=== PATIENT | male | born 1945 | race Caucasian/White ===

== ENCOUNTER 2023-05-19 08:14 | Outpatient (OUT) | payer MEDICARE, SELFPAY ==
[2023-05-19 10:02] LABS: Alanine Aminotransferase 73 U/L (16-63); Albumin Level 3.7 g/dL (3.4-5.0); Alkaline Phosphatase 58 U/L (46-116); Anion Gap 12.4; Aspartate Amino Transferase 28 U/L (15-37); BUN Creatinine Ratio 13.7; Bilirubin Total 0.7 mg/dL (0.2-1.0); Calcium 8.9 mg/dL (8.5-10.1); Carbon Dioxide 27.9 mmol/L (21.0-32.0); Chloride 98 mmol/L (98-107); Chol HDL Ratio 2.6; Cholesterol 135 mg/dL (<=200); Estimated GFR (African America 39 (>=60); Estimated GFR (Non-African Ame 32 (>=60); Globulin 3.8 g/dL; Glucose 109 mg/dL (74-106); HDL Cholesterol 51 mg/dL (40-60); LDL Cholesterol Calculated 61.2 mg/dL; Potassium 4.3 mmol/L (3.5-5.1); Sodium 134 mmol/L (136-145); Thyroid Stimulating Hormone 1.732 uIU/mL (0.358-3.740); Total Protein 7.5 g/dL (6.4-8.2); Triglycerides 114 mg/dL (<=150); VLDL CHOLESTEROL 22.8 mg/dL
== END 2023-05-19 08:15 | disposition home or self-care (01) ==
LOC: LAB 08:18
PROVIDERS: PCP Family Medicine; Visit Provider Family Medicine
DX: R25.1 Tremor, unspecified (principal); I10 Essential (primary) hypertension; E78.5 Hyperlipidemia, unspecified
CPT/HCPCS: 36415; 80053; 80061; 84443

== ENCOUNTER 2024-03-04 07:08 | Outpatient (RCR) | payer MEDICARE, SELFPAY ==
--- NOTE | 2024-01-07 09:39 | CR1_ITS ---
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
--- NOTE | 2024-01-11 13:30 | CR1_ITS ---
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
--- NOTE | 2024-02-09 08:46 | CR1_ITS ---
The 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
--- NOTE | 2024-02-09 13:26 | PC.NURSE ---
called and spoke with patient. stated he was seen in the er for dehydration and abnormal electrolytes after I fell down again. patient states he is using a walker but is feeling better and plans to be here tomorrow. will follow up again if patient does not attend.
--- NOTE | 2024-02-17 14:33 | PC.NURSE ---
Patient reported feeling light headed and dizzy this morning. Per his and his wifes report his blood pressure was 76/38 and he took his blood pressure medication following this result. Patient states he has not been feeling well and has had multiple falls lately. His states his systolic number is always less than 100. Patient's states she does not know which medications were for what, and so she was provided with a list of his medications per their last report, the dosage they provided and the purpose of the medication prior to them leaving today. I also called [facility] and left a voicemail with their staff for the doctor regarding his blood pressure, the medications and the patients request for parameters on when to hold the medication. Patient and will continue to monitor his blood pressures at home and keep a record.
--- NOTE | 2024-04-08 07:21 | CR1_ITS ---
The 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
--- NOTE | 2024-05-09 07:41 | CR1_ITS ---
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
--- NOTE | 2024-06-06 14:37 | PC.NURSE ---
called patients to follow up. She states he remains in [facility] at this [facility]. at this point we will discharge the patient and informed the patients spouse he is welcome to return if he gets discharged from the residential facility he just needs to call and schedule an orientation appointment
--- NOTE | 2024-06-06 14:51 | CR1_ITS ---
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
== END 2024-06-06 14:50 | disposition home or self-care (01) ==
LOC: CR 07:08
PROVIDERS: PCP Family Medicine; Visit Provider Internal Medicine Cardiovascular Disease
DX: I50.22 Chronic systolic (congestive) heart failure (principal); I25.2 Old myocardial infarction; I50.30 Unspecified diastolic (congestive) heart failure
CPT/HCPCS: 93798

== ENCOUNTER 2024-04-30 20:33 | Emergency (ER) | payer MEDICARE, SELFPAY ==
[2024-04-30] VITALS (26 sets, daily range): BP systolic 71–96; BP diastolic 38–50; PULSE 60–66; TEMP 39.2; O2SAT 85–99; BMI 31.6
--- NOTE | 2024-04-30 20:39 | CT_ITS ---
The [address] [address] Patient Name: SHAWNA GALVEZ MRN: [id number] date: 1945 Sex: M Assigned Patient Location: ER Current Patient Location: ER Accession/Order Number: [id number] Exam Date: 04/30/2024 21:35 Report Date: 04/30/2024 22:21 At the request of: ERIK JOHNS Procedure: CT abdomen pelvis w con EXAM: CT abdomen pelvis w con HISTORY: hypotension, perc-choley tube with blood COMPARISON: None. TECHNIQUE: Multiple axial images of the abdomen and pelvis are obtained following the administration of contrast material. Coronal and sagittal reformatted sequences are submitted FINDINGS: Tiny right pleural effusion is seen with bibasilar atelectasis. Mild cardiomegaly is seen. Percutaneous nephrostomy tube is seen in place. Mild gallbladder wall thickening/pericholecystic fluid is seen, suggestive of infectious/inflammatory process and cystitis. Mild high density is seen within the gallbladder which may represent sludge versus hemorrhagic products. Images through the abdomen are limited due to streak artifact liver, spleen, pancreas and bilateral adrenal glands appear grossly unremarkable. Low densities are seen in the right kidney, which can be better characterized with ultrasound, but which CT appearance can be seen with cystic structures. Bilateral kidneys demonstrate normal size, morphology and contrast enhancement. There is no evidence for hydronephrosis bilaterally. Bejarano catheter is seen within the nondistended urinary bladder. Mild wall thickening of the urinary bladder is suspected, which may represent mild inflammatory process. Please correlate clinically. Nonobstructive bowel pattern is seen. Normal-appearing appendix is visualized. Mild wall thickening of the ascending colon is seen, suspicious for mild colitis. Sigmoid diverticula are seen without significant associated inflammatory changes. No significant free fluid or abnormal fluid collection is seen in the abdomen and pelvis mild aortic and iliac arterial calcifications. Aneurysmal dilatation. Abdominal wall and visualized soft tissues appear unremarkable. No destructive osseous lesion is seen. Mild multilevel degenerative changes of the visualized thoracolumbar spine is seen. CT/CT abdomen pelvis w con IMPRESSION: Percutaneous nephrostomy tube is seen in place. Mild gallbladder wall thickening/pericholecystic fluid is seen, suggestive of infectious/inflammatory process and cystitis. Mild high density is seen within the gallbladder which may represent sludge versus hemorrhagic products. Bejarano catheter is seen within the nondistended urinary bladder. Mild wall thickening of the urinary bladder is suspected, which may represent mild inflammatory process. Please correlate clinically. Mild wall thickening of the ascending colon, suggestive of mild colitis. Sigmoid diverticulosis without CT evidence for diverticulitis. Tiny right pleural effusion with mild bibasilar atelectasis. Electronically authenticated by: CARINA NUR Date: 04/30/2024 22:21
--- NOTE | 2024-04-30 20:42 | ECG_ITS ---
The [facility] Test Date: 2024-04-30 Pat Name: SHAWNA GALVEZ Department: Room: - Gender: Male Circulation Manager: : 1945 Requested By: [id number] Order Number: [id number] Reading MD: MAX ANG Measurements Intervals E[place] Rate: 60 P: -60 NC: 196 QRS: 21 QRSD: 128 T: 150 QT: 374 QTc: 374 Interpretive Statements [id number] Electronic atrial pacemaker 57329 Electronic ventricular pacemaker 9120 atypical ECG Electronically Signed On 05-01-2024 7:54:53 EDT by MAX ANG
--- NOTE | 2024-04-30 20:51 | CT_ITS ---
The [address] [address] Patient Name: SHAWNA GALVEZ MRN: [id number] date: 1945 Sex: M Assigned Patient Location: ER Current Patient Location: ER Accession/Order Number: [id number] Exam Date: 04/30/2024 21:35 Report Date: 04/30/2024 22:15 At the request of: ERIK JOHNS Procedure: CT chest w con EXAM: CT chest w con HISTORY: hypotension COMPARISON: None. TECHNIQUE: Multiple axial images of the chest are obtained following the administration of IV contrast. Coronal and sagittal reformatted sequences are submitted FINDINGS: Mild cardiomegaly is seen. There is no evidence for pericardial effusion. Coronary arterial calcification is seen. Tiny right pleural effusion is seen. There is no evidence for pneumothorax. Atelectasis is seen no significant enlarged hilar, mediastinal or axillary adenopathy is The thoracic aorta is normal in course and caliber. Visualized. The visualized chest wall appears unremarkable. Mild multilevel degenerative changes of the thoracic spine is seen. CT/CT chest w con IMPRESSION: Tiny right pleural effusion is seen with bibasilar atelectasis. Electronically authenticated by: CARINA NUR Date: 04/30/2024 22:15
[2024-04-30] MEDS: ACETAMINOPHEN 650 MG RECTAL SUPPOSITORY PR (21:00)
[2024-04-30 21:14] LABS: Hemoglobin 11.6 g/dL (14.0-18.0); Mean Corpuscular HGB Conc 32.2 g/dL (29.9-35.2); Mean Corpuscular Hemoglobin 32.9 pg (25.9-34.0); Mean Platelet Volume 11.2 fL (9.5-13.5); Platelet Count 205 10^3/uL (150-450); Red Blood Count 3.53 10^6/uL (4.70-6.10); Red Cell Distribution Width 14.2 % (11.0-15.0); White Blood Count 17.2 10^3/uL (4.0-11.0)
[2024-04-30 21:31] LABS: ABG PCO2 34.5 mmHg (35.0-45.0); pH ABG 7.421 (7.350-7.450)
[2024-04-30 21:32] LABS: Allen Test POSITIVE (POSITIVE); HCO3 ABG 22.4 mmol/L (22.0-26.0); Liters per Minute 3L; O2 Mode Nasal cannula; Oxygen Saturation ABG 98.4 %; Puncture Site LR
[2024-04-30 21:32] LABS: INR 1.19; Partial Thromboplastin Time 27.1 sec (22.3-36.2); Prothrombin Time 12.4 sec (9.0-11.6)
--- NOTE | 2024-04-30 21:32 | ED.GENADUL1 ---
HPI HPI - General Adult General Chief complaint: GI Bleed Stated complaint: LOW BLOOD PRESSURE Time Seen by Provider: 04/30/24 20:37 Source information: EMS and report from nurse at the [facility] Mode of arrival: ambulance Limitations: other Limitations comment: Pt speaking very softly unable to hear History of Present Illness HPI narrative: 79-year-old male to the emergency department with chief complaint of hypotension, bleeding into his percutaneous cholecystostomy tube, fever. Patient has never been to this facility before. group home reported that he came from [facility] approximately 1 month ago. Patient cannot provide any history. Discharge summary from [facility] was obtained via [employer]. It paints the picture of a very sickly elderly male who was unable to undergo cholecystectomy due to his multiple medical comorbidities. He had a PCT placement on 03/22 with interventional radiology. His course was complicated by his severe heart failure and hypotension. He was placed SNF on a course of Augmentin for E. coli in the PCT bag. Past medical history: CKD stage IIIb. Hypertension, atrial fibrillation, CHF with ejection fraction 15 to 20%, CAD status post PCI, ischemic cardiomyopathy, COPD Related Data Home Medications ?Medication ?Instructions ?Recorded ?Confirmed amiodarone 200 mg tablet 200 mg PO ONCE 04/30/24 05/01/24 atorvastatin 80 mg tablet 80 mg PO BEDTIME 04/30/24 05/01/24 bumetanide 1 mg tablet 0.5 mg PO ONCE 04/30/24 05/01/24 carvedilol 25 mg tablet 12.5 mg PO .TWICE 04/30/24 05/01/24 clopidogrel 75 mg tablet 75 mg PO ONCE 04/30/24 05/01/24 empagliflozin 10 mg tablet 10 mg PO ONCE 04/30/24 05/01/24 (Jardiance) levothyroxine 50 mcg tablet 50 mcg PO ONCE 04/30/24 05/01/24 magnesium oxide 400 mg (241.3 mg 400 mg PO ONCE 04/30/24 05/01/24 magnesium) tablet mexiletine 150 mg capsule 150 mg PO TID 04/30/24 05/01/24 pantoprazole 40 mg tablet,delayed 40 mg PO TID 04/30/24 05/01/24 release sacubitril 97 mg-valsartan 103 mg 1 tab PO TID 04/30/24 05/01/24 tablet (Entresto) spironolactone 25 mg tablet 25 mg PO ONCE 04/30/24 05/01/24 acetaminophen 500 mg capsule 500 mg PO Q8H PRN prn 05/01/24 05/01/24 calcium carbonate (Tums) 200 mg PO TID PRN PRN 05/01/24 05/01/24 ipratropium 0.5 mg-albuterol 3 mg 0.5 - 3 ml inhalation Q4H PRN prn 05/01/24 05/01/24 (2.5 mg base)/3 mL nebulization soln melatonin 3 mg capsule 1 mg PO BEDTIME 05/01/24 05/01/24 mupirocin 2 % topical ointment 1 applic topical TID 05/01/24 05/01/24 ondansetron 4 mg disintegrating 4 mg PO Q8H PRN PRN 05/01/24 05/01/24 tablet tramadol 50 mg tablet 50 mg PO BID PRN PRN 05/01/24 05/01/24 Allergies Allergy/AdvReac Type Severity Reaction Status Date / Time No Known Drug Allergies Allergy Verified 04/30/24 21:25 Opioid HPI Opioid Management Most Recent Opioid Data: No Data to Display Review of Systems ROS Status of ROS unobtainable due to medical condition Exam Narrative Exam Narrative: VITALS: I have reviewed the triage vital signs. GENERAL: Chronically ill-appearing elderly male in no distress NEURO: Alert and oriented x1. Moves all extremities. Face is symmetric and expressive. EYES: PERRL. No scleral icterus or conjunctival injection. No discharge. HENT: Normocephalic, atraumatic. Hearing is grossly intact. Nares grossly patent and without discharge. Mucous membranes dry. NECK: No JVD. Patient moves neck without restriction. CARDIO: Rhythm regular. Normal rate. No murmur, rub, or gallop. Pulses equal bilaterally in the upper and lower extremity. No lower extremity edema. PULM: Lungs clear to auscultation in all gleason. No wheezes, rales, or rhonchi. No conversational dyspnea. No splinting, stridor, or accessory muscle use. GI/: Abdomen is soft and non-tender. Normoactive bowel sounds. PCT in RUQ, luna blood in the bag. EXTREMITIES: Symmetric muscle bulk. No joint swelling. No clubbing, cyanosis, or deformity. SKIN: Warm and dry. Normal turgor. No rash or lesions appreciated. PSYCH: Mood, affect, and interaction is appropriate to the setting. Constitutional Vital Signs, click to edit/add: Last Vital Signs Temp 102.5 F H 04/30/24 21:00 Pulse 60 05/01/24 05:00 Resp 19 05/01/24 05:00 BP 91/53 05/01/24 05:00 Pulse Ox 98 05/01/24 05:00 O2 Del Method Nasal Cannula 04/30/24 20:36 O2 Flow Rate 3 04/30/24 20:36 Course Vital Signs Vital signs: Vital Signs Temperature 102.6 F H 04/30/24 20:36 Pulse Rate 60 04/30/24 20:36 Respiratory Rate 14 04/30/24 20:36 Blood Pressure 71/39 L 04/30/24 20:36 Pulse Oximetry 96 04/30/24 20:36 Oxygen Delivery Method Nasal Cannula 04/30/24 20:36 Oxygen Delivery Flow Rate 3 04/30/24 20:36 Temperature 102.5 F H 04/30/24 21:00 Pulse Rate 60 05/01/24 05:00 Respiratory Rate 19 05/01/24 05:00 Blood Pressure 91/53 05/01/24 05:00 Pulse Oximetry 98 05/01/24 05:00 Oxygen Delivery Method Nasal Cannula 04/30/24 20:36 Oxygen Delivery Flow Rate 3 04/30/24 20:36 Medical Decision Making [facility] Narrative Medical decision making narrative: 79-year-old [facility] with fever, hypotension, altered mental status, blood in PCT. Hypotensive, febrile, otherwise stable vitals. EKG shows a paced rhythm, no evidence of ischemia. He is pale and diaphoretic. He does appear to be perfusing poorly. He is full code. Patient critically ill, concern for surgical abdomen. I know that the patient has CKD however the risks outweigh the benefits for IV contrast administration in the setting. He is full code. EMS had initiated a 1 L normal saline bolus on the patient. He was about fci through this liter upon arrival. Will continue with this 1 L bolus. He does have a significant leukocytosis at 17.2. His hemoglobin is at his baseline at 11.6. He has a mild lactic acidosis at 2.4. He has an elevated ALT AST alk phos and bilirubin. Troponin is normal. He is BNP is significantly elevated. Lipase is within normal limits. CT scan shows in place PCT. There is gallbladder wall thickening, pericholecystic fluid, amatory stranding. Hemorrhagic products in the gallbladder. Given his fever, altered mental status, septic shock I have concern for ascending cholangitis. Rocephin, Flagyl, vancomycin are ordered. Patient meets SIRS criteria. He had initial hypotension. Source is a ascending cholangitis. Sepsis fluid bolus was not given to this patient as he has a history of congestive heart failure and euvolemia is his goal which I believe he is at after 1L NS bolus. Early vasopressors were initiated with Levophed. Goal MAP 65. Sepsis tissue perfusion exam was performed at 2239. Levophed was titrated. Able to obtain MAP goals. Case was discussed via telephone with the braid pattern setter Dr. Georges at [facility] ICU. Patient was assigned bed however there is no critical care or ALS transport available in the region by flight or ground. Care was signed out to Dr. Naranjo while awaiting transport. Medical Records Medical records reviewed: Yes I reviewed the patient's medical records Lab Data Lab results reviewed: Yes I reviewed the patient's lab results Labs: Lab Results 04/30/24 04/30/24 05/01/24 Range/Units 20:38 21:00 00:05 WBC 17.2 H (4.0-11.0) 10^3/uL RBC 3.53 L (4.70-6.10) 10^6/uL Hgb 11.6 L (14.0-18.0) g/dL Hct 36.0 L (42.0-54.0) % MCV 102.0 H (80.0-94.0) fL MCH 32.9 (25.9-34.0) pg MCHC 32.2 (29.9-35.2) g/dL RDW 14.2 (11.0-15.0) % Plt Count 205 (150-450) 10^3/uL MPV 11.2 (9.5-13.5) fL Seg Neuts % (Manual) 95.0 H (43.0-75.0) Lymphocytes % (Manual) 1.0 L (20.5-60.0) % Monocytes % (Manual) 4.0 (1.7-12.0) % Eosinophils % (Manual) 0.0 L (0.9-7.0) % Basophils % (Manual) 0.0 L (0.2-2.0) % Neutrophils # (Manual) 16.34 H (1.4-6.5) 10^3/uL Lymphocytes # (Manual) 0.17 L (1.20-3.80) 10^3/uL Monocytes # (Manual) 0.68 (0.30-0.80) 10^3/uL Eosinophils # (Manual) 0.00 (0.00-0.70) 10^3/uL Basophils # (Manual) 0.00 (0.00-0.10) 10^3/uL PT 12.4 H (9.0-11.6) sec INR 1.19 APTT 27.1 (22.3-36.2) sec Puncture Site Lr ABG pH 7.421 (7.350-7.450) ABG pCO2 34.5 L (35.0-45.0) mmHg ABG pO2 101.0 H (80.0-100.0) mmHg ABG HCO3 22.4 (22.0-26.0) mmol/L ABG O2 Saturation 98.4 % ABG Base Excess -2.0 (-2.0-2.0) mmol/L Felipe Test Positive (POSITIVE) O2 Liters/Min 3l Sodium 135 L (136-145) mmol/L Potassium 3.6 (3.5-5.1) mmol/L Chloride 101 (98-107) mmol/L Carbon Dioxide 23.0 (21.0-32.0) mmol/L Anion Gap 14.6 BUN 24.0 H (7.0-18.0) mg/dL Creatinine 2.05 H (0.70-1.30) mg/dL Est GFR ( Amer) 38 L (>=60) Est GFR (Non-Af Amer) 32 L (>=60) BUN/Creatinine Ratio 11.7 Glucose 113 H (74-106) mg/dL Lactate 2.4 H* 2.2 H* (0.4-2.0) mmol/L Calcium 8.6 (8.5-10.1) mg/dL Total Bilirubin 2.0 H (0.2-1.0) mg/dL AST 218 H (15-37) U/L ALT 151 H (16-63) U/L Alkaline Phosphatase 174 H (46-116) U/L Troponin I High Sens 10.0 (4.0-76.1) pg/mL NT-Pro-B Natriuret Pep 2109.0 H* (<=1800.0) pg/mL Total Protein 5.8 L (6.4-8.2) g/dL Albumin 2.7 L (3.4-5.0) g/dL Globulin 3.1 g/dL Albumin/Globulin Ratio 0.9 Lipase 16.0 (16.0-77.0) U/L Urine Color (YELLOW) Urine Clarity (CLEAR) Urine pH (5.0-9.0) Ur Specific [place] (1.005-1.025) Urine Protein (NEG/TRACE) mg/dL Urine Glucose (UA) (NEGATIVE) mg/dL Urine Ketones (NEGATIVE) mg/dL Urine Occult Blood (NEGATIVE) Urine Nitrite (NEGATIVE) Urine Bilirubin (NEGATIVE) Urine Urobilinogen (0.2-1.0) EU/dL Ur Leukocyte Esterase (NEGATIVE) Urine RBC (0-2) #/HPF Urine WBC (NONE SEEN) #/HPF Ur Squamous Epith Cells (NONE/RARE) #/LPF Urine Crystals (None Seen) #/HPF Urine Bacteria (NONE SEEN) #/HPF Urine Casts (NONE SEEN) #/LPF Urine Mucus (NONE SEEN) Ur Culture Indicated? Blood Type A Positive Antibody Screen Negative 05/01/24 Range/Units 04:15 WBC (4.0-11.0) 10^3/uL RBC (4.70-6.10) 10^6/uL Hgb (14.0-18.0) g/dL Hct (42.0-54.0) % MCV (80.0-94.0) fL MCH (25.9-34.0) pg MCHC (29.9-35.2) g/dL RDW (11.0-15.0) % Plt Count (150-450) 10^3/uL MPV (9.5-13.5) fL Seg Neuts % (Manual) (43.0-75.0) Lymphocytes % (Manual) (20.5-60.0) % Monocytes % (Manual) (1.7-12.0) % Eosinophils % (Manual) (0.9-7.0) % Basophils % (Manual) (0.2-2.0) % Neutrophils # (Manual) (1.4-6.5) 10^3/uL Lymphocytes # (Manual) (1.20-3.80) 10^3/uL Monocytes # (Manual) (0.30-0.80) 10^3/uL Eosinophils # (Manual) (0.00-0.70) 10^3/uL Basophils # (Manual) (0.00-0.10) 10^3/uL PT (9.0-11.6) sec INR APTT (22.3-36.2) sec Puncture Site ABG pH (7.350-7.450) ABG pCO2 (35.0-45.0) mmHg ABG pO2 (80.0-100.0) mmHg ABG HCO3 (22.0-26.0) mmol/L ABG O2 Saturation % ABG Base Excess (-2.0-2.0) mmol/L Felipe Test (POSITIVE) O2 Liters/Min Sodium (136-145) mmol/L Potassium (3.5-5.1) mmol/L Chloride (98-107) mmol/L Carbon Dioxide (21.0-32.0) mmol/L Anion Gap BUN (7.0-18.0) mg/dL Creatinine (0.70-1.30) mg/dL Est GFR ( Amer) (>=60) Est GFR (Non-Af Amer) (>=60) BUN/Creatinine Ratio Glucose (74-106) mg/dL Lactate (0.4-2.0) mmol/L Calcium (8.5-10.1) mg/dL Total Bilirubin (0.2-1.0) mg/dL AST (15-37) U/L ALT (16-63) U/L Alkaline Phosphatase (46-116) U/L Troponin I High Sens (4.0-76.1) pg/mL NT-Pro-B Natriuret Pep (<=1800.0) pg/mL Total Protein (6.4-8.2) g/dL Albumin (3.4-5.0) g/dL Globulin g/dL Albumin/Globulin Ratio Lipase (16.0-77.0) U/L Urine Color Dk red A (YELLOW) Urine Clarity Cloudy A (CLEAR) Urine pH 5.0 (5.0-9.0) Ur Specific [place] 1.010 (1.005-1.025) Urine Protein Color interference A (NEG/TRACE) mg/dL Urine Glucose (UA) Color interference A (NEGATIVE) mg/dL Urine Ketones Color interference A (NEGATIVE) mg/dL Urine Occult Blood Color interference A (NEGATIVE) Urine Nitrite Color interference A (NEGATIVE) Urine Bilirubin Color interference A (NEGATIVE) Urine Urobilinogen Color interference A (0.2-1.0) EU/dL Ur Leukocyte Esterase Color interference A (NEGATIVE) Urine RBC >100 A (0-2) #/HPF Urine WBC 5-10 A (NONE SEEN) #/HPF Ur Squamous Epith Cells Rare (NONE/RARE) #/LPF Urine Crystals None seen (None Seen) #/HPF Urine Bacteria Trace A (NONE SEEN) #/HPF Urine Casts None seen (NONE SEEN) #/LPF Urine Mucus Trace A (NONE SEEN) Ur Culture Indicated? Yes Blood Type Antibody Screen Imaging Data CT scan - abdomen: Attestation: I have reviewed the pertinent imaging results. Radiologist's impression: ITS Impressions Abdomen/Pelvis CT 04/30/24 20:39 IMPRESSION: Percutaneous nephrostomy tube is seen in place. Mild gallbladder wall thickening/pericholecystic fluid is seen, suggestive of infectious/inflammatory process and cystitis. Mild high density is seen within the gallbladder which may represent sludge versus hemorrhagic products. Bejarano catheter is seen within the nondistended urinary bladder. Mild wall thickening of the urinary bladder is suspected, which may represent mild inflammatory process. Please correlate clinically. Mild wall thickening of the ascending colon, suggestive of mild colitis. Sigmoid diverticulosis without CT evidence for diverticulitis. Tiny right pleural effusion with mild bibasilar atelectasis. Electronically authenticated by: CARINA NUR Date: 04/30/2024 22:[address] 04/30/24 20:51 IMPRESSION: Tiny right pleural effusion is seen with bibasilar atelectasis. Electronically authenticated by: CARINA NUR Date: 04/30/2024 22:15 ECG Data Attestation: I personally reviewed and interpreted this ECG as follows: (Atrial paced. Rate of 60. Normal QTc. No STEMI. ) Critical Care Time Critical Care Time Critical Care Time: Yes Total Critical Care Time: 75 Attestation: Critical Care Procedure Note Authorized and Performed by: Eloy Gupta DO Total critical care time: 75 min Due to a high probability of clinically significant, life threatening deterioration, the patient required my highest level of preparedness to intervene emergently and I personally spent this critical care time directly and personally managing the patient. This critical care time included obtaining a history; examining the patient; pulse oximetry; ordering and review of studies; arranging urgent treatment with development of a management plan; evaluation of patient's response to treatment; frequent reassessment; and, discussions with other providers. This critical care time was performed to assess and manage the high probability of imminent, life-threatening deterioration that could result in multi-organ failure. It was exclusive of separately billable procedures and treating other patients and teaching time. Please see MDM section and the rest of the note for further information on patient assessment and treatment. Discharge Plan Discharge Chief Complaint: GI Bleed Clinical Impression: Ascending cholangitis, Septic shock, Chronic kidney disease, Congestive heart failure (CHF) Patient Disposition: [facility] Time of Disposition Decision: 22:34 Discharge Location: [facility] Discharge location: ICU Condition: Critical Mode of Transportation: Life Flight
[2024-04-30 21:39] LABS: Lymphocytes Absolute Manual 0.17 10^3/uL (1.20-3.80); Segmented Neut Absolute Manual 16.34 10^3/uL (1.4-6.5)
[2024-04-30 21:40] LABS: Monocytes Absolute Manual 0.68 10^3/uL (0.30-0.80)
[2024-04-30 21:42] LABS: Lactate/Lactic Acid 2.4 mmol/L (0.4-2.0)
[2024-04-30 21:44] LABS: Alanine Aminotransferase 151 U/L (16-63); Albumin Globulin Ratio 0.9; Albumin Level 2.7 g/dL (3.4-5.0); Alkaline Phosphatase 174 U/L (46-116); Anion Gap 14.6; Aspartate Amino Transferase 218 U/L (15-37); BUN Creatinine Ratio 11.7; Calcium 8.6 mg/dL (8.5-10.1); Chloride 101 mmol/L (98-107); Estimated GFR (African America 38 (>=60); Estimated GFR (Non-African Ame 32 (>=60); Globulin 3.1 g/dL; Glucose 113 mg/dL (74-106); Potassium 3.6 mmol/L (3.5-5.1); Sodium 135 mmol/L (136-145); Total Protein 5.8 g/dL (6.4-8.2)
[2024-04-30] MEDS: NOREPINEPHRINE BITARTRATE 4 MG in DEXTROSE 5 % IN WATER 250 ML 30.48 MG IV (22:13)
[2024-04-30] MEDS: CEFTRIAXONE 2,000 MG in 0.9 % SODIUM CHLORIDE 100 ML 200 MG IV (22:20)
[2024-04-30] MEDS: METRONIDAZOLE/SODIUM CHLORIDE 500 MG/100 ML PREMIX 100 MG IV (23:12)
[2024-05-01] VITALS (67 sets, daily range): BP systolic 73–115; BP diastolic 32–63; PULSE 60–67; TEMP 37.3; O2SAT 95–99
[2024-05-01 00:54] LABS: Lactate/Lactic Acid 2.2 mmol/L (0.4-2.0)
--- NOTE | 2024-05-01 01:17 | PC.NURSE ---
Bili bag dark red blood.
[2024-05-01] MEDS: VANCOMYCIN HCL 2,000 MG in 0.9 % SODIUM CHLORIDE 500 ML 250 MG IV (01:32)
[2024-05-01 04:34] LABS: Bilirubin Urine COLOR INTERFERENCE (NEGATIVE); Blood Urine COLOR INTERFERENCE (NEGATIVE); Clarity Urine CLOUDY (CLEAR); Color Urine DK RED (YELLOW); Glucose Urine UA COLOR INTERFERENCE mg/dL (NEGATIVE); Ketones Urine COLOR INTERFERENCE mg/dL (NEGATIVE); Leukocyte Esterase Urine COLOR INTERFERENCE (NEGATIVE); Nitrite Urine COLOR INTERFERENCE (NEGATIVE); Protein Urine COLOR INTERFERENCE mg/dL (NEG/TRACE); Urine Microscopic Indicated YES; Urobilinogen Urine COLOR INTERFERENCE EU/dL (0.2-1.0)
[2024-05-01 04:35] LABS: Bacteria Urine TRACE #/HPF (NONE SEEN); Cast Seen? NONE SEEN #/LPF (NONE SEEN); Crystals Seen? None Seen #/HPF (None Seen); Mucus Urine TRACE (NONE SEEN); RBC Urine >100 #/HPF (0-2); Squamous Epithelial Cell Urine RARE #/LPF (NONE/RARE); Urine Culture Indicated YES
[2024-05-01] MEDS: NOREPINEPHRINE BITARTRATE 4 MG in DEXTROSE 5 % IN WATER 250 ML 30.48 MG IV (05:33)
[2024-05-01] MEDS: MORPHINE SULFATE 2 MG/ML SYRINGE 1 MG IV (07:33)
[2024-05-01] MEDS: METRONIDAZOLE/SODIUM CHLORIDE 500 MG/100 ML PREMIX 100 MG IV (09:26)
[2024-05-01] MEDS: NOREPINEPHRINE BITARTRATE/D5W 4 MG/250 ML PREMIX 30 MG IV (10:31)
== END 2024-05-01 10:23 | disposition short-term general hospital (02) ==
PROVIDERS: Emergency Provider Student in an Organized Health Care Education/Training Program; PCP Family Medicine
DX: A41.9 Sepsis, unspecified organism (principal); R65.21 Severe sepsis with septic shock; K83.09 Other cholangitis; I13.0 Hypertensive heart and chronic kidney disease with heart failure and stage 1 through stage 4 chronic kidney disease, or unspecified chronic kidney disease; I50.9 Heart failure, unspecified; N18.32 Chronic kidney disease, stage 3b; I48.91 Unspecified atrial fibrillation; I25.10 Atherosclerotic heart disease of native coronary artery without angina pectoris; I25.5 Ischemic cardiomyopathy; I13.10 Hypertensive heart and chronic kidney disease without heart failure, with stage 1 through stage 4 chronic kidney disease, or unspecified chronic kidney disease; J44.9 Chronic obstructive pulmonary disease, unspecified
CPT/HCPCS: 36415; 36600; 71260; 74177; 80053; 81001; 82805; 83605; 83690; 83880; 84484; 85007; 85027; 85610; 85730; 86850; 86900; 86901; 87040; 87086; 93005; 96365; 96366; 96368; 96375; 99285; J0696; J1836; J2270; J3370; Q9967

== ENCOUNTER 2024-09-17 02:26 | Emergency (ER) | payer MEDICARE, SELFPAY ==
[2024-09-17 02:28] VITALS: BP 138/75; PULSE 69; TEMP 36.4; O2SAT 100; BMI 32.8
--- NOTE | 2024-09-17 02:34 | CT_ITS ---
The [address] [address] Patient Name: SHAWNA GALVEZ MRN: [id number] date: 1945 Sex: M Assigned Patient Location: ED.MAIN Current Patient Location: ED.MAIN Accession/Order Number: [id number] Exam Date: 09/17/2024 02:45 Report Date: 09/17/2024 04:54 At the request of: KARI WHITE Procedure: CT abdomen pelvis wo con EXAM: CT abdomen pelvis wo con HISTORY: upper abd pain COMPARISON: CT abdomen/pelvis dated 04/30/2024. TECHNIQUE: Routine CT abdomen/pelvis without intravenous contrast. FINDINGS: Minimal dependent atelectasis of both lung bases. Small calcified right middle lobe granuloma. Mild bilateral gynecomastia. The liver is unremarkable. Previous cholecystectomy. The common duct is normal size measuring 5.3 mm. There is a focus of gas within the common duct. There appears to be mild thickening of the wall of the common duct. Correlate with any clinical symptoms of a cholangitis. The pancreatic head and neck are mildly fatty infiltrated. The spleen and bilateral adrenal glands are unremarkable. There is mild cortical scarring along the contour of both kidneys. There are right renal cysts measuring 0.8 cm (20 Hounsfield units), 0.7 cm (16 Hounsfield units) and 1.1 cm (10 Hounsfield units). Nonobstructive bowel gas pattern with a large amount of stool within the colon. There are colonic diverticula, most numerous along the descending and sigmoid colon without diverticulitis. The appendix is unremarkable. The distal esophagus is unremarkable. There is gastric wall thickening. Correlate with clinical symptoms of a gastritis. The small bowel is normal caliber. Vasculature: Leads extending into the right atrium, right ventricle and coronary sinus. There are atheromatous calcifications. There is moderate atheromatous calcification along the abdominal aorta. The IVC is unremarkable. There is no free air, free fluid or abscess. There are no pathologically enlarged lymph nodes. The unopacified urinary bladder is unremarkable. The prostate gland is moderately enlarged. The bony structures are osteopenic. There is slight scoliosis. Stable compression fracture of the L1 vertebral body. Discogenic degenerative changes and paravertebral ossifications throughout the thoracolumbar spine. Facet arthritis along the lumbar spine. Degenerative changes at both hip joints. Scar within the subcutaneous tissues right anterior abdominal wall. Small focus of density containing a couple punctate calcifications within the subcutaneous tissues of the left anterior abdominal wall which most likely is related to previous subcutaneous injection. CT/CT abdomen pelvis wo con IMPRESSION: Nonobstructive bowel gas pattern with a large amount of stool within the colon. There are colonic diverticula, most numerous along the descending and sigmoid colon without diverticulitis. There is gastric wall thickening. Correlate with clinical symptoms of a gastritis. Previous cholecystectomy. The common duct is normal size measuring 5.3 mm however there appears to be mild thickening of the wall of the common duct and there is a punctate gas shadow within the common duct. Correlate with any clinical symptoms of a cholangitis. There is no free air, free fluid or abscess. There are right renal cysts measuring 0.8 cm, 0.7 cm and 1.1 cm. Leads extending into the right atrium, right ventricle and coronary sinus. Moderate atheromatous calcification along the abdominal aorta. The prostate gland is moderately enlarged. Correlate with clinical symptoms and PSA level. Stable compression fracture of the L1 vertebral body. Chronic osseous findings as otherwise described. Electronically authenticated by: JENNIFER MURILLO Date: 09/17/2024 04:54
--- NOTE | 2024-09-17 02:34 | ED.GENADUL1 ---
HPI HPI - General Adult General Chief complaint: Abdominal Pain Stated complaint: Abdominal Pain Time Seen by Provider: 09/17/24 02:31 Source: patient Mode of arrival: ambulance Limitations: no limitations History of Present Illness HPI narrative: Patient presents with chief complaint of dry heaves for several months and upper abdominal pain. He denies vomiting or diarrhea. He has a history of cholelithiasis and he underwent cholecystectomy for ascending cholangitis in April 2024. For about 6 months prior to that he had had a biliary stent according to his . Patient also has a history of chronic systolic heart failure he has an implanted cardiac defibrillator. He has a history of paroxysmal atrial fibrillation and hypothyroidism. He has been in a long term for about a year for generalized weakness and states that he is unable to ambulate. Related Data Home Medications ?Medication ?Instructions ?Recorded ?Confirmed pantoprazole 40 mg tablet,delayed 40 mg PO .QD 04/30/24 09/17/24 release sacubitril 97 mg-valsartan 103 mg 1 tab PO TID 04/30/24 09/17/24 tablet (Entresto) spironolactone 25 mg tablet 25 mg PO ONCE 04/30/24 09/17/24 acetaminophen 500 mg capsule 500 mg PO Q8H PRN prn 05/01/24 09/17/24 calcium carbonate (Tums) 200 mg PO TID PRN PRN 05/01/24 05/01/24 ondansetron 4 mg disintegrating 4 mg PO Q8H PRN PRN 05/01/24 09/17/24 tablet amiodarone 200 mg tablet mg 09/17/24 atorvastatin 80 mg tablet mg 09/17/24 bumetanide 1 mg tablet mg 09/17/24 clopidogrel 75 mg tablet mg 09/17/24 levothyroxine 50 mcg tablet mcg 09/17/24 loperamide 2 mg capsule mg 09/17/24 Allergies Allergy/AdvReac Type Severity Reaction Status Date / Time No Known Drug Allergies Allergy Verified 09/17/24 02:35 Opioid HPI Opioid Management Most Recent Opioid Data: Last Pain Scale 6 09/17/24 03:21 09/17/24 Review of Systems ROS Status of ROS 10 or more systems reviewed and unremarkable except as noted in history and below [facility] PFS Medical History GERD (gastroesophageal reflux disease) ?K21.9 - Gastro-esophageal reflux disease without esophagitis (ICD-10) Social History Little interest or pleasure in doing things: not at all Feeling down, depressed, or hopeless: not at all Exam Narrative Exam Narrative: Patient's vitals are reviewed and are stable. He does not appear acutely distressed. HEENT exam is normal to inspection. Neck is supple. Lung sounds are clear to auscultation bilaterally with good air entry. Heart has regular rate and rhythm. Abdomen soft with minimal epigastric tenderness. No abdominal masses are felt and there is no guarding or fluid wave. He does not have hepatosplenomegaly. There is no facial asymmetry and he moves all extremities actively. Skin is warm and dry and without pallor or icterus. Constitutional Vital Signs, click to edit/add: Last Vital Signs Temp 97.6 F 09/17/24 02:28 Pulse 69 09/17/24 02:28 Resp 14 09/17/24 02:28 BP 138/75 09/17/24 02:28 Pulse Ox 100 09/17/24 02:28 O2 Del Method Room Air 09/17/24 02:28 Course Vital Signs Vital signs: Vital Signs Temperature 97.6 F 09/17/24 02:28 Pulse Rate 69 09/17/24 02:28 Respiratory Rate 14 09/17/24 02:28 Blood Pressure 138/75 09/17/24 02:28 Pulse Oximetry 100 09/17/24 02:28 Oxygen Delivery Method Room Air 09/17/24 02:28 Temperature 97.6 F 09/17/24 02:28 Pulse Rate 69 09/17/24 02:28 Respiratory Rate 14 09/17/24 02:28 Blood Pressure 138/75 09/17/24 02:28 Pulse Oximetry 100 09/17/24 02:28 Oxygen Delivery Method Room Air 09/17/24 02:28 Medical Decision Making MDM Narrative Medical decision making narrative: CT scan of the abdomen pelvis was obtained without contrast and reports some mild thickening of the bile duct along with some air in the bile duct. This raises the possibility of cholangitis. Patient does not have fever or leukocytosis and his liver enzymes have pretty much normalized except for slight elevation in the AST. Bilirubin is also normal. I suspect this is a remnant from his cholecystectomy and not evidence of acute inflammation. There is also evidence of gastritis which seems more likely. He is already on Protonix 40 mg daily and my plan is to add Carafate 1 g 3 times daily dispense 30. Handwritten prescription provided. I recommend early follow-up after the weekend by his PCP and then GI workup. Patient is to return anytime for worsening symptoms. Lab Data Labs: Lab Results 09/17/24 09/17/24 Range/Units 03:00 04:46 WBC 7.8 (4.0-11.0) 10^3/uL RBC 3.44 L (4.70-6.10) 10^6/uL Hgb 11.7 L (14.0-18.0) g/dL Hct 35.3 L (42.0-54.0) % MCV 102.6 H (80.0-94.0) fL MCH 34.0 (25.9-34.0) pg MCHC 33.1 (29.9-35.2) g/dL RDW 14.9 (11.0-15.0) % Plt Count 236 (150-450) 10^3/uL MPV 11.7 (9.5-13.5) fL Neut % (Auto) 68.9 (43.0-75.0) % Lymph % (Auto) 16.0 L (20.5-60.0) % [place] % (Auto) 11.7 (1.7-12.0) % Eos % (Auto) 2.6 (0.9-7.0) % Baso % (Auto) 0.5 (0.2-2.0) % Neut # (Auto) 5.4 (1.4-6.5) 10^3/uL Lymph # (Auto) 1.2 (1.2-3.8) 10^3/uL [place] # (Auto) 0.9 H (0.3-0.8) 10^3/uL Eos # (Auto) 0.2 (0.0-0.7) 10^3/uL Baso # (Auto) 0.0 (0.0-0.1) 10^3/uL Abs Immat Gran (auto) 0.02 (0.00-0.03) 10^3/uL Imm/Tot Granulo (auto) 0.3 (0.0-0.5) % Sodium 139 (136-145) mmol/L Potassium 3.8 (3.5-5.1) mmol/L Chloride 102 (98-107) mmol/L Carbon Dioxide 29.1 (21.0-32.0) mmol/L Anion Gap 11.7 BUN 19.0 H (7.0-18.0) mg/dL Creatinine 1.38 H (0.70-1.30) mg/dL Est GFR ( Amer) >60 (>=60 mL/min/1.73m^2) Est GFR (Non-Af Amer) 50 L (>=60 mL/min/1.73m^2) BUN/Creatinine Ratio 13.8 Glucose 105 (74-106) mg/dL Lactate 2.0 (0.4-2.0) mmol/L Calcium 8.4 L (8.5-10.1) mg/dL Total Bilirubin 0.6 (0.2-1.0) mg/dL Direct Bilirubin 0.2 (0.0-0.2) mg/dL AST 40 H (15-37) U/L ALT 48 (16-63) U/L Alkaline Phosphatase 83 (46-116) U/L Total Protein 6.1 L (6.4-8.2) g/dL Albumin 3.0 L (3.4-5.0) g/dL Globulin 3.1 g/dL Albumin/Globulin Ratio 1.0 Lipase 43.0 (16.0-77.0) U/L Urine Color Yellow (YELLOW) Urine Clarity Clear (CLEAR) Urine pH 6.5 (5.0-9.0) Ur Specific [place] 1.010 (1.005-1.025) Urine Protein Negative (NEG/TRACE) mg/dL Urine Glucose (UA) >=1000 A (NEGATIVE) mg/dL Urine Ketones Negative (NEGATIVE) mg/dL Urine Occult Blood Negative (NEGATIVE) Urine Nitrite Negative (NEGATIVE) Urine Bilirubin Negative (NEGATIVE) Urine Urobilinogen 1.0 (0.2-1.0) EU/dL Ur Leukocyte Esterase Negative (NEGATIVE) Discharge Plan Discharge Chief Complaint: Abdominal Pain Clinical Impression: Gastritis Qualifiers: Gastritis type: unspecified gastritis Chronicity: unspecified Gastritis bleeding: without bleeding Qualified Code(s): K29.70 - Gastritis, unspecified, without bleeding Patient Disposition: Home, Self-Care Time of Disposition Decision: 05:32 Condition: Fair Mode of Transportation: EMS Prescriptions / Home Meds: No Action atorvastatin 80 mg tablet amiodarone 200 mg tablet bumetanide 1 mg tablet loperamide 2 mg capsule clopidogrel 75 mg tablet levothyroxine 50 mcg tablet spironolactone 25 mg tablet 25 mg PO ONCE pantoprazole 40 mg tablet,delayed release (DR/EC) 40 mg PO .QD Rx Instructions: [id number] & [id number] sacubitril-valsartan [Entresto] 97-103 mg tablet 1 tab PO TID acetaminophen 500 mg capsule 500 mg PO Q8H PRN (Reason: prn) ondansetron 4 mg tablet,disintegrating 4 mg PO Q8H PRN (Reason: PRN) calcium carbonate [Tums] 200 mg calcium (500 mg) tablet,chewable 200 mg PO TID PRN (Reason: PRN) Print Language: [place] Instructions: Gastritis (ED) Additional Instructions: Follow-up with PCP 2 days for reevaluation and further management as needed. Return for worsening symptoms. Watch for fever and worsening pain. Referrals: STEPHANIE NATION [Primary Care Provider] - 1 week Discharge Date/Time: 09/17/24 06:42
--- OUTSIDE RECORDS SUMMARY | 2024-09-17 02:36 | XMS_ITS | CCD ---
Author Organization [facility] Inform ion Partnership [facility] Care Team Providers Care Tone Cabinet Assembler Name Role Phone RANJAN QUILES Unavailable Unavailable FURHALEY, AGUS Unavailable Unavailable RANJAN QUILES Unavailable Unavailable FURLOSAUMYA, AGUS Unavailable Unavailable RANJAN QUILES Unavailable Unavailable RIOS, AGUS Unavailable Unavailable Agus Nation Unavailable Unavailable Unavailable DO Agus Nation Primary Care Provider MD Ranjan Quiles Attending Provider [phone] Unavailable Unavailable BELLA AVITIA Attending Unavailable HOLGER CARLOS Consulting Unavailable RIOS, DR AGUS Huang Primary Care Unavailable BELLA AVITIA Admitting Unavailable PASCALE, DR MATOS Attending Unavailable RIOS, DR AGUS Huang Primary Care Unavailable Jeff, DR Montejo Consulting Unavailable PASCALE, DR MATOS Admitting Unavailable HOLGER CARLOS Consulting Unavailable MD Kar Blanchard Other Provider AGUS NATION Primary Care Physician DO Agus Nation Primary Care Provider MD Kar Blanchard Attending Provider [phone] MD Ranjan Quiles Attending Provider [phone] MD Marli Fermin Other Provider Unavailable Unavailable DO Agus Nation Primary Care Provider MD Kar Blanchard Attending Provider MD Marli Fermin Other Provider [phone] MD Ranjan Quiles Attending Provider MD Rojelio Max Attending Provider MD Laureano Taylor Jr Emergency Provider MD Jennifer Mena Admit Provider MD Jennifer Mena Attending Provider DO Shakir Tsai Attending Provider Furlong, DO Agus Primary Care Provider [phone] MD Rose Ding Attending Provider Furlong, DO Agus Primary Care Provider DO Pino Rand Emergency Provider MD Hawa Sharma Admit Provider MD Luis Alfredo [facility] Other Provider MD Bro Henry Attending Provider DO Praful Yi Emergency Provider [phone] Rios, Dr. Agus Blevins Primary Care Unava ilable Rose Ding Attending Unavailable Rose Ding Referring Unavailable Rios, Dr. Agus Blevins Primary Care Unava ilable Quiles, Dr. Ranjan Euceda Attending Laura vailable Quiles, Dr. Ranjan Euceda Referring Laura vailable Quiles, Dr. Ranjan Euceda Attending Laura vailable Furhaley, Dr. Agus Blevins Primary Care Unava ilable Furranjitng, Dr. Agus Blevins Primary Care Unava ilable Furranjitng, Dr. Agus Blevins Primary Care Unava ilable Furhaley, Dr. Agus Blevins Primary Care Unava ilable Rios, Dr. Agus Blevins Primary Care Unava ilable Rios, Dr. Agus Blevins Primary Care Unava ilable Gianni, Dr. Rojelio New Attending Unava ilable Rios, Dr. Agus Blevins Primary Care Unava ilable Quiles, Dr. Ranjan Euceda Referring Laura vailable Quiles, Dr. Ranjan Euceda Attending Laura vailable Furlong, Dr. Agus Blevins Primary Care Unava ilable Furlong, Dr. Agus Blevins Primary Care Unava ilable Quiles, Dr. Ranjan Euceda Attending Laura vailable Quiles, Dr. Ranjan Euceda Referring Laura vailable Toña, Rose Attending Unavailable Toña, Rose Referring Unavailable Furlong, Dr. Agus Blevins Primary Care Unava ilable Furlong, Dr. Agus Blevins Primary Care Unava ilable Toña, Rose Attending Unavailable Quiles, Dr. Ranjan Euceda Referring Laura vailable Furlong, Dr. Agus Blevins Primary Care Unava ilable Furlong, Dr. Agus Blevins Primary Care Unava ilable Furlong, Dr. Agus Blevins Primary Care Unava ilable Furlong, Dr. Agus Blevins Primary Toy Unava ilable Furlong, Dr. Agus Blevins Primary Care Unava ilable Furlong, Dr. Agus Blevins Primary Care Unava ilable Kirk, Dr. Kohli Attending Unavaila ble Furlong, Dr. Agus Blevins Primary Care Unava ilable Gianni, Dr. Rojelio New Attending Unava ilable Furlong, Dr. Agus Blevins Primary Care Unava ilable Furlong, Dr. Agus Blevins Primary Toy Unava ilable Furlong, Dr. Agus Blevins Primary Care Unava ilable ARTEM Daley Emergency Provider MD Ranjan Quiles Attending Provider [place] , Agus Blevins [facility] Agus Blevins Primary Care Unava ilable Hdz, Dr. Cm Banegas Attending Unavailab le Toña, Dr. Rose Hendrix Attending Unavailab le Furlong, Dr. Agus Blevins Primary Care Unava ilable Toña, Dr. Rose Hendrix Admitting Unavailab le Furlong, Dr. Agus Blevins Primary Care Unava ilable Toña, Dr. Rose Hendrix Referring Unavailab le Toña, Dr. Rose Hendrix Attending Unavailab le Furlong, Dr. Agus Blevins Primary Care Unava ilable Toña, Dr. Rose Hendrix Attending Unavailab le Furlong, Dr. Agus Blevins Primary Care Albert Hdz, Dr. Cm Banegas Attending Unavailab le Furlong, Dr. Agus Blevins Primary Care Albert Hdz, Dr. Cm Banegas Attending Unavailab le Furlong, Dr. Agus Blevins Primary Care Albert Hdz, Dr. Cm Banegas Attending Unavailab le Furlong, DO Agus Primary Care Provider MD Ranjan Quiles Attending Provider [phone] MD Jyoti Chu Attending Provider LILLIAM Powers Emergency Provider Furlong DO, Agus G Primary Care Provider Furlong, DO Agus Primary Care Provider MD Kalie Sweet Attending Provider LARRY Nguyễn Attending Provider Furlong, DO Agus Primary Care Provider MD Kalie Sweet Attending Provider LARRY Nguyễn Attending Provider [facility] Attending Provider [phone] MD Darek Kelley Attending Provider Furlong, DO Agus Primary Care Provider DO Praful Yi Emergency Provider Furlong, DO Agus Primary Care Provider [phone] FURLONG, AGUS G Referring Unavailable FURLONG, AGUS G Primary Care Unavailable Furlong, DO Agus Primary Care Provider [phone] [facility] Zaina Attending Provider [phone] ARTEM Daley Emergency Provider ZAINA ELLINGTON Attending Unavailable ZAINA ELLINGTON Attending Unavailable FURLONG, AGUS G Referring Unavailable FURLONG, AGUS G Primary Care Unavailable FURLONG, AGUS G Attending Unavailable FURLONG, AGUS G Referring Unavailable FURLONG, AGUS G Primary Care Unavailable FURLONG, AGUS G Attending Unavailable FURLONG, AGUS G Referring Unavailable FURLONG, AGUS G Primary Care Unavailable LOIS NGUYỄN Attending Unavailable FURLONG, AGUS G Referring Unavailable FURLONG, AGUS G Primary Care Unavailable FURLONG, AGUS G Attending Unavailable FURLONG, AGUS G Referring Unavailable FURLONG, AGUS G Primary Care Unavailable FURLONG, AGUS G Attending Unavailable FURLONG, AGUS G Referring Unavailable FURLONG, AGUS G Primary Care Unavailable FURLONG, AGUS G Attending Unavailable FURLONG, AGUS G Referring Unavailable FURLONG, AGUS G Primary Care Unavailable LILLIAM Oneill Attending Provider Furlong, DO Agus Primary Care Provider [phone] DO Osvaldo Vizcarra Emergency Provider Inga Tsai, DO Ferreira Admit Provider Frings, DO Shakir Attending Provider [phone] Furlong, DO Agus Primary Care Provider [phone] DO Osvaldo Vizcarra Emergency Provider Inga Tsai, DO Shakir Admit Provider [phone] Frings, DO Shakir Attending Provider MD Darek Kelley Other Provider MD Perry Nails Other Provider Unavailable Primary Care Provider Unavailabl e LILLIAM Oneill Attending Provider Furlong Agus CASTANEDA Primary Care Provider Jyoti Chu Attending Unavailable Furlong Agus CASTANEDA Gen Primary Care Provider Rose Ding MD Unavailable Edgar MINER, Jacobo Unavailable [phone] FURLONG, AGUS BLEVINS Primary Care Unavailab ESCOBAR Moody Referring Unavailable ESCOBAR GIVENS Attending Unavailable VERNON, AGUS GEN Primary Care Unavailab PEPPER Armenta Referring Unavailable ANNA JAQUES HOSPITALLO, AGUS GEN Primary Care Unavailab le CHAUDHURY, JACOBO Referring Unavailable CHAUDHURY JACOBO Attending Unavailable VERNON, AGUS GEN Primary Care Unavailab le EDGAR, JACOBO Referring Unavailable ESCOBAR GIVENS Attending Unavailable SHAKIR TSAI R Referring Unavailable ANNA JAQUES HOSPITALLO, AGUS GEN Primary Care Unavailab le FURLONG, AGUS GEN Primary Care Unavailab le ESCOBAR GIVENS Referring Unavailable JUAN PABLO, HAMMAD Z Referring Unavailable ANNA JAQUES HOSPITALLO, AGUS GEN Primary Care Unavailab le JUAN PABLO HAMMAD Z Referring Unavailable [facility] Primary [facility] Unavailab BRAD Lawrence Attending Unavailable BRAD ZAYAS Admitting Unavailable [facility] Primary Care Unavailab ESCOBAR Moody Attending Unavailable ESCOBAR GIVENS Admitting Unavailable ESCOBAR GIVENS Referring Unavailable VERNON, AGUS GEN Primary Care Unavailab le JUAN PABLO, HAMMAD Z Referring Unavailable [facility] Primary Care Unavailab le JUAN PABLO, HAMMAD Z Referring Unavailable VERNON, AGUS GEN Primary Care Unavailab le JUAN PABLO, HAMMAD Z Referring Unavailable ESCOBAR GIVENS Attending Unavailable VERNON, AGUS GEN Primary Care Unavailab le ESCOBAR GIVENS Admitting Unavailable HENRY SOUTH Referring Unavailable SHAKIR TSAI Referring Unavailable SALO LARIOS Attending Unavailable SALO LARIOS Admitting Unavailable VERNON, AGUS GEN Primary Care Unavailab ASHLEY Shah Attending Unavailable ZA SU Admitting Unavailable ERIK JOHNS Referring Unavailable ESCOBAR GIVENS Attending Unavailable VERNON, AGUS GEN Primary Care Unavailab ESCOBAR Moody Admitting Unavailable RANJAN BRYANT Referring Unavailable [facility] Primary Care Unavailab le KISHA MAHONEY Referring Unavailable RANJAN QUILES Attending Unavailable ANNA JAQUES [facility] Primary Care Unavailab le RANJAN QUILES Attending Unavailable ANNA JAQUES [facility] Primary Care Unavailab le RANJAN QUILES Attending Unavailable RANJAN QUILES Referring Unavailable FURLONG, AGUS GEN Primary Care Unavailab le RANJAN QUILES Attending Unavailable RANJAN QUILES Referring Unavailable FURLONG, AGUS GEN Primary Care Unavailab le Furlong DO, Agus Primary Care Provider [phone] Rand DO, Pino Emergency Provider Tani Solano DO Admit Provider Tani Solano DO Attending Provider Furlong DO, Agus Primary Care Provider [phone] Rand DO, Pino Emergency Provider Tani Solano DO Admit Provider [phone] Kalie Sweet MD Other Provider [phone] Trina SNELL, Taty Other Provider Unavailable Naga Archer DO Other Provider Ranjan Quiles MD Other Provider [phone] Rojelio Max MD Other Provider Kirk MINER, Kamilla Other Provider [phone] Dewayne Perez MD Other Provider Lucille Lopez APRN Other Provider Ora Orellana MD Other Provider Christoph MINER, Michael Viera Other Provider Melissa Yeboah MD Other Provider Hanna [facility], Kecia Marte Other Provider Marli Fermin MD Attending Provider [phone] Lois Nguyễn Attending Unavailable Furlong, Agus Primary Care Unavailable Juan Pablo, Lois Admitting Unavailable Windnagel, Zaina Admitting Unavailable Windnagel, Zaina Attending Unavailable Furlong, Agus Primary Care Unavailable Windnagel, Zaina Attending Unavailable Furlong, Agus Primary Care Unavailable Windnagel, Zaina Admitting Unavailable Furlong, Agus Primary Care Unavailable Darek Kelley Attending Unavailable Darek Kelley Admitting Unavailable Furlong, Agus Primary Care Unavailable Praful Yi Attending Unavailable Praful Yi Admitting Unavailable Furlong, Agus Primary Care Unavailable Preston Daley Attending Unavailable Preston Daley Admitting Unavailable Furlong, Agus Primary Care Unavailable Darek Kelley Admitting Unavailable Darek Kelley Attending Unavailable Furlong, Agus Primary Care Unavailable Turovskaya, Barbara Admitting Unavailable Turovskaya, Barbara Attending Unavailable Furlong, Agus Primary Care Unavailable Turovskaya, Barbara Attending Unavailable Turovskaya, Barbara Admitting Unavailable Furlong, Agus Primary Care Unavailable Kalie Sweet Consulting Unavailable Marli Fermin Attending Unavailable Tani Solano Admitting Unavailable Taty Mena Consulting Unavailable Naga Archer Consulting Unavailable QuilesRanjan lacey Consulting Unavailable Rojelio Max Consulting Unavail able Kamilla Bradley Consulting Unavailable Dewayne Perez Consulting Unavailab Lucille Baer Consulting Unavailable Ora Orellana Consulting Unavailable Michael Hawthorne Consulting Unavailab Melissa Gipson Consulting Unavailable Kecia Cary Consulting Unavailable Shakir Tsai Attending Unavailable Furlong, Agus Primary Care Unavailable Darek Kelley Consulting Unavailable Shakir Tsai Admitting Unavailable Perry Nails Consulting Unavailable Allergies Allergy Classification Reported Allergen(s) Allergy Type Date of Onset Reaction(s) Facility (9 sources) Hmg-Coa Reductase Inhibitors (Statins); Translations: [Statins] Allergy to drug (finding) [facility] 250 DO Work Phone: (20 sources) Simvastatin; Translations: [Zocor] Drug Allergy Diarrhea [facility] 250 DO Work Phone: (20 sources) Adhesive agent; Translations: [ADHESIVE] Propensity to adverse reactions to drug (disorder) 8 [facility] (1 source) No Known Medication Allergies; Translations: [No Known Medication Allergies] Propensity to adverse reactions (disorder) [facility] Repository Medications Current Medications Medication Drug Class(es) Dates Sig (Normalized) Sig (Original) acetaminophen 325 mg oral capsule (18 sources) Start: 09-01-2024 take 2 capsules by mouth every four to six hours as needed for pain Acetaminophen 325 mg capsule Active 650 MG PO EVERY 4-6 HOURS as needed for fever or pain September 01, 2024 12:00am Start: 05-10-2024 End: 07-08-2024 take 2 tablets by mouth every eight hours as needed acetaminophen (TYLENOL) 500 mg tablet Take 2 tablets by mouth every 8 hours as needed for pain. 05/10/2024 07/08/2024 Discontinued Start: 03-31-2024 take 2 tablets by mo [facility] every eight hours as needed acetaminophen (TYLENOL) 500 mg tablet Take 2 tablets by mouth every 8 hours as needed for pain. 03/31/2024 Suspended acetaminophen (T ylenol) 500 mg tablet Take by mouth every 6 hours if needed for mild pain (1 - 3). Active ascorbic acid 200 mg / beta carotene 1000 unt / cuprous oxide 2 mg / dl-alpha tocopheryl acetate 60 unt / lutein 2 mg / sodium selenate 0.055 mg / zinc oxide 40 mg oral tablet (20 sources) Vitamin C Start: 03-20-2023 End: 09-12-2024 take 1 tablet by mouth in the morning vit A,C and E-mlcrxr-rowhflym (EYE HEALTH PLUS LUTEIN) 300 mcg-200 mg-27 mg-2 mg tablet Take 1 tablet by mouth in the morning. 30 tablet 2 09/12/2024 Active Aspir 81 (5 sources) Start: 05-02-2019 take 1 mg by mouth once daily Aspir 81 mg, Oral, Daily, Refills(s) 0 Start Date: 05/02/19 Status: Ordered aspirin 81 mg delayed release oral tablet (20 sources) Platelet Aggregation Inhibitor, Nonsteroidal Anti-inflammatory Drug Start: 05-10-2024 take 1 tablet by mouth once daily aspirin 81 mg chewable tablet Take 1 tablet by mouth once daily. 05/10/2024 Suspended Start: 11-15-2017 End: 09-12-2024 take 1 tablet by mouth in the morning aspirin 81 mg Take 1 tablet (81 mg total) by mouth in the morning. 150 tablet 2 03/20/2023 09/12/2024 Discontinued (Reorder) take 1 tablet by alysia once daily aspirin 81 mg chewable tablet Take 81 mg by mouth once daily. Suspended biotin 5 mg oral capsule (20 sources) Start: 09-02-2019 take 1 capsule by mouth in the morning biotin (BIOTIN) 5 mg capsule Take 1 capsule (5 mg total) by mouth in the morning. 30 capsule 03/20/2023 Active Start: 05-02-2019 take 1 tablet by alysia th once daily biotin 5000 mcg oral tablet, disintegrating microgram tab(s), Oral, Daily, Refills(s) 0 Start Date: 05/02/19 Status: Ordered End: 05-27-2024 take 1 tablet by mouth once daily biotin 5 mg tablet Take 1 tablet (5 mg) by mouth once daily. 05/27/2024 Discontinued (Discontinued by another clinician) take 1 tablet by alysia th once daily Biotin 5000 MCG Oral Tablet Take 1 tablet daily Quantity: 0 Refills: 0 Ordered: 19-Jun-2022 DO Active Biotin 5000 MCG Oral Tablet TAKE DIRECTED. Quantity: 0 Refills: 0 Ordered: 13-Jun-2021 DO Active calcium ascorbate 500 mg oral tablet (8 sources) Start: 02-19-2024 take 1 tablet by mouth once daily Ascorbate Calcium (Vitamin C) 500 mg tablet Active 500 MG PO Daily February 18, 2024 11:00pm carvedilol 3.125 mg oral tablet (20 sources) alpha-Adrenergi c Toi, beta-Adrenergic Toi Start: 09-12-2024 take 1 tablet by mouth in the morning, then take 1 tablet by mouth at bedtime carvediloL (COREG) 3.125 mg tablet Take 1 tablet (3.125 mg total) by mouth in the morning and 1 tablet (3.125 mg total) before bedtime. 60 tablet 2 09/12/2024 Active Start: 09-05-2024 take 1 tablet by alysia th twice daily at mealtime Carvedilol 3.125 mg Tablet Active 3.125 MG PO Twice daily with meals 60 September 05, 2024 12:00am Start: 05-27-2024 End: 09-12-2024 take 1.5 tablets by mouth in the morning, then take 1.5 tablets by mouth at bedtime carvediloL (COREG) 12.5 mg tablet Take 1.5 tablets (18.75 mg total) by mouth in the morning and 1.5 tablets (18.75 mg total) before bedtime. 06/02/2024 09/12/2024 Discontinued (Dose adjustment) Start: 02-19-2024 End: 09-05-2024 take 6.25 mg by mouth twice daily Carvedilol 12.5 mg tablet Discontinued 6.25 MG PO Twice daily February 18, 2024 11:00pm September 05, 2024 2:51pm FreeTextSig: Orally; Note: Source Status: Taking; Provider: Agata Pringle ( ) Start: 02-18-2024 End: 02-17-2025 take 0.5 tablet by mouth twice daily carvedilol (Coreg) 25 mg tablet Indications: Essential hypertension, benign Take 0.5 tablets (12.5 mg) by mouth 2 times a day. 02/18/2024 08/15/2024 Discontinued (Duplicate order) Start: 09-06-2023 take 1 tablet by alysia th twice daily carvediloL (COREG) 6.25 mg tablet take 1 tablet orally twice a day 09/06/2023 Active Start: 04-17-2023 End: 02-19-2024 take 4 tablets by mouth twice daily Carvedilol 6.25 mg tablet Discontinued 25 MG PO Twice daily April 17, 2023 11:23am February 19, 2024 10:06am Start: 04-17-2023 End: 02-19-2024 take 25 mg by mouth twice daily Carvedilol Discontinue d 25 MG PO Twice daily April 17, 2023 12:23pm February 19, 2024 11:06am Start: 03-13-2023 End: 04-17-2023 take 1 tablet by mouth twice daily Carvedilol 6.25 mg Tablet Discontinued 6.25 MG PO Twice daily 60 March 12, 2023 11:00pm April 17, 2023 11:23am Start: 06-13-2021 End: 06-02-2024 take 1 tablet by mouth twice daily at mealtime Carvedilol 25 mg tablet Discontinued 25 MG PO Twice daily December 10, 2023 11:00pm February 19, 2024 10:06am must administer with a meal/food Start: 11-15-2017 End: 08-13-2022 take 1 tablet by mouth twice daily at mealtime Carvedilol 12.5 mg tablet Discontinued 12.5 MG PO Twice daily with meals November 14, 2017 11:00pm August 13, 2022 11:32am famotidine 20 mg oral tablet (20 sources) Histamine-2 Receptor Antagonist Start: 08-27-2023 End: 09-12-2024 take 1 tablet by mouth in the morning, then take 1 tablet by mouth at bedtime famotidine (PEPCID) 20 mg tablet Take 1 tablet (20 mg total) by mouth in the morning and 1 tablet (20 mg total) before bedtime. 60 tablet 2 09/12/2024 Active Fish Oils (5 sources) Start: 05-02-2019 Fish Oil Oral, Refill(s) 0 Start Date: 05/02/19 Status: Ordered loperamide hydrochloride 2 mg oral capsule (3 sources) Opioid Agonist Start: 09-01-2024 take 1 capsule by mouth every four to six hours as needed Loperamide 2 mg capsule Active 2 MG PO EVERY 4-6 HOURS as needed for loose stool September 01, 2024 12:00am take 1 capsule by mo [facility] four times daily as needed for diarrhea loperamide (Imodium) 2 mg capsule Take 1 capsule (2 mg) by mouth 4 times a day as needed for diarrhea. Active Magnesium Hydroxide (2 sources) Start: 09-01-2024 take 1 mL by mouth o nce daily as needed for constipation Magnesium Hydroxide (Dulcolax (Magnesium Hydroxide)) 400 mg/5 mL suspension Active 30 ML PO Daily as needed for constipation September 01, 2024 12:00am magnesium oxide 400 mg oral tablet (20 sources) Start: 04-01-2023 End: 07-22-2025 take 1 tablet by mouth in the morning magnesium oxide (MAGOX) 400 mg tablet Take 1 tablet (400 mg total) by mouth in the morning. 30 tablet 2 09/12/2024 Active melatonin 3 mg oral tablet (20 sources) Start: 09-01-2024 take 1 mg by mouth o nce daily at bedtime Melatonin 3 mg capsule Active 1 MG PO Daily at bedtime September 01, 2024 12:00am Start: 05-10-2024 [facility] at [facility] melatonin 1 mg tablet Take 1 tablet by mouth daily at bedtime. 05/10/2024 Suspended Start: 03-31-2024 take 1 tablet by alysia th once daily at bedtime melatonin 1 mg tablet Take 1 tablet by mouth daily at bedtime. 03/31/2024 Suspended melatonin 1 mg t ablet,chewable Chew. Active methIMAzole 10 mg oral tablet (14 sources) Thyroid Hormone Synthesis Inhibitor Start: 05-02-2021 take 1 mg by mouth every eight hours methimazole 10 mg Tab mg tab(s), Oral, q8hr, Refills(s) 0 Start Date: 05/02/21 Status: Ordered take 1 tablet by alysia th three times daily methIMAzole 10 MG Oral Tablet TAKE 1 TAB LET 3 TIMES DAILY. Quantity: 0 Refills: 0 Ordered: 13-Jun-2021 DO Active mexiletine hydrochloride 150 mg oral capsule (20 sources) Antiarrhythmic Start: 04-01-2023 End: 01-27-2025 take 1 capsule by mouth three times daily mexiletine (MEXITIL) 150 mg capsule Take 1 capsule (150 mg total) by mouth 3 (three) times a day. 90 capsule 2 09/12/2024 Active Nitro 0.4 mg Tab (4 sources) Start: 04-30-2020 Nitro 0.4 mg T ab = 1 tab(s), SubLingual, PRN Chest pain Start Date: 04/30/20 Status: Ordered [place] 5-Mvf-Nnw-Fish Oil (Fish Oil) 1,000 mg (120 mg-180 mg) Capsule (20 sources) Start: 09-02-2019 take 1 capsule by mouth once daily [place] 4-Bwh-Fro-Fish Oil (Fish Oil) 1,000 mg (120 mg-180 mg) Capsule Active 1 CAP PO Daily September 02, 2019 5:43pm Start: 09-02-2019 End: 02-19-2024 take 1 capsule by mouth twice daily [place] 0-Soc-Flb-Fish Oil (Fish Oil) 1,000 mg (120 mg-180 mg) Capsule Discontinued 1 CAP PO Twice daily September 02, 2019 12:00am February 19, 2024 10:10am Start: 09-02-2019 End: 02-19-2024 take 1 capsule by mouth twice daily [place] 9-Oyq-Anu-Fish Oil (Fish Oil) 1,000 mg (120 mg-180 mg) Capsule Discontinued 1 CAP PO Twice daily September 02, 2019 1:00am February 19, 2024 11:10am Start: 09-02-2019 take 1 capsule by mo uth twice daily [place] 8-Etf-Mhi-Fish Oil (Fish Oil) 1,000 mg (120 mg-180 mg) Capsule Active 1 CAP PO Twice daily September 02, 2019 1:00am Start: 09-02-2019 take 1 capsule by mo uth twice daily [place] 2-Lar-Vhj-Fish Oil (Fish Oil) 1,000 mg (120 mg-180 mg) Capsule Active 1 CAP PO Twice daily September 02, 2019 12:00am Start: 09-02-2019 take 1 capsule by mo uth once daily [place] 8-Fwq-Zts-Fish Oil (Fish Oil) 1,000 mg (120 mg-180 mg) Capsule Active 1 CAP PO Daily September 02, 2019 1:00am omega 3-lez-sag-fish oil 60-90-500 mg capsule,delayed release(DR/EC) (20 sources) Start: 09-12-2024 take 1 capsule by mouth in the morning omega 5-qgt-dhy-fish oil 60-90-500 mg capsule,delayed release(DR/EC) Take 1 capsule by mouth in the morning and 1 capsule before bedtime. 09/12/2024 Active Start: 03-20-2023 End: 09-12-2024 take 1 capsule by mouth in the morning omega 7-nsm-tbj-fish oil 60-90-500 mg capsule,delayed release(DR/EC) Take 1 capsule by mouth in the morning and 1 capsule before bedtime. 100 capsule 03/20/2023 09/12/2024 Discontinued (Reorder) Start: 03-20-2023 take 1 capsule by mo uth in the morning omega 2-pck-pcl-fish oil 60-90-500 mg capsule,delayed release(DR/EC) Take 1 capsule by mouth in the morning and 1 capsule before bedtime. 100 capsule 03/20/2023 Active Start: 03-20-2023 take 1 capsule by mo uth in the morning omega 4-rog-rid-fish oil 60-90-500 mg capsule,delayed release(DR/EC) Take 1 capsule by mouth in the morning and 1 capsule before bedtime. 100 capsule 0 03/20/2023 Active ondansetron 4 mg disintegrating oral tablet (18 sources) Serotonin-3 Receptor Antagonist Start: 09-01-2024 Ondansetron 4 mg tablet,disintegrating Active 4 MG TRANSLINGU Every 4 hours as needed for nausea and vomiting September 01, 2024 12:00am Start: 05-10-2024 End: 07-08-2024 take 4-8 mg by mouth every eight hours as needed ondansetron orally disintegrating (ZOFRAN ODT) 4 mg disintegrating tablet Take 1-2 tablets by mouth every 8 hours as needed for nausea/vomiting. 05/10/2024 07/08/2024 Discontinued Start: 03-31-2024 take 4-8 mg by mouth every eight hours as needed ondansetron orally disintegrating (ZOFRAN ODT) 4 mg disintegrating tablet Take 1-2 tablets by mouth every 8 hours as needed for nausea/vomiting. 03/31/2024 Suspended take 1 tablet by alysia th every eight hours as needed ondansetron (Zofran) 4 mg tablet Take 1 tablet (4 mg) by mouth every 8 hours if needed for nausea or vomiting. Active oxyCODONE hydrochloride 5 mg oral tablet (2 sources) Opioid Agonist Start: 07-28-2024 End: 08-02-2024 take 1 tablet by mouth every six hours as needed for pain oxyCODONE (ROXICODONE) 5 mg immediate release tablet Indications: S/P cholecystectomy , Choledocholithiasis Take 1 tablet (5 mg total) by mouth every 6 (six) hours as needed for pain for up to 5 days. Max Daily Amount: 20 mg 20 tablet 07/28/2024 08/02/2024 Active take 1 capsule by mo [facility] every four hours as needed oxyCODONE (Oxy-IR) 5 mg immediate releas e capsule Take 1 capsule (5 mg) by mouth every 4 hours if needed for severe pain (7 - 10). Active pantoprazole 40 mg delayed release oral tablet (20 sources) Proton Pump Inhibitor Start: 09-12-2024 take 1 tablet by mouth in the morning pantoprazole (PROTONIX) 40 mg EC tablet Take 1 tablet (40 mg total) by mouth in the morning. 30 tablet 2 09/12/2024 Active Start: 05-10-2024 take 1 tablet by alysia th twice daily pantoprazole DR (PROTONIX) 40 mg tablet Take 1 tablet by mouth two times a day. 05/10/2024 Suspended Start: 02-19-2024 take 1 tablet by alysia th once daily Pantoprazole 40 mg tablet,delayed release (DR/EC) Active 40 MG PO Daily February 19, 2024 10:14am Start: 10-20-2023 End: 02-19-2024 take 1 tablet by mouth twice daily Pantoprazole 40 mg tablet,delayed release (DR/EC) Discontinued 40 MG PO Twice daily 60 November 20, 2023 1:46pm February 19, 2024 10:15am Start: 09-18-2023 End: 09-12-2024 take 1 tablet by mouth once daily in the morning pantoprazole (PROTONIX) 20 mg EC tablet take 1 tablet by mouth every morning 30 tablet 1 11/09/2023 09/12/2024 Discontinued (Dose adjustment) Start: 09-18-2023 End: 08-15-2024 take 2 tablets by mouth twice daily pantoprazole (ProtoNix) 20 mg EC tablet Take 2 tablets (40 mg) by mouth 2 times a day. 09/18/2023 08/15/2024 Discontinued (Therapy completed) Start: 09-18-2023 take 1 tablet by alysia th twice daily pantoprazole (ProtoNix) 20 mg EC tablet Take 1 tablet (20 mg) by mouth 2 times a day. 09/18/2023 Active sacubitril 24 mg / valsartan 26 mg oral tablet (20 sources) Angiotensin 2 Receptor Toi Start: 09-12-2024 take 1 tablet by mouth in the morning sacubitriL-valsartan (ENTRESTO) 24-26 mg tablet Take 1 tablet by mouth in the morning and 1 tablet before bedtime. 60 tablet 2 09/12/2024 Active Start: 09-05-2024 take 1 tablet by alysia th twice daily Sacubitril-Valsartan (Entresto) 24-26 mg Tablet Active 1 TAB PO Twice daily 60 September 05, 2024 12:00am Start: 02-15-2024 End: 09-12-2024 take 1 tablet by mouth in the morning sacubitriL-valsartan (ENTRESTO) 49-51 mg tablet Take 1 tablet by mouth in the morning and 1 tablet before bedtime. 02/15/2024 09/12/2024 Discontinued (Dose adjustment) Start: 10-01-2023 End: 09-30-2024 take 1 tablet by mouth twice daily Sacubitril-Valsartan (Entresto) 49-51 mg tablet Discontinued 1 TAB PO Twice daily February 18, 2024 11:00pm September 05, 2024 2:53pm FreeTextSig: Orally; Note: Source Status: Taking; Provider: Agata Pringle ( ) Start: 05-26-2023 End: 05-25-2024 take 1 tablet by mouth in the morning, then take 1 tablet by mouth at bedtime, then take 1 tablet by mouth in the morning, then take 2 tablets by mouth in the evening sacubitriL-valsartan (ENTRESTO) 24-26 mg tablet Take 1 tablet by mouth in the morning and 1 tablet before bedtime. 1 in AM and 2 in PM. 05/26/2023 05/25/2024 Active Start: 11-25-2022 End: 05-25-2024 take 1 tablet by mouth twice daily Sacubitril-Valsartan (Entresto) 24-26 mg Tablet Discontinued 1 TAB PO Twice daily 60 November 24, 2022 11:00pm February 19, 2024 10:09am Start: 11-15-2017 End: 11-25-2022 take 1 tablet by mouth twice daily Sacubitril-Valsartan (Entresto) 97-103 mg Tablet Discontinued 1 TAB PO Twice daily September 02, 2019 12:00am November 25, 2022 2:38pm saliva substitute combo no.9 (BIOTENE DRY MOUTH ORAL RINSE) mouthwash (11 sources) Start: 09-12-2024 saliva substit barrow combo no.9 (BIOTENE DRY MOUTH ORAL RINSE) mouthwash Swish and spit 15 mL as needed (dry mouth). 473 mL 1 09/12/2024 Active Start: 06-22-2024 End: 09-12-2024 saliva substitute combo no.9 (BIOTENE DRY MOUTH ORAL RINSE) mouthwash Swish and spit 15 mL as needed (dry mouth). 473 mL 1 06/22/2024 09/12/2024 Discontinued (Reorder) Start: 06-22-2024 saliva substit barrow combo no.9 (BIOTENE DRY MOUTH ORAL RINSE) mouthwash Swish and spit 15 mL as needed (dry mouth). 473 mL 1 06/22/2024 Active Sennosides (Senna) 8.6 mg capsule (2 sources) Start: 09-01-2024 take 1 capsule by mouth twice daily Sennosides (Senna) 8.6 mg capsule Active 8.6 MG PO Twice daily September 01, 2024 12:00am 125 ml sodium chloride 9 mg/ml prefilled syringe (20 sources) Start: 05-03-2024 sodium chloride (NORMAL SALINE FLUSH) injection Infuse 10 mL into a venous catheter in the morning and 10 mL before bedtime. 1000 mL 1 05/03/2024 Active sodium fluoride 0.011 mg/mg toothpaste (9 sources) Start: 08-14-2022 SF 5000 PLUS 1.1 % cream apply A THIN RUBBON and BRUSH ONCE at bedtime DO NOT EAT, DRINK, ... (REFER TO PRESCRIPTION NOTES). 08/14/2022 Active spironolactone 25 mg oral tablet (20 sources) Aldosterone Antagonist Start: 09-06-2024 Spironolactone 25 mg Tablet Active 12.5 MG PO Daily September 06, 2024 12:00am Start: 07-24-2022 End: 08-15-2025 take 0.5 tablet by mouth in the morning spironolactone (ALDACTONE) 25 mg tablet Take 0.5 tablets (12.5 mg total) by mouth in the morning. 15 tablet 1 09/12/2024 Active Start: 07-24-2022 End: 05-27-2024 take 1 tablet by mouth once daily spironolactone (Aldactone) 25 mg tablet Take 1 tablet (25 mg) by mouth once daily. 07/24/2022 05/27/2024 Discontinued (Discontinued by another clinician) Start: 05-02-2019 take 1 mg by mouth twice daily spironolactone 25 mg Tab mg tab(s), Oral, BID, Refills(s) 0 Start Date: 05/02/19 Status: Ordered Start: 11-15-2017 End: 11-25-2022 Spironolactone 25 mg tablet Discontinued 12.5 MG PO Every morning November 14, 2017 11:00pm November 25, 2022 2:38pm Start: 11-15-2017 End: 11-25-2022 take 12.5 mg by mouth once daily in the morning Spironolactone Discontinued 12.5 MG PO Every morning November 15, 2017 12:00am November 25, 2022 3:38pm take 0.5 tablet by m out once daily Spironolactone 25 MG Oral Tablet 1/2 tab daily Quantity: 45 Refills: 3 Ordered: 28-Aug-2021 Ranjan Quiles MD Active Vit A,C And B-Xmneqc-Dnebbcul ([facility] Plus Lutein) 1,000 unit-200 mg-60 unit-2 mg Tablet (20 sources) Start: 09-02-2019 take 1 tablet by mouth once daily Vit A,C And G-Taojkl-Tjipmxea ([facility] Plus Lutein) 1,000 unit-200 mg-60 unit-2 mg Tablet Active 1 TAB PO Daily September 02, 2019 5:43pm Start: 09-02-2019 take 1 tablet by alysia th once daily in the morning Vit A,C And R-Mzqeot-Vafyowkf ([facility] Plus Lutein) 1,000 unit-200 mg-60 unit-2 mg Tablet Active 1 TAB PO Every morning September 02, 2019 1:00am Start: 09-02-2019 take 1 tablet by alysia th once daily in the morning Vit A,C And E-Jczdec-Ynfpxamy ([facility] Plus Lutein) 1,000 unit-200 mg-60 unit-2 mg Tablet Active 1 TAB PO Every morning September 02, 2019 12:00am Start: 09-02-2019 take 1 tablet by alysia th once daily Vit A,C And Q-Mmqrke-Vgwursov ([facility] Plus Lutein) 1,000 unit-200 mg-60 unit-2 mg Tablet Active 1 TAB PO Daily September 02, 2019 1:00am Vitamin B Complex (20 sources) Start: 09-12-2024 take 1 tablet by alysia th in the morning b complex vitamins tablet Take 1 tablet by mouth in the morning. 09/12/2024 Active Start: 03-20-2023 End: 09-12-2024 take 1 tablet by mouth in the morning b complex vitamins tablet Take 1 tablet by mouth in the morning. 03/20/2023 09/12/2024 Discontinued (Reorder) Start: 03-20-2023 take 1 tablet by alysia th in the morning b complex vitamins tablet Take 1 tablet by mouth in the morning. 03/20/2023 Active Start: 03-20-2023 take 1 tablet by alysia th in the morning b complex vitamins tablet Take 1 tablet by mouth in the morning. 0 03/20/2023 Active Start: 09-02-2019 take 1 capsule by mo uth once daily Vitamin B Complex Active 1 CAP PO Daily September 02, 2019 5:43pm Start: 09-02-2019 take 1 capsule by mo uth once daily in the morning Vitamin B Complex Active 1 CAP PO Every morning September 02, 2019 1:00am Start: 09-02-2019 take 1 capsule by mo uth once daily in the morning Vitamin B Complex Active 1 CAP PO Every morning September 02, 2019 12:00am Start: 09-02-2019 take 1 capsule by mo uth once daily Vitamin B Complex Active 1 CAP PO Daily September 02, 2019 1:00am End: 05-27-2024 take 1 tablet by mouth once daily vitamin B complex (SUPER B-50 COMPLEX ORAL) Take 1 tablet by mouth once daily. 05/27/2024 Discontinued (Discontinued by another clinician) take 1 tablet by alysia th once daily vitamin B complex (SUPER B-50 COMPLEX ORAL) Take 1 tablet by mouth once daily. Active take 1 tablet by alysia th once daily vitamin B complex (SUPER B-50 COMPLEX ORAL) Take 1 tablet by mouth once daily. 0 Active Vitamin B Complex Capsule (2 sources) Start: 09-02-2019 take 1 capsule by mouth once daily in the morning Vitamin B Complex Capsule Active 1 CAP PO Every morning September 02, 2019 12:00am Vitamin B Complex oral capsule (5 sources) Start: 05-02-2019 take 1 capsule by mouth once daily Vitamin B Complex oral capsule cap(s), Oral, Daily, Refill(s) 0 Start Date: 05/02/19 Status: Ordered Vitamin D3 (5 sources) Start: 05-02-2019 Vitamin D3 Ref ills(s) 0 Start Date: 05/02/19 Status: Ordered Completed/Discontinued Medications Medication Drug Class(es) Dates Sig (Normalized) Sig (Original) acetaminophen 325 mg / HYDROcodone bitartrate 5 mg oral tablet (20 sources) Opioid Agonist Start: 09-02-2019 End: 08-13-2022 take 1 tablet by mouth every six hours as needed for pain Hydrocodone-Acetami nophen ([place]) 5-325 mg tablet Discontinued 1 - 2 TAB PO Q6H as needed for pain 20 September 02, 2019 August 13, 2022 11:37am Acetaminophen / oxyCODONE (2 sources) Opioid Agonist Start: 09-01-2024 End: 09-05-2024 take 1 tablet by mouth every four to six hours as needed for pain Oxycodone-Acetamino phen 5-300 mg tablet Discontinued 1 TAB PO EVERY 4-6 HOURS as needed for pain September 01, 2024 12:00am September 05, 2024 2:57pm Start: 09-01-2024 take 1 tablet by alysia th every four to six hours as needed for pain Oxycodone-Acetaminophen 5-300 mg tablet Active 1 TAB PO EVERY 4-6 HOURS as needed for pain September 01, 2024 12:00am albuterol 5 mg/ml inhalation solution (2 sources) beta2-Adrenergic Agonist End: 08-15-2024 take 2.5 mg by inhalation every six hours as needed albuterol 5 mg/mL nebulizer solution Take 0.5 mL (2.5 mg) by nebulization every 6 hours if needed for wheezing. 08/15/2024 Discontinued (Therapy completed) albuterol 0.833 mg/ml / ipratropium bromide 0.167 mg/ml inhalation solution (14 sources) Anticholinergic, beta2-Adrenergic Agonist Start: 05-10-2024 End: 07-08-2024 take 3 mL by inhalation every four hours as needed ipratropium-albut srinivas (DUONEB) 0.5 mg-3 mg(2.5 mg base)/3 mL nebu Inhale 3 mL as instructed every 4 hours as needed for wheezing/shortnes s of breath. 05/10/2024 07/08/2024 Discontinued Start: 03-31-2024 take 3 mL by inhalat ion every four hours as needed ipratropium-albuterol (DUONEB) 0.5 mg-3 mg(2.5 mg base)/3 mL nebu Inhale 3 mL as instructed every 4 hours as needed for wheezing/shortness of breath. 03/31/2024 Suspended amiodarone hydrochloride 400 mg oral tablet (20 sources) Antiarrhythmic Start: 12-11-2023 End: 02-19-2024 take 1 tablet by mouth twice daily Amiodarone 400 mg tablet Discontinued 400 MG PO Twice daily 13 02December 10, 2023 11:00pm February 19, 2024 10:05am Start: 10-16-2023 take 1 tablet by alysia once daily amiodarone (P[place]one) 200 mg tablet Indications: Atrial fibrillation, unspecified type (Multi) take 1 tablet by mouth daily 90 tablet 1 10/16/2023 Active Start: 04-17-2023 take 2 tablets by mo ut once daily in the morning Amiodarone 100 mg tablet Active 200 MG PO Every morning April 17, 2023 11:23am Start: 04-17-2023 take 200 mg by mouth once daily in the morning Amiodarone Active 200 MG PO Every morning April 17, 2023 12:23pm Start: 11-25-2022 End: 04-17-2023 take 1 tablet by mouth once daily in the morning Amiodarone 100 mg Tablet Discontinued 100 MG PO Every morning November 24, 2022 11:00pm April 17, 2023 11:23am Start: 05-02-2019 End: 11-25-2022 take 1 tablet by mouth once daily in the morning Amiodarone 200 mg Tablet Discontinued 200 MG PO Every morning September 02, 2019 12:00am November 25, 2022 2:38pm take 0.5 tablet by m out once daily Amiodarone HCl - 200 MG Oral Tablet TAKE 0.5 TABLET Daily Quantity: 45 Refills: 1 Ordered: 09-Dec-2022 DO Active ascorbic acid 1000 mg oral tablet (3 sources) Vitamin C End: 05-27-2024 take 1 tablet by mouth once daily ascorbic acid (Vitamin C) 1,000 mg tablet Take 1 tablet (1,000 mg) by mouth once daily. 05/27/2024 Discontinued (Discontinued by another clinician) atorvastatin 80 mg oral tablet (20 sources) HMG-CoA Reductase Inhibitor Start: 05-02-2019 End: 09-12-2024 atorvastatin (LIPITOR) 80 mg tablet 07/05/2022 09/12/2024 Discontinued (Reorder) Start: 11-15-2017 End: 08-13-2022 take 2 tablets by mouth once daily Atorvastatin 20 mg tablet Discontinued 40 MG PO Daily November 14, 2017 11:00pm August 13, 2022 11:33am Start: 11-15-2017 End: 08-13-2022 take 40 mg by mouth once daily Atorvastatin Discontinu ed 40 MG PO Daily November 15, 2017 12:00am August 13, 2022 12:33pm benzonatate 100 mg oral capsule (20 sources) Non-narcotic Antitussive Start: 10-31-2022 End: 03-09-2023 take 1 capsule by mouth three times daily Benzonatate 100 mg capsule Discontinued 100 MG PO Three times daily November 20, 2022 11:00pm March 09, 2023 11:33am bumetanide 1 mg oral tablet (20 sources) Loop Diuretic Start: 06-02-2024 End: 08-17-2024 take 1 tablet by mouth once daily bumetanide (BUMEX) 2 mg tablet Take 1 tablet (2 mg total) by mouth daily. 06/02/2024 08/17/2024 Discontinued (Dose adjustment) Start: 05-27-2024 End: 05-27-2025 take 2 tablets by mouth once daily bumetanide (Bumex) 1 mg tablet Indications: Cardiomyopathy, ischemic , Essential hypertension, benign Take 2 tablets (2 mg) by mouth once daily. 180 tablet 3 05/27/2024 08/15/2024 Discontinued (Dose adjustment) Start: 04-01-2024 End: 08-15-2024 take 1 tablet by mouth once daily bumetanide (BUMEX) 0.5 mg tablet Take 1 tablet by mouth once daily. 05/10/2024 Suspended Start: 11-15-2017 End: 08-15-2025 take 1 tablet by mouth once daily bumetanide (BUMEX) 1 mg tablet Take 1 tablet (1 mg total) by mouth daily. 08/17/2024 09/12/2024 Discontinued (Reorder) calcium carbonate 500 mg chewable tablet (14 sources) Start: 05-10-2024 End: 07-08-2024 take 1000 mg by mouth every twelve hours as needed calcium carbonate (TUMS) 500 mg chew Take 2 tablets by mouth two times a day as needed. 05/10/2024 07/08/2024 Discontinued Start: 03-31-2024 take 1000 mg by mout h every twelve hours as needed calcium carbonate (TUMS) 500 mg chew Take 2 tablets by mouth two times a day as needed. 03/31/2024 Suspended cephalexin 500 mg oral capsule (1 source) Cephalosporin Antibacterial Start: 05-05-2022 Keflex 500 mg Cap 500 mg = 1 cap(s), Oral, As Directed, Pt to take 1 tab the day before procedure and the 2nd tab the day of procedure once completed., # 2 cap(s), Refills(s) 0, Pharmacy: [facility] [id number], 170, cm, 05/05/22 11:48:00 EDT, Height/Length Dosing, 1... Start Date: 05/05/22 Status: Ordered cholecalciferol 0.05 mg oral tablet (20 sources) Vitamin D Start: 09-02-2019 End: 02-19-2024 Cholecalciferol (Vitamin D3) (Vitamin D3) 2,000 unit Tablet Discontinued 1000 UNIT PO Every morning September 02, 2019 12:00am February 19, 2024 10:06am clopidogrel 75 mg oral tablet (20 sources) [id number] Platelet Inhibitor Start: 11-17-2017 End: 03-09-2025 take 1 tablet by mouth in the morning clopidogreL (PLAVIX) 75 mg tablet Take 1 tablet (75 mg total) by mouth in the morning. 90 tablet 3 12/08/2023 09/12/2024 Discontinued (Reorder) docosahexaenoic acid 120 mg / eicosapentaenoic acid 180 mg oral capsule (20 sources) End: 05-27-2024 take 1 capsule by mouth twice daily fish oil concentrate ([place]-3) 120-180 mg capsule Take 1 capsule (1 g) by mouth 2 times a day. 05/27/2024 Discontinued (Discontinued by another clinician) take 1 capsule by mouth twice da mary Fish Oil 1000 MG Oral Capsule Take 1 capsule twice daily Quantity: 180 Refills: 3 Ordered: 19-Jun-2022 DO Active empagliflozin 10 mg oral tablet (20 sources) Sodium-Glucose Cotransporter 2 Inhibitor Start: 11-21-2022 End: 09-12-2024 empagliflozin (JARDIANCE) 10 mg tablet tablet Indications: Chronic congestive heart failure, unspecified heart failure type (CMS-HCC) take 1 tablet every morning 30 tablet 2 06/13/2024 09/12/2024 Discontinued (Reorder) ergocalciferol, vitamin D2, (VITAMIN D2 ORAL) (3 sources) End: 05-27-2024 take 1 capsule by mouth once daily ergocalciferol, vitamin D2, (VITAMIN D2 ORAL) Take 1 capsule by mouth once daily. 05/27/2024 Discontinued (Discontinued by another clinician) take 1 capsule by mouth once shilpa ly ergocalciferol, vitamin D2, (VITAMIN D2 ORAL) Take 1 capsule by mouth once daily. Active take 1 capsule by mouth once shilpa ly ergocalciferol, vitamin D2, (VITAMIN D2 ORAL) Take 1 capsule by mouth once daily. 0 Active Fish Oil Ultra 1400 MG Oral Capsule (20 sources) take 1 tablet by mouth once daily Fish Oil Ultra 1400 MG Oral Capsule 1 TAB DAILY Quantity: 0 Refills: 0 Ordered: 13-Jun-2021 DO Active folic acid 0.4 mg oral tablet (20 sources) Start: 05-02-2019 folic acid folic acid Start Date: 05/02/19 Status: Ordered Start: 11-15-2017 End: 09-12-2024 take 1 tablet by mouth in the morning folic acid (FOLVITE) 400 MCG tablet Take 1 tablet (400 mcg total) by mouth in the morning. 100 tablet 3 03/20/2023 09/12/2024 Discontinued (Reorder) once-daily gabapentin 300 mg oral tablet (20 sources) Anti-epileptic Agent Start: 11-15-2017 End: 11-15-2017 take 1 tablet by mouth once daily Gabapentin 300 mg Tablet Extended Release 24 Hr Discontinued 300 MG PO Daily November 14, 2017 11:00pm November 15, 2017 10:55am 12 hr guaiFENesin 600 mg extended release oral tablet (20 sources) Start: 11-17-2017 End: 09-02-2019 take 1 tablet by mouth twice daily, then take 1 tablet by mouth every twelve hours Guaifenesin (Mucinex) 600 mg Tablet Extended Release 12hr Discontinued 600 MG PO Twice daily 14 7 November 16, 2017 11:00pm September 02, 2019 4:48pm insulin lispro 100 unt/ml injectable solution (14 sources) Insulin Analog Start: 05-10-2024 End: 07-08-2024 insulin lispro 100 unit/mL injection Inject 0-5 Units subcutaneously with meals and at bedtime. 05/10/2024 07/08/2024 Discontinued Start: 03-31-2024 insulin lispro 100 unit/mL injection Inject 0-5 Units subcutaneously with meals and at bedtime. 03/31/2024 Suspended levoFLOXacin 500 mg oral tablet (20 sources) Quinolone Antimicrobial Start: 09-11-2022 End: 11-21-2022 take 1 tablet by mouth once daily Levofloxacin 500 mg Tablet Discontinued 500 MG PO Daily 02 06September 11, 2022 12:00am November 21, 2022 4:48am levothyroxine sodium 0.05 mg oral tablet (20 sources) l-Thyroxine Start: 03-07-2022 End: 09-12-2024 levothyroxine (SYNTHROID, LEVOTHROID) 50 MCG tablet 06/04/2022 09/12/2024 Discontinued (Reorder) take 0.5 tablet by mouth once da mary Levothyroxine Sodium 25 MCG Oral Tablet TAKE 1/2 TABLET DAILY. Quantity: 0 Refills: 0 Ordered: 12-Dec-2021 DO Active lutein 6 mg oral capsule (20 sources) Start: 02-19-2024 End: 05-27-2024 take 1 capsule by mouth once daily Lutein 6 mg capsule Discontinued 6 MG PO Daily February 18, 2024 11:00pm March 14, 2024 10:47am give with meal/snack Lutein TABS Take 1 tablet daily Quantity: 0 Refills: 0 Ordered: 19-Jun-2022 DO Active meclizine hydrochloride 25 mg oral tablet (16 sources) Antiemetic Start: 04-17-2023 End: 10-19-2023 Meclizine 25 mg tablet Discontinued 25 MG PO 2-4 TIMES PER DAY as needed for dizziness April 16, 2023 11:00pm October 19, 2023 1:20pm nitroglycerin 0.4 mg sublingual tablet (20 sources) Nitrate Vasodilator Start: 04-30-2020 Nitro 0.4 mg Tab = 1 tab(s), SubLingual, PRN Chest pain Start Date: 04/30/20 Status: Ordered Start: 11-15-2017 End: 09-12-2024 nitroglycerin (NITROSTAT) 0. [address] 1 tablet (0.4 mg total) under the tongue every 5 (five) minutes as needed for chest pain. 25 tablet 3 03/20/2023 09/12/2024 Discontinued (Reorder) primidone 50 mg oral tablet (3 sources) Anti-epileptic Agent Start: 07-23-2023 End: 08-18-2023 take 1 tablet by mouth three times daily primidone (MYSOLINE) 50 mg tablet Take 1 tablet (50 mg total) by mouth 3 (three) times a day. 90 tablet 1 07/29/2023 08/18/2023 Discontinued (Side effects) promethazine hydrochloride 25 mg oral tablet (20 sources) Phenothiazine Start: 07-23-2023 End: 09-12-2024 take 1 tablet by mouth every six hours as needed for nausea and vomiting promethazine (PHENERGAN) 25 mg tablet Take 1 tablet (25 mg total) by mouth every 6 (six) hours as needed for nausea or vomiting. 30 tablet 1 07/29/2023 09/12/2024 Discontinued (Reorder) Start: 04-17-2023 End: 10-19-2023 take 1 tablet by mouth four times daily as needed for nausea and vomiting Promethazine 25 mg tablet Discontinued 25 MG PO Four times daily as needed for nausea and vomiting April 16, 2023 11:00pm October 19, 2023 1:20pm sennosides, mcfp 8.6 mg oral tablet (13 sources) Start: 05-10-2024 take 1 tablet by mouth twice daily senna (SENOKOT) 8.6 mg tab 1 tablet by ORAL/FEEDING TUBE route two times a day. 05/10/2024 Suspended Super B Complex TABS (16 sources) Super B Complex TABS Take 1 tablet daily Quantity: 0 Refills: 0 Ordered: 19-Jun-2022 DO Active vitamin a 15743 unt oral capsule (3 sources) Vitamin A End: 05-27-2024 take 1 capsule by mouth once daily beta carotene (vitamin A) 3,000 mcg (10,000 unit) capsule Take 1 capsule (10,000 Units) by mouth once daily. 05/27/2024 Discontinued (Discontinued by another clinician) Vitamin A TABS (16 sources) Vitamin A TABS T RANDELL 1 TABLET DAILY. Quantity: 0 Refills: 0 Ordered: 19-Jun-2022 DO Active Vitamin C TABS (16 sources) Vitamin C TABS T RANDELL 1 TABLET DAILY. Quantity: 0 Refills: 0 Ordered: 19-Jun-2022 DO Active Vitamin D3 CAPS (9 sources) Vitamin D3 CAPS 1 daily Quantity: 0 Refills: 0 Ordered: 13-Jun-2021 DO Active vitamin e 180 mg oral capsule (3 sources) End: 05-27-2024 take 1 capsule by mouth once daily vitamin E 180 mg (400 unit) capsule Take 1 capsule (400 Units) by mouth once daily. 05/27/2024 Discontinued (Discontinued by another clinician) Vitamin E TABS (16 sources) Vitamin E TABS T randell 1 tablet daily Quantity: 0 Refills: 0 Ordered: 19-Jun-2022 DO Active Problems Active Problems Problem Classification Problem Date Documented Da te Episodic/Chronic Acute and unspecified renal failure (20 sources) Injury of kidney; Translations: [Acute kidney failure, unspecified] 11-21-2022 Episodic Acute myocardial infarction (20 sources) Myocardial infarction; Translations: [Acute myocardial infarction, unspecified] Onset: 3 02-09-2019 Chronic Biliary tract disease (20 sources) Cholecystitis; Translations: [Cholecystitis, unspecified] Onset: 4 03-17-2024 Episodic Cardiac dysrhythmias (20 sources) Atrial fibrillation; Translations: [Atrial fibrillation] Onset: 4 11-24-2022 Chronic Chronic kidney disease (20 sources) Chronic kidney disease stage 3; Translations: [Chronic kidney disease, Stage III (moderate)] Onset: 4 03-09-2023 Chronic Chronic obstructive pulmonary disease and bronchiectasis (20 sources) Chronic obstructive lung disease; Translations: [Chronic obstructive pulmonary disease, unspecified] Onset: 3 02-09-2019 Chronic Conduction disorders (20 sources) Automatic implantable cardiac defibrillator in situ; Translations: [Automatic implantable cardiac defibrillator in situ] Onset: 3 11-15-2017 Chronic Congestive heart failure; nonhypertensive (20 sources) Chronic systolic heart failure; Translations: [Chronic systolic heart failure] Onset: 3 02-09-2019 Chronic Congestive heart failure; nonhypertensive (1 source) Congestive heart failure; nonhypertensive Onset: Coronary atherosclerosis and other heart disease (20 sources) Atherosclerotic heart disease of [place] coronary artery without angina pectoris; Translations: [Coronary atherosclerosis] Onset: 8 11-17-2017 Chronic Comment on above: LAD 1995; Coronary atherosclerosis and other heart disease (1 source) Coronary atherosclerosis and other heart disease Onset: 8 Deficiency and other anemia (19 sources) Anemia of chronic disease; Translations: [Anemia in chronic kidney disease] Onset: 4 05-30-2024 Chronic Delirium, dementia, and amnestic and other cognitive disorders (16 sources) Postconcussion syndrome; Translations: [Postconcussional syndrome] 04-25-2023 Chronic Diabetes mellitus without complication (1 source) Metabolic stress hyperglycemia; Translations: [Hyperglycemia, unspecified] Onset: 4 07-13-2024 Episodic Disorders of lipid metabolism (20 sources) Hyperlipidemia; Translations: [Other and unspecified hyperlipidemia] Onset: 3 11-15-2017 Chronic Esophageal disorders (20 sources) Gastroesophageal reflux disease; Translations: [Gastro-esophageal reflux disease without esophagitis] Onset: 4 08-27-2023 Chronic Essential hypertension (20 sources) Essential hypertension; Translations: [Unspecified essential hypertension] Onset: 3 11-17-2017 Chronic Fluid and electrolyte disorders (2 sources) Hypokalemia; Translations: [Hypokalemia] Onset: 4 07-13-2024 Episodic Genitourinary symptoms and ill-defined conditions (20 sources) Post-micturition incontinence ; Translations: [Post-void dribbling] Onset: 3 05-02-2019 Chronic Headache; including migraine (1 source) Headache; including migraine; Translations: [HEADACHE UNSPECIFIED] Onset: 2 Hyperplasia of prostate (20 sources) Benign prostatic hypertrophy with outflow obstruction; Translations: [Benign prostatic hyperplasia with lower urinary tract symptoms] Onset: 2 Chronic Hypertension with complications and secondary hypertension (20 sources) Hypertensive heart disease with heart failure; Translations: [Hypertensive heart failure] Onset: 3 12-24-2022 Chronic Malaise and fatigue (5 sources) Asthenia; Translations: [Weakness] Onset: 5 09-01-2024 Episodic Nausea and vomiting (19 sources) Bilious vomiting; Translations: [Bilious vomiting] Onset: 4 08-27-2023 Episodic Open wounds of head; neck; and trunk (20 sources) Scalp laceration; Translations: [Laceration without foreign body of scalp, initial encounter] 09-02-2019 Episodic Other aftercare (20 sources) Drug therapy finding; Translations: [Long-term (current) use of other medications] Episodic Other aftercare (1 source) Long-term current use of aspirin; Translations: [assisted (current) use of aspirin] 12-24-2022 Episodic Other aftercare (7 sources) Taking high risk medication; Translations: [Other longterm (current) drug therapy] Onset: 4 10-01-2023 Episodic Other circulatory disease (20 sources) History of cardiomyopathy; Translations: [Personal history of other diseases of the circulatory system] 11-15-2017 Episodic Other circulatory disease (20 sources) Low blood pressure; Translations: [Hypotension, unspecified] 11-21-2022 Episodic Other circulatory disease (11 sources) Hypotension, unspecified; Translations: [Hypotension, unspecified] Onset: 5 11-21-2022 Episodic Other circulatory disease (6 sources) History of transient ischemic attack; Translations: [Personal history of transient ischemic attack (TIA), and cerebral infarction without residual deficits] Onset: 4 07-08-2024 Episodic Other circulatory disease (1 source) Personal history of transient ischemic attack (TIA), and cerebral infarction without residual deficits; Translations: [History of TIA (transient ischemic attack)] Onset: 4 Episodic Other diseases of kidney and ureters (1 source) Urinary tract obstruction; Translations: [Other obstructive and reflux uropathy] Onset: 3 Episodic Other fractures (20 sources) Compression fracture of lumbar spine; Translations: [Wedge compression fracture of unspecified lumbar vertebra, initial encounter for closed fracture] 09-02-2019 Episodic Other fractures (7 sources) Compression fracture of thoracic spine; Translations: [Wedge compression fracture of unspecified thoracic vertebra, initial encounter for closed fracture] 03-03-2024 Episodic Other fractures (5 sources) Wedge compression fracture of unspecified lumbar vertebra, initial encounter for closed fracture; Translations: [Closed fracture of lumbar vertebra without mention of spinal cord injury] 03-03-2024 Episodic Other fractures (5 sources) Wedge compression fracture of unspecified thoracic vertebra, initial encounter for closed fracture; Translations: [Closed fracture of dorsal [thoracic] vertebra without mention of spinal cord injury] 03-03-2024 Episodic Other gastrointestinal disorders (2 sources) Esophageal dysphagia; Translations: [Other dysphagia] 08-27-2023 Episodic Other gastrointestinal disorders (12 sources) Dysphagia; Translations: [Dysphagia, unspecified] 10-13-2023 Episodic Other gastrointestinal disorders (12 sources) Burping; Translations: [Eructation] 10-13-2023 Episodic Other gastrointestinal disorders (9 sources) Eructation; Translations: [Flatulence, eructation, and gas pain] 10-13-2023 Episodic Other gastrointestinal disorders (1 source) Diarrhea; Translations: [Diarrhea, unspecified] 08-04-2024 Episodic Other hematologic conditions (5 sources) Raised cardiac enzyme or marker; Translations: [Other specified abnormalities of plasma proteins] 11-21-2022 Episodic Other hematologic conditions (5 sources) Other specified abnormalities of plasma proteins; Translations: [Other abnormal blood chemistry] 11-21-2022 Episodic Other injuries and conditions due to external causes (20 sources) Contusion; Translations: [Unspecified multiple injuries, initial encounter] 09-02-2019 Episodic Other lower respiratory disease (20 sources) Dyspnea on exertion; Translations: [Other respiratory abnormalities] Episodic Other lower respiratory disease (20 sources) Cough; Translations: [Cough] 11-15-2017 Episodic Other lower respiratory disease (3 sources) Shortness of breath; Translations: [SHORTNESS OF BREATH] Onset: 2 Episodic Other lower respiratory disease (1 source) Respiratory insufficiency; Translations: [Other abnormalities of breathing] Onset: 4 07-13-2024 Episodic Other nervous system disorders (20 sources) Cervical myelopathy; Translations: [Disease of spinal cord, unspecified] Onset: 4 12-23-2023 Chronic Other nervous system disorders (20 sources) Neuropathy; Translations: [Polyneuropathy, unspecified] Onset: 4 12-23-2023 Chronic Other nervous system disorders (2 sources) Unable to walk; Translations: [Difficulty in walking, not elsewhere classified] 09-01-2024 Chronic Other nervous system disorders (3 sources) Difficulty in walking, not elsewhere classified; Translations: [Difficulty in walking] Onset: 5 09-01-2024 Chronic Other nervous system disorders (1 source) Acute postoperative pain; Translations: [Other acute postprocedural pain] Onset: 4 07-13-2024 Episodic Other nervous system disorders (1 source) Other acute postprocedural pain; Translations: [Post-op pain] Onset: 4 Episodic Other nutritional; endocrine; and metabolic disorders (20 sources) Obesity; Translations: [Obesity, unspecified] Onset: 4 12-24-2022 Chronic Other nutritional; endocrine; and metabolic disorders (3 sources) Obesity, unspecified; Translations: [Obesity, unspecified] Onset: 3 Chronic Other nutritional; endocrine; and metabolic disorders (1 source) Body mass index (BMI) 33.0-33.9, adult; Translations: [Body mass index [BMI] 33.0-33.9, adult] Onset: 3 Chronic Other nutritional; endocrine; and metabolic disorders (20 sources) Obesity caused by energy imbalance; Translations: [Other obesity due to excess calories] Onset: 3 12-05-2022 Chronic Other nutritional; endocrine; and metabolic disorders (2 sources) Hypomagnesemia; Translations: [Hypomagnesemia] Onset: 4 Chronic Other nutritional; endocrine; and metabolic disorders (20 sources) Obese class I; Translations: [Obesity, unspecified] Onset: 4 Resolved: 4 03-21-2024 Chronic Other nutritional; endocrine; and metabolic disorders (20 sources) Obese class II; Translations: [Obesity, unspecified] Onset: 4 03-22-2024 Chronic Other nutritional; endocrine; and metabolic disorders (20 sources) Hypomagnesemia; Translations: [Hypomagnesemia] Onset: 4 01-18-2024 Chronic Other nutritional; endocrine; and metabolic disorders (2 sources) Body mass index (BMI) 30.0-30.9, adult; Translations: [Body mass index (BMI) 30.0-30.9, adult] Onset: 4 Chronic Other nutritional; endocrine; and metabolic disorders (2 sources) Body mass index (BMI) 31.0-31.9, adult; Translations: [Body mass index (BMI) 31.0-31.9, adult] Onset: 4 Chronic Other nutritional; endocrine; and metabolic disorders (2 sources) Body mass index (BMI) 32.0-32.9, adult; Translations: [Body mass index (BMI) 32.0-32.9, adult] Onset: 4 Chronic Other nutritional; endocrine; and metabolic disorders (2 sources) Overweight in adulthood with body mass index of 25 or more but less than 30; Translations: [Body mass index (BMI) 29.0-29.9, adult] Onset: 5 08-15-2024 Episodic Other nutritional; endocrine; and metabolic disorders (2 sources) Body mass index (BMI) 29.0-29.9, adult; Translations: [Body mass index (BMI) 29.0-29.9, adult] Onset: 5 Episodic Other upper respiratory infections (1 source) Acute pharyngitis, unspecified; Translations: [ACUTE PHARYNGITIS UNSPECIFIED] Onset: 2 Episodic Pulmonary heart disease (9 sources) Pulmonary hypertension, unspecified; Translations: [Pulmonary hypertension] Onset: 3 12-24-2022 Chronic Residual codes; unclassified (1 source) Bilateral lower limb edema; Translations: [Localized edema] 05-27-2024 Episodic Spondylosis; intervertebral disc disorders; other back problems (20 sources) Pain in cervical spine; Translations: [Cervical disc disorder, unspecified, unspecified cervical region] Onset: 4 03-03-2024 Chronic Thyroid disorders (20 sources) Hypothyroidism; Translations: [Unspecified acquired hypothyroidism] Onset: 4 01-18-2024 Chronic Transient cerebral ischemia (20 sources) Cerebral ischemia; Translations: [Transient cerebral ischemic attack, unspecified] Onset: 4 11-15-2017 Chronic Unclassified (2 sources) Athscl heart disease of [place] coronary artery w/o ang pctrs / I25.10(ICD-9) Onset: 8 Unclassified (1 source) Encounter for screening for malignant neoplasm of prostate / Z12.5(ICD-9) Onset: 8 Unclassified (1 source) COUGH, UNSPECIFIED; Translations: [COUGH, UNSPECIFIED] Onset: 2 Unclassified (5 sources) Finding of sensation of bladder 01-15-2019 Unclassified (2 sources) Other ventricular tachycardia; Translations: [Other ventricular tachycardia] Onset: 3 Unclassified (1 source) Medicare annual wellness Onset: 4 Unclassified (1 source) V-tach (HCC); Translations: [V-tach (HCC)] Onset: 4 Unclassified (1 source) VT (ventricular tachycardia) (HCC); Translations: [VT (ventricular tachycardia) ([facility])] Onset: 4 Unclassified (1 source) Ventricular tachycardia, unspecified; Translations: [Ventricular tachycardia, unspecified] Onset: 5 Unclassified (1 source) Low back pain, unspecified; Translations: [Low back pain, unspecified] Onset: 4 Viral infection (4 sources) COVID-19; Translations: [COVID-19] Onset: 2 Past or Other Problems Problem Classification Problem Date Documented Da te Episodic/Chronic Abdominal pain (20 sources) Indigestion; Translations: [Epigastric pain] Onset: 03-15-2024 10-13-2023 Episodic Administrative/social admission (20 sources) Patient encounter status; Translations: [Other reasons for seeking consultation] Onset: 03-23-2024 03-23-2024 Episodic Biliary tract disease (15 sources) Ascending cholangitis; Translations: [Other cholangitis] Onset: 05-01-2024 Resolved: 05-10-2024 05-01-2024 Chronic Cardiac dysrhythmias (20 sources) Tachycardia; Translations: [Tachycardia, unspecified] Onset: 12-11-2023 03-09-2023 Episodic Conditions associated with dizziness or vertigo (20 sources) Dizziness; Translations: [Dizziness and giddiness] Onset: 02-08-2024 11-21-2022 Episodic Genitourinary symptoms and ill-defined conditions (20 sources) Increased frequency of urination; Translations: [Nocturia] Onset: 09-10-2022 01-15-2019 Episodic Mood disorders (20 sources) Mood disorders Onset: 08-27-2023 Resolved: 02-15-2024 08-27-2023 Neoplasms of unspecified nature or uncertain behavior (20 sources) Neoplasm of uncertain behavior of skin of ear; Translations: [Neoplasm of uncertain behavior of skin] Onset: 08-21-2022 08-21-2022 Episodic Other aftercare (3 sources) Other longterm (current) drug therapy; Translations: [OTH BOILING OFF WINDER CURRENT DRUG THERAPY] Onset: 03-06-2022 Episodic Other aftercare (2 sources) technician terminal and repeater (current) use of aspirin; Translations: [ASSISTED CURRENT USE OF ASPIRIN] Onset: 03-06-2022 Episodic Other circulatory disease (18 sources) History of cerebrovascular disease; Translations: [Personal history of transient ischemic attack (TIA), and cerebral infarction without residual deficits] Onset: 05-30-2024 05-30-2024 Episodic Other connective tissue disease (20 sources) Recurrent falls ; Translations: [Repeated falls] Onset: 11-24-2023 12-23-2023 Episodic Other gastrointestinal disorders (4 sources) Dysphagia, unspecified; Translations: [Dysphagia, unspecified] Onset: 10-20-2023 10-13-2023 Episodic Other gastrointestinal disorders (1 source) Other dysphagia; Translations: [Other dysphagia] Onset: 08-27-2023 Episodic Other gastrointestinal disorders (1 source) Other dysphagia; Translations: [Other dysphagia] Onset: 09-16-2023 Episodic Other injuries and conditions due to external causes (20 sources) At risk for falls ; Translations: [History of falling] Onset: 03-23-2024 03-23-2024 Episodic Other nervous system disorders (20 sources) Tremor; Translations: [Tremor, unspecified] Onset: 05-18-2023 07-21-2023 Episodic Other nervous system disorders (20 sources) Abnormal gait; Translations: [Unspecified abnormalities of gait and mobility] Onset: 05-18-2023 05-18-2023 Episodic Other nervous system disorders (2 sources) Tremor, unspecified; Translations: [Tremor, unspecified] Onset: 05-18-2023 Episodic Other nervous system disorders (20 sources) Numbness; Translations: [Anesthesia of skin] Onset: 11-24-2023 12-23-2023 Episodic Other nervous system disorders (20 sources) Paresthesia of foot ; Translations: [Anesthesia of skin] Onset: 11-24-2023 12-23-2023 Episodic Other nutritional; endocrine; and metabolic disorders (15 sources) Body mass index 30+ - obesity; Translations: [Body Mass Index 35.0-35.9, adult] Onset: 12-25-2023 Resolved: 08-15-2024 12-24-2022 Chronic Other screening for suspected conditions (not mental disorders or infectious disease) (20 sources) Raised prostate specific antigen; Translations: [Elevated prostate specific antigen [PSA]] Onset: 05-05-2022 Episodic Other upper respiratory disease (1 source) Pain in throat Onset: 08-27-2023 Episodic Ivelisse-; endo-; and myocarditis; cardiomyopathy (except that caused by tuberculosis or sexually transmitted disease) (20 sources) Cardiomyopathy; Translations: [Other cardiomyopathies] Onset: 12-05-2022 Resolved: 07-23-2023 07-23-2023 Chronic Residual codes; unclassified (7 sources) Never smoked tobacco; Translations: [Other specified health status] Onset: 10-01-2023 10-01-2023 Episodic Residual codes; unclassified (20 sources) Finding of activity of daily living; Translations: [Other general symptoms and signs] Onset: 03-23-2024 03-23-2024 Episodic Residual codes; unclassified (2 sources) Other specified health status; Translations: [Other specified health status] Onset: 10-01-2023 Episodic Screening and history of mental health and substance abuse codes (20 sources) Ex-smoker; Translations: [Personal history of tobacco use] Onset: 12-17-2022 12-24-2022 Episodic Comment on above: quit 1975; Septicemia (except in labor) (20 sources) Sepsis; Translations: [Sepsis, unspecified organism] Onset: 03-15-2024 Resolved: 05-10-2024 03-17-2024 Episodic Spondylosis; intervertebral disc disorders; other back problems (20 sources) Spinal stenosis, lumbar region without neurogenic claudication; Translations: [Low back pain] Onset: 11-24-2023 03-03-2024 Episodic Unclassified (1 source) Other ventricular tachycardia; Translations: [Other ventricular tachycardia] Onset: 04-01-2023 Unclassified (4 sources) Onset: 10-01-2023 Resolved: 08-15-2024 10-01-2023 Results Test Name Value Interpretation Reference Range Facility Basic Metabolic Panelon Anion gap [Moles/Vol] 8.2 mmol/L Normal 6.0-15.0 [facility] Comment on above: Performed By: #### P T, CBC, HS TROP, PTT, CK, BNP, BMP, HEPATIC #### [address] Calcium [Mass/Vol] 8.0 mg/dL Low 8.6-10.3 [facility] Comment on above: Performed By: #### P T, CBC, HS TROP, PTT, CK, BNP, BMP, HEPATIC #### [address] Chloride [Moles/Vol] 105 mmol/L Normal 98-107 [facility] Comment on above: Performed By: #### P T, CBC, HS TROP, PTT, CK, BNP, BMP, HEPATIC #### [address] CO2 [Moles/Vol] 28.2 mmol/L Normal 21.0-31.0 [facility] Comment on above: Performed By: #### P T, CBC, HS TROP, PTT, CK, BNP, BMP, HEPATIC #### [address] Creatinine [Mass/Vol] 1.26 mg/dL Normal 0.70-1.30 [facility] Comment on above: Performed By: #### P T, CBC, HS TROP, PTT, CK, BNP, BMP, HEPATIC #### [place] [address] [place] Creatinine Clr Calc Pharmacy 46.75 Normal [facility] Comment on above: Performed By: #### P T, CBC, HS TROP, PTT, CK, BNP, BMP, HEPATIC #### [address] Estimated GFR 58.379 mL/Min Normal [facility] Comment on above: Performed By: #### P T, CBC, HS TROP, PTT, CK, BNP, BMP, HEPATIC #### [facility] [address] Glucose [Mass/Vol] 87 mg/dL Normal 70-100 [facility] Comment on above: Result Comment: [place] Glucose Reference Range is dependent on time and content of last meal. Glucose of more than 200 mg/dL in a nonstressed, ambulatory subject supports the diagnosis of Diabetes Mellitus. ADA recommended reference range Performed By: #### P T, CBC, HS TROP, PTT, CK, BNP, BMP, HEPATIC #### [facility] [address] Potassium [Moles/Vol] 3.4 mmol/L Low 3.5-5.1 [facility] Comment on above: Performed By: #### P T, CBC, HS TROP, PTT, CK, BNP, BMP, HEPATIC #### [address] Sodium [Moles/Vol] 138 mmol/L Normal 136-145 [facility] Comment on above: Performed By: #### P T, CBC, HS TROP, PTT, CK, BNP, BMP, HEPATIC #### [address] Urea nitrogen [Mass/Vol] 16 mg/dL Normal 7-25 [facility] Comment on above: Performed By: #### P T, CBC, HS TROP, PTT, CK, BNP, BMP, HEPATIC #### [address] Calcium [Mass/volume] in Ser um or PlasmaOrdered By: Tani Solano on 09-04-2024 Calcium [Mass/Vol] Calcium [Mass/volume ] in Serum or Plasma Low 8.6-10.3 [facility] Carbon dioxide, total [Moles /volume] in Serum or PlasmaOrdered By: Tani Solano on 09-04-2024 CO2 [Moles/Vol] Carbon dioxide, tota l [Moles/volume] in Serum or Plasma 21.0-31.0 [facility] Chloride [Moles/volume] in S raiza or PlasmaOrdered By: Tani Solano on 09-04-2024 Chloride [Moles/Vol] Chloride [Moles/vol ume] in Serum or Plasma 98-107 [facility] Creatinine [Mass/volume] in Serum or PlasmaOrdered By: Tani Solano on 09-04-2024 Creatinine [Mass/Vol] Creatinine [Mass/v olume] in Serum or Plasma 0.70-1.30 [facility] Glucose [Mass/volume] in Ser um or PlasmaOrdered By: Tani Solano on 09-04-2024 Glucose [Mass/Vol] Glucose [Mass/volume ] in Serum or Plasma 70-100 [facility] Comment on above: ADA recommended refe rence rangeRandom Glucose Reference Range is dependent on time and content of last meal. Glucose of more than 200 mg/dL in a nonstressed, ambulatory subject supports the diagnosis of Diabetes Mellitus. Magnesiumon 09-04-2024 Magnesium [Mass/Vol] 2.0 mg/dL Normal 1.9-2.7 [facility] Comment on above: Result Comment: PERF ORMED BY: [place] [address] PATHOLOGIST [employer]LLIGENCE OFFICER ARIN PITTMAN M.D. Performed By: #### P T, CBC, HS TROP, PTT, CK, BNP, BMP, HEPATIC #### [address] Magnesium [Mass/volume] in S raiza or PlasmaOrdered By: Tani Solano on 09-04-2024 Magnesium [Mass/Vol] Magnesium [Mass/vol ume] in Serum or Plasma 1.9-2.7 [facility] No Panel InformationOrdered By: Tani Solano on 09-04-2024 Estimated GFR (CKD-EPI) 58.379 mL/Min [facility] Creatinine Clearance (Chem 46.75 [facility] Potassium [Moles/volume] in Serum or PlasmaOrdered By: Tani Solano on 09-04-2024 Potassium [Moles/Vol] Potassium [Moles/v olume] in Serum or Plasma Low 3.5-5.1 [facility] Serum or plasma anion gap de terminationOrdered By: Tani Solano on 09-04-2024 Anion gap [Moles/Vol] Serum or plasma an ion gap determination 6.0-15.0 [facility] Sodium [Moles/volume] in Ser um or PlasmaOrdered By: Tani Solano on 09-04-2024 Sodium [Moles/Vol] Sodium [Moles/volume ] in Serum or Plasma 136-145 [facility] Urea nitrogen [Mass/volume] in Serum or PlasmaOrdered By: Tani Solano on 09-04-2024 Urea nitrogen [Mass/Vol] Urea nitrogen [Mass/volume] in Serum or Plasma 7-25 [facility] Folate [Mass/volume] in Seru m or PlasmaOrdered By: Tani Solano on 09-02-2024 Folate [Mass/Vol] Folate [Mass/volume] in Serum or Plasma >5.9 [facility] Comment on above: Folate reference ran ge: >5.9 ng/mlThe [facility] technical consultation on folate and vitamin [id number] has determined that folate concentrations lessthan 4 ng/ml are considered deficient. Vit. B12/Folate Profileon Cobalamin (Vitamin B12) [Mass/Vol] 242 pg/mL Normal 180-914 [facility] Comment on above: Performed By: #### P T, CBC, HS TROP, PTT, CK, BNP, BMP, HEPATIC #### [address] Folate 8.0 ng/mL Normal >5.9 [facility] Comment on above: Result Comment: [place] te reference range: >5.9 ng/ml The WHO technical consultation on folate and vitamin b12 deficiencies has determined that folate concentrations less than 4 ng/ml are considered deficient. PERFORMED BY: [place] [address] PATHOLOGIST GR[employer] INTELLIGENCE OFFICER ARIN PITTMAN M.D. Performed By: #### P T, CBC, HS TROP, PTT, CK, BNP, BMP, HEPATIC #### [address] Vitamin B12 ser/plasOrdered By: Tani Solano on 09-02-2024 Cobalamin (Vitamin B12) [Mass/Vol] Vitamin B12 ser/plas 180-914 [facility] Alanine aminotransferase [En zymatic activity/volume] in Serum or PlasmaOrdered By: Pino Rand on 09-01-2024 ALT [Catalytic activity/Vol] Alanine aminotransferase [Enzymatic activity/volume] in Serum or Plasma 7-52 [facility] Albumin [Mass/volume] in Ser um or Plasma by Bromocresol green (BCG) dye binding methoOrdered By: Pino Rand on 09-01-2024 Albumin BCG dye [Mass/Vol] Albumin [Mass/volume] in Serum or Plasma by Bromocresol green (BCG) dye binding metho 3.5-5.7 [facility] Alkaline phosphatase [Enzyma tic activity/volume] in Serum or PlasmaOrdered By: Pino Rand on 09-01-2024 ALP [Catalytic activity/Vol] Alkaline phosphatase [Enzymatic activity/volume] in Serum or Plasma 34-104 [facility] Appearance of UrineOrdered B y: Pino Rand on 09-01-2024 Appearance (U) Urine appearance Clear [facility] Aspartate aminotransferase [ Enzymatic activity/volume] in Serum or PlasmaOrdered By: Pino Rand on 09-01-2024 AST [Catalytic activity/Vol] Aspartate aminotransferase [Enzymatic activity/volume] in Serum or Plasma 13-39 [facility] Basophils Auto (Bld) [#/Vol] Ordered By: Pino Rand on 09-01-2024 Basophils (Bld) [#/Vol] Automated basophil count 0.0-0.2 [facility] [facility] Basophils/100 WBC Auto (Bld) Ordered By: Pino Rand on 09-01-2024 Basophils/100 WBC (Bld) Automated basophil % . [facility] Bilirubin Test strip Ql (U)O rdered By: Pino Rand on 09-01-2024 Bilirubin Ql (U) Bilirubin.total [Pre sence] in Urine by Test strip Negative [facility] Bilirubin.total [Mass/volume ] in Serum or PlasmaOrdered By: Pino Rand on 09-01-2024 Bilirubin [Mass/Vol] Bilirubin.total [Mass/volume] in Serum or Plasma 0.3-1.0 [facility] BioFire Not Detectedon 09-01 BioFire Not Detected Not detected Normal Not Detecte [facility] Comment on above: Result Comment: This is a duplicate RP2.1 COVID (PCR) result to be used for statistical tracking purpose only. PERFORMED BY: [place] [address] PATHOLOGIST GROUND INTELLIGENCE OFFICER ARIN PITTMAN M.D. Performed By: #### P T, CBC, HS TROP, PTT, CK, BNP, BMP, HEPATIC #### [address] COVID-19 Detected/Not Detect edOrdered By: Pino Rand on 09-01-2024 SARS-CoV-2 (COVID-19) RNA SHERRY+non-probe Ql (Nph) Not detected Not Detecte [facility] Comment on above: This is a duplicate RP2.1 COVID (PCR) result to be used for statistical tracking purpose only. CT abdomen pelvis w conon CT abdomen pelvis w con [facility] [place] [address] [place] [address] CT Scan Report Signed Patient: Shawna Hernandes MR#: [id number] : 1945 Acct:[id number] Age/Sex: 79 / M ADM Date: 09/01/24 Loc: ER Room: Type: [facility] ER Attending Dr: Copies to: Pino Rand DO Ordering Provider: Pino Rand DO Date of Service: 09/01/24 CT/CT abdomen pelvis w con: pain CT Abdomen and Pelvis withcontrast TECHNIQUE: Axial imaging with 2-D reconstruction.90 cc of Isovue-300. The CT exam was performed using one or more the following dose reduction techniques: Automated exposure control, adjustment of the MA and/or Kv according to patient size, or use of the iterative reconstruction technique. COMPARISON: 03/16/2024 History: Increased weakness. Recent gallbladder removal LIMITATIONS: None LOWER THORAX Unremarkable LIVER: Unremarkable GALLBLADDER: Cholecystectomy clips identified. Fatty stranding in the gallbladder fossa consistent with recent surgery. No fluid collections or free air. BILE DUCTS: No dilatation SPLEEN: Unremarkable PANCREAS: Unremarkable ADRENAL GLANDS: Unremarkable KIDNEYS:Unremarkable AORTA: No abdominal aortic aneurysm identified. RETROPERITONEUM: No significant retroperitoneal abnormalities identified. MESENTERY:Unremarkable SMALL BOWEL: The small bowel loops are nondistended. APPENDIX: The appendix is normal. COLON: Colonic diverticulosis. URINARY BLADDER: Urinary bladder is unremarkable. REPRODUCTIVE SYSTEM: Reproductive structures are unremarkable. PNEUMOPERITONEUM: None PERITONEAL FLUID:None BONY STRUCTURES: Lumbar degeneration ABDOMINAL WALL: Focal fatty stranding in the right gluteal region. Consider contusion. CT/CT abdomen pelvis w con IMPRESSION: Recent cholecystectomy changes. No developing fluid collection. No pneumoperitoneum. No acute abdominal or pelvic findings. Right gluteal subcutaneous stranding. Consider contusion. No hematoma. Impression dictated by: Rashaun Shin M.D.09/01/2024 6:50 PM Dictation Location: [place] [address] Transcribed By: [facility] 09/01/241849 Dictated By: Rashaun Shin DO 09/01/241840 Signed By: 09/01/241849 Normal [facility] CT head/brain wo conon 09-01 CT head/brain wo con [facility] [place] [address] [place] [address] CT Scan Report Signed Patient: Shawna Hernandes MR#: [id number] : 1945 Acct:[id number] Age/Sex: 79 / M ADM Date: 09/01/24 Loc: ER Room: Type: [facility] ER Attending Dr: Copies to: Pino Rand DO Ordering Provider: Pino Rand DO Date of Service: 09/01/24 CT/CT head/brain wo con: weakness Unenhanced head CT TECHNIQUE: Contiguous axial imaging of the head. The CT exam was performed using one or more the following dose reduction techniques: Automated exposure control, adjustment of the MA and/or Kv according to patient size, or use of the iterative reconstruction technique. COMPARISON: 02/08/2024 HISTORY: Increased weakness. VENTRICLES: Within normal limits ATROPHY: Similar mild diffuse atrophy BRAIN PARENCHYMA: Decreased density of the white matter is most consistent with chronic small vessel disease. HEMORRHAGE: None HERNIATION: No mass effect or herniation INFARCTION: No recent vascular distribution infarction is seen. EXTRA-AXIAL FLUID COLLECTIONS None MIDBRAIN: Unremarkable DEVIKA: Unremarkable MEDULLA: Unremarkable SINUSES: Unremarkable ORBITS: Grossly unremarkable MASTOIDS: Unremarkable BONY STRUCTURES Intact ADDITIONAL FINDINGS: CT/CT head/brain wo con IMPRESSION: No acute findings. Impression dictated by: Rashaun Shin M.D.09/01/2024 6:41 PM Dictation Location: [facility] Transcribed By: [facility] 09/01/241840 Dictated By: Rashaun Shin DO 09/01/241838 Signed By: 09/01/241840 Normal [facility] Calcium [Mass/volume] in Ser um or PlasmaOrdered By: Pino Rand on 09-01-2024 Calcium [Mass/Vol] Calcium [Mass/volume ] in Serum or Plasma Low 8.6-10.3 [facility] Carbon dioxide, total [Moles /volume] in Serum or PlasmaOrdered By: Pino Rand on 09-01-2024 CO2 [Moles/Vol] Carbon dioxide, tota l [Moles/volume] in Serum or Plasma 21.0-31.0 [facility] Chloride [Moles/volume] in S raiza or PlasmaOrdered By: Pino Rand on 09-01-2024 Chloride [Moles/Vol] Chloride [Moles/vol ume] in Serum or Plasma 98-107 [facility] Color Auto (U)Ordered By: Mo Rand on 09-01-2024 Color (U) Color of Urine by [facility] Blood Count Auto Di ffon 09-01-2024 Basophils (Bld) [#/Vol] 0.0 10*3/uL Normal 0.0-0.2 [facility] Comment on above: Result Comment: PERF ORMED BY: [facility] [address] [place] [address] PATHOLOGIST GROUND INTELLIGENCE OFFICER ARIN PITTMAN M.D. Performed By: #### C MP, TSH3, [id number], MG, CBC ####[facility] [id number] [place] [address] [facility] Basophils/100 WBC (Bld) 0.6 % Normal . [facility] Comment on above: Performed By: #### C MP, TSH3, [id number], MG, CBC ####[address] Eosinophils (Bld) [#/Vol] 0.1 10*3/uL Normal 0.0-0.45 [facility] Comment on above: Performed By: #### C MP, TSH3, [id number], MG, CBC ####[address] Eosinophils/100 WBC (Bld) 1.9 % Normal . [facility] Comment on above: Performed By: #### C MP, TSH3, [id number], MG, CBC ####[address] Erythrocyte distribution width (RBC) [Ratio] 16.5 % High 12.0-14.8 [facility] Comment on above: Performed By: #### C MP, TSH3, [id number], MG, CBC ####[address] Hematocrit (Bld) [Volume fraction] 36.6 % Low 38.8-50.0 [facility] Comment on above: Performed By: #### C MP, TSH3, [id number], MG, CBC ####[address] Hemoglobin (Bld) [Mass/Vol] 12.4 g/dL Low 13.0-17.0 [facility] Comment on above: Performed By: #### C MP, TSH3, [id number], MG, CBC ####[address] Lymphocytes (Bld) [#/Vol] 0.8 10*3/uL Low 1.00-4.8 [facility] Comment on above: Performed By: #### C MP, TSH3, [id number], MG, CBC ####[address] Lymphocytes/100 WBC (Bld) 10.3 % Normal . [facility] Comment on above: Performed By: #### C MP, TSH3, [id number], MG, CBC ####[address] MCH (RBC) [Entitic mass] 34.2 pg Normal 27.5-35.2 [facility] Comment on above: Performed By: #### C MP, TSH3, [id number], MG, CBC ####[address] MCV (RBC) [Entitic vol] 100.9 fL Normal 83.5-101 [facility] Comment on above: Performed By: #### C MP, TSH3, [id number], MG, CBC ####[address] Mean Corpuscular HGB Conc 33.9 g/dL Normal 32.5-35.6 [facility] Comment on above: Performed By: #### C MP, TSH3, [id number], MG, CBC ####[address] Monocytes (Bld) [#/Vol] 1.0 10*3/uL High 0.0-0.8 [facility] Comment on above: Performed By: #### C MP, TSH3, [id number], MG, CBC ####[address] Monocytes/100 WBC (Bld) 18.73 % Normal 0.00-20.00 [facility] Comment on above: Performed By: #### C MP, TSH3, [id number], MG, CBC ####[address] Monocytes/100 WBC (Bld) 13.0 % Normal . [facility] Comment on above: Performed By: #### C MP, TSH3, [id number], MG, CBC ####[address] Neutrophils (Bld) [#/Vol] 5.6 10*3/uL Normal 1.8-7.7 [facility] Comment on above: Performed By: #### C MP, TSH3, [id number], MG, CBC ####[address] Neutrophils/100 WBC (Bld) 74.2 % Normal . [facility] Comment on above: Performed By: #### C MP, TSH3, [id number], MG, CBC ####[address] NRBC% 0.0 /100{WBC} Normal 0-0.5 [facility] Comment on above: Performed By: #### C MP, TSH3, [id number], MG, CBC ####[address] Platelet mean volume (Bld) [Entitic vol] 10.3 fL High 6.6-10.1 [facility] Comment on above: Performed By: #### C MP, TSH3, [id number], MG, CBC ####[address] Platelets (Bld) [#/Vol] 208 10*3/uL Normal 150-450 [facility] Comment on above: Performed By: #### C MP, TSH3, [id number], MG, CBC ####[address] RBC (Bld) [#/Vol] 3.63 10*6/uL Low 3.90-5.60 [facility] Comment on above: Performed By: #### C MP, TSH3, [id number], MG, CBC ####[address] WBC (Bld) [#/Vol] 7.5 10*3/uL Normal 4.1-10.5 [facility] Comment on above: Performed By: #### C MP, TSH3, [id number], MG, CBC ####[place] [address] [facility] Comprehensive Metabolic Pane evert 09-01-2024 Albumin [Mass/Vol] 3.6 g/dL Normal 3.5-5.7 [facility] Comment on above: Performed By: #### C MP, TSH3, [id number], MG, CBC ####[place] [address] [facility] Albumin/Globulin [Mass ratio] 1.4 {ratio} Normal [facility] Comment on above: Performed By: #### C MP, TSH3, [id number], MG, CBC ####[place] [address] [facility] ALP [Catalytic activity/Vol] 70 U/L Normal 34-104 [facility] Comment on above: Performed By: #### C MP, TSH3, [id number], MG, CBC ####[place] [address] [facility] ALT [Catalytic activity/Vol] 34 U/L Normal 7-52 [facility] Comment on above: Performed By: #### C MP, TSH3, [id number], MG, CBC ####[place] [address] [facility] Anion gap [Moles/Vol] 13.2 mmol/L Normal 6.0-15.0 [facility] Comment on above: Performed By: #### C MP, TSH3, [id number], MG, CBC ####[place] [address] [facility] AST [Catalytic activity/Vol] 33 U/L Normal 13-39 [facility] Comment on above: Performed By: #### C MP, TSH3, [id number], MG, CBC ####[place] [address] [facility] Bilirubin [Mass/Vol] 0.8 mg/dL Normal 0.3-1.0 [facility] Comment on above: Performed By: #### C MP, TSH3, [id number], MG, CBC ####[place] [address] Calcium [Mass/Vol] 8.3 mg/dL Low 8.6-10.3 [facility] Comment on above: Performed By: #### C MP, TSH3, [id number], MG, CBC ####[address] Chloride [Moles/Vol] 105 mmol/L Normal 98-107 [facility] Comment on above: Performed By: #### C MP, TSH3, [id number], MG, CBC ####[address] CO2 [Moles/Vol] 24.3 mmol/L Normal 21.0-31.0 [facility] Comment on above: Performed By: #### C MP, TSH3, [id number], MG, CBC ####[address] Creatinine [Mass/Vol] 1.25 mg/dL Normal 0.70-1.30 [facility] Comment on above: Performed By: #### C MP, TSH3, [id number], MG, CBC ####[address] Creatinine Clr Calc Pharmacy 50.29 Normal [facility] Comment on above: Result Comment: PERF ORMED BY: [place] [address] PATHOLOGIST GROUND INTELLIGENCE OFFICER ARIN PITTMAN M.D. Performed By: #### C MP, TSH3, [id number], MG, CBC ####[address] Estimated GFR 58.940 mL/Min Normal [facility] Comment on above: Performed By: #### C MP, TSH3, [id number], MG, CBC ####[place] [id number] [facility] Globulin (S) [Mass/Vol] 2.6 g/dL Normal [facility] Comment on above: Performed By: #### C MP, TSH3, [id number], MG, CBC ####[address] [address] [facility] Glucose [Mass/Vol] 101 mg/dL High 70-100 [facility] Comment on above: Result Comment: [place] Glucose Reference Range is dependent on time and content of last meal. Glucose of more than 200 mg/dL in a nonstressed, ambulatory subject supports the diagnosis of Diabetes Mellitus. ADA recommended reference range Performed By: #### C MP, TSH3, [id number], MG, CBC ####[place] [address] [place] [address] [facility] Potassium [Moles/Vol] 3.5 mmol/L Normal 3.5-5.1 [facility] Comment on above: Performed By: #### C MP, TSH3, [id number], MG, CBC ####[place] [address] [place] [address] [facility] Protein [Mass/Vol] 6.2 g/dL Low 6.4-8.9 [facility] Comment on above: Performed By: #### C MP, TSH3, [id number], MG, CBC ####[address] [address] [facility] Sodium [Moles/Vol] 139 mmol/L Normal 136-145 [facility] Comment on above: Performed By: #### C MP, TSH3, [id number], MG, CBC ####[address] [address] [facility] Urea nitrogen [Mass/Vol] 16 mg/dL Normal 7-25 [facility] Comment on above: Performed By: #### C MP, TSH3, [id number], MG, CBC ####[address] [address] [facility] Creatinine [Mass/volume] in Serum or PlasmaOrdered By: Pino Rand on 09-01-2024 Creatinine [Mass/Vol] Creatinine [Mass/v olume] in Serum or Plasma 0.70-1.30 [facility] ECG 12 lead ECGon 09-01-2024 ECG 12 lead ECG [facility] Main [place] [id number] Electrocardiograph Report Signed Patient: Shawna Hernandes MR#: [id number] : 1945 Acct:[id number] Age/Sex: 79 / M ADM Date: 09/01/24 Loc: Room: [address] [place] [address] Type: ADM INOo Attending Dr: Tani Solano DO Ordering Provider: Pino Rand DO Date of Service: 09/01/24 ECG/ECG 12 lead ECG: Weakness Copies to: Test Reason : Blood Pressure : 115/57 mmHG Vent. Rate : 60 BPM Atrial Rate : 60 BPM P-R Int : * ms QRS Dur : 134 ms QT Int : 454 ms P-R-T Axes : * -34 69 degrees QTcB Int : 454 ms Undetermined rhythm Left axis deviation Nonspecific intraventricular block T wave abnormality, consider lateral ischemia Abnormal ECG When compared with ECG of 14-Mar-2024 11:46, Current undetermined rhythm precludes rhythm comparison, needs review Confirmed by PINO RAND DO ([id number]) on 09/01/2024 7:59:21 PM Referred By: Electronically Signed By: PINO RAND DO Transcribed By: MUS Signed By Pino Rand DO 09/01 Normal [facility] Eosinophils Auto (Bld) [#/Vo l]Ordered By: Pino Rand on 09-01-2024 Eosinophils (Bld) [#/Vol] Automated eosinophil count 0.0-0.45 [facility] Eosinophils/100 WBC Auto (Bl d)Ordered By: Pino Rand on 09-01-2024 Eosinophils/100 WBC (Bld) Automated eosinophil % . [facility] Erythrocyte distribution wid th Auto (RBC) [Ratio]Ordered By: Pino Rand on 09-01-2024 Erythrocyte distribution width (RBC) [Ratio] Erythrocyte distribution width [Ratio] by Automated count High 12.0-14.8 [facility] Globulin Calc (S) [Mass/Vol] Ordered By: Pino Rand on 09-01-2024 Globulin (S) [Mass/Vol] Serum globulin measurement by calculation (mass/volume) [facility] Glucose [Mass/volume] in Ser um or PlasmaOrdered By: Pino Rand on 09-01-2024 Glucose [Mass/Vol] Glucose [Mass/volume ] in Serum or Plasma High 70-100 [facility] Comment on above: ADA recommended refe rence rangeRandom Glucose Reference Range is dependent on time and content of last meal. Glucose of more than 200 mg/dL in a nonstressed, ambulatory subject supports the diagnosis of Diabetes Mellitus. Glucose [Mass/volume] in Uri ne by Test stripOrdered By: Pino Rand on 09-01-2024 Glucose Test strip (U) [Mass/Vol] Glucose [Mass/volume] in Urine by Test strip High Normal [facility] Hematocrit Auto (Bld) [Volum e fraction]Ordered By: Pino Rand on 09-01-2024 Hematocrit (Bld) [Volume fraction] Hematocrit [Volume Fraction] of Blood by Automated count Low 38.8-50.0 [facility] Hemoglobin Test strip Ql (U) Ordered By: Pino Rand on 09-01-2024 Hemoglobin Ql (U) Hemoglobin [Presence ] in Urine by Test strip Negative [facility] Hemoglobin [Mass/volume] in BloodOrdered By: Pino Rand on 09-01-2024 Hemoglobin (Bld) [Mass/Vol] Hemoglobin [Mass/volume] in Blood Low 13.0-17.0 [facility] INR in Platelet poor plasma by Coagulation assayOrdered By: Pino Rand on 09-01-2024 INR Coag (PPP) [Relative time] INR in Platelet poor plasma by Coagulation assay [facility] Comment on above: INR Therapeutic Rang e A) Pre- and Peroperative OAT started two weeks before surgery. NOT HIP SURGERY: 1.5 - 2.5 HIP SURGERY: 2 - 3B) Primary and secondary prevention of venous THROMBOSIS: 2 - 3C) Active venous thrombosis, pulmonary embolismand prevention of recurrent venous thrombosis: 2 - 3D) Prevention of arterial thromboembolismincluding patients with mechanical heart valves: 3 - 4.5 Ketones Test strip Ql (U)Ord ered By: Pino Rand on 09-01-2024 Ketones Ql (U) Ketones [Presence] i n Urine by Test strip Negative [facility] Leukocyte esterase [Presence ] in Urine by Test stripOrdered By: Pino Rand on 09-01-2024 Leukocyte esterase Test strip Ql (U) Leukocyte esterase [Presence] in Urine by Test strip Negative [facility] Leukocytes [#/volume] correc drake for nucleated erythrocytes in Blood by Automated counOrdered By: Pino Rand on 09-01-2024 WBC corrected for nucl RBC Auto (Bld) [#/Vol] Leukocytes [#/volume] corrected for nucleated erythrocytes in Blood by Automated coun 4.1-10.5 [facility] Lymphocytes Auto (Bld) [#/Vo l]Ordered By: Pino Rand on 09-01-2024 Lymphocytes (Bld) [#/Vol] Lymphocytes [#/volume] in Blood by Automated count Low 1.00-4.8 [facility] Lymphocytes/100 WBC Auto (Bl d)Ordered By: Pino Rand on 09-01-2024 Lymphocytes/100 WBC (Bld) Lymphocytes/100 leukocytes in Blood by Automated count . [facility] MCH Auto (RBC) [Entitic mass ]Ordered By: Pino Rand on 09-01-2024 MCH (RBC) [Entitic mass] MCH [Entitic mass] by Automated count 27.5-35.2 [facility] MCHC Auto (RBC) [Mass/Vol]Or dered By: Pino Rand on 09-01-2024 MCHC (RBC) [Mass/Vol] MCHC [Mass/volume] by Automated count 32.5-35.6 [facility] MCV Auto (RBC) [Entitic vol] Ordered By: Pino Rand on 09-01-2024 MCV (RBC) [Entitic vol] MCV [Entitic volume] by Automated count 83.5-101 [facility] Magnesiumon 09-01-2024 Magnesium [Mass/Vol] 1.8 mg/dL Low 1.9-2.7 [facility] Comment on above: Result Comment: PERF ORMED BY: [facility] [address] [place] [address] PATHOLOGIST GROUND INTELLIGENCE OFFICER ARIN PITTMAN M.D. Performed By: #### C MP, TSH3, [id number], MG, CBC ####[facility] [id number] [place] [address] [facility] Magnesium [Mass/volume] in S raiza or PlasmaOrdered By: Pino Rand on 09-01-2024 Magnesium [Mass/Vol] Magnesium [Mass/vol ume] in Serum or Plasma Low 1.9-2.7 [facility] Monocyte distribution width [Entitic volume] in Blood by AutomatedOrdered By: Pino Rand on 09-01-2024 Monocyte distribution width Auto (Bld) [Entitic vol] Monocyte distribution width [Entitic volume] in Blood by Automated 0.00-20.00 [facility] Monocytes Auto (Bld) [#/Vol] Ordered By: Pino Rand on 09-01-2024 Monocytes (Bld) [#/Vol] Automated blood monocyte count High 0.0-0.8 [facility] Monocytes/100 WBC Auto (Bld) Ordered By: Pino Rand on 09-01-2024 Monocytes/100 WBC (Bld) Automated monocyte % . [facility] Neutrophils Auto (Bld) [#/Vo l]Ordered By: Pino Rand on 09-01-2024 Neutrophils (Bld) [#/Vol] Neutrophils [#/volume] in Blood by Automated count 1.8-7.7 [facility] Neutrophils/100 WBC Auto (Bl d)Ordered By: Pino Rand on 09-01-2024 Neutrophils/100 WBC (Bld) Automated neutrophil % . [facility] Nitrite Test strip Ql (U)Ord ered By: Pino Rand on 09-01-2024 Nitrite Ql (U) Nitrite [Presence] i n Urine by Test strip Negative [facility] No Panel InformationOrdered By: Pino Rand on 09-01-2024 Estimated GFR (CKD-EPI) 58.940 mL/Min [facility] Pharmacy Creatinine Clearance (Chem 50.29 [facility] Nucleated erythrocytes [Pres ence] in Blood by Automated countOrdered By: Pino Rand on 09-01-2024 Nucleated RBC Auto Ql (Bld) Nucleated erythrocytes [Presence] in Blood by Automated count 0-0.5 [facility] Platelet mean volume Auto (B ld) [Entitic vol]Ordered By: Pino Rand on 09-01-2024 Platelet mean volume (Bld) [Entitic vol] Platelet mean volume [Entitic volume] in Blood by Automated count High 6.6-10.1 [facility] Platelets Auto (Bld) [#/Vol] Ordered By: Pino Rand on 09-01-2024 Platelets (Bld) [#/Vol] Platelets [#/volume] in Blood by Automated count 150-450 [facility] Potassium [Moles/volume] in Serum or PlasmaOrdered By: Pino Rand on 09-01-2024 Potassium [Moles/Vol] Potassium [Moles/v olume] in Serum or Plasma 3.5-5.1 [facility] Protein Test strip (U) [Mass /Vol]Ordered By: Pino Rand on 09-01-2024 Protein (U) [Mass/Vol] Protein [Mass/vol ume] in Urine by Test strip Negative [facility] Protein [Mass/volume] in Ser um or PlasmaOrdered By: Pino Rand on 09-01-2024 Protein [Mass/Vol] Protein [Mass/volume ] in Serum or Plasma Low 6.4-8.9 [facility] Prothrombin Time INRon 09-01 INR Coag (PPP) [Relative time] 1.1 {INR} Normal [facility] Comment on above: Result Comment: INR Therapeutic Range A) Pre- and Peroperative OAT started two weeks before surgery. NOT HIP SURGERY: 1.5 - 2.5 HIP SURGERY: 2 - 3 B) Primary and secondary prevention of venous THROMBOSIS: 2 - 3 C) Active venous thrombosis, pulmonary embolism and prevention of recurrent venous thrombosis: 2 - 3 D) Prevention of arterial thromboembolism including patients with mechanical heart valves: 3 - 4.5 PERFORMED BY: [facility] [address] [place] [address] PATHOLOGIST GROUND INTELLIGENCE OFFICER ARIN PITTMAN M.D. Performed By: #### P T, HS TROP ####[facility] [id number] [place] [address] [facility] PT Coag (PPP) [Time] 12.6 s Normal 9.0-12.9 [facility] Comment on above: Result Comment: A he matocrit value greater than 55% may lead to inaccurate results in coagulation testing. Patients having hematocrit values >55% require a special collection tube for coagulation studies. Please contact the laboratory at [phone] for redraw instructions. Performed By: #### P T, HS TROP ####[facility] [id number] [place] [id number] [facility] Prothrombin time (PT)Ordered By: Pino Rand on 09-01-2024 PT Coag (PPP) [Time] Prothrombin time (PT) 9.0- 12.9 [facility] Comment on above: A hematocrit value g reater than 55% may lead to inaccurate results in coagulation testing. Patients having hematocrit values >55% require a special collection tube for coagulation studies. Please contact the laboratory at [phone] for redraw instructions. RBC Auto (Bld) [#/Vol]Ordere d By: Pino Rand on 09-01-2024 RBC (Bld) [#/Vol] Erythrocytes [#/volu me] in Blood by Automated count Low 3.90-5.60 [facility] Respiratory (Upper) Panel, P CRon 09-01-2024 Respiratory (Upper) Panel, PCR Adenovirus Not detected Bordetella parapertussis Not detected Chlamydia pneumoniae Not detected Coronavirus 229E Not detected Coronavirus HKU1 Not detected Coronavirus NL63 Not detected Coronavirus OC43 Not detected Influenza A Not detected Influenza B Not detected Human Metapneumovirus Not detected Mycoplasma pneumoniae Not detected Parainfluenza Virus 1 Not detected Parainfluenza Virus 2 Not detected Parainfluenza Virus 3 Not detected Parainfluenza Virus 4 Not detected Bordetella pertussis-ptxP Not detected Human Rhino/Enterovirus Not detected Resp. Syncytial Virus Not detected COVID-19 Detected/Not Detected Not detected Blank Space -- FLUA TEST INCLUDES Influenza A tests for the following clinically FLUA TEST INCLUDES significant subtypes: FLUA TEST INCLUDES - Influenza A FLUA TEST INCLUDES - Influenza A H1 FLUA TEST INCLUDES - Influenza A H1 2009 FLUA TEST INCLUDES - Influenza A H3 Blank Space -- PERFORMED BY: [facility] [address] [place] [address] PATHOLOGIST GROUND INTELLIGENCE OFFICER ARIN PITTMAN M.D. Normal [facility] Comment on above: Performed By: #### P T, CBC, HS TROP, PTT, CK, BNP, BMP, HEPATIC #### [facility] [address] Respiratory pathogens DNA an d RNA panel - Nasopharynx by SHERRY with non-probe detectionOrdered By: Pino Rand on 09-01-2024 Respiratory pathogens DNA and RNA panel SHERRY+non-probe (Nph) Respiratory pathogens DNA and RNA panel - Nasopharynx by SHERRY with non-probe detection [facility] Serum or plasma albumin/glob ulin mass ratioOrdered By: Pino Rand on 09-01-2024 Albumin/Globulin [Mass ratio] Serum or plasma albumin/globulin mass ratio [facility] Serum or plasma anion gap de terminationOrdered By: Pino Rand on 09-01-2024 Anion gap [Moles/Vol] Serum or plasma an ion gap determination 6.0-15.0 [facility] Sodium [Moles/volume] in Ser um or PlasmaOrdered By: Pino Rand on 09-01-2024 Sodium [Moles/Vol] Sodium [Moles/volume ] in Serum or Plasma 136-145 [facility] Specific gravity Test strip (U) [Rel density]Ordered By: Pino Rand on 09-01-2024 Specific gravity (U) [Rel density] Specific gravity of Urine by Test strip 1.001-1.03 0 [facility] Thyroid Stimulating Hormoneo n 09-01-2024 TSH Qn 1.63 m[IU]/L Normal 0.45-5.33 [facility] Comment on above: Performed By: #### C MP, TSH3, [id number], MG, CBC ####[facility] [id number] Thyrotropin [Units/volume] i n Serum or PlasmaOrdered By: Pino Rand on 09-01-2024 TSH Qn Thyrotropin [Units/v olume] in Serum or Plasma 0.45-5.33 [facility] Troponin I High Sensitivityo n 09-01-2024 Troponin I High Sensitivity 11 Normal 0-20 [facility] Comment on above: Result Comment: The Troponin units of report have been changed to meet the Chest Pain Accreditation requirement, element EC5.M1l2. Troponin units are changed from pg/ml to ng/L. Also, the decimal is removed and results are in whole numbers. PERFORMED BY: [facility] [address] [place] [address] PATHOLOGIST GROUND INTELLIGENCE OFFICER ARIN PITTMAN M.D. Performed By: #### P T, HS TROP ####[facility] [id number] Troponin I.cardiac [Mass/vol ume] in Serum or Plasma by Detection limit <= 0.01 ng/Ordered By: Pino Rand on 09-01-2024 Troponin I.cardiac DL <= 0.01 ng/mL [Mass/Vol] Troponin I.cardiac [Mass/volume] in Serum or Plasma by Detection limit <= 0.01 ng/ 0-20 [facility] Comment on above: The Troponin units o f report have been changed to meet the Chest Pain Accreditation requirement, element EC5.M1l2. Troponin units are changed from pg/ml to ng/L. Also, the decimal is removed and results are in whole numbers. Urea nitrogen [Mass/volume] in Serum or PlasmaOrdered By: Pino Rand on 09-01-2024 Urea nitrogen [Mass/Vol] Urea nitrogen [Mass/volume] in Serum or Plasma 7-25 [facility] Urinalysison 09-01-2024 Appearance (U) Clear Normal Clear [facility] Comment on above: Order Comment: Name Collection Type:: Clean-Voided Midstream Performed By: #### P T, CBC, HS TROP, PTT, CK, BNP, BMP, HEPATIC #### [facility] [address] Bilirubin,Urine Negative Normal Negative [facility] Comment on above: Order Comment: Name Collection Type:: Clean-Voided Midstream Performed By: #### P T, CBC, HS TROP, PTT, CK, BNP, BMP, HEPATIC #### [facility] [address] Color (U) Light-Yellow Normal Yellow [facility] Comment on above: Order Comment: Name Collection Type:: Clean-Voided Midstream Performed By: #### P T, CBC, HS TROP, PTT, CK, BNP, BMP, HEPATIC #### [facility] [address] Glucose Ql (U) >= High Normal [facility] Comment on above: Order Comment: Name Collection Type:: Clean-Voided Midstream Performed By: #### P T, CBC, HS TROP, PTT, CK, BNP, BMP, HEPATIC #### [address] Ketones Ql (U) Negative Normal Negative [facility] Comment on above: Order Comment: Name Collection Type:: Clean-Voided Midstream Performed By: #### P T, CBC, HS TROP, PTT, CK, BNP, BMP, HEPATIC #### [address] Leukocyte esterase Test strip Ql (U) Negative Normal Negative [facility] Comment on above: Order Comment: Name Collection Type:: Clean-Voided Midstream Performed By: #### P T, CBC, HS TROP, PTT, CK, BNP, BMP, HEPATIC #### [place] [address] [place] Nitrite,Urine Negative Normal Negative [facility] Comment on above: Order Comment: Name Collection Type:: Clean-Voided Midstream Performed By: #### P T, CBC, HS TROP, PTT, CK, BNP, BMP, HEPATIC #### [address] Occult Blood,Urine Negative Normal Negative [facility] Comment on above: Order Comment: Name Collection Type:: Clean-Voided Midstream Result Comment: PERF ORMED BY: [place] [address] PATHOLOGIST GROUND INTELLIGENCE OFFICER ARIN PITTMAN M.D. Performed By: #### P T, CBC, HS TROP, PTT, CK, BNP, BMP, HEPATIC #### [facility] [address] pH (U) 6.0 [pH] Normal 5.0-9.0 [facility] Comment on above: Order Comment: Name Collection Type:: Clean-Voided Midstream Performed By: #### P T, CBC, HS TROP, PTT, CK, BNP, BMP, HEPATIC #### [facility] [address] Protein,Urine Negative Normal Negative [facility] Comment on above: Order Comment: Name Collection Type:: Clean-Voided Midstream Performed By: #### P T, CBC, HS TROP, PTT, CK, BNP, BMP, HEPATIC #### [address] Specificy [place],Urine 1.011 Normal 1.001-1.03 0 [facility] Comment on above: Order Comment: Name Collection Type:: Clean-Voided Midstream Performed By: #### P T, CBC, HS TROP, PTT, CK, BNP, BMP, HEPATIC #### [facility] [address] Urobilinogen,Urine Normal Normal Normal [facility] Comment on above: Order Comment: Name Collection Type:: Clean-Voided Midstream Performed By: #### P T, CBC, HS TROP, PTT, CK, BNP, BMP, HEPATIC #### [address] Urobilinogen Test strip (U) [Mass/Vol]Ordered By: Pino Rand on 09-01-2024 Urobilinogen (U) [Mass/Vol] Urobilinogen [Mass/volume] in Urine by Test strip Normal [facility] Vitamin D 25 Hydroxy Totalon 09-01-2024 Vitamin D 25 Hydroxy Total 33.9 ng/mL Normal 30-100 [facility] Comment on above: Result Comment: ALEXA MIN D STATUS 25(OH)VITAMIN D RANGE (ng/mL) Deficient <20 Insufficient 20 to <30 Sufficient 30 to 100 Reference: Kayla BARRON,Adriane PEREIRA, Jus REYES, et al. Evaluation,treatment, and prevention of vitamin D deficiency; an Endocrine Society clinical practice guideline. JCEM. 2010; 96(7):1911-. PERFORMED BY: [facility] [address] [place] [address] PATHOLOGIST GROUND INTELLIGENCE OFFICER ARIN PITTMAN M.D. Performed By: #### C MP, TSH3, [id number], MG, CBC ####[facility] [id number] [place] [address] [facility] Vitamin D+Metabolites [Mass/ volume] in Serum or PlasmaOrdered By: Pino Rand on 09-01-2024 Vitamin D+Metabolites [Mass/Vol] Vitamin D+Metabolites [Mass/volume] in Serum or Plasma 30-100 [facility] Comment on above: VITAMIN D STATUS 25( [place])VITAMIN D RANGE (ng/mL) Deficient <20 Insufficient 20 to <30Sufficient 30 to 100Reference: Kayla MF,Adriane PEREIRA, Jus REYES et al. Evaluation,treatment, and prevention of vitamin D deficiency; an Endocrine Society clinical practice guideline. JCEM. 2010; 96(7):1911-30. WBC Auto (Bld) [#/Vol]Ordere d By: Pino Rand on 09-01-2024 WBC (Bld) [#/Vol] Leukocytes [#/volume ] in Blood by Automated count 4.1-10.5 [facility] pH Test strip (U)Ordered By: Pino Rand on 09-01-2024 pH (U) pH of Urine by Test strip 5.0-9.0 [facility] ECG 12 Leadon 08-15-2024 ECG revealed sinus r hythm with ventricular pacing, abnormal ECG [facility] Work Phone: CASE MANAGEMon 07-19-2024 CASE MANAGEM Normal [facility] CNDSon 07-19-2024 CNDS Normal [facility] CASE MANAGEMon 07-18-2024 CASE MANAGEM Normal [facility] CASE MANAGEM Normal [facility] CBC panel Auto (Bld)on 07-18 Erythrocyte distribution width (RBC) [Ratio] 14.0 % Normal 11.5-15.0 [facility] Comment on above: Order Comment: Speci men Type: BLOOD SPECIMENOrdering Facility: [facility] Address: [address] [place] [address] Performed By: #### 5 8410-2 ####[facility] LABIA [id number] [place] [address] [place] Hematocrit (Bld) [Volume fraction] 31.0 % Low 39.0-51.0 [facility] Comment on above: Order Comment: Speci men Type: BLOOD SPECIMENOrdering Facility: [facility] Address: [address] [place] [address] Performed By: #### 5 8410-2 ####[facility] LABIA [id number] [place] [address] [place] Hemoglobin (Bld) [Mass/Vol] 10.2 g/dL Low 13.0-17.0 [facility] Comment on above: Order Comment: Speci men Type: BLOOD SPECIMENOrdering Facility: [facility] Address: [address] [place] [address] Performed By: #### 5 8410-2 ####[facility] LABIA [id number] [place] [address] [place] MCH (RBC) [Entitic mass] 32.8 pg Normal 26.0-34.0 [facility] Comment on above: Order Comment: Speci men Type: BLOOD SPECIMENOrdering Facility: [facility] Address: [address] [place] [address] Performed By: #### 5 8410-2 ####[facility] LABIA [id number] [place] [address] [place] MCHC (RBC) [Mass/Vol] 32.9 g/dL Normal 30.5-36.[address] [facility] Comment on above: Order Comment: Speci men Type: BLOOD SPECIMENOrdering Facility: [facility] Address: [address] [place] [address] Performed By: #### 5 8410-2 ####[facility] LABIA [id number] [place] [address] [place] MCV (RBC) [Entitic vol] 99.7 fL Normal 80.0-100.0 [facility] Comment on above: Order Comment: Speci men Type: BLOOD SPECIMENOrdering Facility: [facility] Address: [address] [place] [address] Performed By: #### 5 8410-2 ####[facility] LABIA [id number] [place] [address] [place] Nucleated RBC (Bld) [#/Vol] 10*3/uL Normal <0.01 [facility] Comment on above: Order Comment: Speci men Type: BLOOD SPECIMENOrdering Facility: [facility] Address: [address] [place] [address] Performed By: #### 5 8410-2 ####[facility] LABIA [id number] [place] [address] [place] Platelet mean volume (Bld) [Entitic vol] 11.2 fL Normal 9.0-12.7 [facility] Comment on above: Order Comment: Speci men Type: BLOOD SPECIMENOrdering Facility: [facility] Address: [address] [place] [address] Performed By: #### 5 8410-2 ####[facility] LABIA [id number] [place] [address] [place] Platelets (Bld) [#/Vol] 189 10*3/uL Normal 150-400 [facility] Comment on above: Order Comment: Speci men Type: BLOOD SPECIMENOrdering Facility: [facility] Address: [address] [place] [address] Performed By: #### 5 8410-2 ####[facility] LABCLIA [id number] [place] [address] [place] RBC (Bld) [#/Vol] 3.11 10*6/uL Low 4.20-6.00 [facility] Comment on above: Order Comment: Speci men Type: BLOOD SPECIMENOrdering Facility: [facility] Address: [address] [place] [address] Performed By: #### 5 8410-2 ####[facility] LABCLIA [id number] [place] [address] [place] WBC (Bld) [#/Vol] 10.03 10*3/uL Normal 3.70-11.00 [facility] Comment on above: Order Comment: Speci men Type: BLOOD SPECIMENOrdering Facility: [facility] Address: [address] [place] [address] Performed By: #### 5 8410-2 ####[facility] LABIA [id number] [place] [address] [place] Comprehensive metabolic 2000 panelon 07-18-2024 Albumin [Mass/Vol] 2.8 g/dL Low 3.9-4.9 [facility] Comment on above: Order Comment: Speci men Type: BLOOD SPECIMENOrdering Facility: [facility] Address: [address] [place] [address] Performed By: #### 1 9123-9, 24041-0, 2777-1 ####[facility] LABCLIA [id number] [place] [address] [place] ALP [Catalytic activity/Vol] 181 U/L High 38-113 [facility] Comment on above: Order Comment: Speci men Type: BLOOD SPECIMENOrdering Facility: [facility] Address: [address] [place] [address] Performed By: #### 1 9123-9, 28310-9, 2777-1 ####[facility] LABCLIA [id number] [address] [place] [address] [place] ALT [Catalytic activity/Vol] 155 U/L High 10-54 [facility] Comment on above: Order Comment: Speci men Type: BLOOD SPECIMENOrdering Facility: [facility] Address: [address] [place] [address] Performed By: #### 1 9123-9, 35196-9, 2777-1 ####[facility] LABCLIA [id number] [place] [address] [place] Anion gap [Moles/Vol] 12 mmol/L Normal 8-[address] [facility] Comment on above: Order Comment: Speci men Type: BLOOD SPECIMENOrdering Facility: [facility] Address: [address] [place] [address] Performed By: #### 1 9123-9, 62790-5, 2777- ####[facility] LABCLIA [id number] [place] [address] [place] AST [Catalytic activity/Vol] 127 U/L High 14-40 [facility] Comment on above: Order Comment: Speci men Type: BLOOD SPECIMENOrdering Facility: [facility] Address: [address] [place] [address] Performed By: #### 1 9123-9, 49668-0, 277- ####[facility] LABCLIA [id number] [place] [address] [place] Bilirubin [Mass/Vol] 0.6 mg/dL Normal 0.2-1.3 [facility] Comment on above: Order Comment: Speci men Type: BLOOD SPECIMENOrdering Facility: [facility] Address: [address] [place] [address] Performed By: #### 1 9123-9, 14732-3, 2777-1 ####[facility] LABCLIA [id number] [place] [address] [place] Calcium [Mass/Vol] 8.2 mg/dL Low 8.5-10.2 [facility] Comment on above: Order Comment: Speci men Type: BLOOD SPECIMENOrdering Facility: [facility] Address: [address] [place] [address] Performed By: #### 1 9123-9, 76768-1, 2777- ####[facility] LABCLIA [id number] [address] [address] [place] Chloride [Moles/Vol] 99 mmol/L Normal 98-107 [facility] Comment on above: Order Comment: Speci men Type: BLOOD SPECIMENOrdering Facility: [facility] Address: [address] [place] [address] Performed By: #### 1 9123-9, 65776-9, 2777- ####[facility] LABCLIA [id number] [place] [address] [place] CO2 [Moles/Vol] 23 mmol/L Normal 22-30 [facility] Comment on above: Order Comment: Speci men Type: BLOOD SPECIMENOrdering Facility: [facility] Address: [address] [place] [address] Performed By: #### 1 9123-9, 28492-9, 27701-31 ####[facility] LABCLIA [id number] [place] [address] [place] Creatinine [Mass/Vol] 1.20 mg/dL Normal 0.73-1.[address] [facility] Comment on above: Order Comment: Speci men Type: BLOOD SPECIMENOrdering Facility: [facility] Address: [address] [place] [address] Performed By: #### 1 9123-9, 35195-1, 2777- ####[facility] LABCLIA [id number] [address] [address] [place] Creatinine and Glomerular filtration rate.predicted panel (S/P/Bld) 62 mL/min/1.73m??? Normal >=60 [facility] Comment on above: Order Comment: Elmo patterson Type: BLOOD SPECIMENOrdering Facility: [facility] Address: [address] [place] [address] Result Comment: Ruby mated Glomerular Filtration Rate (eGFR) is calculated using the 2020 CKD-EPI creatinine equation. This equation utilizes serum creatinine, sex, and age as parameters. The creatinine assay has traceable calibration to isotope dilution-mass spectrometry. Refer to KDIGO guidelines for clinical interpretation. In patients with unstable renal function, e.g. those with acute kidney injury, the eGFR may not accurately reflect actual GFR. Performed By: #### 1 9123-9, 95288-1, 2776- ####[facility] LABCLIA [id number] [place] [address] [place] Glucose [Mass/Vol] 119 mg/dL High 74-99 [facility] Comment on above: Order Comment: Elmo patterson Type: BLOOD SPECIMENOrdering Facility: [facility] Address: [address] [place] [address] Result Comment: The [place] [employer] (ADA) provides guidance for cutoff values for fasting glucose and random glucose. The ADA defines fasting as no caloric intake for at least 8 hours. Fasting plasma glucose results between 100 to 125 mg/dL indicate increased risk for diabetes (prediabetes).Fasting plasma glucose results greater than or equal to 126 mg/dL meet the criteria for diagnosis of diabetes. In the absence of unequivocal hyperglycemia, results should be confirmed by repeat testing. In a patient with classic symptoms of hyperglycemia or hyperglycemic crisis, random plasma glucose results greater than or equal to 200 mg/dL meet the criteria for diagnosis of diabetes.Reference: Standards of Medical Care in Diabetes 2016, [place] [employer]. Diabetes Care. 2016.39(Suppl 1). Performed By: #### 1 9123-9, 64323-9, 2776-08 ####[facility] LABCLIA [id number] [place] [id number] [place] Potassium [Moles/Vol] 4.3 mmol/L Normal 3.7-5.[address] [facility] Comment on above: Order Comment: Elmo patterson Type: BLOOD SPECIMENOrdering Facility: [facility] Address: [address] [place] [address] Performed By: #### 1 9123-9, 98338-2, 2777-1 ####[facility] LABCLIA [id number] [place] [address] [place] Protein [Mass/Vol] 5.2 g/dL Low 6.3-8.0 [facility] Comment on above: Order Comment: Speci men Type: BLOOD SPECIMENOrdering Facility: [facility] Address: [address] [place] [address] Performed By: #### 1 9123-9, 84743-0, 2777-1 ####[facility] LABIA [id number] [place] [address] [place] Sodium [Moles/Vol] 134 mmol/L Low 136-144 [facility] Comment on above: Order Comment: Speci men Type: BLOOD SPECIMENOrdering Facility: [facility] Address: [address] [place] [address] Performed By: #### 1 9123-9, 28302-3, 2777-1 ####[facility] LABIA [id number] [place] [address] [place] Urea nitrogen [Mass/Vol] 19 mg/dL Normal 9-24 [facility] Comment on above: Order Comment: Speci men Type: BLOOD SPECIMENOrdering Facility: [facility] Address: [address] [place] [address] Performed By: #### 1 9123-9, 35930-3, 2777-1 ####[facility] LABIA [id number] [place] [id number] [place] Magnesium SerPl-mCncon 07-18 Magnesium [Mass/Vol] 2.1 mg/dL Normal 1.7-2.3 [facility] Comment on above: Order Comment: Speci men Type: BLOOD SPECIMENOrdering Facility: [facility] Address: [address] [place], [place] [address] [id number] Performed By: #### 1 9123-9, 38636-1, 2777-1 ####[facility] LABCLIA [id number] [address] [place] NURSING PROGon 07-18-2024 NURSING PROG Normal [facility] NUTRITIONon 07-18-2024 NUTRITION Normal [facility] Phosphate SerPl-mCncon 07-18 Phosphate [Mass/Vol] 2.3 mg/dL Low 2.7-4.8 [facility] Comment on above: Order Comment: Speci men Type: BLOOD SPECIMENOrdering Facility: [facility] Address: [address] [place] [address] Performed By: #### 1 9123-9, 08582-4, 2777-1 ####[facility] LABCLIA [id number] [place] [address] [place] THERAPY NTon 07-18-2024 THERAPY NT Normal [facility] US ARM VEIN DVT RONY VAS LABo n 07-18-2024 US ARM VEIN DVT RONY VAS LAB Normal [facility] CBC panel Auto (Bld)on 07-17 Erythrocyte distribution width (RBC) [Ratio] 13.9 % Normal 11.5-15.0 [facility] Comment on above: Order Comment: Speci men Type: BLOOD SPECIMENOrdering Facility: [facility] Address: [address] [place] [address] Performed By: #### 5 8410-2 ####[facility] LABCLIA [id number] [address] [place] Hematocrit (Bld) [Volume fraction] 31.1 % Low 39.0-51.0 [facility] Comment on above: Order Comment: Speci men Type: BLOOD SPECIMENOrdering Facility: [facility] Address: [facility] [place] [address] Performed By: #### 5 8410-2 ####[facility] LABCLIA [id number] [place] [address] [place] Hemoglobin (Bld) [Mass/Vol] 9.8 g/dL Low 13.0-17.0 [facility] Comment on above: Order Comment: Speci men Type: BLOOD SPECIMENOrdering Facility: [facility] Address: [address] [place] [address] Performed By: #### 5 8410-2 ####[facility] LABIA [id number] [place] [address] [place] MCH (RBC) [Entitic mass] 31.1 pg Normal 26.0-34.0 [facility] Comment on above: Order Comment: Speci men Type: BLOOD SPECIMENOrdering Facility: [facility] Address: [address] [place] [address] Performed By: #### 5 8410-2 ####[facility] [id number] [place] [address] [place] MCHC (RBC) [Mass/Vol] 31.5 g/dL Normal 30.5-36.[address] [facility] Comment on above: Order Comment: Speci men Type: BLOOD SPECIMENOrdering Facility: [facility] Address: [address] [place] [address] Performed By: #### 5 8410-2 ####[facility] [id number] [place] [address] [place] MCV (RBC) [Entitic vol] 98.7 fL Normal 80.0-100.0 [facility] Comment on above: Order Comment: Speci men Type: BLOOD SPECIMENOrdering Facility: [facility] Address: [address] [place] [address] Performed By: #### 5 8410-2 ####[facility] [id number] [place] [address] [place] Nucleated RBC (Bld) [#/Vol] 10*3/uL Normal <0.01 [facility] Comment on above: Order Comment: Speci men Type: BLOOD SPECIMENOrdering Facility: [facility] Address: [address] [place] [address] Performed By: #### 5 8410-2 ####[facility] [id number] [place] [address] [place] Platelet mean volume (Bld) [Entitic vol] 11.2 fL Normal 9.0-12.7 [facility] Comment on above: Order Comment: Speci men Type: BLOOD SPECIMENOrdering Facility: [facility] Address: [address] [place] [address] Performed By: #### 5 8410-2 ####[facility] [id number] [place] [address] [place] Platelets (Bld) [#/Vol] 169 10*3/uL Normal 150-400 [facility] Comment on above: Order Comment: Speci men Type: BLOOD SPECIMENOrdering Facility: [facility] Address: [address] [place] [address] Performed By: #### 5 8410-2 ####[facility] [id number] [place] [address] [place] RBC (Bld) [#/Vol] 3.15 10*6/uL Low 4.20-6.00 [facility] Comment on above: Order Comment: Speci men Type: BLOOD SPECIMENOrdering Facility: [facility] Address: [address] [place] [address] Performed By: #### 5 8410-2 ####[facility] [id number] [place] [address] [place] WBC (Bld) [#/Vol] 8.21 10*3/uL Normal 3.70-11.00 [facility] Comment on above: Order Comment: Speci men Type: BLOOD SPECIMENOrdering Facility: [facility] Address: [address] [place] [address] Performed By: #### 5 8410-2 ####[facility] [id number] [place] [address] [place] Comprehensive metabolic 2000 panelon 07-17-2024 Albumin [Mass/Vol] 3.0 g/dL Low 3.9-4.9 [facility] Comment on above: Order Comment: Speci men Type: BLOOD SPECIMENOrdering Facility: [facility] Address: [address] [place] [address] Performed By: #### 2 4323-8, 51303-6, 2776- ####[facility] [id number] [place] [address] [place] ALP [Catalytic activity/Vol] 165 U/L High 38-113 [facility] Comment on above: Order Comment: Speci men Type: BLOOD SPECIMENOrdering Facility: [facility] Address: [address] [place] [address] Performed By: #### 2 4323-8, 12859-8, 2776-08 ####[facility] [id number] [place] [address] [place] ALT [Catalytic activity/Vol] 162 U/L High 10-54 [facility] Comment on above: Order Comment: Speci men Type: BLOOD SPECIMENOrdering Facility: [facility] Address: [address] [place] [address] Performed By: #### 2 4323-8, 32362-9, 2776- ####[facility] [id number] [place] [address] [place] Anion gap [Moles/Vol] 10 mmol/L Normal 8-[address] [facility] Comment on above: Order Comment: Speci men Type: BLOOD SPECIMENOrdering Facility: [facility] Address: [address] [place] [address] Performed By: #### 2 4323-8, , 2776-08 ####[facility] LABCL[facility] [id number] [place] [address] [place] AST [Catalytic activity/Vol] 105 U/L High 14-40 [facility] Comment on above: Order Comment: Speci men Type: BLOOD SPECIMENOrdering Facility: [facility] Address: [address] [place] [address] Performed By: #### 2 4323-8, , 2776-08 ####[facility] [id number] [place] [address] [place] Bilirubin [Mass/Vol] 0.7 mg/dL Normal 0.2-1.3 [facility] Comment on above: Order Comment: Speci men Type: BLOOD SPECIMENOrdering Facility: [facility] Address: [address] [place] [address] Performed By: #### 2 4323-8, , 2776-08 ####[facility] [id number] [place] [address] [place] Calcium [Mass/Vol] 8.1 mg/dL Low 8.5-10.2 [facility] Comment on above: Order Comment: Speci men Type: BLOOD SPECIMENOrdering Facility: [facility] Address: [address] [place] [address] Performed By: #### 2 4323-8, , 2776-08 ####[facility] [id number] [place] [id number] [place] Chloride [Moles/Vol] 101 mmol/L Normal 98-107 [facility] Comment on above: Order Comment: Speci men Type: BLOOD SPECIMENOrdering Facility: [facility] Address: [address] [place] [address] Performed By: #### 2 4323-8, , 2776-08 ####[facility] [id number] [address] [address] [place] CO2 [Moles/Vol] 23 mmol/L Normal 22-30 [facility] Comment on above: Order Comment: Speci men Type: BLOOD SPECIMENOrdering Facility: [facility] Address: [address] [place] [address] Performed By: #### 2 4323-8, , 2776-08 ####[facility] [id number] [address] [address] [place] Creatinine [Mass/Vol] 1.17 mg/dL Normal 0.73-1.[address] [facility] Comment on above: Order Comment: Speci men Type: BLOOD SPECIMENOrdering Facility: [facility] Address: [address] [place] [address] Performed By: #### 2 4323-8, , 2776-08 ####[facility] [id number] [place] [address] [place] Creatinine and Glomerular filtration rate.predicted panel (S/P/Bld) 64 mL/min/1.73m??? Normal >=60 [facility] Comment on above: Order Comment: Speci men Type: BLOOD SPECIMENOrdering Facility: [facility] Address: [address] [place] [address] Result Comment: Ruby mated Glomerular Filtration Rate (eGFR) is calculated using the 2020 CKD-EPI creatinine equation. This equation utilizes serum creatinine, sex, and age as parameters. The creatinine assay has traceable calibration to isotope dilution-mass spectrometry. Refer to KDIGO guidelines for clinical interpretation. In patients with unstable renal function, e.g. those with acute kidney injury, the eGFR may not accurately reflect actual GFR. Performed By: #### 2 4323-8, , 2776-08 ####[facility] [id number] [address] [address] [place] Glucose [Mass/Vol] 111 mg/dL High 74-99 [facility] Comment on above: Order Comment: Speci men Type: BLOOD SPECIMENOrdering Facility: [facility] Address: [address] [place] [address] Result Comment: The [place] [employer] (ADA) provides guidance for cutoff values for fasting glucose and random glucose. The ADA defines fasting as no caloric intake for at least 8 hours. Fasting plasma glucose results between 100 to 125 mg/dL indicate increased risk for diabetes (prediabetes).Fasting plasma glucose results greater than or equal to 126 mg/dL meet the criteria for diagnosis of diabetes. In the absence of unequivocal hyperglycemia, results should be confirmed by repeat testing. In a patient with classic symptoms of hyperglycemia or hyperglycemic crisis, random plasma glucose results greater than or equal to 200 mg/dL meet the criteria for diagnosis of diabetes.Reference: Standards of Medical Care in Diabetes 2016, [place] [employer]. Diabetes Care. 2016.39(Suppl 1). Performed By: #### 2 4323-8, 25833-1, 2776- ####[facility] LABCLIA [id number] [place] [address] [place] Potassium [Moles/Vol] 4.1 mmol/L Normal 3.7-5.[address] [facility] Comment on above: Order Comment: Speci men Type: BLOOD SPECIMENOrdering Facility: [facility] Address: [address] [place] [address] Performed By: #### 2 4323-8, 57173-5, 7- ####[facility] LABCLIA [id number] [place] [id number] [place] Protein [Mass/Vol] 5.2 g/dL Low 6.3-8.0 [facility] Comment on above: Order Comment: Speci men Type: BLOOD SPECIMENOrdering Facility: [facility] Address: [address] [place] [address] Performed By: #### 2 4323-8, 50679-9, 7- ####[facility] LABCLIA [id number] [place] [id number] [place] Sodium [Moles/Vol] 134 mmol/L Low 136-144 [facility] Comment on above: Order Comment: Speci men Type: BLOOD SPECIMENOrdering Facility: [facility] Address: [address] [place], [place] [address] Performed By: #### 2 4323-8, 95390-3, 2776- ####[facility] LABCL[facility] [id number] [place] [address] [place] Urea nitrogen [Mass/Vol] 18 mg/dL Normal 9-24 [facility] Comment on above: Order Comment: Speci men Type: BLOOD SPECIMENOrdering Facility: [facility] Address: [address] [place] [address] Performed By: #### 2 4323-8, , 2776-08 ####[facility]CL[facility] [id number] [place] [address] [place] Magnesium SerPl-mCncon 07-17 Magnesium [Mass/Vol] 2.1 mg/dL Normal 1.7-2.3 [facility] Comment on above: Order Comment: Speci men Type: BLOOD SPECIMENOrdering Facility: [facility] Address: [address] [place] [address] Performed By: #### 2 4323-8, 89561-1, 2776-08 ####[facility] LABCLIA [id number] [place] [id number] [place] Phosphate SerPl-mCncon 07-17 Phosphate [Mass/Vol] 2.4 mg/dL Low 2.7-4.8 [facility] Comment on above: Order Comment: Speci men Type: BLOOD SPECIMENOrdering Facility: [facility] Address: [address] [place] [address] Performed By: #### 2 4323-8, 46747-4, 7- ####[facility]CL[facility] [id number] [place] [address] [place] CBC panel Auto (Bld)on 07-16 Erythrocyte distribution width (RBC) [Ratio] 13.9 % Normal 11.5-15.0 [facility] Comment on above: Order Comment: Speci men Type: BLOOD SPECIMENOrdering Facility: [facility] Address: [address] [place] [address] Performed By: #### 5 8410-2 ####[facility] [id number] [place] [address] [place] Hematocrit (Bld) [Volume fraction] 33.9 % Low 39.0-51.0 [facility] Comment on above: Order Comment: Speci men Type: BLOOD SPECIMENOrdering Facility: [facility] Address: [address] [place] [address] Performed By: #### 5 8410-2 ####[facility] [id number] [place] [address] [place] Hemoglobin (Bld) [Mass/Vol] 10.9 g/dL Low 13.0-17.0 [facility] Comment on above: Order Comment: Speci men Type: BLOOD SPECIMENOrdering Facility: [facility] Address: [address] [place] [address] Performed By: #### 5 8410-2 ####[facility] [id number] [place] [address] [place] MCH (RBC) [Entitic mass] 32.1 pg Normal 26.0-34.0 [facility] Comment on above: Order Comment: Speci men Type: BLOOD SPECIMENOrdering Facility: [facility] Address: [address] [place] [address] Performed By: #### 5 8410-2 ####[facility] [id number] [place] [address] [place] MCHC (RBC) [Mass/Vol] 32.2 g/dL Normal 30.5-36.[address] [facility] Comment on above: Order Comment: Speci men Type: BLOOD SPECIMENOrdering Facility: [facility] Address: [address] [place] [address] Performed By: #### 5 8410-2 ####[facility]CLIA [id number] [place] [address] [place] MCV (RBC) [Entitic vol] 99.7 fL Normal 80.0-100.0 [facility] Comment on above: Order Comment: Speci men Type: BLOOD SPECIMENOrdering Facility: [facility] Address: [address] [place] [address] Performed By: #### 5 8410-2 ####[facility] [id number] [place] [address] [place] Nucleated RBC (Bld) [#/Vol] 10*3/uL Normal <0.01 [facility] Comment on above: Order Comment: Speci men Type: BLOOD SPECIMENOrdering Facility: [facility] Address: [address] [place] [address] Performed By: #### 5 8410-2 ####[facility] [id number] [place] [address] [place] Platelet mean volume (Bld) [Entitic vol] 11.7 fL Normal 9.0-12.7 [facility] Comment on above: Order Comment: Speci men Type: BLOOD SPECIMENOrdering Facility: [facility] Address: [address] [place] [address] Performed By: #### 5 8410-2 ####[facility] [id number] [place] [address] [place] Platelets (Bld) [#/Vol] 184 10*3/uL Normal 150-400 [facility] Comment on above: Order Comment: Speci men Type: BLOOD SPECIMENOrdering Facility: [facility] Address: [address] [place] [address] Performed By: #### 5 8410-2 ####[facility]CL[facility] [id number] [place] [id number] [place] RBC (Bld) [#/Vol] 3.40 10*6/uL Low 4.20-6.00 [facility] Comment on above: Order Comment: Speci men Type: BLOOD SPECIMENOrdering Facility: [facility] Address: [address] [place] [address] Performed By: #### 5 8410-2 ####[facility]CL[facility] [id number] [place] [address] [place] WBC (Bld) [#/Vol] 8.65 10*3/uL Normal 3.70-11.00 [facility] Comment on above: Order Comment: Speci men Type: BLOOD SPECIMENOrdering Facility: [facility] Address: [address] [place] [address] Performed By: #### 5 8410-2 ####[facility] [id number] [place] [address] [place] Comprehensive metabolic 2000 panelon 07-16-2024 Albumin [Mass/Vol] 3.4 g/dL Low 3.9-4.9 [facility] Comment on above: Order Comment: Speci men Type: BLOOD SPECIMENOrdering Facility: [facility] Address: [address] [place] [address] Performed By: #### 2 4323-8, 45930-1, 2777-1 ####[facility] [id number] [place] [address] [place] ALP [Catalytic activity/Vol] 171 U/L High 38-113 [facility] Comment on above: Order Comment: Speci men Type: BLOOD SPECIMENOrdering Facility: [facility] Address: [address] [place] [address] Performed By: #### 2 4323-8, 64343-6, 2776-08 ####[facility]CL[facility] [id number] [address] [address] [place] ALT [Catalytic activity/Vol] 232 U/L High 10-54 [facility] Comment on above: Order Comment: Speci men Type: BLOOD SPECIMENOrdering Facility: [facility] Address: [address] [place] [address] Performed By: #### 2 4323-8, , 2776-08 ####[facility] [id number] [place] [address] [place] Anion gap [Moles/Vol] 10 mmol/L Normal 8-[address] [facility] Comment on above: Order Comment: Speci men Type: BLOOD SPECIMENOrdering Facility: [facility] Address: [address] [place] [address] Performed By: #### 2 4323-8, , 2776-08 ####[facility]CL[facility] [id number] [place] [address] [place] AST [Catalytic activity/Vol] 139 U/L High 14-40 [facility] Comment on above: Order Comment: Speci men Type: BLOOD SPECIMENOrdering Facility: [facility] Address: [address] [place] [address] Performed By: #### 2 4323-8, , 2776-08 ####[facility]CL[facility] [id number] [place] [id number] [place] Bilirubin [Mass/Vol] 0.8 mg/dL Normal 0.2-1.3 [facility] Comment on above: Order Comment: Speci men Type: BLOOD SPECIMENOrdering Facility: [facility] Address: [address] [place] [address] Performed By: #### 2 4323-8, , 2776-08 ####[facility]CL[facility] [id number] [address] [address] [place] Calcium [Mass/Vol] 8.8 mg/dL Normal 8.5-10.2 [facility] Comment on above: Order Comment: Speci men Type: BLOOD SPECIMENOrdering Facility: [facility] Address: [address] [place], [place] [address] Performed By: #### 2 4323-8, , 2776-08 ####[facility]CL[facility] [id number] [place] [id number] [place] Chloride [Moles/Vol] 102 mmol/L Normal 98-107 [facility] Comment on above: Order Comment: Speci men Type: BLOOD SPECIMENOrdering Facility: [facility] Address: [address] [place] [address] Performed By: #### 2 4323-8, , 2776-08 ####[facility]CL[facility] [id number] [place] [id number] [place] CO2 [Moles/Vol] 23 mmol/L Normal 22-30 [facility] Comment on above: Order Comment: Speci men Type: BLOOD SPECIMENOrdering Facility: [facility] Address: [address] [place] [address] Performed By: #### 2 4323-8, , 2776-08 ####[facility]CL[facility] [id number] [place] [id number] [place] Creatinine [Mass/Vol] 1.12 mg/dL Normal 0.73-1.[address] [facility] Comment on above: Order Comment: Speci men Type: BLOOD SPECIMENOrdering Facility: [facility] Address: [address] [place], [place] [address] Performed By: #### 2 4323-8, 40546-2, 2776- ####[facility] [id number] [place] [id number] [place] Creatinine and Glomerular filtration rate.predicted panel (S/P/Bld) 67 mL/min/1.73m??? Normal >=60 [facility] Comment on above: Order Comment: Elmo patterson Type: BLOOD SPECIMENOrdering Facility: [facility] Address: [address] [place] [address] Result Comment: Ruby mated Glomerular Filtration Rate (eGFR) is calculated using the 2020 CKD-EPI creatinine equation. This equation utilizes serum creatinine, sex, and age as parameters. The creatinine assay has traceable calibration to isotope dilution-mass spectrometry. Refer to KDIGO guidelines for clinical interpretation. In patients with unstable renal function, e.g. those with acute kidney injury, the eGFR may not accurately reflect actual GFR. Performed By: #### 2 4323-8, , 2776-08 ####[facility] [id number] [place] [address] [place] Glucose [Mass/Vol] 126 mg/dL High 74-99 [facility] Comment on above: Order Comment: Elmo patterson Type: BLOOD SPECIMENOrdering Facility: [facility] Address: [address] [place] [address] Result Comment: The [place] [employer] (ADA) provides guidance for cutoff values for fasting glucose and random glucose. The ADA defines fasting as no caloric intake for at least 8 hours. Fasting plasma glucose results between 100 to 125 mg/dL indicate increased risk for diabetes (prediabetes).Fasting plasma glucose results greater than or equal to 126 mg/dL meet the criteria for diagnosis of diabetes. In the absence of unequivocal hyperglycemia, results should be confirmed by repeat testing. In a patient with classic symptoms of hyperglycemia or hyperglycemic crisis, random plasma glucose results greater than or equal to 200 mg/dL meet the criteria for diagnosis of diabetes.Reference: Standards of Medical Care in Diabetes 2016, [place] [employer]. Diabetes Care. 2016.39(Suppl 1). Performed By: #### 2 4323-8, 99162-9, 2776- ####[facility] [id number] [place] [id number] [place] Potassium [Moles/Vol] 4.5 mmol/L Normal 3.7-5.[address] [facility] Comment on above: Order Comment: Speci men Type: BLOOD SPECIMENOrdering Facility: [facility] Address: [address] [place] [address] Performed By: #### 2 4323-8, , 2776-08 ####[facility]CL[facility] [id number] [place] [address] [place] Protein [Mass/Vol] 6.0 g/dL Low 6.3-8.0 [facility] Comment on above: Order Comment: Speci men Type: BLOOD SPECIMENOrdering Facility: [facility] Address: [address] [place] [address] Performed By: #### 2 4323-8, , 2776-08 ####[facility] [id number] [place] [address] [place] Sodium [Moles/Vol] 135 mmol/L Low 136-144 [facility] Comment on above: Order Comment: Speci men Type: BLOOD SPECIMENOrdering Facility: [facility] Address: [address] [place] [address] Performed By: #### 2 4323-8, , 2776-08 ####[facility]CL[facility] [id number] [place] [address] [place] Urea nitrogen [Mass/Vol] 16 mg/dL Normal 9-24 [facility] Comment on above: Order Comment: Speci men Type: BLOOD SPECIMENOrdering Facility: [facility] Address: [address] [place] [address] Performed By: #### 2 4323-8, , 2776-08 ####[facility] [id number] [place] [id number] [place] Magnesium [facility] Magnesium [Mass/Vol] 2.5 mg/dL High 1.7-2.3 [facility] Comment on above: Order Comment: Speci men Type: BLOOD SPECIMENOrdering Facility: [facility] Address: [address] [place] [address] Performed By: #### 2 4323-8, 82054-8, 2777-1 ####[facility]CL[facility] [id number] [place] [address] [place] Phosphate SerPl-mCncon 07-16 Phosphate [Mass/Vol] 2.7 mg/dL Normal 2.7-4.8 [facility] Comment on above: Order Comment: Speci men Type: BLOOD SPECIMENOrdering Facility: [facility] Address: [address] [place] [address] Performed By: #### 2 4323-8, 87063-7, 2777-1 ####[facility] [id number] [place] [address] [place] CASE MANAGEMon 07-15-2024 CASE MANAGEM Normal [facility] CBC panel Auto (Bld)on 07-15 Erythrocyte distribution width (RBC) [Ratio] 13.8 % Normal 11.5-15.0 [facility] Comment on above: Order Comment: Speci men Type: BLOOD SPECIMENOrdering Facility: [facility] Address: [address] [place] [address] Performed By: #### 5 8410-2 ####[facility] [id number] [address] [place] Hematocrit (Bld) [Volume fraction] 31.9 % Low 39.0-51.0 [facility] Comment on above: Order Comment: Speci men Type: BLOOD SPECIMENOrdering Facility: [facility] Address: [address] [place] [address] Performed By: #### 5 8410-2 ####[facility] [id number] [place] [address] [place] Hemoglobin (Bld) [Mass/Vol] 10.2 g/dL Low 13.0-17.0 [facility] Comment on above: Order Comment: Speci men Type: BLOOD SPECIMENOrdering Facility: [facility] Address: [address] [place] [address] Performed By: #### 5 8410-2 ####[facility] [id number] [place] [address] [place] MCH (RBC) [Entitic mass] 31.7 pg Normal 26.0-34.0 [facility] Comment on above: Order Comment: Speci men Type: BLOOD SPECIMENOrdering Facility: [facility] Address: [address] [place] [address] Performed By: #### 5 8410-2 ####[facility] [id number] [place] [address] [place] MCHC (RBC) [Mass/Vol] 32.0 g/dL Normal 30.5-36.[address] [facility] Comment on above: Order Comment: Speci men Type: BLOOD SPECIMENOrdering Facility: [facility] Address: [address] [place] [address] Performed By: #### 5 8410-2 ####[facility] [id number] [place] [address] [place] MCV (RBC) [Entitic vol] 99.1 fL Normal 80.0-100.0 [facility] Comment on above: Order Comment: Speci men Type: BLOOD SPECIMENOrdering Facility: [facility] Address: [address] [place] [address] Performed By: #### 5 8410-2 ####[facility] [id number] [place] [address] [place] Nucleated RBC (Bld) [#/Vol] 10*3/uL Normal <0.01 [facility] Comment on above: Order Comment: Speci men Type: BLOOD SPECIMENOrdering Facility: [facility] Address: [address] [place] [address] Performed By: #### 5 8410-2 ####[facility] [id number] [place] [address] [place] Platelet mean volume (Bld) [Entitic vol] 11.7 fL Normal 9.0-12.7 [facility] Comment on above: Order Comment: Speci men Type: BLOOD SPECIMENOrdering Facility: [facility] Address: [address] [place] [address] Performed By: #### 5 8410-2 ####[facility] LABIA [id number] [place] [address] [place] Platelets (Bld) [#/Vol] 144 10*3/uL Low 150-400 [facility] Comment on above: Order Comment: Speci men Type: BLOOD SPECIMENOrdering Facility: [facility] Address: [address] [place] [address] Performed By: #### 5 8410-2 ####[facility] [id number] [place] [address] [place] RBC (Bld) [#/Vol] 3.22 10*6/uL Low 4.20-6.00 [facility] Comment on above: Order Comment: Speci men Type: BLOOD SPECIMENOrdering Facility: [facility] Address: [address] [place] [address] Performed By: #### 5 8410-2 ####[facility] LABCLIA [id number] [place] [address] [place] WBC (Bld) [#/Vol] 8.11 10*3/uL Normal 3.70-11.00 [facility] Comment on above: Order Comment: Speci men Type: BLOOD SPECIMENOrdering Facility: [facility] Address: [address] [place] [address] Performed By: #### 5 8410-2 ####[facility] [id number] [place] [address] [place] Erythrocyte distribution width (RBC) [Ratio] 14.0 % Normal 11.5-15.0 [facility] Comment on above: Order Comment: Speci men Type: BLOOD SPECIMENOrdering Facility: [facility] Address: [address] [place] [address] Performed By: #### 5 8410-2 ####[facility] [id number] [place] [address] [place] Hematocrit (Bld) [Volume fraction] 31.0 % Low 39.0-51.0 [facility] Comment on above: Order Comment: Speci men Type: BLOOD SPECIMENOrdering Facility: [facility] Address: [address] [place] [address] Performed By: #### 5 8410-2 ####[facility] [id number] [place] [address] [place] Hemoglobin (Bld) [Mass/Vol] 9.7 g/dL Low 13.0-17.0 [facility] Comment on above: Order Comment: Speci men Type: BLOOD SPECIMENOrdering Facility: [facility] Address: [address] [place] [address] Performed By: #### 5 8410-2 ####[facility] [id number] [place] [address] [place] MCH (RBC) [Entitic mass] 31.6 pg Normal 26.0-34.0 [facility] Comment on above: Order Comment: Speci men Type: BLOOD SPECIMENOrdering Facility: [facility] Address: [address] [place] [address] Performed By: #### 5 8410-2 ####[facility] [id number] [id number] [address] [place] MCHC (RBC) [Mass/Vol] 31.3 g/dL Normal 30.5-36.[address] [facility] Comment on above: Order Comment: Speci men Type: BLOOD SPECIMENOrdering Facility: [facility] Address: [address] [place] [address] Performed By: #### 5 8410-2 ####[facility] LABCLIA [id number] [place] [address] [place] MCV (RBC) [Entitic vol] 101.0 fL High 80.0-100.0 [facility] Comment on above: Order Comment: Speci men Type: BLOOD SPECIMENOrdering Facility: [facility] Address: [address] [place] [address] Performed By: #### 5 8410-2 ####[facility] LABCLIA [id number] [place] [address] [place] Nucleated RBC (Bld) [#/Vol] 10*3/uL Normal <0.01 [facility] Comment on above: Order Comment: Speci men Type: BLOOD SPECIMENOrdering Facility: [facility] Address: [address] [place] [address] Performed By: #### 5 8410-2 ####[facility] LABCLIA [id number] [place] [address] [place] Platelet mean volume (Bld) [Entitic vol] 11.7 fL Normal 9.0-12.7 [facility] Comment on above: Order Comment: Speci men Type: BLOOD SPECIMENOrdering Facility: [facility] Address: [address] [place] [address] Performed By: #### 5 8410-2 ####[facility] LABCLIA [id number] [place] [address] [place] Platelets (Bld) [#/Vol] 137 10*3/uL Low 150-400 [facility] Comment on above: Order Comment: Speci men Type: BLOOD SPECIMENOrdering Facility: [facility] Address: [address] [place] [address] Result Comment: Resu lts checked and verified.No clot detected. Performed By: #### 5 8410-2 ####[facility] LABCLIA [id number] [place] [address] [place] RBC (Bld) [#/Vol] 3.07 10*6/uL Low 4.20-6.00 [facility] Comment on above: Order Comment: Speci men Type: BLOOD SPECIMENOrdering Facility: [facility] Address: [address] [place] [address] Performed By: #### 5 8410-2 ####[facility] LABCLIA [id number] [place] [address] [place] WBC (Bld) [#/Vol] 8.74 10*3/uL Normal 3.70-11.00 [facility] Comment on above: Order Comment: Speci men Type: BLOOD SPECIMENOrdering Facility: [facility] Address: [address] [place] [address] Performed By: #### 5 8410-2 ####[facility] LABCLIA [id number] [place] [address] [place] Comprehensive metabolic 2000 panelon 07-15-2024 Albumin [Mass/Vol] 3.1 g/dL Low 3.9-4.9 [facility] Comment on above: Order Comment: Speci men Type: BLOOD SPECIMENOrdering Facility: [facility] Address: [address] [place] [address] Performed By: #### 2 4323-8, 03525-7, 2777-1 ####[facility] LABCLIA [id number] [place] [address] [place] ALP [Catalytic activity/Vol] 135 U/L High 38-113 [facility] Comment on above: Order Comment: Speci men Type: BLOOD SPECIMENOrdering Facility: [facility] Address: [address] [place], [place] [address] Performed By: #### 2 4323-8, 72152-8, 2776-08 ####[facility] LABCLIA [id number] [place] [id number] [place] ALT [Catalytic activity/Vol] 267 U/L High 10-54 [facility] Comment on above: Order Comment: Speci men Type: BLOOD SPECIMENOrdering Facility: [facility] Address: [address] [place] [address] Performed By: #### 2 4323-8, 82756-2, 2776-08 ####[facility] [id number] [place] [address] [place] Anion gap [Moles/Vol] 10 mmol/L Normal 8-[address] [facility] Comment on above: Order Comment: Speci men Type: BLOOD SPECIMENOrdering Facility: [facility] Address: [address] [place] [address] Performed By: #### 2 4323-8, , 2776-08 ####[facility]IA [id number] [place] [address] [place] AST [Catalytic activity/Vol] 189 U/L High 14-40 [facility] Comment on above: Order Comment: Speci men Type: BLOOD SPECIMENOrdering Facility: [facility] Address: [address] [place], [place] [address] Performed By: #### 2 4323-8, 73109-0, 2776-08 ####[facility]IA [id number] [place] [id number] [place] Bilirubin [Mass/Vol] 0.9 mg/dL Normal 0.2-1.3 [facility] Comment on above: Order Comment: Speci men Type: BLOOD SPECIMENOrdering Facility: [facility] Address: [address] [place], [place] [address] Performed By: #### 2 4323-8, , 2776-08 ####[facility] LABCLIA [id number] [address] [address] [place] Calcium [Mass/Vol] 8.3 mg/dL Low 8.5-10.2 [facility] Comment on above: Order Comment: Speci men Type: BLOOD SPECIMENOrdering Facility: [facility] Address: [address] [place] [address] Performed By: #### 2 4323-8, , 2776-08 ####[facility] LABCLIA [id number] [place] [id number] [place] Chloride [Moles/Vol] 103 mmol/L Normal 98-107 [facility] Comment on above: Order Comment: Speci men Type: BLOOD SPECIMENOrdering Facility: [facility] Address: [address] [place] [address] Performed By: #### 2 432-8, , 2776-08 ####[facility] LABCLIA [id number] [place] [id number] [place] CO2 [Moles/Vol] 24 mmol/L Normal 22-30 [facility] Comment on above: Order Comment: Speci men Type: BLOOD SPECIMENOrdering Facility: [facility] Address: [address] [place] [address] Performed By: #### 2 4323-8, , 2776-08 ####[facility] LABCLIA [id number] [address] [address] [place] Creatinine [Mass/Vol] 1.20 mg/dL Normal 0.73-1.[address] [facility] Comment on above: Order Comment: Speci men Type: BLOOD SPECIMENOrdering Facility: [facility] Address: [address] [place] [address] Performed By: #### 2 4323-8, 28914-32776-08 ####[facility] LABCLIA [id number] [place] [address] [place] Creatinine and Glomerular filtration rate.predicted panel (S/P/Bld) 62 mL/min/1.73m??? Normal >=60 [facility] Comment on above: Order Comment: Elmo patterson Type: BLOOD SPECIMENOrdering Facility: [facility] Address: [address] [place] [address] Result Comment: Ruby mated Glomerular Filtration Rate (eGFR) is calculated using the 2020 CKD-EPI creatinine equation. This equation utilizes serum creatinine, sex, and age as parameters. The creatinine assay has traceable calibration to isotope dilution-mass spectrometry. Refer to KDIGO guidelines for clinical interpretation. In patients with unstable renal function, e.g. those with acute kidney injury, the eGFR may not accurately reflect actual GFR. Performed By: #### 2 4323-8, , 2776-08 ####[facility]IA [id number] [place] [address] [place] Glucose [Mass/Vol] 93 mg/dL Normal 74-99 [facility] Comment on above: Order Comment: Elmo patterson Type: BLOOD SPECIMENOrdering Facility: [facility] Address: [address] [place] [address] Result Comment: The [place] [employer] (ADA) provides guidance for cutoff values for fasting glucose and random glucose. The ADA defines fasting as no caloric intake for at least 8 hours. Fasting plasma glucose results between 100 to 125 mg/dL indicate increased risk for diabetes (prediabetes).Fasting plasma glucose results greater than or equal to 126 mg/dL meet the criteria for diagnosis of diabetes. In the absence of unequivocal hyperglycemia, results should be confirmed by repeat testing. In a patient with classic symptoms of hyperglycemia or hyperglycemic crisis, random plasma glucose results greater than or equal to 200 mg/dL meet the criteria for diagnosis of diabetes.Reference: Standards of Medical Care in Diabetes 2016, [place] [employer]. Diabetes Care. 2016.39(Suppl 1). Performed By: #### 2 4323-8, , 2776-08 ####[facility] LABCLIA [id number] [address] [address] [place] Potassium [Moles/Vol] 4.2 mmol/L Normal 3.7-5.[address] [facility] Comment on above: Order Comment: Speci men Type: BLOOD SPECIMENOrdering Facility: [facility] Address: [address] [place], [place] [address] Performed By: #### 2 4323-8, , 2776-08 ####[facility] LABCLIA [id number] [address] [address] [place] Protein [Mass/Vol] 5.4 g/dL Low 6.3-8.0 [facility] Comment on above: Order Comment: Speci men Type: BLOOD SPECIMENOrdering Facility: [facility] Address: [address] [place] [address] Performed By: #### 2 432-8, , 2776-08 ####[facility]IA [id number] [place] [id number] [place] Sodium [Moles/Vol] 137 mmol/L Normal 136-144 [facility] Comment on above: Order Comment: Speci men Type: BLOOD SPECIMENOrdering Facility: [facility] Address: [address] [place] [address] Performed By: #### 2 4323-8, , 2776-08 ####[facility] LABCLIA [id number] [address] [address] [place] Urea nitrogen [Mass/Vol] 17 mg/dL Normal 9-24 [facility] Comment on above: Order Comment: Speci men Type: BLOOD SPECIMENOrdering Facility: [facility] Address: [address] [place] [address] Performed By: #### 2 4323-8, , 2776-08 ####[facility] LABCLIA [id number] [place] [id number] [place] Magnesium SerPl-ncon 07-15 Magnesium [Mass/Vol] 2.1 mg/dL Normal 1.7-2.3 [facility] Comment on above: Order Comment: Speci men Type: BLOOD SPECIMENOrdering Facility: [facility] Address: [address] [place] [address] Performed By: #### 2 4323-8, 04527-4, 2777-1 ####[facility] LABCLIA [id number] [place] [address] [place] NURSING PROGon 07-15-2024 NURSING PROG Normal [facility] Phosphate SerPl-ncon 07-15 Phosphate [Mass/Vol] 3.1 mg/dL Normal 2.7-4.8 [facility] Comment on above: Order Comment: Speci men Type: BLOOD SPECIMENOrdering Facility: [facility] Address: [address] [place] [address] Performed By: #### 2 4323-8, 49431-4, 2777-1 ####[facility] LABCLIA [id number] [place] [id number] [place] THERAPY NTon 07-15-2024 THERAPY NT Normal [facility] THERAPY NT Normal [facility] ALLIED HEALTHon 07-14-2024 ALLIED HEALTH Normal [facility] ARTERIAL BLOOD GASESon 07-14 Base excess Calc (Bld) [Moles/Vol] 0 mmol/L Normal 0-2 [facility] Comment on above: Order Comment: Speci men Type: ARTERIAL BLOOD SPECIMENOrdering Facility: [facility] Address: [address] [place] [address] Performed By: #### A LLBG ####[facility] LABCLIA [id number] [place] [id number] [place] Body temperature 97.88 [degF] Normal [facility] Comment on above: Order Comment: Speci men Type: ARTERIAL BLOOD SPECIMENOrdering Facility: [facility] Address: [address] [place] [address] Performed By: #### A LLBG ####[facility] [id number] [place] [address] [place] Calcium.ionized (Bld) [Mass/Vol] 1.19 mmol/L Normal 1.08-1.30 [facility] Comment on above: Order Comment: Speci men Type: ARTERIAL BLOOD SPECIMENOrdering Facility: [facility] Address: [address] [place] [address] Performed By: #### A LLBG ####[facility] [id number] [place] [address] [place] Calcium.ionized adjusted to pH 7.4 (BldA) [Moles/Vol] 1.23 mmol/L Normal 1.08-1.30 [facility] Comment on above: Order Comment: Speci men Type: ARTERIAL BLOOD SPECIMENOrdering Facility: [facility] Address: [address] [place] [address] Performed By: #### A LLBG ####[facility] [id number] [place] [address] [place] Carboxyhemoglobin (BldA) [Mass fraction] 1.1 % Normal 0.0-2.0 [facility] Comment on above: Order Comment: Speci men Type: ARTERIAL BLOOD SPECIMENOrdering Facility: [facility] Address: [address] [place] [address] Result Comment: Carb oxyhemoglobin Reference Range for Smokers: 2.0-8.0% Performed By: #### A LLBG ####[facility] [id number] [place] [address] [place] CO2 (Bld) [Partial pressure] 33 mm Hg Low 36-46 [facility] Comment on above: Order Comment: Speci men Type: ARTERIAL BLOOD SPECIMENOrdering Facility: [facility] Address: [address] [place], [place] [address] Performed By: #### A LLBG ####[facility] LABCLIA [id number] [place] [address] [place] CO2 adjusted to patient's actual temperature (Bld) [Partial pressure] 33 mmHg Low 36-46 [facility] Comment on above: Order Comment: Speci men Type: ARTERIAL BLOOD SPECIMENOrdering Facility: [facility] Address: [address] [place] [address] Performed By: #### A LLBG ####[facility] LABCLIA [id number] [place] [address] [place] Glucose [Mass/Vol] 116 mg/dL High 60-105 [facility] Comment on above: Order Comment: Speci men Type: ARTERIAL BLOOD SPECIMENOrdering Facility: [facility] Address: [address] [place] [address] Performed By: #### A LLBG ####[facility] LABCLIA [id number] [place] [address] [place] HCO3 (Bld) [Moles/Vol] 23 mmol/L Normal 22-26 [facility] Comment on above: Order Comment: Speci men Type: ARTERIAL BLOOD SPECIMENOrdering Facility: [facility] Address: [address] [place] [address] Performed By: #### A LLBG ####[facility]CLIA [id number] [place] [address] [place] Hematocrit (Bld) [Volume fraction] 33.3 % Low 39.0-51.0 [facility] Comment on above: Order Comment: Speci men Type: ARTERIAL BLOOD SPECIMENOrdering Facility: [facility] Address: [address] [place] [address] Performed By: #### A LLBG ####[facility] LABCLIA [id number] [place] [address] [place] Hemoglobin (Bld) [Mass/Vol] 10.8 g/dL Low 13.0-17.0 [facility] Comment on above: Order Comment: Speci men Type: ARTERIAL BLOOD SPECIMENOrdering Facility: [facility] Address: [address] [place] [address] Performed By: #### A LLBG ####[facility] [id number] [place] [address] [place] Lactate [Moles/Vol] 1.1 mmol/L Normal 0.5-2.2 [facility] Comment on above: Order Comment: Speci men Type: ARTERIAL BLOOD SPECIMENOrdering Facility: [facility] Address: [address] [place] [address] Performed By: #### A LLBG ####[facility] [id number] [place] [address] [place] Methemoglobin (Bld) [Mass fraction] 0.6 % Normal 0.0-1.5 [facility] Comment on above: Order Comment: Speci men Type: ARTERIAL BLOOD SPECIMENOrdering Facility: [facility] Address: [address] [place] [address] Performed By: #### A LLBG ####[facility] [id number] [place] [address] [place] O2 THERAPY NC = Nasal Cannula Normal [facility] Comment on above: Order Comment: Speci men Type: ARTERIAL BLOOD SPECIMENOrdering Facility: [facility] Address: [address] [place] [address] Performed By: #### A LLBG ####[facility] [id number] [place] [address] [place] Oxygen (Bld) [Partial pressure] 83 mm Hg Low 85-95 [facility] Comment on above: Order Comment: Speci men Type: ARTERIAL BLOOD SPECIMENOrdering Facility: [facility] Address: [address] [place] [address] Performed By: #### A LLBG ####[facility]CLIA [id number] [place] [address] [place] Oxygen adjusted to patient's actual temperature (Bld) [Partial pressure] 81 mmHg Low 85-95 [facility] Comment on above: Order Comment: Speci men Type: ARTERIAL BLOOD SPECIMENOrdering Facility: [facility] Address: [address] [place] [address] Performed By: #### A LLBG ####[facility] [id number] [place] [address] [place] Oxyhemoglobin (BldA) [Mass fraction] 95 % Normal 95-98 [facility] Comment on above: Order Comment: Speci men Type: ARTERIAL BLOOD SPECIMENOrdering Facility: [facility] Address: [address] [place] [address] Performed By: #### A LLBG ####[facility] [id number] [place] [address] [place] pH (Bld) 7.46 [pH] High 7.35-7.45 [facility] Comment on above: Order Comment: Speci men Type: ARTERIAL BLOOD SPECIMENOrdering Facility: [facility] Address: [address] [place] [address] Performed By: #### A LLBG ####[facility] [id number] [place] [address] [place] pH adjusted to patient's actual temperature (Bld) 7.46 High 7.35-7.45 [facility] Comment on above: Order Comment: Speci men Type: ARTERIAL BLOOD SPECIMENOrdering Facility: [facility] Address: [address] [place] [address] Performed By: #### A LLBG ####[facility] [id number] [place] [address] [place] Potassium [Moles/Vol] 4.5 mmol/L Normal 3.5-5.[address] [facility] Comment on above: Order Comment: Speci men Type: ARTERIAL BLOOD SPECIMENOrdering Facility: [facility] Address: [address] [place] [address] Performed By: #### A LLBG ####[facility]CL[facility] [id number] [place] [address] [place] Sodium [Moles/Vol] 135 mmol/L Low 136-144 [facility] Comment on above: Order Comment: Speci men Type: ARTERIAL BLOOD SPECIMENOrdering Facility: [facility] Address: [address] [place] [address] Performed By: #### A LLBG ####[facility] [id number] [place] [address] [place] CBC panel Auto (Bld)on 07-14 Erythrocyte distribution width (RBC) [Ratio] 13.8 % Normal 11.5-15.0 [facility] Comment on above: Order Comment: Speci men Type: BLOOD SPECIMENOrdering Facility: [facility] Address: [address] [place] [address] Performed By: #### 5 8410-2 ####[facility] [id number] [place] [address] [place] Hematocrit (Bld) [Volume fraction] 29.9 % Low 39.0-51.0 [facility] Comment on above: Order Comment: Speci men Type: BLOOD SPECIMENOrdering Facility: [facility] Address: [address] [place] [address] Performed By: #### 5 8410-2 ####[facility] [id number] [place] [address] [place] Hemoglobin (Bld) [Mass/Vol] 9.6 g/dL Low 13.0-17.0 [facility] Comment on above: Order Comment: Speci men Type: BLOOD SPECIMENOrdering Facility: [facility] Address: [address] [place] [address] Performed By: #### 5 8410-2 ####[facility] [id number] [place] [address] [place] MCH (RBC) [Entitic mass] 32.7 pg Normal 26.0-34.0 [facility] Comment on above: Order Comment: Speci men Type: BLOOD SPECIMENOrdering Facility: [facility] Address: [address] [place] [address] Performed By: #### 5 8410-2 ####[facility] [id number] [place] [address] [place] MCHC (RBC) [Mass/Vol] 32.1 g/dL Normal 30.5-36.[address] [facility] Comment on above: Order Comment: Speci men Type: BLOOD SPECIMENOrdering Facility: [facility] Address: [address] [place] [address] Performed By: #### 5 8410-2 ####[facility] [id number] [place] [address] [place] MCV (RBC) [Entitic vol] 101.7 fL High 80.0-100.0 [facility] Comment on above: Order Comment: Speci men Type: BLOOD SPECIMENOrdering Facility: [facility] Address: [address] [place] [address] Performed By: #### 5 8410-2 ####[facility] [id number] [place] [address] [place] Nucleated RBC (Bld) [#/Vol] 10*3/uL Normal <0.01 [facility] Comment on above: Order Comment: Speci men Type: BLOOD SPECIMENOrdering Facility: [facility] Address: [address] [place] [address] Performed By: #### 5 8410-2 ####[facility] [id number] [place] [address] [place] Platelet mean volume (Bld) [Entitic vol] 12.4 fL Normal 9.0-12.7 [facility] Comment on above: Order Comment: Speci men Type: BLOOD SPECIMENOrdering Facility: [facility] Address: [address] [place] [address] Performed By: #### 5 8410-2 ####[facility] [id number] [place] [address] [place] Platelets (Bld) [#/Vol] 139 10*3/uL Low 150-400 [facility] Comment on above: Order Comment: Speci men Type: BLOOD SPECIMENOrdering Facility: [facility] Address: [address] [place] [address] Performed By: #### 5 8410-2 ####[facility]IA [id number] [place] [address] [place] RBC (Bld) [#/Vol] 2.94 10*6/uL Low 4.20-6.00 [facility] Comment on above: Order Comment: Speci men Type: BLOOD SPECIMENOrdering Facility: [facility] Address: [address] [place] [address] Performed By: #### 5 8410-2 ####[facility] LABIA [id number] [place] [address] [place] WBC (Bld) [#/Vol] 10.26 10*3/uL Normal 3.70-11.00 [facility] Comment on above: Order Comment: Speci men Type: BLOOD SPECIMENOrdering Facility: [facility] Address: [address] [place] [address] Performed By: #### 5 8410-2 ####[facility] LABIA [id number] [place] [address] [place] Erythrocyte distribution width (RBC) [Ratio] 13.2 % Normal 11.5-15.0 [facility] Comment on above: Order Comment: Speci men Type: BLOOD SPECIMENOrdering Facility: [facility] Address: [address] [place] [address] Performed By: #### 5 8410-2 ####[facility] LABIA [id number] [place] [address] [place] Hematocrit (Bld) [Volume fraction] 31.9 % Low 39.0-51.0 [facility] Comment on above: Order Comment: Speci men Type: BLOOD SPECIMENOrdering Facility: [facility] Address: [address] [place] [address] Performed By: #### 5 8410-2 ####[facility] LABIA [id number] [place] [address] [place] Hemoglobin (Bld) [Mass/Vol] 10.8 g/dL Low 13.0-17.0 [facility] Comment on above: Order Comment: Speci men Type: BLOOD SPECIMENOrdering Facility: [facility] Address: [address] [place] [address] Performed By: #### 5 8410-2 ####[facility]IA [id number] [place] [address] [place] MCH (RBC) [Entitic mass] 33.0 pg Normal 26.0-34.0 [facility] Comment on above: Order Comment: Speci men Type: BLOOD SPECIMENOrdering Facility: [facility] Address: [address] [place] [address] Performed By: #### 5 8410-2 ####[facility] LABIA [id number] [place] [address] [place] MCHC (RBC) [Mass/Vol] 33.9 g/dL Normal 30.5-36.[address] [facility] Comment on above: Order Comment: Speci men Type: BLOOD SPECIMENOrdering Facility: [facility] Address: [address] [place] [address] Performed By: #### 5 8410-2 ####[facility] LABCLIA [id number] [place] [address] [place] MCV (RBC) [Entitic vol] 97.6 fL Normal 80.0-100.0 [facility] Comment on above: Order Comment: Speci men Type: BLOOD SPECIMENOrdering Facility: [facility] Address: [address] [place] [address] Performed By: #### 5 8410-2 ####[facility] LABIA [id number] [place] [address] [place] Nucleated RBC (Bld) [#/Vol] 10*3/uL Normal <0.01 [facility] Comment on above: Order Comment: Speci men Type: BLOOD SPECIMENOrdering Facility: [facility] Address: [address] [place] [address] Performed By: #### 5 8410-2 ####[facility] LABIA [id number] [place] [address] [place] Platelet mean volume (Bld) [Entitic vol] 11.6 fL Normal 9.0-12.7 [facility] Comment on above: Order Comment: Speci men Type: BLOOD SPECIMENOrdering Facility: [facility] Address: [address] [place] [address] Performed By: #### 5 8410-2 ####[facility] LABIA [id number] [place] [address] [place] Platelets (Bld) [#/Vol] 132 10*3/uL Low 150-400 [facility] Comment on above: Order Comment: Speci men Type: BLOOD SPECIMENOrdering Facility: [facility] Address: [address] [place] [address] Result Comment: No c lot detected.Results checked and verified. Performed By: #### 5 8410-2 ####[facility] LABCLIA [id number] [address] [address] [place] RBC (Bld) [#/Vol] 3.27 10*6/uL Low 4.20-6.00 [facility] Comment on above: Order Comment: Speci men Type: BLOOD SPECIMENOrdering Facility: [facility] Address: [address] [place] [address] Performed By: #### 5 8410-2 ####[facility] LABCLIA [id number] [address] [address] [place] WBC (Bld) [#/Vol] 13.24 10*3/uL High 3.70-11.00 [facility] Comment on above: Order Comment: Speci men Type: BLOOD SPECIMENOrdering Facility: [facility] Address: [address] [place] [address] Performed By: #### 5 8410-2 ####[facility] LABCLIA [id number] [place] [id number] [place] CONSULTon 07-14-2024 CONSULT Normal [facility] Comprehensive metabolic 2000 panelon 07-14-2024 Albumin [Mass/Vol] 3.3 g/dL Low 3.9-4.9 [facility] Comment on above: Order Comment: Speci men Type: BLOOD SPECIMENOrdering Facility: [facility] Address: [address] [place] [address] Performed By: #### 1 9123-9, 22755-5, 2777-1 ####[facility] LABCLIA [id number] [address] [address] [place] ALP [Catalytic activity/Vol] 99 U/L Normal 38-113 [facility] Comment on above: Order Comment: Speci men Type: BLOOD SPECIMENOrdering Facility: [facility] Address: [address] [place] [address] Performed By: #### 1 9123-9, 95735-7, 2777-1 ####[facility] LABCLIA [id number] [address] [address] [place] ALT [Catalytic activity/Vol] 311 U/L High 10-54 [facility] Comment on above: Order Comment: Speci men Type: BLOOD SPECIMENOrdering Facility: [facility] Address: [address] [place] [address] Performed By: #### 1 9123-9, 50252-7, 2777-1 ####[facility] LABCLIA [id number] [place] [address] [place] Anion gap [Moles/Vol] 11 mmol/L Normal 8-[address] [facility] Comment on above: Order Comment: Speci men Type: BLOOD SPECIMENOrdering Facility: [facility] Address: [address] [place] [address] Performed By: #### 1 9123-9, 57485-5, 2777- ####[facility] LABCLIA [id number] [place] [address] [place] AST [Catalytic activity/Vol] 236 U/L High 14-40 [facility] Comment on above: Order Comment: Speci men Type: BLOOD SPECIMENOrdering Facility: [facility] Address: [address] [place] [address] Performed By: #### 1 9123-9, 53959-1, 2777- ####[facility] LABCLIA [id number] [place] [address] [place] Bilirubin [Mass/Vol] 0.8 mg/dL Normal 0.2-1.3 [facility] Comment on above: Order Comment: Speci men Type: BLOOD SPECIMENOrdering Facility: [facility] Address: [address] [place] [address] Performed By: #### 1 9123-9, 17147-1, 2777-1 ####[facility] LABCLIA [id number] [place] [address] [place] Calcium [Mass/Vol] 8.3 mg/dL Low 8.5-10.2 [facility] Comment on above: Order Comment: Speci men Type: BLOOD SPECIMENOrdering Facility: [facility] Address: [address] [place] [address] Performed By: #### 1 9123-9, 54686-6, 2777-1 ####[facility] LABCLIA [id number] [place] [address] [place] Chloride [Moles/Vol] 103 mmol/L Normal 98-107 [facility] Comment on above: Order Comment: Speci men Type: BLOOD SPECIMENOrdering Facility: [facility] Address: [address] [place] [address] Performed By: #### 1 9123-9, 11954-8, 277-1 ####[facility] LABCLIA [id number] [place] [address] [place] CO2 [Moles/Vol] 22 mmol/L Normal 22-30 [facility] Comment on above: Order Comment: Speci men Type: BLOOD SPECIMENOrdering Facility: [facility] Address: [address] [place] [address] Performed By: #### 1 9123-9, 31049-2, 277-1 ####[facility] LABCLIA [id number] [place] [address] [place] Creatinine [Mass/Vol] 1.23 mg/dL High 0.73-1.[address] [facility] Comment on above: Order Comment: Speci men Type: BLOOD SPECIMENOrdering Facility: [facility] Address: [address] [place] [address] Performed By: #### 1 9123-9, 02639-6, 2777-1 ####[facility] LABCLIA [id number] [place] [address] [place] Creatinine and Glomerular filtration rate.predicted panel (S/P/Bld) 60 mL/min/1.73m??? Normal >=60 [facility] Comment on above: Order Comment: Elmo patterson Type: BLOOD SPECIMENOrdering Facility: [facility] Address: [address] [place] [address] Result Comment: Ruby mated Glomerular Filtration Rate (eGFR) is calculated using the 2020 CKD-EPI creatinine equation. This equation utilizes serum creatinine, sex, and age as parameters. The creatinine assay has traceable calibration to isotope dilution-mass spectrometry. Refer to KDIGO guidelines for clinical interpretation. In patients with unstable renal function, e.g. those with acute kidney injury, the eGFR may not accurately reflect actual GFR. Performed By: #### 1 9123-9, 77167-6, 2777- ####[facility] LABIA [id number] [place] [address] [place] Glucose [Mass/Vol] 96 mg/dL Normal 74-99 [facility] Comment on above: Order Comment: Elmo patterson Type: BLOOD SPECIMENOrdering Facility: [facility] Address: [address] [place] [address] Result Comment: The [place] [employer] (ADA) provides guidance for cutoff values for fasting glucose and random glucose. The ADA defines fasting as no caloric intake for at least 8 hours. Fasting plasma glucose results between 100 to 125 mg/dL indicate increased risk for diabetes (prediabetes).Fasting plasma glucose results greater than or equal to 126 mg/dL meet the criteria for diagnosis of diabetes. In the absence of unequivocal hyperglycemia, results should be confirmed by repeat testing. In a patient with classic symptoms of hyperglycemia or hyperglycemic crisis, random plasma glucose results greater than or equal to 200 mg/dL meet the criteria for diagnosis of diabetes.Reference: Standards of Medical Care in Diabetes 2016, [place] [employer]. Diabetes Care. 2016.39(Suppl 1). Performed By: #### 1 9123-9, 65300-0, 2777- ####[facility] LABIA [id number] [place] [id number] [place] Potassium [Moles/Vol] 4.1 mmol/L Normal 3.7-5.[address] [facility] Comment on above: Order Comment: Speci men Type: BLOOD SPECIMENOrdering Facility: [facility] Address: [address] [place] [address] Performed By: #### 1 9123-9, 09760-1, 2776-08 ####[facility] LABCLIA [id number] [place] [address] [place] Protein [Mass/Vol] 5.2 g/dL Low 6.3-8.0 [facility] Comment on above: Order Comment: Speci men Type: BLOOD SPECIMENOrdering Facility: [facility] Address: [address] [place] [address] Performed By: #### 1 9123-9, , 2776-08 ####[facility] LABCLIA [id number] [place] [address] [place] Sodium [Moles/Vol] 136 mmol/L Normal 136-144 [facility] Comment on above: Order Comment: Speci men Type: BLOOD SPECIMENOrdering Facility: [facility] Address: [address] [place] [address] Performed By: #### 1 9123-9, , 2776-08 ####[facility] LABCLIA [id number] [place] [address] [place] Urea nitrogen [Mass/Vol] 18 mg/dL Normal 9-24 [facility] Comment on above: Order Comment: Speci men Type: BLOOD SPECIMENOrdering Facility: [facility] Address: [address] [place] [address] Performed By: #### 1 9123-9, , 2776-08 ####[facility] LABCLIA [id number] [address] [address] [place] Albumin [Mass/Vol] 3.5 g/dL Low 3.9-4.9 [facility] Comment on above: Order Comment: Speci men Type: BLOOD SPECIMENOrdering Facility: [facility] Address: [address] [place] [address] Performed By: #### 1 9123-9, 35946-9, 2777- ####[facility] LABCLIA [id number] [place] [address] [place] ALP [Catalytic activity/Vol] 105 U/L Normal 38-113 [facility] Comment on above: Order Comment: Speci men Type: BLOOD SPECIMENOrdering Facility: [facility] Address: [address] [place] [address] Performed By: #### 1 9123-9, 05967-7, 2777- ####[facility] LABCLIA [id number] [place] [address] [place] ALT [Catalytic activity/Vol] 330 U/L High 10-54 [facility] Comment on above: Order Comment: Speci men Type: BLOOD SPECIMENOrdering Facility: [facility] Address: [address] [place] [address] Performed By: #### 1 9123-9, 98588-1, 2777- ####[facility]IA [id number] [place] [address] [place] Anion gap [Moles/Vol] 14 mmol/L Normal 8-[address] [facility] Comment on above: Order Comment: Speci men Type: BLOOD SPECIMENOrdering Facility: [facility] Address: [address] [place] [address] Performed By: #### 1 9123-9, 44331-3, 2777- ####[facility] LABIA [id number] [place] [address] [place] AST [Catalytic activity/Vol] 278 U/L High 14-40 [facility] Comment on above: Order Comment: Speci men Type: BLOOD SPECIMENOrdering Facility: [facility] Address: [address] [place] [address] Performed By: #### 1 9123-9, 48419-1, 2776-08 ####[facility] LABCLIA [id number] [place] [address] [place] Bilirubin [Mass/Vol] 0.7 mg/dL Normal 0.2-1.3 [facility] Comment on above: Order Comment: Speci men Type: BLOOD SPECIMENOrdering Facility: [facility] Address: [address] [place] [address] Performed By: #### 1 9123-9, 81917-9, 2776-08 ####[facility] LABCLIA [id number] [place] [address] [place] Calcium [Mass/Vol] 8.5 mg/dL Normal 8.5-10.2 [facility] Comment on above: Order Comment: Speci men Type: BLOOD SPECIMENOrdering Facility: [facility] Address: [address] [place] [address] Performed By: #### 1 9123-9, 47897-7, 2776-08 ####[facility] LABIA [id number] [place] [address] [place] Chloride [Moles/Vol] 101 mmol/L Normal 98-107 [facility] Comment on above: Order Comment: Speci men Type: BLOOD SPECIMENOrdering Facility: [facility] Address: [address] [place] [address] Performed By: #### 1 9123-9, 68103-2, 2776-08 ####[facility] LABIA [id number] [place] [address] [place] CO2 [Moles/Vol] 21 mmol/L Low 22-30 [facility] Comment on above: Order Comment: Speci men Type: BLOOD SPECIMENOrdering Facility: [facility] Address: [address] [place] [address] Performed By: #### 1 9123-9, 54486-8, 2776-08 ####[facility] LABCLIA [id number] [address] [address] [place] Creatinine [Mass/Vol] 1.18 mg/dL Normal 0.73-1.[address] [facility] Comment on above: Order Comment: Elmo patterson Type: BLOOD SPECIMENOrdering Facility: [facility] Address: [address] [place] [address] Performed By: #### 1 9123-9, 71399-0, 2776-08 ####[facility] LABIA [id number] [place] [address] [place] Creatinine and Glomerular filtration rate.predicted panel (S/P/Bld) 63 mL/min/1.73m??? Normal >=60 [facility] Comment on above: Order Comment: Elmo patterson Type: BLOOD SPECIMENOrdering Facility: [facility] Address: [address] [place] [address] Result Comment: Ruby mated Glomerular Filtration Rate (eGFR) is calculated using the 2020 CKD-EPI creatinine equation. This equation utilizes serum creatinine, sex, and age as parameters. The creatinine assay has traceable calibration to isotope dilution-mass spectrometry. Refer to KDIGO guidelines for clinical interpretation. In patients with unstable renal function, e.g. those with acute kidney injury, the eGFR may not accurately reflect actual GFR. Performed By: #### 1 9123-9, 37047-2, 2776-08 ####[facility] LABIA [id number] [place] [id number] [place] Glucose [Mass/Vol] 142 mg/dL High 74-99 [facility] Comment on above: Order Comment: Elmo patterson Type: BLOOD SPECIMENOrdering Facility: [facility] Address: [address] [place] [address] Result Comment: The [place] [employer] (ADA) provides guidance for cutoff values for fasting glucose and random glucose. The ADA defines fasting as no caloric intake for at least 8 hours. Fasting plasma glucose results between 100 to 125 mg/dL indicate increased risk for diabetes (prediabetes).Fasting plasma glucose results greater than or equal to 126 mg/dL meet the criteria for diagnosis of diabetes. In the absence of unequivocal hyperglycemia, results should be confirmed by repeat testing. In a patient with classic symptoms of hyperglycemia or hyperglycemic crisis, random plasma glucose results greater than or equal to 200 mg/dL meet the criteria for diagnosis of diabetes.Reference: Standards of Medical Care in Diabetes 2016, [place] [employer]. Diabetes Care. 2016.39(Suppl 1). Performed By: #### 1 9123-9, , 2776-08 ####[facility] LABCLIA [id number] [place] [address] [place] Potassium [Moles/Vol] 3.4 mmol/L Low 3.7-5.[address] [facility] Comment on above: Order Comment: Speci men Type: BLOOD SPECIMENOrdering Facility: [facility] Address: [address] [place] [address] Performed By: #### 1 9123-9, , 2776-08 ####[facility] LABCLIA [id number] [place] [address] [place] Protein [Mass/Vol] 5.7 g/dL Low 6.3-8.0 [facility] Comment on above: Order Comment: Cresencioi men Type: BLOOD SPECIMENOrdering Facility: [facility] Address: [address] [place] [address] Performed By: #### 1 9123-9, , 2776-08 ####[facility] LABCLIA [id number] [place] [address] [place] Sodium [Moles/Vol] 136 mmol/L Normal 136-144 [facility] Comment on above: Order Comment: Speci men Type: BLOOD SPECIMENOrdering Facility: [facility] Address: [address] [place] [address] Performed By: #### 1 9123-9, , 2776-08 ####[facility] LABCLIA [id number] [place] [id number] [place] Urea nitrogen [Mass/Vol] 17 mg/dL Normal 9-24 [facility] Comment on above: Order Comment: Speci men Type: BLOOD SPECIMENOrdering Facility: [facility] Address: [address] [place] [address] Performed By: #### 1 9123-9, 93042-3, 2777-1 ####[facility] [id number] [place] [address] [place] Magnesium SerPl-mCncon 07-14 Magnesium [Mass/Vol] 2.1 mg/dL Normal 1.7-2.3 [facility] Comment on above: Order Comment: Speci men Type: BLOOD SPECIMENOrdering Facility: [facility] Address: [address] [place] [address] Performed By: #### 1 9123-9, 50166-0, 2777-1 ####[facility] [id number] [place] [address] [place] Magnesium [Mass/Vol] 2.1 mg/dL Normal 1.7-2.3 [facility] Comment on above: Order Comment: Speci men Type: BLOOD SPECIMENOrdering Facility: [facility] Address: [address] [place] [address] Performed By: #### 1 9123-9, 08554-2, 2777-1 ####[facility] [id number] [place] [address] [place] PT panel Coag (PPP)on 2023 INR Coag (PPP) [Relative time] 1.2 {INR} Normal 0.9-1.3 [facility] Comment on above: Order Comment: Speci men Type: BLOOD SPECIMENOrdering Facility: [facility] Address: [address] [place] [address] Result Comment: Alexa min K Antagonist (VKA) Therapeutic Range: INR 2 to 3 (Target INR of 2.5)Note: For patients treated with VKA drugs, such as warfarin, the [place] [employer] 2012 Guideline recommends a therapeutic INR range of 2 to 3 (target INR of 2.5). This recommendation includes high-risk patients with antiphospholipid syndrome with previous arterial or venous thromboembolism, current-generation mechanical or bioprosthetic aortic heart valve replacement.Note: Patients with mechanical aortic valve replacement and additional risk factors for thromboembolic events (atrial fibrillation, previous thromboembolism, LV dysfunction, hypercoagulable conditions) or an older generation mechanical AVR (i.e., ball in-Cage) or any mechanical MVR should have a INR therapeutic range of 2.5 to 3.5 (target INR of 3).Nancy GH, et al. Chest 2012, 141:7S-47SNishimura RA, et al. [facility] 2017, 70: 252-289 Performed By: #### 3 4528-0, 10412-0 ####[facility] LABCLIA [id number] [place] [address] [place] PT Coag (PPP) [Time] 12.8 s Normal 9.7-13.0 [facility] Comment on above: Order Comment: Speci men Type: BLOOD SPECIMENOrdering Facility: [facility] Address: [address] [place] [address] Performed By: #### 3 4528-0, 07364-3 ####[facility] LABCLIA [id number] [place] [address] [place] Phosphate SerPl-mCncon 07-14 Phosphate [Mass/Vol] 3.6 mg/dL Normal 2.7-4.8 [facility] Comment on above: Order Comment: Speci men Type: BLOOD SPECIMENOrdering Facility: [facility] Address: [address] [place] [address] Performed By: #### 1 9123-9, 75180-3, 2777-1 ####[facility] LABCLIA [id number] [place] [address] [place] Phosphate [Mass/Vol] 2.4 mg/dL Low 2.7-4.8 [facility] Comment on above: Order Comment: Speci men Type: BLOOD SPECIMENOrdering Facility: [facility] Address: [address] [place] [address] Performed By: #### 1 9123-9, 85867-7, 2777-1 ####[facility] LABCLIA [id number] [place] [address] [place] THERAPY NTon 07-14-2024 THERAPY NT Normal [facility] THERAPY NT Normal [facility] aPTT PPPon 07-14-2024 aPTT Coag (PPP) [Time] 27.3 s Normal 23.0-32.4 [facility] Comment on above: Order Comment: Speci men Type: BLOOD SPECIMENOrdering Facility: [facility] Address: [address] [place] [address] Performed By: #### 3 4528-0, 43503-1 ####[facility] [id number] [place] [address] [place] ANES POSTPROC EVALon 024 ANES POSTPROC EVAL Normal [facility] ANES PRE-OPon 07-13-2024 ANES PRE-OP Normal [facility] ARTERIAL BLOOD GASES WITH IO NIZED MAGNESIUMon 07-13-2024 Base deficit (BldA) [Moles/Vol] -1 mmol/L Normal -2-0 [facility] Comment on above: Order Comment: Speci men Type: ARTERIAL BLOOD SPECIMENOrdering Facility: [facility] Address: [address] [place] [address] Performed By: #### A LLMG ####[facility] [id number] [place] [address] [place] Calcium.ionized (Bld) [Mass/Vol] 1.19 mmol/L Normal 1.08-1.30 [facility] Comment on above: Order Comment: Speci men Type: ARTERIAL BLOOD SPECIMENOrdering Facility: [facility] Address: [address] [place] [address] Performed By: #### A LLMG ####[facility] [id number] [place] [address] [place] Calcium.ionized adjusted to pH 7.4 (BldA) [Moles/Vol] 1.21 mmol/L Normal 1.08-1.30 [facility] Comment on above: Order Comment: Speci men Type: ARTERIAL BLOOD SPECIMENOrdering Facility: [facility] Address: [address] [place] [address] Performed By: #### A LLMG ####[facility] [id number] [place] [address] [place] Carboxyhemoglobin (BldA) [Mass fraction] 1.0 % Normal 0.0-2.0 [facility] Comment on above: Order Comment: Speci men Type: ARTERIAL BLOOD SPECIMENOrdering Facility: [facility] Address: [address] [place] [address] Result Comment: Carb oxyhemoglobin Reference Range for Smokers: 2.0-8.0% Performed By: #### A LLMG ####[facility] [id number] [place] [address] [place] CO2 (Bld) [Partial pressure] 34 mm Hg Low 36-46 [facility] Comment on above: Order Comment: Speci men Type: ARTERIAL BLOOD SPECIMENOrdering Facility: [facility] Address: [address] [place] [address] Performed By: #### A LLMG ####[facility] [facility] [id number] [place] [address] [place] CO2 adjusted to patient's actual temperature (Bld) [Partial pressure] 34 mmHg Low 36-46 [facility] Comment on above: Order Comment: Speci men Type: ARTERIAL BLOOD SPECIMENOrdering Facility: [facility] Address: [address] [place] [address] Performed By: #### A LLMG ####[facility] LABCLIA [id number] [place] [address] [place] Glucose [Mass/Vol] 186 mg/dL High 60-105 [facility] Comment on above: Order Comment: Speci men Type: ARTERIAL BLOOD SPECIMENOrdering Facility: [facility] Address: [address] [place] [address] Performed By: #### A LLMG ####[facility] LABCLIA [id number] [place] [address] [place] HCO3 (Bld) [Moles/Vol] 22 mmol/L Normal 22-26 [facility] Comment on above: Order Comment: Speci men Type: ARTERIAL BLOOD SPECIMENOrdering Facility: [facility] Address: [address] [place] [address] Performed By: #### A LLMG ####[facility] LABCLIA [id number] [place] [address] [place] Hematocrit (Bld) [Volume fraction] 38.2 % Low 39.0-51.0 [facility] Comment on above: Order Comment: Speci men Type: ARTERIAL BLOOD SPECIMENOrdering Facility: [facility] Address: [address] [place] [address] Performed By: #### A LLMG ####[facility] LABIA [id number] [place] [address] [place] Hemoglobin (Bld) [Mass/Vol] 12.4 g/dL Low 13.0-17.0 [facility] Comment on above: Order Comment: Speci men Type: ARTERIAL BLOOD SPECIMENOrdering Facility: [facility] Address: [address] [place] [address] Performed By: #### A LLMG ####[facility] LABCLIA [id number] [place] [address] [place] Lactate [Moles/Vol] 1.6 mmol/L Normal 0.5-2.2 [facility] Comment on above: Order Comment: Speci men Type: ARTERIAL BLOOD SPECIMENOrdering Facility: [facility] Address: [address] [place] [id number] Performed By: #### A LLMG ####[facility] LABIA [id number] [address] [address] [place] Magnesium [Moles/Vol] 0.64 mmol/L High 0.45-0.60 [facility] Comment on above: Order Comment: Speci men Type: ARTERIAL BLOOD SPECIMENOrdering Facility: [facility] Address: [address] [place] [address] Performed By: #### A LLMG ####[facility] LABIA [id number] [place] [address] [place] Methemoglobin (Bld) [Mass fraction] 0.8 % Normal 0.0-1.5 [facility] Comment on above: Order Comment: Speci men Type: ARTERIAL BLOOD SPECIMENOrdering Facility: [facility] Address: [address] [place], [place] [address] Performed By: #### A LLMG ####[facility] LABIA [id number] [place] [id number] [place] Oxygen (Bld) [Partial pressure] 222 mm Hg High 85-95 [facility] Comment on above: Order Comment: Speci men Type: ARTERIAL BLOOD SPECIMENOrdering Facility: [facility] Address: [address] [id number] Performed By: #### A LLMG ####[facility] LABIA [id number] [place] [address] [place] Oxygen adjusted to patient's actual temperature (Bld) [Partial pressure] 222 mmHg High 85-95 [facility] Comment on above: Order Comment: Speci men Type: ARTERIAL BLOOD SPECIMENOrdering Facility: [facility] Address: [address] [place], [place] [address] Performed By: #### A LLMG ####[facility] LABCLIA [id number] [place] [address] [place] Oxyhemoglobin (BldA) [Mass fraction] 98 % Normal 95-98 [facility] Comment on above: Order Comment: Speci men Type: ARTERIAL BLOOD SPECIMENOrdering Facility: [facility] Address: [address] [place] [address] Performed By: #### A LLMG ####[facility] LABCLIA [id number] [place] [address] [place] pH (Bld) 7.42 [pH] Normal 7.35-7.45 [facility] Comment on above: Order Comment: Speci men Type: ARTERIAL BLOOD SPECIMENOrdering Facility: [facility] Address: [address] [place] [address] Performed By: #### A LLMG ####[facility] LABIA [id number] [place] [address] [place] pH adjusted to patient's actual temperature (Bld) 7.42 Normal 7.35-7.45 [facility] Comment on above: Order Comment: Speci men Type: ARTERIAL BLOOD SPECIMENOrdering Facility: [facility] Address: [address] [place] [address] Performed By: #### A LLMG ####[facility] LABCLIA [id number] [place] [address] [place] Potassium [Moles/Vol] 3.5 mmol/L Normal 3.5-5.[address] [facility] Comment on above: Order Comment: Speci men Type: ARTERIAL BLOOD SPECIMENOrdering Facility: [facility] Address: [address] [place] [address] Performed By: #### A LLMG ####[facility] LABIA [id number] [place] [address] [place] Sodium [Moles/Vol] 135 mmol/L Low 136-144 [facility] Comment on above: Order Comment: Speci men Type: ARTERIAL BLOOD SPECIMENOrdering Facility: [facility] Address: [address] [place] [address] Performed By: #### A LLMG ####[facility] LABCLIA [id number] [place] [address] [place] BRIEF OP NOTon 07-13-2024 BRIEF OP NOT Normal [facility] CBC W Auto Differential pane l (Bld)on 07-13-2024 Basophils (Bld) [#/Vol] 0.03 10*3/uL Normal <0.11 [facility] Comment on above: Order Comment: Speci men Type: BLOOD SPECIMENOrdering Facility: [facility] Address: [address] [place] [address] Performed By: #### 5 7021-8 ####[facility] LABCLIA [id number] [place] [address] [place] Basophils/100 WBC (Bld) 0.3 % Normal [facility] Comment on above: Order Comment: Speci men Type: BLOOD SPECIMENOrdering Facility: [facility] Address: [address] [place] [address] Performed By: #### 5 7021-8 ####[facility] LABCLIA [id number] [place] [address] [place] Differential cell count method Nom (Bld) Auto Normal [facility] Comment on above: Order Comment: Speci men Type: BLOOD SPECIMENOrdering Facility: [facility] Address: [address] [place] [address] Performed By: #### 5 7021-8 ####[facility] LABCLIA [id number] [place] [address] [place] Eosinophils (Bld) [#/Vol] 0.14 10*3/uL Normal <0.46 [facility] Comment on above: Order Comment: Speci men Type: BLOOD SPECIMENOrdering Facility: [facility] Address: [address] [place] [address] Performed By: #### 5 7021-8 ####[facility] LABCLIA [id number] [place] [address] [place] Eosinophils/100 WBC (Bld) 1.4 % Normal [facility] Comment on above: Order Comment: Speci men Type: BLOOD SPECIMENOrdering Facility: [facility] Address: [address] [place] [address] Performed By: #### 5 7021-8 ####[facility] LABCLIA [id number] [place] [address] [place] Erythrocyte distribution width (RBC) [Ratio] 13.2 % Normal 11.5-15.0 [facility] Comment on above: Order Comment: Speci men Type: BLOOD SPECIMENOrdering Facility: [facility] Address: [address] [place] [address] Performed By: #### 5 7021-8 ####[facility] LABCLIA [id number] [place] [address] [place] Hematocrit (Bld) [Volume fraction] 36.6 % Low 39.0-51.0 [facility] Comment on above: Order Comment: Speci men Type: BLOOD SPECIMENOrdering Facility: [facility] Address: [address] [place] [address] Performed By: #### 5 7021-8 ####[facility] LABCLIA [id number] [place] [address] [place] Hemoglobin (Bld) [Mass/Vol] 11.6 g/dL Low 13.0-17.0 [facility] Comment on above: Order Comment: Speci men Type: BLOOD SPECIMENOrdering Facility: [facility] Address: [address] [place] [address] Performed By: #### 5 7021-8 ####[facility] LABCLIA [id number] [place] [address] [place] Immature granulocytes (Bld) [#/Vol] 0.03 10*3/uL Normal <0.10 [facility] Comment on above: Order Comment: Speci men Type: BLOOD SPECIMENOrdering Facility: [facility] Address: [address] [place] [address] Performed By: #### 5 7021-8 ####[facility] LABCLIA [id number] [place] [address] [place] Immature granulocytes/100 WBC (Bld) 0.3 % Normal [facility] Comment on above: Order Comment: Speci men Type: BLOOD SPECIMENOrdering Facility: [facility] Address: [address] [place] [address] Performed By: #### 5 7021-8 ####[facility] LABIA [id number] [place] [address] [place] Lymphocytes (Bld) [#/Vol] 0.89 10*3/uL Low 1.00-4.00 [facility] Comment on above: Order Comment: Speci men Type: BLOOD SPECIMENOrdering Facility: [facility] Address: [address] [place] [address] Performed By: #### 5 7021-8 ####[facility] LABCLIA [id number] [place] [address] [place] Lymphocytes/100 WBC (Bld) 9.0 % Normal [facility] Comment on above: Order Comment: Speci men Type: BLOOD SPECIMENOrdering Facility: [facility] Address: [address] [place] [address] Performed By: #### 5 7021-8 ####[facility] LABCLIA [id number] [place] [address] [place] MCH (RBC) [Entitic mass] 31.6 pg Normal 26.0-34.0 [facility] Comment on above: Order Comment: Speci men Type: BLOOD SPECIMENOrdering Facility: [facility] Address: [address] [place] [address] Performed By: #### 5 7021-8 ####[facility] LABCLIA [id number] [place] [address] [place] MCHC (RBC) [Mass/Vol] 31.7 g/dL Normal 30.5-36.[address] [facility] Comment on above: Order Comment: Speci men Type: BLOOD SPECIMENOrdering Facility: [facility] Address: [address] [place] [address] Performed By: #### 5 7021-8 ####[facility] LABCLIA [id number] [place] [address] [place] MCV (RBC) [Entitic vol] 99.7 fL Normal 80.0-100.0 [facility] Comment on above: Order Comment: Speci men Type: BLOOD SPECIMENOrdering Facility: [facility] Address: [address] [place] [address] Performed By: #### 5 7021-8 ####[facility] LABCLIA [id number] [place] [address] [place] Monocytes (Bld) [#/Vol] 1.01 10*3/uL High <0.87 [facility] Comment on above: Order Comment: Speci men Type: BLOOD SPECIMENOrdering Facility: [facility] Address: [address] [place] [address] Performed By: #### 5 7021-8 ####[facility] LABCLIA [id number] [place] [address] [place] Monocytes/100 WBC (Bld) 10.2 % Normal [facility] Comment on above: Order Comment: Speci men Type: BLOOD SPECIMENOrdering Facility: [facility] Address: [address] [place] [address] Performed By: #### 5 7021-8 ####[facility] LABCLIA [id number] [place] [address] [place] Neutrophils (Bld) [#/Vol] 7.77 10*3/uL High 1.45-7.50 [facility] Comment on above: Order Comment: Speci men Type: BLOOD SPECIMENOrdering Facility: [facility] Address: [address] [place] [address] Performed By: #### 5 7021-8 ####[facility] LABCLIA [id number] [place] [address] [place] Neutrophils/100 WBC (Bld) 78.8 % Normal [facility] Comment on above: Order Comment: Speci men Type: BLOOD SPECIMENOrdering Facility: [facility] Address: [address] [place] [address] Performed By: #### 5 7021-8 ####[facility] LABCLIA [id number] [place] [address] [place] Nucleated RBC (Bld) [#/Vol] 10*3/uL Normal <0.01 [facility] Comment on above: Order Comment: Speci men Type: BLOOD SPECIMENOrdering Facility: [facility] Address: [address] [place] [address] Performed By: #### 5 7021-8 ####[facility] LABCLIA [id number] [place] [address] [place] Nucleated RBC/100 WBC (Bld) [Ratio] 0.0 /100 WBC Normal [facility] Comment on above: Order Comment: Speci men Type: BLOOD SPECIMENOrdering Facility: [facility] Address: [address] [place] [address] Performed By: #### 5 7021-8 ####[facility] LABCLIA [id number] [place] [address] [place] Platelet mean volume (Bld) [Entitic vol] 11.3 fL Normal 9.0-12.7 [facility] Comment on above: Order Comment: Speci men Type: BLOOD SPECIMENOrdering Facility: [facility] Address: [address] [place] [address] Performed By: #### 5 7021-8 ####[facility] LABCLIA [id number] [place] [address] [place] Platelets (Bld) [#/Vol] 155 10*3/uL Normal 150-400 [facility] Comment on above: Order Comment: Speci men Type: BLOOD SPECIMENOrdering Facility: [facility] Address: [address] [place] [address] Performed By: #### 5 7021-8 ####[facility] LABIA [id number] [place] [address] [place] RBC (Bld) [#/Vol] 3.67 10*6/uL Low 4.20-6.00 [facility] Comment on above: Order Comment: Speci men Type: BLOOD SPECIMENOrdering Facility: [facility] Address: [address] [place] [address] Performed By: #### 5 7021-8 ####[facility] LABIA [id number] [place] [address] [place] WBC (Bld) [#/Vol] 9.87 10*3/uL Normal 3.70-11.00 [facility] Comment on above: Order Comment: Speci men Type: BLOOD SPECIMENOrdering Facility: [facility] Address: [address] [place] [address] Performed By: #### 5 7021-8 ####[facility] LABIA [id number] [place] [address] [place] CBC panel Auto (Bld)on 07-13 Erythrocyte distribution width (RBC) [Ratio] 13.2 % Normal 11.5-15.0 [facility] Comment on above: Order Comment: Speci men Type: BLOOD SPECIMENOrdering Facility: [facility] Address: [address] [place] [address] Performed By: #### 5 8410-2 ####[facility] LABCLIA [id number] [place] [address] [place] Hematocrit (Bld) [Volume fraction] 38.3 % Low 39.0-51.0 [facility] Comment on above: Order Comment: Speci men Type: BLOOD SPECIMENOrdering Facility: [facility] Address: [address] [place] [address] Performed By: #### 5 8410-2 ####[facility] LABCLIA [id number] [place] [address] [place] Hemoglobin (Bld) [Mass/Vol] 12.6 g/dL Low 13.0-17.0 [facility] Comment on above: Order Comment: Speci men Type: BLOOD SPECIMENOrdering Facility: [facility] Address: [address] [place] [address] Performed By: #### 5 8410-2 ####[facility] LABCLIA [id number] [place] [address] [place] MCH (RBC) [Entitic mass] 32.4 pg Normal 26.0-34.0 [facility] Comment on above: Order Comment: Speci men Type: BLOOD SPECIMENOrdering Facility: [facility] Address: [address] [place] [address] Performed By: #### 5 8410-2 ####[facility] LABCLIA [id number] [place] [address] [place] MCHC (RBC) [Mass/Vol] 32.9 g/dL Normal 30.5-36.[address] [facility] Comment on above: Order Comment: Speci men Type: BLOOD SPECIMENOrdering Facility: [facility] Address: [address] [place] [address] Performed By: #### 5 8410-2 ####[facility] LABCLIA [id number] [place] [address] [place] MCV (RBC) [Entitic vol] 98.5 fL Normal 80.0-100.0 [facility] Comment on above: Order Comment: Speci men Type: BLOOD SPECIMENOrdering Facility: [facility] Address: [address] [place] [address] Performed By: #### 5 8410-2 ####[facility] LABIA [id number] [place] [address] [place] Nucleated RBC (Bld) [#/Vol] 10*3/uL Normal <0.01 [facility] Comment on above: Order Comment: Speci men Type: BLOOD SPECIMENOrdering Facility: [facility] Address: [address] [place] [address] Performed By: #### 5 8410-2 ####[facility] LABIA [id number] [place] [address] [place] Platelet mean volume (Bld) [Entitic vol] 11.8 fL Normal 9.0-12.7 [facility] Comment on above: Order Comment: Speci men Type: BLOOD SPECIMENOrdering Facility: [facility] Address: [address] [place] [address] Performed By: #### 5 8410-2 ####[facility] LABIA [id number] [place] [address] [place] Platelets (Bld) [#/Vol] 186 10*3/uL Normal 150-400 [facility] Comment on above: Order Comment: Speci men Type: BLOOD SPECIMENOrdering Facility: [facility] Address: [address] [place] [address] Performed By: #### 5 8410-2 ####[facility] LABCLIA [id number] [place] [address] [place] RBC (Bld) [#/Vol] 3.89 10*6/uL Low 4.20-6.00 [facility] Comment on above: Order Comment: Speci men Type: BLOOD SPECIMENOrdering Facility: [facility] Address: [address] [place] [address] Performed By: #### 5 8410-2 ####[facility] LABCLIA [id number] [address] [address] [place] WBC (Bld) [#/Vol] 17.54 10*3/uL High 3.70-11.00 [facility] Comment on above: Order Comment: Speci men Type: BLOOD SPECIMENOrdering Facility: [facility] Address: [address] [place] [address] Performed By: #### 5 8410-2 ####[facility] LABCLIA [id number] [place] [address] [place] Comprehensive metabolic 2000 panelon 07-13-2024 Albumin [Mass/Vol] 3.4 g/dL Low 3.9-4.9 [facility] Comment on above: Order Comment: Speci men Type: BLOOD SPECIMENOrdering Facility: [facility] Address: [address] [place] [address] Performed By: #### 1 9123-9, 89088-8, 2777-1 ####[facility] LABCLIA [id number] [place] [address] [place] ALP [Catalytic activity/Vol] 141 U/L High 38-113 [facility] Comment on above: Order Comment: Speci men Type: BLOOD SPECIMENOrdering Facility: [facility] Address: [address] [place] [address] Performed By: #### 1 9123-9, 76402-2, 2777-1 ####[facility] LABCLIA [id number] [address] [address] [place] ALT [Catalytic activity/Vol] 349 U/L High 10-54 [facility] Comment on above: Order Comment: Speci men Type: BLOOD SPECIMENOrdering Facility: [facility] Address: [address] [place] [address] Performed By: #### 1 9123-9, 57494-9, 2777- ####[facility] LABCLIA [id number] [place] [address] [place] Anion gap [Moles/Vol] 13 mmol/L Normal 8-[address] [facility] Comment on above: Order Comment: Speci men Type: BLOOD SPECIMENOrdering Facility: [facility] Address: [address] [place] [address] Performed By: #### 1 9123-9, 65875-7, 27701-31 ####[facility] LABCLIA [id number] [place] [address] [place] AST [Catalytic activity/Vol] 316 U/L High 14-40 [facility] Comment on above: Order Comment: Speci men Type: BLOOD SPECIMENOrdering Facility: [facility] Address: [address] [place] [address] Performed By: #### 1 9123-9, 63866-8, 27701-31 ####[facility] LABCLIA [id number] [place] [address] [place] Bilirubin [Mass/Vol] 1.1 mg/dL Normal 0.2-1.3 [facility] Comment on above: Order Comment: Speci men Type: BLOOD SPECIMENOrdering Facility: [facility] Address: [address] [place] [address] Performed By: #### 1 9123-9, 74123-3, 277- ####[facility] LABCLIA [id number] [place] [address] [place] Calcium [Mass/Vol] 8.4 mg/dL Low 8.5-10.2 [facility] Comment on above: Order Comment: Speci men Type: BLOOD SPECIMENOrdering Facility: [facility] Address: [address] [place] [address] Performed By: #### 1 9123-9, 41312-3, 2777-1 ####[facility] LABCLIA [id number] [place] [address] [place] Chloride [Moles/Vol] 103 mmol/L Normal 98-107 [facility] Comment on above: Order Comment: Speci men Type: BLOOD SPECIMENOrdering Facility: [facility] Address: [address] [place] [address] Performed By: #### 1 9123-9, 70535-0, 2777-1 ####[facility] LABCLIA [id number] [place] [address] [place] CO2 [Moles/Vol] 21 mmol/L Low 22-30 [facility] Comment on above: Order Comment: Speci men Type: BLOOD SPECIMENOrdering Facility: [facility] Address: [address] [place] [address] Performed By: #### 1 9123-9, 55608-4, 2777-1 ####[facility] LABIA [id number] [place] [address] [place] Creatinine [Mass/Vol] 1.28 mg/dL High 0.73-1.[address] [facility] Comment on above: Order Comment: Speci men Type: BLOOD SPECIMENOrdering Facility: [facility] Address: [address] [place] [address] Performed By: #### 1 9123-9, 54491-2, 2777-1 ####[facility] LABIA [id number] [place] [address] [place] Creatinine and Glomerular filtration rate.predicted panel (S/P/Bld) 57 mL/min/1.73m??? Low >=60 [facility] Comment on above: Order Comment: Speci men Type: BLOOD SPECIMENOrdering Facility: [facility] Address: [address] [place] [address] Result Comment: Ruby mated Glomerular Filtration Rate (eGFR) is calculated using the 2020 CKD-EPI creatinine equation. This equation utilizes serum creatinine, sex, and age as parameters. The creatinine assay has traceable calibration to isotope dilution-mass spectrometry. Refer to KDIGO guidelines for clinical interpretation. In patients with unstable renal function, e.g. those with acute kidney injury, the eGFR may not accurately reflect actual GFR. Performed By: #### 1 9123-9, 65881-8, 2776-08 ####[facility] LABCLIA [id number] [place] [address] [place] Glucose [Mass/Vol] 185 mg/dL High 74-99 [facility] Comment on above: Order Comment: Specjames patterson Type: BLOOD SPECIMENOrdering Facility: [facility] Address: [address] [place] [address] Result Comment: The [place] [employer] (ADA) provides guidance for cutoff values for fasting glucose and random glucose. The ADA defines fasting as no caloric intake for at least 8 hours. Fasting plasma glucose results between 100 to 125 mg/dL indicate increased risk for diabetes (prediabetes).Fasting plasma glucose results greater than or equal to 126 mg/dL meet the criteria for diagnosis of diabetes. In the absence of unequivocal hyperglycemia, results should be confirmed by repeat testing. In a patient with classic symptoms of hyperglycemia or hyperglycemic crisis, random plasma glucose results greater than or equal to 200 mg/dL meet the criteria for diagnosis of diabetes.Reference: Standards of Medical Care in Diabetes 2016, [place] [employer]. Diabetes Care. 2016.39(Suppl 1). Performed By: #### 1 9123-9, 84766-7, 2776-08 ####[facility] LABIA [id number] [place] [id number] [place] Potassium [Moles/Vol] 3.5 mmol/L Low 3.7-5.[address] [facility] Comment on above: Order Comment: Speci men Type: BLOOD SPECIMENOrdering Facility: [facility] Address: [address] [place] [address] Performed By: #### 1 9123-9, 27620-4, 2776-08 ####[facility] LABCLIA [id number] [address] [address] [place] Protein [Mass/Vol] 6.1 g/dL Low 6.3-8.0 [facility] Comment on above: Order Comment: Speci men Type: BLOOD SPECIMENOrdering Facility: [facility] Address: [address] [place] [address] Performed By: #### 1 9123-9, 99541-6, 2776-08 ####[facility] LABCLIA [id number] [place] [address] [place] Sodium [Moles/Vol] 137 mmol/L Normal 136-144 [facility] Comment on above: Order Comment: Speci men Type: BLOOD SPECIMENOrdering Facility: [facility] Address: [address] [place] [address] Performed By: #### 1 9123-9, 94125-1, 2776-08 ####[facility] LABCLIA [id number] [place] [address] [place] Urea nitrogen [Mass/Vol] 19 mg/dL Normal 9-24 [facility] Comment on above: Order Comment: Speci men Type: BLOOD SPECIMENOrdering Facility: [facility] Address: [address] [place] [address] Performed By: #### 1 9123-9, 53240-3, 2776-08 ####[facility] LABCLIA [id number] [address] [address] [place] Albumin [Mass/Vol] 3.2 g/dL Low 3.9-4.9 [facility] Comment on above: Order Comment: Speci men Type: BLOOD SPECIMENOrdering Facility: [facility] Address: [address] [place] [address] Performed By: #### 2 4323-8, 2777-1, 62056-6 ####[facility] LABCLIA [id number] [address] [address] [place] ALP [Catalytic activity/Vol] 118 U/L High 38-113 [facility] Comment on above: Order Comment: Speci men Type: BLOOD SPECIMENOrdering Facility: [facility] Address: [address] [place] [address] Performed By: #### 2 4323-8, 277-1, ####[facility] LABCLIA [id number] [place] [id number] [place] ALT [Catalytic activity/Vol] 201 U/L High 10-54 [facility] Comment on above: Order Comment: Speci men Type: BLOOD SPECIMENOrdering Facility: [facility] Address: [address] [place] [address] Performed By: #### 2 4323-8, 27701-31, ####[facility] LABCLIA [id number] [place] [address] [place] Anion gap [Moles/Vol] 11 mmol/L Normal 8-[address] [facility] Comment on above: Order Comment: Speci men Type: BLOOD SPECIMENOrdering Facility: [facility] Address: [address] [place] [address] Performed By: #### 2 4323-8, 27701-31, ####[facility] LABCLIA [id number] [place] [address] [place] AST [Catalytic activity/Vol] 142 U/L High 14-40 [facility] Comment on above: Order Comment: Speci men Type: BLOOD SPECIMENOrdering Facility: [facility] Address: [address] [place] [address] Performed By: #### 2 4323-8, 277-1, ####[facility] LABCLIA [id number] [place] [id number] [place] Bilirubin [Mass/Vol] 0.7 mg/dL Normal 0.2-1.3 [facility] Comment on above: Order Comment: Speci men Type: BLOOD SPECIMENOrdering Facility: [facility] Address: [address] [place] [address] Performed By: #### 2 4323-8, 2776-08, ####[facility] LABCLIA [id number] [place] [address] [place] Calcium [Mass/Vol] 8.5 mg/dL Normal 8.5-10.2 [facility] Comment on above: Order Comment: Speci men Type: BLOOD SPECIMENOrdering Facility: [facility] Address: [address] [place] [address] Performed By: #### 2 4323-8, 2776-08, ####[facility] LABCLIA [id number] [place] [address] [place] Chloride [Moles/Vol] 103 mmol/L Normal 98-107 [facility] Comment on above: Order Comment: Speci men Type: BLOOD SPECIMENOrdering Facility: [facility] Address: [address] [place] [address] Performed By: #### 2 4323-8, 2776-08, ####[facility] LABCLIA [id number] [place] [address] [place] CO2 [Moles/Vol] 24 mmol/L Normal 22-30 [facility] Comment on above: Order Comment: Speci men Type: BLOOD SPECIMENOrdering Facility: [facility] Address: [address] [place] [address] Performed By: #### 2 4323-8, 2776-08, ####[facility] LABCLIA [id number] [address] [address] [place] Creatinine [Mass/Vol] 1.30 mg/dL High 0.73-1.[address] [facility] Comment on above: Order Comment: Elmo patterson Type: BLOOD SPECIMENOrdering Facility: [facility] Address: [address] [place] [address] Performed By: #### 2 4323-8, 2776-08, ####[facility] LABCLIA [id number] [place] [address] [place] Creatinine and Glomerular filtration rate.predicted panel (S/P/Bld) 56 mL/min/1.73m??? Low >=60 [facility] Comment on above: Order Comment: Elmo patterson Type: BLOOD SPECIMENOrdering Facility: [facility] Address: [address] [place] [address] Result Comment: Ruby mated Glomerular Filtration Rate (eGFR) is calculated using the 2020 CKD-EPI creatinine equation. This equation utilizes serum creatinine, sex, and age as parameters. The creatinine assay has traceable calibration to isotope dilution-mass spectrometry. Refer to KDIGO guidelines for clinical interpretation. In patients with unstable renal function, e.g. those with acute kidney injury, the eGFR may not accurately reflect actual GFR. Performed By: #### 2 4323-8, 2776-08, ####[facility] LABCLIA [id number] [place] [address] [place] Glucose [Mass/Vol] 90 mg/dL Normal 74-99 [facility] Comment on above: Order Comment: Elmo patterson Type: BLOOD SPECIMENOrdering Facility: [facility] Address: [address] [place] [address] Result Comment: The [place] [employer] (ADA) provides guidance for cutoff values for fasting glucose and random glucose. The ADA defines fasting as no caloric intake for at least 8 hours. Fasting plasma glucose results between 100 to 125 mg/dL indicate increased risk for diabetes (prediabetes).Fasting plasma glucose results greater than or equal to 126 mg/dL meet the criteria for diagnosis of diabetes. In the absence of unequivocal hyperglycemia, results should be confirmed by repeat testing. In a patient with classic symptoms of hyperglycemia or hyperglycemic crisis, random plasma glucose results greater than or equal to 200 mg/dL meet the criteria for diagnosis of diabetes.Reference: Standards of Medical Care in Diabetes 2016, [place] [employer]. Diabetes Care. 2016.39(Suppl 1). Performed By: #### 2 4323-8, 2776-08, ####[facility] LABCLIA [id number] [address] [address] [place] Potassium [Moles/Vol] 3.3 mmol/L Low 3.7-5.[address] [facility] Comment on above: Order Comment: Speci men Type: BLOOD SPECIMENOrdering Facility: [facility] Address: [address] [place] [address] Performed By: #### 2 4323-8, 27701-31, ####[facility] LABCLIA [id number] [address] [address] [place] Protein [Mass/Vol] 5.7 g/dL Low 6.3-8.0 [facility] Comment on above: Order Comment: Speci men Type: BLOOD SPECIMENOrdering Facility: [facility] Address: [address] [place] [address] Performed By: #### 2 4323-8, 2776-08, ####[facility] LABCLIA [id number] [address] [address] [place] Sodium [Moles/Vol] 138 mmol/L Normal 136-144 [facility] Comment on above: Order Comment: Speci men Type: BLOOD SPECIMENOrdering Facility: [facility] Address: [address] [place] [address] Performed By: #### 2 4323-8, 2776-08, ####[facility] LABCLIA [id number] [address] [address] [place] Urea nitrogen [Mass/Vol] 18 mg/dL Normal 9-24 [facility] Comment on above: Order Comment: Speci men Type: BLOOD SPECIMENOrdering Facility: [facility] Address: [address] [place], [place] [address] Performed By: #### 2 4323-8, 2777-1, ####[facility] LABCLIA [id number] [place] [id number] [place] ECG COMPLETEon 07-13-2024 ECG COMPLETE Normal [facility] Magnesium SerPl-mCncon 07-13 Magnesium [Mass/Vol] 2.1 mg/dL Normal 1.7-2.3 [facility] Comment on above: Order Comment: Speci men Type: BLOOD SPECIMENOrdering Facility: [facility] Address: [address] [place] [address] Performed By: #### 1 9123-9, 89305-6, 2776-08 ####[facility] LABCLIA [id number] [place] [address] [place] Magnesium [Mass/Vol] 2.2 mg/dL Normal 1.7-2.3 [facility] Comment on above: Order Comment: Speci men Type: BLOOD SPECIMENOrdering Facility: [facility] Address: [address] [place] [address] Performed By: #### 2 4323-8, 2777-1, ####[facility] LABCLIA [id number] [place] [address] [place] OPERATIVE NOon 07-13-2024 OPERATIVE NO Normal [facility] PT panel Coag (PPP)on 2023 INR Coag (PPP) [Relative time] 1.1 {INR} Normal 0.9-1.3 [facility] Comment on above: Order Comment: Speci men Type: BLOOD SPECIMENOrdering Facility: [facility] Address: [address] [place] [address] Result Comment: Alexa min K Antagonist (VKA) Therapeutic Range: INR 2 to 3 (Target INR of 2.5)Note: For patients treated with VKA drugs, such as warfarin, the [place] [employer] 2012 Guideline recommends a therapeutic INR range of 2 to 3 (target INR of 2.5). This recommendation includes high-risk patients with antiphospholipid syndrome with previous arterial or venous thromboembolism, current-generation mechanical or bioprosthetic aortic heart valve replacement.Note: Patients with mechanical aortic valve replacement and additional risk factors for thromboembolic events (atrial fibrillation, previous thromboembolism, LV dysfunction, hypercoagulable conditions) or an older generation mechanical AVR (i.e., ball in-Cage) or any mechanical MVR should have a INR therapeutic range of 2.5 to 3.5 (target INR of 3).Nancy PATIÑO, et al. Chest 2012, 141:7S-47SNishroman RA, et al. [facility] 2017, 70: 252-289 Performed By: #### 3 4528-0 ####[facility] LABIA [id number] [place] [address] [place] PT Coag (PPP) [Time] 12.1 s Normal 9.7-13.0 [facility] Comment on above: Order Comment: Speci men Type: BLOOD SPECIMENOrdering Facility: [facility] Address: [address] [place] [address] Performed By: #### 3 4528-0 ####[facility] [id number] [place] [address] [place] Phosphate SerPl-mCncon 07-13 Phosphate [Mass/Vol] 3.1 mg/dL Normal 2.7-4.8 [facility] Comment on above: Order Comment: Speci men Type: BLOOD SPECIMENOrdering Facility: [facility] Address: [address] [place] [address] Performed By: #### 1 9123-9, 54066-5, 2777-1 ####[facility] LABIA [id number] [place] [address] [place] Phosphate [Mass/Vol] 3.3 mg/dL Normal 2.7-4.8 [facility] Comment on above: Order Comment: Speci men Type: BLOOD SPECIMENOrdering Facility: [facility] Address: [address] [place] [address] Performed By: #### 2 4323-8, 2777-1, 56826-2 ####[facility] LABCLIA [id number] [place] [address] [place] STAPHYLOCOCCUS AUREUS AND MR SA SCREEN, PCR, NASALon 07-13-2024 S. aureus and MRSA panel SHERRY+probe (Nose) Methicillin-RESISTANT Staphylococcus aureus (MRSA) Detected Abnormal Not Detected [facility] Comment on above: Order Comment: Speci men Type: SWABOrdering Facility: [facility] Address: [address] [place] [address] Performed By: #### S APCR ####[facility] LABCLIA [id number] [address] [place] SURGICAL PATHOLOGYon 024 CASE REPORT Normal [facility] Comment on above: Order Comment: Speci men Type: TISSUE SPECIMENOrdering Facility: [facility] Address: [address] [place] [address] Result Comment: Surg ical Pathology Report Case: [id number] Provider: Escobar Givens MD Collected: 07/13/2024 11:18 AMOrdering Location: Admitting Received: 07/13/2024 02:40 PMPathologist: Gurdeep Mendoza MDSpecimen: Gallbladder Performed By: #### S ####[facility] LABCLIA [id number] [address] [place] CLINICAL HISTORY Normal [facility] Comment on above: Order Comment: Speci men Type: TISSUE SPECIMENOrdering Facility: [facility] Address: [address] [place] [address] Result Comment: Pre- op diagnosis:Preoperative examination [Z01.818]Acute cholecystitis [K81.0] Performed By: #### S ####[facility] LABCLIA [id number] [place] FINAL DIAGNOSIS Normal [facility] Comment on above: Order Comment: Speci leonardo Type: TISSUE SPECIMENOrdering Facility: [facility] Address: [address] [place] [address] Result Comment: A. G allbladder, cholecystectomy:- Acute and chronic cholecystitis.- Benign reactive lymph node. Performed By: #### S ####[facility] LABCLIA [id number] [address] OF [facility] FINAL PERFORMING LAB Normal [facility] Comment on above: Order Comment: Speci leonardo Type: TISSUE SPECIMENOrdering Facility: [facility] Address: [address] [place] [address] Result Comment: Diag nostic interpretation performed at [place] [address] CLIA# [id number] Director: Tom Danielle M.D. Performed By: #### S ####[facility] LABCLIA [id number] [address] [place] GROSS DESCRIPTION A. Gallbladder Normal [facility] Comment on above: Order Comment: Elmo patterson Type: TISSUE SPECIMENOrdering Facility: [facility] Address: [address] [place] [address] Result Comment: Rece ived fresh labeled gallbladder is a disrupted 5.7 x 2.5 x 1.4 cm gallbladder with attached 0.2 cm in length by 0.1 cm in diameter proximally stapled cystic duct. The serosal surface is pink-purple and moderately dusky. The hepatic bed is rough, irregular and disrupted. Opening reveals a scant amount of brown viscous bile. No calculi are present within the specimen or specimen container. The mucosal surface is pink-purple and moderately dusky with a wall thickness of up to 4 mm. No polyps or discrete lesions are identified. Pipe Changer sections to include cystic duct margin are submitted in one cassette.Gross examination performed at [facility], [address] [place], [place] [address]NEH 07/13/24 Performed By: #### S ####[facility] LABCLIA [id number] [place] [address] [place] ANES POSTPROC EVALon 024 ANES POSTPROC EVAL Normal [facility] ANES PRE-OPon 07-12-2024 ANES PRE-OP Normal [facility] CASE MGT INIT ASSESon 2023 CASE MGT INIT ASSES Normal [facility] CBC panel Auto (Bld)on 07-12 Erythrocyte distribution width (RBC) [Ratio] 13.2 % Normal 11.5-15.0 [facility] Comment on above: Order Comment: Speci men Type: BLOOD SPECIMENOrdering Facility: [facility] Address: [address] [place] [address] Performed By: #### 5 8410-2 ####[facility] LABCLIA [id number] [place] [address] [place] Hematocrit (Bld) [Volume fraction] 38.3 % Low 39.0-51.0 [facility] Comment on above: Order Comment: Speci men Type: BLOOD SPECIMENOrdering Facility: [facility] Address: [address] [place] [address] Performed By: #### 5 8410-2 ####[facility] LABCLIA [id number] [place] [address] [place] Hemoglobin (Bld) [Mass/Vol] 12.5 g/dL Low 13.0-17.0 [facility] Comment on above: Order Comment: Speci men Type: BLOOD SPECIMENOrdering Facility: [facility] Address: [address] [place] [address] Performed By: #### 5 8410-2 ####[facility] LABCLIA [id number] [place] [address] [place] MCH (RBC) [Entitic mass] 31.8 pg Normal 26.0-34.0 [facility] Comment on above: Order Comment: Speci men Type: BLOOD SPECIMENOrdering Facility: [facility] Address: [address] [place] [address] Performed By: #### 5 8410-2 ####[facility] LABCLIA [id number] [place] [address] [place] MCHC (RBC) [Mass/Vol] 32.6 g/dL Normal 30.5-36.[address] [facility] Comment on above: Order Comment: Speci men Type: BLOOD SPECIMENOrdering Facility: [facility] Address: [address] [place] [address] Performed By: #### 5 8410-2 ####[facility] LABIA [id number] [place] [address] [place] MCV (RBC) [Entitic vol] 97.5 fL Normal 80.0-100.0 [facility] Comment on above: Order Comment: Speci men Type: BLOOD SPECIMENOrdering Facility: [facility] Address: [address] [place] [address] Performed By: #### 5 8410-2 ####[facility] LABIA [id number] [place] [address] [place] Nucleated RBC (Bld) [#/Vol] 10*3/uL Normal <0.01 [facility] Comment on above: Order Comment: Speci men Type: BLOOD SPECIMENOrdering Facility: [facility] Address: [address] [place] [address] Performed By: #### 5 8410-2 ####[facility] LABIA [id number] [place] [address] [place] Platelet mean volume (Bld) [Entitic vol] 11.8 fL Normal 9.0-12.7 [facility] Comment on above: Order Comment: Speci men Type: BLOOD SPECIMENOrdering Facility: [facility] Address: [address] [place] [address] Performed By: #### 5 8410-2 ####[facility] LABCLIA [id number] [place] [id number] [place] Platelets (Bld) [#/Vol] 163 10*3/uL Normal 150-400 [facility] Comment on above: Order Comment: Speci men Type: BLOOD SPECIMENOrdering Facility: [facility] Address: [address] [place] [address] Performed By: #### 5 8410-2 ####[facility] LABIA [id number] [place] [address] [place] RBC (Bld) [#/Vol] 3.93 10*6/uL Low 4.20-6.00 [facility] Comment on above: Order Comment: Speci men Type: BLOOD SPECIMENOrdering Facility: [facility] Address: [address] [place] [address] Performed By: #### 5 8410-2 ####[facility] LABIA [id number] [place] [address] [place] WBC (Bld) [#/Vol] 9.00 10*3/uL Normal 3.70-11.00 [facility] Comment on above: Order Comment: Speci men Type: BLOOD SPECIMENOrdering Facility: [facility] Address: [address] [place] [address] Performed By: #### 5 8410-2 ####[facility] LABIA [id number] [place] [id number] [place] Comprehensive metabolic 2000 panelon 07-12-2024 Albumin [Mass/Vol] 3.7 g/dL Low 3.9-4.9 [facility] Comment on above: Order Comment: Speci men Type: BLOOD SPECIMENOrdering Facility: [facility] Address: [address] [place] [address] Performed By: #### 2 4323-8, , 2776-08 ####[facility] LABCLIA [id number] [address] [address] [place] ALP [Catalytic activity/Vol] 140 U/L High 38-113 [facility] Comment on above: Order Comment: Speci men Type: BLOOD SPECIMENOrdering Facility: [facility] Address: [address] [place] [address] Performed By: #### 2 4323-8, , 2776-08 ####[facility] LABCLIA [id number] [place] [address] [place] ALT [Catalytic activity/Vol] 211 U/L High 10-54 [facility] Comment on above: Order Comment: Speci men Type: BLOOD SPECIMENOrdering Facility: [facility] Address: [address] [place] [address] Performed By: #### 2 4323-8, , 2776-08 ####[facility] LABIA [id number] [place] [address] [place] Anion gap [Moles/Vol] 14 mmol/L Normal 8-[address] [facility] Comment on above: Order Comment: Speci men Type: BLOOD SPECIMENOrdering Facility: [facility] Address: [address] [place] [address] Performed By: #### 2 4323-8, , 2776-08 ####[facility] LABCLIA [id number] [place] [id number] [place] AST [Catalytic activity/Vol] 154 U/L High 14-40 [facility] Comment on above: Order Comment: Speci men Type: BLOOD SPECIMENOrdering Facility: [facility] Address: [address] [place] [address] Performed By: #### 2 4323-8, , 2776-08 ####[facility] LABCLIA [id number] [place] [address] [place] Bilirubin [Mass/Vol] 0.8 mg/dL Normal 0.2-1.3 [facility] Comment on above: Order Comment: Speci men Type: BLOOD SPECIMENOrdering Facility: [facility] Address: [address] [place] [address] Performed By: #### 2 4323-8, , 2776-08 ####[facility] LABCLIA [id number] [place] [address] [place] Calcium [Mass/Vol] 8.9 mg/dL Normal 8.5-10.2 [facility] Comment on above: Order Comment: Speci men Type: BLOOD SPECIMENOrdering Facility: [facility] Address: [address] [place] [address] Performed By: #### 2 432-8, , 2776-08 ####[facility] LABCLIA [id number] [place] [address] [place] Chloride [Moles/Vol] 101 mmol/L Normal 98-107 [facility] Comment on above: Order Comment: Speci men Type: BLOOD SPECIMENOrdering Facility: [facility] Address: [address] [place] [address] Performed By: #### 2 4323-8, , 2776-08 ####[facility] LABCLIA [id number] [place] [address] [place] CO2 [Moles/Vol] 25 mmol/L Normal 22-30 [facility] Comment on above: Order Comment: Speci men Type: BLOOD SPECIMENOrdering Facility: [facility] Address: [address] [place] [address] Performed By: #### 2 4323-8, , 2776-08 ####[facility] LABCLIA [id number] [place] [id number] [place] Creatinine [Mass/Vol] 1.41 mg/dL High 0.73-1.[address] [facility] Comment on above: Order Comment: Elmo patterson Type: BLOOD SPECIMENOrdering Facility: [facility] Address: [address] [place] [address] Performed By: #### 2 4323-8, 58070-6, 2776-08 ####[facility] LABCLIA [id number] [place] [address] [place] Creatinine and Glomerular filtration rate.predicted panel (S/P/Bld) 51 mL/min/1.73m??? Low >=60 [facility] Comment on above: Order Comment: Elmo patterson Type: BLOOD SPECIMENOrdering Facility: [facility] Address: [address] [place] [address] Result Comment: Ruby mated Glomerular Filtration Rate (eGFR) is calculated using the 2020 CKD-EPI creatinine equation. This equation utilizes serum creatinine, sex, and age as parameters. The creatinine assay has traceable calibration to isotope dilution-mass spectrometry. Refer to KDIGO guidelines for clinical interpretation. In patients with unstable renal function, e.g. those with acute kidney injury, the eGFR may not accurately reflect actual GFR. Performed By: #### 2 4323-8, , 2776-08 ####[facility] LABCLIA [id number] [place] [id number] [place] Glucose [Mass/Vol] 102 mg/dL High 74-99 [facility] Comment on above: Order Comment: Elmo patterson Type: BLOOD SPECIMENOrdering Facility: [facility] Address: [address] [place] [address] Result Comment: The [place] [employer] (ADA) provides guidance for cutoff values for fasting glucose and random glucose. The ADA defines fasting as no caloric intake for at least 8 hours. Fasting plasma glucose results between 100 to 125 mg/dL indicate increased risk for diabetes (prediabetes).Fasting plasma glucose results greater than or equal to 126 mg/dL meet the criteria for diagnosis of diabetes. In the absence of unequivocal hyperglycemia, results should be confirmed by repeat testing. In a patient with classic symptoms of hyperglycemia or hyperglycemic crisis, random plasma glucose results greater than or equal to 200 mg/dL meet the criteria for diagnosis of diabetes.Reference: Standards of Medical Care in Diabetes 2016, [place] [employer]. Diabetes Care. 2016.39(Suppl 1). Performed By: #### 2 4323-8, , 2776-08 ####[facility] LABCLIA [id number] [place] [address] [place] Potassium [Moles/Vol] 3.2 mmol/L Low 3.7-5.[address] [facility] Comment on above: Order Comment: Speci men Type: BLOOD SPECIMENOrdering Facility: [facility] Address: [address] [place] [address] Performed By: #### 2 432-8, , 2776-08 ####[facility] LABCLIA [id number] [place] [address] [place] Protein [Mass/Vol] 6.3 g/dL Normal 6.3-8.0 [facility] Comment on above: Order Comment: Speci men Type: BLOOD SPECIMENOrdering Facility: [facility] Address: [address] [place] [address] Performed By: #### 2 4322-8, , 2776-08 ####[facility] LABCLIA [id number] [place] [address] [place] Sodium [Moles/Vol] 140 mmol/L Normal 136-144 [facility] Comment on above: Order Comment: Speci men Type: BLOOD SPECIMENOrdering Facility: [facility] Address: [address] [place] [address] Performed By: #### 2 4323-8, , 2776-08 ####[facility] LABCLIA [id number] [facility] [address] [address] [place] Urea nitrogen [Mass/Vol] 19 mg/dL Normal 9-24 [facility] Comment on above: Order Comment: Speci men Type: BLOOD SPECIMENOrdering Facility: [facility] Address: [address] [place], [place] [address] Performed By: #### 2 4323-8, 18028-2, 2777-1 ####[facility] LABCLIA [id number] [place] [id number] [place] ERCPon 07-12-2024 ERCP Normal [facility] HISTORY PHYSICALon HISTORY PHYSICAL Normal [facility] Magnesium SerPl-mCncon 07-12 Magnesium [Mass/Vol] 2.4 mg/dL High 1.7-2.3 [facility] Comment on above: Order Comment: Elmo patterson Type: BLOOD SPECIMENOrdering Facility: [facility] Address: [address] [place] [address] Performed By: #### 2 4323-8, 21237-4, 2777-1 ####[facility] LABCLIA [id number] [place] [id number] [place] NURSING PROGon 07-12-2024 NURSING PROG Normal [facility] NURSING PROG Normal [facility] NURSING PROG Normal [facility] PT panel Coag (PPP)on 2023 INR Coag (PPP) [Relative time] 1.1 {INR} Normal 0.9-1.3 [facility] Comment on above: Order Comment: Elmo patterson Type: BLOOD SPECIMENOrdering Facility: [facility] Address: [address] [place] [address] Result Comment: Alexa min K Antagonist (VKA) Therapeutic Range: INR 2 to 3 (Target INR of 2.5)Note: For patients treated with VKA drugs, such as warfarin, the [place] [employer] 2012 Guideline recommends a therapeutic INR range of 2 to 3 (target INR of 2.5). This recommendation includes high-risk patients with antiphospholipid syndrome with previous arterial or venous thromboembolism, current-generation mechanical or bioprosthetic aortic heart valve replacement.Note: Patients with mechanical aortic valve replacement and additional risk factors for thromboembolic events (atrial fibrillation, previous thromboembolism, LV dysfunction, hypercoagulable conditions) or an older generation mechanical AVR (i.e., ball in-Cage) or any mechanical MVR should have a INR therapeutic range of 2.5 to 3.5 (target INR of 3).Nancy PATIÑO, et al. Chest 2012, 141:7S-47STreva RA, et al. [facility] 2017, 70: 252-289 Performed By: #### 1 4979-9, 81177-9 ####[facility] LABCLIA [id number] [place] [address] [place] PT Coag (PPP) [Time] 11.7 s Normal 9.7-13.0 [facility] Comment on above: Order Comment: Speci men Type: BLOOD SPECIMENOrdering Facility: [facility] Address: [address] [place] [address] Performed By: #### 1 4979-9, 60914-9 ####[facility] LABIA [id number] [place] [address] [place] Phosphate SerPl-mCncon 07-12 Phosphate [Mass/Vol] 3.5 mg/dL Normal 2.7-4.8 [facility] Comment on above: Order Comment: Speci men Type: BLOOD SPECIMENOrdering Facility: [facility] Address: [address] [place] [address] Performed By: #### 2 4323-8, 11060-1, 2777-1 ####[facility] LABIA [id number] [place] [address] [place] aPTT PPPon 07-12-2024 aPTT Coag (PPP) [Time] 20.8 s Low 23.0-32.4 [facility] Comment on above: Order Comment: Speci men Type: BLOOD SPECIMENOrdering Facility: [facility] Address: [address] [place] [address] Performed By: #### 1 4979-9, 01739-1 ####[facility] LABCLIA [id number] [place] [address] [place] CBC W Auto Differential pane l (Bld)on 07-08-2024 Basophils (Bld) [#/Vol] 0.04 10*3/uL Normal <0.11 [facility] Comment on above: Order Comment: Speci men Type: BLOOD SPECIMENOrdering Facility: [facility] Address: [address] [place] [address] Performed By: #### 5 7021-8 ####[facility] LABCLIA [id number] [place] [address] [place] Basophils/100 WBC (Bld) 0.5 % Normal [facility] Comment on above: Order Comment: Speci men Type: BLOOD SPECIMENOrdering Facility: [facility] Address: [address] [place] [address] Performed By: #### 5 7021-8 ####[facility] LABCLIA [id number] [place] [address] [place] Differential cell count method Nom (Bld) Auto Normal [facility] Comment on above: Order Comment: Speci men Type: BLOOD SPECIMENOrdering Facility: [facility] Address: [address] [place] [address] Performed By: #### 5 7021-8 ####[facility] LABCLIA [id number] [place] [address] [place] Eosinophils (Bld) [#/Vol] 0.08 10*3/uL Normal <0.46 [facility] Comment on above: Order Comment: Speci men Type: BLOOD SPECIMENOrdering Facility: [facility] Address: [address] [place] [address] Performed By: #### 5 7021-8 ####[facility] LABCLIA [id number] [place] [address] [place] Eosinophils/100 WBC (Bld) 1.1 % Normal [facility] Comment on above: Order Comment: Speci men Type: BLOOD SPECIMENOrdering Facility: [facility] Address: [address] [place] [address] Performed By: #### 5 7021-8 ####[facility] LABIA [id number] [place] [address] [place] Erythrocyte distribution width (RBC) [Ratio] 13.2 % Normal 11.5-15.0 [facility] Comment on above: Order Comment: Speci men Type: BLOOD SPECIMENOrdering Facility: [facility] Address: [address] [place] [address] Performed By: #### 5 7021-8 ####[facility] LABIA [id number] [place] [address] [place] Hematocrit (Bld) [Volume fraction] 39.9 % Normal 39.0-51.0 [facility] Comment on above: Order Comment: Speci men Type: BLOOD SPECIMENOrdering Facility: [facility] Address: [address] [place] [address] Performed By: #### 5 7021-8 ####[facility] LABIA [id number] [place] [address] [place] Hemoglobin (Bld) [Mass/Vol] 12.8 g/dL Low 13.0-17.0 [facility] Comment on above: Order Comment: Speci men Type: BLOOD SPECIMENOrdering Facility: [facility] Address: [address] [place] [address] Performed By: #### 5 7021-8 ####[facility] LABIA [id number] [place] [address] [place] Immature granulocytes (Bld) [#/Vol] 0.03 10*3/uL Normal <0.10 [facility] Comment on above: Order Comment: Speci men Type: BLOOD SPECIMENOrdering Facility: [facility] Address: [address] [place] [address] Performed By: #### 5 7021-8 ####[facility] LABCLIA [id number] [place] [address] [place] Immature granulocytes/100 WBC (Bld) 0.4 % Normal [facility] Comment on above: Order Comment: Speci men Type: BLOOD SPECIMENOrdering Facility: [facility] Address: [address] [place] [address] Performed By: #### 5 7021-8 ####[facility] LABCLIA [id number] [place] [address] [place] Lymphocytes (Bld) [#/Vol] 1.00 10*3/uL Normal 1.00-4.00 [facility] Comment on above: Order Comment: Speci men Type: BLOOD SPECIMENOrdering Facility: [facility] Address: [address] [place] [address] Performed By: #### 5 7021-8 ####[facility] LABIA [id number] [place] [address] [place] Lymphocytes/100 WBC (Bld) 13.7 % Normal [facility] Comment on above: Order Comment: Speci men Type: BLOOD SPECIMENOrdering Facility: [facility] Address: [address] [place] [address] Performed By: #### 5 7021-8 ####[facility] LABIA [id number] [place] [address] [place] MCH (RBC) [Entitic mass] 31.6 pg Normal 26.0-34.0 [facility] Comment on above: Order Comment: Speci men Type: BLOOD SPECIMENOrdering Facility: [facility] Address: [address] [place] [address] Performed By: #### 5 7021-8 ####[facility] LABIA [id number] [place] [address] [place] MCHC (RBC) [Mass/Vol] 32.1 g/dL Normal 30.5-36.[address] [facility] Comment on above: Order Comment: Speci men Type: BLOOD SPECIMENOrdering Facility: [facility] Address: [address] [place] [address] Performed By: #### 5 7021-8 ####[facility] LABIA [id number] [place] [address] [place] MCV (RBC) [Entitic vol] 98.5 fL Normal 80.0-100.0 [facility] Comment on above: Order Comment: Speci men Type: BLOOD SPECIMENOrdering Facility: [facility] Address: [address] [place] [address] Performed By: #### 5 7021-8 ####[facility] LABIA [id number] [place] [address] [place] Monocytes (Bld) [#/Vol] 0.96 10*3/uL High <0.87 [facility] Comment on above: Order Comment: Speci men Type: BLOOD SPECIMENOrdering Facility: [facility] Address: [address] [place] [address] Performed By: #### 5 7021-8 ####[facility] LABIA [id number] [place] [address] [place] Monocytes/100 WBC (Bld) 13.2 % Normal [facility] Comment on above: Order Comment: Speci men Type: BLOOD SPECIMENOrdering Facility: [facility] Address: [address] [place] [address] Performed By: #### 5 7021-8 ####[facility] LABIA [id number] [place] [address] [place] Neutrophils (Bld) [#/Vol] 5.17 10*3/uL Normal 1.45-7.50 [facility] Comment on above: Order Comment: Speci men Type: BLOOD SPECIMENOrdering Facility: [facility] Address: [address] [place] [address] Performed By: #### 5 7021-8 ####[facility] LABCLIA [id number] [place] [address] [place] Neutrophils/100 WBC (Bld) 71.1 % Normal [facility] Comment on above: Order Comment: Speci men Type: BLOOD SPECIMENOrdering Facility: [facility] Address: [address] [place] [address] Performed By: #### 5 7021-8 ####[facility] LABCLIA [id number] [place] [address] [place] Nucleated RBC (Bld) [#/Vol] 10*3/uL Normal <0.01 [facility] Comment on above: Order Comment: Speci men Type: BLOOD SPECIMENOrdering Facility: [facility] Address: [address] [place] [address] Performed By: #### 5 7021-8 ####[facility] LABIA [id number] [place] [address] [place] Nucleated RBC/100 WBC (Bld) [Ratio] 0.0 /100 WBC Normal [facility] Comment on above: Order Comment: Speci men Type: BLOOD SPECIMENOrdering Facility: [facility] Address: [address] [place] [address] Performed By: #### 5 7021-8 ####[facility] LABIA [id number] [place] [address] [place] Platelet mean volume (Bld) [Entitic vol] 11.8 fL Normal 9.0-12.7 [facility] Comment on above: Order Comment: Speci men Type: BLOOD SPECIMENOrdering Facility: [facility] Address: [address] [place] [address] Performed By: #### 5 7021-8 ####[facility] LABIA [id number] [place] [address] [place] Platelets (Bld) [#/Vol] 211 10*3/uL Normal 150-400 [facility] Comment on above: Order Comment: Speci men Type: BLOOD SPECIMENOrdering Facility: [facility] Address: [address] [place] [address] Performed By: #### 5 7021-8 ####[facility] LABCLIA [id number] [place] [address] [place] RBC (Bld) [#/Vol] 4.05 10*6/uL Low 4.20-6.00 [facility] Comment on above: Order Comment: Speci men Type: BLOOD SPECIMENOrdering Facility: [facility] Address: [address] [place] [address] Performed By: #### 5 7021-8 ####[facility] LABCLIA [id number] [place] [address] [place] WBC (Bld) [#/Vol] 7.28 10*3/uL Normal 3.70-11.00 [facility] Comment on above: Order Comment: Speci men Type: BLOOD SPECIMENOrdering Facility: [facility] Address: [address] [place] [address] Performed By: #### 5 7021-8 ####[facility] LABIA [id number] [place] [address] [place] CNOVon 07-08-2024 CNOV Normal [facility] CNOV Normal [facility] Comprehensive metabolic 2000 panelon 07-08-2024 Albumin [Mass/Vol] 3.9 g/dL Normal 3.9-4.9 [facility] Comment on above: Order Comment: Speci men Type: BLOOD SPECIMENOrdering Facility: [facility] Address: [address] [place] [address] Performed By: #### 2 4323-8 ####[facility] LABCLIA [id number] [address] [id number] [address] [place] ALP [Catalytic activity/Vol] 121 U/L High 38-113 [facility] Comment on above: Order Comment: Speci men Type: BLOOD SPECIMENOrdering Facility: [facility] Address: [address] [place] [address] Performed By: #### 2 4323-8 ####[facility] LABCLIA [id number] [place] [address] [place] ALT [Catalytic activity/Vol] 129 U/L High 10-54 [facility] Comment on above: Order Comment: Speci men Type: BLOOD SPECIMENOrdering Facility: [facility] Address: [address] [place] [address] Performed By: #### 2 4323-8 ####[facility] LABCLIA [id number] [place] [address] [place] Anion gap [Moles/Vol] 14 mmol/L Normal 8-[address] [facility] Comment on above: Order Comment: Speci men Type: BLOOD SPECIMENOrdering Facility: [facility] Address: [address] [place] [address] Performed By: #### 2 4323-8 ####[facility] LABCLIA [id number] [place] [address] [place] AST [Catalytic activity/Vol] 79 U/L High 14-40 [facility] Comment on above: Order Comment: Speci men Type: BLOOD SPECIMENOrdering Facility: [facility] Address: [address] [place] [address] Performed By: #### 2 4323-8 ####[facility] LABCLIA [id number] [place] [address] [place] Bilirubin [Mass/Vol] 0.8 mg/dL Normal 0.2-1.3 [facility] Comment on above: Order Comment: Speci men Type: BLOOD SPECIMENOrdering Facility: [facility] Address: [address] [place] [address] Performed By: #### 2 4323-8 ####[facility] LABCLIA [id number] [place] [address] [place] Calcium [Mass/Vol] 9.1 mg/dL Normal 8.5-10.2 [facility] Comment on above: Order Comment: Speci men Type: BLOOD SPECIMENOrdering Facility: [facility] Address: [address] [place] [address] Performed By: #### 2 4323-8 ####[facility] LABCLIA [id number] [place] [address] [place] Chloride [Moles/Vol] 97 mmol/L Low 98-107 [facility] Comment on above: Order Comment: Speci men Type: BLOOD SPECIMENOrdering Facility: [facility] Address: [address] [place] [address] Performed By: #### 2 4323-8 ####[facility] LABCLIA [id number] [place] [address] [place] CO2 [Moles/Vol] 26 mmol/L Normal 22-30 [facility] Comment on above: Order Comment: Speci men Type: BLOOD SPECIMENOrdering Facility: [facility] Address: [address] [place] [address] Performed By: #### 2 4323-8 ####[facility] LABCLIA [id number] [place] [address] [place] Creatinine [Mass/Vol] 1.53 mg/dL High 0.73-1.[address] [facility] Comment on above: Order Comment: Speci men Type: BLOOD SPECIMENOrdering Facility: [facility] Address: [address] [place] [address] Performed By: #### 2 4323-8 ####[facility] LABCLIA [id number] [place] [address] [place] Creatinine and Glomerular filtration rate.predicted panel (S/P/Bld) 46 mL/min/1.73m??? Low >=60 [facility] Comment on above: Order Comment: Elmo patterson Type: BLOOD SPECIMENOrdering Facility: [facility] Address: [address] [place] [address] Result Comment: Ruby mated Glomerular Filtration Rate (eGFR) is calculated using the 2020 CKD-EPI creatinine equation. This equation utilizes serum creatinine, sex, and age as parameters. The creatinine assay has traceable calibration to isotope dilution-mass spectrometry. Refer to KDIGO guidelines for clinical interpretation. In patients with unstable renal function, e.g. those with acute kidney injury, the eGFR may not accurately reflect actual GFR. Performed By: #### 2 4323-8 ####[facility] [id number] [place] [address] [place] Glucose [Mass/Vol] 119 mg/dL High 74-99 [facility] Comment on above: Order Comment: Elmo patterson Type: BLOOD SPECIMENOrdering Facility: [facility] Address: [address] [place] [address] Result Comment: The [place] [employer] (ADA) provides guidance for cutoff values for fasting glucose and random glucose. The ADA defines fasting as no caloric intake for at least 8 hours. Fasting plasma glucose results between 100 to 125 mg/dL indicate increased risk for diabetes (prediabetes).Fasting plasma glucose results greater than or equal to 126 mg/dL meet the criteria for diagnosis of diabetes. In the absence of unequivocal hyperglycemia, results should be confirmed by repeat testing. In a patient with classic symptoms of hyperglycemia or hyperglycemic crisis, random plasma glucose results greater than or equal to 200 mg/dL meet the criteria for diagnosis of diabetes.Reference: Standards of Medical Care in Diabetes 2016, [place] [employer]. Diabetes Care. 2016.39(Suppl 1). Performed By: #### 2 4323-8 ####[facility] [id number] [place] [address] [place] Potassium [Moles/Vol] 3.4 mmol/L Low 3.7-5.[address] [facility] Comment on above: Order Comment: Speci men Type: BLOOD SPECIMENOrdering Facility: [facility] Address: [address] [place] [address] Performed By: #### 2 4323-8 ####[facility] LABCLIA [id number] [address] [address] [place] Protein [Mass/Vol] 6.7 g/dL Normal 6.3-8.0 [facility] Comment on above: Order Comment: Speci men Type: BLOOD SPECIMENOrdering Facility: [facility] Address: [address] [place] [address] Performed By: #### 2 4323-8 ####[facility] LABCLIA [id number] [place] [address] [place] Sodium [Moles/Vol] 137 mmol/L Normal 136-144 [facility] Comment on above: Order Comment: Speci men Type: BLOOD SPECIMENOrdering Facility: [facility] Address: [address] [place] [address] Performed By: #### 2 4323-8 ####[facility] LABCLIA [id number] [place] [address] [place] Urea nitrogen [Mass/Vol] 21 mg/dL Normal 9-24 [facility] Comment on above: Order Comment: Speci men Type: BLOOD SPECIMENOrdering Facility: [facility] Address: [address] [place] [address] Performed By: #### 2 4323-8 ####[facility] LABCLIA [id number] [place] [id number] [place] ECG COMPLETEon 07-08-2024 ECG COMPLETE Normal [facility] HISTORY PHYSICALon HISTORY PHYSICAL Normal [facility] TYPE AND SCREEN,30 DAYon ABO A Normal [facility] Comment on above: Order Comment: Speci men Type: BLOOD SPECIMENOrdering Facility: [facility] Address: [address] [place] [address] Performed By: #### T SCR30 ####[facility] BANKCLIA [id number] [place] [address] [place] Rh Nom (Bld) Positive Normal [facility] Comment on above: Order Comment: Speci men Type: BLOOD SPECIMENOrdering Facility: [facility] Address: [address] [place] [address] Performed By: #### T SCR30 ####[facility]LO[facility] BANKCLIA [id number] [place] [address] [place] CNPNon 07-01-2024 CNPN Normal [facility] CNPNon 06-14-2024 CNPN Normal [facility] HISTORY PHYSICALon HISTORY PHYSICAL Normal [facility] IR EXCHANGE CATH BILI DRAINo n 06-14-2024 IR EXCHANGE CATH BILI DRAIN Normal [facility] PT EDon 06-14-2024 PT ED Normal [facility] NURSING PROGon 06-08-2024 NURSING PROG Normal [facility] CNOVon 06-07-2024 CNOV Normal [facility] CNPNon 06-07-2024 CNPN Normal [facility] ECG 12 Leadon 05-27-2024 ECG revealed ventric ular pacemaker rhythm, abnormal ECG [facility] Work Phone: Ambulatory Visit Summaryon 1 Ambulatory Visit Summary Ambulatory Visit Summary SHAWNA HERNANDES :1945 Visit Date:05/25/2024 Ambulatory Visit Instructions Your Diagnosis Elevated PSA BPH with urinary obstruction Your Care Team Attending Physician - Jyoti Chu MD Primary Care Physician - AGUS NATION DO This Is Your Medications List Contact prescribing physician if questions or concerns Non-Formulary Medication (folic acid) amiodarone (amiodarone 200 mg Tab) aspirin (Aspir 81) atorvastatin biotin (biotin 5000 mcg oral tablet, disintegrating) bumetanide (bumetanide 1 mg Tab) carvedilol (carvedilol 12.5 mg Tab) cholecalciferol (Vitamin D3) clopidogrel (clopidogrel 75 mg Tab) methimazole (methimazole 10 mg Tab) multivitamin (Vitamin B Complex oral capsule) nitroglycerin (Nitro 0.4 mg Tab) omega-3 polyunsaturated fatty acids (Fish Oil) sacubitril-valsartan (Entresto 97 mg-103 mg oral tablet) spironolactone (spironolactone 25 mg Tab) Procedures Performed TURP - Transurethral resection of prostate (09/10/2022), Cystoscopy (07/09/2022), Pulmonary function test (04/29/2018), ICD - Internal cardiac defibrillator procedure (02/05/2018), Transrectal biopsy of prostate using ultrasound (US) guidance (03/11/2011). Discharge Vitals Heart Rate (Peripheral) 72 Blood Pressure 120/66 Height 170 cm Height 67 in Weight 80 kg Weight 176 lb BMI 27.68 What to do next You Need to Schedule the Following Appointments Follow Up with Vlad MINER, IRINA Batista, URO When: Only if needed Where: [address] [place] [phone] Medications What How Much When Instructions Unchanged amiodarone (amiodarone 200 mg Tab) By Mouth Every day Contact prescribing physician if questions or concerns Unchanged aspirin (Aspir 81) By Mouth Every day Contact prescribing physician if questions or concerns Unchanged atorvastatin 80 Milligram By Mouth Every day Contact prescribing physician if questions or concerns Unchanged biotin (biotin 5000 mcg oral tablet, disintegrating) By Mouth Every day Contact prescribing physician if questions or concerns Unchanged bumetanide (bumetanide 1 mg Tab) By Mouth Every day Contact prescribing physician if questions or concerns Unchanged carvedilol (carvedilol 12.5 mg Tab) By Mouth 2 times a day Contact prescribing physician if questions or concerns Unchanged cholecalciferol (Vitamin D3) Contact prescribing physician if questions or concerns Unchanged clopidogrel (clopidogrel 75 mg Tab) By Mouth Every day Contact prescribing physician if questions or concerns Unchanged methimazole (methimazole 10 mg Tab) By Mouth Every 8 hours Contact prescribing physician if questions or concerns Unchanged multivitamin (Vitamin B Complex oral capsule) By Mouth Every day Contact prescribing physician if questions or concerns Unchanged nitroglycerin (Nitro 0.4 mg Tab) 1 Tablets Sublingual As needed for Chest pain Contact prescribing physician if questions or concerns Unchanged Non-Formulary Medication (folic acid) Contact prescribing physician if questions or concerns Unchanged omega-3 polyunsaturated fatty acids (Fish Oil) By Mouth Contact prescribing physician if questions or concerns Unchanged sacubitril-valsartan (Entresto 97 mg-103 mg oral tablet) 1 Tablets By Mouth 2 times a day Contact prescribing physician if questions or concerns Unchanged spironolactone (spironolactone 25 mg Tab) By Mouth 2 times a day Contact prescribing physician if questions or concerns Allergies No Known Medication Allergies Problems Ongoing - Any problem that you are currently receiving treatment for. BPH with urinary obstruction Congestive heart failure COPD - Chronic obstructive pulmonary disease Elevated PSA Feeling of incomplete bladder emptying Frequency of urination Hyperlipemia Hypertension Myocardial infarction Nocturia Post-void dribbling Urgency of urination Weak urine stream Patient Survey You may receive a survey via text or e-mail asking about your office visit. Please share your experience with us by completing your survey. We appreciate your feedback and thank you for choosing us for your care. Education Materials Benign Prostatic Hyperplasia Benign prostatic hyperplasia (BPH) is an enlarged prostate gland that is caused by the normal aging process. The prostate may get bigger as a man gets older. The condition is not caused by cancer. The prostate is a walnut-sized gland that is involved in the production of semen. It is located in front of the rectum and below the bladder. The bladder stores urine. The urethra carries stored urine out of the body. An enlarged prostate can press on the urethra. This can make it harder to pass urine. The buildup of urine in the bladder can cause infection. Back pressure and infection may progress to bladder damage and kidney (renal) failure. What are the causes? This condition is part of the no (more content not included)... Normal [facility] Urology Office/Clinic Noteon 05-25-2024 Urology Office/Clinic Note Urology Office/Clinic Note Chief Complaint 1 yr f/u w/ PSA HPI Staff 1 yr w/ PSA. Previous dx: BPH with obstruction, elevated PSA. Last PSA 05/21/23 - 1.29 & 24.8% states pt did get PSA drawn, but no results yet. pt is a resident at [facility] and they said they will fax the results as soon as they get them. pt also has a bag for gallbladder, he had an infection in gallbladder but due to his heart condition they did not want to do surgery and gave drainage bag Dysuria: _no Incomplete bladder emptying: _no Hematuria: _no Frequency: _q1-2 hrs Urgency: _yes Nocturia: _1x Stream: _weak Leaking: _yes Post void dripping: _no Wearing pads/ Depends: yes Urge incontinence: _yes Stress incontinence: _no Incontinence without Sensory Awareness: _no Abdominal pain: _no Flank pain: _no Sexual complaints: _ History of Present Illness Tests reviewed: reviewed UA I have reviewed the previous health record information and history for this patient from Dr. Chu. I have reviewed and verified the staff HPI to be accurate for this encounter. Review of Systems PHQ Score Initial Depression Screen Score: 0 SCORE ROS - Provider Constitutional: denies weight loss, denies hot flashes. Eyes: denies eye problems. Gastrointestinal: denies nausea, denies vomiting. Cardiovascular: denies chest pain or angina. Integumentary: no dryness Musculoskeletal: denies musculoskeletal symptoms. ENMT: denies otolaryngeal symptoms. Respiratory: no shortness of breath. Heme/Lymph: denies easy bleeding tendency, denies easy bruising tendency. Psychiatric: no confusion, no anxiety. Genitourinary: See HPI. Physical Exam Vitals & Measurements HR: 72(Peripheral) BP: 120/66 HT: 67 in HT: 170 cm WT: 80 kg WT: 176 lb BMI: 27.68 General Appearance: alert, no distress, well nourished, well developed male. Wheelchair. Abd drainage bag with bile Assessment/Plan 79 yo M with hx of BPH/LUTS and elevated PSA here for follow up. Pt resides at [facility]. Prior Dr. Blanchard pt Pt here with his today. 1. Elevated PSA (R97.20: Elevated prostate specific antigen [PSA]) S/P TRUS/bx 03/11/11 - benign PSA 12/2010 - 6.08, 15% free 09/2011 - 7.6, 21% free 04/11/21 - 2.86 03/25/22 - 3.09 05/21/23 - 1.29 & 24.8% Pt had PSA level drawn however results are still pending. Again discussion with the patient regarding the implications of his PSA level. I explained the merits and limitations of PSA screening including the very high prevalence of prostate cancer, significant variability in regards to aggressiveness, lack of initial symptoms when the disease is curable as well as PSA's lack of specificity for prostate cancer with the potential for harm, including over-diagnosis and over-treatment. I explained that the guidelines recommend no further prostate cancer testing be performed when life expectancy is less than 10 years. Given his age and co-morbidities, it appears that he is unlikely to benefit from PSA screening. He understands that many men with prostate cancer that is untreated of other causes ( with prostate cancer, rather than from prostate cancer). I gave the patient management options moving forward and explained the risks/benefits of each one. 1) Never check PSA again. No further workup unless the patient becomes symptomatic 2) Monitor PSA and only act if it rises significantly 3) Additional further tests now including prostate MRI and additional biomarkers 4) Perform a prostate biopsy I reiterated that given his age, it is generally recommended to forgo further testing, as the risks of intervention outweigh the potential benefits of survival/oncologic outcomes. Pt elected to never check PSA again. -D/c PSA monitoring 2. BPH with urinary obstruction (N40.1: Benign prostatic hyperplasia with lower urinary tract symptoms) S/p cysto 07/09/22 S/P TURP 09/10/[address] Blanchard- path neg PVR 10/13/22 - 45 mL. IPSS 15 (9). Not taking any BPH meds. No bother with urination. Denies UTIs. UA today negative for blood and infection. -Call our office if he were to develop any urinary sxs in the future -Cont timed voiding Follow-up With When Contact Information Vlad MINER, Jyoti Jaramillo, URL, URO Only if needed [address] [place] [address]- [phone] Additional Instructions: Patient Education Benign Prostatic Hyperplasia I, Amy Rico, personally scribed for Dr. Chu on 05/25/2024 11:57:27. . Documentation recorded by the scribe, Amy Rico, accurately reflects the services(s) I performed and decisions made by me. Authenticated by Dr. Chu on 05/25/2024 12:32:55. Problem List/Past Medical History Ongoing BPH with urinary obstruction Congestive heart failure COPD - Chronic obstructive pulmonary disease Elevated PSA Feeling of incomplete bladder emptying Frequency of urination Hyperlipemia Hypertension Myocardial in (more content not included)... Normal [facility] Comment on above: Result Comment: Elec tronically Signed By: Jyoti Chu MD\.br\Date and Time Signed: 05/25/24 12:33 EDT\.br\Electronically Co-Signed By: Amy Rico\.br\Date and Time Co-Signed: 05/25/24 11:58 EDT CNCOon 05-11-2024 CNCO Letter Text Normal [facility] CASE MANAGEMon 05-10-2024 CASE MANAGEM Normal [facility] CASE MANAGEM Normal [facility] CBC panel Auto (Bld)on 05-10 Erythrocyte distribution width (RBC) [Ratio] 14.3 % Normal 11.5-15.0 [facility] Comment on above: Order Comment: Speci men Type: BLOOD SPECIMENOrdering Facility: [facility] Address: [address] [place] [address] Performed By: #### 5 8410-2 ####[facility] LABCLIA [id number] [place] [address] [place] Hematocrit (Bld) [Volume fraction] 34.7 % Low 39.0-51.0 [facility] Comment on above: Order Comment: Speci men Type: BLOOD SPECIMENOrdering Facility: [facility] Address: [address] [place] [address] Performed By: #### 5 8410-2 ####[facility]CL[facility] [id number] [place] [address] [place] Hemoglobin (Bld) [Mass/Vol] 11.0 g/dL Low 13.0-17.0 [facility] Comment on above: Order Comment: Speci men Type: BLOOD SPECIMENOrdering Facility: [facility] Address: [address] [place] [address] Performed By: #### 5 8410-2 ####[facility] LABCLIA [id number] [place] [address] [place] MCH (RBC) [Entitic mass] 32.9 pg Normal 26.0-34.0 [facility] Comment on above: Order Comment: Speci men Type: BLOOD SPECIMENOrdering Facility: [facility] Address: [address] [place] [address] Performed By: #### 5 8410-2 ####[facility] [id number] [place] [address] [place] MCHC (RBC) [Mass/Vol] 31.7 g/dL Normal 30.5-36.[address] [facility] Comment on above: Order Comment: Speci men Type: BLOOD SPECIMENOrdering Facility: [facility] Address: [address] [place] [address] Performed By: #### 5 8410-2 ####[facility] [id number] [place] [address] [place] MCV (RBC) [Entitic vol] 103.9 fL High 80.0-100.0 [facility] Comment on above: Order Comment: Speci men Type: BLOOD SPECIMENOrdering Facility: [facility] Address: [address] [place] [address] Performed By: #### 5 8410-2 ####[facility] [id number] [place] [address] [place] Nucleated RBC (Bld) [#/Vol] 10*3/uL Normal <0.01 [facility] Comment on above: Order Comment: Speci men Type: BLOOD SPECIMENOrdering Facility: [facility] Address: [address] [place] [address] Performed By: #### 5 8410-2 ####[facility] [id number] [place] [address] [place] Platelet mean volume (Bld) [Entitic vol] 11.3 fL Normal 9.0-12.7 [facility] Comment on above: Order Comment: Speci men Type: BLOOD SPECIMENOrdering Facility: [facility] Address: [address] [place] [address] Performed By: #### 5 8410-2 ####[facility]CLIA [id number] [place] [address] [place] Platelets (Bld) [#/Vol] 227 10*3/uL Normal 150-400 [facility] Comment on above: Order Comment: Speci men Type: BLOOD SPECIMENOrdering Facility: [facility] Address: [address] [place] [address] Performed By: #### 5 8410-2 ####[facility]CL[facility] [id number] [place] [address] [place] RBC (Bld) [#/Vol] 3.34 10*6/uL Low 4.20-6.00 [facility] Comment on above: Order Comment: Speci men Type: BLOOD SPECIMENOrdering Facility: [facility] Address: [address] [place] [address] Performed By: #### 5 8410-2 ####[facility]CLIA [id number] [place] [address] [place] WBC (Bld) [#/Vol] 9.32 10*3/uL Normal 3.70-11.00 [facility] Comment on above: Order Comment: Speci men Type: BLOOD SPECIMENOrdering Facility: [facility] Address: [address] [place] [address] Performed By: #### 5 8410-2 ####[facility]CLIA [id number] [place] [address] [place] CNDSon 05-10-2024 CNDS Normal [facility] Comprehensive metabolic 2000 panelon 05-10-2024 Albumin [Mass/Vol] 3.1 g/dL Low 3.9-4.9 [facility] Comment on above: Order Comment: Speci men Type: BLOOD SPECIMENOrdering Facility: [facility] Address: [address] [place] [address] Performed By: #### 2 777-1, , ####[facility] LABCLIA [id number] [place] [address] [place] ALP [Catalytic activity/Vol] 161 U/L High 38-113 [facility] Comment on above: Order Comment: Speci men Type: BLOOD SPECIMENOrdering Facility: [facility] Address: [address] [place] [address] Performed By: #### 2 777-1, , ####[facility]CLIA [id number] [place] [address] [place] ALT [Catalytic activity/Vol] 73 U/L High 10-54 [facility] Comment on above: Order Comment: Speci men Type: BLOOD SPECIMENOrdering Facility: [facility] Address: [address] [place] [address] Performed By: #### 2 777-1, , ####[facility] LABIA [id number] [place] [address] [place] Anion gap [Moles/Vol] 10 mmol/L Normal 8-[address] [facility] Comment on above: Order Comment: Speci men Type: BLOOD SPECIMENOrdering Facility: [facility] Address: [address] [place] [address] Performed By: #### 2 777-1, , ####[facility] LABIA [id number] [place] [address] [place] AST [Catalytic activity/Vol] 47 U/L High 14-40 [facility] Comment on above: Order Comment: Speci men Type: BLOOD SPECIMENOrdering Facility: [facility] Address: [address] [place] [address] Performed By: #### 2 777-1, 51171-9, ####[facility] LABCLIA [id number] [address] [address] [place] Bilirubin [Mass/Vol] 0.6 mg/dL Normal 0.2-1.3 [facility] Comment on above: Order Comment: Speci men Type: BLOOD SPECIMENOrdering Facility: [facility] Address: [address] [place] [address] Performed By: #### 2 777-1, 43408-1, ####[facility]CLIA [id number] [place] [address] [place] Calcium [Mass/Vol] 8.4 mg/dL Low 8.5-10.2 [facility] Comment on above: Order Comment: Speci men Type: BLOOD SPECIMENOrdering Facility: [facility] Address: [address] [place], [place] [address] Performed By: #### 2 777-1, 45897-9, ####[facility] LABCLIA [id number] [place] [address] [place] Chloride [Moles/Vol] 102 mmol/L Normal 98-107 [facility] Comment on above: Order Comment: Speci men Type: BLOOD SPECIMENOrdering Facility: [facility] Address: [address] [place] [address] Performed By: #### 2 777-1, 43119-1, ####[facility] LABCLIA [id number] [place] [id number] [place] CO2 [Moles/Vol] 23 mmol/L Normal 22-30 [facility] Comment on above: Order Comment: Speci men Type: BLOOD SPECIMENOrdering Facility: [facility] Address: [address] [place] [address] Performed By: #### 2 777-1, 03863-9, ####[facility] LABCLIA [id number] [address] [address] [place] Creatinine [Mass/Vol] 1.20 mg/dL Normal 0.73-1.[address] [facility] Comment on above: Order Comment: Speci men Type: BLOOD SPECIMENOrdering Facility: [facility] Address: [address] [place] [address] Performed By: #### 2 777-1, 41762-7, ####[facility] LABIA [id number] [place] [address] [place] Creatinine and Glomerular filtration rate.predicted panel (S/P/Bld) 62 mL/min/1.73m??? Normal >=60 [facility] Comment on above: Order Comment: Elmo men Type: BLOOD SPECIMENOrdering Facility: [facility] Address: [address] [place] [address] Result Comment: Ruby mated Glomerular Filtration Rate (eGFR) is calculated using the 2020 CKD-EPI creatinine equation. This equation utilizes serum creatinine, sex, and age as parameters. The creatinine assay has traceable calibration to isotope dilution-mass spectrometry. Refer to KDIGO guidelines for clinical interpretation. In patients with unstable renal function, e.g. those with acute kidney injury, the eGFR may not accurately reflect actual GFR. Performed By: #### 2 777-1, , ####[facility] LABIA [id number] [address] [address] [place] Glucose [Mass/Vol] 99 mg/dL Normal 74-99 [facility] Comment on above: Order Comment: Speci men Type: BLOOD SPECIMENOrdering Facility: [facility] Address: [address] [place] [address] Result Comment: The [place] [employer] (ADA) provides guidance for cutoff values for fasting glucose and random glucose. The ADA defines fasting as no caloric intake for at least 8 hours. Fasting plasma glucose results between 100 to 125 mg/dL indicate increased risk for diabetes (prediabetes).Fasting plasma glucose results greater than or equal to 126 mg/dL meet the criteria for diagnosis of diabetes. In the absence of unequivocal hyperglycemia, results should be confirmed by repeat testing. In a patient with classic symptoms of hyperglycemia or hyperglycemic crisis, random plasma glucose results greater than or equal to 200 mg/dL meet the criteria for diagnosis of diabetes.Reference: Standards of Medical Care in Diabetes 2016, [place] [employer]. Diabetes Care. 2016.39(Suppl 1). Performed By: #### 2 777-1, , ####[facility] LABCLIA [id number] [address] [address] [place] Potassium [Moles/Vol] 4.0 mmol/L Normal 3.7-5.[address] [facility] Comment on above: Order Comment: Speci men Type: BLOOD SPECIMENOrdering Facility: [facility] Address: [address] [place] [address] Performed By: #### 2 777-1, , ####[facility]CLIA [id number] [place] [address] [place] Protein [Mass/Vol] 5.8 g/dL Low 6.3-8.0 [facility] Comment on above: Order Comment: Speci men Type: BLOOD SPECIMENOrdering Facility: [facility] Address: [address] [place] [address] Performed By: #### 2 777-1, , ####[facility]CL[facility] [id number] [address] [address] [place] Sodium [Moles/Vol] 135 mmol/L Low 136-144 [facility] Comment on above: Order Comment: Speci men Type: BLOOD SPECIMENOrdering Facility: [facility] Address: [address] [place] [address] Performed By: #### 2 777-1, , ####[facility]CLIA [id number] [address] [address] [place] Urea nitrogen [Mass/Vol] 16 mg/dL Normal 9-24 [facility] Comment on above: Order Comment: Speci men Type: BLOOD SPECIMENOrdering Facility: [facility] Address: [address] [place] [address] Performed By: #### 2 777-1, 97344-4, 93032-1 ####[facility]CLIA [id number] [address] [address] [place] Magnesium SerPl-ncon 05-10 Magnesium [Mass/Vol] 2.4 mg/dL High 1.7-2.3 [facility] Comment on above: Order Comment: Speci men Type: BLOOD SPECIMENOrdering Facility: [facility] Address: [address] [place] [address] Performed By: #### 2 777-1, 35427-5, ####[facility] LABIA [id number] [place] [address] [place] Phosphate SerPl-mCncon 05-10 Phosphate [Mass/Vol] 3.0 mg/dL Normal 2.7-4.8 [facility] Comment on above: Order Comment: Speci men Type: BLOOD SPECIMENOrdering Facility: [facility] Address: [address] [place] [address] Performed By: #### 2 777-1, 38878-9, ####[facility] LABIA [id number] [place] [id number] [place] THERAPY NTon 05-10-2024 THERAPY NT Normal [facility] CASE MANAGEMon 05-09-2024 CASE MANAGEM Normal [facility] CBC panel Auto (Bld)on 05-09 Erythrocyte distribution width (RBC) [Ratio] 14.2 % Normal 11.5-15.0 [facility] Comment on above: Order Comment: Speci men Type: BLOOD SPECIMENOrdering Facility: [facility] Address: [address] [place] [address] Performed By: #### 5 8410-2, 36044-8 ####[facility] LABCLIA [id number] [place] [address] [place] Hematocrit (Bld) [Volume fraction] 32.9 % Low 39.0-51.0 [facility] Comment on above: Order Comment: Speci men Type: BLOOD SPECIMENOrdering Facility: [facility] Address: [address] [place] [address] Performed By: #### 5 8410-2, 49557-4 ####[facility]CLIA [id number] [place] [address] [place] Hemoglobin (Bld) [Mass/Vol] 10.6 g/dL Low 13.0-17.0 [facility] Comment on above: Order Comment: Speci men Type: BLOOD SPECIMENOrdering Facility: [facility] Address: [address] [place] [address] Performed By: #### 5 8410-2, 48165-0 ####[facility]CLIA [id number] [place] [address] [place] MCH (RBC) [Entitic mass] 32.4 pg Normal 26.0-34.0 [facility] Comment on above: Order Comment: Speci men Type: BLOOD SPECIMENOrdering Facility: [facility] Address: [address] [place] [address] Performed By: #### 5 8410-2, 57156-0 ####[facility]CLIA [id number] [place] [address] [place] MCHC (RBC) [Mass/Vol] 32.2 g/dL Normal 30.5-36.[address] [facility] Comment on above: Order Comment: Speci men Type: BLOOD SPECIMENOrdering Facility: [facility] Address: [address] [place] [address] Performed By: #### 5 8410-2, 33577-9 ####[facility] LABIA [id number] [place] [address] [place] MCV (RBC) [Entitic vol] 100.6 fL High 80.0-100.0 [facility] Comment on above: Order Comment: Speci men Type: BLOOD SPECIMENOrdering Facility: [facility] Address: [address] [place] [address] Performed By: #### 5 8410-2, 89857-6 ####[facility] [id number] [place] [address] [place] Nucleated RBC (Bld) [#/Vol] 10*3/uL Normal <0.01 [facility] Comment on above: Order Comment: Speci men Type: BLOOD SPECIMENOrdering Facility: [facility] Address: [address] [place] [address] Performed By: #### 5 8410-2, 89066-1 ####[facility] [id number] [place] [address] [place] Platelet mean volume (Bld) [Entitic vol] 11.2 fL Normal 9.0-12.7 [facility] Comment on above: Order Comment: Speci men Type: BLOOD SPECIMENOrdering Facility: [facility] Address: [address] [place] [address] Performed By: #### 5 8410-2, 66805-5 ####[facility] [id number] [place] [address] [place] Platelets (Bld) [#/Vol] 225 10*3/uL Normal 150-400 [facility] Comment on above: Order Comment: Speci men Type: BLOOD SPECIMENOrdering Facility: [facility] Address: [address] [place] [address] Performed By: #### 5 8410-2, 60510-2 ####[facility] LABCLIA [id number] [address] [address] [place] RBC (Bld) [#/Vol] 3.27 10*6/uL Low 4.20-6.00 [facility] Comment on above: Order Comment: Speci men Type: BLOOD SPECIMENOrdering Facility: [facility] Address: [address] [place] [address] Performed By: #### 5 8410-2, 22841-8 ####[facility]CLIA [id number] [place] [address] [place] WBC (Bld) [#/Vol] 7.22 10*3/uL Normal 3.70-11.00 [facility] Comment on above: Order Comment: Speci men Type: BLOOD SPECIMENOrdering Facility: [facility] Address: [address] [place] [address] Performed By: #### 5 8410-2, 16979-9 ####[facility]CL[facility] [id number] [place] [address] [place] CONSULT PROGon 05-09-2024 CONSULT PROG Normal [facility] Comprehensive metabolic 2000 panelon 05-09-2024 Albumin [Mass/Vol] 3.1 g/dL Low 3.9-4.9 [facility] Comment on above: Order Comment: Speci men Type: BLOOD SPECIMENOrdering Facility: [facility] Address: [address] [place] [address] Performed By: #### 1 9123-9, 2777-1, 58303-0 ####[facility] LABIA [id number] [place] [address] [place] ALP [Catalytic activity/Vol] 175 U/L High 38-113 [facility] Comment on above: Order Comment: Speci men Type: BLOOD SPECIMENOrdering Facility: [facility] Address: [address] [place] [address] Performed By: #### 1 9123-9, 27701-31, 18473-0 ####[facility]CLIA [id number] [place] [address] [place] ALT [Catalytic activity/Vol] 75 U/L High 10-54 [facility] Comment on above: Order Comment: Speci men Type: BLOOD SPECIMENOrdering Facility: [facility] Address: [address] [place] [address] Performed By: #### 1 9123-9, 27701-31, 66947-6 ####[facility] LABCLIA [id number] [place] [address] [place] Anion gap [Moles/Vol] 11 mmol/L Normal 8-[address] [facility] Comment on above: Order Comment: Speci men Type: BLOOD SPECIMENOrdering Facility: [facility] Address: [address] [place] [address] Performed By: #### 1 9123-9, 2776-08, 57659-3 ####[facility] LABIA [id number] [place] [address] [place] AST [Catalytic activity/Vol] 49 U/L High 14-40 [facility] Comment on above: Order Comment: Speci men Type: BLOOD SPECIMENOrdering Facility: [facility] Address: [address] [place] [address] Performed By: #### 1 9123-9, 27701-31, 58077-5 ####[facility] LABCLIA [id number] [place] [id number] [place] Bilirubin [Mass/Vol] 0.6 mg/dL Normal 0.2-1.3 [facility] Comment on above: Order Comment: Speci men Type: BLOOD SPECIMENOrdering Facility: [facility] Address: [address] [place] [address] Performed By: #### 1 9123-9, 27701-31, 13756-4 ####[facility] LABCLIA [id number] [address] [address] [place] Calcium [Mass/Vol] 8.5 mg/dL Normal 8.5-10.2 [facility] Comment on above: Order Comment: Speci men Type: BLOOD SPECIMENOrdering Facility: [facility] Address: [address] [place] [address] Performed By: #### 1 9123-9, 27701-31, ####[facility] LABCLIA [id number] [address] [address] [place] Chloride [Moles/Vol] 104 mmol/L Normal 98-107 [facility] Comment on above: Order Comment: Speci men Type: BLOOD SPECIMENOrdering Facility: [facility] Address: [address] [place] [address] Performed By: #### 1 9123-9, 27701-31, ####[facility] LABCLIA [id number] [place] [id number] [place] CO2 [Moles/Vol] 23 mmol/L Normal 22-30 [facility] Comment on above: Order Comment: Speci men Type: BLOOD SPECIMENOrdering Facility: [facility] Address: [address] [place], [place] [address] Performed By: #### 1 9123-9, 2776-08, ####[facility] LABCLIA [id number] [address] [address] [place] Creatinine [Mass/Vol] 1.27 mg/dL High 0.73-1.[address] [facility] Comment on above: Order Comment: Speci men Type: BLOOD SPECIMENOrdering Facility: [facility] Address: [address] [place], [place] [address] Performed By: #### 1 9123-9, 27701-31, 41616-1 ####[facility] LABCLIA [id number] [place] [address] [place] Creatinine and Glomerular filtration rate.predicted panel (S/P/Bld) 58 mL/min/1.73m??? Low >=60 [facility] Comment on above: Order Comment: Elmo patterson Type: BLOOD SPECIMENOrdering Facility: [facility] Address: [address] [place] [address] Result Comment: Ruby mated Glomerular Filtration Rate (eGFR) is calculated using the 2020 CKD-EPI creatinine equation. This equation utilizes serum creatinine, sex, and age as parameters. The creatinine assay has traceable calibration to isotope dilution-mass spectrometry. Refer to KDIGO guidelines for clinical interpretation. In patients with unstable renal function, e.g. those with acute kidney injury, the eGFR may not accurately reflect actual GFR. Performed By: #### 1 9123-9, 2777-1, 89187-7 ####[facility] LABCLIA [id number] [place] [address] [place] Glucose [Mass/Vol] 98 mg/dL Normal 74-99 [facility] Comment on above: Order Comment: Elmo patterson Type: BLOOD SPECIMENOrdering Facility: [facility] Address: [address] [place] [address] Result Comment: The [place] [employer] (ADA) provides guidance for cutoff values for fasting glucose and random glucose. The ADA defines fasting as no caloric intake for at least 8 hours. Fasting plasma glucose results between 100 to 125 mg/dL indicate increased risk for diabetes (prediabetes).Fasting plasma glucose results greater than or equal to 126 mg/dL meet the criteria for diagnosis of diabetes. In the absence of unequivocal hyperglycemia, results should be confirmed by repeat testing. In a patient with classic symptoms of hyperglycemia or hyperglycemic crisis, random plasma glucose results greater than or equal to 200 mg/dL meet the criteria for diagnosis of diabetes.Reference: Standards of Medical Care in Diabetes 2016, [place] [employer]. Diabetes Care. 2016.39(Suppl 1). Performed By: #### 1 9123-9, 2777-1, 32799-3 ####[facility] LABCLIA [id number] [id number] [address] [place] Potassium [Moles/Vol] 4.0 mmol/L Normal 3.7-5.[address] [facility] Comment on above: Order Comment: Speci men Type: BLOOD SPECIMENOrdering Facility: [facility] Address: [address] [place] [address] Performed By: #### 1 9123-9, 277-1, 22546-5 ####[facility] LABCLIA [id number] [place] [address] [place] Protein [Mass/Vol] 5.8 g/dL Low 6.3-8.0 [facility] Comment on above: Order Comment: Speci men Type: BLOOD SPECIMENOrdering Facility: [facility] Address: [address] [place] [address] Performed By: #### 1 9123-9, 27701-31, 37012-6 ####[facility] LABCLIA [id number] [place] [address] [place] Sodium [Moles/Vol] 138 mmol/L Normal 136-144 [facility] Comment on above: Order Comment: Speci men Type: BLOOD SPECIMENOrdering Facility: [facility] Address: [address] [place] [address] Performed By: #### 1 9123-9, 27701-31, 88618-9 ####[facility] LABCLIA [id number] [place] [address] [place] Urea nitrogen [Mass/Vol] 17 mg/dL Normal 9-24 [facility] Comment on above: Order Comment: Speci men Type: BLOOD SPECIMENOrdering Facility: [facility] Address: [address] [place] [address] Performed By: #### 1 9123-9, 277-, 19975-2 ####[facility] LABCLIA [id number] [place] [id number] [place] Magnesium SerPl-mCncon 05-09 Magnesium [Mass/Vol] 2.4 mg/dL High 1.7-2.3 [facility] Comment on above: Order Comment: Speci men Type: BLOOD SPECIMENOrdering Facility: [facility] Address: [address] [place] [address] Performed By: #### 1 9123-9, 2777-1, 65272-5 ####[facility] LABCLIA [id number] [place] [address] [place] NUTRITIONon 05-09-2024 NUTRITION Normal [facility] Phosphate SerPl-mCncon 05-09 Phosphate [Mass/Vol] 3.1 mg/dL Normal 2.7-4.8 [facility] Comment on above: Order Comment: Speci men Type: BLOOD SPECIMENOrdering Facility: [facility] Address: [address] [place] [address] Performed By: #### 1 9123-9, 2777-1, 44765-2 ####[facility] LABCLIA [id number] [place] [address] [place] Retics #on 05-09-2024 Reticulocytes (Bld) [#/Vol] 0.72750 10*3/uL Normal 0.018-0.10 0 [facility] Comment on above: Order Comment: Speci men Type: BLOOD SPECIMENOrdering Facility: [facility] Address: [address] [place] [address] Performed By: #### 5 8410-2, 27750-6 ####[facility] LABIA [id number] [place] [address] [place] Reticulocytes (Bld) [#/Vol]o n 05-09-2024 Reticulocytes/100 RBC (Bld) 2.4 % High 0.4-2.0 [facility] Comment on above: Order Comment: Speci men Type: BLOOD SPECIMENOrdering Facility: [facility] Address: [address] [place] [address] Performed By: #### 5 8410-2, 33310-1 ####[facility] LABCLIA [id number] [place] [address] [place] THERAPY NTon 05-09-2024 THERAPY NT Normal [facility] THERAPY NT Normal [facility] CBC panel Auto (Bld)on 05-08 Erythrocyte distribution width (RBC) [Ratio] 14.3 % Normal 11.5-15.0 [facility] Comment on above: Order Comment: Speci men Type: BLOOD SPECIMENOrdering Facility: [facility] Address: [address] [place] [address] Performed By: #### 5 8410-2 ####[facility] LABIA [id number] [address] [place] Hematocrit (Bld) [Volume fraction] 32.7 % Low 39.0-51.0 [facility] Comment on above: Order Comment: Speci men Type: BLOOD SPECIMENOrdering Facility: [facility] Address: [address] [place] [address] Performed By: #### 5 8410-2 ####[facility] LABIA [id number] [address] [place] Hemoglobin (Bld) [Mass/Vol] 10.5 g/dL Low 13.0-17.0 [facility] Comment on above: Order Comment: Speci men Type: BLOOD SPECIMENOrdering Facility: [facility] Address: [address] [place] [address] Performed By: #### 5 8410-2 ####[facility] LABIA [id number] [place] [address] [place] MCH (RBC) [Entitic mass] 32.6 pg Normal 26.0-34.0 [facility] Comment on above: Order Comment: Speci men Type: BLOOD SPECIMENOrdering Facility: [facility] Address: [address] [place] [address] Performed By: #### 5 8410-2 ####[facility] LABCLIA [id number] [place] [address] [place] MCHC (RBC) [Mass/Vol] 32.1 g/dL Normal 30.5-36.[address] [facility] Comment on above: Order Comment: Speci men Type: BLOOD SPECIMENOrdering Facility: [facility] Address: [address] [place] [address] Performed By: #### 5 8410-2 ####[facility] LABCLIA [id number] [place] [address] [place] MCV (RBC) [Entitic vol] 101.6 fL High 80.0-100.0 [facility] Comment on above: Order Comment: Speci men Type: BLOOD SPECIMENOrdering Facility: [facility] Address: [address] [place] [address] Performed By: #### 5 8410-2 ####[facility] LABIA [id number] [place] [address] [place] Nucleated RBC (Bld) [#/Vol] 10*3/uL Normal <0.01 [facility] Comment on above: Order Comment: Speci men Type: BLOOD SPECIMENOrdering Facility: [facility] Address: [address] [place] [address] Performed By: #### 5 8410-2 ####[facility] LABIA [id number] [place] [address] [place] Platelet mean volume (Bld) [Entitic vol] 11.0 fL Normal 9.0-12.7 [facility] Comment on above: Order Comment: Speci men Type: BLOOD SPECIMENOrdering Facility: [facility] Address: [address] [place] [address] Performed By: #### 5 8410-2 ####[facility] LABIA [id number] [place] [address] [place] Platelets (Bld) [#/Vol] 213 10*3/uL Normal 150-400 [facility] Comment on above: Order Comment: Speci men Type: BLOOD SPECIMENOrdering Facility: [facility] Address: [address] [place] [address] Performed By: #### 5 8410-2 ####[facility] LABCLIA [id number] [place] [address] [place] RBC (Bld) [#/Vol] 3.22 10*6/uL Low 4.20-6.00 [facility] Comment on above: Order Comment: Speci men Type: BLOOD SPECIMENOrdering Facility: [facility] Address: [address] [place] [address] Performed By: #### 5 8410-2 ####[facility] LABCLIA [id number] [place] [address] [place] WBC (Bld) [#/Vol] 6.24 10*3/uL Normal 3.70-11.00 [facility] Comment on above: Order Comment: Speci men Type: BLOOD SPECIMENOrdering Facility: [facility] Address: [address] [place] [address] Performed By: #### 5 8410-2 ####[facility] LABCLIA [id number] [place] [address] [place] Comprehensive metabolic 2000 panelon 05-08-2024 Albumin [Mass/Vol] 3.2 g/dL Low 3.9-4.9 [facility] Comment on above: Order Comment: Speci men Type: BLOOD SPECIMENOrdering Facility: [facility] Address: [address] [place] [address] Performed By: #### 2 4323-8, 2777-1, 11114-0 ####[facility] LABCLIA [id number] [place] [address] [place] ALP [Catalytic activity/Vol] 190 U/L High 38-113 [facility] Comment on above: Order Comment: Speci men Type: BLOOD SPECIMENOrdering Facility: [facility] Address: [address] [place] [address] Performed By: #### 2 4323-8, 2776-08, ####[facility] LABCLIA [id number] [place] [address] [place] ALT [Catalytic activity/Vol] 75 U/L High 10-54 [facility] Comment on above: Order Comment: Speci men Type: BLOOD SPECIMENOrdering Facility: [facility] Address: [address] [place] [address] Performed By: #### 2 4323-8, 2776-08, ####[facility] LABCLIA [id number] [place] [address] [place] Anion gap [Moles/Vol] 10 mmol/L Normal 8-[address] [facility] Comment on above: Order Comment: Speci men Type: BLOOD SPECIMENOrdering Facility: [facility] Address: [address] [place] [address] Performed By: #### 2 4323-8, 2776-08, ####[facility] LABCLIA [id number] [place] [address] [place] AST [Catalytic activity/Vol] 52 U/L High 14-40 [facility] Comment on above: Order Comment: Speci men Type: BLOOD SPECIMENOrdering Facility: [facility] Address: [address] [place] [address] Performed By: #### 2 4323-8, 2776-08, ####[facility] LABCLIA [id number] [place] [id number] [place] Bilirubin [Mass/Vol] 0.6 mg/dL Normal 0.2-1.3 [facility] Comment on above: Order Comment: Speci men Type: BLOOD SPECIMENOrdering Facility: [facility] Address: [address] [place] [address] Performed By: #### 2 4323-8, 2776-08, ####[facility] LABCLIA [id number] [address] [address] [place] Calcium [Mass/Vol] 8.5 mg/dL Normal 8.5-10.2 [facility] Comment on above: Order Comment: Speci men Type: BLOOD SPECIMENOrdering Facility: [facility] Address: [address] [place] [address] Performed By: #### 2 4323-8, 2776-08, ####[facility] LABCLIA [id number] [address] [address] [place] Chloride [Moles/Vol] 103 mmol/L Normal 98-107 [facility] Comment on above: Order Comment: Speci men Type: BLOOD SPECIMENOrdering Facility: [facility] Address: [address] [place] [address] Performed By: #### 2 4323-8, 2776-08, ####[facility] LABCLIA [id number] [address] [address] [place] CO2 [Moles/Vol] 23 mmol/L Normal 22-30 [facility] Comment on above: Order Comment: Speci men Type: BLOOD SPECIMENOrdering Facility: [facility] Address: [address] [place] [address] Performed By: #### 2 4323-8, 2776-08, ####[facility] LABCLIA [id number] [address] [address] [place] Creatinine [Mass/Vol] 1.27 mg/dL High 0.73-1.[address] [facility] Comment on above: Order Comment: Speci men Type: BLOOD SPECIMENOrdering Facility: [facility] Address: [address] [place], [place] [address] Performed By: #### 2 4323-8, 2777-1, ####[facility] LABIA [id number] [place] [id number] [place] Creatinine and Glomerular filtration rate.predicted panel (S/P/Bld) 58 mL/min/1.73m??? Low >=60 [facility] Comment on above: Order Comment: Elmo patterson Type: BLOOD SPECIMENOrdering Facility: [facility] Address: [address] [place] [address] Result Comment: Ruby mated Glomerular Filtration Rate (eGFR) is calculated using the 2020 CKD-EPI creatinine equation. This equation utilizes serum creatinine, sex, and age as parameters. The creatinine assay has traceable calibration to isotope dilution-mass spectrometry. Refer to KDIGO guidelines for clinical interpretation. In patients with unstable renal function, e.g. those with acute kidney injury, the eGFR may not accurately reflect actual GFR. Performed By: #### 2 4323-8, 2777-, ####[facility] LABIA [id number] [place] [id number] [place] Glucose [Mass/Vol] 103 mg/dL High 74-99 [facility] Comment on above: Order Comment: Elmo patterson Type: BLOOD SPECIMENOrdering Facility: [facility] Address: [address] [place] [address] Result Comment: The [place] [employer] (ADA) provides guidance for cutoff values for fasting glucose and random glucose. The ADA defines fasting as no caloric intake for at least 8 hours. Fasting plasma glucose results between 100 to 125 mg/dL indicate increased risk for diabetes (prediabetes).Fasting plasma glucose results greater than or equal to 126 mg/dL meet the criteria for diagnosis of diabetes. In the absence of unequivocal hyperglycemia, results should be confirmed by repeat testing. In a patient with classic symptoms of hyperglycemia or hyperglycemic crisis, random plasma glucose results greater than or equal to 200 mg/dL meet the criteria for diagnosis of diabetes.Reference: Standards of Medical Care in Diabetes 2016, [place] [employer]. Diabetes Care. 2016.39(Suppl 1). Performed By: #### 2 4323-8, 2776-08, ####[facility] LABCLIA [id number] [address] [address] [place] Potassium [Moles/Vol] 4.0 mmol/L Normal 3.7-5.[address] [facility] Comment on above: Order Comment: Speci men Type: BLOOD SPECIMENOrdering Facility: [facility] Address: [address] [place] [address] Performed By: #### 2 4323-8, 2776-08, ####[facility] LABCLIA [id number] [place] [address] [place] Protein [Mass/Vol] 5.7 g/dL Low 6.3-8.0 [facility] Comment on above: Order Comment: Speci men Type: BLOOD SPECIMENOrdering Facility: [facility] Address: [address] [place] [address] Performed By: #### 2 4323-8, 2776-08, ####[facility] LABIA [id number] [place] [id number] [place] Sodium [Moles/Vol] 136 mmol/L Normal 136-144 [facility] Comment on above: Order Comment: Speci men Type: BLOOD SPECIMENOrdering Facility: [facility] Address: [address] [place] [address] Performed By: #### 2 4323-8, 2776-08, ####[facility] LABIA [id number] [address] [address] [place] Urea nitrogen [Mass/Vol] 16 mg/dL Normal 9-24 [facility] Comment on above: Order Comment: Speci men Type: BLOOD SPECIMENOrdering Facility: [facility] Address: [address] [place], [place] [address] Performed By: #### 2 4323-8, 2776-08, ####[facility] LABCLIA [id number] [place] [address] [place] Magnesium SerPl-ncon 05-08 Magnesium [Mass/Vol] 2.4 mg/dL High 1.7-2.3 [facility] Comment on above: Order Comment: Speci men Type: BLOOD SPECIMENOrdering Facility: [facility] Address: [address] [place] [address] Performed By: #### 2 4323-8, 2777-1, ####[facility] LABCLIA [id number] [place] [address] [place] Phosphate SerPl-ncon 05-08 Phosphate [Mass/Vol] 3.1 mg/dL Normal 2.7-4.8 [facility] Comment on above: Order Comment: Speci men Type: BLOOD SPECIMENOrdering Facility: [facility] Address: [address] [place] [address] Performed By: #### 2 4323-8, 2777-1, ####[facility] LABIA [id number] [place] [address] [place] Bacteria Ur Culton Bacteria identified Cx Nom (U) ORGANISM ID: 1 >=100,000 CFU/ml Celine albicans No susceptibility testing done. Normal [facility] Comment on above: Performed By: #### 6 30-4 ####[facility] LABCLIA [id number] [place] [address] [place] CBC panel Auto (Bld)on 05-07 Erythrocyte distribution width (RBC) [Ratio] 14.2 % Normal 11.5-15.0 [facility] Comment on above: Order Comment: Speci men Type: BLOOD SPECIMENOrdering Facility: [facility] Address: [address] [place] [address] Performed By: #### 5 8410-2 ####[facility] LABIA [id number] [place] [address] [place] Hematocrit (Bld) [Volume fraction] 30.7 % Low 39.0-51.0 [facility] Comment on above: Order Comment: Speci men Type: BLOOD SPECIMENOrdering Facility: [facility] Address: [address] [place] [address] Performed By: #### 5 8410-2 ####[facility] LABIA [id number] [place] [address] [place] Hemoglobin (Bld) [Mass/Vol] 10.0 g/dL Low 13.0-17.0 [facility] Comment on above: Order Comment: Speci men Type: BLOOD SPECIMENOrdering Facility: [facility] Address: [address] [place] [address] Performed By: #### 5 8410-2 ####[facility] [id number] [place] [address] [place] MCH (RBC) [Entitic mass] 32.6 pg Normal 26.0-34.0 [facility] Comment on above: Order Comment: Speci men Type: BLOOD SPECIMENOrdering Facility: [facility] Address: [address] [place] [address] Performed By: #### 5 8410-2 ####[facility] [id number] [place] [address] [place] MCHC (RBC) [Mass/Vol] 32.6 g/dL Normal 30.5-36.[address] [facility] Comment on above: Order Comment: Speci men Type: BLOOD SPECIMENOrdering Facility: [facility] Address: [address] [place] [address] Performed By: #### 5 8410-2 ####[facility] [id number] [place] [address] [place] MCV (RBC) [Entitic vol] 100.0 fL Normal 80.0-100.0 [facility] Comment on above: Order Comment: Speci men Type: BLOOD SPECIMENOrdering Facility: [facility] Address: [address] [place] [address] Performed By: #### 5 8410-2 ####[facility] LABIA [id number] [place] [address] [place] Nucleated RBC (Bld) [#/Vol] 10*3/uL Normal <0.01 [facility] Comment on above: Order Comment: Speci men Type: BLOOD SPECIMENOrdering Facility: [facility] Address: [address] [place] [address] Performed By: #### 5 8410-2 ####[facility] LABIA [id number] [place] [address] [place] Platelet mean volume (Bld) [Entitic vol] 10.9 fL Normal 9.0-12.7 [facility] Comment on above: Order Comment: Speci men Type: BLOOD SPECIMENOrdering Facility: [facility] Address: [address] [place] [address] Performed By: #### 5 8410-2 ####[facility] LABIA [id number] [place] [address] [place] Platelets (Bld) [#/Vol] 202 10*3/uL Normal 150-400 [facility] Comment on above: Order Comment: Speci men Type: BLOOD SPECIMENOrdering Facility: [facility] Address: [address] [place] [address] Performed By: #### 5 8410-2 ####[facility] LABIA [id number] [place] [address] [place] RBC (Bld) [#/Vol] 3.07 10*6/uL Low 4.20-6.00 [facility] Comment on above: Order Comment: Speci men Type: BLOOD SPECIMENOrdering Facility: [facility] Address: [address] [place] [address] Performed By: #### 5 8410-2 ####[facility] LABCLIA [id number] [place] [address] [place] WBC (Bld) [#/Vol] 6.55 10*3/uL Normal 3.70-11.00 [facility] Comment on above: Order Comment: Speci men Type: BLOOD SPECIMENOrdering Facility: [facility] Address: [address] [place] [address] Performed By: #### 5 8410-2 ####[facility] LABIA [id number] [place] [address] [place] Comprehensive metabolic 2000 panelon 05-07-2024 Albumin [Mass/Vol] 3.2 g/dL Low 3.9-4.9 [facility] Comment on above: Order Comment: Speci men Type: BLOOD SPECIMENOrdering Facility: [facility] Address: [address] [place] [address] Performed By: #### 2 4323-8, 13826-2, 2777-1 ####[facility] LABIA [id number] [place] [address] [place] ALP [Catalytic activity/Vol] 206 U/L High 38-113 [facility] System Comment on above: Order Comment: Speci men Type: BLOOD SPECIMENOrdering Facility: [facility] Address: [address] [place] [address] Performed By: #### 2 4323-8, 02472-5, 2776-1 ####[facility] LABIA [id number] [place] [address] [place] ALT [Catalytic activity/Vol] 88 U/L High 10-54 [facility] Comment on above: Order Comment: Speci men Type: BLOOD SPECIMENOrdering Facility: [facility] Address: [address] [place] [address] Performed By: #### 2 4323-8, 08549-5, 2776-08 ####[facility] LABCLIA [id number] [place] [address] [place] Anion gap [Moles/Vol] 13 mmol/L Normal 8-[address] [facility] Comment on above: Order Comment: Speci men Type: BLOOD SPECIMENOrdering Facility: [facility] Address: [address] [place] [address] Performed By: #### 2 4323-8, , 2776-08 ####[facility] LABIA [id number] [place] [address] [place] AST [Catalytic activity/Vol] 59 U/L High 14-40 [facility] Comment on above: Order Comment: Speci men Type: BLOOD SPECIMENOrdering Facility: [facility] Address: [address] [place] [address] Performed By: #### 2 4323-8, , 2776-08 ####[facility] LABIA [id number] [place] [address] [place] Bilirubin [Mass/Vol] 0.6 mg/dL Normal 0.2-1.3 [facility] Comment on above: Order Comment: Speci men Type: BLOOD SPECIMENOrdering Facility: [facility] Address: [address] [place] [address] Performed By: #### 2 4323-8, , 2776-08 ####[facility] LABIA [id number] [place] [id number] [place] Calcium [Mass/Vol] 8.3 mg/dL Low 8.5-10.2 [facility] Comment on above: Order Comment: Speci men Type: BLOOD SPECIMENOrdering Facility: [facility] Address: [address] [place] [address] Performed By: #### 2 4323-8, , 2777-1 ####[facility] LABIA [id number] [address] [address] [place] Chloride [Moles/Vol] 101 mmol/L Normal 98-107 [facility] Comment on above: Order Comment: Speci men Type: BLOOD SPECIMENOrdering Facility: [facility] Address: [address] [place] [address] Performed By: #### 2 4323-8, 09119-8, 2777-1 ####[facility] [id number] [place] [address] [place] CO2 [Moles/Vol] 23 mmol/L Normal 22-30 [facility] Comment on above: Order Comment: Speci men Type: BLOOD SPECIMENOrdering Facility: [facility] Address: [address] [place] [address] Performed By: #### 2 4323-8, , 2776-1 ####[facility] [id number] [place] [address] [place] Creatinine [Mass/Vol] 1.23 mg/dL High 0.73-1.[address] [facility] Comment on above: Order Comment: Speci men Type: BLOOD SPECIMENOrdering Facility: [facility] Address: [address] [place] [address] Performed By: #### 2 4323-8, , 2771 ####[facility] [id number] [place] [id number] [place] Creatinine and Glomerular filtration rate.predicted panel (S/P/Bld) 60 mL/min/1.73m??? Normal >=60 [facility] Comment on above: Order Comment: Speci men Type: BLOOD SPECIMENOrdering Facility: [facility] Address: [address] [place] [address] Result Comment: Ruby mated Glomerular Filtration Rate (eGFR) is calculated using the 2020 CKD-EPI creatinine equation. This equation utilizes serum creatinine, sex, and age as parameters. The creatinine assay has traceable calibration to isotope dilution-mass spectrometry. Refer to KDIGO guidelines for clinical interpretation. In patients with unstable renal function, e.g. those with acute kidney injury, the eGFR may not accurately reflect actual GFR. Performed By: #### 2 4323-8, , 2776-08 ####[facility] LABCLIA [id number] [place] [address] [place] Glucose [Mass/Vol] 99 mg/dL Normal 74-99 [facility] Comment on above: Order Comment: Elmo patterson Type: BLOOD SPECIMENOrdering Facility: [facility] Address: [address] [place] [address] Result Comment: The [place] Diabetes [employer] (ADA) provides guidance for cutoff values for fasting glucose and random glucose. The ADA defines fasting as no caloric intake for at least 8 hours. Fasting plasma glucose results between 100 to 125 mg/dL indicate increased risk for diabetes (prediabetes).Fasting plasma glucose results greater than or equal to 126 mg/dL meet the criteria for diagnosis of diabetes. In the absence of unequivocal hyperglycemia, results should be confirmed by repeat testing. In a patient with classic symptoms of hyperglycemia or hyperglycemic crisis, random plasma glucose results greater than or equal to 200 mg/dL meet the criteria for diagnosis of diabetes.Reference: Standards of Medical Care in Diabetes 2016, [place] [employer]. Diabetes Care. 2016.39(Suppl 1). Performed By: #### 2 4323-8, , 2776-08 ####[facility] LABCLIA [id number] [place] [id number] [place] Potassium [Moles/Vol] 3.5 mmol/L Low 3.7-5.[address] [facility] Comment on above: Order Comment: Elmo patterson Type: BLOOD SPECIMENOrdering Facility: [facility] Address: [address] [place] [id number] Performed By: #### 2 4323-8, , 2776-08 ####[facility] LABCLIA [id number] [address] [id number] [address] [place] Protein [Mass/Vol] 5.5 g/dL Low 6.3-8.0 [facility] Comment on above: Order Comment: Speci men Type: BLOOD SPECIMENOrdering Facility: [facility] Address: [address] [place] [address] Performed By: #### 2 4323-8, 01154-7, 2776- ####[facility] LABCLIA [id number] [place] [address] [place] Sodium [Moles/Vol] 137 mmol/L Normal 136-144 [facility] Comment on above: Order Comment: Speci men Type: BLOOD SPECIMENOrdering Facility: [facility] Address: [address] [place] [address] Performed By: #### 2 4323-8, , 2776-08 ####[facility] LABCLIA [id number] [place] [address] [place] Urea nitrogen [Mass/Vol] 17 mg/dL Normal 9-24 [facility] Comment on above: Order Comment: Speci men Type: BLOOD SPECIMENOrdering Facility: [facility] Address: [address] [place] [address] Performed By: #### 2 4323-8, , 2776-08 ####[facility] LABCLIA [id number] [place] [address] [place] HISTORY PHYSICALon HISTORY PHYSICAL Normal [facility] Magnesium SerPl-mCncon 05-07 Magnesium [Mass/Vol] 2.3 mg/dL Normal 1.7-2.3 [facility] Comment on above: Order Comment: Speci men Type: BLOOD SPECIMENOrdering Facility: [facility] Address: [address] [place] [address] Performed By: #### 2 4323-8, 65542-3, 2776- ####[facility] LABCLIA [id number] [place] [address] [place] Phosphate SerPl-mCncon 05-07 Phosphate [Mass/Vol] 3.5 mg/dL Normal 2.7-4.8 [facility] Comment on above: Order Comment: Speci men Type: BLOOD SPECIMENOrdering Facility: [facility] Address: [address] [place] [address] Performed By: #### 2 4323-8, 54812-4, 2777-1 ####[facility] LABCLIA [id number] [place] [address] [place] THERAPY NTon 05-07-2024 THERAPY NT Normal [facility] CASE MANAGEMon 05-06-2024 CASE MANAGEM Normal [facility] CONSULT PROGon 05-06-2024 CONSULT PROG Normal [facility] NM PET/CT CARD PERF REST/STR ESSon 05-06-2024 NM PET/CT CARD PERF REST/STRESS Normal [facility] NM PET/CT CARDIAC VIABILITYo n 05-06-2024 NM PET/CT CARDIAC VIABILITY Normal [facility] NURSING PROGon 05-06-2024 NURSING PROG Normal [facility] THERAPY NTon 05-06-2024 THERAPY NT Normal [facility] US ABD RIGHT UPPER QUADRANTo n 05-06-2024 US ABD RIGHT UPPER QUADRANT Normal [facility] BRIEF OP NOTon 05-05-2024 BRIEF OP NOT Normal [facility] CASE MANAGEMon 05-05-2024 CASE MANAGEM Normal [facility] CBC panel Auto (Bld)on 05-05 Erythrocyte distribution width (RBC) [Ratio] 14.1 % Normal 11.5-15.0 [facility] Comment on above: Order Comment: Speci men Type: BLOOD SPECIMENOrdering Facility: [facility] Address: [address] [place] [address] Performed By: #### 5 8410-2 ####[facility] LABIA [id number] [address] [place] Hematocrit (Bld) [Volume fraction] 31.0 % Low 39.0-51.0 [facility] Comment on above: Order Comment: Speci men Type: BLOOD SPECIMENOrdering Facility: [facility] Address: [address] [place] [address] Performed By: #### 5 8410-2 ####[facility] LABIA [id number] [place] [address] [place] Hemoglobin (Bld) [Mass/Vol] 10.0 g/dL Low 13.0-17.0 [facility] Comment on above: Order Comment: Speci men Type: BLOOD SPECIMENOrdering Facility: [facility] Address: [address] [place] [address] Performed By: #### 5 8410-2 ####[facility] LABIA [id number] [place] [address] [place] MCH (RBC) [Entitic mass] 32.3 pg Normal 26.0-34.0 [facility] Comment on above: Order Comment: Speci men Type: BLOOD SPECIMENOrdering Facility: [facility] Address: [address] [place] [address] Performed By: #### 5 8410-2 ####[facility] LABIA [id number] [place] [address] [place] MCHC (RBC) [Mass/Vol] 32.3 g/dL Normal 30.5-36.[address] [facility] Comment on above: Order Comment: Speci men Type: BLOOD SPECIMENOrdering Facility: [facility] Address: [address] [place] [address] Performed By: #### 5 8410-2 ####[facility] LABIA [id number] [place] [address] [place] MCV (RBC) [Entitic vol] 100.0 fL Normal 80.0-100.0 [facility] Comment on above: Order Comment: Speci men Type: BLOOD SPECIMENOrdering Facility: [facility] Address: [address] [place] [address] Performed By: #### 5 8410-2 ####[facility] LABCLIA [id number] [place] [address] [place] Nucleated RBC (Bld) [#/Vol] 10*3/uL Normal <0.01 [facility] Comment on above: Order Comment: Speci men Type: BLOOD SPECIMENOrdering Facility: [facility] Address: [address] [place] [address] Performed By: #### 5 8410-2 ####[facility] LABCLIA [id number] [place] [address] [place] Platelet mean volume (Bld) [Entitic vol] 11.3 fL Normal 9.0-12.7 [facility] Comment on above: Order Comment: Speci men Type: BLOOD SPECIMENOrdering Facility: [facility] Address: [address] [place] [address] Performed By: #### 5 8410-2 ####[facility] LABCLIA [id number] [place] [address] [place] Platelets (Bld) [#/Vol] 208 10*3/uL Normal 150-400 [facility] Comment on above: Order Comment: Speci men Type: BLOOD SPECIMENOrdering Facility: [facility] Address: [address] [place] [address] Performed By: #### 5 8410-2 ####[facility] LABCLIA [id number] [place] [address] [place] RBC (Bld) [#/Vol] 3.10 10*6/uL Low 4.20-6.00 [facility] Comment on above: Order Comment: Speci men Type: BLOOD SPECIMENOrdering Facility: [facility] Address: [address] [place] [address] Performed By: #### 5 8410-2 ####[facility] LABCLIA [id number] [place] [address] [place] WBC (Bld) [#/Vol] 7.71 10*3/uL Normal 3.70-11.00 [facility] Comment on above: Order Comment: Speci men Type: BLOOD SPECIMENOrdering Facility: [facility] Address: [address] [place] [address] Performed By: #### 5 8410-2 ####[facility] LABIA [id number] [place] [address] [place] Erythrocyte distribution width (RBC) [Ratio] 14.2 % Normal 11.5-15.0 [facility] Comment on above: Order Comment: Speci men Type: BLOOD SPECIMENOrdering Facility: [facility] Address: [address] [place] [address] Performed By: #### 5 8410-2 ####[facility] [id number] [place] [address] [place] Hematocrit (Bld) [Volume fraction] 31.4 % Low 39.0-51.0 [facility] Comment on above: Order Comment: Speci men Type: BLOOD SPECIMENOrdering Facility: [facility] Address: [address] [place] [address] Performed By: #### 5 8410-2 ####[facility] LABIA [id number] [place] [address] [place] Hemoglobin (Bld) [Mass/Vol] 10.2 g/dL Low 13.0-17.0 [facility] Comment on above: Order Comment: Speci men Type: BLOOD SPECIMENOrdering Facility: [facility] Address: [address] [place] [address] Performed By: #### 5 8410-2 ####[facility] LABIA [id number] [place] [address] [place] MCH (RBC) [Entitic mass] 32.8 pg Normal 26.0-34.0 [facility] Comment on above: Order Comment: Speci men Type: BLOOD SPECIMENOrdering Facility: [facility] Address: [address] [place] [address] Performed By: #### 5 8410-2 ####[facility] LABCLIA [id number] [place] [address] [place] MCHC (RBC) [Mass/Vol] 32.5 g/dL Normal 30.5-36.[address] [facility] Comment on above: Order Comment: Speci men Type: BLOOD SPECIMENOrdering Facility: [facility] Address: [address] [place] [address] Performed By: #### 5 8410-2 ####[facility] LABIA [id number] [place] [address] [place] MCV (RBC) [Entitic vol] 101.0 fL High 80.0-100.0 [facility] Comment on above: Order Comment: Speci men Type: BLOOD SPECIMENOrdering Facility: [facility] Address: [address] [place] [address] Performed By: #### 5 8410-2 ####[facility] LABIA [id number] [place] [address] [place] Nucleated RBC (Bld) [#/Vol] 10*3/uL Normal <0.01 [facility] Comment on above: Order Comment: Speci men Type: BLOOD SPECIMENOrdering Facility: [facility] Address: [address] [place] [address] Performed By: #### 5 8410-2 ####[facility] LABIA [id number] [place] [address] [place] Platelet mean volume (Bld) [Entitic vol] 11.4 fL Normal 9.0-12.7 [facility] Comment on above: Order Comment: Speci men Type: BLOOD SPECIMENOrdering Facility: [facility] Address: [address] [place] [address] Performed By: #### 5 8410-2 ####[facility] LABCLIA [id number] [place] [address] [place] Platelets (Bld) [#/Vol] 208 10*3/uL Normal 150-400 [facility] Comment on above: Order Comment: Speci men Type: BLOOD SPECIMENOrdering Facility: [facility] Address: [address] [place] [address] Performed By: #### 5 8410-2 ####[facility] LABIA [id number] [place] [address] [place] RBC (Bld) [#/Vol] 3.11 10*6/uL Low 4.20-6.00 [facility] Comment on above: Order Comment: Speci men Type: BLOOD SPECIMENOrdering Facility: [facility] Address: [address] [place] [address] Performed By: #### 5 8410-2 ####[facility] LABIA [id number] [place] [address] [place] WBC (Bld) [#/Vol] 6.74 10*3/uL Normal 3.70-11.00 [facility] Comment on above: Order Comment: Speci men Type: BLOOD SPECIMENOrdering Facility: [facility] Address: [address] [place] [address] Performed By: #### 5 8410-2 ####[facility] LABIA [id number] [place] [id number] [place] CNPNon 05-05-2024 CNPN Normal [facility] CONSULT PROGon 05-05-2024 CONSULT PROG Normal [facility] CONSULT PROG Normal [facility] Comprehensive metabolic 2000 panelon 05-05-2024 Albumin [Mass/Vol] 3.0 g/dL Low 3.9-4.9 [facility] Comment on above: Order Comment: Speci men Type: BLOOD SPECIMENOrdering Facility: [facility] Address: [address] [place] [address] Performed By: #### 1 9123-9, 2777-1, 47191-4, 60582-7, 6-4 ####[facility] LABCLIA [id number] [place] [address] [place] ALP [Catalytic activity/Vol] 244 U/L High 38-113 [facility] Comment on above: Order Comment: Speci men Type: BLOOD SPECIMENOrdering Facility: [facility] Address: [address] [place] [address] Performed By: #### 1 9123-9, 2777-1, 50410-1, 08436-3, 6-4 ####[facility] LABIA [id number] [place] [address] [place] ALT [Catalytic activity/Vol] 124 U/L High 10-54 [facility] Comment on above: Order Comment: Speci men Type: BLOOD SPECIMENOrdering Facility: [facility] Address: [address] [place] [address] Performed By: #### 1 9123-9, 2777-1, 53474-8, 36091-2, 6-4 ####[facility] LABIA [id number] [place] [address] [place] Anion gap [Moles/Vol] 11 mmol/L Normal 8-[address] [facility] Comment on above: Order Comment: Speci men Type: BLOOD SPECIMENOrdering Facility: [facility] Address: [address] [place] [address] Performed By: #### 1 9123-9, 2777-1, 14100-4, 65461-0, 6-4 ####[facility] LABCLIA [id number] [place] [id number] [place] AST [Catalytic activity/Vol] 106 U/L High 14-40 [facility] Comment on above: Order Comment: Speci men Type: BLOOD SPECIMENOrdering Facility: [facility] Address: [address] [place] [address] Performed By: #### 1 9123-9, 2777-1, 57743-3, 97599-0, 2276-4 ####[facility] LABCLIA [id number] [place] [address] [place] Bilirubin [Mass/Vol] 0.6 mg/dL Normal 0.2-1.3 [facility] Comment on above: Order Comment: Speci men Type: BLOOD SPECIMENOrdering Facility: [facility] Address: [address] [place] [address] Performed By: #### 1 9123-9, 2777-1, 30621-1, 17234-2, 2276-4 ####[facility] LABCLIA [id number] [place] [address] [place] Calcium [Mass/Vol] 8.5 mg/dL Normal 8.5-10.2 [facility] Comment on above: Order Comment: Speci men Type: BLOOD SPECIMENOrdering Facility: [facility] Address: [address] [place] [address] Performed By: #### 1 9123-9, 2777-1, 39012-4, 83156-4, 2276-4 ####[facility] LABCLIA [id number] [place] [address] [place] Chloride [Moles/Vol] 103 mmol/L Normal 98-107 [facility] Comment on above: Order Comment: Speci men Type: BLOOD SPECIMENOrdering Facility: [facility] Address: [address] [place] [address] Performed By: #### 1 9123-9, 2777-1, 16106-5, 22414-5, 2276-4 ####[facility] LABCLIA [id number] [place] [address] [place] CO2 [Moles/Vol] 23 mmol/L Normal 22-30 [facility] Comment on above: Order Comment: Specjames patterson Type: BLOOD SPECIMENOrdering Facility: [facility] Address: [address] [place] [address] Performed By: #### 1 9123-9, 2777-1, 29431-8, 90555-4, 2276-4 ####[facility] LABCLIA [id number] [place] [address] [place] Creatinine [Mass/Vol] 1.42 mg/dL High 0.73-1.[address] [facility] Comment on above: Order Comment: Elmo patterson Type: BLOOD SPECIMENOrdering Facility: [facility] Address: [address] [place] [address] Performed By: #### 1 9123-9, 2777-1, 43473-1, 40412-1, 6-4 ####[facility] LABIA [id number] [place] [address] [place] Creatinine and Glomerular filtration rate.predicted panel (S/P/Bld) 51 mL/min/1.73m??? Low >=60 [facility] Comment on above: Order Comment: Elmo patterson Type: BLOOD SPECIMENOrdering Facility: [facility] Address: [address] [place] [address] Result Comment: Ruby mated Glomerular Filtration Rate (eGFR) is calculated using the 2020 CKD-EPI creatinine equation. This equation utilizes serum creatinine, sex, and age as parameters. The creatinine assay has traceable calibration to isotope dilution-mass spectrometry. Refer to KDIGO guidelines for clinical interpretation. In patients with unstable renal function, e.g. those with acute kidney injury, the eGFR may not accurately reflect actual GFR. Performed By: #### 1 9123-9, 2777-1, 17203-8, 48826-3, 2276-4 ####[facility] LABCLIA [id number] [place] [address] [place] Glucose [Mass/Vol] 119 mg/dL High 74-99 [facility] Comment on above: Order Comment: Speci men Type: BLOOD SPECIMENOrdering Facility: [facility] Address: [address] [place], [place] [address] Result Comment: The [place] [employer] (ADA) provides guidance for cutoff values for fasting glucose and random glucose. The ADA defines fasting as no caloric intake for at least 8 hours. Fasting plasma glucose results between 100 to 125 mg/dL indicate increased risk for diabetes (prediabetes).Fasting plasma glucose results greater than or equal to 126 mg/dL meet the criteria for diagnosis of diabetes. In the absence of unequivocal hyperglycemia, results should be confirmed by repeat testing. In a patient with classic symptoms of hyperglycemia or hyperglycemic crisis, random plasma glucose results greater than or equal to 200 mg/dL meet the criteria for diagnosis of diabetes.Reference: Standards of Medical Care in Diabetes 2016, [place] [employer]. Diabetes Care. 2016.39(Suppl 1). Performed By: #### 1 9123-9, 2777-1, 92500-6, 84841-0, 6-4 ####[facility] LABIA [id number] [place] [id number] [place] Potassium [Moles/Vol] 3.9 mmol/L Normal 3.7-5.[address] [facility] Comment on above: Order Comment: Speci men Type: BLOOD SPECIMENOrdering Facility: [facility] Address: [address] [place] [address] Performed By: #### 1 9123-9, 2777-1, 11200-9, 19599-6, 6-4 ####[facility] LABIA [id number] [address] [address] [place] Protein [Mass/Vol] 5.7 g/dL Low 6.3-8.0 [facility] Comment on above: Order Comment: Speci men Type: BLOOD SPECIMENOrdering Facility: [facility] Address: [address] [place], [place] [address] Performed By: #### 1 9123-9, 2777-1, 05276-7, 16775-4, 2276-4 ####[facility] LABCLIA [id number] [address] [address] [place] Sodium [Moles/Vol] 137 mmol/L Normal 136-144 [facility] Comment on above: Order Comment: Speci men Type: BLOOD SPECIMENOrdering Facility: [facility] Address: [address] [place] [address] Performed By: #### 1 9123-9, 2777-1, 55902-6, 89383-5, 2275-11 ####[facility] LABCLIA [id number] [address] [address] [place] Urea nitrogen [Mass/Vol] 22 mg/dL Normal 9-24 [facility] Comment on above: Order Comment: Speci men Type: BLOOD SPECIMENOrdering Facility: [facility] Address: [address] [place] [address] Performed By: #### 1 9123-9, 2777-1, 38564-6, 98059-2, 2275-11 ####[facility] LABIA [id number] [address] [address] [place] Albumin [Mass/Vol] 3.0 g/dL Low 3.9-4.9 [facility] Comment on above: Order Comment: Speci men Type: BLOOD SPECIMENOrdering Facility: [facility] Address: [address] [place] [address] Performed By: #### 2 777-1, 40624-1, ####[facility] LABIA [id number] [address] [address] [place] ALP [Catalytic activity/Vol] 243 U/L High 38-113 [facility] Comment on above: Order Comment: Speci men Type: BLOOD SPECIMENOrdering Facility: [facility] Address: [address] [place] [address] Performed By: #### 2 777-1, 07525-2, 73528-1 ####[facility] LABCLIA [id number] [address] [address] [place] ALT [Catalytic activity/Vol] 108 U/L High 10-54 [facility] Comment on above: Order Comment: Speci men Type: BLOOD SPECIMENOrdering Facility: [facility] Address: [address] [place] [address] Performed By: #### 2 777-1, 41030-7, ####[facility] LABCLIA [id number] [place] [address] [place] Anion gap [Moles/Vol] 10 mmol/L Normal 8-[address] [facility] Comment on above: Order Comment: Speci men Type: BLOOD SPECIMENOrdering Facility: [facility] Address: [address] [place] [address] Performed By: #### 2 777-1, , ####[facility] LABIA [id number] [place] [address] [place] AST [Catalytic activity/Vol] 71 U/L High 14-40 [facility] Comment on above: Order Comment: Speci men Type: BLOOD SPECIMENOrdering Facility: [facility] Address: [address] [place] [address] Performed By: #### 2 777-1, 53513-1, ####[facility] LABCLIA [id number] [place] [address] [place] Bilirubin [Mass/Vol] 0.6 mg/dL Normal 0.2-1.3 [facility] Comment on above: Order Comment: Speci men Type: BLOOD SPECIMENOrdering Facility: [facility] Address: [address] [place] [address] Performed By: #### 2 777-1, 84898-5, ####[facility] LABCLIA [id number] [place] [address] [place] Calcium [Mass/Vol] 8.1 mg/dL Low 8.5-10.2 [facility] Comment on above: Order Comment: Speci men Type: BLOOD SPECIMENOrdering Facility: [facility] Address: [address] [place] [address] Performed By: #### 2 777-1, 30520-4, ####[facility] LABCLIA [id number] [place] [address] [place] Chloride [Moles/Vol] 105 mmol/L Normal 98-107 [facility] Comment on above: Order Comment: Speci men Type: BLOOD SPECIMENOrdering Facility: [facility] Address: [address] [place] [address] Performed By: #### 2 777-1, , ####[facility] LABCLIA [id number] [place] [address] [place] CO2 [Moles/Vol] 23 mmol/L Normal 22-30 [facility] Comment on above: Order Comment: Speci men Type: BLOOD SPECIMENOrdering Facility: [facility] Address: [address] [place] [address] Performed By: #### 2 777-1, 61395-2, ####[facility] LABCLIA [id number] [place] [address] [place] Creatinine [Mass/Vol] 1.26 mg/dL High 0.73-1.[address] [facility] Comment on above: Order Comment: Speci men Type: BLOOD SPECIMENOrdering Facility: [facility] Address: [address] [place] [address] Performed By: #### 2 777-1, 31581-7, ####[facility] LABCLIA [id number] [place] [address] [place] Creatinine and Glomerular filtration rate.predicted panel (S/P/Bld) 58 mL/min/1.73m??? Low >=60 [facility] Comment on above: Order Comment: Elmo patterson Type: BLOOD SPECIMENOrdering Facility: [facility] Address: [address] [place] [address] Result Comment: Ruby mated Glomerular Filtration Rate (eGFR) is calculated using the 2020 CKD-EPI creatinine equation. This equation utilizes serum creatinine, sex, and age as parameters. The creatinine assay has traceable calibration to isotope dilution-mass spectrometry. Refer to KDIGO guidelines for clinical interpretation. In patients with unstable renal function, e.g. those with acute kidney injury, the eGFR may not accurately reflect actual GFR. Performed By: #### 2 777-1, , ####[facility] LABIA [id number] [place] [address] [place] Glucose [Mass/Vol] 92 mg/dL Normal 74-99 [facility] Comment on above: Order Comment: Elmo pattersno Type: BLOOD SPECIMENOrdering Facility: [facility] Address: [address] [place] [address] Result Comment: The [place] Diabetes [employer] (ADA) provides guidance for cutoff values for fasting glucose and random glucose. The ADA defines fasting as no caloric intake for at least 8 hours. Fasting plasma glucose results between 100 to 125 mg/dL indicate increased risk for diabetes (prediabetes).Fasting plasma glucose results greater than or equal to 126 mg/dL meet the criteria for diagnosis of diabetes. In the absence of unequivocal hyperglycemia, results should be confirmed by repeat testing. In a patient with classic symptoms of hyperglycemia or hyperglycemic crisis, random plasma glucose results greater than or equal to 200 mg/dL meet the criteria for diagnosis of diabetes.Reference: Standards of Medical Care in Diabetes 2016, [place] [employer]. Diabetes Care. 2016.39(Suppl 1). Performed By: #### 2 777-1, 62086-3, ####[facility] LABIA [id number] [place] [id number] [place] Potassium [Moles/Vol] 4.1 mmol/L Normal 3.7-5.[address] [facility] Comment on above: Order Comment: Speci men Type: BLOOD SPECIMENOrdering Facility: [facility] Address: [address] [place] [address] Performed By: #### 2 777-1, , ####[facility] LABCLIA [id number] [facility] [address] [address] [place] Protein [Mass/Vol] 5.5 g/dL Low 6.3-8.0 [facility] Comment on above: Order Comment: Speci men Type: BLOOD SPECIMENOrdering Facility: [facility] Address: [address] [place] [address] Performed By: #### 2 777-1, , ####[facility] LABCLIA [id number] [place] [address] [place] Sodium [Moles/Vol] 138 mmol/L Normal 136-144 [facility] Comment on above: Order Comment: Speci men Type: BLOOD SPECIMENOrdering Facility: [facility] Address: [address] [place] [address] Performed By: #### 2 777-1, , ####[facility] LABCLIA [id number] [place] [address] [place] Urea nitrogen [Mass/Vol] 21 mg/dL Normal 9-24 [facility] Comment on above: Order Comment: Speci men Type: BLOOD SPECIMENOrdering Facility: [facility] Address: [address] [place] [address] Performed By: #### 2 777-1, , ####[facility] LABCLIA [id number] [facility] [address] [address] [place] Ferritin SerPl-mCncon 2023 Ferritin [Mass/Vol] 505.0 ng/mL Normal 30.3-565.7 [facility] Comment on above: Order Comment: Speci men Type: BLOOD SPECIMENOrdering Facility: [facility] Address: [address] [place] [address] Performed By: #### 1 9123-9, 2777-1, 62692-1, 93020-4, 6-4 ####[facility] LABCLIA [id number] [address] [address] [place] IR EXCHANGE CATH BILI DRAINo n 05-05-2024 IR EXCHANGE CATH BILI DRAIN Normal [facility] Iron and Iron binding capaci ty panelon 05-05-2024 Iron [Mass/Vol] 69 ug/dL Normal 41-186 [facility] Comment on above: Order Comment: Speci men Type: BLOOD SPECIMENOrdering Facility: [facility] Address: [address] [place] [address] Performed By: #### 1 9123-9, 2777-1, 94793-5, 12953-3, 2275-4 ####[facility] LABCLIA [id number] [address] [address] [place] Iron binding capacity [Mass/Vol] 268 ug/dL Normal 232-386 [facility] Comment on above: Order Comment: Speci men Type: BLOOD SPECIMENOrdering Facility: [facility] Address: [address] [place] [address] Performed By: #### 1 9123-9, 2777-1, 60416-7, 63159-7, 6-4 ####[facility] LABCLIA [id number] [address] [address] [place] Iron/TIBC [Molar ratio] 25.7 % Normal 15.0-57.0 [facility] Comment on above: Order Comment: Speci men Type: BLOOD SPECIMENOrdering Facility: [facility] Address: [address] [place] [address] Performed By: #### 1 9123-9, 2777-1, 20561-9, 51169-0, 2276-4 ####[facility] LABCLIA [id number] [address] [address] [place] Magnesium SerPl-mCncon 05-05 Magnesium [Mass/Vol] 2.2 mg/dL Normal 1.7-2.3 [facility] Comment on above: Order Comment: Speci men Type: BLOOD SPECIMENOrdering Facility: [facility] Address: [address] [place] [address] Performed By: #### 1 9123-9, 2777-1, 26200-0, 67990-2, 2275-4 ####[facility] LABCLIA [id number] [place] [address] [place] Magnesium [Mass/Vol] 2.3 mg/dL Normal 1.7-2.3 [facility] Comment on above: Order Comment: Speci men Type: BLOOD SPECIMENOrdering Facility: [facility] Address: [address] [place] [address] Performed By: #### 2 777-1, 91398-4, 59024-9 ####[facility] LABCLIA [id number] [place] [address] [place] PT EDon 05-05-2024 PT ED Normal [facility] Phosphate SerPl-mCncon 05-05 Phosphate [Mass/Vol] 2.3 mg/dL Low 2.7-4.8 [facility] Comment on above: Order Comment: Speci men Type: BLOOD SPECIMENOrdering Facility: [facility] Address: [address] [place], [place] [address] Performed By: #### 1 9123-9, 2777-1, 29037-6, 15699-8, 2275-4 ####[facility] LABCLIA [id number] [place] [address] [place] Phosphate [Mass/Vol] 2.9 mg/dL Normal 2.7-4.8 [facility] Comment on above: Order Comment: Speci men Type: BLOOD SPECIMENOrdering Facility: [facility] Address: [address] [place] [address] Performed By: #### 2 777-1, 59267-0, 51545-4 ####[facility] LABCLIA [id number] [facility] [address] [address] [place] [facility] THERAPY NTon 05-05-2024 THERAPY NT Normal [facility] THERAPY NT Normal [facility] CARDIAC IMPLANTABLE DEVICE C HECKOrdered By: Kisha Mahoney on 05-04-2024 Battery Status OK [facility] Work Phone: [phone] Antoine Setting AT Mode Switch Rate 170 [facility] Work Phone: [phone] Antoine Setting Lower Rate Limit 60 [facility] Work Phone: [phone] Antoine Setting Maximum Sensor Rate 100 [facility] Work Phone: [phone] Antoine Setting Maximum Tracking Rate 100 [facility] Work Phone: [phone] Antoine Setting Mode (NBG Code) DDDR [facility] Work Phone: [phone] Antoine Setting PAV Delay 210 [facility] Work Phone: [phone] Antoine Setting YAO Delay 110 [facility] Work Phone: [phone] Date Time Interrogation Session [facility] Work Phone: [phone] Implantable Lead Connection Status Abandoned [facility] Work Phone: [phone] Implantable Lead Implant Date 20000303 [facility] Work Phone: [phone] Implantable Lead Location Right Atrium [facility] Work Phone: [phone] Implantable Lead Location Unknown [facility] Work Phone: [phone] Implantable Lead Flower Arranger Other [facility] Work Phone: [phone] Implantable Lead Model 7841 [facility] Work Phone: [phone] Implantable Lead Model 672 [facility] Work Phone: [phone] Implantable Lead Model 155 [facility] Work Phone: [phone] Implantable Lead Model 4674 [facility] Work Phone: [phone] Implantable Lead Serial Number [id number] [facility] Work Phone: [phone] Implantable Lead Serial Number [id number] [facility] Work Phone: [phone] Implantable Lead Serial Number [id number] [facility] Work Phone: [phone] Implantable Lead Serial Number [id number] [facility] Work Phone: [phone] Implantable Pulse Generator Implant Date 20221217 [facility] Work Phone: [phone] Implantable Pulse Generator Flower Arranger Unbounce [facility] Work Phone: [phone] Implantable Pulse Generator Model G247 [facility] Work Phone: [phone] Implantable Pulse Generator Serial Number [id number] [facility] Work Phone: [phone] Implantable Pulse Generator Type Cardiac Resynchronization Therapy - Defibrillator [facility] Work Phone: [phone] Lead Channel Impedance Value 490 [facility] Work Phone: [phone] Lead Channel Impedance Value 860 [facility] Work Phone: [phone] Lead Channel Impedance Value 403 [facility] Work Phone: [phone] Lead Channel Measurements Date and Time 2024-03-16 [facility] Work Phone: [phone] Lead Channel Pacing Threshold Amplitude 0.500 [facility] Work Phone: [phone] Lead Channel Sensing Intrinsic Amplitude 4.500 [facility] Work Phone: [phone] Lead Channel Sensing Intrinsic Amplitude 5.600 [facility] Work Phone: [phone] Lead Channel Sensing Intrinsic Amplitude 19.300 [facility] Work Phone: [phone] Lead Channel Setting Pacing Amplitude 1.600 [facility] Work Phone: [phone] Lead Channel Setting Sensing Sensitivity 0.25 [facility] Work Phone: [phone] Lead Channel Setting Sensing Sensitivity 0.60 [facility] Work Phone: [phone] Lead Channel Setting Sensing Sensitivity 1.00 [facility] Work Phone: [phone] Rate 1 190 [facility] Work Phone: [phone] Rate 1 120 [facility] Work Phone: [phone] Shock Measured Impedance 68 [facility] Work Phone: [phone] Therapies 41J, 41J [facility] Work Phone: [phone] Therapies 31J, 41J [facility] Work Phone: [phone] Therapies 0J, 0J [facility] Work Phone: [phone] Therapy Statistic Recent ATP Delivered 12 [facility] Work Phone: [phone] Therapy Statistic Recent Shocks Aborted 1 [facility] Work Phone: [phone] Therapy Statistic Recent Shocks Delivered 6 [facility] Work Phone: [phone] Ventricular chambers paced during TUBE LASER OPERATOR pacing. LV Only [facility] Work Phone: [phone] Zone ID 1 [facility] Work Phone: [phone] Zone ID 2 [facility] Work Phone: [phone] Zone ID 3 [facility] Work [phone] Zone Setting Type Category VF [facility] Work Phone: [phone] Zone Setting Type Category VT [facility] Work Phone: [phone] Zone Setting Type Category VT1 [facility] Work Phone: [phone] [facility] Work Phone: [phone] CARDIAC IMPLANTABLE DEVICE Jeffery Nguyen 05-04-2024 Title: [facility] k * Patient was seen in hospital [facility] * Reason: Routine order. * Presenting rhythm: AP/LVP * Underlying: SB * Heart Rate Histograms reviewed * Device Function and programmed parameters reviewed * No events since last clinic check. * Remains LV only pacing as noted in prior check. NOTE TO PROVIDERS: Cardiac Implanted Devices Flowsheets contain detailed Programming and Evaluation data. Full Docket/PDF found below under Scanned Documents . MAINOR CARDIAC Kisha Mahoney MD - 05/04/2024 Title: Hospital Check * Patient was seen in hospital [facility] * Reason: Routine order. * Presenting rhythm: AP/LVP * Underlying: SB * Heart Rate Histograms reviewed * Device Function and programmed parameters reviewed * No events since last clinic check. * Remains LV only pacing as noted in prior check. NOTE TO PROVIDERS: Cardiac Implanted Devices Flowsheets contain detailed Programming and Evaluation data. Full Docket/PDF found below under Scanned Documents . [facility] CONSULTon 05-04-2024 CONSULT Normal [facility] CONSULT Normal [facility] No Panel InformationOrdered By: Kisha Mahoney on 05-04-2024 Implantable Lead Connection Status Connected [facility] Work Phone: Implantable Lead Implant Date 20221201 [facility] Work Phone: Implantable Lead Location Right Ventricle [facility] Work Phone: Implantable Lead Flower Arranger Unbounce [facility] Work Phone: Lead Channel Measurements Date and Time 2024-05-04 [facility] Work Phone: Lead Channel Pacing Threshold Amplitude 0.800 [facility] Work Phone: Lead Channel Pacing Threshold Pulse Width 0.4 [facility] Work Phone: Lead Channel Setting Pacing Amplitude 2.000 [facility] Work Phone: Lead Channel Setting Pacing Pulse Width 0.4 [facility] Work Phone: Zone Setting Status On [facility] Work Phone: CASE MANAGEMon 05-03-2024 CASE MANAGEM Normal [facility] CBC panel Auto (Bld)on 05-03 Erythrocyte distribution width (RBC) [Ratio] 14.2 % Normal 11.5-15.0 [facility] Comment on above: Order Comment: Speci men Type: BLOOD SPECIMENOrdering Facility: [facility] Address: [address] [place] [address] Performed By: #### 5 8410-2 ####[facility] LABCLIA [id number] [place] [address] [place] Hematocrit (Bld) [Volume fraction] 29.4 % Low 39.0-51.0 [facility] Comment on above: Order Comment: Speci men Type: BLOOD SPECIMENOrdering Facility: [facility] Address: [address] [place] [address] Performed By: #### 5 8410-2 ####[facility] LABIA [id number] [place] [address] [place] Hemoglobin (Bld) [Mass/Vol] 9.6 g/dL Low 13.0-17.0 [facility] Comment on above: Order Comment: Speci men Type: BLOOD SPECIMENOrdering Facility: [facility] Address: [address] [place] [address] Performed By: #### 5 8410-2 ####[facility] LABIA [id number] [place] [address] [place] MCH (RBC) [Entitic mass] 32.9 pg Normal 26.0-34.0 [facility] Comment on above: Order Comment: Speci men Type: BLOOD SPECIMENOrdering Facility: [facility] Address: [address] [place] [address] Performed By: #### 5 8410-2 ####[facility] LABIA [id number] [place] [address] [place] MCHC (RBC) [Mass/Vol] 32.7 g/dL Normal 30.5-36.[address] [facility] Comment on above: Order Comment: Speci men Type: BLOOD SPECIMENOrdering Facility: [facility] Address: [address] [place] [address] Performed By: #### 5 8410-2 ####[facility] LABIA [id number] [place] [address] [place] MCV (RBC) [Entitic vol] 100.7 fL High 80.0-100.0 [facility] Comment on above: Order Comment: Speci men Type: BLOOD SPECIMENOrdering Facility: [facility] Address: [address] [place] [address] Performed By: #### 5 8410-2 ####[facility] LABCLIA [id number] [place] [address] [place] Nucleated RBC (Bld) [#/Vol] 10*3/uL Normal <0.01 [facility] Comment on above: Order Comment: Speci men Type: BLOOD SPECIMENOrdering Facility: [facility] Address: [address] [place] [address] Performed By: #### 5 8410-2 ####[facility] LABIA [id number] [place] [address] [place] Platelet mean volume (Bld) [Entitic vol] 12.0 fL Normal 9.0-12.7 [facility] Comment on above: Order Comment: Speci men Type: BLOOD SPECIMENOrdering Facility: [facility] Address: [address] [place] [address] Performed By: #### 5 8410-2 ####[facility] LABIA [id number] [place] [address] [place] Platelets (Bld) [#/Vol] 166 10*3/uL Normal 150-400 [facility] Comment on above: Order Comment: Speci men Type: BLOOD SPECIMENOrdering Facility: [facility] Address: [address] [place] [address] Performed By: #### 5 8410-2 ####[facility] LABIA [id number] [place] [address] [place] RBC (Bld) [#/Vol] 2.92 10*6/uL Low 4.20-6.00 [facility] Comment on above: Order Comment: Speci men Type: BLOOD SPECIMENOrdering Facility: [facility] Address: [address] [place] [address] Performed By: #### 5 8410-2 ####[facility] LABIA [id number] [address] [address] [address] [place] WBC (Bld) [#/Vol] 6.56 10*3/uL Normal 3.70-11.00 [facility] Comment on above: Order Comment: Speci men Type: BLOOD SPECIMENOrdering Facility: [facility] Address: [address] [place] [address] Performed By: #### 5 8410-2 ####[facility] LABCLIA [id number] [place] [address] [place] Comprehensive metabolic 2000 panelon 05-03-2024 Albumin [Mass/Vol] 2.8 g/dL Low 3.9-4.9 [facility] Comment on above: Order Comment: Speci men Type: BLOOD SPECIMENOrdering Facility: [facility] Address: [address] [place] [address] Performed By: #### 2 4323-8, 94426-6, 2777-1 ####[facility] LABCLIA [id number] [place] [address] [place] ALP [Catalytic activity/Vol] 249 U/L High 38-113 [facility] Comment on above: Order Comment: Speci men Type: BLOOD SPECIMENOrdering Facility: [facility] Address: [address] [place] [address] Performed By: #### 2 4323-8, 53227-3, 2777-1 ####[facility] LABCLIA [id number] [place] [address] [place] ALT [Catalytic activity/Vol] 135 U/L High 10-54 [facility] Comment on above: Order Comment: Speci men Type: BLOOD SPECIMENOrdering Facility: [facility] Address: [address] [place] [address] Performed By: #### 2 4323-8, 81010-8, 2777-1 ####[facility] LABCLIA [id number] [place] [id number] [place] Anion gap [Moles/Vol] 9 mmol/L Normal 8-[address] [facility] Comment on above: Order Comment: Speci men Type: BLOOD SPECIMENOrdering Facility: [facility] Address: [address] [place] [address] Performed By: #### 2 4323-8, , 2776-08 ####[facility] LABCLIA [id number] [place] [address] [place] AST [Catalytic activity/Vol] 82 U/L High 14-40 [facility] Comment on above: Order Comment: Speci men Type: BLOOD SPECIMENOrdering Facility: [facility] Address: [address] [place] [address] Performed By: #### 2 4323-8, , 2776-08 ####[facility] LABCLIA [id number] [place] [address] [place] Bilirubin [Mass/Vol] 0.5 mg/dL Normal 0.2-1.3 [facility] Comment on above: Order Comment: Speci men Type: BLOOD SPECIMENOrdering Facility: [facility] Address: [address] [place] [address] Performed By: #### 2 4323-8, , 2776-08 ####[facility] LABCLIA [id number] [place] [address] [place] Calcium [Mass/Vol] 7.9 mg/dL Low 8.5-10.2 [facility] Comment on above: Order Comment: Speci men Type: BLOOD SPECIMENOrdering Facility: [facility] Address: [address] [place], [place] [address] Performed By: #### 2 4323-8, , 2776-08 ####[facility] LABCLIA [id number] [facility] [place] [id number] [place] Chloride [Moles/Vol] 104 mmol/L Normal 98-107 [facility] Comment on above: Order Comment: Speci men Type: BLOOD SPECIMENOrdering Facility: [facility] Address: [address] [place], [place] [address] Performed By: #### 2 4323-8, , 2776-08 ####[facility] LABCLIA [id number] [address] [address] [place] CO2 [Moles/Vol] 23 mmol/L Normal 22-30 [facility] Comment on above: Order Comment: Speci men Type: BLOOD SPECIMENOrdering Facility: [facility] Address: [address] [place] [address] Performed By: #### 2 4323-8, , 2776-08 ####[facility] LABIA [id number] [address] [address] [place] Creatinine [Mass/Vol] 1.47 mg/dL High 0.73-1.[address] [facility] Comment on above: Order Comment: Speci men Type: BLOOD SPECIMENOrdering Facility: [facility] Address: [address] [place] [address] Performed By: #### 2 4323-8, , 2776-08 ####[facility] LABIA [id number] [place] [address] [place] Creatinine and Glomerular filtration rate.predicted panel (S/P/Bld) 49 mL/min/1.73m??? Low >=60 [facility] Comment on above: Order Comment: Speci men Type: BLOOD SPECIMENOrdering Facility: [facility] Address: [address] [place] [address] Result Comment: Ruby mated Glomerular Filtration Rate (eGFR) is calculated using the 2020 CKD-EPI creatinine equation. This equation utilizes serum creatinine, sex, and age as parameters. The creatinine assay has traceable calibration to isotope dilution-mass spectrometry. Refer to KDIGO guidelines for clinical interpretation. In patients with unstable renal function, e.g. those with acute kidney injury, the eGFR may not accurately reflect actual GFR. Performed By: #### 2 4323-8, , 2776-08 ####[facility] LABCLIA [id number] [place] [address] [place] Glucose [Mass/Vol] 117 mg/dL High 74-99 [facility] Comment on above: Order Comment: Speci men Type: BLOOD SPECIMENOrdering Facility: [facility] Address: [address] [place] [address] Result Comment: The [place] [employer] (ADA) provides guidance for cutoff values for fasting glucose and random glucose. The ADA defines fasting as no caloric intake for at least 8 hours. Fasting plasma glucose results between 100 to 125 mg/dL indicate increased risk for diabetes (prediabetes).Fasting plasma glucose results greater than or equal to 126 mg/dL meet the criteria for diagnosis of diabetes. In the absence of unequivocal hyperglycemia, results should be confirmed by repeat testing. In a patient with classic symptoms of hyperglycemia or hyperglycemic crisis, random plasma glucose results greater than or equal to 200 mg/dL meet the criteria for diagnosis of diabetes.Reference: Standards of Medical Care in Diabetes 2016, [place] [employer]. Diabetes Care. 2016.39(Suppl 1). Performed By: #### 2 4323-8, , 2776-08 ####[facility] LABIA [id number] [place] [address] [place] Potassium [Moles/Vol] 3.9 mmol/L Normal 3.7-5.[address] [facility] Comment on above: Order Comment: Speci men Type: BLOOD SPECIMENOrdering Facility: [facility] Address: [address] [place] [address] Performed By: #### 2 4323-8, , 2776-08 ####[facility] LABIA [id number] [place] [address] [place] Protein [Mass/Vol] 5.2 g/dL Low 6.3-8.0 [facility] Comment on above: Order Comment: Speci men Type: BLOOD SPECIMENOrdering Facility: [facility] Address: [address] [id number] Performed By: #### 2 4323-8, 88672-7, 2777-1 ####[facility] LABCLIA [id number] [place] [id number] [place] Sodium [Moles/Vol] 136 mmol/L Normal 136-144 [facility] Comment on above: Order Comment: Speci men Type: BLOOD SPECIMENOrdering Facility: [facility] Address: [address] [place] [address] Performed By: #### 2 4323-8, 65137-2, 2777-1 ####[facility] LABIA [id number] [place] [address] [place] Urea nitrogen [Mass/Vol] 26 mg/dL High 9-24 [facility] Comment on above: Order Comment: Speci men Type: BLOOD SPECIMENOrdering Facility: [facility] Address: [address] [place] [address] Performed By: #### 2 4323-8, 73191-0, 2777- ####[facility] LABIA [id number] [place] [id number] [place] Magnesium SerPl-ncon 05-03 Magnesium [Mass/Vol] 2.2 mg/dL Normal 1.7-2.3 [facility] Comment on above: Order Comment: Speci men Type: BLOOD SPECIMENOrdering Facility: [facility] Address: [address] [place] [address] Performed By: #### 2 4323-8, 44302-1, 2777-1 ####[facility] LABIA [id number] [place] [id number] [place] NUTRITIONon 05-03-2024 NUTRITION Normal [facility] Phosphate SerPl-mCncon 05-03 Phosphate [Mass/Vol] 2.7 mg/dL Normal 2.7-4.8 [facility] Comment on above: Order Comment: Speci men Type: BLOOD SPECIMENOrdering Facility: [facility] Address: [address] [place] [address] Performed By: #### 2 4323-8, 13919-9, 2777-1 ####[facility] LABCLIA [id number] [place] [address] [place] THERAPY NTon 05-03-2024 THERAPY NT Normal [facility] THERAPY NT Normal [facility] XR CHEST 1V FRONTAL PORTon 1 XR CHEST 1V FRONTAL PORT Normal [facility] CASE MGT INIT ASSESon 2023 CASE MGT INIT ASSES Normal [facility] CBC panel Auto (Bld)on 05-02 Erythrocyte distribution width (RBC) [Ratio] 14.4 % Normal 11.5-15.0 [facility] Comment on above: Order Comment: Speci men Type: BLOOD SPECIMENOrdering Facility: [facility] Address: [address] [place] [address] Performed By: #### 5 8410-2 ####[facility] LABCLIA [id number] [place] [address] [place] Hematocrit (Bld) [Volume fraction] 28.8 % Low 39.0-51.0 [facility] Comment on above: Order Comment: Speci men Type: BLOOD SPECIMENOrdering Facility: [facility] Address: [address] [place] [address] Performed By: #### 5 8410-2 ####[facility] LABCLIA [id number] [place] [id number] [place] Hemoglobin (Bld) [Mass/Vol] 9.4 g/dL Low 13.0-17.0 [facility] Comment on above: Order Comment: Speci men Type: BLOOD SPECIMENOrdering Facility: [facility] Address: [address] [place] [address] Performed By: #### 5 8410-2 ####[facility] LABCLIA [id number] [place] [address] [place] MCH (RBC) [Entitic mass] 33.0 pg Normal 26.0-34.0 [facility] Comment on above: Order Comment: Speci men Type: BLOOD SPECIMENOrdering Facility: [facility] Address: [address] [place] [address] Performed By: #### 5 8410-2 ####[facility] [id number] [place] [address] [place] MCHC (RBC) [Mass/Vol] 32.6 g/dL Normal 30.5-36.[address] [facility] Comment on above: Order Comment: Speci men Type: BLOOD SPECIMENOrdering Facility: [facility] Address: [address] [place] [address] Performed By: #### 5 8410-2 ####[facility] [id number] [place] [address] [place] MCV (RBC) [Entitic vol] 101.1 fL High 80.0-100.0 [facility] Comment on above: Order Comment: Speci men Type: BLOOD SPECIMENOrdering Facility: [facility] Address: [address] [place] [address] Performed By: #### 5 8410-2 ####[facility] [id number] [place] [address] [place] Nucleated RBC (Bld) [#/Vol] 10*3/uL Normal <0.01 [facility] Comment on above: Order Comment: Speci men Type: BLOOD SPECIMENOrdering Facility: [facility] Address: [address] [place] [address] Performed By: #### 5 8410-2 ####[facility] [id number] [place] [address] [place] Platelet mean volume (Bld) [Entitic vol] 11.9 fL Normal 9.0-12.7 [facility] Comment on above: Order Comment: Speci men Type: BLOOD SPECIMENOrdering Facility: [facility] Address: [address] [place] [address] Performed By: #### 5 8410-2 ####[facility] LABCLIA [id number] [place] [address] [place] Platelets (Bld) [#/Vol] 155 10*3/uL Normal 150-400 [facility] Comment on above: Order Comment: Speci men Type: BLOOD SPECIMENOrdering Facility: [facility] Address: [address] [place] [address] Performed By: #### 5 8410-2 ####[facility] LABCLIA [id number] [place] [address] [place] RBC (Bld) [#/Vol] 2.85 10*6/uL Low 4.20-6.00 [facility] Comment on above: Order Comment: Speci men Type: BLOOD SPECIMENOrdering Facility: [facility] Address: [address] [place] [address] Performed By: #### 5 8410-2 ####[facility] LABCLIA [id number] [place] [address] [place] WBC (Bld) [#/Vol] 9.26 10*3/uL Normal 3.70-11.00 [facility] Comment on above: Order Comment: Speci men Type: BLOOD SPECIMENOrdering Facility: [facility] Address: [address] [place] [address] Performed By: #### 5 8410-2 ####[facility] LABIA [id number] [place] [address] [place] CONSULTon 05-02-2024 CONSULT Normal [facility] CONSULT PROGon 05-02-2024 CONSULT PROG Normal [facility] Comprehensive metabolic 2000 panelon 05-02-2024 Albumin [Mass/Vol] 2.7 g/dL Low 3.9-4.9 [facility] Comment on above: Order Comment: Speci men Type: BLOOD SPECIMENOrdering Facility: [facility] Address: [address] [id number] Performed By: #### 2 4323-8, 277- ####[facility] LABCLIA [id number] [facility] [address] [place] ALP [Catalytic activity/Vol] 243 U/L High 38-113 [facility] Comment on above: Order Comment: Speci men Type: BLOOD SPECIMENOrdering Facility: [facility] Address: [address] [place] [address] Performed By: #### 2 4323-8, 2776- ####[facility] LABCLIA [id number] [place] [address] [place] ALT [Catalytic activity/Vol] 189 U/L High 10-54 [facility] Comment on above: Order Comment: Speci men Type: BLOOD SPECIMENOrdering Facility: [facility] Address: [address] [place] [address] Performed By: #### 2 4323-8, 27701-31 ####[facility] LABCLIA [id number] [place] [address] [place] Anion gap [Moles/Vol] 12 mmol/L Normal 8-[address] [facility] Comment on above: Order Comment: Speci men Type: BLOOD SPECIMENOrdering Facility: [facility] Address: [address] [place] [address] Performed By: #### 2 4323-8, 277- ####[facility] LABCLIA [id number] [place] [address] [place] AST [Catalytic activity/Vol] 155 U/L High 14-40 [facility] Comment on above: Order Comment: Speci men Type: BLOOD SPECIMENOrdering Facility: [facility] Address: [address] [place], [place] [address] Performed By: #### 2 4323-8, 2776-08 ####[facility] LABCLIA [id number] [place] [address] [place] Bilirubin [Mass/Vol] 0.7 mg/dL Normal 0.2-1.3 [facility] Comment on above: Order Comment: Speci men Type: BLOOD SPECIMENOrdering Facility: [facility] Address: [address] [place] [address] Performed By: #### 2 4323-8, 2776-08 ####[facility] LABCLIA [id number] [place] [address] [place] Calcium [Mass/Vol] 7.9 mg/dL Low 8.5-10.2 [facility] Comment on above: Order Comment: Speci men Type: BLOOD SPECIMENOrdering Facility: [facility] Address: [address] [place] [address] Performed By: #### 2 4323-8, 2776-08 ####[facility] LABCLIA [id number] [place] [address] [place] Chloride [Moles/Vol] 103 mmol/L Normal 98-107 [facility] Comment on above: Order Comment: Speci men Type: BLOOD SPECIMENOrdering Facility: [facility] Address: [address] [place] [address] Performed By: #### 2 4323-8, 2776-08 ####[facility] LABCLIA [id number] [place] [address] [place] CO2 [Moles/Vol] 21 mmol/L Low 22-30 [facility] Comment on above: Order Comment: Speci men Type: BLOOD SPECIMENOrdering Facility: [facility] Address: [address] [place] [address] Performed By: #### 2 4323-8, 27701-31 ####[facility] LABCLIA [id number] [place] [address] [place] Creatinine [Mass/Vol] 1.77 mg/dL High 0.73-1.[address] [facility] Comment on above: Order Comment: Elmo patterson Type: BLOOD SPECIMENOrdering Facility: [facility] Address: [address] [place] [address] Performed By: #### 2 4323-8, 277- ####[facility] LABIA [id number] [place] [address] [place] Creatinine and Glomerular filtration rate.predicted panel (S/P/Bld) 39 mL/min/1.73m??? Low >=60 [facility] Comment on above: Order Comment: Elmo patterson Type: BLOOD SPECIMENOrdering Facility: [facility] Address: [address] [place] [address] Result Comment: Ruby mated Glomerular Filtration Rate (eGFR) is calculated using the 2020 CKD-EPI creatinine equation. This equation utilizes serum creatinine, sex, and age as parameters. The creatinine assay has traceable calibration to isotope dilution-mass spectrometry. Refer to KDIGO guidelines for clinical interpretation. In patients with unstable renal function, e.g. those with acute kidney injury, the eGFR may not accurately reflect actual GFR. Performed By: #### 2 4323-8, 27701-31 ####[facility] LABIA [id number] [place] [address] [place] Glucose [Mass/Vol] 112 mg/dL High 74-99 [facility] Comment on above: Order Comment: Elmo patterson Type: BLOOD SPECIMENOrdering Facility: [facility] Address: [address] [place] [address] Result Comment: The [place] [employer] (ADA) provides guidance for cutoff values for fasting glucose and random glucose. The ADA defines fasting as no caloric intake for at least 8 hours. Fasting plasma glucose results between 100 to 125 mg/dL indicate increased risk for diabetes (prediabetes).Fasting plasma glucose results greater than or equal to 126 mg/dL meet the criteria for diagnosis of diabetes. In the absence of unequivocal hyperglycemia, results should be confirmed by repeat testing. In a patient with classic symptoms of hyperglycemia or hyperglycemic crisis, random plasma glucose results greater than or equal to 200 mg/dL meet the criteria for diagnosis of diabetes.Reference: Standards of Medical Care in Diabetes 2016, [place] [employer]. Diabetes Care. 2016.39(Suppl 1). Performed By: #### 2 4323-8, 2776-08 ####[facility] LABCLIA [id number] [place] [address] [place] Potassium [Moles/Vol] 3.7 mmol/L Normal 3.7-5.[address] [facility] Comment on above: Order Comment: Speci men Type: BLOOD SPECIMENOrdering Facility: [facility] Address: [address] [place] [address] Performed By: #### 2 4323-8, 2776-08 ####[facility] LABCLIA [id number] [place] [address] [place] Protein [Mass/Vol] 5.1 g/dL Low 6.3-8.0 [facility] Comment on above: Order Comment: Speci men Type: BLOOD SPECIMENOrdering Facility: [facility] Address: [address] [place] [address] Performed By: #### 2 4323-8, 2776-08 ####[facility] LABCLIA [id number] [place] [address] [place] Sodium [Moles/Vol] 136 mmol/L Normal 136-144 [facility] Comment on above: Order Comment: Speci men Type: BLOOD SPECIMENOrdering Facility: [facility] Address: [address] [place] [address] Performed By: #### 2 4323-8, 2776-08 ####[facility] LABCLIA [id number] [address] [address] [place] Urea nitrogen [Mass/Vol] 27 mg/dL High 9-24 [facility] Comment on above: Order Comment: Speci men Type: BLOOD SPECIMENOrdering Facility: [facility] Address: [address] [place] [address] Performed By: #### 2 4323-8, 2777-1 ####[facility] LABCLIA [id number] [place] [address] [place] Phosphate SerPl-mCncon 05-02 Phosphate [Mass/Vol] 3.1 mg/dL Normal 2.7-4.8 [facility] Comment on above: Order Comment: Speci men Type: BLOOD SPECIMENOrdering Facility: [facility] Address: [address] [place] [address] Performed By: #### 2 4323-8, 2777-1 ####[facility] LABCLIA [id number] [place] [address] [place] THERAPY NTon 05-02-2024 THERAPY NT Normal [facility] THERAPY NT Normal [facility] Urinalysis complete panel (U )on 05-02-2024 Bacteria LM.HPF (Urine sed) [#/Area] Negative Normal Negative [facility] Comment on above: Order Comment: Speci men Type: URINE SPECIMENOrdering Facility: [facility] Address: [address] [place] [address] Performed By: #### 2 4356-8 ####[facility] LABCLIA [id number] [place] [address] [place] Bilirubin Ql (U) Negative Normal Negative [facility] Comment on above: Order Comment: Speci men Type: URINE SPECIMENOrdering Facility: [facility] Address: [address] [place] [address] Performed By: #### 2 4356-8 ####[facility] LABCLIA [id number] [place] [address] [place] Clarity (Unsp spec) Clear Normal Clear [facility] Comment on above: Order Comment: Speci men Type: URINE SPECIMENOrdering Facility: [facility] Address: [address] [place] [address] Performed By: #### 2 4356-8 ####[facility] LABCLIA [id number] [place] [address] [place] Color (U) Yellow Normal Yellow [facility] Comment on above: Order Comment: Speci men Type: URINE SPECIMENOrdering Facility: [facility] Address: [address] [place] [address] Performed By: #### 2 4356-8 ####[facility] LABCLIA [id number] [place] [address] [place] Epithelial cells LM.HPF (Urine sed) [#/Area] None Seen Normal [facility] Comment on above: Order Comment: Speci men Type: URINE SPECIMENOrdering Facility: [facility] Address: [address] [place] [address] Performed By: #### 2 4356-8 ####[facility] LABCLIA [id number] [place] [address] [place] Glucose Test strip (U) [Mass/Vol] 2+ Abnormal Negative [facility] Comment on above: Order Comment: Speci men Type: URINE SPECIMENOrdering Facility: [facility] Address: [address] [place] [address] Performed By: #### 2 4356-8 ####[facility] LABCLIA [id number] [place] [address] [place] Hemoglobin Ql (U) 3+ Abnormal Negative [facility] Comment on above: Order Comment: Speci men Type: URINE SPECIMENOrdering Facility: [facility] Address: [address] [place] [address] Performed By: #### 2 4356-8 ####[facility] LABCLIA [id number] [place] [address] [place] Hyaline casts (Urine sed) [#/Area] 4-10 /LPF Abnormal 0 /LPF [facility] Comment on above: Order Comment: Speci men Type: URINE SPECIMENOrdering Facility: [facility] Address: [address] [place] [address] Performed By: #### 2 4356-8 ####[facility] LABCLIA [id number] [place] [address] [place] Ketones Ql (U) Negative Normal Negative [facility] Comment on above: Order Comment: Speci men Type: URINE SPECIMENOrdering Facility: [facility] Address: [address] [place] [address] Performed By: #### 2 4356-8 ####[facility] LABCLIA [id number] [place] [address] [place] Leukocyte esterase Test strip Ql (U) 2+ Abnormal Negative [facility] Comment on above: Order Comment: Speci men Type: URINE SPECIMENOrdering Facility: [facility] Address: [address] [place] [address] Performed By: #### 2 4356-8 ####[facility] LABCLIA [id number] [place] [address] [place] Nitrite Ql (U) Negative Normal Negative [facility] Comment on above: Order Comment: Speci men Type: URINE SPECIMENOrdering Facility: [facility] Address: [address] [place] [address] Performed By: #### 2 4356-8 ####[facility] LABCLIA [id number] [place] [address] [place] pH (U) 5.5 [pH] Normal <8.5 [facility] Comment on above: Order Comment: Speci men Type: URINE SPECIMENOrdering Facility: [facility] Address: [address] [place] [address] Performed By: #### 2 4356-8 ####[facility] LABCLIA [id number] [place] [address] [place] Protein (U) [Mass/Vol] Trace Abnormal Negative Cl [facility] Comment on above: Order Comment: Speci men Type: URINE SPECIMENOrdering Facility: [facility] Address: [address] [place] [address] Performed By: #### 2 4356-8 ####[facility] LABIA [id number] [place] [address] [place] RBC LM.HPF (Urine sed) [#/Area] /[HPF] Abnormal 0-2 /HPF [facility] Comment on above: Order Comment: Speci men Type: URINE SPECIMENOrdering Facility: [facility] Address: [address] [place] [address] Performed By: #### 2 4356-8 ####[facility] LABIA [id number] [place] [address] [place] Specific gravity (U) [Rel density] 1.024 Normal 1.005-1.03 0 [facility] Comment on above: Order Comment: Speci men Type: URINE SPECIMENOrdering Facility: [facility] Address: [address] [place] [address] Performed By: #### 2 4356-8 ####[facility] LABIA [id number] [place] [address] [place] Urobilinogen Ql (U) 0.2 EU/dL Normal 0.2-1.0 EU/dL [facility] Comment on above: Order Comment: Speci men Type: URINE SPECIMENOrdering Facility: [facility] Address: [address] [place] [address] Performed By: #### 2 4356-8 ####[facility] LABIA [id number] [place] [address] [place] WBC LM.HPF (Urine sed) [#/Area] 11-20 /HPF Abnormal 0-5 /HPF [facility] Comment on above: Order Comment: Speci men Type: URINE SPECIMENOrdering Facility: [facility] Address: [address] [place] [address] Performed By: #### 2 4356-8 ####[facility] LABCLIA [id number] [place] [address] [place] Yeast.budding LM.HPF (Urine sed) [#/Area] Present Abnormal None Seen [facility] Comment on above: Order Comment: Speci men Type: URINE SPECIMENOrdering Facility: [facility] Address: [address] [place] [address] Performed By: #### 2 4356-8 ####[facility] LABCLIA [id number] [place] [address] [place] Urinalysis complete pnl Uron 05-02-2024 Urinalysis complete panel (U) Normal [facility] Comment on above: Order Comment: Speci men Type: URINE SPECIMENOrdering Facility: [facility] Address: [address] [place] [address] Performed By: #### 2 4356-8 ####[facility] LABCLIA [id number] [place] [address] [place] Bacteria Bld Culton 05-01-20 24 Bacteria identified Cx Nom (Bld) CULTURE, BLOOD: No growth 5 days Normal [facility] Comment on above: Performed By: #### 6 00-7 ####[facility] LABCLIA [id number] [place] [address] [place] Bacteria identified Cx Nom (Bld) CULTURE, BLOOD: No growth 5 days Normal [facility] Comment on above: Performed By: #### 6 00-7 ####[facility] LABCLIA [id number] [place] [address] [place] Bacteria Wnd Culton 05-01-20 24 Bacteria identified Cx Nom (Wound) Abnormal [facility] Comment on above: Performed By: #### 6 462-6 ####[facility] LABIA [id number] [place] [address] [place] CBC panel Auto (Bld)on 05-01 Erythrocyte distribution width (RBC) [Ratio] 14.6 % Normal 11.5-15.0 [facility] Comment on above: Order Comment: Speci men Type: BLOOD SPECIMENOrdering Facility: [facility] Address: [address] [place] [address] Performed By: #### 5 8410-2 ####[facility] LABIA [id number] [place] [address] [place] Hematocrit (Bld) [Volume fraction] 30.1 % Low 39.0-51.0 [facility] Comment on above: Order Comment: Speci men Type: BLOOD SPECIMENOrdering Facility: [facility] Address: [address] [place] [address] Performed By: #### 5 8410-2 ####[facility] [id number] [place] [address] [place] Hemoglobin (Bld) [Mass/Vol] 9.9 g/dL Low 13.0-17.0 [facility] Comment on above: Order Comment: Speci men Type: BLOOD SPECIMENOrdering Facility: [facility] Address: [address] [place] [place] [address] Performed By: #### 5 8410-2 ####[facility] [id number] [place] [id number] [place] MCH (RBC) [Entitic mass] 32.9 pg Normal 26.0-34.0 [facility] Comment on above: Order Comment: Speci men Type: BLOOD SPECIMENOrdering Facility: [facility] Address: [address] [place] [address] Performed By: #### 5 8410-2 ####[facility] [id number] [place] [address] [place] MCHC (RBC) [Mass/Vol] 32.9 g/dL Normal 30.5-36.[address] [facility] Comment on above: Order Comment: Speci men Type: BLOOD SPECIMENOrdering Facility: [facility] Address: [address] [place] [address] Performed By: #### 5 8410-2 ####[facility] LABCLIA [id number] [place] [address] [place] MCV (RBC) [Entitic vol] 100.0 fL Normal 80.0-100.0 [facility] Comment on above: Order Comment: Speci men Type: BLOOD SPECIMENOrdering Facility: [facility] Address: [address] [place] [address] Performed By: #### 5 8410-2 ####[facility] LABCLIA [id number] [place] [address] [place] Nucleated RBC (Bld) [#/Vol] 10*3/uL Normal <0.01 [facility] Comment on above: Order Comment: Speci men Type: BLOOD SPECIMENOrdering Facility: [facility] Address: [address] [place] [address] Performed By: #### 5 8410-2 ####[facility] [id number] [place] [address] [place] Platelet mean volume (Bld) [Entitic vol] 11.2 fL Normal 9.0-12.7 [facility] Comment on above: Order Comment: Speci men Type: BLOOD SPECIMENOrdering Facility: [facility] Address: [address] [place] [address] Performed By: #### 5 8410-2 ####[facility]CL[facility] [id number] [place] [address] [place] Platelets (Bld) [#/Vol] 176 10*3/uL Normal 150-400 [facility] Comment on above: Order Comment: Speci men Type: BLOOD SPECIMENOrdering Facility: [facility] Address: [address] [place] [address] Performed By: #### 5 8410-2 ####[facility] [id number] [place] [address] [place] RBC (Bld) [#/Vol] 3.01 10*6/uL Low 4.20-6.00 [facility] Comment on above: Order Comment: Speci men Type: BLOOD SPECIMENOrdering Facility: [facility] Address: [address] [place] [address] Performed By: #### 5 8410-2 ####[facility] [id number] [place] [address] [place] WBC (Bld) [#/Vol] 19.89 10*3/uL High 3.70-11.00 [facility] Comment on above: Order Comment: Speci men Type: BLOOD SPECIMENOrdering Facility: [facility] Address: [address] [place] [address] Performed By: #### 5 8410-2 ####[facility] [id number] [place] [address] [place] Erythrocyte distribution width (RBC) [Ratio] 14.3 % Normal 11.5-15.0 [facility] Comment on above: Order Comment: Speci men Type: BLOOD SPECIMENOrdering Facility: [facility] Address: [address] [place] [address] Performed By: #### 5 8410-2 ####[facility] [id number] [place] [address] [place] Hematocrit (Bld) [Volume fraction] 32.4 % Low 39.0-51.0 [facility] Comment on above: Order Comment: Speci men Type: BLOOD SPECIMENOrdering Facility: [facility] Address: [address] [place] [address] Performed By: #### 5 8410-2 ####[facility] [id number] [place] [address] [place] Hemoglobin (Bld) [Mass/Vol] 10.5 g/dL Low 13.0-17.0 [facility] Comment on above: Order Comment: Speci men Type: BLOOD SPECIMENOrdering Facility: [facility] Address: [address] [place] [address] Performed By: #### 5 8410-2 ####[facility] [id number] [place] [address] [place] MCH (RBC) [Entitic mass] 32.9 pg Normal 26.0-34.0 [facility] Comment on above: Order Comment: Speci men Type: BLOOD SPECIMENOrdering Facility: [facility] Address: [address] [place] [address] Performed By: #### 5 8410-2 ####[facility] [id number] [place] [address] [place] MCHC (RBC) [Mass/Vol] 32.4 g/dL Normal 30.5-36.[address] [facility] Comment on above: Order Comment: Speci men Type: BLOOD SPECIMENOrdering Facility: [facility] Address: [address] [place] [address] Performed By: #### 5 8410-2 ####[facility] [id number] [place] [address] [place] MCV (RBC) [Entitic vol] 101.6 fL High 80.0-100.0 [facility] Comment on above: Order Comment: Speci men Type: BLOOD SPECIMENOrdering Facility: [facility] Address: [address] [place] [address] Performed By: #### 5 8410-2 ####[facility] [id number] [place] [address] [place] Nucleated RBC (Bld) [#/Vol] 10*3/uL Normal <0.01 [facility] Comment on above: Order Comment: Speci men Type: BLOOD SPECIMENOrdering Facility: [facility] Address: [address] [place] [address] Performed By: #### 5 8410-2 ####[facility]CL[facility] [id number] [place] [address] [place] Platelet mean volume (Bld) [Entitic vol] 11.6 fL Normal 9.0-12.7 [facility] Comment on above: Order Comment: Speci men Type: BLOOD SPECIMENOrdering Facility: [facility] Address: [address] [place] [address] Performed By: #### 5 8410-2 ####[facility]CLIA [id number] [place] [address] [place] Platelets (Bld) [#/Vol] 205 10*3/uL Normal 150-400 [facility] Comment on above: Order Comment: Speci men Type: BLOOD SPECIMENOrdering Facility: [facility] Address: [address] [place] [address] Performed By: #### 5 8410-2 ####[facility]CL[facility] [id number] [place] [address] [place] RBC (Bld) [#/Vol] 3.19 10*6/uL Low 4.20-6.00 [facility] Comment on above: Order Comment: Speci men Type: BLOOD SPECIMENOrdering Facility: [facility] Address: [address] [place] [address] Performed By: #### 5 8410-2 ####[facility]CLIA [id number] [place] [address] [place] WBC (Bld) [#/Vol] 23.14 10*3/uL High 3.70-11.00 [facility] Comment on above: Order Comment: Speci men Type: BLOOD SPECIMENOrdering Facility: [facility] Address: [address] [place] [address] Performed By: #### 5 8410-2 ####[facility]CLIA [id number] [address] [address] [place] CONSULTon 05-01-2024 CONSULT Normal [facility] CT ABD/PEL W IVCONon 024 CT ABD/PEL W IVCON Normal [facility] Comprehensive metabolic 2000 panelon 05-01-2024 Albumin [Mass/Vol] 2.8 g/dL Low 3.9-4.9 [facility] Comment on above: Order Comment: Speci men Type: BLOOD SPECIMENOrdering Facility: [facility] Address: [address] [place] [address] Performed By: #### 1 9123-9, 32570-8, 2777-1 ####[facility]CLIA [id number] [place] [address] [place] ALP [Catalytic activity/Vol] 177 U/L High 38-113 [facility] Comment on above: Order Comment: Speci men Type: BLOOD SPECIMENOrdering Facility: [facility] Address: [address] [place] [address] Performed By: #### 1 9123-9, 33441-4, 2777-1 ####[facility]CLIA [id number] [place] [address] [place] ALT [Catalytic activity/Vol] 249 U/L High 10-54 [facility] Comment on above: Order Comment: Speci men Type: BLOOD SPECIMENOrdering Facility: [facility] Address: [address] [place] [address] Performed By: #### 1 9123-9, 07064-5, 2777-1 ####[facility]CLIA [id number] [place] [address] [place] Anion gap [Moles/Vol] 14 mmol/L Normal 8-[address] [facility] Comment on above: Order Comment: Speci men Type: BLOOD SPECIMENOrdering Facility: [facility] Address: [address] [place] [address] Performed By: #### 1 9123-9, 03457-8, 2776- ####[facility] LABCLIA [id number] [place] [address] [place] AST [Catalytic activity/Vol] 233 U/L High 14-40 [facility] Comment on above: Order Comment: Speci men Type: BLOOD SPECIMENOrdering Facility: [facility] Address: [address] [place] [address] Performed By: #### 1 9123-9, 09786-9, 2776-08 ####[facility]CLIA [id number] [place] [address] [place] Bilirubin [Mass/Vol] 1.5 mg/dL High 0.2-1.3 [facility] Comment on above: Order Comment: Speci men Type: BLOOD SPECIMENOrdering Facility: [facility] Address: [address] [place] [address] Performed By: #### 1 9123-9, 75781-2, 2776-08 ####[facility]CLIA [id number] [place] [address] [place] Calcium [Mass/Vol] 8.1 mg/dL Low 8.5-10.2 [facility] Comment on above: Order Comment: Speci men Type: BLOOD SPECIMENOrdering Facility: [facility] Address: [address] [place] [address] Performed By: #### 1 9123-9, 69323-5, 2776- ####[facility] LABCLIA [id number] [place] [id number] [place] Chloride [Moles/Vol] 102 mmol/L Normal 98-107 [facility] Comment on above: Order Comment: Speci men Type: BLOOD SPECIMENOrdering Facility: [facility] Address: [address] [place] [address] Performed By: #### 1 9123-9, 46568-0, 2777-1 ####[facility]CLIA [id number] [address] [address] [place] CO2 [Moles/Vol] 20 mmol/L Low 22-30 [facility] Comment on above: Order Comment: Speci men Type: BLOOD SPECIMENOrdering Facility: [facility] Address: [address] [place] [address] Performed By: #### 1 9123-9, 44400-9, 27701-31 ####[facility]CLIA [id number] [place] [address] [place] Creatinine [Mass/Vol] 1.68 mg/dL High 0.73-1.[address] [facility] Comment on above: Order Comment: Speci men Type: BLOOD SPECIMENOrdering Facility: [facility] Address: [address] [place] [address] Performed By: #### 1 9123-9, 17708-5, 27701-31 ####[facility]CLIA [id number] [place] [address] [place] Creatinine and Glomerular filtration rate.predicted panel (S/P/Bld) 41 mL/min/1.73m??? Low >=60 [facility] Comment on above: Order Comment: Speci men Type: BLOOD SPECIMENOrdering Facility: [facility] Address: [address] [place] [address] Result Comment: Ruby mated Glomerular Filtration Rate (eGFR) is calculated using the 2020 CKD-EPI creatinine equation. This equation utilizes serum creatinine, sex, and age as parameters. The creatinine assay has traceable calibration to isotope dilution-mass spectrometry. Refer to KDIGO guidelines for clinical interpretation. In patients with unstable renal function, e.g. those with acute kidney injury, the eGFR may not accurately reflect actual GFR. Performed By: #### 1 9123-9, 68526-0, 2776-08 ####[facility]CLIA [id number] [address] [address] [place] Glucose [Mass/Vol] 102 mg/dL High 74-99 [facility] Comment on above: Order Comment: Speci men Type: BLOOD SPECIMENOrdering Facility: [facility] Address: [address] [place] [address] Result Comment: The [place] [employer] (ADA) provides guidance for cutoff values for fasting glucose and random glucose. The ADA defines fasting as no caloric intake for at least 8 hours. Fasting plasma glucose results between 100 to 125 mg/dL indicate increased risk for diabetes (prediabetes).Fasting plasma glucose results greater than or equal to 126 mg/dL meet the criteria for diagnosis of diabetes. In the absence of unequivocal hyperglycemia, results should be confirmed by repeat testing. In a patient with classic symptoms of hyperglycemia or hyperglycemic crisis, random plasma glucose results greater than or equal to 200 mg/dL meet the criteria for diagnosis of diabetes.Reference: Standards of Medical Care in Diabetes 2016, [place] [employer]. Diabetes Care. 2016.39(Suppl 1). Performed By: #### 1 9123-9, 20424-6, 2776-08 ####[facility]CLIA [id number] [place] [address] [place] Potassium [Moles/Vol] 4.2 mmol/L Normal 3.7-5.[address] [facility] Comment on above: Order Comment: Speci men Type: BLOOD SPECIMENOrdering Facility: [facility] Address: [address] [place] [address] Performed By: #### 1 9123-9, 70112-7, 2776-08 ####[facility]CLIA [id number] [place] [address] [place] Protein [Mass/Vol] 5.2 g/dL Low 6.3-8.0 [facility] Comment on above: Order Comment: Speci men Type: BLOOD SPECIMENOrdering Facility: [facility] Address: [address] [place] [address] Performed By: #### 1 9123-9, 44899-4, 2777-1 ####[facility] [id number] [place] [address] [place] Sodium [Moles/Vol] 136 mmol/L Normal 136-144 [facility] Comment on above: Order Comment: Speci men Type: BLOOD SPECIMENOrdering Facility: [facility] Address: [address] [place] [address] Performed By: #### 1 9123-9, 98030-0, 2777-1 ####[facility] [id number] [place] [address] [place] Urea nitrogen [Mass/Vol] 23 mg/dL Normal 9-24 [facility] Comment on above: Order Comment: Speci men Type: BLOOD SPECIMENOrdering Facility: [facility] Address: [address] [place] [address] Performed By: #### 1 9123-9, 49683-8, 2777-1 ####[facility] [id number] [place] [address] [place] Albumin [Mass/Vol] 3.1 g/dL Low 3.9-4.9 [facility] Comment on above: Order Comment: Speci men Type: BLOOD SPECIMENOrdering Facility: [facility] Address: [address] [place] [address] Performed By: #### 2 4323-8, 30670-6, 2777-1, 85161-6 ####[facility] [id number] [place] [address] [place] ALP [Catalytic activity/Vol] 197 U/L High 38-113 [facility] Comment on above: Order Comment: Speci men Type: BLOOD SPECIMENOrdering Facility: [facility] Address: [address] [place] [address] Performed By: #### 2 4323-8, 79214-8, 2777-1, 55387-0 ####[facility]CLIA [id number] [place] [address] [place] ALT [Catalytic activity/Vol] 265 U/L High 10-54 [facility] Comment on above: Order Comment: Speci men Type: BLOOD SPECIMENOrdering Facility: [facility] Address: [address] [place] [address] Performed By: #### 2 4323-8, 34469-4, 2777-1, 32532-4 ####[facility]CLIA [id number] [place] [address] [place] Anion gap [Moles/Vol] 13 mmol/L Normal 8-[address] [facility] Comment on above: Order Comment: Speci men Type: BLOOD SPECIMENOrdering Facility: [facility] Address: [address] [place] [address] Performed By: #### 2 4323-8, 79017-9, 2777-1, 36286-8 ####[facility] [id number] [place] [address] [place] AST [Catalytic activity/Vol] 287 U/L High 14-40 [facility] Comment on above: Order Comment: Speci men Type: BLOOD SPECIMENOrdering Facility: [facility] Address: [address] [place] [address] Performed By: #### 2 4323-8, 92542-7, 2777-1, 84548-6 ####[facility]CLIA [id number] [place] [id number] [place] Bilirubin [Mass/Vol] 2.2 mg/dL High 0.2-1.3 [facility] Comment on above: Order Comment: Speci men Type: BLOOD SPECIMENOrdering Facility: [facility] Address: [address] [place] [address] Performed By: #### 2 4323-8, 12572-4, 2777-1, 92352-4 ####[facility]CL[facility] [id number] [address] [address] [place] Calcium [Mass/Vol] 7.9 mg/dL Low 8.5-10.2 [facility] Comment on above: Order Comment: Speci men Type: BLOOD SPECIMENOrdering Facility: [facility] Address: [address] [place] [address] Performed By: #### 2 4323-8, 84888-7, 2777-1, 07911-7 ####[facility] [id number] [place] [id number] [place] Chloride [Moles/Vol] 98 mmol/L Normal 98-107 [facility] Comment on above: Order Comment: Speci men Type: BLOOD SPECIMENOrdering Facility: [facility] Address: [address] [place] [address] Performed By: #### 2 4323-8, 82345-5, 2777-1, 23067-0 ####[facility] [id number] [place] [id number] [place] CO2 [Moles/Vol] 20 mmol/L Low 22-30 [facility] Comment on above: Order Comment: Speci men Type: BLOOD SPECIMENOrdering Facility: [facility] Address: [address] [place], [place] [address] Performed By: #### 2 4323-8, 27304-2, 2777-1, 74674-0 ####[facility] [id number] [place] [id number] [place] Creatinine [Mass/Vol] 1.53 mg/dL High 0.73-1.[address] [facility] Comment on above: Order Comment: Speci men Type: BLOOD SPECIMENOrdering Facility: [facility] Address: [address] [place] [address] Performed By: #### 2 4323-8, 74107-1, 2777-1, 59181-6 ####[facility] [id number] [place] [address] [place] Creatinine and Glomerular filtration rate.predicted panel (S/P/Bld) 46 mL/min/1.73m??? Low >=60 [facility] Comment on above: Order Comment: Elmo patterson Type: BLOOD SPECIMENOrdering Facility: [facility] Address: [address] [place] [address] Result Comment: Ruby mated Glomerular Filtration Rate (eGFR) is calculated using the 2020 CKD-EPI creatinine equation. This equation utilizes serum creatinine, sex, and age as parameters. The creatinine assay has traceable calibration to isotope dilution-mass spectrometry. Refer to KDIGO guidelines for clinical interpretation. In patients with unstable renal function, e.g. those with acute kidney injury, the eGFR may not accurately reflect actual GFR. Performed By: #### 2 4323-8, 03828-5, 2777-1, 08629-0 ####[facility] [id number] [place] [id number] [place] Glucose [Mass/Vol] 304 mg/dL High 74-99 [facility] Comment on above: Order Comment: Elmo patterson Type: BLOOD SPECIMENOrdering Facility: [facility] Address: [address] [place] [address] Result Comment: The [place] [employer] (ADA) provides guidance for cutoff values for fasting glucose and random glucose. The ADA defines fasting as no caloric intake for at least 8 hours. Fasting plasma glucose results between 100 to 125 mg/dL indicate increased risk for diabetes (prediabetes).Fasting plasma glucose results greater than or equal to 126 mg/dL meet the criteria for diagnosis of diabetes. In the absence of unequivocal hyperglycemia, results should be confirmed by repeat testing. In a patient with classic symptoms of hyperglycemia or hyperglycemic crisis, random plasma glucose results greater than or equal to 200 mg/dL meet the criteria for diagnosis of diabetes.Reference: Standards of Medical Care in Diabetes 2016, [place] [employer]. Diabetes Care. 2016.39(Suppl 1). Performed By: #### 2 4323-8, 60984-1, 2777-1, 26815-2 ####[facility]CL[facility] [id number] [address] [address] [place] Potassium [Moles/Vol] 4.4 mmol/L Normal 3.7-5.[address] [facility] Comment on above: Order Comment: Speci men Type: BLOOD SPECIMENOrdering Facility: [facility] Address: [address] [place] [address] Performed By: #### 2 4323-8, 43252-0, 2777-1, 42465-4 ####[facility] [id number] [place] [address] [place] Protein [Mass/Vol] 5.3 g/dL Low 6.3-8.0 [facility] Comment on above: Order Comment: Speci men Type: BLOOD SPECIMENOrdering Facility: [facility] Address: [address] [place] [address] Performed By: #### 2 4323-8, 71984-1, 2777-1, 19804-3 ####[facility] [id number] [place] [id number] [place] Sodium [Moles/Vol] 131 mmol/L Low 136-144 [facility] Comment on above: Order Comment: Speci men Type: BLOOD SPECIMENOrdering Facility: [facility] Address: [address] [place], [place] [address] Performed By: #### 2 4323-8, 64418-2, 2777-1, 45380-8 ####[facility] [id number] [place] [id number] [place] Urea nitrogen [Mass/Vol] 21 mg/dL Normal 9-24 [facility] Comment on above: Order Comment: Speci men Type: BLOOD SPECIMENOrdering Facility: [facility] Address: [address] [place] [address] Performed By: #### 2 4323-8, 26613-2, 2777-1, 37803-9 ####[facility]CL[facility] [id number] [place] [address] [place] ECG COMPLETEon 05-01-2024 ECG COMPLETE Normal [facility] Gas and Carbon monoxide pane l (BldV)on 05-01-2024 BASE DEFICIT, VENOUS -1 mmol/L Normal -2-0 [facility] Comment on above: Order Comment: Speci men Type: VENOUS BLOOD SPECIMENOrdering Facility: [facility] Address: [address] [place] [address] Performed By: #### 2 4344-4 ####[facility] [id number] [place] [address] [place] Body temperature 98.6 [degF] Normal [facility] Comment on above: Order Comment: Speci men Type: VENOUS BLOOD SPECIMENOrdering Facility: [facility] Address: [address] [place] [address] Performed By: #### 2 4344-4 ####[facility] [id number] [place] [address] [place] Calcium.ionized (Bld) [Mass/Vol] 1.13 mmol/L Normal 1.08-1.30 [facility] Comment on above: Order Comment: Speci men Type: VENOUS BLOOD SPECIMENOrdering Facility: [facility] Address: [address] [place] [address] Performed By: #### 2 4344-4 ####[facility] [id number] [place] [address] [place] Calcium.ionized adjusted to pH 7.4 (BldA) [Moles/Vol] 1.12 mmol/L Normal 1.08-1.30 [facility] Comment on above: Order Comment: Speci men Type: VENOUS BLOOD SPECIMENOrdering Facility: [facility] Address: [address] [place] [address] Performed By: #### 2 4344-4 ####[facility] [id number] [place] [address] [place] Carboxyhemoglobin (BldV) [Mass fraction] 1.1 % Normal 0.0-2.0 [facility] Comment on above: Order Comment: Speci men Type: VENOUS BLOOD SPECIMENOrdering Facility: [facility] Address: [address] [place] [address] Result Comment: Carb oxyhemoglobin Reference Range for Smokers: 2.0-8.0% Performed By: #### 2 4344-4 ####[facility] [id number] [place] [address] [place] CO2 (BldV) [Partial pressure] 41 mm[Hg] Low 42-55 [facility] Comment on above: Order Comment: Speci men Type: VENOUS BLOOD SPECIMENOrdering Facility: [facility] Address: [address] [place] [address] Performed By: #### 2 4344-4 ####[facility]CL[facility] [id number] [place] [address] [place] Glucose [Mass/Vol] 120 mg/dL High 60-105 [facility] Comment on above: Order Comment: Speci men Type: VENOUS BLOOD SPECIMENOrdering Facility: [facility] Address: [address] [place] [address] Performed By: #### 2 4344-4 ####[facility] LABCLIA [id number] [place] [address] [place] HCO3 (Bld) [Moles/Vol] 24 mmol/L Normal 24-28 [facility] Comment on above: Order Comment: Speci men Type: VENOUS BLOOD SPECIMENOrdering Facility: [facility] Address: [address] [place] [address] Performed By: #### 2 4344-4 ####[facility] LABCLIA [id number] [place] [address] [place] Hematocrit (Bld) [Volume fraction] 34.0 % Low 39.0-51.0 [facility] Comment on above: Order Comment: Speci men Type: VENOUS BLOOD SPECIMENOrdering Facility: [facility] Address: [address] [place] [address] Performed By: #### 2 4344-4 ####[facility] LABCLIA [id number] [place] [address] [place] Hemoglobin (Bld) [Mass/Vol] 11.0 g/dL Low 13.0-17.0 [facility] Comment on above: Order Comment: Speci men Type: VENOUS BLOOD SPECIMENOrdering Facility: [facility] Address: [address] [place] [address] Performed By: #### 2 4344-4 ####[facility] LABCLIA [id number] [place] [address] [place] Lactate [Moles/Vol] 1.6 mmol/L Normal 0.5-2.2 [facility] Comment on above: Order Comment: Speci men Type: VENOUS BLOOD SPECIMENOrdering Facility: [facility] Address: [address] [place] [address] Performed By: #### 2 4344-4 ####[facility] LABIA [id number] [place] [address] [place] LITERS 3 Liters/min Normal [facility] Comment on above: Order Comment: Speci men Type: VENOUS BLOOD SPECIMENOrdering Facility: [facility] Address: [address] [place] [address] Performed By: #### 2 4344-4 ####[facility] LABCLIA [id number] [place] [address] [place] Methemoglobin (Bld) [Mass fraction] 0.7 % Normal 0.0-1.5 [facility] Comment on above: Order Comment: Speci men Type: VENOUS BLOOD SPECIMENOrdering Facility: [facility] Address: [address] [id number] Performed By: #### 2 4344-4 ####[facility] LABCLIA [id number] [address] [address] [place] O2 THERAPY NC = Nasal Cannula Normal [facility] Comment on above: Order Comment: Speci men Type: VENOUS BLOOD SPECIMENOrdering Facility: [facility] Address: [address] [id number] Performed By: #### 2 4344-4 ####[facility] LABCLIA [id number] [place] [address] [place] Oxygen (BldV) [Partial pressure] 57 mm[Hg] High 35-45 [facility] Comment on above: Order Comment: Speci men Type: VENOUS BLOOD SPECIMENOrdering Facility: [facility] Address: [address] [place], [place] [address] Performed By: #### 2 4344-4 ####[facility] LABCLIA [id number] [place] [address] [place] Oxygen saturation in Venous blood 87 % High 60-85 [facility] Comment on above: Order Comment: Speci men Type: VENOUS BLOOD SPECIMENOrdering Facility: [facility] Address: [address] [id number] Performed By: #### 2 4344-4 ####[facility] LABCLIA [id number] [address] [address] [place] Oxyhemoglobin (BldV) [Mass fraction] 85 % Normal 60-85 [facility] Comment on above: Order Comment: Speci men Type: VENOUS BLOOD SPECIMENOrdering Facility: [facility] Address: [address] [id number] Performed By: #### 2 4344-4 ####[facility] LABCLIA [id number] [place] [address] [place] pH (BldV) 7.38 [pH] Normal 7.32-7.42 [facility] Comment on above: Order Comment: Speci men Type: VENOUS BLOOD SPECIMENOrdering Facility: [facility] Address: [address] [place] [address] Performed By: #### 2 4344-4 ####[facility] LABCLIA [id number] [place] [address] [place] Potassium [Moles/Vol] 4.1 mmol/L Normal 3.5-5.[address] [facility] Comment on above: Order Comment: Speci men Type: VENOUS BLOOD SPECIMENOrdering Facility: [facility] Address: [address] [place] [address] Performed By: #### 2 4344-4 ####[facility] LABCLIA [id number] [place] [address] [place] Sodium [Moles/Vol] 134 mmol/L Low 136-144 [facility] Comment on above: Order Comment: Speci men Type: VENOUS BLOOD SPECIMENOrdering Facility: [facility] Address: [address] [place] [address] Performed By: #### 2 4344-4 ####[facility] LABCLIA [id number] [place] [address] [place] BASE DEFICIT, VENOUS -3 mmol/L Low -2-0 [facility] Comment on above: Order Comment: Speci men Type: VENOUS BLOOD SPECIMENOrdering Facility: [facility] Address: [address] [place] [address] Performed By: #### 2 4344-4 ####[facility] LABCLIA [id number] [place] [address] [place] Body temperature 98.6 [degF] Normal [facility] Comment on above: Order Comment: Speci men Type: VENOUS BLOOD SPECIMENOrdering Facility: [facility] Address: [address] [place] [address] Performed By: #### 2 4344-4 ####[facility] LABIA [id number] [place] [address] [place] Calcium.ionized (Bld) [Mass/Vol] 1.10 mmol/L Normal 1.08-1.30 [facility] Comment on above: Order Comment: Speci men Type: VENOUS BLOOD SPECIMENOrdering Facility: [facility] Address: [address] [place] [address] Performed By: #### 2 4344-4 ####[facility] LABIA [id number] [place] [address] [place] Calcium.ionized adjusted to pH 7.4 (BldA) [Moles/Vol] 1.07 mmol/L Low 1.08-1.30 [facility] Comment on above: Order Comment: Speci men Type: VENOUS BLOOD SPECIMENOrdering Facility: [facility] Address: [address] [place] [address] Performed By: #### 2 4344-4 ####[facility] LABIA [id number] [place] [address] [place] Carboxyhemoglobin (BldV) [Mass fraction] 1.4 % Normal 0.0-2.0 [facility] Comment on above: Order Comment: Speci men Type: VENOUS BLOOD SPECIMENOrdering Facility: [facility] Address: [address] [place] [address] Result Comment: Carb oxyhemoglobin Reference Range for Smokers: 2.0-8.0% Performed By: #### 2 4344-4 ####[facility] [id number] [place] [address] [place] CO2 (BldV) [Partial pressure] 40 mm[Hg] Low 42-55 [facility] Comment on above: Order Comment: Speci men Type: VENOUS BLOOD SPECIMENOrdering Facility: [facility] Address: [address] [place] [address] Performed By: #### 2 4344-4 ####[facility] LABCLIA [id number] [place] [address] [place] COMMENTS Urgent Value: glu Normal [facility] Comment on above: Order Comment: Speci men Type: VENOUS BLOOD SPECIMENOrdering Facility: [facility] Address: [address] [id number] Performed By: #### 2 4344-4 ####[facility] LABCLIA [id number] [place] [address] [place] DATE/TIME NOTIFIED 1209984 73056 PM Normal [facility] Comment on above: Order Comment: Speci men Type: VENOUS BLOOD SPECIMENOrdering Facility: [facility] Address: [address] [phone] Performed By: #### 2 4344-4 ####[facility] LABCLIA [id number] [place] [address] [place] Glucose [Mass/Vol] 528 mg/dL High 60-105 [facility] Comment on above: Order Comment: Speci men Type: VENOUS BLOOD SPECIMENOrdering Facility: [facility] Address: [address] [id number] Performed By: #### 2 4344-4 ####[facility] LABCLIA [id number] [place] [address] [place] HCO3 (Bld) [Moles/Vol] 22 mmol/L Low 24-28 Cl [facility] Comment on above: Order Comment: Speci men Type: VENOUS BLOOD SPECIMENOrdering Facility: [facility] Address: [address] [phone] Performed By: #### 2 4344-4 ####[facility] LABCLIA [id number] [place] [id number] [place] Hematocrit (Bld) [Volume fraction] 32.0 % Low 39.0-51.0 [facility] Comment on above: Order Comment: Speci men Type: VENOUS BLOOD SPECIMENOrdering Facility: [facility] Address: [address] [place] [address] Performed By: #### 2 4344-4 ####[facility] LABCLIA [id number] [address] [address] [place] Hemoglobin (Bld) [Mass/Vol] 10.4 g/dL Low 13.0-17.0 [facility] Comment on above: Order Comment: Speci men Type: VENOUS BLOOD SPECIMENOrdering Facility: [facility] Address: [address] [place] [address] Performed By: #### 2 4344-4 ####[facility] LABCLIA [id number] [place] [address] [place] Lactate [Moles/Vol] 1.9 mmol/L Normal 0.5-2.2 [facility] Comment on above: Order Comment: Speci men Type: VENOUS BLOOD SPECIMENOrdering Facility: [facility] Address: [address] [place] [address] Performed By: #### 2 4344-4 ####[facility] LABCLIA [id number] [place] [address] [place] LITERS 3 Liters/min Normal [facility] Comment on above: Order Comment: Speci men Type: VENOUS BLOOD SPECIMENOrdering Facility: [facility] Address: [address] [place] [address] Performed By: #### 2 4344-4 ####[facility] LABCLIA [id number] [place] [address] [place] Methemoglobin (Bld) [Mass fraction] 0.7 % Normal 0.0-1.5 [facility] Comment on above: Order Comment: Speci men Type: VENOUS BLOOD SPECIMENOrdering Facility: [facility] Address: [address] [place] [address] Performed By: #### 2 4344-4 ####[facility] LABCLIA [id number] [address] [address] [place] NOTIFIED WHOM jeffery aguilar rn g6Jocelyn miller Normal [facility] Comment on above: Order Comment: Speci men Type: VENOUS BLOOD SPECIMENOrdering Facility: [facility] Address: [address] [place] [address] Performed By: #### 2 4344-4 ####[facility] LABCLIA [id number] [address] [address] [place] O2 THERAPY NC = Nasal Cannula Normal [facility] Comment on above: Order Comment: Speci men Type: VENOUS BLOOD SPECIMENOrdering Facility: [facility] Address: [address] [place], [place] [address] Performed By: #### 2 4344-4 ####[facility] LABCLIA [id number] [address] [address] [place] Oxygen (BldV) [Partial pressure] 51 mm[Hg] High 35-45 [facility] Comment on above: Order Comment: Speci men Type: VENOUS BLOOD SPECIMENOrdering Facility: [facility] Address: [address] [place], [place] [address] Performed By: #### 2 4344-4 ####[facility] LABCLIA [id number] [address] [address] [place] Oxygen saturation in Venous blood 82 % Normal 60-85 [facility] Comment on above: Order Comment: Speci men Type: VENOUS BLOOD SPECIMENOrdering Facility: [facility] Address: [address] [place] [address] Performed By: #### 2 4344-4 ####[facility] LABCLIA [id number] [address] [address] [place] Oxyhemoglobin (BldV) [Mass fraction] 80 % Normal 60-85 [facility] Comment on above: Order Comment: Speci men Type: VENOUS BLOOD SPECIMENOrdering Facility: [facility] Address: [address] [place] [address] Performed By: #### 2 4344-4 ####[facility] LABIA [id number] [address] [address] [place] pH (BldV) 7.36 [pH] Normal 7.32-7.42 [facility] Comment on above: Order Comment: Speci men Type: VENOUS BLOOD SPECIMENOrdering Facility: [facility] Address: [address] [place] [address] Performed By: #### 2 4344-4 ####[facility] LABIA [id number] [place] [address] [place] Potassium [Moles/Vol] 3.9 mmol/L Normal 3.5-5.[address] [facility] Comment on above: Order Comment: Speci men Type: VENOUS BLOOD SPECIMENOrdering Facility: [facility] Address: [address] [place] [address] Performed By: #### 2 4344-4 ####[facility]ITAL[facility] [id number] [place] [address] [place] Sodium [Moles/Vol] 124 mmol/L Low 136-144 [facility] Comment on above: Order Comment: Speci men Type: VENOUS BLOOD SPECIMENOrdering Facility: [facility] Address: [address] [place] [address] Performed By: #### 2 4344-4 ####[facility] LABIA [id number] [address] [id number] [place] HISTORY PHYSICALon HISTORY PHYSICAL Normal [facility] Magnesium SerPl-mCncon 05-01 Magnesium [Mass/Vol] 2.2 mg/dL Normal 1.7-2.3 [facility] Comment on above: Order Comment: Speci men Type: BLOOD SPECIMENOrdering Facility: [facility] Address: [address] [place] [address] Performed By: #### 1 9123-9, 37223-8, 2777-1 ####[facility] LABCLIA [id number] [place] [address] [place] Magnesium [Mass/Vol] 2.2 mg/dL Normal 1.7-2.3 [facility] Comment on above: Order Comment: Speci men Type: BLOOD SPECIMENOrdering Facility: [facility] Address: [address] [place] [address] Performed By: #### 2 4323-8, 61835-9, 2777-1, 16024-5 ####[facility] LABCLIA [id number] [place] [address] [place] NT-proBNP [facility] 05-01 Natriuretic peptide.B prohormone N-Terminal [Mass/Vol] 2535 pg/mL High <450 [facility] Comment on above: Order Comment: Speci men Type: BLOOD SPECIMENOrdering Facility: [facility] Address: [address] [place] [address] Performed By: #### 2 4323-8, 99622-0, 2777-1, 12158-3 ####[facility] LABCLIA [id number] [place] [address] [place] bilirubin panel [Ma ss/Vol]on 05-01-2024 Bilirubin [Mass/Vol] 1.8 mg/dL High 0.2-1.3 [facility] Comment on above: Order Comment: Speci men Type: BLOOD SPECIMENOrdering Facility: [facility] Address: [address] [place] [address] Performed By: #### 5 0189-0 ####[facility] LABCLIA [id number] [place] [address] [place] Bilirubin.conjugated [Mass/Vol] 1.5 mg/dL High <0.2 [facility] Comment on above: Order Comment: Speci men Type: BLOOD SPECIMENOrdering Facility: [facility] Address: [address] [place] [address] Performed By: #### 5 0189-0 ####[facility] LABCLIA [id number] [place] [address] [place] Bilirubin.indirect [Mass/Vol] 0.3 mg/dL Normal <1.4 [facility] Comment on above: Order Comment: Speci men Type: BLOOD SPECIMENOrdering Facility: [facility] Address: [address] [place] [address] Performed By: #### 5 0189-0 ####[facility] LABIA [id number] [place] [address] [place] Phosphate SerPl-mCncon 05-01 Phosphate [Mass/Vol] 3.9 mg/dL Normal 2.7-4.8 [facility] Comment on above: Order Comment: Speci men Type: BLOOD SPECIMENOrdering Facility: [facility] Address: [address] [place] [address] Performed By: #### 1 9123-9, 80997-9, 2777-1 ####[facility] LABIA [id number] [place] [address] [place] Phosphate [Mass/Vol] 3.8 mg/dL Normal 2.7-4.8 [facility] Comment on above: Order Comment: Speci men Type: BLOOD SPECIMENOrdering Facility: [facility] Address: [address] [place] [address] Performed By: #### 2 4323-8, 18712-2, 2777-1, 44205-1 ####[facility] LABCLIA [id number] [place] [address] [place] STAPHYLOCOCCUS AUREUS AND MR SA SCREEN, PCR, NASALon 05-01-2024 S. aureus and MRSA panel SHERRY+probe (Nose) Not detected Normal Not Detected [facility] Comment on above: Order Comment: Speci men Type: SWABOrdering Facility: [facility] Address: [address] [place] [address] Performed By: #### S APCR ####[facility] LABCLIA [id number] [address] STATES OF [facility] TYPE + SCREENon 05-01-2024 ABO A Normal [facility] Comment on above: Order Comment: Speci men Type: BLOOD SPECIMENOrdering Facility: [facility] Address: [address] [place] [address] Performed By: #### T SCR ####[facility] BLOOD BANKIA [id number] [place] [address] [place] Rh Nom (Bld) Positive Normal [facility] Comment on above: Order Comment: Speci men Type: BLOOD SPECIMENOrdering Facility: [facility] Address: [address] [place] [address] Performed By: #### T SCR ####[facility] BLOOD BANKCLIA [id number] [place] [address] [place] TYPE AND SCREEN EXPIRATION 05/04/2024 23:59 Normal [facility] Comment on above: Order Comment: Speci men Type: BLOOD SPECIMENOrdering Facility: [facility] Address: [address] [place] [address] Performed By: #### T SCR ####[facility] BLOOD BANKCLIA [id number] [place] [address] [place] URINALYSIS, REFLEX MICROSCOP ICon 05-01-2024 Bacteria LM.HPF (Urine sed) [#/Area] Negative Normal Negative [facility] Comment on above: Order Comment: Speci men Type: URINE SPECIMENOrdering Facility: [facility] Address: [address] [place] [address] Performed By: #### L [id number] ####[facility] LABCLIA [id number] [address] [place] Bilirubin Ql (U) 1+ Abnormal Negative [facility] Comment on above: Order Comment: Speci men Type: URINE SPECIMENOrdering Facility: [facility] Address: [address] [place] [address] Result Comment: Sugg est correlation with clinical findings and serum bilirubin if clinically indicated. Performed By: #### L [id number] ####[facility] LABCLIA [id number] [place] [address] [place] Clarity (Unsp spec) Turbid Abnormal Clear [facility] Comment on above: Order Comment: Speci men Type: URINE SPECIMENOrdering Facility: [facility] Address: [address] [place] [address] Performed By: #### L [id number] ####[facility] LABCLIA [id number] [address] [place] Color (U) [place] Abnormal Yellow [facility] Comment on above: Order Comment: Speci men Type: URINE SPECIMENOrdering Facility: [facility] Address: [address] [place] [address] Performed By: #### L [id number] ####[facility] LABCLIA [id number] [place] [address] [place] Epithelial cells LM.HPF (Urine sed) [#/Area] Few Normal [facility] Comment on above: Order Comment: Speci men Type: URINE SPECIMENOrdering Facility: [facility] Address: [address] [place] [address] Performed By: #### L [id number] ####[facility] LABCLIA [id number] [place] [address] [place] Glucose Test strip (U) [Mass/Vol] 3+ Abnormal Negative [facility] Comment on above: Order Comment: Speci men Type: URINE SPECIMENOrdering Facility: [facility] Address: [address] [place] [address] Performed By: #### L [id number] ####[facility] LABCLIA [id number] [place] [address] [place] Hemoglobin Ql (U) 3+ Abnormal Negative [facility] Comment on above: Order Comment: Speci men Type: URINE SPECIMENOrdering Facility: [facility] Address: [address] [place] [address] Performed By: #### L [id number] ####[facility] LABCLIA [id number] [place] [address] [place] Hyaline casts (Urine sed) [#/Area] 1-3 /LPF Abnormal 0 /LPF [facility] Comment on above: Order Comment: Speci men Type: URINE SPECIMENOrdering Facility: [facility] Address: [address] [place] [address] Performed By: #### L [id number] ####[facility] LABCLIA [id number] [place] [address] [place] Ketones Ql (U) Negative Normal Negative [facility] Comment on above: Order Comment: Speci men Type: URINE SPECIMENOrdering Facility: [facility] Address: [address] [place] [address] Performed By: #### L [id number] ####[facility] LABCLIA [id number] [place] [address] [place] Leukocyte esterase Test strip Ql (U) 1+ Abnormal Negative [facility] Comment on above: Order Comment: Speci men Type: URINE SPECIMENOrdering Facility: [facility] Address: [address] [place] [address] Performed By: #### L [id number] ####[facility] LABCLIA [id number] [place] [address] [place] Nitrite Ql (U) Negative Normal Negative [facility] Comment on above: Order Comment: Speci men Type: URINE SPECIMENOrdering Facility: [facility] Address: [address] [place] [address] Performed By: #### L [id number] ####[facility] LABIA [id number] [place] [address] [place] pH (U) 5.0 [pH] Normal <8.5 [facility] Comment on above: Order Comment: Speci men Type: URINE SPECIMENOrdering Facility: [facility] Address: [address] [place] [address] Performed By: #### L [id number] ####[facility] LABIA [id number] [place] [address] [place] Protein (U) [Mass/Vol] 2+ Abnormal Negative Cl [facility] Comment on above: Order Comment: Speci men Type: URINE SPECIMENOrdering Facility: [facility] Address: [address] [place] [address] Performed By: #### L [id number] ####[facility] LABIA [id number] [place] [address] [place] RBC LM.HPF (Urine sed) [#/Area] /[HPF] Abnormal 0-2 /HPF [facility] Comment on above: Order Comment: Speci men Type: URINE SPECIMENOrdering Facility: [facility] Address: [address] [place] [address] Performed By: #### L [id number] ####[facility] LABIA [id number] [place] [address] [place] Specific gravity (U) [Rel density] >1.045 High 1.005-1.03 0 [facility] Comment on above: Order Comment: Speci men Type: URINE SPECIMENOrdering Facility: [facility] Address: [address] [place] [address] Performed By: #### L [id number] ####[facility] LABIA [id number] [place] [address] [place] Urobilinogen Ql (U) 1.0 EU/dL Normal 0.2-1.0 EU/dL [facility] Comment on above: Order Comment: Speci men Type: URINE SPECIMENOrdering Facility: [facility] Address: [address] [place] [address] Performed By: #### L [id number] ####[facility] LABCLIA [id number] [place] [address] [place] WBC LM.HPF (Urine sed) [#/Area] /[HPF] Abnormal 0-5 /HPF [facility] Comment on above: Order Comment: Speci men Type: URINE SPECIMENOrdering Facility: [facility] Address: [address] [place] [address] Performed By: #### L [id number] ####[facility] LABCLIA [id number] [place] [address] [place] XR ABDOMEN 1V SUPINEon 05-01 XR ABDOMEN 1V SUPINE Normal [facility] XR CHEST 1V FRONTAL PORTon 0 05-01-2024 XR CHEST 1V FRONTAL PORT Normal [facility] CNPNon 04-26-2024 CNPN Telephone (AVXRPR) -- SHAWNA HERNANDES ([id number]) 1945 M Date Time Provider Department 04/26/24 MICHAEL DEL TORO AVXRPR During your visit today, we recorded the following information about you: Michael Del Toro, ALIS 04/26/2024 11:17 AM Signed You are scheduled for a Biliary Tube Change, On 05/02/2024. You are to arrive at 10:30 am and Report to [facility] Radiology Outpatient Desk [id number]: You can expect to be here for 2-4 hours. Diet: Do not eat any solid food after MIDNIGHT the day of/night before your procedure. You may drink clear liquids until 9:30 a.m., which means black coffee, apple juice, black tea, or water only. Medications: Ok to take your cardiac, blood pressure, anti-seizure, and chronic pain medications with a sip of water, please take prior to arrival. Bring your current medication list. RADIOLOGY RECOMMENDS THESE MEDICATION RESTRICTIONS: Are you taking any of following medications? Plavix and Jardiance. IF ok with your Prescribing Provider: You do not need to stop Plavix prior to this procedure. Stop Jardiance, oral hypoglycemic, the day of this procedure Labs: Lab-work needs to be drawn? No. Family Resource Coordinator/Transportation: How will you be arriving for your procedure? Private car. You will need a responsible adult to accompany you to and from the procedure. Your hazmat tanker driver is required to stay with you until you are taken into the procedure room. If you have any further questions, please call [phone]. Allergies As of Date: 04/26/2024 (No Known Allergies) Date Reviewed: 03/30/2024 Reviewed by: Kierra Dow, RN - Fully Assessed Prescriptions as of 04/26/2024 - acetaminophen (TYLENOL) 500 mg tablet Take 2 tablets by mouth every 8 hours as needed for pain. - calcium carbonate (TUMS) 500 mg chew Take 2 tablets by mouth two times a day as needed. - insulin lispro 100 unit/mL injection Inject 0-5 Units subcutaneously with meals and at bedtime. - ipratropium-albuterol (DUONEB) 0.5 mg-3 mg(2.5 mg base)/3 mL nebu Inhale 3 mL as instructed every 4 hours as needed for wheezing/shortness of breath. - melatonin 1 mg tablet Take 1 tablet by mouth daily at bedtime. - ondansetron orally disintegrating (ZOFRAN ODT) 4 mg disintegrating tablet Take 1-2 tablets by mouth every 8 hours as needed for nausea/vomiting. - bumetanide (BUMEX) 0.5 mg tablet Take 1 tablet by mouth once daily. - sacubitril-valsartan (ENTRESTO) 49-51 mg tablet Take 0.5 tablets by mouth two times a day. - spironolactone (ALDACTONE) 25 mg tablet Take 0.5 tablets by mouth once daily. - amiodarone (PACERONE) 200 mg tablet Take 200 mg by mouth once daily. - aspirin 81 mg chewable tablet Take 81 mg by mouth once daily. - atorvastatin (LIPITOR) 80 mg tablet Take 80 mg by mouth once daily. - carvedilol (COREG) 12.5 mg tablet Take 12.5 mg by mouth two times a day with meals. - clopidogrel (PLAVIX) 75 mg tablet Take 75 mg by mouth once daily. - empagliflozin (JARDIANCE) 10 mg tablet Take 10 mg by mouth daily with breakfast. - levothyroxine (SYNTHROID) 50 mcg tablet Take 50 mcg by mouth daily before breakfast. - mexiletine (MEXITIL) 150 mg capsule Take 150 mg by mouth three times a day. - pantoprazole DR (PROTONIX) 40 mg tablet Take 40 mg by mouth two times a day. Problem List As Of Date 04/26/2024 Noted Resolved Cholecystitis [K81.9] 03/20/2024 HTN (hypertension) [I10] 03/20/2024 BPH (benign prostatic hyperplasia) [N40.0] 03/20/2024 A-fib (HCC) [I48.91] 03/20/2024 CHF (congestive heart failure) (HCC) [I50.9] 03/20/2024 ICD (implantable cardioverter-defibrillator ) in*03/20/2024 COPD (chronic obstructive pulmonary disease) (H*03/20/2024 Stage 3b chronic kidney disease (CKD) (HCC) [N1*03/20/2024 HLD (hyperlipidemia) [E78.5] 03/20/2024 Obesity, Class I, BMI 30-34.9 [E66.9] 03/21/2024 03/31/2024 Obesity, Class II, BMI 35-39.9 [E66.9] 03/22/2024 Chronic systolic heart failure (HCC) [I50.22] 03/22/2024 Alteration in self-care ability [R68.89] 03/23/2024 Impaired mobility [Z74.09] 03/23/2024 At risk for falls [Z91.81] 03/23/2024 Encounter Status:Closed by MICHAEL DEL [facility]OR[facility] CNPNon 04-08-2024 CNPN Normal [facility] CASE MANAGEMon 03-31-2024 CASE MANAGEM Normal [facility] CBC W Auto Differential pane l (Bld)on 03-31-2024 Basophils (Bld) [#/Vol] 0.05 10*3/uL Normal <0.11 [facility] Comment on above: Order Comment: Speci men Type: BLOOD SPECIMENOrdering Facility: [facility] Address: [address] [place] [address] Performed By: #### 5 7021-8 ####[facility] LABCLIA [id number] [place] [address] [place] Basophils/100 WBC (Bld) 0.7 % Normal [facility] Comment on above: Order Comment: Speci men Type: BLOOD SPECIMENOrdering Facility: [facility] Address: [address] [place] [address] Performed By: #### 5 7021-8 ####[facility] LABCLIA [id number] [place] [address] [place] Differential cell count method Nom (Bld) Auto Normal [facility] Comment on above: Order Comment: Speci men Type: BLOOD SPECIMENOrdering Facility: [facility] Address: [address] [place] [address] Performed By: #### 5 7021-8 ####[facility] LABCLIA [id number] [place] [address] [place] Eosinophils (Bld) [#/Vol] 0.21 10*3/uL Normal <0.46 [facility] Comment on above: Order Comment: Speci men Type: BLOOD SPECIMENOrdering Facility: [facility] Address: [address] [place] [address] Performed By: #### 5 7021-8 ####[facility] LABCLIA [id number] [place] [address] [place] Eosinophils/100 WBC (Bld) 3.0 % Normal [facility] Comment on above: Order Comment: Speci men Type: BLOOD SPECIMENOrdering Facility: [facility] Address: [address] [place] [address] Performed By: #### 5 7021-8 ####[facility] LABCLIA [id number] [place] [address] [place] Erythrocyte distribution width (RBC) [Ratio] 14.1 % Normal 11.5-15.0 [facility] Comment on above: Order Comment: Speci men Type: BLOOD SPECIMENOrdering Facility: [facility] Address: [address] [place] [address] Performed By: #### 5 7021-8 ####[facility] LABCLIA [id number] [place] [address] [place] Hematocrit (Bld) [Volume fraction] 31.9 % Low 39.0-51.0 [facility] Comment on above: Order Comment: Speci men Type: BLOOD SPECIMENOrdering Facility: [facility] Address: [address] [place] [address] Performed By: #### 5 7021-8 ####[facility] LABCLIA [id number] [place] [address] [place] Hemoglobin (Bld) [Mass/Vol] 10.4 g/dL Low 13.0-17.0 [facility] Comment on above: Order Comment: Speci men Type: BLOOD SPECIMENOrdering Facility: [facility] Address: [address] [place] [address] Performed By: #### 5 7021-8 ####[facility] LABCLIA [id number] [place] [address] [place] Immature granulocytes (Bld) [#/Vol] 0.08 10*3/uL Normal <0.10 [facility] Comment on above: Order Comment: Speci men Type: BLOOD SPECIMENOrdering Facility: [facility] Address: [address] [place] [address] Performed By: #### 5 7021-8 ####[facility] LABCLIA [id number] [place] [address] [place] Immature granulocytes/100 WBC (Bld) 1.2 % Normal [facility] Comment on above: Order Comment: Speci men Type: BLOOD SPECIMENOrdering Facility: [facility] Address: [address] [place] [address] Performed By: #### 5 7021-8 ####[facility] LABCLIA [id number] [place] [address] [place] Lymphocytes (Bld) [#/Vol] 0.99 10*3/uL Low 1.00-4.00 [facility] Comment on above: Order Comment: Speci men Type: BLOOD SPECIMENOrdering Facility: [facility] Address: [address] [place] [address] Performed By: #### 5 7021-8 ####[facility] LABCLIA [id number] [place] [address] [place] Lymphocytes/100 WBC (Bld) 14.3 % Normal [facility] Comment on above: Order Comment: Speci men Type: BLOOD SPECIMENOrdering Facility: [facility] Address: [address] [place] [address] Performed By: #### 5 7021-8 ####[facility] LABCLIA [id number] [place] [address] [place] MCH (RBC) [Entitic mass] 33.5 pg Normal 26.0-34.0 [facility] Comment on above: Order Comment: Speci men Type: BLOOD SPECIMENOrdering Facility: [facility] Address: [address] [place] [address] Performed By: #### 5 7021-8 ####[facility] LABCLIA [id number] [place] [address] [place] MCHC (RBC) [Mass/Vol] 32.6 g/dL Normal 30.5-36.[address] [facility] Comment on above: Order Comment: Speci men Type: BLOOD SPECIMENOrdering Facility: [facility] Address: [address] [place] [address] Performed By: #### 5 7021-8 ####[facility] LABIA [id number] [place] [address] [place] MCV (RBC) [Entitic vol] 102.9 fL High 80.0-100.0 [facility] Comment on above: Order Comment: Speci men Type: BLOOD SPECIMENOrdering Facility: [facility] Address: [address] [place] [address] Performed By: #### 5 7021-8 ####[facility] LABIA [id number] [place] [address] [place] Monocytes (Bld) [#/Vol] 0.79 10*3/uL Normal <0.87 [facility] Comment on above: Order Comment: Speci men Type: BLOOD SPECIMENOrdering Facility: [facility] Address: [address] [place] [address] Performed By: #### 5 7021-8 ####[facility] LABCLIA [id number] [place] [address] [place] Monocytes/100 WBC (Bld) 11.4 % Normal [facility] Comment on above: Order Comment: Speci men Type: BLOOD SPECIMENOrdering Facility: [facility] Address: [address] [place] [address] Performed By: #### 5 7021-8 ####[facility] LABCLIA [id number] [place] [address] [place] Neutrophils (Bld) [#/Vol] 4.78 10*3/uL Normal 1.45-7.50 [facility] Comment on above: Order Comment: Speci men Type: BLOOD SPECIMENOrdering Facility: [facility] Address: [address] [place] [address] Performed By: #### 5 7021-8 ####[facility] LABCLIA [id number] [place] [address] [place] Neutrophils/100 WBC (Bld) 69.4 % Normal [facility] Comment on above: Order Comment: Speci men Type: BLOOD SPECIMENOrdering Facility: [facility] Address: [address] [place] [address] Performed By: #### 5 7021-8 ####[facility] LABCLIA [id number] [place] [address] [place] Nucleated RBC (Bld) [#/Vol] 10*3/uL Normal <0.01 [facility] Comment on above: Order Comment: Speci men Type: BLOOD SPECIMENOrdering Facility: [facility] Address: [address] [place] [address] Performed By: #### 5 7021-8 ####[facility] LABCLIA [id number] [place] [address] [place] Nucleated RBC/100 WBC (Bld) [Ratio] 0.0 /100 WBC Normal [facility] Comment on above: Order Comment: Speci men Type: BLOOD SPECIMENOrdering Facility: [facility] Address: [address] [place] [address] Performed By: #### 5 7021-8 ####[facility] LABCLIA [id number] [place] [address] [place] Platelet mean volume (Bld) [Entitic vol] 10.3 fL Normal 9.0-12.7 [facility] Comment on above: Order Comment: Speci men Type: BLOOD SPECIMENOrdering Facility: [facility] Address: [address] [place] [address] Performed By: #### 5 7021-8 ####[facility] LABCLIA [id number] [place] [address] [place] Platelets (Bld) [#/Vol] 399 10*3/uL Normal 150-400 [facility] Comment on above: Order Comment: Speci men Type: BLOOD SPECIMENOrdering Facility: [facility] Address: [address] [place] [address] Performed By: #### 5 7021-8 ####[facility] LABCLIA [id number] [place] [address] [place] RBC (Bld) [#/Vol] 3.10 10*6/uL Low 4.20-6.00 [facility] Comment on above: Order Comment: Speci men Type: BLOOD SPECIMENOrdering Facility: [facility] Address: [address] [place] [address] Performed By: #### 5 7021-8 ####[facility] LABCLIA [id number] [place] [address] [place] WBC (Bld) [#/Vol] 6.90 10*3/uL Normal 3.70-11.00 [facility] Comment on above: Order Comment: Speci men Type: BLOOD SPECIMENOrdering Facility: [facility] Address: [address] [place] [address] Performed By: #### 5 7021-8 ####[facility] LABCLIA [id number] [place] [address] [place] CNDSon 03-31-2024 CNDS Normal [facility] Comprehensive metabolic 2000 panelon 03-31-2024 Albumin [Mass/Vol] 2.9 g/dL Low 3.9-4.9 [facility] Comment on above: Order Comment: Speci men Type: BLOOD SPECIMENOrdering Facility: [facility] Address: [address] [id number] Performed By: #### 2 4323-8 ####[facility] LABCLIA [id number] [place] [address] [place] ALP [Catalytic activity/Vol] 64 U/L Normal 38-113 [facility] Comment on above: Order Comment: Speci men Type: BLOOD SPECIMENOrdering Facility: [facility] Address: [address] [place] [address] Performed By: #### 2 4323-8 ####[facility] LABCLIA [id number] [place] [address] [place] ALT [Catalytic activity/Vol] 52 U/L Normal 10-54 [facility] Comment on above: Order Comment: Speci men Type: BLOOD SPECIMENOrdering Facility: [facility] Address: [address] [place] [address] Performed By: #### 2 4323-8 ####[facility] LABCLIA [id number] [place] [address] [place] Anion gap [Moles/Vol] 8 mmol/L Normal 8-[address] [facility] Comment on above: Order Comment: Speci men Type: BLOOD SPECIMENOrdering Facility: [facility] Address: [address] [place] [address] Performed By: #### 2 4323-8 ####[facility] LABCLIA [id number] [facility] [place] [id number] [place] AST [Catalytic activity/Vol] 40 U/L Normal 14-40 [facility] Comment on above: Order Comment: Speci men Type: BLOOD SPECIMENOrdering Facility: [facility] Address: [address] [place] [address] Performed By: #### 2 4323-8 ####[facility] LABCLIA [id number] [place] [address] [place] Bilirubin [Mass/Vol] 0.2 mg/dL Normal 0.2-1.3 [facility] Comment on above: Order Comment: Speci men Type: BLOOD SPECIMENOrdering Facility: [facility] Address: [address] [place] [address] Performed By: #### 2 4323-8 ####[facility] LABCLIA [id number] [place] [address] [place] Calcium [Mass/Vol] 8.4 mg/dL Low 8.5-10.2 [facility] Comment on above: Order Comment: Speci men Type: BLOOD SPECIMENOrdering Facility: [facility] Address: [address] [place] [address] Performed By: #### 2 4323-8 ####[facility] LABCLIA [id number] [place] [address] [place] Chloride [Moles/Vol] 107 mmol/L Normal 98-107 [facility] Comment on above: Order Comment: Speci men Type: BLOOD SPECIMENOrdering Facility: [facility] Address: [address] [place] [address] Performed By: #### 2 4323-8 ####[facility] LABCLIA [id number] [place] [address] [place] CO2 [Moles/Vol] 25 mmol/L Normal 22-30 [facility] Comment on above: Order Comment: Speci men Type: BLOOD SPECIMENOrdering Facility: [facility] Address: [address] [place] [address] Performed By: #### 2 4323-8 ####[facility] LABCLIA [id number] [place] [address] [place] Creatinine [Mass/Vol] 1.26 mg/dL High 0.73-1.[address] [facility] Comment on above: Order Comment: Speci men Type: BLOOD SPECIMENOrdering Facility: [facility] Address: [address] [place] [address] Performed By: #### 2 4323-8 ####[facility] LABIA [id number] [place] [address] [place] Creatinine and Glomerular filtration rate.predicted panel (S/P/Bld) 58 mL/min/1.73m??? Low >=60 [facility] Comment on above: Order Comment: Elmo patterson Type: BLOOD SPECIMENOrdering Facility: [facility] Address: [address] [place] [address] Result Comment: Ruby mated Glomerular Filtration Rate (eGFR) is calculated using the 2020 CKD-EPI creatinine equation. This equation utilizes serum creatinine, sex, and age as parameters. The creatinine assay has traceable calibration to isotope dilution-mass spectrometry. Refer to KDIGO guidelines for clinical interpretation. In patients with unstable renal function, e.g. those with acute kidney injury, the eGFR may not accurately reflect actual GFR. Performed By: #### 2 4323-8 ####[facility] LABIA [id number] [place] [address] [place] Glucose [Mass/Vol] 98 mg/dL Normal 74-99 [facility] Comment on above: Order Comment: Elmo patterson Type: BLOOD SPECIMENOrdering Facility: [facility] Address: [address] [place] [address] Result Comment: The [place] [employer] (ADA) provides guidance for cutoff values for fasting glucose and random glucose. The ADA defines fasting as no caloric intake for at least 8 hours. Fasting plasma glucose results between 100 to 125 mg/dL indicate increased risk for diabetes (prediabetes).Fasting plasma glucose results greater than or equal to 126 mg/dL meet the criteria for diagnosis of diabetes. In the absence of unequivocal hyperglycemia, results should be confirmed by repeat testing. In a patient with classic symptoms of hyperglycemia or hyperglycemic crisis, random plasma glucose results greater than or equal to 200 mg/dL meet the criteria for diagnosis of diabetes.Reference: Standards of Medical Care in Diabetes 2016, [place] [employer]. Diabetes Care. 2016.39(Suppl 1). Performed By: #### 2 4323-8 ####[facility] LABCLIA [id number] [place] [address] [place] Potassium [Moles/Vol] 4.0 mmol/L Normal 3.7-5.[address] [facility] Comment on above: Order Comment: Speci men Type: BLOOD SPECIMENOrdering Facility: [facility] Address: [address] [place] [address] Performed By: #### 2 4323-8 ####[facility] LABCLIA [id number] [place] [address] [place] Protein [Mass/Vol] 5.4 g/dL Low 6.3-8.0 [facility] Comment on above: Order Comment: Speci men Type: BLOOD SPECIMENOrdering Facility: [facility] Address: [address] [place] [address] Performed By: #### 2 4323-8 ####[facility] LABIA [id number] [place] [address] [place] Sodium [Moles/Vol] 140 mmol/L Normal 136-144 [facility] Comment on above: Order Comment: Speci men Type: BLOOD SPECIMENOrdering Facility: [facility] Address: [address] [place] [address] Performed By: #### 2 4323-8 ####[facility] LABCLIA [id number] [place] [address] [place] Urea nitrogen [Mass/Vol] 14 mg/dL Normal 9-24 [facility] Comment on above: Order Comment: Speci men Type: BLOOD SPECIMENOrdering Facility: [facility] Address: [address] [place] [address] Performed By: #### 2 4323-8 ####[facility] LABIA [id number] [place] [address] [place] Magnesium SerPl-mCncon 03-31 Magnesium [Mass/Vol] 2.2 mg/dL Normal 1.7-2.3 [facility] Comment on above: Order Comment: Speci men Type: BLOOD SPECIMENOrdering Facility: [facility] Address: [address] [place] [address] Performed By: #### 1 9123-9, 2777-1 ####[facility] LABCLIA [id number] [place] [address] [place] Phosphate SerPl-mCncon 03-31 Phosphate [Mass/Vol] 3.5 mg/dL Normal 2.7-4.8 [facility] Comment on above: Order Comment: Speci men Type: BLOOD SPECIMENOrdering Facility: [facility] Address: [address] [place] [address] Performed By: #### 1 9123-9, 2777-1 ####[facility] LABIA [id number] [place] [address] [place] THERAPY NTon 03-31-2024 THERAPY NT Normal [facility] CASE MANAGEMon 03-30-2024 CASE MANAGEM Normal [facility] CASE MANAGEM Normal [facility] CBC W Auto Differential pane l (Bld)on 03-30-2024 Basophils (Bld) [#/Vol] 0.04 10*3/uL Normal <0.11 [facility] Comment on above: Order Comment: Speci men Type: BLOOD SPECIMENOrdering Facility: [facility] Address: [address] [place] [address] Performed By: #### 5 7021-8 ####[facility] LABCLIA [id number] [place] [address] [place] Basophils/100 WBC (Bld) 0.6 % Normal [facility] Comment on above: Order Comment: Speci men Type: BLOOD SPECIMENOrdering Facility: [facility] Address: [address] [place] [address] Performed By: #### 5 7021-8 ####[facility] LABCLIA [id number] [place] [address] [place] Differential cell count method Nom (Bld) Auto Normal [facility] Comment on above: Order Comment: Speci men Type: BLOOD SPECIMENOrdering Facility: [facility] Address: [address] [place] [address] Performed By: #### 5 7021-8 ####[facility] LABCLIA [id number] [place] [address] [place] Eosinophils (Bld) [#/Vol] 0.18 10*3/uL Normal <0.46 [facility] Comment on above: Order Comment: Speci men Type: BLOOD SPECIMENOrdering Facility: [facility] Address: [address] [place] [address] Performed By: #### 5 7021-8 ####[facility] LABCLIA [id number] [place] [address] [place] Eosinophils/100 WBC (Bld) 2.8 % Normal [facility] Comment on above: Order Comment: Speci men Type: BLOOD SPECIMENOrdering Facility: [facility] Address: [address] [place] [address] Performed By: #### 5 7021-8 ####[facility] LABIA [id number] [place] [address] [place] Erythrocyte distribution width (RBC) [Ratio] 13.9 % Normal 11.5-15.0 [facility] Comment on above: Order Comment: Speci men Type: BLOOD SPECIMENOrdering Facility: [facility] Address: [address] [place] [address] Performed By: #### 5 7021-8 ####[facility] LABCLIA [id number] [place] [address] [place] Hematocrit (Bld) [Volume fraction] 31.8 % Low 39.0-51.0 [facility] Comment on above: Order Comment: Speci men Type: BLOOD SPECIMENOrdering Facility: [facility] Address: [address] [place] [address] Performed By: #### 5 7021-8 ####[facility] LABCLIA [id number] [place] [address] [place] Hemoglobin (Bld) [Mass/Vol] 10.5 g/dL Low 13.0-17.0 [facility] Comment on above: Order Comment: Speci men Type: BLOOD SPECIMENOrdering Facility: [facility] Address: [address] [place] [address] Performed By: #### 5 7021-8 ####[facility] LABIA [id number] [place] [address] [place] Immature granulocytes (Bld) [#/Vol] 0.08 10*3/uL Normal <0.10 [facility] Comment on above: Order Comment: Speci men Type: BLOOD SPECIMENOrdering Facility: [facility] Address: [address] [place] [address] Performed By: #### 5 7021-8 ####[facility] LABIA [id number] [place] [address] [place] Immature granulocytes/100 WBC (Bld) 1.2 % Normal [facility] Comment on above: Order Comment: Speci men Type: BLOOD SPECIMENOrdering Facility: [facility] Address: [address] [place] [address] Performed By: #### 5 7021-8 ####[facility] LABIA [id number] [place] [address] [place] Lymphocytes (Bld) [#/Vol] 0.87 10*3/uL Low 1.00-4.00 [facility] Comment on above: Order Comment: Speci men Type: BLOOD SPECIMENOrdering Facility: [facility] Address: [address] [place] [address] Performed By: #### 5 7021-8 ####[facility] LABCLIA [id number] [place] [address] [place] Lymphocytes/100 WBC (Bld) 13.6 % Normal [facility] Comment on above: Order Comment: Speci men Type: BLOOD SPECIMENOrdering Facility: [facility] Address: [address] [place] [address] Performed By: #### 5 7021-8 ####[facility] LABIA [id number] [place] [address] [place] MCH (RBC) [Entitic mass] 33.1 pg Normal 26.0-34.0 [facility] Comment on above: Order Comment: Speci men Type: BLOOD SPECIMENOrdering Facility: [facility] Address: [address] [place] [address] Performed By: #### 5 7021-8 ####[facility] [id number] [place] [address] [place] MCHC (RBC) [Mass/Vol] 33.0 g/dL Normal 30.5-36.[address] [facility] Comment on above: Order Comment: Speci men Type: BLOOD SPECIMENOrdering Facility: [facility] Address: [address] [place] [address] Performed By: #### 5 7021-8 ####[facility] LABIA [id number] [place] [address] [place] MCV (RBC) [Entitic vol] 100.3 fL High 80.0-100.0 [facility] Comment on above: Order Comment: Speci men Type: BLOOD SPECIMENOrdering Facility: [facility] Address: [address] [place] [address] Performed By: #### 5 7021-8 ####[facility] [id number] [place] [address] [place] Monocytes (Bld) [#/Vol] 0.64 10*3/uL Normal <0.87 [facility] Comment on above: Order Comment: Speci men Type: BLOOD SPECIMENOrdering Facility: [facility] Address: [address] [place] [address] Performed By: #### 5 7021-8 ####[facility] LABCLIA [id number] [place] [address] [place] Monocytes/100 WBC (Bld) 10.0 % Normal [facility] Comment on above: Order Comment: Speci men Type: BLOOD SPECIMENOrdering Facility: [facility] Address: [address] [place] [address] Performed By: #### 5 7021-8 ####[facility] LABCLIA [id number] [place] [address] [place] Neutrophils (Bld) [#/Vol] 4.60 10*3/uL Normal 1.45-7.50 [facility] Comment on above: Order Comment: Speci men Type: BLOOD SPECIMENOrdering Facility: [facility] Address: [address] [place] [address] Performed By: #### 5 7021-8 ####[facility] LABCLIA [id number] [place] [address] [place] Neutrophils/100 WBC (Bld) 71.8 % Normal [facility] Comment on above: Order Comment: Speci men Type: BLOOD SPECIMENOrdering Facility: [facility] Address: [address] [place] [address] Performed By: #### 5 7021-8 ####[facility] LABCLIA [id number] [place] [address] [place] Nucleated RBC (Bld) [#/Vol] 10*3/uL Normal <0.01 [facility] Comment on above: Order Comment: Speci men Type: BLOOD SPECIMENOrdering Facility: [facility] Address: [address] [place] [address] Performed By: #### 5 7021-8 ####[facility] LABCLIA [id number] [place] [address] [place] Nucleated RBC/100 WBC (Bld) [Ratio] 0.0 /100 WBC Normal [facility] Comment on above: Order Comment: Speci men Type: BLOOD SPECIMENOrdering Facility: [facility] Address: [address] [place] [address] Performed By: #### 5 7021-8 ####[facility] [id number] [place] [address] [place] Platelet mean volume (Bld) [Entitic vol] 10.1 fL Normal 9.0-12.7 [facility] Comment on above: Order Comment: Speci men Type: BLOOD SPECIMENOrdering Facility: [facility] Address: [address] [place] [address] Performed By: #### 5 7021-8 ####[facility] [id number] [place] [address] [place] Platelets (Bld) [#/Vol] 383 10*3/uL Normal 150-400 [facility] Comment on above: Order Comment: Speci men Type: BLOOD SPECIMENOrdering Facility: [facility] Address: [address] [place] [address] Performed By: #### 5 7021-8 ####[facility] [id number] [place] [address] [place] RBC (Bld) [#/Vol] 3.17 10*6/uL Low 4.20-6.00 [facility] Comment on above: Order Comment: Speci men Type: BLOOD SPECIMENOrdering Facility: [facility] Address: [address] [place] [address] Performed By: #### 5 7021-8 ####[facility] [id number] [place] [address] [place] WBC (Bld) [#/Vol] 6.41 10*3/uL Normal 3.70-11.00 [facility] Comment on above: Order Comment: Speci men Type: BLOOD SPECIMENOrdering Facility: [facility] Address: [address] [place] [address] Performed By: #### 5 7021-8 ####[facility] LABCLIA [id number] [place] [address] [place] Comprehensive metabolic 2000 panelon 03-30-2024 Albumin [Mass/Vol] 2.8 g/dL Low 3.9-4.9 [facility] Comment on above: Order Comment: Speci men Type: BLOOD SPECIMENOrdering Facility: [facility] Address: [address] [place] [address] Performed By: #### 2 777-1, 46993-6, 69551-3 ####[facility] LABCLIA [id number] [place] [address] [place] ALP [Catalytic activity/Vol] 64 U/L Normal 38-113 [facility] Comment on above: Order Comment: Speci men Type: BLOOD SPECIMENOrdering Facility: [facility] Address: [address] [place] [address] Performed By: #### 2 777-1, 27155-0, 11950-9 ####[facility] LABCLIA [id number] [place] [address] [place] ALT [Catalytic activity/Vol] 59 U/L High 10-54 [facility] Comment on above: Order Comment: Speci men Type: BLOOD SPECIMENOrdering Facility: [facility] Address: [address] [place] [address] Performed By: #### 2 777-1, 49674-3, 98468-1 ####[facility] LABCLIA [id number] [place] [id number] [place] Anion gap [Moles/Vol] 10 mmol/L Normal 8-[address] [facility] Comment on above: Order Comment: Speci men Type: BLOOD SPECIMENOrdering Facility: [facility] Address: [address] [place] [address] Performed By: #### 2 777-1, , ####[facility] LABCLIA [id number] [place] [address] [place] AST [Catalytic activity/Vol] 50 U/L High 14-40 [facility] Comment on above: Order Comment: Speci men Type: BLOOD SPECIMENOrdering Facility: [facility] Address: [address] [place] [address] Performed By: #### 2 777-1, , ####[facility] LABCLIA [id number] [place] [address] [place] Bilirubin [Mass/Vol] 0.3 mg/dL Normal 0.2-1.3 [facility] Comment on above: Order Comment: Speci men Type: BLOOD SPECIMENOrdering Facility: [facility] Address: [address] [place] [address] Performed By: #### 2 777-1, , ####[facility] LABCLIA [id number] [place] [address] [place] Calcium [Mass/Vol] 8.0 mg/dL Low 8.5-10.2 [facility] Comment on above: Order Comment: Speci men Type: BLOOD SPECIMENOrdering Facility: [facility] Address: [address] [place] [address] Performed By: #### 2 777-1, , ####[facility] LABCLIA [id number] [facility] [address] [address] [place] Chloride [Moles/Vol] 107 mmol/L Normal 98-107 [facility] Comment on above: Order Comment: Speci men Type: BLOOD SPECIMENOrdering Facility: [facility] Address: [address] [place], [place] [address] Performed By: #### 2 777-1, , ####[facility] LABCLIA [id number] [address] [address] [place] CO2 [Moles/Vol] 24 mmol/L Normal 22-30 [facility] Comment on above: Order Comment: Speci men Type: BLOOD SPECIMENOrdering Facility: [facility] Address: [address] [place] [address] Performed By: #### 2 777-1, , ####[facility] [id number] [address] [address] [place] Creatinine [Mass/Vol] 1.22 mg/dL Normal 0.73-1.[address] [facility] Comment on above: Order Comment: Speci men Type: BLOOD SPECIMENOrdering Facility: [facility] Address: [address] [place] [address] Performed By: #### 2 777-1, , ####[facility] [id number] [address] [address] [place] Creatinine and Glomerular filtration rate.predicted panel (S/P/Bld) 61 mL/min/1.73m??? Normal >=60 [facility] Comment on above: Order Comment: Speci men Type: BLOOD SPECIMENOrdering Facility: [facility] Address: [address] [place] [address] Result Comment: Ruby mated Glomerular Filtration Rate (eGFR) is calculated using the 2020 CKD-EPI creatinine equation. This equation utilizes serum creatinine, sex, and age as parameters. The creatinine assay has traceable calibration to isotope dilution-mass spectrometry. Refer to KDIGO guidelines for clinical interpretation. In patients with unstable renal function, e.g. those with acute kidney injury, the eGFR may not accurately reflect actual GFR. Performed By: #### 2 777-1, 34593-5, ####[facility] LABCLIA [id number] [place] [id number] [place] Glucose [Mass/Vol] 82 mg/dL Normal 74-99 [facility] Comment on above: Order Comment: Speci men Type: BLOOD SPECIMENOrdering Facility: [facility] Address: [address] [place] [address] Result Comment: The [place] [employer] (ADA) provides guidance for cutoff values for fasting glucose and random glucose. The ADA defines fasting as no caloric intake for at least 8 hours. Fasting plasma glucose results between 100 to 125 mg/dL indicate increased risk for diabetes (prediabetes).Fasting plasma glucose results greater than or equal to 126 mg/dL meet the criteria for diagnosis of diabetes. In the absence of unequivocal hyperglycemia, results should be confirmed by repeat testing. In a patient with classic symptoms of hyperglycemia or hyperglycemic crisis, random plasma glucose results greater than or equal to 200 mg/dL meet the criteria for diagnosis of diabetes.Reference: Standards of Medical Care in Diabetes 2016, [place] [employer]. Diabetes Care. 2016.39(Suppl 1). Performed By: #### 2 777-1, , ####[facility] [id number] [address] [address] [place] Potassium [Moles/Vol] 3.9 mmol/L Normal 3.7-5.[address] [facility] Comment on above: Order Comment: Speci men Type: BLOOD SPECIMENOrdering Facility: [facility] Address: [address] [place] [address] Performed By: #### 2 777-1, 88980-6, ####[facility] [id number] [place] [id number] [place] Protein [Mass/Vol] 5.3 g/dL Low 6.3-8.0 [facility] Comment on above: Order Comment: Speci men Type: BLOOD SPECIMENOrdering Facility: [facility] Address: [address] [place] [address] Performed By: #### 2 777-1, 20164-0, 57096-9 ####[facility] LABCLIA [id number] [address] [address] [place] Sodium [Moles/Vol] 141 mmol/L Normal 136-144 [facility] Comment on above: Order Comment: Speci men Type: BLOOD SPECIMENOrdering Facility: [facility] Address: [address] [place], [place] [address] Performed By: #### 2 777-1, 95175-3, 75085-5 ####[facility] LABCLIA [id number] [place] [id number] [place] Urea nitrogen [Mass/Vol] 12 mg/dL Normal 9-24 [facility] Comment on above: Order Comment: Speci men Type: BLOOD SPECIMENOrdering Facility: [facility] Address: [address] [place] [address] Performed By: #### 2 777-1, 80505-7, 43185-3 ####[facility]IA [id number] [place] [id number] [place] Magnesium SerPl-mCncon 03-30 Magnesium [Mass/Vol] 2.2 mg/dL Normal 1.7-2.3 [facility] Comment on above: Order Comment: Speci men Type: BLOOD SPECIMENOrdering Facility: [facility] Address: [address] [place], [place] [address] Performed By: #### 2 777-1, 19650-4, ####[facility]IA [id number] [place] [id number] [place] Phosphate SerPl-mCncon 03-30 Phosphate [Mass/Vol] 3.2 mg/dL Normal 2.7-4.8 [facility] Comment on above: Order Comment: Speci men Type: BLOOD SPECIMENOrdering Facility: [facility] Address: [address] [place] [address] Performed By: #### 2 777-1, 58035-0, 92718-2 ####[facility] LABCLIA [id number] [place] [address] [place] THERAPY NTon 03-30-2024 THERAPY NT Normal [facility] CASE MANAGEMon 03-29-2024 CASE MANAGEM Normal [facility] CASE MANAGEM Normal [facility] CBC W Auto Differential pane l (Bld)on 03-29-2024 Basophils (Bld) [#/Vol] 0.05 10*3/uL Normal <0.11 [facility] Comment on above: Order Comment: Speci men Type: BLOOD SPECIMENOrdering Facility: [facility] Address: [address] [place] [address] Performed By: #### 5 7021-8 ####[facility] LABCLIA [id number] [place] [address] [place] Basophils/100 WBC (Bld) 0.7 % Normal [facility] Comment on above: Order Comment: Speci men Type: BLOOD SPECIMENOrdering Facility: [facility] Address: [address] [place] [address] Performed By: #### 5 7021-8 ####[facility] LABCLIA [id number] [place] [address] [place] Differential cell count method Nom (Bld) Auto Normal [facility] Comment on above: Order Comment: Speci men Type: BLOOD SPECIMENOrdering Facility: [facility] Address: [address] [place] [address] Performed By: #### 5 7021-8 ####[facility]CLIA [id number] [place] [address] [place] Eosinophils (Bld) [#/Vol] 0.17 10*3/uL Normal <0.46 [facility] Comment on above: Order Comment: Speci men Type: BLOOD SPECIMENOrdering Facility: [facility] Address: [address] [place] [address] Performed By: #### 5 7021-8 ####[facility]CLIA [id number] [place] [address] [place] Eosinophils/100 WBC (Bld) 2.3 % Normal [facility] Comment on above: Order Comment: Speci men Type: BLOOD SPECIMENOrdering Facility: [facility] Address: [address] [place] [address] Performed By: #### 5 7021-8 ####[facility] LABCLIA [id number] [place] [address] [place] Erythrocyte distribution width (RBC) [Ratio] 13.6 % Normal 11.5-15.0 [facility] Comment on above: Order Comment: Speci men Type: BLOOD SPECIMENOrdering Facility: [facility] Address: [address] [place] [address] Performed By: #### 5 7021-8 ####[facility] [id number] [place] [address] [place] Hematocrit (Bld) [Volume fraction] 30.9 % Low 39.0-51.0 [facility] Comment on above: Order Comment: Speci men Type: BLOOD SPECIMENOrdering Facility: [facility] Address: [address] [place] [address] Performed By: #### 5 7021-8 ####[facility]CLIA [id number] [place] [address] [place] Hemoglobin (Bld) [Mass/Vol] 10.4 g/dL Low 13.0-17.0 [facility] Comment on above: Order Comment: Speci men Type: BLOOD SPECIMENOrdering Facility: [facility] Address: [address] [place] [address] Performed By: #### 5 7021-8 ####[facility] LABCLIA [id number] [place] [address] [place] Immature granulocytes (Bld) [#/Vol] 0.10 10*3/uL High <0.10 [facility] Comment on above: Order Comment: Speci men Type: BLOOD SPECIMENOrdering Facility: [facility] Address: [address] [place] [address] Performed By: #### 5 7021-8 ####[facility]CLIA [id number] [place] [address] [place] Immature granulocytes/100 WBC (Bld) 1.3 % Normal [facility] Comment on above: Order Comment: Speci men Type: BLOOD SPECIMENOrdering Facility: [facility] Address: [address] [place] [address] Performed By: #### 5 7021-8 ####[facility] LABCLIA [id number] [place] [address] [place] Lymphocytes (Bld) [#/Vol] 0.90 10*3/uL Low 1.00-4.00 [facility] Comment on above: Order Comment: Speci men Type: BLOOD SPECIMENOrdering Facility: [facility] Address: [address] [place] [address] Performed By: #### 5 7021-8 ####[facility] LABCLIA [id number] [place] [address] [place] Lymphocytes/100 WBC (Bld) 12.0 % Normal [facility] Comment on above: Order Comment: Speci men Type: BLOOD SPECIMENOrdering Facility: [facility] Address: [address] [place] [address] Performed By: #### 5 7021-8 ####[facility] LABCLIA [id number] [place] [address] [place] MCH (RBC) [Entitic mass] 33.7 pg Normal 26.0-34.0 [facility] Comment on above: Order Comment: Speci men Type: BLOOD SPECIMENOrdering Facility: [facility] Address: [address] [place] [address] Performed By: #### 5 7021-8 ####[facility]CLIA [id number] [place] [address] [place] MCHC (RBC) [Mass/Vol] 33.7 g/dL Normal 30.5-36.[address] [facility] Comment on above: Order Comment: Speci men Type: BLOOD SPECIMENOrdering Facility: [facility] Address: [address] [place] [address] Performed By: #### 5 7021-8 ####[facility]CLIA [id number] [place] [address] [place] MCV (RBC) [Entitic vol] 100.0 fL Normal 80.0-100.0 [facility] Comment on above: Order Comment: Speci men Type: BLOOD SPECIMENOrdering Facility: [facility] Address: [address] [place] [address] Performed By: #### 5 7021-8 ####[facility]CLIA [id number] [place] [address] [place] Monocytes (Bld) [#/Vol] 0.70 10*3/uL Normal <0.87 [facility] Comment on above: Order Comment: Speci men Type: BLOOD SPECIMENOrdering Facility: [facility] Address: [address] [place] [address] Performed By: #### 5 7021-8 ####[facility]CLIA [id number] [place] [address] [place] Monocytes/100 WBC (Bld) 9.3 % Normal [facility] Comment on above: Order Comment: Speci men Type: BLOOD SPECIMENOrdering Facility: [facility] Address: [address] [place] [address] Performed By: #### 5 7021-8 ####[facility]CLIA [id number] [place] [address] [place] Neutrophils (Bld) [#/Vol] 5.59 10*3/uL Normal 1.45-7.50 [facility] Comment on above: Order Comment: Speci men Type: BLOOD SPECIMENOrdering Facility: [facility] Address: [address] [place] [address] Performed By: #### 5 7021-8 ####[facility]CLIA [id number] [place] [address] [place] Neutrophils/100 WBC (Bld) 74.4 % Normal [facility] Comment on above: Order Comment: Speci men Type: BLOOD SPECIMENOrdering Facility: [facility] Address: [address] [place] [address] Performed By: #### 5 7021-8 ####[facility]CLIA [id number] [place] [address] [place] Nucleated RBC (Bld) [#/Vol] 10*3/uL Normal <0.01 [facility] Comment on above: Order Comment: Speci men Type: BLOOD SPECIMENOrdering Facility: [facility] Address: [address] [place] [address] Performed By: #### 5 7021-8 ####[facility]CLIA [id number] [place] [address] [place] Nucleated RBC/100 WBC (Bld) [Ratio] 0.0 /100 WBC Normal [facility] Comment on above: Order Comment: Speci men Type: BLOOD SPECIMENOrdering Facility: [facility] Address: [address] [place] [address] Performed By: #### 5 7021-8 ####[facility]CLIA [id number] [place] [address] [place] Platelet mean volume (Bld) [Entitic vol] 10.3 fL Normal 9.0-12.7 [facility] Comment on above: Order Comment: Speci men Type: BLOOD SPECIMENOrdering Facility: [facility] Address: [address] [place] [address] Performed By: #### 5 7021-8 ####[facility]CLIA [id number] [address] [address] [place] Platelets (Bld) [#/Vol] 363 10*3/uL Normal 150-400 [facility] Comment on above: Order Comment: Speci men Type: BLOOD SPECIMENOrdering Facility: [facility] Address: [address] [place] [address] Performed By: #### 5 7021-8 ####[facility]CLIA [id number] [place] [address] [place] RBC (Bld) [#/Vol] 3.09 10*6/uL Low 4.20-6.00 [facility] Comment on above: Order Comment: Speci men Type: BLOOD SPECIMENOrdering Facility: [facility] Address: [address] [place] [address] Performed By: #### 5 7021-8 ####[facility]CLIA [id number] [place] [address] [place] WBC (Bld) [#/Vol] 7.51 10*3/uL Normal 3.70-11.00 [facility] Comment on above: Order Comment: Speci men Type: BLOOD SPECIMENOrdering Facility: [facility] Address: [address] [place] [address] Performed By: #### 5 7021-8 ####[facility]CLIA [id number] [place] [id number] [place] CNPNon 03-29-2024 CNPN Normal [facility] Comprehensive metabolic 2000 panelon 03-29-2024 Albumin [Mass/Vol] 2.6 g/dL Low 3.9-4.9 [facility] Comment on above: Order Comment: Speci men Type: BLOOD SPECIMENOrdering Facility: [facility] Address: [address] [place] [address] Performed By: #### 2 4323-8, , 2776-08 ####[facility]CLIA [id number] [place] [id number] [place] ALP [Catalytic activity/Vol] 61 U/L Normal 38-113 [facility] Comment on above: Order Comment: Speci men Type: BLOOD SPECIMENOrdering Facility: [facility] Address: [address] [place] [address] Performed By: #### 2 4323-8, , 2776-08 ####[facility]CL[facility] [id number] [place] [address] [place] ALT [Catalytic activity/Vol] 59 U/L High 10-54 [facility] Comment on above: Order Comment: Speci men Type: BLOOD SPECIMENOrdering Facility: [facility] Address: [address] [place] [address] Performed By: #### 2 4323-8, , 2776-08 ####[facility] [id number] [place] [address] [place] Anion gap [Moles/Vol] 8 mmol/L Normal 8-[address] [facility] Comment on above: Order Comment: Speci men Type: BLOOD SPECIMENOrdering Facility: [facility] Address: [address] [place], [place] [address] Performed By: #### 2 4323-8, 21842-3, 2776-08 ####[facility] [id number] [place] [id number] [place] AST [Catalytic activity/Vol] 53 U/L High 14-40 [facility] Comment on above: Order Comment: Speci men Type: BLOOD SPECIMENOrdering Facility: [facility] Address: [address] [place], [place] [address] Performed By: #### 2 4323-8, , 2776-08 ####[facility]CLIA [id number] [address] [address] [place] Bilirubin [Mass/Vol] 0.3 mg/dL Normal 0.2-1.3 [facility] Comment on above: Order Comment: Speci men Type: BLOOD SPECIMENOrdering Facility: [facility] Address: [address] [place] [address] Performed By: #### 2 4323-8, , 2776-08 ####[facility]CL[facility] [id number] [place] [address] [place] Calcium [Mass/Vol] 8.0 mg/dL Low 8.5-10.2 [facility] Comment on above: Order Comment: Speci men Type: BLOOD SPECIMENOrdering Facility: [facility] Address: [address] [place] [address] Performed By: #### 2 4323-8, , 2776-08 ####[facility] [id number] [place] [address] [place] Chloride [Moles/Vol] 107 mmol/L Normal 98-107 [facility] Comment on above: Order Comment: Speci men Type: BLOOD SPECIMENOrdering Facility: [facility] Address: [address] [place] [address] Performed By: #### 2 4323-8, , 2776-08 ####[facility] [id number] [address] [address] [place] CO2 [Moles/Vol] 24 mmol/L Normal 22-30 [facility] Comment on above: Order Comment: Speci men Type: BLOOD SPECIMENOrdering Facility: [facility] Address: [address] [place], [place] [id number] Performed By: #### 2 4323-8, , 2776-08 ####[facility]IA [id number] [place] [id number] [place] Creatinine [Mass/Vol] 1.17 mg/dL Normal 0.73-1.[address] [facility] Comment on above: Order Comment: Speci men Type: BLOOD SPECIMENOrdering Facility: [facility] Address: [address] [place] [address] Performed By: #### 2 4323-8, , 2776-08 ####[facility]IA [id number] [place] [address] [place] Creatinine and Glomerular filtration rate.predicted panel (S/P/Bld) 64 mL/min/1.73m??? Normal >=60 [facility] Comment on above: Order Comment: Elmo patterson Type: BLOOD SPECIMENOrdering Facility: [facility] Address: [address] [place] [address] Result Comment: Ruby mated Glomerular Filtration Rate (eGFR) is calculated using the 2020 CKD-EPI creatinine equation. This equation utilizes serum creatinine, sex, and age as parameters. The creatinine assay has traceable calibration to isotope dilution-mass spectrometry. Refer to KDIGO guidelines for clinical interpretation. In patients with unstable renal function, e.g. those with acute kidney injury, the eGFR may not accurately reflect actual GFR. Performed By: #### 2 4323-8, , 2776-08 ####[facility] LABIA [id number] [place] [id number] [place] Glucose [Mass/Vol] 87 mg/dL Normal 74-99 [facility] Comment on above: Order Comment: Cresencioi leonardo Type: BLOOD SPECIMENOrdering Facility: [facility] Address: [address] [place] [address] Result Comment: The [place] Diabetes [employer] (ADA) provides guidance for cutoff values for fasting glucose and random glucose. The ADA defines fasting as no caloric intake for at least 8 hours. Fasting plasma glucose results between 100 to 125 mg/dL indicate increased risk for diabetes (prediabetes).Fasting plasma glucose results greater than or equal to 126 mg/dL meet the criteria for diagnosis of diabetes. In the absence of unequivocal hyperglycemia, results should be confirmed by repeat testing. In a patient with classic symptoms of hyperglycemia or hyperglycemic crisis, random plasma glucose results greater than or equal to 200 mg/dL meet the criteria for diagnosis of diabetes.Reference: Standards of Medical Care in Diabetes 2016, [place] [employer]. Diabetes Care. 2016.39(Suppl 1). Performed By: #### 2 4323-8, , 2776-08 ####[facility] LABCLIA [id number] [address] [address] [place] Potassium [Moles/Vol] 3.9 mmol/L Normal 3.7-5.[address] [facility] Comment on above: Order Comment: Speci men Type: BLOOD SPECIMENOrdering Facility: [facility] Address: [address] [place] [address] Performed By: #### 2 4323-8, , 2776-08 ####[facility] LABCLIA [id number] [place] [address] [place] Protein [Mass/Vol] 5.2 g/dL Low 6.3-8.0 [facility] Comment on above: Order Comment: Speci men Type: BLOOD SPECIMENOrdering Facility: [facility] Address: [address] [place] [address] Performed By: #### 2 4323-8, , 2776-08 ####[facility] LABCLIA [id number] [address] [address] [place] Sodium [Moles/Vol] 139 mmol/L Normal 136-144 [facility] Comment on above: Order Comment: Speci men Type: BLOOD SPECIMENOrdering Facility: [facility] Address: [address] [place] [address] Performed By: #### 2 4323-8, , 2776-08 ####[facility] LABCLIA [id number] [place] [id number] [place] Urea nitrogen [Mass/Vol] 12 mg/dL Normal 9-24 [facility] Comment on above: Order Comment: Speci men Type: BLOOD SPECIMENOrdering Facility: [facility] Address: [address] [place], [place] [address] Performed By: #### 2 4323-8, 61400-4, 2776-08 ####[facility] LABIA [id number] [place] [id number] [place] Magnesium SerPl-mCncon 03-29 Magnesium [Mass/Vol] 2.2 mg/dL Normal 1.7-2.3 [facility] Comment on above: Order Comment: Speci men Type: BLOOD SPECIMENOrdering Facility: [facility] Address: [address] [place] [address] Performed By: #### 2 4323-8, , 2776-08 ####[facility] LABIA [id number] [place] [id number] [place] NURSING PROGon 03-29-2024 NURSING PROG Normal [facility] Phosphate SerPl-mCncon 03-29 Phosphate [Mass/Vol] 2.7 mg/dL Normal 2.7-4.8 [facility] Comment on above: Order Comment: Speci men Type: BLOOD SPECIMENOrdering Facility: [facility] Address: [address] [place] [address] Performed By: #### 2 4323-8, , 2776-08 ####[facility] LABIA [id number] [place] [id number] [place] THERAPY NTon 03-29-2024 THERAPY NT Normal [facility] CASE MANAGEMon 03-28-2024 CASE MANAGEM Normal [facility] CBC W Auto Differential pane l (Bld)on 03-28-2024 Basophils (Bld) [#/Vol] 0.03 10*3/uL Normal <0.11 [facility] Comment on above: Order Comment: Speci men Type: BLOOD SPECIMENOrdering Facility: [facility] Address: [address] [place] [address] Performed By: #### 5 7021-8 ####[facility] LABCLIA [id number] [place] [address] [place] Basophils/100 WBC (Bld) 0.4 % Normal [facility] Comment on above: Order Comment: Speci men Type: BLOOD SPECIMENOrdering Facility: [facility] Address: [address] [place] [address] Performed By: #### 5 7021-8 ####[facility] LABCLIA [id number] [place] [address] [place] Differential cell count method Nom (Bld) Auto Normal [facility] Comment on above: Order Comment: Speci men Type: BLOOD SPECIMENOrdering Facility: [facility] Address: [address] [place] [address] Performed By: #### 5 7021-8 ####[facility] LABCLIA [id number] [place] [address] [place] Eosinophils (Bld) [#/Vol] 0.19 10*3/uL Normal <0.46 [facility] Comment on above: Order Comment: Speci men Type: BLOOD SPECIMENOrdering Facility: [facility] Address: [address] [place] [address] Performed By: #### 5 7021-8 ####[facility] LABCLIA [id number] [place] [address] [place] Eosinophils/100 WBC (Bld) 2.5 % Normal [facility] Comment on above: Order Comment: Speci men Type: BLOOD SPECIMENOrdering Facility: [facility] Address: [address] [place] [address] Performed By: #### 5 7021-8 ####[facility] LABCLIA [id number] [place] [address] [place] Erythrocyte distribution width (RBC) [Ratio] 13.9 % Normal 11.5-15.0 [facility] Comment on above: Order Comment: Speci men Type: BLOOD SPECIMENOrdering Facility: [facility] Address: [address] [place] [address] Performed By: #### 5 7021-8 ####[facility] LABIA [id number] [place] [address] [place] Hematocrit (Bld) [Volume fraction] 32.5 % Low 39.0-51.0 [facility] Comment on above: Order Comment: Speci men Type: BLOOD SPECIMENOrdering Facility: [facility] Address: [address] [place] [address] Performed By: #### 5 7021-8 ####[facility] LABIA [id number] [place] [address] [place] Hemoglobin (Bld) [Mass/Vol] 10.4 g/dL Low 13.0-17.0 [facility] Comment on above: Order Comment: Speci men Type: BLOOD SPECIMENOrdering Facility: [facility] Address: [address] [place] [address] Performed By: #### 5 7021-8 ####[facility] LABIA [id number] [place] [address] [place] Immature granulocytes (Bld) [#/Vol] 0.12 10*3/uL High <0.10 [facility] Comment on above: Order Comment: Speci men Type: BLOOD SPECIMENOrdering Facility: [facility] Address: [address] [place] [address] Performed By: #### 5 7021-8 ####[facility] LABIA [id number] [place] [address] [place] Immature granulocytes/100 WBC (Bld) 1.6 % Normal [facility] Comment on above: Order Comment: Speci men Type: BLOOD SPECIMENOrdering Facility: [facility] Address: [address] [place] [address] Performed By: #### 5 7021-8 ####[facility] LABCLIA [id number] [place] [address] [place] Lymphocytes (Bld) [#/Vol] 0.83 10*3/uL Low 1.00-4.00 [facility] Comment on above: Order Comment: Speci men Type: BLOOD SPECIMENOrdering Facility: [facility] Address: [address] [place] [address] Performed By: #### 5 7021-8 ####[facility] LABIA [id number] [place] [address] [place] Lymphocytes/100 WBC (Bld) 10.9 % Normal [facility] Comment on above: Order Comment: Speci men Type: BLOOD SPECIMENOrdering Facility: [facility] Address: [address] [place] [address] Performed By: #### 5 7021-8 ####[facility] LABCLIA [id number] [place] [address] [place] MCH (RBC) [Entitic mass] 32.9 pg Normal 26.0-34.0 [facility] Comment on above: Order Comment: Speci men Type: BLOOD SPECIMENOrdering Facility: [facility] Address: [address] [place] [address] Performed By: #### 5 7021-8 ####[facility] LABCLIA [id number] [place] [address] [place] MCHC (RBC) [Mass/Vol] 32.0 g/dL Normal 30.5-36.[address] [facility] Comment on above: Order Comment: Speci men Type: BLOOD SPECIMENOrdering Facility: [facility] Address: [address] [place] [address] Performed By: #### 5 7021-8 ####[facility] LABCLIA [id number] [place] [address] [place] MCV (RBC) [Entitic vol] 102.8 fL High 80.0-100.0 [facility] Comment on above: Order Comment: Speci men Type: BLOOD SPECIMENOrdering Facility: [facility] Address: [address] [place] [address] Performed By: #### 5 7021-8 ####[facility] LABCLIA [id number] [place] [address] [place] Monocytes (Bld) [#/Vol] 0.71 10*3/uL Normal <0.87 [facility] Comment on above: Order Comment: Speci men Type: BLOOD SPECIMENOrdering Facility: [facility] Address: [address] [place] [address] Performed By: #### 5 7021-8 ####[facility] LABIA [id number] [place] [address] [place] Monocytes/100 WBC (Bld) 9.3 % Normal [facility] Comment on above: Order Comment: Speci men Type: BLOOD SPECIMENOrdering Facility: [facility] Address: [address] [place] [address] Performed By: #### 5 7021-8 ####[facility] LABCLIA [id number] [place] [address] [place] Neutrophils (Bld) [#/Vol] 5.73 10*3/uL Normal 1.45-7.50 [facility] Comment on above: Order Comment: Speci men Type: BLOOD SPECIMENOrdering Facility: [facility] Address: [address] [place] [address] Performed By: #### 5 7021-8 ####[facility] LABCLIA [id number] [place] [address] [place] Neutrophils/100 WBC (Bld) 75.3 % Normal [facility] Comment on above: Order Comment: Speci men Type: BLOOD SPECIMENOrdering Facility: [facility] Address: [address] [place] [address] Performed By: #### 5 7021-8 ####[facility] LABCLIA [id number] [place] [address] [place] Nucleated RBC (Bld) [#/Vol] 10*3/uL Normal <0.01 [facility] Comment on above: Order Comment: Speci men Type: BLOOD SPECIMENOrdering Facility: [facility] Address: [address] [place] [address] Performed By: #### 5 7021-8 ####[facility] LABCLIA [id number] [place] [address] [place] Nucleated RBC/100 WBC (Bld) [Ratio] 0.0 /100 WBC Normal [facility] Comment on above: Order Comment: Speci men Type: BLOOD SPECIMENOrdering Facility: [facility] Address: [address] [place] [address] Performed By: #### 5 7021-8 ####[facility] LABCLIA [id number] [place] [address] [place] Platelet mean volume (Bld) [Entitic vol] 10.5 fL Normal 9.0-12.7 [facility] Comment on above: Order Comment: Speci men Type: BLOOD SPECIMENOrdering Facility: [facility] Address: [address] [place] [address] Performed By: #### 5 7021-8 ####[facility] LABCLIA [id number] [place] [address] [place] Platelets (Bld) [#/Vol] 335 10*3/uL Normal 150-400 [facility] Comment on above: Order Comment: Speci men Type: BLOOD SPECIMENOrdering Facility: [facility] Address: [address] [place] [address] Performed By: #### 5 7021-8 ####[facility] LABCLIA [id number] [place] [id number] [place] RBC (Bld) [#/Vol] 3.16 10*6/uL Low 4.20-6.00 [facility] Comment on above: Order Comment: Speci men Type: BLOOD SPECIMENOrdering Facility: [facility] Address: [address] [place] [address] Performed By: #### 5 7021-8 ####[facility] LABIA [id number] [place] [id number] [place] WBC (Bld) [#/Vol] 7.61 10*3/uL Normal 3.70-11.00 [facility] Comment on above: Order Comment: Speci men Type: BLOOD SPECIMENOrdering Facility: [facility] Address: [address] [place] [address] Performed By: #### 5 7021-8 ####[facility] LABIA [id number] [place] [id number] [place] Comprehensive metabolic 2000 panelon 03-28-2024 Albumin [Mass/Vol] 2.7 g/dL Low 3.9-4.9 [facility] Comment on above: Order Comment: Speci men Type: BLOOD SPECIMENOrdering Facility: [facility] Address: [address] [place] [address] Performed By: #### 2 4323-8, , 277- ####[facility] LABIA [id number] [place] [address] [place] ALP [Catalytic activity/Vol] 59 U/L Normal 38-113 [facility] Comment on above: Order Comment: Speci men Type: BLOOD SPECIMENOrdering Facility: [facility] Address: [address] [place] [address] Performed By: #### 2 4323-8, , 2776-08 ####[facility] LABCLIA [id number] [address] [address] [place] ALT [Catalytic activity/Vol] 57 U/L High 10-54 [facility] Comment on above: Order Comment: Speci men Type: BLOOD SPECIMENOrdering Facility: [facility] Address: [address] [place] [address] Performed By: #### 2 4323-8, , 2776-08 ####[facility] LABCLIA [id number] [address] [address] [place] Anion gap [Moles/Vol] 8 mmol/L Normal 8-[address] [facility] Comment on above: Order Comment: Speci men Type: BLOOD SPECIMENOrdering Facility: [facility] Address: [address] [place] [address] Performed By: #### 2 4323-8, , 2776-08 ####[facility] LABCLIA [id number] [place] [address] [place] AST [Catalytic activity/Vol] 53 U/L High 14-40 [facility] Comment on above: Order Comment: Speci men Type: BLOOD SPECIMENOrdering Facility: [facility] Address: [address] [place] [address] Performed By: #### 2 4323-8, , 2776-08 ####[facility] LABCLIA [id number] [place] [id number] [place] Bilirubin [Mass/Vol] 0.2 mg/dL Normal 0.2-1.3 [facility] Comment on above: Order Comment: Speci men Type: BLOOD SPECIMENOrdering Facility: [facility] Address: [address] [place] [address] Performed By: #### 2 4323-8, , 2776-08 ####[facility] LABCLIA [id number] [place] [address] [place] Calcium [Mass/Vol] 7.8 mg/dL Low 8.5-10.2 [facility] Comment on above: Order Comment: Speci men Type: BLOOD SPECIMENOrdering Facility: [facility] Address: [address] [place] [address] Performed By: #### 2 4323-8, 57202-8, 2776-08 ####[facility] LABCLIA [id number] [place] [address] [place] Chloride [Moles/Vol] 106 mmol/L Normal 98-107 [facility] Comment on above: Order Comment: Speci men Type: BLOOD SPECIMENOrdering Facility: [facility] Address: [address] [place] [address] Performed By: #### 2 4323-8, , 2776-08 ####[facility] LABCLIA [id number] [place] [address] [place] CO2 [Moles/Vol] 24 mmol/L Normal 22-30 [facility] Comment on above: Order Comment: Speci men Type: BLOOD SPECIMENOrdering Facility: [facility] Address: [address] [place] [address] Performed By: #### 2 4323-8, , 2776-08 ####[facility] LABCLIA [id number] [place] [address] [place] Creatinine [Mass/Vol] 1.30 mg/dL High 0.73-1.[address] [facility] Comment on above: Order Comment: Speci men Type: BLOOD SPECIMENOrdering Facility: [facility] Address: [address] [place] [address] Performed By: #### 2 4323-8, , 2776-08 ####[facility] LABCLIA [id number] [place] [id number] [place] Creatinine and Glomerular filtration rate.predicted panel (S/P/Bld) 56 mL/min/1.73m??? Low >=60 [facility] Comment on above: Order Comment: Elmo patterson Type: BLOOD SPECIMENOrdering Facility: [facility] Address: [address] [place] [address] Result Comment: Ruby mated Glomerular Filtration Rate (eGFR) is calculated using the 2020 CKD-EPI creatinine equation. This equation utilizes serum creatinine, sex, and age as parameters. The creatinine assay has traceable calibration to isotope dilution-mass spectrometry. Refer to KDIGO guidelines for clinical interpretation. In patients with unstable renal function, e.g. those with acute kidney injury, the eGFR may not accurately reflect actual GFR. Performed By: #### 2 4323-8, , 2776-08 ####[facility] LABCLIA [id number] [place] [address] [place] Glucose [Mass/Vol] 96 mg/dL Normal 74-99 [facility] Comment on above: Order Comment: Elmo patterson Type: BLOOD SPECIMENOrdering Facility: [facility] Address: [address] [place] [address] Result Comment: The [place] [employer] (ADA) provides guidance for cutoff values for fasting glucose and random glucose. The ADA defines fasting as no caloric intake for at least 8 hours. Fasting plasma glucose results between 100 to 125 mg/dL indicate increased risk for diabetes (prediabetes).Fasting plasma glucose results greater than or equal to 126 mg/dL meet the criteria for diagnosis of diabetes. In the absence of unequivocal hyperglycemia, results should be confirmed by repeat testing. In a patient with classic symptoms of hyperglycemia or hyperglycemic crisis, random plasma glucose results greater than or equal to 200 mg/dL meet the criteria for diagnosis of diabetes.Reference: Standards of Medical Care in Diabetes 2016, [place] [employer]. Diabetes Care. 2016.39(Suppl 1). Performed By: #### 2 4323-8, 27639-7, 2776-08 ####[facility] LABCLIA [id number] [place] [id number] [place] Potassium [Moles/Vol] 3.8 mmol/L Normal 3.7-5.[address] [facility] Comment on above: Order Comment: Speci men Type: BLOOD SPECIMENOrdering Facility: [facility] Address: [address] [place], [place] [address] Performed By: #### 2 4323-8, , 2776-08 ####[facility] LABCLIA [id number] [place] [id number] [place] Protein [Mass/Vol] 5.2 g/dL Low 6.3-8.0 [facility] Comment on above: Order Comment: Speci men Type: BLOOD SPECIMENOrdering Facility: [facility] Address: [address] [place] [address] Performed By: #### 2 4323-8, , 2776-08 ####[facility] LABCLIA [id number] [place] [address] [place] Sodium [Moles/Vol] 138 mmol/L Normal 136-144 [facility] Comment on above: Order Comment: Speci men Type: BLOOD SPECIMENOrdering Facility: [facility] Address: [address] [place] [address] Performed By: #### 2 4323-8, , 2776-08 ####[facility] LABCLIA [id number] [place] [address] [place] Urea nitrogen [Mass/Vol] 15 mg/dL Normal 9-24 [facility] Comment on above: Order Comment: Speci men Type: BLOOD SPECIMENOrdering Facility: [facility] Address: [address] [place] [address] Performed By: #### 2 4323-8, , 2776-08 ####[facility] LABCLIA [id number] [address] [address] [place] Magnesium SerPl-mCncon 03-28 Magnesium [Mass/Vol] 2.3 mg/dL Normal 1.7-2.3 [facility] Comment on above: Order Comment: Speci men Type: BLOOD SPECIMENOrdering Facility: [facility] Address: [address] [place] [address] Performed By: #### 2 4323-8, 98663-7, 2776-1 ####[facility] LABCLIA [id number] [place] [address] [place] NUTRITIONon 03-28-2024 NUTRITION Normal [facility] Phosphate SerPl-mCncon 03-28 Phosphate [Mass/Vol] 3.0 mg/dL Normal 2.7-4.8 [facility] Comment on above: Order Comment: Speci men Type: BLOOD SPECIMENOrdering Facility: [facility] Address: [address] [place] [address] Performed By: #### 2 4323-8, , 2776-08 ####[facility] LABCLIA [id number] [place] [address] [place] THERAPY NTon 03-28-2024 THERAPY NT Normal [facility] THERAPY NT Normal [facility] CBC W Auto Differential pane l (Bld)on 03-27-2024 Basophils (Bld) [#/Vol] 0.03 10*3/uL Normal <0.11 [facility] Comment on above: Order Comment: Speci men Type: BLOOD SPECIMENOrdering Facility: [facility] Address: [address] [place] [address] Performed By: #### 5 7021-8 ####[facility] LABCLIA [id number] [place] [address] [place] Basophils/100 WBC (Bld) 0.3 % Normal [facility] Comment on above: Order Comment: Speci men Type: BLOOD SPECIMENOrdering Facility: [facility] Address: [address] [place] [address] Performed By: #### 5 7021-8 ####[facility] LABCLIA [id number] [place] [address] [place] Differential cell count method Nom (Bld) Auto Normal [facility] Comment on above: Order Comment: Speci men Type: BLOOD SPECIMENOrdering Facility: [facility] Address: [address] [place] [address] Performed By: #### 5 7021-8 ####[facility] LABCLIA [id number] [place] [address] [place] Eosinophils (Bld) [#/Vol] 0.14 10*3/uL Normal <0.46 [facility] Comment on above: Order Comment: Speci men Type: BLOOD SPECIMENOrdering Facility: [facility] Address: [address] [place] [address] Performed By: #### 5 7021-8 ####[facility] LABCLIA [id number] [place] [address] [place] Eosinophils/100 WBC (Bld) 1.2 % Normal [facility] Comment on above: Order Comment: Speci men Type: BLOOD SPECIMENOrdering Facility: [facility] Address: [address] [place] [address] Performed By: #### 5 7021-8 ####[facility] LABCLIA [id number] [place] [address] [place] Erythrocyte distribution width (RBC) [Ratio] 13.9 % Normal 11.5-15.0 [facility] Comment on above: Order Comment: Speci men Type: BLOOD SPECIMENOrdering Facility: [facility] Address: [address] [place] [address] Performed By: #### 5 7021-8 ####[facility] LABCLIA [id number] [place] [address] [place] Hematocrit (Bld) [Volume fraction] 31.9 % Low 39.0-51.0 [facility] Comment on above: Order Comment: Speci men Type: BLOOD SPECIMENOrdering Facility: [facility] Address: [address] [place] [address] Performed By: #### 5 7021-8 ####[facility] LABCLIA [id number] [place] [address] [place] Hemoglobin (Bld) [Mass/Vol] 10.5 g/dL Low 13.0-17.0 [facility] Comment on above: Order Comment: Speci men Type: BLOOD SPECIMENOrdering Facility: [facility] Address: [address] [place] [address] Performed By: #### 5 7021-8 ####[facility] LABCLIA [id number] [place] [address] [place] Immature granulocytes (Bld) [#/Vol] 0.16 10*3/uL High <0.10 [facility] Comment on above: Order Comment: Speci men Type: BLOOD SPECIMENOrdering Facility: [facility] Address: [address] [place] [address] Performed By: #### 5 7021-8 ####[facility] LABIA [id number] [place] [address] [place] Immature granulocytes/100 WBC (Bld) 1.4 % Normal [facility] Comment on above: Order Comment: Speci men Type: BLOOD SPECIMENOrdering Facility: [facility] Address: [address] [place] [address] Performed By: #### 5 7021-8 ####[facility] LABCLIA [id number] [place] [address] [place] Lymphocytes (Bld) [#/Vol] 0.70 10*3/uL Low 1.00-4.00 [facility] Comment on above: Order Comment: Speci men Type: BLOOD SPECIMENOrdering Facility: [facility] Address: [address] [place] [address] Performed By: #### 5 7021-8 ####[facility] LABCLIA [id number] [place] [address] [place] Lymphocytes/100 WBC (Bld) 6.2 % Normal [facility] Comment on above: Order Comment: Speci men Type: BLOOD SPECIMENOrdering Facility: [facility] Address: [address] [place] [address] Performed By: #### 5 7021-8 ####[facility] LABIA [id number] [place] [address] [place] MCH (RBC) [Entitic mass] 33.1 pg Normal 26.0-34.0 [facility] Comment on above: Order Comment: Speci men Type: BLOOD SPECIMENOrdering Facility: [facility] Address: [address] [place] [address] Performed By: #### 5 7021-8 ####[facility] LABIA [id number] [place] [address] [place] MCHC (RBC) [Mass/Vol] 32.9 g/dL Normal 30.5-36.[address] [facility] Comment on above: Order Comment: Speci men Type: BLOOD SPECIMENOrdering Facility: [facility] Address: [address] [place] [address] Performed By: #### 5 7021-8 ####[facility] LABIA [id number] [place] [address] [place] MCV (RBC) [Entitic vol] 100.6 fL High 80.0-100.0 [facility] Comment on above: Order Comment: Speci men Type: BLOOD SPECIMENOrdering Facility: [facility] Address: [address] [place] [address] Performed By: #### 5 7021-8 ####[facility] LABIA [id number] [place] [address] [place] Monocytes (Bld) [#/Vol] 0.81 10*3/uL Normal <0.87 [facility] Comment on above: Order Comment: Speci men Type: BLOOD SPECIMENOrdering Facility: [facility] Address: [facility] [place] [address] Performed By: #### 5 7021-8 ####[facility] LABCLIA [id number] [place] [address] [place] Monocytes/100 WBC (Bld) 7.1 % Normal [facility] Comment on above: Order Comment: Speci men Type: BLOOD SPECIMENOrdering Facility: [facility] Address: [address] [place] [address] Performed By: #### 5 7021-8 ####[facility] LABCLIA [id number] [place] [address] [place] Neutrophils (Bld) [#/Vol] 9.53 10*3/uL High 1.45-7.50 [facility] Comment on above: Order Comment: Speci men Type: BLOOD SPECIMENOrdering Facility: [facility] Address: [address] [place] [address] Performed By: #### 5 7021-8 ####[facility] LABCLIA [id number] [place] [address] [place] Neutrophils/100 WBC (Bld) 83.8 % Normal [facility] Comment on above: Order Comment: Speci men Type: BLOOD SPECIMENOrdering Facility: [facility] Address: [address] [place] [address] Performed By: #### 5 7021-8 ####[facility] LABCLIA [id number] [place] [address] [place] Nucleated RBC (Bld) [#/Vol] 10*3/uL Normal <0.01 [facility] Comment on above: Order Comment: Speci men Type: BLOOD SPECIMENOrdering Facility: [facility] Address: [address] [place] [address] Performed By: #### 5 7021-8 ####[facility] LABCLIA [id number] [place] [address] [place] Nucleated RBC/100 WBC (Bld) [Ratio] 0.0 /100 WBC Normal [facility] Comment on above: Order Comment: Speci men Type: BLOOD SPECIMENOrdering Facility: [facility] Address: [address] [place] [address] Performed By: #### 5 7021-8 ####[facility] LABIA [id number] [place] [address] [place] Platelet mean volume (Bld) [Entitic vol] 10.1 fL Normal 9.0-12.7 [facility] Comment on above: Order Comment: Speci men Type: BLOOD SPECIMENOrdering Facility: [facility] Address: [address] [place] [address] Performed By: #### 5 7021-8 ####[facility] LABIA [id number] [place] [address] [place] Platelets (Bld) [#/Vol] 336 10*3/uL Normal 150-400 [facility] Comment on above: Order Comment: Speci men Type: BLOOD SPECIMENOrdering Facility: [facility] Address: [address] [place] [address] Performed By: #### 5 7021-8 ####[facility] LABIA [id number] [place] [address] [place] RBC (Bld) [#/Vol] 3.17 10*6/uL Low 4.20-6.00 [facility] Comment on above: Order Comment: Speci men Type: BLOOD SPECIMENOrdering Facility: [facility] Address: [address] [place] [address] Performed By: #### 5 7021-8 ####[facility] LABIA [id number] [place] [address] [place] WBC (Bld) [#/Vol] 11.37 10*3/uL High 3.70-11.00 [facility] Comment on above: Order Comment: Speci men Type: BLOOD SPECIMENOrdering Facility: [facility] Address: [address] [place] [address] Performed By: #### 5 7021-8 ####[facility] LABCLIA [id number] [place] [address] [place] Comprehensive metabolic 2000 panelon 03-27-2024 Albumin [Mass/Vol] 2.4 g/dL Low 3.9-4.9 [facility] Comment on above: Order Comment: Speci men Type: BLOOD SPECIMENOrdering Facility: [facility] Address: [address] [place] [address] Performed By: #### 2 4323-8, 2777-1, ####[facility] LABCLIA [id number] [place] [address] [place] ALP [Catalytic activity/Vol] 60 U/L Normal 38-113 [facility] Comment on above: Order Comment: Speci men Type: BLOOD SPECIMENOrdering Facility: [facility] Address: [address] [place] [address] Performed By: #### 2 4323-8, 27771, ####[facility] LABCLIA [id number] [place] [address] [place] ALT [Catalytic activity/Vol] 55 U/L High 10-54 [facility] Comment on above: Order Comment: Speci men Type: BLOOD SPECIMENOrdering Facility: [facility] Address: [address] [place] [address] Performed By: #### 2 4323-8, 2771, ####[facility] LABCLIA [id number] [place] [id number] [place] Anion gap [Moles/Vol] 9 mmol/L Normal 8-[address] [facility] Comment on above: Order Comment: Speci men Type: BLOOD SPECIMENOrdering Facility: [facility] Address: [address] [place] [address] Performed By: #### 2 4323-8, 2776-08, ####[facility] LABCLIA [id number] [address] [address] [place] AST [Catalytic activity/Vol] 59 U/L High 14-40 [facility] Comment on above: Order Comment: Speci men Type: BLOOD SPECIMENOrdering Facility: [facility] Address: [address] [place] [address] Performed By: #### 2 4323-8, 2776-08, ####[facility] LABCLIA [id number] [address] [address] [place] Bilirubin [Mass/Vol] 0.2 mg/dL Normal 0.2-1.3 [facility] Comment on above: Order Comment: Speci men Type: BLOOD SPECIMENOrdering Facility: [facility] Address: [address] [place] [address] Performed By: #### 2 4323-8, 2776-08, ####[facility] LABCLIA [id number] [address] [address] [place] Calcium [Mass/Vol] 7.8 mg/dL Low 8.5-10.2 [facility] Comment on above: Order Comment: Speci men Type: BLOOD SPECIMENOrdering Facility: [facility] Address: [address] [place] [address] Performed By: #### 2 4323-8, 2776-08, ####[facility] LABCLIA [id number] [address] [address] [place] Chloride [Moles/Vol] 108 mmol/L High 98-107 [facility] Comment on above: Order Comment: Speci men Type: BLOOD SPECIMENOrdering Facility: [facility] Address: [address] [place], [place] [address] Performed By: #### 2 4323-8, 2776-08, ####[facility] LABCLIA [id number] [address] [address] [place] CO2 [Moles/Vol] 21 mmol/L Low 22-30 [facility] Comment on above: Order Comment: Speci men Type: BLOOD SPECIMENOrdering Facility: [facility] Address: [address] [place], [place] [address] Performed By: #### 2 4323-8, 27701-31, ####[facility] LABIA [id number] [place] [id number] [place] Creatinine [Mass/Vol] 1.17 mg/dL Normal 0.73-1.[address] [facility] Comment on above: Order Comment: Speci men Type: BLOOD SPECIMENOrdering Facility: [facility] Address: [address] [place] [address] Performed By: #### 2 4323-8, 2776-08, ####[facility] LABIA [id number] [place] [id number] [place] Creatinine and Glomerular filtration rate.predicted panel (S/P/Bld) 64 mL/min/1.73m??? Normal >=60 [facility] Comment on above: Order Comment: Speci men Type: BLOOD SPECIMENOrdering Facility: [facility] Address: [address] [place] [address] Result Comment: Ruby mated Glomerular Filtration Rate (eGFR) is calculated using the 2020 CKD-EPI creatinine equation. This equation utilizes serum creatinine, sex, and age as parameters. The creatinine assay has traceable calibration to isotope dilution-mass spectrometry. Refer to KDIGO guidelines for clinical interpretation. In patients with unstable renal function, e.g. those with acute kidney injury, the eGFR may not accurately reflect actual GFR. Performed By: #### 2 4323-8, 2776-08, ####[facility] LABCLIA [id number] [address] [address] [place] Glucose [Mass/Vol] 117 mg/dL High 74-99 [facility] Comment on above: Order Comment: Cresencioi men Type: BLOOD SPECIMENOrdering Facility: [facility] Address: [address] [place] [address] Result Comment: The [place] [employer] (ADA) provides guidance for cutoff values for fasting glucose and random glucose. The ADA defines fasting as no caloric intake for at least 8 hours. Fasting plasma glucose results between 100 to 125 mg/dL indicate increased risk for diabetes (prediabetes).Fasting plasma glucose results greater than or equal to 126 mg/dL meet the criteria for diagnosis of diabetes. In the absence of unequivocal hyperglycemia, results should be confirmed by repeat testing. In a patient with classic symptoms of hyperglycemia or hyperglycemic crisis, random plasma glucose results greater than or equal to 200 mg/dL meet the criteria for diagnosis of diabetes.Reference: Standards of Medical Care in Diabetes 2016, [place] [employer]. Diabetes Care. 2016.39(Suppl 1). Performed By: #### 2 4323-8, 2776-08, ####[facility] LABIA [id number] [place] [id number] [place] Potassium [Moles/Vol] 4.3 mmol/L Normal 3.7-5.[address] [facility] Comment on above: Order Comment: Cresencioi men Type: BLOOD SPECIMENOrdering Facility: [facility] Address: [address] [place] [address] Performed By: #### 2 4323-8, 27701-31, ####[facility] LABIA [id number] [place] [id number] [place] Protein [Mass/Vol] 5.2 g/dL Low 6.3-8.0 [facility] Comment on above: Order Comment: Speci men Type: BLOOD SPECIMENOrdering Facility: [facility] Address: [address] [place] [address] Performed By: #### 2 4323-8, 2777-1, 78813-8 ####[facility] LABCLIA [id number] [address] [address] [place] Sodium [Moles/Vol] 138 mmol/L Normal 136-144 [facility] Comment on above: Order Comment: Speci men Type: BLOOD SPECIMENOrdering Facility: [facility] Address: [address] [place], [place] [address] Performed By: #### 2 4323-8, 2777-1, ####[facility] LABCLIA [id number] [place] [id number] [place] Urea nitrogen [Mass/Vol] 14 mg/dL Normal 9-24 [facility] Comment on above: Order Comment: Speci men Type: BLOOD SPECIMENOrdering Facility: [facility] Address: [address] [place], [place] [address] Performed By: #### 2 4323-8, 2777-1, ####[facility] LABIA [id number] [place] [id number] [place] Magnesium SerPl-mCncon 03-27 Magnesium [Mass/Vol] 2.3 mg/dL Normal 1.7-2.3 [facility] Comment on above: Order Comment: Speci men Type: BLOOD SPECIMENOrdering Facility: [facility] Address: [address] [place], [place] [address] Performed By: #### 2 4323-8, 2777-, ####[facility] LABCLIA [id number] [place] [id number] [place] Phosphate SerPl-mCncon 03-27 Phosphate [Mass/Vol] 2.9 mg/dL Normal 2.7-4.8 [facility] Comment on above: Order Comment: Speci men Type: BLOOD SPECIMENOrdering Facility: [facility] Address: [address] [place] [address] Performed By: #### 2 4323-8, 2777-1, 04393-6 ####[facility] LABCLIA [id number] [place] [address] [place] CBC W Auto Differential pane l (Bld)on 03-26-2024 Basophils (Bld) [#/Vol] 0.04 10*3/uL Normal <0.11 [facility] Comment on above: Order Comment: Speci men Type: BLOOD SPECIMENOrdering Facility: [facility] Address: [address] [place] [address] Performed By: #### 5 7021-8 ####[facility] LABCLIA [id number] [place] [address] [place] Basophils/100 WBC (Bld) 0.4 % Normal [facility] Comment on above: Order Comment: Speci men Type: BLOOD SPECIMENOrdering Facility: [facility] Address: [address] [place] [address] Performed By: #### 5 7021-8 ####[facility] LABCLIA [id number] [place] [address] [place] Differential cell count method Nom (Bld) Auto Normal [facility] Comment on above: Order Comment: Speci men Type: BLOOD SPECIMENOrdering Facility: [facility] Address: [address] [place] [address] Performed By: #### 5 7021-8 ####[facility] LABCLIA [id number] [place] [address] [place] Eosinophils (Bld) [#/Vol] 0.22 10*3/uL Normal <0.46 [facility] Comment on above: Order Comment: Speci men Type: BLOOD SPECIMENOrdering Facility: [facility] Address: [address] [place] [address] Performed By: #### 5 7021-8 ####[facility] LABCLIA [id number] [place] [address] [place] Eosinophils/100 WBC (Bld) 2.1 % Normal [facility] Comment on above: Order Comment: Speci men Type: BLOOD SPECIMENOrdering Facility: [facility] Address: [address] [place] [address] Performed By: #### 5 7021-8 ####[facility] LABCLIA [id number] [place] [address] [place] Erythrocyte distribution width (RBC) [Ratio] 14.0 % Normal 11.5-15.0 [facility] Comment on above: Order Comment: Speci men Type: BLOOD SPECIMENOrdering Facility: [facility] Address: [address] [place] [address] Performed By: #### 5 7021-8 ####[facility] LABCLIA [id number] [place] [address] [place] Hematocrit (Bld) [Volume fraction] 32.5 % Low 39.0-51.0 [facility] Comment on above: Order Comment: Speci men Type: BLOOD SPECIMENOrdering Facility: [facility] Address: [address] [place] [address] Performed By: #### 5 7021-8 ####[facility] LABCLIA [id number] [place] [address] [place] Hemoglobin (Bld) [Mass/Vol] 10.5 g/dL Low 13.0-17.0 [facility] Comment on above: Order Comment: Speci men Type: BLOOD SPECIMENOrdering Facility: [facility] Address: [address] [place] [address] Performed By: #### 5 7021-8 ####[facility] LABCLIA [id number] [place] [address] [place] Immature granulocytes (Bld) [#/Vol] 0.24 10*3/uL High <0.10 [facility] Comment on above: Order Comment: Speci men Type: BLOOD SPECIMENOrdering Facility: [facility] Address: [address] [place] [address] Performed By: #### 5 7021-8 ####[facility] LABCLIA [id number] [place] [address] [place] Immature granulocytes/100 WBC (Bld) 2.3 % Normal [facility] Comment on above: Order Comment: Speci men Type: BLOOD SPECIMENOrdering Facility: [facility] Address: [address] [place] [address] Performed By: #### 5 7021-8 ####[facility] LABCLIA [id number] [place] [address] [place] Lymphocytes (Bld) [#/Vol] 0.83 10*3/uL Low 1.00-4.00 [facility] Comment on above: Order Comment: Speci men Type: BLOOD SPECIMENOrdering Facility: [facility] Address: [address] [place] [address] Performed By: #### 5 7021-8 ####[facility] LABCLIA [id number] [place] [address] [place] Lymphocytes/100 WBC (Bld) 7.8 % Normal [facility] Comment on above: Order Comment: Speci men Type: BLOOD SPECIMENOrdering Facility: [facility] Address: [address] [place] [address] Performed By: #### 5 7021-8 ####[facility] LABCLIA [id number] [place] [address] [place] MCH (RBC) [Entitic mass] 33.3 pg Normal 26.0-34.0 [facility] Comment on above: Order Comment: Speci men Type: BLOOD SPECIMENOrdering Facility: [facility] Address: [address] [place] [address] Performed By: #### 5 7021-8 ####[facility] LABCLIA [id number] [place] [address] [place] MCHC (RBC) [Mass/Vol] 32.3 g/dL Normal 30.5-36.[address] [facility] Comment on above: Order Comment: Speci men Type: BLOOD SPECIMENOrdering Facility: [facility] Address: [address] [place] [address] Performed By: #### 5 7021-8 ####[facility] LABIA [id number] [place] [address] [place] MCV (RBC) [Entitic vol] 103.2 fL High 80.0-100.0 [facility] Comment on above: Order Comment: Speci men Type: BLOOD SPECIMENOrdering Facility: [facility] Address: [address] [place] [address] Performed By: #### 5 7021-8 ####[facility] LABIA [id number] [place] [address] [place] Monocytes (Bld) [#/Vol] 0.88 10*3/uL High <0.87 [facility] Comment on above: Order Comment: Speci men Type: BLOOD SPECIMENOrdering Facility: [facility] Address: [address] [place] [address] Performed By: #### 5 7021-8 ####[facility] LABIA [id number] [place] [address] [place] Monocytes/100 WBC (Bld) 8.3 % Normal [facility] Comment on above: Order Comment: Speci men Type: BLOOD SPECIMENOrdering Facility: [facility] Address: [address] [place] [address] Performed By: #### 5 7021-8 ####[facility] LABIA [id number] [place] [address] [place] Neutrophils (Bld) [#/Vol] 8.44 10*3/uL High 1.45-7.50 [facility] Comment on above: Order Comment: Speci men Type: BLOOD SPECIMENOrdering Facility: [facility] Address: [address] [place] [address] Performed By: #### 5 7021-8 ####[facility] LABCLIA [id number] [place] [address] [place] Neutrophils/100 WBC (Bld) 79.1 % Normal [facility] Comment on above: Order Comment: Speci men Type: BLOOD SPECIMENOrdering Facility: [facility] Address: [address] [place] [address] Performed By: #### 5 7021-8 ####[facility] LABIA [id number] [place] [address] [place] Nucleated RBC (Bld) [#/Vol] 10*3/uL Normal <0.01 [facility] Comment on above: Order Comment: Speci men Type: BLOOD SPECIMENOrdering Facility: [facility] Address: [address] [place] [address] Performed By: #### 5 7021-8 ####[facility] LABIA [id number] [place] [address] [place] Nucleated RBC/100 WBC (Bld) [Ratio] 0.0 /100 WBC Normal [facility] Comment on above: Order Comment: Speci men Type: BLOOD SPECIMENOrdering Facility: [facility] Address: [address] [place] [address] Performed By: #### 5 7021-8 ####[facility] LABIA [id number] [place] [address] [place] Platelet mean volume (Bld) [Entitic vol] 10.5 fL Normal 9.0-12.7 [facility] Comment on above: Order Comment: Speci men Type: BLOOD SPECIMENOrdering Facility: [facility] Address: [address] [place] [address] Performed By: #### 5 7021-8 ####[facility] LABCLIA [id number] [place] [address] [place] Platelets (Bld) [#/Vol] 298 10*3/uL Normal 150-400 [facility] Comment on above: Order Comment: Speci men Type: BLOOD SPECIMENOrdering Facility: [facility] Address: [address] [place] [address] Performed By: #### 5 7021-8 ####[facility] LABIA [id number] [place] [address] [place] RBC (Bld) [#/Vol] 3.15 10*6/uL Low 4.20-6.00 [facility] Comment on above: Order Comment: Speci men Type: BLOOD SPECIMENOrdering Facility: [facility] Address: [address] [place] [address] Performed By: #### 5 7021-8 ####[facility] [id number] [place] [address] [place] WBC (Bld) [#/Vol] 10.65 10*3/uL Normal 3.70-11.00 [facility] Comment on above: Order Comment: Speci men Type: BLOOD SPECIMENOrdering Facility: [facility] Address: [address] [place] [address] Performed By: #### 5 7021-8 ####[facility] LABIA [id number] [place] [id number] [place] Comprehensive metabolic 2000 panelon 03-26-2024 Albumin [Mass/Vol] 2.4 g/dL Low 3.9-4.9 [facility] Comment on above: Order Comment: Speci men Type: BLOOD SPECIMENOrdering Facility: [facility] Address: [address] [place] [address] Performed By: #### 2 4323-8, 32498-5, 2777-1 ####[facility] LABCLIA [id number] [address] [address] [place] ALP [Catalytic activity/Vol] 54 U/L Normal 38-113 [facility] Comment on above: Order Comment: Speci men Type: BLOOD SPECIMENOrdering Facility: [facility] Address: [address] [place] [address] Performed By: #### 2 4323-8, 15326-3, 2776-08 ####[facility] LABCLIA [id number] [place] [address] [place] ALT [Catalytic activity/Vol] 51 U/L Normal 10-54 [facility] Comment on above: Order Comment: Speci men Type: BLOOD SPECIMENOrdering Facility: [facility] Address: [address] [place] [address] Performed By: #### 2 4323-8, , 2776-08 ####[facility] LABCLIA [id number] [place] [address] [place] Anion gap [Moles/Vol] 10 mmol/L Normal 8-[address] [facility] Comment on above: Order Comment: Speci men Type: BLOOD SPECIMENOrdering Facility: [facility] Address: [address] [place] [address] Performed By: #### 2 4323-8, , 2776-08 ####[facility] LABCLIA [id number] [place] [address] [place] AST [Catalytic activity/Vol] 53 U/L High 14-40 [facility] Comment on above: Order Comment: Speci men Type: BLOOD SPECIMENOrdering Facility: [facility] Address: [address] [place] [address] Performed By: #### 2 4323-8, 60735-2, 2776- ####[facility] LABCLIA [id number] [place] [id number] [place] Bilirubin [Mass/Vol] 0.3 mg/dL Normal 0.2-1.3 [facility] Comment on above: Order Comment: Speci men Type: BLOOD SPECIMENOrdering Facility: [facility] Address: [address] [place] [address] Performed By: #### 2 4323-8, 19150-0, 2776-08 ####[facility] LABCLIA [id number] [place] [address] [place] Calcium [Mass/Vol] 8.1 mg/dL Low 8.5-10.2 [facility] Comment on above: Order Comment: Speci men Type: BLOOD SPECIMENOrdering Facility: [facility] Address: [address] [place] [address] Performed By: #### 2 4323-8, , 2776-08 ####[facility] LABCLIA [id number] [place] [address] [place] Chloride [Moles/Vol] 107 mmol/L Normal 98-107 [facility] Comment on above: Order Comment: Speci men Type: BLOOD SPECIMENOrdering Facility: [facility] Address: [address] [place] [address] Performed By: #### 2 4323-8, , 2776-08 ####[facility] LABCLIA [id number] [place] [address] [place] CO2 [Moles/Vol] 22 mmol/L Normal 22-30 [facility] Comment on above: Order Comment: Speci men Type: BLOOD SPECIMENOrdering Facility: [facility] Address: [address] [place] [address] Performed By: #### 2 4323-8, , 2776-08 ####[facility] LABCLIA [id number] [place] [id number] [place] Creatinine [Mass/Vol] 1.11 mg/dL Normal 0.73-1.[address] [facility] Comment on above: Order Comment: Elmo patterson Type: BLOOD SPECIMENOrdering Facility: [facility] Address: [address] [place] [address] Performed By: #### 2 4323-8, 70448-2, 2776-08 ####[facility] LABCLIA [id number] [place] [address] [place] Creatinine and Glomerular filtration rate.predicted panel (S/P/Bld) 68 mL/min/1.73m??? Normal >=60 [facility] Comment on above: Order Comment: Elmo patterson Type: BLOOD SPECIMENOrdering Facility: [facility] Address: [address] [place] [address] Result Comment: Ruby mated Glomerular Filtration Rate (eGFR) is calculated using the 2020 CKD-EPI creatinine equation. This equation utilizes serum creatinine, sex, and age as parameters. The creatinine assay has traceable calibration to isotope dilution-mass spectrometry. Refer to KDIGO guidelines for clinical interpretation. In patients with unstable renal function, e.g. those with acute kidney injury, the eGFR may not accurately reflect actual GFR. Performed By: #### 2 4323-8, , 2776-08 ####[facility] LABCLIA [id number] [place] [id number] [place] Glucose [Mass/Vol] 72 mg/dL Low 74-99 [facility] Comment on above: Order Comment: Elmo patterson Type: BLOOD SPECIMENOrdering Facility: [facility] Address: [address] [place] [address] Result Comment: The [place] Diabetes [employer] (ADA) provides guidance for cutoff values for fasting glucose and random glucose. The ADA defines fasting as no caloric intake for at least 8 hours. Fasting plasma glucose results between 100 to 125 mg/dL indicate increased risk for diabetes (prediabetes).Fasting plasma glucose results greater than or equal to 126 mg/dL meet the criteria for diagnosis of diabetes. In the absence of unequivocal hyperglycemia, results should be confirmed by repeat testing. In a patient with classic symptoms of hyperglycemia or hyperglycemic crisis, random plasma glucose results greater than or equal to 200 mg/dL meet the criteria for diagnosis of diabetes.Reference: Standards of Medical Care in Diabetes 2016, [place] [employer]. Diabetes Care. 2016.39(Suppl 1). Performed By: #### 2 4323-8, , 2776-08 ####[facility] LABCLIA [id number] [address] [address] [place] Potassium [Moles/Vol] 4.0 mmol/L Normal 3.7-5.[address] [facility] Comment on above: Order Comment: Speci men Type: BLOOD SPECIMENOrdering Facility: [facility] Address: [address] [place] [address] Performed By: #### 2 4323-8, , 2776-08 ####[facility] LABCLIA [id number] [address] [address] [place] Protein [Mass/Vol] 5.2 g/dL Low 6.3-8.0 [facility] Comment on above: Order Comment: Speci men Type: BLOOD SPECIMENOrdering Facility: [facility] Address: [address] [place] [address] Performed By: #### 2 4323-8, , 2776-08 ####[facility] LABCLIA [id number] [address] [address] [place] Sodium [Moles/Vol] 139 mmol/L Normal 136-144 [facility] Comment on above: Order Comment: Speci men Type: BLOOD SPECIMENOrdering Facility: [facility] Address: [address] [place] [address] Performed By: #### 2 4323-8, , 2776-08 ####[facility] LABCLIA [id number] [address] [address] [place] Urea nitrogen [Mass/Vol] 15 mg/dL Normal 9-24 [facility] Comment on above: Order Comment: Speci men Type: BLOOD SPECIMENOrdering Facility: [facility] Address: [address] [place] [address] Performed By: #### 2 4323-8, 76722-5, 2776-08 ####[facility] LABCLIA [id number] [place] [address] [place] Magnesium SerPl-mCncon 03-26 Magnesium [Mass/Vol] 2.2 mg/dL Normal 1.7-2.3 [facility] Comment on above: Order Comment: Speci men Type: BLOOD SPECIMENOrdering Facility: [facility] Address: [address] [place] [address] Performed By: #### 2 4323-8, , 2776-08 ####[facility] LABIA [id number] [place] [address] [place] Phosphate SerPl-mCncon 03-26 Phosphate [Mass/Vol] 2.9 mg/dL Normal 2.7-4.8 [facility] Comment on above: Order Comment: Speci men Type: BLOOD SPECIMENOrdering Facility: [facility] Address: [address] [place] [address] Performed By: #### 2 4323-8, , 2776-08 ####[facility] LABIA [id number] [place] [address] [place] THERAPY NTon 03-26-2024 THERAPY NT Normal [facility] CBC W Auto Differential pane l (Bld)on 03-25-2024 Basophils (Bld) [#/Vol] 0.07 10*3/uL Normal <0.11 [facility] Comment on above: Order Comment: Speci men Type: BLOOD SPECIMENOrdering Facility: [facility] Address: [address] [place] [address] Performed By: #### 5 7021-8 ####[facility] LABCLIA [id number] [place] [address] [place] Basophils/100 WBC (Bld) 0.5 % Normal [facility] Comment on above: Order Comment: Speci men Type: BLOOD SPECIMENOrdering Facility: [facility] Address: [address] [place] [address] Performed By: #### 5 7021-8 ####[facility] LABCLIA [id number] [place] [address] [place] Differential cell count method Nom (Bld) Auto Normal [facility] Comment on above: Order Comment: Speci men Type: BLOOD SPECIMENOrdering Facility: [facility] Address: [address] [place] [address] Performed By: #### 5 7021-8 ####[facility] LABCLIA [id number] [place] [address] [place] Eosinophils (Bld) [#/Vol] 0.18 10*3/uL Normal <0.46 [facility] Comment on above: Order Comment: Speci men Type: BLOOD SPECIMENOrdering Facility: [facility] Address: [address] [place] [address] Performed By: #### 5 7021-8 ####[facility] LABCLIA [id number] [place] [address] [place] Eosinophils/100 WBC (Bld) 1.4 % Normal [facility] Comment on above: Order Comment: Speci men Type: BLOOD SPECIMENOrdering Facility: [facility] Address: [address] [place] [address] Performed By: #### 5 7021-8 ####[facility] LABCLIA [id number] [place] [address] [place] Erythrocyte distribution width (RBC) [Ratio] 14.1 % Normal 11.5-15.0 [facility] Comment on above: Order Comment: Speci men Type: BLOOD SPECIMENOrdering Facility: [facility] Address: [address] [place] [address] Performed By: #### 5 7021-8 ####[facility] LABCLIA [id number] [place] [address] [place] Hematocrit (Bld) [Volume fraction] 34.3 % Low 39.0-51.0 [facility] Comment on above: Order Comment: Speci men Type: BLOOD SPECIMENOrdering Facility: [facility] Address: [address] [place] [address] Performed By: #### 5 7021-8 ####[facility] LABIA [id number] [place] [address] [place] Hemoglobin (Bld) [Mass/Vol] 11.1 g/dL Low 13.0-17.0 [facility] Comment on above: Order Comment: Speci men Type: BLOOD SPECIMENOrdering Facility: [facility] Address: [address] [place] [address] Performed By: #### 5 7021-8 ####[facility] LABIA [id number] [place] [address] [place] Immature granulocytes (Bld) [#/Vol] 0.48 10*3/uL High <0.10 [facility] Comment on above: Order Comment: Speci men Type: BLOOD SPECIMENOrdering Facility: [facility] Address: [address] [place] [address] Performed By: #### 5 7021-8 ####[facility] LABIA [id number] [place] [address] [place] Immature granulocytes/100 WBC (Bld) 3.7 % Normal [facility] Comment on above: Order Comment: Speci men Type: BLOOD SPECIMENOrdering Facility: [facility] Address: [address] [place] [address] Performed By: #### 5 7021-8 ####[facility] LABIA [id number] [place] [address] [place] Lymphocytes (Bld) [#/Vol] 0.93 10*3/uL Low 1.00-4.00 [facility] Comment on above: Order Comment: Speci men Type: BLOOD SPECIMENOrdering Facility: [facility] Address: [address] [place] [address] Performed By: #### 5 7021-8 ####[facility] LABIA [id number] [place] [address] [place] Lymphocytes/100 WBC (Bld) 7.2 % Normal [facility] Comment on above: Order Comment: Speci men Type: BLOOD SPECIMENOrdering Facility: [facility] Address: [address] [place] [address] Performed By: #### 5 7021-8 ####[facility] LABIA [id number] [place] [address] [place] MCH (RBC) [Entitic mass] 33.1 pg Normal 26.0-34.0 [facility] Comment on above: Order Comment: Speci men Type: BLOOD SPECIMENOrdering Facility: [facility] Address: [address] [place] [address] Performed By: #### 5 7021-8 ####[facility] LABIA [id number] [place] [address] [place] MCHC (RBC) [Mass/Vol] 32.4 g/dL Normal 30.5-36.[address] [facility] Comment on above: Order Comment: Speci men Type: BLOOD SPECIMENOrdering Facility: [facility] Address: [address] [place] [address] Performed By: #### 5 7021-8 ####[facility] LABIA [id number] [place] [address] [place] MCV (RBC) [Entitic vol] 102.4 fL High 80.0-100.0 [facility] Comment on above: Order Comment: Speci men Type: BLOOD SPECIMENOrdering Facility: [facility] Address: [address] [place] [address] Performed By: #### 5 7021-8 ####[facility] LABCLIA [id number] [place] [address] [place] Monocytes (Bld) [#/Vol] 1.23 10*3/uL High <0.87 [facility] Comment on above: Order Comment: Speci men Type: BLOOD SPECIMENOrdering Facility: [facility] Address: [address] [place] [address] Performed By: #### 5 7021-8 ####[facility] LABCLIA [id number] [place] [address] [place] Monocytes/100 WBC (Bld) 9.5 % Normal [facility] Comment on above: Order Comment: Speci men Type: BLOOD SPECIMENOrdering Facility: [facility] Address: [address] [place] [address] Performed By: #### 5 7021-8 ####[facility] LABCLIA [id number] [place] [address] [place] Neutrophils (Bld) [#/Vol] 10.04 10*3/uL High 1.45-7.50 [facility] Comment on above: Order Comment: Speci men Type: BLOOD SPECIMENOrdering Facility: [facility] Address: [address] [place] [address] Performed By: #### 5 7021-8 ####[facility] LABCLIA [id number] [place] [address] [place] Neutrophils/100 WBC (Bld) 77.7 % Normal [facility] Comment on above: Order Comment: Speci men Type: BLOOD SPECIMENOrdering Facility: [facility] Address: [address] [place] [address] Performed By: #### 5 7021-8 ####[facility] LABCLIA [id number] [place] [address] [place] Nucleated RBC (Bld) [#/Vol] 10*3/uL Normal <0.01 [facility] Comment on above: Order Comment: Speci men Type: BLOOD SPECIMENOrdering Facility: [facility] Address: [address] [place] [address] Performed By: #### 5 7021-8 ####[facility] LABCLIA [id number] [place] [address] [place] Nucleated RBC/100 WBC (Bld) [Ratio] 0.0 /100 WBC Normal [facility] Comment on above: Order Comment: Speci men Type: BLOOD SPECIMENOrdering Facility: [facility] Address: [address] [place] [address] Performed By: #### 5 7021-8 ####[facility] LABCLIA [id number] [place] [address] [place] Platelet mean volume (Bld) [Entitic vol] 10.3 fL Normal 9.0-12.7 [facility] Comment on above: Order Comment: Speci men Type: BLOOD SPECIMENOrdering Facility: [facility] Address: [address] [place] [address] Performed By: #### 5 7021-8 ####[facility] LABCLIA [id number] [place] [address] [place] Platelets (Bld) [#/Vol] 292 10*3/uL Normal 150-400 [facility] Comment on above: Order Comment: Speci men Type: BLOOD SPECIMENOrdering Facility: [facility] Address: [address] [place] [address] Performed By: #### 5 7021-8 ####[facility] LABCLIA [id number] [place] [address] [place] RBC (Bld) [#/Vol] 3.35 10*6/uL Low 4.20-6.00 [facility] Comment on above: Order Comment: Speci men Type: BLOOD SPECIMENOrdering Facility: [facility] Address: [address] [place] [address] Performed By: #### 5 7021-8 ####[facility] LABCLIA [id number] [address] [address] [place] WBC (Bld) [#/Vol] 12.93 10*3/uL High 3.70-11.00 [facility] Comment on above: Order Comment: Speci men Type: BLOOD SPECIMENOrdering Facility: [facility] Address: [address] [place] [address] Performed By: #### 5 7021-8 ####[facility] LABCLIA [id number] [place] [address] [place] CONSULT PROGon 03-25-2024 CONSULT PROG Normal [facility] Comprehensive metabolic 2000 panelon 03-25-2024 Albumin [Mass/Vol] 2.7 g/dL Low 3.9-4.9 [facility] Comment on above: Order Comment: Speci men Type: BLOOD SPECIMENOrdering Facility: [facility] Address: [address] [place] [address] Performed By: #### 2 777-1, 91357-3, ####[facility] LABCLIA [id number] [place] [address] [place] ALP [Catalytic activity/Vol] 57 U/L Normal 38-113 [facility] Comment on above: Order Comment: Speci men Type: BLOOD SPECIMENOrdering Facility: [facility] Address: [address] [place], [place] [address] Performed By: #### 2 777-1, 80225-3, ####[facility] LABCLIA [id number] [address] [address] [place] ALT [Catalytic activity/Vol] 52 U/L Normal 10-54 [facility] Comment on above: Order Comment: Speci men Type: BLOOD SPECIMENOrdering Facility: [facility] Address: [address] [place] [address] Performed By: #### 2 777-1, , ####[facility] LABCLIA [id number] [place] [address] [place] Anion gap [Moles/Vol] 9 mmol/L Normal 8-[address] [facility] Comment on above: Order Comment: Speci men Type: BLOOD SPECIMENOrdering Facility: [facility] Address: [address] [place] [address] Performed By: #### 2 777-1, , ####[facility] LABCLIA [id number] [place] [address] [place] AST [Catalytic activity/Vol] 51 U/L High 14-40 [facility] Comment on above: Order Comment: Speci men Type: BLOOD SPECIMENOrdering Facility: [facility] Address: [address] [place] [address] Performed By: #### 2 777-1, , ####[facility] LABIA [id number] [place] [address] [place] Bilirubin [Mass/Vol] 0.4 mg/dL Normal 0.2-1.3 [facility] Comment on above: Order Comment: Speci men Type: BLOOD SPECIMENOrdering Facility: [facility] Address: [address] [place], [place] [address] Performed By: #### 2 777-1, , ####[facility] LABIA [id number] [place] [address] [place] Calcium [Mass/Vol] 8.0 mg/dL Low 8.5-10.2 [facility] Comment on above: Order Comment: Speci men Type: BLOOD SPECIMENOrdering Facility: [facility] Address: [address] [place], [place] [address] Performed By: #### 2 777-1, 72274-9, ####[facility] LABCLIA [id number] [address] [address] [place] Chloride [Moles/Vol] 106 mmol/L Normal 98-107 [facility] Comment on above: Order Comment: Speci men Type: BLOOD SPECIMENOrdering Facility: [facility] Address: [address] [place] [address] Performed By: #### 2 777-1, 90049-0, ####[facility] LABIA [id number] [place] [address] [place] CO2 [Moles/Vol] 23 mmol/L Normal 22-30 [facility] Comment on above: Order Comment: Speci men Type: BLOOD SPECIMENOrdering Facility: [facility] Address: [address] [place] [address] Performed By: #### 2 777-1, 72170-6, ####[facility] LABIA [id number] [place] [address] [place] Creatinine [Mass/Vol] 1.21 mg/dL Normal 0.73-1.[address] [facility] Comment on above: Order Comment: Speci men Type: BLOOD SPECIMENOrdering Facility: [facility] Address: [address] [place] [address] Performed By: #### 2 777-1, 80868-9, ####[facility] LABIA [id number] [place] [id number] [place] Creatinine and Glomerular filtration rate.predicted panel (S/P/Bld) 61 mL/min/1.73m??? Normal >=60 [facility] Comment on above: Order Comment: Speci men Type: BLOOD SPECIMENOrdering Facility: [facility] Address: [address] [place] [address] Result Comment: Ruby mated Glomerular Filtration Rate (eGFR) is calculated using the 2020 CKD-EPI creatinine equation. This equation utilizes serum creatinine, sex, and age as parameters. The creatinine assay has traceable calibration to isotope dilution-mass spectrometry. Refer to KDIGO guidelines for clinical interpretation. In patients with unstable renal function, e.g. those with acute kidney injury, the eGFR may not accurately reflect actual GFR. Performed By: #### 2 777-1, 51691-1, ####[facility] LABCLIA [id number] [address] [address] [place] Glucose [Mass/Vol] 102 mg/dL High 74-99 [facility] Comment on above: Order Comment: Speci men Type: BLOOD SPECIMENOrdering Facility: [facility] Address: [address] [place], [place] [address] Result Comment: The [place] [employer] (ADA) provides guidance for cutoff values for fasting glucose and random glucose. The ADA defines fasting as no caloric intake for at least 8 hours. Fasting plasma glucose results between 100 to 125 mg/dL indicate increased risk for diabetes (prediabetes).Fasting plasma glucose results greater than or equal to 126 mg/dL meet the criteria for diagnosis of diabetes. In the absence of unequivocal hyperglycemia, results should be confirmed by repeat testing. In a patient with classic symptoms of hyperglycemia or hyperglycemic crisis, random plasma glucose results greater than or equal to 200 mg/dL meet the criteria for diagnosis of diabetes.Reference: Standards of Medical Care in Diabetes 2016, [place] [employer]. Diabetes Care. 2016.39(Suppl 1). Performed By: #### 2 777-1, 31418-5, ####[facility] LABCLIA [id number] [address] [address] [place] Potassium [Moles/Vol] 4.1 mmol/L Normal 3.7-5.[address] [facility] Comment on above: Order Comment: Cresencioi men Type: BLOOD SPECIMENOrdering Facility: [facility] Address: [address] [place] [address] Performed By: #### 2 777-1, , ####[facility] LABCLIA [id number] [address] [address] [place] Protein [Mass/Vol] 5.4 g/dL Low 6.3-8.0 [facility] Comment on above: Order Comment: Speci men Type: BLOOD SPECIMENOrdering Facility: [facility] Address: [address] [place] [address] Performed By: #### 2 777-1, , ####[facility] LABCLIA [id number] [address] [address] [place] Sodium [Moles/Vol] 138 mmol/L Normal 136-144 [facility] Comment on above: Order Comment: Speci men Type: BLOOD SPECIMENOrdering Facility: [facility] Address: [address] [place] [address] Performed By: #### 2 777-1, , ####[facility] LABCLIA [id number] [address] [address] [place] Urea nitrogen [Mass/Vol] 14 mg/dL Normal 9-24 [facility] Comment on above: Order Comment: Speci men Type: BLOOD SPECIMENOrdering Facility: [facility] Address: [address] [place] [address] Performed By: #### 2 777-1, 76047-7, ####[facility] LABCLIA [id number] [address] [address] [place] Magnesium SerPl-mCncon 03-25 Magnesium [Mass/Vol] 2.2 mg/dL Normal 1.7-2.3 [facility] Comment on above: Order Comment: Speci men Type: BLOOD SPECIMENOrdering Facility: [facility] Address: [address] [place] [address] Performed By: #### 2 777-1, 69278-2, ####[facility] LABIA [id number] [place] [address] [place] Phosphate SerPl-mCncon 03-25 Phosphate [Mass/Vol] 3.1 mg/dL Normal 2.7-4.8 [facility] Comment on above: Order Comment: Speci men Type: BLOOD SPECIMENOrdering Facility: [facility] Address: [address] [place] [address] Performed By: #### 2 777-1, 07399-2, 50589-3 ####[facility] LABIA [id number] [place] [address] [place] SARS-CoV-2 RNA Resp Ql SHERRY+p robeon 03-25-2024 SARS-CoV-2 (COVID-19) RNA SHERRY+probe Ql (Resp) COVID 19 RESULT: Not detected The method used is RT-PCR or an equivalent NAAT method. Reference Range(the expected result in uninfected individuals): Not detected Normal [facility] Comment on above: Performed By: #### 9 4500-6 ####[facility] [id number] [place] [address] [place] THERAPY NTon 03-25-2024 THERAPY NT Normal [facility] CASE MANAGEMon 03-24-2024 CASE MANAGEM Normal [facility] CBC W Auto Differential pane l (Bld)on 03-24-2024 Basophils (Bld) [#/Vol] 0.00 10*3/uL Normal <0.11 [facility] Comment on above: Order Comment: Speci men Type: BLOOD SPECIMENOrdering Facility: [facility] Address: [address] [place] [address] Performed By: #### 5 7021-8 ####[facility] LABIA [id number] [place] [address] [place] Basophils/100 WBC (Bld) 0.0 % Normal [facility] Comment on above: Order Comment: Speci men Type: BLOOD SPECIMENOrdering Facility: [facility] Address: [address] [place] [address] Performed By: #### 5 7021-8 ####[facility] LABCLIA [id number] [place] [address] [place] Differential cell count method Nom (Bld) Manual Normal [facility] Comment on above: Order Comment: Speci men Type: BLOOD SPECIMENOrdering Facility: [facility] Address: [address] [place] [address] Performed By: #### 5 7021-8 ####[facility] LABCLIA [id number] [place] [address] [place] Eosinophils (Bld) [#/Vol] 0.21 10*3/uL Normal <0.46 [facility] Comment on above: Order Comment: Speci men Type: BLOOD SPECIMENOrdering Facility: [facility] Address: [address] [place] [address] Performed By: #### 5 7021-8 ####[facility] LABIA [id number] [place] [address] [place] Eosinophils/100 WBC (Bld) 1.7 % Normal [facility] Comment on above: Order Comment: Speci men Type: BLOOD SPECIMENOrdering Facility: [facility] Address: [address] [place] [address] Performed By: #### 5 7021-8 ####[facility] LABCLIA [id number] [place] [address] [place] Erythrocyte distribution width (RBC) [Ratio] 14.2 % Normal 11.5-15.0 [facility] Comment on above: Order Comment: Speci men Type: BLOOD SPECIMENOrdering Facility: [facility] Address: [address] [place] [address] Performed By: #### 5 7021-8 ####[facility] LABCLIA [id number] [place] [id number] [place] Hematocrit (Bld) [Volume fraction] 34.7 % Low 39.0-51.0 [facility] Comment on above: Order Comment: Speci men Type: BLOOD SPECIMENOrdering Facility: [facility] Address: [address] [place] [address] Performed By: #### 5 7021-8 ####[facility] LABCLIA [id number] [place] [address] [place] Hemoglobin (Bld) [Mass/Vol] 11.6 g/dL Low 13.0-17.0 [facility] Comment on above: Order Comment: Speci men Type: BLOOD SPECIMENOrdering Facility: [facility] Address: [address] [place] [address] Performed By: #### 5 7021-8 ####[facility] LABCLIA [id number] [place] [address] [place] Lymphocytes (Bld) [#/Vol] 0.44 10*3/uL Low 1.00-4.00 [facility] Comment on above: Order Comment: Speci men Type: BLOOD SPECIMENOrdering Facility: [facility] Address: [address] [place] [address] Performed By: #### 5 7021-8 ####[facility] LABCLIA [id number] [place] [address] [place] Lymphocytes/100 WBC (Bld) 3.5 % Normal [facility] Comment on above: Order Comment: Speci men Type: BLOOD SPECIMENOrdering Facility: [facility] Address: [address] [place] [address] Performed By: #### 5 7021-8 ####[facility] LABCLIA [id number] [place] [address] [place] MCH (RBC) [Entitic mass] 33.7 pg Normal 26.0-34.0 [facility] Comment on above: Order Comment: Speci men Type: BLOOD SPECIMENOrdering Facility: [facility] Address: [address] [place] [address] Performed By: #### 5 7021-8 ####[facility] LABCLIA [id number] [place] [address] [place] MCHC (RBC) [Mass/Vol] 33.4 g/dL Normal 30.5-36.[address] [facility] Comment on above: Order Comment: Speci men Type: BLOOD SPECIMENOrdering Facility: [facility] Address: [address] [place] [address] Performed By: #### 5 7021-8 ####[facility] LABCLIA [id number] [place] [address] [place] MCV (RBC) [Entitic vol] 100.9 fL High 80.0-100.0 [facility] Comment on above: Order Comment: Speci men Type: BLOOD SPECIMENOrdering Facility: [facility] Address: [address] [place] [address] Performed By: #### 5 7021-8 ####[facility] LABCLIA [id number] [place] [address] [place] Metamyelocytes/100 WBC (Bld) 0.9 % Normal [facility] Comment on above: Order Comment: Speci men Type: BLOOD SPECIMENOrdering Facility: [facility] Address: [address] [place] [address] Performed By: #### 5 7021-8 ####[facility] LABCLIA [id number] [place] [address] [place] Monocytes (Bld) [#/Vol] 0.88 10*3/uL High <0.87 [facility] Comment on above: Order Comment: Speci men Type: BLOOD SPECIMENOrdering Facility: [facility] Address: [address] [place] [address] Performed By: #### 5 7021-8 ####[facility] LABCLIA [id number] [place] [address] [place] Monocytes/100 WBC (Bld) 7.0 % Normal [facility] Comment on above: Order Comment: Speci men Type: BLOOD SPECIMENOrdering Facility: [facility] Address: [address] [place] [address] Performed By: #### 5 7021-8 ####[facility] LABCLIA [id number] [place] [address] [place] MYELO% 1.7 % Normal [facility] Comment on above: Order Comment: Speci men Type: BLOOD SPECIMENOrdering Facility: [facility] Address: [address] [place] [address] Performed By: #### 5 7021-8 ####[facility] LABCLIA [id number] [place] [address] [place] Neutrophils (Bld) [#/Vol] 10.73 10*3/uL High 1.45-7.50 [facility] Comment on above: Order Comment: Speci men Type: BLOOD SPECIMENOrdering Facility: [facility] Address: [address] [place] [address] Performed By: #### 5 7021-8 ####[facility] LABCLIA [id number] [place] [address] [place] Neutrophils/100 WBC (Bld) 85.2 % Normal [facility] Comment on above: Order Comment: Speci men Type: BLOOD SPECIMENOrdering Facility: [facility] Address: [address] [place] [address] Performed By: #### 5 7021-8 ####[facility] LABCLIA [id number] [place] [address] [place] Nucleated RBC (Bld) [#/Vol] 10*3/uL Normal <0.01 [facility] Comment on above: Order Comment: Speci men Type: BLOOD SPECIMENOrdering Facility: [facility] Address: [address] [place] [address] Performed By: #### 5 7021-8 ####[facility] LABCLIA [id number] [place] [address] [place] Nucleated RBC/100 WBC (Bld) [Ratio] 0.0 /100 WBC Normal [facility] Comment on above: Order Comment: Speci men Type: BLOOD SPECIMENOrdering Facility: [facility] Address: [address] [place] [address] Performed By: #### 5 7021-8 ####[facility] LABIA [id number] [place] [address] [place] Ovalocytes LM Ql (Bld) Few Normal Cl [facility] Comment on above: Order Comment: Speci men Type: BLOOD SPECIMENOrdering Facility: [facility] Address: [address] [place] [address] Performed By: #### 5 7021-8 ####[facility] LABIA [id number] [place] [address] [place] Platelet mean volume (Bld) [Entitic vol] 10.6 fL Normal 9.0-12.7 [facility] Comment on above: Order Comment: Speci men Type: BLOOD SPECIMENOrdering Facility: [facility] Address: [address] [place] [address] Performed By: #### 5 7021-8 ####[facility] LABIA [id number] [place] [address] [place] Platelets (Bld) [#/Vol] 280 10*3/uL Normal 150-400 [facility] Comment on above: Order Comment: Speci men Type: BLOOD SPECIMENOrdering Facility: [facility] Address: [address] [place] [address] Performed By: #### 5 7021-8 ####[facility] LABCLIA [id number] [place] [id number] [place] Platelets Estimate (Bld) [#/Vol] Adequate Normal [facility] Comment on above: Order Comment: Speci men Type: BLOOD SPECIMENOrdering Facility: [facility] Address: [address] [place] [address] Performed By: #### 5 7021-8 ####[facility] LABCLIA [id number] [place] [address] [place] Polychromasia LM Ql (Bld) Slight Normal [facility] Comment on above: Order Comment: Speci men Type: BLOOD SPECIMENOrdering Facility: [facility] Address: [address] [place] [address] Performed By: #### 5 7021-8 ####[facility] LABCLIA [id number] [place] [address] [place] RBC (Bld) [#/Vol] 3.44 10*6/uL Low 4.20-6.00 [facility] Comment on above: Order Comment: Speci men Type: BLOOD SPECIMENOrdering Facility: [facility] Address: [address] [place] [address] Performed By: #### 5 7021-8 ####[facility] LABCLIA [id number] [place] [address] [place] RBC FRAGMENTS Few Abnormal None Seen [facility] Comment on above: Order Comment: Speci men Type: BLOOD SPECIMENOrdering Facility: [facility] Address: [address] [place] [address] Performed By: #### 5 7021-8 ####[facility] LABCLIA [id number] [place] [address] [place] RED CELL MORPH Reviewed: see result s of individual morphologies Normal [facility] Comment on above: Order Comment: Speci men Type: BLOOD SPECIMENOrdering Facility: [facility] Address: [address] [place] [address] Performed By: #### 5 7021-8 ####[facility] LABCLIA [id number] [address] [address] [place] WBC (Bld) [#/Vol] 12.59 10*3/uL High 3.70-11.00 [facility] Comment on above: Order Comment: Speci men Type: BLOOD SPECIMENOrdering Facility: [facility] Address: [address] [place] [address] Performed By: #### 5 7021-8 ####[facility] LABCLIA [id number] [address] [address] [place] WBC Left Shift Ql (Bld) Present Normal [facility] Comment on above: Order Comment: Speci men Type: BLOOD SPECIMENOrdering Facility: [facility] Address: [address] [place] [address] Performed By: #### 5 7021-8 ####[facility] LABCLIA [id number] [address] [address] [place] CONSULT PROGon 03-24-2024 CONSULT PROG Normal [facility] Comprehensive metabolic 2000 panelon 03-24-2024 Albumin [Mass/Vol] 2.8 g/dL Low 3.9-4.9 [facility] Comment on above: Order Comment: Speci men Type: BLOOD SPECIMENOrdering Facility: [facility] Address: [address] [place] [address] Performed By: #### 2 4323-8, 2776-08, ####[facility] LABCLIA [id number] [address] [address] [place] ALP [Catalytic activity/Vol] 60 U/L Normal 38-113 [facility] Comment on above: Order Comment: Speci men Type: BLOOD SPECIMENOrdering Facility: [facility] Address: [address] [place] [address] Performed By: #### 2 4323-8, 277-, ####[facility] LABCLIA [id number] [address] [address] [place] ALT [Catalytic activity/Vol] 52 U/L Normal 10-54 [facility] Comment on above: Order Comment: Speci men Type: BLOOD SPECIMENOrdering Facility: [facility] Address: [address] [place] [address] Performed By: #### 2 4323-8, 2777-1, ####[facility] LABCLIA [id number] [place] [id number] [place] Anion gap [Moles/Vol] 9 mmol/L Normal 8-[address] [facility] Comment on above: Order Comment: Speci men Type: BLOOD SPECIMENOrdering Facility: [facility] Address: [address] [place] [address] Performed By: #### 2 4323-8, 27701-31, ####[facility] LABCLIA [id number] [place] [address] [place] AST [Catalytic activity/Vol] 53 U/L High 14-40 [facility] Comment on above: Order Comment: Speci men Type: BLOOD SPECIMENOrdering Facility: [facility] Address: [address] [place] [address] Performed By: #### 2 4323-8, 2777, ####[facility] LABCLIA [id number] [place] [id number] [place] Bilirubin [Mass/Vol] 0.4 mg/dL Normal 0.2-1.3 [facility] Comment on above: Order Comment: Speci men Type: BLOOD SPECIMENOrdering Facility: [facility] Address: [address] [place] [address] Performed By: #### 2 4323-8, 2777-1, ####[facility] LABCLIA [id number] [place] [id number] [place] Calcium [Mass/Vol] 8.1 mg/dL Low 8.5-10.2 [facility] Comment on above: Order Comment: Speci men Type: BLOOD SPECIMENOrdering Facility: [facility] Address: [address] [place] [address] Performed By: #### 2 4323-8, 2771, ####[facility] LABCLIA [id number] [place] [address] [place] Chloride [Moles/Vol] 105 mmol/L Normal 98-107 [facility] Comment on above: Order Comment: Speci men Type: BLOOD SPECIMENOrdering Facility: [facility] Address: [address] [place] [address] Performed By: #### 2 4323-8, 27701-31, ####[facility] LABCLIA [id number] [place] [address] [place] CO2 [Moles/Vol] 24 mmol/L Normal 22-30 [facility] Comment on above: Order Comment: Speci men Type: BLOOD SPECIMENOrdering Facility: [facility] Address: [address] [place] [address] Performed By: #### 2 4323-8, 27701-31, ####[facility] LABCLIA [id number] [place] [address] [place] Creatinine [Mass/Vol] 1.15 mg/dL Normal 0.73-1.[address] [facility] Comment on above: Order Comment: Speci men Type: BLOOD SPECIMENOrdering Facility: [facility] Address: [address] [place] [address] Performed By: #### 2 4323-8, 277-1, ####[facility] LABCLIA [id number] [place] [id number] [place] Creatinine and Glomerular filtration rate.predicted panel (S/P/Bld) 65 mL/min/1.73m??? Normal >=60 [facility] Comment on above: Order Comment: Elmo patterson Type: BLOOD SPECIMENOrdering Facility: [facility] Address: [address] [place] [address] Result Comment: Ruby mated Glomerular Filtration Rate (eGFR) is calculated using the 2020 CKD-EPI creatinine equation. This equation utilizes serum creatinine, sex, and age as parameters. The creatinine assay has traceable calibration to isotope dilution-mass spectrometry. Refer to KDIGO guidelines for clinical interpretation. In patients with unstable renal function, e.g. those with acute kidney injury, the eGFR may not accurately reflect actual GFR. Performed By: #### 2 4323-8, 2777-, ####[facility] LABIA [id number] [place] [address] [place] Glucose [Mass/Vol] 84 mg/dL Normal 74-99 [facility] Comment on above: Order Comment: Elmo patterson Type: BLOOD SPECIMENOrdering Facility: [facility] Address: [address] [place] [address] Result Comment: The [place] [employer] (ADA) provides guidance for cutoff values for fasting glucose and random glucose. The ADA defines fasting as no caloric intake for at least 8 hours. Fasting plasma glucose results between 100 to 125 mg/dL indicate increased risk for diabetes (prediabetes).Fasting plasma glucose results greater than or equal to 126 mg/dL meet the criteria for diagnosis of diabetes. In the absence of unequivocal hyperglycemia, results should be confirmed by repeat testing. In a patient with classic symptoms of hyperglycemia or hyperglycemic crisis, random plasma glucose results greater than or equal to 200 mg/dL meet the criteria for diagnosis of diabetes.Reference: Standards of Medical Care in Diabetes 2016, [place] [employer]. Diabetes Care. 2016.39(Suppl 1). Performed By: #### 2 4323-8, 2777-, ####[facility] LABIA [id number] [address] [address] [place] Potassium [Moles/Vol] 4.1 mmol/L Normal 3.7-5.[address] [facility] Comment on above: Order Comment: Speci men Type: BLOOD SPECIMENOrdering Facility: [facility] Address: [address] [place] [address] Performed By: #### 2 4323-8, 2776-08, ####[facility] LABCLIA [id number] [address] [address] [place] Protein [Mass/Vol] 5.5 g/dL Low 6.3-8.0 [facility] Comment on above: Order Comment: Speci men Type: BLOOD SPECIMENOrdering Facility: [facility] Address: [address] [place] [address] Performed By: #### 2 4323-8, 2776-08, ####[facility] LABCLIA [id number] [place] [id number] [place] Sodium [Moles/Vol] 138 mmol/L Normal 136-144 [facility] Comment on above: Order Comment: Speci men Type: BLOOD SPECIMENOrdering Facility: [facility] Address: [address] [place] [address] Performed By: #### 2 4323-8, 2776-08, ####[facility] LABCLIA [id number] [place] [id number] [place] Urea nitrogen [Mass/Vol] 12 mg/dL Normal 9-24 [facility] Comment on above: Order Comment: Speci men Type: BLOOD SPECIMENOrdering Facility: [facility] Address: [address] [place], [place] [address] Performed By: #### 2 4323-8, 2776-08, ####[facility] LABCLIA [id number] [address] [address] [place] Magnesium SerPl-mCncon 03-24 Magnesium [Mass/Vol] 2.1 mg/dL Normal 1.7-2.3 [facility] Comment on above: Order Comment: Speci men Type: BLOOD SPECIMENOrdering Facility: [facility] Address: [address] [place] [address] Performed By: #### 2 4323-8, 27701-31, ####[facility] LABCLIA [id number] [place] [id number] [place] Phosphate SerPl-mCncon 03-24 Phosphate [Mass/Vol] 2.8 mg/dL Normal 2.7-4.8 [facility] Comment on above: Order Comment: Speci men Type: BLOOD SPECIMENOrdering Facility: [facility] Address: [address] [place] [address] Performed By: #### 2 4323-8, 2776-08, ####[facility] LABCLIA [id number] [place] [id number] [place] THERAPY NTon 03-24-2024 THERAPY NT Normal [facility] XR CHEST 1V FRONTAL PORTon 0 03-24-2024 XR CHEST 1V FRONTAL PORT Normal [facility] CASE MANAGEMon 03-23-2024 CASE MANAGEM Normal [facility] CBC W Auto Differential pane l (Bld)on 03-23-2024 Basophils (Bld) [#/Vol] 0.04 10*3/uL Normal <0.11 [facility] Comment on above: Order Comment: Speci men Type: BLOOD SPECIMENOrdering Facility: [facility] Address: [address] [place] [address] Performed By: #### 5 7021-8 ####[facility] LABCLIA [id number] [place] [address] [place] Basophils/100 WBC (Bld) 0.3 % Normal [facility] Comment on above: Order Comment: Speci men Type: BLOOD SPECIMENOrdering Facility: [facility] Address: [address] [place] [address] Performed By: #### 5 7021-8 ####[facility] LABCLIA [id number] [place] [address] [place] Differential cell count method Nom (Bld) Auto Normal [facility] Comment on above: Order Comment: Speci men Type: BLOOD SPECIMENOrdering Facility: [facility] Address: [address] [place] [address] Performed By: #### 5 7021-8 ####[facility] LABCLIA [id number] [place] [address] [place] Eosinophils (Bld) [#/Vol] 0.16 10*3/uL Normal <0.46 [facility] Comment on above: Order Comment: Speci men Type: BLOOD SPECIMENOrdering Facility: [facility] Address: [address] [place] [address] Performed By: #### 5 7021-8 ####[facility] LABCLIA [id number] [place] [address] [place] Eosinophils/100 WBC (Bld) 1.3 % Normal [facility] Comment on above: Order Comment: Speci men Type: BLOOD SPECIMENOrdering Facility: [facility] Address: [address] [place] [address] Performed By: #### 5 7021-8 ####[facility] LABCLIA [id number] [place] [address] [place] Erythrocyte distribution width (RBC) [Ratio] 13.9 % Normal 11.5-15.0 [facility] Comment on above: Order Comment: Speci men Type: BLOOD SPECIMENOrdering Facility: [facility] Address: [address] [place] [address] Performed By: #### 5 7021-8 ####[facility] LABCLIA [id number] [place] [address] [place] Hematocrit (Bld) [Volume fraction] 36.6 % Low 39.0-51.0 [facility] Comment on above: Order Comment: Speci men Type: BLOOD SPECIMENOrdering Facility: [facility] Address: [address] [place] [address] Performed By: #### 5 7021-8 ####[facility] LABCLIA [id number] [place] [address] [place] Hemoglobin (Bld) [Mass/Vol] 12.0 g/dL Low 13.0-17.0 [facility] Comment on above: Order Comment: Speci men Type: BLOOD SPECIMENOrdering Facility: [facility] Address: [address] [place] [address] Performed By: #### 5 7021-8 ####[facility] LABCLIA [id number] [place] [address] [place] Immature granulocytes (Bld) [#/Vol] 0.54 10*3/uL High <0.10 [facility] Comment on above: Order Comment: Speci men Type: BLOOD SPECIMENOrdering Facility: [facility] Address: [address] [place] [address] Performed By: #### 5 7021-8 ####[facility] LABCLIA [id number] [place] [address] [place] Immature granulocytes/100 WBC (Bld) 4.4 % Normal [facility] Comment on above: Order Comment: Speci men Type: BLOOD SPECIMENOrdering Facility: [facility] Address: [address] [place] [address] Performed By: #### 5 7021-8 ####[facility] LABIA [id number] [place] [address] [place] Lymphocytes (Bld) [#/Vol] 0.61 10*3/uL Low 1.00-4.00 [facility] Comment on above: Order Comment: Speci men Type: BLOOD SPECIMENOrdering Facility: [facility] Address: [address] [place] [address] Performed By: #### 5 7021-8 ####[facility] LABCLIA [id number] [place] [address] [place] Lymphocytes/100 WBC (Bld) 5.0 % Normal [facility] Comment on above: Order Comment: Speci men Type: BLOOD SPECIMENOrdering Facility: [facility] Address: [address] [place] [address] Performed By: #### 5 7021-8 ####[facility] LABIA [id number] [place] [address] [place] MCH (RBC) [Entitic mass] 32.9 pg Normal 26.0-34.0 [facility] Comment on above: Order Comment: Speci men Type: BLOOD SPECIMENOrdering Facility: [facility] Address: [address] [place] [address] Performed By: #### 5 7021-8 ####[facility] LABIA [id number] [place] [address] [place] MCHC (RBC) [Mass/Vol] 32.8 g/dL Normal 30.5-36.[address] [facility] Comment on above: Order Comment: Speci men Type: BLOOD SPECIMENOrdering Facility: [facility] Address: [address] [place] [address] Performed By: #### 5 7021-8 ####[facility] LABIA [id number] [place] [address] [place] MCV (RBC) [Entitic vol] 100.3 fL High 80.0-100.0 [facility] Comment on above: Order Comment: Speci men Type: BLOOD SPECIMENOrdering Facility: [facility] Address: [address] [place] [address] Performed By: #### 5 7021-8 ####[facility] LABIA [id number] [place] [address] [place] Monocytes (Bld) [#/Vol] 0.90 10*3/uL High <0.87 [facility] Comment on above: Order Comment: Speci men Type: BLOOD SPECIMENOrdering Facility: [facility] Address: [facility] [place] [address] Performed By: #### 5 7021-8 ####[facility] LABCLIA [id number] [place] [address] [place] Monocytes/100 WBC (Bld) 7.3 % Normal [facility] Comment on above: Order Comment: Speci men Type: BLOOD SPECIMENOrdering Facility: [facility] Address: [address] [place] [address] Performed By: #### 5 7021-8 ####[facility] LABCLIA [id number] [place] [address] [place] Neutrophils (Bld) [#/Vol] 10.03 10*3/uL High 1.45-7.50 [facility] Comment on above: Order Comment: Speci men Type: BLOOD SPECIMENOrdering Facility: [facility] Address: [address] [place] [address] Performed By: #### 5 7021-8 ####[facility] LABCLIA [id number] [place] [address] [place] Neutrophils/100 WBC (Bld) 81.7 % Normal [facility] Comment on above: Order Comment: Speci men Type: BLOOD SPECIMENOrdering Facility: [facility] Address: [address] [place] [address] Performed By: #### 5 7021-8 ####[facility] LABCLIA [id number] [place] [address] [place] Nucleated RBC (Bld) [#/Vol] 10*3/uL Normal <0.01 [facility] Comment on above: Order Comment: Speci men Type: BLOOD SPECIMENOrdering Facility: [facility] Address: [address] [place] [address] Performed By: #### 5 7021-8 ####[facility] LABCLIA [id number] [place] [address] [place] Nucleated RBC/100 WBC (Bld) [Ratio] 0.0 /100 WBC Normal [facility] Comment on above: Order Comment: Speci men Type: BLOOD SPECIMENOrdering Facility: [facility] Address: [address] [place] [address] Performed By: #### 5 7021-8 ####[facility] LABIA [id number] [place] [address] [place] Platelet mean volume (Bld) [Entitic vol] 10.5 fL Normal 9.0-12.7 [facility] Comment on above: Order Comment: Speci men Type: BLOOD SPECIMENOrdering Facility: [facility] Address: [address] [place] [address] Performed By: #### 5 7021-8 ####[facility] LABIA [id number] [place] [address] [place] Platelets (Bld) [#/Vol] 260 10*3/uL Normal 150-400 [facility] Comment on above: Order Comment: Speci men Type: BLOOD SPECIMENOrdering Facility: [facility] Address: [address] [place] [address] Performed By: #### 5 7021-8 ####[facility] LABIA [id number] [place] [address] [place] RBC (Bld) [#/Vol] 3.65 10*6/uL Low 4.20-6.00 [facility] Comment on above: Order Comment: Speci men Type: BLOOD SPECIMENOrdering Facility: [facility] Address: [address] [place] [address] Performed By: #### 5 7021-8 ####[facility] LABIA [id number] [address] [address] [place] WBC (Bld) [#/Vol] 12.28 10*3/uL High 3.70-11.00 [facility] Comment on above: Order Comment: Speci men Type: BLOOD SPECIMENOrdering Facility: [facility] Address: [address] [place] [address] Performed By: #### 5 7021-8 ####[facility] LABCLIA [id number] [place] [address] [place] CONSULTon 03-23-2024 CONSULT Normal [facility] CONSULT Normal [facility] CONSULT PROGon 03-23-2024 CONSULT PROG Normal [facility] CONSULT PROG Normal [facility] Comprehensive metabolic 2000 panelon 03-23-2024 Albumin [Mass/Vol] 2.7 g/dL Low 3.9-4.9 [facility] Comment on above: Order Comment: Speci men Type: BLOOD SPECIMENOrdering Facility: [facility] Address: [address] [place] [address] Performed By: #### 2 777-1, 67619-9, ####[facility] LABCLIA [id number] [place] [address] [place] ALP [Catalytic activity/Vol] 60 U/L Normal 38-113 [facility] Comment on above: Order Comment: Speci men Type: BLOOD SPECIMENOrdering Facility: [facility] Address: [address] [place] [address] Performed By: #### 2 777-1, 42391-5, ####[facility] LABCLIA [id number] [place] [id number] [place] ALT [Catalytic activity/Vol] 45 U/L Normal 10-54 [facility] Comment on above: Order Comment: Speci men Type: BLOOD SPECIMENOrdering Facility: [facility] Address: [address] [place] [address] Performed By: #### 2 777-1, 40311-4, ####[facility] LABCLIA [id number] [address] [address] [place] Anion gap [Moles/Vol] 10 mmol/L Normal 8-[address] [facility] Comment on above: Order Comment: Speci men Type: BLOOD SPECIMENOrdering Facility: [facility] Address: [address] [place] [address] Performed By: #### 2 777-1, , ####[facility] LABCLIA [id number] [address] [address] [place] AST [Catalytic activity/Vol] 42 U/L High 14-40 [facility] Comment on above: Order Comment: Speci men Type: BLOOD SPECIMENOrdering Facility: [facility] Address: [address] [place] [address] Performed By: #### 2 777-1, , ####[facility] LABCLIA [id number] [place] [id number] [place] Bilirubin [Mass/Vol] 0.4 mg/dL Normal 0.2-1.3 [facility] Comment on above: Order Comment: Speci men Type: BLOOD SPECIMENOrdering Facility: [facility] Address: [address] [place] [address] Performed By: #### 2 777-1, , ####[facility] LABCLIA [id number] [address] [address] [place] Calcium [Mass/Vol] 8.0 mg/dL Low 8.5-10.2 [facility] Comment on above: Order Comment: Speci men Type: BLOOD SPECIMENOrdering Facility: [facility] Address: [address] [place], [place] [address] Performed By: #### 2 777-1, , ####[facility] LABCLIA [id number] [place] [address] [place] Chloride [Moles/Vol] 103 mmol/L Normal 98-107 [facility] Comment on above: Order Comment: Speci men Type: BLOOD SPECIMENOrdering Facility: [facility] Address: [address] [place] [address] Performed By: #### 2 777-1, 22768-7, ####[facility] LABIA [id number] [place] [address] [place] CO2 [Moles/Vol] 24 mmol/L Normal 22-30 [facility] Comment on above: Order Comment: Speci men Type: BLOOD SPECIMENOrdering Facility: [facility] Address: [address] [place] [address] Performed By: #### 2 777-1, 06457-6, ####[facility] LABIA [id number] [place] [address] [place] Creatinine [Mass/Vol] 1.26 mg/dL High 0.73-1.[address] [facility] Comment on above: Order Comment: Speci men Type: BLOOD SPECIMENOrdering Facility: [facility] Address: [address] [place] [address] Performed By: #### 2 777-1, 15163-5, ####[facility] LABIA [id number] [place] [address] [place] Creatinine and Glomerular filtration rate.predicted panel (S/P/Bld) 58 mL/min/1.73m??? Low >=60 [facility] Comment on above: Order Comment: Speci men Type: BLOOD SPECIMENOrdering Facility: [facility] Address: [address] [place] [address] Result Comment: Ruby mated Glomerular Filtration Rate (eGFR) is calculated using the 2020 CKD-EPI creatinine equation. This equation utilizes serum creatinine, sex, and age as parameters. The creatinine assay has traceable calibration to isotope dilution-mass spectrometry. Refer to KDIGO guidelines for clinical interpretation. In patients with unstable renal function, e.g. those with acute kidney injury, the eGFR may not accurately reflect actual GFR. Performed By: #### 2 777-1, , ####[facility] LABCLIA [id number] [address] [address] [place] Glucose [Mass/Vol] 112 mg/dL High 74-99 [facility] Comment on above: Order Comment: Specjames patterson Type: BLOOD SPECIMENOrdering Facility: [facility] Address: [address] [place] [address] Result Comment: The [place] [employer] (ADA) provides guidance for cutoff values for fasting glucose and random glucose. The ADA defines fasting as no caloric intake for at least 8 hours. Fasting plasma glucose results between 100 to 125 mg/dL indicate increased risk for diabetes (prediabetes).Fasting plasma glucose results greater than or equal to 126 mg/dL meet the criteria for diagnosis of diabetes. In the absence of unequivocal hyperglycemia, results should be confirmed by repeat testing. In a patient with classic symptoms of hyperglycemia or hyperglycemic crisis, random plasma glucose results greater than or equal to 200 mg/dL meet the criteria for diagnosis of diabetes.Reference: Standards of Medical Care in Diabetes 2016, [place] [employer]. Diabetes Care. 2016.39(Suppl 1). Performed By: #### 2 777-1, , ####[facility] LABCLIA [id number] [address] [address] [place] Potassium [Moles/Vol] 3.6 mmol/L Low 3.7-5.[address] [facility] Comment on above: Order Comment: Elmo patterson Type: BLOOD SPECIMENOrdering Facility: [facility] Address: [address] [place] [address] Performed By: #### 2 777-1, , ####[facility] LABCLIA [id number] [address] [address] [place] Protein [Mass/Vol] 5.4 g/dL Low 6.3-8.0 [facility] Comment on above: Order Comment: Speci men Type: BLOOD SPECIMENOrdering Facility: [facility] Address: [address] [place] [address] Performed By: #### 2 777-1, 06144-3, ####[facility] LABCLIA [id number] [place] [address] [place] Sodium [Moles/Vol] 137 mmol/L Normal 136-144 [facility] Comment on above: Order Comment: Speci men Type: BLOOD SPECIMENOrdering Facility: [facility] Address: [address] [place] [address] Performed By: #### 2 777-1, , ####[facility] LABCLIA [id number] [place] [address] [place] Urea nitrogen [Mass/Vol] 14 mg/dL Normal 9-24 [facility] Comment on above: Order Comment: Speci men Type: BLOOD SPECIMENOrdering Facility: [facility] Address: [address] [place] [address] Performed By: #### 2 777-1, , ####[facility] LABIA [id number] [place] [address] [place] Magnesium SerPl-mCncon 03-23 Magnesium [Mass/Vol] 2.0 mg/dL Normal 1.7-2.3 [facility] Comment on above: Order Comment: Speci men Type: BLOOD SPECIMENOrdering Facility: [facility] Address: [address] [place] [address] Performed By: #### 2 777-1, 55627-6, ####[facility] LABCLIA [id number] [place] [address] [place] Phosphate SerPl-mCncon 03-23 Phosphate [Mass/Vol] 2.7 mg/dL Normal 2.7-4.8 [facility] Comment on above: Order Comment: Speci men Type: BLOOD SPECIMENOrdering Facility: [facility] Address: [address] [place] [address] Performed By: #### 2 777-1, 42789-9, 25522-7 ####[facility] LABCLIA [id number] [address] [place] THERAPY NTon 03-23-2024 THERAPY NT Normal [facility] THERAPY NT Normal [facility] Bacteria Wnd Culton 03-22-20 24 Bacteria identified Cx Nom (Wound) Abnormal [facility] Comment on above: Performed By: #### 6 462-6 ####[facility] LABCLIA [id number] [address] [place] CASE MANAGEMon 03-22-2024 CASE MANAGEM Normal [facility] CBC W Auto Differential pane l (Bld)on 03-22-2024 Acanthocytes LM Ql (Bld) Few Normal [facility] Comment on above: Order Comment: Speci men Type: BLOOD SPECIMENOrdering Facility: [facility] Address: [address] [place] [address] Performed By: #### 5 7021-8 ####[facility] LABCLIA [id number] [place] [address] [place] Basophils (Bld) [#/Vol] 0.00 10*3/uL Normal <0.11 [facility] Comment on above: Order Comment: Speci men Type: BLOOD SPECIMENOrdering Facility: [facility] Address: [address] [place] [address] Performed By: #### 5 7021-8 ####[facility] LABCLIA [id number] [place] [address] [place] Basophils/100 WBC (Bld) 0.0 % Normal [facility] Comment on above: Order Comment: Speci men Type: BLOOD SPECIMENOrdering Facility: [facility] Address: [address] [place] [address] Performed By: #### 5 7021-8 ####[facility] LABCLIA [id number] [place] [address] [place] Differential cell count method Nom (Bld) Manual Normal [facility] Comment on above: Order Comment: Speci men Type: BLOOD SPECIMENOrdering Facility: [facility] Address: [address] [place] [address] Performed By: #### 5 7021-8 ####[facility] LABCLIA [id number] [place] [address] [place] Eosinophils (Bld) [#/Vol] 0.11 10*3/uL Normal <0.46 [facility] Comment on above: Order Comment: Speci men Type: BLOOD SPECIMENOrdering Facility: [facility] Address: [address] [place] [address] Performed By: #### 5 7021-8 ####[facility] LABCLIA [id number] [place] [address] [place] Eosinophils/100 WBC (Bld) 0.9 % Normal [facility] Comment on above: Order Comment: Speci men Type: BLOOD SPECIMENOrdering Facility: [facility] Address: [address] [place] [address] Performed By: #### 5 7021-8 ####[facility] LABCLIA [id number] [place] [address] [place] Erythrocyte distribution width (RBC) [Ratio] 14.3 % Normal 11.5-15.0 [facility] Comment on above: Order Comment: Speci men Type: BLOOD SPECIMENOrdering Facility: [facility] Address: [address] [place] [address] Performed By: #### 5 7021-8 ####[facility] LABCLIA [id number] [place] [address] [place] Hematocrit (Bld) [Volume fraction] 36.6 % Low 39.0-51.0 [facility] Comment on above: Order Comment: Speci men Type: BLOOD SPECIMENOrdering Facility: [facility] Address: [address] [place] [address] Performed By: #### 5 7021-8 ####[facility] LABIA [id number] [place] [address] [place] Hemoglobin (Bld) [Mass/Vol] 12.3 g/dL Low 13.0-17.0 [facility] Comment on above: Order Comment: Speci men Type: BLOOD SPECIMENOrdering Facility: [facility] Address: [address] [place] [address] Performed By: #### 5 7021-8 ####[facility] [id number] [place] [address] [place] Lymphocytes (Bld) [#/Vol] 0.54 10*3/uL Low 1.00-4.00 [facility] Comment on above: Order Comment: Speci men Type: BLOOD SPECIMENOrdering Facility: [facility] Address: [address] [place] [address] Performed By: #### 5 7021-8 ####[facility] [id number] [place] [address] [place] Lymphocytes/100 WBC (Bld) 4.3 % Normal [facility] Comment on above: Order Comment: Speci men Type: BLOOD SPECIMENOrdering Facility: [facility] Address: [address] [place] [address] Performed By: #### 5 7021-8 ####[facility] LABIA [id number] [place] [address] [place] MCH (RBC) [Entitic mass] 33.4 pg Normal 26.0-34.0 [facility] Comment on above: Order Comment: Speci men Type: BLOOD SPECIMENOrdering Facility: [facility] Address: [address] [place] [address] Performed By: #### 5 7021-8 ####[facility] LABCLIA [id number] [place] [address] [place] MCHC (RBC) [Mass/Vol] 33.6 g/dL Normal 30.5-36.[address] [facility] Comment on above: Order Comment: Speci men Type: BLOOD SPECIMENOrdering Facility: [facility] Address: [address] [place] [address] Performed By: #### 5 7021-8 ####[facility] LABIA [id number] [place] [address] [place] MCV (RBC) [Entitic vol] 99.5 fL Normal 80.0-100.0 [facility] Comment on above: Order Comment: Speci men Type: BLOOD SPECIMENOrdering Facility: [facility] Address: [address] [place] [address] Performed By: #### 5 7021-8 ####[facility] LABIA [id number] [place] [address] [place] Metamyelocytes/100 WBC (Bld) 0.9 % Normal [facility] Comment on above: Order Comment: Speci men Type: BLOOD SPECIMENOrdering Facility: [facility] Address: [address] [place] [address] Performed By: #### 5 7021-8 ####[facility] LABCLIA [id number] [place] [address] [place] Monocytes (Bld) [#/Vol] 0.65 10*3/uL Normal <0.87 [facility] Comment on above: Order Comment: Speci men Type: BLOOD SPECIMENOrdering Facility: [facility] Address: [address] [place] [address] Performed By: #### 5 7021-8 ####[facility] LABCLIA [id number] [place] [address] [place] Monocytes/100 WBC (Bld) 5.2 % Normal [facility] Comment on above: Order Comment: Speci men Type: BLOOD SPECIMENOrdering Facility: [facility] Address: [address] [place] [address] Performed By: #### 5 7021-8 ####[facility] LABCLIA [id number] [place] [address] [place] MYELO% 0.9 % Normal [facility] Comment on above: Order Comment: Speci men Type: BLOOD SPECIMENOrdering Facility: [facility] Address: [address] [place] [address] Performed By: #### 5 7021-8 ####[facility] LABCLIA [id number] [place] [address] [place] Neutrophils (Bld) [#/Vol] 11.01 10*3/uL High 1.45-7.50 [facility] Comment on above: Order Comment: Speci men Type: BLOOD SPECIMENOrdering Facility: [facility] Address: [address] [place] [address] Performed By: #### 5 7021-8 ####[facility] LABCLIA [id number] [place] [address] [place] Neutrophils/100 WBC (Bld) 87.8 % Normal [facility] Comment on above: Order Comment: Speci men Type: BLOOD SPECIMENOrdering Facility: [facility] Address: [address] [place] [address] Performed By: #### 5 7021-8 ####[facility] LABCLIA [id number] [place] [address] [place] Nucleated RBC (Bld) [#/Vol] 10*3/uL Normal <0.01 [facility] Comment on above: Order Comment: Speci men Type: BLOOD SPECIMENOrdering Facility: [facility] Address: [address] [place] [address] Performed By: #### 5 7021-8 ####[facility] LABCLIA [id number] [place] [address] [place] Nucleated RBC/100 WBC (Bld) [Ratio] 0.0 /100 WBC Normal [facility] Comment on above: Order Comment: Speci men Type: BLOOD SPECIMENOrdering Facility: [facility] Address: [address] [place] [address] Performed By: #### 5 7021-8 ####[facility] LABCLIA [id number] [place] [address] [place] Ovalocytes LM Ql (Bld) Few Normal Cl [facility] Comment on above: Order Comment: Speci men Type: BLOOD SPECIMENOrdering Facility: [facility] Address: [address] [place] [address] Performed By: #### 5 7021-8 ####[facility] LABCLIA [id number] [place] [address] [place] Platelet mean volume (Bld) [Entitic vol] 10.5 fL Normal 9.0-12.7 [facility] Comment on above: Order Comment: Speci men Type: BLOOD SPECIMENOrdering Facility: [facility] Address: [address] [place] [address] Performed By: #### 5 7021-8 ####[facility] LABCLIA [id number] [place] [address] [place] Platelets (Bld) [#/Vol] 256 10*3/uL Normal 150-400 [facility] Comment on above: Order Comment: Speci men Type: BLOOD SPECIMENOrdering Facility: [facility] Address: [address] [place] [address] Performed By: #### 5 7021-8 ####[facility] LABCLIA [id number] [place] [address] [place] Platelets Estimate (Bld) [#/Vol] Adequate Normal [facility] Comment on above: Order Comment: Speci men Type: BLOOD SPECIMENOrdering Facility: [facility] Address: [address] [place] [address] Performed By: #### 5 7021-8 ####[facility]IA [id number] [place] [address] [place] Polychromasia LM Ql (Bld) Slight Normal [facility] Comment on above: Order Comment: Speci men Type: BLOOD SPECIMENOrdering Facility: [facility] Address: [address] [place] [address] Performed By: #### 5 7021-8 ####[facility] LABIA [id number] [place] [address] [place] RBC (Bld) [#/Vol] 3.68 10*6/uL Low 4.20-6.00 [facility] Comment on above: Order Comment: Speci men Type: BLOOD SPECIMENOrdering Facility: [facility] Address: [address] [place] [address] Performed By: #### 5 7021-8 ####[facility] LABIA [id number] [place] [address] [place] RED CELL MORPH Reviewed: see result s of individual morphologies Normal [facility] Comment on above: Order Comment: Speci men Type: BLOOD SPECIMENOrdering Facility: [facility] Address: [address] [place] [address] Performed By: #### 5 7021-8 ####[facility] LABIA [id number] [place] [address] [place] WBC (Bld) [#/Vol] 12.54 10*3/uL High 3.70-11.00 [facility] Comment on above: Order Comment: Speci men Type: BLOOD SPECIMENOrdering Facility: [facility] Address: [address] [place] [id number] Performed By: #### 5 7021-8 ####[facility] LABCLIA [id number] [place] [id number] [place] WBC Left Shift Ql (Bld) Present Normal [facility] Comment on above: Order Comment: Speci men Type: BLOOD SPECIMENOrdering Facility: [facility] Address: [address] [place] [address] Performed By: #### 5 7021-8 ####[facility] LABCLIA [id number] [place] [address] [place] CONSULT PROGon 03-22-2024 CONSULT PROG Normal [facility] Comprehensive metabolic 2000 panelon 03-22-2024 Albumin [Mass/Vol] 2.6 g/dL Low 3.9-4.9 [facility] Comment on above: Order Comment: Speci men Type: BLOOD SPECIMENOrdering Facility: [facility] Address: [address] [place] [address] Performed By: #### 2 4323-8, 2777-1, 28263-9 ####[facility] LABCLIA [id number] [place] [address] [place] ALP [Catalytic activity/Vol] 58 U/L Normal 38-113 [facility] Comment on above: Order Comment: Speci men Type: BLOOD SPECIMENOrdering Facility: [facility] Address: [address] [place], [place] [address] Performed By: #### 2 4323-8, 2777-1, 02556-0 ####[facility] LABIA [id number] [place] [id number] [place] ALT [Catalytic activity/Vol] 44 U/L Normal 10-54 [facility] Comment on above: Order Comment: Speci men Type: BLOOD SPECIMENOrdering Facility: [facility] Address: [address] [place], [place] [address] Performed By: #### 2 4323-8, 2777, ####[facility] LABCLIA [id number] [address] [address] [place] Anion gap [Moles/Vol] 12 mmol/L Normal 8-[address] [facility] Comment on above: Order Comment: Speci men Type: BLOOD SPECIMENOrdering Facility: [facility] Address: [address] [place] [address] Performed By: #### 2 4323-8, 27701-31, ####[facility] LABCLIA [id number] [place] [id number] [place] AST [Catalytic activity/Vol] 34 U/L Normal 14-40 [facility] Comment on above: Order Comment: Speci men Type: BLOOD SPECIMENOrdering Facility: [facility] Address: [address] [place], [place] [address] Performed By: #### 2 4323-8, 27701-31, ####[facility] LABCLIA [id number] [place] [id number] [place] Bilirubin [Mass/Vol] 0.5 mg/dL Normal 0.2-1.3 [facility] Comment on above: Order Comment: Speci men Type: BLOOD SPECIMENOrdering Facility: [facility] Address: [address] [place] [address] Performed By: #### 2 4323-8, 27701-31, ####[facility] LABIA [id number] [place] [id number] [place] Calcium [Mass/Vol] 8.0 mg/dL Low 8.5-10.2 [facility] Comment on above: Order Comment: Speci men Type: BLOOD SPECIMENOrdering Facility: [facility] Address: [address] [place] [address] Performed By: #### 2 4323-8, 27701-31, ####[facility] LABCLIA [id number] [address] [address] [place] Chloride [Moles/Vol] 104 mmol/L Normal 98-107 [facility] Comment on above: Order Comment: Speci men Type: BLOOD SPECIMENOrdering Facility: [facility] Address: [address] [place] [address] Performed By: #### 2 4323-8, 27701-31, ####[facility]IA [id number] [place] [id number] [place] CO2 [Moles/Vol] 24 mmol/L Normal 22-30 [facility] Comment on above: Order Comment: Speci men Type: BLOOD SPECIMENOrdering Facility: [facility] Address: [address] [place] [address] Performed By: #### 2 4323-8, 27701-31, ####[facility]IA [id number] [place] [id number] [place] Creatinine [Mass/Vol] 1.22 mg/dL Normal 0.73-1.[address] [facility] Comment on above: Order Comment: Speci men Type: BLOOD SPECIMENOrdering Facility: [facility] Address: [address] [place] [address] Performed By: #### 2 4323-8, 27701-31, ####[facility]IA [id number] [address] [address] [place] Creatinine and Glomerular filtration rate.predicted panel (S/P/Bld) 61 mL/min/1.73m??? Normal >=60 [facility] Comment on above: Order Comment: Speci men Type: BLOOD SPECIMENOrdering Facility: [facility] [facility] Address: [address] [place] [address] Result Comment: Ruby mated Glomerular Filtration Rate (eGFR) is calculated using the 2020 CKD-EPI creatinine equation. This equation utilizes serum creatinine, sex, and age as parameters. The creatinine assay has traceable calibration to isotope dilution-mass spectrometry. Refer to KDIGO guidelines for clinical interpretation. In patients with unstable renal function, e.g. those with acute kidney injury, the eGFR may not accurately reflect actual GFR. Performed By: #### 2 4323-8, 27701-31, ####[facility] LABCLIA [id number] [address] [address] [place] Glucose [Mass/Vol] 89 mg/dL Normal 74-99 [facility] Comment on above: Order Comment: Speci men Type: BLOOD SPECIMENOrdering Facility: [facility] Address: [address] [place] [address] Result Comment: The [place] Diabetes Association (ADA) provides guidance for cutoff values for fasting glucose and random glucose. The ADA defines fasting as no caloric intake for at least 8 hours. Fasting plasma glucose results between 100 to 125 mg/dL indicate increased risk for diabetes (prediabetes).Fasting plasma glucose results greater than or equal to 126 mg/dL meet the criteria for diagnosis of diabetes. In the absence of unequivocal hyperglycemia, results should be confirmed by repeat testing. In a patient with classic symptoms of hyperglycemia or hyperglycemic crisis, random plasma glucose results greater than or equal to 200 mg/dL meet the criteria for diagnosis of diabetes.Reference: Standards of Medical Care in Diabetes 2016, [place] [employer]. Diabetes Care. 2016.39(Suppl 1). Performed By: #### 2 4323-8, 2776-08, ####[facility] LABIA [id number] [address] [address] [place] Potassium [Moles/Vol] 4.0 mmol/L Normal 3.7-5.[address] [facility] Comment on above: Order Comment: Elmo patterson Type: BLOOD SPECIMENOrdering Facility: [facility] Address: [address] [place] [address] Performed By: #### 2 4323-8, 2777, ####[facility] LABCLIA [id number] [place] [id number] [place] Protein [Mass/Vol] 5.3 g/dL Low 6.3-8.0 [facility] Comment on above: Order Comment: Speci men Type: BLOOD SPECIMENOrdering Facility: [facility] Address: [address] [place], [place] [address] Performed By: #### 2 4323-8, 2777-1, ####[facility] LABCLIA [id number] [place] [id number] [place] Sodium [Moles/Vol] 140 mmol/L Normal 136-144 [facility] Comment on above: Order Comment: Speci men Type: BLOOD SPECIMENOrdering Facility: [facility] Address: [address] [place] [address] Performed By: #### 2 4323-8, 2777, ####[facility] LABCLIA [id number] [place] [id number] [place] Urea nitrogen [Mass/Vol] 15 mg/dL Normal 9-24 [facility] Comment on above: Order Comment: Speci men Type: BLOOD SPECIMENOrdering Facility: [facility] Address: [address] [place] [address] Performed By: #### 2 4323-8, 2777, ####[facility] LABCLIA [id number] [place] [id number] [place] ECG COMPLETEon 03-22-2024 ECG COMPLETE Normal [facility] Magnesium SerPl-mCncon 03-22 Magnesium [Mass/Vol] 2.1 mg/dL Normal 1.7-2.3 [facility] Comment on above: Order Comment: Speci men Type: BLOOD SPECIMENOrdering Facility: [facility] Address: [address] [place] [address] Performed By: #### 2 4323-8, 2777-, ####[facility] LABCLIA [id number] [place] [address] [place] NURSING PROGon 03-22-2024 NURSING PROG Normal [facility] Phosphate SerPl-mCncon 03-22 Phosphate [Mass/Vol] 3.0 mg/dL Normal 2.7-4.8 [facility] Comment on above: Order Comment: Speci men Type: BLOOD SPECIMENOrdering Facility: [facility] Address: [address] [place] [address] Performed By: #### 2 4323-8, 2777-1, 93777-8 ####[facility] LABCLIA [id number] [address] [place] THERAPY NTon 03-22-2024 THERAPY NT Normal [facility] THERAPY NT Normal [facility] BRIEF OP NOTon 03-21-2024 BRIEF OP NOT Normal [facility] CASE MGT INIT ASSESon 2023 CASE MGT INIT ASSES Normal [facility] CBC W Auto Differential pane l (Bld)on 03-21-2024 Acanthocytes LM Ql (Bld) Few Normal [facility] Comment on above: Order Comment: Speci men Type: BLOOD SPECIMENOrdering Facility: [facility] Address: [address] [place] [address] Performed By: #### 5 7021-8 ####[facility] LABCLIA [id number] [place] [address] [place] Basophils (Bld) [#/Vol] 0.09 10*3/uL Normal <0.11 [facility] Comment on above: Order Comment: Speci men Type: BLOOD SPECIMENOrdering Facility: [facility] Address: [address] [place] [address] Performed By: #### 5 7021-8 ####[facility] LABCLIA [id number] [place] [address] [place] Basophils/100 WBC (Bld) 0.9 % Normal [facility] Comment on above: Order Comment: Speci men Type: BLOOD SPECIMENOrdering Facility: [facility] Address: [address] [place] [address] Performed By: #### 5 7021-8 ####[facility] LABCLIA [id number] [place] [address] [place] Differential cell count method Nom (Bld) Manual Normal [facility] Comment on above: Order Comment: Speci men Type: BLOOD SPECIMENOrdering Facility: [facility] Address: [address] [place] [address] Performed By: #### 5 7021-8 ####[facility] LABCLIA [id number] [place] [address] [place] Eosinophils (Bld) [#/Vol] 0.19 10*3/uL Normal <0.46 [facility] Comment on above: Order Comment: Speci men Type: BLOOD SPECIMENOrdering Facility: [facility] Address: [address] [place] [address] Performed By: #### 5 7021-8 ####[facility] LABCLIA [id number] [place] [address] [place] Eosinophils/100 WBC (Bld) 1.8 % Normal [facility] Comment on above: Order Comment: Speci men Type: BLOOD SPECIMENOrdering Facility: [facility] Address: [address] [place] [address] Performed By: #### 5 7021-8 ####[facility] LABCLIA [id number] [place] [address] [place] Erythrocyte distribution width (RBC) [Ratio] 14.4 % Normal 11.5-15.0 [facility] Comment on above: Order Comment: Speci men Type: BLOOD SPECIMENOrdering Facility: [facility] Address: [address] [place] [address] Performed By: #### 5 7021-8 ####[facility] LABCLIA [id number] [place] [address] [place] Hematocrit (Bld) [Volume fraction] 32.7 % Low 39.0-51.0 [facility] Comment on above: Order Comment: Speci men Type: BLOOD SPECIMENOrdering Facility: [facility] Address: [address] [place] [address] Performed By: #### 5 7021-8 ####[facility] LABIA [id number] [place] [address] [place] Hemoglobin (Bld) [Mass/Vol] 10.9 g/dL Low 13.0-17.0 [facility] Comment on above: Order Comment: Speci men Type: BLOOD SPECIMENOrdering Facility: [facility] Address: [address] [place] [address] Performed By: #### 5 7021-8 ####[facility] LABIA [id number] [place] [address] [place] Lymphocytes (Bld) [#/Vol] 0.36 10*3/uL Low 1.00-4.00 [facility] Comment on above: Order Comment: Speci men Type: BLOOD SPECIMENOrdering Facility: [facility] Address: [address] [place] [address] Performed By: #### 5 7021-8 ####[facility] LABIA [id number] [place] [address] [place] Lymphocytes/100 WBC (Bld) 3.5 % Normal [facility] Comment on above: Order Comment: Speci men Type: BLOOD SPECIMENOrdering Facility: [facility] Address: [address] [place] [address] Performed By: #### 5 7021-8 ####[facility] LABIA [id number] [place] [address] [place] MCH (RBC) [Entitic mass] 34.0 pg Normal 26.0-34.0 [facility] Comment on above: Order Comment: Speci men Type: BLOOD SPECIMENOrdering Facility: [facility] Address: [address] [place] [address] Performed By: #### 5 7021-8 ####[facility] LABCLIA [id number] [place] [address] [place] MCHC (RBC) [Mass/Vol] 33.3 g/dL Normal 30.5-36.[address] [facility] Comment on above: Order Comment: Speci men Type: BLOOD SPECIMENOrdering Facility: [facility] Address: [address] [place] [address] Performed By: #### 5 7021-8 ####[facility] LABIA [id number] [place] [address] [place] MCV (RBC) [Entitic vol] 101.9 fL High 80.0-100.0 [facility] Comment on above: Order Comment: Speci men Type: BLOOD SPECIMENOrdering Facility: [facility] Address: [address] [place] [address] Performed By: #### 5 7021-8 ####[facility] LABIA [id number] [place] [address] [place] Metamyelocytes/100 WBC (Bld) 4.4 % Normal [facility] Comment on above: Order Comment: Speci men Type: BLOOD SPECIMENOrdering Facility: [facility] Address: [address] [place] [address] Performed By: #### 5 7021-8 ####[facility] LABIA [id number] [place] [address] [place] Monocytes (Bld) [#/Vol] 0.82 10*3/uL Normal <0.87 [facility] Comment on above: Order Comment: Speci men Type: BLOOD SPECIMENOrdering Facility: [facility] Address: [address] [place] [address] Performed By: #### 5 7021-8 ####[facility] LABCLIA [id number] [place] [address] [place] Monocytes/100 WBC (Bld) 7.9 % Normal [facility] Comment on above: Order Comment: Speci men Type: BLOOD SPECIMENOrdering Facility: [facility] Address: [address] [place] [address] Performed By: #### 5 7021-8 ####[facility] LABCLIA [id number] [place] [address] [place] MYELO% 2.6 % Normal [facility] Comment on above: Order Comment: Speci men Type: BLOOD SPECIMENOrdering Facility: [facility] Address: [address] [place] [address] Performed By: #### 5 7021-8 ####[facility] LABCLIA [id number] [place] [address] [place] Neutrophils (Bld) [#/Vol] 8.22 10*3/uL High 1.45-7.50 [facility] Comment on above: Order Comment: Speci men Type: BLOOD SPECIMENOrdering Facility: [facility] Address: [address] [place] [address] Performed By: #### 5 7021-8 ####[facility] LABCLIA [id number] [place] [address] [place] Neutrophils/100 WBC (Bld) 78.9 % Normal [facility] Comment on above: Order Comment: Speci men Type: BLOOD SPECIMENOrdering Facility: [facility] Address: [address] [place] [address] Performed By: #### 5 7021-8 ####[facility] LABCLIA [id number] [place] [address] [place] Nucleated RBC (Bld) [#/Vol] 10*3/uL Normal <0.01 [facility] Comment on above: Order Comment: Speci men Type: BLOOD SPECIMENOrdering Facility: [facility] Address: [address] [place] [address] Performed By: #### 5 7021-8 ####[facility] LABCLIA [id number] [place] [address] [place] Nucleated RBC/100 WBC (Bld) [Ratio] 0.0 /100 WBC Normal [facility] Comment on above: Order Comment: Speci men Type: BLOOD SPECIMENOrdering Facility: [facility] Address: [address] [place] [address] Performed By: #### 5 7021-8 ####[facility] LABCLIA [id number] [place] [address] [place] Ovalocytes LM Ql (Bld) Few Normal Cl [facility] Comment on above: Order Comment: Speci men Type: BLOOD SPECIMENOrdering Facility: [facility] Address: [address] [place] [address] Performed By: #### 5 7021-8 ####[facility] LABIA [id number] [place] [address] [place] Platelet mean volume (Bld) [Entitic vol] 11.2 fL Normal 9.0-12.7 [facility] Comment on above: Order Comment: Speci men Type: BLOOD SPECIMENOrdering Facility: [facility] Address: [address] [place] [address] Performed By: #### 5 7021-8 ####[facility] LABCLIA [id number] [place] [address] [place] Platelets (Bld) [#/Vol] 187 10*3/uL Normal 150-400 [facility] Comment on above: Order Comment: Speci men Type: BLOOD SPECIMENOrdering Facility: [facility] Address: [address] [place] [address] Performed By: #### 5 7021-8 ####[facility] LABCLIA [id number] [place] [address] [place] Platelets Estimate (Bld) [#/Vol] Adequate Normal [facility] Comment on above: Order Comment: Speci men Type: BLOOD SPECIMENOrdering Facility: [facility] Address: [address] [place] [address] Performed By: #### 5 7021-8 ####[facility] LABCLIA [id number] [place] [address] [place] Polychromasia LM Ql (Bld) Slight Normal [facility] Comment on above: Order Comment: Speci men Type: BLOOD SPECIMENOrdering Facility: [facility] Address: [address] [place] [address] Performed By: #### 5 7021-8 ####[facility] LABCLIA [id number] [place] [address] [place] RBC (Bld) [#/Vol] 3.21 10*6/uL Low 4.20-6.00 [facility] Comment on above: Order Comment: Speci men Type: BLOOD SPECIMENOrdering Facility: [facility] Address: [address] [place] [address] Performed By: #### 5 7021-8 ####[facility] LABCLIA [id number] [place] [address] [place] RED CELL MORPH Reviewed: see result s of individual morphologies Normal [facility] Comment on above: Order Comment: Speci men Type: BLOOD SPECIMENOrdering Facility: [facility] Address: [address] [place] [address] Performed By: #### 5 7021-8 ####[facility] LABCLIA [id number] [place] [address] [place] WBC (Bld) [#/Vol] 10.42 10*3/uL Normal 3.70-11.00 [facility] Comment on above: Order Comment: Speci men Type: BLOOD SPECIMENOrdering Facility: [facility] Address: [address] [place], [place] [address] Performed By: #### 5 7021-8 ####[facility] LABCLIA [id number] [address] [address] [place] WBC Left Shift Ql (Bld) Present Normal [facility] Comment on above: Order Comment: Speci men Type: BLOOD SPECIMENOrdering Facility: [facility] Address: [address] [place], [place] [address] Performed By: #### 5 7021-8 ####[facility] LABCLIA [id number] [place] [address] [place] CNPNon 03-21-2024 CNPN Normal [facility] CONSULTon 03-21-2024 CONSULT Normal [facility] Comprehensive metabolic 2000 panelon 03-21-2024 Albumin [Mass/Vol] 2.3 g/dL Low 3.9-4.9 [facility] Comment on above: Order Comment: Speci men Type: BLOOD SPECIMENOrdering Facility: [facility] Address: [address] [place] [address] Performed By: #### 1 9123-9, 2777-1, 33429-3, 43179-9 ####[facility] LABCLIA [id number] [place] [address] [place] ALP [Catalytic activity/Vol] 52 U/L Normal 38-113 [facility] Comment on above: Order Comment: Speci men Type: BLOOD SPECIMENOrdering Facility: [facility] Address: [address] [place], [place] [address] Performed By: #### 1 9123-9, 2777-1, 32548-7, 77986-7 ####[facility] LABCLIA [id number] [place] [id number] [place] ALT [Catalytic activity/Vol] 51 U/L Normal 10-54 [facility] Comment on above: Order Comment: Speci men Type: BLOOD SPECIMENOrdering Facility: [facility] Address: [address] [place] [address] Performed By: #### 1 9123-9, 2777-1, 90540-3, 46461-0 ####[facility] LABCLIA [id number] [place] [id number] [place] Anion gap [Moles/Vol] 11 mmol/L Normal 8-[address] [facility] Comment on above: Order Comment: Speci men Type: BLOOD SPECIMENOrdering Facility: [facility] Address: [address] [place] [address] Performed By: #### 1 9123-9, 2777-1, 62163-3, 34433-5 ####[facility] LABCLIA [id number] [place] [address] [place] AST [Catalytic activity/Vol] 33 U/L Normal 14-40 [facility] Comment on above: Order Comment: Speci men Type: BLOOD SPECIMENOrdering Facility: [facility] Address: [address] [place] [address] Performed By: #### 1 9123-9, 2777-1, 80154-5, 74066-1 ####[facility] LABCLIA [id number] [place] [address] [place] Bilirubin [Mass/Vol] 0.4 mg/dL Normal 0.2-1.3 [facility] Comment on above: Order Comment: Speci men Type: BLOOD SPECIMENOrdering Facility: [facility] Address: [address] [place], [place] [address] Performed By: #### 1 9123-9, 2777-1, 65752-1, 98819-9 ####[facility] LABCLIA [id number] [place] [id number] [place] Calcium [Mass/Vol] 7.7 mg/dL Low 8.5-10.2 [facility] Comment on above: Order Comment: Speci men Type: BLOOD SPECIMENOrdering Facility: [facility] Address: [facility] [place] [address] Performed By: #### 1 9123-9, 2777-1, 01965-8, 44097-5 ####[facility] LABCLIA [id number] [place] [address] [place] Chloride [Moles/Vol] 106 mmol/L Normal 98-107 [facility] Comment on above: Order Comment: Speci men Type: BLOOD SPECIMENOrdering Facility: [facility] Address: [address] [place] [address] Performed By: #### 1 9123-9, 2777-1, 35391-5, 00041-4 ####[facility] LABIA [id number] [place] [address] [place] CO2 [Moles/Vol] 22 mmol/L Normal 22-30 [facility] Comment on above: Order Comment: Speci men Type: BLOOD SPECIMENOrdering Facility: [facility] Address: [address] [place] [address] [place] [address] Performed By: #### 1 9123-9, 2777-1, 20839-5, 82261-9 ####[facility] LABIA [id number] [place] [address] [place] Creatinine [Mass/Vol] 1.15 mg/dL Normal 0.73-1.[address] [facility] Comment on above: Order Comment: Speci men Type: BLOOD SPECIMENOrdering Facility: [facility] Address: [address] [place] [address] Performed By: #### 1 9123-9, 2777-1, 43802-5, 75028-7 ####[facility] LABCLIA [id number] [place] [address] [place] Creatinine and Glomerular filtration rate.predicted panel (S/P/Bld) 65 mL/min/1.73m??? Normal >=60 [facility] Comment on above: Order Comment: Elmo patterson Type: BLOOD SPECIMENOrdering Facility: [facility] Address: [address] [place] [address] Result Comment: Ruby mated Glomerular Filtration Rate (eGFR) is calculated using the 2020 CKD-EPI creatinine equation. This equation utilizes serum creatinine, sex, and age as parameters. The creatinine assay has traceable calibration to isotope dilution-mass spectrometry. Refer to KDIGO guidelines for clinical interpretation. In patients with unstable renal function, e.g. those with acute kidney injury, the eGFR may not accurately reflect actual GFR. Performed By: #### 1 9123-9, 2777-1, 70633-6, 36520-4 ####[facility] LABIA [id number] [place] [address] [place] Glucose [Mass/Vol] 106 mg/dL High 74-99 [facility] Comment on above: Order Comment: Elmo patterson Type: BLOOD SPECIMENOrdering Facility: [facility] Address: [address] [place] [address] Result Comment: The [place] [employer] (ADA) provides guidance for cutoff values for fasting glucose and random glucose. The ADA defines fasting as no caloric intake for at least 8 hours. Fasting plasma glucose results between 100 to 125 mg/dL indicate increased risk for diabetes (prediabetes).Fasting plasma glucose results greater than or equal to 126 mg/dL meet the criteria for diagnosis of diabetes. In the absence of unequivocal hyperglycemia, results should be confirmed by repeat testing. In a patient with classic symptoms of hyperglycemia or hyperglycemic crisis, random plasma glucose results greater than or equal to 200 mg/dL meet the criteria for diagnosis of diabetes.Reference: Standards of Medical Care in Diabetes 2016, [place] [employer]. Diabetes Care. 2016.39(Suppl 1). Performed By: #### 1 9123-9, 2777-1, 03183-4, 35160-2 ####[facility] LABCLIA [id number] [address] [address] [place] Potassium [Moles/Vol] 3.6 mmol/L Low 3.7-5.[address] [facility] Comment on above: Order Comment: Speci men Type: BLOOD SPECIMENOrdering Facility: [facility] Address: [address] [place] [address] Performed By: #### 1 9123-9, 2777-1, 00057-8, 32362-0 ####[facility] LABCLIA [id number] [facility] [place] [id number] [place] Protein [Mass/Vol] 4.9 g/dL Low 6.3-8.0 [facility] Comment on above: Order Comment: Speci men Type: BLOOD SPECIMENOrdering Facility: [facility] Address: [address] [place] [address] Performed By: #### 1 9123-9, 2777-1, 83437-2, 11968-3 ####[facility] LABIA [id number] [place] [address] [place] Sodium [Moles/Vol] 139 mmol/L Normal 136-144 [facility] Comment on above: Order Comment: Speci men Type: BLOOD SPECIMENOrdering Facility: [facility] Address: [address] [place] [address] Performed By: #### 1 9123-9, 2777-1, 86686-3, 80617-1 ####[facility] LABIA [id number] [place] [id number] [place] Urea nitrogen [Mass/Vol] 15 mg/dL Normal 9-24 [facility] Comment on above: Order Comment: Speci men Type: BLOOD SPECIMENOrdering Facility: [facility] Address: [address] [place] [address] Performed By: #### 1 9123-9, 2777-1, 75438-6, 11706-2 ####[facility] LABCLIA [id number] [address] [address] [place] ECG COMPLETEon 03-21-2024 ECG COMPLETE Normal [facility] IR CHOLECYSTOSTOMY PERCon IR CHOLECYSTOSTOMY PERC Normal [facility] Magnesium SerPl-mCncon 03-21 Magnesium [Mass/Vol] 2.1 mg/dL Normal 1.7-2.3 [facility] Comment on above: Order Comment: Speci men Type: BLOOD SPECIMENOrdering Facility: [facility] Address: [address] [place] [address] Performed By: #### 1 9123-9, 2777-1, 37061-8, 45830-4 ####[facility] LABCLIA [id number] [place] [id number] [place] NT-proBNP SerPl-ncon 03-21 Natriuretic peptide.B prohormone N-Terminal [Mass/Vol] 4092 pg/mL High <450 [facility] Comment on above: Order Comment: Speci men Type: BLOOD SPECIMENOrdering Facility: [facility] Address: [address] [place] [address] Performed By: #### 1 9123-9, 2777-1, 59964-5, 81386-4 ####[facility] LABCLIA [id number] [place] [id number] [place] NURSING PROGon 03-21-2024 NURSING PROG Normal [facility] PT EDon 03-21-2024 PT ED Normal [facility] Phosphate SerPl-mCncon 03-21 Phosphate [Mass/Vol] 2.9 mg/dL Normal 2.7-4.8 [facility] Comment on above: Order Comment: Speci men Type: BLOOD SPECIMENOrdering Facility: [facility] Address: [address] [place] [address] Performed By: #### 1 9123-9, 2777-1, 99720-8, 31397-3 ####[facility] LABCLIA [id number] [address] [address] [place] CBC W Auto Differential pane l (Bld)on 03-20-2024 Acanthocytes LM Ql (Bld) Few Normal [facility] Comment on above: Order Comment: Speci men Type: BLOOD SPECIMENOrdering Facility: [facility] Address: [address] [place] [address] Performed By: #### 5 7021-8 ####[facility] LABCLIA [id number] [place] [address] [place] Basophils (Bld) [#/Vol] 0.00 10*3/uL Normal <0.11 [facility] Comment on above: Order Comment: Speci men Type: BLOOD SPECIMENOrdering Facility: [facility] Address: [address] [place] [address] Performed By: #### 5 7021-8 ####[facility] LABCLIA [id number] [place] [address] [place] Basophils/100 WBC (Bld) 0.0 % Normal [facility] Comment on above: Order Comment: Speci men Type: BLOOD SPECIMENOrdering Facility: [facility] Address: [address] [place] [address] Performed By: #### 5 7021-8 ####[facility] LABCLIA [id number] [place] [address] [place] Differential cell count method Nom (Bld) Manual Normal [facility] Comment on above: Order Comment: Speci men Type: BLOOD SPECIMENOrdering Facility: [facility] Address: [address] [place] [address] Performed By: #### 5 7021-8 ####[facility] LABCLIA [id number] [place] [address] [place] Eosinophils (Bld) [#/Vol] 0.69 10*3/uL High <0.46 [facility] Comment on above: Order Comment: Speci men Type: BLOOD SPECIMENOrdering Facility: [facility] Address: [address] [place] [address] Performed By: #### 5 7021-8 ####[facility] LABCLIA [id number] [place] [address] [place] Eosinophils/100 WBC (Bld) 5.3 % Normal [facility] Comment on above: Order Comment: Speci men Type: BLOOD SPECIMENOrdering Facility: [facility] Address: [address] [place] [address] Performed By: #### 5 7021-8 ####[facility] LABCLIA [id number] [place] [address] [place] Erythrocyte distribution width (RBC) [Ratio] 14.4 % Normal 11.5-15.0 [facility] Comment on above: Order Comment: Speci men Type: BLOOD SPECIMENOrdering Facility: [facility] Address: [address] [place] [address] Performed By: #### 5 7021-8 ####[facility] LABIA [id number] [place] [address] [place] Hematocrit (Bld) [Volume fraction] 32.5 % Low 39.0-51.0 [facility] Comment on above: Order Comment: Speci men Type: BLOOD SPECIMENOrdering Facility: [facility] Address: [address] [place] [address] Performed By: #### 5 7021-8 ####[facility] LABIA [id number] [place] [address] [place] Hemoglobin (Bld) [Mass/Vol] 10.9 g/dL Low 13.0-17.0 [facility] Comment on above: Order Comment: Speci men Type: BLOOD SPECIMENOrdering Facility: [facility] Address: [address] [place] [address] Performed By: #### 5 7021-8 ####[facility] LABCLIA [id number] [place] [address] [place] Lymphocytes (Bld) [#/Vol] 0.69 10*3/uL Low 1.00-4.00 [facility] Comment on above: Order Comment: Speci men Type: BLOOD SPECIMENOrdering Facility: [facility] Address: [address] [place] [address] Performed By: #### 5 7021-8 ####[facility] LABIA [id number] [place] [address] [place] Lymphocytes/100 WBC (Bld) 5.3 % Normal [facility] Comment on above: Order Comment: Speci men Type: BLOOD SPECIMENOrdering Facility: [facility] Address: [address] [place] [address] Performed By: #### 5 7021-8 ####[facility] [id number] [place] [address] [place] MCH (RBC) [Entitic mass] 33.5 pg Normal 26.0-34.0 [facility] Comment on above: Order Comment: Speci men Type: BLOOD SPECIMENOrdering Facility: [facility] Address: [address] [place] [address] Performed By: #### 5 7021-8 ####[facility] LABIA [id number] [place] [address] [place] MCHC (RBC) [Mass/Vol] 33.5 g/dL Normal 30.5-36.[address] [facility] Comment on above: Order Comment: Speci men Type: BLOOD SPECIMENOrdering Facility: [facility] Address: [address] [place] [address] Performed By: #### 5 7021-8 ####[facility] LABIA [id number] [place] [address] [place] MCV (RBC) [Entitic vol] 100.0 fL Normal 80.0-100.0 [facility] Comment on above: Order Comment: Speci men Type: BLOOD SPECIMENOrdering Facility: [facility] Address: [address] [place] [address] Performed By: #### 5 7021-8 ####[facility] LABCLIA [id number] [place] [address] [place] Monocytes (Bld) [#/Vol] 1.38 10*3/uL High <0.87 [facility] Comment on above: Order Comment: Speci men Type: BLOOD SPECIMENOrdering Facility: [facility] Address: [address] [place] [address] Performed By: #### 5 7021-8 ####[facility] LABCLIA [id number] [place] [address] [place] Monocytes/100 WBC (Bld) 10.5 % Normal [facility] Comment on above: Order Comment: Speci men Type: BLOOD SPECIMENOrdering Facility: [facility] Address: [address] [place] [address] Performed By: #### 5 7021-8 ####[facility] LABCLIA [id number] [place] [address] [place] Neutrophils (Bld) [#/Vol] 10.34 10*3/uL High 1.45-7.50 [facility] Comment on above: Order Comment: Speci men Type: BLOOD SPECIMENOrdering Facility: [facility] Address: [address] [place] [address] Performed By: #### 5 7021-8 ####[facility] LABCLIA [id number] [place] [address] [place] Neutrophils/100 WBC (Bld) 78.9 % Normal [facility] Comment on above: Order Comment: Speci men Type: BLOOD SPECIMENOrdering Facility: [facility] Address: [address] [place] [address] Performed By: #### 5 7021-8 ####[facility] LABCLIA [id number] [address] [address] [place] Nucleated RBC (Bld) [#/Vol] 10*3/uL Normal <0.01 [facility] Comment on above: Order Comment: Speci men Type: BLOOD SPECIMENOrdering Facility: [facility] Address: [address] [place] [address] Performed By: #### 5 7021-8 ####[facility] LABCLIA [id number] [place] [address] [place] Nucleated RBC/100 WBC (Bld) [Ratio] 0.0 /100 WBC Normal [facility] Comment on above: Order Comment: Speci men Type: BLOOD SPECIMENOrdering Facility: [facility] Address: [address] [place] [address] Performed By: #### 5 7021-8 ####[facility] LABCLIA [id number] [place] [address] [place] Ovalocytes LM Ql (Bld) Few Normal Cl [facility] Comment on above: Order Comment: Speci men Type: BLOOD SPECIMENOrdering Facility: [facility] Address: [address] [place] [address] Performed By: #### 5 7021-8 ####[facility] LABCLIA [id number] [place] [address] [place] Platelet mean volume (Bld) [Entitic vol] 10.8 fL Normal 9.0-12.7 [facility] Comment on above: Order Comment: Speci men Type: BLOOD SPECIMENOrdering Facility: [facility] Address: [address] [place] [address] Performed By: #### 5 7021-8 ####[facility] LABCLIA [id number] [place] [address] [place] Platelets (Bld) [#/Vol] 183 10*3/uL Normal 150-400 [facility] Comment on above: Order Comment: Speci men Type: BLOOD SPECIMENOrdering Facility: [facility] Address: [address] [place], [place] [address] Performed By: #### 5 7021-8 ####[facility] LABCLIA [id number] [place] [address] [place] Platelets Estimate (Bld) [#/Vol] Adequate Normal [facility] Comment on above: Order Comment: Speci men Type: BLOOD SPECIMENOrdering Facility: [facility] Address: [address] [place] [address] Performed By: #### 5 7021-8 ####[facility] LABCLIA [id number] [place] [address] [place] Polychromasia LM Ql (Bld) Slight Normal [facility] Comment on above: Order Comment: Speci men Type: BLOOD SPECIMENOrdering Facility: [facility] Address: [address] [place] [address] Performed By: #### 5 7021-8 ####[facility] LABCLIA [id number] [place] [address] [place] RBC (Bld) [#/Vol] 3.25 10*6/uL Low 4.20-6.00 [facility] Comment on above: Order Comment: Speci men Type: BLOOD SPECIMENOrdering Facility: [facility] Address: [address] [place] [address] Performed By: #### 5 7021-8 ####[facility] LABCLIA [id number] [place] [address] [place] RED CELL MORPH Reviewed: see result s of individual morphologies Normal [facility] Comment on above: Order Comment: Speci men Type: BLOOD SPECIMENOrdering Facility: [facility] Address: [address] [place] [address] Performed By: #### 5 7021-8 ####[facility] LABCLIA [id number] [place] [address] [place] WBC (Bld) [#/Vol] 13.10 10*3/uL High 3.70-11.00 [facility] Comment on above: Order Comment: Speci men Type: BLOOD SPECIMENOrdering Facility: [facility] Address: [address] [place] [address] Performed By: #### 5 7021-8 ####[facility] LABCLIA [id number] [place] [address] [place] CT ABD/PEL WO IVCONon 2023 CT ABD/PEL WO IVCON Normal [facility] CT CHEST WO IVCONon 03-20-20 CT CHEST WO IVCON Normal [facility] Comprehensive metabolic 2000 panelon 03-20-2024 Albumin [Mass/Vol] 2.5 g/dL Low 3.9-4.9 [facility] Comment on above: Order Comment: Speci men Type: BLOOD SPECIMENOrdering Facility: [facility] Address: [address] [place] [address] Performed By: #### 2 4323-8 ####[facility] LABCLIA [id number] [place] [address] [place] ALP [Catalytic activity/Vol] 58 U/L Normal 38-113 [facility] Comment on above: Order Comment: Speci men Type: BLOOD SPECIMENOrdering Facility: [facility] Address: [address] [place] [address] Performed By: #### 2 4323-8 ####[facility] LABCLIA [id number] [place] [address] [place] ALT [Catalytic activity/Vol] 59 U/L High 10-54 [facility] Comment on above: Order Comment: Speci men Type: BLOOD SPECIMENOrdering Facility: [facility] Address: [address] [place] [address] Performed By: #### 2 4323-8 ####[facility] LABCLIA [id number] [place] [address] [place] Anion gap [Moles/Vol] 8 mmol/L Normal 8-[address] [facility] Comment on above: Order Comment: Speci men Type: BLOOD SPECIMENOrdering Facility: [facility] Address: [address] [place] [id number] Performed By: #### 2 4323-8 ####[facility] LABCLIA [id number] [place] [address] [place] AST [Catalytic activity/Vol] 33 U/L Normal 14-40 [facility] Comment on above: Order Comment: Speci men Type: BLOOD SPECIMENOrdering Facility: [facility] Address: [address] [place] [address] Performed By: #### 2 4323-8 ####[facility] LABCLIA [id number] [place] [address] [place] Bilirubin [Mass/Vol] 0.2 mg/dL Normal 0.2-1.3 [facility] Comment on above: Order Comment: Speci men Type: BLOOD SPECIMENOrdering Facility: [facility] Address: [address] [place], [place] [address] Performed By: #### 2 4323-8 ####[facility] LABCLIA [id number] [place] [address] [place] Calcium [Mass/Vol] 8.0 mg/dL Low 8.5-10.2 [facility] Comment on above: Order Comment: Speci men Type: BLOOD SPECIMENOrdering Facility: [facility] Address: [address] [id number] Performed By: #### 2 4323-8 ####[facility] LABCLIA [id number] [place] [address] [place] Chloride [Moles/Vol] 108 mmol/L High 98-107 [facility] Comment on above: Order Comment: Speci men Type: BLOOD SPECIMENOrdering Facility: [facility] Address: [address] [place] [address] Performed By: #### 2 4323-8 ####[facility] LABCLIA [id number] [place] [address] [place] CO2 [Moles/Vol] 21 mmol/L Low 22-30 [facility] Comment on above: Order Comment: Speci men Type: BLOOD SPECIMENOrdering Facility: [facility] Address: [address] [place] [address] Performed By: #### 2 4323-8 ####[facility] LABCLIA [id number] [place] [address] [place] Creatinine [Mass/Vol] 1.12 mg/dL Normal 0.73-1.[address] [facility] Comment on above: Order Comment: Speci men Type: BLOOD SPECIMENOrdering Facility: [facility] Address: [address] [place] [address] Performed By: #### 2 4323-8 ####[facility] LABIA [id number] [place] [address] [place] Creatinine and Glomerular filtration rate.predicted panel (S/P/Bld) 67 mL/min/1.73m??? Normal >=60 [facility] Comment on above: Order Comment: Speci men Type: BLOOD SPECIMENOrdering Facility: [facility] Address: [address] [place] [address] Result Comment: Ruby mated Glomerular Filtration Rate (eGFR) is calculated using the 2020 CKD-EPI creatinine equation. This equation utilizes serum creatinine, sex, and age as parameters. The creatinine assay has traceable calibration to isotope dilution-mass spectrometry. Refer to KDIGO guidelines for clinical interpretation. In patients with unstable renal function, e.g. those with acute kidney injury, the eGFR may not accurately reflect actual GFR. Performed By: #### 2 4323-8 ####[facility] LABCLIA [id number] [place] [id number] [place] Glucose [Mass/Vol] 104 mg/dL High 74-99 [facility] Comment on above: Order Comment: Speci men Type: BLOOD SPECIMENOrdering Facility: [facility] Address: [address] [place] [address] Result Comment: The [place] [employer] (ADA) provides guidance for cutoff values for fasting glucose and random glucose. The ADA defines fasting as no caloric intake for at least 8 hours. Fasting plasma glucose results between 100 to 125 mg/dL indicate increased risk for diabetes (prediabetes).Fasting plasma glucose results greater than or equal to 126 mg/dL meet the criteria for diagnosis of diabetes. In the absence of unequivocal hyperglycemia, results should be confirmed by repeat testing. In a patient with classic symptoms of hyperglycemia or hyperglycemic crisis, random plasma glucose results greater than or equal to 200 mg/dL meet the criteria for diagnosis of diabetes.Reference: Standards of Medical Care in Diabetes 2016, [place] [employer]. Diabetes Care. 2016.39(Suppl 1). Performed By: #### 2 4323-8 ####[facility] LABCLIA [id number] [place] [address] [place] Potassium [Moles/Vol] 3.9 mmol/L Normal 3.7-5.[address] [facility] Comment on above: Order Comment: Speci men Type: BLOOD SPECIMENOrdering Facility: [facility] Address: [address] [place] [address] Performed By: #### 2 4323-8 ####[facility] LABCLIA [id number] [place] [address] [place] Protein [Mass/Vol] 5.1 g/dL Low 6.3-8.0 [facility] Comment on above: Order Comment: Speci men Type: BLOOD SPECIMENOrdering Facility: [facility] Address: [address] [place], [place] [address] Performed By: #### 2 4323-8 ####[facility] LABCLIA [id number] [place] [address] [place] Sodium [Moles/Vol] 137 mmol/L Normal 136-144 [facility] Comment on above: Order Comment: Speci men Type: BLOOD SPECIMENOrdering Facility: [facility] Address: [address] [place] [address] Performed By: #### 2 4323-8 ####[facility] LABCLIA [id number] [place] [address] [place] Urea nitrogen [Mass/Vol] 19 mg/dL Normal 9-24 [facility] Comment on above: Order Comment: Speci men Type: BLOOD SPECIMENOrdering Facility: [facility] Address: [address] [place] [address] Performed By: #### 2 4323-8 ####[facility] LABCLIA [id number] [place] [address] [place] HISTORY PHYSICALon HISTORY PHYSICAL Normal [facility] NURSING PROGon 03-20-2024 NURSING PROG Normal [facility] PT panel Coag (PPP)on 2023 INR Coag (PPP) [Relative time] 1.2 {INR} Normal 0.9-1.3 [facility] Comment on above: Order Comment: Speci leonardo Type: BLOOD SPECIMENOrdering Facility: [facility] Address: [address] [place] [address] Result Comment: Alexa min K Antagonist (VKA) Therapeutic Range: INR 2 to 3 (Target INR of 2.5)Note: For patients treated with VKA drugs, such as warfarin, the [place] [employer] 2012 Guideline recommends a therapeutic INR range of 2 to 3 (target INR of 2.5). This recommendation includes high-risk patients with antiphospholipid syndrome with previous arterial or venous thromboembolism, current-generation mechanical or bioprosthetic aortic heart valve replacement.Note: Patients with mechanical aortic valve replacement and additional risk factors for thromboembolic events (atrial fibrillation, previous thromboembolism, LV dysfunction, hypercoagulable conditions) or an older generation mechanical AVR (i.e., ball in-Cage) or any mechanical MVR should have a INR therapeutic range of 2.5 to 3.5 (target INR of 3).Nancy GH, et al. Chest 2012, 141:7S-47SNishroman RA, et al. JACC 2017, 70: 252-289 Performed By: #### 3 4528-0 ####[facility] LABCLIA [id number] [place] [address] [place] PT Coag (PPP) [Time] 12.4 s Normal 9.7-13.0 [facility] Comment on above: Order Comment: Speci men Type: BLOOD SPECIMENOrdering Facility: [facility] Address: [address] [place] [address] Performed By: #### 3 4528-0 ####[facility] LABCLIA [id number] [place] [address] [place] TYPE + SCREENon 03-20-2024 ABO A Normal [facility] Comment on above: Order Comment: Speci men Type: BLOOD SPECIMENOrdering Facility: [facility] Address: [address] [place] [address] Performed By: #### T SCR ####[facility] BLO[facility] BANKCLIA [id number] [place] [address] [place] HISTORICAL AB SCR STATUS Negative Normal [facility] Comment on above: Order Comment: Speci men Type: BLOOD SPECIMENOrdering Facility: [facility] Address: [address] [place] [address] Performed By: #### T SCR ####[facility] BLOOD BANKCLIA [id number] [place] [address] [place] Rh Nom (Bld) Positive Normal [facility] Comment on above: Order Comment: Speci men Type: BLOOD SPECIMENOrdering Facility: [facility] Address: [address] [place] [address] Performed By: #### T SCR ####[facility] BLOOD BANKCLIA [id number] [place] [address] [place] TYPE AND SCREEN EXPIRATION 03/23/2024 23:59 Normal [facility] Comment on above: Order Comment: Speci men Type: BLOOD SPECIMENOrdering Facility: [facility] Address: [address] [place] [address] Performed By: #### T SCR ####[facility] BLOOD BANKCLIA [id number] [place] [address] [place] XR ABDOMEN 1V SUPINEon 03-20 XR ABDOMEN 1V SUPINE Normal [facility] XR CHEST 1V FRONTAL PORTon 0 03-20-2024 XR CHEST 1V FRONTAL PORT Normal [facility] Alanine aminotransferase [En zymatic activity/volume] in Serum or PlasmaOrdered By: Shakir Tsai on 03-19-2024 ALT [Catalytic activity/Vol] 72 U/L High 7-52 [facility] Comment on above: Performed By: #### P T, CBC, HS TROP, PTT, CK, BNP, BMP, HEPATIC #### [facility] [address] [id number] [place] Albumin [Mass/volume] in Ser um or Plasma by Bromocresol green (BCG) dye binding methoOrdered By: Shakir Tsai on 03-19-2024 Albumin BCG dye [Mass/Vol] 2.6 g/dL Low 3.5-5.7 [facility] Alkaline phosphatase [Enzyma tic activity/volume] in Serum or PlasmaOrdered By: Shakir Tsai on 03-19-2024 ALP [Catalytic activity/Vol] 52 U/L Normal 34-104 [facility] Comment on above: Performed By: #### P T, CBC, HS TROP, PTT, CK, BNP, BMP, HEPATIC #### [facility] [address] [place] [address] [place] Aspartate aminotransferase [ Enzymatic activity/volume] in Serum or PlasmaOrdered By: Shakir Tsai on 03-19-2024 AST [Catalytic activity/Vol] 44 U/L High 13-39 [facility] Comment on above: Performed By: #### P T, CBC, HS TROP, PTT, CK, BNP, BMP, HEPATIC #### [facility] [address] [id number] [place] Automated basophil %Ordered By: Shakir Tsai on 03-19-2024 Basophils/100 WBC (Bld) 0.3 % Normal . [facility] Comment on above: Performed By: #### P T, CBC, HS TROP, PTT, CK, BNP, BMP, HEPATIC #### [address] Automated basophil countOrde red By: Shakir Tsai on 03-19-2024 Basophils (Bld) [#/Vol] 0.0 10*3/uL Normal 0.0-0.2 [facility] Comment on above: Performed By: #### P T, CBC, HS TROP, PTT, CK, BNP, BMP, HEPATIC #### [address] Automated blood monocyte cou ntOrdered By: Shakir Tsai on 03-19-2024 Monocytes (Bld) [#/Vol] 1.8 10*3/uL High 0.0-0.8 [facility] Comment on above: Performed By: #### P T, CBC, HS TROP, PTT, CK, BNP, BMP, HEPATIC #### [address] Automated eosinophil %Ordere d By: Shakir Tsai on 03-19-2024 Eosinophils/100 WBC (Bld) 2.1 % Normal . [facility] Comment on above: Performed By: #### P T, CBC, HS TROP, PTT, CK, BNP, BMP, HEPATIC #### [address] Automated eosinophil countOr dered By: Shakir Tsai on 03-19-2024 Eosinophils (Bld) [#/Vol] 0.3 10*3/uL Normal 0.0-0.45 [facility] Comment on above: Performed By: #### P T, CBC, HS TROP, PTT, CK, BNP, BMP, HEPATIC #### [address] Automated monocyte %Ordered By: Shakir Tsai on 03-19-2024 Monocytes/100 WBC (Bld) 12.4 % Normal . [facility] Comment on above: Performed By: #### P T, CBC, HS TROP, PTT, CK, BNP, BMP, HEPATIC #### [address] Automated neutrophil %Ordere d By: Shakir Tsai on 03-19-2024 Neutrophils/100 WBC (Bld) 81.9 % Normal . [facility] Comment on above: Performed By: #### P T, CBC, HS TROP, PTT, CK, BNP, BMP, HEPATIC #### [address] Basic Metabolic Panelon 03-03 Creatinine Clr Calc Pharmacy 54.76 Normal [facility] Comment on above: Result Comment: PERF ORMED BY: [place] [address] PATHOLOGIST [employer] OFFICER PAM BISHOP M.D. Performed By: #### P T, CBC, HS TROP, PTT, CK, BNP, BMP, HEPATIC #### [address] GFR/1.73 sq M.predicted MDRD (S/P/Bld) [Vol rate/Area] 56.754 mL/min/{1.73_m2} Normal [facility] Comment on above: Performed By: #### P T, CBC, HS TROP, PTT, CK, BNP, BMP, HEPATIC #### [address] Bilirubin.direct [Mass/volum e] in Serum or PlasmaOrdered By: Shakir Tsai on 03-19-2024 Bilirubin.direct [Mass/Vol] 0.10 mg/dL 0.03-0.18 [facility] Bilirubin.total [Mass/volume ] in Serum or PlasmaOrdered By: Shakir Tsai on 03-19-2024 Bilirubin [Mass/Vol] 0.5 mg/dL Normal 0.3-1.0 [facility] Comment on above: Performed By: #### P T, CBC, HS TROP, PTT, CK, BNP, BMP, HEPATIC #### [address] Jayashree cells [Presence] in Blo od by Light microscopyOrdered By: Shakir Tsai on 03-19-2024 Jayashree cells LM Ql (Bld) Moderate [facility] Calcium [Mass/volume] in Ser um or PlasmaOrdered By: Shakir Tsai on 03-19-2024 Calcium [Mass/Vol] 7.6 mg/dL Low 8.6-10.3 [facility] Comment on above: Performed By: #### P T, CBC, HS TROP, PTT, CK, BNP, BMP, HEPATIC #### [address] Carbon dioxide, total [Moles /volume] in Serum or PlasmaOrdered By: Shakir Tsai on 03-19-2024 CO2 [Moles/Vol] 23.1 mmol/L Normal 21.0-31.0 [facility] Comment on above: Performed By: #### P T, CBC, HS TROP, PTT, CK, BNP, BMP, HEPATIC #### [facility] [address] Chloride [Moles/volume] in S raiza or PlasmaOrdered By: Shakir Tsai on 03-19-2024 Chloride [Moles/Vol] 105 mmol/L Normal 98-107 [facility] Comment on above: Performed By: #### P T, CBC, HS TROP, PTT, CK, BNP, BMP, HEPATIC #### [facility] [address] [place] [address] Creatinine [Mass/volume] in Serum or PlasmaOrdered By: Shakir Tsai on 03-19-2024 Creatinine [Mass/Vol] 1.29 mg/dL Normal 0.70-1.30 [facility] Comment on above: Performed By: #### P T, CBC, HS TROP, PTT, CK, BNP, BMP, HEPATIC #### [facility] [address] [place] [address] [place] Erythrocyte distribution wid th [Ratio] by Automated countOrdered By: Shakir Tsai on 03-19-2024 Erythrocyte distribution width (RBC) [Ratio] 14.6 % Normal 12.0-14.8 [facility] Comment on above: Performed By: #### P T, CBC, HS TROP, PTT, CK, BNP, BMP, HEPATIC #### [facility] [address] Erythrocytes [#/volume] in B lood by Automated countOrdered By: Shakir Tsai on 03-19-2024 RBC (Bld) [#/Vol] 3.09 10*6/uL Low 3.90-5.60 [facility] Comment on above: Performed By: #### P T, CBC, HS TROP, PTT, CK, BNP, BMP, HEPATIC #### [facility] [address] Glucose [Mass/volume] in Ser um or PlasmaOrdered By: Shakir Tsai on 03-19-2024 Glucose [Mass/Vol] 104 mg/dL High 70-100 [facility] Comment on above: ADA recommended refe rence rangeRandom Glucose Reference Range is dependent on time and content of last meal. Glucose of more than 200 mg/dL in a nonstressed, ambulatory subject supports the diagnosis of Diabetes Mellitus. Result Comment: [place] om Glucose Reference Range is dependent on time and content of last meal. Glucose of more than 200 mg/dL in a nonstressed, ambulatory subject supports the diagnosis of Diabetes Mellitus. ADA recommended reference range Performed By: #### P T, CBC, HS TROP, PTT, CK, BNP, BMP, HEPATIC #### [facility] [address] Hematocrit [Volume Fraction] of Blood by Automated countOrdered By: Shakir Tsai on 03-19-2024 Hematocrit (Bld) [Volume fraction] 31.2 % Low 38.8-50.0 [facility] Comment on above: Performed By: #### P T, CBC, HS TROP, PTT, CK, BNP, BMP, HEPATIC #### [facility] [address] Hemoglobin [Mass/volume] in BloodOrdered By: Shakir Tsai on 03-19-2024 Hemoglobin (Bld) [Mass/Vol] 10.5 g/dL Low 13.0-17.0 [facility] Comment on above: Performed By: #### P T, CBC, HS TROP, PTT, CK, BNP, BMP, HEPATIC #### [facility] [address] Hepatic Panelon 03-19-2024 Albumin [Mass/Vol] 2.6 g/dL Low 3.5-5.7 [facility] Comment on above: Performed By: #### P T, CBC, HS TROP, PTT, CK, BNP, BMP, HEPATIC #### [facility] [address] Bilirubin,Indirect 0.4 mg/dL Normal [facility] Comment on above: Performed By: #### P T, CBC, HS TROP, PTT, CK, BNP, BMP, HEPATIC #### [facility] [address] [place] [address] Bilirubin.indirect [Mass/Vol] 0.10 mg/dL Normal 0.03-0.18 [facility] Comment on above: Performed By: #### P T, CBC, HS TROP, PTT, CK, BNP, BMP, HEPATIC #### [facility] [address] [place] [address] Leukocytes [#/volume] correc drake for nucleated erythrocytes in Blood by Automated counOrdered By: Shakir Tsai on 03-19-2024 WBC corrected for nucl RBC Auto (Bld) [#/Vol] 14.3 10*3/uL High 4.1-10.5 [facility] Leukocytes [#/volume] in Blo od by Automated countOrdered By: Shakir Tsai on 03-19-2024 WBC (Bld) [#/Vol] 14.3 10*3/uL High 4.1-10.5 [facility] Comment on above: Performed By: #### P T, CBC, HS TROP, PTT, CK, BNP, BMP, HEPATIC #### [facility] [address] [place] [address] Lymphocytes [#/volume] in Bl ood by Automated countOrdered By: Shakir Tsai on 03-19-2024 Lymphocytes (Bld) [#/Vol] 0.5 10*3/uL Low 1.00-4.8 [facility] Comment on above: Performed By: #### P T, CBC, HS TROP, PTT, CK, BNP, BMP, HEPATIC #### [address] Lymphocytes/100 leukocytes i n Blood by Automated countOrdered By: Shakir Tsai on 03-19-2024 Lymphocytes/100 WBC (Bld) 3.3 % Normal . [facility] Comment on above: Performed By: #### P T, CBC, HS TROP, PTT, CK, BNP, BMP, HEPATIC #### [address] MCH [Entitic mass] by Automa drake countOrdered By: Shakir Tsai on 03-19-2024 MCH (RBC) [Entitic mass] 34.0 pg Normal 27.5-35.2 [facility] Comment on above: Performed By: #### P T, CBC, HS TROP, PTT, CK, BNP, BMP, HEPATIC #### [address] MCHC Auto (RBC) [Mass/Vol]Or dered By: Shakir Tsai on 03-19-2024 MCHC (RBC) [Mass/Vol] 33.7 g/dL 32.5-35.6 [facility] MCV [Entitic volume] by Auto mated countOrdered By: Shakir Tsai on 03-19-2024 MCV (RBC) [Entitic vol] 100.9 fL Normal 83.5-101 [facility] Comment on above: Performed By: #### P T, CBC, HS TROP, PTT, CK, BNP, BMP, HEPATIC #### [address] Neutrophils [#/volume] in Bl ood by Automated countOrdered By: Shakir Tsia on 03-19-2024 Neutrophils (Bld) [#/Vol] 11.7 10*3/uL High 1.8-7.7 [facility] Comment on above: Performed By: #### P T, CBC, HS TROP, PTT, CK, BNP, BMP, HEPATIC #### [address] No Panel InformationOrdered By: Shakir Tsai on 03-19-2024 Estimated GFR (CKD-EPI) 56.754 mL/Min [facility] Creatinine Clearance (Chem 54.76 [facility] Nucleated erythrocytes [Pres ence] in Blood by Automated countOrdered By: Shakir Tsai on 03-19-2024 Nucleated RBC Auto Ql (Bld) 0.0 /100{WBC} 0-0.5 [facility] Platelet adequacy [Presence] in Blood by Light microscopyOrdered By: Shakir Tsai on 03-19-2024 Platelets LM Ql (Bld) Normal Normal [facility] Platelet mean volume [Entiti c volume] in Blood by Automated countOrdered By: Shakir Tsai on 03-19-2024 Platelet mean volume (Bld) [Entitic vol] 9.3 fL Normal 6.6-10.1 [facility] Comment on above: Performed By: #### P T, CBC, HS TROP, PTT, CK, BNP, BMP, HEPATIC #### [facility] [address] Platelet morphology finding [Identifier] in BloodOrdered By: Shakir Tsai on 03-19-2024 Platelet morphology finding Nom (Bld) Normal Normal [facility] Platelets [#/volume] in Bloo d by Automated countOrdered By: Shakir Tsai on 03-19-2024 Platelets (Bld) [#/Vol] 164 10*3/uL Normal 150-450 [facility] Comment on above: Performed By: #### P T, CBC, HS TROP, PTT, CK, BNP, BMP, HEPATIC #### [facility] [address] [place] [address] [place] Potassium [Moles/volume] in Serum or PlasmaOrdered By: Shakir Tsai on 03-19-2024 Potassium [Moles/Vol] 3.6 mmol/L Normal 3.5-5.1 [facility] Comment on above: Performed By: #### P T, CBC, HS TROP, PTT, CK, BNP, BMP, HEPATIC #### [facility] [address] [place] [address] [place] Protein [Mass/volume] in Ser um or PlasmaOrdered By: Shakir Tsai on 03-19-2024 Protein [Mass/Vol] 5.1 g/dL Low 6.4-8.9 [facility] Comment on above: Performed By: #### P T, CBC, HS TROP, PTT, CK, BNP, BMP, HEPATIC #### [address] RBC morphologyOrdered By: Ashley Tsai on 03-19-2024 RBC morphology finding Nom (Bld) N/A [facility] Scan and CBCon 03-19-2024 Crenated RBC Moderate Normal [facility] Comment on above: Performed By: #### P T, CBC, HS TROP, PTT, CK, BNP, BMP, HEPATIC #### [address] Mean Corpuscular HGB Conc 33.7 g/dL Normal 32.5-35.6 [facility] Comment on above: Performed By: #### P T, CBC, HS TROP, PTT, CK, BNP, BMP, HEPATIC #### [address] NRBC% 0.0 /100{WBC} Normal 0-0.5 [facility] Comment on above: Performed By: #### P T, CBC, HS TROP, PTT, CK, BNP, BMP, HEPATIC #### [address] Platelet Estimate Normal Normal Normal [facility] Comment on above: Performed By: #### P T, CBC, HS TROP, PTT, CK, BNP, BMP, HEPATIC #### [address] Platelet Morphology Normal Normal Normal [facility] Comment on above: Result Comment: PERF ORMED BY: [place] [address] PATHOLOGIST [employer] OFFICER PAM BISHOP M.D. Performed By: #### P T, CBC, HS TROP, PTT, CK, BNP, BMP, HEPATIC #### [address] [place] [address] [place] Serum globulin measurement b y calculation (mass/volume)Ordered By: Shakir Tsai on 03-19-2024 Globulin (S) [Mass/Vol] 2.5 g/dL [facility] Comment on above: Performed By: #### P T, CBC, HS TROP, PTT, CK, BNP, BMP, HEPATIC #### [facility] [address] [place] [address] Serum or plasma albumin/glob ulin mass ratioOrdered By: Shakir Tsai on 03-19-2024 Albumin/Globulin [Mass ratio] 1.0 {ratio} [facility] Comment on above: Performed By: #### P T, CBC, HS TROP, PTT, CK, BNP, BMP, HEPATIC #### [address] Serum or plasma anion gap de terminationOrdered By: Shakir Tsai on 03-19-2024 Anion gap [Moles/Vol] 9.5 mmol/L Normal 6.0-15.0 [facility] Comment on above: Performed By: #### P T, CBC, HS TROP, PTT, CK, BNP, BMP, HEPATIC #### [facility] [address] [place] [address] Serum or plasma non-glucuron idated bilirubin measurement (mass/volume)Ordered By: Shakir Tsai on 03-19-2024 Bilirubin.indirect [Mass/Vol] 0.4 mg/dL [facility] Sodium [Moles/volume] in Ser um or PlasmaOrdered By: Shakir Tsai on 03-19-2024 Sodium [Moles/Vol] 134 mmol/L Low 136-145 [facility] Comment on above: Performed By: #### P T, CBC, HS TROP, PTT, CK, BNP, BMP, HEPATIC #### [facility] [address] [place] [address] Urea nitrogen [Mass/volume] in Serum or PlasmaOrdered By: Shakir Tsai on 03-19-2024 Urea nitrogen [Mass/Vol] 29 mg/dL High 7-25 [facility] Comment on above: Performed By: #### P T, CBC, HS TROP, PTT, CK, BNP, BMP, HEPATIC #### [facility] [address] Basic Metabolic Panelon 03-03 Anion gap [Moles/Vol] 11.7 mmol/L Normal 6.0-15.0 [facility] Comment on above: Performed By: #### H EPATIC BMP, CBC ####[address] Calcium [Mass/Vol] 7.9 mg/dL Low 8.6-10.3 [facility] Comment on above: Performed By: #### H EPAOUMAR BMP, CBC ####[address] Chloride [Moles/Vol] 103 mmol/L Normal 98-107 [facility] Comment on above: Performed By: #### H EPAOUMAR BMP, CBC ####[address] CO2 [Moles/Vol] 22.0 mmol/L Normal 21.0-31.0 [facility] Comment on above: Performed By: #### H EPAOUMAR BMP, CBC ####[address] Creatinine [Mass/Vol] 1.51 mg/dL High 0.70-1.30 [facility] Comment on above: Performed By: #### H EPATIC BMP, CBC ####[address] Creatinine Clr Calc Pharmacy 45.35 Normal [facility] Comment on above: Result Comment: PERF ORMED BY: [facility] [address] [place] [address] PATHOLOGIST [employer] OFFICER PAM BISHOP M.D. Performed By: #### H EPAOUMAR BMP, CBC ####[address] GFR/1.73 sq M.predicted MDRD (S/P/Bld) [Vol rate/Area] 46.982 mL/min/{1.73_m2} Normal [facility] Comment on above: Performed By: #### H PIA CONTEH, CBC ####[place] [id number] Glucose [Mass/Vol] 93 mg/dL Normal 70-100 [facility] Comment on above: Result Comment: [place] Glucose Reference Range is dependent on time and content of last meal. Glucose of more than 200 mg/dL in a nonstressed, ambulatory subject supports the diagnosis of Diabetes Mellitus. ADA recommended reference range Performed By: #### H WERO BMP, CBC ####[place] [id number] Potassium [Moles/Vol] 3.7 mmol/L Normal 3.5-5.1 [facility] Comment on above: Performed By: #### H WERO BMP, CBC ####[address] Sodium [Moles/Vol] 133 mmol/L Low 136-145 [facility] Comment on above: Performed By: #### H PIA CONTEH, CBC ####[address] Urea nitrogen [Mass/Vol] 32 mg/dL High 7-25 [facility] Comment on above: Performed By: #### H WERO BMP, CBC ####[address] Complete Blood Count Auto Di ffon 03-18-2024 Basophils (Bld) [#/Vol] 0.0 10*3/uL Normal 0.0-0.2 [facility] Comment on above: Result Comment: PERF ORMED BY: [facility] [address] [place] [address] PATHOLOGIST [employer] OFFICER PAM BISHOP M.D. Performed By: #### H WERO BMP, CBC ####[address] Basophils/100 WBC (Bld) 0.1 % Normal . [facility] Comment on above: Performed By: #### H EPATIC, BMP, CBC ####[address] Eosinophils (Bld) [#/Vol] 0.1 10*3/uL Normal 0.0-0.45 [facility] Comment on above: Performed By: #### H EPATIC, BMP, CBC ####[address] Eosinophils/100 WBC (Bld) 0.7 % Normal . [facility] Comment on above: Performed By: #### H EPATIC, BMP, CBC ####[address] Erythrocyte distribution width (RBC) [Ratio] 14.3 % Normal 12.0-14.8 [facility] Comment on above: Performed By: #### H EPATIC, BMP, CBC ####[address] Hematocrit (Bld) [Volume fraction] 32.5 % Low 38.8-50.0 [facility] Comment on above: Performed By: #### H EPATIC, BMP, CBC ####[address] Hemoglobin (Bld) [Mass/Vol] 11.0 g/dL Low 13.0-17.0 [facility] Comment on above: Performed By: #### H EPATIC, BMP, CBC ####[address] Lymphocytes (Bld) [#/Vol] 0.4 10*3/uL Low 1.00-4.8 [facility] Comment on above: Performed By: #### H EPATIC, BMP, CBC ####[address] Lymphocytes/100 WBC (Bld) 2.2 % Normal . [facility] Comment on above: Performed By: #### H EPATIC, BMP, CBC ####[address] MCH (RBC) [Entitic mass] 33.9 pg Normal 27.5-35.2 [facility] Comment on above: Performed By: #### H PIA CONTEH, CBC ####[address] MCV (RBC) [Entitic vol] 100.3 fL Normal 83.5-101 [facility] Comment on above: Performed By: #### H PIA CONTEH, CBC ####[address] Mean Corpuscular HGB Conc 33.8 g/dL Normal 32.5-35.6 [facility] Comment on above: Performed By: #### H PIA CONTEH, CBC ####[address] Monocytes (Bld) [#/Vol] 2.2 10*3/uL High 0.0-0.8 [facility] Comment on above: Performed By: #### H PIA CONTEH, CBC ####[address] Monocytes/100 WBC (Bld) 11.8 % Normal . [facility] Comment on above: Performed By: #### H PIA CONTEH, CBC ####[address] Neutrophils (Bld) [#/Vol] 15.6 10*3/uL High 1.8-7.7 [facility] Comment on above: Performed By: #### H PIA CONTEH, CBC ####[address] Neutrophils/100 WBC (Bld) 85.2 % Normal . [facility] Comment on above: Performed By: #### H WERO BMP, CBC ####[address] NRBC% 0.1 /100{WBC} Normal 0-0.5 [facility] Comment on above: Performed By: #### H WERO BMP, CBC ####[address] Platelet mean volume (Bld) [Entitic vol] 9.7 fL Normal 6.6-10.1 [facility] Comment on above: Performed By: #### H PIA CONTEH, CBC ####[address] Platelets (Bld) [#/Vol] 152 10*3/uL Normal 150-450 [facility] Comment on above: Performed By: #### H WERO BMP, CBC ####[address] RBC (Bld) [#/Vol] 3.24 10*6/uL Low 3.90-5.60 [facility] Comment on above: Performed By: #### H PIA CONTEH, CBC ####[address] WBC (Bld) [#/Vol] 18.3 10*3/uL High 4.1-10.5 [facility] Comment on above: Performed By: #### H PIA CONTEH, CBC ####[address] Hepatic Panelon 03-18-2024 Albumin [Mass/Vol] 2.9 g/dL Low 3.5-5.7 [facility] Comment on above: Performed By: #### H PIA CONTEH, CBC ####[address] Albumin/Globulin [Mass ratio] 1.1 {ratio} Normal [facility] Comment on above: Performed By: #### H WERO BMP, CBC ####[address] ALP [Catalytic activity/Vol] 59 U/L Normal 34-104 [facility] Comment on above: Performed By: #### H EPAOUMAR BMP, CBC ####[address] ALT [Catalytic activity/Vol] 105 U/L High 7-52 [facility] Comment on above: Performed By: #### H EPATIC, BMP, CBC ####[place] [address] AST [Catalytic activity/Vol] 56 U/L High 13-39 [facility] Comment on above: Performed By: #### H EPATIC, BMP, CBC ####[place] [address] Bilirubin [Mass/Vol] 0.6 mg/dL Normal 0.3-1.0 [facility] Comment on above: Performed By: #### H EPATIC, BMP, CBC ####[place] [address] Bilirubin,Indirect 0.3 mg/dL Normal [facility] Comment on above: Performed By: #### H EPATIC, BMP, CBC ####[place] [address] Bilirubin.indirect [Mass/Vol] 0.30 mg/dL High 0.03-0.18 [facility] Comment on above: Performed By: #### H EPATIC, BMP, CBC ####[address] Globulin (S) [Mass/Vol] 2.7 g/dL Normal [facility] Comment on above: Performed By: #### H EPATIC, BMP, CBC ####[address] Protein [Mass/Vol] 5.6 g/dL Low 6.4-8.9 [facility] Comment on above: Performed By: #### H EPATIC, BMP, CBC ####[address] Basic Metabolic Panelon 03-03 Anion gap [Moles/Vol] 10.9 mmol/L Normal 6.0-15.0 [facility] Comment on above: Performed By: #### P T, CBC, HS TROP, PTT, CK, BNP, BMP, HEPATIC #### [facility] [address] Calcium [Mass/Vol] 8.0 mg/dL Low 8.6-10.3 [facility] Comment on above: Performed By: #### P T, CBC, HS TROP, PTT, CK, BNP, BMP, HEPATIC #### [address] Chloride [Moles/Vol] 104 mmol/L Normal 98-107 [facility] Comment on above: Performed By: #### P T, CBC, HS TROP, PTT, CK, BNP, BMP, HEPATIC #### [address] CO2 [Moles/Vol] 22.0 mmol/L Normal 21.0-31.0 [facility] Comment on above: Performed By: #### P T, CBC, HS TROP, PTT, CK, BNP, BMP, HEPATIC #### [address] Creatinine [Mass/Vol] 1.80 mg/dL High 0.70-1.30 [facility] Comment on above: Performed By: #### P T, CBC, HS TROP, PTT, CK, BNP, BMP, HEPATIC #### [place] [address] [place] Creatinine Clr Calc Pharmacy 38.04 Normal [facility] Comment on above: Performed By: #### P T, CBC, HS TROP, PTT, CK, BNP, BMP, HEPATIC #### [address] GFR/1.73 sq M.predicted MDRD (S/P/Bld) [Vol rate/Area] 38.052 mL/min/{1.73_m2} Normal [facility] Comment on above: Performed By: #### P T, CBC, HS TROP, PTT, CK, BNP, BMP, HEPATIC #### [address] Glucose [Mass/Vol] 95 mg/dL Normal 70-100 [facility] Comment on above: Result Comment: [facility] Glucose Reference Range is dependent on time and content of last meal. Glucose of more than 200 mg/dL in a nonstressed, ambulatory subject supports the diagnosis of Diabetes Mellitus. ADA recommended reference range Performed By: #### P T, CBC, HS TROP, PTT, CK, BNP, BMP, HEPATIC #### [address] Potassium [Moles/Vol] 3.9 mmol/L Normal 3.5-5.1 [facility] Comment on above: Performed By: #### P T, CBC, HS TROP, PTT, CK, BNP, BMP, HEPATIC #### [address] Sodium [Moles/Vol] 133 mmol/L Low 136-145 [facility] Comment on above: Performed By: #### P T, CBC, HS TROP, PTT, CK, BNP, BMP, HEPATIC #### [address] Urea nitrogen [Mass/Vol] 38 mg/dL High 7-25 [facility] Comment on above: Performed By: #### P T, CBC, HS TROP, PTT, CK, BNP, BMP, HEPATIC #### [address] Complete Blood Count Auto Di ffon 03-17-2024 Basophils (Bld) [#/Vol] 0.1 10*3/uL Normal 0.0-0.2 [facility] Comment on above: Result Comment: PERF ORMED BY: [place] [address] PATHOLOGIST [employer] OFFICER PAM BISHOP M.D. Performed By: #### P T, CBC, HS TROP, PTT, CK, BNP, BMP, HEPATIC #### [address] Basophils/100 WBC (Bld) 0.4 % Normal . [facility] Comment on above: Performed By: #### P T, CBC, HS TROP, PTT, CK, BNP, BMP, HEPATIC #### [address] Eosinophils (Bld) [#/Vol] 0.0 10*3/uL Normal 0.0-0.45 [facility] Comment on above: Performed By: #### P T, CBC, HS TROP, PTT, CK, BNP, BMP, HEPATIC #### [address] Eosinophils/100 WBC (Bld) 0.2 % Normal . [facility] Comment on above: Performed By: #### P T, CBC, HS TROP, PTT, CK, BNP, BMP, HEPATIC #### [address] Erythrocyte distribution width (RBC) [Ratio] 14.2 % Normal 12.0-14.8 [facility] Comment on above: Performed By: #### P T, CBC, HS TROP, PTT, CK, BNP, BMP, HEPATIC #### [address] Hematocrit (Bld) [Volume fraction] 32.5 % Low 38.8-50.0 [facility] Comment on above: Performed By: #### P T, CBC, HS TROP, PTT, CK, BNP, BMP, HEPATIC #### [address] Hemoglobin (Bld) [Mass/Vol] 11.0 g/dL Low 13.0-17.0 [facility] Comment on above: Performed By: #### P T, CBC, HS TROP, PTT, CK, BNP, BMP, HEPATIC #### [address] Lymphocytes (Bld) [#/Vol] 0.5 10*3/uL Low 1.00-4.8 [facility] Comment on above: Performed By: #### P T, CBC, HS TROP, PTT, CK, BNP, BMP, HEPATIC #### [address] Lymphocytes/100 WBC (Bld) 2.5 % Normal . [facility] Comment on above: Performed By: #### P T, CBC, HS TROP, PTT, CK, BNP, BMP, HEPATIC #### [address] [address] [place] MCH (RBC) [Entitic mass] 33.9 pg Normal 27.5-35.2 [facility] Comment on above: Performed By: #### P T, CBC, HS TROP, PTT, CK, BNP, BMP, HEPATIC #### [address] MCV (RBC) [Entitic vol] 99.6 fL Normal 83.5-101 [facility] Comment on above: Performed By: #### P T, CBC, HS TROP, PTT, CK, BNP, BMP, HEPATIC #### [address] Mean Corpuscular HGB Conc 34.0 g/dL Normal 32.5-35.6 [facility] Comment on above: Performed By: #### P T, CBC, HS TROP, PTT, CK, BNP, BMP, HEPATIC #### [address] Monocytes (Bld) [#/Vol] 1.5 10*3/uL High 0.0-0.8 [facility] Comment on above: Performed By: #### P T, CBC, HS TROP, PTT, CK, BNP, BMP, HEPATIC #### [address] Monocytes/100 WBC (Bld) 7.3 % Normal . [facility] Comment on above: Performed By: #### P T, CBC, HS TROP, PTT, CK, BNP, BMP, HEPATIC #### [address] Neutrophils (Bld) [#/Vol] 17.9 10*3/uL High 1.8-7.7 [facility] Comment on above: Performed By: #### P T, CBC, HS TROP, PTT, CK, BNP, BMP, HEPATIC #### [address] Neutrophils/100 WBC (Bld) 89.6 % Normal . [facility] Comment on above: Performed By: #### P T, CBC, HS TROP, PTT, CK, BNP, BMP, HEPATIC #### [address] NRBC% 0.1 /100{WBC} Normal 0-0.5 [facility] Comment on above: Performed By: #### P T, CBC, HS TROP, PTT, CK, BNP, BMP, HEPATIC #### [address] Platelet mean volume (Bld) [Entitic vol] 9.7 fL Normal 6.6-10.1 [facility] Comment on above: Performed By: #### P T, CBC, HS TROP, PTT, CK, BNP, BMP, HEPATIC #### [address] Platelets (Bld) [#/Vol] 135 10*3/uL Low 150-450 [facility] [facility] Comment on above: Performed By: #### P T, CBC, HS TROP, PTT, CK, BNP, BMP, HEPATIC #### [address] RBC (Bld) [#/Vol] 3.26 10*6/uL Low 3.90-5.60 [facility] Comment on above: Performed By: #### P T, CBC, HS TROP, PTT, CK, BNP, BMP, HEPATIC #### [address] WBC (Bld) [#/Vol] 20.0 10*3/uL High 4.1-10.5 [facility] Comment on above: Performed By: #### P T, CBC, HS TROP, PTT, CK, BNP, BMP, HEPATIC #### [address] Cortisolon 03-17-2024 Cortisol 32.0 ug/dL Normal [facility] Comment on above: Result Comment: Refe rence range: AM 6 - 24 ug/dl PM <10 ug/dl [facility] security site supervisor and method: CHA UNICEL DXI, POLYCLONAL ANTIBODY CORTISOL ASSAY. PERFORMED BY: [place] [address] PATHOLOGIST GROUND INTELLIGENCE OFFICER PAM BISHOP M.D. Performed By: #### P T, CBC, HS TROP, PTT, CK, BNP, BMP, HEPATIC #### [facility] [address] Hepatic Panelon 03-17-2024 Albumin [Mass/Vol] 2.9 g/dL Low 3.5-5.7 [facility] Comment on above: Performed By: #### P T, CBC, HS TROP, PTT, CK, BNP, BMP, HEPATIC #### [address] Albumin/Globulin [Mass ratio] 1.1 {ratio} Normal [facility] Comment on above: Performed By: #### P T, CBC, HS TROP, PTT, CK, BNP, BMP, HEPATIC #### [address] ALP [Catalytic activity/Vol] 49 U/L Normal 34-104 [facility] Comment on above: Performed By: #### P T, CBC, HS TROP, PTT, CK, BNP, BMP, HEPATIC #### [place] [address] [place] ALT [Catalytic activity/Vol] 137 U/L High 7-52 [facility] Comment on above: Performed By: #### P T, CBC, HS TROP, PTT, CK, BNP, BMP, HEPATIC #### [place] [address] [place] AST [Catalytic activity/Vol] 61 U/L High 13-39 [facility] Comment on above: Performed By: #### P T, CBC, HS TROP, PTT, CK, BNP, BMP, HEPATIC #### [address] Bilirubin [Mass/Vol] 0.7 mg/dL Normal 0.3-1.0 [facility] Comment on above: Performed By: #### P T, CBC, HS TROP, PTT, CK, BNP, BMP, HEPATIC #### [place] [address] [place] Bilirubin,Indirect 0.5 mg/dL Normal [facility] Comment on above: Performed By: #### P T, CBC, HS TROP, PTT, CK, BNP, BMP, HEPATIC #### [address] Bilirubin.indirect [Mass/Vol] 0.20 mg/dL High 0.03-0.18 [facility] Comment on above: Performed By: #### P T, CBC, HS TROP, PTT, CK, BNP, BMP, HEPATIC #### [address] Globulin (S) [Mass/Vol] 2.6 g/dL Normal [facility] Comment on above: Performed By: #### P T, CBC, HS TROP, PTT, CK, BNP, BMP, HEPATIC #### [address] Protein [Mass/Vol] 5.5 g/dL Low 6.4-8.9 [facility] Comment on above: Performed By: #### P T, CBC, HS TROP, PTT, CK, BNP, BMP, HEPATIC #### [address] Lactate [Moles/volume] in Se rum or PlasmaOrdered By: Shakir Tsai on 03-17-2024 Lactate [Moles/Vol] 1.1 mmol/L Normal 0.5-2.2 [facility] Comment on above: Result Comment: PERF ORMED BY: [place] [address] PATHOLOGIST GROUND INTELLIGENCE OFFICER PAM BISHOP M.D. Performed By: #### P T, CBC, HS TROP, PTT, CK, BNP, BMP, HEPATIC #### [address] Random cortisol measurementO rdered By: Shakir Tsai on 03-17-2024 Cortisol [Mass/Vol] 32.0 ug/dL [facility] Comment on above: [facility] security site supervisor and method:CHA UNICEL DXI, POLYCLONAL ANTIBODY CORTISOL ASSAY.Reference range: AM 6 - 24 ug/dl PM <10 ug/dl Activated partial thrombopla stin time (aPTT) in platelet poor plasma by coagulation aOrdered By: Shakir Tsai on 03-16-2024 aPTT Coag (PPP) [Time] 27.5 s 25.1-36.5 [facility] Comment on above: A hematocrit value g reater than 55% may lead to inaccurate results in coagulation testing. Patients having hematocrit values >55% require a special collection tube for coagulation studies. Please contact the laboratory at [phone] for redraw instructions. BNP ser/plasOrdered By: Stephen nurcristian Candida on 03-16-2024 Natriuretic peptide B (Bld) [Mass/Vol] 208.0 pg/mL High 5-100 [facility] Comment on above: Result Comment: PERF ORMED BY: [place] [address] PATHOLOGIST GROUND INTELLIGENCE OFFICER PAM BISHOP M.D. Performed By: #### B SUPERVISOR DEHYDROGENATION ####[address] Bacterial blood cultureOrder ed By: Shakir Tsai on 03-16-2024 Bacteria identified Cx Nom (Bld) NO GROWTH 5 DAYS [facility] Bacteria identified Cx Nom (Bld) NO GROWTH 5 DAYS [facility] Basic Metabolic Panelon 03-03 Anion gap [Moles/Vol] 11.6 mmol/L Normal 6.0-15.0 [facility] Comment on above: Performed By: #### P T, CBC, HS TROP, PTT, CK, BNP, BMP, HEPATIC #### [facility] [address] [place] [address] [place] Calcium [Mass/Vol] 8.1 mg/dL Low 8.6-10.3 [facility] Comment on above: Performed By: #### P T, CBC, HS TROP, PTT, CK, BNP, BMP, HEPATIC #### [facility] [address] [place] [address] [place] Chloride [Moles/Vol] 101 mmol/L Normal 98-107 [facility] Comment on above: Performed By: #### P T, CBC, HS TROP, PTT, CK, BNP, BMP, HEPATIC #### [address] CO2 [Moles/Vol] 23.3 mmol/L Normal 21.0-31.0 [facility] Comment on above: Performed By: #### P T, CBC, HS TROP, PTT, CK, BNP, BMP, HEPATIC #### [address] Creatinine [Mass/Vol] 2.01 mg/dL High 0.70-1.30 [facility] Comment on above: Performed By: #### P T, CBC, HS TROP, PTT, CK, BNP, BMP, HEPATIC #### [address] Creatinine Clr Calc Pharmacy 34.00 Normal [facility] Comment on above: Performed By: #### P T, CBC, HS TROP, PTT, CK, BNP, BMP, HEPATIC #### [address] GFR/1.73 sq M.predicted MDRD (S/P/Bld) [Vol rate/Area] 33.332 mL/min/{1.73_m2} Normal [facility] Comment on above: Performed By: #### P T, CBC, HS TROP, PTT, CK, BNP, BMP, HEPATIC #### [address] Glucose [Mass/Vol] 141 mg/dL High 70-100 [facility] Comment on above: Result Comment: [place] Glucose Reference Range is dependent on time and content of last meal. Glucose of more than 200 mg/dL in a nonstressed, ambulatory subject supports the diagnosis of Diabetes Mellitus. ADA recommended reference range Performed By: #### P T, CBC, HS TROP, PTT, CK, BNP, BMP, HEPATIC #### [address] Potassium [Moles/Vol] 3.9 mmol/L Normal 3.5-5.1 [facility] Comment on above: Performed By: #### P T, CBC, HS TROP, PTT, CK, BNP, BMP, HEPATIC #### [address] Sodium [Moles/Vol] 132 mmol/L Low 136-145 [facility] Comment on above: Performed By: #### P T, CBC, HS TROP, PTT, CK, BNP, BMP, HEPATIC #### [address] Urea nitrogen [Mass/Vol] 39 mg/dL High 7-25 [facility] Comment on above: Performed By: #### P T, CBC, HS TROP, PTT, CK, BNP, BMP, HEPATIC #### [address] Anion gap [Moles/Vol] 11.2 mmol/L Normal 6.0-15.0 [facility] Comment on above: Performed By: #### P T, CBC, HS TROP, PTT, CK, BNP, BMP, HEPATIC #### [address] Calcium [Mass/Vol] 8.1 mg/dL Low 8.6-10.3 [facility] Comment on above: Performed By: #### P T, CBC, HS TROP, PTT, CK, BNP, BMP, HEPATIC #### [address] Chloride [Moles/Vol] 103 mmol/L Normal 98-107 [facility] Comment on above: Performed By: #### P T, CBC, HS TROP, PTT, CK, BNP, BMP, HEPATIC #### [address] CO2 [Moles/Vol] 24.1 mmol/L Normal 21.0-31.0 [facility] Comment on above: Performed By: #### P T, CBC, HS TROP, PTT, CK, BNP, BMP, HEPATIC #### [address] Creatinine [Mass/Vol] 1.96 mg/dL High 0.70-1.30 [facility] Comment on above: Performed By: #### P T, CBC, HS TROP, PTT, CK, BNP, BMP, HEPATIC #### [facility] [address] Creatinine Clr Calc Pharmacy 34.87 Normal [facility] Comment on above: Performed By: #### P T, CBC, HS TROP, PTT, CK, BNP, BMP, HEPATIC #### [facility] [address] GFR/1.73 sq M.predicted MDRD (S/P/Bld) [Vol rate/Area] 34.355 mL/min/{1.73_m2} Normal [facility] Comment on above: Performed By: #### P T, CBC, HS TROP, PTT, CK, BNP, BMP, HEPATIC #### [address] Glucose [Mass/Vol] 95 mg/dL Normal 70-100 [facility] Comment on above: Result Comment: [facility] Glucose Reference Range is dependent on time and content of last meal. Glucose of more than 200 mg/dL in a nonstressed, ambulatory subject supports the diagnosis of Diabetes Mellitus. ADA recommended reference range Performed By: #### P T, CBC, HS TROP, PTT, CK, BNP, BMP, HEPATIC #### [address] Potassium [Moles/Vol] 4.3 mmol/L Normal 3.5-5.1 [facility] Comment on above: Performed By: #### P T, CBC, HS TROP, PTT, CK, BNP, BMP, HEPATIC #### [address] Sodium [Moles/Vol] 134 mmol/L Low 136-145 [facility] Comment on above: Performed By: #### P T, CBC, HS TROP, PTT, CK, BNP, BMP, HEPATIC #### [address] Urea nitrogen [Mass/Vol] 37 mg/dL High 7-25 [facility] Comment on above: Performed By: #### P T, CBC, HS TROP, PTT, CK, BNP, BMP, HEPATIC #### [address] Blood Cultureon 03-16-2024 Bacteria identified Cx Nom (Bld) NO GROWTH 5 DAYS PERFORMED BY: [place] [address] PATHOLOGIST GROUND INTELLIGENCE OFFICER PAM Allen [facility] Comment on above: Performed By: #### P T, CBC, HS TROP, PTT, CK, BNP, BMP, HEPATIC #### [address] Bacteria identified Cx Nom (Bld) NO GROWTH 5 DAYS PERFORMED BY: [place] [address] PATHOLOGIST GROUND INTELLIGENCE OFFICER PAM BISHOP M.D. Normal [facility] Comment on above: Performed By: #### P T, CBC, HS TROP, PTT, CK, BNP, BMP, HEPATIC #### [address] abdomen pelvis wo/w conon 03-16-2024 CT abdomen pelvis wo/w con [facility] [place] [address] [place] [address] CT Scan Report Signed Patient: Shawna Hernandes MR#: [id number] : 1945 Acct:[id number] Age/Sex: 79 / M ADM Date: 03/15/24 Loc: Room: [address] [place] [address] Type: ADM IN Attending Dr: Shakir Tsai DO Copies to: Shakir Tsai DO Ordering Provider: Shakir Tsai DO Date of Service: 03/16/24 CT/CT abdomen pelvis wo/w con: refractory pain abdominal pain. LFT elevation CT ABDOMEN AND PELVIS WITHOUT AND WITH INTRAVENOUS CONTRAST CLINICAL DATA: Abdominal pain. Elevated liver functions. COMPARISON: 03/14/2024 Spiral images were obtained through the abdomen and pelvis before and after intravenous administration of 90 mL Isovue-300. Patient also received oral contrast. This CT exam was performed using one or more following dose reduction techniques: Automated exposure control, adjustment of the mA and/or kV according to patient size, or use of iterative reconstruction technique. Limited cuts through the lung bases show a trace amount of developing pleural fusion on the right where there is adjacent lower lobe consolidation or bronchograms. There is also basilar atelectasis on the left. Bilateral gynecomastia is seen. There is streak artifact through the upper abdomen from patient's arms. No calcified gallstones are identified. Borderline gallbladder wall thickening and mild pericholecystic inflammatory change is present. This is new. No intrahepatic lesions are identified. The spleen, pancreas and adrenal glands show no acute findings. There are bilateral symmetric renal nephrograms, without hydronephrosis. There are right renal cysts. Atherosclerotic plaque at the aorta, iliac and some of the visceral arteries is again noted. There is no aneurysm or dissection. No enlarged lymph nodes, ascites or free air are seen. The pericholecystic inflammatory change described above also surrounds the hepatic flexure and the duodenum where the could be slight wall thickening. There are scattered colonic diverticula, including on the right. There is air and stool within the colon. There are no dilated small bowel loops. There are multilevel degenerative changes at the spine. The T11 and L1 compression deformities were present on the prior. Images through the pelvis show no dilated small bowel. No appendiceal inflammation is present. There is mild distal colonic stool. There is additional diverticular disease, without associated active inflammation. No urinary bladder abnormalities are present. No ascites is seen. There is an intramuscular lipoma involving the quadriceps on the right on the final images. CT/CT abdomen pelvis wo/w con IMPRESSION: WORSENING BIBASILAR PROBABLE CHANGES AND TINY DEVELOPING RIGHT PLEURAL EFFUSION. DEVELOPING RIGHT UPPER QUADRANT INFLAMMATORY CHANGE ASSOCIATED WITH THE GALLBLADDER, HEPATIC FLEXURE AND DUODENUM. THERE IS NEW SLIGHT WALL THICKENING AT THE GALLBLADDER AND DUODENUM. CLINICAL CORRELATION IS RECOMMENDED TO DETERMINE FROM WHICH SITE THIS HAS ORIGINATED. DIVERTICULOSIS. RIGHT RENAL CYSTS. NO BOWEL OR URINARY TRACT OBSTRUCTION. Impression dictated by: Sharyn Cole M.D.03/16/2024 2:05 PM Dictation Location: [place] [address] Transcribed By: LIANG 03/16/24 1403 Dictated By: Sharyn Cole MD 03/16/24 1352 Signed By: 03/16/24 1407 Normal [facility] Coagulation Profileon 2023 aPTT Coag (Bld) [Time] 27.5 s Normal 25.1-36.5 [facility] Comment on above: Result Comment: A he matocrit value greater than 55% may lead to inaccurate results in coagulation testing. Patients having hematocrit values >55% require a special collection tube for coagulation studies. Please contact the laboratory at [phone] for redraw instructions. PERFORMED BY: [place] [address] PATHOLOGIST GROUND INTELLIGENCE OFFICER PAM BISHOP M.D. Performed By: #### P T, CBC, HS TROP, PTT, CK, BNP, BMP, HEPATIC #### [address] Complete Blood Count Auto Di ffon 03-16-2024 Basophils (Bld) [#/Vol] 0.0 10*3/uL Normal 0.0-0.2 [facility] Comment on above: Result Comment: PERF ORMED BY: [place] [address] PATHOLOGIST GROUND INTELLIGENCE OFFICER PAM BISHOP M.D. Performed By: #### P T, CBC, HS TROP, PTT, CK, BNP, BMP, HEPATIC #### [address] Basophils/100 WBC (Bld) 0.1 % Normal . [facility] Comment on above: Performed By: #### P T, CBC, HS TROP, PTT, CK, BNP, BMP, HEPATIC #### [address] Eosinophils (Bld) [#/Vol] 0.0 10*3/uL Normal 0.0-0.45 [facility] Comment on above: Performed By: #### P T, CBC, HS TROP, PTT, CK, BNP, BMP, HEPATIC #### [place] [address] [place] Eosinophils/100 WBC (Bld) 0.1 % Normal . [facility] Comment on above: Performed By: #### P T, CBC, HS TROP, PTT, CK, BNP, BMP, HEPATIC #### [address] [address] [place] Erythrocyte distribution width (RBC) [Ratio] 14.1 % Normal 12.0-14.8 [facility] Comment on above: Performed By: #### P T, CBC, HS TROP, PTT, CK, BNP, BMP, HEPATIC #### [address] Hematocrit (Bld) [Volume fraction] 33.6 % Low 38.8-50.0 [facility] Comment on above: Performed By: #### P T, CBC, HS TROP, PTT, CK, BNP, BMP, HEPATIC #### [address] Hemoglobin (Bld) [Mass/Vol] 11.2 g/dL Low 13.0-17.0 [facility] Comment on above: Performed By: #### P T, CBC, HS TROP, PTT, CK, BNP, BMP, HEPATIC #### [address] Lymphocytes (Bld) [#/Vol] 0.4 10*3/uL Low 1.00-4.8 [facility] Comment on above: Performed By: #### P T, CBC, HS TROP, PTT, CK, BNP, BMP, HEPATIC #### [address] Lymphocytes/100 WBC (Bld) 1.7 % Normal . [facility] Comment on above: Performed By: #### P T, CBC, HS TROP, PTT, CK, BNP, BMP, HEPATIC #### [address] MCH (RBC) [Entitic mass] 33.7 pg Normal 27.5-35.2 [facility] Comment on above: Performed By: #### P T, CBC, HS TROP, PTT, CK, BNP, BMP, HEPATIC #### [address] MCV (RBC) [Entitic vol] 100.7 fL Normal 83.5-101 [facility] Comment on above: Performed By: #### P T, CBC, HS TROP, PTT, CK, BNP, BMP, HEPATIC #### [address] Mean Corpuscular HGB Conc 33.5 g/dL Normal 32.5-35.6 [facility] Comment on above: Performed By: #### P T, CBC, HS TROP, PTT, CK, BNP, BMP, HEPATIC #### [address] Monocytes (Bld) [#/Vol] 1.1 10*3/uL High 0.0-0.8 [facility] Comment on above: Performed By: #### P T, CBC, HS TROP, PTT, CK, BNP, BMP, HEPATIC #### [address] Monocytes/100 WBC (Bld) 4.5 % Normal . [facility] Comment on above: Performed By: #### P T, CBC, HS TROP, PTT, CK, BNP, BMP, HEPATIC #### [address] Neutrophils (Bld) [#/Vol] 22.8 10*3/uL High 1.8-7.7 [facility] Comment on above: Performed By: #### P T, CBC, HS TROP, PTT, CK, BNP, BMP, HEPATIC #### [address] Neutrophils/100 WBC (Bld) 93.6 % Normal . [facility] Comment on above: Performed By: #### P T, CBC, HS TROP, PTT, CK, BNP, BMP, HEPATIC #### [address] NRBC% 0.0 /100{WBC} Normal 0-0.5 [facility] Comment on above: Performed By: #### P T, CBC, HS TROP, PTT, CK, BNP, BMP, HEPATIC #### [address] Platelet mean volume (Bld) [Entitic vol] 9.8 fL Normal 6.6-10.1 [facility] Comment on above: Performed By: #### P T, CBC, HS TROP, PTT, CK, BNP, BMP, HEPATIC #### [address] Platelets (Bld) [#/Vol] 138 10*3/uL Low 150-450 [facility] Comment on above: Performed By: #### P T, CBC, HS TROP, PTT, CK, BNP, BMP, HEPATIC #### [address] RBC (Bld) [#/Vol] 3.33 10*6/uL Low 3.90-5.60 [facility] Comment on above: Performed By: #### P T, CBC, HS TROP, PTT, CK, BNP, BMP, HEPATIC #### [address] WBC (Bld) [#/Vol] 24.3 10*3/uL High 4.1-10.5 [facility] Comment on above: Performed By: #### P T, CBC, HS TROP, PTT, CK, BNP, BMP, HEPATIC #### [address] Basophils (Bld) [#/Vol] 0.0 10*3/uL Normal 0.0-0.2 [facility] Comment on above: Result Comment: PERF ORMED BY: [place] [address] PATHOLOGIST GROUND INTELLIGENCE OFFICER PAM BISHOP M.D. Performed By: #### P T, CBC, HS TROP, PTT, CK, BNP, BMP, HEPATIC #### [address] Basophils/100 WBC (Bld) 0.1 % Normal . [facility] Comment on above: Performed By: #### P T, CBC, HS TROP, PTT, CK, BNP, BMP, HEPATIC #### [address] Eosinophils (Bld) [#/Vol] 0.0 10*3/uL Normal 0.0-0.45 [facility] Comment on above: Performed By: #### P T, CBC, HS TROP, PTT, CK, BNP, BMP, HEPATIC #### [address] Eosinophils/100 WBC (Bld) 0.1 % Normal . [facility] Comment on above: Performed By: #### P T, CBC, HS TROP, PTT, CK, BNP, BMP, HEPATIC #### [address] Erythrocyte distribution width (RBC) [Ratio] 14.1 % Normal 12.0-14.8 [facility] Comment on above: Performed By: #### P T, CBC, HS TROP, PTT, CK, BNP, BMP, HEPATIC #### [address] Hematocrit (Bld) [Volume fraction] 32.6 % Low 38.8-50.0 [facility] Comment on above: Performed By: #### P T, CBC, HS TROP, PTT, CK, BNP, BMP, HEPATIC #### [address] Hemoglobin (Bld) [Mass/Vol] 10.9 g/dL Low 13.0-17.0 [facility] Comment on above: Performed By: #### P T, CBC, HS TROP, PTT, CK, BNP, BMP, HEPATIC #### [address] Lymphocytes (Bld) [#/Vol] 0.5 10*3/uL Low 1.00-4.8 [facility] Comment on above: Performed By: #### P T, CBC, HS TROP, PTT, CK, BNP, BMP, HEPATIC #### [address] Lymphocytes/100 WBC (Bld) 1.9 % Normal . [facility] Comment on above: Performed By: #### P T, CBC, HS TROP, PTT, CK, BNP, BMP, HEPATIC #### [address] MCH (RBC) [Entitic mass] 34.0 pg Normal 27.5-35.2 [facility] Comment on above: Performed By: #### P T, CBC, HS TROP, PTT, CK, BNP, BMP, HEPATIC #### [address] MCV (RBC) [Entitic vol] 101.3 fL High 83.5-101 [facility] Comment on above: Performed By: #### P T, CBC, HS TROP, PTT, CK, BNP, BMP, HEPATIC #### [address] Mean Corpuscular HGB Conc 33.6 g/dL Normal 32.5-35.6 [facility] Comment on above: Performed By: #### P T, CBC, HS TROP, PTT, CK, BNP, BMP, HEPATIC #### [address] Monocytes (Bld) [#/Vol] 2.2 10*3/uL High 0.0-0.8 [facility] Comment on above: Performed By: #### P T, CBC, HS TROP, PTT, CK, BNP, BMP, HEPATIC #### [address] Monocytes/100 WBC (Bld) 8.9 % Normal . [facility] Comment on above: Performed By: #### P T, CBC, HS TROP, PTT, CK, BNP, BMP, HEPATIC #### [address] Neutrophils (Bld) [#/Vol] 22.0 10*3/uL High 1.8-7.7 [facility] Comment on above: Performed By: #### P T, CBC, HS TROP, PTT, CK, BNP, BMP, HEPATIC #### [address] Neutrophils/100 WBC (Bld) 89.0 % Normal . [facility] Comment on above: Performed By: #### P T, CBC, HS TROP, PTT, CK, BNP, BMP, HEPATIC #### [address] NRBC% 0.0 /100{WBC} Normal 0-0.5 [facility] Comment on above: Performed By: #### P T, CBC, HS TROP, PTT, CK, BNP, BMP, HEPATIC #### [address] Platelet mean volume (Bld) [Entitic vol] 10.3 fL High 6.6-10.1 [facility] Comment on above: Performed By: #### P T, CBC, HS TROP, PTT, CK, BNP, BMP, HEPATIC #### [address] Platelets (Bld) [#/Vol] 130 10*3/uL Low 150-450 [facility] Comment on above: Performed By: #### P T, CBC, HS TROP, PTT, CK, BNP, BMP, HEPATIC #### [address] RBC (Bld) [#/Vol] 3.22 10*6/uL Low 3.90-5.60 [facility] Comment on above: Performed By: #### P T, CBC, HS TROP, PTT, CK, BNP, BMP, HEPATIC #### [address] WBC (Bld) [#/Vol] 24.7 10*3/uL High 4.1-10.5 [facility] Comment on above: Performed By: #### P T, CBC, HS TROP, PTT, CK, BNP, BMP, HEPATIC #### [address] Hepatic Panelon 03-16-2024 Albumin [Mass/Vol] 3.2 g/dL Low 3.5-5.7 [facility] Comment on above: Performed By: #### P T, CBC, HS TROP, PTT, CK, BNP, BMP, HEPATIC #### [address] Albumin/Globulin [Mass ratio] 1.2 {ratio} Normal [facility] Comment on above: Performed By: #### P T, CBC, HS TROP, PTT, CK, BNP, BMP, HEPATIC #### [address] ALP [Catalytic activity/Vol] 49 U/L Normal 34-104 [facility] Comment on above: Performed By: #### P T, CBC, HS TROP, PTT, CK, BNP, BMP, HEPATIC #### [address] ALT [Catalytic activity/Vol] 188 U/L High 7-52 [facility] Comment on above: Performed By: #### P T, CBC, HS TROP, PTT, CK, BNP, BMP, HEPATIC #### [address] AST [Catalytic activity/Vol] 101 U/L High 13-39 [facility] Comment on above: Performed By: #### P T, CBC, HS TROP, PTT, CK, BNP, BMP, HEPATIC #### [address] Bilirubin [Mass/Vol] 1.1 mg/dL High 0.3-1.0 [facility] Comment on above: Performed By: #### P T, CBC, HS TROP, PTT, CK, BNP, BMP, HEPATIC #### [address] Bilirubin,Indirect 0.7 mg/dL Normal [facility] Comment on above: Performed By: #### P T, CBC, HS TROP, PTT, CK, BNP, BMP, HEPATIC #### [address] Bilirubin.indirect [Mass/Vol] 0.40 mg/dL High 0.03-0.18 [facility] Comment on above: Performed By: #### P T, CBC, HS TROP, PTT, CK, BNP, BMP, HEPATIC #### [address] Globulin (S) [Mass/Vol] 2.6 g/dL Normal [facility] Comment on above: Performed By: #### P T, CBC, HS TROP, PTT, CK, BNP, BMP, HEPATIC #### [facility] [address] Protein [Mass/Vol] 5.8 g/dL Low 6.4-8.9 [facility] [facility] Comment on above: Performed By: #### P T, CBC, HS TROP, PTT, CK, BNP, BMP, HEPATIC #### [facility] [address] INR in Platelet poor plasma by Coagulation assayOrdered By: Shakir Tsai on 03-16-2024 INR Coag (PPP) [Relative time] 1.3 {INR} Normal [facility] Comment on above: INR Therapeutic Rang e A) Pre- and Peroperative OAT started two weeks before surgery. NOT HIP SURGERY: 1.5 - 2.5 HIP SURGERY: 2 - 3B) Primary and secondary prevention of venous THROMBOSIS: 2 - 3C) Active venous thrombosis, pulmonary embolismand prevention of recurrent venous thrombosis: 2 - 3D) Prevention of arterial thromboembolismincluding patients with mechanical heart valves: 3 - 4.5 Result Comment: INR Therapeutic Range A) Pre- and Peroperative OAT started two weeks before surgery. NOT HIP SURGERY: 1.5 - 2.5 HIP SURGERY: 2 - 3 B) Primary and secondary prevention of venous THROMBOSIS: 2 - 3 C) Active venous thrombosis, pulmonary embolism and prevention of recurrent venous thrombosis: 2 - 3 D) Prevention of arterial thromboembolism including patients with mechanical heart valves: 3 - 4.5 Performed By: #### P T, CBC, HS TROP, PTT, CK, BNP, BMP, HEPATIC #### [facility] [address] [place], [place] [id number] [facility] Lactic Acidon 03-16-2024 Lactate [Moles/Vol] 2.4 mmol/L Off scale high 0.5-2.2 T [facility] Comment on above: Result Comment: Crit ical Result : Called to and read back by: MARNIE DOLAN at: 03/16/2024 15:44 by:[id number] PERFORMED BY: [place] [address] PATHOLOGIST GROUND INTELLIGENCE OFFICER PAM BISHOP M.D. Performed By: #### P T, CBC, HS TROP, PTT, CK, BNP, BMP, HEPATIC #### [address] Lactic Acid Reflexon 024 Lactic Acid Reflex 2.4 mmol/L Off scale high 0.5-2.2 Th e [facility] Comment on above: Result Comment: Crit ical Result : Called to and read back by: SEAN JOHNS at: 03/16/2024 20:04:58 by:[id number] PERFORMED BY: [place] [address] PATHOLOGIST GROUND INTELLIGENCE OFFICER PAM BISHOP M.D. Performed By: #### P T, CBC, HS TROP, PTT, CK, BNP, BMP, HEPATIC #### [address] Lipase [Enzymatic activity/v olume] in Serum or PlasmaOrdered By: Shakir Tsai on 03-16-2024 Lipase [Catalytic activity/Vol] 5.0 U/L Low 11.0-82.0 [facility] Comment on above: Result Comment: PERF ORMED BY: [place] [address] PATHOLOGIST GROUND INTELLIGENCE OFFICER PAM BISHOP M.D. Performed By: #### P T, CBC, HS TROP, PTT, CK, BNP, BMP, HEPATIC #### [address] Magnesium [Mass/volume] in S raiza or PlasmaOrdered By: Shakir Tsai on 03-16-2024 Magnesium [Mass/Vol] 2.3 mg/dL Normal 1.9-2.7 [facility] Comment on above: Result Comment: PERF ORMED BY: [place] [address] PATHOLOGIST GROUND INTELLIGENCE OFFICER PAM BISHOP M.D. Performed By: #### P T, CBC, HS TROP, PTT, CK, BNP, BMP, HEPATIC #### [place] [id number] [facility] Prothrombin time (PT)Ordered By: Shakir Tsai on 03-16-2024 PT Coag (PPP) [Time] 14.9 s High 9.0-12.9 [facility] Comment on above: A hematocrit value g reater than 55% may lead to inaccurate results in coagulation testing. Patients having hematocrit values >55% require a special collection tube for coagulation studies. Please contact the laboratory at [phone] for redraw instructions. Result Comment: A he matocrit value greater than 55% may lead to inaccurate results in coagulation testing. Patients having hematocrit values >55% require a special collection tube for coagulation studies. Please contact the laboratory at [phone] for redraw instructions. Performed By: #### P T, CBC, HS TROP, PTT, CK, BNP, BMP, HEPATIC #### [address] [address] [facility] XR chest 1V portableon 03-16 XR chest 1V portable [facility] [place] [address] [place], [place] [id number] XRay Report Signed Patient: Shawna Hernandes MR#: [id number] : 1945 Acct:[id number] Age/Sex: 79 / M ADM Date: 03/15/24 Loc: Room: [address] [place] [address] Type: ADM IN Attending Dr: Shakir Tsai DO Copies to: Shakir Tsai DO Ordering Provider: Shakir Tsai DO Date of Service: 03/16/24 XR/XR chest 1V portable: tachypnea Plain film chest Single view HISTORY: Tachypnea COMPARISON: 02/08/24 FINDINGS: SUPPORT DEVICES: None POSTSURGICAL CHANGES: Cardiac device and abandoned leads unchanged HEART: Within normal limits PULMONARY BANG: Within normal limits MEDIASTINUM: Unremarkable LUNGS AND PLEURA: No acute lung process, pleural effusion or pneumothorax identified. BONY STRUCTURES: Intact ADDITIONAL FINDINGS None XR/XR chest 1V portable IMPRESSION: No acute process. Impression dictated by: Rashaun Shin M.D.03/16/2024 4:03 PM Dictation Location: [place] [address] Transcribed By: [facility] 03/16/24 1603 Dictated By: Rashaun Shin DO 03/16/24 1556 Signed By: 03/16/24 1603 Normal [facility] Cortisolon 03-15-2024 Cortisol 37.1 ug/dL Normal [facility] Comment on above: Result Comment: Refe rence range: AM 6 - 24 ug/dl PM <10 ug/dl [facility] security site supervisor and method: CHA UNICEL DXI, POLYCLONAL ANTIBODY CORTISOL ASSAY. PERFORMED BY: [place] [address] PATHOLOGIST GROUND INTELLIGENCE OFFICER PAM BIHSOP M.D. Performed By: #### P T, CBC, HS TROP, PTT, CK, BNP, BMP, HEPATIC #### [address] Hepatic Panelon 03-15-2024 Albumin [Mass/Vol] 3.5 g/dL Normal 3.5-5.7 [facility] Comment on above: Performed By: #### P T, CBC, HS TROP, PTT, CK, BNP, BMP, HEPATIC #### [address] Albumin/Globulin [Mass ratio] 1.4 {ratio} Normal [facility] Comment on above: Performed By: #### P T, CBC, HS TROP, PTT, CK, BNP, BMP, HEPATIC #### [address] ALP [Catalytic activity/Vol] 52 U/L Normal 34-104 [facility] Comment on above: Performed By: #### P T, CBC, HS TROP, PTT, CK, BNP, BMP, HEPATIC #### [address] ALT [Catalytic activity/Vol] 94 U/L High 7-52 [facility] Comment on above: Performed By: #### P T, CBC, HS TROP, PTT, CK, BNP, BMP, HEPATIC #### [address] AST [Catalytic activity/Vol] 61 U/L High 13-39 [facility] Comment on above: Performed By: #### P T, CBC, HS TROP, PTT, CK, BNP, BMP, HEPATIC #### [address] Bilirubin [Mass/Vol] 1.1 mg/dL High 0.3-1.0 [facility] Comment on above: Performed By: #### P T, CBC, HS TROP, PTT, CK, BNP, BMP, HEPATIC #### [address] Bilirubin,Indirect 0.8 mg/dL Normal [facility] Comment on above: Performed By: #### P T, CBC, HS TROP, PTT, CK, BNP, BMP, HEPATIC #### [address] Bilirubin.indirect [Mass/Vol] 0.30 mg/dL High 0.03-0.18 [facility] Comment on above: Performed By: #### P T, CBC, HS TROP, PTT, CK, BNP, BMP, HEPATIC #### [address] Globulin (S) [Mass/Vol] 2.5 g/dL Normal [facility] Comment on above: Performed By: #### P T, CBC, HS TROP, PTT, CK, BNP, BMP, HEPATIC #### [address] Protein [Mass/Vol] 6.0 g/dL Low 6.4-8.9 [facility] Comment on above: Performed By: #### P T, CBC, HS TROP, PTT, CK, BNP, BMP, HEPATIC #### [address] Lactic Acidon 03-15-2024 Lactate [Moles/Vol] 1.7 mmol/L Normal 0.5-2.2 [facility] Comment on above: Result Comment: PERF ORMED BY: [place] [address] PATHOLOGIST GROUND INTELLIGENCE OFFICER PAM BISHOP M.D. Performed By: #### P T, CBC, HS TROP, PTT, CK, BNP, BMP, HEPATIC #### [address] [address] [facility] Partial Thromboplastin Timeo n 03-15-2024 aPTT Coag (Bld) [Time] 26.1 s Normal 25.1-36.5 Th e [facility] Comment on above: Result Comment: A he matocrit value greater than 55% may lead to inaccurate results in coagulation testing. Patients having hematocrit values >55% require a special collection tube for coagulation studies. Please contact the laboratory at [phone] for redraw instructions. PERFORMED BY: [place] [id number] PATHOLOGIST GROUND INTELLIGENCE OFFICER PAM BISHOP M.D. Performed By: #### P T, CBC, HS TROP, PTT, CK, BNP, BMP, HEPATIC #### [place] [id number] [facility] Prothrombin Time INRon 03-15 INR Coag (PPP) [Relative time] 1.1 {INR} Normal [facility] Comment on above: Result Comment: INR Therapeutic Range A) Pre- and Peroperative OAT started two weeks before surgery. NOT HIP SURGERY: 1.5 - 2.5 HIP SURGERY: 2 - 3 B) Primary and secondary prevention of venous THROMBOSIS: 2 - 3 C) Active venous thrombosis, pulmonary embolism and prevention of recurrent venous thrombosis: 2 - 3 D) Prevention of arterial thromboembolism including patients with mechanical heart valves: 3 - 4.5 Performed By: #### P T, CBC, HS TROP, PTT, CK, BNP, BMP, HEPATIC #### [place] [id number] [facility] PT Coag (PPP) [Time] 12.8 s Normal 9.0-12.9 [facility] Comment on above: Result Comment: A he matocrit value greater than 55% may lead to inaccurate results in coagulation testing. Patients having hematocrit values >55% require a special collection tube for coagulation studies. Please contact the laboratory at [phone] for redraw instructions. Performed By: #### P T, CBC, HS TROP, PTT, CK, BNP, BMP, HEPATIC #### [address] [address] [facility] Thyrotropin [Units/volume] i n Serum or PlasmaOrdered By: Shakir Tsai on 03-15-2024 TSH Qn 0.34 m[IU]/L Low 0.45-5.33 [facility] Comment on above: Performed By: #### P T, CBC, HS TROP, PTT, CK, BNP, BMP, HEPATIC #### [address] Thyroxine (T4) free [Mass/vo lume] in Serum or PlasmaOrdered By: Shakir Tsai on 03-15-2024 Free T4 [Mass/Vol] 2.15 ng/dL High 0.61-1.12 [facility] Comment on above: Performed By: #### P T, CBC, HS TROP, PTT, CK, BNP, BMP, HEPATIC #### [facility] [address] [place] [address] Triiodothyronine (T3) Freeon 03-15-2024 Triiodothyronine (T3) Free 2.18 pg/mL Low 2.50-3.90 [facility] Comment on above: Result Comment: PERF ORMED BY: [place] [address] PATHOLOGIST GROUND INTELLIGENCE OFFICER PAM BISHOP M.D. Performed By: #### P T, CBC, HS TROP, PTT, CK, BNP, BMP, HEPATIC #### [address] Triiodothyronine (T3) Free [ Mass/volume] in Serum or PlasmaOrdered By: Shakir Tsai on 03-15-2024 Free T3 [Mass/Vol] 2.18 pg/mL Low 2.50-3.90 [facility] Alanine aminotransferase [En zymatic activity/volume] in Serum or PlasmaOrdered By: Osvaldo Vizcarra on 03-14-2024 ALT [Catalytic activity/Vol] 58 U/L High 7-52 [facility] Comment on above: Performed By: #### P T, CBC, HS TROP, PTT, CK, BNP, BMP, HEPATIC #### [place] [address] Albumin [Mass/volume] in Ser um or Plasma by Bromocresol green (BCG) dye binding methoOrdered By: Osvaldoflaquita Vizcarra on 03-14-2024 Albumin BCG dye [Mass/Vol] 3.9 g/dL 3.5-5.7 [facility] Alkaline phosphatase [Enzyma tic activity/volume] in Serum or PlasmaOrdered By: Osvaldo Vizcarra on 03-14-2024 ALP [Catalytic activity/Vol] 58 U/L Normal 34-104 [facility] Comment on above: Performed By: #### P T, CBC, HS TROP, PTT, CK, BNP, BMP, HEPATIC #### [address] Aspartate aminotransferase [ Enzymatic activity/volume] in Serum or PlasmaOrdered By: Osvaldo Vizcarra on 03-14-2024 AST [Catalytic activity/Vol] 33 U/L Normal 13-39 [facility] Comment on above: Performed By: #### P T, CBC, HS TROP, PTT, CK, BNP, BMP, HEPATIC #### [address] Automated basophil %Ordered By: Osvaldo Vizcarra on 03-14-2024 Basophils/100 WBC (Bld) 0.2 % Normal . [facility] Comment on above: Performed By: #### P T, CBC, HS TROP, PTT, CK, BNP, BMP, HEPATIC #### [address] Automated basophil countOrde red By: Osvaldo Vizcarra on 03-14-2024 Basophils (Bld) [#/Vol] 0.0 10*3/uL Normal 0.0-0.2 [facility] Comment on above: Result Comment: PERF ORMED BY: [place] [address] PATHOLOGIST GROUND INTELLIGENCE OFFICER PAM BISHOP M.D. Performed By: #### P T, CBC, HS TROP, PTT, CK, BNP, BMP, HEPATIC #### [address] Automated blood monocyte cou ntOrdered By: Osvaldo Karin on 03-14-2024 Monocytes (Bld) [#/Vol] 0.7 10*3/uL Normal 0.0-0.8 [facility] Comment on above: Performed By: #### P T, CBC, HS TROP, PTT, CK, BNP, BMP, HEPATIC #### [facility] [address] Automated eosinophil %Ordere d By: Osvaldo Karin on 03-14-2024 Eosinophils/100 WBC (Bld) 0.5 % Normal . [facility] Comment on above: Performed By: #### P T, CBC, HS TROP, PTT, CK, BNP, BMP, HEPATIC #### [address] Automated eosinophil countOr dered By: Osvaldo Vizcarra on 03-14-2024 Eosinophils (Bld) [#/Vol] 0.1 10*3/uL Normal 0.0-0.45 [facility] Comment on above: Performed By: #### P T, CBC, HS TROP, PTT, CK, BNP, BMP, HEPATIC #### [address] Automated monocyte %Ordered By: Osvaldoflaquita Vizcarra on 03-14-2024 Monocytes/100 WBC (Bld) 5.8 % Normal . [facility] Comment on above: Performed By: #### P T, CBC, HS TROP, PTT, CK, BNP, BMP, HEPATIC #### [address] Automated neutrophil %Ordere d By: Osvaldo Vizcarra on 03-14-2024 Neutrophils/100 WBC (Bld) 88.9 % Normal . [facility] Comment on above: Performed By: #### P T, CBC, HS TROP, PTT, CK, BNP, BMP, HEPATIC #### [address] Basic Metabolic Panelon 03-03 Creatinine Clr Calc Pharmacy 30.90 Normal [facility] Comment on above: Performed By: #### P T, CBC, HS TROP, PTT, CK, BNP, BMP, HEPATIC #### [address] GFR/1.73 sq M.predicted MDRD (S/P/Bld) [Vol rate/Area] 30.574 mL/min/{1.73_m2} Normal [facility] Comment on above: Performed By: #### P T, CBC, HS TROP, PTT, CK, BNP, BMP, HEPATIC #### [address] Bilirubin Test strip Ql (U)O rdered By: Osvaldo Vizcarra on 03-14-2024 Bilirubin Ql (U) Negative Negative [facility] Bilirubin.direct [Mass/volum e] in Serum or PlasmaOrdered By: Osvaldo Vizcarra on 03-14-2024 Bilirubin.direct [Mass/Vol] 0.20 mg/dL High 0.03-0.18 [facility] Bilirubin.total [Mass/volume ] in Serum or PlasmaOrdered By: Osvaldo Vizcarra on 03-14-2024 Bilirubin [Mass/Vol] 0.9 mg/dL Normal 0.3-1.0 [facility] Comment on above: Performed By: #### P T, CBC, HS TROP, PTT, CK, BNP, BMP, HEPATIC #### [address] angio abdomen pelvison CT angio abdomen pelvis [facility] [place] [address] [place] [address] CT Scan Report Signed Patient: Shawna Hernandes MR#: [id number] : 1945 Acct:[id number] Age/Sex: 79 / M ADM Date: 03/14/24 Loc: ER Room: Type: [facility] ER Attending Dr: Copies to: Osvaldo Vizcarra DO Ordering Provider: Osvaldo Vizcarra DO Date of Service: 03/14/24 CT/CT angio abdomen pelvis: evaluate AAA, aortic dissection CT angio abdomen pelvis 03/14/2024 12:14 PM SIGNS AND SYMPTOMS: Abdominal pain, dry heaving/nausea TECHNIQUE: Multidetector ct axial images of the abdomen and pelvis were obtained with IV contrast. Multiplanar reformats were performed and reviewed to further define anatomy and possible pathology. CT was performed with one or more of the following dose reduction techniques: Automated exposure control, adjustment of the mA and/or kV according to patient size, or use of iterative reconstruction technique. COMPARISON: 09/02/2019 FINDINGS: Lower Chest: There is dependent atelectasis at the lung bases. Atherosclerotic changes are noted in the coronary arteries. Pacer and epicardial leads are partly visualized. ABDOMEN: Liver: Within normal limits. Bile Ducts: Normal caliber. Gallbladder: No calcified gallstones. Normal caliber wall. Pancreas: Within normal limits. Spleen: Within normal limits. Adrenals: Within normal limits. Kidneys: Simple cysts are noted in the right renal cortex requiring no further follow-up. Pelvis: Reproductive Organs: No pelvic masses. Ureters: Within normal limits. Bladder: Within normal limits. Bowel: There are uncomplicated colonic diverticula. There is no evidence of bowel obstruction. There is a normal appendix in the right lower quadrant. Mesenteric Lymph Nodes: No enlarged mesenteric lymph nodes. Peritoneum: No ascites or free air, no fluid collection. Vessels: Atherosclerotic changes are noted in the abdominal aorta and its branches. There is no evidence of aneurysm dilatation, dissection, or occlusion. Retroperitoneum: Within normal limits. Abdominal Wall: Within normal limits. Bones: Degenerative changes are noted in the thoracolumbar spine, hips, and sacroiliac joints. CT/CT angio abdomen pelvis IMPRESSION: No bowel obstruction or obstructive uropathy. There is no evidence of aneurysm dilatation, dissection, or occlusion. No acute intra-abdominal pathology. Uncomplicated colonic diverticula are noted. Impression dictated by: Bear Vickers M.D.03/14/2024 1:44 PM Dictation Location: [place] [address] Transcribed By: LIANG 03/14/24 1344 Dictated By: Bear Vickers II, MD 03/14/24 1333 Signed By: 03/14/24 1344 Normal [facility] Calcium [Mass/volume] in Ser um or PlasmaOrdered By: Osvaldo Vizcarra on 03-14-2024 Calcium [Mass/Vol] 8.7 mg/dL Normal 8.6-10.3 [facility] Comment on above: Performed By: #### P T, CBC, HS TROP, PTT, CK, BNP, BMP, HEPATIC #### [address] Carbon dioxide, total [Moles /volume] in Serum or PlasmaOrdered By: Osvaldo Vizcarra on 03-14-2024 CO2 [Moles/Vol] 27.2 mmol/L Normal 21.0-31.0 [facility] Comment on above: Performed By: #### P T, CBC, HS TROP, PTT, CK, BNP, BMP, HEPATIC #### [address] Chloride [Moles/volume] in S raiza or PlasmaOrdered By: Osvaldo Vizcarra on 03-14-2024 Chloride [Moles/Vol] 101 mmol/L Normal 98-107 [facility] Comment on above: Performed By: #### P T, CBC, HS TROP, PTT, CK, BNP, BMP, HEPATIC #### [address] Color of Urine by AutoOrdere d By: Osvaldo Vizcarra on 03-14-2024 Color (U) Yellow Normal Yellow [facility] Comment on above: Order Comment: Name Collection Type:: Clean-Voided Midstream Performed By: #### P T, CBC, HS TROP, PTT, CK, BNP, BMP, HEPATIC #### [address] Complete Blood Count Auto Di ffon 03-14-2024 Mean Corpuscular HGB Conc 33.9 g/dL Normal 32.5-35.6 [facility] Comment on above: Performed By: #### P T, CBC, HS TROP, PTT, CK, BNP, BMP, HEPATIC #### [address] Monocytes/100 WBC (Bld) 16.99 % Normal 0.00-20.00 [facility] Comment on above: Performed By: #### P T, CBC, HS TROP, PTT, CK, BNP, BMP, HEPATIC #### [facility] [address] NRBC% 0.0 /100{WBC} Normal 0-0.5 [facility] Comment on above: Performed By: #### P T, CBC, HS TROP, PTT, CK, BNP, BMP, HEPATIC #### [facility] [address] Creatinine [Mass/volume] in Serum or PlasmaOrdered By: Osvaldo Vizcarra on 03-14-2024 Creatinine [Mass/Vol] 2.16 mg/dL High 0.70-1.30 [facility] Comment on above: Performed By: #### P T, CBC, HS TROP, PTT, CK, BNP, BMP, HEPATIC #### [facility] [address] ECG 12 lead ECGon 03-14-2024 ECG 12 lead ECG [facility] [place] [address] [place] [address] Electrocardiograph Report Signed Patient: Shawna Hernandes MR#: [id number] : 1945 Acct:[id number] Age/Sex: 79 / M ADM Date: 03/14/24 Loc: Room: [address] [place] [address] Type: ADM INOo Attending Dr: Shakir Tsai DO Ordering Provider: Osvaldo Vizcarra DO Date of Service: 03/14/2407/26/1133 ECG/ECG 12 lead ECG: Abdominal Pain Copies to: Test Reason : Blood Pressure : 83/55 mmHG Vent. Rate : 60 BPM Atrial Rate : 65 BPM P-R Int : * ms QRS Dur : 130 ms QT Int : 456 ms P-R-T Axes : * -15 111 degrees QTcB Int : 456 ms Ventricular-paced rhythm Confirmed by Osvaldo Vizcarra DO ([id number]) on 03/14/2024 6:50:59 PM Referred By: Electronically Signed By: Osvaldo Vizcarra DO Transcribed By: MUS Signed By Osvaldo Vizcarra DO 185 Normal [facility] Erythrocyte distribution wid th [Ratio] by Automated countOrdered By: Osvaldo Vizcarra on 03-14-2024 Erythrocyte distribution width (RBC) [Ratio] 13.9 % Normal 12.0-14.8 [facility] Comment on above: Performed By: #### P T, CBC, HS TROP, PTT, CK, BNP, BMP, HEPATIC #### [facility] [address] Erythrocytes [#/volume] in B lood by Automated countOrdered By: Osvaldo Vizcarra on 03-14-2024 RBC (Bld) [#/Vol] 3.82 10*6/uL Low 3.90-5.60 [facility] Comment on above: Performed By: #### P T, CBC, HS TROP, PTT, CK, BNP, BMP, HEPATIC #### [facility] [address] Glucose [Mass/volume] in Ser um or PlasmaOrdered By: Osvaldo Vizcarra on 03-14-2024 Glucose [Mass/Vol] 152 mg/dL High 70-100 [facility] Comment on above: ADA recommended refe rence rangeRandom Glucose Reference Range is dependent on time and content of last meal. Glucose of more than 200 mg/dL in a nonstressed, ambulatory subject supports the diagnosis of Diabetes Mellitus. Result Comment: [place] om Glucose Reference Range is dependent on time and content of last meal. Glucose of more than 200 mg/dL in a nonstressed, ambulatory subject supports the diagnosis of Diabetes Mellitus. ADA recommended reference range Performed By: #### P T, CBC, HS TROP, PTT, CK, BNP, BMP, HEPATIC #### [facility] [address] [place] [id number] [facility] Glucose [Mass/volume] in Uri ne by Test stripOrdered By: Osvaldo Vizcarra on 03-14-2024 Glucose Test strip (U) [Mass/Vol] >=1000 mg/dL High Normal [facility] Hematocrit [Volume Fraction] of Blood by Automated countOrdered By: Osvaldo Vizcarra on 03-14-2024 Hematocrit (Bld) [Volume fraction] 38.1 % Low 38.8-50.0 [facility] Comment on above: Performed By: #### P T, CBC, HS TROP, PTT, CK, BNP, BMP, HEPATIC #### [facility] [address] Hemoglobin Test strip Ql (U) Ordered By: Osvaldo Vizcarra on 03-14-2024 Hemoglobin Ql (U) Negative Negative [facility] Hemoglobin [Mass/volume] in BloodOrdered By: Osvaldo Vizcarra on 03-14-2024 Hemoglobin (Bld) [Mass/Vol] 12.9 g/dL Low 13.0-17.0 [facility] Comment on above: Performed By: #### P T, CBC, HS TROP, PTT, CK, BNP, BMP, HEPATIC #### [address] Hepatic Panelon 03-14-2024 Albumin [Mass/Vol] 3.9 g/dL Normal 3.5-5.7 [facility] Comment on above: Performed By: #### P T, CBC, HS TROP, PTT, CK, BNP, BMP, HEPATIC #### [address] Bilirubin,Indirect 0.7 mg/dL Normal [facility] Comment on above: Performed By: #### P T, CBC, HS TROP, PTT, CK, BNP, BMP, HEPATIC #### [address] Bilirubin.indirect [Mass/Vol] 0.20 mg/dL High 0.03-0.18 [facility] Comment on above: Performed By: #### P T, CBC, HS TROP, PTT, CK, BNP, BMP, HEPATIC #### [address] Ketones [Presence] in Urine by Test stripOrdered By: Osvaldo Vizcarra on 03-14-2024 Ketones Ql (U) Negative Normal Negative [facility] Comment on above: Order Comment: Name Collection Type:: Clean-Voided Midstream Performed By: #### P T, CBC, HS TROP, PTT, CK, BNP, BMP, HEPATIC #### [address] Lactate [Moles/volume] in Se rum or PlasmaOrdered By: Osvaldo Vizcarra on 03-14-2024 Lactate [Moles/Vol] 1.3 mmol/L Normal 0.5-2.2 [facility] Comment on above: Result Comment: PERF ORMED BY: [address] [place] [address] PATHOLOGIST GROUND INTELLIGENCE OFFICER PAM BISHOP M.D. Performed By: #### P T, CBC, HS TROP, PTT, CK, BNP, BMP, HEPATIC #### [address] Leukocyte esterase [Presence ] in Urine by Test stripOrdered By: Osvaldo Vizcarra on 03-14-2024 Leukocyte esterase Test strip Ql (U) Negative Normal Negative [facility] Comment on above: Order Comment: Name Collection Type:: Clean-Voided Midstream Performed By: #### P T, CBC, HS TROP, PTT, CK, BNP, BMP, HEPATIC #### [address] Leukocytes [#/volume] correc drake for nucleated erythrocytes in Blood by Automated counOrdered By: Osvaldo Vizcarra on 03-14-2024 WBC corrected for nucl RBC Auto (Bld) [#/Vol] 12.0 10*3/uL High 4.1-10.5 [facility] Leukocytes [#/volume] in Blo od by Automated countOrdered By: Osvaldo Vizcarra on 03-14-2024 WBC (Bld) [#/Vol] 12.0 10*3/uL High 4.1-10.5 [facility] Comment on above: Performed By: #### P T, CBC, HS TROP, PTT, CK, BNP, BMP, HEPATIC #### [facility] [address] [place] [address] [place] Lipase [Enzymatic activity/v olume] in Serum or PlasmaOrdered By: Osvaldo Vizcarra on 03-14-2024 Lipase [Catalytic activity/Vol] 15.0 U/L Normal 11.0-82.0 [facility] Comment on above: Result Comment: PERF ORMED BY: [place] [address] PATHOLOGIST [employer]LL[employer] OFFICER PAM BISHOP M.D. Performed By: #### P T, CBC, HS TROP, PTT, CK, BNP, BMP, HEPATIC #### [address] Lymphocytes [#/volume] in Bl ood by Automated countOrdered By: Osvaldo Vizcarra on 03-14-2024 Lymphocytes (Bld) [#/Vol] 0.6 10*3/uL Low 1.00-4.8 [facility] Comment on above: Performed By: #### P T, CBC, HS TROP, PTT, CK, BNP, BMP, HEPATIC #### [facility] [address] [place] [address] Lymphocytes/100 leukocytes i n Blood by Automated countOrdered By: Osvaldo Vizcarra on 03-14-2024 Lymphocytes/100 WBC (Bld) 4.6 % Normal . [facility] Comment on above: Performed By: #### P T, CBC, HS TROP, PTT, CK, BNP, BMP, HEPATIC #### [facility] [address] [place] [address] MCH [Entitic mass] by Automa drake countOrdered By: Osvaldo Vizcarra on 03-14-2024 MCH (RBC) [Entitic mass] 33.7 pg Normal 27.5-35.2 [facility] Comment on above: Performed By: #### P T, CBC, HS TROP, PTT, CK, BNP, BMP, HEPATIC #### [facility] [address] [place] [address] MCHC Auto (RBC) [Mass/Vol]Or dered By: Osvaldo Vizcarra on 03-14-2024 MCHC (RBC) [Mass/Vol] 33.9 g/dL 32.5-35.6 [facility] MCV [Entitic volume] by Auto mated countOrdered By: Osvaldo Vizcarra on 03-14-2024 MCV (RBC) [Entitic vol] 99.7 fL Normal 83.5-101 [facility] Comment on above: Performed By: #### P T, CBC, HS TROP, PTT, CK, BNP, BMP, HEPATIC #### [facility] [address] [place] [address] [place] Monocyte distribution width [Entitic volume] in Blood by AutomatedOrdered By: Osvaldo Vizcarra on 03-14-2024 Monocyte distribution width Auto (Bld) [Entitic vol] 16.99 % 0.00-20.00 [facility] Neutrophils [#/volume] in Bl ood by Automated countOrdered By: Osvaldo Vizcarra on 03-14-2024 Neutrophils (Bld) [#/Vol] 10.6 10*3/uL High 1.8-7.7 [facility] Comment on above: Performed By: #### P T, CBC, HS TROP, PTT, CK, BNP, BMP, HEPATIC #### [facility] [address] Nitrite Test strip Ql (U)Ord ered By: Osvaldo Vizcarra on 03-14-2024 Nitrite Ql (U) Negative Negative [facility] No Panel InformationOrdered By: Osvaldo Vizcarra on 03-14-2024 Estimated GFR (CKD-EPI) 30.574 mL/Min [facility] Creatinine Clearance (Chem 30.90 [facility] Nucleated erythrocytes [Pres ence] in Blood by Automated countOrdered By: Osvaldo Vizcarra on 03-14-2024 Nucleated RBC Auto Ql (Bld) 0.0 /100{WBC} 0-0.5 [facility] Platelet mean volume [Entiti c volume] in Blood by Automated countOrdered By: Osvaldo Vizcarra on 03-14-2024 Platelet mean volume (Bld) [Entitic vol] 10.0 fL Normal 6.6-10.1 [facility] Comment on above: Performed By: #### P T, CBC, HS TROP, PTT, CK, BNP, BMP, HEPATIC #### [facility] [address] [place] [address] [place] Platelets [#/volume] in Bloo d by Automated countOrdered By: Osvaldo Vizcarra on 03-14-2024 Platelets (Bld) [#/Vol] 179 10*3/uL Normal 150-450 [facility] Comment on above: Performed By: #### P T, CBC, HS TROP, PTT, CK, BNP, BMP, HEPATIC #### [facility] [address] Potassium [Moles/volume] in Serum or PlasmaOrdered By: Osvaldo Vizcarra on 03-14-2024 Potassium [Moles/Vol] 4.7 mmol/L Normal 3.5-5.1 [facility] Comment on above: Performed By: #### P T, CBC, HS TROP, PTT, CK, BNP, BMP, HEPATIC #### [facility] [address] Protein Test strip (U) [Mass /Vol]Ordered By: Osvaldo Vizcarra on 03-14-2024 Protein (U) [Mass/Vol] Negative Negative [facility] Protein [Mass/volume] in Ser um or PlasmaOrdered By: Osvaldo Vizcarra on 03-14-2024 Protein [Mass/Vol] 6.6 g/dL Normal 6.4-8.9 [facility] Comment on above: Performed By: #### P T, CBC, HS TROP, PTT, CK, BNP, BMP, HEPATIC #### [address] Serum globulin measurement b y calculation (mass/volume)Ordered By: Osvaldo Vizcarra on 03-14-2024 Globulin (S) [Mass/Vol] 2.7 g/dL [facility] Comment on above: Performed By: #### P T, CBC, HS TROP, PTT, CK, BNP, BMP, HEPATIC #### [facility] [address] Serum or plasma albumin/glob ulin mass ratioOrdered By: Osvaldo Vizcarra on 03-14-2024 Albumin/Globulin [Mass ratio] 1.4 {ratio} [facility] Comment on above: Performed By: #### P T, CBC, HS TROP, PTT, CK, BNP, BMP, HEPATIC #### [facility] [address] [place] [address] Serum or plasma anion gap de terminationOrdered By: Osvaldo Vizcarra on 03-14-2024 Anion gap [Moles/Vol] 12.5 mmol/L Normal 6.0-15.0 [facility] Comment on above: Performed By: #### P T, CBC, HS TROP, PTT, CK, BNP, BMP, HEPATIC #### [address] Serum or plasma non-glucuron idated bilirubin measurement (mass/volume)Ordered By: Osvaldo Vizcarra on 03-14-2024 Bilirubin.indirect [Mass/Vol] 0.7 mg/dL [facility] Sodium [Moles/volume] in Ser um or PlasmaOrdered By: Osvaldo Vizcarra on 03-14-2024 Sodium [Moles/Vol] 136 mmol/L Normal 136-145 [facility] Comment on above: Performed By: #### P T, CBC, HS TROP, PTT, CK, BNP, BMP, HEPATIC #### [address] Specific gravity of Urine by RefractometryOrdered By: Osvaldo Vizcarra on 03-14-2024 Specific gravity Refractometry (U) [Rel density] 1.028 1.001-1.03 0 [facility] Comment on above: Rechecked by refract ometer Troponin I High Sensitivityo n 03-14-2024 Troponin I High Sensitivity 8.0 pg/mL Normal 0.0-20.0 [facility] Comment on above: Result Comment: PERF ORMED BY: [address] [place] [address] PATHOLOGIST GR[employer]TELL[employer] OFFICER PAM BISHOP M.D. Performed By: #### P T, CBC, HS TROP, PTT, CK, BNP, BMP, HEPATIC #### [address] Troponin I.cardiac [Mass/vol ume] in Serum or Plasma by Detection limit <= 0.01 ng/Ordered By: Osvaldo Vizcarra on 03-14-2024 Troponin I.cardiac DL <= 0.01 ng/mL [Mass/Vol] 8.0 pg/mL 0.0-20.0 [facility] Urea nitrogen [Mass/volume] in Serum or PlasmaOrdered By: Osvaldo Vizcarra on 03-14-2024 Urea nitrogen [Mass/Vol] 35 mg/dL High 7-25 [facility] Comment on above: Performed By: #### P T, CBC, HS TROP, PTT, CK, BNP, BMP, HEPATIC #### [facility] [address] [place] [address] Urinalysison 03-14-2024 Bilirubin,Urine Negative Normal Negative [facility] Comment on above: Order Comment: Name Collection Type:: Clean-Voided Midstream Performed By: #### P T, CBC, HS TROP, PTT, CK, BNP, BMP, HEPATIC #### [address] Glucose Ql (U) >=1000 High Normal [facility] Comment on above: Order Comment: Name Collection Type:: Clean-Voided Midstream Performed By: #### P T, CBC, HS TROP, PTT, CK, BNP, BMP, HEPATIC #### [place] [address] [place] Nitrite,Urine Negative Normal Negative [facility] Comment on above: Order Comment: Name Collection Type:: Clean-Voided Midstream Performed By: #### P T, CBC, HS TROP, PTT, CK, BNP, BMP, HEPATIC #### [address] Occult Blood,Urine Negative Normal Negative [facility] Comment on above: Order Comment: Name Collection Type:: Clean-Voided Midstream Result Comment: PERF ORMED BY: [place] [address] PATHOLOGIST GR[employer]TELL[employer] OFFICER PAM BISHOP M.D. Performed By: #### P T, CBC, HS TROP, PTT, CK, BNP, BMP, HEPATIC #### [address] Protein,Urine Negative Normal Negative [facility] Comment on above: Order Comment: Name Collection Type:: Clean-Voided Midstream Performed By: #### P T, CBC, HS TROP, PTT, CK, BNP, BMP, HEPATIC #### [address] Specificy [place],Urine 1.028 Normal 1.001-1.03 0 [facility] Comment on above: Order Comment: Name Collection Type:: Clean-Voided Midstream Result Comment: Rech ecked by refractometer Performed By: #### P T, CBC, HS TROP, PTT, CK, BNP, BMP, HEPATIC #### [address] Urobilinogen,Urine Normal Normal Normal [facility] Comment on above: Order Comment: Name Collection Type:: Clean-Voided Midstream Performed By: #### P T, CBC, HS TROP, PTT, CK, BNP, BMP, HEPATIC #### [address] Urine appearanceOrdered By: Osvaldo Vizcarra on 03-14-2024 Appearance (U) Clear Normal Clear [facility] Comment on above: Order Comment: Name Collection Type:: Clean-Voided Midstream Performed By: #### P T, CBC, HS TROP, PTT, CK, BNP, BMP, HEPATIC #### [address] Urobilinogen Test strip (U) [Mass/Vol]Ordered By: Osvaldo Vizcarra on 03-14-2024 Urobilinogen (U) [Mass/Vol] Normal mg/dL Normal [facility] pH of Urine by Test stripOrd ered By: Osvaldo Vizcarra on 03-14-2024 pH (U) 6.0 [pH] Normal 5.0-9.0 [facility] Comment on above: Order Comment: Name Collection Type:: Clean-Voided Midstream Performed By: #### P T, CBC, HS TROP, PTT, CK, BNP, BMP, HEPATIC #### [address] XR lumbar spine AP/LAT/FLX/E XTon 03-03-2024 XR lumbar spine AP/LAT/FLX/EXT [facility] [place] [address] XRay Report Signed Patient: Shawna Hernandes MR#: [id number] : 1945 Acct:[id number] Age/Sex: 79 / M ADM Date: 03/03/24 Loc: XD Room: Type: [facility] Attending Dr: Barbara Oneill APRN Copies to: Barbara Oneill APRN Ordering Provider: Barbara Oneill APRN Date of Service: 03/03/24 XR/XR lumbar spine AP/LAT/FLX/EXT: M54.50 - Low back pain, unspecified ([id number]) XR/XR cerv spine AP/LAT/FLX/EXT: M54.2 - Cervicalgia AP with lateral neutral, flexion extension views of thecervical spine HISTORY: Prior fall. Left arm pain. Low back pain. Neck pain. COMPARISON: CT lumbar spine 10/06/2023 POSTOPERATIVE CHANGES: None BONY ALIGNMENT: Straightening HYPERMOBILITY::No hypermobility LISTHESIS:None FRACTURE: None DISC DEGENERATION: Mild C5-6 disc space narrowing. FACETS: Multilevel facet degeneration FORAMEN: Not assessed DENS: Intact CRANIOCERVICAL JUNCTION: Unremarkable SOFT TISSUES: Unremarkable XR/XR cerv spine AP/LAT/FLX/EXT IMPRESSION: No hypermobility. Multilevel mild to moderate degenerative change. AP with lateral neutral, flexion extension views of the lumbar spine COMPARISON: CT lumbar spine 10/06/2023 Mild scoliosis. Mild multilevel degenerative listhesis L1 anterior wedge compression deformity with chronic. Multilevel cervical spondylosis with mild disc space narrowing and endplate spurring. Extensive lower lumbar hypertrophic facet changes. No hypermobility with flexion extension views. Mild atherosclerosis. IMPRESSION: No hypermobility. Multilevel mild to moderate degenerative changes. Chronic appearing L1 mild anterior wedge compression deformity. Mild scoliosis. Impression dictated by: Rashaun Shin M.D.03/03/2024 2:43 PM Dictation Location: [place] [address] Transcribed By: [facility] 03/03/24 1443 Dictated By: Rashaun Shin DO 03/03/24 1439 Signed By: 03/03/24 1443 Normal [facility] Alanine aminotransferase [En zymatic activity/volume] in Serum or PlasmaOrdered By: Preston Daley on 02-08-2024 ALT [Catalytic activity/Vol] 42 U/L Normal 7-52 [facility] Comment on above: Performed By: #### P T, CBC, HS TROP, PTT, CK, BNP, BMP, HEPATIC #### [address] Albumin [Mass/volume] in Ser um or Plasma by Bromocresol green (BCG) dye binding methoOrdered By: Preston Daley on 02-08-2024 Albumin BCG dye [Mass/Vol] 3.6 g/dL 3.5-5.7 [facility] Alkaline phosphatase [Enzyma tic activity/volume] in Serum or PlasmaOrdered By: Preston Daley on 02-08-2024 ALP [Catalytic activity/Vol] 46 U/L Normal 34-104 [facility] Comment on above: Performed By: #### P T, CBC, HS TROP, PTT, CK, BNP, BMP, HEPATIC #### [address] Aspartate aminotransferase [ Enzymatic activity/volume] in Serum or PlasmaOrdered By: Preston Daley on 02-08-2024 AST [Catalytic activity/Vol] 28 U/L Normal 13-39 [facility] Comment on above: Performed By: #### P T, CBC, HS TROP, PTT, CK, BNP, BMP, HEPATIC #### [address] Automated basophil %Ordered By: Preston Daley on 02-08-2024 Basophils/100 WBC (Bld) 0.5 % Normal . [facility] Comment on above: Performed By: #### P T, CBC, HS TROP, PTT, CK, BNP, BMP, HEPATIC #### [address] Automated basophil countOrde red By: Preston Daley on 02-08-2024 Basophils (Bld) [#/Vol] 0.0 10*3/uL Normal 0.0-0.2 [facility] Comment on above: Result Comment: PERF ORMED BY: [address] [address] PATHOLOGIST GROUND INTELLIGENCE OFFICER PAM BISHOP M.D. Performed By: #### P T, CBC, HS TROP, PTT, CK, BNP, BMP, HEPATIC #### [address] Automated blood monocyte cou ntOrdered By: Preston Daley on 02-08-2024 Monocytes (Bld) [#/Vol] 0.9 10*3/uL High 0.0-0.8 [facility] Comment on above: Performed By: #### P T, CBC, HS TROP, PTT, CK, BNP, BMP, HEPATIC #### [address] Automated eosinophil %Ordere d By: Preston Daley on 02-08-2024 Eosinophils/100 WBC (Bld) 1.0 % Normal . [facility] Comment on above: Performed By: #### P T, CBC, HS TROP, PTT, CK, BNP, BMP, HEPATIC #### [address] Automated eosinophil countOr dered By: Preston Daley on 02-08-2024 Eosinophils (Bld) [#/Vol] 0.1 10*3/uL Normal 0.0-0.45 [facility] Comment on above: Performed By: #### P T, CBC, HS TROP, PTT, CK, BNP, BMP, HEPATIC #### [address] Automated monocyte %Ordered By: Preston Daley on 02-08-2024 Monocytes/100 WBC (Bld) 9.6 % Normal . [facility] Comment on above: Performed By: #### P T, CBC, HS TROP, PTT, CK, BNP, BMP, HEPATIC #### [address] Automated neutrophil %Ordere d By: Preston Daley on 02-08-2024 Neutrophils/100 WBC (Bld) 82.1 % Normal . [facility] Comment on above: Performed By: #### P T, CBC, HS TROP, PTT, CK, BNP, BMP, HEPATIC #### [facility] [address] [place] [id number] [facility] Bilirubin Test strip Ql (U)O rdered By: Preston Daley on 02-08-2024 Bilirubin Ql (U) Negative Negative [facility] Bilirubin.total [Mass/volume ] in Serum or PlasmaOrdered By: Preston Daley on 02-08-2024 Bilirubin [Mass/Vol] 0.7 mg/dL Normal 0.3-1.0 [facility] Comment on above: Performed By: #### P T, CBC, HS TROP, PTT, CK, BNP, BMP, HEPATIC #### [facility] [address] [place], [place] [id number] [facility] CT head/brain wo conon 02-07 CT head/brain wo con [facility] [place] [address] [place] [address] CT Scan Report Signed Patient: Shawna Hernandes MR#: [id number] : 1945 Acct:[id number] Age/Sex: 79 / M ADM Date: 02/08/24 Loc: ER Room: Type: [facility] ER Attending Dr: Copies to: Preston Daley PA-C Ordering Provider: Preston Daley PA-C Date of Service: 02/08/24 CT/CT head/brain wo con: dizzy, fell [address] head/brain wo con 02/08/2024 1:55 PM SIGNS AND SYMPTOMS: Dizziness, hypotension, falls TECHNIQUE:Multi-detector CT axial slices of the brain were obtained without IV contrast. CT was performed with one or more of the following dose reduction techniques: Automated exposure control, adjustment of the mA and/or kV according to patient size, or use of iterative reconstruction technique. COMPARISON: 07/21/2023 FINDINGS: There is no shift of the midline structures, acute intracranial bleeding, mass effects, or evidence of acute ischemia. There is gliosis and encephalomalacia in the left frontal lobe consistent with a remote infarct. There is mild age-related cortical atrophy with periventricular white matter hypoattenuation. Atherosclerotic changes are noted in the intracranial segments of the internal carotid arteries. The ventricular system is normal in size. The brainstem and the cerebellum are unremarkable. The visualized intraorbital contents, the visualized paranasal sinuses, and the infratemporal soft tissues show no acute abnormality. The osseous structures in the skull base and the calvarium show no abnormality. CT/CT head/brain wo con IMPRESSION: No acute intracranial pathology. 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 Impression dictated by: Bear Vickers M.D.02/08/2024 2:46 PM Dictation Location: [place] [address] Transcribed By: LIANG 02/08/24 1446 Dictated By: Bear Vickers II, MD 02/08/24 144 Signed By: 02/08/24 1446 Normal [facility] Calcium [Mass/volume] in Ser um or PlasmaOrdered By: Preston Daley on 02-08-2024 Calcium [Mass/Vol] 8.3 mg/dL Low 8.6-10.3 [facility] Comment on above: Performed By: #### P T, CBC, HS TROP, PTT, CK, BNP, BMP, HEPATIC #### [facility] [address] [place] [address] [place] Carbon dioxide, total [Moles /volume] in Serum or PlasmaOrdered By: Preston Daley on 02-08-2024 CO2 [Moles/Vol] 26.0 mmol/L Normal 21.0-31.0 [facility] Comment on above: Performed By: #### P T, CBC, HS TROP, PTT, CK, BNP, BMP, HEPATIC #### [facility] [address] [place] [address] [place] Chloride [Moles/volume] in S raiza or PlasmaOrdered By: Preston Daley on 02-08-2024 Chloride [Moles/Vol] 104 mmol/L Normal 98-107 [facility] Comment on above: Performed By: #### P T, CBC, HS TROP, PTT, CK, BNP, BMP, HEPATIC #### [facility] [address] [place] [address] [place] Color of Urine by AutoOrdere d By: Preston Daley on 02-08-2024 Color (U) Yellow Normal Yellow [facility] Comment on above: Order Comment: Name Collection Type:: Clean-Voided Midstream Performed By: #### P T, CBC, HS TROP, PTT, CK, BNP, BMP, HEPATIC #### [address] Complete Blood Count Auto Di ffon 02-08-2024 Mean Corpuscular HGB Conc 33.4 g/dL Normal 32.5-35.6 [facility] Comment on above: Performed By: #### P T, CBC, HS TROP, PTT, CK, BNP, BMP, HEPATIC #### [address] Monocytes/100 WBC (Bld) 15.62 % Normal 0.00-20.00 [facility] Comment on above: Performed By: #### P T, CBC, HS TROP, PTT, CK, BNP, BMP, HEPATIC #### [address] NRBC% 0.1 /100{WBC} Normal 0-0.5 [facility] Comment on above: Performed By: #### P T, CBC, HS TROP, PTT, CK, BNP, BMP, HEPATIC #### [address] Comprehensive Metabolic Pane evert 02-08-2024 Albumin [Mass/Vol] 3.6 g/dL Normal 3.5-5.7 [facility] Comment on above: Performed By: #### P T, CBC, HS TROP, PTT, CK, BNP, BMP, HEPATIC #### [address] Creatinine Clr Calc Pharmacy 32.12 Normal [facility] Comment on above: Performed By: #### P T, CBC, HS TROP, PTT, CK, BNP, BMP, HEPATIC #### [address] GFR/1.73 sq M.predicted MDRD (S/P/Bld) [Vol rate/Area] 32.939 mL/min/{1.73_m2} Normal [facility] Comment on above: Performed By: #### P T, CBC, HS TROP, PTT, CK, BNP, BMP, HEPATIC #### [facility] [address] Creatine kinase [Enzymatic a ctivity/volume] in Serum or PlasmaOrdered By: Preston Daley on 02-08-2024 CK [Catalytic activity/Vol] 72 U/L Normal 30-223 [facility] Comment on above: Performed By: #### P T, CBC, HS TROP, PTT, CK, BNP, BMP, HEPATIC #### [facility] [address] Creatinine [Mass/volume] in Serum or PlasmaOrdered By: Preston Daley on 02-08-2024 Creatinine [Mass/Vol] 2.03 mg/dL High 0.70-1.30 [facility] Comment on above: Performed By: #### P T, CBC, HS TROP, PTT, CK, BNP, BMP, HEPATIC #### [facility] [address] [place] [address] ECG 12 lead ECGon 02-08-2024 ECG 12 lead ECG [facility] [place] [address] [place] [address] Electrocardiograph Report Signed Patient: Shawna Hernandes MR#: [id number] : 1945 Acct:[id number] Age/Sex: 79 / M ADM Date: 02/08/24 Loc: ER Room: Type: [facility] ER Attending Dr: Ordering Provider: Preston Daley PA-C Date of Service: 02/08/2403/26/1334 ECG/ECG 12 lead ECG: Dizziness Copies to: Test Reason : Blood Pressure : 116/059 mmHG Vent. Rate : 060 BPM Atrial Rate : 060 BPM P-R Int : 224 ms QRS Dur : 126 ms QT Int : 434 ms P-R-T Axes : 000 -04 115 degrees QTc Int : 434 ms AV dual-paced rhythm with prolonged AV conduction Confirmed by Eliseo IRWIN DO ([id number]) on 02/08/2024 3:19:34 PM Referred By: Electronically Signed By:Eliseo IRWIN DO Transcribed By: MUS Signed By Eliseo Irwin DO 0 02/08/24 1519 Normal [facility] Erythrocyte distribution wid th [Ratio] by Automated countOrdered By: Preston Daley on 02-08-2024 Erythrocyte distribution width (RBC) [Ratio] 13.6 % Normal 12.0-14.8 [facility] Comment on above: Performed By: #### P T, CBC, HS TROP, PTT, CK, BNP, BMP, HEPATIC #### [facility] [address] [place] [id number] [facility] Erythrocytes [#/volume] in B lood by Automated countOrdered By: Preston Daley on 02-08-2024 RBC (Bld) [#/Vol] 3.61 10*6/uL Low 3.90-5.60 [facility] Comment on above: Performed By: #### P T, CBC, HS TROP, PTT, CK, BNP, BMP, HEPATIC #### [facility] [address] [place] [address] [place] Glucose [Mass/volume] in Ser um or PlasmaOrdered By: Preston Daley on 02-08-2024 Glucose [Mass/Vol] 126 mg/dL High 70-100 [facility] Comment on above: ADA recommended refe rence rangeRandom Glucose Reference Range is dependent on time and content of last meal. Glucose of more than 200 mg/dL in a nonstressed, ambulatory subject supports the diagnosis of Diabetes Mellitus. Result Comment: [place] om Glucose Reference Range is dependent on time and content of last meal. Glucose of more than 200 mg/dL in a nonstressed, ambulatory subject supports the diagnosis of Diabetes Mellitus. ADA recommended reference range Performed By: #### P T, CBC, HS TROP, PTT, CK, BNP, BMP, HEPATIC #### [facility] [address] [place] [address] [place] Glucose [Mass/volume] in Uri ne by Test stripOrdered By: Preston Daley on 02-08-2024 Glucose Test strip (U) [Mass/Vol] >=1000 mg/dL High Normal [facility] Hematocrit [Volume Fraction] of Blood by Automated countOrdered By: Preston Daley on 02-08-2024 Hematocrit (Bld) [Volume fraction] 36.4 % Low 38.8-50.0 [facility] [facility] Comment on above: Performed By: #### P T, CBC, HS TROP, PTT, CK, BNP, BMP, HEPATIC #### [facility] [id number] [facility] Hemoglobin Test strip Ql (U) Ordered By: Preston Daley on 02-08-2024 Hemoglobin Ql (U) Negative Negative [facility] Hemoglobin [Mass/volume] in BloodOrdered By: Preston Daley on 02-08-2024 Hemoglobin (Bld) [Mass/Vol] 12.2 g/dL Low 13.0-17.0 [facility] Comment on above: Performed By: #### P T, CBC, HS TROP, PTT, CK, BNP, BMP, HEPATIC #### [facility] [address] [place] [address] Ketones [Presence] in Urine by Test stripOrdered By: Preston Daley on 02-08-2024 Ketones Ql (U) Negative Normal Negative [facility] Comment on above: Order Comment: Name Collection Type:: Clean-Voided Midstream Performed By: #### P T, CBC, HS TROP, PTT, CK, BNP, BMP, HEPATIC #### [facility] [address] Leukocyte esterase [Presence ] in Urine by Test stripOrdered By: Preston Daley on 02-08-2024 Leukocyte esterase Test strip Ql (U) Negative Normal Negative [facility] Comment on above: Order Comment: Name Collection Type:: Clean-Voided Midstream Performed By: #### P T, CBC, HS TROP, PTT, CK, BNP, BMP, HEPATIC #### [facility] [address] [place] [address] [place] Leukocytes [#/volume] correc drake for nucleated erythrocytes in Blood by Automated counOrdered By: Preston Daley on 02-08-2024 WBC corrected for nucl RBC Auto (Bld) [#/Vol] 9.6 10*3/uL 4.1-10.5 [facility] Leukocytes [#/volume] in Blo od by Automated countOrdered By: Preston Daley on 02-08-2024 WBC (Bld) [#/Vol] 9.6 10*3/uL Normal 4.1-10.5 [facility] Comment on above: Performed By: #### P T, CBC, HS TROP, PTT, CK, BNP, BMP, HEPATIC #### [address] Lymphocytes [#/volume] in Bl ood by Automated countOrdered By: Preston Daley on 02-08-2024 Lymphocytes (Bld) [#/Vol] 0.6 10*3/uL Low 1.00-4.8 [facility] Comment on above: Performed By: #### P T, CBC, HS TROP, PTT, CK, BNP, BMP, HEPATIC #### [facility] [address] [place] [address] Lymphocytes/100 leukocytes i n Blood by Automated countOrdered By: Preston Daley on 02-08-2024 Lymphocytes/100 WBC (Bld) 6.8 % Normal . [facility] Comment on above: Performed By: #### P T, CBC, HS TROP, PTT, CK, BNP, BMP, HEPATIC #### [facility] [address] [place] [address] MCH [Entitic mass] by Automa drake countOrdered By: Preston Daley on 02-08-2024 MCH (RBC) [Entitic mass] 33.7 pg Normal 27.5-35.2 [facility] Comment on above: Performed By: #### P T, CBC, HS TROP, PTT, CK, BNP, BMP, HEPATIC #### [facility] [address] [place] [address] MCHC Auto (RBC) [Mass/Vol]Or dered By: Preston Daley on 02-08-2024 MCHC (RBC) [Mass/Vol] 33.4 g/dL 32.5-35.6 [facility] MCV [Entitic volume] by Auto mated countOrdered By: Preston Daley on 02-08-2024 MCV (RBC) [Entitic vol] 101.0 fL Normal 83.5-101 [facility] Comment on above: Performed By: #### P T, CBC, HS TROP, PTT, CK, BNP, BMP, HEPATIC #### [facility] [address] Magnesium [Mass/volume] in S raiza or PlasmaOrdered By: Preston Daley on 02-08-2024 Magnesium [Mass/Vol] 2.5 mg/dL Normal 1.9-2.7 [facility] Comment on above: Result Comment: PERF ORMED BY: [address] [place] [address] PATHOLOGIST GROUND INTELLIGENCE OFFICER PAM BISHOP M.D. Performed By: #### P T, CBC, HS TROP, PTT, CK, BNP, BMP, HEPATIC #### [facility] [address] [place] [address] [place] Monocyte distribution width [Entitic volume] in Blood by AutomatedOrdered By: Preston Daley on 02-08-2024 Monocyte distribution width Auto (Bld) [Entitic vol] 15.62 % 0.00-20.00 [facility] Neutrophils [#/volume] in Bl ood by Automated countOrdered By: Preston Daley on 02-08-2024 Neutrophils (Bld) [#/Vol] 7.8 10*3/uL High 1.8-7.7 [facility] Comment on above: Performed By: #### P T, CBC, HS TROP, PTT, CK, BNP, BMP, HEPATIC #### [facility] [address] Nitrite Test strip Ql (U)Ord ered By: Preston Daley on 02-08-2024 Nitrite Ql (U) Negative Negative [facility] No Panel InformationOrdered By: Preston Daley on 02-08-2024 Estimated GFR (CKD-EPI) 32.939 mL/Min [facility] Creatinine Clearance (Chem 32.12 [facility] Nucleated erythrocytes [Pres ence] in Blood by Automated countOrdered By: Preston Daley on 02-08-2024 Nucleated RBC Auto Ql (Bld) 0.1 /100{WBC} 0-0.5 [facility] Platelet mean volume [Entiti c volume] in Blood by Automated countOrdered By: Preston Daley on 02-08-2024 Platelet mean volume (Bld) [Entitic vol] 9.2 fL Normal 6.6-10.1 [facility] Comment on above: Performed By: #### P T, CBC, HS TROP, PTT, CK, BNP, BMP, HEPATIC #### [facility] [address] Platelets [#/volume] in Bloo d by Automated countOrdered By: Preston Daley on 02-08-2024 Platelets (Bld) [#/Vol] 188 10*3/uL Normal 150-450 [facility] Comment on above: Performed By: #### P T, CBC, HS TROP, PTT, CK, BNP, BMP, HEPATIC #### [facility] [address] Potassium [Moles/volume] in Serum or PlasmaOrdered By: Preston Daley on 02-08-2024 Potassium [Moles/Vol] 4.2 mmol/L Normal 3.5-5.1 [facility] Comment on above: Performed By: #### P T, CBC, HS TROP, PTT, CK, BNP, BMP, HEPATIC #### [facility] [address] Protein Test strip (U) [Mass /Vol]Ordered By: Preston Daley on 02-08-2024 Protein (U) [Mass/Vol] Negative Negative [facility] Protein [Mass/volume] in Ser um or PlasmaOrdered By: Preston Daley on 02-08-2024 Protein [Mass/Vol] 5.9 g/dL Low 6.4-8.9 [facility] Comment on above: Performed By: #### P T, CBC, HS TROP, PTT, CK, BNP, BMP, HEPATIC #### [facility] [address] Serum globulin measurement b y calculation (mass/volume)Ordered By: Preston Daley on 02-08-2024 Globulin (S) [Mass/Vol] 2.3 g/dL Normal [facility] Comment on above: Performed By: #### P T, CBC, HS TROP, PTT, CK, BNP, BMP, HEPATIC #### [facility] [address] Serum or plasma albumin/glob ulin mass ratioOrdered By: Preston Daley on 02-08-2024 Albumin/Globulin [Mass ratio] 1.6 {ratio} Normal [facility] Comment on above: Performed By: #### P T, CBC, HS TROP, PTT, CK, BNP, BMP, HEPATIC #### [facility] [address] Serum or plasma anion gap de terminationOrdered By: Preston Daley on 02-08-2024 Anion gap [Moles/Vol] 9.2 mmol/L Normal 6.0-15.0 [facility] Comment on above: Performed By: #### P T, CBC, HS TROP, PTT, CK, BNP, BMP, HEPATIC #### [address] Sodium [Moles/volume] in Ser um or PlasmaOrdered By: Preston Daley on 02-08-2024 Sodium [Moles/Vol] 135 mmol/L Low 136-145 [facility] Comment on above: Performed By: #### P T, CBC, HS TROP, PTT, CK, BNP, BMP, HEPATIC #### [facility] [address] [place] [address] Specific gravity Test strip (U) [Rel density]Ordered By: Preston Daley on 02-08-2024 Specific gravity (U) [Rel density] 1.010 1.001-1.03 0 [facility] Troponin I High Sensitivityo n 02-08-2024 Troponin I High Sensitivity 8.5 pg/mL Normal 0.0-20.0 [facility] Comment on above: Result Comment: PERF ORMED BY: [place] [address] PATHOLOGIST GR[employer] INTELLIGENCE OFFICER PAM BISHOP M.D. Performed By: #### P T, CBC, HS TROP, PTT, CK, BNP, BMP, HEPATIC #### [facility] [address] [place] [address] Troponin I.cardiac [Mass/vol ume] in Serum or Plasma by Detection limit <= 0.01 ng/Ordered By: Preston Daley on 02-08-2024 Troponin I.cardiac DL <= 0.01 ng/mL [Mass/Vol] 8.5 pg/mL 0.0-20.0 [facility] Urea nitrogen [Mass/volume] in Serum or PlasmaOrdered By: Preston Daley on 02-08-2024 Urea nitrogen [Mass/Vol] 30 mg/dL High 7-25 [facility] Comment on above: Performed By: #### P T, CBC, HS TROP, PTT, CK, BNP, BMP, HEPATIC #### [address] Urinalysison 02-08-2024 Bilirubin,Urine Negative Normal Negative [facility] Comment on above: Order Comment: Name Collection Type:: Clean-Voided Midstream Performed By: #### P T, CBC, HS TROP, PTT, CK, BNP, BMP, HEPATIC #### [address] Glucose Ql (U) >=1000 High Normal [facility] Comment on above: Order Comment: Name Collection Type:: Clean-Voided Midstream Performed By: #### P T, CBC, HS TROP, PTT, CK, BNP, BMP, HEPATIC #### [address] Nitrite,Urine Negative Normal Negative [facility] Comment on above: Order Comment: Name Collection Type:: Clean-Voided Midstream Performed By: #### P T, CBC, HS TROP, PTT, CK, BNP, BMP, HEPATIC #### [address] Occult Blood,Urine Negative Normal Negative [facility] Comment on above: Order Comment: Name Collection Type:: Clean-Voided Midstream Result Comment: PERF ORMED BY: [place] [address] PATHOLOGIST GR[employer] INTELLIGENCE OFFICER PAM BISHOP M.D. Performed By: #### P T, CBC, HS TROP, PTT, CK, BNP, BMP, HEPATIC #### [address] Protein,Urine Negative Normal Negative [facility] Comment on above: Order Comment: Name Collection Type:: Clean-Voided Midstream Performed By: #### P T, CBC, HS TROP, PTT, CK, BNP, BMP, HEPATIC #### [facility] [address] Specificy [place],Urine 1.010 Normal 1.001-1.03 0 [facility] Comment on above: Order Comment: Name Collection Type:: Clean-Voided Midstream Performed By: #### P T, CBC, HS TROP, PTT, CK, BNP, BMP, HEPATIC #### [facility] [address] Urobilinogen,Urine Normal Normal Normal [facility] Comment on above: Order Comment: Name Collection Type:: Clean-Voided Midstream Performed By: #### P T, CBC, HS TROP, PTT, CK, BNP, BMP, HEPATIC #### [facility] [address] [place] [address] Urine appearanceOrdered By: Preston Daley on 02-08-2024 Appearance (U) Clear Normal Clear [facility] Comment on above: Order Comment: Name Collection Type:: Clean-Voided Midstream Performed By: #### P T, CBC, HS TROP, PTT, CK, BNP, BMP, HEPATIC #### [place] [id number] [facility] Urobilinogen Test strip (U) [Mass/Vol]Ordered By: Preston Daley on 02-08-2024 Urobilinogen (U) [Mass/Vol] Normal mg/dL Normal [facility] XR chest 2V*on 02-08-2024 XR chest 2V* [facility] [place] [address] XRay Report Signed Patient: Shawna Hernandes MR#: [id number] : 1945 Acct:[id number] Age/Sex: 79 / M ADM Date: 02/08/24 Loc: ER Room: Type: [facility] ER Attending Dr: Copies to: Preston Daley PA-C Ordering Provider: Preston Daley PA-C Date of Service: 02/08/24 XR/XR chest 2V*: Dizziness XR chest 2V* 02/08/2024 1:35 PM SIGNS AND SYMPTOMS: Dizziness, hypotension PROTOCOL: Frontal and lateral radiographs of the chest COMPARISON: 12/11/2023 FINDINGS: The trachea is midline. Pacer leads are present with a pacer generator in the right anterior chest wall. The heart and mediastinal structures are within normal limits. The lung parenchyma is clear. The bony thorax is intact. Degenerative changes are noted in the thoracic spine. XR/XR chest 2V* IMPRESSION: No acute cardiopulmonary pathology. Impression dictated by: Bear Vickers M.D.02/08/2024 2:16 PM Dictation Location: [place] [address] Transcribed By: LIANG 02/08/24 1416 Dictated By: Bear Vickers II, MD 02/08/24 1415 Signed By: 02/08/24 1416 Normal [facility] pH of Urine by Test stripOrd ered By: Preston Daley on 02-08-2024 pH (U) 5.5 [pH] Normal 5.0-9.0 [facility] Comment on above: Order Comment: Name Collection Type:: Clean-Voided Midstream Performed By: #### P T, CBC, HS TROP, PTT, CK, BNP, BMP, HEPATIC #### [facility] [address] [place] [address] COMPREHENSIVE METABOLIC PANE [facility] 01-18-2024 Albumin [Mass/Vol] 3.8 g/dL Normal 3.2-5.3 [facility] Comment on above: Performed By: #### C , 64372-2, , THYR #### [facility] ([id number]) [address], [address] [place] [address] ALP [Catalytic activity/Vol] 59 U/L Normal 39-130 [facility] Comment on above: Performed By: #### C ELIZABETH, 60256-3, 69838-9, THYR #### [facility] ([id number]) [address], [address] [place] [address] ALT [Catalytic activity/Vol] 43 U/L High 0-40 [facility] Comment on above: Performed By: #### C ELIZABETH, 72638-8, , THYR #### [facility] ([id number]) [address], [address] [place] [address] Anion gap [Moles/Vol] 8 mmol/L Normal 5-15 [facility] Comment on above: Performed By: #### C ELIZABETH, 68214-0, , THYR #### [facility] ([id number]) [address], [address] [place] [address] AST [Catalytic activity/Vol] 28 U/L Normal 0-41 [facility] Comment on above: Performed By: #### C ELIZABETH, 72430-7, , THYR #### [facility] ([id number]) [address], [address] [place] [address] Bilirubin [Mass/Vol] 0.9 mg/dL Normal 0.3-1.2 [facility] Comment on above: Performed By: #### Jeffery OJHNSON, 97648-0, , THYR #### [facility] ([id number]) [address], [address] [place] [address] Calcium [Mass/Vol] 8.8 mg/dL Normal 8.5-10.5 [facility] Comment on above: Performed By: #### C ELIZABETH, 80116-4, , THYR #### [facility] ([id number]) [address], [address] [place] [address] Chloride [Moles/Vol] 103 mmol/L Normal 98-109 [facility] Comment on above: Performed By: #### C ELIZABETH, 23150-5, , THYR #### [facility] ([id number]) [address], [address] [place] [address] CO2 [Moles/Vol] 28 mmol/L Normal 22-32 [facility] Comment on above: Performed By: #### C ELIZABETH, , , THYR #### [facility] ([id number]) [address], [address] [place] [address] Creatinine [Mass/Vol] 1.92 mg/dL High 0.60-1.30 [facility] Comment on above: Result Comment: METH OD TRACEABLE TO IDMS STANDARD Performed By: #### C ELIZABETH, , , THYR #### [facility] ([id number]) [address] [facility] [address] [place] [address] GFR/1.73 sq M.predicted among non-blacks MDRD (S/P/Bld) [Vol rate/Area] 35 mL/min/{1.73_m2} Low >59 [facility] Comment on above: Result Comment: Reported eGFR is based on the CKD-EPI 2020 equation that does not use a race coefficient. Performed By: #### Jeffery JOHNSON, , , THYR #### [facility] ([id number]) [address] [place] [address] Glucose [Mass/Vol] 113 mg/dL High 65-99 [facility] Comment on above: Performed By: #### Jeffery JOHNSON, , , THYR #### [facility] ([id number]) [address], [address] [place] [address] Potassium [Moles/Vol] 4.2 mmol/L Normal 3.5-5.0 [facility] Comment on above: Performed By: #### Jeffery JOHNSON, , , THYR #### [facility] ([id number]) [address], [address] [place] [address] Protein [Mass/Vol] 6.3 g/dL Normal 6.0-8.0 [facility] Comment on above: Performed By: #### Jeffery JOHNSON, 43147-8, , THYR #### [facility] ([id number]) [address], [address] [place] [address] Sodium [Moles/Vol] 139 mmol/L Normal 134-146 [facility] Comment on above: Performed By: #### Jeffery JOHNSON, 48722-0, , THYR #### [facility] ([id number]) [address], [address] [place] [address] Urea nitrogen [Mass/Vol] 33 mg/dL High 5-27 [facility] Comment on above: Performed By: #### Jeffery JOHNSON, 85638-9, , THYR #### [facility] ([id number]) [address], [address] [place] [address] Lipid 1996 panelon 4 Cholesterol [Mass/Vol] 135 mg/dL Low 150-[address] [facility] Comment on above: Performed By: #### Jeffery JOHNSON, , , THYR #### [facility] ([id number]) [address], [address] [place] [address] Cholesterol in HDL [Mass/Vol] 45 mg/dL Normal >39 [facility] Comment on above: Result Comment: HDL <40 mg/dL - High Risk HDL > or = 40mg/dL- Desirable HDL >60 mg/dL - Negative Risk Performed By: #### C ELIZABETH, , , THYR #### [facility] ([id number]) [address], [address] [place] [address] Cholesterol in LDL [Mass/Vol] 62 mg/dL Normal <130 [facility] Comment on above: Result Comment: LDL <100 mg/dL - Desirable LDL >160 mg/dL - High Risk Performed By: #### C ELIZABETH, , , THYR #### [facility] ([id number]) [address], [address] [place] [address] Cholesterol in VLDL [Mass/Vol] 28 mg/dL Normal 0-30 [facility] Comment on above: Performed By: #### Jeffery JOHNSON, 58607-3, , THYR #### [facility] ([id number]) [address], [address] [place] [address] CHOLESTEROL:HDL 3.0 Normal 1.0-5.0 [facility] Comment on above: Performed By: #### Jeffery JOHNSON, , , THYR #### [facility] ([id number]) [address], [address] [place] [address] Triglyceride [Mass/Vol] 139 mg/dL Normal 27-150 [facility] Comment on above: Performed By: #### Jeffery JOHNSON, , , THYR #### [facility] ([id number]) [address], [address] [place] [address] MAGNESIUMon 01-18-2024 Magnesium [Mass/Vol] 2.5 mg/dL Normal 1.8-2.6 [facility] Comment on above: Performed By: #### C ELIZABETH, 88166-4, , THYR #### [facility] ([id number]) [address], [address] [place] [address] THYROID PROFILEon 01-18-2024 Free T4 [Mass/Vol] 2.78 ng/dL High 0.61-1.60 [facility] Comment on above: Performed By: #### C ELIZABETH, 83202-1, , THYR #### [facility] ([id number]) [address] [place] [address] TSH 1.30 uIU/mL Normal 0.49-4.67 [facility] Comment on above: Performed By: #### [place], [address]-6, , THYR #### [facility] ([id number]) [address] [place] [address] ECG 12 Leadon 12-25-2023 ECG reveals AV seque ntial pacemaker rhythm [facility] Work Phone: Activated partial thrombopla stin time (aPTT) in platelet poor plasma by coagulation aOrdered By: Praful Yi on 12-11-2023 aPTT Coag (PPP) [Time] 24.2 s Low 25.1-36.5 [facility] Comment on above: A hematocrit value g reater than 55% may lead to inaccurate results in coagulation testing. Patients having hematocrit values >55% require a special collection tube for coagulation studies. Please contact the laboratory at [phone] for redraw instructions. Alanine aminotransferase [En zymatic activity/volume] in Serum or PlasmaOrdered By: Praful Yi on 12-11-2023 ALT [Catalytic activity/Vol] 32 U/L Normal 7-52 [facility] Comment on above: Performed By: #### P T, CBC, HS TROP, PTT, CK, BNP, BMP, HEPATIC #### [facility] [id number] [facility] Albumin [Mass/volume] in Ser um or Plasma by Bromocresol green (BCG) dye binding methoOrdered By: Praful Yi on 12-11-2023 Albumin BCG dye [Mass/Vol] 3.9 g/dL 3.5-5.7 [facility] Alkaline phosphatase [Enzyma tic activity/volume] in Serum or PlasmaOrdered By: Praful Yi on 12-11-2023 ALP [Catalytic activity/Vol] 51 U/L Normal 34-104 [facility] Comment on above: Performed By: #### P T, CBC, HS TROP, PTT, CK, BNP, BMP, HEPATIC #### [address] Aspartate aminotransferase [ Enzymatic activity/volume] in Serum or PlasmaOrdered By: Praful Yi on 12-11-2023 AST [Catalytic activity/Vol] 28 U/L Normal 13-39 [facility] Comment on above: Performed By: #### P T, CBC, HS TROP, PTT, CK, BNP, BMP, HEPATIC #### [address] Automated basophil %Ordered By: Praful Yi on 12-11-2023 Basophils/100 WBC (Bld) 0.5 % Normal . [facility] Comment on above: Performed By: #### P T, CBC, HS TROP, PTT, CK, BNP, BMP, HEPATIC #### [address] Automated basophil countOrde red By: Praful Yi on 12-11-2023 Basophils (Bld) [#/Vol] 0.0 10*3/uL Normal 0.0-0.2 [facility] Comment on above: Result Comment: PERF ORMED BY: [place] [address] PATHOLOGIST GROUND INTELLIGENCE OFFICER PAM BISHOP M.D. Performed By: #### P T, CBC, HS TROP, PTT, CK, BNP, BMP, HEPATIC #### [address] Automated blood monocyte cou ntOrdered By: Praful Yi on 12-11-2023 Monocytes (Bld) [#/Vol] 1.1 10*3/uL High 0.0-0.8 [facility] Comment on above: Performed By: #### P T, CBC, HS TROP, PTT, CK, BNP, BMP, HEPATIC #### [address] Automated eosinophil %Ordere d By: Praful Yi on 12-11-2023 Eosinophils/100 WBC (Bld) 2.3 % Normal . [facility] Comment on above: Performed By: #### P T, CBC, HS TROP, PTT, CK, BNP, BMP, HEPATIC #### [address] Automated eosinophil countOr dered By: Praful Yi on 12-11-2023 Eosinophils (Bld) [#/Vol] 0.2 10*3/uL Normal 0.0-0.45 [facility] Comment on above: Performed By: #### P T, CBC, HS TROP, PTT, CK, BNP, BMP, HEPATIC #### [address] Automated monocyte %Ordered By: Praful Yi on 12-11-2023 Monocytes/100 WBC (Bld) 11.9 % Normal . [facility] Comment on above: Performed By: #### P T, CBC, HS TROP, PTT, CK, BNP, BMP, HEPATIC #### [address] Automated neutrophil %Ordere d By: Praful Yi on 12-11-2023 Neutrophils/100 WBC (Bld) 70.0 % Normal . [facility] Comment on above: Performed By: #### P T, CBC, HS TROP, PTT, CK, BNP, BMP, HEPATIC #### [address] BNP ser/plasOrdered By: Felisa Yi on 12-11-2023 Natriuretic peptide B (Bld) [Mass/Vol] 89.0 pg/mL Normal 5-100 [facility] Comment on above: Result Comment: PERF ORMED BY: [place] [address] PATHOLOGIST GR[employer] INTELLIGENCE OFFICER PAM BISHOP M.D. Performed By: #### P T, CBC, HS TROP, PTT, CK, BNP, BMP, HEPATIC #### [address] Basic Metabolic Panelon 12-01 Creatinine Clr Calc Pharmacy 38.42 Normal [facility] Comment on above: Result Comment: PERF ORMED BY: [place] [address] PATHOLOGIST GR[employer] INTELLIGENCE OFFICER PAM BISHOP M.D. Performed By: #### P T, CBC, HS TROP, PTT, CK, BNP, BMP, HEPATIC #### [address] GFR/1.73 sq M.predicted MDRD (S/P/Bld) [Vol rate/Area] 39.069 mL/min/{1.73_m2} Normal [facility] Comment on above: Performed By: #### P T, CBC, HS TROP, PTT, CK, BNP, BMP, HEPATIC #### [address] Bilirubin.direct [Mass/volum e] in Serum or PlasmaOrdered By: Praful Yi on 12-11-2023 Bilirubin.direct [Mass/Vol] 0.20 mg/dL High 0.03-0.18 [facility] Bilirubin.total [Mass/volume ] in Serum or PlasmaOrdered By: Praful Yi on 12-11-2023 Bilirubin [Mass/Vol] 0.7 mg/dL Normal 0.3-1.0 [facility] Comment on above: Performed By: #### P T, CBC, HS TROP, PTT, CK, BNP, BMP, HEPATIC #### [facility] [address] [place] [address] Calcium [Mass/volume] in Ser um or PlasmaOrdered By: Praful Yi on 12-11-2023 Calcium [Mass/Vol] 8.5 mg/dL Low 8.6-10.3 [facility] Comment on above: Performed By: #### P T, CBC, HS TROP, PTT, CK, BNP, BMP, HEPATIC #### [facility] [address] [place] [address] Carbon dioxide, total [Moles /volume] in Serum or PlasmaOrdered By: Praful Yi on 12-11-2023 CO2 [Moles/Vol] 25.0 mmol/L Normal 21.0-31.0 [facility] Comment on above: Performed By: #### P T, CBC, HS TROP, PTT, CK, BNP, BMP, HEPATIC #### [address] Chloride [Moles/volume] in S raiza or PlasmaOrdered By: Praful Yi on 12-11-2023 Chloride [Moles/Vol] 101 mmol/L Normal 98-107 [facility] Comment on above: Performed By: #### P T, CBC, HS TROP, PTT, CK, BNP, BMP, HEPATIC #### [address] Complete Blood Count Auto Di ffon 12-11-2023 Mean Corpuscular HGB Conc 33.7 g/dL Normal 32.5-35.6 [facility] Comment on above: Performed By: #### P T, CBC, HS TROP, PTT, CK, BNP, BMP, HEPATIC #### [address] Monocytes/100 WBC (Bld) 17.35 % Normal 0.00-20.00 [facility] Comment on above: Performed By: #### P T, CBC, HS TROP, PTT, CK, BNP, BMP, HEPATIC #### [address] NRBC% 0.0 /100{WBC} Normal 0-0.5 [facility] Comment on above: Performed By: #### P T, CBC, HS TROP, PTT, CK, BNP, BMP, HEPATIC #### [address] Creatine kinase [Enzymatic a ctivity/volume] in Serum or PlasmaOrdered By: Praful Yi on 12-11-2023 CK [Catalytic activity/Vol] 108 U/L Normal 30-223 [facility] Comment on above: Performed By: #### P T, CBC, HS TROP, PTT, CK, BNP, BMP, HEPATIC #### [address] Creatinine [Mass/volume] in Serum or PlasmaOrdered By: Praful Yi on 12-11-2023 Creatinine [Mass/Vol] 1.77 mg/dL High 0.70-1.30 [facility] Comment on above: Performed By: #### P T, CBC, HS TROP, PTT, CK, BNP, BMP, HEPATIC #### [facility] [address] [place] [address] ECG 12 lead ECGon 12-11-2023 ECG 12 lead ECG [facility] [place] [address] [place] [address] Electrocardiograph Report Signed Patient: Shawna Hernandes MR#: [id number] : 1945 Acct:[id number] Age/Sex: 78 / M ADM Date: 12/11/23 Loc: ER Room: Type: [facility] ER Attending Dr: Ordering Provider: Praful Yi DO Date of Service: 12/11/2305/26/908 ECG/ECG 12 lead ECG: Arrhythmia/Palpitations Copies to: Test Reason : Blood Pressure : 145/070 mmHG Vent. Rate : 079 BPM Atrial Rate : 079 BPM P-R Int : 154 ms QRS Dur : 130 ms QT Int : 440 ms P-R-T Axes : 071 -04 086 degrees QTc Int : 504 ms Atrial-sensed ventricular-paced rhythm Abnormal ECG When compared with ECG of 21-JUL-2023 09:39, Vent. rate has increased BY 19 BPM Confirmed by Praful Yi DO ([id number]) on 12/11/2023 3:42:01 PM Referred By: Electronically Signed By:Praful Yi DO Transcribed By: MUS Signed By Praful Yi DO 4 1542 Normal [facility] Erythrocyte distribution wid th [Ratio] by Automated countOrdered By: Praful Yi on 12-11-2023 Erythrocyte distribution width (RBC) [Ratio] 13.3 % Normal 12.0-14.8 [facility] Comment on above: Performed By: #### P T, CBC, HS TROP, PTT, CK, BNP, BMP, HEPATIC #### [facility] [address] Erythrocytes [#/volume] in B lood by Automated countOrdered By: Praful Yi on 12-11-2023 RBC (Bld) [#/Vol] 4.05 10*6/uL Normal 3.90-5.60 [facility] Comment on above: Performed By: #### P T, CBC, HS TROP, PTT, CK, BNP, BMP, HEPATIC #### [facility] [address] [place] [address] Glucose [Mass/volume] in Ser um or PlasmaOrdered By: Praful Yi on 12-11-2023 Glucose [Mass/Vol] 119 mg/dL High 70-100 [facility] Comment on above: ADA recommended refe rence rangeRandom Glucose Reference Range is dependent on time and content of last meal. Glucose of more than 200 mg/dL in a nonstressed, ambulatory subject supports the diagnosis of Diabetes Mellitus. Result Comment: [place] om Glucose Reference Range is dependent on time and content of last meal. Glucose of more than 200 mg/dL in a nonstressed, ambulatory subject supports the diagnosis of Diabetes Mellitus. ADA recommended reference range Performed By: #### P T, CBC, HS TROP, PTT, CK, BNP, BMP, HEPATIC #### [facility] [address] [place] [address] Hematocrit [Volume Fraction] of Blood by Automated countOrdered By: Praful Yi on 12-11-2023 Hematocrit (Bld) [Volume fraction] 40.5 % Normal 38.8-50.0 [facility] Comment on above: Performed By: #### P T, CBC, HS TROP, PTT, CK, BNP, BMP, HEPATIC #### [facility] [address] [place] [address] Hemoglobin [Mass/volume] in BloodOrdered By: Praful Yi on 12-11-2023 Hemoglobin (Bld) [Mass/Vol] 13.6 g/dL Normal 13.0-17.0 [facility] Comment on above: Performed By: #### P T, CBC, HS TROP, PTT, CK, BNP, BMP, HEPATIC #### [place] [id number] [place] Hepatic Panelon 12-11-2023 Albumin [Mass/Vol] 3.9 g/dL Normal 3.5-5.7 [facility] Comment on above: Performed By: #### P T, CBC, HS TROP, PTT, CK, BNP, BMP, HEPATIC #### [facility] [address] Bilirubin,Indirect 0.5 mg/dL Normal [facility] Comment on above: Performed By: #### P T, CBC, HS TROP, PTT, CK, BNP, BMP, HEPATIC #### [facility] [address] Bilirubin.indirect [Mass/Vol] 0.20 mg/dL High 0.03-0.18 [facility] Comment on above: Performed By: #### P T, CBC, HS TROP, PTT, CK, BNP, BMP, HEPATIC #### [facility] [address] INR in Platelet poor plasma by Coagulation assayOrdered By: Praful Yi on 12-11-2023 INR Coag (PPP) [Relative time] 1.0 {INR} Normal [facility] Comment on above: INR Therapeutic Rang e A) Pre- and Peroperative OAT started two weeks before surgery. NOT HIP SURGERY: 1.5 - 2.5 HIP SURGERY: 2 - 3B) Primary and secondary prevention of venous THROMBOSIS: 2 - 3C) Active venous thrombosis, pulmonary embolismand prevention of recurrent venous thrombosis: 2 - 3D) Prevention of arterial thromboembolismincluding patients with mechanical heart valves: 3 - 4.5 Result Comment: INR Therapeutic Range A) Pre- and Peroperative OAT started two weeks before surgery. NOT HIP SURGERY: 1.5 - 2.5 HIP SURGERY: 2 - 3 B) Primary and secondary prevention of venous THROMBOSIS: 2 - 3 C) Active venous thrombosis, pulmonary embolism and prevention of recurrent venous thrombosis: 2 - 3 D) Prevention of arterial thromboembolism including patients with mechanical heart valves: 3 - 4.5 Performed By: #### P T, CBC, HS TROP, PTT, CK, BNP, BMP, HEPATIC #### [facility] [address] Leukocytes [#/volume] correc drake for nucleated erythrocytes in Blood by Automated counOrdered By: Praful Yi on 12-11-2023 WBC corrected for nucl RBC Auto (Bld) [#/Vol] 9.0 10*3/uL 4.1-10.5 [facility] Leukocytes [#/volume] in Blo od by Automated countOrdered By: Praful Yi on 12-11-2023 WBC (Bld) [#/Vol] 9.0 10*3/uL Normal 4.1-10.5 [facility] Comment on above: Performed By: #### P T, CBC, HS TROP, PTT, CK, BNP, BMP, HEPATIC #### [facility] [address] [place] [address] [place] Lymphocytes [#/volume] in Bl ood by Automated countOrdered By: Praful Yi on 12-11-2023 Lymphocytes (Bld) [#/Vol] 1.4 10*3/uL Normal 1.00-4.8 [facility] Comment on above: Performed By: #### P T, CBC, HS TROP, PTT, CK, BNP, BMP, HEPATIC #### [facility] [address] [place] [address] [place] Lymphocytes/100 leukocytes i n Blood by Automated countOrdered By: Praful Yi on 12-11-2023 Lymphocytes/100 WBC (Bld) 15.3 % Normal . [facility] Comment on above: Performed By: #### P T, CBC, HS TROP, PTT, CK, BNP, BMP, HEPATIC #### [facility] [address] [place] [address] [place] MCH [Entitic mass] by Automa drake countOrdered By: Praful Yi on 12-11-2023 MCH (RBC) [Entitic mass] 33.7 pg Normal 27.5-35.2 [facility] Comment on above: Performed By: #### P T, CBC, HS TROP, PTT, CK, BNP, BMP, HEPATIC #### [facility] [address] [place] [address] MCHC Auto (RBC) [Mass/Vol]Or dered By: Praful Yi on 12-11-2023 MCHC (RBC) [Mass/Vol] 33.7 g/dL 32.5-35.6 [facility] MCV [Entitic volume] by Auto mated countOrdered By: Praful Yi on 12-11-2023 MCV (RBC) [Entitic vol] 100.0 fL Normal 83.5-101 [facility] Comment on above: Performed By: #### P T, CBC, HS TROP, PTT, CK, BNP, BMP, HEPATIC #### [facility] [address] Monocyte distribution width [Entitic volume] in Blood by AutomatedOrdered By: Praful Yi on 12-11-2023 Monocyte distribution width Auto (Bld) [Entitic vol] 17.35 % 0.00-20.00 [facility] Neutrophils [#/volume] in Bl ood by Automated countOrdered By: Praful Yi on 12-11-2023 Neutrophils (Bld) [#/Vol] 6.3 10*3/uL Normal 1.8-7.7 [facility] Comment on above: Performed By: #### P T, CBC, HS TROP, PTT, CK, BNP, BMP, HEPATIC #### [facility] [address] No Panel InformationOrdered By: Praful Yi on 12-11-2023 Estimated GFR (CKD-EPI) 39.069 mL/Min [facility] Creatinine Clearance (Chem 38.42 [facility] Nucleated erythrocytes [Pres ence] in Blood by Automated countOrdered By: Praful Yi on 12-11-2023 Nucleated RBC Auto Ql (Bld) 0.0 /100{WBC} 0-0.5 [facility] Partial Thromboplastin Timeo n 12-11-2023 aPTT Coag (Bld) [Time] 24.2 s Low 25.1-36.5 [facility] Comment on above: Result Comment: A he matocrit value greater than 55% may lead to inaccurate results in coagulation testing. Patients having hematocrit values >55% require a special collection tube for coagulation studies. Please contact the laboratory at [phone] for redraw instructions. PERFORMED BY: [place] [address] PATHOLOGIST [employer]LLIGENCE OFFICER PAM BISHOP M.D. Performed By: #### P T, CBC, HS TROP, PTT, CK, BNP, BMP, HEPATIC #### [address] Platelet mean volume [Entiti c volume] in Blood by Automated countOrdered By: Praful Yi on 12-11-2023 Platelet mean volume (Bld) [Entitic vol] 9.9 fL Normal 6.6-10.1 [facility] Comment on above: Performed By: #### P T, CBC, HS TROP, PTT, CK, BNP, BMP, HEPATIC #### [address] Platelets [#/volume] in Bloo d by Automated countOrdered By: Praful Yi on 12-11-2023 Platelets (Bld) [#/Vol] 174 10*3/uL Normal 150-450 [facility] Comment on above: Performed By: #### P T, CBC, HS TROP, PTT, CK, BNP, BMP, HEPATIC #### [address] Potassium [Moles/volume] in Serum or PlasmaOrdered By: Praful Yi on 12-11-2023 Potassium [Moles/Vol] 3.7 mmol/L Normal 3.5-5.1 [facility] Comment on above: Performed By: #### P T, CBC, HS TROP, PTT, CK, BNP, BMP, HEPATIC #### [address] Protein [Mass/volume] in Ser um or PlasmaOrdered By: Praful Yi on 12-11-2023 Protein [Mass/Vol] 6.6 g/dL Normal 6.4-8.9 [facility] Comment on above: Performed By: #### P T, CBC, HS TROP, PTT, CK, BNP, BMP, HEPATIC #### [address] Prothrombin time (PT)Ordered By: Praful Yi on 12-11-2023 PT Coag (PPP) [Time] 11.9 s Normal 9.0-12.9 [facility] Comment on above: A hematocrit value g reater than 55% may lead to inaccurate results in coagulation testing. Patients having hematocrit values >55% require a special collection tube for coagulation studies. Please contact the laboratory at [phone] for redraw instructions. Result Comment: A he matocrit value greater than 55% may lead to inaccurate results in coagulation testing. Patients having hematocrit values >55% require a special collection tube for coagulation studies. Please contact the laboratory at [phone] for redraw instructions. Performed By: #### P T, CBC, HS TROP, PTT, CK, BNP, BMP, HEPATIC #### [facility] [address] [place] [address] Serum globulin measurement b y calculation (mass/volume)Ordered By: Praful Yi on 12-11-2023 Globulin (S) [Mass/Vol] 2.7 g/dL [facility] Comment on above: Performed By: #### P T, CBC, HS TROP, PTT, CK, BNP, BMP, HEPATIC #### [facility] [address] [place] [address] Serum or plasma albumin/glob ulin mass ratioOrdered By: Praful Yi on 12-11-2023 Albumin/Globulin [Mass ratio] 1.4 {ratio} [facility] Comment on above: Performed By: #### P T, CBC, HS TROP, PTT, CK, BNP, BMP, HEPATIC #### [facility] [address] [place] [address] Serum or plasma anion gap de terminationOrdered By: Praful Yi on 12-11-2023 Anion gap [Moles/Vol] 14.7 mmol/L Normal 6.0-15.0 [facility] Comment on above: Performed By: #### P T, CBC, HS TROP, PTT, CK, BNP, BMP, HEPATIC #### [facility] [address] [place] [address] Serum or plasma non-glucuron idated bilirubin measurement (mass/volume)Ordered By: Praful Yi on 12-11-2023 Bilirubin.indirect [Mass/Vol] 0.5 mg/dL [facility] Sodium [Moles/volume] in Ser um or PlasmaOrdered By: Praful Yi on 12-11-2023 Sodium [Moles/Vol] 137 mmol/L Normal 136-145 [facility] Comment on above: Performed By: #### P T, CBC, HS TROP, PTT, CK, BNP, BMP, HEPATIC #### [facility] [address] Troponin I High Sensitivityo n 12-11-2023 Troponin I High Sensitivity 124.6 pg/mL Off scale high 0.0-20.0 [facility] Comment on above: Result Comment: Crit ical Result : Called to and read back by: SAMANTA CUEVAS at: 12/11/2023 10:39:47 by:RODERICK PERFORMED BY: [place] [address] PATHOLOGIST [employer] OFFICER PAM BISHOP M.D. Performed By: #### P T, CBC, HS TROP, PTT, CK, BNP, BMP, HEPATIC ####[facility] Troponin I.cardiac [Mass/vol ume] in Serum or Plasma by Detection limit <= 0.01 ng/Ordered By: Praful Yi on 12-11-2023 Troponin I.cardiac DL <= 0.01 ng/mL [Mass/Vol] 124.6 pg/mL High 0.0-20.0 [facility] Comment on above: Critical Result : Ca lled to and read back by: SAMANTA CUEVAS at: 12/11/2023 10:39:47 by:RODERICK Urea nitrogen [Mass/volume] in Serum or PlasmaOrdered By: Praful Yi on 12-11-2023 Urea nitrogen [Mass/Vol] 28 mg/dL High 7-25 [facility] Comment on above: Performed By: #### P T, CBC, HS TROP, PTT, CK, BNP, BMP, HEPATIC #### [facility] [address] [place] [address] XR chest 1V portableon 12-10 XR chest 1V portable [facility] [place] [address] [place] [id number] XRay Report Signed Patient: Shawna Hernandes MR#: [id number] : 1945 Acct:[id number] Age/Sex: 78 / M ADM Date: 12/11/23 Loc: ER Room: Type: [facility] ER Attending Dr: Copies to: Praful Yi DO Ordering Provider: Praful Yi DO Date of Service: 12/11/23 XR/XR chest 1V portable: Arrhythmia/Palpitations Plain film chest Single view HISTORY: Firing of defibrillator this morning COMPARISON: 07/21/2023 FINDINGS: SUPPORT DEVICES: None POSTSURGICAL CHANGES: Cardiac device and abandoned cardiac leads unchanged. HEART: Within normal limits PULMONARY BANG: Within normal limits MEDIASTINUM: Unremarkable LUNGS AND PLEURA: No acute lung process, pleural effusion or pneumothorax identified. BONY STRUCTURES: Intact ADDITIONAL FINDINGS None XR/XR chest 1V portable IMPRESSION: No acute process. Impression dictated by: Rashaun Shin M.D.12/11/2023 9:48 AM Dictation Location: [place] [address] Transcribed By: [facility] 12/11/23947 Dictated By: Rashaun Shin DO 12/11/23946 Signed By: 12/11/23947 Normal [facility] Automated basophil %Ordered By: Darek Kelley on 10-13-2023 Basophils/100 WBC (Bld) 0.5 % Normal . [facility] Comment on above: Performed By: #### C BC, PT ####[facility] [id number] [place] [address] [facility] Automated basophil countOrde red By: Darek Kelley on 10-13-2023 Basophils (Bld) [#/Vol] 0.0 10*3/uL Normal 0.0-0.2 [facility] Comment on above: Result Comment: PERF ORMED BY: [address] [address] PATHOLOGIST GROUND [employer]LL[employer] OFFICER JIANLAN SUN M.D. Performed By: #### C BC, PT ####[address] Automated blood monocyte cou ntOrdered By: Darek Kelley on 10-13-2023 Monocytes (Bld) [#/Vol] 0.7 10*3/uL Normal 0.0-0.8 [facility] Comment on above: Performed By: #### C BC, PT ####[address] Automated eosinophil %Ordere d By: Darek Kelley on 10-13-2023 Eosinophils/100 WBC (Bld) 2.0 % Normal . [facility] Comment on above: Performed By: #### C BC, PT ####[address] Automated eosinophil countOr dered By: Darek Kelley on 10-13-2023 Eosinophils (Bld) [#/Vol] 0.1 10*3/uL Normal 0.0-0.45 [facility] Comment on above: Performed By: #### C BC, PT ####[address] Automated monocyte %Ordered By: Darek Kelley on 10-13-2023 Monocytes/100 WBC (Bld) 10.3 % Normal . [facility] Comment on above: Performed By: #### C BC, PT ####[address] Automated neutrophil %Ordere d By: Darek Kelley on 10-13-2023 Neutrophils/100 WBC (Bld) 77.5 % Normal . [facility] Comment on above: Performed By: #### C BC, PT ####[address] Complete Blood Count Auto Di ffon 10-13-2023 Mean Corpuscular HGB Conc 33.9 g/dL Normal 32.5-35.6 [facility] Comment on above: Performed By: #### C BC, PT ####[address] [place] [address] [place] NRBC% 0.0 /100{WBC} Normal 0-0.5 [facility] Comment on above: Performed By: #### C BC, PT ####[address] Erythrocyte distribution wid th [Ratio] by Automated countOrdered By: Darek Kelley on 10-13-2023 Erythrocyte distribution width (RBC) [Ratio] 13.9 % Normal 12.0-14.8 [facility] Comment on above: Performed By: #### C BC, PT ####[address] Erythrocytes [#/volume] in B lood by Automated countOrdered By: Darek Kelley on 10-13-2023 RBC (Bld) [#/Vol] 3.81 10*6/uL Low 3.90-5.60 [facility] Comment on above: Performed By: #### C BC, PT ####[address] Hematocrit [Volume Fraction] of Blood by Automated countOrdered By: Darek Kelley on 10-13-2023 Hematocrit (Bld) [Volume fraction] 38.2 % Low 38.8-50.0 [facility] Comment on above: Performed By: #### C BC, PT ####[address] Hemoglobin [Mass/volume] in BloodOrdered By: Darek Kelley on 10-13-2023 Hemoglobin (Bld) [Mass/Vol] 13.0 g/dL Normal 13.0-17.0 [facility] Comment on above: Performed By: #### C BC, PT ####[address] INR in Platelet poor plasma by Coagulation assayOrdered By: Darek Kelley on 10-13-2023 INR Coag (PPP) [Relative time] 1.1 {INR} Normal [facility] Comment on above: INR Therapeutic Rang e A) Pre- and Peroperative OAT started two weeks before surgery. NOT HIP SURGERY: 1.5 - 2.5 HIP SURGERY: 2 - 3B) Primary and secondary prevention of venous THROMBOSIS: 2 - 3C) Active venous thrombosis, pulmonary embolismand prevention of recurrent venous thrombosis: 2 - 3D) Prevention of arterial thromboembolismincluding patients with mechanical heart valves: 3 - 4.5 Result Comment: INR Therapeutic Range A) Pre- and Peroperative OAT started two weeks before surgery. NOT HIP SURGERY: 1.5 - 2.5 HIP SURGERY: 2 - 3 B) Primary and secondary prevention of venous THROMBOSIS: 2 - 3 C) Active venous thrombosis, pulmonary embolism and prevention of recurrent venous thrombosis: 2 - 3 D) Prevention of arterial thromboembolism including patients with mechanical heart valves: 3 - 4.5 PERFORMED BY: [facility] [address] [place] [id number] PATHOLOGIST GR[employer]TELL[employer] OFFICER PAM BISHOP M.D. Performed By: #### C ANALIA, PT ####[place] [address] [place] [id number] [facility] Leukocytes [#/volume] correc drake for nucleated erythrocytes in Blood by Automated counOrdered By: Darek Kelley on 10-13-2023 WBC corrected for nucl RBC Auto (Bld) [#/Vol] 7.0 10*3/uL 4.1-10.5 [facility] Leukocytes [#/volume] in Blo od by Automated countOrdered By: Darek Kelley on 10-13-2023 WBC (Bld) [#/Vol] 7.0 10*3/uL Normal 4.1-10.5 [facility] Comment on above: Performed By: #### C ANALIA, PT ####[place] [address] [place] [id number] [facility] Lymphocytes [#/volume] in Bl ood by Automated countOrdered By: Darek Kelley on 10-13-2023 Lymphocytes (Bld) [#/Vol] 0.7 10*3/uL Low 1.00-4.8 [facility] Comment on above: Performed By: #### C ANALIA, PT ####[place] [id number] [facility] Lymphocytes/100 leukocytes i n Blood by Automated countOrdered By: Darek Kelley on 10-13-2023 Lymphocytes/100 WBC (Bld) 9.7 % Normal . [facility] Comment on above: Performed By: #### C BC, PT ####[place] [address] [address] MCH [Entitic mass] by Automa drake countOrdered By: Darek Kelley on 10-13-2023 MCH (RBC) [Entitic mass] 34.1 pg Normal 27.5-35.2 [facility] Comment on above: Performed By: #### C BC, PT ####[address] MCHC Auto (RBC) [Mass/Vol]Or dered By: Darek Kelley on 10-13-2023 MCHC (RBC) [Mass/Vol] 33.9 g/dL 32.5-35.6 [facility] MCV [Entitic volume] by Auto mated countOrdered By: Darek Kelley on 10-13-2023 MCV (RBC) [Entitic vol] 100.5 fL Normal 83.5-101 [facility] Comment on above: Performed By: #### C BC, PT ####[address] Neutrophils [#/volume] in Bl ood by Automated countOrdered By: Darek Kelley on 10-13-2023 Neutrophils (Bld) [#/Vol] 5.4 10*3/uL Normal 1.8-7.7 [facility] Comment on above: Performed By: #### C BC, PT ####[address] Nucleated erythrocytes [Pres ence] in Blood by Automated countOrdered By: Darek Kelley on 10-13-2023 Nucleated RBC Auto Ql (Bld) 0.0 /100{WBC} 0-0.5 [facility] Platelet mean volume [Entiti c volume] in Blood by Automated countOrdered By: Darek Kelley on 10-13-2023 Platelet mean volume (Bld) [Entitic vol] 9.7 fL Normal 6.6-10.1 [facility] Comment on above: Performed By: #### C BC, PT ####[place] [address] [address] Platelets [#/volume] in Bloo d by Automated countOrdered By: Darek Kelley on 10-13-2023 Platelets (Bld) [#/Vol] 183 10*3/uL Normal 150-450 [facility] Comment on above: Performed By: #### C BC, PT ####[place] [id number] [address] Prothrombin time (PT)Ordered By: Darek Kelley on 10-13-2023 PT Coag (PPP) [Time] 12.3 s Normal 9.0-12.9 [facility] Comment on above: A hematocrit value g reater than 55% may lead to inaccurate results in coagulation testing. Patients having hematocrit values >55% require a special collection tube for coagulation studies. Please contact the laboratory at [phone] for redraw instructions. Result Comment: A he matocrit value greater than 55% may lead to inaccurate results in coagulation testing. Patients having hematocrit values >55% require a special collection tube for coagulation studies. Please contact the laboratory at [phone] for redraw instructions. Performed By: #### C BC, PT ####[place] [address] [place] [id number] [facility] CT cervical spine wo conon 0 10-06-2023 CT cervical spine wo con [facility] [address] [place] [address] [place] [address] CT Scan Report Signed Patient: Shawna Hernandes MR#: [id number] : 1945 Acct:[id number] Age/Sex: 78 / M ADM Date: 10/06/23 Loc: [facility] Room: Type: [facility] Attending Dr: Zaina Ellington Adult SUPERVISOR DEHYDROGENATION-BC Copies to: YUVAL Uriarte Ordering Provider: YUVAL Uriarte Date of Service: 10/06/23 CT/CT cervical spine wo con: R25.1,R26.81,W19.XXXA,G95. 9 CT CERVICAL SPINE WITHOUT CONTRAST WITH 3D RECONSTRUCTIONS: CLINICAL HISTORY: Numbness at the soles of the feet. Unsteady gait with falls. COMPARISON: 04/17/2023 TECHNIQUE: Spiral axial unenhanced images were obtained through the cervical spine. Sagittal, coronal and 3D volume-rendered reconstructions were also reviewed. This CT exam was performed using one or more following dose reduction techniques: Automated exposure control, adjustment of the mA and/or kV according to patient size, or use of iterative reconstruction technique. FINDINGS: Alignment is maintained in the sagittal plane. No fractures are identified. There is disc space narrowing at C6-7. There is mild endplate spurring and bilateral facet hypertrophy. At C2-3, there is minor disco-osteophytic bulging and mild facet hypertrophy. There is no significant thecal sac effacement however there is foraminal encroachment, greater on the left. At C3-4, disco- osteophytic bulging is visualized. There is prominent facet disease. There is at least mild thecal sac effacement. There is moderate narrowing of the neural foramen bilaterally. At C4-5, there is slight disco-osteophytic bulging. There is prominent bilateral facet disease. There is mild thecal site effacement. There is severe foraminal impingement, greater on the right. At C5-6, there is minor disco-osteophytic bulging. There is bilateral facet disease. There is subtle thecal sac effacement and minor foraminal encroachment. At C6-7, there is narrowing of the disc space and disco-osteophytic bulging. There is minor facet disease. There is mild thecal sac effacement. There is mild foraminal impingement on the right and mild to moderate on the left. At the cervicothoracic junction, no significant stenosis is noted. The atlantoaxial relationship is maintained. No prevertebral soft tissue swelling is seen. The thyroid lobes are still mildly heterogeneous and there is calcification on the left. The upper imaged lungs show no contributory findings. CT/CT cervical spine wo con IMPRESSION: DISCOVERTEBRAL DEGENERATIVE CHANGES, DESCRIBED. NO ACUTE BONY FINDINGS. Impression dictated by: Sharyn Cole M.D.10/06/2023 3:34 PM Dictation Location: [facility]--14 Transcribed By: [facility] 10/06/23 1534 Dictated By: Sharyn Cole MD 10/06/23 1523 Signed By: 10/06/23 1534 Normal [facility] CT lumbar spine wo jeffery CT lumbar spine wo con [facility] [address] CT Scan Report Signed Patient: Shawna Hernandes MR#: [id number] : 1945 Acct:[id number] Age/Sex: 78 / M ADM Date: 10/06/23 Loc: [facility] Room: Type: [facility] Attending Dr: Zaina Ellington Adult SUPERVISOR DEHYDROGENATION-BC Copies to: YUVAL Uriarte Ordering Provider: YUVAL Uriarte Date of Service: 10/06/23 CT/CT lumbar spine wo con: R25.1,R26.81,W19.XXXA CT LUMBAR SPINE WITHOUT CONTRAST WITH 3-D RECONSTRUCTIONS COMPARISON: 09/02/2019 CLINICAL DATA: Numbness at the soles of the feet. Unsteady gait and falls. Spiral axial unenhanced images were obtained through the lumbar spine. Sagittal, coronal and 3-D volume rendered reconstructions were reviewed. This CT exam was performed using one or more following dose reduction techniques: Automated exposure control, adjustment of the mA and/or kV according to patient size, or use of iterative reconstruction technique. Patient has 11 sets of normal size ribs. There is subtle dextroscoliotic curvature. There is minimal anterolisthesis of L3 with respect to adjacent vertebra. Slight concavity at superior endplate of T11 may be minimally more prominent. There is continued compression deformity at L1 which also appears slightly more prominent than at the time the comparison. No other compression deformities are seen. There is mild disc space narrowing at L2-3 and L3-4. There is vacuum phenomenon at several levels. At L1-2, there is disco-osteophytic bulging as well as facet and ligament hypertrophy with moderate thecal sac effacement. There is also moderate bilateral foraminal encroachment. At L2-3, there is disco-osteophytic bulging with facet and ligamentous hypertrophy with moderate to severe central stenosis. There is moderate right and moderate to severe left foraminal impingement. At L3-4, there is disco-osteophytic bulging as well as facet and ligamentous hypertrophy with moderate to severe central and bilateral foraminal stenosis. At L4-5, there is annular disc bulging, slightly asymmetric through the right neural foramen and extending laterally. There is also endplate spurring at the neural foramen. There is facet hypertrophy, greater on the right. There is mild thecal sac effacement. Moderate to severe narrowing of both neural foramen is present, worse on the right. At the lumbosacral junction, there is asymmetric endplate spurring laterally on the left. No significant disc disease or stenosis is seen. There is mild degenerative change at the SI joints. No paraspinal soft tissue abnormalities are seen. There is a small posterior exophytic right renal hypodensity that is probably a cyst. There is atherosclerotic plaque at the aorta. CT/CT lumbar spine wo con IMPRESSION: T11 AND L1 COMPRESSION DEFORMITIES, SLIGHTLY MORE PROMINENT THAN ON THE COMPARISON. MULTILEVEL DISCOVERTEBRAL DEGENERATIVE CHANGES WITH ASSOCIATED STENOSIS, DISCUSSED ABOVE. Impression dictated by: Sharyn Cole M.D.10/06/2023 3:50 PM Dictation Location: [place] [address] Transcribed By: [facility] 10/06/23 1550 Dictated By: Sharyn Cole MD 10/06/23 1534 Signed By: 10/06/23 1550 Normal [facility] ECG 12 [place]on 10-01-2023 ECG reveals AV seque ntial pacemaker rhythm [facility] Work Phone: RF Gastrointestinal tract up per Views W air contrast PO and W barium contrast Javad 09-17-2023 Radiology Study observation (narrative) g2One FL esophagus ugion 4 FL esophagus ugi [facility] Main [place] [id number] Fluoroscopy Report Signed Patient: Shawna Hernandes MR#: [id number] : 1945 Acct:[id number] Age/Sex: 78 / M ADM Date: 09/16/23 Loc: XD Room: Type: [facility] Attending Dr: GERTRUDE Prabhakar Copies to: LARRY Haynes Ordering Provider: LARRY Haynes Date of Service: 09/16/23 FL/FL esophagus ugi: R13.19 FL esophagus ugi 09/16/2023 8:02 AM SIGNS AND SYMPTOMS: Epigastric pain and vomiting PROTOCOL: Radiographic and fluoroscopic images of the abdomen were obtained before oral gas crystals and contrast administration as well as during and after oral gas crystals and oral barium based contrast administration. COMPARISON: 09/02/2019 FINDINGS: A pacer device is present in the lower chest. Contrast passes readily through the proximal and middle portions of the esophagus. There is a delay in passage through the distal third with tertiary contractions suggesting an element of esophageal dysmotility. There is also mild irregular mucosal thickening in the middle and distal third of the esophagus which may indicate mild underlying esophagitis. There is active gastroesophageal reflux demonstrated during the exam. There is a normal rugal fold pattern within the gastric lumen. Contrast readily passes through the hilar symptoms of the duodenal C-loop. A small duodenal diverticulum is noted. There is no evidence of mass, stricture, mucosal thickening, or ulceration. Cumulative Air Kerma in mGy: 169.68 mGy FL/FL esophagus ugi IMPRESSION: Findings suggest esophageal dysmotility in the distal 30 the esophagus with mild underlying esophagitis. There is active gastroesophageal reflux demonstrated during the exam. The gastric lumen is within normal limits. There is a small duodenal diverticulum. Impression dictated by: Bear Vickers M.D.09/16/2023 12:39 PM Dictation Location: [place] [address] Transcribed By: [facility] 09/16/23 1239 Dictated By: Bear Vickers II, MD 09/16/23 1031 Signed By: 09/16/23 1239 Normal [facility] RF Gastrointestinal tract up per Views W air contrast PO and W barium contrast Javad 09-16-2023 [facility] Alanine aminotransferase [En zymatic activity/volume] in Serum or PlasmaOrdered By: Kalie Sweet on 08-28-2023 ALT [Catalytic activity/Vol] 98 U/L 7-52 [facility] Albumin [Mass/volume] in Ser um or PlasmaOrdered By: Kalie Sweet on 08-28-2023 Albumin [Mass/Vol] 3.7 g/dL 2.9-4.4 [facility] Albumin [Mass/volume] in Ser um or Plasma by Bromocresol green (BCG) dye binding methoOrdered By: Kalie Sweet on 08-28-2023 Albumin BCG dye [Mass/Vol] 4.2 g/dL 3.5-5.7 [facility] Alkaline phosphatase [Enzyma tic activity/volume] in Serum or PlasmaOrdered By: Kalie Sweet on 08-28-2023 ALP [Catalytic activity/Vol] 53 U/L 34-104 [facility] Aspartate aminotransferase [ Enzymatic activity/volume] in Serum or PlasmaOrdered By: Kalie Sweet on 08-28-2023 AST [Catalytic activity/Vol] 52 U/L 13-39 [facility] Bilirubin.total [Mass/volume ] in Serum or PlasmaOrdered By: Kalie Sweet on 08-28-2023 Bilirubin [Mass/Vol] 0.7 mg/dL 0.3-1.0 [facility] C reactive protein [Mass/vol ume] in Serum or PlasmaOrdered By: Kalie Sweet on 08-28-2023 CRP [Mass/Vol] < 0.5 mg/dL 0.0-0.5 [facility] Calcium [Mass/volume] in Ser um or PlasmaOrdered By: Kalie Sweet on 08-28-2023 Calcium [Mass/Vol] 9.1 mg/dL 8.6-10.3 [facility] Carbon dioxide, total [Moles /volume] in Serum or PlasmaOrdered By: Kalie Sweet on 08-28-2023 CO2 [Moles/Vol] 27.7 mmol/L 21.0-31.0 [facility] Chloride [Moles/volume] in S raiza or PlasmaOrdered By: Kalie Sweet on 08-28-2023 Chloride [Moles/Vol] 102 mmol/L 98-107 [facility] Creatinine [Mass/volume] in Serum or PlasmaOrdered By: Kalie Sweet on 08-28-2023 Creatinine [Mass/Vol] 1.81 mg/dL 0.70-1.30 [facility] DNA double strand Ab [Units/ volume] in SerumOrdered By: Klaie Sweet on 08-28-2023 DNA double strand Ab Qn (S) [IU]/mL 0-9 [facility] Comment on above: Negative <5 Equivoca l 5 - 9 Positive >9 Erythrocyte sedimentation ra te by Photometric methodOrdered By: Kalie Sweet on 08-28-2023 ESR Photometric method (Bld) [Velocity] 8 mm/hr 0-19 [facility] Folate [Mass/volume] in Seru m or PlasmaOrdered By: Kalie Sweet on 08-28-2023 Folate [Mass/Vol] ng/mL >5.9 [facility] Comment on above: Folate reference ran ge: >5.9 ng/mlThe WHO technical consultation on folate and vitamin [id number] has determined that folate concentrations lessthan 4 ng/ml are considered deficient. Globulin Calc (S) [Mass/Vol] Ordered By: Kalie Sweet on 08-28-2023 Globulin (S) [Mass/Vol] 2.2 g/dL [facility] Glucose [Mass/volume] in Ser um or PlasmaOrdered By: Kalie Sweet on 08-28-2023 Glucose [Mass/Vol] 89 mg/dL 70-100 [facility] Comment on above: ADA recommended refe rence rangeRandom Glucose Reference Range is dependent on time and content of last meal. Glucose of more than 200 mg/dL in a nonstressed, ambulatory subject supports the diagnosis of Diabetes Mellitus. Glucose mean value [Mass/vol ume] in Blood Estimated from glycated hemoglobinOrdered By: Kalie Sweet on 08-28-2023 Average glucose Estimated from glycated hemoglobin (Bld) [Mass/Vol] 123 mg/dL [facility] Hemoglobin A1c percentageOrd ered By: Kalie Sweet on 08-28-2023 HbA1c (Bld) [Mass fraction] 5.9 % 4.3-5.6 [facility] Comment on above: Increased risk for d iabetes: 5.7 - 6.4diabetes: >6.4glycemic control for adults with diabetes: <7.0 No Panel InformationOrdered By: Kalie Sweet on 08-28-2023 Estimated GFR (CKD-EPI) 38.035 mL/Min [facility] Creatinine Clearance (Chem N/A [facility] Protein Electrophoresis Interpret See comment . [facility] Comment on above: The SPE pattern appe ars unremarkable. Evidence ofmonoclonal protein is not apparent. Protein Electrophoresis M-Jovany Not observed g/dL Not Observed [facility] Protein Electrophoresis Note See comment . [facility] Comment on above: Protein electrophore sis scan will follow via computer,mail, or cleaning supervisor delivery. CHIP [employer]ER Antibody 0.7 AI 0.0-0.9 [facility] Potassium [Moles/volume] in Serum or PlasmaOrdered By: Kalie Sweet on 08-28-2023 Potassium [Moles/Vol] 4.1 mmol/L 3.5-5.1 [facility] Protein [Mass/volume] in Ser um or PlasmaOrdered By: Kalie Sweet on 08-28-2023 Protein [Mass/Vol] 6.4 g/dL 6.4-8.9 [facility] Protein [Mass/Vol] 6.3 g/dL 6.0-8.5 [facility] Scl-70 antibody assayOrdered By: Kalie Sweet on 08-28-2023 SCL-70 extractable nuclear Ab IA Qn (S) <0.2 AI 0.0-0.9 [facility] Serum Gabrielle-1 extractable nucle ar antibody assay (units/volume)Ordered By: Kalie Sweet on 08-28-2023 Gabrielle-1 extractable nuclear Ab Qn (S) <0.2 AI 0.0-0.9 [facility] Serum Sjogrens syndrome-A ex tractable nuclear antibody assay (units/volume)Ordered By: Kalie Sweet on 08-28-2023 Sjogrens syndrome-A extractable nuclear Ab Qn (S) <0.2 AI 0.0-0.9 [facility] Serum Sjogrens syndrome-B ex tractable nuclear antibody assay (units/volume)Ordered By: Kalie Sweet on 08-28-2023 Sjogrens syndrome-B extractable nuclear Ab Qn (S) <0.2 AI 0.0-0.9 [facility] Serum Lopez extractable nucl ear antigen (JORDYN) antibody assay (units/volume)Ordered By: Kalie Sweet on 08-28-2023 Lopez extractable nuclear Ab Qn (S) <0.2 AI 0.0-0.9 [facility] Serum centromere protein B a ntibody assay (units/volume)Ordered By: Kalie Sweet on 08-28-2023 Centromere protein B Ab Qn (S) <0.2 AI 0.0-0.9 [facility] Comment on above: Performed at: [address] [id number] Director: Yaniv Augustin PhD, Phone: [phone] Serum globulin measurement ( mass/volume)Ordered By: Kalie Sweet on 08-28-2023 Globulin (S) [Mass/Vol] 2.6 g/dL 2.2-3.9 [facility] Serum or plasma albumin/glob ulin mass ratioOrdered By: Kalie Sweet on 08-28-2023 Albumin/Globulin [Mass ratio] 1.9 {ratio} [facility] Albumin/Globulin [Mass ratio] 1.4 {ratio} 0.7-1.7 [facility] Serum or plasma alpha 1 glob ulin measurement by electrophoresis (mass/volume)Ordered By: Kalie Sweet on 08-28-2023 Alpha 1 globulin Elph [Mass/Vol] 0.2 g/dL 0.0-0.4 [facility] Serum or plasma alpha 2 glob ulin measurement by electrophoresis (mass/volume)Ordered By: Kalie Sweet on 08-28-2023 Alpha 2 globulin Elph [Mass/Vol] 0.8 g/dL 0.4-1.0 [facility] Serum or plasma anion gap de terminationOrdered By: Kalie Sweet on 08-28-2023 Anion gap [Moles/Vol] 11.4 mmol/L 6.0-15.0 [facility] Serum or plasma beta globuli n measurement by electrophoresis (mass/volume)Ordered By: Kalie Sweet on 08-28-2023 Beta globulin Elph [Mass/Vol] 1.0 g/dL 0.7-1.3 [facility] Serum or plasma chromatin an tibody assay (units/volume)Ordered By: Kalie Sweet on 08-28-2023 Chromatin Ab Qn <0.2 AI 0.0-0.9 [facility] Serum or plasma gamma globul in measurement by electrophoresis (mass/volume)Ordered By: Kalie Sweet on 08-28-2023 Gamma globulin Elph [Mass/Vol] 0.6 g/dL 0.4-1.8 [facility] Serum or plasma methylmalona te measurement (moles/volume)Ordered By: Kalie Sweet on 08-28-2023 Methylmalonate [Moles/Vol] 276 nmol/L 0-378 [facility] Comment on above: This test was yany paul and its performance characteristicsdetermined by [facility]. It has not been cleared orapproved by the Food and Drug Administration.Performed at: [employer] [id number] Director: Saira Jasso MD, Phone: [phone] Sodium [Moles/volume] in Ser um or PlasmaOrdered By: Kalie Sweet on 08-28-2023 Sodium [Moles/Vol] 137 mmol/L 136-145 [facility] Thyrotropin [Units/volume] i n Serum or PlasmaOrdered By: Kalie Sweet on 08-28-2023 TSH Qn 1.06 m[IU]/L 0.45-5.33 [facility] Thyroxine (T4) free [Mass/vo lume] in Serum or PlasmaOrdered By: Kalie Sweet on 08-28-2023 Free T4 [Mass/Vol] 2.15 ng/dL 0.61-1.12 [facility] Urea nitrogen [Mass/volume] in Serum or PlasmaOrdered By: Kalie Sweet on 08-28-2023 Urea nitrogen [Mass/Vol] 28 mg/dL 7-25 [facility] Vitamin B12 ser/plasOrdered By: Kalie Sweet on 08-28-2023 Cobalamin (Vitamin B12) [Mass/Vol] 519 pg/mL 180-914 [facility] Activated partial thrombopla stin time (aPTT) in platelet poor plasma by coagulation aOrdered By: Marito Powers on 07-21-2023 aPTT Coag (PPP) [Time] 25.9 s 25.1-36.5 [facility] Comment on above: A hematocrit value g reater than 55% may lead to inaccurate results in coagulation testing. Patients having hematocrit values >55% require a special collection tube for coagulation studies. Please contact the laboratory at [phone] for redraw instructions. Alanine aminotransferase [En zymatic activity/volume] in Serum or PlasmaOrdered By: Marito Powers on 07-21-2023 ALT [Catalytic activity/Vol] 90 U/L 7-52 [facility] Albumin [Mass/volume] in Ser um or Plasma by Bromocresol green (BCG) dye binding methoOrdered By: Marito Powers on 07-21-2023 Albumin BCG dye [Mass/Vol] 4.1 g/dL 3.5-5.7 [facility] Alkaline phosphatase [Enzyma tic activity/volume] in Serum or PlasmaOrdered By: Marito Powers on 07-21-2023 ALP [Catalytic activity/Vol] 54 U/L 34-104 [facility] Aspartate aminotransferase [ Enzymatic activity/volume] in Serum or PlasmaOrdered By: Marito Powers on 07-21-2023 AST [Catalytic activity/Vol] 48 U/L 13-39 [facility] Basophils Auto (Bld) [#/Vol] Ordered By: Marito Powers on 07-21-2023 Basophils (Bld) [#/Vol] 0.0 10*3/uL 0.0-0.2 [facility] Basophils/100 WBC Auto (Bld) Ordered By: Marito Powers on 07-21-2023 Basophils/100 WBC (Bld) 0.4 % . [facility] Bilirubin.total [Mass/volume ] in Serum or PlasmaOrdered By: Marito Powers on 07-21-2023 Bilirubin [Mass/Vol] 0.7 mg/dL 0.3-1.0 [facility] Calcium [Mass/volume] in Ser um or PlasmaOrdered By: aMrito Powers on 07-21-2023 Calcium [Mass/Vol] 9.0 mg/dL 8.6-10.3 [facility] Carbon dioxide, total [Moles /volume] in Serum or PlasmaOrdered By: Marito Powers on 07-21-2023 CO2 [Moles/Vol] 25.0 mmol/L 21.0-31.0 [facility] Chloride [Moles/volume] in S raiza or PlasmaOrdered By: Marito Powers on 07-21-2023 Chloride [Moles/Vol] 103 mmol/L 98-107 [facility] Creatine kinase [Enzymatic a ctivity/volume] in Serum or PlasmaOrdered By: Marito Powers on 07-21-2023 CK [Catalytic activity/Vol] 42 U/L 30-223 [facility] Creatinine [Mass/volume] in Serum or PlasmaOrdered By: Marito Powers on 07-21-2023 Creatinine [Mass/Vol] 1.79 mg/dL 0.70-1.30 [facility] Eosinophils Auto (Bld) [#/Vo l]Ordered By: Marito Powers on 07-21-2023 Eosinophils (Bld) [#/Vol] 0.1 10*3/uL 0.0-0.45 [facility] Eosinophils/100 WBC Auto (Bl d)Ordered By: Marito Powers on 07-21-2023 Eosinophils/100 WBC (Bld) 1.4 % . [facility] Erythrocyte distribution wid th Auto (RBC) [Ratio]Ordered By: Marito Powers on 07-21-2023 Erythrocyte distribution width (RBC) [Ratio] 13.8 % 12.0-14.8 [facility] Globulin Calc (S) [Mass/Vol] Ordered By: Marito Powers on 07-21-2023 Globulin (S) [Mass/Vol] 2.8 g/dL [facility] Glucose [Mass/volume] in Ser um or PlasmaOrdered By: Mairto Powers on 07-21-2023 Glucose [Mass/Vol] 135 mg/dL 70-100 [facility] Comment on above: ADA recommended refe rence rangeRandom Glucose Reference Range is dependent on time and content of last meal. Glucose of more than 200 mg/dL in a nonstressed, ambulatory subject supports the diagnosis of Diabetes Mellitus. Hematocrit Auto (Bld) [Volum e fraction]Ordered By: Marito Powers on 07-21-2023 Hematocrit (Bld) [Volume fraction] 41.3 % 38.8-50.0 [facility] Hemoglobin [Mass/volume] in BloodOrdered By: Marito Powers on 07-21-2023 Hemoglobin (Bld) [Mass/Vol] 13.9 g/dL 13.0-17.0 [facility] INR in Platelet poor plasma by Coagulation assayOrdered By: Marito Powers on 07-21-2023 INR Coag (PPP) [Relative time] 1.1 {INR} [facility] Comment on above: INR Therapeutic Rang e A) Pre- and Peroperative OAT started two weeks before surgery. NOT HIP SURGERY: 1.5 - 2.5 HIP SURGERY: 2 - 3B) Primary and secondary prevention of venous THROMBOSIS: 2 - 3C) Active venous thrombosis, pulmonary embolismand prevention of recurrent venous thrombosis: 2 - 3D) Prevention of arterial thromboembolismincluding patients with mechanical heart valves: 3 - 4.5 Leukocytes [#/volume] correc drake for nucleated erythrocytes in Blood by Automated counOrdered By: Marito Powers on 07-21-2023 WBC corrected for nucl RBC Auto (Bld) [#/Vol] 8.2 10*3/uL 4.1-10.5 [facility] Lymphocytes Auto (Bld) [#/Vo l]Ordered By: Marito Powers on 07-21-2023 Lymphocytes (Bld) [#/Vol] 0.9 10*3/uL 1.00-4.8 [facility] Lymphocytes/100 WBC Auto (Bl d)Ordered By: Marito Powers on 07-21-2023 Lymphocytes/100 WBC (Bld) 11.1 % . [facility] MCH Auto (RBC) [Entitic mass ]Ordered By: Marito Powers on 07-21-2023 MCH (RBC) [Entitic mass] 33.2 pg 27.5-35.2 [facility] MCHC Auto (RBC) [Mass/Vol]Or dered By: Marito Powers on 07-21-2023 MCHC (RBC) [Mass/Vol] 33.6 g/dL 32.5-35.6 [facility] MCV Auto (RBC) [Entitic vol] Ordered By: Marito Powers on 07-21-2023 MCV (RBC) [Entitic vol] 98.9 fL 83.5-101 [facility] Magnesium [Mass/volume] in S raiza or PlasmaOrdered By: Marito Powers on 07-21-2023 Magnesium [Mass/Vol] 2.5 mg/dL 1.9-2.7 [facility] Monocyte distribution width [Entitic volume] in Blood by AutomatedOrdered By: Marito Powers on 07-21-2023 Monocyte distribution width Auto (Bld) [Entitic vol] 17.62 % 0.00-20.00 [facility] Monocytes Auto (Bld) [#/Vol] Ordered By: Marito Powers on 07-21-2023 Monocytes (Bld) [#/Vol] 0.9 10*3/uL 0.0-0.8 [facility] Monocytes/100 WBC Auto (Bld) Ordered By: Marito Powers on 07-21-2023 Monocytes/100 WBC (Bld) 10.6 % . [facility] Natriuretic peptide B [Mass/ Vol]Ordered By: Marito Powers on 07-21-2023 Natriuretic peptide B (Bld) [Mass/Vol] 66.0 pg/mL 5-100 [facility] Neutrophils Auto (Bld) [#/Vo l]Ordered By: Marito Powers on 07-21-2023 Neutrophils (Bld) [#/Vol] 6.2 10*3/uL 1.8-7.7 [facility] Neutrophils/100 WBC Auto (Bl d)Ordered By: Marito Powers on 07-21-2023 Neutrophils/100 WBC (Bld) 76.5 % . [facility] No Panel InformationOrdered By: Marito Powers on 07-21-2023 Estimated GFR (CKD-EPI) 38.545 mL/Min [facility] Creatinine Clearance (Chem 36.36 [facility] Nucleated erythrocytes [Pres ence] in Blood by Automated countOrdered By: Marito Powers on 07-21-2023 Nucleated RBC Auto Ql (Bld) 0.1 /100{WBC} 0-0.5 [facility] Platelet mean volume Auto (B ld) [Entitic vol]Ordered By: Marito Powers on 07-21-2023 Platelet mean volume (Bld) [Entitic vol] 9.5 fL 6.6-10.1 [facility] Platelets Auto (Bld) [#/Vol] Ordered By: Marito Powers on 07-21-2023 Platelets (Bld) [#/Vol] 212 10*3/uL 150-450 [facility] Potassium [Moles/volume] in Serum or PlasmaOrdered By: Marito Powers on 07-21-2023 Potassium [Moles/Vol] 3.9 mmol/L 3.5-5.1 [facility] Protein [Mass/volume] in Ser um or PlasmaOrdered By: Marito Powers on 07-21-2023 Protein [Mass/Vol] 6.9 g/dL 6.4-8.9 [facility] Prothrombin time (PT)Ordered By: Marito Powers on 07-21-2023 PT Coag (PPP) [Time] 12.5 s 9.0-12.9 [facility] Comment on above: A hematocrit value g reater than 55% may lead to inaccurate results in coagulation testing. Patients having hematocrit values >55% require a special collection tube for coagulation studies. Please contact the laboratory at [phone] for redraw instructions. RBC Auto (Bld) [#/Vol]Ordere d By: Marito Powers on 07-21-2023 RBC (Bld) [#/Vol] 4.17 10*6/uL 3.90-5.60 [facility] Serum or plasma albumin/glob ulin mass ratioOrdered By: Marito Powers on 07-21-2023 Albumin/Globulin [Mass ratio] 1.5 {ratio} [facility] Serum or plasma anion gap de terminationOrdered By: Marito Powers on 07-21-2023 Anion gap [Moles/Vol] 11.9 mmol/L 6.0-15.0 [facility] Sodium [Moles/volume] in Ser um or PlasmaOrdered By: Marito Powers on 07-21-2023 Sodium [Moles/Vol] 136 mmol/L 136-145 [facility] Troponin I.cardiac [Mass/vol ume] in Serum or Plasma by Detection limit <= 0.01 ng/Ordered By: Marito Powers on 07-21-2023 Troponin I.cardiac DL <= 0.01 ng/mL [Mass/Vol] 9.1 pg/mL 0.0-20.0 [facility] Urea nitrogen [Mass/volume] in Serum or PlasmaOrdered By: Marito Powers on 07-21-2023 Urea nitrogen [Mass/Vol] 29 mg/dL 7-25 [facility] WBC Auto (Bld) [#/Vol]Ordere d By: Marito Powers on 07-21-2023 WBC (Bld) [#/Vol] 8.2 10*3/uL 4.1-10.5 [facility] Prostate Specific Ag Free [M ass/volume] in Serum or PlasmaOrdered By: Jyoti Chu on 05-21-2023 Free PSA [Mass/Vol] 0.320 ng/mL [facility] Prostate specific Ag [Mass/v olume] in Serum or PlasmaOrdered By: Jyoti Chu on 05-21-2023 Prostate specific Ag [Mass/Vol] 1.290 ng/mL 0.000-4.00 0 [facility] Serum or plasma free prostat e specific antigen (PSA)/total PSA ratioOrdered By: Jyoti Chu on 05-21-2023 Free PSA/Total PSA [Mass fraction] 24.8 % [facility] Comment on above: Based on the work of Edgar et al.KALPESH. 279(19):1542:47.1998 the percent free PSA may be used to determine the relative risk of prostate cancer in individual men.The percent probability of prostate cancer by patient age for men with non-suspicious GURINDER results and total PSa between 4 and 10 ng/ml is as follows:% Free PSA 50 - 64 yrs. 65 - 75 yrs. 0 - 10 56% 55% 10 - 15 24% 35% 15 - 20 17% 23% 20 - 25 10% 20% >25 5% 9% Aspartate aminotransferase [ Enzymatic activity/volume] in Serum or PlasmaOrdered By: Ranjan Quiles on 05-11-2023 AST [Catalytic activity/Vol] 35 U/L 13-39 [facility] Calcium [Mass/volume] in Ser um or PlasmaOrdered By: Ranjan Quiles on 05-11-2023 Calcium [Mass/Vol] 9.1 mg/dL 8.6-10.3 [facility] Carbon dioxide, total [Moles /volume] in Serum or PlasmaOrdered By: Ranjan Quiles on 05-11-2023 CO2 [Moles/Vol] 28.8 mmol/L 21.0-31.0 [facility] Chloride [Moles/volume] in S raiza or PlasmaOrdered By: Ranjan Quiles on 05-11-2023 Chloride [Moles/Vol] 101 mmol/L 98-107 [facility] Creatinine [Mass/volume] in Serum or PlasmaOrdered By: Ranjan Quiles on 05-11-2023 Creatinine [Mass/Vol] 1.67 mg/dL 0.70-1.30 [facility] Glucose [Mass/volume] in Ser um or PlasmaOrdered By: Ranjan Quiles on 05-11-2023 Glucose [Mass/Vol] 107 mg/dL 70-100 [facility] Comment on above: ADA recommended refe rence rangeRandom Glucose Reference Range is dependent on time and content of last meal. Glucose of more than 200 mg/dL in a nonstressed, ambulatory subject supports the diagnosis of Diabetes Mellitus. No Panel InformationOrdered By: Ranjan Quiles on 05-11-2023 Estimated GFR (CKD-EPI) 41.893 mL/Min [facility] Creatinine Clearance (Chem N/A [facility] Potassium [Moles/volume] in Serum or PlasmaOrdered By: Ranjan Quiles on 05-11-2023 Potassium [Moles/Vol] 4.0 mmol/L 3.5-5.1 [facility] Serum or plasma anion gap de terminationOrdered By: Ranjan Quiles 05-11-2023 Anion gap [Moles/Vol] 12.2 mmol/L 6.0-15.0 [facility] Sodium [Moles/volume] in Ser um or PlasmaOrdered By: Ranjan Quiles on 05-11-2023 Sodium [Moles/Vol] 138 mmol/L 136-145 [facility] Thyrotropin [Units/volume] i n Serum or PlasmaOrdered By: Ranjan Quiles on 05-11-2023 TSH Qn 1.79 m[IU]/L 0.45-5.33 [facility] Urea nitrogen [Mass/volume] in Serum or PlasmaOrdered By: Ranjan Quiles on 05-11-2023 Urea nitrogen [Mass/Vol] 28 mg/dL 7-25 [facility] Activated partial thrombopla stin time (aPTT) in platelet poor plasma by coagulation aOrdered By: Parful Yi on 04-01-2023 aPTT Coag (PPP) [Time] 26.6 s 25.1-36.5 [facility] Alanine aminotransferase [En zymatic activity/volume] in Serum or PlasmaOrdered By: Praful Yi on 04-01-2023 ALT [Catalytic activity/Vol] 19 U/L 7-52 [facility] Albumin [Mass/volume] in Ser um or Plasma by Bromocresol green (BCG) dye binding methoOrdered By: Praful Yi on 04-01-2023 Albumin BCG dye [Mass/Vol] 4.2 g/dL 3.5-5.7 [facility] Alkaline phosphatase [Enzyma tic activity/volume] in Serum or PlasmaOrdered By: Praful Yi on 04-01-2023 ALP [Catalytic activity/Vol] 50 U/L 34-104 [facility] Aspartate aminotransferase [ Enzymatic activity/volume] in Serum or PlasmaOrdered By: Praful Yi on 04-01-2023 AST [Catalytic activity/Vol] 19 U/L 13-39 [facility] Basophils Auto (Bld) [#/Vol] Ordered By: Praful Yi on 04-01-2023 Basophils (Bld) [#/Vol] 0.1 10*3/uL 0.0-0.2 [facility] Basophils/100 WBC Auto (Bld) Ordered By: Praful Yi on 04-01-2023 Basophils/100 WBC (Bld) 0.7 % . [facility] Bilirubin.direct [Mass/volum e] in Serum or PlasmaOrdered By: Praful Yi on 04-01-2023 Bilirubin.direct [Mass/Vol] 0.20 mg/dL 0.03-0.18 [facility] Bilirubin.total [Mass/volume ] in Serum or PlasmaOrdered By: Praful Yi on 04-01-2023 Bilirubin [Mass/Vol] 1.0 mg/dL 0.3-1.0 [facility] Calcium [Mass/volume] in Ser um or PlasmaOrdered By: Praful Yi on 04-01-2023 Calcium [Mass/Vol] 9.2 mg/dL 8.6-10.3 [facility] Carbon dioxide, total [Moles /volume] in Serum or PlasmaOrdered By: Praful Yi on 04-01-2023 CO2 [Moles/Vol] 28.0 mmol/L 21.0-31.0 [facility] Chloride [Moles/volume] in S raiza or PlasmaOrdered By: Praful Yi on 04-01-2023 Chloride [Moles/Vol] 102 mmol/L 98-107 [facility] Creatine kinase [Enzymatic a ctivity/volume] in Serum or PlasmaOrdered By: Praful Yi on 04-01-2023 CK [Catalytic activity/Vol] 44 U/L 30-223 [facility] Creatinine [Mass/volume] in Serum or PlasmaOrdered By: Praful Yi on 04-01-2023 Creatinine [Mass/Vol] 1.44 mg/dL 0.70-1.30 [facility] Eosinophils Auto (Bld) [#/Vo l]Ordered By: Praful Yi on 04-01-2023 Eosinophils (Bld) [#/Vol] 0.3 10*3/uL 0.0-0.45 [facility] Eosinophils/100 WBC Auto (Bl d)Ordered By: Praful Yi on 04-01-2023 Eosinophils/100 WBC (Bld) 4.2 % . [facility] Erythrocyte distribution wid th Auto (RBC) [Ratio]Ordered By: Praful Yi on 04-01-2023 Erythrocyte distribution width (RBC) [Ratio] 14.0 % 12.0-14.8 [facility] Globulin Calc (S) [Mass/Vol] Ordered By: Praful Yi on 04-01-2023 Globulin (S) [Mass/Vol] 3.1 g/dL [facility] Glucose [Mass/volume] in Ser um or PlasmaOrdered By: Praful Yi on 04-01-2023 Glucose [Mass/Vol] 105 mg/dL 70-100 [facility] Comment on above: ADA recommended refe rence rangeRandom Glucose Reference Range is dependent on time and content of last meal. Glucose of more than 200 mg/dL in a nonstressed, ambulatory subject supports the diagnosis of Diabetes Mellitus. Hematocrit Auto (Bld) [Volum e fraction]Ordered By: Praful Yi on 04-01-2023 Hematocrit (Bld) [Volume fraction] 40.7 % 38.8-50.0 [facility] Hemoglobin [Mass/volume] in BloodOrdered By: Praful Yi on 04-01-2023 Hemoglobin (Bld) [Mass/Vol] 13.8 g/dL 13.0-17.0 [facility] INR in Platelet poor plasma by Coagulation assayOrdered By: Praful Yi on 04-01-2023 INR Coag (PPP) [Relative time] 1.1 {INR} [facility] Comment on above: INR Therapeutic Rang e A) Pre- and Peroperative OAT started two weeks before surgery. NOT HIP SURGERY: 1.5 - 2.5 HIP SURGERY: 2 - 3B) Primary and secondary prevention of venous THROMBOSIS: 2 - 3C) Active venous thrombosis, pulmonary embolismand prevention of recurrent venous thrombosis: 2 - 3D) Prevention of arterial thromboembolismincluding patients with mechanical heart valves: 3 - 4.5 Laboratory - CoagulationOrde red By: Praful Yi on 04-01-2023 PT Coag (PPP) [Time] 12.6 s 9.0-12.9 [facility] Leukocytes [#/volume] correc drake for nucleated erythrocytes in Blood by Automated counOrdered By: Praful Yi on 04-01-2023 WBC corrected for nucl RBC Auto (Bld) [#/Vol] 7.6 10*3/uL 4.1-10.5 [facility] Lymphocytes Auto (Bld) [#/Vo l]Ordered By: Praful Yi on 04-01-2023 Lymphocytes (Bld) [#/Vol] 0.7 10*3/uL 1.00-4.8 [facility] Lymphocytes/100 WBC Auto (Bl d)Ordered By: Praful Yi on 04-01-2023 Lymphocytes/100 WBC (Bld) 9.7 % . [facility] MCH Auto (RBC) [Entitic mass ]Ordered By: Praful Yi on 04-01-2023 MCH (RBC) [Entitic mass] 32.7 pg 27.5-35.2 [facility] MCHC Auto (RBC) [Mass/Vol]Or dered By: Praful Yi on 04-01-2023 MCHC (RBC) [Mass/Vol] 33.9 g/dL 32.5-35.6 [facility] MCV Auto (RBC) [Entitic vol] Ordered By: Praful Yi on 04-01-2023 MCV (RBC) [Entitic vol] 96.5 fL 83.5-101 [facility] Monocyte distribution width [Entitic volume] in Blood by AutomatedOrdered By: Praful Yi on 04-01-2023 Monocyte distribution width Auto (Bld) [Entitic vol] 17.21 % 0.00-20.00 [facility] Monocytes Auto (Bld) [#/Vol] Ordered By: Praful Yi on 04-01-2023 Monocytes (Bld) [#/Vol] 1.0 10*3/uL 0.0-0.8 [facility] Monocytes/100 WBC Auto (Bld) Ordered By: Praful Yi on 04-01-2023 Monocytes/100 WBC (Bld) 12.7 % . [facility] Natriuretic peptide B [Mass/ Vol]Ordered By: Praful Yi on 04-01-2023 Natriuretic peptide B (Bld) [Mass/Vol] 124.0 pg/mL 5-100 [facility] Neutrophils Auto (Bld) [#/Vo l]Ordered By: Praful Yi on 04-01-2023 Neutrophils (Bld) [#/Vol] 5.5 10*3/uL 1.8-7.7 [facility] Neutrophils/100 WBC Auto (Bl d)Ordered By: Praful Yi on 04-01-2023 Neutrophils/100 WBC (Bld) 72.7 % . [facility] No Panel InformationOrdered By: Praful Yi on 04-01-2023 Estimated GFR (CKD-EPI) 50.046 mL/Min [facility] Creatinine Clearance (Chem 46.74 [facility] Nucleated erythrocytes [Pres ence] in Blood by Automated countOrdered By: Praful Yi on 04-01-2023 Nucleated RBC Auto Ql (Bld) 0.0 /100{WBC} 0-0.5 [facility] Office Visit (Cardiology)on 04-01-2023 Follow-up visit Diagnoses/Problems Assessed Ventricular tachycardia (427.1) (I47.20) Chronic systolic CHF (congestive heart failure) (428.22,428.0) (I50.22) Atrial fibrillation (427.31) (I48.91) Ischemic cardiomyopathy (414.8) (I25.5) Atherosclerosis of [place] coronary artery of [place] heart without angina pectoris (414.01) (I25.10) Stage 3 chronic kidney disease (585.3) (N18.30) High risk medication use (V58.69) (Z79.899) Hyperlipidemia (272.4) (E78.5) Class 1 obesity with body mass index (BMI) of 33.0 to 33.9 in adult (278.00,V85.33) (E66.9,Z68.33) Biventricular ICD (implantable cardioverter-defibrillator ) in place (V45.02) (Z95.810) Former smoker (V15.82) (Z87.891) quit 1974 S/P PTCA (percutaneous transluminal coronary angioplasty) (V45.82) (Z98.61) Left main March 2023 Encounter for medication counseling (V65.49) (Z71.89) Encounter to discuss treatment options (V65.49) (Z71.89) History of MN (myocardial infarction) (412) (I25.2) LAD 1994 Orders Atrial fibrillation Start: Amiodarone HCl - 200 MG Oral Tablet; TAKE 1 TABLET DAILY Start: Magnesium Oxide 400 MG Oral Tablet; Take one tablet daily with food Atrial fibrillation, Ventricular tachycardia Start: Mexiletine HCl - 150 MG Oral Capsule; TAKE 1 CAPSULE BY MOUTH THREE TIMES DAILY Chronic systolic CHF (congestive heart failure) Renew: Spironolactone 25 MG Oral Tablet; TAKE 1 TABLET DAILY Chronic systolic CHF (congestive heart failure), Essential hypertension Renew: Carvedilol 25 MG Oral Tablet (Coreg); TAKE 1 TABLET Twice daily SocHx: Former smoker Tobacco Use Screening; Status:Complete; Done: [id number] Unlinked Stop: Amiodarone HCl - 100 MG Oral Tablet Patient Instructions Please bring all medicines, vitamins, and herbal supplements with you when you come to the office. Prescriptions will not be filled unless you are compliant with your follow up appointments or have a follow up appointment scheduled as per instruction of your physician. Refills should be requested at the time of your visit. Amiodarone 200mg daily Magnesium Mexiiletine 150 mg 3 times daily Blood Pressure Follow Up In 2 months Follow up in 6 months Chief Complaint SHAWNA HERNANDES is being seen for a 3 month follow-up of. Patient is in the office for follow-up after recent admission to the hospital with sustained ventricular tachycardia. 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 Archer. He had his defibrillator upgraded to biventricular device last year. The patient was seen few days ago by electrophysiology. His medical therapy was left unchanged including amiodarone. The patient was scheduled to see me this morning and he was called from the device clinic that his device has been firing with sustained monomorphic ventricular tachycardia. The episodes have been aborted by overdrive pacing. No shocks were delivered. The patient came with his and was stable when I saw him in the office and had no complaints. He was not aware of the arrhythmias. His examination reveals only class I obesity and his EKG revealed biventricular paced rhythm sensing sinus rhythm. His blood pressure was acceptable and his cardiac and pulmonary examinations were normal he had no evidence of volume overload. He is on dual antiplatelet therapy and had no bleeding complications ASSESSMENT AND PLAN: 1. Ischemic cardiomyopathy stage C, functional class II. Ejection fraction 35% based on the cardiac catheterization March 2023, he is on the lowest dose of Entresto along with beta-toi and spironolactone. Due to soft blood pressure we will not change his current regimen but he will come back to see me in 2 months for attempted up titration of Entresto if possible 2. Status post biventricular AICD followed by electrophysiology 3. Hyperlipidemia, on statin therapy. 4. Status post recent PCI of mid-distal left main for high-grade stenosis on dual antiplatelet therapy 5. 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 This is while the patient is on amiodarone. We will add mexiletine 150 mg 3 times daily. We will increase amiodarone up to 200 mg daily. 6. Remote history of atrial fibrillation currently on amiodarone therapy. The load of atrial fibrillation is low. He is currently not anticoagulated 7. Class I obesity. Encouraged the patient to drop his weight further with diet and exercise. He gained 13 pounds since last visit 8. Stage III chronic kidney disease being monitored 9. High-risk medication antiarrhythmic therapy and dual antiplatelet therapy. We will follow amiodarone testing periodically Ranjan Quiles MD, [facility] Surgical History Problems History of Angioplasty History of Cardioverter defibrillator insertion History of Colonoscopy 03Aug2012 History of Eye surgery History of Iliac artery stent placement History of Prostate surgery Histo (more content not included)... Normal [employer]works Platelet mean volume Auto (B ld) [Entitic vol]Ordered By: Praful Yi on 04-01-2023 Platelet mean volume (Bld) [Entitic vol] 8.9 fL 6.6-10.1 [facility] Platelets Auto (Bld) [#/Vol] Ordered By: Praful Yi on 04-01-2023 Platelets (Bld) [#/Vol] 227 10*3/uL 150-450 [facility] Potassium [Moles/volume] in Serum or PlasmaOrdered By: Praful Yi on 04-01-2023 Potassium [Moles/Vol] 3.9 mmol/L 3.5-5.1 [facility] Protein [Mass/volume] in Ser um or PlasmaOrdered By: Praful Yi on 04-01-2023 Protein [Mass/Vol] 7.3 g/dL 6.4-8.9 [facility] RBC Auto (Bld) [#/Vol]Ordere d By: Praful Yi on 04-01-2023 RBC (Bld) [#/Vol] 4.22 10*6/uL 3.90-5.60 [facility] Serum or plasma albumin/glob ulin mass ratioOrdered By: Praful Yi on 04-01-2023 Albumin/Globulin [Mass ratio] 1.4 {ratio} [facility] Serum or plasma anion gap de terminationOrdered By: Praful Yi on 04-01-2023 Anion gap [Moles/Vol] 11.9 mmol/L 6.0-15.0 [facility] Serum or plasma non-glucuron idated bilirubin measurement (mass/volume)Ordered By: Praful Yi on 04-01-2023 Bilirubin.indirect [Mass/Vol] 0.8 mg/dL [facility] Sodium [Moles/volume] in Ser um or PlasmaOrdered By: Praful Yi on 04-01-2023 Sodium [Moles/Vol] 138 mmol/L 136-145 [facility] Troponin I.cardiac [Mass/vol ume] in Serum or Plasma by Detection limit <= 0.01 ng/Ordered By: Praful Yi on 04-01-2023 Troponin I.cardiac DL <= 0.01 ng/mL [Mass/Vol] 20.3 pg/mL 0.0-20.0 [facility] Urea nitrogen [Mass/volume] in Serum or PlasmaOrdered By: Praful Yi on 04-01-2023 Urea nitrogen [Mass/Vol] 21 mg/dL 02-24 [facility] WBC Auto (Bld) [#/Vol]Ordere d By: Praful Yi on 04-01-2023 WBC (Bld) [#/Vol] 7.6 10*3/uL 4.1-10.5 [facility] CHEST 2 VIEW PA AND LATon CHEST 2 VIEW PA AND LAT Patient Name: SHAWNA HERNANDES STUDY: TH CHEST 2 VIEW PA AND LAT; 03/27/2023 9:25 am INDICATION: device implant 12-17-22 Z95.810: ICD (implantable cardioverter-defibrillator ) in place. COMPARISON: 12/17/2022 ACCESSION NUMBER(S): [id number] ORDERING CLINICIAN: ROSE DING FINDINGS: There is no pneumothorax. The lungs are clear. Right-sided pacemaker in place. Leads on the left as well with the removal of prior generator. The cardiac silhouette is within normal limits for size. There is no edema. There is no consolidation. There is no effusion. IMPRESSION: Interval placement of a right-sided pacemaker with removal of generator from the left chest wall. No pneumothorax seen. Electronically signed by: MARIANA FERGUSON MD [facility] Office Visit (Cardiology)on 03-27-2023 Follow-up visit Diagnoses/Problems Assessed Ventricular tachycardia (427.1) (I47.20) ICD (implantable cardioverter-defibrillator ) in place (V45.02) (Z95.810) Chronic systolic CHF (congestive heart failure) (428.22,428.0) (I50.22) LBBB (left bundle branch block) (426.3) (I44.7) Hyperlipidemia (272.4) (E78.5) Atrial fibrillation (427.31) (I48.91) Ischemic cardiomyopathy (414.8) (I25.5) Former smoker (V15.82) (Z87.891) quit 1974 Class 1 obesity with body mass index (BMI) of 32.0 to 32.9 in adult (278.00,V85.32) (E66.9,Z68.32) Encounter to discuss treatment options (V65.49) (Z71.89) Encounter to discuss test results (V65.49) (Z71.2) Encounter for medication counseling (V65.49) (Z71.89) High risk medication use (V58.69) (Z79.899) Biventricular ICD (implantable cardioverter-defibrillator ) in place (V45.02) (Z95.810) Orders Atrial fibrillation, High risk medication use Renew: Amiodarone HCl - 200 MG Oral Tablet; TAKE 1 TAB DAILY Chronic systolic CHF (congestive heart failure) Renew: Nitroglycerin 0.4 MG Sublingual Tablet Sublingual; PLACE 1 TABLET UNDER THE TONGUE EVERY 5 MINUTES FOR UP TO 3 DOSES NEEDED FOR CHEST PAIN.CALL 911 IF PAIN PERSISTS Class 1 obesity with body mass index (BMI) of 32.0 to 32.9 in adult Losing just 5 to 10 pounds may lower your risk of health problems.; Status:Complete - Retrospective Authorization; Done: [id number] ICD (implantable cardioverter-defibrillator ) in place Interr. Device Eval - Sngl/Dual/Multiple Cardio-Defib; Status:Hold For - Scheduling,Retrospective Authorization; Requested for:[id number]; SocHx: Former smoker Tobacco Use Screening; Status:Complete; Done: 27Mar2023 Ventricular tachycardia IO EKG Electrocardiogram- 12 Lead; Status:Active - Perform Order,Retrospective Authorization; Requested for:[id number]; IO EKG Electrocardiogram- 12 Lead; Status:Active - Perform Order,Retrospective Authorization; Requested for:[id number]; Patient Instructions Elena Florentino LPN, am scribing for and in the presence of Dr. Ding Follow up in 1 year [facility] device check in 6 months, 3 and 9 months remote Amiodarone increased to 200mg once a day Patient educted on proper medication use. Patient educated on risk factor modification. Please bring any lab or test results from other providers/ physician to your next appointment. Please bring all prescription medicines, vitamins, and herbal supplements, and over the counter medicines you use with you every time you come to this office for an appointment. Prescriptions will not be filled unless you are compliant with your follow up appointments or have a follow up appointment scheduled as per instruction of your physician. Refills should be requested at the time of your visit. Chief Complaint Patient presented today for a 6 month follow up. Adult Risk Screening Tobacco Screening: SHAWNA does not use tobacco. History of Present Illness He is here for electrophysiology follow-up. The patient and present to review his device. He denies any arrhythmia symptoms. He feels much better after stent placement. The patient denies any lightheadedness, near syncope, syncope, palpitation, chest discomfort, orthopnea, paroxysmal nocturnal dyspnea, or edema now. His activity tolerance has increased. The device site continues to be well-healed and unchanged. The patient denies any redness, swelling, or drainage of the site. See ROS, PMH, FMH, and surgical history for details. Personal review of ECG and cardiac data reviewed Outside records: Cardiac catheterization March [address] Archer for left main and proximal LAD stenting. OV with Dr. Quiles December 2022 [facility] hospitalization November 2022. Acute decompensated heart failure Echocardiogram November 2022. LVEF 15 to 20%. Severe dilation of left atrium. Mild to moderate mitral vegetation. Mild TR. Pulmonary hypertension with RVSP 5060 mmHg. Device Check: Today.. [employer] 8 G247 BiV ICD. Recurrent VT VF requiring ATP and or shock. 10 NSVT. 90% atrial pacing. 97% biventricular pacing. Estimate longevity device 11 years. ECG: Today. Appropriate sensing and biventricular pacing. Normal axis. Corrected QT interval 500. Chest x-ray pending See signed ECG and check /Paceart. Imp / Plan Nonischemic cardiomyopathy. LVEF 15 to 20%. QRS 150 ms of left bundle branch block at baseline and 230 ms with ventricular pacing. Repeat hospitalizations for acute on chronic heart failure. Most recent hospitalization earlier this month. NYHA IIIc heart failure. Status post upgrade of defibrillator to biventricular defibrillator. Current device is [employer] G24 7 biventricular defibrillator. Reviewed device check in detail. Discussed with patient and family. Normal device function. Ordered device checks. Discontinue arm binder Chronic systolic heart failure. NYHA IIIc heart failure. Reviewed medications. Continue medications. CAD. Chronic. Recent (more content not included)... Normal [facility] Radiologyon 03-27-2023 XR Chest 2 Views Please click on the link to view the study images Normal [facility] [address] DO Work Phone: Tobacco Screening.on 023 Adult depression screening assessment No [facility] [facility] DO Work Phone: Tobacco use status CPHS b) No [facility] [facility] DO Work Phone: Basophils Auto (Bld) [#/Vol] Ordered By: Bro Henry on 03-13-2023 Basophils (Bld) [#/Vol] 0.0 10*3/uL 0.0-0.2 [facility] Basophils/100 WBC Auto (Bld) Ordered By: Bro Henry on 03-13-2023 Basophils/100 WBC (Bld) 0.5 % . [facility] Calcium [Mass/volume] in Ser um or PlasmaOrdered By: Bro Henry on 03-13-2023 Calcium [Mass/Vol] 8.0 mg/dL 8.6-10.3 [facility] Carbon dioxide, total [Moles /volume] in Serum or PlasmaOrdered By: Bro Henry on 03-13-2023 CO2 [Moles/Vol] 22.8 mmol/L 21.0-31.0 [facility] Chloride [Moles/volume] in S raiza or PlasmaOrdered By: Bro Henry on 03-13-2023 Chloride [Moles/Vol] 111 mmol/L 98-107 [facility] Creatinine [Mass/volume] in Serum or PlasmaOrdered By: Bro Henry on 03-13-2023 Creatinine [Mass/Vol] 1.40 mg/dL 0.70-1.30 [facility] Eosinophils Auto (Bld) [#/Vo l]Ordered By: Bro Henry on 03-13-2023 Eosinophils (Bld) [#/Vol] 0.3 10*3/uL 0.0-0.45 [facility] Eosinophils/100 WBC Auto (Bl d)Ordered By: Bro Henry on 03-13-2023 Eosinophils/100 WBC (Bld) 3.5 % . [facility] Erythrocyte distribution wid th Auto (RBC) [Ratio]Ordered By: Bro Henry on 03-13-2023 Erythrocyte distribution width (RBC) [Ratio] 14.1 % 12.0-14.8 [facility] Glucose [Mass/volume] in Ser um or PlasmaOrdered By: Bro Henry on 03-13-2023 Glucose [Mass/Vol] 89 mg/dL 70-100 [facility] Comment on above: ADA recommended refe rence rangeRandom Glucose Reference Range is dependent on time and content of last meal. Glucose of more than 200 mg/dL in a nonstressed, ambulatory subject supports the diagnosis of Diabetes Mellitus. Hematocrit Auto (Bld) [Volum e fraction]Ordered By: Bro Henry on 03-13-2023 Hematocrit (Bld) [Volume fraction] 35.7 % 38.8-50.0 [facility] Hemoglobin [Mass/volume] in BloodOrdered By: Bro Henry on 03-13-2023 Hemoglobin (Bld) [Mass/Vol] 12.1 g/dL 13.0-17.0 [facility] Leukocytes [#/volume] correc drake for nucleated erythrocytes in Blood by Automated counOrdered By: Bro Henry on 03-13-2023 WBC corrected for nucl RBC Auto (Bld) [#/Vol] 9.0 10*3/uL 4.1-10.5 [facility] Lymphocytes Auto (Bld) [#/Vo l]Ordered By: Bro Henry on 03-13-2023 Lymphocytes (Bld) [#/Vol] 0.8 10*3/uL 1.00-4.8 [facility] Lymphocytes/100 WBC Auto (Bl d)Ordered By: Bro Henry on 03-13-2023 Lymphocytes/100 WBC (Bld) 8.9 % . [facility] MCH Auto (RBC) [Entitic mass ]Ordered By: Bro Henry on 03-13-2023 MCH (RBC) [Entitic mass] 32.9 pg 27.5-35.2 [facility] MCHC Auto (RBC) [Mass/Vol]Or dered By: Bro Henry on 03-13-2023 MCHC (RBC) [Mass/Vol] 33.9 g/dL 32.5-35.6 [facility] MCV Auto (RBC) [Entitic vol] Ordered By: Bro Henry on 03-13-2023 MCV (RBC) [Entitic vol] 97.2 fL 83.5-101 [facility] Monocytes Auto (Bld) [#/Vol] Ordered By: Bro Henry on 03-13-2023 Monocytes (Bld) [#/Vol] 1.1 10*3/uL 0.0-0.8 [facility] Monocytes/100 WBC Auto (Bld) Ordered By: Bro Henry on 03-13-2023 Monocytes/100 WBC (Bld) 11.8 % . [facility] Neutrophils Auto (Bld) [#/Vo l]Ordered By: Bro Henry on 03-13-2023 Neutrophils (Bld) [#/Vol] 6.8 10*3/uL 1.8-7.7 [facility] Neutrophils/100 WBC Auto (Bl d)Ordered By: Bro Henry on 03-13-2023 Neutrophils/100 WBC (Bld) 75.3 % . [facility] No Panel InformationOrdered By: Bro Henry on 03-13-2023 Estimated GFR (CKD-EPI) 51.766 mL/Min [facility]acy Creatinine Clearance (Chem 47.85 [facility] Nucleated erythrocytes [Pres ence] in Blood by Automated countOrdered By: Bro Henry on 03-13-2023 Nucleated RBC Auto Ql (Bld) 0.0 /100{WBC} 0-0.5 [facility] Platelet mean volume Auto (B ld) [Entitic vol]Ordered By: Bro Henry on 03-13-2023 Platelet mean volume (Bld) [Entitic vol] 9.9 fL 6.6-10.1 [facility] Platelets Auto (Bld) [#/Vol] Ordered By: Bro Henry on 03-13-2023 Platelets (Bld) [#/Vol] 137 10*3/uL 150-450 [facility] Potassium [Moles/volume] in Serum or PlasmaOrdered By: Bro Henry on 03-13-2023 Potassium [Moles/Vol] 4.1 mmol/L 3.5-5.1 [facility] RBC Auto (Bld) [#/Vol]Ordere d By: Bro Henry on 03-13-2023 RBC (Bld) [#/Vol] 3.67 10*6/uL 3.90-5.60 [facility] Serum or plasma anion gap de terminationOrdered By: Bro Henry on 03-13-2023 Anion gap [Moles/Vol] 3.3 mmol/L 6.0-15.0 [facility] Sodium [Moles/volume] in Ser um or PlasmaOrdered By: Bro Henry on 03-13-2023 Sodium [Moles/Vol] 133 mmol/L 136-145 [facility] Troponin I.cardiac [Mass/vol ume] in Serum or Plasma by Detection limit <= 0.01 ng/Ordered By: Naga Archer on 03-13-2023 Troponin I.cardiac DL <= 0.01 ng/mL [Mass/Vol] 470.0 pg/mL 0.0-20.0 [facility] Comment on above: Critical Result : Ca lled to and read back by: AYESHA KAPLAN at: 03/13/2023 05:23:17 by:[id number] Urea nitrogen [Mass/volume] in Serum or PlasmaOrdered By: Bro Henry on 03-13-2023 Urea nitrogen [Mass/Vol] 23 mg/dL 7-25 [facility] WBC Auto (Bld) [#/Vol]Ordere d By: Bro Henry on 03-13-2023 WBC (Bld) [#/Vol] 9.0 10*3/uL 4.1-10.5 [facility] Activated partial thrombopla stin time (aPTT) in platelet poor plasma by coagulation aOrdered By: Pino Rand on 03-09-2023 aPTT Coag (PPP) [Time] 27.6 s 25.1-36.5 [facility] Bilirubin Test strip Ql (U)O rdered By: Pino Rand on 03-09-2023 Bilirubin Ql (U) Negative Negative [facility] Color Auto (U)Ordered By: Mo Rand on 03-09-2023 Color (U) Yellow Yellow [facility] Creatine kinase [Enzymatic a ctivity/volume] in Serum or PlasmaOrdered By: Pino Rand on 03-09-2023 CK [Catalytic activity/Vol] 44 U/L 30-223 [facility] Ketones Auto test strip (U) [Mass/Vol]Ordered By: Pino Rand on 03-09-2023 Ketones (U) [Mass/Vol] Negative Negative [facility] Laboratory - CoagulationOrde red By: Pino Rand on 03-09-2023 PT Coag (PPP) [Time] 12.1 s 9.0-12.9 [facility] Magnesium [Mass/volume] in S raiza or PlasmaOrdered By: Pino Rand on 03-09-2023 Magnesium [Mass/Vol] 2.4 mg/dL 1.9-2.7 [facility] Monocyte distribution width [Entitic volume] in Blood by AutomatedOrdered By: Pino Rand on 03-09-2023 Monocyte distribution width Auto (Bld) [Entitic vol] 18.22 % 0.00-20.00 [facility] Natriuretic peptide B [Mass/ Vol]Ordered By: Pino Rand on 03-09-2023 Natriuretic peptide B (Bld) [Mass/Vol] 1602.0 pg/mL 5-100 [facility] Nitrite Test strip Ql (U)Ord ered By: Pino Rand on 03-09-2023 Nitrite Ql (U) Negative Negative [facility] Platelet poor plasma interna tional normalized ratio (INR) by coagulation assay (relatOrdered By: Pino Rand on 03-09-2023 INR Coag (PPP) [Relative time] 1.0 {INR} [facility] Comment on above: INR Therapeutic Rang e A) Pre- and Peroperative OAT started two weeks before surgery. NOT HIP SURGERY: 1.5 - 2.5 HIP SURGERY: 2 - 3B) Primary and secondary prevention of venous THROMBOSIS: 2 - 3C) Active venous thrombosis, pulmonary embolismand prevention of recurrent venous thrombosis: 2 - 3D) Prevention of arterial thromboembolismincluding patients with mechanical heart valves: 3 - 4.5 Protein Auto test strip (U) [Mass/Vol]Ordered By: Pino Rand on 03-09-2023 Protein (U) [Mass/Vol] Negative Negative [facility] Specific gravity Auto test s trip (U) [Rel density]Ordered By: Pino Rand on 03-09-2023 Specific gravity (U) [Rel density] 1.016 1.001-1.03 0 [facility] Urine clarity by refractomet ry automatedOrdered By: Pino Rand on 03-09-2023 Clarity Refractometry automated (U) Clear Clear [facility] Urine glucose measurement by automated test strip (mass/volume)Ordered By: Pino Rand on 03-09-2023 Glucose Auto test strip (U) [Mass/Vol] >=1000 mg/dL Normal [facility] Urine hemoglobin detection b y automated test stripOrdered By: Pino Rand on 03-09-2023 Hemoglobin Auto test strip Ql (U) Negative Negative [facility] Urine leukocyte esterase det ection by automated test stripOrdered By: Pino Rand on 03-09-2023 Leukocyte esterase Auto test strip Ql (U) Negative Negative [facility] Urobilinogen Auto test strip (U) [Mass/Vol]Ordered By: Pino Rand on 03-09-2023 Urobilinogen (U) [Mass/Vol] Normal mg/dL Normal [facility] pH Auto test strip (U)Ordere d By: Pino Rand on 03-09-2023 pH (U) 5.5 [pH] 5.0-9.0 [facility] Electrocardiogram 12 Leadon 12-18-2022 Atrial Rate 59 BPM [facility] Work Phone: [phone] [place] Interval 204 ms [facility] Work Phone: [phone] Q Onset 208 ms [facility] Work Phone: [phone] QRS Count 10 beats [facility] Work Phone: [phone] QRS Duration 142 ms [facility] Work Phone: [phone] QT Interval 508 ms [facility] Work Phone: [phone] QTC Calculation(Bazett) 508 [facility] Work Phone: [phone] QTC Fredericia 508 [facility] Work Phone: [phone] R [place] -29 degrees [facility] Work Phone: [phone] T [place] 243 degrees [facility] Work Phone: [phone] T Offset 462 ms [facility] Work Phone: [phone] Ventricular Rate 60 BPM [facility] Work Phone: AV dual-paced rhythm Abnormal ECG When compared with ECG of 17-MAY-2023 06:57, Vent. rate has increased BY 10 BPM Confirmed by Christiano Armenta ([id number]) on 12/18/2022 11:12:04 PM MUSE Christiano Armenta M D - 12/18/2022 AV dual-paced rhythm Abnormal ECG When compared with ECG of 17-DEC-2022 06:57, Vent. rate has increased BY 10 BPM Confirmed by Christiano Armenta ([id number]) on 12/18/2022 11:12:04 PM [facility] Work Phone: [facility] Work Phone: Atrial-sensed ventricular-paced rhythm Abnormal ECG When compared with ECG of 25-FEB-2011 08:39, Electronic ventricular pacemaker has replaced Sinus rhythm Confirmed by Christiano Armenta ([id number]) on 12/18/2022 11:05:29 PM MUSE Christiano Armenta M D - 12/18/2022 Atrial-sensed ventricular-paced rhythm Abnormal ECG When compared with ECG of 25-FEB-2011 08:39, Electronic ventricular pacemaker has replaced Sinus rhythm Confirmed by Christiano Armenta ([id number]) on 12/18/2022 11:05:29 PM [facility] Work Phone: Electrocardiogram 12 LeadOrd ered By: Christiano Armenta on 12-18-2022 Atrial Rate 50 BPM [facility] Work Phone: [phone] P [place] 53 degrees [facility] Work Phone: [phone] P Offset 191 ms [facility] Work Phone: P Onset 135 ms [facility] Work Phone: [phone] [place] Interval 168 ms [facility] Work Phone: Q Onset 219 ms [facility] Work Phone: [phone] QRS Count 8 beats [facility] Work Phone: [phone] QRS Duration 146 ms [facility] Work Phone: [phone] QT Interval 538 ms [facility] Work Phone: [phone] QTC Calculation(Bazett) 490 ms [facility] Work Phone: [phone] QTC Fredericia 506 ms [facility] Work Phone: R [place] -42 degrees [facility] Work Phone: T [place] 97 degrees [facility] Work Phone: [phone] T Offset 488 ms [facility] Work Phone: [phone] Ventricular Rate 50 BPM [facility] Work Phone: [phone] [facility] Work Phone: [phone] Discharge [id number] Discharge Profile2 Discharge Orders: DNAR: Code Status at Discharge: Full Code Appointments: Follow-Up Appointment 01: [facility] Reason for ReferralIncision Check Scheduled Date/[id number] 13:45 [facility] Office Phone [phone] Follow-Up App[facility]ment [facility]: [facility] Registration Reason for ReferralDevice check and chest X-ray Scheduled Date/[id number] 07:00 [facility] Phone [phone] Follow-Up Appointment 03: Physician/Dept/ServiceDr Toña Reason for ReferralFollow-up Scheduled Date/[id number] 08:20 [facility] [address] Phone [phone] Electronic Signatures: Escobar Ureña (COOR) (Signed 17-Dec-2022 10:43) Authored: Discharge Orders, Appointments, Gold Form - [employer] Operator Summary Last Updated: 17-Dec-2022 10:43 by Escobar Ureña (COOR) Normal [facility] Electrocardiogram 12 Leadon 12-17-2022 Electrocardiogram 12 Lead Ventricular Rate 60 Atrial Rate 59 P-R Interval 204 QRS Duration 142 Q-T Interval 508 QTC Calculation(Bazett) 508 R [place] -29 T [place] 243 QRS Count 10 Q Onset 208 T Offset 462 QTC Fredericia 508 Diagnosis Class Abnormal Diagnosis AV dual-paced rhythm Abnormal ECG When compared with ECG of 17-DEC-2022 06:57, Vent. rate has increased BY 10 BPM Confirmed by Christiano Armenta ([id number]) on 12/18/2022 11:12:04 PM Normal [facility] Electrocardiogram 12 Lead Ventricular Rate 50 Atrial Rate 50 P-R Interval 168 QRS Duration 146 Q-T Interval 538 QTC Calculation(Bazett) 490 P [place] 53 R [place] -42 T [place] 97 QRS Count 8 Q Onset 219 P Onset 135 P Offset 191 T Offset 488 QTC Fredericia 506 Diagnosis Class Abnormal Diagnosis Atrial-sensed ventricular-paced rhythm Abnormal ECG When compared with ECG of 25-FEB-2011 08:39, Electronic ventricular pacemaker has replaced Sinus rhythm Confirmed by Christiano Armenta ([id number]) on 12/18/2022 11:05:29 PM Normal [facility] Order Reconciliationon 12-17 Order Reconciliation Page 1 Discharge Reconciliation Document Reconciliation Type: Discharge requested on behalf of Shania Mc (Advanced Practice Nurse) done by Shania Mc (LANCE CREWMEMBER-COMMUNITY OUTREACH DIRECTOR) Discharge - Reconciliation: 17-Dec-2022 13:37 by: Shania Mc (LANCE CREWMEMBER-COMMUNITY OUTREACH DIRECTOR) Home Medications EnteredHOME MEDICATIONS AT DISCHARGE DateReconciliation Comment/ Additional Information amiodarone 200 mg oral tablet 0.5 tab(s) orally once a day 16-Dec-2022 09:14 amiodarone 200 mg oral tablet 0.5 tab(s) orally once a day 16-Dec-2022 09:14 amiodarone 200 mg oral tablet is continued as amiodarone 200 mg oral tablet Aspirin Enteric Coated 81 mg oral delayed release tablet 1 tab(s) orally once a day 16-Dec-2022 09:14 Aspirin Enteric Coated 81 mg oral delayed release tablet 1 tab(s) orally once a day 16-Dec-2022 09:14 Aspirin Enteric Coated 81 mg oral delayed release tablet is continued as Aspirin Enteric Coated 81 mg oral delayed release tablet atorvastatin 80 mg oral tablet 1 tab(s) orally once a day 16-Dec-2022 09:15 atorvastatin 80 mg oral tablet 1 tab(s) orally once a day 16-Dec-2022 09:15 atorvastatin 80 mg oral tablet is continued as atorvastatin 80 mg oral tablet biotin 5000 mcg oral tablet, disintegrating 1 tab(s) orally once a day 16-Dec-2022 09:15 biotin 5000 mcg oral tablet, disintegrating 1 tab(s) orally once a day 16-Dec-2022 09:15 biotin 5000 mcg oral tablet, disintegrating is continued as biotin 5000 mcg oral tablet, disintegrating bumetanide 1 mg oral tablet 1 tab(s) orally once a day 16-Dec-2022 09:15 bumetanide 1 mg oral tablet 1 tab(s) orally once a day 16-Dec-2022 09:15 bumetanide 1 mg oral tablet is continued as bumetanide 1 mg oral tablet carvedilol 25 mg oral tablet 1 tab(s) orally 2 times a day 16-Dec-2022 09:15 carvedilol 25 mg oral tablet 1 tab(s) orally 2 times a day 16-Dec-2022 09:15 carvedilol 25 mg oral tablet is continued as carvedilol 25 mg oral tablet clopidogrel 75 mg oral tablet 1 tab(s) orally once a day 16-Dec-2022 09:16 clopidogrel 75 mg oral tablet 1 tab(s) orally once a day 16-Dec-2022 09:16 clopidogrel 75 mg oral tablet is continued as clopidogrel 75 mg oral tablet Entresto 24 mg-26 mg oral tablet 1 tab(s) orally 2 times a day 16-Dec-2022 09:16 Entresto 24 mg-26 mg oral tablet 1 tab(s) orally 2 times a day 16-Dec-2022 09:16 Entresto 24 mg-26 mg oral tablet is continued as Entresto 24 mg-26 mg oral tablet Fish Oil 1000 mg oral capsule 1 cap(s) orally 2 times a day 16-Dec-2022 09:16 Fish Oil 1000 mg oral capsule 1 cap(s) orally 2 times a day 16-Dec-2022 09:16 Fish Oil 1000 mg oral capsule is continued as Fish Oil 1000 mg oral capsule folic acid 0.4 mg oral tablet 1 tab(s) orally once a day 16-Dec-2022 09:17 folic acid 0.4 mg oral tablet 1 tab(s) orally once a day 16-Dec-2022 09:17 folic acid 0.4 mg oral tablet is continued as folic acid 0.4 mg oral tablet Jardiance 10 mg oral tablet 1 tab(s) orally once a day (in the morning) 17-Dec-2022 07:55 Jardiance 10 mg oral tablet 1 tab(s) orally once a day (in the morning) 17-Dec-2022 07:55 Jardiance 10 mg oral tablet is continued as Jardiance 10 mg oral tablet levothyroxine 50 mcg (0.05 mg) oral tablet 1 tab(s) orally once a day 16-Dec-2022 09:17 levothyroxine 50 mcg (0.05 mg) oral tablet 1 tab(s) orally once a day 16-Dec-2022 09:17 levothyroxine 50 mcg (0.05 mg) oral tablet is continued as levothyroxine 50 mcg (0.05 mg) oral tablet Lutein 1 tab(s) orally once a day 16-Dec-2022 09:18 Lutein 1 tab(s) orally once a day 16-Dec-2022 09:18 Lutein is continued as Lutein Nitrostat 0.4 mg sublingual tablet 1 tab(s) sublingual every 5 minutes, As Needed 16-Dec-2022 09:18 Nitrostat 0.4 mg sublingual tablet 1 tab(s) sublingual every 5 minutes, As Needed 16-Dec-2022 09:18 Nitrostat 0.4 mg sublingual tablet is continued as Nitrostat 0.4 mg sublingual tablet spironolactone 25 mg oral tablet 1 tab(s) orally once a day 16-Dec-2022 09:18 spironolactone 25 mg oral tablet 1 tab(s) orally once a day 16-Dec-2022 09:18 spironolactone 25 mg oral tablet is continued as spironolactone 25 mg oral tablet Super B Complex oral tablet 1 tab(s) orally once a day 16-Dec-2022 09:18 Super B Complex oral tablet 1 tab(s) orally once a day 16-Dec-2022 09:18 Super B Complex oral tablet is continued as Super B Complex oral tablet Vitamin C 1 tab(s) orally once a day 16-Dec-2022 09:19 Vitamin C 1 tab(s) orally once a day 16-Dec-2022 09:19 Vitamin C is continued as Vitamin C Vitamin D3 25 mcg (1000 intl units) oral tablet 1 tab(s) orally once a day 17-Dec-2022 07:54 Vitamin D3 25 mcg (1000 intl units) oral tablet 1 tab(s) orally once a day 17-Dec-2022 07:54 Vitamin D3 25 mcg (1000 intl units) oral tablet is continued as Vitamin D3 25 mcg (1000 intl units) oral tablet vitamin E 1 tab(s) orally once a day 16-Dec-2022 09:19 vitamin E 1 tab(s) orally once a day 16-Dec-2022 09:19 vitamin E is continued as vitamin E Current OrdersDateHOME MEDICATIONS AT DISCHARGE DateReco (more content not included)... Normal [facility] Patient Profile - Preop v3on 12-17-2022 Patient Profile - Preop v3 Patient Profile - Preop: Initial Info: Patient DemographicsName: SHAWNA HERNANDES Date: 1945 Address: [address] [place] [address] Primary Phone [phone] How to be AddressedJack Spoken Language PreferredEnglish Source of Informationpatient Stated Reason for AdmissionI need a new AICD. Primary Contact Name and NumberMartha (spouse) Limitations on Visitors/Phone Callsnone Medications Brought to Hospitalno General Health: Weight in kg96.3 kilogram(s) Weight in jck026.3 pound(s) Weight Methodactual (measured) Scale Typestanding Height in feet5 feet Height in inches6.97 inch(es) Height in cm170.1 centimeter(s) Height Methodstated BMI (kg/m2)33.282 square meter Patient or Family Member Reaction to Anesthesiano previous reaction Blood Avoidance/Restrictionsnone Previous Transfusion Reactionno Health Mgmt: Symptoms/Conditions Managed at Homecardiovascular; endocrine; genitourinary; HEENT (head, eyes, ears, nose, throat); neurological Cardiovascular Symptoms/Conditionshyperte nsion; dysrhythmia; myocardial infarction; heart failure; cardiomyopathy Cardiovascular Management Strategiesmedication therapy; routine screening Cardiovascular Symptoms/Conditions CommentICD Endocrine Symptoms/Conditionsthyroid disease Endocrine Management Strategiesroutine screenings; medication therapy Genitourinary Symptoms/Conditionsdifficu lty voiding Genitourinary Symptoms/Conditions CommentPatient had TURP in the past. HEENT Symptoms/Conditionsvision problem(s) Vision Problemscataract(s) HEENT Management Strategiesmedication therapy; routine screening Neurological Symptoms/Conditions CommentTIA Barriers to Managing Healthnone Relationship/Environ: Lives Withspouse Living Arrangementshouse Resource/Environmental Concernsnone Anticipated Transition [facility] Anticipated at Transitionnone Tobacco Use: Tobacco Useno Pre-op Checklist: Arrival [id number] Arrival Time06:41 Procedure TypePocket revision and upgrade to Bi-V ICD NPOyes Last Food [id number] 18:00 Last Clear Fluid [id number] 05:00 ID Band On Patientpatient ID (name), allergy, falls risk Consent Signedyes H&P Completeyes Anesthesia Assessment Completedpending EKG Performedyes Chest X-Ray Performedyes Preop Antibioticsstarted in preop Beta-toi Last Dose Date/[id number] 18:00 Type and Screen Resultedn/a Chlorhexadine Bath Givencompleted in pre-op Nasal Antiseptic Appliedcompleted in pre-op Soap and Water Bath the Night Before Surgerynot applicable Hair Washed with Shampoonot applicable Bowel Prepno Surgical Site Infection Preventionyes Pain Scales and Managementyes Additional Information: Information Review: Allergies, Home Meds and Significant Events have been Reviewed and Verified with Patient/Familyyes Allergy, Intolerance, Adverse Event: Allergies: Zocor: Drug, Unknown, Active Electronic Signatures: Carmen Bush (ALIS) (Signed 17-Dec-2022 07:26) Authored: Initial Info, General Health, Health Mgmt, Relationship/Environ, Tobacco Use, Pre-op Checklist, Additional Information Last Updated: 17-Dec-2022 07:26 by Carmen Bush (ALIS) Normal [facility] XR chest 2 viewon 12-17-2022 No acute process. Signed by Nancy Ross MD [facility] [place] [facility] Interpreted By: NANCY LEMUS MD STUDY: Chest Radiographs; 12/17/2022, 6:41AM. INDICATION: Pre op implantable cardiac defibrillator. COMPARISON: None. ACCESSION NUMBER(S): [id number] ORDERING CLINICIAN: ROSE DING MD TECHNIQUE: Frontal and lateral chest. FINDINGS: CARDIOMEDIASTINAL SILHOUETTE: Cardiomediastinal silhouette is normal in size and configuration. Left-sided cardiac AICD. LUNGS: Lungs are clear. ABDOMEN: No remarkable upper abdominal findings. BONES: No acute osseous changes. [facility] [place] [facility] Nancy Ross MD - 12/17/2022 Interpreted By: NANCY ROSS MD STUDY: Chest Radiographs; 12/17/2022, 6:41AM. INDICATION: Pre op implantable cardiac defibrillator. COMPARISON: None. ACCESSION NUMBER(S): [id number] ORDERING CLINICIAN: ROSE DING MD TECHNIQUE: Frontal and lateral chest. FINDINGS: CARDIOMEDIASTINAL SILHOUETTE: Cardiomediastinal silhouette is normal in size and configuration. Left-sided cardiac AICD. LUNGS: Lungs are clear. ABDOMEN: No remarkable upper abdominal findings. BONES: No acute osseous changes. IMPRESSION: No acute process. Signed by Nancy Ross MD [facility] Work Phone: Radiology Study observation (narrative) [facility] Work Phone: XR chest 2 viewOrdered By: Nima Ross on 12-17-2022 [facility] Work Phone: Basophils Auto (Bld) [#/Vol] Ordered By: Rose Ding on 12-11-2022 Basophils (Bld) [#/Vol] 0.1 10*3/uL 0.0-0.2 [facility] Basophils/100 WBC Auto (Bld) Ordered By: Rose Ding on 12-11-2022 Basophils/100 WBC (Bld) 0.8 % . [facility] Calcium [Mass/volume] in Ser um or PlasmaOrdered By: Rose Ding on 12-11-2022 Calcium [Mass/Vol] 9.0 mg/dL 8.6-10.3 [facility] Carbon dioxide, total [Moles /volume] in Serum or PlasmaOrdered By: Rose Ding on 12-11-2022 CO2 [Moles/Vol] 24.4 mmol/L 21.0-31.0 [facility] Chloride [Moles/volume] in S raiza or PlasmaOrdered By: Rose Ding on 12-11-2022 Chloride [Moles/Vol] 100 mmol/L 98-107 [facility] Creatinine [Mass/volume] in Serum or PlasmaOrdered By: Rose Ding on 12-11-2022 Creatinine [Mass/Vol] 1.60 mg/dL 0.70-1.30 [facility] Eosinophils Auto (Bld) [#/Vo l]Ordered By: Rose Ding on 12-11-2022 Eosinophils (Bld) [#/Vol] 0.2 10*3/uL 0.0-0.45 [facility] Eosinophils/100 WBC Auto (Bl d)Ordered By: Rose Ding on 12-11-2022 Eosinophils/100 WBC (Bld) 2.2 % . [facility] Erythrocyte distribution wid th Auto (RBC) [Ratio]Ordered By: Rose Ding on 12-11-2022 Erythrocyte distribution width (RBC) [Ratio] 14.6 % 12.0-14.8 [facility] Glucose [Mass/volume] in Ser um or PlasmaOrdered By: Rose Ding on 12-11-2022 Glucose [Mass/Vol] 113 mg/dL 70-100 [facility] Comment on above: ADA recommended refe rence rangeRandom Glucose Reference Range is dependent on time and content of last meal. Glucose of more than 200 mg/dL in a nonstressed, ambulatory subject supports the diagnosis of Diabetes Mellitus. Hematocrit Auto (Bld) [Volum e fraction]Ordered By: Rose Ding on 12-11-2022 Hematocrit (Bld) [Volume fraction] 41.2 % 38.8-50.0 [facility] Hemoglobin [Mass/volume] in BloodOrdered By: Rose Ding on 12-11-2022 Hemoglobin (Bld) [Mass/Vol] 13.8 g/dL 13.0-17.0 [facility] Laboratory - CoagulationOrde red By: Rose Ding on 12-11-2022 PT Coag (PPP) [Time] 13.3 s 9.0-12.9 [facility] Leukocytes [#/volume] correc drake for nucleated erythrocytes in Blood by Automated counOrdered By: Rose Ding on 12-11-2022 WBC corrected for nucl RBC Auto (Bld) [#/Vol] 7.0 10*3/uL 4.1-10.5 [facility] Lymphocytes Auto (Bld) [#/Vo l]Ordered By: Rose Ding on 12-11-2022 Lymphocytes (Bld) [#/Vol] 0.9 10*3/uL 1.00-4.8 [facility] Lymphocytes/100 WBC Auto (Bl d)Ordered By: Rose Ding on 12-11-2022 Lymphocytes/100 WBC (Bld) 12.4 % . [facility] MCH Auto (RBC) [Entitic mass ]Ordered By: Rose Ding on 12-11-2022 MCH (RBC) [Entitic mass] 32.8 pg 27.5-35.2 [facility] MCHC Auto (RBC) [Mass/Vol]Or dered By: Rose Ding on 12-11-2022 MCHC (RBC) [Mass/Vol] 33.5 g/dL 32.5-35.6 [facility] MCV Auto (RBC) [Entitic vol] Ordered By: Rose Ding on 12-11-2022 MCV (RBC) [Entitic vol] 97.9 fL 83.5-101 [facility] Monocytes Auto (Bld) [#/Vol] Ordered By: Rose Ding on 12-11-2022 Monocytes (Bld) [#/Vol] 0.9 10*3/uL 0.0-0.8 [facility] Monocytes/100 WBC Auto (Bld) Ordered By: Rsoe Ding on 12-11-2022 Monocytes/100 WBC (Bld) 12.7 % . [facility] Neutrophils Auto (Bld) [#/Vo l]Ordered By: Rose Ding on 12-11-2022 Neutrophils (Bld) [#/Vol] 5.0 10*3/uL 1.8-7.7 [facility] Neutrophils/100 WBC Auto (Bl d)Ordered By: Rose Ding on 12-11-2022 Neutrophils/100 WBC (Bld) 71.9 % . [facility] No Panel InformationOrdered By: Rose Ding on 12-11-2022 Estimated GFR (CKD-EPI) 44.378 mL/Min [facility] Creatinine Clearance (Chem N/A [facility] Nucleated erythrocytes [Pres ence] in Blood by Automated countOrdered By: Rose Ding on 12-11-2022 Nucleated RBC Auto Ql (Bld) 0.1 /100{WBC} 0-0.5 [facility] Platelet mean volume Auto (B ld) [Entitic vol]Ordered By: Rose Ding on 12-11-2022 Platelet mean volume (Bld) [Entitic vol] 10.5 fL 6.6-10.1 [facility] Platelet poor plasma interna tional normalized ratio (INR) by coagulation assay (relatOrdered By: Rose Ding on 12-11-2022 INR Coag (PPP) [Relative time] 1.2 {INR} [facility] Comment on above: INR Therapeutic Rang e A) Pre- and Peroperative OAT started two weeks before surgery. NOT HIP SURGERY: 1.5 - 2.5 HIP SURGERY: 2 - 3B) Primary and secondary prevention of venous THROMBOSIS: 2 - 3C) Active venous thrombosis, pulmonary embolismand prevention of recurrent venous thrombosis: 2 - 3D) Prevention of arterial thromboembolismincluding patients with mechanical heart valves: 3 - 4.5 Platelets Auto (Bld) [#/Vol] Ordered By: Rose Ding on 12-11-2022 Platelets (Bld) [#/Vol] 217 10*3/uL 150-450 [facility] Potassium [Moles/volume] in Serum or PlasmaOrdered By: Rose Ding on 12-11-2022 Potassium [Moles/Vol] 4.3 mmol/L 3.5-5.1 [facility] RBC Auto (Bld) [#/Vol]Ordere d By: Rose Ding on 12-11-2022 RBC (Bld) [#/Vol] 4.21 10*6/uL 3.90-5.60 [facility] Serum or plasma anion gap de terminationOrdered By: Rose Ding on 12-11-2022 Anion gap [Moles/Vol] 13.9 mmol/L 6.0-15.0 [facility] Sodium [Moles/volume] in Ser um or PlasmaOrdered By: Rsoe Ding on 12-11-2022 Sodium [Moles/Vol] 134 mmol/L 136-145 [facility] Urea nitrogen [Mass/volume] in Serum or PlasmaOrdered By: Rose Ding on 12-11-2022 Urea nitrogen [Mass/Vol] 29 mg/dL 7-25 [facility] WBC Auto (Bld) [#/Vol]Ordere d By: Rose Ding on 12-11-2022 WBC (Bld) [#/Vol] 7.0 10*3/uL 4.1-10.5 [facility] Office Visit (Cardiology)on 12-09-2022 Follow-up visit Diagnoses/Problems Assessed Chronic systolic CHF (congestive heart failure) (428.22,428.0) (I50.22) Essential hypertension (401.9) (I10) Class 1 obesity with body mass index (BMI) of 32.0 to 32.9 in adult (278.00,V85.32) (E66.9,Z68.32) Orders Class 1 obesity with body mass index (BMI) of 32.0 to 32.9 in adult Healthy Weight Tips; Status:Complete - Retrospective Authorization; Done: [id number] Some eating tips that can help you lose weight.; Status:Complete - Retrospective Authorization; Done: [id number] Patient Instructions Please bring all medicines, vitamins, and herbal supplements with you when you come to the office. Prescriptions will not be filled unless you are compliant with your follow up appointments or have a follow up appointment scheduled as per instruction of your physician. Refills should be requested at the time of your visit. Patient to call with medications Follow up in 3 months Chief Complaint SHAWNA HERNANDES is being seen for a 2 week follow-up of BP/OV, Entresto adjustment. Patient is in the office accompanied by his after recent discharge from the hospital for decompensated heart failure and we adjusted his heart failure therapy and reduce the amount of both Coreg and Entresto. He is doing well and scheduled to have upgrade of his AICD to biventricular device on 17 Dec 2022 at [facility] with Dr. Ding. He has occasional dizziness which is positional due to soft blood pressure readings. His systolic blood pressure remains less than 100 mmHg. Advised patient to call me back from home with the exact amount of Entresto and Coreg he is on, no change in medical therapy will be made at this time. We cannot titrate his heart failure therapy at the present time. Current Meds Medication NameInstruction Amiodarone HCl - 200 MG Oral TabletTAKE ONE TABLET BY MOUTH DAILY Aspirin EC 81 MG TBECTAKE 1 TABLET DAILY DIRECTED. Atorvastatin Calcium 80 MG Oral TabletTAKE 1 TABLET DAILY. Biotin 5000 MCG Oral TabletTake 1 tablet daily Bumetanide 1 MG Oral TabletTAKE 1 TABLET DAILY. Carvedilol 25 MG Oral TabletTAKE 1 TABLET Twice daily Clopidogrel Bisulfate 75 MG Oral TabletTAKE 1 TABLET DAILY. Entresto 24-26 MG Oral TabletTAKE 1 TABLET BY MOUTH TWICE A DAY Fish Oil 1000 MG Oral CapsuleTake 1 capsule twice daily Folic Acid 400 MCG Oral TabletTAKE 1 TABLET DAILY DIRECTED. Levothyroxine Sodium 50 MCG Oral TabletTAKE 1 TABLET DAILY DIRECTED. Lutein TABSTake 1 tablet daily Nitroglycerin 0.4 MG [address]ual Tablet SublingualPLACE 1 TABLET UNDER THE TONGUE EVERY 5 MINUTES FOR UP TO 3 DOSES NEEDED FOR CHEST PAIN.CALL 911 IF PAIN PERSISTS. Spironolactone 25 MG Oral Tablettake 1/2 tablet by mouth daily Super B Complex TABSTake 1 tablet daily Vitamin A TABSTAKE 1 TABLET DAILY. Vitamin C TABSTAKE 1 TABLET DAILY. Vitamin E TABSTake 1 tablet daily Allergies Medication Zocor Adverse Reaction; Diarrhea; Recorded By: Sangeeta Hodgson; 06/10/2021 8:02:17 AM Social History Problems Consumes alcohol occasionally (V49.89) (Z78.9) rare Former smoker (V15.82) (Z87.891) quit 1974 No illicit drug use Occasional caffeine consumption 2-3 times weekly Vitals Vital Signs Recorded: 09Dec2022 09:28AMRecorded: 09Dec2022 09:26AM Qrmaejsv80, RUE, Stvgoyl67, LUE, Sitting Vnghcvdat08, RUE, Fyozbdn55, LUE, Sitting Heart Rate58, L Radial Height5 ft 7 in Zyhkky761 lb BMI Pzxkxslcmz25.89 kg/m2 BSA Calculated2.06 Tobacco Useb) No PHQ-2 #1. Over the last 2 weeks have you felt down, depressed or hopeless? (If yes, answer PHQ-9 below)No PHQ-2 #2. Over the last 2 weeks have you felt little interest or pleasure in doing things? (If yes, answer PHQ-9 below)No Falls Screening (Age 18+)a) No falls within the last year Signatures Electronically signed by : Ranjan Quiles MD; Dec 09 2022 9:49AM EST (Author) [employer] Tobacco Screening.on 023 Adult depression screening assessment No [facility] [place] [facility] Work Phone: Fall risk assessment a) No falls within the last year [facility] [address] DO Work Phone: Tobacco use status [facility] b) No [facility] [place] [facility] DO Work Phone: Calcium [Mass/volume] in Ser um or PlasmaOrdered By: Ranjan Quiles on 12-04-2022 Calcium [Mass/Vol] 8.7 mg/dL 8.6-10.3 [facility] Carbon dioxide, total [Moles /volume] in Serum or PlasmaOrdered By: Ranjan Quiles on 12-04-2022 CO2 [Moles/Vol] 25.2 mmol/L 21.0-31.0 [facility] Chloride [Moles/volume] in S raiza or PlasmaOrdered By: Ranjan Quiles on 12-04-2022 Chloride [Moles/Vol] 102 mmol/L 98-107 [facility] Creatinine [Mass/volume] in Serum or PlasmaOrdered By: Ranjan Quiles on 12-04-2022 Creatinine [Mass/Vol] 1.66 mg/dL 0.70-1.30 [facility] Glucose [Mass/volume] in Ser um or PlasmaOrdered By: Ranjan Quiles on 12-04-2022 Glucose [Mass/Vol] 111 mg/dL 70-100 [facility] Comment on above: ADA recommended refe rence rangeRandom Glucose Reference Range is dependent on time and content of last meal. Glucose of more than 200 mg/dL in a nonstressed, ambulatory subject supports the diagnosis of Diabetes Mellitus. No Panel InformationOrdered By: Ranjan Quiles on 12-04-2022 Estimated GFR (CKD-EPI) 42.459 mL/Min [facility] Creatinine Clearance (Chem N/A [facility] No Panel Informationon 12-04 42.459\S\42.459 Normal [facility] [address] [place] [address] DO Work Phone: 13.2\S\13.2 Normal 6.0-15.0 [facility] [place] [address] DO Work Phone: 8.7\S\8.7 Normal 8.6-10.3 [facility] Pr[address]hu [address] 250 DO Work Phone: Comment on above: PERFORMED BY:[facility] [place], [place] [phone] MEDICAL DIRECTORPAM BISHOP M.D. 25.2\S\25.2 Normal 21.0-31.0 [facility] Pr[address]hu [place] [address] DO Work Phone: 102\S\102 Normal 98-107 [facility] [address] [place] [address] DO Work Phone: 4.4\S\4.4 Normal 3.5-5.1 [facility] [address] 250 DO Work Phone: 136\S\136 Normal 136-145 [facility] [address] 250 DO Work Phone: 1.66\S\1.66 above high threshold 0.70-1.30 [facility] [address] 250 DO Work Phone: 27\S\27 above high threshold 7-25 [facility] [address] 250 DO Work Phone: 111\S\111 above high threshold 70-100 [facility] Pr[address] 250 DO Work Phone: Comment on above: Random Glucose Refer ence Range is dependent on time and content of last meal. Glucose of more than 200 mg/dL in a nonstressed, ambulatory subject supports the diagnosis of Diabetes Mellitus. ADA recommended reference range Potassium [Moles/volume] in Serum or PlasmaOrdered By: Ranjan Quiles on 12-04-2022 Potassium [Moles/Vol] 4.4 mmol/L 3.5-5.1 [facility] Serum or plasma anion gap de terminationOrdered By: Ranjan Quiles on 12-04-2022 Anion gap [Moles/Vol] 13.2 mmol/L 6.0-15.0 [facility] Sodium [Moles/volume] in Ser um or PlasmaOrdered By: Ranjan Quiles on 12-04-2022 Sodium [Moles/Vol] 136 mmol/L 136-145 [facility] Urea nitrogen [Mass/volume] in Serum or PlasmaOrdered By: Ranjan Quiles on 12-04-2022 Urea nitrogen [Mass/Vol] 27 mg/dL 02-24 [facility] Office Visit (Cardiology)on 11-28-2022 Follow-up visit Diagnoses/Problems Assessed ICD (implantable cardioverter-defibrillator ) in place (V45.02) (Z95.810) LBBB (left bundle branch block) (426.3) (I44.7) Ventricular tachycardia (427.1) (I47.20) Hyperlipidemia (272.4) (E78.5) Chronic systolic CHF (congestive heart failure) (428.22,428.0) (I50.22) Atrial fibrillation (427.31) (I48.91) Class 1 obesity with body mass index (BMI) of 33.0 to 33.9 in adult (278.00,V85.33) (E66.9,Z68.33) Former smoker (V15.82) (Z87.891) quit 1974 Atherosclerosis of [place] coronary artery of [place] heart without angina pectoris (414.01) (I25.10) Encounter to establish care with new doctor (V65.8) (Z76.89) Encounter to discuss treatment options (V65.49) (Z71.89) Encounter to discuss test results (V65.49) (Z71.2) Encounter for medication counseling (V65.49) (Z71.89) Ischemic cardiomyopathy (414.8) (I25.5) High risk medication use (V58.69) (Z79.899) Preop cardiovascular exam (V72.81) (Z01.810) Orders AICD at end of battery life, Chronic systolic CHF (congestive heart failure), ICD (implantable cardioverter-defibrillator ) in place Electrophysiology Procedure; Status:Active - Retrospective Authorization; Requested for:28Nov2022; Atrial fibrillation Basic Metabolic Panel; Status:Active - Retrospective Authorization; Requested for:28Nov2022; Complete Blood Count; Status:Active - Retrospective Authorization; Requested for:28Nov2022; PT/INR; Status:Active - Retrospective Authorization; Requested for:28Nov2022; Class 1 obesity with body mass index (BMI) of 33.0 to 33.9 in adult Healthy Weight Tips; Status:Complete - Retrospective Authorization; Done: 28Nov2022 Losing just 5 to 10 pounds may lower your risk of health problems.; Status:Complete - Retrospective Authorization; Done: 28Nov2022 Encounter to establish care with new doctor, LBBB (left bundle branch block) Electrocardiogram EKG; Status:Hold For - Scheduling,Retrospective Authorization; Requested for:28Nov2022; SocHx: Former smoker Tobacco Use Screening; Status:Complete; Done: 28Nov2022 Patient Instructions Continue same medications Patient educated on proper medication use. Patient educated on risk factor modification. Please bring any lab or test results from other providers/physician to your next appointment. Please bring all prescription medicines , vitamins, and herbal supplements, and over the counter medicines you use with you every time you come for appointment. Prescriptions will not be filled unless you are compliant with your follow up appointments or have a follow up appointment scheduled as per instruction of your physician. Refills should be requested at time of your visit. Alexandre Florentino LPN , am scribing for and in the presence of Dr Rose Ding. EP Procedure to be scheduled, Chief Complaint New patient visit states needs a device upgrade Adult Risk Screening Tobacco Screening: SHAWNA does not use tobacco. History of Present Illness He is referred here by Dr. Quiles for electrophysiology evaluation of device The patient and are here to discuss upgrade of device. He reports that he had his first device deployed in the . There was a problem with the lead and he was sent to the [facility]. The lead was extracted and new lead was occluded. His current lead was implanted in 2003. His current device was implanted in 2009 He has had recurrent ER visits and hospitalizations for acute decompensated heart failure. Most recently is acute on chronic heart for hospitalization was 03/26/2023. With diuresis he felt. better. The patient denies any lightheadedness, near syncope, syncope, palpitation, chest discomfort, orthopnea, paroxysmal nocturnal dyspnea, or edema now. The device site is well-healed and unchanged. The patient denies any redness, swelling, or drainage of the site. See ROS, PMH, FMH, and surgical history for details. Personal review of ECG and cardiac data reviewed Outside records: [facility] hospitalization November 2022. Acute decompensated heart failure Echocardiogram November 2022. LVEF 15 to 20%. Severe dilation of left atrium. Mild to moderate mitral vegetation. Mild TR. Pulmonary hypertension with RVSP 5060 mmHg. Device Check: [facility] device clinic. [employer] 8102 telogen ICD. 0 VT.. 45% ventricular pacing. Estimate longevity device 2 years. ECG: Today. Normal sinus rhythm. Left bundle branch block. QRS duration 150 ms. Left axis deviation. QTc 409 ms. Second ECG performed due to shortness of breath. Atrial fibrillation. Appropriate pacing. Left axis deviation. Paced QT interval 600 ms. Paced QRS 230 ms See signed ECG and check /Paceart. Imp / Plan Nonischemic cardiomyopathy. LVEF 15 to 20%. QRS 150 ms of left bundle branch block at baseline and 230 ms with ventricular pacing. Repeat hospitalizations for acute on chronic heart failure. Most recent hospitalization earlier this month. NYHA IIIc heart failure. Also with underlying sinus bradycardia and p (more content not included)... Normal [place] Tobacco Screening.on 023 Adult depression screening assessment No [facility] [place] DO Work Phone: Fall risk assessment a) No falls within the last year [facility] S[place] DO Work Phone: Tobacco use status CP b) No [facility] [address] DO Work Phone: Glucose Glucometer (BldC) [M ass/Vol]Ordered By: Shakir Tsai on 11-25-2022 Glucose [Mass/Vol] 116 mg/dL [facility] Comment on above: Random Glucose Refer ence Range is dependent on time and content of last meal. Glucose of more than 200 mg/dL in a nonstressed, ambulatory subject supports the diagnosis of Diabetes Mellitus. No Panel InformationOrdered By: Shakir Tsai on 11-25-2022 Bedside Glucose Comment Glu2: cleaned meter [facility] Alanine aminotransferase [En zymatic activity/volume] in Serum or PlasmaOrdered By: Jennifer Mena on 11-24-2022 ALT [Catalytic activity/Vol] 88 U/L 7-52 [facility] Albumin [Mass/volume] in Ser um or Plasma by Bromocresol green (BCG) dye binding methoOrdered By: Jennifer Mena on 11-24-2022 Albumin BCG dye [Mass/Vol] 3.8 g/dL 3.5-5.7 [facility] Alkaline phosphatase [Enzyma tic activity/volume] in Serum or PlasmaOrdered By: Jennifer Mena on 11-24-2022 ALP [Catalytic activity/Vol] 60 U/L 34-104 [facility] Aspartate aminotransferase [ Enzymatic activity/volume] in Serum or PlasmaOrdered By: Jennifer Mena on 11-24-2022 AST [Catalytic activity/Vol] 29 U/L 13-39 [facility] Bilirubin.total [Mass/volume ] in Serum or PlasmaOrdered By: Jennifer Mena on 11-24-2022 Bilirubin [Mass/Vol] 0.9 mg/dL 0.3-1.0 [facility] Calcium [Mass/volume] in Ser um or PlasmaOrdered By: Jennifer Mena on 11-24-2022 Calcium [Mass/Vol] 8.3 mg/dL 8.6-10.3 [facility] Carbon dioxide, total [Moles /volume] in Serum or PlasmaOrdered By: Jennifer Mena on 11-24-2022 CO2 [Moles/Vol] 27.3 mmol/L 21.0-31.0 [facility] Chloride [Moles/volume] in S raiza or PlasmaOrdered By: Jennifer Mena on 11-24-2022 Chloride [Moles/Vol] 102 mmol/L 98-107 [facility] Creatinine [Mass/volume] in Serum or PlasmaOrdered By: Jennifer Mena on 11-24-2022 Creatinine [Mass/Vol] 1.86 mg/dL 0.70-1.30 [facility] Globulin Calc (S) [Mass/Vol] Ordered By: Jennifer Mena on 11-24-2022 Globulin (S) [Mass/Vol] 2.6 g/dL [facility] Glucose [Mass/volume] in Ser um or PlasmaOrdered By: Jennifer Mena on 11-24-2022 Glucose [Mass/Vol] 109 mg/dL 70-100 [facility] Comment on above: ADA recommended refe rence rangeRandom Glucose Reference Range is dependent on time and content of last meal. Glucose of more than 200 mg/dL in a nonstressed, ambulatory subject supports the diagnosis of Diabetes Mellitus. Natriuretic peptide B [Mass/ Vol]Ordered By: Marcelino Valladares on 11-24-2022 Natriuretic peptide B (Bld) [Mass/Vol] 1175.0 pg/mL 5-100 [facility] No Panel InformationOrdered By: Jennifer Mena on 11-24-2022 Estimated GFR (CKD-EPI) 37.041 mL/Min [facility] Creatinine Clearance (Chem 38.37 [facility] Potassium [Moles/volume] in Serum or PlasmaOrdered By: Jennifer Mena on 11-24-2022 Potassium [Moles/Vol] 3.5 mmol/L 3.5-5.1 [facility] Protein [Mass/volume] in Ser um or PlasmaOrdered By: Jennifer Mena on 11-24-2022 Protein [Mass/Vol] 6.4 g/dL 6.4-8.9 [facility] Serum or plasma albumin/glob ulin mass ratioOrdered By: Jennifer Mena on 11-24-2022 Albumin/Globulin [Mass ratio] 1.5 {ratio} [facility] Serum or plasma anion gap de terminationOrdered By: Jennifer Mena on 11-24-2022 Anion gap [Moles/Vol] 12.2 mmol/L 6.0-15.0 [facility] Sodium [Moles/volume] in Ser um or PlasmaOrdered By: Jennifer Mena on 11-24-2022 Sodium [Moles/Vol] 138 mmol/L 136-145 [facility] Urea nitrogen [Mass/volume] in Serum or PlasmaOrdered By: Jennifer Mena on 11-24-2022 Urea nitrogen [Mass/Vol] 40 mg/dL 02-24 [facility] Basophils Auto (Bld) [#/Vol] Ordered By: Jennifer Mena on 11-22-2022 Basophils (Bld) [#/Vol] 0.0 10*3/uL 0.0-0.2 [facility] Basophils/100 W[facility] Auto (Bld) Ordered By: Jennifer Mena on 11-22-2022 Basophils/100 WBC (Bld) 0.5 % . [facility] Eosinophils Auto (Bld) [#/Vo l]Ordered By: Jennifer Mena on 11-22-2022 Eosinophils (Bld) [#/Vol] 0.1 10*3/uL 0.0-0.45 [facility] Eosinophils/100 WBC Auto (Bl d)Ordered By: Jennifer Mena on 11-22-2022 Eosinophils/100 WBC (Bld) 1.5 % . [facility] Erythrocyte distribution wid th Auto (RBC) [Ratio]Ordered By: Jennifer Mena on 11-22-2022 Erythrocyte distribution width (RBC) [Ratio] 15.0 % 12.0-14.8 [facility] Hematocrit Auto (Bld) [Volum e fraction]Ordered By: Jennifer Mena on 11-22-2022 Hematocrit (Bld) [Volume fraction] 34.4 % 38.8-50.0 [facility] Hemoglobin [Mass/volume] in BloodOrdered By: Jennifer Mena on 11-22-2022 Hemoglobin (Bld) [Mass/Vol] 11.6 g/dL 13.0-17.0 [facility] Leukocytes [#/volume] correc drake for nucleated erythrocytes in Blood by Automated counOrdered By: Jennifer Mena on 11-22-2022 WBC corrected for nucl RBC Auto (Bld) [#/Vol] 7.7 10*3/uL 4.1-10.5 [facility] Lymphocytes Auto (Bld) [#/Vo l]Ordered By: Jennifer Mena on 11-22-2022 Lymphocytes (Bld) [#/Vol] 0.9 10*3/uL 1.00-4.8 [facility] Lymphocytes/100 WBC Auto (Bl d)Ordered By: Jennifer Mena on 11-22-2022 Lymphocytes/100 WBC (Bld) 12.2 % . [facility] MCH Auto (RBC) [Entitic mass ]Ordered By: Jennifer Mena on 11-22-2022 MCH (RBC) [Entitic mass] 33.3 pg 27.5-35.2 [facility] MCHC Auto (RBC) [Mass/Vol]Or dered By: Jennifer Mena on 11-22-2022 MCHC (RBC) [Mass/Vol] 33.7 g/dL 32.5-35.6 [facility] MCV Auto (RBC) [Entitic vol] Ordered By: Jennifer Mena on 11-22-2022 MCV (RBC) [Entitic vol] 98.7 fL 83.5-101 [facility] Monocytes Auto (Bld) [#/Vol] Ordered By: Jennifer Mena on 11-22-2022 Monocytes (Bld) [#/Vol] 0.9 10*3/uL 0.0-0.8 [facility] Monocytes/100 WBC Auto (Bld) Ordered By: Jennifer Mena on 11-22-2022 Monocytes/100 WBC (Bld) 11.6 % . [facility] Neutrophils Auto (Bld) [#/Vo l]Ordered By: Jennifer Mena on 11-22-2022 Neutrophils (Bld) [#/Vol] 5.7 10*3/uL 1.8-7.7 [facility] Neutrophils/100 WBC Auto (Bl d)Ordered By: Jennifer Mena on 11-22-2022 Neutrophils/100 WBC (Bld) 74.2 % . [facility] Nucleated erythrocytes [Pres ence] in Blood by Automated countOrdered By: Jennifer Mena on 11-22-2022 Nucleated RBC Auto Ql (Bld) 0.0 /100{WBC} 0-0.5 [facility] Platelet mean volume Auto (B ld) [Entitic vol]Ordered By: Jennifer Mena on 11-22-2022 Platelet mean volume (Bld) [Entitic vol] 10.4 fL 6.6-10.1 [facility] Platelets Auto (Bld) [#/Vol] Ordered By: Jennifer Mena on 11-22-2022 Platelets (Bld) [#/Vol] 173 10*3/uL 150-450 [facility] RBC Auto (Bld) [#/Vol]Ordere d By: Jennifer Mena on 11-22-2022 RBC (Bld) [#/Vol] 3.48 10*6/uL 3.90-5.60 [facility] WBC Auto (Bld) [#/Vol]Ordere d By: Jennifer Mena on 11-22-2022 WBC (Bld) [#/Vol] 7.7 10*3/uL 4.1-10.5 [facility] Activated partial thrombopla stin time (aPTT) in platelet poor plasma by coagulation aOrdered By: Laureano Taylor on 11-21-2022 aPTT Coag (PPP) [Time] 28.5 s 25.1-36.5 [facility] Alanine aminotransferase [En zymatic activity/volume] in Serum or PlasmaOrdered By: Laureano Taylor on 11-21-2022 ALT [Catalytic activity/Vol] 141 U/L 7-52 [facility] Albumin [Mass/volume] in Ser um or Plasma by Bromocresol green (BCG) dye binding methoOrdered By: Laureano Taylor on 11-21-2022 Albumin BCG dye [Mass/Vol] 3.8 g/dL 3.5-5.7 [facility] Alkaline phosphatase [Enzyma tic activity/volume] in Serum or PlasmaOrdered By: Laureano Taylor on 11-21-2022 ALP [Catalytic activity/Vol] 60 U/L 34-104 [facility] Aspartate aminotransferase [ Enzymatic activity/volume] in Serum or PlasmaOrdered By: Laureano Taylor on 11-21-2022 AST [Catalytic activity/Vol] 109 U/L 13-39 [facility] Automated erythrocytes count in urine sediment (number/area)Ordered By: Laureano Taylor on 11-21-2022 RBC Auto (Urine sed) [#/Area] 1-2 [HPF] 0-4 [facility] Automated leukocytes count i n urine sediment (number/area)Ordered By: Laureano Taylor on 11-21-2022 WBC Auto (Urine sed) [#/Area] 50-100 [HPF] 0-4 [facility] Basophils Auto (Bld) [#/Vol] Ordered By: Laureano Taylor on 11-21-2022 Basophils (Bld) [#/Vol] 0.1 10*3/uL 0.0-0.2 [facility] Basophils/100 WBC Auto (Bld) Ordered By: Laureano Taylor on 11-21-2022 Basophils/100 WBC (Bld) 0.7 % . [facility] Bilirubin Test strip Ql (U)O rdered By: Laureano Taylor on 11-21-2022 Bilirubin Ql (U) Negative Negative [facility] Bilirubin.total [Mass/volume ] in Serum or PlasmaOrdered By: Laureano Taylor on 11-21-2022 Bilirubin [Mass/Vol] 0.8 mg/dL 0.3-1.0 [facility] Calcium [Mass/volume] in Ser um or PlasmaOrdered By: Laureano Taylor on 11-21-2022 Calcium [Mass/Vol] 8.5 mg/dL 8.6-10.3 [facility] Carbon dioxide, total [Moles /volume] in Serum or PlasmaOrdered By: Laureano Taylor on 11-21-2022 CO2 [Moles/Vol] 20.5 mmol/L 21.0-31.0 [facility] Chloride [Moles/volume] in S raiza or PlasmaOrdered By: Laureano Taylor on 11-21-2022 Chloride [Moles/Vol] 99 mmol/L 98-107 [facility] Color Auto (U)Ordered By: Teto Taylor on 11-21-2022 Color (U) Dark yellow Yellow [facility] Creatine kinase [Enzymatic a ctivity/volume] in Serum or PlasmaOrdered By: Laureano Taylor on 11-21-2022 CK [Catalytic activity/Vol] 51 U/L 30-223 [facility] Creatinine [Mass/volume] in Serum or PlasmaOrdered By: Laureano Taylor on 11-21-2022 Creatinine [Mass/Vol] 2.52 mg/dL 0.70-1.30 [facility] Eosinophils Auto (Bld) [#/Vo l]Ordered By: Laureano Taylor on 11-21-2022 Eosinophils (Bld) [#/Vol] 0.1 10*3/uL 0.0-0.45 [facility] Eosinophils/100 WBC Auto (Bl d)Ordered By: Laureano Taylor on 11-21-2022 Eosinophils/100 WBC (Bld) 1.1 % . [facility] Erythrocyte distribution wid th Auto (RBC) [Ratio]Ordered By: Laureano Taylor on 11-21-2022 Erythrocyte distribution width (RBC) [Ratio] 15.1 % 12.0-14.8 [facility] Globulin Calc (S) [Mass/Vol] Ordered By: Laureano Taylor on 11-21-2022 Globulin (S) [Mass/Vol] 2.7 g/dL [facility] Glucose [Mass/volume] in Ser um or PlasmaOrdered By: Laureano Taylor on 11-21-2022 Glucose [Mass/Vol] 132 mg/dL 70-100 [facility] Comment on above: ADA recommended refe rence rangeRandom Glucose Reference Range is dependent on time and content of last meal. Glucose of more than 200 mg/dL in a nonstressed, ambulatory subject supports the diagnosis of Diabetes Mellitus. Glucose mean value [Mass/vol ume] in Blood Estimated from glycated hemoglobinOrdered By: Jennifer Mena on 11-21-2022 Average glucose Estimated from glycated hemoglobin (Bld) [Mass/Vol] 128 mg/dL [facility] Hematocrit Auto (Bld) [Volum e fraction]Ordered By: Laureano Taylor on 11-21-2022 Hematocrit (Bld) [Volume fraction] 36.0 % 38.8-50.0 [facility] Hemoglobin A1c percentageOrd ered By: Jennifer Mena on 11-21-2022 HbA1c (Bld) [Mass fraction] 6.1 % 4.3-5.6 [facility] Comment on above: Increased risk for d iabetes: 5.7 - 6.4diabetes: >6.4glycemic control for adults with diabetes: <7.0 Hemoglobin [Mass/volume] in BloodOrdered By: Laureano Taylor on 11-21-2022 Hemoglobin (Bld) [Mass/Vol] 12.1 g/dL 13.0-17.0 [facility] Ketones Auto test strip (U) [Mass/Vol]Ordered By: Laureano Taylor on 11-21-2022 Ketones (U) [Mass/Vol] Negative Negative [facility] - CoagulationOrde red By: Laureano Taylor on 11-21-2022 PT Coag (PPP) [Time] 14.1 s 9.0-12.9 [facility] Laboratory - UrinalysisOrder ed By: Laureano Taylor on 11-21-2022 Hyaline casts LM Ql (Urine sed) 9-19 [LPF] 0-8 [facility] Leukocytes [#/volume] correc drake for nucleated erythrocytes in Blood by Automated counOrdered By: Laureano Taylor on 11-21-2022 WBC corrected for nucl RBC Auto (Bld) [#/Vol] 7.8 10*3/uL 4.1-10.5 [facility] Lymphocytes Auto (Bld) [#/Vo l]Ordered By: Laureano Taylor on 11-21-2022 Lymphocytes (Bld) [#/Vol] 0.8 10*3/uL 1.00-4.8 [facility] Lymphocytes/100 WBC Auto (Bl d)Ordered By: Laureano Taylor on 11-21-2022 Lymphocytes/100 WBC (Bld) 10.2 % . [facility] MCH Auto (RBC) [Entitic mass ]Ordered By: Laureano Taylor on 11-21-2022 MCH (RBC) [Entitic mass] 33.2 pg 27.5-35.2 [facility] MCHC Auto (RBC) [Mass/Vol]Or dered By: Laureano Taylor on 11-21-2022 MCHC (RBC) [Mass/Vol] 33.6 g/dL 32.5-35.6 [facility] MCV Auto (RBC) [Entitic vol] Ordered By: Laureano Taylor on 11-21-2022 MCV (RBC) [Entitic vol] 98.9 fL 83.5-101 [facility] Magnesium [Mass/volume] in S raiza or PlasmaOrdered By: Jennifer Mena on 11-21-2022 Magnesium [Mass/Vol] 2.4 mg/dL 1.9-2.7 [facility] Monocyte distribution width [Entitic volume] in Blood by AutomatedOrdered By: Laureano Taylor on 11-21-2022 Monocyte distribution width Auto (Bld) [Entitic vol] 19.54 % 0.00-20.00 [facility] Monocytes Auto (Bld) [#/Vol] Ordered By: Laureano Taylor on 11-21-2022 Monocytes (Bld) [#/Vol] 1.0 10*3/uL 0.0-0.8 [facility] Monocytes/100 WBC Auto (Bld) Ordered By: Laureano Taylor on 11-21-2022 Monocytes/100 WBC (Bld) 12.9 % . [facility] Neutrophils Auto (Bld) [#/Vo l]Ordered By: Laureano Taylor on 11-21-2022 Neutrophils (Bld) [#/Vol] 5.8 10*3/uL 1.8-7.7 [facility] Neutrophils/100 WBC Auto (Bl d)Ordered By: Laureano Taylor on 11-21-2022 Neutrophils/100 WBC (Bld) 75.1 % . [facility] Nitrite Test strip Ql (U)Ord ered By: Laureano Taylor on 11-21-2022 Nitrite Ql (U) Negative Negative [facility] No Panel InformationOrdered By: Laureano Taylor on 11-21-2022 Estimated GFR (CKD-EPI) 25.729 mL/Min [facility] Pharmacy Creatinine Clearance (Chem 28.40 [facility] Nucleated erythrocytes [Pres ence] in Blood by Automated countOrdered By: Laureano Taylor on 11-21-2022 Nucleated RBC Auto Ql (Bld) 0.1 /100{WBC} 0-0.5 [facility] Platelet mean volume Auto (B ld) [Entitic vol]Ordered By: Laureano Taylor on 11-21-2022 Platelet mean volume (Bld) [Entitic vol] 10.2 fL 6.6-10.1 [facility] Platelet poor plasma interna tional normalized ratio (INR) by coagulation assay (relatOrdered By: Laureano Taylor on 11-21-2022 INR Coag (PPP) [Relative time] 1.2 {INR} [facility] Comment on above: INR Therapeutic Rang e A) Pre- and Peroperative OAT started two weeks before surgery. NOT HIP SURGERY: 1.5 - 2.5 HIP SURGERY: 2 - 3B) Primary and secondary prevention of venous THROMBOSIS: 2 - 3C) Active venous thrombosis, pulmonary embolismand prevention of recurrent venous thrombosis: 2 - 3D) Prevention of arterial thromboembolismincluding patients with mechanical heart valves: 3 - 4.5 Platelets Auto (Bld) [#/Vol] Ordered By: Laureano Taylor on 11-21-2022 Platelets (Bld) [#/Vol] 193 10*3/uL 150-450 [facility] Potassium [Moles/volume] in Serum or PlasmaOrdered By: Laureano Taylor on 11-21-2022 Potassium [Moles/Vol] 3.8 mmol/L 3.5-5.1 [facility] Protein Auto test strip (U) [Mass/Vol]Ordered By: Laureano Taylor on 11-21-2022 Protein (U) [Mass/Vol] 30 mg/dL Negative [facility] Protein [Mass/volume] in Ser um or PlasmaOrdered By: Laureano Taylor on 11-21-2022 Protein [Mass/Vol] 6.5 g/dL 6.4-8.9 [facility] RBC Auto (Bld) [#/Vol]Ordere d By: Laureano Taylor on 11-21-2022 RBC (Bld) [#/Vol] 3.64 10*6/uL 3.90-5.60 [facility] Serum or plasma albumin/glob ulin mass ratioOrdered By: Laureano Taylor on 11-21-2022 Albumin/Globulin [Mass ratio] 1.4 {ratio} [facility] Serum or plasma anion gap de terminationOrdered By: Laureano Taylor on 11-21-2022 Anion gap [Moles/Vol] See comment 6.0-15.0 [facility] Comment on above: Specimen hemolyzed, redraw requested Sodium [Moles/volume] in Ser um or PlasmaOrdered By: Laureano Taylor on 11-21-2022 Sodium [Moles/Vol] 131 mmol/L 136-145 [facility] Specific gravity Auto test s trip (U) [Rel density]Ordered By: Laureano Taylor on 11-21-2022 Specific gravity (U) [Rel density] 1.022 1.001-1.03 0 [facility] Squamous epithelial cells de tection in urine sediment by light microscopyOrdered By: Laureano Taylor on 11-21-2022 Epithelial cells.squamous LM Ql (Urine sed) None seen [HPF] 0-2 [facility] Thyrotropin [Units/volume] i n Serum or PlasmaOrdered By: Jennifer Mena on 11-21-2022 TSH Qn 1.57 m[IU]/L 0.45-5.33 [facility] Troponin I.cardiac [Mass/vol ume] in Serum or Plasma by Detection limit <= 0.01 ng/Ordered By: Jennifer Mena on 11-21-2022 Troponin I.cardiac DL <= 0.01 ng/mL [Mass/Vol] 71.6 pg/mL 0.0-20.0 [facility] Comment on above: Critical Result : Ca lled to and read back by: MARIELY DOLAN at: 11/21/2022 19:49:45 by:[id number] Troponin I.cardiac [Mass/vol ume] in Serum or Plasma by Detection limit <= 0.01 ng/Ordered By: Laureano Taylor on 11-21-2022 Troponin I.cardiac DL <= 0.01 ng/mL [Mass/Vol] 89.6 pg/mL 0.0-20.0 [facility] Comment on above: Critical Result : Ca lled to and read back by: MICHAEL DRUMMOND at: 11/21/2022 06:55:11 by:[id number] Urea nitrogen [Mass/volume] in Serum or PlasmaOrdered By: Laureano Taylor on 11-21-2022 Urea nitrogen [Mass/Vol] 37 mg/dL 7-25 [facility] Urine bacteria detection by automated methodOrdered By: Laureano Taylor on 11-21-2022 Bacteria Auto Ql (U) None seen None Seen [facility] Urine clarity by refractomet ry automatedOrdered By: Laureano Taylor on 11-21-2022 Clarity Refractometry automated (U) Cloudy Clear [facility] Urine culture routineOrdered By: Laureano Taylor on 11-21-2022 Bacteria identified Cx Nom (U) 2 Days [facility] Urine glucose measurement by automated test strip (mass/volume)Ordered By: Laureano Taylor on 11-21-2022 Glucose Auto test strip (U) [Mass/Vol] >=1000 mg/dL Normal [facility] Urine hemoglobin detection b y automated test stripOrdered By: Laureano Taylor on 11-21-2022 Hemoglobin Auto test strip Ql (U) Negative Negative [facility] Urine leukocyte esterase det ection by automated test stripOrdered By: Laureano Taylor on 11-21-2022 Leukocyte esterase Auto test strip Ql (U) 3+ Negative [facility] Urobilinogen Auto test strip (U) [Mass/Vol]Ordered By: Laureano Taylor on 11-21-2022 Urobilinogen (U) [Mass/Vol] Normal mg/dL Normal [facility] WBC Auto (Bld) [#/Vol]Ordere d By: Laureano Taylor on 11-21-2022 WBC (Bld) [#/Vol] 7.8 10*3/uL 4.1-10.5 [facility] pH Auto test strip (U)Ordere d By: Laureano Taylor on 11-21-2022 pH (U) 5.0 [pH] 5.0-9.0 [facility] Aspartate aminotransferase [ Enzymatic activity/volume] in Serum or PlasmaOrdered By: Ranjan Quiles on 10-14-2022 AST [Catalytic activity/Vol] 17 U/L 13-39 [facility] Calcium [Mass/volume] in Ser um or PlasmaOrdered By: Ranjan Quiles on 10-14-2022 Calcium [Mass/Vol] 8.7 mg/dL 8.6-10.3 [facility] Carbon dioxide, total [Moles /volume] in Serum or PlasmaOrdered By: Ranjan Quiles on 10-14-2022 CO2 [Moles/Vol] 27.9 mmol/L 21.0-31.0 [facility] Chloride [Moles/volume] in S raiza or PlasmaOrdered By: Ranjan Quiles on 10-14-2022 Chloride [Moles/Vol] 106 mmol/L 98-107 [facility] Creatinine [Mass/volume] in Serum or PlasmaOrdered By: Ranjan Quiles on 10-14-2022 Creatinine [Mass/Vol] 1.62 mg/dL 0.70-1.30 [facility] Glucose [Mass/volume] in Ser um or PlasmaOrdered By: Ranjan Quiles on 10-14-2022 Glucose [Mass/Vol] 103 mg/dL 74-109 [facility] Comment on above: ADA recommended refe rence rangeRandom Glucose Reference Range is dependent on time and content of last meal. Glucose of more than 200 mg/dL in a nonstressed, ambulatory subject supports the diagnosis of Diabetes Mellitus. Laboratory - Chemistry and C hemistry - challengeOrdered By: Ranjan Quiles on 10-14-2022 GFR/1.73 sq M.predicted MDRD (S/P/Bld) [Vol rate/Area] 43.721 mL/min/{1.73_m2} [facility] No Panel InformationOrdered By: Ranjan Quiles on 10-14-2022 Pharmacy Creatinine Clearance (Chem N/A [facility] No Panel Informationon 10-14 43.721\S\43.721 Normal [facility] [address] DO Work Phone: 10.5\S\10.5 Normal 6.0-15.0 [facility] [address] DO Work Phone: 8.7\S\8.7 Normal 8.6-10.3 [facility] [address] DO Work Phone: 27.9\S\27.9 Normal 21.0-31.0 [facility] [address] DO Work Phone: 106\S\106 Normal 98-107 [facility] [place] [address] DO Work Phone: 4.4\S\4.4 Normal 3.5-5.1 [facility] [address] DO Work Phone: 140\S\140 Normal 136-145 [facility] [address] DO Work Phone: 1.62\S\1.62 above high threshold 0.70-1.30 [facility] Prabhu Rae DO Work Phone: 31\S\31 above high threshold 7-25 [facility] Prabhu aRe DO Work Phone: 103\S\103 Normal 74-109 [facility] Prabhu Rae DO Work Phone: Comment on above: Random Glucose Refer ence Range is dependent on time and content of last meal. Glucose of more than 200 mg/dL in a nonstressed, ambulatory subject supports the diagnosis of Diabetes Mellitus. ADA recommended reference range 17\S\17 Normal 13-39 [facility] Prabhu Rae DO Work Phone: 1.51\S\1.51 Normal 0.45-5.33 [facility] Prabhu Rae DO Work Phone: Comment on above: PERFORMED BY:[address] [id number] [place] [place], [place] [id number] MEDICAL DIRECTORPAM BISHOP M.D. Potassium [Moles/volume] in Serum or PlasmaOrdered By: Ranjan Quiles on 10-14-2022 Potassium [Moles/Vol] 4.4 mmol/L 3.5-5.1 [facility] Radiologyon 10-14-2022 XR Chest 2 Views Normal [facility] Prabhu Rae DO Work Phone: Serum or plasma anion gap de terminationOrdered By: Ranjan Quiles on 10-14-2022 Anion gap [Moles/Vol] 10.5 mmol/L 6.0-15.0 [facility] Sodium [Moles/volume] in Ser um or PlasmaOrdered By: Ranjan Quiles on 10-14-2022 Sodium [Moles/Vol] 140 mmol/L 136-145 [facility] Thyrotropin [Units/volume] i n Serum or PlasmaOrdered By: Ranjan Quiles on 10-14-2022 TSH Qn 1.51 m[IU]/L 0.45-5.33 [facility] Urea nitrogen [Mass/volume] in Serum or PlasmaOrdered By: Ranjan Quiles on 10-14-2022 Urea nitrogen [Mass/Vol] 31 mg/dL 7-25 [facility] Albumin [Mass/volume] in Ser um or PlasmaOrdered By: Marli Fermin on 09-11-2022 Albumin [Mass/Vol] 3.1 g/dL 3.2-5.5 [facility] Basophils Auto (Bld) [#/Vol] Ordered By: Kar Blanchard on 09-11-2022 Basophils (Bld) [#/Vol] 0.0 10*3/uL 0.0-0.2 [facility] Basophils/100 WBC Auto (Bld) Ordered By: Kar Blanchard on 09-11-2022 Basophils/100 WBC (Bld) 0.4 % . [facility] Creatinine and Glomerular fi ltration rate.predicted panel (S/P/Bld)Ordered By: Marli Fermin on 09-11-2022 Creatinine [Mass/Vol] 1.50 mg/dL 0.64-1.27 [facility] Eosinophils Auto (Bld) [#/Vo l]Ordered By: Kar Blanchard on 09-11-2022 Eosinophils (Bld) [#/Vol] 0.2 10*3/uL 0.0-0.45 [facility] Eosinophils/100 WBC Auto (Bl d)Ordered By: Kar Blanchard on 09-11-2022 Eosinophils/100 WBC (Bld) 2.3 % . [facility] Erythrocyte distribution wid th Auto (RBC) [Ratio]Ordered By: Kar Blanchard on 09-11-2022 Erythrocyte distribution width (RBC) [Ratio] 13.5 % 12.0-14.8 [facility] Estimated glomerular filtrat ion rate (GFR) non- AmericanOrdered By: Marli Fermin on 09-11-2022 GFR/1.73 sq M.predicted among non-blacks MDRD (S/P/Bld) [Vol rate/Area] 46 mL/Min [facility] Globulin Calc (S) [Mass/Vol] Ordered By: Marli Fermin on 09-11-2022 Globulin (S) [Mass/Vol] 2.2 g/dL [facility] Hematocrit Auto (Bld) [Volum e fraction]Ordered By: Kar Blanchard on 09-11-2022 Hematocrit (Bld) [Volume fraction] 34.6 % 38.8-50.0 [facility] Hemoglobin [Mass/volume] in BloodOrdered By: Kar Blanchard on 09-11-2022 Hemoglobin (Bld) [Mass/Vol] 12.0 g/dL 13.0-17.0 [facility] Leukocytes [#/volume] correc drake for nucleated erythrocytes in Blood by Automated counOrdered By: Kar Blanchard on 09-11-2022 WBC corrected for nucl RBC Auto (Bld) [#/Vol] 8.4 10*3/uL 4.1-10.5 [facility] Lymphocytes Auto (Bld) [#/Vo l]Ordered By: Kar Blanchard on 09-11-2022 Lymphocytes (Bld) [#/Vol] 0.9 10*3/uL 1.00-4.8 [facility] Lymphocytes/100 WBC Auto (Bl d)Ordered By: Kar Blanchard on 09-11-2022 Lymphocytes/100 WBC (Bld) 11.0 % . [facility] MCH Auto (RBC) [Entitic mass ]Ordered By: Kar Blanchard on 09-11-2022 MCH (RBC) [Entitic mass] 33.7 pg 27.5-35.2 [facility] MCHC Auto (RBC) [Mass/Vol]Or dered By: Kar Blanchard on 09-11-2022 MCHC (RBC) [Mass/Vol] 34.7 g/dL 32.5-35.6 [facility] MCV Auto (RBC) [Entitic vol] Ordered By: Kar Blanchard on 09-11-2022 MCV (RBC) [Entitic vol] 96.9 fL 83.5-101 [facility] Monocytes Auto (Bld) [#/Vol] Ordered By: Kar Blanchard on 09-11-2022 Monocytes (Bld) [#/Vol] 1.0 10*3/uL 0.0-0.8 [facility] Monocytes/100 WBC Auto (Bld) Ordered By: Kar Blanchard on 09-11-2022 Monocytes/100 WBC (Bld) 11.5 % . [facility] Neutrophils Auto (Bld) [#/Vo l]Ordered By: Kar Blanchard on 09-11-2022 Neutrophils (Bld) [#/Vol] 6.3 10*3/uL 1.8-7.7 [facility] Neutrophils/100 WBC Auto (Bl d)Ordered By: Kar Blanchard on 09-11-2022 Neutrophils/100 WBC (Bld) 74.8 % . [facility] No Panel InformationOrdered By: Marli Fermin on 09-11-2022 Estimated GFR () 55 mL/Min [facility] Comment on above: GFR estimated refere nce range: According to KDOQI guidelines, <60 ml/min/1.73m2 is sufficient to diagnose a patient with chronic kidney disease. Pharmacy Creatinine Clearance (Chem 46.39 [facility] Nucleated erythrocytes [Pres ence] in Blood by Automated countOrdered By: Kar Blanchard on 09-11-2022 Nucleated RBC Auto Ql (Bld) 0.0 /100{WBC} 0-0.5 [facility] Platelet mean volume Auto (B ld) [Entitic vol]Ordered By: Kar Blanchard on 09-11-2022 Platelet mean volume (Bld) [Entitic vol] 10.5 fL 6.6-10.1 [facility] Platelets Auto (Bld) [#/Vol] Ordered By: Kar Blanchard on 09-11-2022 Platelets (Bld) [#/Vol] 154 10*3/uL 150-450 [facility] Protein [Mass/volume] in Ser um or PlasmaOrdered By: Marli Fermin on 09-11-2022 Protein [Mass/Vol] 5.3 g/dL 6.1-7.9 [facility] RBC Auto (Bld) [#/Vol]Ordere d By: Kar Blanchard on 09-11-2022 RBC (Bld) [#/Vol] 3.57 10*6/uL 3.90-5.60 [facility] Serum or plasma alanine klein otransferase measurement without P-5'-P (enzymatic activiOrdered By: Marli Fermin on 09-11-2022 ALT No additional P-5'-P [Catalytic activity/Vol] 26 U/L 10-60 [facility] Serum or plasma albumin/glob ulin mass ratioOrdered By: Marli Fermin on 09-11-2022 Albumin/Globulin [Mass ratio] 1.4 {ratio} [facility] Serum or plasma alkaline kai sphatase measurement (enzymatic activity/volume)Ordered By: Maril Fermin on 09-11-2022 ALP [Catalytic activity/Vol] 41 U/L 32-92 [facility] Serum or plasma anion gap de terminationOrdered By: Marli Fermin on 09-11-2022 Anion gap [Moles/Vol] 9.3 mmol/L 6.0-15.0 [facility] Serum or plasma aspartate am inotransferase measurement (enzymatic activity/volume)Ordered By: Marli Fermin on 09-11-2022 AST [Catalytic activity/Vol] 19 U/L 10-42 [facility] Serum or plasma calcium jo urement (mass/volume)Ordered By: Marli Fermin on 09-11-2022 Calcium [Mass/Vol] 8.1 mg/dL 8.2-10.2 [facility] Serum or plasma chloride desi surement (moles/volume)Ordered By: Marli Fermin on 09-11-2022 Chloride [Moles/Vol] 105 mmol/L 95-114 [facility] Serum or plasma glucose jo urement (mass/volume)Ordered By: Marli Fermin on 09-11-2022 Glucose [Mass/Vol] 95 mg/dL 70-100 [facility] Comment on above: ADA recommended refe rence rangeRandom Glucose Reference Range is dependent on time and content of last meal. Glucose of more than 200 mg/dL in a nonstressed, ambulatory subject supports the diagnosis of Diabetes Mellitus. Serum or plasma potassium me asurement (moles/volume)Ordered By: Marli Fermin on 09-11-2022 Potassium [Moles/Vol] 3.8 mmol/L 3.5-5.1 [facility] Serum or plasma sodium measu rement (moles/volume)Ordered By: Marli Fermin on 09-11-2022 Sodium [Moles/Vol] 135 mmol/L 136-146 [facility] Serum or plasma total biliru bin measurement (mass/volume)Ordered By: Marli Fermin on 09-11-2022 Bilirubin [Mass/Vol] 1.1 mg/dL 0.3-1.2 [facility] Serum or plasma total carbon dioxide measurement (moles/volume)Ordered By: Marli Fermin on 09-11-2022 CO2 [Moles/Vol] 24.5 mmol/L 22.0-30.0 [facility] Serum or plasma urea nitroge n measurement (mass/volume)Ordered By: Marli Fermin on 09-11-2022 Urea nitrogen [Mass/Vol] 21 mg/dL 9- [facility] WBC Auto (Bld) [#/Vol]Ordere d By: Kar Blanchard on 09-11-2022 WBC (Bld) [#/Vol] 8.4 10*3/uL 4.1-10.5 [facility] Activated partial thrombopla stin time (aPTT) in platelet poor plasma by coagulation aOrdered By: Kar Blanchard on 09-10-2022 aPTT Coag (PPP) [Time] 28.0 s 25.1-36.5 [facility] Laboratory - CoagulationOrde red By: Kar Blanchard on 09-10-2022 PT Coag (PPP) [Time] 13.2 s 9.0-12.9 [facility] Platelet poor plasma interna tional normalized ratio (INR) by coagulation assay (relatOrdered By: Kar Blanchard on 09-10-2022 INR Coag (PPP) [Relative time] 1.1 {INR} [facility] Comment on above: INR Therapeutic Rang e A) Pre- and Peroperative OAT started two weeks before surgery. NOT HIP SURGERY: 1.5 - 2.5 HIP SURGERY: 2 - 3B) Primary and secondary prevention of venous THROMBOSIS: 2 - 3C) Active venous thrombosis, pulmonary embolismand prevention of recurrent venous thrombosis: 2 - 3D) Prevention of arterial thromboembolismincluding patients with mechanical heart valves: 3 - 4.5 Basophils Auto (Bld) [#/Vol] Ordered By: Kar Blanchard on 08-13-2022 Basophils (Bld) [#/Vol] 0.1 10*3/uL 0.0-0.2 [facility] Basophils/100 WBC Auto (Bld) Ordered By: Kar Blanchard on 08-13-2022 Basophils/100 WBC (Bld) 0.7 % . [facility] Creatinine and Glomerular fi ltration rate.predicted panel (S/P/Bld)Ordered By: Kar Blanchard on 08-13-2022 Creatinine [Mass/Vol] 1.47 mg/dL 0.64-1.27 [facility] Eosinophils Auto (Bld) [#/Vo l]Ordered By: Kar Blanchard on 08-13-2022 Eosinophils (Bld) [#/Vol] 0.2 10*3/uL 0.0-0.45 [facility] Eosinophils/100 WBC Auto (Bl d)Ordered By: Kar Blanchard on 08-13-2022 Eosinophils/100 WBC (Bld) 2.6 % . [facility] Erythrocyte distribution wid th Auto (RBC) [Ratio]Ordered By: Kar Blanchard on 08-13-2022 Erythrocyte distribution width (RBC) [Ratio] 13.2 % 12.0-14.8 [facility] Estimated glomerular filtrat ion rate (GFR) non- AmericanOrdered By: Kar Blanchard on 08-13-2022 GFR/1.73 sq M.predicted among non-blacks MDRD (S/P/Bld) [Vol rate/Area] 47 mL/Min [facility] Hematocrit Auto (Bld) [Volum e fraction]Ordered By: Kar Blanchard on 08-13-2022 Hematocrit (Bld) [Volume fraction] 40.1 % 38.8-50.0 [facility] Hemoglobin [Mass/volume] in BloodOrdered By: Kar Blanchard on 08-13-2022 Hemoglobin (Bld) [Mass/Vol] 13.4 g/dL 13.0-17.0 [facility] Leukocytes [#/volume] correc drake for nucleated erythrocytes in Blood by Automated counOrdered By: Kar Blanchard on 08-13-2022 WBC corrected for nucl RBC Auto (Bld) [#/Vol] 6.8 10*3/uL 4.1-10.5 [facility] Lymphocytes Auto (Bld) [#/Vo l]Ordered By: Kar Blanchard on 08-13-2022 Lymphocytes (Bld) [#/Vol] 1.0 10*3/uL 1.00-4.8 [facility] Lymphocytes/100 WBC Auto (Bl d)Ordered By: Kar Blanchard on 08-13-2022 Lymphocytes/100 WBC (Bld) 13.9 % . [facility] MCH Auto (RBC) [Entitic mass ]Ordered By: Kar Blanchard on 08-13-2022 MCH (RBC) [Entitic mass] 32.8 pg 27.5-35.2 [facility] MCHC Auto (RBC) [Mass/Vol]Or dered By: Kar Blanchard on 08-13-2022 MCHC (RBC) [Mass/Vol] 33.5 g/dL 32.5-35.6 [facility] MCV Auto (RBC) [Entitic vol] Ordered By: Kar Blanchard on 08-13-2022 MCV (RBC) [Entitic vol] 97.9 fL 83.5-101 [facility] Monocytes Auto (Bld) [#/Vol] Ordered By: Kar Blanchard on 08-13-2022 Monocytes (Bld) [#/Vol] 0.9 10*3/uL 0.0-0.8 [facility] Monocytes/100 WBC Auto (Bld) Ordered By: Kar Blanchard on 08-13-2022 Monocytes/100 WBC (Bld) 13.7 % . [facility] Neutrophils Auto (Bld) [#/Vo l]Ordered By: Kar Blanchard on 08-13-2022 Neutrophils (Bld) [#/Vol] 4.7 10*3/uL 1.8-7.7 [facility] Neutrophils/100 WBC Auto (Bl d)Ordered By: Kar Blanchard on 08-13-2022 Neutrophils/100 WBC (Bld) 69.1 % . [facility] No Panel InformationOrdered By: Kar Blanchard on 08-13-2022 Estimated GFR () 56 mL/Min [facility] Comment on above: GFR estimated refere nce range: According to KDOQI guidelines, <60 ml/min/1.73m2 is sufficient to diagnose a patient with chronic kidney disease. Pharmacy Creatinine Clearance (Chem N/A [facility] Nucleated erythrocytes [Pres ence] in Blood by Automated countOrdered By: Kar Blanchard on 08-13-2022 Nucleated RBC Auto Ql (Bld) 0.1 /100{WBC} 0-0.5 [facility] Platelet mean volume Auto (B ld) [Entitic vol]Ordered By: Kar Blanchard on 08-13-2022 Platelet mean volume (Bld) [Entitic vol] 10.0 fL 6.6-10.1 [facility] Platelets Auto (Bld) [#/Vol] Ordered By: Kar Blanchard on 08-13-2022 Platelets (Bld) [#/Vol] 202 10*3/uL 150-450 [facility] RBC Auto (Bld) [#/Vol]Ordere d By: Kar Blanchard on 08-13-2022 RBC (Bld) [#/Vol] 4.09 10*6/uL 3.90-5.60 [facility] Serum or plasma anion gap de terminationOrdered By: Kar Blanchard on 08-13-2022 Anion gap [Moles/Vol] 12.8 mmol/L 6.0-15.0 [facility] Serum or plasma calcium jo urement (mass/volume)Ordered By: Kar Blanchard on 08-13-2022 Calcium [Mass/Vol] 8.9 mg/dL 8.2-10.2 [facility] Serum or plasma chloride desi surement (moles/volume)Ordered By: Kar Blanchard on 08-13-2022 Chloride [Moles/Vol] 100 mmol/L 95-114 [facility] Serum or plasma glucose jo urement (mass/volume)Ordered By: Kar Blanchard on 08-13-2022 Glucose [Mass/Vol] 110 mg/dL 70-100 [facility] Comment on above: ADA recommended refe rence rangeRandom Glucose Reference Range is dependent on time and content of last meal. Glucose of more than 200 mg/dL in a nonstressed, ambulatory subject supports the diagnosis of Diabetes Mellitus. Serum or plasma potassium me asurement (moles/volume)Ordered By: Kar Blanchard on 08-13-2022 Potassium [Moles/Vol] 4.2 mmol/L 3.5-5.1 [facility] Serum or plasma sodium measu rement (moles/volume)Ordered By: Kar Blanchard on 08-13-2022 Sodium [Moles/Vol] 132 mmol/L 136-146 [facility] Serum or plasma total carbon dioxide measurement (moles/volume)Ordered By: Kar Blanchard on 08-13-2022 CO2 [Moles/Vol] 23.4 mmol/L 22.0-30.0 [facility] Serum or plasma urea nitroge n measurement (mass/volume)Ordered By: Kar Blanchard on 08-13-2022 Urea nitrogen [Mass/Vol] 24 mg/dL 9-23 [facility] WBC Auto (Bld) [#/Vol]Ordere d By: Kar Blanchard on 08-13-2022 WBC (Bld) [#/Vol] 6.8 10*3/uL 4.1-10.5 [facility] Office Visit (Cardiology)on 06-19-2022 Follow-up visit Diagnoses/Problems Assessed Atrial fibrillation (427.31) (I48.91) High risk medication use (V58.69) (Z79.899) Atherosclerosis of [place] coronary artery of [place] heart without angina pectoris (414.01) (I25.10) History of [place] (myocardial infarction) (412) (I25.2) 1994 Hyperlipidemia (272.4) (E78.5) ICD (implantable cardioverter-defibrillator ) in place (V45.02) (Z95.810) Ischemic cardiomyopathy (414.8) (I25.5) Ventricular tachycardia (427.1) (I47.20) Essential hypertension (401.9) (I10) Former smoker (V15.82) (Z87.891) quit 1974 Class 2 obesity with body mass index (BMI) of 36.0 to 36.9 in adult (278.00,V85.36) (E66.9,Z68.36) Hypothyroidism (244.9) (E03.9) Stage 3 chronic kidney disease (585.3) (N18.30) Dyspnea on exertion (786.09) (R06.09) Chronic systolic CHF (congestive heart failure) (428.22,428.0) (I50.22) Orders Atherosclerosis of [place] coronary artery of [place] heart without angina pectoris, Atrial fibrillation, Chronic systolic CHF (congestive heart failure), Dyspnea on exertion, History of [place] (myocardial infarction), Ischemic cardiomyopathy Disability Placard; Status:Complete - Retrospective Authorization; Done: 19Jun2022 Atherosclerosis of [place] coronary artery of [place] heart without angina pectoris, Hyperlipidemia Lipid Panel; Status:Active - Retrospective Authorization; Requested for:19Jun2022; Atrial fibrillation IO EKG Electrocardiogram- 12 Lead; Status:Complete; Done: 19Jun2022 Class 2 obesity with body mass index (BMI) of 36.0 to 36.9 in adult Healthy Weight Tips; Status:Complete - Retrospective Authorization; Done: 19Jun2022 Some eating tips that can help you lose weight.; Status:Complete - Retrospective Authorization; Done: 19Jun2022 SocHx: Former smoker Tobacco Use Screening; Status:Complete; Done: 19Jun2022 Patient Instructions Please bring all medicines, vitamins, and herbal supplements with you when you come to the office. Prescriptions will not be filled unless you are compliant with your follow up appointments or have a follow up appointment scheduled as per instruction of your physician. Refills should be requested at the time of your visit. Amiodarone follow up per routine Pacemaker/ Defibrillator routine follow-up Follow up in 6 months Chief Complaint SHAWNA HERNANDES is being seen for a 6 month follow-up of. Patient is in the office for follow-up for the problems noted below. His problems were reviewed with him and currently he has no issues of cardiac arrhythmias angina or heart failure symptoms. His weight remains a problem and was discussed again with him today. Because of his heart failure his exercise capacity is diminished. His defibrillator did not demonstrate any recent activities. His amiodarone testing is due in September. He has no toxicities related to this medicine. He denies any bleeding or need for nitroglycerin. ASSESSMENT AND PLAN: 1. Ischemic cardiomyopathy stage C, functional class II. Ejection fraction 24% by nuclear imaging testing March 2018, his cardiac catheterization 1995 revealed 50% LAD stenosis with no prior interventions.. He will remain on Entresto and carvedilol along with the Aldactone as prescribed. 2. Automated implantable cardioverter defibrillator for prevention purposes, being monitored. No recent discharge from the device 3. Hyperlipidemia, on statin therapy. His lipid Profile is scheduled September 2022 4. High-risk medications with amiodarone, which will be monitored closely. No toxicities 5. History of hypertension, presently controlled. 6. Remote history of atrial fibrillation with amiodarone now on board to reduce the chances of this becoming affective. 7. Obesity. Encouraged the patient to drop his weight further with diet and exercise. He gained 13 pounds since last visit 8. March 2018 nuclear stress test revealed no indication of myocardial ischemia. But with extensive myocardial infarction 9. Stage III chronic kidney disease being monitored Ranjan Quiles MD, [facility] Surgical History Problems History of Cardioverter defibrillator insertion History of Colonoscopy 03Aug2012 History of Eye surgery History of Tooth extraction Current Meds Medication NameInstruction Amiodarone HCl - 200 MG Oral TabletTAKE ONE TABLET BY MOUTH DAILY Aspirin EC 81 MG Oral Tablet Delayed ReleaseTAKE 1 TABLET DAILY DIRECTED. Atorvastatin Calcium 80 MG Oral TabletTAKE 1 TABLET DAILY. Biotin 5000 MCG Oral TabletTake 1 tablet daily Bumetanide 1 MG Oral TabletTAKE 1 TABLET DAILY. Carvedilol 25 MG Oral TabletTAKE 1 TABLET Twice daily Clopidogrel Bisulfate 75 MG Oral TabletTAKE 1 TABLET DAILY. Entresto 97-103 MG Oral TabletTake 1 tablet twice daily Fish Oil 1000 MG Oral CapsuleTake 1 capsule twice daily Folic Acid 400 MCG Oral TabletTAKE 1 TABLET DAILY DIRECTED. Levothyroxine Sodium 50 MCG Oral TabletTAKE 1 TABLET DAILY DIRECTED. Lutein TABSTake 1 tablet daily Nitroglycerin 0.4 MG Sublingual (more content not included)... Normal [place] Tobacco Screening.on 022 Fall risk assessment a) No falls within the last year [facility] [employer] DO Work Phone: Tobacco use status [facility] b) No [facility] [employer] DO Work Phone: Creatinine and Glomerular fi ltration rate.predicted panel (S/P/Bld)Ordered By: Ranjan Quiles on 03-25-2022 Creatinine [Mass/Vol] 1.45 mg/dL 0.64-1.27 [facility] Estimated glomerular filtrat ion rate (GFR) non- AmericanOrdered By: Ranjan Quiles on 03-25-2022 GFR/1.73 sq M.predicted among non-blacks MDRD (S/P/Bld) [Vol rate/Area] 47 mL/Min [facility] No Panel InformationOrdered By: Ranjan Quiles on 03-25-2022 Estimated GFR () 57 mL/Min [facility] Comment on above: GFR estimated refere nce range: According to KDOQI guidelines, <60 ml/min/1.73m2 is sufficient to diagnose a patient with chronic kidney disease. Pharmacy Creatinine Clearance (Chem N/A [facility] No Panel InformationOrdered By: Kar Blanchard on 03-25-2022 Prostate Specific Antigen Total 3.090 ng/mL 0.000-4.00 0 [facility] No Panel Informationon 03-25 9.0\S\9.0 Normal 8.2-10.2 -[facility] [place] [address] DO Work Phone: 19.5\S\19.5 below low threshold 22.0-30.0 -[facility] [place] [address] DO Work Phone: 102\S\102 Normal 95-114 [facility] [place] [address] DO Work Phone: 4.4\S\4.4 Normal 3.5-5.1 [facility] [place] [address] DO Work Phone: 135\S\135 below low threshold 136-146 -[facility] [place] [address] DO Work Phone: 57\S\57 Normal [facility] [place] [address] DO Work Phone: Comment on above: GFR estimated refere nce range: According to KDOQI guidelines, <60 ml/min/1.73m2 is sufficient to diagnose a patient with chronic kidney disease. 47\S\47 Normal [facility] [place] [address] DO Work Phone: [phone] 1.45\S\1.45 above high threshold 0.64-1.27 [facility] [place] [address] DO Work Phone: 23\S\23 Normal 9-23 [facility] [place] [address] DO Work Phone: [phone] 107\S\107 above high threshold 70-100 [facility] [place] [address] DO Work Phone: Comment on above: Random Glucose Refer ence Range is dependent on time and content of last meal. Glucose of more than 200 mg/dL in a nonstressed, ambulatory subject supports the diagnosis of Diabetes Mellitus. ADA recommended reference range 27\S\27 Normal 10-42 -[facility] [place] [address] DO Work Phone: 1.48\S\1.48 Normal 0.45-5.33 [facility] [place] [address] DO Work Phone: Comment on above: PERFORMED BY:[facility] [place], [place] [id number] MEDICAL DIRECTORPAM BISHOP M.D. Serum or plasma aspartate am inotransferase measurement (enzymatic activity/volume)Ordered By: Ranjan Quiles on 03-25-2022 AST [Catalytic activity/Vol] 27 U/L 10-42 [facility] Serum or plasma calcium jo urement (mass/volume)Ordered By: Ranjan Quiles on 03-25-2022 Calcium [Mass/Vol] 9.0 mg/dL 8.2-10.2 [facility] Serum or plasma chloride desi surement (moles/volume)Ordered By: Ranjan Quiles on 03-25-2022 Chloride [Moles/Vol] 102 mmol/L 95-114 [facility] Serum or plasma glucose jo urement (mass/volume)Ordered By: Ranjan Quiles on 03-25-2022 Glucose [Mass/Vol] 107 mg/dL 70-100 [facility] Comment on above: ADA recommended refe rence range Random Glucose Reference Range is dependent on time and content of last meal. Glucose of more than 200 mg/dL in a nonstressed, ambulatory subject supports the diagnosis of Diabetes Mellitus. Serum or plasma potassium me asurement (moles/volume)Ordered By: Ranjan Quiles on 03-25-2022 Potassium [Moles/Vol] 4.4 mmol/L 3.5-5.1 [facility] Serum or plasma sodium measu rement (moles/volume)Ordered By: Ranjan Quiles on 03-25-2022 Sodium [Moles/Vol] 135 mmol/L 136-146 [facility] Serum or plasma total carbon dioxide measurement (moles/volume)Ordered By: Ranjan Quiles on 03-25-2022 CO2 [Moles/Vol] 19.5 mmol/L 22.0-30.0 [facility] Serum or plasma urea nitroge n measurement (mass/volume)Ordered By: Ranjan Quiles on 03-25-2022 Urea nitrogen [Mass/Vol] 23 mg/dL 04-25 [facility] TSH DL <= 0.005 mIU/L QnOrde red By: Ranjan Quiles on 03-25-2022 TSH Qn 1.48 m[IU]/L 0.45-5.33 [facility] BNPon 03-04-2022 Natriuretic peptide B (Bld) [Mass/Vol] 472.0 pg/mL Normal <=1,800.0 [facility] Comment on above: Performed By: #### B SUPERVISOR DEHYDROGENATION, CMP, HSTROPN #### [facility] [address] [place] [address] Dr. Thomas Ferguson CBC AUTO DIFFon 03-04-2022 BASO # 0.0 103/ul Normal 0.0-0.1 [facility] Comment on above: Performed By: #### C BC #### [facility] [address] [place] [address] Dr. Thomas Ferguson Basophils/100 WBC (Bld) 0.2 % Normal 0.2-2.0 [facility] Comment on above: Performed By: #### C BC #### [facility] [address] [place] [address] Dr. Thomas Ferguson EO # 0.0 103/ul Normal 0.0-0.7 [facility] Comment on above: Performed By: #### C BC #### [facility] [address] [place] [address] Dr. Thomas Ferguson Eosinophils/100 WBC (Bld) 0.7 % Critically low 0.9-7.0 [facility] Comment on above: Performed By: #### C BC #### [facility] [address] [place] [address] Dr. Thomas Ferguson Erythrocyte distribution width (RBC) [Ratio] 13.2 % Normal 11.0-15.0 [facility] Comment on above: Performed By: #### C BC #### [facility] [address] [place] [address] Dr. Thomas Ferguson Hematocrit (Bld) [Volume fraction] 38.4 % Critically low 42.0-54.0 [facility] Comment on above: Performed By: #### C BC #### [facility] [address] [place] [address] Dr. Thomas Ferguson Hemoglobin (Bld) [Mass/Vol] 12.8 g/dL Critically low 14.0-18.0 [facility] Comment on above: Performed By: #### C BC #### [facility] [address] [place] [address] Dr. Thomas Ferguson IG # 0.02 10e3/ul Normal 0.00-0.03 [facility] Comment on above: Performed By: #### C BC #### [facility] [address] [place] [address] Dr. Thomas Ferguson IG % 0.4 % Normal 0.0-0.5 [facility] Comment on above: Performed By: #### C BC #### [facility] [address] [place] [address] Dr. Thomas Ferguson LYMPH # 1.0 103/ul Critically low 1.2-3.8 [facility] Comment on above: Performed By: #### C BC #### [facility] [address] [place] [address] Dr. Thomas Ferguson Lymphocytes/100 WBC (Bld) 18.1 % Critically low 20.5-60.0 [facility] Comment on above: Performed By: #### C BC #### [facility] [address] [place] [address] Dr. Thomas Ferguson MANUAL DIFF REQ NO Normal [facility] Comment on above: Performed By: #### C BC #### [facility] [address] [place] [address] Dr. Thomas Ferguson MCH (RBC) [Entitic mass] 32.6 pg Normal 25.9-34.0 [facility] Comment on above: Performed By: #### C BC #### [facility] [address] [place] [address] Dr. Thomas Ferguson MCHC (RBC) [Mass/Vol] 33.3 g/dL Normal 29.9-35.2 [facility] Comment on above: Performed By: #### C BC #### [facility] [address] [place] [address] Dr. Thomas Ferguson MCV (RBC) [Entitic vol] 97.7 fL Critically high 80.0-94.0 [facility] Comment on above: Performed By: #### C BC #### [facility] [address] [place] [address] Dr. Thomas Ferguson MONO # 0.9 103/ul Critically high 0.3-0.8 [facility] Comment on above: Performed By: #### C BC #### [facility] [address] [place] [address] Dr. Thomas Ferguson Monocytes/100 WBC (Bld) 16.4 % Critically high 1.7-12.0 [facility] Comment on above: Performed By: #### C BC #### [facility] [address] [place] [address] Dr. Thomas Ferguson NEUT # 3.5 103/ul Normal 1.4-6.5 [facility] Comment on above: Performed By: #### C BC #### [facility] [address] [place] [address] Dr. Thomas Ferguson Neutrophils/100 WBC (Bld) 64.2 % Normal 43.0-75.0 [facility] Comment on above: Performed By: #### C BC #### [facility] [address] [place] [address] Dr. Thomas Ferguson Platelet mean volume (Bld) [Entitic vol] 11.0 fL Normal 9.5-13.5 [facility] [facility] Comment on above: Performed By: #### C BC #### [facility] [address] [place] [address] Dr. Thomas Ferguson PLT 172 103/ul Normal 150-450 [facility] Comment on above: Performed By: #### C BC #### [facility] [address] [address] [address] Thomas Ferguson RBC 3.93 106/ul Critically low 4.70-6.10 [facility] Comment on above: Performed By: #### C BC #### [facility] [address] [address] [address] Thomas Ferguson WBC 5.4 103/ul Normal 4.0-11.0 [facility] Comment on above: Performed By: #### C BC #### [facility] [address] [place] [address] Dr. Thomas Ferguson PROF 14(COMP METB)on 022 Albumin [Mass/Vol] 3.3 g/dL Critically low 3.4-5.0 [facility] Comment on above: Performed By: #### B SUPERVISOR DEHYDROGENATION, CMP, HSTROPN #### [facility] [address] [address] [address] Thomas Ferguson Albumin/Globulin [Mass ratio] 1.1 {ratio} Normal [facility] Comment on above: Performed By: #### B SUPERVISOR DEHYDROGENATION, CMP, HSTROPN #### [facility] [address] [place] [address] Dr. Thomas Ferguson ALP [Catalytic activity/Vol] 54 U/L Normal 46-116 [facility] Comment on above: Performed By: #### B SUPERVISOR DEHYDROGENATION, CMP, HSTROPN #### [facility] [address] [place] [address] Dr. Thomas Ferguson ALT [Catalytic activity/Vol] 175 U/L Critically high 16-63 [facility] Comment on above: Performed By: #### B SUPERVISOR DEHYDROGENATION, CMP, HSTROPN #### [facility] [address] [address] [address] Thomas Ferguson Anion gap [Moles/Vol] 13.9 mmol/L Normal [facility] Comment on above: Performed By: #### B SUPERVISOR DEHYDROGENATION, CMP, HSTROPN #### [facility] [address] [address] [address] Thomas Ferguson AST [Catalytic activity/Vol] 81 U/L Critically high 15-37 [facility] Comment on above: Performed By: #### B SUPERVISOR DEHYDROGENATION, CMP, HSTROPN #### [facility] [address] [address] [address] Thomas Ferguson Bilirubin [Mass/Vol] 0.4 mg/dL Normal 0.2-1.0 [facility] Comment on above: Performed By: #### B SUPERVISOR DEHYDROGENATION, CMP, HSTROPN #### [facility] [address] [place] [address] Dr. Thomas Ferguson Calcium [Mass/Vol] 8.0 mg/dL Critically low 8.5-10.1 [facility] Comment on above: Performed By: #### B SUPERVISOR DEHYDROGENATION, CMP, HSTROPN #### [facility] [address] [place] [address] Dr. Thomas Ferguson Chloride [Moles/Vol] 104 mmol/L Normal 98-107 [facility] Comment on above: Performed By: #### B SUPERVISOR DEHYDROGENATION, CMP, HSTROPN #### [facility] [address] [place] [address] Dr. Thomas Ferguson CO2 [Moles/Vol] 25.0 mmol/L Normal 21.0-32.0 [facility] Comment on above: Performed By: #### B SUPERVISOR DEHYDROGENATION, CMP, HSTROPN #### [facility] [address] [place] [address] Dr. Thomas Ferguson Creatinine [Mass/Vol] 1.65 mg/dL Critically high 0.70-1.30 [facility] Comment on above: Performed By: #### B SUPERVISOR DEHYDROGENATION, CMP, HSTROPN #### [facility] [address] [place] [address] Dr. Thomas Ferguson EGFR-AF PALAUAN 49 mL/min/1.73m2 Critically low >=60 [facility] Comment on above: Performed By: #### B SUPERVISOR DEHYDROGENATION, CMP, HSTROPN #### [facility] [address] [place] [address] Dr. Thomas Ferguson EGFR-NON AF PALAUAN 41 mL/min/1.73m2 Critically low >=60 [facility] Comment on above: Performed By: #### B SUPERVISOR DEHYDROGENATION, CMP, HSTROPN #### [facility] [address] [address] [address] Thomas Ferguson Globulin (S) [Mass/Vol] 3.1 g/dL Normal [facility] Comment on above: Performed By: #### B SUPERVISOR DEHYDROGENATION, CMP, HSTROPN #### [facility] [address] [address] [address] Thomas Ferguson Glucose [Mass/Vol] 128 mg/dL Critically high 74-[address] [facility] Comment on above: Performed By: #### B SUPERVISOR DEHYDROGENATION, CMP, HSTROPN #### [facility] [address] [address] [address] Thomas Ferguson Potassium [Moles/Vol] 3.9 mmol/L Normal 3.5-5.1 [facility] Comment on above: Performed By: #### B SUPERVISOR DEHYDROGENATION, CMP, HSTROPN #### [facility] [address] [address] [address] Thomas Ferguson Protein [Mass/Vol] 6.4 g/dL Normal 6.4-8.2 [facility] Comment on above: Performed By: #### B SUPERVISOR DEHYDROGENATION, CMP, HSTROPN #### [facility] [address] [address] [address] Thomas Ferguson Sodium [Moles/Vol] 139 mmol/L Normal 136-145 [facility] Comment on above: Performed By: #### B SUPERVISOR DEHYDROGENATION, CMP, HSTROPN #### [facility] [address] [address] [address] Thomas Ferguson Urea nitrogen [Mass/Vol] 28.0 mg/dL Critically high 7.0-18.0 [facility] Comment on above: Performed By: #### B SUPERVISOR DEHYDROGENATION, CMP, HSTROPN #### [facility] [address] [address] [address] Thomas Ferguson Urea nitrogen/Creatinine [Mass ratio] 17.0 mg/mg Normal [facility] Comment on above: Performed By: #### B SUPERVISOR DEHYDROGENATION, CMP, HSTROPN #### [facility] [address] [place] [address] Dr. Thomas Ferguson PROTIMEon 03-04-2022 INR Coag (PPP) [Relative time] 1.00 {INR} Normal [facility] Comment on above: Performed By: #### P T, PTT #### [facility] [address] [place] [address] Dr. Thomas Ferguson INR GUIDELINES SEE BELOW Normal [facility] Comment on above: Result Comment: LE RED INR: 2.0 - 3.0 CONDITIONS NOT LISTED BELOW 2.5 - 3.5 FOR PROSTHETIC HEART VALVE REPLACEMENT 2.5 - 3.5 RECURRENT THROMBOSIS Performed By: #### P T, PTT #### [facility] [address] [place] [address] Dr. Thomas Ferguson PT Coag (PPP) [Time] 10.8 s Normal 9.0-11.6 [facility] Comment on above: Performed By: #### P T, PTT #### [facility] [address] [place] [address] Dr. Thomas Ferguson PTTon 03-04-2022 aPTT Coag (Bld) [Time] 27.6 s Normal 22.3-36.2 [facility] Comment on above: Performed By: #### P T, PTT #### [facility] [address] [place] [address] Dr. Thomas Ferguson TROPONIN, HIGH SENSITIVITYon 03-04-2022 HSTROP 12.3 pg/mL Normal 4.0-76.1 [facility] Comment on above: Result Comment: CUT- OFF POINTS HAVE BEEN ESTABLISHED BASED ON THE FOURTH UNIVERSAL DEFINITIONS OF MYOCARDIAL INFARCTION. THE UPPER REFERENCE LIMIT (URL) OF TROPONIN, DEFINED THE 99TH PERCENTILE OF cTnI DISTRIBUTION IN A REFERENCE POPULATION, HAS BEEN CONFIRMED THE DECISION THRESHOLD FOR [place] DIAGNOSIS. Performed By: #### B SUPERVISOR DEHYDROGENATION, CMP, HSTROPN #### [facility] [address] [place] [address] Dr. Thomas Ferguson XR CHEST 1 Von 03-04-2022 XR CHEST 1 V EXAMINATION: XR CHES T 1 V HISTORY: SHORTNESS OF BREATH COMPARISON: No relevant comparison available. FINDINGS: LUNGS: No significant pulmonary parenchymal abnormalities. VASCULATURE: No increased pulmonary vasculature. PLEURA: No pneumothorax, effusion, or pleural thickening. CARDIAC: No cardiomegaly or cardiac silhouette abnormality. MEDIASTINUM: No visible mass or adenopathy. BONES: No fracture or visible bone lesion. OTHER: Stable cardiac pacer. IMPRESSION: 1. Low lung volume examination. 2. No acute cardiopulmonary process. Electronically authenticated by: KALIE NEWTON Date: 2022-03-04 13:50 Normal [facility] Tobacco Screening.on 022 Adult depression screening assessment No [facility] [employer] [address] DO Work Phone: Fall risk assessment a) No falls within the last year [facility] [place] [address] DO Work Phone: Tobacco use status [facility]PH[facility] b) No [facility] [place] [address] DO Work Phone: CBC (INCLUDES DIFF/PLT)on Basophils (Bld) [#/Vol] 0.074 10*3/uL Normal 0-200 [facility] Comment on above: Performed By: #### 6 399, 718, 39628, 622, 41375, 496, 7600, 905 #### [facility] [address] [place] [employer]: Nate Vuong MD Basophils/100 WBC (Bld) 1.0 % Normal [facility] Comment on above: Performed By: #### 6 399, 718, 30475, 622, 60344, 496, 7600, 905 #### [facility] [address], [address] [place], [place] [id number] [employer]: Nate Vuong MD Eosinophils (Bld) [#/Vol] 0.274 10*3/uL Normal 15-500 [facility] Comment on above: Performed By: #### 6 399, 718, 66529, 622, 39350, 496, 7600, 905 #### [facility] [address] [address] [employer] [place] [employer]: Nate Vuong MD Eosinophils/100 WBC (Bld) 3.7 % Normal [facility] Comment on above: Performed By: #### 6 399, 718, 32889, 622, 22922, 496, 7600, 905 #### [facility] [address] [place] [address] [employer] [place] [employer]: Nate Vuong MD Erythrocyte distribution width (RBC) [Ratio] 12.8 % Normal 11.0-15.0 [facility] Comment on above: Performed By: #### 6 399, 718, 60380, 622, 86197, 496, 7600, 905 #### [facility] [address] [place] [address] [employer] [place] [employer]: Nate Vuong MD Hematocrit (Bld) [Volume fraction] 39.2 % Normal 38.5-50.0 [facility] Comment on above: Performed By: #### 6 399, 718, 97191, 622, 75092, 496, 7600, 905 #### [facility] [address] [place] [address] [employer]: Nate Vuong MD Hemoglobin (Bld) [Mass/Vol] 13.6 g/dL Normal 13.2-17.1 [facility] Comment on above: Performed By: #### 6 399, 718, 59628, 622, 04109, 496, 7600, 905 #### [facility] [address] [place] [address] [employer] [place] [employer]: Nate Vuong MD Lymphocytes (Bld) [#/Vol] 1.184 10*3/uL Normal 850-3900 [facility] Comment on above: Performed By: #### 6 399, 718, 87578, 622, 19625, 496, 7600, 905 #### [facility] [address] [place] [address] [employer]: Nate Vuong MD Lymphocytes/100 WBC (Bld) 16.0 % Normal [facility] Comment on above: Performed By: #### 6 399, 718, 35805, 622, 35167, 496, 7600, 905 #### [facility] [address] [place] [address] [employer]: Nate Vuong MD MCH (RBC) [Entitic mass] 33.1 pg High 27.0-33.0 [facility] Comment on above: Performed By: #### 6 399, 718, 27096, 622, 08127, 496, 7600, 905 #### [facility] [address] [place] [address] [employer]: Nate Vuong MD MCHC (RBC) [Mass/Vol] 34.7 g/dL Normal 32.0-36.[address] [facility] Comment on above: Performed By: #### 6 399, 718, 33170, 622, 96106, 496, 7600, 905 #### [facility] [address] [place] [address] [employer] [place] Operator: Nate Vuong MD MCV (RBC) [Entitic vol] 95.4 fL Normal 80.0-100.0 [facility] Comment on above: Performed By: #### 6 399, 718, 88584, 622, 49499, 496, 7600, 905 #### [facility] [address] [place] [address] [employer]: Nate Vuong MD Monocytes (Bld) [#/Vol] 0.777 10*3/uL Normal 200-950 [facility] Comment on above: Performed By: #### 6 399, 718, 30350, 622, 47823, 496, 7600, 905 #### [facility] [place] [address] [employer] Operator: Nate Vuong MD Monocytes/100 WBC (Bld) 10.5 % Normal [facility] Comment on above: Performed By: #### 6 399, 718, 58234, 622, 97393, 496, 7600, 905 #### [facility] [address] [place] [address] [employer] [place] Operator: Nate Vuong MD Neutrophils (Bld) [#/Vol] 5.091 10*3/uL Normal 6488-9782 [facility] Comment on above: Performed By: #### 6 399, 718, 66067, 622, 02337, 496, 7600, 905 #### [facility] [address] [place] [address] [employer] [place] Operator: Nate Vuong MD Neutrophils/100 WBC (Bld) 68.8 % Normal [facility] Comment on above: Performed By: #### 6 399, 718, 44375, 622, 33241, 496, 7600, 905 #### [facility] [address] [place] [address] [employer]: Nate Vuong MD Platelet mean volume (Bld) [Entitic vol] 12.3 fL Normal 7.5-12.5 [facility] Comment on above: Performed By: #### 6 399, 718, 53639, 622, 51130, 496, 7600, 905 #### [facility] [address] [place] [address] [employer]: Nate Vuong MD Platelets (Bld) [#/Vol] 224 10*3/uL Normal 140-400 [facility] Comment on above: Performed By: #### 6 399, 718, 73839, 622, 58852, 496, 7600, 905 #### [facility] [address] [place] [address] [employer]: Nate Vuong MD RBC (Bld) [#/Vol] 4.11 10*6/uL Low 4.20-5.80 [facility] Comment on above: Performed By: #### 6 399, 718, 61415, 622, 61994, 496, 7600, 905 #### [facility] [address] [place] [address] [employer] [place] [employer]: Nate Vuong MD WBC (Bld) [#/Vol] 7.4 10*3/uL Normal 3.8-10.8 [facility] Comment on above: Performed By: #### 6 399, 718, 98435, 622, 65135, 496, 7600, 905 #### [facility] [place] [address] [employer] [place] Operator: Nate Vuong MD COMPREHENSIVE METABOLIC PANE [facility] 10-19-2021 Albumin [Mass/Vol] 4.1 g/dL Normal 3.6-5.1 [facility] Comment on above: Performed By: #### 6 399, 718, 50484, 622, 86943, 496, 7600, 905 #### [facility] [place] [address] [employer] Operator: Nate Vuong MD Albumin/Globulin [Mass ratio] 1.8 {ratio} Normal 1.0-2.5 [facility] Comment on above: Performed By: #### 6 399, 718, 56195, 622, 07711, 496, 7600, 905 #### [facility] [place] [address] [employer]: Nate Vuong MD ALP [Catalytic activity/Vol] 68 U/L Normal 35-144 [facility] Comment on above: Performed By: #### 6 399, 718, 32372, 622, 65545, 496, 7600, 905 #### [facility] [address] [place] [address] [employer] [place] Operator: Nate Vuong MD ALT [Catalytic activity/Vol] 23 U/L Normal 9-46 [facility] Comment on above: Performed By: #### 6 399, 718, 67379, 622, 51200, 496, 7600, 905 #### [facility] [place] [address] [employer] [place] [employer]: Nate Vuong MD AST [Catalytic activity/Vol] 19 U/L Normal 10-35 [facility] Comment on above: Performed By: #### 6 399, 718, 10571, 622, 07329, 496, 7600, 905 #### [facility] [place] [address] [employer] Operator: Nate Vuong MD Bilirubin [Mass/Vol] 0.8 mg/dL Normal 0.2-1.2 [facility] Comment on above: Performed By: #### 6 399, 718, 02489, 622, 94163, 496, 7600, 905 #### [facility] [place] [address] [employer] Operator: Nate Vuong MD Calcium [Mass/Vol] 9.1 mg/dL Normal 8.6-10.3 [facility] Comment on above: Performed By: #### 6 399, 718, 83247, 622, 53900, 496, 7600, 905 #### [facility] [place] [address] [employer]: Nate Vuong MD Chloride [Moles/Vol] 104 mmol/L Normal 98-110 [facility] Comment on above: Performed By: #### 6 399, 718, 43436, 622, 58835, 496, 7600, 905 #### [facility] [place] [address] [employer] Operator: Nate Vuong MD CO2 [Moles/Vol] 25 mmol/L Normal 20-32 [facility] Comment on above: Performed By: #### 6 399, 718, 73973, 622, 28515, 496, 7600, 905 #### [facility] [place] [address] [employer]: Nate Vuong MD Creatinine [Mass/Vol] 1.48 mg/dL High 0.70-1.[address] [facility] Comment on above: Result Comment: For patients >49 years of age, the reference limit for Creatinine is approximately 13% higher for people identified as -Bahamian. Performed By: #### 6 399, 718, 09191, 622, 35540, 496, 7600, 905 #### [facility] [place] [address] [employer] Operator: Nate Vuong MD eGFR NON-AFR. PALAUAN 46 mL/min/1.73m2 Low > OR = 60 [facility] Comment on above: Performed By: #### 6 399, 718, 60617, 622, 90472, 496, 7600, 905 #### [facility] [place] [address] [employer] Operator: Nate Vuong MD GFR/1.73 sq M.predicted among blacks MDRD (S/P/Bld) [Vol rate/Area] 53 mL/min/{1.73_m2} Low > OR = 60 [facility] Comment on above: Performed By: #### 6 399, 718, 36141, 622, 41368, 496, 7600, 905 #### [facility] [place] [address] [employer]: Nate Vuong MD Globulin (S) [Mass/Vol] 2.3 g/dL Normal 1.9-3.7 [facility] Comment on above: Performed By: #### 6 399, 718, 38245, 622, 40443, 496, 7600, 905 #### [facility] [place] [address] [employer]: Nate Vuong MD Glucose [Mass/Vol] 121 mg/dL High 65-99 [facility] Comment on above: Result Comment: Fasting reference interval For someone without known diabetes, a glucose value between 100 and 125 mg/dL is consistent with prediabetes and should be confirmed with a follow-up test. Performed By: #### 6 399, 718, 19670, 622, 63721, 496, 7600, 905 #### [facility] [place] [address] [employer] [place] Operator: Nate Vuong MD Potassium [Moles/Vol] 4.3 mmol/L Normal 3.5-5.[address] [facility] Comment on above: Performed By: #### 6 399, 718, 39728, 622, 59594, 496, 7600, 905 #### [facility] [place] [address] [employer] Operator: Nate Vuong MD Protein [Mass/Vol] 6.4 g/dL Normal 6.1-8.1 [facility] Comment on above: Performed By: #### 6 399, 718, 72322, 622, 55999, 496, 7600, 905 #### [facility] [place] [address] [employer] Operator: Nate Vuong MD Sodium [Moles/Vol] 139 mmol/L Normal 135-146 [facility] Comment on above: Performed By: #### 6 399, 718, 43044, 622, 64591, 496, 7600, 905 #### [facility] [place] [address] [employer] [place] Operator: Nate Vuong MD Urea nitrogen [Mass/Vol] 21 mg/dL Normal 7-25 [facility] Comment on above: Performed By: #### 6 399, 718, 33156, 622, 09659, 496, 7600, 905 #### [facility] [place] [address] [employer] Operator: Nate Vuong MD Urea nitrogen/Creatinine [Mass ratio] 14 mg/mg Normal 6-22 [facility] Comment on above: Performed By: #### 6 399, 718, 53673, 622, 40595, 496, 7600, 905 #### [facility] [place] [address] [employer] Operator: Nate Vuong MD HEMOGLOBIN A1con 03-19-2022 HEMOGLOBIN A1c 6.1 % of total Hgb High <5.7 [facility] Comment on above: Result Comment: For someone without known diabetes, a hemoglobin A1c value between 5.7% and 6.4% is consistent with prediabetes and should be confirmed with a follow-up test. For someone with known diabetes, a value <7% indicates that their diabetes is well controlled. A1c targets should be individualized based on duration of diabetes, age, comorbid conditions, and other considerations. This assay result is consistent with an increased risk of diabetes. Currently, no consensus exists regarding use of hemoglobin A1c for diagnosis of diabetes for children. Performed By: #### 6 399, 718, 55884, 622, 94659, 496, 7600, 905 #### [facility] [address], [address] [place] [address] [employer]: Nate Vuong MD LIPID PANEL, STANDARDon 10-01 Cholesterol [Mass/Vol] 127 mg/dL Normal <200 [facility] Comment on above: Order Comment: FASTI NG:YES FASTING: YES Performed By: #### 6 399, 718, 07292, 622, 17175, 496, 7600, 905 #### [facility] [address], [address] [place] [address] [employer]: Nate Vuong MD Cholesterol in HDL [Mass/Vol] 42 mg/dL Normal > OR = 40 [facility] Comment on above: Order Comment: FASTI NG:YES FASTING: YES Performed By: #### 6 399, 718, 30290, 622, 00312, 496, 7600, 905 #### [facility] [address], [address] [place] [address] [employer]: Nate Vuong MD Cholesterol in LDL [Mass/Vol] 64 mg/dL Normal [facility] Comment on above: Order Comment: FASTI NG:YES FASTING: YES Result Comment: Refe rence range: <100 Desirable range <100 mg/dL for primary prevention; <70 mg/dL for patients with CHD or diabetic patients with > or = 2 CHD risk factors. LDL-C is now calculated using the [facility] calculation, which is a validated novel method providing better accuracy than the Friedewald equation in the estimation of LDL-C. Franck SS et al. KALPESH. 2013;310(19): 7705-2072 (http://education.[employer]/faq/FEW274) Performed By: #### 6 399, 718, 85657, 622, 04272, 496, 7600, 905 #### [facility] [place] [address] [employer] Operator: Nate Vuong MD Cholesterol.total/Chol esterol in HDL [Mass ratio] 3.0 {ratio} Normal <5.0 [facility] Comment on above: Order Comment: FASTI NG:YES FASTING: YES Performed By: #### 6 399, 718, 77538, 622, 42397, 496, 7600, 905 #### [facility] [address], [address] [place] [address] [employer] [place] Operator: Nate Vuong MD NON HDL CHOLESTEROL 85 mg/dL (calc) Normal <130 [facility] Comment on above: Order Comment: FASTI NG:YES FASTING: YES Result Comment: For patients with diabetes plus 1 major ASCVD risk factor, treating to a non-HDL-C goal of <100 mg/dL (LDL-C of <70 mg/dL) is considered a therapeutic option. Performed By: #### 6 399, 718, 90854, 622, 84392, 496, 7600, 905 #### [facility] [address], [address] [place] [address] [employer] Operator: Nate Vuong MD Triglyceride [Mass/Vol] 119 mg/dL Normal <150 [facility] Comment on above: Order Comment: FASTI NG:YES FASTING: YES Performed By: #### 6 399, 718, 50410, 622, 06049, 496, 7600, 905 #### [facility] [address], [address] [place] [address] [employer] Operator: Nate Vuong MD MAGNESIUMon 10-19-2021 Magnesium [Mass/Vol] 2.4 mg/dL Normal 1.5-2.5 [facility] Comment on above: Performed By: #### 6 399, 718, 69879, 622, 96907, 496, 7600, 905 #### [facility] [address], [address] [place] [address] [employer] Operator: Nate Vuong MD PHOSPHATE ( PHOSPHORUS)on 10-19-2021 Phosphate [Mass/Vol] 3.9 mg/dL Normal 2.1-4.3 [facility] Comment on above: Performed By: #### 6 399, 718, 12188, 622, 96678, 496, 7600, 905 #### [facility] [place] [address] [employer] Operator: Nate Vuong MD PTH, INTACT WITHOUT CALCIUMo n 10-19-2021 PARATHYROID HORMONE, INTACT 53 pg/mL Normal 16-77 [facility] Comment on above: Result Comment: Interpretive Guide Intact PTH Calcium ------- Normal Parathyroid Normal Normal Hypoparathyroidism Low or Low Normal Low Hyperparathyroidism Primary Normal or High High Secondary High Normal or Low Tertiary High High Non-Parathyroid Hypercalcemia Low or Low Normal High Performed By: #### 6 399, 718, 74691, 622, 36385, 496, 7600, 905 #### [facility] [place] [address] [employer] [place] Operator: Nate Vuong MD URIC ACIDon 10-19-2021 Urate [Mass/Vol] 4.9 mg/dL Normal 4.0-8.0 [facility] Comment on above: Result Comment: Ther apeutic target for gout patients: <6.0 mg/dL Performed By: #### 6 399, 718, 20059, 622, 02348, 496, 7600, 905 #### [facility] [place] [address] [employer] [place] Operator: Nate Vuong MD VITAMIN D,25-OH,TOTAL,IAon 0 10-19-2021 VITAMIN D,25-OH,TOTAL,IA 29 ng/mL Low 30-100 [facility] Comment on above: Result Comment: Alexa min D Status 25-OH Vitamin D: Deficiency: <20 ng/mL Insufficiency: 20 - 29 ng/mL Optimal: > or = 30 ng/mL For 25-OH Vitamin D testing on patients on D2-supplementation and patients for whom quantitation of D2 and D3 fractions is required, the QuestAssure[facility](TM) 25-OH VIT D, (D2,D3), LC/MS/MS is recommended: order code 21299 (patients >2yrs). See Note 1 Note 1 For additional information, please refer to http://education.[employer]/faq/IGU538 (This link is being provided for informational/ educational purposes only.) Performed By: #### 6 399, 718, 53527, 622, 18128, 496, 7600, 905 #### [facility] [address], [address] [place] [id number] [employer]: Nate Vuong MD No Panel Informationon 09-16 9.0\S\9.0 Normal 8.2-10.2 [facility] [address] DO Work Phone: 27.3\S\27.3 Normal 22.0-30.0 [facility] [address] DO Work Phone: [phone] 00 101\S\101 Normal 95-114 [facility] [address] DO Work Phone: [phone] 4.6\S\4.6 Normal 3.5-5.1 [facility] [facility] [place] [facility] DO Work Phone: [phone] 137\S\137 Normal 136-146 [facility] [place] [facility] DO Work Phone: [phone] 54\S\54 Normal [facility] [place] [address] DO Work Phone: Comment on above: GFR estimated refere nce range: According to KDOQI guidelines, <60 ml/min/1.73m2 is sufficient to diagnose a patient with chronic kidney disease. 45\S\45 Normal [facility] Prabhu corley 250 DO Work Phone: [phone] 1.52\S\1.52 above high threshold 0.64-1.27 [facility] Prabhu corley 250 DO Work Phone: [phone] 19\S\19 Normal 9-23 [facility] Prabhu Rae DO Work Phone: [phone] 132\S\132 above high threshold 70-100 [facility] Prabhu Rae DO Work Phone: [phone] Comment on above: Random Glucose Refer ence Range is dependent on time and content of last meal. Glucose of more than 200 mg/dL in a nonstressed, ambulatory subject supports the diagnosis of Diabetes Mellitus. ADA recommended reference range 22\S\22 Normal 10-42 [facility] Prabhu Rae DO Work Phone: [phone] 1.36\S\1.36 Normal 0.45-5.33 [facility] Prabhu Rae DO Work Phone: Comment on above: PERFORMED BY:[place] [address] [address] [place], [place] [id number] MEDICAL DIRECTORPAM BISHOP M.D. Radiologyon 09-16-2021 XR Chest 2 Views Normal [facility] Prabhu Rae DO Work Phone: Falls Risk Screeningon 06-26 Fall risk assessment a) No falls within the last year [facility] Prabhu Rae DO Work Phone: Tobacco Screening.on Fall risk assessment a) No falls within the last year [facility] Prabhu Rae DO Work Phone: Tobacco use status CPHS b) No [facility] Prabhu Rae DO Work Phone: No Panel Informationon 05-14 3.79\S\3.79 Normal 0.45-5.33 [facility] [address] DO Work Phone: Comment on above: PERFORMED BY:[facility] [place] [id number] MEDICAL DIRECTORPAM BISHOP M.D. ALT (SGPT)on 08-20-2017 ALT enzyme act/vol 28 U/L Normal 10-52 [facility] Comment on above: Performed By: #### 1 [id number] ####[facility] [address] [place] [address] AST (SGOT)on 08-20-2017 AST enzyme act/vol 25 U/L Normal 13-39 [facility] Comment on above: Performed By: #### 1 [id number] ####[facility] [address] [place] [address] Creatinineon 08-20-2017 Creatinine mass conc 1.23 mg/dL Normal 0.50-1.30 [facility] Comment on above: Performed By: #### 1 [id number] ####[facility] [address] [place] [address] GFR/1.73 sq M.predicted MDRD vol rate/area 58 mL/min/{1.73_m2} Normal [facility] Comment on above: Result Comment: Inte rpretation for Chronic Kidney Disease:Stages 1&2 >60 Healthy or potential kidney damage.Mild decrease of GFR.Stage 3 30-59 Moderate decrease of GFR.Stage 4 15-29 Severe decrease of GFR.Stage 5 <15 Kidney failure or on dialysis. Performed By: #### 1 [id number] ####[facility] [address] [place] [address] Electrolyte Panelon 08-20-19 18 Anion gap 3 molar conc 13 mmol/L Normal 10-20 [facility] Comment on above: Performed By: #### 1 [id number] ####[facility] [address] [place] [address] Chloride molar conc 103 mmol/L Normal 98-107 [facility] Comment on above: Performed By: #### 1 [id number] ####[facility] [address] [place] [address] HCO3 molar conc (Bld) 26 mmol/L Normal 21-32 [facility] Comment on above: Performed By: #### 1 [id number] ####[facility] [address] [place] [address] Potassium molar conc 4.1 mmol/L Normal 3.5-5.1 [facility] Comment on above: Performed By: #### 1 [id number] ####[facility] [address] [place] [address] Sodium molar conc 138 mmol/L Normal 136-145 [facility] Comment on above: Performed By: #### 1 [id number] ####[facility] [address] [place] [address] Lipid Panelon 08-20-2017 Cholesterol in HDL mass conc 43 mg/dL Normal [facility] Comment on above: Result Comment: Norm al Mod Risk High Risk5-9 >48 42-48 <4210- 14 >45 40-45 <4015-19 >38 34-38 <34Adult >39 Performed By: #### 1 [id number] ####[facility] [address] [place] [address] Cholesterol in LDL mass conc 79 mg/dL Normal <130 [facility] Comment on above: Performed By: #### 1 [id number] ####[facility] [address] [place] [address] Cholesterol in VLDL mass conc 37 mg/dL Abnormal <30 [facility] Comment on above: Performed By: #### 1 [id number] ####[facility] [address] [place] [address] Cholesterol mass conc 159 mg/dL Normal <200 [facility] Comment on above: Performed By: #### 1 [id number] ####[facility] [address] [place] [address] Cholesterol.total/Chol esterol in HDL mass ratio 3.7 {ratio} Normal [facility] Comment on above: Performed By: #### 1 [id number] ####[facility] [address] [place] [address] Triglyceride mass conc 185 mg/dL Abnormal <150 [facility] Comment on above: Result Comment: 150- 199 Borderline [id number] High>500 Very High Performed By: #### 1 [id number] ####[facility] [address] [place] [address] Urea Nitrogenon 08-20-2017 Urea nitrogen mass conc 25 mg/dL High 6-23 [facility] Comment on above: Performed By: #### 1 [id number] ####[facility] [address] [place] [address] Vital Signs Date Time Vital Sign Value Performing Clinician Facility 09-06-2024 11:46-0500 Body temperature 97.5 [degF] Agus Furlong DO Work Phone: [facility] 09-06-2024 11:46-0500 Diastolic blood pressure 72 mm[Hg] Agus Furlong DO Work Phone: [facility] 09-06-2024 11:46-0500 Heart rate 60 /min Agus Furlong DO Work Phone: [facility] 09-06-2024 11:46-0500 Respiratory rate 18 /min Agus Furlong DO Work Phone: [facility] 09-06-2024 11:46-0500 SaO2% (BldA) [Mass fraction] 99 % Agus Furlong DO Work Phone: [facility] 09-06-2024 11:46-0500 Systolic blood pressure 109 mm[Hg] Agus Furlong D O Work Phone: [facility] 09-06-2024 06:29-0500 Body weight 81.9 kg Agus Furlong DO Work Phone: [facility] 09-02-2024 12:50-0500 Body height 172.72 cm Agus Furlong DO Work Phone: [facility] 09-01-2024 20:09-0500 Body temperature 97.8 [degF] Agus Furlong DO Work Phone: [facility] 09-01-2024 20:09-0500 Diastolic blood pressure 54 mm[Hg] Agus Furlong DO Work Phone: [facility] 09-01-2024 20:09-0500 Heart rate 62 /min Agus Furlong DO Work Phone: [facility] 09-01-2024 20:09-0500 Respiratory rate 18 /min Agus Furlong DO Work Phone: [facility] 09-01-2024 20:09-0500 SaO2% (BldA) [Mass fraction] 97 % Agus Furlong DO Work Phone: [facility] 09-01-2024 20:09-0500 Systolic blood pressure 96 mm[Hg] Agus Furlong D O Work Phone: [facility] 09-01-2024 15:34-0500 Body height 177.8 cm Agus Furlong DO Work Phone: [facility] 09-01-2024 15:34-0500 Body weight 80.4 kg Agus Furlong DO Work Phone: [facility] 08-15-2024 13:58-0500 Body height 167.6 cm Ranjan Quiles MD Work Phone: [facility] 08-15-2024 13:58-0500 Body mass index (BMI) [Ratio] 29.34 kg/m2 Ranjan Quiles MD Work Phone: [facility] 08-15-2024 13:58-0500 Body weight 82.46 kg Ranjan Quiles MD Work Phone: [facility] 08-15-2024 13:58-0500 Diastolic blood pressure 50 mm[Hg] Ranjan Quiles MD Work Phone: [facility] 08-15-2024 13:58-0500 Heart rate 63 /min Ranjan Quiles MD Work Phone: [facility] 08-15-2024 13:58-0500 Systolic blood pressure 118 mm[Hg] Ranjan Adams Work Phone: [facility] 07-29-2024 17:14-0500 Body temperature 97.81 [degF] Agus Furlong DO Work Phone: [facility] 07-29-2024 17:14-0500 Diastolic blood pressure 68 mm[Hg] Agus Furlong DO Work Phone: [facility] 07-29-2024 17:14-0500 Heart rate 58 /min Agus Furlong DO Work Phone: [facility] 07-29-2024 17:14-0500 Respiratory rate 16 /min Agus Furlong DO Work Phone: [facility] 07-29-2024 17:14-0500 SaO2% (BldA) [Mass fraction] 96 % Agus Furlong DO Work Phone: [facility] 07-29-2024 17:14-0500 Systolic blood pressure 114 mm[Hg] Agus Furlong D O Work Phone: [facility] 07-22-2024 17:22-0500 Body temperature 97.3 [degF] Augs Furlong DO Work Phone: [facility] 07-22-2024 17:22-0500 Diastolic blood pressure 50 mm[Hg] Agus Furlong DO Work Phone: [facility] 07-22-2024 17:22-0500 Heart rate 59 /min Agus Furlong DO Work Phone: [facility] 07-22-2024 17:22-0500 SaO2% (BldA) [Mass fraction] 94 % Agus Furlong DO Work Phone: [facility] 07-22-2024 17:22-0500 Systolic blood pressure 84 mm[Hg] Agus Nation Angie Dean Work Phone: [facility] 07-14-2024 07:00-0500 SaO2% (BldA) [Mass fraction] 97 % AGUSRAPHAEL HARRISONHALEY [facility] Comment on above: Order Comment: Specimen Type: ARTERIAL B LOOD SPECIMENOrdering Facility: [facility] Address: [address] [place] [address] Performed By: #### A LLBG ####[facility] LABCLIA [id number] [address] [place] 07-13-2024 11:00-0500 SaO2% (BldA) [Mass fraction] 100 % [facility] Comment on above: Order Comment: Specimen Type: ARTERIAL B LOOD SPECIMENOrdering Facility: [facility] Address: [address] [place] [address] Performed By: #### A LLMG ####[facility] LABCLIA [id number] [place] [address] [place] 07-08-2024 13:19-0500 Body height 167.6 cm Pac 6 Work Phone: [facility] 07-08-2024 13:19-0500 Body mass index (BMI) [Ratio] 29.07 kg/m2 Pac 6 Work Phone: [facility] 07-08-2024 13:19-0500 Body temperature 96.3 [degF] Pac 6 Work Phone: [facility] 07-08-2024 13:19-0500 Body weight 81.7 kg Pac 6 Work Phone: [facility] 07-08-2024 13:19-0500 Diastolic blood pressure 48 mm[Hg] Pac 6 Work Phone: [facility] 07-08-2024 13:19-0500 Heart rate 59 /min Pacc 6 Work Phone: [facility] 07-08-2024 13:19-0500 Respiratory rate 18 /min Pacc 6 Work Phone: [facility] 07-08-2024 13:19-0500 SaO2% (BldA) [Mass fraction] 100 % Pacc 6 Work Phone: [facility] 07-08-2024 13:19-0500 Systolic blood pressure 102 mm[Hg] Pacc 6 Work Phone: [facility] 07-08-2024 09:42-0500 Diastolic blood pressure 46 mm[Hg] Jacobo gregory MD Work Phone: [facility] 07-08-2024 09:42-0500 Systolic blood pressure 87 mm[Hg] Jacobo Velez MD Work Phone: [facility] 07-08-2024 09:40-0500 Body height 167.6 cm Jacobo Velez MD Work Phone: [facility] 07-08-2024 09:40-0500 Body mass index (BMI) [Ratio] 28.41 kg/m2 Jacobo Velez MD Work Phone: [facility] 07-08-2024 09:40-0500 Body weight 79.83 kg Jacobo Velez MD Work Phone: [facility] 07-08-2024 09:40-0500 Heart rate 60 /min Jacobo Velez MD Work Phone: [facility] 07-08-2024 09:40-0500 Respiratory rate 16 /min Jacobo Velez MD Work Phone: [facility] 07-08-2024 09:40-0500 SaO2% (BldA) [Mass fraction] 99 % Jacobo Velez MD Work Phone: [facility] 06-24-2024 16:16-0500 Diastolic blood pressure 61 mm[Hg] Agus Furlong DO Work Phone: [facility] 06-24-2024 16:16-0500 Heart rate 60 /min Agus Furlong DO Work Phone: [facility] 06-24-2024 16:16-0500 Systolic blood pressure 96 mm[Hg] Agus Furlong D O Work Phone: [facility] 06-17-2024 14:42-0500 Body temperature 98.1 [degF] Agus Furlong DO Work Phone: [facility] 06-17-2024 14:42-0500 Diastolic blood pressure 59 mm[Hg] Agus Furlong DO Work Phone: [facility] 06-17-2024 14:42-0500 Heart rate 60 /min Agus Furlong DO Work Phone: [facility] 06-17-2024 14:42-0500 Respiratory rate 16 /min Agus Furlong DO Work Phone: [facility] 06-17-2024 14:42-0500 SaO2% (BldA) [Mass fraction] 95 % Agus Furlong DO Work Phone: [facility] 06-17-2024 14:42-0500 Systolic blood pressure 101 mm[Hg] Agus Furlong D O Work Phone: [facility] 06-10-2024 21:41-0500 Body mass index (BMI) [Ratio] 30.44 kg/m2 Agus Furlong DO Work Phone: [facility] 06-10-2024 21:41-0500 Body temperature 97.59 [degF] Agus Furlong DO Work Phone: [facility] 06-10-2024 21:41-0500 Body weight 85.55 kg Agus Furlong DO Work Phone: [facility] 06-10-2024 21:41-0500 Diastolic blood pressure 69 mm[Hg] Agus Quilesng DO Work Phone: [facility] [employer] 06-10-2024 21:41-0500 Heart rate 60 /min Agus Quilesng DO Work Phone: [facility] 06-10-2024 21:41-0500 Respiratory rate 16 /min Agus Harrisonlong DO Work Phone: [facility] 06-10-2024 21:41-0500 SaO2% (BldA) [Mass fraction] 96 % Agus Quilesng DO Work Phone: [facility] [employer] 06-10-2024 21:41-0500 Systolic blood pressure 106 mm[Hg] Agus Nation D O Work Phone: [facility] 06-07-2024 10:24-0500 Body mass index (BMI) [Ratio] 30.14 kg/m2 Escobar Givens MD Work Phone: [facility] 06-07-2024 10:24-0500 Body temperature 96.6 [degF] Escobar Givens MD Work Phone: [facility] 06-07-2024 10:24-0500 Body weight 84.7 kg Escobar Givens MD Work Phone: [facility] 06-07-2024 10:24-0500 Diastolic blood pressure 58 mm[Hg] Escobar Givens MD Work Phone: [facility] 06-07-2024 10:24-0500 Heart rate 60 /min Escobar Givens MD Work Phone: [facility] 06-07-2024 10:24-0500 Respiratory rate 16 /min Escobar Givens MD Work Phone: [facility] 06-07-2024 10:24-0500 SaO2% (BldA) [Mass fraction] 100 % Escobar Givens MD Work Phone: [facility] 06-07-2024 10:24-0500 Systolic blood pressure 105 mm[Hg] Escobar Givens MD Work Phone: [facility] 06-03-2024 21:53-0400 Body temperature 97.7 [degF] Agus Furlong DO Work Phone: [facility] 06-03-2024 21:53-0400 Diastolic blood pressure 67 mm[Hg] Agus Furlong DO Work Phone: [facility] 06-03-2024 21:53-0400 Heart rate 60 /min Agus Furlong DO Work Phone: [facility] 06-03-2024 21:53-0400 Respiratory rate 16 /min Agus Furlong DO Work Phone: [facility] 06-03-2024 21:53-0400 SaO2% (BldA) [Mass fraction] 96 % Agus Furlong DO Work Phone: [facility] 06-03-2024 21:53-0400 Systolic blood pressure 108 mm[Hg] Agus Furlong D O Work Phone: [facility] 05-27-2024 14:25-0400 Body height 167.6 cm Ranjan Quiles MD Work Phone: [facility] 05-27-2024 14:25-0400 Body mass index (BMI) [Ratio] 30.83 kg/m2 Ranjan Quiles MD Work Phone: [facility] 05-27-2024 14:25-0400 Body weight 86.64 kg Ranjan Quiles MD Work Phone: [facility] 05-27-2024 14:25-0400 Diastolic blood pressure 62 mm[Hg] Ranjan Quiles MD Work Phone: [facility] 05-27-2024 14:25-0400 Heart rate 86 /min Ranjan Quiles MD Work Phone: [facility] 05-27-2024 14:25-0400 Systolic blood pressure 116 mm[Hg] Ranjan Adams Work Phone: [facility] 05-25-2024 10:42-0400 Blood Pressure Location Jyoti Lue [facility] 05-25-2024 10:42-0400 Diastolic blood pressure 66 mm[Hg] Jyoti Lue [facility] 05-25-2024 10:42-0400 Heart rate 72 /min Jyoti Lue [facility] 05-25-2024 10:42-0400 Systolic blood pressure 120 mm[Hg] Jyoti Lue [facility] 05-20-2024 18:58-0400 Body temperature 97.81 [degF] [facility] 05-20-2024 18:58-0400 Diastolic blood pressure 80 mm[Hg] Agus Furlong DO Work Phone: [facility] 05-20-2024 18:58-0400 Heart rate 74 /min Agus Furlong DO Work Phone: [facility] 05-20-2024 18:58-0400 Respiratory rate 16 /min [facility]us Furlong [facility] 05-20-2024 18:58-0400 SaO2% (BldA) [Mass fraction] 96 % Agus Furlong DO [facility] 05-20-2024 18:58-0400 Systolic blood pressure 144 mm[Hg] Agus Furlong D O [facility] 05-11-2024 18:28-0400 Body mass index (BMI) [Ratio] 29.89 kg/m2 Agus Furlong DO Work Phone: [facility] 05-11-2024 18:28-0400 Body temperature 98.29 [degF] Agus Furlong DO Work Phone: [facility] 05-11-2024 18:28-0400 Body weight 84.01 kg Agus Furlong DO Work Phone: [facility] 05-11-2024 18:28-0400 Diastolic blood pressure 68 mm[Hg] Agus Furlong DO Work Phone: [facility] 05-11-2024 18:28-0400 Heart rate 76 /min Agus Furlong DO Work Phone: [facility] 05-11-2024 18:28-0400 SaO2% (BldA) [Mass fraction] 97 % Agus Furlong DO Work Phone: [facility] 05-11-2024 18:28-0400 Systolic blood pressure 112 mm[Hg] Agus Furlong D O Work Phone: [facility] 03-20-2024 11:06-0400 Body temperature 97.8 [degF] DO Agus Furlong Work Phone: [facility] 03-20-2024 11:06-0400 Diastolic blood pressure 71 mm[Hg] DO Agus Furlo ng Work Phone: [facility] 03-20-2024 11:06-0400 Heart rate 58 /min DO Agus Furlong Work Phone: [facility] 03-20-2024 11:06-0400 Respiratory rate 18 /min DO Agus Furlong Work Phone: [facility] 03-20-2024 11:06-0400 SaO2% (BldA) [Mass fraction] 96 % DO Agus Furlong Work Phone: [facility] 03-20-2024 11:06-0400 Systolic blood pressure 122 mm[Hg] DO Agus Furlon g Work Phone: [facility] 03-20-2024 06:23-0400 Body weight 102.5 kg DO Agus Furlong Work Phone: [facility] 03-17-2024 12:57-0400 Body height 172.72 cm DO Agus Furlong Work Phone: [facility] 03-14-2024 20:46-0400 Body temperature 97.5 [degF] DO Agus Furlong Work Phone: [facility] 03-14-2024 20:46-0400 Diastolic blood pressure 51 mm[Hg] DO Agus Furlo ng Work Phone: [facility] 03-14-2024 20:46-0400 Heart rate 60 /min DO Agus Furlong Work Phone: [facility] 03-14-2024 20:46-0400 Respiratory rate 19 /min DO Agus Furlong Work Phone: [facility] 03-14-2024 20:46-0400 SaO2% (BldA) [Mass fraction] 96 % DO Agus Furlong Work Phone: [facility] 03-14-2024 20:46-0400 Systolic blood pressure 94 mm[Hg] DO Agus Furlon g Work Phone: [facility] 03-14-2024 08:48-0400 Body height 172.72 cm DO Agus Furlong Work Phone: [facility] 03-14-2024 08:48-0400 Body weight 91.17 kg DO Agus Furlong Work Phone: [facility] 02-19-2024 11:03-0400 Body height 172.72 cm DO Praful Kassidy Work Phone: [facility] 02-08-2024 16:59-0400 Diastolic blood pressure 58 mm[Hg] DO Praful Kassidy Work Phone: [facility] 02-08-2024 16:59-0400 Heart rate 60 /min DO Praful Kassidy Work Phone: [facility] 02-08-2024 16:59-0400 Respiratory rate 16 /min DO Praful Kassidy Work Phone: [facility] 02-08-2024 16:59-0400 SaO2% (BldA) [Mass fraction] 98 % DO Parful Kassidy Work Phone: [facility] 02-08-2024 16:59-0400 Systolic blood pressure 112 mm[Hg] DO Praful Kassidy Work Phone: [facility] 02-08-2024 13:30-0400 Body temperature 97.7 [degF] DO Praful Kassidy Work Phone: [facility] 02-08-2024 13:24-0400 Body height 167.64 cm DO Praful Kassidy Work Phone: [facility] 02-08-2024 13:24-0400 Body weight 93.6 kg DO Praful Kassidy Work Phone: [facility] 12-25-2023 09:37-0400 Body height 172.7 cm Ranjan Quiles MD Work Phone: [facility] 12-25-2023 09:37-0400 Body mass index (BMI) [Ratio] 31.05 kg/m2 Ranjan Quiles MD Work Phone: [facility] 12-25-2023 09:37-0400 Body weight 92.63 kg Ranjan Quiles MD Work Phone: [facility] 12-25-2023 09:37-0400 Diastolic blood pressure 82 mm[Hg] Ranjan Quiles MD Work Phone: [facility] 12-25-2023 09:37-0400 Heart rate 60 /min Ranjan Quiles MD Work Phone: [facility] 12-25-2023 09:37-0400 Systolic blood pressure 120 mm[Hg] Ranjan Adams Work Phone: [facility] 12-11-2023 10:17-0400 Diastolic blood pressure 63 mm[Hg] DO Agus Furlo ng Work Phone: [facility] 12-11-2023 10:17-0400 Heart rate 72 /min DO Agus Furlong Work Phone: [facility] 12-11-2023 10:17-0400 Respiratory rate 12 /min DO Agus Furlong Work Phone: [facility] 12-11-2023 10:17-0400 SaO2% (BldA) [Mass fraction] 97 % DO Agus Furlong Work Phone: [facility] 12-11-2023 10:17-0400 Systolic blood pressure 120 mm[Hg] DO Agus Furlon g Work Phone: [facility] 12-11-2023 09:06-0400 Body temperature 98 [degF] DO Agus Furlong Work Phone: [facility] 12-11-2023 08:58-0400 Body height 172.72 cm DO Agus Furlong Work Phone: [facility] 12-11-2023 08:58-0400 Body weight 91.7 kg DO Agus Furlong Work Phone: [facility] 12-08-2023 09:32-0400 Body height 167.6 cm Agus Furlong DO Work Phone: [facility] 12-08-2023 09:32-0400 Body mass index (BMI) [Ratio] 32.81 kg/m2 Agus Furlong DO Work Phone: [facility] 12-08-2023 09:32-0400 Body weight 92.22 kg Agus Furlong DO Work Phone: [facility] 12-08-2023 09:32-0400 Diastolic blood pressure 78 mm[Hg] Agus Furlong DO Work Phone: [facility] 12-08-2023 09:32-0400 Systolic blood pressure 128 mm[Hg] Agus Furlong D O Work Phone: [facility] 10-20-2023 14:55-0400 Diastolic blood pressure 61 mm[Hg] DO Agus Furlo ng Work Phone: [facility] 10-20-2023 14:55-0400 Heart rate 60 /min DO Agus Furlong Work Phone: [facility] 10-20-2023 14:55-0400 Respiratory rate 16 /min DO Agus Furlong Work Phone: [facility] 10-20-2023 14:55-0400 SaO2% (BldA) [Mass fraction] 97 % DO Agus Furlong Work Phone: [facility] 10-20-2023 14:55-0400 Systolic blood pressure 110 mm[Hg] DO Agus Furlon g Work Phone: [facility] 10-20-2023 13:03-0400 Body height 167.64 cm DO Agus Furlong Work Phone: [facility] 10-20-2023 13:03-0400 Body weight 58.51 kg DO Agus Furlong Work Phone: [facility] 10-13-2023 10:50-0400 Body height 167.64 cm DO Agus Furlong Work Phone: [facility] 10-13-2023 10:50-0400 Body mass index (BMI) [Ratio] 32.1 kg/m2 DO Agus Nation Work Phone: [facility] 10-13-2023 10:50-0400 Body weight 90.26 kg DO Agus Nation Work Phone: [facility] 10-01-2023 11:01-0500 Body height 167.6 cm Ranjan Quiles MD Work Phone: [facility] 10-01-2023 11:01-0500 Body mass index (BMI) [Ratio] 32.6 kg/m2 Ranjan Quiles MD Work Phone: [facility] 10-01-2023 11:01-0500 Body weight 91.63 kg Ranjan Quiles MD Work Phone: [facility] 10-01-2023 11:01-0500 Diastolic blood pressure 60 mm[Hg] Ranjan Quiles MD Work Phone: [facility] 10-01-2023 11:01-0500 Heart rate 60 /min Ranjan Quiles MD Work Phone: [facility] 10-01-2023 11:01-0500 Systolic blood pressure 100 mm[Hg] Ranjan Adams Work Phone: [facility] 08-27-2023 15:36-0500 Body height 167.6 cm Lois Nguyễn APRN-COMMUNITY OUTREACH DIRECTOR Work Phone: [facility] 08-27-2023 15:36-0500 Body mass index (BMI) [Ratio] 31.96 kg/m2 Lois Nguyễn LANCE CREWMEMBER-COMMUNITY OUTREACH DIRECTOR Work Phone: [facility] 08-27-2023 15:36-0500 Body temperature 97 [degF] Lois Nguyễn LANCE CREWMEMBER-COMMUNITY OUTREACH DIRECTOR Work Phone: [facility] 08-27-2023 15:36-0500 Body weight 89.81 kg Lois Nguyễn LANCE CREWMEMBER-COMMUNITY OUTREACH DIRECTOR Work Phone: [facility] 08-27-2023 15:36-0500 Diastolic blood pressure 58 mm[Hg] Lois Nguyễn LANCE CREWMEMBER-COMMUNITY OUTREACH DIRECTOR Work Phone: [facility] 08-27-2023 15:36-0500 Heart rate 60 /min Lois Nguyễn LANCE CREWMEMBER-COMMUNITY OUTREACH DIRECTOR Work Phone: [facility] 08-27-2023 15:36-0500 SaO2% (BldA) [Mass fraction] 97 % Lois Nguyễn LANCE CREWMEMBER-COMMUNITY OUTREACH DIRECTOR Work Phone: [facility] 08-27-2023 15:36-0500 Systolic blood pressure 114 mm[Hg] Lois Nguyễn LANCE CREWMEMBER-COMMUNITY OUTREACH DIRECTOR Work Phone: [facility] 07-21-2023 11:34-0500 Diastolic blood pressure 56 mm[Hg] DO Agus Furlo ng Work Phone: [facility] 07-21-2023 11:34-0500 Heart rate 60 /min DO Agus Furlong Work Phone: [facility] 07-21-2023 11:34-0500 Respiratory rate 16 /min DO Agus Furlong Work Phone: [facility] 07-21-2023 11:34-0500 SaO2% (BldA) [Mass fraction] 97 % DO Agus Furlong Work Phone: [facility] 07-21-2023 11:34-0500 Systolic blood pressure 110 mm[Hg] DO Agus Furlon g Work Phone: [facility] 07-21-2023 09:40-0500 Body height 167.64 cm DO Agus Furlong Work Phone: [facility] 07-21-2023 09:40-0500 Body temperature 97.9 [degF] DO Agus Furlong Work Phone: [facility] 07-21-2023 09:40-0500 Body weight 90.26 kg DO Agusraphael Harrisonranjitsaumya Work Phone: [facility] 06-23-2023 10:43-0500 Diastolic blood pressure 60 mm[Hg] Ranjan Quiles MD Work Phone: [facility] 06-23-2023 10:43-0500 Systolic blood pressure 98 mm[Hg] Ranjan Adams Work Phone: [facility] 06-23-2023 10:41-0500 Body height 167.6 cm Ranjan Quiles MD Work Phone: [facility] 06-23-2023 10:41-0500 Body mass index (BMI) [Ratio] 33.25 kg/m2 Ranjan Quiles MD Work Phone: [facility] 06-23-2023 10:41-0500 Body weight 93.44 kg Ranjan Quiles MD Work Phone: [facility] 06-23-2023 10:41-0500 Heart rate 64 /min Ranjan Quiles MD Work Phone: [facility] 05-26-2023 11:24-0400 Diastolic blood pressure 60 mm[Hg] Ranjan Quiles MD Work Phone: [facility] 05-26-2023 11:24-0400 Systolic blood pressure 100 mm[Hg] Ranjan Adams Work Phone: [facility] 05-26-2023 11:04-0400 Heart rate 80 /min Ranjan Quiles MD Work Phone: [facility] 05-26-2023 10:58-0400 Body height 170.2 cm Ranjan Quiles MD Work Phone: [facility] 05-26-2023 10:58-0400 Body mass index (BMI) [Ratio] 32.58 kg/m2 Ranjan Quiles MD Work Phone: [facility] 05-26-2023 10:58-0400 Body weight 94.35 kg Ranjan Quiles MD Work Phone: [facility] 05-20-2023 10:26-0400 Blood Pressure Location Jyoti Lue [facility] 05-20-2023 10:26-0400 Diastolic blood pressure 84 mm[Hg] Jyoti Lue [facility] 05-20-2023 10:26-0400 Systolic blood pressure 124 mm[Hg] Jyoti Lue [facility] 04-17-2023 15:57-0400 Diastolic blood pressure 71 mm[Hg] DO Agus Furlo ng Work Phone: [facility] 04-17-2023 15:57-0400 Heart rate 60 /min DO Agus Furlong Work Phone: [facility] 04-17-2023 15:57-0400 Respiratory rate 16 /min DO Agus Furlong Work Phone: [facility] 04-17-2023 15:57-0400 SaO2% (BldA) [Mass fraction] 97 % DO Agus Furlong Work Phone: [facility] 04-17-2023 15:57-0400 Systolic blood pressure 131 mm[Hg] DO Agus Furlon g Work Phone: [facility] 04-17-2023 12:36-0400 Body height 168.91 cm DO Agus Furlong Work Phone: [facility] 04-17-2023 12:36-0400 Body temperature 97.7 [degF] DO Agus Furlong Work Phone: [facility] 04-17-2023 12:36-0400 Body weight 93.89 kg DO Agus Furlong Work Phone: [facility] 04-01-2023 11:02-0400 Diastolic blood pressure 66 mm[Hg] DO Agus Furlo ng Work Phone: [facility] 04-01-2023 11:02-0400 Heart rate 60 /min DO Agus Furlong Work Phone: [facility] 04-01-2023 11:02-0400 Respiratory rate 18 /min DO Agus Furlong Work Phone: [facility] 04-01-2023 11:02-0400 SaO2% (BldA) [Mass fraction] 95 % DO Agus Furlong Work Phone: [facility] 04-01-2023 11:02-0400 Systolic blood pressure 121 mm[Hg] DO Agus Furlon g Work Phone: [facility] 04-01-2023 09:21-0400 Body height 167.64 cm DO Agus Furlong Work Phone: [facility] 04-01-2023 09:21-0400 Body temperature 97.9 [degF] DO Agus Furlong Work Phone: [facility] 04-01-2023 09:21-0400 Body weight 96.6 kg DO Agus Furlong Work Phone: [facility] 03-27-2023 09:40-0400 Body height 170.18 cm Agus G Furlong Work Phone: [facility] [employer] 320 DO Work Phone: 03-27-2023 09:40-0400 Body mass index (BMI) [Ratio] 33.2 kg/m2 Agus G Furlong Work Phone: [facility] [employer] 320 DO Work Phone: 03-27-2023 09:40-0400 Body surface area Derived from formula 2.07 m2 Agus G Furlong Work Phone: [facility] [employer] 320 DO Work Phone: 03-27-2023 09:40-0400 Body weight 96.16 kg Agus G Furlong [facility]: [email or web address] DO Work Phone: 03-27-2023 09:40-0400 Diastolic blood pressure 68 mm[Hg] Agus G Furlon g Work Phone: [facility] DO Work Phone: 03-27-2023 09:40-0400 Systolic blood pressure 120 mm[Hg] [facility]us G Furlong [facility] DO Work Phone: 03-13-2023 12:00-0400 Diastolic blood pressure 67 mm[Hg] DO Agus Furlo ng Work Phone: [facility] 03-13-2023 12:00-0400 Heart rate 60 /min DO Agus Furlong Work Phone: [facility] 03-13-2023 12:00-0400 Respiratory rate 20 /min DO Agus Furlong Work Phone: [facility] 03-13-2023 12:00-0400 SaO2% (BldA) [Mass fraction] 94 % DO Agus Furlong Work Phone: [facility] 03-13-2023 12:00-0400 Systolic blood pressure 139 mm[Hg] DO Agus Furlon g Work Phone: [facility] 03-13-2023 06:16-0400 Body weight 98.4 kg DO Agus Furlong Work Phone: [facility] 03-12-2023 14:30-0400 Body temperature 97.9 [degF] DO Agus Furlong Work Phone: [facility] 03-10-2023 14:40-0400 Body height 167.64 cm DO Agus Furlong Work Phone: [facility] 03-09-2023 13:19-0400 Inhaled oxygen flow rate 4 L/min DO Agus Furlo ng Work Phone: [facility] 12-17-2022 07:10-0400 Body height 170.1 cm Rose Ding MD Work Phone: [facility] 12-17-2022 07:10-0400 Body mass index (BMI) [Ratio] 33.28 kg/m2 Rose Ding MD Work Phone: [facility] 12-17-2022 07:10-0400 Body weight 96.3 kg Rose Ding MD Work Phone: [facility] 12-09-2022 09:28-0400 Diastolic blood pressure 70 mm[Hg] Agus Quilesn g Work Phone: [facility] [employer] 250 DO Work Phone: 12-09-2022 09:28-0400 Systolic blood pressure 96 mm[Hg] Agus G Furlong Work Phone: [facility] [employer] 250 DO Work Phone: 12-09-2022 09:26-0400 Body height 170.18 cm Agus G Furlong Work Phone: [facility] [employer] 250 DO Work Phone: 12-09-2022 09:26-0400 Body mass index (BMI) [Ratio] 32.89 kg/m2 Agus G Furlong Work Phone: [facility] [employer] 250 DO Work Phone: 12-09-2022 09:26-0400 Body surface area Derived from formula 2.06 m2 Agus G Furlong Work Phone: [facility] [employer] 250 DO Work Phone: 12-09-2022 09:26-0400 Body weight 95.26 kg Agus G Furlong Work Phone: [facility] [employer] 250 DO Work Phone: 12-09-2022 09:26-0400 Diastolic blood pressure 68 mm[Hg] Agus Harrisonlon g Work Phone: [facility] [employer] 250 DO Work Phone: 12-09-2022 09:26-0400 Heart rate 58 /min Agus G Furlong Work Phone: [facility] [employer] 250 DO Work Phone: 12-09-2022 09:26-0400 Systolic blood pressure 94 mm[Hg] Agus G Furlong Work Phone: [facility] [employer] 250 DO Work Phone: 11-28-2022 16:15-0400 Body height 170.18 cm Agus G Furlong Work Phone: [facility] [employer] 320 DO Work Phone: 11-28-2022 16:15-0400 Body mass index (BMI) [Ratio] 33.99 kg/m2 Agus G Furlong Work Phone: [facility] [employer] 320 DO Work Phone: 11-28-2022 16:15-0400 Body surface area Derived from formula 2.09 m2 Agus G Furlong Work Phone: [facility] [employer] 320 DO Work Phone: 04-28-2023 16:15-0400 Body weight 98.43 kg Agus G Furlong Work Phone: [facility] 320 DO Work Phone: 11-28-2022 16:15-0400 Diastolic blood pressure 60 mm[Hg] Agus G Furlon g Work Phone: [facility] 320 DO Work Phone: 11-28-2022 16:15-0400 Heart rate 60 /min Agus G Furlong Work Phone: [facility] 320 DO Work Phone: 11-28-2022 16:15-0400 Systolic blood pressure 90 mm[Hg] Agus G Furlong Work Phone: [facility] 320 DO Work Phone: 11-25-2022 15:49-0400 Body temperature 97.8 [degF] DO Agus Furlong Work Phone: [facility] 11-25-2022 15:49-0400 Diastolic blood pressure 72 mm[Hg] DO Agus Furlo ng Work Phone: [facility] 11-25-2022 15:49-0400 Heart rate 50 /min DO Agus Furlong Work Phone: [facility] 11-25-2022 15:49-0400 Respiratory rate 18 /min DO Agus Furlong Work Phone: [facility] 11-25-2022 15:49-0400 SaO2% (BldA) [Mass fraction] 97 % DO Agus Furlong Work Phone: [facility] 11-25-2022 15:49-0400 Systolic blood pressure 106 mm[Hg] DO Agus Furlon g Work Phone: [facility] 11-25-2022 06:00-0400 Body weight 102.3 kg DO Agus Furlong Work Phone: [facility] 11-21-2022 15:43-0400 Body height 167.64 cm DO Agus Furlong Work Phone: [facility] 11-21-2022 14:51-0400 20 1 Agus G Furlong Work Phone: [facility] 250 DO Work Phone: Comment on above: [id number] 11-21-2022 09:20-0400 Diastolic blood pressure 61 mm[Hg] DO Agus Furlo ng Work Phone: [facility] 11-21-2022 09:20-0400 Heart rate 53 /min DO Agus Furlong Work Phone: [facility] 11-21-2022 09:20-0400 Respiratory rate 20 /min DO Agus Furlong Work Phone: [facility] 11-21-2022 09:20-0400 SaO2% (BldA) [Mass fraction] 95 % DO Agus Furlong Work Phone: [facility] 11-21-2022 09:20-0400 Systolic blood pressure 107 mm[Hg] DO Agus Furlon g Work Phone: [facility] 11-21-2022 05:08-0400 Body height 167.64 cm DO Agus Furlong Work Phone: [facility] 11-21-2022 05:08-0400 Body temperature 96.9 [degF] DO Agus Furlong Work Phone: [facility] 11-21-2022 05:08-0400 Body weight 105.6 kg DO Agus Furlong Work Phone: [facility] 10-13-2022 10:54-0400 Blood Pressure Location Kar BLANCHARD [facility] 10-13-2022 10:54-0400 Diastolic blood pressure 62 mm[Hg] Kar RICE [facility] 10-13-2022 10:54-0400 Heart rate 50 /min Kra RICE [facility] 10-13-2022 10:54-0400 Systolic blood pressure 84 mm[Hg] Kar RICE [facility] 09-29-2022 09:09-0500 Blood Pressure Location Kar RICE [facility] 09-29-2022 09:09-0500 Diastolic blood pressure 46 mm[Hg] Kar RICE [facility] 09-29-2022 09:09-0500 Heart rate 51 /min Kar RICE [facility] 09-29-2022 09:09-0500 Systolic blood pressure 101 mm[Hg] Kar RICE [facility] 09-11-2022 11:57-0500 Body temperature 97.6 [degF] DO Agus Furlong Work Phone: [facility] 09-11-2022 11:57-0500 Diastolic blood pressure 81 mm[Hg] DO Agus Furlo ng Work Phone: [facility] 09-11-2022 11:57-0500 Heart rate 55 /min DO Agus Furlong Work Phone: [facility] 09-11-2022 11:57-0500 Respiratory rate 22 /min DO Agus Furlong Work Phone: [facility] 09-11-2022 11:57-0500 SaO2% (BldA) [Mass fraction] 94 % DO Agus Christylong Work Phone: [facility] 09-11-2022 11:57-0500 Systolic blood pressure 144 mm[Hg] DO Agusraphael Quilesn g Work Phone: [facility] 09-11-2022 06:05-0500 Body weight 100 kg DO Agus Furlong Work Phone: [facility] 09-10-2022 15:37-0500 Inhaled oxygen flow rate 8 L/min DO Agus Christylo ng Work Phone: [facility] 09-10-2022 14:37-0500 Body height 167.64 cm DO Agus Furlong Work Phone: [facility] 09-10-2022 14:37-0500 Body mass index (BMI) [Ratio] 36.5 kg/m2 DO Agus Furlong Work Phone: [facility] 06-19-2022 10:10-0500 Body height 170.18 cm Agus G Furlong Work Phone: [facility] [employer] 600 DO Work Phone: 06-19-2022 10:10-0500 Body mass index (BMI) [Ratio] 36.02 kg/m2 [facility]us G [facility]long [facility] Work Phone: 06-19-2022 10:10-0500 Body surface area Derived from formula 2.15 m2 Agus G Furlong Work Phone: [facility] [employer] 600 DO Work Phone: 06-19-2022 10:10-0500 Body weight 104.33 kg Agus G Furlong [facility] DO Work Phone: 06-19-2022 10:10-0500 Diastolic blood pressure 62 mm[Hg] Agus [facility]ilesn g [facility] DO Work Phone: 06-19-2022 10:10-0500 Heart rate 54 /min Agus Huang [facility]long [facility] DO Work Phone: 06-19-2022 10:10-0500 Systolic blood pressure 110 mm[Hg] Agus Harrisonlong Work Phone: [facility] 600 DO Work Phone: 05-05-2022 11:39-0400 Blood Pressure Location Kar RICE [facility] 05-05-2022 11:39-0400 Diastolic blood pressure 52 mm[Hg] Kar RICE [facility] 05-05-2022 11:39-0400 Heart rate 58 /min Kar RICE [facility] 05-05-2022 11:39-0400 Systolic blood pressure 121 mm[Hg] Kar RICE [facility] 12-12-2021 10:18-0400 Body height 167.64 cm Agus Harrisonlong Work Phone: [facility] 250 DO Work Phone: 12-12-2021 10:18-0400 Body mass index (BMI) [Ratio] 35.51 kg/m2 gAus Huang Furlong Work Phone: [facility] [employer] 250 DO Work Phone: 12-12-2021 10:18-0400 Body surface area Derived from formula 2.08 m2 Agus G Furlong Work Phone: [facility] 250 DO Work Phone: 12-12-2021 10:18-0400 Body weight 99.79 kg Agus G Furlong Work Phone: [facility] 250 DO Work Phone: 12-12-2021 10:18-0400 Diastolic blood pressure 62 mm[Hg] Agus Harrisonlon g Work Phone: [facility] 250 DO Work Phone: 12-12-2021 10:18-0400 Heart rate 50 /min Agus G Furlong Work Phone: [facility] [employer] 250 DO Work Phone: 12-12-2021 10:18-0400 Systolic blood pressure 108 mm[Hg] Agus G Furlong Work Phone: [facility] [employer] 250 DO Work Phone: 06-26-2021 11:14-0500 Diastolic blood pressure 70 mm[Hg] Agus Harrisonlon g Work Phone: [facility] [employer] 250 DO Work Phone: 06-26-2021 11:14-0500 Systolic blood pressure 128 mm[Hg] Agus G Furlong Work Phone: [facility] [employer] 250 DO Work Phone: 06-26-2021 11:13-0500 Body height 167.64 cm Agus G Furlong Work Phone: [facility] 250 DO Work Phone: 06-26-2021 11:13-0500 Body mass index (BMI) [Ratio] 37.12 kg/m2 Agus G Furlong Work Phone: [facility] [employer] 250 DO Work Phone: 06-26-2021 11:13-0500 Body surface area Derived from formula 2.12 m2 Agus Harrisonlong Work Phone: [facility] [employer] 250 DO Work Phone: 06-26-2021 11:13-0500 Body weight 104.33 kg Agus Harrisonlong Work Phone: [facility] [employer] 250 DO Work Phone: 06-26-2021 11:13-0500 Diastolic blood pressure 80 mm[Hg] gAus Burr g Work Phone: [facility] [employer] 250 DO Work Phone: 06-26-2021 11:13-0500 Heart rate 58 /min Agus Harrisonlong Work Phone: [facility] [employer] 250 DO Work Phone: 06-26-2021 11:13-0500 Systolic blood pressure 130 mm[Hg] Agus Harrisonlong Work Phone: [facility] [employer] 250 DO Work Phone: 06-13-2021 10:37-0500 Body height 167.64 cm Agus Harrisonlong Work Phone: [facility] [employer] 250 DO Work Phone: 06-13-2021 10:37-0500 Body mass index (BMI) [Ratio] 37.12 kg/m2 Agus G Furlong Work Phone: [facility] [employer] 250 DO Work Phone: 06-13-2021 10:37-0500 Body surface area Derived from formula 2.12 m2 Agus G Furlong Work Phone: [facility] [employer] 250 DO Work Phone: 06-13-2021 10:37-0500 Body weight 104.33 kg Agus Quilesng Work Phone: [facility] 250 DO Work Phone: 06-13-2021 10:37-0500 Diastolic blood pressure 80 mm[Hg] Agus Quilesn g Work Phone: [facility] 250 DO Work Phone: 06-13-2021 10:37-0500 Heart rate 54 /min Agus Quilesng Work Phone: [facility] 250 DO Work Phone: 06-13-2021 10:37-0500 Systolic blood pressure 148 mm[Hg] Agus Quilesng Work Phone: [facility] 250 DO Work Phone: Encounters Encounter Date Encounter Type Care Provider Facility Start: 09-12-2024 End: 09-12-2024 Orders Only Agus Quilesng DO Work Phone: [facility] Comment on above: Nausea (Primary Dx); Chronic congestive heart failure, unspecified heart failure type ([facility]) Start: 09-06-2024 End: 09-08-2024 Telephone encounter Agus Quilesng DO Work Phone: [facility] Start: 09-03-2024 Non-patient / Non-visit Agus Furlong DO Work Phone: [facility] Work Phone: Start: 09-03-2024 End: 09-06-2024 Evaluation and management of inpatient Agus Furlong DO Work Phone: [facility] Work Phone: Start: 09-01-2024 Evaluation and manag ement of inpatient Agus Furlong DO Work Phone: [facility] Work Phone: Start: 09-01-2024 observation encounter Agus dela cruz DO Work Phone: [facility] Work Phone: Start: 08-30-2024 End: 09-01-2024 Telephone encounter Agus Nation DO Work Phone: [facility] Start: 08-17-2024 End: 08-17-2024 Orders Only Agus Nation DO Work Phone: [facility] Start: 08-15-2024 End: 08-15-2024 Office outpatient visit 25 minutes Ranjan Quiles MD Work Phone: [facility] Comment on above: Paroxysmal atrial fi brillation (Multi); High risk medication use; Cardiomyopathy, ischemic; Coronary artery disease involving [place] coronary artery of [place] heart without angina pectoris; Congestive heart failure, unspecified HF chronicity, unspecified heart failure type; AICD (automatic cardioverter/defibrillator) present; Essential hypertension; Mixed hyperlipidemia; BMI 29.0-29.9,adult Start: 08-15-2024 End: 08-15-[facility] Start: 07-29-2024 End: 08-04-2024 ambulatory Agus Nation DO Work Phone: [facility] Comment on above: History of cholecyst ectomy (Primary Dx); Choledocholithiasis; Chronic systolic congestive heart failure (CMS-HCC); Coronary artery disease involving [place] coronary artery of [place] heart without angina pectoris Start: 07-28-2024 End: 07-28-2024 Orders Only Agus Nation DO Work Phone: [facility] Comment on above: S/P cholecystectomy (Primary Dx); Choledocholithiasis Start: 07-22-2024 End: 08-04-2024 ambulatory [facility]us Nation DO [facility] Comment on above: S/P cholecystectomy (Primary Dx); Chronic systolic congestive heart failure (CMS-HCC); Bradycardia; Diarrhea, unspecified type; Coronary artery disease involving [place] coronary artery of [place] heart without angina pectoris Start: 07-18-2024 End: 07-18-2024 Evaluation and management of inpatient AGUS NATION Facility:[facility] Start: 07-18-2024 End: 07-18-2024 Orders Only Kady Contreras MD Work Phone: Cardiology Comment on above: VT (ventricular tach ycardia) ([facility]) (Primary Dx) Start: 07-13-2024 End: 07-13-2024 Evaluation and management of inpatient ESCOBAR GIVENS Facility:[facility] Start: 07-12-2024 End: 07-19-2024 Evaluation and management of inpatient SPENCERVILLE GWENDOLYN Facility:[facility] Start: 07-12-2024 End: 07-12-2024 ambulatory AGUS HARRISONSAUMYA Facility:[facility] Start: 07-12-2024 End: 07-12-2024 Subsequent hospital visit by physician [facility] Work Phone: Cardiology Start: 07-11-2024 End: 07-11-2024 Admission to same day surgery center Escobar Givens MD Work Phone: General Surgery Comment on above: DO NOT HOLD YOUR ASP IRIN Start: 07-11-2024 End: 07-11-2024 E-mail encounter from caregiver Escobar Givens MD Work Phone: General Surgery Start: 07-08-2024 Encounter for other preprocedural examination AGUS NATION [facility] Start: 07-08-2024 End: 07-08-2024 ambulatory AGUS NATION Facility:[facility] Start: 07-08-2024 End: 07-08-2024 Admission to establishment P[facility] Main 6 Work Phone: Pre Anesthesia Start: 07-08-2024 End: 07-08-2024 Anesthesia consultation Pacc Main 6 Work Phone: Pre Anesthesia Comment on above: Preoperative examina tion (Primary Dx); Acute cholecystitis; History of TIA (transient ischemic attack); Primary hypertension; Hyperlipidemia, unspecified hyperlipidemia type; HFrEF (heart failure with reduced ejection fraction) ([facility]); Ischemic cardiomyopathy; Atrial fibrillation, unspecified type (HCC); V-tach (HCC); ICD (implantable cardioverter-defibrillator) in place; Coronary artery disease involving [place] coronary artery of [place] heart without angina pectoris; Hypothyroidism, unspecified type; Gastroesophageal reflux disease, unspecified whether esophagitis present Start: 07-08-2024 End: 07-08-2024 Preprocedural examination done [facility] Main 6 Work Phone: [facility] Work Phone: Start: 07-08-2024 End: 07-08-2024 ambulatory ESCOBAR GIVENS Facility:[facility] Start: 07-08-2024 End: 07-08-2024 Office outpatient visit 40 minutes Escobar Givens MD Work Phone: General Surgery Comment on above: Choledocholithiasis with acute cholecystitis (Primary Dx) Start: 07-08-2024 End: 07-08-2024 Patient encounter procedure Jacobo Velez MD Work Phone: Cardiology Comment on above: Paroxysmal atrial fi brillation (HCC) (Primary Dx); Coronary artery disease involving [place] coronary artery of [place] heart without angina pectoris; Heart failure with reduced ejection fraction (HFrEF, <= 40%) (HCC); VT (ventricular tachycardia) (HCC) Start: 07-08-2024 End: 07-08-2024 ambulatory AGUS NATION Facility:[facility] Start: 07-04-2024 End: 07-04-2024 Admission to same day surgery center Mary Diaz RN Work Phone: Pre Anesthesia Comment on above: Preparations for josé miguel maren Start: 07-04-2024 End: 07-04-2024 E-mail encounter from caregiver Mary Diaz RN Work Phone: Pre Anesthesia Start: 07-01-2024 End: 07-04-2024 Telephone encounter Mary Diaz RN Work Phone: Pre Anesthesia Comment on above: Preparations For José Miguel maren (Pre-op plavix instructions) Start: 06-24-2024 End: 07-04-2024 Admission to same day surgery center Mary Diaz RN Work Phone: Pre Anesthesia Comment on above: Preparations For José Miguel maren (PACC) Start: 06-24-2024 End: 07-04-2024 ambulatory Agus Nation DO Work Phone: [facility] Comment on above: Choledocholithiasis (Primary Dx); Chronic systolic congestive heart failure (CMS-HCC); Coronary artery disease involving [place] coronary artery of [place] heart without angina pectoris Start: 06-22-2024 End: 06-22-2024 Orders Only Agus Nation DO Work Phone: [facility] Start: 06-17-2024 End: 06-18-2024 ambulatory Agus Nation DO Work Phone: [facility] Comment on above: Choledocholithiasis (Primary Dx); Acute cholecystitis; Chronic systolic congestive heart failure (CMS-HCC); Coronary artery disease involving [place] coronary artery of [place] heart without angina pectoris Start: 06-16-2024 End: 06-16-2024 Orders Only Bree Ghosh [facility] Comment on above: Acute cholecystitis (Primary Dx) Start: 06-14-2024 End: 06-14-2024 Telephone encounter Ranjan Bryant MD Work Phone: Gastroenterology Comment on above: Endoscopy Call Start: 06-14-2024 End: 06-14-2024 ambulatory AGUS GEN HARRISONHALEY Facility:[facility] Start: 06-10-2024 End: 06-12-2024 ambulatory Agus Nation DO Work Phone: [facility] Comment on above: Acute cholecystitis (Primary Dx); Chronic systolic congestive heart failure (CMS-HCC); Ischemic cardiomyopathy; Nausea Start: 06-07-2024 End: 06-07-2024 Telephone encounter Escobar Givens MD Work Phone: General Surgery Comment on above: [employer] 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 [employer]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 - [employer] ther Start: 06-07-2024 End: 06-07-2024 ambulatory ESCOBAR GIVENS Facility:[facility] Start: 06-07-2024 End: 06-07-2024 Office outpatient visit 40 minutes Escobar Givens MD Work Phone: General Surgery Comment on above: Preoperative examina tion (Primary Dx); Acute cholecystitis Start: 06-07-2024 End: 06-07-2024 Preprocedural examination done Escobar Givens MD Work Phone: [facility] Work Phone: Start: 06-03-2024 End: 06-12-2024 ambulatory Agus G Rios CASTANEDA Work Phone: [facility] Comment on above: Acute cholecystitis (Primary Dx); Chronic systolic congestive heart failure (CMS-HCC); Presence of automatic cardioverter/defibrillator (AICD); Ischemic cardiomyopathy Start: 06-02-2024 End: 06-02-2024 Orders Only Agus G Rios DO Work Phone: [facility] Start: 05-27-2024 End: 05-27-2024 Office outpatient visit 25 minutes Ranjan Quiles MD Work Phone: [facility] Comment on above: AICD discharge (Prim honorio Dx); Chronic systolic heart failure; Paroxysmal ventricular tachycardia (Multi); Cardiomyopathy, ischemic; High risk medication use; Essential hypertension, benign; Paroxysmal atrial fibrillation (Multi); Never smoked cigarettes; BMI 30.0-30.9,adult; Cholecystitis; Bilateral lower extremity edema; 3-vessel coronary artery disease; Dyslipidemia; Obesity, Class I, BMI 30-34.9; Stage 3a chronic kidney disease (Multi) Start: 05-27-2024 End: 05-27-2024 [facility] Start: 05-25-2024 End: 05-25-2024 ambulatory Jyoti MCady Ferrernilsa [facility] Start: 05-25-2024 End: 05-25-2024 Patient encounter procedure Jyoti ChavezCady Vlad [facility] Start: 05-20-2024 End: 05-30-2024 ambulatory gAus Nation DO Work Phone: [facility] Comment on above: Acute cholecystitis (Primary Dx); Presence of automatic cardioverter/defibrillator (AICD); Chronic obstructive pulmonary disease, unspecified COPD type (CMS-HCC); Hypertensive heart and chronic kidney disease with heart failure and stage 1 through stage 4 chronic kidney disease, or chronic kidney disease (CMS-HCC); Chronic systolic congestive heart failure (CMS-HCC); Paroxysmal atrial fibrillation (CMS-HCC); Anemia in chronic kidney disease (CODE); Stage 3b chronic kidney disease (CMS-HCC); Ischemic cardiomyopathy Start: 05-19-2024 End: 06-13-2024 Refill Agus Nation DO Work Phone: [facility] Comment on above: Chronic congestive h eart failure, unspecified heart failure type (CMS-HCC) Start: 05-11-2024 End: 05-30-2024 ambulatory Agus Nation DO Work Phone: [facility] Comment on above: Acute cholecystitis (Primary Dx); Chronic obstructive pulmonary disease, unspecified COPD type (CMS-HCC); Hypertensive heart and chronic kidney disease with heart failure and stage 1 through stage 4 chronic kidney disease, or chronic kidney disease (CMS-HCC); Chronic systolic congestive heart failure (CMS-HCC); Anemia in chronic kidney disease (CODE); Stage 3b chronic kidney disease (CMS-HCC); Paroxysmal atrial fibrillation (CMS-HCC); Hyperlipidemia, unspecified hyperlipidemia type; Ischemic cardiomyopathy; BPH with obstruction/lower urinary tract symptoms; Personal history of transient ischemic attack (TIA), and cerebral infarction without residual deficits; Presence of automatic cardioverter/defibrillator (AICD) Start: 05-06-2024 End: 05-06-2024 Evaluation and management of inpatient AGUS NATION Facility:[facility] Start: 05-05-2024 End: 05-10-2024 Telephone encounter Moni Acevedo RN Angio Comment on above: IR Outpatient Tube A ppointment Request Start: 05-04-2024 End: 05-04-2024 Evaluation and management of inpatient [facility] Work Phone: Cardiology Start: 05-04-2024 End: 05-04-2024 Telephone encounter Amanda [facility]ina C[facility] Start: 05-03-2024 End: 05-03-2024 Orders Only Agus Nation DO Work Phone: [facility] Start: 05-01-2024 End: 05-10-2024 Evaluation and management of inpatient AGUS NATION Facility:[facility] Start: 04-26-2024 End: 04-26-2024 Telephone encounter Michael Del Toro RN [facility] Radiology Procedure Start: 04-18-2024 End: 04-18-2024 Telephone encounter Katarina De Leon RN Angio Comment on above: Appointment Start: 04-15-2024 End: 04-15-2024 Orders Only Jacobo Velez MD Work Phone: Cardiology Comment on above: Coronary artery dise ase, unspecified vessel or lesion type, unspecified whether angina present, unspecified whether [place] or transplanted heart (Primary Dx) Start: 04-08-2024 End: 04-08-2024 Telephone encounter Katarina De Leon RN Angio Start: 03-30-2024 End: 03-30-2024 Chart abstracting Research Coordinator Work Phone: Cardiology Comment on above: Research (IRB#[id number] LARY-) Start: 03-29-2024 End: 03-29-2024 Telephone encounter Escobar Givens MD Work Phone: General Surgery Comment on above: Appointment Start: 03-26-2024 End: 03-26-2024 Orders Only Escobar Givens MD Work Phone: General Surgery Comment on above: Coronary artery dise ase involving [place] coronary artery of [place] heart without angina pectoris (Primary Dx) Start: 03-21-2024 End: 03-21-2024 Evaluation and management of inpatient [facility] Work Phone: Cardiology Start: 03-21-2024 End: 03-22-2024 Telephone encounter Lois Palafox RN Angio Comment on above: IR Inpatient Tube Ap pointment Request Start: 03-20-2024 Evaluation and manag ement of inpatient SHAKIR Jett TEETEEPark Facility:[facility] Start: 03-15-2024 Non-patient / Non-visit DO Den nis Furlong Work Phone: [facility] Gastroenterology Work Phone: Start: 03-15-2024 End: 03-20-2024 Evaluation and management of inpatient DO Agus Furlong Work Phone: [facility] [place] [facility] Work Phone: Start: 03-14-2024 Evaluation and manag ement of inpatient DO Agus Furlong Work Phone: [facility] [place] [facility] Work Phone: Start: 03-14-2024 observation encounter DO Damián s Furlong Work Phone: [facility] Work Phone: Start: 03-10-2024 End: 03-10-2024 ambulatory DO Agus Furlong Work Phone: [facility] Work Phone: Start: 03-10-2024 End: 03-10-2024 Discharged Recurring DO Agus Furlong Work Phone: [facility]Physical Therapy [place] Work Phone: Start: 03-10-2024 Registered Recurring DO Agus Furlong Work Phone: [facility] [place] Work Phone: Start: 03-03-2024 End: 03-03-2024 Patient encounter procedure DO Praful Kassidy Work Phone: [facility] Work Phone: Start: 03-03-2024 End: 03-03-2024 ambulatory DO Praful M Kassidy Work Phone: [facility] Work Phone: Start: 03-03-2024 End: 03-03-2024 ambulatory DO Praful M Kassidy Work Phone: [facility] Work Phone: Start: 03-03-2024 End: 03-03-2024 Patient encounter procedure DO Praful Kassidy Work Phone: [facility] Work Phone: Start: 02-19-2024 End: 02-19-2024 ambulatory DO Praful M Kassidy Work Phone: [facility] Work Phone: Start: 02-19-2024 End: 02-19-2024 Patient encounter procedure DO Praful Kassidy Work Phone: [facility] G[facility] Work Phone: Start: 02-15-2024 End: 02-15-2024 ambulatory [facility] Start: 02-11-2024 End: 02-11-2024 ambulatory ZAINA ELLINGTON Not Available Start: 02-08-2024 End: 02-08-2024 Emergency department patient visit DO Praful Kassidy Work Phone: [facility]-Emergency Room Work Phone: Start: 01-18-2024 End: 01-18-2024 ambulatory [facility] Start: 01-18-2024 End: 01-18-2024 ambulatory [facility] Start: 12-25-2023 End: 12-25-2023 ambulatory RANJAN QUILES [facility] Ambulatory Start: 12-25-2023 End: 12-25-2023 Office outpatient visit 25 minutes Ranjan Quiles MD Work Phone: [facility] Comment on above: Paroxysmal ventricul ar tachycardia (Multi) (Primary Dx); Atrial fibrillation, unspecified type (Multi); Cardiomyopathy, ischemic; Congestive heart failure, unspecified HF chronicity, unspecified heart failure type (Multi); Essential hypertension, benign; BMI 31.0-31.9,adult; Never smoked cigarettes; High risk medication use; Dyslipidemia; AICD discharge; Stage 3b chronic kidney disease (Multi) Start: 12-23-2023 End: 12-23-2023 ambulatory [facility] Start: 12-17-2023 End: 12-17-2023 ambulatory DO Agus Nation Work Phone: [facility] Work Phone: Start: 12-17-2023 End: 12-17-2023 Discharged Recurring DO Agus Nation Work Phone: [facility] [place] Work Phone: Start: 12-11-2023 End: 12-11-2023 Emergency department patient visit DO Agus Nation Work Phone: [facility]-Emergency Room Work Phone: Start: 12-10-2023 Registered Recurring DO Agus Nation Work Phone: [facility] [place] Work Phone: Start: 12-08-2023 End: 12-08-2023 Patient encounter procedure Agus Nation DO Work Phone: [facility] Comment on above: Medicare annual well ness visit, subsequent (Primary Dx); Screening for depression Start: 12-08-2023 End: 12-08-2023 ambulatory [facility] Start: 11-25-2023 End: 11-25-2023 ambulatory ZAINA Jeffery ESTRADAHANNA Not Available Start: 11-08-2023 Refill Lois Nguyễn LANCE CREWMEMBER-COMMUNITY OUTREACH DIRECTOR Work Phone: [facility] Start: 10-20-2023 Non-patient / Non-visit DO Den nis Furlong Work Phone: [facility] Gastroenterology Work Phone: Start: 10-20-2023 End: 10-20-2023 Admission to same day surgery center DO Agus Furlong Work Phone: [facility]Digestive [facility] Work Phone: Start: 10-20-2023 End: 10-20-2023 ambulatory DO Agus Furlong Work Phone: [facility] Work Phone: Start: 10-15-2023 Registered Recurring DO Agus Furlong Work Phone: [facility] [place] Work Phone: Start: 10-13-2023 End: 10-13-2023 ambulatory Agus Furlong Facility:[facility] Start: 10-13-2023 End: 10-13-2023 Patient encounter procedure DO Agus Furlong Work Phone: [facility]-Lab Main [place] Work Phone: Start: 10-06-2023 End: 10-06-2023 Patient encounter procedure DO Agus Furlong Work Phone: [facility] [address] Work Phone: Start: 10-06-2023 End: 10-06-2023 ambulatory Zaina Ellington Facility:[facility] Start: 10-01-2023 End: 10-01-2023 Office outpatient visit 25 minutes Ranjan Quiles MD Work Phone: [facility] Comment on above: Congestive heart paulo lure, unspecified HF chronicity, unspecified heart failure type (CMS/HCC) (Primary Dx); Cardiomyopathy, ischemic; Atrial fibrillation, unspecified type (CMS/HCC); Class 1 obesity with body mass index (BMI) of 32.0 to 32.9 in adult, unspecified obesity type, unspecified whether serious comorbidity present; Never smoked cigarettes; AICD (automatic cardioverter/defibrillator) present; Paroxysmal ventricular tachycardia (CMS/HCC); High risk medication use; Dyslipidemia Start: 10-01-2023 End: 10-01-2023 ambulatory [facility] Start: 09-28-2023 End: 09-28-2023 ambulatory [place] Michel [facility]ulatory [facility] Start: 09-18-2023 Orders Only Lois Nguyễn LANCE CREWMEMBER-COMMUNITY OUTREACH DIRECTOR Work Phone: [facility] Comment on above: Esophageal motility disorder (Primary Dx) Start: 09-17-2023 Orders Only Lois Nguyễn LANCE CREWMEMBER-COMMUNITY OUTREACH DIRECTOR Work Phone: [facility] Comment on above: Esophageal dysphagia Start: 09-16-2023 End: 09-16-2023 Patient encounter procedure DO Agus Furlong Work Phone: [facility]XRay Main [place] Work Phone: Start: 09-16-2023 End: 09-16-2023 ambulatory DO Agus Furlong Work Phone: [facility] Work Phone: Start: 08-28-2023 End: 08-28-2023 ambulatory DO Agus Furlong Work Phone: [facility] Work Phone: Start: 08-28-2023 End: 08-28-2023 Patient encounter procedure DO Agus Furlong Work Phone: [facility]Lab Main [place] Work Phone: Start: 08-27-2023 End: 08-27-2023 Office outpatient visit 25 minutes [facility] LANCE CREWMEMBER-COMMUNITY OUTREACH DIRECTOR Work Phone: [facility] Comment on above: Esophageal dysphagia (Primary Dx); Gastroesophageal reflux disease, unspecified whether esophagitis present; Bilious vomiting with nausea Start: 08-27-2023 End: 08-27-[address] [facility] Ambulatory [facility] Start: 08-18-2023 Orders Only Agus kerns DO Work Phone: [facility] Start: 07-29-2023 Orders Only Agus kerns DO Work Phone: [facility] Start: 07-23-2023 End: 07-23-2023 ambulatory [place] [facility] Start: 07-21-2023 End: 07-21-2023 Emergency department patient visit DO Agus Nation Work Phone: [facility]-Emergency Room Work Phone: Start: 06-23-2023 End: 06-23-2023 Office outpatient visit 10 minutes Ranjan Quiles MD Work Phone: [facility] Comment on above: Congestive heart paulo lure, unspecified HF chronicity, unspecified heart failure type (CMS/HCC); Cardiomyopathy, ischemic Start: 05-26-2023 End: 05-26-2023 Office outpatient visit 10 minutes Ranjan Quiles MD Work Phone: [facility] Comment on above: Congestive heart paulo lure, unspecified HF chronicity, unspecified heart failure type (CMS/HCC); Cardiomyopathy, ischemic; Essential hypertension, benign Start: 05-21-2023 End: 05-21-2023 Patient encounter procedure DO Agus Nation Work Phone: [facility]-Lab Main [place] Work Phone: Start: 05-20-2023 End: 05-20-2023 Patient encounter procedure Jyoti Chu [facility] [place] Start: 05-11-2023 End: 05-11-2023 ambulatory DO Agus Harrisonlong Work Phone: [facility] Work Phone: Start: 05-11-2023 End: 05-11-2023 Patient encounter procedure DO Agus Harrisonlong Work Phone: [facility]Lab [facility] [place] Work Phone: Start: 04-17-2023 End: 04-17-2023 Emergency department patient visit DO Agus Quilesng Work Phone: [facility]-Emergency Room Work Phone: Start: 04-01-[address] Rose Ding Facility:[id number] Start: 04-01-[address] Ranjan Quiles Facility: Start: 04-01-[address] Ranjan Quiles Facility: Start: 04-01-2023 End: 04-01-2023 Emergency department patient visit DO Agus Nation Work Phone: [facility]Emergency Room Work Phone: Start: 03-27-2023 Current tobacco non- user cad cap copd pv dm Agus Harrisonlong Work Phone: [facility] 320 DO Work Phone: Start: 03-27-2023 FUVHOSP, Provider: Rose Ding, Status: Pen, Time: 10:00 AM Agus Harrisonlong Work Phone: [facility] 320 DO Work Phone: Start: 03-27-2023 ambulatory Rose Ding Facility:[id number] Start: 03-27-2023 Patient encounter procedure De nnalexander Harrisonlong Work Phone: [facility] 320 DO Work Phone: Start: 03-27-[address] Agus Nation Facility:[id number] Start: 03-26-2023 Result Review Agus Michel Quiles ng Work Phone: [facility] 320 DO Work Phone: Start: 03-25-[address] Agus Nation Facility:[id number] Start: 03-13-[address] Agus Nation Facility:[id number] Start: 03-13-[address] Agus Nation Facility:[id number] Start: 03-12-[address] Rojelio Archer Facility:[id number] Start: 03-11-[address] Agus Nation Facility:[id number] Start: 03-11-[address] Agus Nation Facility:[id number] Start: 03-10-[address] Rojelio Archer Facility:[id number] Start: 03-09-[address] Agus Nation Facility:[id number] Start: 03-09-[address] Agus Nation Facility:[id number] Start: 03-09-2023 End: 03-13-2023 Evaluation and management of inpatient DO Agus Nation Work Phone: [facility] [place] [facility] Work Phone: Start: 03-09-[address] Agus Nation Facility:[id number] Start: 02-02-2023 Patient encounter procedure De kush Huang Christyhaley Work Phone: [facility] 250 DO Work Phone: Start: 01-28-[address] Agus Nation Facility:[id number] Start: 12-25-[address] Agus Nation Facility:[id number] Start: 12-17-2022 End: 12-17-[address] 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 Start: 12-11-2022 End: 12-11-2022 ambulatory DO Agus Nation Work Phone: [facility] Work Phone: Start: 12-11-2022 End: 12-11-2022 Patient encounter procedure DO Agus Nation Work Phone: [facility]-Lab Main [place] Work Phone: Start: 12-09-2022 NURSEVST, Provider: MASON DE GUZMAN CABIN WORKER 1,[id number], Status: Pen, Time: 9:30 AM Agus Nation Work Phone: [facility] 250 DO Work Phone: Start: 12-09-2022 Office outpatient vi sit 10 minutes Agus Nation Work Phone: [facility] 250 DO Work Phone: Start: 12-09-[address] Agus Nation Facility: Start: 12-07-2022 Chart Update Agus kerns Work Phone: [facility] 250 DO Work Phone: Start: 12-04-2022 End: 12-04-2022 ambulatory DO Agus Nation Work Phone: [facility] Work Phone: Start: 12-04-2022 End: 12-04-2022 Patient encounter procedure DO Agus Christyranjitng Work Phone: [facility] [facility] Work Phone: Start: 11-28-2022 Current tobacco non- user cad cap copd pv dm Agus Quilesng Work Phone: [facility] 320 DO Work Phone: Start: 11-28-2022 NPVRFRL, Provider: Rose Ding, Status: Pen, Time: 4:00 PM Agus Nation Work Phone: [facility] Work Phone: Start: 11-28-[address] Agus Nation Facility: Start: 11-25-[address] Agus Nation Facility:[id number] Start: 11-24-[address] Agus Nation Facility:[id number] Start: 11-23-2022 Image Encounter Agus Quiles ng Work Phone: [facility] 250 DO Work Phone: Start: 11-21-[address] Agus Nation Facility:[id number] Start: 11-21-2022 End: 11-25-2022 Evaluation and management of inpatient DO Agus Christyhaley Work Phone: [facility] [place] [facility] Work Phone: Start: 11-21-[address] Agus Nation Facility:[id number] Start: 11-19-[address] Agus Nation Facility:[id number] Start: 11-19-2022 End: 11-19-2022 ambulatory DO Agus Quilesng Work Phone: [facility] Work Phone: Start: 11-19-2022 End: 11-19-2022 Patient encounter procedure DO Agus Harrisonlong Work Phone: [facility] Start: 10-30-2022 Rx Renewal Agus Quiles ng Work Phone: [facility] 250 DO Work Phone: Start: 10-15-2022 Chart Update Agus Quiles ng Work Phone: [facility] 250 DO Work Phone: Start: 10-14-2022 Chart Update Agus Quiles ng Work Phone: [facility] 250 DO Work Phone: Start: 10-14-2022 End: 10-14-2022 Patient encounter procedure DO Agus Harrisonlong Work Phone: [facility] Work Phone: Start: 10-13-2022 End: 10-13-2022 Patient encounter procedure Kar BLANCHARD [facility] [place] Start: 09-29-2022 End: 09-29-2022 Patient encounter procedure Kar BLANCHARD [facility] [place] Start: 09-10-2022 End: 09-11-2022 Admission to same day surgery center DO Agus Harrisonlong Work Phone: [facility] [place] Start: 09-10-2022 End: 09-11-2022 ambulatory DO Agusraphael Harrisonlong Work Phone: [facility] Work Phone: Start: 08-22-2022 Patient encounter procedure De kush Quilesng Work Phone: [facility] 250 DO Work Phone: Start: 08-20-[address] Agus Nation Facility:90 Start: 08-20-2022 End: 08-20-2022 ambulatory DO Agus Furlong Work Phone: [facility] Work Phone: Start: 08-20-2022 End: 08-20-2022 Patient encounter procedure DO Agus Furlong Work Phone: [facility] Start: 08-13-2022 End: 08-13-2022 ambulatory DO Agus Furlong Work Phone: [facility] Work Phone: Start: 08-13-2022 End: 08-13-2022 Patient encounter procedure DO Agusraphael Harrisonlong Work Phone: [facility] Work Phone: Start: 07-24-2022 Rx Renewal Agus G Furlo ng Work Phone: [facility] 250 DO Work Phone: Start: 07-03-2022 AUDIT Agus G Furlo ng Work Phone: [facility] 600 DO Work Phone: Start: 06-19-[address] Agus Nation Facility: Start: 06-09-2022 Rx Renewal Agus G Furlo ng Work Phone: [facility] 250 DO Work Phone: Start: 05-05-2022 End: 05-05-2022 Patient encounter procedure Kar BLANCHARD [facility] [place] Start: 04-08-2022 Rx Renewal Agus G Furlo ng Work Phone: [facility] 250 DO Work Phone: Start: 03-26-2022 Chart Update Agus Quiles ng Work Phone: [facility] 250 DO Work Phone: Start: 03-25-2022 End: 03-25-2022 Patient encounter procedure DO Agus Harrisonlong Work Phone: [facility] [place] Start: 03-05-2022 Rx Renewal Agus Quiles ng Work Phone: [facility] 250 DO Work Phone: Start: 03-04-2022 End: 03-04-[address] SHAWNA ASHRAF Facility:H1 Start: 03-01-2022 End: 03-01-2022 ambulatory BELLA AVITIA Facility:H1 Start: 02-10-2022 End: 02-10-2022 Patient encounter procedure DO Agus Quilesng Work Phone: [facility] Start: 01-21-2022 Patient encounter procedure De kush Harrisonlong Work Phone: [facility] 250 DO Work Phone: Start: 01-06-2022 Rx Renewal Agus Qiules ng Work Phone: [facility] 250 DO Work Phone: Start: 12-12-2021 Office outpatient vi sit 25 minutes Agus Quilesng Work Phone: [facility] 250 DO Work Phone: Start: 09-17-2021 Rx Renewal Agus Harrisonlo ng Work Phone: [facility] 250 DO Work Phone: Start: 09-16-2021 Chart Update Agus Quiles ng Work Phone: [facility] 250 DO Work Phone: Start: 08-28-2021 Telephone encounter Agus jiménezlong Work Phone: [facility] 600 DO Work Phone: Start: 08-16-2021 Patient encounter procedure De kush Huang Furlong Work Phone: [facility] 250A [place] Work Phone: Start: 07-19-2021 Rx Renewal Agus Harrisonlo ng Work Phone: [facility] 250[address] [place] Work Phone: Start: 07-11-2021 Rx Renewal Agus Quiles ng Work Phone: [facility] 250 DO Work Phone: Start: 06-26-2021 Office outpatient vi sit 10 minutes Agus Harrisonlong Work Phone: [facility] 250 DO Work Phone: Start: 06-13-2021 Office outpatient vi sit 40 minutes Agus Harrisonlong Work Phone: [facility] 250[address] [place] Work Phone: Start: 06-13-2021 Patient encounter procedure De nnalexander Huang Furlong Work Phone: [facility] 250 DO Work Phone: Start: 05-14-2021 Chart Update Ranjan Quiles MD Work Phone: [facility] 250 DO Work Phone: Start: 03-04-2018 Patient encounter RANJAN Flores ility:[id number] Start: 03-03-2018 Patient encounter RANJAN Flores ility:[id number] Start: 08-20-2017 Patient encounter RANJAN Flores ility:[id number] Patient encounter status Agus Harrisonlong Work Phone: [facility] 320 DO Work Phone: Procedures Date Procedure Procedure Detail Performing Clinician Start: 09-01-2024 Computed tomography of abdomen and pelvis with contrast Agus Nation DO Work Phone: Start: 09-01-2024 CT of head without contrast Agus kerns DO Work Phone: Start: 09-01-2024 Respiratory Panel (PCR) Agus Nation DO Work Phone: Start: 08-15-2024 Ecg routine ecg w/least 12 lds w/i&r Ranjan Quiles MD Work Phone: Start: 08-04-2024 History of cholecystectomy S/P cholecystectomy Agus Burr g DO Work Phone: Start: 07-12-2024 Prgrmg dev eval implantable subq lead dfb system Ranjan Bryant MD Work Phone: Start: 07-08-2024 Antibody screen AGUS NATION Comment on above: Order Comment: Specimen Type: BLOOD SPEC IMENOrdering Facility: [facility] Address: [address] [place] [address] Performed By: #### T [id number] ####CC MAIN BLOOD BANKCLIA [id number] [address] OF [facility] Start: 05-27-2024 Ecg routine ecg w/least 12 lds w/i&r Ranjan Quiles MD Work Phone: Start: 05-04-2024 Prgrmg eval implantable in person multi lead dfb Cristino Huff APRN.CNP Work Phone: Start: 05-02-2024 Echocardiography AGUS NATION Start: 05-01-2024 Antibody screen AGUS NATION Comment on above: Order Comment: Specimen Type: BLOOD SPEC IMENOrdering Facility: [facility] Address: [address] [place] [address] Performed By: #### T SCR ####CC MAIN BLOOD BANKCLIA [id number] [address] Start: 03-21-2024 Prgrmg dev eval implantable subq lead dfb system Alejandra Puentes PA-C Work Phone: Start: 03-21-2024 Echocardiography AGUS FURLONG Start: 03-20-2024 Antibody screen AGUS FURLONG Comment on above: Order Comment: Specimen Type: BLOOD SPEC IMENOrdering Facility: [facility] Address: [address] [place] [address] Performed By: #### T SCR ####CC MAIN BLOOD BANKCLIA [id number] [address] Start: 03-16-2024 Plain chest X-ray DO Agusraphael Harrisonlong Work Phone: Start: 03-16-2024 Blood culture for bacteria, including anaerobic screen DO Agus Furlong Work Phone: Start: 03-16-2024 Computed tomography of abdomen and pelvis with contrast DO Agus Furlong Work Phone: Start: 03-14-2024 Computed tomography of abdomen and pelvis with contrast DO Agusraphael Harrisonlong Work Phone: Start: 03-03-2024 X-ray of cervical spine DO Praful Kassidy Work Phone: Start: 03-03-2024 X-ray of lumbar spine, four views DO Jar ed Kassidy Work Phone: Start: 02-15-2024 Adult depression screening assessment Agus Furlong DO Work Phone: Start: 02-08-2024 CT of head without contrast DO Praful Kat zi Work Phone: Start: 02-08-2024 Plain chest X-ray DO Praful Kassidy Work Phone: Start: 12-25-2023 Ecg routine ecg w/least 12 lds w/i&r Ranjan Quiles MD Work Phone: Start: 12-11-2023 Plain chest X-ray DO Agus Quilesng Work Phone: Start: 12-08-2023 Adult depression screening assessment Agus Harrisonlong DO Work Phone: Start: 10-20-2023 Esophagogastroduodenoscopy DO Agus Quilesng Work Phone: Start: 10-06-2023 CT cervical spine without contrast DO Agus Harrisonlong Work Phone: Start: 10-06-2023 CT of lumbar spine without contrast DO Agus Harrisonlong Work Phone: Start: 10-01-2023 ECG 12-LEAD RANJAN QUILES Start: 10-01-2023 Ecg routine ecg w/least 12 lds w/i&r Ranjan Quiles MD Work Phone: Start: 09-28-2023 Adult depression screening assessment Lois Wilsonuch LANCE CREWMEMBER-COMMUNITY OUTREACH DIRECTOR Work Phone: Start: 09-16-2023 FL UGI WITH ESOPHAGUS Loisligia Marte Rauch LANCE CREWMEMBER-COMMUNITY OUTREACH DIRECTOR Work Phone: Start: 08-27-2023 Adult depression screening assessment Lois Nguyễn LANCE CREWMEMBER-COMMUNITY OUTREACH DIRECTOR Work Phone: Start: 07-23-2023 Follow-up visit Follow-up AGUS NATION Start: 07-21-2023 CT of head without contrast DO Agus Harrisonlong Work Phone: Start: 07-21-2023 Plain chest X-ray DO Agus Harrisonlong Work Phone: Start: 05-19-2023 Thyrotropin [Units/volume] in Serum or Plasma Ranjan Quiles MD Work Phone: Start: 05-18-2023 Adult depression screening assessment Agus Quilesng DO Work Phone: Start: 04-17-2023 CT cervical spine without contrast DO Agus Harrisonlong Work Phone: Start: 04-17-2023 CT of head without contrast DO Zolverslong Work Phone: Start: 04-01-2023 Plain chest X-ray DO [employer] Work Phone: Start: 03-12-2023 CL Closure Device Placement 0 DO Zolverslong Work Phone: Start: 03-12-2023 CL Ivus Initial Vessel DO [employer] Work Phone: Start: 03-12-2023 CL Stent 1st Vessel LM BOSSMAN DO [employer] Work Phone: Start: 03-10-2023 CL LHC & COR Angio DO [employer] Work Phone: Start: 03-09-2023 Plain chest X-ray DO Zolverslong Work Phone: Start: 12-17-2022 ELECTROCARDIOGRAM 12 LEAD Shania Mc LANCE CREWMEMBER-COMMUNITY OUTREACH DIRECTOR Work Phone: Start: 12-17-2022 CHEST 2 VIEW Rose Ding MD Work Phone: Start: 12-17-2022 ELECTROCARDIOGRAM 12 LEAD Rose Ding MD Work Phone: Start: 11-21-2022 Urine culture DO [employer] Work Phone: Start: 11-21-2022 CT of head without contrast DO Zolverslong Work Phone: Start: 11-21-2022 Plain chest X-ray DO [employer] Work Phone: Start: 10-14-2022 Plain chest X-ray DO [employer] Work Phone: Start: 09-10-2022 Transurethral prostatectomy DO [employer] Work Phone: Start: 09-10-2022 Transurethral prostatectomy Kar SANTO Start: 08-13-2022 Plain chest X-ray DO [employer] Work Phone: Start: 07-09-2022 Cystoscopy Kar BLANCHARD Start: 04-29-2018 Measurement of respiratory function Kar BLANCHARD Start: 02-05-2018 Automatic defibrillator procedure Kar BLANCHARD Start: 03-11-2011 Transrectal biopsy of prostate using ultrasound guidance Kar BLANCHARD Colonoscopy Agus huang Work Phone: Comment on above: 03Aug2012; History of cholecystectomy S/P cholecyste ctomy Agus Nation DO Work Phone: History of cholecystectomy Histo ry of cholecystectomy Agus Nation DO Work Phone: History of cholecystectomy S/P cholecyste ctomy Agus Nation DO Work Phone: Insertion of pulse g enerator of implantable cardioverter defibrillator Agus Nation Work Phone: Procedure on prostate Agus Nation Work Phone: Surgical procedure on eye proper Agus Nation Work Phone: Tooth extraction Agus alfred Work Phone: Plan of Treatment Date Care Activity Detail Author Start: 07-22-2028 DTaP,Tdap and Td Vaccines (4 - Td or Tdap) DTaP,Tdap and Td Vaccines (4 - Td or Tdap) [facility] Start: 07-22-2028 DTaP/Tdap/Td Vaccines (4 - Td or Tdap) DTaP/Tdap/Td Vaccines (4 - Td or Tdap) [facility] Start: 07-22-2028 Urine microalbumin profile DTaP,Tdap,Td Vaccine (4 - Td or Tdap) [facility] Start: 07-17-2027 Diabetes Screening Diabetes Screening [facility] Start: 07-13-2027 Diabetes Screening Diabetes Screening [facility] Start: 07-08-2027 Diabetes Screening Diabetes Screening [facility] Start: 05-10-2027 Diabetes Screening Diabetes Screening [facility] Start: 05-05-2027 Diabetes Screening Diabetes Screening [facility] Start: 03-31-2027 Diabetes Screening Diabetes Screening [facility] Start: 03-30-2027 Diabetes Screening Diabetes Screening [facility] Start: 03-29-2027 Diabetes Screening Diabetes Screening [facility] Start: 03-26-2027 Diabetes Screening Diabetes Screening [facility] Start: 03-22-2027 Diabetes Screening Diabetes Screening [facility] Start: 03-21-2027 Diabetes Screening Diabetes Screening [facility] Start: 07-17-2025 Creatinine measurement Serum Creatinine [facility] Start: 07-13-2025 Complete blood count Hemoglobin/Hematocrit [facility] Start: 07-13-2025 Creatinine measurement Serum Creatinine [facility] Start: 07-08-2025 BP Controlled (<130/80) BP Controlled (<130/80) [facility] Start: 07-08-2025 Complete blood count Hemoglobin/Hematocrit [facility] Start: 07-08-2025 Creatinine measurement Serum Creatinine [facility] Start: 06-07-2025 BP Controlled (<130/80) BP Controlled (<130/80) [facility] Start: 05-11-2025 Adult BMI Screening Adult BMI Screening [facility] Start: 05-10-2025 Creatinine measurement Serum Creatinine [facility] Start: 05-05-2025 Complete blood count Hemoglobin/Hematocrit [facility] Start: 05-05-2025 Creatinine measurement Serum Creatinine [facility] Start: 03-31-2025 Complete blood count Hemoglobin/Hematocrit [facility] Start: 03-31-2025 Creatinine measurement Serum Creatinine [facility] Start: 03-30-2025 Creatinine measurement Serum Creatinine [facility] Start: 03-29-2025 Creatinine measurement Serum Creatinine [facility] Start: 03-26-2025 Creatinine measurement Serum Creatinine [facility] Start: 03-22-2025 Creatinine measurement Serum Creatinine [facility] Start: 03-21-2025 Creatinine measurement Serum Creatinine [facility] Start: 02-14-2025 Adult BMI Screening Adult BMI Screening [facility] Start: 02-14-2025 Depression Screening Depression Screening [facility] Start: 02-14-2025 Tobacco Screening Tobacco Screening [facility] Start: 01-17-2025 Fall Risk Screening Fall Risk Screening [facility] Start: 01-06-2025 End: 01-06-2025 Patient encounter procedure 01/06/2025 1:10 PM EDT Office Visit [facility] [address] [place] [id number] Ranjan Quiles MD [address] [place] [address] [facility] Start: 12-13-2024 End: 12-13-2024 Patient encounter procedure 12/13/2024 9:00 AM EDT Office Visit [facility] [address] [place] [address] [facility] Start: 12-08-2024 Medicare Annual Wellness Visit Medicare Annual Wellness Visit (AWV) [facility] Start: 12-07-2024 Adult BMI Screening Adult BMI Screening [facility] Start: 12-07-2024 Depression Screening Depression Screening [facility] Start: 12-07-2024 Fall Risk Screening Fall Risk Screening [facility] Start: 12-07-2024 Medicare Annual Wellness Visit Medicare Annual Wellness Visit [facility] Start: 09-28-2024 Adult BMI Screening Adult BMI Screening [facility] Start: 09-28-2024 Depression Screening Depression Screening [facility] Start: 09-28-2024 Fall Risk Screening Fall Risk Screening [facility] Start: 09-28-2024 Tobacco Screening Tobacco Screening [facility] Start: 09-06-2024 [facility] Start: 09-03-2024 Referral to archives technician [facility] Start: 09-02-2024 End: 09-02-2024 Patient encounter procedure 09/02/2024 12:00 PM EST Office Visit [facility] [address] [place] [address] Agus Nation, [address] [place] [address] [facility] Start: 09-02-2024 [facility] Start: 09-01-2024 Referral to neurologist [facility] Start: 09-01-2024 Physical therapy procedure [facility] Start: 09-01-2024 Referral to occupational therapist [facility] Start: 09-01-2024 Hospital admission [facility] Start: 09-01-2024 [facility] Start: 09-01-2024 [facility] Start: 08-27-2024 Adult BMI Screening Adult BMI Screening [facility] Start: 08-27-2024 Depression Screening Depression Screening [facility] Start: 08-27-2024 Fall Risk Screening Fall Risk Screening [facility] Start: 08-27-2024 Tobacco Screening Tobacco Screening [facility] Start: 08-15-2024 End: 08-15-2025 Aspartate aminotransferase [Enzymatic activity/volume] in Serum or Plasma by With P-5'-P Aspartate Aminotransferase Lab Routine Paroxysmal atrial fibrillation (Multi) High risk medication use Expected: 08/15/2024 (Approximate), Expires: 08/15/2025 [facility] Work Phone: Comment on above: Expected: 08/15/2024 (Approximate), Expi res: 08/15/2025 Start: 08-15-2024 End: 08-15-2025 Basic metabolic 2000 panel - Serum or Plasma Basic Metabolic Panel Lab Routine Paroxysmal atrial fibrillation (Multi) High risk medication use Expected: 08/15/2024 (Approximate), Expires: 08/15/2025 [facility] Work Phone: Comment on above: Expected: 08/15/2024 (Approximate), Expi res: 08/15/2025 Start: 08-15-2024 End: 08-15-2025 Comprehensive metabolic 2000 panel - Serum or Plasma Comprehensive Metabolic Panel Lab Routine Cardiomyopathy, ischemic Coronary artery disease involving [place] coronary artery of [place] heart without angina pectoris Essential hypertension Expected: 08/15/2024 (Approximate), Expires: 08/15/2025 [facility] Service Area Work Phone: Comment on above: Expected: 08/15/2024 (Approximate), Expi res: 08/15/2025 Start: 08-15-2024 End: 08-15-2025 Thyrotropin [Units/volume] in Serum or Plasma Thyroid Stimulating Hormone Lab Routine Paroxysmal atrial fibrillation (Multi) High risk medication use Expected: 08/15/2024 (Approximate), Expires: 08/15/2025 [facility] Work Phone: Comment on above: Expected: 08/15/2024 (Approximate), Expi res: 08/15/2025 Start: 07-26-2024 End: 07-26-2024 Admission to same day surgery center [facility] Radiology Procedure Comment on above: PERC IMAGE GUIDED EXCHANGE BILIARY DRAIN AGE CATHETER W/RAD S&I INCLUDING DIAG CHOLANGIOGRAPHY WHEN PERFORMED Start: 07-26-2024 End: 07-26-2024 Exchange biliary drg catheter prq w/img gid rs&i AV IR Start: 07-26-2024 Subsequent hospital visit by physician [facility] Radiology Procedure Comment on above: Acute cholecystitis [K81.0] Start: 07-25-2024 End: 07-25-2024 Patient encounter procedure 07/25/2024 10:15 AM EST Office Visit Cardiology [address] [place] [address] Kady Contreras MD [address] [place] [address] [place] (ventricular tachycardia) (HCC) [I47.20] Cardiology Comment on above: VT (ventricular tachycardia) (HCC) [I47. 20] Start: 07-25-2024 End: 07-25-2024 ambulatory 07/25/2024 9:45 AM EST Results Only Cardiology [address] [place] [address] [place] (ventricular tachycardia) (HCC) [I47.20] Cardiology Comment on above: VT (ventricular tachycardia) (HCC) [I47. 20] Start: 07-23-2024 Adult BMI Screening Adult BMI Screening [facility] Start: 07-23-2024 Fall Risk Screening Fall Risk Screening [facility] Start: 07-23-2024 Tobacco Screening Tobacco Screening [facility] Start: 07-14-2024 End: 07-14-2024 Patient encounter procedure 07/14/2024 11:15 AM EST Office Visit [facility] [address] [place] [address] Agus Nation DO [address], [facility] [place] [address] [facility] Start: 07-13-2024 End: 07-13-2024 Admission to same day surgery center 07/13/2024 10:21 AM EST - 07/13/2024 2:03 PM EST Surgery Admitting [address] [place] [address] Escobar Givens MD [address] [place] [address] LAPAROSCOPIC CHOLECYSTECTOMY POSSIBLE OPEN Admitting Comment on above: LAPAROSCOPIC CHOLECYSTECTOMY POSSIBLE OP EN Start: 07-13-2024 End: 07-13-2024 Laparoscopy surg cholecystectomy LAPAROSCOPIC CHOLECYSTECTOMY POSSIBLE OPEN Preoperative examination Acute cholecystitis 07/13/2024 10:21 AM EST [facility] Start: 07-13-2024 Subsequent hospital visit by physician Admitting Comment on above: Preoperative examination [Z01.818], Acut e cholecystitis [K81.0] Start: 07-13-2024 End: 07-13-2024 Admission to same day surgery center 07/13/2024 8:30 AM EST - 07/13/2024 11:57 AM EST Surgery Admitting [address] [place] [address] Escobar Givens MD [address] [place] [address] LAPAROSCOPIC CHOLECYSTECTOMY POSSIBLE OPEN Admitting Comment on above: LAPAROSCOPIC CHOLECYSTECTOMY POSSIBLE OP EN Start: 07-13-2024 End: 07-13-2024 Laparoscopy surg cholecystectomy LAPAROSCOPIC CHOLECYSTECTOMY POSSIBLE OPEN Preoperative examination Acute cholecystitis 07/13/2024 8:30 AM EST [facility] Start: 07-12-2024 Subsequent hospital visit by physician 07/12/2024 10:21 AM EST Hospital Encounter Admitting [address] [place] [address] Escobar Givens MD [address] [address] Preoperative examination [Z01.818], Acute cholecystitis [K81.0] Admitting Comment on above: Preoperative examination [Z01.818], Acut e cholecystitis [K81.0] Start: 07-12-2024 Subsequent hospital visit by physician 07/12/2024 8:30 AM EST Hospital Encounter Admitting [address] [place] [address] Escobar Givens MD [address] [place] [address] Preoperative examination [Z01.818], Acute cholecystitis [K81.0] Admitting Comment on above: Preoperative examination [Z01.818], Acut e cholecystitis [K81.0] Start: 07-12-2024 End: 07-12-2024 Patient encounter procedure Gastroenterology Comment on above: Choledocholithiasis [K80.50] Start: 07-08-2024 End: 07-08-2024 Patient encounter procedure 07/08/2024 1:45 PM EST Office Visit [address] [address] Pre [address] Comment on above: Pre op Start: 07-08-2024 End: 07-08-2024 Anesthesia consultation 07/08/2024 1:00 PM EST PAT Pre Anesthesia [address] [address] 6, Pacc Main [address] [facility] [place] [place] [address] Pre op Pre Anesthesia Comment on above: Pre op Start: 07-08-2024 End: 07-08-2024 Patient encounter procedure General Surgery Comment on above: s/p perc roula tube placement (ACS) s/p perc roula tube placement (ACS) Yolande to teach Start: 07-08-2024 End: 07-08-2024 Patient encounter procedure 07/08/2024 9:30 AM EST Office Visit Cardiology [address] [place] [address] Jacobo Velez MD [address] [place] [address] Coronary artery disease involving [place] coronary artery of [place] heart without... Cardiology Comment on above: Coronary artery disease involving [place] coronary artery of [place] heart without... Start: 07-08-2024 End: 07-08-2024 ambulatory 07/08/2024 9:00 AM EST Results Only Cardiology [address] [place] [id number] Coronary artery disease involving [place] coronary artery of [place] heart without... Cardiology Comment on above: Coronary artery disease involving [place] coronary artery of [place] heart without... Start: 06-14-2024 End: 06-14-2024 Exchange biliary drg catheter prq w/img gid rs&i PERC IMAGE GUIDED EXCHANGE BILIARY DRAINAGE CATHETER W/RAD S&I INCLUDING DIAG CHOLANGIOGRAPHY WHEN PERFORMED Sepsis, due to unspecified organism, unspecified whether acute organ dysfunction present (HCC) 06/14/2024 2:21 PM EST ANGIO HB6 Start: 06-14-2024 End: 06-14-2024 Admission to same day surgery center 06/14/2024 1:10 PM EST - 06/14/2024 2:50 PM EST Surgery Angio [address] [place] [address] BEND SORTER [address] [place] [address] PERC IMAGE GUIDED EXCHANGE BILIARY DRAINAGE CATHETER W/RAD S&I INCLUDING DIAG CHOLANGIOGRAPHY WHEN PERFORMED Angio Comment on above: PERC IMAGE GUIDED EXCHANGE BILIARY DRAIN AGE CATHETER W/RAD S&I INCLUDING DIAG CHOLANGIOGRAPHY WHEN PERFORMED Start: 06-14-2024 End: 06-14-2024 Exchange biliary drg catheter prq w/img gid rs&i PERC IMAGE GUIDED EXCHANGE BILIARY DRAINAGE CATHETER W/RAD S&I INCLUDING DIAG CHOLANGIOGRAPHY WHEN PERFORMED Sepsis, due to unspecified organism, unspecified whether acute organ dysfunction present (HCC) 06/14/2024 1:10 PM EST MC ANGIO HB6 Start: 06-14-2024 Subsequent hospital visit by physician 06/14/2024 1:10 PM EST Hospital Encounter Angio [address] [place] [address] BEND SORTER [address] [facility] [place] [place] [address] Sepsis, due to unspecified organism, unspecified whether acute organ dysfunction present (HCC) [A41.9] Angio Comment on above: Sepsis, due to unspecified organism, uns pecified whether acute organ dysfunction present (HCC) [A41.9] Start: 06-07-2024 End: 09-06-2024 CBC W Auto Differential panel - Blood COMPLETE BLOOD COUNT AND DIFFERENTIAL Lab Routine Preoperative examination Acute cholecystitis Expected: 06/07/2024 (Approximate), Expires: 09/06/2024 [facility] Comment on above: Expected: 06/07/2024 (Approximate), Expi res: 09/06/2024 Start: 06-07-2024 End: 09-06-2024 Comprehensive metabolic 2000 panel - Serum or Plasma COMPREHENSIVE METABOLIC PANEL Lab Routine Preoperative examination Acute cholecystitis Expected: 06/07/2024 (Approximate), Expires: 09/06/2024 [facility] Comment on above: Expected: 06/07/2024 (Approximate), Expi res: 09/06/2024 Start: 06-07-2024 End: 09-06-2024 CONFIRM BLOOD TYPE CONFIRM BLOOD TYPE Blood Bank Routine Preoperative examination Acute cholecystitis Expected: 06/07/2024, Expires: 09/06/2024 [facility] Comment on above: Expected: 06/07/2024, Expires: Start: 06-07-2024 End: 09-06-2024 TYPE AND SCREEN,30 DAY TYPE AND SCREEN,30 DAY Blood Bank Routine Preoperative examination Acute cholecystitis Expected: 06/07/2024, Expires: 09/06/2024 [facility] Comment on above: Expected: 06/07/2024, Expires: Start: 05-19-2024 Thyroid stimulating hormone measurement TSH Level [facility] Start: 05-18-2024 Depression Screening Depression Screening [facility] Start: 05-05-2024 End: 05-05-2024 Exchange biliary drg catheter prq w/img gid rs&i PERC IMAGE GUIDED EXCHANGE BILIARY DRAINAGE CATHETER W/RAD S&I INCLUDING DIAG CHOLANGIOGRAPHY WHEN PERFORMED Sepsis, due to unspecified organism, unspecified whether acute organ dysfunction present (HCC) 05/05/2024 2:35 PM EDT ANGIO HB6 Start: 05-02-2024 End: 05-02-2024 Admission to same day surgery center 05/02/2024 11:30 AM EDT - 05/02/2024 1:00 PM EDT Surgery [facility] Radiology Procedure [address] [place] [address] Fannie Lopes MD [address] [place] [address] PERC IMAGE GUIDED EXCHANGE BILIARY DRAINAGE CATHETER W/RAD S&I INCLUDING DIAG CHOLANGIOGRAPHY WHEN PERFORMED [facility] Radiology Procedure Comment on above: PERC IMAGE GUIDED EXCHANGE BILIARY DRAIN AGE CATHETER W/RAD S&I INCLUDING DIAG CHOLANGIOGRAPHY WHEN PERFORMED Start: 05-02-2024 End: 05-02-2024 Exchange biliary drg catheter prq w/img gid rs&i PERC IMAGE GUIDED EXCHANGE BILIARY DRAINAGE CATHETER W/RAD S&I INCLUDING DIAG CHOLANGIOGRAPHY WHEN PERFORMED Acute cholecystitis 05/02/2024 11:30 AM EDT AV IR Start: 05-02-2024 Subsequent hospital visit by physician 05/02/2024 11:30 AM EDT Hospital Encounter [facility] Radiology Procedure [address] [place] [address] Fannie Lopes MD [address] [place] [address] Acute cholecystitis [K81.0] [facility] Radiology Procedure Comment on above: Acute cholecystitis [K81.0] Start: 04-15-2024 End: 04-15-2024 Patient encounter procedure 04/15/2024 11:30 AM EDT Office Visit General Surgery [address] [place] [address] Escobar Givens MD [address] [place] [address] s/p perc roula tube placement (ACS) General Surgery Comment on above: s/p perc roula tube placement (ACS) Start: 04-14-2024 End: 04-14-2024 Patient encounter procedure 04/14/2024 10:20 AM EDT Office Visit [facility] [address] [place] [id number] Ranjan Quiles MD [address] [place] [address] [facility] Start: 04-03-2024 COVID-19 Vaccine () COVID-19 Vaccine () [facility] Start: 04-03-2024 Covid-19 Vaccine ( season) Covid-19 Vaccine ( season) [facility] Start: 04-03-2024 COVID-19 Vaccine ( season) COVID-19 Vaccine ( season) [facility] Start: 04-03-2024 COVID-19 Vaccine ( season) COVID-19 Vaccine ( season) [facility] Start: 04-03-2024 COVID-19 Vaccine ( season) COVID-19 Vaccine ( season) [facility] Start: 04-03-2024 Influenza vaccination [facility] Start: 03-25-2024 FUV, Provider: Rose Ding, Status: Pen, Time: 11:00 AM FUV, Provider: Rose Ding, Status: Pen, Time: 11:00 AM [place] [address] DO Work Phone: Start: 03-25-2024 End: 03-25-2024 Patient encounter procedure [facility] Start: 03-19-2024 [facility] Start: 03-16-2024 Referral to general surgeon [facility] Start: 03-16-2024 Blood culture for bacteria, including anaerobic screen Blood Culture [facility] Start: 03-15-2024 aPTT in Platelet poor plasma by Coagulation assay [facility] Start: 03-15-2024 Hepatic function panel [facility] Start: 03-15-2024 [facility] Start: 03-14-2024 Referral to advertising coordinator [facility] Start: 03-14-2024 Hospital admission [facility] Start: 03-14-2024 [facility] Start: 03-03-2024 Patient referral [facility] Work Phone: Start: 01-18-2024 End: 01-18-2024 Patient encounter procedure 01/18/2024 10:30 AM EDT [facility] [address] [place] [address] Agus Nation DO [address], [facility] [place] [address] [facility] Start: 01-12-2024 COVID-19 Vaccine ( season) COVID-19 Vaccine () [facility] Start: 12-08-2023 End: 12-08-2023 Patient encounter procedure 12/08/2023 9:40 AM EDT [facility] [address] [place] [address] [facility] Start: 11-22-2023 Echocardiography [facility] Start: 10-20-2023 [facility] Start: 10-01-2023 End: 10-01-2023 Patient encounter procedure 10/01/2023 10:40 AM EST Office Visit [place] [id number] [place] [phone] Ranjan Quiles MD [address] [place] [address] [facility] Start: 09-28-2023 End: 09-28-2023 Patient encounter procedure 09/28/2023 1:30 PM EST Office Visit [facility] [address] [place] [address] Agus Nation, DO [address], [facility] [place] [address] [facility] Start: 09-11-2023 COVID-19 Vaccine (6 - Additional dose for Avinash series) COVID-19 Vaccine (6 - Additional dose for Avinash series) [facility] Start: 08-28-2023 CHIP TUNER antibody measurement [facility] Start: 08-28-2023 [facility] Start: 08-27-2023 End: 08-27-2024 RF Gastrointestinal tract upper Views W air contrast PO and W barium contrast PO Fluoroscopy upper GI with esophagus Imaging Routine Esophageal dysphagia Expected: 08/27/2023, Expires: 08/27/2024 [facility] Work Phone: Comment on above: Expected: 08/27/2023, Expires: Start: 08-03-2023 Advance Directive Discussion Advance Directive Discussion [facility] Start: 07-06-2023 COVID-19 Vaccine () COVID-19 Vaccine () [facility] Start: 06-23-2023 End: 06-23-2023 Clinical Support 06/23/2023 10:30 AM EST Clinical Support [facility] [address] [address] [facility] Start: 04-21-2023 Patient encounter procedure ENRRIQUE, Provider: [facility], Status: Pen, Time: 7:20 AM [facility] [address] DO Work Phone: Start: 04-01-2023 FUV, Provider: Ranjan Quiles, Status: Pen, Time: 9:30 AM FUV, Provider: Ranjan Quiles, Status: Pen, Time: 9:30 AM [facility] 250 DO Work Phone: Start: 04-01-2023 [facility] Start: 03-27-2023 FUVHOSP, Provider: Rose Ding, Status: Pen, Time: 10:00 AM FUVHOSP, Provider: Rose Ding, Status: Pen, Time: 10:00 AM [facility] 250 DO Work Phone: Start: 03-27-2023 Patient encounter procedure JAMESVPLUCIA, Provider: [facility], Status: Pen, Time: 9:00 AM [facility] 250 DO Work Phone: Start: 03-13-2023 [facility] Start: 03-09-2023 Consultation [facility] Start: 03-09-2023 Hospital admission [facility] Start: 03-09-2023 Dilation of Coronary Artery, One Artery, Bifurcation, with Two Drug-eluting Intraluminal Devices, Percutaneous Approach Dilation of Coronary Artery, One Artery, Bifurcation, with Two Drug-eluting Intraluminal Devices, Percutaneous Approach [facility] Start: 03-09-2023 Fluoroscopy of Left Heart using Low Osmolar Contrast Fluoroscopy of Left Heart using Low Osmolar Contrast [facility] Start: 03-09-2023 Fluoroscopy of Multiple Coronary Arteries using Low Osmolar Contrast Fluoroscopy of Multiple Coronary Arteries using Low Osmolar Contrast [facility] Start: 03-09-2023 Measurement of Cardiac Sampling and Pressure, Left Heart, Percutaneous Approach Measurement of Cardiac Sampling and Pressure, Left Heart, Percutaneous Approach [facility] Start: 03-09-2023 Ultrasonography of Single Coronary Artery, Intravascular Ultrasonography of Single Coronary Artery, Intravascular [facility] Start: 12-24-2022 FUV, Provider: Ranjan Quiles, Status: Pen, Time: 10:30 AM FUV, Provider: Ranjan Quiles, Status: Pen, Time: 10:30 AM [facility] 600 DO Work Phone: Start: 12-17-2022 POCKET REV, Provider: [facility] 4,[id number], Status: Pen, Time: 12:00 PM POCKET REV, Provider: [facility] 4,[id number], Status: Pen, Time: 12:00 PM -[facility] 250 DO Work Phone: Start: 12-17-2022 ICD BIV, Provider: [facility] 4,[id number], Status: Pen, Time: 10:00 AM ICD BIV, Provider: [facility] 4,[id number], Status: Pen, Time: 10:00 AM -[facility] 250 DO Work Phone: Start: 12-17-2022 [facility], Provider: Rose Ding, Status: Pen, Time: 10:00 AM [facility], Provider: Rose Ding, Status: Pen, Time: 10:00 AM [facility] 250 DO Work Phone: Start: 12-09-2022 NURSEVST, Provider: MASON DE GUZMAN CABIN WORKER 1,[id number], Status: Pen, Time: 9:30 AM NURSEVST, Provider: MASON DE GUZMAN CABIN WORKER 1,[id number], Status: Pen, Time: 9:30 AM [facility] 250 DO Work Phone: Start: 11-25-2022 [facility] Start: 11-22-2022 [facility] Start: 11-21-2022 Hospital admission [facility] Start: 11-21-2022 [facility] Start: 11-21-2022 Plain chest X-ray XR chest 1V portable [facility] Start: 11-21-2022 XR Chest Single view [facility] Start: 09-11-2022 [facility] Start: 09-10-2022 Referral to clinical belt builder [facility] Start: 09-10-2022 Hospital admission [facility] Start: 06-19-2022 FUV, Provider: Ranjan Qiules, Status: Pen, Time: 10:00 AM FUV, Provider: Ranjan Quiles, Status: Pen, Time: 10:00 AM [facility] 250 DO Work Phone: Start: 12-12-2021 FUV, Provider: Ranjan Quiles, Status: Pen, Time: 10:10 AM FUV, Provider: Ranjan Quiles, Status: Pen, Time: 10:10 AM [facility] [address] DO Work Phone: Start: 06-26-2021 NURSEVST, Provider: MASON DE GUZMAN CABIN WORKER 1,[id number], Status: Pen, Time: 11:00 AM NURSEVST, Provider: MASON DE GUZMAN CABIN WORKER 1,[id number], Status: Pen, Time: 11:00 AM [facility] [address] DO Work Phone: Start: 06-13-2021 FUV, Provider: Ranjan Quiles, Status: Pen, Time: 10:30 AM FUV, Provider: Ranjan Quiles, Status: Pen, Time: 10:30 AM [facility] 250 DO Work Phone: Start: 1965 Urine screening for protein CKD: Urine Protein Screening [facility] Start: 01-03-1964 Adult BMI Follow Up Plan Adult BMI Follow Up Plan [facility] Start: 01-03-1964 Annual PCP Team Chronic Disease Visit Annual PCP Team Chronic Disease Visit [facility] Start: 01-03-1964 Anxiety Screening Anxiety Screening [facility] Start: 01-03-1964 BP Controlled (<130/80) BP Controlled (<130/80) [facility] Start: 01-03-1964 Depression Screening Depression Screening [facility] Start: 01-03-1964 Diabetes mellitus screening Diabetes Screening [facility] Start: 01-03-1964 Hepatitis B surface antibody level LDL Cholesterol [facility] Start: 01-03-1964 Hepatitis C screening Hepatitis C Screening [facility] Start: 01-03-1964 Spirometry Spirometry [facility] Start: 1946 Creatinine measurement Creatinine Level [facility] Start: 1946 Lipid panel Lipid Panel [facility] Start: 1946 Medicare Annual Wellness Visit [facility] Start: 1946 Potassium measurement Potassium Level [facility] Albumin [Mass/volume ] in Serum or Plasma [facility] Albumin/Globulin ratio [facility] Bilirubin measuremen t, urine [facility] CARDIAC IMPLANTABLE DEVICE CHECK CARDIAC IMPLANTABLE DEVICE CHECK PACEART CRISTOBAL 03/21/2024 3:06 PM EDT [facility] Work Phone: CARDIAC IMPLANTABLE DEVICE CHECK CARDIAC IMPLANTABLE DEVICE CHECK PACEART Routine 07/12/2024 8:27 AM EST [facility] Work Phone: Centromere protein B Ab [Units/volume] in Serum [facility] Chromatin Ab [Units/volume] in Serum or Plasma [facility] Color of Urine [facility] Detection of hemoglobin [facility] End: 04-15-2025 ECG COMPLETE ECG COMPLETE ECG Routine Coronary artery disease, unspecified vessel or lesion type, unspecified whether angina present, unspecified whether [place] or transplanted heart 1 Occurrences starting 04/15/2024 until 04/15/2025 [facility] Work Phone: Comment on above: 1 Occurrences starting 04/15/2024 until 04/15/2025 End: 07-18-2025 ECG COMPLETE ECG COMPLETE ECG Routine VT (ventricular tachycardia) (HCC) 1 Occurrences starting 07/18/2024 until 07/18/2025 [facility] Work Phone: Comment on above: 1 Occurrences starting 07/18/2024 until 07/18/2025 Electrophoresis: [id number] [facility] Electrophoresis: [id number] [facility] Electrophoresis: beta-globulin [facility] Electrophoresis: niko ma globulin [facility] End: 12-17-2022 Electrophysiology Electrophysiology Electrophysiology Once for 1 Occurrences starting 12/17/2022 until 12/17/2022 [facility] Service Area Work Phone: Comment on above: Once for 1 Occurrences starting 12/18/19 until 12/17/2022 End: 06-14-2025 ERCP ERCP Endoscopy Routine Choledocholithiasis 1 Occurrences starting 06/14/2024 until 06/14/2025 [facility] Work Phone: Comment on above: 1 Occurrences starting 06/14/2024 until 06/14/2025 Globulin [Mass/volum e] in Serum [facility] Glucose [Mass/volume ] in Urine by Test strip [facility] Glucose measurement estimated from glycated hemoglobin [facility] End: 06-16-2025 Guidance for transhepatic exchange of catheter of Biliary ducts IR BILIARY DRAIN CHANGE Radiology Routine Acute cholecystitis Every 6 weeks for 8 Occurrences starting 06/16/2024 until 06/16/2025 [facility] Work Phone: Comment on above: Every 6 weeks for 8 Occurrences starting 06/16/2024 until 06/16/2025 H&P for surgery H&P FOR SURGERY Procedures Routine Preoperative examination Acute cholecystitis Ordered: 06/07/2024 [facility] Comment on above: Ordered: 06/07/2024 Gabrielle-1 extractable nuc lear Ab [Units/volume] in Serum [facility] Laparoscopy surg cholecystectomy LAPAROSCOPIC CHOLECYSTECTOMY POSSIBLE OPEN Preoperative examination Acute cholecystitis [facility] Measurement of keton es in urine using dipstick [facility] Methylmalonate [Moles/volume] in Serum or Plasma [facility] Patient Education [facility] Work Phone: Patient referral [facility] Work Phone: Protein [Mass/volume ] in Serum or Plasma [facility] Protein measurement, urine [facility] REFER FOR ADMIT INTERVIEW REFER FOR ADMIT INTERVIEW Procedures Routine Preoperative examination Acute cholecystitis Ordered: 06/07/2024 [facility] Work Phone: Comment on above: Ordered: 06/07/2024 SCL-70 extractable nuclear Ab [Units/volume] in Serum by Immunoassay [facility] Sjogrens syndrome-A extractable nuclear Ab [Units/volume] in Serum [facility] Sjogrens syndrome-B extractable nuclear Ab [Units/volume] in Serum [facility] Lopez extractable nu clear Ab [Units/volume] in Serum [facility] Urinalysis, specific gravity measurement [facility] Urine dipstick for nitrite [facility] Urine dipstick for specific gravity [facility] Urine pH test [facility] Urobilinogen concentration, test strip measurement [facility] XR Cervical spine 4 Views [facility] XR Lumbar spine 4 Views [facility] Immunizations Immunization Date Immunization Notes Care Provider Staci rico 11-17-2023 RSV, recombinant, protein subunit RSVpreF, adjuvant reconstituted, 0.5 mL, PF Agus Furlong DO Work Phone: [facility] [employer] 05-11-2023 Influenza Vaccine, Quadrivalent, Adjuvanted Agus Furlong DO Work Phone: [facility] 05-11-2023 influenza virus vacc ine, unspecified formulation Jyoti Chu [facility] 05-08-2022 Pfizer COVID-19 Vac Bivalent 30 MCG/0.3ML Intramuscular Suspension Agus G Furlong Work Phone: [facility] 05-01-2022 Fluzone High-Dose Quadrivalent 0.7 ML Intramuscular Suspension Prefilled Syringe Agus G Furlong Work Phone: [facility] 600 DO Work Phone: 05-01-2022 influenza virus vacc ine, unspecified formulation Kar BLANCHARD [facility] 05-06-2021 Fluzone High-Dose Quadrivalent 0.7 ML Intramuscular Suspension Prefilled Syringe Agus G Furlong Work Phone: [facility] 250 DO Work Phone: 05-06-2021 influenza virus vacc ine, unspecified formulation Kar RICE [facility] 05-06-2021 Pfizer-BioNTech COVI D-19 Vacc 30 MCG/0.3ML Intramuscular Suspension Agus G Furlong Work Phone: [facility] 11-06-2020 Pfizer-BioNTech COVI D-19 Vacc 30 MCG/0.3ML Intramuscular Suspension Agus Harrisonlong Work Phone: [facility] 10-23-2020 Pfizer-BioNTech COVI D-19 Vacc 30 MCG/0.3ML Intramuscular Suspension Agus Harrisonlong Work Phone: [facility] 10-12-2020 SARS-CoV-2 (COVID-19 ) Ad26 vaccine, recombinant Kar Sifteo [facility] 10-01-2020 SARS-CoV-2 (COVID-19 ) mRNA [id number] vax Kar Sifteo [facility] 09-25-2020 Pfizer-BioNTech COVI D-19 Vacc 30 MCG/0.3ML Intramuscular Suspension Agus Quilesng Work Phone: [facility] 09-21-2020 SARS-CoV-2 (COVID-19 ) Ad26 vaccine, recombinant Kar RICE [facility] 07-19-2020 pneumococcal polysaccharide vaccine, 23 valent Agus Harrisonlong Work Phone: [facility] 07-03-2020 pneumococcal polysaccharide vaccine, 23 valent Agus Huang Furlong Work Phone: [facility] 05-03-2020 influenza virus vacc ine, unspecified formulation Agus Quilesng Work Phone: [facility] 05-03-2020 influenza, seasonal, injectable Agus Huang [employer]Labslong Work Phone: [place] [address] DO Work Phone: 04-23-2020 influenza virus vacc ine, unspecified formulation Kar RICE [facility] 04-23-2020 influenza, high dose seasonal, preservative-free Agus G Furlong Work Phone: [place] [phone] DO Work Phone: 04-18-2020 influenza virus vacc ine, unspecified formulation Kar RICE [facility] 04-18-2020 Influenza, High-dose , Quadrivalent Lois Juan Pablo [employer] DIRECT[employer] Work Phone: [facility] 04-03-2020 influenza virus vacc ine, unspecified formulation Kar RICE [facility] 04-03-2020 influenza, high dose seasonal, preservative-free Agus G Furlong Work Phone: [place] [address] DO Work Phone: 08-04-2019 pneumococcal conjuga te vaccine, 13 valent Agus G Furlong Work Phone: [place] [address] DO Work Phone: 08-04-2019 zoster vaccine recombinant Agus G Furlong Work Phone: [facility] 08-03-2019 pneumococcal conjuga te vaccine, 13 valent Kar RICE [facility] 05-24-2019 influenza virus vacc ine, unspecified formulation Kar RICE [facility] 05-24-2019 influenza, high dose seasonal, preservative-free Agus G Furlong Work Phone: [facility] 250 DO Work Phone: 05-24-2019 pneumococcal conjuga te vaccine, 13 valent Agus G Furlong Work Phone: [facility] 05-24-2019 zoster vaccine recombinant Agus G Furlong Work Phone: [facility] 05-03-2019 influenza virus vacc ine, unspecified formulation Agus G Furlong Work Phone: [facility] 05-03-2019 influenza, high dose seasonal, preservative-free Lois Nguyễn [employer] DIRECTOR Work Phone: [facility] 05-03-2019 influenza, seasonal, injectable Agus G Furlong Work Phone: [place] [address] DO Work Phone: 05-03-2019 pneumococcal conjuga te vaccine, 13 valent Agus G Furlong Work Phone: [facility] 05-03-2019 zoster vaccine recombinant Agus G Furlong Work Phone: [facility] 08-03-2018 pneumococcal conjuga te vaccine, 13 valent Agus G Furlong Work Phone: [facility] 07-22-2018 tetanus toxoid, redu alina diphtheria toxoid, and acellular pertussis vaccine, adsorbed Agus G Furlong Work Phone: [facility] 07-03-2018 tetanus toxoid, redu alina diphtheria toxoid, and acellular pertussis vaccine, adsorbed Agus G Furlong Work Phone: [facility] 05-03-2018 influenza virus vacc ine, unspecified formulation Agus G Furlong Work Phone: [facility] 05-03-2018 influenza, injectabl e, quadrivalent, contains preservative Agus Harrisonlong Work Phone: [place] [address] DO Work Phone: 05-03-2017 influenza virus vacc ine, unspecified formulation Agus Harrisonlong Work Phone: [place] [address] DO Work Phone: 05-17-2016 influenza virus vacc ine, unspecified formulation Kar Sifteo [facility] 05-17-2016 influenza, high dose seasonal, preservative-free Agus Harrisonlong Work Phone: [place] [address] DO Work Phone: 05-03-2016 influenza virus vacc ine, unspecified formulation Agus Harrisonlong Work Phone: [facility] 08-03-2015 pneumococcal polysaccharide vaccine, 23 valent Agus Huang [employer] Work Phone: [place] [address] DO Work Phone: 05-03-2015 influenza virus vacc ine, unspecified formulation Agus Huang [employer] Work Phone: [place] [address] DO Work Phone: 06-03-2014 influenza virus vacc ine, unspecified formulation Agus Michel Furlong Work Phone: [place] [address] DO Work Phone: 06-01-2014 influenza virus vacc ine, unspecified formulation Kar RICE [facility] 06-01-2014 influenza, seasonal, injectable Agus Michel Furlong Work Phone: [place] [address] DO Work Phone: 05-03-2014 influenza virus vacc ine, unspecified formulation Kar BLANCHARD [facility] 05-03-2014 influenza, seasonal, injectable Agus Harrisonlong Work Phone: [place] [address] DO Work Phone: 10-01-2012 pneumococcal polysaccharide vaccine, 23 valent Agus Huang Furlong Work Phone: [facility] 08-03-2011 pneumococcal polysaccharide vaccine, 23 valent Agus Huang Furlong Work Phone: [place] [address] DO Work Phone: 05-15-2010 influenza A monovale nt (H5N1), adjuvanted, National stockpile 2012 [employer] Work Phone: [facility] 05-15-2010 influenza virus vacc ine, whole virus [facility] Work Phone: [place] [address] DO Work Phone: 05-15-2010 influenza, whole Kar BLANCHARD [facility] 06-20-2009 novel influenza-H1N1 -09, preservative-free, injectable Agus Harrisonlong Work Phone: [place] [address] DO Work Phone: 05-08-2008 tetanus toxoid, redu alina diphtheria toxoid, and acellular pertussis vaccine, adsorbed Agus Huang Furlong Work Phone: [facility] 05-19-2007 influenza A monovale nt (H5N1), adjuvanted, National stockpile 2012 [employer] Work Phone: [facility] 05-19-2007 influenza virus vacc ine, whole virus Agus Huang Furlong Work Phone: [facility] 250 DO Work Phone: 05-19-2007 influenza, whole Kar RICE [facility] influenza virus vacc ine, unspecified formulation Agus Huang Furlong Work Phone: [facility] 250 DO Work Phone: Comment on above: 2012May 20102008 Payers Date Payer Category Payer Medicare [id number] 2023 Self-pay [id number] 2021 Medicare [id number] 2021 Medicare (Managed Care) [employer] [facility] MEDICARE [id number] 2021 Medicare HMO [employer] MEDICARE [id number] 1959 Private Health Insurance [facility] [id number] 1945 Unknown [id number] 2.16840.1.854228.3.579.2. 593 1945 Unknown [id number] 2.160.1.715366.3.579.2. 593 1946 Unknown [id number] 2.16840.1.250100.3.579.2. 356 1946 Unknown [id number] 2.0.1.511007.3.579.2. 356 1946 Unknown [id number] 2.16840.1.533403.3.579.2. 356 1946 Unknown [id number] 2.0.1.088588.3.579.2. 356 1946 Unknown [id number] 2.840.1.553587.3.579.2. 356 1946 Unknown [id number] 2.0.1.511439.3.579.2. 356 1946 Unknown [id number] 2.16840.1.417075.3.579.2. 356 1946 Unknown [id number] 2.16840.1.901308.3.579.2. 356 1946 Unknown [id number] 2.16840.1.127214.3.579.2. 356 1946 Unknown [id number] 2.16840.1.099385.3.579.2. 356 1946 Unknown [id number] 2.16.840.1.889407.3.579.2. 356 1946 Unknown [id number] 2.16.840.1.761195.3.579.2. 356 1946 Unknown [id number] 2.16.840.1.304145.3.579.2. 1946 Unknown [id number] 2.16.840.1.625019.3.579.2. 1946 Unknown [id number] 2.16.840.1.976199.3.579.2. 1946 Unknown [id number] 2.840.1.508124.3.579.2. 1946 Unknown [id number] 2.840.1.303352.3.579.2. 1946 Unknown [id number] 2.840.1.189406.3.579.2. 1946 Unknown [id number] 2.16840.1.395068.3.579.2. 1946 Unknown [id number] 2.16840.1.577659.3.579.2. 1946 Unknown [id number] 2.16840.1.928196.3.579.2. 1946 Unknown [id number] 2.16840.1.924356.3.579.2. 1946 Unknown [id number] 2.16840.1.651551.3.579.2. 1946 Unknown [id number] 2.16840.1.643815.3.579.2. 8 1946 Unknown [id number] 2.16.840.1.124816.3.579.2. 1068 1946 Unknown [id number] 2.16840.1.868253.3.579.2. 1068 1946 Unknown [id number] 2.16.840.1.921832.3.579.2. 8 1946 Unknown [id number] 2.16.840.1.387847.3.579.2. 1068 1946 Unknown [id number] 2.16.840.1.846878.3.579.2. 8 1946 Unknown [id number] 2.16.840.1.095061.3.579.2. 8 1946 Unknown [id number] 2.16.840.1.552010.3.579.2. 6 1946 Unknown [id number] 2.16.840.1.637978.3.579.2. 9 1946 Unknown [id number] 2.16840.1.550062.3.579.2. 1258 1946 Unknown [id number] 2.16.840.1.096892.3.579.2. 1285 1946 Unknown [id number] 2.16840.1.425611.3.579.2. 1285 1946 Unknown [id number] 2.16840.1.304230.3.579.2. 1285 1946 Unknown [id number] 2.16840.1.900502.3.579.2. 1285 1946 Unknown [id number] 2.16.840.1.109743.3.579.2. 1285 1946 Unknown [id number] 2.16840.1.554966.3.579.2. 6 1946 Unknown [id number] 2.16.840.1.769896.3.579.2. 6 1946 Unknown [id number] 2.16840.1.840299.3.579.2. 727 1946 Unknown [id number] 2.16.840.1.640674.3.579.2. 1244 1946 Unknown [id number] 2.16.840.1.868539.3.579.2. 1244 1946 Unknown [id number] 2.16.840.1.449165.3.579.2. 1244 1946 Unknown [id number] 2.16.840.1.106894.3.579.2. 1244 Private Health Insurance [facility] [id number] Unknown Unknown [id number] 2.16.840.1.901479.3.579.2. 531 Unknown [id number] 2.16.840.1.298993.3.579.2. 531 Unknown [id number] 2.16.840.1.358519.3.579.2. 531 Unknown [id number] 2.16.840.1.826168.3.579.2. 531 Unknown [id number] 2.16.840.1.160192.3.579.2. 531 Unknown [id number] 2.16.840.1.190385.3.579.2. 531 Unknown [id number] 2.16.840.1.399390.3.579.2. 531 Unknown [id number] 2.16.840.1.216506.3.579.2. 531 Unknown [id number] 2.16.840.1.351634.3.579.2. 531 Unknown [id number] 2.16.840.1.484469.3.579.2. 531 Unknown [id number] 2.16.840.1.441011.3.579.2. 531 Social History Date Type Detail Facility Start: 08-21-2022 End: 09-28-2023 No illicit drug use No illicit drug use [facility] [place] [phone] DO Work Phone: Comment on above: rare; quit 1975; 2-3 times weekly; Start: 09-02-2019 End: 05-20-2023 Tobacco smoking status NHIS Never smoked tobacco (finding) [facility] Start: 1945 Sex Assigned At Male F [facility] Tobacco smoking status Never [facility] Start: 08-21-2022 End: 09-28-2023 Sex Assigned At Male [facility] Start: 08-13-2022 End: 08-27-2023 Tobacco smoking status NHIS Ex-smoker (finding) [facility] Tobacco smoking stat [facility] Tobacco smoking consumption unknown [facility] Work Phone: Start: 1945 Sex Assigned At Not on file U [facility] Work Phone: Start: 05-16-2023 End: 08-15-2024 Exposure to SARS-CoV-2 (event) Not sure [facility] End: 08-03-1971 History of tobacco use Current smoker [facility] History of tobacco use Pipe Smoker [facility] Start: 08-21-2022 End: 08-27-2023 Tobacco use and exposure Smokeless tobacco non-user [facility] Start: 08-27-2023 End: 02-15-2024 Alcohol intake Current drinker of alcohol (finding) [facility] How often to you hav e a drink containing alcohol? 2-4 times a month [facility] How many standard drinks containing alcohol do you have on a typical day? 1 or 2 [facility] How often do you hav e 6 or more drinks on 1 occasion? Never [facility] Start: 08-27-2023 Tobacco Comment 2 years smoked pipe [facility] End: 08-03-1971 History of tobacco use Cigarette Smoker [facility] Start: 10-01-2023 Alcohol Comment very little [facility] Work Phone: Has the [employer], or [employer] company threatened to shut off services in your home in past 12Mo No [facility] Are you now , , , , never or living with a partner? [facility] Do you feel stress - tense, restless, nervous, or anxious, or unable to sleep at night because your mind is troubled all the time - these days [OSQ] Only a little [facility] (I/We) worried wheth er (my/our) food would run out before (I/we) got money to buy more. Never true [facility] Start: 03-08-2015 End: 09-06-2024 Sex Male (finding) [facility] Start: 07-08-2024 Tobacco Comment Quit 50+ years ago [facility] Start: 07-08-2024 Alcohol Comment less than week ly, maybe once per year [facility] Medical Equipment Procedure Code Equipment Code Equipment Origin al Text Equipment Identifier Dates CL STENT HALIMA FRONTIER 4.0 X 12 FDA Start: 03-12-2023 CL STENT HALIMA FRONTIER 4.0 X 22 FDA Start: 03-12-2023 Femoral artery closure plug/patch, synthetic polymer [id number] FDA Start: 03-12-2023 CL STENT HALIMA FRONTIER 4.0 X 12 FDA Start: 03-12-2023 CL STENT HALIMA FRONTIER 4.0 X 22 FDA Start: 03-12-2023 CL STENT HALIMA FRONTIER 4.0 X 12 FDA Start: 03-12-2023 CL STENT HALIMA FRONTIER 4.0 X 22 FDA Start: 03-12-2023 CL STENT HALIMA FRONTIER 4.0 X 12 FDA Start: 03-12-2023 CL STENT HALIMA FRONTIER 4.0 X 22 FDA Start: 03-12-2023 CL STENT HALIMA FRONTIER 4.0 X 12 FDA Start: 03-12-2023 CL STENT HALIMA FRONTIER 4.0 X 22 FDA Start: 03-12-2023 CL STENT HALIMA FRONTIER 4.0 X 12 FDA Start: 03-12-2023 CL STENT HALIMA FRONTIER 4.0 X 22 FDA Start: 03-12-2023 CL STENT HALIMA FRONTIER 4.0 X 12 FDA Start: 03-12-2023 CL STENT HALIMA FRONTIER 4.0 X 22 FDA Start: 03-12-2023 CL STENT HALIMA FRONTIER 4.0 X 12 FDA Start: 03-12-2023 CL STENT HALIMA FRONTIER 4.0 X 22 FDA Start: 03-12-2023 CL STENT HALIMA FRONTIER 4.0 X 12 FDA Start: 03-12-2023 CL STENT HALIMA FRONTIER 4.0 X 22 FDA Start: 03-12-2023 CL STENT HALIMA FRONTIER 4.0 X 12 FDA Start: 03-12-2023 CL STENT HALIMA FRONTIER 4.0 X 22 FDA Start: 03-12-2023 CL STENT HALIMA FRONTIER 4.0 X 12 FDA Start: 03-12-2023 CL STENT HALIMA FRONTIER 4.0 X 22 FDA Start: 03-12-2023 CL STENT HALIMA FRONTIER 4.0 X 12 FDA Start: 03-12-2023 CL STENT HALIMA FRONTIER 4.0 X 22 FDA Start: 03-12-2023 CL STENT HALIMA FRONTIER 4.0 X 12 FDA Start: 03-12-2023 CL STENT HALIMA FRONTIER 4.0 X 22 FDA Start: 03-12-2023 CL STENT HALIMA FRONTIER 4.0 X 12 FDA Start: 03-12-2023 CL STENT HALIMA FRONTIER 4.0 X 22 FDA Start: 03-12-2023 CL STENT HALIMA FRONTIER 4.0 X 12 FDA Start: 03-12-2023 CL STENT HALIMA FRONTIER 4.0 X 22 FDA Start: 03-12-2023 [id number] Start : 12-17-2022 [facility] [id number] Start: 03-03-2000 [id number] Star t: 12-01-2022 [id number] Start : 12-01-2022 [id number] Start : 12-01-2022 CL STENT HALIMA FRONTIER 4.0 X 12 FDA Start: 03-12-2023 CL STENT HALIMA FRONTIER 4.0 X 22 FDA Start: 03-12-2023 Hemoblast Bellow s And 1 Ea Short 10 Cm Cannula - [id number] Start: 07-13-2024 CL STENT HALIMA FRONTIER 4.0 X 12 FDA Start: 03-12-2023 CL STENT HALIMA FRONTIER 4.0 X 22 FDA Start: 03-12-2023 CL STENT HALIMA FRONTIER 4.0 X 12 FDA Start: 03-12-2023 CL STENT HALIMA FRONTIER 4.0 X 22 FDA Start: 03-12-2023 Goals Date Patient Goal Desired Activity /State Personal health goal Functional Status Date Assessment Result Facility 09-06-2024 Functional status Patient at Baseline [facility] Work Phone: 05-25-2024 Functional Status N/A [facility] 03-14-2024 Functional status Patient at Baseline [facility] Work Phone: 05-20-2023 Functional Status N/A [facility] 03-13-2023 Functional status Patient at Baseline [facility] Work Phone: 11-25-2022 Functional status Patient at Baseline [facility] Work Phone: 10-13-2022 Functional Status N/A [facility] 09-29-2022 Functional Status N/A [facility] 09-11-2022 Functional status Patient at Baseline [facility] Work Phone: 05-05-2022 Functional Status N/A [facility] Mental Status Date Assessment Result Facility 09-06-2024 Cognitive function Cognitive Sta tus Patient at Baseline [facility] Work Phone: 03-14-2024 Cognitive function Cognitive Sta tus Patient at Baseline [facility] Work Phone: 03-13-2023 Cognitive function Cognitive Sta tus Patient at Baseline [facility] Work Phone: 11-25-2022 Cognitive function Cognitive Sta tus Patient at Baseline [facility] Work Phone: 09-11-2022 Cognitive function Cognitive Sta tus Patient at Baseline [facility] Work Phone: Clinical Notes 05-05-2022 to 09-06-2024 Telephone Encounter - Faith Booth - 09/06/2024 11:25 AM ESTTelephone Encounter - Agus Nation DO - 09/06/2024 11:25 AM ESTTelephone Encounter - Faith Booth - 09/06/2024 11:25 AM EST Note Date & Type Note Facility 09-06-2024 Miscellaneous Notes Formattin g of this note might be different from the original. Is getting discharged today from [facility] and he is high risk, when would we be able to get him in for TCM Thursday 9:00? Okay Schedule either 09/08 at 1:30 or 09/09 at 9:00 In assisted living documented in this encounter [facility] 09-06-2024 Telephone encount er Note Is getting discharged today from [facility] and he is high risk, when would we be able to get him in for TCM Thursday 9:00? [facility] 09-06-[facility]24 Telephone encount er Note Okay [facility] 09-06-2024 Telephone encount er Note Schedule either 09/08 at 1:30 or 02/07 at 9:00 [facility] 09-06-2024 Telephone encount er Note In assisted living [facility] 09-06-2024 Progress note Note Date/Time September 06, 2024 2:21am [facility] [address] [place] [address] Hospitalist Progress Note Signed Patient: Shawna Hernandes MR#: [id number] : 1945 Acct:[id number] Age/Sex: 79 / M Adm Date: 5 Loc: 3T Room: [address] [place] [address] Type: ADM IN Attending Dr: Marli Fermin MD Copies to: ~ Date of Service: 09/05/2024 Subjective Subjective Narrative: Assessment And Plan 79M PMH ischemic cardiomyopathy EF 15% s/p ICD, CAD s/p PCI to LCx x2 March 2023, 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 Then he was sent home. He had PT at home and he could nottransfer whatsoever and has global weakness that is increased since he has been home for about 10 days. He reported two falls at home. urinalysis didn?t show any UTI and no sign of other infection Respiratory (Upper) Panel, PCR negative CT abd shows Recent cholecystectomy changes. No developing fluid collection. No pneumoperitoneum. No acute abdominal or pelvic findings. Right gluteal subcutaneous stranding. Consider contusion. No hematoma. CT brain without contrast shows no acute intracranial process TSH wnl b12 240 borderline low c/w oral supplement will give few IM doses while inpatient Likely due to Impaired strength due to skeletal muscle strength and mass declinewith age and immobility. PT/OT recommended Home with Home Health vs Inpatient Rehab Unit LINTERVAL HPI: As Above, Pt resting in bed. feeling better. Denies any chest pain, SOB Chronic diseases: Unless mentioned Above, Essential home medications have been continued. DVT Px: Addressed Disposition: SNF Plan of care Discussed with: the medical team, the patient L Exam Physical Exam Vital Signs: Temp Pulse Resp BP Pulse Ox O2 Del Method 36.2 C L 79 16 120/74 98 Room Air 09/05/24 09:03 09/05/24 13:30 09/05/24 13:30 09/05/24 13:30 09/05/24 13:30 09/05/24 13:30 Narrative: GEN: NAD, Cooperative NECK: ? JVD LUNGS: CTA. normal respiratory effort CV: nl S1 S2; no M/R/G ABD: Soft, ND, NT, + BS, ? rebound, ? guarding, ? HSM EXT: No calf muscle tenderness NEURO: Generalized weakness, ? FND. Objective Lab Results 09/01/24 17:07 09/04/24 06:21 Meds Allergies and Active Meds Allergies No Known Allergies Allergy (Verified 09/01/24 15:35) Active Meds: Active Medications Generic Name Dose Route Start Last Admin Trade Name Freq PRN Reason Stop Dose Admin Acetaminophen 650 mg 09/01/24 18:13 09/03/24 12:52 Acetaminophen 325 Mg Tablet PO 09/01/25 18:12 650 mg Q6HR PRN Administration Pain Scale 1 - 3 or fever Amiodarone HCl 200 mg 09/02/24 09:00 09/05/24 09:05 Amiodarone 200 Mg Tablet PO 09/02/25 08:59 200 mg QAM MEGHA Administration Aspirin 81 mg 09/02/24 09:00 09/05/24 09:06 Aspirin 81 Mg Tablet. PO 09/02/25 08:59 81 mg QAM MEGHA Administration Atorvastatin Calcium 80 mg 09/01/24 21:00 09/04/24 21:41 Atorvastatin 80 Mg Tablet PO 09/01/25 20:59 80 mg QPM MEGHA Administration Bumetanide 1 mg 09/02/24 09:00 09/03/24 10:52 Bumetanide 1 Mg Tablet PO 09/02/25 08:59 Not Given QAM MEGHA Carvedilol 3.125 mg 09/04/24 17:00 09/05/24 09:05 Carvedilol 3.125 Mg Tablet PO 09/04/25 16:59 3.125 mg BID.WITH.MEALS MEGHA Administration Clopidogrel Bisulfate 75 mg 09/02/24 09:00 09/05/24 09:06 Clopidogrel Bisulfate 75 Mg Tablet PO 09/02/25 08:59 75 mg QAM MEGHA Administration Dapagliflozin 10 mg 09/02/24 09:00 09/03/24 10:53 Dapagliflozin 10 Mg Tablet PO 09/02/25 08:59 Not Given DAILY MEGHA Enoxaparin Sodium 40 mg 09/02/24 10:00 09/05/24 09:06 Enoxaparin 40 Mg/0.4 Ml Syringe SUBCUT 09/02/25 09:59 40 mg DAILY@10 MEGHA Administration Folic Acid 1 tab 09/02/24 09:00 09/05/24 09:06 Cyanocobalamin/Fa/Pyridoxine 1 Tab Tablet PO 09/02/25 08:59 1 tab QAM MEGHA Administration Levothyroxine Sodium 50 mcg 09/02/24 06:30 09/05/24 06:18 Levothyroxine 50 Mcg Tablet PO 09/02/25 06:29 50 mcg DAILY.0630 MEGHA Administration Loperamide HCl 2 mg 09/01/24 19:51 Loperamide 2 Mg Capsule PO 09/01/25 19:50 Q6H PRN loose stool Magnesium Hydroxide 30 ml 09/01/24 19:51 Magnesium Hydroxide Susp 30 Ml Udc PO 09/01/25 19:50 DAILY PRN constipation Melatonin 5 mg 09/01/24 18:13 09/04/24 21:41 Melatonin 5 Mg Tablet PO 09/01/25 18:12 5 mg QHS PRN Administration Insomnia Mexiletine HCl 150 mg 09/01/24 22:00 09/05/24 14:04 Mexiletine 150 Mg Capsule PO 09/01/25 21:59 150 mg TID MEGHA Administration Nitroglycerin 0.4 mg 09/01/24 19:51 Nitroglycerin 0.4 Mg Tab.Subl SUBLINGUAL 09/01/25 19:50 Q5MIN.X3 PRN Chest Pain Ondansetron HCl 4 mg 09/01/24 18:13 Ondansetron 4 Mg/2 Ml Vial IV-PUSH 09/01/25 18:12 Q8H PRN Nausea And Vomiting Oxycodone/Acetaminophen 1 tab 09/01/24 20:19 Oxycodone/Acetaminophen 5-325 Mg Tablet PO Q6H PRN pain Pantoprazole Sodium 40 mg 09/02/24 07:30 09/05/24 09:07 Pantoprazole 40 Mg Tablet. PO 09/02/25 07:29 Not Given DAILY.AC.BKFAST MEGHA Sacubitril/Valsartan 1 tab 09/04/24 07:00 09/05/24 09:06 Sacubitril/Valsartan 24-26mg 1 Tab Tablet PO 09/04/25 06:59 1 tab BID MEGHA Administration Sennosides 8.6 mg 09/01/24 21:00 09/05/24 09:05 Sennosides 8.6 Mg Tablet PO 09/01/25 20:59 8.6 mg BID MEGHA Administration Sodium Chloride 0 ml 09/01/24 15:32 09/01/24 18:17 Sodium Chloride 0.9 % 10 Ml Syringe IV-PUSH 09/01/25 15:31 10 ml PRN PRN Administration Flush Spironolactone 12.5 mg 09/06/24 09:00 Spironolactone 12.5 Mg Tablet PO 09/06/25 08:59 DAILY MEGHA A&P - Hospitalist Assessment/Plan (1) Generalized weakness: (2) Ischemic cardiomyopathy: (3) Chronic HFrEF (heart failure with reduced ejection fraction): Plan Documented By: Marli Fermin MD 09/05/24 6604 Signed By: <Electronically signed by Marli Fermin MD> 09/06/241 [facility] Work Phone: 1(700) 790-727202-04-2025 [place] [address] Hospitalist Progress Note Signed Patient: Shawna Hernandes MR#: [id number] : 1945 Acct:[id number] Age/Sex: 79 / M Adm Date: 5 Loc: Room: [address] [place] [address] Type: ADM IN Attending Dr: Marli Fermin MD Copies to: ~ Date of Service: 09/05/2024 Subjective Subjective Narrative: Assessment And Plan 79M PMH ischemic cardiomyopathy EF 15% s/p ICD, CAD s/p PCI to LCx x2 March 2023, 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 Then he was sent home. He had PT at home and he could nottransfer whatsoever and has global weakness that is increasedsince he has been home for about 10 days. He reported two falls at home. urinalysis didn?t show any UTI and no sign of other infection Respiratory (Upper) Panel, PCR negative CT abd shows Recent cholecystectomy changes. No developing fluid collection. No pneumoperitoneum. No acute abdominal or pelvic findings. Right gluteal subcutaneous stranding. Consider contusion. No hematoma. CT brain without contrast shows no acute intracranial process TSH wnl b12 240 borderline low c/w oral supplement will give few IM doses while inpatient Likely due to Impaired strength due to skeletal muscle strength and mass declinewith age and immobility. PT/OT recommended Home with Home Health vs Inpatient Rehab Unit LINTERVAL HPI: As Above, Pt resting in bed. feeling better. Denies any chest pain, SOB Chronic diseases: Unless mentioned Above, Essential home medications have been continued. DVT Px: Addressed Disposition: SNF Plan of care Discussed with: the medical team, the patient L Exam Physical Exam Vital Signs: Temp Pulse Resp BP Pulse Ox O2 Del Method 36.2 C L 79 16 120/74 98 Room Air 09/05/24 09:03 09/05/24 13:30 09/05/24 13:30 09/05/24 13:30 09/05/24 13:30 09/05/24 13:30 Narrative: GEN: NAD, Cooperative NECK: ? JVD LUNGS: CTA. normal respiratory effort CV: nl S1 S2; no M/R/G ABD: Soft, ND, NT, + BS, ? rebound, ? guarding, ? HSM EXT: No calf muscle tenderness NEURO: Generalized weakness, ? FND. Objective Lab Results 09/01/24 17:07 09/04/24 06:21 Meds Allergies and Active Meds Allergies No Known Allergies Allergy (Verified 09/01/24 15:35) Active Meds: Active Medications Generic Name Dose Route Start Last Admin Trade Name Freq PRN Reason Stop Dose Admin Acetaminophen 650 mg 09/01/24 18:13 09/03/24 12:52 Acetaminophen 325 Mg Tablet PO 09/01/25 18:12 650 mg Q6HR PRN Administration Pain Scale 1 - 3 or fever Amiodarone HCl 200 mg 09/02/24 09:00 09/05/24 09:05 Amiodarone 200 Mg Tablet PO 09/02/25 08:59 200 mg QAM MEGHA Administration Aspirin 81 mg 09/02/24 09:00 09/05/24 09:06 Aspirin 81 Mg Tablet.Dr PO 09/02/25 08:59 81 mg QAM MEGHA Administration Atorvastatin Calcium 80 mg 09/01/24 21:00 09/04/24 21:41 Atorvastatin 80 Mg Tablet PO 09/01/25 20:59 80 mg QPM MEGHA Administration Bumetanide 1 mg 09/02/24 09:00 09/03/24 10:52 Bumetanide 1 Mg Tablet PO 09/02/25 08:59 Not Given QAM MEGHA Carvedilol 3.125 mg 09/04/24 17:00 09/05/24 09:05 Carvedilol 3.125 Mg Tablet PO 09/04/25 16:59 3.125 mg BID.WITH.MEALS MEGHA Administration Clopidogrel Bisulfate 75 mg 09/02/24 09:00 09/05/24 09:06 Clopidogrel Bisulfate 75 Mg Tablet PO 09/02/25 08:59 75 mg QAM MEGHA Administration Dapagliflozin 10 mg 09/02/24 09:00 09/03/24 10:53 Dapagliflozin 10 Mg Tablet PO 09/02/25 08:59 Not Given DAILY MEGHA Enoxaparin Sodium 40 mg 09/02/24 10:00 09/05/24 09:06 Enoxaparin 40 Mg/0.4 Ml Syringe SUBCUT 09/02/25 09:59 40 mg DAILY@10 MEGHA Administration Folic Acid 1 tab 09/02/24 09:00 09/05/24 09:06 Cyanocobalamin/Fa/Pyridoxine 1 Tab Tablet PO 09/02/25 08:59 1 tab QAM MEGHA Administration Levothyroxine Sodium 50 mcg 09/02/24 06:30 09/05/24 06:18 Levothyroxine 50 Mcg Tablet PO 09/02/25 06:29 50 mcg DAILY.0630 MEGHA Administration Loperamide HCl 2 mg 09/01/24 19:51 Loperamide 2 Mg Capsule PO 09/01/25 19:50 Q6H PRN loose stool Magnesium Hydroxide 30 ml 09/01/24 19:51 Magnesium Hydroxide Susp 30 Ml Udc PO 09/01/25 19:50 DAILY PRN constipation Melatonin 5 mg 09/01/24 18:13 09/04/24 21:41 Melatonin 5 Mg Tablet PO 09/01/25 18:12 5 mg QHS PRN Administration Insomnia Mexiletine HCl 150 mg 09/01/24 22:00 09/05/24 14:04 Mexiletine 150 Mg Capsule PO 09/01/25 21:59 150 mg TID MEGHA Administration Nitroglycerin 0.4 mg 09/01/24 19:51 Nitroglycerin 0.4 Mg Tab.Subl SUBLINGUAL 09/01/25 19:50 Q5MIN.X3 PRN Chest Pain Ondansetron HCl 4 mg 09/01/24 18:13 Ondansetron 4 Mg/2 Ml Vial IV-PUSH 09/01/25 18:12 Q8H PRN Nausea And Vomiting Oxycodone/Acetaminophen 1 tab 09/01/24 20:19 Oxycodone/Acetaminophen 5-325 Mg Tablet PO Q6H PRN pain Pantoprazole Sodium 40 mg 09/02/24 07:30 09/05/24 09:07 Pantoprazole 40 Mg Tablet. PO 09/02/25 07:29 Not Given DAILY.AC.BKFAST MEGHA Sacubitril/Valsartan 1 tab 09/04/24 07:00 09/05/24 09:06 Sacubitril/Valsartan 24-26mg 1 Tab Tablet PO 09/04/25 06:59 1 tab BID MEGHA Administration Sennosides 8.6 mg 09/01/24 21:00 09/05/24 09:05 Sennosides 8.6 Mg Tablet PO 09/01/25 20:59 8.6 mg BID MEGHA Administration Sodium Chloride 0 ml 09/01/24 15:32 09/01/24 18:17 Sodium Chloride 0.9 % 10 Ml Syringe IV-PUSH 09/01/25 15:31 10 ml PRN PRN Administration Flush Spironolactone 12.5 mg 09/06/24 09:00 Spironolactone 12.5 Mg Tablet PO 09/06/25 08:59 DAILY MEGHA A&P - Hospitalist Assessment/Plan (1) Generalized weakness: (2) Ischemic cardiomyopathy: (3) Chronic HFrEF (heart failure with reduced ejection fraction): Plan Documented By: Marli Fermin MD 09/05/24 1458 Signed By: 09/06/24 0221 [facility]02-03-2025 Progress note Author Ranjan Quiles [facility] Note Date/Time September 05, 2024 1 0:56am [facility] [address] [place] [address] Cardiology Progress Note Signed Patient: Shawna Hernandes MR#: [id number] : 1945 Acct:[id number] Age/Sex: 79 / M Adm Date: 5 Loc: Room: [address] [place] [address] Type: ADM IN Attending Dr: Marli Fermin MD Copies to: ~ Date of Service: 09/05/2024 Subjective Interval history: Mr. 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 Pt recently had a prolonged hospitalization at [facility] for acute cholecystitis s/p cholecystectomy. He was discharged to rehab and was recently sent home however he has had trouble with significant weakness and tremors. He was seen by Neurology and was stared on Sinemet. Last night, pt had one of those MET episodes and was hypotensive. Entresto dose was halved and cardiology consulted for further recommendations. Noted to be significantly orthostatic with BP of 58/41. No events on telemetry- he is AV paced. Interim evaluation 09/04/2024: Pt is doing well today. Orthostatics were positivebut was asymptomatic. BP has improved. Cardiology follow-up 09/05/2024: Patient is more stable with no nausea or vomiting. His blood pressure is in the normal range, his heart rate is normal. His saturation is normal. He has not been ambulating. Will add spironolactone 12.5 mg daily, continue present dose of Entresto, carvedilol and Farxiga. Physical therapy today, potential discharge back to the [facility] tomorrow Exam Physical Exam Vital Signs: Temp Pulse Resp BP Pulse Ox O2 Del Method 97.2 F L 60 17 118/74 97 Room Air 09/05/24 09:03 09/05/24 09:03 09/05/24 09:03 09/05/24 09:03 09/05/24 09:03 09/05/24 09:03 Const General: cooperative, comfortable and no acute distress Nutritional Appearance: underweight Orientation: alert, awake and oriented x3 HEENT Head: normal to inspection, normocephalic and atraumatic Ears: hearing grossly normal bilaterally Nose: external nose normal Face and sinus: normal facial exam Eyes Conjunctivae: conjunctivae normal Pupils: PERRL Neck Neck: normal visual inspection, trachea midline and supple Neck mass: No Thyroid: thyroid normal Carotids: normal carotid upstroke Resp Effort & Inspection: normal respiratory effort Auscultation: clear to auscultation bilaterally Cardio Jugular venous pressure: no JVD Palpation: normal PMI Rate: regular rate Rhythm: regular rhythm Heart Sounds: S1 normal and S2 normal GI Inspection: normal to inspection Palpation: soft and no hepatosplenomegaly Auscultation: normal bowel sounds Extrem General: no clubbing, cyanosis or edema Objective Labs 09/01/24 17:07 09/04/24 06:21 A&P - Cardiology (1) Generalized weakness: Assessment/Problem Details: Due to hypotension and an element of dehydration which has resolved Plan: Avoid hypotension by scaling back on his medications for heart failure Code(s): R53.1 - Weakness (2) Ventricular tachycardia: Assessment/Problem Details: No recent events while he is on amiodarone and mexiletine Plan: Continue antiarrhythmics Code(s): I47.20 - Ventricular tachycardia, unspecified (3) Chronic HFrEF (heart failure with reduced ejection fraction): Assessment/Problem Details: Presently no indication of decompensation, this is ischemic in nature Plan: Due to hypotension we will continue the lowest dose of Entresto and her carvedilol, continue Farxiga and resume spironolactone 12.5 mg daily Code(s): I50.22 - Chronic systolic (congestive) heart failure (4) AICD (automatic cardioverter/defibrillator) present: Assessment/Problem Details: No recent AICD discharge Plan: Continue to follow Code(s): Z95.810 - Presence of automatic (implantable) cardiac defibrillator (5) Hyperlipidemia: Qualifiers: Hyperlipidemia type: unspecified Qualified Code(s): E78.5 - Hyperlipidemia, unspecified Plan: Continue statin Code(s): E78.5 - Hyperlipidemia, unspecified (6) Coronary artery disease: Assessment/Problem Details: No indication of recurrent significant CAD Plan: Continue secondary prevention measures Code(s): I25.10 - Atherosclerotic heart disease of [place] coronary artery without angina pectoris (7) Hypotension: Assessment/Problem Details: Due to intravascular depletion caused by nausea and vomiting and his heart failure therapy, resolved Plan: Avoid dehydration Code(s): I95.9 - Hypotension, unspecified Plan Documented By: Ranjan Quiles MD, [facility] 5 1051 Signed By: <Electronically signed by [facility] Ranjan Quiles> 09/05/24 [facility]6 [facility] Work Phone: 1(167) 294-402802-03-2025 [place] [address] Cardiology Progress Note Signed Patient: Shawna Hernandes MR#: [id number] : 1945 Acct:[id number] Age/Sex: 79 / M Adm Date: 5 Loc: Room: [address] [place] [address] Type: ADM IN Attending Dr: Marli Fermin MD Copies to: ~ Date of Service: 09/05/2024 Subjective Interval history: Mr. 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 Pt recently had a prolonged hospitalization at [facility] for acute cholecystitis s/p cholecystectomy. He was discharged to rehab and was recently sent home however he has had trouble with significant weakness and tremors. He was seen by Neurology and was stared on Sinemet. Last night, pt had one of those MET episodes and was hypotensive. Entresto dose was halved and cardiology consulted for further recommendations. Noted to be significantly orthostatic with BP of 58/41. No events on telemetry- he is AV paced. Interim evaluation 09/04/2024: Pt is doing well today. Orthostatics were positivebut was asymptomatic. BP has improved. Cardiology follow-up 09/05/2024: Patient is more stable with no nausea or vomiting. His blood pressure is in the normal range, his heart rate is normal. His saturation is normal. He has not been ambulating. Will add spironolactone 12.5 mg daily, continue present dose of Entresto, carvedilol and Farxiga. Physical therapy today, potential discharge back to the [facility] tomorrow Exam Physical Exam Vital Signs: Temp Pulse Resp BP Pulse Ox O2 Del Method 97.2 F L 60 17 118/74 97 Room Air 09/05/24 09:03 09/05/24 09:03 09/05/24 09:03 09/05/24 09:03 09/05/24 09:03 09/05/24 09:03 Const General: cooperative, comfortable and no acute distress Nutritional Appearance: underweight Orientation: alert, awake and oriented x3 HEENT Head: normal to inspection, normocephalic and atraumatic Ears: hearing grossly normal bilaterally Nose: external nose normal Face and sinus: normal facial exam Eyes Conjunctivae: conjunctivae normal Pupils: PERRL Neck Neck: normal visual inspection, trachea midline and supple Neck mass: No Thyroid: thyroid normal Carotids: normal carotid upstroke Resp Effort & Inspection: normal respiratory effort Auscultation: clear to auscultation bilaterally Cardio Jugular venous pressure: no JVD Palpation: normal PMI Rate: regular rate Rhythm: regular rhythm Heart Sounds: S1 normal and S2 normal GI Inspection: normal to inspection Palpation: soft and no hepatosplenomegaly Auscultation: normal bowel sounds Extrem General: no clubbing, cyanosis or edema Objective Labs 09/01/24 17:07 09/04/24 06:21 A&P - Cardiology (1) Generalized weakness: Assessment/Problem Details: Due to hypotension and an element of dehydration which has resolved Plan: Avoid hypotension by scaling back on his medications for heart failure Code(s): R53.1 - Weakness (2) Ventricular tachycardia: Assessment/Problem Details: No recent events while he is on amiodarone and mexiletine Plan: Continue antiarrhythmics Code(s): I47.20 - Ventricular tachycardia, unspecified (3) Chronic HFrEF (heart failure with reduced ejection fraction): Assessment/Problem Details: Presently no indication of decompensation, this is ischemic in nature Plan: Due to hypotension we will continue the lowest dose of Entresto and her carvedilol, continue Farxiga and resume spironolactone 12.5 mg daily Code(s): I50.22 - Chronic systolic (congestive) heart failure (4) AICD (automatic cardioverter/defibrillator) present: Assessment/Problem Details: No recent AICD discharge Plan: Continue to follow Code(s): Z95.810 - Presence of automatic (implantable) cardiac defibrillator (5) Hyperlipidemia: Qualifiers: Hyperlipidemia type: unspecified Qualified Code(s): E78.5 - Hyperlipidemia, unspecified Plan: Continue statin Code(s): E78.5 - Hyperlipidemia, unspecified (6) Coronary artery disease: Assessment/Problem Details: No indication of recurrent significant CAD Plan: Continue secondary prevention measures Code(s): I25.10 - Atherosclerotic heart disease of [place] coronary artery without angina pectoris (7) Hypotension: Assessment/Problem Details: Due to intravascular depletion caused by nausea and vomiting and his heart failure therapy, resolved Plan: Avoid dehydration Code(s): I95.9 - Hypotension, unspecified Plan Documented By: Ranjan Quiles MD, [facility] 5 1051 Signed By: 09/05/[address] [place], [place] 5986002-02-2025 Progress note Author Lizzy Laguerre [facility] Note Date/Time September 04, 2024 3 :50pm [facility] [address] [place] [address] Cardiology Progress Note Signed Patient: Shawna Hernandes MR#: [id number] : 1945 Acct:[id number] Age/Sex: 79 / M Adm Date: 5 Loc: 3T Room: [address] [place] [address] Type: ADM IN Attending Dr: Tani Solano DO Copies to: ~ Date of Service: 09/04/2024 Subjective Interval history: Mr. 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 Pt recently had a prolonged hospitalization at [facility] for acute cholecystitis s/p cholecystectomy. He was discharged to rehab and was recently sent home however he has had trouble with significant weakness and tremors. He was seen by Neurology and was stared on Sinemet. Last night, pt had one of those MET episodes and was hypotensive. Entresto dose was halved and cardiology consulted for further recommendations. Noted to be significantly orthostatic with BP of 58/41. No events on telemetry- he is AV paced. Interim evaluation 09/04/2024: Pt is doing well today. Orthostatics were positivebut was asymptomatic. BP has improved. Exam Physical Exam Vital Signs: Temp Pulse Resp BP Pulse Ox O2 Del Method 97.5 F L 63 16 123/72 97 Room Air 09/04/24 15:19 09/04/24 15:19 09/04/24 15:19 09/04/24 15:19 09/04/24 15:19 09/04/24 15:19 Narrative: GEN: AAOx3. No acute distress. Neck: No JVD. Lungs: Clear to auscultation bilaterally Heart: Regular rate and rhythm. Normal S1 and S2. No murmurs or rubs appreciated. Abdomen: Soft, nontender, nondistended, bowel sounds present. Extremities: No BLE edema. Neuro: AAOx3. No focal deficits. Objective Labs 09/01/24 17:07 09/04/24 06:21 Labs: Laboratory Results - last 24 hr 09/04/24 06:21 PHA Creatinine Clear 46.75 Sodium 138 Potassium 3.4 L Chloride 105 Carbon Dioxide 28.2 Anion Gap 8.2 BUN 16 Creatinine 1.26 Est GFR (CKD-EPI) 58.379 Glucose 87 Calcium 8.0 L Magnesium 2.0 A&P - Cardiology (1) Generalized weakness: Code(s): R53.1 - Weakness (2) Ventricular tachycardia: Code(s): I47.20 - Ventricular tachycardia, unspecified (3) Chronic HFrEF (heart failure with reduced ejection fraction): Code(s): I50.22 - Chronic systolic (congestive) heart failure (4) AICD (automatic cardioverter/defibrillator) present: Code(s): Z95.810 - Presence of automatic (implantable) cardiac defibrillator (5) Hyperlipidemia: Qualifiers: Hyperlipidemia type: unspecified Qualified Code(s): E78.5 - Hyperlipidemia, unspecified Code(s): E78.5 - Hyperlipidemia, unspecified (6) Coronary artery disease: Code(s): I25.10 - Atherosclerotic heart disease of [place] coronary artery without angina pectoris Plan Assessment: Orthostatic hypotension likely 2/2 autonomic dysfunction in the setting of Parkinson's disease. Ischemic cardiomyopathy EF 15% initially diagnosed over 20y ago s/p ICD CAD s/p PCI to LCx x2 March 2023 Hx of monomorphic VT on Mexiletine HTN HLD Recommendations: - BP improved today. Entresto 24-26mg BID resumed today and he is tolerating well. Will start low dose carvedilol 3.125mg BID. - Recommend Drake hose stockings and if persistent,can start low dose midodrine. - Monitor for arrhythmias on telemetry. None noted so far. - Continue DAPT, Amiodarone and Mexiletine - Will follow Documented By: Lizzy Laguerre MD 09/04/24 1546 Signed By: <Electronically signed by Lizzy Laguerre MD> 09/04/24 5838 [facility] Work Phone: 1(939) 812-569702-02-2025 [place] [id number] Cardiology Progress Note Signed Patient: Shawna Hernandes MR#: [id number] : 1945 Acct:[id number] Age/Sex: 79 / M Adm Date: 5 Loc: Room: [address] [place] [address] Type: ADM IN Attending Dr: Tani Solano DO Copies to: ~ Date of Service: 09/04/2024 Subjective Interval history: Mr. 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 Pt recently had a prolonged hospitalization at [facility] for acute cholecystitis s/p cholecystectomy. He was discharged to rehab and was recently sent home however he has had trouble with significant weakness and tremors. He was seen by Neurology and was stared on Sinemet. Last night, pt had one of those MET episodes and was hypotensive. Entresto dose was halved and cardiology consulted for further recommendations. Noted to be significantly orthostatic with BP of 58/41. No events on telemetry- he is AV paced. Interim evaluation 09/04/2024: Pt is doing well today. Orthostatics were positivebut was asymptomatic. BP has improved. Exam Physical Exam Vital Signs: Temp Pulse Resp BP Pulse Ox O2 Del Method 97.5 F L 63 16 123/72 97 Room Air 09/04/24 15:19 09/04/24 15:19 09/04/24 15:19 09/04/24 15:19 09/04/24 15:19 09/04/24 15:19 Narrative: GEN: AAOx3. No acute distress. Neck: No JVD. Lungs: Clear to auscultation bilaterally Heart: Regular rate and rhythm. Normal S1 and S2. No murmurs or rubs appreciated. Abdomen: Soft, nontender, nondistended, bowel sounds present. Extremities: No BLE edema. Neuro: AAOx3. No focal deficits. Objective Labs 09/01/24 17:07 09/04/24 06:21 Labs: Laboratory Results - last 24 hr 09/04/24 06:21 PHA Creatinine Clear 46.75 Sodium 138 Potassium 3.4 L Chloride 105 Carbon Dioxide 28.2 Anion Gap 8.2 BUN 16 Creatinine 1.26 Est GFR (CKD-EPI) 58.379 Glucose 87 Calcium 8.0 L Magnesium 2.0 A&P - Cardiology (1) Generalized weakness: Code(s): R53.1 - Weakness (2) Ventricular tachycardia: Code(s): I47.20 - Ventricular tachycardia, unspecified (3) Chronic HFrEF (heart failure with reduced ejection fraction): Code(s): I50.22 - Chronic systolic (congestive) heart failure (4) AICD (automatic cardioverter/defibrillator) present: Code(s): Z95.810 - Presence of automatic (implantable) cardiac defibrillator (5) Hyperlipidemia: Qualifiers: Hyperlipidemia type: unspecified Qualified Code(s): E78.5 - Hyperlipidemia, unspecified Code(s): E78.5 - Hyperlipidemia, unspecified (6) Coronary artery disease: Code(s): I25.10 - Atherosclerotic heart disease of [place] coronary artery without angina pectoris Plan Assessment: Orthostatic hypotension likely 2/2 autonomic dysfunction in the setting of Parkinson's disease. Ischemic cardiomyopathy EF 15% initially diagnosed over 20y ago s/p ICD CAD s/p PCI to LCx x2 March 2023 Hx of monomorphic VT on Mexiletine HTN HLD Recommendations: - BP improved today. Entresto 24-26mg BID resumed today and he is tolerating well. Will start low dose carvedilol 3.125mg BID. - Recommend Drake hose stockings and if persistent,can start low dose midodrine. - Monitor for arrhythmias on telemetry. None noted so far. - Continue DAPT, Amiodarone and Mexiletine - Will follow Documented By: Lizzy Laguerre MD 09/04/24 1546 Signed By: 09/04/24 1550 [facility]02-02-2025 Progress note Author Tani Solano [facility] Note Date/Time September 04, 2024 1 0:44am [facility] [address] [place] [address] Hospitalist Progress Note Signed Patient: Shawna Hernandes MR#: [id number] : 1945 Acct:[id number] Age/Sex: 79 / M Adm Date: 5 Loc: Room: [address] [place] [address] Type: ADM IN Attending Dr: Tani Solano DO Copies to: ~ Date of Service: 09/04/2024 Subjective Subjective Narrative: Seen evaluate this morning, he is sitting up in the chair after he received a bath. He feels well, orthostatics were obtained and again were positive this morning however he did not feel symptomatic with this. Discussed with him to plan to be likely to resume his GDMT 1 medication at a time as tolerated per cardiology discretion. Exam Physical Exam Vital Signs: Temp Pulse Resp BP Pulse Ox O2 Del Method 97.6 F 65 16 97/61 L 97 Room Air 09/04/24 08:00 09/04/24 08:00 09/04/24 08:00 09/04/24 09:22 09/04/24 08:00 09/04/24 08:00 Narrative: General: Awake alert, no acute distress HEENT: head atraumatic, normocephalic, moist mucous membranes Neck: supple no masses, no lymphadenopathy CVS: regular rate and rhythm, no murmurs or gallops Respiratory: clear to auscultation bilaterally, no wheezing or crackles, symmetric expansion GI: soft, nondistended, nontender, positive bowel sounds with no organomegaly Extremity: moves all extremities, no restrictions of movements, no calf tenderness, no edema, possible cogwheel rigidity on the left arm Neuro: AOx3, CN II-VII intact. Moves all extremities in all planes of motion. Skin: dry, intact no rashes or lesions Chest: Numerous scars from AICD incision on left side, 1 scar on the right. Objective Lab Results 09/01/24 17:07 09/04/24 06:21 Meds Allergies and Active Meds Allergies No Known Allergies Allergy (Verified 09/01/24 15:35) Active Meds: Active Medications Generic Name Dose Route Start Last Admin Trade Name Luci PRN Reason Stop Dose Admin Acetaminophen 650 mg 09/01/24 18:13 09/03/24 12:52 Acetaminophen 325 Mg Tablet PO 09/01/25 18:12 650 mg Q6HR PRN Administration Pain Scale 1 - 3 or fever Amiodarone HCl 200 mg 09/02/24 09:00 09/04/24 09:14 Amiodarone 200 Mg Tablet PO 09/02/25 08:59 200 mg QAM MEGHA Administration Aspirin 81 mg 09/02/24 09:00 09/04/24 09:13 Aspirin 81 Mg Tablet. PO 09/02/25 08:59 81 mg QAM MEGHA Administration Atorvastatin Calcium 80 mg 09/01/24 21:00 09/03/24 22:24 Atorvastatin 80 Mg Tablet PO 09/01/25 20:59 80 mg QPM MEGHA Administration Bumetanide 1 mg 09/02/24 09:00 09/03/24 10:52 Bumetanide 1 Mg Tablet PO 09/02/25 08:59 Not Given QAM MEGHA Clopidogrel Bisulfate 75 mg 09/02/24 09:00 09/04/24 09:13 Clopidogrel Bisulfate 75 Mg Tablet PO 09/02/25 08:59 75 mg QAM MEGHA Administration Dapagliflozin 10 mg 09/02/24 09:00 09/03/24 10:53 Dapagliflozin 10 Mg Tablet PO 09/02/25 08:59 Not Given DAILY MEGHA Enoxaparin Sodium 40 mg 09/02/24 10:00 09/04/24 09:12 Enoxaparin 40 Mg/0.4 Ml Syringe SUBCUT 09/02/25 09:59 40 mg DAILY@10 MEGHA Administration Folic Acid 1 tab 09/02/24 09:00 09/04/24 09:13 Cyanocobalamin/Fa/Pyridoxine 1 Tab Tablet PO 09/02/25 08:59 1 tab QAM [facility] Administration Levothyroxine Sodium 50 mcg 09/02/24 06:30 09/04/24 06:30 Levothyroxine 50 Mcg Tablet PO 09/02/25 06:29 50 mcg DAILY.0630 MEGHA Administration Loperamide HCl 2 mg 09/01/24 19:51 Loperamide 2 Mg Capsule PO 09/01/25 19:50 Q6H PRN loose stool Magnesium Hydroxide 30 ml 09/01/24 19:51 Magnesium Hydroxide Susp 30 Ml Udc PO 09/01/25 19:50 DAILY PRN constipation Melatonin 5 mg 09/01/24 18:13 Melatonin 5 Mg Tablet PO 09/01/25 18:12 QHS PRN Insomnia Mexiletine HCl 150 mg 09/01/24 22:00 09/04/24 09:13 Mexiletine 150 Mg Capsule PO 09/01/25 21:59 150 mg TID MEGHA Administration Nitroglycerin 0.4 mg 09/01/24 19:51 Nitroglycerin 0.4 Mg Tab.Subl SUBLINGUAL 09/01/25 19:50 Q5MIN.X3 PRN Chest Pain Ondansetron HCl 4 mg 09/01/24 18:13 Ondansetron 4 Mg/2 Ml Vial IV-PUSH 09/01/25 18:12 Q8H PRN Nausea And Vomiting Oxycodone/Acetaminophen 1 tab 09/01/24 20:19 Oxycodone/Acetaminophen 5-325 Mg Tablet PO Q6H PRN pain Pantoprazole Sodium 40 mg 09/02/24 07:30 09/04/24 06:30 Pantoprazole 40 Mg Tablet. PO 09/02/25 07:29 40 mg DAILY.AC.BKFAST MEGHA Administration Sacubitril/Valsartan 1 tab 09/04/24 07:00 09/04/24 06:30 Sacubitril/Valsartan 24-26mg 1 Tab Tablet PO 09/04/25 06:59 1 tab BID MEGHA Administration Sennosides 8.6 mg 09/01/24 21:00 09/04/24 09:14 Sennosides 8.6 Mg Tablet PO 09/01/25 20:59 8.6 mg BID MEGHA Administration Sodium Chloride 0 ml 09/01/24 15:32 09/01/24 18:17 Sodium Chloride 0.9 % 10 Ml Syringe IV-PUSH 09/01/25 15:31 10 ml PRN PRN Administration Flush A&P - Hospitalist Assessment/Plan (1) Generalized weakness: (2) Inability to walk: (3) Ischemic cardiomyopathy: (4) Chronic HFrEF (heart failure with reduced ejection fraction): Plan Generalized weakness patient has decreased functional status from baseline likely secondary to recent surgical intervention 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 Check for other attributable cause, TSH, B12/folate, vit D-all within normal limits Consult PT/OT, speech evaluation refer to their recommendations Continue Parkinson's workup in the outpatient setting Eliminate precipitation factors, provide supportive care - Address sensory and cognitive impairments (frequent reorientation, glasses/hearing aids) - Decrease/prevent infection/restraints if possible, remove lines/catheters if unnecessary - Promote good sleep: reduce noise and nighttime intervention Orthostatic hypotension His GDMT was held yesterday with the exception of Entresto but however this was reduced by half. ? He is still orthostatic this morning however he is not symptomatic, will deferto cardiology for resuming his GDMT at their discretion. Chronic HFrEF Ischemic cardiomyopathy Last echo 11/21/2022 with EF 15 to 20% Patient with symptomatic orthostasis Entresto dose reduced Cardiology on consult DVT PPx: Lovenox Diet: Regular CODE STATUS: Full Dispo: Observation, stable Plan of care Discussed with: the medical team, the patient Documented By: Tani Solano DO 09/04/24 1041 Signed By: <Electronically signed by Tani Solano DO> 09/04/24 1044 [facility] Work Phone: [phone]) 661-825102-02-20[place] [address] Hospitalist Progress Note Signed Patient: Shawna Hernandes MR#: [id number] : 1945 Acct:[id number] Age/Sex: 79 / M Adm Date: 5 Loc: 3T Room: [address] [place] [address] Type: ADM IN Attending Dr: Tani Solano DO Copies to: ~ Date of Service: 09/04/2024 Subjective Subjective Narrative: Seen evaluate this morning, he is sitting up in the chair after he received a bath. He feels well, orthostatics were obtained and again were positive this morning however he did not feel symptomatic with this. Discussed with him to plan to be likely to resume his GDMT 1 medication at a time as tolerated per cardiology discretion. Exam Physical Exam Vital Signs: Temp Pulse Resp BP Pulse Ox O2 Del Method 97.6 F 65 16 97/61 L 97 Room Air 09/04/24 08:00 09/04/24 08:00 09/04/24 08:00 09/04/24 09:22 09/04/24 08:00 09/04/24 08:00 Narrative: General: Awake alert, no acute distress HEENT: head atraumatic, normocephalic, moist mucous membranes Neck: supple no masses, no lymphadenopathy CVS: regular rate and rhythm, no murmurs or gallops Respiratory: clear to auscultation bilaterally, no wheezing or crackles, symmetric expansion GI: soft, nondistended, nontender, positive bowel sounds with no organomegaly Extremity: moves all extremities, no restrictions of movements, no calf tenderness, no edema, possible cogwheel rigidity on the left arm Neuro: AOx3, CN II-VII intact. Moves all extremities in all planes of motion. Skin: dry, intact no rashes or lesions Chest: Numerous scars from AICD incision on left side, 1 scar on the right. Objective Lab Results 09/01/24 17:07 09/04/24 06:21 Meds Allergies and Active Meds Allergies No Known Allergies Allergy (Verified 09/01/24 15:35) Active Meds: Active Medications Generic Name Dose Route Start Last Admin Trade Name Freq PRN Reason Stop Dose Admin Acetaminophen 650 mg 09/01/24 18:13 09/03/24 12:52 Acetaminophen 325 Mg Tablet PO 09/01/25 18:12 650 mg Q6HR PRN Administration Pain Scale 1 - 3 or fever Amiodarone HCl 200 mg 09/02/24 09:00 09/04/24 09:14 Amiodarone 200 Mg Tablet PO 09/02/25 08:59 200 mg QAM MEGHA Administration Aspirin 81 mg 09/02/24 09:00 09/04/24 09:13 Aspirin 81 Mg Tablet. PO 09/02/25 08:59 81 mg QAM MEGHA Administration Atorvastatin Calcium 80 mg 09/01/24 21:00 09/03/24 22:24 Atorvastatin 80 Mg Tablet PO 09/01/25 20:59 80 mg QPM MEGHA Administration Bumetanide 1 mg 09/02/24 09:00 09/03/24 10:52 Bumetanide 1 Mg Tablet PO 09/02/25 08:59 Not Given QAM MEGHA Clopidogrel Bisulfate 75 mg 09/02/24 09:00 09/04/24 09:13 Clopidogrel Bisulfate 75 Mg Tablet PO 09/02/25 08:59 75 mg QAM MEGHA Administration Dapagliflozin 10 mg 09/02/24 09:00 09/03/24 10:53 Dapagliflozin 10 Mg Tablet PO 09/02/25 08:59 Not Given DAILY MEGHA Enoxaparin Sodium 40 mg 09/02/24 10:00 09/04/24 09:12 Enoxaparin 40 Mg/0.4 Ml Syringe SUBCUT 09/02/25 09:59 40 mg DAILY@10 MEGHA Administration Folic Acid 1 tab 09/02/24 09:00 09/04/24 09:13 Cyanocobalamin/Fa/Pyridoxine 1 Tab Tablet PO 09/02/25 08:59 1 tab QAM MEGHA Administration Levothyroxine Sodium 50 mcg 09/02/24 06:30 09/04/24 06:30 Levothyroxine 50 Mcg Tablet PO 09/02/25 06:29 50 mcg DAILY.0630 MEGHA Administration Loperamide HCl 2 mg 09/01/24 19:51 Loperamide 2 Mg Capsule PO 09/01/25 19:50 Q6H PRN loose stool Magnesium Hydroxide 30 ml 09/01/24 19:51 Magnesium Hydroxide Susp 30 Ml Udc PO 09/01/25 19:50 DAILY PRN constipation Melatonin 5 mg 09/01/24 18:13 Melatonin 5 Mg Tablet PO 09/01/25 18:12 QHS PRN Insomnia Mexiletine HCl 150 mg 09/01/24 22:00 09/04/24 09:13 Mexiletine 150 Mg Capsule PO 09/01/25 21:59 150 mg TID MEGHA Administration Nitroglycerin 0.4 mg 09/01/24 19:51 Nitroglycerin 0.4 Mg Tab.Subl SUBLINGUAL 09/01/25 19:50 Q5MIN.X3 PRN Chest Pain Ondansetron HCl 4 mg 09/01/24 18:13 Ondansetron 4 Mg/2 Ml Vial IV-PUSH 09/01/25 18:12 Q8H PRN Nausea And Vomiting Oxycodone/Acetaminophen 1 tab 09/01/24 20:19 Oxycodone/Acetaminophen 5-325 Mg Tablet PO Q6H PRN pain Pantoprazole Sodium 40 mg 09/02/24 07:30 09/04/24 06:30 Pantoprazole 40 Mg Tablet. PO 09/02/25 07:29 40 mg DAILY.AC.BKFAST MEGHA Administration Sacubitril/Valsartan 1 tab 09/04/24 07:00 09/04/24 06:30 Sacubitril/Valsartan 24-26mg 1 Tab Tablet PO 09/04/25 06:59 1 tab BID MEGHA Administration Sennosides 8.6 mg 09/01/24 21:00 09/04/24 09:14 Sennosides 8.6 Mg Tablet PO 09/01/25 20:59 8.6 mg BID MEGHA Administration Sodium Chloride 0 ml 09/01/24 15:32 09/01/24 18:17 Sodium Chloride 0.9 % 10 Ml Syringe IV-PUSH 09/01/25 15:31 10 ml PRN PRN Administration Flush A&P - Hospitalist Assessment/Plan (1) Generalized weakness: (2) Inability to walk: (3) Ischemic cardiomyopathy: (4) Chronic HFrEF (heart failure with reduced ejection fraction): Plan Generalized weakness patient has decreased functional status from baseline likely secondary to recent surgical intervention 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 Check for other attributable cause, TSH, B12/folate, vit D-all within normal limits Consult PT/OT, speech evaluation refer to their recommendations Continue Parkinson's workup in the outpatient setting Eliminate precipitation factors, provide supportive care - Address sensory and cognitive impairments (frequent reorientation, glasses/hearing aids) - Decrease/prevent infection/restraints if possible, remove lines/catheters if unnecessary - Promote good sleep: reduce noise and nighttime intervention Orthostatic hypotension His GDMT was held yesterday with the exception of Entresto but however this was reduced by half. ? He is still orthostatic this morning however he is not symptomatic, will deferto cardiology for resuming his GDMT at their discretion. Chronic HFrEF Ischemic cardiomyopathy Last echo 11/21/2022 with EF 15 to 20% Patient with symptomatic orthostasis Entresto dose reduced Cardiology on consult DVT PPx: Lovenox Diet: Regular CODE STATUS: Full Dispo: Observation, stable Plan of care Discussed with: the medical team, the patient Documented By: Tani Solano DO 09/04/24 1041 Signed By: 09/04/24 1044 [facility]02-01-2025 Consult note Author Lizzy Laguerre [facility] Note Date/Time September 03, 2024 5 :14pm [facility] [address] [place] [address] Cardiology Consult Note Signed Patient: Shawna Hernandes MR#: [id number] : 1945 Acct:[id number] Age/Sex: 79 / M Adm Date: 5 Loc: Room: [address] [place] [address] Type: ADM IN Attending Dr: Tani Solano DO Copies to: DO Lizzy Suárez MD Shawn J Warner, ~ Cardiology HPI History of Present Illness Consult Date: 09/03/24 Reason for Consult: CHF with EF 15% HPI: Mr. 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 Pt recently had a prolonged hospitalization at [facility] for acute cholecystitis s/p cholecystectomy. He was discharged to rehab and was recently sent home however he has had trouble with significant weakness and tremors. He was seen by Neurology and was stared on Sinemet. Last night, pt had one of those MET episodes and was hypotensive. Entresto dose was halved and cardiology consulted for further recommendations. Noted to be significantly orthostatic with BP of 58/41. No events on telemetry- he is AV paced. Review of Systems Review of Systems All other systems reviewed & are negative unless noted below or in HPI COUNTS INCLUDE 234 BEDS AT [facility] Medical History Defibrillator discharge TBI (traumatic brain injury) Neuropathy TIA (transient ischemic attack) Macular degeneration BPH (benign prostatic hyperplasia) Cardiomyopathy Hyperlipemia Hypertension CHF (congestive heart failure) History of myocardial infarction Surgical History Status post biventricular pacemaker History of vasectomy History of phacoemulsification of cataract of both eyes with intraocular lens implantation History of tonsillectomy History of cystoscopy History of hernia surgery History of cardiac catheterization AICD (automatic cardioverter/defibrillator) present Family History Father Myocardial infarction Mother Hypertension Brother History of heart surgery Brother Heart disease Sister Hypertension Thyroid disease Sister Hypertension Thyroid disease Brother Hypertension Legacy FamHx Relation: Brother(s) Heart disease Legacy FamHx Relation: Brother(s) Father Heart disease 50 yrs Mother 89 yrs Sister Hypertension Heart disease Social History Smoking Status: Former smoker Tobacco Type: cigarettes Substance Use Type: None Substance Abuse Comment: rarely Social History Comments: He admits that he did smoke but it was 50 years ago andat that time he only smoked for 3 years and it was a pipe only and that he did not inhale. Rarely drank any alcohol. Meds Medications and Allergies Allergies No Known Allergies Allergy (Verified 09/01/24 15:35) Home Medications aspirin 81 mg tablet,delayed release 81 mg PO QAM 11/15/17 [History Confirmed 09/01/24] bumetanide 1 mg tablet 1 mg PO QAM 11/15/17 [History Confirmed 09/01/24] nitroglycerin 0.4 mg sublingual tablet (Nitrostat) 0.4 mg sublingual DIRECTEDPRN Chest Pain 11/15/17 [History Confirmed 09/01/24] biotin 5 mg capsule 5 mg PO QAM 09/02/19 [History Confirmed 09/01/24] vit A 300 mcg-C 200 mg-E 27 mg-lutein 2 mg and minerals tablet (Eye Health Plus Lutein) 1 tab PO QAM 09/02/19 [History Confirmed 09/01/24] vitamin B complex 1 cap PO QAM 09/02/19 [History Confirmed 09/01/24] atorvastatin 80 mg tablet 80 mg PO QPM 08/13/22 [History Confirmed 09/01/24] clopidogrel 75 mg tablet 75 mg PO QAM 08/13/22 [History Confirmed 09/01/24] levothyroxine 50 mcg tablet 50 mcg PO QAM 08/13/22 [History Confirmed 09/01/24] empagliflozin 10 mg tablet (Jardiance) 10 mg PO DAILY 11/21/22 [History Confirmed 09/01/24] spironolactone 25 mg tablet 25 mg PO QAM 30 days #30 tabs 11/25/22 [Rx Confirmed 09/01/24] amiodarone 100 mg tablet 200 mg PO QAM 04/17/23 [History Confirmed 09/01/24] mexiletine 150 mg capsule 150 mg PO TID 04/17/23 [History Confirmed 09/01/24] ascorbate calcium (vitamin C) 500 mg tablet 500 mg PO DAILY 02/19/24 [History Confirmed 09/01/24] carvedilol 12.5 mg tablet 6.25 mg PO BID 02/19/24 [History Confirmed 09/01/24] pantoprazole 40 mg tablet,delayed release 40 mg PO DAILY 30 days #30 tabs 02/19/24 [Rx Confirmed 09/01/24] sacubitril 49 mg-valsartan 51 mg tablet (Entresto) 1 tab PO BID 02/19/24 [History Confirmed 09/01/24] acetaminophen 325 mg capsule 650 mg PO Q4-6H PRN fever or pain 09/01/24 [History Confirmed 09/01/24] loperamide 2 mg capsule 2 mg PO Q4-6H PRN loose stool 09/01/24 [History Confirmed 09/01/24] magnesium hydroxide 400 mg/5 mL oral suspension (Dulcolax (magnesium hydroxide))30 ml PO DAILY PRN constipation 09/01/24 [History Confirmed 09/01/24] melatonin 3 mg capsule 1 mg PO QHS 09/01/24 [History Confirmed 09/01/24] ondansetron 4 mg disintegrating tablet 4 mg translingual Q4HR PRN nausea and vomiting 09/01/24 [History Confirmed 09/01/24] oxycodone-acetaminophen 5 mg-300 mg tablet 1 tab PO Q4-6H PRN pain 09/01/24 [History Confirmed 09/01/24] sennosides 8.6 mg capsule (senna) 8.6 mg PO BID 09/01/24 [History Confirmed 09/01/24] Exam Physical Exam Vital Signs: Temp Pulse Resp BP Pulse Ox O2 Del Method 97.2 F L 60 16 93/63 L 99 Room Air 09/03/24 14:59 09/03/24 14:59 09/03/24 14:59 09/03/24 14:59 09/03/24 14:59 09/03/24 14:59 Narrative: GEN: AAOx3. No acute distress. Neck: No JVD. Lungs: Clear to auscultation bilaterally Heart: Regular rate and rhythm. Normal S1 and S2. No murmurs or rubs appreciated. Abdomen: Soft, nontender, nondistended, bowel sounds present. Extremities: No BLE edema. Neuro: AAOx3. No focal deficits. Results - Cardiology Labs 09/01/24 17:07 09/01/24 17:07 Lab results: Intake and Output 09/03/24 09/03/24 09/03/24 07:59 15:59 23:59 Intake Total 500 / 500 Output Total 575 / 575 Balance -75 / -75 Intake: Oral 500 / 500 Output: Urine 575 / 575 Other: Weight 80.6 kg Date of Last Bowel Movement 09/03/24 Patient Weight 09/03/24 23:59 Weight 80.6 kg Lab 09/01/24 17:07 PT 12.6 INR 1.1 A&P - Cardiology (1) Generalized weakness: Code(s): R53.1 - Weakness (2) Ventricular tachycardia: Code(s): I47.20 - Ventricular tachycardia, unspecified (3) Chronic HFrEF (heart failure with reduced ejection fraction): Code(s): I50.22 - Chronic systolic (congestive) heart failure (4) AICD (automatic cardioverter/defibrillator) present: Code(s): Z95.810 - Presence of automatic (implantable) cardiac defibrillator (5) Hyperlipidemia: Qualifiers: Hyperlipidemia type: unspecified Qualified Code(s): E78.5 - Hyperlipidemia, unspecified Code(s): E78.5 - Hyperlipidemia, unspecified (6) Coronary artery disease: Code(s): I25.10 - Atherosclerotic heart disease of [place] coronary artery without angina pectoris Plan Assessment: Orthostatic hypotension likely 2/2 autonomic dysfunction in the setting of Parkinson's disease. Ischemic cardiomyopathy EF 15% initially diagnosed over 20y ago s/p ICD CAD s/p PCI to LCx x2 March 2023 Hx of monomorphic VT on Mexiletine HTN HLD Recommendations: - Given significant hypotension with SBPs in 50s, recommend holding GDMT and re-introduce slowly when MAPs improve - Recommend Drake hose stockings and if persistent,can start low dose midodrine. - Monitor for arrhythmias on telemetry. None noted so far. - Continue DAPT, Amiodarone and Mexiletine - Will follow Documented By: Lizzy Laguerre MD 09/03/242 Signed By: <Electronically signed by Lizzy Laguerre MD> 09/03/24 0457 [facility] Work Phone: [phone]) 194-757402-01-2025 Consult [place] [id number] Cardiology Consult Note Signed Patient: Shawna Hernandes MR#: [id number] : 1945 Acct:[id number] Age/Sex: 79 / M Adm Date: 5 Loc: Room: [address] [place] [address] Type: ADM IN Attending Dr: Tani Solano DO Copies to: DO Lizzy Suárez MD Shawn J Warner, ~ Cardiology HPI History of Present Illness Consult Date: 09/03/24 Reason for Consult: CHF with EF 15% HPI: Mr. 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 Pt recently had a prolonged hospitalization at [facility] for acute cholecystitis s/p cholecystectomy. He was discharged to rehab and was recently sent home however he has had trouble with significant weakness and tremors. He was seen by Neurology and was stared on Sinemet. Last night, pt had one of those MET episodes and was hypotensive. Entresto dose was halved and cardiology consulted for further recommendations. Noted to be significantly orthostatic with BP of 58/41. No events on telemetry- he is AV paced. Review of Systems Review of Systems All other systems reviewed & are negative unless noted below or in HPI COUNTS INCLUDE 234 BEDS AT [facility] Medical History Defibrillator discharge TBI (traumatic brain injury) Neuropathy TIA (transient ischemic attack) Macular degeneration BPH (benign prostatic hyperplasia) Cardiomyopathy Hyperlipemia Hypertension CHF (congestive heart failure) History of myocardial infarction Surgical History Status post biventricular pacemaker History of vasectomy History of phacoemulsification of cataract of both eyes with intraocular lens implantation History of tonsillectomy History of cystoscopy History of hernia surgery History of cardiac catheterization AICD (automatic cardioverter/defibrillator) present Family History Father Myocardial infarction Mother Hypertension Brother History of heart surgery Brother Heart disease Sister Hypertension Thyroid disease Sister Hypertension Thyroid disease Brother Hypertension Legacy FamHx Relation: Brother(s) Heart disease Legacy FamHx Relation: Brother(s) Father Heart disease 50 yrs Mother 89 yrs Sister Hypertension Heart disease Social History Smoking Status: Former smoker Tobacco Type: cigarettes Substance Use Type: None Substance Abuse Comment: rarely Social History Comments: He admits that he did smoke but it was 50 years ago andat that time he only smoked for 3 years and it was a pipe only and that he did not inhale. Rarely drank any alcohol. Meds Medications and Allergies Allergies No Known Allergies Allergy (Verified 09/01/24 15:35) Home Medications aspirin 81 mg tablet,delayed release 81 mg PO QAM 11/15/17 [History Confirmed 09/01/24] bumetanide 1 mg tablet 1 mg PO QAM 11/15/17 [History Confirmed 09/01/24] nitroglycerin 0.4 mg sublingual tablet (Nitrostat) 0.4 mg sublingual DIRECTEDPRN Chest Pain 11/15/17 [History Confirmed 09/01/24] biotin 5 mg capsule 5 mg PO QAM 09/02/19 [History Confirmed 09/01/24] vit A 300 mcg-C 200 mg-E 27 mg-lutein 2 mg and minerals tablet (Eye Health Plus Lutein) 1 tab PO QAM 09/02/19 [History Confirmed 09/01/24] vitamin B complex 1 cap PO QAM 09/02/19 [History Confirmed 09/01/24] atorvastatin 80 mg tablet 80 mg PO QPM 08/13/22 [History Confirmed 09/01/24] clopidogrel 75 mg tablet 75 mg PO QAM 08/13/22 [History Confirmed 09/01/24] levothyroxine 50 mcg tablet 50 mcg PO QAM 08/13/22 [History Confirmed 09/01/24] empagliflozin 10 mg tablet (Jardiance) 10 mg PO DAILY 11/21/22 [History Confirmed 09/01/24] spironolactone 25 mg tablet 25 mg PO QAM 30 days #30 tabs 11/25/22 [Rx Confirmed 09/01/24] amiodarone 100 mg tablet 200 mg PO QAM 04/17/23 [History Confirmed 09/01/24] mexiletine 150 mg capsule 150 mg PO TID 04/17/23 [History Confirmed 09/01/24] ascorbate calcium (vitamin C) 500 mg tablet 500 mg PO DAILY 02/19/24 [History Confirmed 09/01/24] carvedilol 12.5 mg tablet 6.25 mg PO BID 02/19/24 [History Confirmed 09/01/24] pantoprazole 40 mg tablet,delayed release 40 mg PO DAILY 30 days #30 tabs 02/19/24 [Rx Confirmed 09/01/24] sacubitril 49 mg-valsartan 51 mg tablet (Entresto) 1 tab PO BID 02/19/24 [History Confirmed 09/01/24] acetaminophen 325 mg capsule 650 mg PO Q4-6H PRN fever or pain 09/01/24 [History Confirmed 09/01/24] loperamide 2 mg capsule 2 mg PO Q4-6H PRN loose stool 09/01/24 [History Confirmed 09/01/24] magnesium hydroxide 400 mg/5 mL oral suspension (Dulcolax (magnesium hydroxide))30 ml PO DAILY PRN constipation 09/01/24 [History Confirmed 09/01/24] melatonin 3 mg capsule 1 mg PO QHS 09/01/24 [History Confirmed 09/01/24] ondansetron 4 mg disintegrating tablet 4 mg translingual Q4HR PRN nausea and vomiting 09/01/24 [History Confirmed 09/01/24] oxycodone-acetaminophen 5 mg-300 mg tablet 1 tab PO Q4-6H PRN pain 09/01/24 [History Confirmed 09/01/24] sennosides 8.6 mg capsule (senna) 8.6 mg PO BID 09/01/24 [History Confirmed 09/01/24] Exam Physical Exam Vital Signs: Temp Pulse Resp BP Pulse Ox O2 Del Method 97.2 F L 60 16 93/63 L 99 Room Air 09/03/24 14:59 09/03/24 14:59 09/03/24 14:59 09/03/24 14:59 09/03/24 14:59 09/03/24 14:59 Narrative: GEN: AAOx3. No acute distress. Neck: No JVD. Lungs: Clear to auscultation bilaterally Heart: Regular rate and rhythm. Normal S1 and S2. No murmurs or rubs appreciated. Abdomen: Soft, nontender, nondistended, bowel sounds present. Extremities: No BLE edema. Neuro: AAOx3. No focal deficits. Results - Cardiology Labs 09/01/24 17:07 09/01/24 17:07 Lab results: Intake and Output 09/03/24 09/03/24 09/03/24 07:59 15:59 23:59 Intake Total 500 / 500 Output Total 575 / 575 Balance -75 / -75 Intake: Oral 500 / 500 Output: Urine 575 / 575 Other: Weight 80.6 kg Date of Last Bowel Movement 09/03/24 Patient Weight 02/01/25 23:59 Weight 80.6 kg Lab 09/01/24 17:07 PT 12.6 INR 1.1 A&P - Cardiology (1) Generalized weakness: Code(s): R53.1 - Weakness (2) Ventricular tachycardia: Code(s): I47.20 - Ventricular tachycardia, unspecified (3) Chronic HFrEF (heart failure with reduced ejection fraction): Code(s): I50.22 - Chronic systolic (congestive) heart failure (4) AICD (automatic cardioverter/defibrillator) present: Code(s): Z95.810 - Presence of automatic (implantable) cardiac defibrillator (5) Hyperlipidemia: Qualifiers: Hyperlipidemia type: unspecified Qualified Code(s): E78.5 - Hyperlipidemia, unspecified Code(s): E78.5 - Hyperlipidemia, unspecified (6) Coronary artery disease: Code(s): I25.10 - Atherosclerotic heart disease of [place] coronary artery without angina pectoris Plan Assessment: Orthostatic hypotension likely 2/2 autonomic dysfunction in the setting of Parkinson's disease. Ischemic cardiomyopathy EF 15% initially diagnosed over 20y ago s/p ICD CAD s/p PCI to LCx x2 March 2023 Hx of monomorphic VT on Mexiletine HTN HLD Recommendations: - Given significant hypotension with SBPs in 50s, recommend holding GDMT and re- introduce slowly when MAPs improve - Recommend Drake hose stockings and if persistent,can start low dose midodrine. - Monitor for arrhythmias on telemetry. None noted so far. - Continue DAPT, Amiodarone and Mexiletine - Will follow Documented By: Lizzy Laguerre MD 09/03/241652 Signed By: 09/03/24 1714 [facility]02-01-2025 Progress note Author Tani Solano [facility] Note Date/Time September 03, 2024 1 :07pm [facility] [address] [place] [address] Hospitalist Progress Note Signed Patient: Shawna Hernandes MR#: [id number] : 1945 Acct:[id number] Age/Sex: 79 / M Adm Date: 5 Loc: Room: [address] [place] [address] Type: ADM INOo Attending Dr: Tani Solano DO Copies to: ~ Date of Service: 09/03/2024 Subjective Subjective Narrative: Mr. Hernandes is a 79-year-old male with a past medical history notable for prior traumatic brain injury, CHF with reduced ejection fraction, hypertension, hyperlipidemia and history of myocardial infarction who presents with a chief complaint of weakness at home. Persistently discharged from assisted facility with decline in functional ability at home following stay. PT OT to evaluate today for evaluation of placement. Neuro consulted for Parkinson's-like rigidity- patient started on Sinemet. Neurology consulted today for symptomatic CHF with ejection fraction 15% Today is hospital day 2. Patient seen and evaluated resting in chair at bedside. Overnight, MET called. Orthostatic blood pressure this morning were positive with systolic blood pressure less than 55 upon sitting standing. Entresto dose halved, cardiology consulted. Exam Physical Exam Vital Signs: Temp Pulse Resp BP Pulse Ox O2 Del Method 97.4 F L 60 16 86/57 L 97 Room Air 09/03/24 07:51 09/03/24 07:51 09/03/24 07:51 09/03/24 09:11 09/03/24 07:51 09/03/24 07:51 Narrative: GENERAL: No apparent distress, alert, oriented, appears stated age HEENT: NC/AT, EOMI, PERRL, conjunctiva clear, no adenopathy CARDIOVASCULAR: Regular rate and regular rhythm, no murmurs, symmetric palpable radial pulses RESPIRATORY: nonlabored work of breathing on room air, clear to auscultation bilaterally, symmetric chest rise, no wheezes/rales/rhonci ABDOMEN: Soft, non-tender, non-distended, normal bowel sounds BACK: No midline or paraspinal tenderness EXTREMITIES: moving all extremities well. Well-perfused. Possible cogwheel rigidity upper and lower extremity. sensation intact. No edema SKIN: Intact, no rash, no trauma NEURO: Cranial nerves grossly intact, no focal neurologic signs PSYCHIATRIC: Good eye contact, flat mood and affect, cooperative Objective Lab Results 09/01/24 17:07 09/01/24 17:07 Meds Allergies and Active Meds Allergies No Known Allergies Allergy (Verified 09/01/24 15:35) Active Meds: Active Medications Generic Name Dose Route Start Last Admin Trade Name Freq PRN Reason Stop Dose Admin Acetaminophen 650 mg 09/01/24 18:13 09/02/24 02:43 Acetaminophen 325 Mg Tablet PO 09/01/25 18:12 650 mg Q6HR PRN Administration Pain Scale 1 - 3 or fever Amiodarone HCl 200 mg 09/02/24 09:00 09/03/24 07:54 Amiodarone 200 Mg Tablet PO 09/02/25 08:59 200 mg QAM MEGHA Administration Aspirin 81 mg 09/02/24 09:00 09/03/24 07:54 Aspirin 81 Mg Tablet.Dr PO 09/02/25 08:59 81 mg QAM MEGHA Administration Atorvastatin Calcium 80 mg 09/01/24 21:00 09/02/24 22:23 Atorvastatin 80 Mg Tablet PO 09/01/25 20:59 80 mg QPM MEGHA Administration Bumetanide 1 mg 09/02/24 09:00 09/03/24 07:54 Bumetanide 1 Mg Tablet PO 09/02/25 08:59 1 mg QAM MEGHA Administration Carbidopa/Levodopa 1 tab 09/02/24 22:00 09/03/24 07:58 Carbidopa/Levodopa 10-100 Mg 1 Tab Tablet PO 09/02/25 21:59 1 tab TID MEGHA Administration Clopidogrel Bisulfate 75 mg 09/02/24 09:00 09/03/24 07:53 Clopidogrel Bisulfate 75 Mg Tablet PO 09/02/25 08:59 75 mg QAM MEGHA Administration Dapagliflozin 10 mg 09/02/24 09:00 09/03/24 07:53 Dapagliflozin 10 Mg Tablet PO 09/02/25 08:59 10 mg DAILY MEGHA Administration Enoxaparin Sodium 40 mg 09/02/24 10:00 09/03/24 07:53 Enoxaparin 40 Mg/0.4 Ml Syringe SUBCUT 09/02/25 09:59 40 mg DAILY@10 MEGHA Administration Folic Acid 1 tab 09/02/24 09:00 09/03/24 07:53 Cyanocobalamin/Fa/Pyridoxine 1 Tab Tablet PO 09/02/25 08:59 1 tab QAM MEGHA Administration Levothyroxine Sodium 50 mcg 09/02/24 06:30 09/03/24 05:47 Levothyroxine 50 Mcg Tablet PO 09/02/25 06:29 50 mcg DAILY.0630 MEGHA Administration Loperamide HCl 2 mg 09/01/24 19:51 Loperamide 2 Mg Capsule PO 09/01/25 19:50 Q6H PRN loose stool Magnesium Hydroxide 30 ml 09/01/24 19:51 Magnesium Hydroxide Susp 30 Ml Udc PO 09/01/25 19:50 DAILY PRN constipation Melatonin 5 mg 09/01/24 18:13 Melatonin 5 Mg Tablet PO 09/01/25 18:12 QHS PRN Insomnia Mexiletine HCl 150 mg 09/01/24 22:00 09/03/24 07:54 Mexiletine 150 Mg Capsule PO 09/01/25 21:59 150 mg TID MEGHA Administration Nitroglycerin 0.4 mg 09/01/24 19:51 Nitroglycerin 0.4 Mg Tab.Subl SUBLINGUAL 09/01/25 19:50 Q5MIN.X3 PRN Chest Pain Ondansetron HCl 4 mg 09/01/24 18:13 Ondansetron 4 Mg/2 Ml Vial IV-PUSH 09/01/25 18:12 Q8H PRN Nausea And Vomiting Oxycodone/Acetaminophen 1 tab 09/01/24 20:19 Oxycodone/Acetaminophen 5-325 Mg Tablet PO Q6H PRN pain Pantoprazole Sodium 40 mg 09/02/24 07:30 09/03/24 07:55 Pantoprazole 40 Mg Tablet.Dr PO 09/02/25 07:29 40 mg DAILY.AC.BKFAST MEGHA Administration Sacubitril/Valsartan 1 tab 09/01/24 21:00 09/03/24 07:54 Sacubitril/Valsartan 49-51mg 1 Tab Tablet PO 09/01/25 20:59 1 tab BID MEGHA Administration Sennosides 8.6 mg 09/01/24 21:00 09/03/24 07:54 Sennosides 8.6 Mg Tablet PO 09/01/25 20:59 8.6 mg BID MEGHA Administration Sodium Chloride 0 ml 09/01/24 15:32 09/01/24 18:17 Sodium Chloride 0.9 % 10 Ml Syringe IV-PUSH 09/01/25 15:31 10 ml PRN PRN Administration Flush A&P - Hospitalist Assessment/Plan (1) Generalized weakness: (2) Inability to walk: (3) Ischemic cardiomyopathy: (4) Chronic HFrEF (heart failure with reduced ejection fraction): Plan Generalized weakness patient has decreased functional status from baseline likely secondary to recent surgical intervention 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 Eliminate precipitation factors, provide supportive care - Address sensory and cognitive impairments (frequent reorientation, glasses/hearing aids) - Decrease/prevent infection/restraints if possible, remove lines/catheters if unnecessary - Promote good sleep: reduce noise and nighttime intervention Chronic HFrEF Ischemic cardiomyopathy Last echo 11/21/2022 with EF 15 to 20% Patient with symptomatic orthostasis Entresto dose reduced Cardiology consulted, we appreciate your input in this case DVT PPx: Lovenox Diet: Regular CODE STATUS: Full Dispo: Observation, stable Plan of care Discussed with: the medical team, the patient I personally saw this patient on the day of the encounter, reviewed the history,performed the [place] elements of the exam, formulated the plan of care and confirmed the Resident's assessment and plan. MAT was called last night for an episode of severe weakness while getting off the toilet, he was hypertensive again. His Sinemet was held, as well as some of his heart failure medications including Aldactone, Coreg and we did reduce his dose of Entresto starting this evening. Given his low ejection fraction, persistent orthostatic hypotension which is symptomatic with, we will also consult cardiology. Prior to starting Sinemet his GDMT was Aldactone 25 mg, Coreg 6.25 mg twice daily, Entresto 49/51, and Jardiance 10 mg. Once the cement has been completelywashed out of her system this would ideally be what he was resumed on however hemay not able tolerate this at this point in time. Will defer further dosing to cardiology given his significant low EF. - Tani Solano DO Documented By: Tani Solano DO 09/03/24 1041 Signed By: <Electronically signed by Tnai Solano DO> 09/03/24 1307 <Electronically signed by DO KYRA Ventura> 09/03/24 1051 [facility] Work Phone: 1(660) 791-841802-01-2025 [place] [id number] Hospitalist Progress Note Signed Patient: Shawna Hernandes MR#: [id number] : 1945 Acct:[id number] Age/Sex: 79 / M Adm Date: 5 Loc: 3T Room: [address] [place] [address] Type: ADM INOo Attending Dr: Tani Solano DO Copies to: ~ Date of Service: 09/03/2024 Subjective Subjective Narrative: Mr. Hernandes is a 79-year-old male with a past medical history notable for prior traumatic brain injury, CHF with reduced ejection fraction, hypertension, hyperlipidemia and history of myocardial infarction who presents with a chief complaint of weakness at home. Persistently discharged from assisted facility with decline in functional ability at home following stay. PT OT to evaluate today for evaluation of placement. Neuro consulted for Parkinson's-like rigidity- patient started on Sinemet. Neurology consulted today for symptomatic CHF with ejection fraction 15% Today is hospital day 2. Patient seen and evaluated resting in chair at bedside. Overnight, MET called. Orthostatic blood pressure this morning were positive with systolic blood pressure less than 55upon sitting standing. Entresto dose halved, cardiology consulted. Exam Physical Exam Vital Signs: Temp Pulse Resp BP Pulse Ox O2 Del Method 97.4 F L 60 16 86/57 L 97 Room Air 09/03/24 07:51 09/03/24 07:51 09/03/24 07:51 09/03/24 09:11 09/03/24 07:51 09/03/24 07:51 Narrative: GENERAL: No apparent distress, alert, oriented, appears stated age HEENT: NC/AT, EOMI, PERRL, conjunctiva clear, no adenopathy CARDIOVASCULAR: Regular rate and regular rhythm, no murmurs, symmetric palpable radial pulses RESPIRATORY: nonlabored work of breathing on room air, clear to auscultation bilaterally, symmetricchest rise, no wheezes/rales/rhonci ABDOMEN: Soft, non-tender, non-distended, normal bowel sounds BACK: No midline or paraspinal tenderness EXTREMITIES: moving all extremities well. Well-perfused. Possible cogwheel rigidity upper and lowerextremity. sensation intact. No edema SKIN: Intact, no rash, no trauma NEURO: Cranial nerves grossly intact, no focal neurologic signs PSYCHIATRIC: Good eye contact, flat mood and affect, cooperative Objective Lab Results 09/01/24 17:07 09/01/24 17:07 Meds Allergies and Active Meds Allergies No Known Allergies Allergy (Verified 09/01/24 15:35) Active Meds: Active Medications Generic Name Dose Route Start Last Admin Trade Name Suryaq PRN Reason Stop Dose Admin Acetaminophen 650 mg 09/01/24 18:13 09/02/24 02:43 Acetaminophen 325 Mg Tablet PO 09/01/25 18:12 650 mg Q6HR PRN Administration Pain Scale 1 - 3 or fever Amiodarone HCl 200 mg 09/02/24 09:00 09/03/24 07:54 Amiodarone 200 Mg Tablet PO 09/02/25 08:59 200 mg QAM MEGHA Administration Aspirin 81 mg 09/02/24 09:00 09/03/24 07:54 Aspirin 81 Mg Tablet.Dr PO 09/02/25 08:59 81 mg QAM MEGHA Administration Atorvastatin Calcium 80 mg 09/01/24 21:00 09/02/24 22:23 Atorvastatin 80 Mg Tablet PO 09/01/25 20:59 80 mg QPM MEGHA Administration Bumetanide 1 mg 09/02/24 09:00 09/03/24 07:54 Bumetanide 1 Mg Tablet PO 09/02/25 08:59 1 mg QAM MEGHA Administration Carbidopa/Levodopa 1 tab 09/02/24 22:00 09/03/24 07:58 Carbidopa/Levodopa 10-100 Mg 1 Tab Tablet PO 09/02/25 21:59 1 tab TID MEGHA Administration Clopidogrel Bisulfate 75 mg 09/02/24 09:00 09/03/24 07:53 Clopidogrel Bisulfate 75 Mg Tablet PO 09/02/25 08:59 75 mg QAM MEGHA Administration Dapagliflozin 10 mg 09/02/24 09:00 09/03/24 07:53 Dapagliflozin 10 Mg Tablet PO 09/02/25 08:59 10 mg DAILY MEGHA Administration Enoxaparin Sodium 40 mg 09/02/24 10:00 09/03/24 07:53 Enoxaparin 40 Mg/0.4 Ml Syringe SUBCUT 09/02/25 09:59 40 mg DAILY@10 MEGHA Administration Folic Acid 1 tab 09/02/24 09:00 09/03/24 07:53 Cyanocobalamin/Fa/Pyridoxine 1 Tab Tablet PO 09/02/25 08:59 1 tab QAM MEGHA Administration Levothyroxine Sodium 50 mcg 09/02/24 06:30 09/03/24 05:47 Levothyroxine 50 Mcg Tablet PO 09/02/25 06:29 50 mcg DAILY.0630 MEGHA Administration Loperamide HCl 2 mg 09/01/24 19:51 Loperamide 2 Mg Capsule PO 09/01/25 19:50 Q6H PRN loose stool Magnesium Hydroxide 30 ml 09/01/24 19:51 Magnesium Hydroxide Susp 30 Ml Udc PO 09/01/25 19:50 DAILY PRN constipation Melatonin 5 mg 09/01/24 18:13 Melatonin 5 Mg Tablet PO 09/01/25 18:12 QHS PRN Insomnia Mexiletine HCl 150 mg 09/01/24 22:00 09/03/24 07:54 Mexiletine 150 Mg Capsule PO 09/01/25 21:59 150 mg TID MEGHA Administration Nitroglycerin 0.4 mg 09/01/24 19:51 Nitroglycerin 0.4 Mg Tab.Subl SUBLINGUAL 09/01/25 19:50 Q5MIN.X3 PRN Chest Pain Ondansetron HCl 4 mg 09/01/24 18:13 Ondansetron 4 Mg/2 Ml Vial IV-PUSH 09/01/25 18:12 Q8H PRN Nausea And Vomiting Oxycodone/Acetaminophen 1 tab 09/01/24 20:19 Oxycodone/Acetaminophen 5-325 Mg Tablet PO Q6H PRN pain Pantoprazole Sodium 40 mg 09/02/24 07:30 09/03/24 07:55 Pantoprazole 40 Mg Tablet.Dr PO 09/02/25 07:29 40 mg DAILY.AC.BKFAST MEGHA Administration Sacubitril/Valsartan 1 tab 09/01/24 21:00 09/03/24 07:54 Sacubitril/Valsartan 49-51mg 1 Tab Tablet PO 09/01/25 20:59 1 tab BID MEGHA Administration Sennosides 8.6 mg 09/01/24 21:00 09/03/24 07:54 Sennosides 8.6 Mg Tablet PO 09/01/25 20:59 8.6 mg BID MEGHA Administration Sodium Chloride 0 ml 09/01/24 15:32 09/01/24 18:17 Sodium Chloride 0.9 % 10 Ml Syringe IV-PUSH 09/01/25 15:31 10 ml PRN PRN Administration Flush A&P - Hospitalist Assessment/Plan (1) Generalized weakness: (2) Inability to walk: (3) Ischemic cardiomyopathy: (4) Chronic HFrEF (heart failure with reduced ejection fraction): Plan Generalized weakness patient has decreased functional status from baseline likely secondary to recent surgical intervention 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 Eliminate precipitation factors, provide supportive care - Address sensory and cognitive impairments (frequent reorientation, glasses/hearing aids) - Decrease/prevent infection/restraints if possible, remove lines/catheters if unnecessary - Promote good sleep: reduce noise and nighttime intervention Chronic HFrEF Ischemic cardiomyopathy Last echo 11/21/2022 with EF 15 to 20% Patient with symptomatic orthostasis Entresto dose reduced Cardiology consulted, we appreciate your input in this case DVT PPx: Lovenox Diet: Regular CODE STATUS: Full Dispo: Observation, stable Plan of care Discussed with: the medical team, the patient I personally saw this patient on the day of the encounter, reviewed the history,performed the [place] elements of the exam, formulated the plan of care and confirmed the Resident's assessment and plan. MAT was called last night for an episode of severe weakness while getting off the toilet, he was hypertensive again. His Sinemet was held, as well as some of his heart failure medications including Aldactone, Coreg and we did reduce his dose of Entresto starting this evening. Given his low ejection fraction, persistent orthostatic hypotension which is symptomatic with, we will also consult cardiology. Prior to starting Sinemet his GDMT was Aldactone 25 mg, Coreg 6.25 mg twice daily, Entresto 49/51, and Jardiance 10 mg. Once the cement has been completelywashed out of her system this would ideally be what he was resumed on however hemay not able tolerate this at this point in time. Will defer further dosing to cardiology given his significant low EF. - Tani Solano DO Documented By: Tani Solano DO 09/03/24 1041 Signed By: 09/03/24 1307 09/03/24 1051 [facility]02-01-2025 Chief complaint+Reason for visit Narrative* Chief Complaint Admit Date Evaluation September 03, 2024 1 0:44am Evaluation September 03, 2024 4 :53pm Reason for Visit Admit Date Chronic HFrEF (heart failure with reduced ejection fraction) September 03, 2024 10:44am Generalized weakness September 03, 2024 10:44am Hypotension September 03, 2024 1 0:44am Inability to walk September 03, 2024 1 0:44am Ischemic cardiomyopathy September 03 10:44am Ventricular tachycardia September 03 10:44am AICD (automatic cardioverter/defibrillat or) present September 03, 2024 10:44am Coronary artery disease September 03 10:44am Hyperlipidemia September 03, 2024 1 0:44am [facility] Work Phone: 1(861) 790-927102-01-2025 Evaluation note* Diagnosis Onset Date Resolution Status Admit Date Chronic HFrEF (heart failure with reduced ejection fraction) acute September 03, 2024 10:44am Generalized weakness acute Febr uary 2024 10:44am Hypotension acute September 03, 2024 10:44am Inability to walk acute uar y 2024 10:44am Ischemic cardiomyopathy acute F eb2024 10:44am Ventricular tachycardia acute F ebary 2024 10:44am AICD (automatic cardioverter/defibrillator) present chronic September 03 10:44am Coronary artery disease chronic F ebary 2024 10:44am Hyperlipidemia chronic September 032024 10:44am [facility] Work Phone: 1(733) 302-989302-01-2025 Progress note Author Tani Solano [facility] Note Date/Time September 02, 2024 1 0:07pm [facility] [address] [place] [id number] Hospitalist Progress Note Signed Patient: Shawna Hernandes MR#: [id number] : 1945 Acct:[id number] Age/Sex: 79 / M Adm Date: 5 Loc: 3T Room: [address] [place] [address] Type: ADM INOo Attending Dr: Tani Solano DO Copies to: ~ Date of Service: 09/02/2024 Subjective Subjective Narrative: Mr. Hernandes is a 79-year-old male with a past medical history notable for prior traumatic brain injury, CHF with reduced ejection fraction, hypertension, hyperlipidemia and history of myocardial infarction who presents with a chief complaint of weakness at home. Persistently discharged from assisted facility with decline in functional ability at home following stay. PT OT to evaluate today for evaluation of placement. Neuro consulted for Parkinson's-like rigidity, may representing very early stage disease. We appreciate furtherevaluation. Today is hospital day 1. Patient seen and evaluated resting in chair during breakfast. Laboratory results were reviewed independently. No overnight events. Patient denies pain, chest pain, shortness of breath, abdominal pain, dysuria. Further evaluation upon encounter, patient describes significant decline in ADLs and IADLs. at home is responsible for bathing, he is having difficulty with feeding. Patient's 's daughter lives next-door and aids with some home needs. Per patient's report has had functional declineas well. Patient endorses weight loss associated with recent GI surgery and feeding difficulty. Patient denies dental nor visual hearing impairments. Patient states at baseline he ambulates with a walker however he has had difficulty walking recently due to weakness upon returning home. 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 Patient denies overt signs of depression however states that he does not have as much enjoyment in life as he once did, previously active in occupation and relationships. Currently spends most of his day resting and watching TV at home. Exam Physical Exam Vital Signs: Temp Pulse Resp BP Pulse Ox O2 Del Method 97.4 F L 63 14 99/56 L 94 L Room Air 09/02/24 05:43 09/02/24 05:43 09/02/24 05:43 09/02/24 05:43 09/02/24 05:43 09/02/24 05:43 Narrative: GENERAL: No apparent distress, alert, oriented, appears stated age HEENT: NC/AT, EOMI, PERRL, conjunctiva clear, no adenopathy, dentition CARDIOVASCULAR: Regular rate and regular rhythm, no murmurs, symmetric palpable radial pulses RESPIRATORY: nonlabored work of breathing on room air, clear to auscultation bilaterally, symmetric chest rise, no wheezes/rales/rhonci ABDOMEN: Soft, non-tender, non-distended, normal bowel sounds BACK: No midline or paraspinal tenderness EXTREMITIES: moving all extremities well. Well-perfused. Possible cogwheel rigidity lower extremity. sensation intact. No edema SKIN: Intact, no rash, no trauma NEURO: Cranial nerves grossly intact, no focal neurologic signs PSYCHIATRIC: Good eye contact, flat mood and affect, cooperative Objective Lab Results 09/01/24 17:07 09/01/24 17:07 Microbiology Results Microbiology 09/01/24 17:07 Nasopharyngeal Respiratory Panel (PCR) - Final Meds Allergies and Active Meds Allergies No Known Allergies Allergy (Verified 09/01/24 15:35) Active Meds: Active Medications Generic Name Dose Route Start Last Admin Trade Name Freq PRN Reason Stop Dose Admin Acetaminophen 650 mg 09/01/24 18:13 09/02/24 02:43 Acetaminophen 325 Mg Tablet PO 09/01/25 18:12 650 mg Q6HR PRN Administration Pain Scale 1 - 3 or fever Amiodarone HCl 200 mg 09/02/24 09:00 09/02/24 09:49 Amiodarone 200 Mg Tablet PO 09/02/25 08:59 200 mg QAM MEGHA Administration Aspirin 81 mg 09/02/24 09:00 09/02/24 09:50 Aspirin 81 Mg Tablet.Dr PO 09/02/25 08:59 81 mg QAM MEGHA Administration Atorvastatin Calcium 80 mg 09/01/24 21:00 09/01/24 21:03 Atorvastatin 80 Mg Tablet PO 09/01/25 20:59 80 mg QPM MEGHA Administration Bumetanide 1 mg 09/02/24 09:00 09/02/24 09:49 Bumetanide 1 Mg Tablet PO 09/02/25 08:59 1 mg QAM MEGHA Administration Carvedilol 6.25 mg 09/02/24 08:00 09/02/24 09:49 Carvedilol 6.25 Mg Tablet PO 09/02/25 07:59 6.25 mg BID.WITH.MEALS MEGHA Administration Clopidogrel Bisulfate 75 mg 09/02/24 09:00 09/02/24 09:49 Clopidogrel Bisulfate 75 Mg Tablet PO 09/02/25 08:59 75 mg QAM MEGHA Administration Dapagliflozin 10 mg 09/02/24 09:00 09/02/24 09:50 Dapagliflozin 10 Mg Tablet PO 09/02/25 08:59 10 mg DAILY MEGHA Administration Enoxaparin Sodium 40 mg 09/02/24 10:00 09/02/24 09:49 Enoxaparin 40 Mg/0.4 Ml Syringe SUBCUT 09/02/25 09:59 40 mg DAILY@10 [facility] Administration Folic Acid 1 tab 09/02/24 09:00 09/02/24 09:49 Cyanocobalamin/Fa/Pyridoxine 1 Tab Tablet PO 09/02/25 08:59 1 tab QAM MEGHA Administration Levothyroxine Sodium 50 mcg 09/02/24 06:30 09/02/24 05:44 Levothyroxine 50 Mcg Tablet PO 09/02/25 06:29 50 mcg DAILY.0630 MEGHA Administration Loperamide HCl 2 mg 09/01/24 19:51 Loperamide 2 Mg Capsule PO 09/01/25 19:50 Q6H PRN loose stool Magnesium Hydroxide 30 ml 09/01/24 19:51 Magnesium Hydroxide Susp 30 Ml Udc PO 09/01/25 19:50 DAILY PRN constipation Melatonin 5 mg 09/01/24 18:13 Melatonin 5 Mg Tablet PO 09/01/25 18:12 QHS PRN Insomnia Mexiletine HCl 150 mg 09/01/24 22:00 09/02/24 09:51 Mexiletine 150 Mg Capsule PO 09/01/25 21:59 150 mg TID MEGHA Administration Nitroglycerin 0.4 mg 09/01/24 19:51 Nitroglycerin 0.4 Mg Tab.Subl SUBLINGUAL 09/01/25 19:50 Q5MIN.X3 PRN Chest Pain Ondansetron HCl 4 mg 09/01/24 18:13 Ondansetron 4 Mg/2 Ml Vial IV-PUSH 09/01/25 18:12 Q8H PRN Nausea And Vomiting Oxycodone/Acetaminophen 1 tab 09/01/24 20:19 Oxycodone/Acetaminophen 5-325 Mg Tablet PO Q6H PRN pain Pantoprazole Sodium 40 mg 09/02/24 07:30 Pantoprazole 40 Mg Tablet.Dr GARCIA 09/02/25 07:29 DAILY.AC.BKFAST MEGHA Sacubitril/Valsartan 1 tab 09/01/24 21:00 09/02/24 09:49 Sacubitril/Valsartan 49-51mg 1 Tab Tablet PO 09/01/25 20:59 1 tab BID MEGHA Administration Sennosides 8.6 mg 09/01/24 21:00 09/01/24 21:03 Sennosides 8.6 Mg Tablet PO 09/01/25 20:59 8.6 mg BID MEGHA Administration Sodium Chloride 0 ml 09/01/24 15:32 09/01/24 18:17 Sodium Chloride 0.9 % 10 Ml Syringe IV-PUSH 09/01/25 15:31 10 ml PRN PRN Administration Flush Spironolactone 25 mg 09/02/24 09:00 Spironolactone 25 Mg Tablet PO 09/02/25 08:59 QAM [facility] - Hospitalist Assessment/Plan (1) Generalized weakness: (2) Inability to walk: (3) Ischemic cardiomyopathy: (4) Chronic HFrEF (heart failure with reduced ejection fraction): Plan Generalized weakness patient has decreased functional status from baseline likely secondary to recent surgical intervention 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 Places Aldactone and Coreg on hold ? Monitor blood pressure tomorrow, low threshold to decrease his dose of Entresto as well. Eliminate precipitation factors, provide supportive care - Address sensory and cognitive impairments (frequent reorientation, glasses/hearing aids) - Decrease/prevent infection/restraints if possible, remove lines/catheters if unnecessary - Promote good sleep: reduce noise and nighttime intervention Ischemic cardiomyopathy Stable, not in exacerbation Chronic HFrEF Stable, continue home medications. Patient is on appropriate medical therapy for this. DVT PPx: Lovenox Diet: Regular CODE STATUS: Full Dispo: Observation, stable Plan of care Discussed with: the medical team, the patient I personally saw this patient on the day of the encounter, reviewed the history,performed the [place] elements of the exam, formulated the plan of care and confirmed the Resident's assessment and plan. Seen and evaluated in conjunctionwith Dr. Ventura, patient was laying in bed, he was doing well, he does not are stable a bit better than he did upon admission however he is still quite weak. His at bedside, I did explain that there is no reversible organic cause that was found with the lab workup, recommend to continue with PT OT and plan isto return to SNF. He is orthostatic positive for his blood pressure, will hold his Aldactone and Coreg. - Tani Solano DO Documented By: Tani Solano DO 09/02/24 0957 Signed By: <Electronically signed by Tani Solano DO> 09/02/242206 <Electronically signed by DO KYRA Ventura> 09/02/24 1003 [facility] Work Phone: [phone]) 155-250901-31-2025 [place] [address] Hospitalist Progress Note Signed Patient: Shawna Hernandes MR#: [id number] : 1945 Acct:[id number] Age/Sex: 79 / M Adm Date: 5 Loc: Room: [address] [place] [address] Type: ADM INOo Attending Dr: Tani Solano DO Copies to: ~ Date of Service: 09/02/2024 Subjective Subjective Narrative: Mr. Hernandes is a 79-year-old male with a past medical history notable for prior traumatic brain injury, CHF with reduced ejection fraction, hypertension, hyperlipidemia and history of myocardial infarction who presents with a chief complaint of weakness at home. Persistently discharged from assisted facility with decline in functional ability at home following stay. PT OT to evaluate today for evaluation of placement. Neuro consulted for Parkinson's-like rigidity, may representing very early stage disease. We appreciate furtherevaluation. Today is hospital day 1. Patient seen and evaluated resting in chair during breakfast. Laboratory results were reviewed independently. No overnight events. Patient denies pain, chest pain, shortness of breath, abdominal pain, dysuria. Further evaluation upon encounter, patient describes significantdecline in ADLs and IADLs. at home is responsible for bathing, he is having difficulty with feeding. Patient's 's daughter lives next-door and aids with some home needs. Per patient's reportwife has had functional declineas well. Patient endorses weight loss associated with recent GI surgery and feeding difficulty. Patient denies dental nor visual hearing impairments. Patient states at baseline he ambulates with a walker however he has had difficulty walking recently due to weakness upon returning home. 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 Patient denies overt signsof depression however states that he does not have as much enjoyment in life as he once did, previou sly active in occupation and relationships. Currently spends most of his day resting and watching TV at home. Exam Physical Exam Vital Signs: Temp Pulse Resp BP Pulse Ox O2 Del Method 97.4 F L 63 14 99/56 L 94 L Room Air 09/02/24 05:43 09/02/24 05:43 09/02/24 05:43 09/02/24 05:43 09/02/24 05:43 09/02/24 05:43 Narrative: GENERAL: No apparent distress, alert, oriented, appears stated age HEENT: NC/AT, EOMI, PERRL, conjunctiva clear, no adenopathy, dentition CARDIOVASCULAR: Regular rate and regular rhythm, no murmurs, symmetric palpable radial pulses RESPIRATORY: nonlabored work of breathing on room air, clear to auscultation bilaterally, symmetricchest rise, no wheezes/rales/rhonci ABDOMEN: Soft, non-tender, non-distended, normal bowel sounds BACK: No midline or paraspinal tenderness EXTREMITIES: moving all extremities well. Well-perfused. Possible cogwheel rigidity lower extremity. sensation intact. No edema SKIN: Intact, no rash, no trauma NEURO: Cranial nerves grossly intact, no focal neurologic signs PSYCHIATRIC: Good eye contact, flat mood and affect, cooperative Objective Lab Results 09/01/24 17:07 09/01/24 17:07 Microbiology Results Microbiology 09/01/24 17:07 Nasopharyngeal Respiratory Panel (PCR) - Final Meds Allergies and Active Meds Allergies No Known Allergies Allergy (Verified 09/01/24 15:35) Active Meds: Active Medications Generic Name Dose Route Start Last Admin Trade Name Freq PRN Reason Stop Dose Admin Acetaminophen 650 mg 09/01/24 18:13 09/02/24 02:43 Acetaminophen 325 Mg Tablet PO 09/01/25 18:12 650 mg Q6HR PRN Administration Pain Scale 1 - 3 or fever Amiodarone HCl 200 mg 09/02/24 09:00 09/02/24 09:49 Amiodarone 200 Mg Tablet PO 09/02/25 08:59 200 mg QAM MEGHA Administration Aspirin 81 mg 09/02/24 09:00 09/02/24 09:50 Aspirin 81 Mg Tablet.Dr PO 09/02/25 08:59 81 mg QAM MEGHA Administration Atorvastatin Calcium 80 mg 09/01/24 21:00 09/01/24 21:03 Atorvastatin 80 Mg Tablet PO 09/01/25 20:59 80 mg QPM MEGHA Administration Bumetanide 1 mg 09/02/24 09:00 09/02/24 09:49 Bumetanide 1 Mg Tablet PO 09/02/25 08:59 1 mg QAM MEGHA Administration Carvedilol 6.25 mg 09/02/24 08:00 09/02/24 09:49 Carvedilol 6.25 Mg Tablet PO 09/02/25 07:59 6.25 mg BID.WITH.MEALS MEGHA Administration Clopidogrel Bisulfate 75 mg 09/02/24 09:00 09/02/24 09:49 Clopidogrel Bisulfate 75 Mg Tablet PO 09/02/25 08:59 75 mg QAM MEGHA Administration Dapagliflozin 10 mg 09/02/24 09:00 09/02/24 09:50 Dapagliflozin 10 Mg Tablet PO 09/02/25 08:59 10 mg DAILY MEGHA Administration Enoxaparin Sodium 40 mg 09/02/24 10:00 09/02/24 09:49 Enoxaparin 40 Mg/0.4 Ml Syringe SUBCUT 09/02/25 09:59 40 mg DAILY@10 MEGHA Administration Folic Acid 1 tab 09/02/24 09:00 09/02/24 09:49 Cyanocobalamin/Fa/Pyridoxine 1 Tab Tablet PO 09/02/25 08:59 1 tab QAM MEGHA Administration Levothyroxine Sodium 50 mcg 09/02/24 06:30 09/02/24 05:44 Levothyroxine 50 Mcg Tablet PO 09/02/25 06:29 50 mcg DAILY.0630 MEGHA Administration Loperamide HCl 2 mg 09/01/24 19:51 Loperamide 2 Mg Capsule PO 09/01/25 19:50 Q6H PRN loose stool Magnesium Hydroxide 30 ml 09/01/24 19:51 Magnesium Hydroxide Susp 30 Ml Udc PO 09/01/25 19:50 DAILY PRN constipation Melatonin 5 mg 09/01/24 18:13 Melatonin 5 Mg Tablet PO 09/01/25 18:12 QHS PRN Insomnia Mexiletine HCl 150 mg 09/01/24 22:00 09/02/24 09:51 Mexiletine 150 Mg Capsule PO 09/01/25 21:59 150 mg TID MEGHA Administration Nitroglycerin 0.4 mg 09/01/24 19:51 Nitroglycerin 0.4 Mg Tab.Subl SUBLINGUAL 09/01/25 19:50 Q5MIN.X3 PRN Chest Pain Ondansetron HCl 4 mg 09/01/24 18:13 Ondansetron 4 Mg/2 Ml Vial IV-PUSH 09/01/25 18:12 Q8H PRN Nausea And Vomiting Oxycodone/Acetaminophen 1 tab 09/01/24 20:19 Oxycodone/Acetaminophen 5-325 Mg Tablet PO Q6H PRN pain Pantoprazole Sodium 40 mg 09/02/24 07:30 Pantoprazole 40 Mg Tablet.Dr PO 09/02/25 07:29 DAILY.AC.BKFAST MEGHA Sacubitril/Valsartan 1 tab 09/01/24 21:00 09/02/24 09:49 Sacubitril/Valsartan 49-51mg 1 Tab Tablet PO 09/01/25 20:59 1 tab BID MEGHA Administration Sennosides 8.6 mg 09/01/24 21:00 09/01/24 21:03 Sennosides 8.6 Mg Tablet PO 09/01/25 20:59 8.6 mg BID MEGHA Administration Sodium Chloride 0 ml 09/01/24 15:32 09/01/24 18:17 Sodium Chloride 0.9 % 10 Ml Syringe IV-PUSH 09/01/25 15:31 10 ml PRN PRN Administration Flush Spironolactone 25 mg 09/02/24 09:00 Spironolactone 25 Mg Tablet PO 09/02/25 08:59 QAM [facility] - Hospitalist Assessment/Plan (1) Generalized weakness: (2) Inability to walk: (3) Ischemic cardiomyopathy: (4) Chronic HFrEF (heart failure with reduced ejection fraction): Plan Generalized weakness patient has decreased functional status from baseline likely secondary to recent surgical intervention 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 Places Aldactone and Coreg on hold ? Monitor blood pressure tomorrow, low threshold to decrease his dose of Entresto as well. Eliminate precipitation factors, provide supportive care - Address sensory and cognitive impairments (frequent reorientation, glasses/hearing aids) - Decrease/prevent infection/restraints if possible, remove lines/catheters if unnecessary - Promote good sleep: reduce noise and nighttime intervention Ischemic cardiomyopathy Stable, not in exacerbation Chronic HFrEF Stable, continue home medications. Patient is on appropriate medical therapy for this. DVT PPx: Lovenox Diet: Regular CODE STATUS: Full Dispo: Observation, stable Plan of care Discussed with: the medical team, the patient I personally saw this patient on the day of the encounter, reviewed the history,performed the villela elements of the exam, formulated the plan of care and confirmed the Resident's assessment and plan. Seen and evaluated in conjunctionwith Dr. Ventura, patient was laying in bed, he was doing well, he does not are stable a bit better than he did upon admission however he is still quite weak. His atbedside, I did explain that there is no reversible organic cause that was found with the lab workup, recommend to continue with PT OT and plan isto return to SNF. He is orthostatic positive for his blood pressure, will hold his Aldactone and Coreg. - Tani Solano DO Documented By: Tani Solano DO 09/02/24 0957 Signed By: 09/02/24 2207 09/02/24 1008 [facility]01-31-2025 Consult note Author Kalie Sweet [facility] Note Date/Time September 02, 2024 6 :52pm [facility] [address] [place] [address] Neurology Consult Note Signed Patient: Shawna Hernandes MR#: [id number] : 1945 Acct:[id number] Age/Sex: 79 / M Adm Date: 5 Loc: Room: 3A8854-9 Type: ADM INOo Attending Dr: Tani Solano DO Copies to: DO Tani Suárez DO Steven Benedict, MD~ HPI Consult Date: 09/02/24 Director Of Strategic Sales: Kalie Sweet MD Reason for consult: Tremor Consult Narrative HPI: The patient is a 79-year-old male who I was asked to see in neurological consultation for tremor. The patient has a past medical history of traumatic brain injury, hypertension, hyperlipidemia, coronary artery disease, cardiomyopathy with reduced ejection fraction of 15%, who presents to the hospital with weakness. The patient recently has had a prolonged hospitalization for cholecystitis requiring transfer to the [facility] where he underwent surgery. The patient subsequently went to rehabilitation where he was able to ambulate with a walker. The patient was discharged home and over the past 10 days reports increased difficulty with getting around. Thepatient reports generalized weakness. The patient denies any unilateral numbness, unilateral weakness, or vision changes. The patient does report tremor in his lower extremities with walking in his upper extremities with action. He reports symptoms consistent with bradykinesia. The patient denies any headaches nausea or vomiting Review of Systems Review of Systems All other systems reviewed & are negative unless noted below or in HPI COUNTS INCLUDE 234 BEDS AT THE [facility] Medical History Defibrillator discharge TBI (traumatic brain injury) Neuropathy TIA (transient ischemic attack) Macular degeneration BPH (benign prostatic hyperplasia) Cardiomyopathy Hyperlipemia Hypertension CHF (congestive heart failure) History of myocardial infarction Surgical History Status post biventricular pacemaker History of vasectomy History of phacoemulsification of cataract of both eyes with intraocular lens implantation History of tonsillectomy History of cystoscopy History of hernia surgery History of cardiac catheterization AICD (automatic cardioverter/defibrillator) present Family History Father Myocardial infarction Mother Hypertension Brother History of heart surgery Brother Heart disease Sister Hypertension Thyroid disease Sister Hypertension Thyroid disease Brother Hypertension Legacy FamHx Relation: Brother(s) Heart disease Legacy FamHx Relation: Brother(s) Father Heart disease 50 yrs Mother 89 yrs Sister Hypertension Heart disease Social History Smoking Status: Former smoker Tobacco Type: cigarettes Substance Use Type: None Substance Abuse Comment: rarely Social History Comments: He admits that he did smoke but it was 50 years ago andat that time he only smoked for 3 years and it was a pipe only and that he did not inhale. Rarely drank any alcohol. Meds Medications and Allergies Allergies No Known Allergies Allergy (Verified 09/01/24 15:35) Home Medications aspirin 81 mg tablet,delayed release 81 mg PO QAM 11/15/17 [History Confirmed 09/01/24] bumetanide 1 mg tablet 1 mg PO QAM 11/15/17 [History Confirmed 09/01/24] nitroglycerin 0.4 mg sublingual tablet (Nitrostat) 0.4 mg sublingual DIRECTEDPRN Chest Pain 11/15/17 [History Confirmed 09/01/24] biotin 5 mg capsule 5 mg PO QAM 09/02/19 [History Confirmed 09/01/24] vit A 300 mcg-C 200 mg-E 27 mg-lutein 2 mg and minerals tablet (Eye Health Plus Lutein) 1 tab PO QAM 09/02/19 [History Confirmed 09/01/24] vitamin B complex 1 cap PO QAM 09/02/19 [History Confirmed 09/01/24] atorvastatin 80 mg tablet 80 mg PO QPM 08/13/22 [History Confirmed 09/01/24] clopidogrel 75 mg tablet 75 mg PO QAM 08/13/22 [History Confirmed 09/01/24] levothyroxine 50 mcg tablet 50 mcg PO QAM 08/13/22 [History Confirmed 09/01/24] empagliflozin 10 mg tablet (Jardiance) 10 mg PO DAILY 11/21/22 [History Confirmed 09/01/24] spironolactone 25 mg tablet 25 mg PO QAM 30 days #30 tabs 11/25/22 [Rx Confirmed 09/01/24] amiodarone 100 mg tablet 200 mg PO QAM 04/17/23 [History Confirmed 09/01/24] mexiletine 150 mg capsule 150 mg PO TID 04/17/23 [History Confirmed 09/01/24] ascorbate calcium (vitamin C) 500 mg tablet 500 mg PO DAILY 02/19/24 [History Confirmed 09/01/24] carvedilol 12.5 mg tablet 6.25 mg PO BID 02/19/24 [History Confirmed 09/01/24] pantoprazole 40 mg tablet,delayed release 40 mg PO DAILY 30 days #30 tabs 02/19/24 [Rx Confirmed 09/01/24] sacubitril 49 mg-valsartan 51 mg tablet (Entresto) 1 tab PO BID 02/19/24 [History Confirmed 09/01/24] acetaminophen 325 mg capsule 650 mg PO Q4-6H PRN fever or pain 09/01/24 [History Confirmed 09/01/24] loperamide 2 mg capsule 2 mg PO Q4-6H PRN loose stool 09/01/24 [History Confirmed 09/01/24] magnesium hydroxide 400 mg/5 mL oral suspension (Dulcolax (magnesium hydroxide))30 ml PO DAILY PRN constipation 09/01/24 [History Confirmed 09/01/24] melatonin 3 mg capsule 1 mg PO QHS 09/01/24 [History Confirmed 09/01/24] ondansetron 4 mg disintegrating tablet 4 mg translingual Q4HR PRN nausea and vomiting 09/01/24 [History Confirmed 09/01/24] oxycodone-acetaminophen 5 mg-300 mg tablet 1 tab PO Q4-6H PRN pain 09/01/24 [History Confirmed 09/01/24] sennosides 8.6 mg capsule (senna) 8.6 mg PO BID 09/01/24 [History Confirmed 09/01/24] Exam Physical Exam Vital Signs: Temp Pulse Resp BP Pulse Ox O2 Del Method 97.7 F 60 16 100/60 95 Room Air 09/02/24 16:00 09/02/24 16:00 09/02/24 16:00 09/02/24 16:00 09/02/24 16:00 09/02/24 16:00 Narrative: Neurological exam: General: The patient is awake alert and oriented. Language is intact. Cranial nerves: Pupils equal round reactive light and accommodation, extraocularmovements intact, visual gleason are full to confrontation, sensations intact in the face, hearing is intact to finger rub, palate elevates bilaterally, tongue protrudes midline, shoulder shrug is symmetric. Motor: Strength testing is 5 out of 5 in all 4 extremities, deep tendon reflexesare 2+ and symmetric throughout, plantar reflexes flexor, tone is normal throughout. The patient does have mild cogwheel rigidity in the upper extremities. There is no noted tremor with action or rest. Sensory: Light touch is intact in all 4 extremities Cerebellar/gait: No ataxia noted on finger to nose Results - Neuro Laboratory Findings 09/01/24 17:07 09/01/24 17:07 Diagnostic Findings Imaging/Impressions: ITS Impressions Head CT 09/01/24 16:35 IMPRESSION: No acute findings. Impression dictated by: Rashaun Shin M.D.09/01/2024 6:41 PM Dictation Location: [facility] Abdomen/Pelvis CT 09/01/24 16:36 IMPRESSION: Recent cholecystectomy changes. No developing fluid collection. Nopneumoperitoneum. No acute abdominal or pelvic findings. Right gluteal subcutaneous stranding. Consider contusion. No hematoma. Impression dictated by: Rashaun Shin M.D.09/01/2024 6:50 PM Dictation Location: [facility] Therapy Recommendations Therapy Recommendations: PT Recommendations PT Recommended Discharge Home with Home Health,Inpatient Rehab Unit Location PT Recommended Services at Physical Therapy,Occassional Supervision Discharge PT Discharge Comment dependent on pt progress Assessment/Plan (1) Inability to walk: Assessment/Problem Details: The patient is a 79-year-old male with progressive weakness since discharge fromrehabilitation. The patient was in rehab for debility related to prolonged hospitalization. The patient reports balance difficulties which began approximately 6 months ago requiring use of a walker. The patient does have symptoms consistent with bradykinesia and has cogwheel rigidity on exam. The patient has extrapyramidal symptoms suggestive of an underlying neurodegenerative disease such as Parkinson's disease which may be contributing to a component of the patient's weakness. I counseled the patient and his on the possible diagnosis, prognosis, evaluation, treatment options. I recommended Sinemet 10/100 p.o. 3 times daily for extra pyramidal symptoms. I counseled the patient and his on possible side effects and interactions. The patient may benefit from evaluation by physical therapy and Occupational Therapy. The patient can follow-up in the adult outpatient neurology clinic. Documented By: Kalie Sweet MD 09/02/24 5547 Signed By: <Electronically signed by MD Kalie Sweet> 09/02/24 1852 [facility] Work Phone: [phone]) 825-587601-31-2025 [place] [address] Neurology Consult Note Signed Patient: Shawna Hernandes MR#: [id number] : 1945 Acct:[id number] Age/Sex: 79 / M Adm Date: 5 Loc: 3T Room: [address] [place] [address] Type: ADM INOo Attending Dr: Tani Solano DO Copies to: Agus Nation,DO Tani Solano, DO Kalie Sweet MD~ HPI Consult Date: 09/02/24 Director Of Strategic Sales: Kalie Sweet MD Reason for consult: Tremor Consult Narrative HPI: The patient is a 79-year-old male who I was asked to see in neurological consultation for tremor. The patient has a past medical history of traumatic brain injury, hypertension, hyperlipidemia, coronary artery disease, cardiomyopathy with reduced ejection fraction of 15%, who presents to the hospital with weakness. The patient recently has had a prolonged hospitalization for cholecystitis requiring transfer to the [facility] where he underwent surgery. The patient subsequently went to rehabilitation where he was able to ambulate with a walker. The patient was discharged home and over the past 10 days reports increased difficulty with getting around. Thepatient reports generalized weakness. The patient denies any unilateral numbness, unilateral weakness, or vision changes. The patient does report tremor in his lower extremities with walking in his upper extremities with action. He reports symptoms consistent with bradykinesia. The patient denies any headaches nausea or vomiting Review of Systems Review of Systems All other systems reviewed & are negative unless noted below or in HPI COUNTS INCLUDE 234 BEDS AT THE [facility] Medical History Defibrillator discharge TBI (traumatic brain injury) Neuropathy TIA (transient ischemic attack) Macular degeneration BPH (benign prostatic hyperplasia) Cardiomyopathy Hyperlipemia Hypertension CHF (congestive heart failure) History of myocardial infarction Surgical History Status post biventricular pacemaker History of vasectomy History of phacoemulsification of cataract of both eyes with intraocular lens implantation History of tonsillectomy History of cystoscopy History of hernia surgery History of cardiac catheterization AICD (automatic cardioverter/defibrillator) present Family History Father Myocardial infarction Mother Hypertension Brother History of heart surgery Brother Heart disease Sister Hypertension Thyroid disease Sister Hypertension Thyroid disease Brother Hypertension Legacy FamHx Relation: Brother(s) Heart disease Legacy FamHx Relation: Brother(s) Father Heart disease 50 yrs Mother 89 yrs Sister Hypertension Heart disease Social History Smoking Status: Former smoker Tobacco Type: cigarettes Substance Use Type: None Substance Abuse Comment: rarely Social History Comments: He admits that he did smoke but it was 50 years ago andat that time he only smoked for 3 years and it was a pipe only and that he did not inhale. Rarely drank any alcohol. Meds Medications and Allergies Allergies No Known Allergies Allergy (Verified 09/01/24 15:35) Home Medications aspirin 81 mg tablet,delayed release 81 mg PO QAM 11/15/17 [History Confirmed 09/01/24] bumetanide 1 mg tablet 1 mg PO QAM 11/15/17 [History Confirmed 09/01/24] nitroglycerin 0.4 mg sublingual tablet (Nitrostat) 0.4 mg sublingual DIRECTEDPRN Chest Pain 11/15/17 [History Confirmed 09/01/24] biotin 5 mg capsule 5 mg PO QAM 09/02/19 [History Confirmed 09/01/24] vit A 300 mcg-C 200 mg-E 27 mg-lutein 2 mg and minerals tablet (Eye Health Plus Lutein) 1 tab PO QAM 09/02/19 [History Confirmed 09/01/24] vitamin B complex 1 cap PO QAM 09/02/19 [History Confirmed 09/01/24] atorvastatin 80 mg tablet 80 mg PO QPM 08/13/22 [History Confirmed 09/01/24] clopidogrel 75 mg tablet 75 mg PO QAM 08/13/22 [History Confirmed 09/01/24] levothyroxine 50 mcg tablet 50 mcg PO QAM 08/13/22 [History Confirmed 09/01/24] empagliflozin 10 mg tablet (Jardiance) 10 mg PO DAILY 11/21/22 [History Confirmed 09/01/24] spironolactone 25 mg tablet 25 mg PO QAM 30 days #30 tabs 11/25/22 [Rx Confirmed 09/01/24] amiodarone 100 mg tablet 200 mg PO QAM 04/17/23 [History Confirmed 09/01/24] mexiletine 150 mg capsule 150 mg PO TID 04/17/23 [History Confirmed 09/01/24] ascorbate calcium (vitamin C) 500 mg tablet 500 mg PO DAILY 02/19/24 [History Confirmed 09/01/24] carvedilol 12.5 mg tablet 6.25 mg PO BID 02/19/24 [History Confirmed 09/01/24] pantoprazole 40 mg tablet,delayed release 40 mg PO DAILY 30 days #30 tabs 02/19/24 [Rx Confirmed 09/01/24] sacubitril 49 mg-valsartan 51 mg tablet (Entresto) 1 tab PO BID 02/19/24 [History Confirmed 09/01/24] acetaminophen 325 mg capsule 650 mg PO Q4-6H PRN fever or pain 09/01/24 [History Confirmed 09/01/24] loperamide 2 mg capsule 2 mg PO Q4-6H PRN loose stool 09/01/24 [History Confirmed 09/01/24] magnesium hydroxide 400 mg/5 mL oral suspension (Dulcolax (magnesium hydroxide))30 ml PO DAILY PRN constipation 09/01/24 [History Confirmed 09/01/24] melatonin 3 mg capsule 1 mg PO QHS 09/01/24 [History Confirmed 09/01/24] ondansetron 4 mg disintegrating tablet 4 mg translingual Q4HR PRN nausea and vomiting 09/01/24 [History Confirmed 09/01/24] oxycodone-acetaminophen 5 mg-300 mg tablet 1 tab PO Q4-6H PRN pain 09/01/24 [History Confirmed 09/01/24] sennosides 8.6 mg capsule (senna) 8.6 mg PO BID 09/01/24 [History Confirmed 09/01/24] Exam Physical Exam Vital Signs: Temp Pulse Resp BP Pulse Ox O2 Del Method 97.7 F 60 16 100/60 95 Room Air 09/02/24 16:00 09/02/24 16:00 09/02/24 16:00 09/02/24 16:00 09/02/24 16:00 09/02/24 16:00 Narrative: Neurological exam: General: The patient is awake alert and oriented. Language is intact. Cranial nerves: Pupils equal round reactive light and accommodation, extraocularmovements intact, visual gleason are full to confrontation, sensations intact in the face, hearing is intact to finger rub, palate elevates bilaterally, tongue protrudes midline, shoulder shrug is symmetric. Motor: Strength testing is 5 out of 5 in all 4 extremities, deep tendon reflexesare 2+ and symmetric throughout, plantar reflexes flexor, tone is normal throughout. The patient does have mild cogwheel rigidity in the upper extremities. There is no noted tremor with action or rest. Sensory: Light touch is intact in all 4 extremities Cerebellar/gait: No ataxia noted on finger to nose Results - Neuro Laboratory Findings 09/01/24 17:07 09/01/24 17:07 Diagnostic Findings Imaging/Impressions: ITS Impressions Head CT 09/01/24 16:35 IMPRESSION: No acute findings. Impression dictated by: Rashaun Shin M.D.09/01/2024 6:41 PM Dictation Location: [facility] Abdomen/Pelvis CT 09/01/24 16:36 IMPRESSION: Recent cholecystectomy changes. No developing fluid collection. Nopneumoperitoneum. No acute abdominal or pelvic findings. Right gluteal subcutaneous stranding. Consider contusion. No hematoma. Impression dictated by: Rashaun Shin M.D.09/01/2024 6:50 PM Dictation Location: [facility] Therapy Recommendations Therapy Recommendations: PT Recommendations PT Recommended Discharge Home with Home Health,Inpatient Rehab Unit Location PT Recommended Services at Physical Therapy,Occassional Supervision Discharge PT Discharge Comment dependent on pt progress Assessment/Plan (1) Inability to walk: Assessment/Problem Details: The patient is a 79-year-old male with progressive weakness since discharge fromrehabilitation. Thepatient was in rehab for debility related to prolonged hospitalization. The patient reports balancedifficulties which began approximately 6 months ago requiring use of a walker. The patient does have symptoms consistent with bradykinesia and has cogwheel rigidity on exam. The patient has extrapyramidal symptoms suggestive of an underlying neurodegenerative disease such as Parkinson's disease which may be contributing to a component of the patient's weakness. I counseled the patient and his on the possible diagnosis, prognosis, evaluation, treatment options. I recommended Sinemet 10/100 p.o. 3 times daily for extra pyramidal symptoms. I counseled the patient and his on possible side effects and interactions. The patient may benefit from evaluation by physical therapy and Occupational Therapy. The patient can follow-up in the adult outpatient neurology clinic. Documented By: Kalie Sweet MD 09/02/241844 Signed By: 09/02/241851 [facility]01-30-2025 History and physical note Author Tani Solano [facility] Note Date/Time September 01, 2024 8 :03pm [facility] [address] [place] [address] Hospitalist H&P Signed Patient: Shawna Hernandes MR#: [id number] : 1945 Acct:[id number] Age/Sex: 79 / M Adm Date: 5 Loc: Room: [address] [place] [address] Type: ADM INOo Attending Dr: Tani Solano DO Copies to: DO Tani Suárez, ~ HPI DATE OF EXAMINATION: 09/01/24 CHIEF COMPLAINT: weakness HISTORY OF PRESENT ILLNESS: Mr Hernandes is a 79-year-old male with a past medical history notable for prior traumatic brain injury, CHF with reduced ejection fraction, hypertension, hyperlipidemia and history of myocardial infarction who presents with a chief complaint of weakness at home. The patient recently had a prolonged hospitalization for cholecystitis, he was transferred from here to [facility] due to his ejection fraction being 15%. At [facility] he underwentan open cholecystectomy and this was in May 2024, after which he was discharged to a assisted facility for physical occupational therapy. He states he was doing quite well with facility with his rehab, he was able to walkthe entire length of the hallway with his walker and he was subsequently discharged home for for continuation of outpatient therapy with home health. Hewas home for about 10 days and the therapist was not scheduled currently feels no tomorrow, he experienced 2 falls recently and that pending., He feels he hasgotten significantly weaker since being discharged from the assisted facility as he has not had any formal therapy for the past 10 days. He denies hitting his head when he fell, he denies any pain right now, his only complaint is weakness. He is tolerating food without difficulty, he is eating and drinking well, he is having normal bowel movements and urinating without difficulty. Review of Systems Review of Systems All other systems reviewed & are negative unless noted below or in HPI COUNTS INCLUDE 234 BEDS AT [facility] Medical History Defibrillator discharge TBI (traumatic brain injury) Neuropathy TIA (transient ischemic attack) Macular degeneration BPH (benign prostatic hyperplasia) Cardiomyopathy Hyperlipemia Hypertension CHF (congestive heart failure) History of myocardial infarction Surgical History Status post biventricular pacemaker History of vasectomy History of phacoemulsification of cataract of both eyes with intraocular lens implantation History of tonsillectomy History of cystoscopy History of hernia surgery History of cardiac catheterization AICD (automatic cardioverter/defibrillator) present Family History Father Myocardial infarction Mother Hypertension Brother History of heart surgery Brother Heart disease Sister Hypertension Thyroid disease Sister Hypertension Thyroid disease Brother Hypertension Legacy FamHx Relation: Brother(s) Heart disease Legacy FamHx Relation: Brother(s) Father Heart disease 50 yrs Mother 89 yrs Sister Hypertension Heart disease Social History Smoking Status: Former smoker Tobacco Type: cigarettes Substance Use Type: None Substance Abuse Comment: rarely Social History Comments: He admits that he did smoke but it was 50 years ago andat that time he only smoked for 3 years and it was a pipe only and that he did not inhale. Rarely drank any alcohol. Meds Medications and Allergies Allergies No Known Allergies Allergy (Verified 09/01/24 15:35) Home Medications aspirin 81 mg tablet,delayed release 81 mg PO QAM 11/15/17 [History Confirmed 09/01/24] bumetanide 1 mg tablet 1 mg PO QAM 11/15/17 [History Confirmed 09/01/24] nitroglycerin 0.4 mg sublingual tablet (Nitrostat) 0.4 mg sublingual DIRECTEDPRN Chest Pain 11/15/17 [History Confirmed 09/01/24] biotin 5 mg capsule 5 mg PO QAM 09/02/19 [History Confirmed 09/01/24] vit A 300 mcg-C 200 mg-E 27 mg-lutein 2 mg and minerals tablet (Eye Health Plus Lutein) 1 tab PO QAM 09/02/19 [History Confirmed 09/01/24] vitamin B complex 1 cap PO QAM 09/02/19 [History Confirmed 09/01/24] atorvastatin 80 mg tablet 80 mg PO QPM 08/13/22 [History Confirmed 09/01/24] clopidogrel 75 mg tablet 75 mg PO QAM 08/13/22 [History Confirmed 09/01/24] levothyroxine 50 mcg tablet 50 mcg PO QAM 08/13/22 [History Confirmed 09/01/24] empagliflozin 10 mg tablet (Jardiance) 10 mg PO DAILY 11/21/22 [History Confirmed 09/01/24] spironolactone 25 mg tablet 25 mg PO QAM 30 days #30 tabs 11/25/22 [Rx Confirmed 09/01/24] amiodarone 100 mg tablet 200 mg PO QAM 04/17/23 [History Confirmed 09/01/24] mexiletine 150 mg capsule 150 mg PO TID 04/17/23 [History Confirmed 09/01/24] ascorbate calcium (vitamin C) 500 mg tablet 500 mg PO DAILY 02/19/24 [History Confirmed 09/01/24] carvedilol 12.5 mg tablet 6.25 mg PO BID 02/19/24 [History Confirmed 09/01/24] pantoprazole 40 mg tablet,delayed release 40 mg PO DAILY 30 days #30 tabs 02/19/24 [Rx Confirmed 09/01/24] sacubitril 49 mg-valsartan 51 mg tablet (Entresto) 1 tab PO BID 02/19/24 [History Confirmed 09/01/24] acetaminophen 325 mg capsule 650 mg PO Q4-6H PRN fever or pain 09/01/24 [History Confirmed 09/01/24] loperamide 2 mg capsule 2 mg PO Q4-6H PRN loose stool 09/01/24 [History Confirmed 09/01/24] magnesium hydroxide 400 mg/5 mL oral suspension (Dulcolax (magnesium hydroxide))30 ml PO DAILY PRN constipation 09/01/24 [History Confirmed 09/01/24] melatonin 3 mg capsule 1 mg PO QHS 09/01/24 [History Confirmed 09/01/24] ondansetron 4 mg disintegrating tablet 4 mg translingual Q4HR PRN nausea and vomiting 09/01/24 [History Confirmed 09/01/24] oxycodone-acetaminophen 5 mg-300 mg tablet 1 tab PO Q4-6H PRN pain 09/01/24 [History Confirmed 09/01/24] sennosides 8.6 mg capsule (senna) 8.6 mg PO BID 09/01/24 [History Confirmed 09/01/24] Exam Physical Exam Vital Signs: Temp Pulse Resp BP Pulse Ox O2 Del Method 98.0 F 60 18 122/58 L 99 Room Air 09/01/24 15:33 09/01/24 18:32 09/01/24 18:32 09/01/24 18:32 09/01/24 18:32 09/01/24 18:32 Narrative: General: Awake alert, no acute distress HEENT: head atraumatic, normocephalic, moist mucous membranes Neck: supple no masses, no lymphadenopathy CVS: regular rate and rhythm, no murmurs or gallops Respiratory: clear to auscultation bilaterally, no wheezing or crackles, symmetric expansion GI: soft, nondistended, nontender, positive bowel sounds with no organomegaly Extremity: moves all extremities, no restrictions of movements, no calf tenderness, no edema, possible cogwheel rigidity on the left arm Neuro: AOx3, CN II-VII intact. Moves all extremities in all planes of motion. Skin: dry, intact no rashes or lesions Chest: Numerous scars from AICD incision on left side, 1 scar on the right. Results - Hospitalist H&P Lab Results Labs: Laboratory Last Values Corrected WBC 7.5 X10E3/uL (4.1-10.5) 09/01/24 17:07 Uncorrected WBC Count 7.5 x10E3/uL (4.1-10.5) 09/01/24 17:07 RBC 3.63 x10E6/uL (3.90-5.60) L 09/01/24 17:07 Hgb 12.4 g/dL (13.0-17.0) L 09/01/24 17:07 Hct 36.6 % (38.8-50.0) L 09/01/24 17:07 MCV 100.9 fl (83.5-101) 09/01/24 17:07 MCH 34.2 pg (27.5-35.2) 09/01/24 17:07 MCHC 33.9 g/dL (32.5-35.6) 09/01/24 17:07 RDW 16.5 % (12.0-14.8) H 09/01/24 17:07 Plt Count 208 x10E3/uL (150-450) 09/01/24 17:07 MPV 10.3 fl (6.6-10.1) H 09/01/24 17:07 Neut % (Auto) 74.2 % (.) 09/01/24 17:07 Lymph % (Auto) 10.3 % (.) 09/01/24 17:07 Rush % (Auto) 13.0 % (.) 09/01/24 17:07 Eos % (Auto) 1.9 % (.) 09/01/24 17:07 Baso % (Auto) 0.6 % (.) 09/01/24 17:07 Nucleat RBC Rel Count 0.0 /100 WBC (0-0.5) 09/01/24 17:07 Neut # (Auto) 5.6 x10E3/uL (1.8-7.7) 09/01/24 17:07 Lymph # (Auto) 0.8 x10E3/uL (1.00-4.8) L 09/01/24 17:07 Rush # (Auto) 1.0 x10E3/uL (0.0-0.8) H 09/01/24 17:07 Eos # (Auto) 0.1 x10E3/uL (0.0-0.45) 09/01/24 17:07 Baso # (Auto) 0.0 x10E3/uL (0.0-0.2) 09/01/24 17:07 Monocyte Dist Width 18.73 % (0.00-20.00) 09/01/24 17:07 PT 12.6 Seconds (9.0-12.9) 09/01/24 17:07 INR 1.1 09/01/24 17:07 PHA Creatinine Clear 50.29 09/01/24 17:07 Sodium 139 mmol/L (136-145) 09/01/24 17:07 Potassium 3.5 mmol/L (3.5-5.1) 09/01/24 17:07 Chloride 105 mmol/L (98-107) 09/01/24 17:07 Carbon Dioxide 24.3 mmol/L (21.0-31.0) 09/01/24 17:07 Anion Gap 13.2 mEq/L (6.0-15.0) 09/01/24 17:07 BUN 16 mg/dL (7-25) 09/01/24 17:07 Creatinine 1.25 mg/dL (0.70-1.30) 09/01/24 17:07 Est GFR (CKD-EPI) 58.940 mL/Min 09/01/24 17:07 Glucose 101 mg/dL (70-100) H 09/01/24 17:07 Calcium 8.3 mg/dL (8.6-10.3) L 09/01/24 17:07 Magnesium 1.8 mg/dL (1.9-2.7) L 09/01/24 17:07 Total Bilirubin 0.8 mg/dl (0.3-1.0) 09/01/24 17:07 AST 33 U/L (13-39) 09/01/24 17:07 ALT 34 U/L (7-52) 09/01/24 17:07 Alkaline Phosphatase 70 U/L (34-104) 09/01/24 17:07 Troponin I High Sens 11 ng/L (0-20) 09/01/24 17:07 Total Protein 6.2 gm/dL (6.4-8.9) L 09/01/24 17:07 Albumin 3.6 gm/dL (3.5-5.7) 09/01/24 17:07 Globulin 2.6 gm/dL 09/01/24 17:07 Albumin/Globulin Ratio 1.4 09/01/24 17:07 Urine Color Light-yellow (Yellow) 09/01/24 17:07 Urine Appearance Clear (Clear) 09/01/24 17:07 Urine pH 6.0 (5.0-9.0) 09/01/24 17:07 Ur Specific [place] 1.011 (1.001-1.030) 09/01/24 17:07 Urine Protein Negative mg/dL (Negative) 09/01/24 17:07 Urine Glucose (UA) >=1000 mg/dL (Normal) H 09/01/24 17:07 Urine Ketones Negative (Negative) 09/01/24 17:07 Urine Occult Blood Negative (Negative) 09/01/24 17:07 Urine Nitrite Negative (Negative) 09/01/24 17:07 Urine Bilirubin Negative (Negative) 09/01/24 17:07 Urine Urobilinogen Normal mg/dL (Normal) 09/01/24 17:07 Ur Leukocyte Esterase Negative (Negative) 09/01/24 17:07 COVID-19 Clin Com Not detected (Not Detecte) 09/01/24 17:07 Microbiology Results Micro: Microbiology - Results from entire visit 09/01/24 17:07 Nasopharyngeal Respiratory Panel (PCR) - Final Assessment & Plan Assessment/Plan (1) Generalized weakness: Plan: ? Admit, observation ? Workup in emergency room revealed no organic or reversible causes ? Will check TSH, vitamin B12, folic acid, and vitamin D levels in the morning ? PT OT consulted ? On exam there was evidence of cogwheel rigidity on the left upper extremity, patient is concerned that he developed Parkinson's as he says he is having difficulty feeding himself secondary to tremors. Will consult neurology for this. (2) Inability to walk: Plan: See above (3) Ischemic cardiomyopathy: Plan: Stable, not in exacerbation (4) Chronic HFrEF (heart failure with reduced ejection fraction): Plan: Stable, continue home medications. Patient is on appropriate medical therapy for this. Plan ? DVT prophylaxis addressed ? Regular diet ? Full code IP vs OBS Justification Based on differential dx, clinical care plan, and risk of adverse events, if untreated, in my clinical judgement this patient requires an acute care setting as: OBSERVATION because of an expectation of an under 2 midnight stay. Estimated length of stay (# of days): 2 Documented By: Tani Solano DO 09/01/241953 Signed By: <Electronically signed by Tani Solano DO> 09/01/242002 [facility] Work Phone: 1(605) 610-237701-30-2025 Chief complaint+Reason for visit Narrative * Chief Complaint Admit Date Evaluation September 01, 2024 6 :13pm Reason for Visit Admit Date Chronic HFrEF (heart failure with reduced ejection fraction) September 01, 2024 6:13pm Generalized weakness September 01, 2024 6:13pm Inability to walk September 01, 2024 6 :13pm Ischemic cardiomyopathy September 01 6:13[facility] Work Phone: 1(967) 128-313801-30-2025 Evaluation note* Diagnosis Onset Date Resolution Status Admit Date Chronic HFrEF (heart failure with reduced ejection fraction) acute September 01, 2024 6:13pm Generalized weakness acute Ozzy honorio 2024 6:13pm Inability to walk acute September 01, 2024 6:13pm Ischemic cardiomyopathy acute J anuary 2024 6:13pm [facility] Work Phone: 1(366) 476-941101-30-2025 [place] [address] Hospitalist H&P Signed Patient: Shawna Hernandes MR#: [id number] : 1945 Acct:[id number] Age/Sex: 79 / M Adm Date: 5 Loc: Room: [address] [place] [address] Type: ADM INOo Attending Dr: Tani Solano DO Copies to: DO Tani Suárez, ~ HPI DATE OF EXAMINATION: 09/01/24 CHIEF COMPLAINT: weakness HISTORY OF PRESENT ILLNESS: Mr Hernandes is a 79-year-old male with a past medical history notable for prior traumatic brain injury, CHF with reduced ejection fraction, hypertension, hyperlipidemia and history of myocardial infarction who presents with a chief complaint of weakness at home. The patient recently had a prolonged hospitalization for cholecystitis, he was transferred from here to [facility] due to his ejection fraction being 15%. At [facility] he underwentan open cholecystectomy and this was in May 2024, after which he was discharged to a assisted facility for physical occupational therapy. He states he was doing quite well with facility with his rehab, he was able to walkthe entire length of the hallway with his walker and he was subsequently discharged home for for continuationof outpatient therapy with home health. Hewas home for about 10 days and the therapist was not scheduled currently feels no tomorrow, he experienced 2 falls recently and that pending., He feels he has gotten significantly weaker since being discharged from the assisted facility as he has not had any formal therapy for the past 10 days. He denies hitting his head when he fell, he denies any pain right now, his only complaint is weakness. He is tolerating food without difficulty, he is eating and drinking well, he is having normal bowel movements and urinating without difficulty. Review of Systems Review of Systems All other systems reviewed & are negative unless noted below or in HPI COUNTS INCLUDE 234 BEDS AT [facility] Medical History Defibrillator discharge TBI (traumatic brain injury) Neuropathy TIA (transient ischemic attack) Macular degeneration BPH (benign prostatic hyperplasia) Cardiomyopathy Hyperlipemia Hypertension CHF (congestive heart failure) History of myocardial infarction Surgical History Status post biventricular pacemaker History of vasectomy History of phacoemulsification of cataract of both eyes with intraocular lens implantation History of tonsillectomy History of cystoscopy History of hernia surgery History of cardiac catheterization AICD (automatic cardioverter/defibrillator) present Family History Father Myocardial infarction Mother Hypertension Brother History of heart surgery Brother Heart disease Sister Hypertension Thyroid disease Sister Hypertension Thyroid disease Brother Hypertension Legacy FamHx Relation: Brother(s) Heart disease Legacy FamHx Relation: Brother(s) Father Heart disease 50 yrs Mother 89 yrs Sister Hypertension Heart disease Social History Smoking Status: Former smoker Tobacco Type: cigarettes Substance Use Type: None Substance Abuse Comment: rarely Social History Comments: He admits that he did smoke but it was 50 years ago andat that time he only smoked for 3 years and it was a pipe only and that he did not inhale. Rarely drank any alcohol. Meds Medications and Allergies Allergies No Known Allergies Allergy (Verified 09/01/24 15:35) Home Medications aspirin 81 mg tablet,delayed release 81 mg PO QAM 11/15/17 [History Confirmed 09/01/24] bumetanide 1 mg tablet 1 mg PO QAM 11/15/17 [History Confirmed 09/01/24] nitroglycerin 0.4 mg sublingual tablet (Nitrostat) 0.4 mg sublingual DIRECTEDPRN Chest Pain 11/15/17 [History Confirmed 09/01/24] biotin 5 mg capsule 5 mg PO QAM 09/02/19 [History Confirmed 09/01/24] vit A 300 mcg-C 200 mg-E 27 mg-lutein 2 mg and minerals tablet (Eye Health Plus Lutein) 1 tab PO QAM 09/02/19 [History Confirmed 09/01/24] vitamin B complex 1 cap PO QAM 09/02/19 [History Confirmed 09/01/24] atorvastatin 80 mg tablet 80 mg PO QPM 08/13/22 [History Confirmed 09/01/24] clopidogrel 75 mg tablet 75 mg PO QAM 08/13/22 [History Confirmed 09/01/24] levothyroxine 50 mcg tablet 50 mcg PO QAM 08/13/22 [History Confirmed 09/01/24] empagliflozin 10 mg tablet (Jardiance) 10 mg PO DAILY 11/21/22 [History Confirmed 09/01/24] spironolactone 25 mg tablet 25 mg PO QAM 30 days #30 tabs 11/25/22 [Rx Confirmed 09/01/24] amiodarone 100 mg tablet 200 mg PO QAM 04/17/23 [History Confirmed 09/01/24] mexiletine 150 mg capsule 150 mg PO TID 04/17/23 [History Confirmed 09/01/24] ascorbate calcium (vitamin C) 500 mg tablet 500 mg PO DAILY 02/19/24 [History Confirmed 09/01/24] carvedilol 12.5 mg tablet 6.25 mg PO BID 02/19/24 [History Confirmed 09/01/24] pantoprazole 40 mg tablet,delayed release 40 mg PO DAILY 30 days #30 tabs 02/19/24 [Rx Confirmed 09/01/24] sacubitril 49 mg-valsartan 51 mg tablet (Entresto) 1 tab PO BID 02/19/24 [History Confirmed 09/01/24] acetaminophen 325 mg capsule 650 mg PO Q4-6H PRN fever or pain 09/01/24 [History Confirmed 09/01/24] loperamide 2 mg capsule 2 mg PO Q4-6H PRN loose stool 09/01/24 [History Confirmed 09/01/24] magnesium hydroxide 400 mg/5 mL oral suspension (Dulcolax (magnesium hydroxide))30 ml PO DAILY PRN constipation 09/01/24 [History Confirmed 09/01/24] melatonin 3 mg capsule 1 mg PO QHS 09/01/24 [History Confirmed 09/01/24] ondansetron 4 mg disintegrating tablet 4 mg translingual Q4HR PRN nausea and vomiting 09/01/24 [History Confirmed 09/01/24] oxycodone-acetaminophen 5 mg-300 mg tablet 1 tab PO Q4-6H PRN pain 09/01/24 [History Confirmed 09/01/24] sennosides 8.6 mg capsule (senna) 8.6 mg PO BID 09/01/24 [History Confirmed 09/01/24] Exam Physical Exam Vital Signs: Temp Pulse Resp BP Pulse Ox O2 Del Method 98.0 F 60 18 122/58 L 99 Room Air 09/01/24 15:33 09/01/24 18:32 09/01/24 18:32 09/01/24 18:32 09/01/24 18:32 09/01/24 18:32 Narrative: General: Awake alert, no acute distress HEENT: head atraumatic, normocephalic, moist mucous membranes Neck: supple no masses, no lymphadenopathy CVS: regular rate and rhythm, no murmurs or gallops Respiratory: clear to auscultation bilaterally, no wheezing or crackles, symmetric expansion GI: soft, nondistended, nontender, positive bowel sounds with no organomegaly Extremity: moves all extremities, no restrictions of movements, no calf tenderness, no edema, possible cogwheel rigidity on the left arm Neuro: AOx3, CN II-VII intact. Moves all extremities in all planes of motion. Skin: dry, intact no rashes or lesions Chest: Numerous scars from AICD incision on left side, 1 scar on the right. Results - Hospitalist H&P Lab Results Labs: Laboratory Last Values Corrected WBC 7.5 X10E3/uL (4.1-10.5) 09/01/24 17:07 Uncorrected WBC Count 7.5 x10E3/uL (4.1-10.5) 09/01/24 17:07 RBC 3.63 x10E6/uL (3.90-5.60) L 09/01/24 17:07 Hgb 12.4 g/dL (13.0-17.0) L 09/01/24 17:07 Hct 36.6 % (38.8-50.0) L 09/01/24 17:07 MCV 100.9 fl (83.5-101) 09/01/24 17:07 MCH 34.2 pg (27.5-35.2) 09/01/24 17:07 MCHC 33.9 g/dL (32.5-35.6) 09/01/24 17:07 RDW 16.5 % (12.0-14.8) H 09/01/24 17:07 Plt Count 208 x10E3/uL (150-450) 09/01/24 17:07 MPV 10.3 fl (6.6-10.1) H 09/01/24 17:07 Neut % (Auto) 74.2 % (.) 09/01/24 17:07 Lymph % (Auto) 10.3 % (.) 09/01/24 17:07 Rush % (Auto) 13.0 % (.) 09/01/24 17:07 Eos % (Auto) 1.9 % (.) 09/01/24 17:07 Baso % (Auto) 0.6 % (.) 09/01/24 17:07 Nucleat RBC Rel Count 0.0 /100 WBC (0-0.5) 09/01/24 17:07 Neut # (Auto) 5.6 x10E3/uL (1.8-7.7) 09/01/24 17:07 Lymph # (Auto) 0.8 x10E3/uL (1.00-4.8) L 09/01/24 17:07 Rush # (Auto) 1.0 x10E3/uL (0.0-0.8) H 09/01/24 17:07 Eos # (Auto) 0.1 x10E3/uL (0.0-0.45) 09/01/24 17:07 Baso # (Auto) 0.0 x10E3/uL (0.0-0.2) 09/01/24 17:07 Monocyte Dist Width 18.73 % (0.00-20.00) 09/01/24 17:07 PT 12.6 Seconds (9.0-12.9) 09/01/24 17:07 INR 1.1 09/01/24 17:07 PHA Creatinine Clear 50.29 09/01/24 17:07 Sodium 139 mmol/L (136-145) 09/01/24 17:07 Potassium 3.5 mmol/L (3.5-5.1) 09/01/24 17:07 Chloride 105 mmol/L (98-107) 09/01/24 17:07 Carbon Dioxide 24.3 mmol/L (21.0-31.0) 09/01/24 17:07 Anion Gap 13.2 mEq/L (6.0-15.0) 09/01/24 17:07 BUN 16 mg/dL (7-25) 09/01/24 17:07 Creatinine 1.25 mg/dL (0.70-1.30) 09/01/24 17:07 Est GFR (CKD-EPI) 58.940 mL/Min 09/01/24 17:07 Glucose 101 mg/dL (70-100) H 09/01/24 17:07 Calcium 8.3 mg/dL (8.6-10.3) L 09/01/24 17:07 Magnesium 1.8 mg/dL (1.9-2.7) L 09/01/24 17:07 Total Bilirubin 0.8 mg/dl (0.3-1.0) 09/01/24 17:07 AST 33 U/L (13-39) 09/01/24 17:07 ALT 34 U/L (7-52) 09/01/24 17:07 Alkaline Phosphatase 70 U/L (34-104) 09/01/24 17:07 Troponin I High Sens 11 ng/L (0-20) 09/01/24 17:07 Total Protein 6.2 gm/dL (6.4-8.9) L 09/01/24 17:07 Albumin 3.6 gm/dL (3.5-5.7) 09/01/24 17:07 Globulin 2.6 gm/dL 09/01/24 17:07 Albumin/Globulin Ratio 1.4 09/01/24 17:07 Urine Color Light-yellow (Yellow) 09/01/24 17:07 Urine Appearance Clear (Clear) 09/01/24 17:07 Urine pH 6.0 (5.0-9.0) 09/01/24 17:07 Ur Specific [place] 1.011 (1.001-1.030) 09/01/24 17:07 Urine Protein Negative mg/dL (Negative) 09/01/24 17:07 Urine Glucose (UA) >=1000 mg/dL (Normal) H 09/01/24 17:07 Urine Ketones Negative (Negative) 09/01/24 17:07 Urine Occult Blood Negative (Negative) 09/01/24 17:07 Urine Nitrite Negative (Negative) 09/01/24 17:07 Urine Bilirubin Negative (Negative) 09/01/24 17:07 Urine Urobilinogen Normal mg/dL (Normal) 09/01/24 17:07 Ur Leukocyte Esterase Negative (Negative) 09/01/24 17:07 COVID-19 Clin Com Not detected (Not Detecte) 09/01/24 17:07 Microbiology Results Micro: Microbiology - Results from entire visit 09/01/24 17:07 Nasopharyngeal Respiratory Panel (PCR) - Final Assessment & Plan Assessment/Plan (1) Generalized weakness: Plan: ? Admit, observation ? Workup in emergency room revealed no organic or reversible causes ? Will check TSH, vitamin B12, folic acid, and vitamin D levels in the morning ? PT OT consulted ? On exam there was evidence of cogwheel rigidity on the left upper extremity, patient is concernedthat he developed Parkinson's as he says he is having difficulty feeding himself secondary to tremors. Will consult neurology for this. (2) Inability to walk: Plan: See above (3) Ischemic cardiomyopathy: Plan: Stable, not in exacerbation (4) Chronic HFrEF (heart failure with reduced ejection fraction): Plan: Stable, continue home medications. Patient is on appropriate medical therapy for this. Plan ? DVT prophylaxis addressed ? Regular diet ? Full code IP vs OBS Justification Based on differential dx, clinical care plan, and risk of adverse events, if untreated, in my clinical judgement this patient requires an acute care setting as: OBSERVATION because of an expectation of an under 2 midnight stay. Estimated length of stay (# of days): 2 Documented By: Tani Solano DO 09/01/241953 Signed By: 09/01/242002 [facility]01-30-2025 Radiology Diagnostic study note [facility] Main [place] [address] [place] [address] CT Scan Report Signed Patient: Shawna Hernandes MR#: [id number] : 1945 Acct:[id number] Age/Sex: 79 / M ADM Date: 5 Loc: ER Room: Type: [facility] ER Attending Dr: Copies to: Pino Rand DO~ Ordering Provider: Pino D Rand, DO Date of Service: 09/01/24 CT/CT abdomen pelvis w con: pain CT Abdomen and Pelvis withcontrast TECHNIQUE: Axial imaging with 2-D reconstruction.90 cc of Isovue-300. The CT exam was performed using one or more the following dose reduction techniques: Automated exposure control, adjustment of the MA and/or Kv according to patient size, or use of the iterative reconstruction technique. COMPARISON: 03/16/2024 History: Increased weakness. Recent gallbladder removal LIMITATIONS: None LOWER THORAX Unremarkable LIVER: Unremarkable GALLBLADDER: Cholecystectomy clips identified. Fatty stranding in the gallbladder fossa consistent with recent surgery. No fluid collections or free air. BILE DUCTS: No dilatation SPLEEN: Unremarkable PANCREAS: Unremarkable ADRENAL GLANDS: Unremarkable KIDNEYS:Unremarkable AORTA: No abdominal aortic aneurysm identified. RETROPERITONEUM: No significant retroperitoneal abnormalities identified. MESENTERY:Unremarkable SMALL BOWEL: The small bowel loops are nondistended. APPENDIX: The appendix is normal. COLON: Colonic diverticulosis. URINARY BLADDER: Urinary bladder is unremarkable. REPRODUCTIVE SYSTEM: Reproductive structures are unremarkable. PNEUMOPERITONEUM: None PERITONEAL FLUID:None BONY STRUCTURES: Lumbar degeneration ABDOMINAL WALL: Focal fatty stranding in the right gluteal region. Consider contusion. CT/CT abdomen pelvis w con IMPRESSION: Recent cholecystectomy changes. No developing fluid collection. Nopneumoperitoneum. No acute abdominal or pelvic findings. Right gluteal subcutaneous stranding. Consider contusion. No hematoma. Impression dictated by: Rashaun Shin M.D.09/01/2024 6:50 PM Dictation Location: [place] [address] Transcribed By: [facility] 09/01/241849 Dictated By: Rashaun Shin DO 09/01/24 1841 Signed By: 09/01/241849 [facility]01-30-2025 Radiology Diagnostic study note [facility] Main [place] [address] [place] [address] CT Scan Report Signed Patient: Shawna Hernandes MR#: [id number] : 1945 Acct:[id number] Age/Sex: 79 / M ADM Date: 5 Loc: ER Room: Type: [facility] ER Attending Dr: Copies to: Pino Rand DO~ Ordering Provider: Pino Rand DO Date of Service: 09/01/24 CT/CT head/brain wo con: weakness Unenhanced head CT TECHNIQUE: Contiguous axial imaging of the head. The CT exam was performed usingone or more the following dose reduction techniques: Automated exposure control,adjustment of the MA and/or Kv according to patient size, or use of the iterative reconstruction technique. COMPARISON: 02/08/2024 HISTORY: Increased weakness. VENTRICLES: Within normal limits ATROPHY: Similar mild diffuse atrophy BRAIN PARENCHYMA: Decreased density of the white matter is most consistent withchronic small vesseldisease. HEMORRHAGE: None HERNIATION: No mass effect or herniation INFARCTION: No recent vascular distribution infarction is seen. EXTRA-AXIAL FLUID COLLECTIONS None MIDBRAIN: Unremarkable DEVIKA: Unremarkable MEDULLA: Unremarkable SINUSES: Unremarkable ORBITS: Grossly unremarkable MASTOIDS: Unremarkable BONY STRUCTURES Intact ADDITIONAL FINDINGS: CT/CT head/brain wo con IMPRESSION: No acute findings. Impression dictated by: Rashaun Shin M.D.09/01/2024 6:41 PM Dictation Location: [place] [address] Transcribed By: [facility] 09/01/241840 Dictated By: Rashaun Shin DO 09/01/24 183 Signed By: 09/01/241840 [facility]01-30-2025 History and physical note Author Tani Solano [facility] Note Date/Time September 01, 2024 8 :03pm [facility] [address] [place] [address] Hospitalist H&P Signed Patient: Shawna Hernandes MR#: [id number] : 1945 Acct:[id number] Age/Sex: 79 / M Adm Date: 5 Loc: Room: [address] [place] [address] Type: ADM INOo Attending Dr: Tani Solano DO Copies to: DO Tani Suárez DO~ HPI DATE OF EXAMINATION: 09/01/24 CHIEF COMPLAINT: weakness HISTORY OF PRESENT ILLNESS: Mr Hernandes is a 79-year-old male with a past medical history notable for prior traumatic brain injury, CHF with reduced ejection fraction, hypertension, hyperlipidemia and history of myocardial infarction who presents with a chief complaint of weakness at home. The patient recently had a prolonged hospitalization for cholecystitis, he was transferred from here to [facility] due to his ejection fraction being 15%. At [facility] he underwentan open cholecystectomy and this was in May 2024, after which he was discharged to a assisted facility for physical occupational therapy. He states he was doing quite well with facility with his rehab, he was able to walkthe entire length of the hallway with his walker and he was subsequently discharged home for for continuation of outpatient therapy with home health. Hewas home for about 10 days and the therapist was not scheduled currently feels no tomorrow, he experienced 2 falls recently and that pending., He feels he hasgotten significantly weaker since being discharged from the assisted facility as he has not had any formal therapy for the past 10 days. He denies hitting his head when he fell, he denies any pain right now, his only complaint is weakness. He is tolerating food without difficulty, he is eating and drinking well, he is having normal bowel movements and urinating without difficulty. Review of Systems Review of Systems All other systems reviewed & are negative unless noted below or in HPI COUNTS INCLUDE 234 BEDS AT THE [facility] Medical History Defibrillator discharge TBI (traumatic brain injury) Neuropathy TIA (transient ischemic attack) Macular degeneration BPH (benign prostatic hyperplasia) Cardiomyopathy Hyperlipemia Hypertension CHF (congestive heart failure) History of myocardial infarction Surgical History Status post biventricular pacemaker History of vasectomy History of phacoemulsification of cataract of both eyes with intraocular lens implantation History of tonsillectomy History of cystoscopy History of hernia surgery History of cardiac catheterization AICD (automatic cardioverter/defibrillator) present Family History Father Myocardial infarction Mother Hypertension Brother History of heart surgery Brother Heart disease Sister Hypertension Thyroid disease Sister Hypertension Thyroid disease Brother Hypertension Legacy FamHx Relation: Brother(s) Heart disease Legacy FamHx Relation: Brother(s) Father Heart disease 50 yrs Mother 89 yrs Sister Hypertension Heart disease Social History Smoking Status: Former smoker Tobacco Type: cigarettes Substance Use Type: None Substance Abuse Comment: rarely Social History Comments: He admits that he did smoke but it was 50 years ago andat that time he only smoked for 3 years and it was a pipe only and that he did not inhale. Rarely drank any alcohol. Meds Medications and Allergies Allergies No Known Allergies Allergy (Verified 09/01/24 15:35) Home Medications aspirin 81 mg tablet,delayed release 81 mg PO QAM 11/15/17 [History Confirmed 09/01/24] bumetanide 1 mg tablet 1 mg PO QAM 11/15/17 [History Confirmed 09/01/24] nitroglycerin 0.4 mg sublingual tablet (Nitrostat) 0.4 mg sublingual DIRECTEDPRN Chest Pain 11/15/17 [History Confirmed 09/01/24] biotin 5 mg capsule 5 mg PO QAM 09/02/19 [History Confirmed 09/01/24] vit A 300 mcg-C 200 mg-E 27 mg-lutein 2 mg and minerals tablet (Eye Health Plus Lutein) 1 tab PO QAM 09/02/19 [History Confirmed 09/01/24] vitamin B complex 1 cap PO QAM 09/02/19 [History Confirmed 09/01/24] atorvastatin 80 mg tablet 80 mg PO QPM 08/13/22 [History Confirmed 09/01/24] clopidogrel 75 mg tablet 75 mg PO QAM 08/13/22 [History Confirmed 09/01/24] levothyroxine 50 mcg tablet 50 mcg PO QAM 08/13/22 [History Confirmed 09/01/24] empagliflozin 10 mg tablet (Jardiance) 10 mg PO DAILY 11/21/22 [History Confirmed 09/01/24] spironolactone 25 mg tablet 25 mg PO QAM 30 days #30 tabs 11/25/22 [Rx Confirmed 09/01/24] amiodarone 100 mg tablet 200 mg PO QAM 04/17/23 [History Confirmed 09/01/24] mexiletine 150 mg capsule 150 mg PO TID 04/17/23 [History Confirmed 09/01/24] ascorbate calcium (vitamin C) 500 mg tablet 500 mg PO DAILY 02/19/24 [History Confirmed 09/01/24] carvedilol 12.5 mg tablet 6.25 mg PO BID 02/19/24 [History Confirmed 09/01/24] pantoprazole 40 mg tablet,delayed release 40 mg PO DAILY 30 days #30 tabs 02/19/24 [Rx Confirmed 09/01/24] sacubitril 49 mg-valsartan 51 mg tablet (Entresto) 1 tab PO BID 02/19/24 [History Confirmed 09/01/24] acetaminophen 325 mg capsule 650 mg PO Q4-6H PRN fever or pain 09/01/24 [History Confirmed 09/01/24] loperamide 2 mg capsule 2 mg PO Q4-6H PRN loose stool 09/01/24 [History Confirmed 09/01/24] magnesium hydroxide 400 mg/5 mL oral suspension (Dulcolax (magnesium hydroxide))30 ml PO DAILY PRN constipation 09/01/24 [History Confirmed 09/01/24] melatonin 3 mg capsule 1 mg PO QHS 09/01/24 [History Confirmed 09/01/24] ondansetron 4 mg disintegrating tablet 4 mg translingual Q4HR PRN nausea and vomiting 09/01/24 [History Confirmed 09/01/24] oxycodone-acetaminophen 5 mg-300 mg tablet 1 tab PO Q4-6H PRN pain 09/01/24 [History Confirmed 09/01/24] sennosides 8.6 mg capsule (senna) 8.6 mg PO BID 09/01/24 [History Confirmed 09/01/24] Exam Physical Exam Vital Signs: Temp Pulse Resp BP Pulse Ox O2 Del Method 98.0 F 60 18 122/58 L 99 Room Air 09/01/24 15:33 09/01/24 18:32 09/01/24 18:32 09/01/24 18:32 09/01/24 18:32 09/01/24 18:32 Narrative: General: Awake alert, no acute distress HEENT: head atraumatic, normocephalic, moist mucous membranes Neck: supple no masses, no lymphadenopathy CVS: regular rate and rhythm, no murmurs or gallops Respiratory: clear to auscultation bilaterally, no wheezing or crackles, symmetric expansion GI: soft, nondistended, nontender, positive bowel sounds with no organomegaly Extremity: moves all extremities, no restrictions of movements, no calf tenderness, no edema, possible cogwheel rigidity on the left arm Neuro: AOx3, CN II-VII intact. Moves all extremities in all planes of motion. Skin: dry, intact no rashes or lesions Chest: Numerous scars from AICD incision on left side, 1 scar on the right. Results - Hospitalist H&P Lab Results Labs: Laboratory Last Values Corrected WBC 7.5 X10E3/uL (4.1-10.5) 09/01/24 17:07 Uncorrected WBC Count 7.5 x10E3/uL (4.1-10.5) 09/01/24 17:07 RBC 3.63 x10E6/uL (3.90-5.60) L 09/01/24 17:07 Hgb 12.4 g/dL (13.0-17.0) L 09/01/24 17:07 Hct 36.6 % (38.8-50.0) L 09/01/24 17:07 MCV 100.9 fl (83.5-101) 09/01/24 17:07 MCH 34.2 pg (27.5-35.2) 09/01/24 17:07 MCHC 33.9 g/dL (32.5-35.6) 09/01/24 17:07 RDW 16.5 % (12.0-14.8) H 09/01/24 17:07 Plt Count 208 x10E3/uL (150-450) 09/01/24 17:07 MPV 10.3 fl (6.6-10.1) H 09/01/24 17:07 Neut % (Auto) 74.2 % (.) 09/01/24 17:07 Lymph % (Auto) 10.3 % (.) 09/01/24 17:07 Rush % (Auto) 13.0 % (.) 09/01/24 17:07 Eos % (Auto) 1.9 % (.) 09/01/24 17:07 Baso % (Auto) 0.6 % (.) 09/01/24 17:07 Nucleat RBC Rel Count 0.0 /100 WBC (0-0.5) 09/01/24 17:07 Neut # (Auto) 5.6 x10E3/uL (1.8-7.7) 09/01/24 17:07 Lymph # (Auto) 0.8 x10E3/uL (1.00-4.8) L 09/01/24 17:07 Rush # (Auto) 1.0 x10E3/uL (0.0-0.8) H 09/01/24 17:07 Eos # (Auto) 0.1 x10E3/uL (0.0-0.45) 09/01/24 17:07 Baso # (Auto) 0.0 x10E3/uL (0.0-0.2) 09/01/24 17:07 Monocyte Dist Width 18.73 % (0.00-20.00) 09/01/24 17:07 PT 12.6 Seconds (9.0-12.9) 09/01/24 17:07 INR 1.1 09/01/24 17:07 PHA Creatinine Clear 50.29 09/01/24 17:07 Sodium 139 mmol/L (136-145) 09/01/24 17:07 Potassium 3.5 mmol/L (3.5-5.1) 09/01/24 17:07 Chloride 105 mmol/L (98-107) 09/01/24 17:07 Carbon Dioxide 24.3 mmol/L (21.0-31.0) 09/01/24 17:07 Anion Gap 13.2 mEq/L (6.0-15.0) 09/01/24 17:07 BUN 16 mg/dL (7-25) 09/01/24 17:07 Creatinine 1.25 mg/dL (0.70-1.30) 09/01/24 17:07 Est GFR (CKD-EPI) 58.940 mL/Min 09/01/24 17:07 Glucose 101 mg/dL (70-100) H 09/01/24 17:07 Calcium 8.3 mg/dL (8.6-10.3) L 09/01/24 17:07 Magnesium 1.8 mg/dL (1.9-2.7) L 09/01/24 17:07 Total Bilirubin 0.8 mg/dl (0.3-1.0) 09/01/24 17:07 AST 33 U/L (13-39) 09/01/24 17:07 ALT 34 U/L (7-52) 09/01/24 17:07 Alkaline Phosphatase 70 U/L (34-104) 09/01/24 17:07 Troponin I High Sens 11 ng/L (0-20) 09/01/24 17:07 Total Protein 6.2 gm/dL (6.4-8.9) L 09/01/24 17:07 Albumin 3.6 gm/dL (3.5-5.7) 09/01/24 17:07 Globulin 2.6 gm/dL 09/01/24 17:07 Albumin/Globulin Ratio 1.4 09/01/24 17:07 Urine Color Light-yellow (Yellow) 09/01/24 17:07 Urine Appearance Clear (Clear) 09/01/24 17:07 Urine pH 6.0 (5.0-9.0) 09/01/24 17:07 Ur Specific [place] 1.011 (1.001-1.030) 09/01/24 17:07 Urine Protein Negative mg/dL (Negative) 09/01/24 17:07 Urine Glucose (UA) >=1000 mg/dL (Normal) H 09/01/24 17:07 Urine Ketones Negative (Negative) 09/01/24 17:07 Urine Occult Blood Negative (Negative) 09/01/24 17:07 Urine Nitrite Negative (Negative) 09/01/24 17:07 Urine Bilirubin Negative (Negative) 09/01/24 17:07 Urine Urobilinogen Normal mg/dL (Normal) 09/01/24 17:07 Ur Leukocyte Esterase Negative (Negative) 09/01/24 17:07 COVID-19 Clin Com Not detected (Not Detecte) 09/01/24 17:07 Microbiology Results Micro: Microbiology - Results from entire visit 09/01/24 17:07 Nasopharyngeal Respiratory Panel (PCR) - Final Assessment & Plan Assessment/Plan (1) Generalized weakness: Plan: ? Admit, observation ? Workup in emergency room revealed no organic or reversible causes ? Will check TSH, vitamin B12, folic acid, and vitamin D levels in the morning ? PT OT consulted ? On exam there was evidence of cogwheel rigidity on the left upper extremity, patient is concerned that he developed Parkinson's as he says he is having difficulty feeding himself secondary to tremors. Will consult neurology for this. (2) Inability to walk: Plan: See above (3) Ischemic cardiomyopathy: Plan: Stable, not in exacerbation (4) Chronic HFrEF (heart failure with reduced ejection fraction): Plan: Stable, continue home medications. Patient is on appropriate medical therapy for this. Plan ? DVT prophylaxis addressed ? Regular diet ? Full code IP vs OBS Justification Based on differential dx, clinical care plan, and risk of adverse events, if untreated, in my clinical judgement this patient requires an acute care setting as: OBSERVATION because of an expectation of an under 2 midnight stay. Estimated length of stay (# of days): 2 Documented By: Tani Solano DO 09/01/241953 Signed By: <Electronically signed by Tani Solano DO> 09/01/242002 [facility] Work Phone: [phone]) 500-903901-28-2025 Miscellaneous Notes* Telephone Encounter - Faith Booth - 08/30/2024 2:16 PM EST Patient called, he is finally home from the [facility] and needs a TCM, can we get him squeezed in somewhere? * Telephone Encounter - Agus Nation DO - 08/30/2024 2:16 PM EST How about tomorrow at noon? * Telephone Encounter - Faith Booth - 08/30/2024 2:16 PM EST You have a meeting at 1:00 tomorrow dont forget, is it still okay? * Telephone Encounter - Agus Nation DO - 08/30/2024 2:16 PM EST Probably. I should be done by 1 * Telephone Encounter - Faith Booth - 08/30/2024 2:16 PM EST [facility] Tele[facility] encounter Note* Telephone Encounter - Faith Booth - 08/30/2024 2:16 PM EST Patient called, he is finally home from the [facility] and needs a TCM, can we get him squeezed in somewhere? [facility] [place] [id number] Telephone encounter Note* Telephone Encounter - Agus Nation DO - 08/30/2024 2:16 PM EST How about tomorrow at noon? [facility] [place] [id number] Telephone encounter Note* Telephone Encounter - Faithgalileo Booth - 08/30/2024 2:16 PM EST You have a meeting at 1:00 tomorrow dont forget, is it still okay? [facility] [place] [id number] Telephone encounter Note* Telephone Encounter - Agus Nation DO - 08/30/2024 2:16 PM EST Probably. I should be done by 1 [facility] [place] [id number] Telephone encounter Note* Telephone Encounter - Faith Booth - 08/30/2024 2:16 PM EST [facility]uled [facility] [id number] History of Present illness Narrative* Ranjan Quiles MD - 08/15/2024 2:00 PM EST Subjective Shawna Hernandes is a 79 y.o. male Chief Complaint Follow-up HPI Patient is in the office with his for follow-up for the problems noted below. He is currently living at the [facility] after having open cholecystectomy at the [facility] in mid July 2024. He is recovering well, his weight is down several pounds due to his reduced appetite. He has had no AICD discharges and denies any orthopnea or PND but has lower extremity edema. His medical therapywas reviewed with him and his . Will increase Bumex up to 1 mg daily. Reviewing his labs from July 23, 2024 he remains with elevated transaminase. I will check his transaminase and basic metabolic profile and since potassium was on the lower side on recent testing will add spironolactone 12.5 mg daily and follow his renal function as well. Will also check his pacemaker function since the surgeons at the [facility] were questioning the function of the device. ASSESSMENT AND PLAN: 1. Ischemic cardiomyopathy stage C, functional class II. Ejection fraction 15- 20% by echocardiogramApr2022, cardiac catheterization March 2023 revealed severe three-vessel disease and medical therapy was recommended. He remains with mild lower extremity edema for which the Bumex will be increased up to 1 mg daily and will add spironolactone 12.5 mg daily and follow renal function closely 2. Automated implantable cardioverter defibrillator in place, AICD discharge happened today with noconsequences. He will be evaluated in the pacemaker clinic to assess device function 3. Hyperlipidemia, on statin therapy. Will continue to follow lipid profile 4. High-risk medications with amiodarone and mexiletine, which will be monitored closely. No toxicities 5. S/p cholecystectomy at the [facility] July 2024 with no complication 6. Remote history of atrial fibrillation with amiodarone now on board to reduce the chances of thisbecoming affective. 7. Overweight. Encouraged the patient to drop his weight further with diet and exercise. 8. Stage III chronic kidney disease being monitored, creatinine April 2024 1.2 mg/dL Review of Systems Neurological: Positive for dizziness and light-headedness. All other systems reviewed and are negative. EKG done in office today Vitals: 08/15/24 1358 BP: 118/50 BP Location: Left arm Patient Position: Sitting Pulse: 63 Weight: 82.5 kg (181 lb 12.8 oz) Height: 1.676 m (5' 6 ) Objective Physical Exam Constitutional: Appearance: Normal appearance. HENT: Nose: Nose normal. Neck: Vascular: No carotid bruit. Cardiovascular: Rate and Rhythm: Normal rate. Pulses: Normal pulses. Heart sounds: Normal heart sounds. Pulmonary: Effort: Pulmonary effort is normal. Abdominal: General: Bowel sounds are normal. Palpations: Abdomen is soft. Musculoskeletal: General: Normal range of motion. Cervical back: Normal range of motion. Right lower le+ Pitting Edema present. Left lower le+ Pitting Edema present. Skin: General: Skin is warm and dry. Neurological: General: No focal deficit present. Mental Status: He is alert. Psychiatric: Mood and Affect: Mood normal. Behavior: Behavior normal. Thought Content: Thought content normal. Judgment: Judgment normal. Allergies Patient has no known allergies. Current Medications Current Outpatient Medications: acetaminophen (Tylenol) 500 mg tablet, Take by mouth every 6 hours if needed for mild pain (1 - 3)., Disp: , Rfl: amiodarone (Pacerone) 200 mg tablet, take 1 tablet by mouth daily, Disp: 90 tablet, Rfl: 1 aspirin 81 mg EC tablet, Take 1 tablet (81 mg) by mouth once daily., Disp: , Rfl: atorvastatin (Lipitor) 80 mg tablet, take 1 tablet by mouth daily, Disp: 90 tablet, Rfl: 3 carvedilol (Coreg) 6.25 mg tablet, Take 1 tablet (6.25 mg) by mouth 2 times a day., Disp: , Rfl: clopidogrel (Plavix) 75 mg tablet, Take 1 tablet (75 mg) by mouth once daily., Disp: 90 tablet, Rfl: 3 Jardiance 10 mg, Take 1 tablet (10 mg) by mouth once daily in the morning. Take before meals., Disp: , Rfl: levothyroxine (Synthroid, Levoxyl) 50 mcg tablet, Take 1 tablet (50 mcg) by mouth once daily. as directed, Disp: 90 tablet, Rfl: 1 loperamide (Imodium) 2 mg capsule, Take 1 capsule (2 mg) by mouth 4 times a day as needed for diarrhea., Disp: , Rfl: magnesium oxide (Mag-Ox) 400 mg (241.3 mg magnesium) tablet, Take 1 tablet (400 mg) by mouth once daily. Take with food., Disp: 90 tablet, Rfl: 3 melatonin 1 mg tablet,chewable, Chew., Disp: , Rfl: mexiletine (Mexitil) 150 mg capsule, Take 1 capsule (150 mg) by mouth 3 times a day., Disp: 270 capsule, Rfl: 3 nitroglycerin (Nitrostat) 0.4 mg SL tablet, Place 1 tablet (0.4 mg) under the tongue every 5 minutes if needed for chest pain., Disp: , Rfl: ondansetron (Zofran) 4 mg tablet, Take 1 tablet (4 mg) by mouth every 8 hours if needed for nausea or vomiting., Disp: , Rfl: oxyCODONE (Oxy-IR) 5 mg immediate release capsule, Take 1 capsule (5 mg) by mouth every 4 hours if needed for severe pain (7 - 10)., Disp: , Rfl: pantoprazole (ProtoNix) 40 mg EC tablet, Take 1 tablet (40 mg) by mouth once daily in the morning. Take before meals. Do not crush, chew, or split., Disp: , Rfl: sacubitriL-valsartan (Entresto) 24-26 mg tablet, Take 1 tablet by mouth 2 times a day., Disp: , Rfl: bumetanide (Bumex) 1 mg tablet, Take 1 tablet (1 mg) by mouth once daily., Disp: , Rfl: spironolactone (Aldactone) 25 mg tablet, Take 0.5 tablets (12.5 mg) by mouth once daily., Disp: , Rfl: Assessment/Plan 1. Paroxysmal atrial fibrillation (Multi) Follow Up In Cardiology ECG 12 Lead Aspartate Aminotransferase Thyroid Stimulating Hormone Basic Metabolic Panel Aspartate Aminotransferase Thyroid Stimulating Hormone Basic Metabolic Panel 2. High risk medication use Aspartate Aminotransferase Thyroid Stimulating Hormone Basic Metabolic Panel Aspartate Aminotransferase Thyroid Stimulating Hormone Basic Metabolic Panel 3. Cardiomyopathy, ischemic Follow Up In Cardiology Comprehensive Metabolic Panel spironolactone (Aldactone) 25 mg tablet bumetanide (Bumex) 1 mg tablet Comprehensive Metabolic Panel 4. Coronary artery disease involving [place] coronary artery of [place] heart without angina pectorisComprehensive Metabolic Panel bumetanide (Bumex) 1 mg tablet Comprehensive Metabolic Panel 5. Congestive heart failure, unspecified HF chronicity, unspecified heart failure type 6. AICD (automatic cardioverter/defibrillator) present 7. Essential hypertension Comprehensive Metabolic Panel Comprehensive Metabolic Panel 8. Mixed hyperlipidemia 9. BMI 29.0-29.9,adult Scribe Attestation By signing my name below, I, Paris ChavezCady BROWN , Scribe attest that this documentation has been prepared under the direction and in the presence of Ranjan Quiles MD. Provider Attestation - Scribe documentation All medical record entries made by the Scribe were at my direction and personally dictated by me. Ihave reviewed the chart and agree that the record accurately reflects my personal performance of the history, physical exam, discussion and plan. documented in [facility] encounterFort [facility] Work Phone: [phone] 174-814201-13-2025 Instructions* Patient Instructions* Paris Jennings LPN - 08/15/2024 2:00 PM EST Please bring all medicines, vitamins, and herbal supplements with you when you come to the office. Prescriptions will not be filled unless you are compliant with your follow up appointments or have a follow up appointment scheduled as per instruction of your physician. Refills should be requested at the time of your visit. BMI was above normal measurement. Current weight: 82.5 kg (181 lb 12.8 oz) Weight change since last visit (-) denotes wt loss -9.2 lbs Weight loss needed to achieve BMI 25: 27.2 Lbs Weight loss needed to achieve BMI 30: -3.7 Lbs Provided instructions on dietary changes. Amiodarone follow up per routine Pacemaker/Defibrillator follow up per routine * Attachments The following attachments cannot be sent through Care Everywhere. * Heart Healthy Diet ([place]) documented in this encounterFort [facility] Hospital Work Phone: [phone] 714-893412-27-2024 History of Present illness Narrative* Agus Nation, DO - 07/29/2024 11:59 PM EST Patient Name: Shawna Hernandes Date of : 1945 Date of Service: 07/29/2024 Facility: [facility] Type of Visit: Skilled Visit Subjective Shawna Hernandes is a 79 y.o. male seen today at assisted facility for skilled visit. Shawna has been nauseated usually once a day. There is no pattern. Sometimes it is in the morning andtoday it is in the late afternoon. He is using Zofran with fair relief. He is still using oxycodoneprn with benefit but also uses Tylenol. He denies chest pain or shortness a breath. His legs are swollen but not use it compression hose lately. He is participating in therapy. Past Medical History: Diagnosis Date Arthritis Disease of thyroid gland Hypertension Lumbosacral radiculopathy at S1 moderate B/L by EMG Myocardial infarction ([facility] [place] Schatzki's ring 10/21/2023 Stroke ([facility] [place] Past Surgical History: Procedure Laterality Date CARDIAC CATHETERIZATION CARDIAC SURGERY ESOPHAGOGASTRODUODENOSCOPY 10/20/2023 Dr. Kelley TONSILLECTOMY Family History Problem Relation Age of Onset Dementia Mother in her early 90s Heart attack Father 50 Heart disease Sister High Cholesterol Sister Heart disease Brother stents Heart disease Brother CABG-in his 60s Heart disease Paternal Grandfather Allergies: Adhesive Objective BP 114/68 Pulse 58 Temp 36.6 C (97.8 F) Resp 16 SpO2 96% Physical Exam Constitutional: General: He is not in acute distress. Comments: He is in bed in his room. Pleasant Cardiovascular: Rate and Rhythm: Normal rate and regular rhythm. Heart sounds: Normal heart sounds. Pulmonary: Effort: No respiratory distress. Breath sounds: Normal breath sounds. No rales. Abdominal: General: Bowel sounds are normal. Palpations: Abdomen is soft. Tenderness: There is no abdominal tenderness. Musculoskeletal: Right lower le+ Pitting Edema present. Left lower le+ Pitting Edema present. Comments: With compression hose Neurological: Mental Status: He is alert. Psychiatric: Behavior: Behavior is cooperative. Summary / Assessment / Plan 1. History of cholecystectomy 2. Choledocholithiasis 3. Chronic systolic congestive heart failure ([facility]) 4. Coronary artery disease involving [place] coronary artery of [place] heart without angina pectoris Renew oxycodone 5 mg q.6 hours p.r.n. pain. Change Zofran to promethazine 25 mg q.4 hours p.r.n. nausea vomiting for 2 weeks. Check CBC, CMP and BNP. Continue other orders and therapy as directed. Follow up with surgeon as directed ELECTRONICALLY SIGNED BY: Agus Nation DO documented in this encounterTri[facility] History of Present illness Narrative* Agus Nation DO - 07/22/2024 11:59 PM EST Patient Name: Shawna Hernandes Date of : 1945 Date of Service: 08/04/2024 Facility: [facility] Type of Visit: Admission H&P Subjective Shawna Hernandes is a 79 y.o. male seen today at assisted facility for No chief complaint on file. . Shawna presents for therapy from the [facility] where he had an open cholecystectomyfor choledocholithiasis. He spent a week in the hospital and then transferred here. He has been weak and dizzy. His blood pressure and pulse have been running low. He now has parameters to hold carvedilol if blood pressure is too low. He did not have any therapy today because he did not feel well. He had 8 diarrhea stools last night and 1 today. He has a abdominal pain from the surgery but no newpain. His appetite is fair. He denies chest pain or shortness a breath. Past Medical History: Diagnosis Date Arthritis Disease of thyroid gland Hypertension Lumbosacral radiculopathy at S1 moderate B/L by EMG Myocardial infarction ([facility]) Schatzki's ring 10/21/2023 Stroke ([facility] [place] Past Surgical History: Procedure Laterality Date CARDIAC CATHETERIZATION CARDIAC SURGERY ESOPHAGOGASTRODUODENOSCOPY 10/20/2023 Dr. Kelley TONSILLECTOMY Family History Problem Relation Age of Onset Dementia Mother in her early 90s Heart attack Father 50 Heart disease Sister High Cholesterol Sister Heart disease Brother stents Heart disease Brother CABG-in his 60s Heart disease Paternal Grandfather Current Outpatient Medications Medication Sig Dispense Refill amiodarone (PACERONE) 200 mg tablet Take 1 tablet (200 mg total) by mouth in the morning. aspirin 81 mg Take 1 tablet (81 mg total) by mouth in the morning. 150 tablet 2 atorvastatin (LIPITOR) 80 mg tablet b complex vitamins tablet Take 1 tablet by mouth in the morning. biotin (BIOTIN) 5 mg capsule Take 1 capsule (5 mg total) by mouth in the morning. 30 capsule 0 bumetanide (BUMEX) 2 mg tablet Take 1 tablet (2 mg total) by mouth daily. carvediloL (COREG) 12.5 mg tablet Take 1.5 tablets (18.75 mg total) by mouth in the morning and 1.5tablets (18.75 mg total) before bedtime. clopidogreL (PLAVIX) 75 mg tablet Take 1 tablet (75 mg total) by mouth in the morning. 90 tablet 3 empagliflozin (JARDIANCE) 10 mg tablet tablet take 1 tablet every morning 30 tablet 2 famotidine (PEPCID) 20 mg tablet Take 1 tablet (20 mg total) by mouth in the morning and 1 tablet (20 mg total) before bedtime. folic acid (FOLVITE) 400 MCG tablet Take 1 tablet (400 mcg total) by mouth in the morning. 100 tablet 3 levothyroxine (SYNTHROID, LEVOTHROID) 50 MCG tablet magnesium oxide (MAGOX) 400 mg tablet Take 1 tablet (400 mg total) by mouth in the morning. mexiletine (MEXITIL) 150 mg capsule Take 1 capsule (150 mg total) by mouth 3 (three) times a day. nitroglycerin (NITROSTAT) 0.[address] 1 tablet (0.4 mg total) under the tongue every 5 (five) minutes as needed for chest pain. 25 tablet 3 omega 8-hbc-pma-fish oil 60-90-500 mg capsule,delayed release(DR/EC) Take 1 capsule by mouth in themorning and 1 capsule before bedtime. 100 capsule 0 pantoprazole (PROTONIX) 20 mg EC tablet take 1 tablet by mouth every morning 30 tablet 1 promethazine (PHENERGAN) 25 mg tablet Take 1 tablet (25 mg total) by mouth every 6 (six) hours as needed for nausea or vomiting. 30 tablet 1 sacubitriL-valsartan (ENTRESTO) 49-51 mg tablet Take 1 tablet by mouth in the morning and 1 tablet before bedtime. saliva substitute combo no.9 (BIOTENE DRY MOUTH ORAL RINSE) mouthwash Swish and spit 15 mL as needed (dry mouth). 473 mL 1 sodium chloride (NORMAL SALINE FLUSH) injection Infuse 10 mL into a venous catheter in the morning and 10 mL before bedtime. 1000 mL 1 spironolactone (ALDACTONE) 25 mg tablet Take 0.5 tablets (12.5 mg total) by mouth. vit A,C and I-akwjzi-hyekvmov (EYE HEALTH PLUS LUTEIN) 300 mcg-200 mg-27 mg-2 mg tablet Take 1 tablet by mouth in the morning. No current facility-administered medications for this visit. Allergies: Adhesive Code Status: FULL CODE The following portions of the patient's history were reviewed and updated as appropriate: allergies, current medications, past family history, past medical history, past social history, past surgicalhistory, problem list, and medication reconciliation was completed including current medication andpost discharge medication. Review of Systems Constitutional: Positive for fatigue. Respiratory: Negative. Cardiovascular: Positive for leg swelling. Negative for chest pain. Gastrointestinal: Positive for abdominal pain and diarrhea. Musculoskeletal: Positive for gait problem. Neurological: Positive for dizziness and weakness. Objective BP (!) 84/50 Pulse 59 Temp 36.3 C (97.3 F) SpO2 94% Physical Exam Constitutional: General: He is sleeping. He is not in acute distress. Comments: In recliner in room, sleeping. Cardiovascular: Rate and Rhythm: Regular rhythm. Bradycardia present. Heart sounds: Normal heart sounds. Pulmonary: Effort: Pulmonary effort is normal. Breath sounds: Normal breath sounds. No wheezing, rhonchi or rales. Abdominal: General: Bowel sounds are increased. Palpations: Abdomen is soft. Tenderness: There is no abdominal tenderness. Musculoskeletal: Right lower le+ Pitting Edema present. Left lower le+ Pitting Edema present. Comments: Wearing compression hose Neurological: Mental Status: He is oriented to person, place, and time and easily aroused. Psychiatric: Attention and Perception: Attention normal. Mood and Affect: Mood normal. Speech: Speech normal. Behavior: Behavior normal. Behavior is cooperative. Cognition and Memory: Cognition normal. Judgment: Judgment normal. Comments: Pleasant Assessment/Plan Summary / Assessment / Plan 1. S/P cholecystectomy 2. Chronic systolic congestive heart failure (CMS-HCC) 3. Bradycardia 4. Diarrhea, unspecified type 5. Coronary artery disease involving [place] coronary artery of [place] heart without angina pectoris Other conditions as before Admit for therapies. Full code. Good rehab potential. Decrease carvedilol to 6.25 mg b.I.d. and continue parameters. Imodium 2 mg 1-2 p.o. q.6 hours p.r.n. diarrhea. Check CBC and CMP. Will follow ELECTRONICALLY SIGNED BY: Agus Nation DO documented in this encounterTri[facility]12[facility]12-15-2024 [facility]12-14-2024 Note [facility]12-14-2024 NoteHNO ID: [id number] Author: NOTE, INTERFACE, ? Service: ? Author Type: ? Type: Progress Notes Filed: 07/21/2024 15:58 Note Text: Epic Scheduled Downtime: 07/16/2024 1:00:00 AM to 07/16/2024 2:52:17 [facility]12-13-2024 [facility]12-12-2024 Note [facility]12-12-2024 [facility]12-11-2024 [facility]12-11-2024 [facility] 07-13-2024 [facility]12-11-2024 [facility]12-11-2024 [facility]12-11-2024 [facility]12-11-2024 [facility]12-10-2024 Note [facility]12-10-2024 [facility]12-06-2024 Instructions* Patient Instructions* Rod Salas APRN.COMMUNITY OUTREACH DIRECTOR - 07/08/2024 1:40 PM EST Images from the original note were not included. [facility] PATIENT PREOPERATIVE INSTRUCTIONS Escobar Givens MD has scheduled you for your procedure at this surgery center: [facility] Scheduling Office: [phone] --[address] [place] [address]. Please read below carefully for your personalized instructions. Dietary Restrictions: - No solid food after midnight. - You may have 12 ounces of clear liquids (water, clear juices such as apple juice or gatorade, carbonated beverages, clear tea, black coffee, jello) until 2 hours before scheduled arrival at facility. Medications: Unless instructed differently below, stay on all of your medications until your surgery. If you start any new medications after today's visit, please contact your surgeon. Pre-Surgery Med Instructions Medication Instructions carvedilol (COREG) 12.5 mg tablet Take the day of surgery with a small sip of water amiodarone (PACERONE) 200 mg tablet Take the day of surgery with a small sip of water aspirin 81 mg chewable tablet Take the day of surgery with a small sip of water atorvastatin (LIPITOR) 80 mg tablet Take the day of surgery with a small sip of water bumetanide (BUMEX) 0.5 mg tablet Do not take the day of surgery clopidogrel (PLAVIX) 75 mg tablet Stop 5 days before surgery empagliflozin (JARDIANCE) 10 mg tablet Stop 3 days before surgery levothyroxine (SYNTHROID) 50 mcg tablet Take the day of surgery with a small sip of water melatonin 1 mg tablet Stop 7 days before surgery mexiletine (MEXITIL) 150 mg capsule Take the day of surgery with a small sip of water pantoprazole DR (PROTONIX) 40 mg tablet Take the day of surgery with a small sip of water sacubitril-valsartan (ENTRESTO) 24-26 mg tablet Take the day of surgery with a small sip of water senna (SENOKOT) 8.6 mg tab Do not take the day of surgery If you take any medications for erectile dysfunction-Cialis (Tadalafil), Levitra, Staxyn (Vardenafil) Viagra (Sildenenafil please do not take these for 48 hours before surgery. If you start any new medications after today's visit, please contact the surgeon's office. If you are currently using a qfdg-etk-wnxi injectable or oral medication for diabetes or weight loss such as Dulaglutide (Trulicity), Exenatide (Byetta, Bydureon), Liraglutide (Victoza, Saxenda), Semaglutide (Ozempic, Wegovy, Rybelsus), or Tirzepatide (Mounjaro), the medicine should be stopped at least 7 days before surgery. These medicines can cause food to remain in your stomach for a very longtime and increase the risks from surgery and anesthesia. Not stopping the medication for a long enough time may result in your surgery being rescheduled. Blood Thinning Medications: - Stop NSAIDS (Ibuprofen, Advil, Aleve, Motrin, Celebrex, Mobic, etc.) 7 days before surgery, as directed by your surgeon. - Stop Plavix 5 days before surgery or as directed by physician. - Do NOT stop aspirin or other anticoagulants without consulting with your archives technician or prescribing physician. - Stop ALL herbal and dietary supplements 7 days before surgery. - You may take Tylenol (Acetaminophen) or any of your pain medications that do not contain aspirin or NSAIDS as needed. Important Reminders: - Candy, mints, and tobacco products are NOT permitted the morning of surgery. - Hearing aids, dentures and glasses may be worn the morning of surgery. - NO jewelry, body piercings, makeup, hairpins or contacts are to be worn the day of surgery. If you develop symptoms such as a fever, cold, or flu, or have other changes to your health within TWO DAYS of scheduled surgery or the morning of surgery, please contact the surgery center above. Personal Belongings: -Please have photo ID and insurance cards. -If you do not have a copy of advance directives on file with us, please bring a copy with you on the day of surgery. - Leave ALL valuables and money at home or with family members. For Outpatient Procedures: - YOU MUST HAVE A RESPONSIBLE OPERATIONS BOARDMAN TAKE YOU HOME. A MUCKER OPERATOR OR DISPLAY ARTIST CANNOT BE MADE A RESPONSIBLE OPERATIONS BOARDMAN. - We recommend that a responsible person stays with you overnight to take care of you. - You cannot stay in a hotel alone after outpatient surgery. You will not be permitted to have yoursurgery, if you do not have someone to take care of you. Arrival Time for Surgery: - To obtain your arrival time for surgery, call your physician's office the day before your surgery. - If your surgery is scheduled for Thursday, call the Thursday before. Your surgeon s radiology scheduler will tell you what time to call the office. - If you have not reached the departmental radiology scheduler by 5 P.M., call [phone] after 5 P.M. the day before your surgery. Please be aware that emergency situations arise, which may delay or change your surgical time. If this happens, we will notify you as soon as possible and regret any inconvenience. If you already have an Advance Directive, please fax a copy to [phone] or email to for it to be added to your chart. If you do not have an Advance Directive, you can find the appropriate form and more information at [email or web address]. We recommend that youcomplete the Advance Directive form found on the website and bring it with you the day of your surgery. It can be witnessed and scanned into your chart that day. Rod Salas APRN.CNP documented [facility] History and physical note * Rod Salas APRN.CNP - 07/08/2024 1:00 PM EST Images from the original note were not included. [facility] HISTORY AND PHYSICAL EXAMINATION SERVICE DATE: 07/08/2024 SERVICE TIME: 1:28 PM PRIMARY CARE PHYSICIAN: Agus Nation MD, DO Assessment Patient has the following medical conditions which may affect ivelisse-operative course: History of TIA (transient ischemic attack) Patient states hx of mini-strokes several years ago. No residual. HTN (hypertension) Stable on Carvedilol 12.5 mg BID. BP today 102/48. HLD (hyperlipidemia) Stable on Atorvastatin 80 mg daily. HFrEF (heart failure with reduced ejection fraction) (HCC) Stable on Bumetanide daily, Carvedilol BID, Entresto BID, Jardiance 10 mg daily. Echo 05/02/24 showed - The left ventricle is mildly dilated. Left ventricular systolic function is severely decreased. EF = 20 5% (visual est.) Grade I left ventricular diastolic dysfunction. Follows with Cardiology, patient had a pre-op evaluation with Dr. Velez today, 07/08/24. Per note, Risk of Decompensated Heart Failure Given his reduced EF and history of ischemic cardiomyopathy, patient will be at a risk for volume overload perioperatively. Would be judicious with any fluid administration. Patient may benefit from short hospital admission (~ 48 hours) after the surgery. Ok to hold Entresto/Emplagliflozin perioperatively and restart as soon as feasible after surgery. Ischemic cardiomyopathy Echo 05/02/24 showed - The left ventricle is mildly dilated. Left ventricular systolic function is severely decreased. EF = 20 5% (visual est.) Grade I left ventricular diastolic dysfunction. S/p pacemaker/defibrillator placement. A-fib ([facility]) Stable on Amiodarone 200 mg daily and Carvedilol 12.5 mg BID. ECG 07/08/24 showed AV dual-paced rhythm. V-tach (HCC) Hx of V-tach. Follows with Cardiology, patient had a pre-op evaluation with Dr. Velez today, 07/08/24. Per note, Risk of arrhythmias While patient has a history of ventricular tachycardia, this is always been slow VT-likely scar mediated. This has not resulted in hemodynamic compromise for him. This has been going on for years. Hewill certainly be at risk for this perioperatively. No obvious procedure to meaningfully reduce this risk preoperatively. I would recommend continuing his antiarrhythmic medications-amiodarone/mexiletine/carvedilol. If ICD disabled for surgery, please have defib pads placed/available intraoperatively. ICD (implantable cardioverter-defibrillator) in place Type of device/Flower Arranger: [employer], cardiac resynchronization therapy - defibrillator Last interrogation: 05/04/24 Pacemaker dependency: No Surgical site: Abdomen Location of CIED generator in body: left upper chest wall Follows with Cardiology, patient had a pre-op evaluation with Dr. Velez today, 07/08/24. Per note, Risk of arrhythmias While patient has a history of ventricular tachycardia, this is always been slow VT-likely scar mediated. This has not resulted in hemodynamic compromise for him. This has been going on for years. Hewill certainly be at risk for this perioperatively. No obvious procedure to meaningfully reduce this risk preoperatively. I would recommend continuing his antiarrhythmic medications-amiodarone/mexiletine/carvedilol. If ICD disabled for surgery, please have defib pads placed/available intraoperatively. Coronary artery disease involving [place] coronary artery of [place] heart without angina pectoris CAD s/p cardiac stents in 2022. Stable on Aspirin 81 mg, Atorvastatin 80 mg, and Plavix 75 mg daily. Follows with Cardiology, patient had a pre-op evaluation with Dr. Velez today, 07/08/24. Per note, Patient has significant coronary disease. However, reassuringly -his recent PET stress does not reveal any ischemia. His last percutaneous intervention was greater than 1 year ago. He does not have any active ischemia symptoms. A cholescystecptomy is otherwise a low cardiac risk surgery and I would estimate his risk of ACS to be still less than 1% (NSQIP). Ok to hold antiplatelet agents 1 week prior to surgery and restart as soon as safe from a bleeding perspective. Hypothyroidism Stable on Levothyroxine 50 mcg daily. GERD (gastroesophageal reflux disease) Stable on Pantoprazole 40 mg BID. [place]upe Activity Status Index: METS: Walk indoors, such as around the house (1.75 METs) Do light work around the house, such as dusting or washing dishes (2.70 METs) Take care of self; that is eating, dressing, bathing, using the toilet (2.75 METs) DASI Score: 7.2 Patient denies any chest pain or undue shortness of breath with the above physical activity. Clinical Frailty Scale: 6. Moderately frail STOP-Bang Score: Snores loudly Has or is being treated for high blood pressure Patient over 50 years old Male patient Denies feeling tired, fatigued, or sleepy during the daytime Has not been observed to stop breathing or choking/gasping during sleep BMI less than or equal to 35 kg/m^2 Does not have a large neck STOP-Bang Score: 4 [id number] Score: Age: >=75 Sex: male CHF history: Yes Hypertension history: Yes Stroke/TIA/thromboembolism history: Yes Vascular disease history: Yes Diabetes history: No [id number] Score: 7 ARISCAT Score: Age: 51-80 Preoperative SpO2: >=96% Respiratory infection in the last month: No Preoperative anemia: Yes Surgical incision: upper abdominal Duration of surgery: >3 hrs Emergency procedure: No ARISCAT Score: 52 ASA Class: 3 ANESTHESIA FINDINGS: Intubation History: No abnormal airway history Significant Anesthesia Considerations: potential postop nausea/vomiting Airway History: No abnormal airway history I - PHYSICAL EVALUATION AIRWAY Patient intubated: No. Tracheostomy tube not present Mallampati: I. TM distance: >3 FB. Neck ROM: full ROM without neurological symptoms. Mouth opening: adequate. Short neck: no. Thick neck: no Montez present: yes Lip Bite Test: I Microretrognathia/Micronagthia/Recessed Chin: No DENTAL Dental findings: missing tooth/teeth. Dentures, upper: partial. Dentures, lower: partial. Additional comments: + Implant. II - ANESTHESIA PLAN ASA Score: 3 Anesthetic plan additional comments: *PACC/TCI - anesthesia choice. Beta Toi Monitoring Plan Post Procedure Analgesic Plan Prepared for Surgery: optimally prepared for surgery, pending [see comment]. Labs & ECG CONSULTS: The following consults have been initiated at this time: cardiology (See OV with Dr. Velez on 07/08/24 - perioperative cardiovascular risks elevated, otherwise medically optimized and risks are largely non-modifiable. Close perioperative cardiovascular monitoring). Planned Anesthetic: anesthesia choice The Following Tests/Procedures Have Been Initiated: Orders placed by surgeon's office: CBC, CMP, TYPE + SCREEN REASON FOR VISIT: Shawna Hernandes is a 79 year old male who is scheduled for LAPAROSCOPIC CHOLECYSTECTOMY POSSIBLE OPEN at the request of Dr. Escobar Givens for consultation. My final recommendation will be communicated back to the requesting physician by way of shared medical record or letter. Subjective The patient has the following: COVID-19 Immunization Status Overdue - Covid-19 Vaccine (2023- season) Overdue since 04/03/2024 11/17/2023 Imm Admin: COVID-19 vaccine, age 12+ yr, season (MODERNA) 05/11/2023 Imm Admin: COVID-19 vaccine, age 12+ yr, season (PFIZER-BIONTECH) 05/08/2022 Imm Admin: COVID-19 vaccine, age 12+ yr, bivalent (Scoutmob-BIONTECH) Only the first 3 history entries have been loaded, but more history exists. CHIEF COMPLAINT: Acute cholecystitis HPI: Patient is a 79 year old male presenting to [facility]; has c/o acute cholecystitis. He has associated nausea, vomiting, abdominal pain, weight loss (11 lbs in months). Patient currently has a cholecystomy tube in place. Patient denies recent fevers, changes in bowel habits, blood in the stool. The above surgery was recommended; patient has elected to proceed. REVIEW OF SYSTEMS: General: Positive for: unintentional weight change and malaise. Patient's weight loss: 11 lbs in 4 months Negative for: fever. Neurological: Positive for: TIA. Negative for: seizures and strokes. Respiratory: Negative for: asthma, COPD, current cough, dyspnea, pneumonia within 6 weeks and URI < 2 weeks. Cardiovascular: Positive for: AICD/PPM, atrial fibrillation, CAD, CHF, hyperlipidemia and hypertension Patient's last office visit The following tests and/or procedures were performed: cardiac stents. Negative for: angina, chest pain, DVT/PE, open heart surgery and valve surgery. GI: See HPI. : Negative for: dysuria, hematuria, renal failure and urinary tract infection. Endocrine: Positive for: hypothyroidism. Negative for: diabetes mellitus. Hematology: Positive for: chronic anti-coagulation/platelet meds. Oncology: No history of CA metastasis, chemo within 30 days, or radiotherapy within 90 days. No history of oncological symptoms or problems. Musculoskeletal: Positive for: back pain and joint pain. Skin: Negative for lesions, rash and itching. Implanted Devices: Has implanted device PAST MEDICAL HISTORY Diagnosis Date A-fib (HCC) CAD (coronary artery disease) CKD (chronic kidney disease) COPD (chronic obstructive pulmonary disease) (HCC) HFrEF (heart failure with reduced ejection fraction) (HCC) HTN (hypertension) Hypothyroidism ICD (implantable cardioverter-defibrillator) in place Ischemic cardiomyopathy PAST SURGICAL HISTORY Procedure Laterality Date IMPLANTABLE ICD PLACEMENT PCI/STENT 03/12/2023 FAMILY HISTORY Problem Relation Age of Onset Heart disease Father Heart disease Brother Heart disease Paternal Grandfather Social History Tobacco Use Smoking status: Former Types: Cigarettes Smokeless tobacco: Never Tobacco comments: Quit 50+ years ago Vaping Use Vaping status: Never Used Substance Use Topics Alcohol use: Yes Comment: less than weekly, maybe once per year Drug use: Never Prior to Admission medications as of 07/08/24 1329 Medication Sig Last Dose Taking carvedilol (COREG) 12.5 mg tablet Take 12.5 mg by mouth two times a day with meals. Taking Yes amiodarone (PACERONE) 200 mg tablet Take 1 tablet by mouth once daily. Taking Yes aspirin 81 mg chewable tablet Take 1 tablet by mouth once daily. Taking Yes atorvastatin (LIPITOR) 80 mg tablet Take 1 tablet by mouth once daily. Taking Yes bumetanide (BUMEX) 0.5 mg tablet Take 1 tablet by mouth once daily. Patient taking differently: Take 2 mg by mouth once daily. Taking Yes clopidogrel (PLAVIX) 75 mg tablet Take 1 tablet by mouth once daily. Taking Yes empagliflozin (JARDIANCE) 10 mg tablet Take 1 tablet by mouth daily with breakfast. Taking Yes levothyroxine (SYNTHROID) 50 mcg tablet Take 1 tablet by mouth daily before breakfast. Taking Yes melatonin 1 mg tablet Take 1 tablet by mouth daily at bedtime. Taking Yes mexiletine (MEXITIL) 150 mg capsule Take 1 capsule by mouth three times a day. Taking Yes pantoprazole DR (PROTONIX) 40 mg tablet Take 1 tablet by mouth two times a day. Taking Yes sacubitril-valsartan (ENTRESTO) 24-26 mg tablet Take 1 tablet by mouth two times a day. Taking Yes senna (SENOKOT) 8.6 mg tab 1 tablet by ORAL/FEEDING TUBE route two times a day. Taking Yes No medication comments found. ALLERGIES No Known Allergies Objective PHYSICAL EXAM: General: alert and oriented. Pertinent negatives noted - not distressed. Skin: normal color, no rash or lesions. HEENT: EOM intact, pupils equal round and pupils reactive to light. Cardiovascular: Regular rate and rhythm. Respiratory: normal breath sounds, no wheezes or crackles. Abdomen: bowel sounds present. Extremities: Positive for joint tenderness. Neurological: normal cognition and motor skills. PAIN ASSESSMENT: VITALS: BP 102/48 Pulse 59 Temp (Src) 96.3 (Oral) Resp 18 Ht 5' 6 (1.68m) Wt 180 lb 1.9 oz (81.7kg) SpO2 100% BMI 29.09 kg/(m^2). Diagnostic tests reviewed for today's visit: Lab Value Units Date High Low HB 12.8 g/dL 07/08/2024 17.0 13.0 HCT 39.9 % 07/08/2024 51.0 39.0 WBC 7.28 k/uL 07/08/2024 11.00 3.70 PLT 211 k/uL 07/08/2024 400 150 NA 135 mmol/L 05/10/2024 144 136 K 4.0 mmol/L 05/10/2024 5.1 3.7 GLUC 99 mg/dL 05/10/2024 99 74 BUN 16 mg/dL 05/10/2024 24 9 CREAT 1.20 mg/dL 05/10/2024 1.22 0.73 PTSEC 12.4 sec 03/20/2024 13.0 9.7 INR 1.2 no uni* 03/20/2024 1.3 0.9 APTT No results within date range. ALT 73 U/L 05/10/2024 54 10 AST 47 U/L 05/10/2024 40 14 TBILI 0.6 mg/dL 05/10/2024 1.3 0.2 TSH No results within date range. Lab Value Units Date High Low HCGQT No results within date range. UHCG No results within date range. HCG, BODY* No results within date range. Lab Value Units Date High Low ABORHD No results within date range. ABSCREEN No results within date range. No results found for: HBA1C Recent Results (from the past 8760 hour(s)) ECG COMPLETE Collection Time: 07/08/24 9:16 AM Result Value Ventricular Rate 60 Atrial Rate 60 P-R Interval 206 QRS Duration 138 QT Interval 496 QTC Calculation (Bazett) 496 Calculated R Oxford -21 Calculated T Oxford 71 Impression AV DUAL-PACED RHYTHM ABNORMAL ECG Recent Results (from the past 89961 hour(s)) ECHO Collection Time: 05/02/24 6:13 AM Impression CONCLUSIONS: - Technically difficult exam due to body habitus, suboptimal positioning and no access to contrast. - Exam indication: hypotension/sepsis - The left ventricle is mildly dilated. Left ventricular systolic function is severely decreased. EF = 20 5% (visual est.) Grade I left ventricular diastolic dysfunction. - The right ventricle is normal in size. Right ventricular systolic function is normal. - Exam was compared with the prior echocardiographic exam performed on 03/21/24 There is no significant change. * * * Final * * * Instructions Given to Patient: Instructions located in the after visit summary. Patient given verbal and written preop instructions and voices comprehension and compliance. SIGNATURE: Rod Salas APRN.CNP PATIENT NAME: Shawna Hernandes DATE: July 08, 2024 TIME: 3:33 PM PAGER/CONTACT #: [facility]12-06-2024 History and physical note* Rod Salas APRN.CNP - 07/08/2024 1:00 PM EST Images from the original note were not included. [facility] HISTORY AND PHYSICAL EXAMINATION SERVICE DATE: 07/08/2024 SERVICE TIME: 1:28 PM PRIMARY CARE PHYSICIAN: Agus Nation MD, DO Assessment Patient has the following medical conditions which may affect ivelisse-operative course: History of TIA (transient ischemic attack) Patient states hx of mini-strokes several years ago. No residual. HTN (hypertension) Stable on Carvedilol 12.5 mg BID. BP today 102/48. HLD (hyperlipidemia) Stable on Atorvastatin 80 mg daily. HFrEF (heart failure with reduced ejection fraction) (HCC) Stable on Bumetanide daily, Carvedilol BID, Entresto BID, Jardiance 10 mg daily. Echo 05/02/24 showed - The left ventricle is mildly dilated. Left ventricular systolic function is severely decreased. EF = 20 5% (visual est.) Grade I left ventricular diastolic dysfunction. Follows with Cardiology, patient had a pre-op evaluation with Dr. Velez today, 07/08/24. Per note, Risk of Decompensated Heart Failure Given his reduced EF and history of ischemic cardiomyopathy, patient will be at a risk for volume overload perioperatively. Would be judicious with any fluid administration. Patient may benefit from short hospital admission (~ 48 hours) after the surgery. Ok to hold Entresto/Emplagliflozin perioperatively and restart as soon as feasible after surgery. Ischemic cardiomyopathy Echo 05/02/24 showed - The left ventricle is mildly dilated. Left ventricular systolic function is severely decreased. EF = 20 5% (visual est.) Grade I left ventricular diastolic dysfunction. S/p pacemaker/defibrillator placement. A-fib (HCC) Stable on Amiodarone 200 mg daily and Carvedilol 12.5 mg BID. ECG 07/08/24 showed AV dual-paced rhythm. V-tach (HCC) Hx of V-tach. Follows with Cardiology, patient had a pre-op evaluation with Dr. Velez today, 07/08/24. Per note, Risk of arrhythmias While patient has a history of ventricular tachycardia, this is always been slow VT-likely scar mediated. This has not resulted in hemodynamic compromise for him. This has been going on for years. Hewill certainly be at risk for this perioperatively. No obvious procedure to meaningfully reduce this risk preoperatively. I would recommend continuing his antiarrhythmic medications-amiodarone/mexiletine/carvedilol. If ICD disabled for surgery, please have defib pads placed/available intraoperatively. ICD (implantable cardioverter-defibrillator) in place Type of device/[employer]: [employer], cardiac resynchronization therapy - defibrillator Last interrogation: 05/04/24 Pacemaker dependency: No Surgical site: Abdomen Location of CIED generator in body: left upper chest wall Follows with Cardiology, patient had a pre-op evaluation with Dr. Velez today, 07/08/24. Per note, Risk of arrhythmias While patient has a history of ventricular tachycardia, this is always been slow VT-likely scar mediated. This has not resulted in hemodynamic compromise for him. This has been going on for years. Hewill certainly be at risk for this perioperatively. No obvious procedure to meaningfully reduce this risk preoperatively. I would recommend continuing his antiarrhythmic medications-amiodarone/mexiletine/carvedilol. If ICD disabled for surgery, please have defib pads placed/available intraoperatively. Coronary artery disease involving [place] coronary artery of [place] heart without angina pectoris CAD s/p cardiac stents in 2022. Stable on Aspirin 81 mg, Atorvastatin 80 mg, and Plavix 75 mg daily. Follows with Cardiology, patient had a pre-op evaluation with Dr. Velez today, 07/08/24. Per note, Patient has significant coronary disease. However, reassuringly -his recent PET stress does not reveal any ischemia. His last percutaneous intervention was greater than 1 year ago. He does not have any active ischemia symptoms. A cholescystecptomy is otherwise a low cardiac risk surgery and I would estimate his risk of ACS to be still less than 1% (NSQIP). Ok to hold antiplatelet agents 1 week prior to surgery and restart as soon as safe from a bleeding perspective. Hypothyroidism Stable on Levothyroxine 50 mcg daily. GERD (gastroesophageal reflux disease) Stable on Pantoprazole 40 mg BID. [place] Activity Status Index: METS: Walk indoors, such as around the house (1.75 METs) Do light work around the house, such as dusting or washing dishes (2.70 METs) Take care of self; that is eating, dressing, bathing, using the toilet (2.75 METs) DASI Score: 7.2 Patient denies any chest pain or undue shortness of breath with the above physical activity. Clinical Frailty Scale: 6. Moderately frail STOP-Bang Score: Snores loudly Has or is being treated for high blood pressure Patient over 50 years old Male patient Denies feeling tired, fatigued, or sleepy during the daytime Has not been observed to stop breathing or choking/gasping during sleep BMI less than or equal to 35 kg/m^2 Does not have a large neck STOP-Bang Score: 4 [id number] Score: Age: >=75 Sex: male CHF history: Yes Hypertension history: Yes Stroke/TIA/thromboembolism history: Yes Vascular disease history: Yes Diabetes history: No [id number] Score: 7 ARISCAT Score: Age: 51-80 Preoperative SpO2: >=96% Respiratory infection in the last month: No Preoperative anemia: Yes Surgical incision: upper abdominal Duration of surgery: >3 hrs Emergency procedure: No ARISCAT Score: 52 ASA Class: 3 ANESTHESIA FINDINGS: Intubation History: No abnormal airway history Significant Anesthesia Considerations: potential postop nausea/vomiting Airway History: No abnormal airway history I - PHYSICAL EVALUATION AIRWAY Patient intubated: No. Tracheostomy tube not present Mallampati: I. TM distance: >3 FB. Neck ROM: full ROM without neurological symptoms. Mouth opening: adequate. Short neck: no. Thick neck: no Montez present: yes Lip Bite Test: I Microretrognathia/Micronagthia/Recessed Chin: No DENTAL Dental findings: missing tooth/teeth. Dentures, upper: partial. Dentures, lower: partial. Additional comments: + Implant. II - ANESTHESIA PLAN ASA Score: 3 Anesthetic plan additional comments: *PACC/TCI - anesthesia choice. Beta Toi Monitoring Plan Post Procedure Analgesic Plan Prepared for Surgery: optimally prepared for surgery, pending [see comment]. Labs & ECG CONSULTS: The following consults have been initiated at this time: cardiology (See OV with Dr. Velez on 07/08/24 - perioperative cardiovascular risks elevated, otherwise medically optimized and risks are largely non-modifiable. Close perioperative cardiovascular monitoring). Planned Anesthetic: anesthesia choice The Following Tests/Procedures Have Been Initiated: Orders placed by surgeon's office: CBC, CMP, TYPE + SCREEN REASON FOR VISIT: Shawna Hernandes is a 79 year old male who is scheduled for LAPAROSCOPIC CHOLECYSTECTOMY POSSIBLE OPEN at the request of Dr. Escobar Givens for consultation. My final recommendation will be communicated back to the requesting physician by way of shared medical record or letter. Subjective The patient has the following: COVID-19 Immunization Status Overdue - Covid-19 Vaccine (2023-) Overdue since 04/03/2024 11/17/2023 Imm Admin: COVID-19 vaccine, age 12+ yr, season (MODERNA) 05/11/2023 Imm Admin: COVID-19 vaccine, age 12+ yr, season (PFIZER-BIONTECH) 05/08/2022 Imm Admin: COVID-19 vaccine, age 12+ yr, bivalent (PFIZER-BIONTECH) Only the first 3 history entries have been loaded, but more history exists. CHIEF COMPLAINT: Acute cholecystitis HPI: Patient is a 79 year old male presenting to [facility]; has c/o acute cholecystitis. He has associated nausea, vomiting, abdominal pain, weight loss (11 lbs in months). Patient currently has a cholecystomy tube in place. Patient denies recent fevers, changes in bowel habits, blood in the stool. The above surgery was recommended; patient has elected to proceed. REVIEW OF SYSTEMS: General: Positive for: unintentional weight change and malaise. Patient's weight loss: 11 lbs in 4 months Negative for: fever. Neurological: Positive for: TIA. Negative for: seizures and strokes. Respiratory: Negative for: asthma, COPD, current cough, dyspnea, pneumonia within 6 weeks and URI < 2 weeks. Cardiovascular: Positive for: AICD/PPM, atrial fibrillation, CAD, CHF, hyperlipidemia and hypertension Patient's last office visit The following tests and/or procedures were performed: cardiac stents. Negative for: angina, chest pain, DVT/PE, open heart surgery and valve surgery. GI: See HPI. : Negative for: dysuria, hematuria, renal failure and urinary tract infection. Endocrine: Positive for: hypothyroidism. Negative for: diabetes mellitus. Hematology: Positive for: chronic anti-coagulation/platelet meds. Oncology: No history of CA metastasis, chemo within 30 days, or radiotherapy within 90 days. No history of oncological symptoms or problems. Musculoskeletal: Positive for: back pain and joint pain. Skin: Negative for lesions, rash and itching. Implanted Devices: Has implanted device PAST MEDICAL HISTORY Diagnosis Date A-fib (HCC) CAD (coronary artery disease) CKD (chronic kidney disease) COPD (chronic obstructive pulmonary disease) (HCC) HFrEF (heart failure with reduced ejection fraction) (HCC) HTN (hypertension) Hypothyroidism ICD (implantable cardioverter-defibrillator) in place Ischemic cardiomyopathy PAST SURGICAL HISTORY Procedure Laterality Date IMPLANTABLE ICD PLACEMENT PCI/STENT 03/12/2023 FAMILY HISTORY Problem Relation Age of Onset Heart disease Father Heart disease Brother Heart disease Paternal Grandfather Social History Tobacco Use Smoking status: Former Types: Cigarettes Smokeless tobacco: Never Tobacco comments: Quit 50+ years ago Vaping Use Vaping status: Never Used Substance Use Topics Alcohol use: Yes Comment: less than weekly, maybe once per year Drug use: Never Prior to Admission medications as of 07/08/24 1329 Medication Sig Last Dose Taking carvedilol (COREG) 12.5 mg tablet Take 12.5 mg by mouth two times a day with meals. Taking Yes amiodarone (PACERONE) 200 mg tablet Take 1 tablet by mouth once daily. Taking Yes aspirin 81 mg chewable tablet Take 1 tablet by mouth once daily. Taking Yes atorvastatin (LIPITOR) 80 mg tablet Take 1 tablet by mouth once daily. Taking Yes bumetanide (BUMEX) 0.5 mg tablet Take 1 tablet by mouth once daily. Patient taking differently: Take 2 mg by mouth once daily. Taking Yes clopidogrel (PLAVIX) 75 mg tablet Take 1 tablet by mouth once daily. Taking Yes empagliflozin (JARDIANCE) 10 mg tablet Take 1 tablet by mouth daily with breakfast. Taking Yes levothyroxine (SYNTHROID) 50 mcg tablet Take 1 tablet by mouth daily before breakfast. Taking Yes melatonin 1 mg tablet Take 1 tablet by mouth daily at bedtime. Taking Yes mexiletine (MEXITIL) 150 mg capsule Take 1 capsule by mouth three times a day. Taking Yes pantoprazole DR (PROTONIX) 40 mg tablet Take 1 tablet by mouth two times a day. Taking Yes sacubitril-valsartan (ENTRESTO) 24-26 mg tablet Take 1 tablet by mouth two times a day. Taking Yes senna (SENOKOT) 8.6 mg tab 1 tablet by ORAL/FEEDING TUBE route two times a day. Taking Yes No medication comments found. ALLERGIES No Known Allergies Objective PHYSICAL EXAM: General: alert and oriented. Pertinent negatives noted - not distressed. Skin: normal color, no rash or lesions. HEENT: EOM intact, pupils equal round and pupils reactive to light. Cardiovascular: Regular rate and rhythm. Respiratory: normal breath sounds, no wheezes or crackles. Abdomen: bowel sounds present. Extremities: Positive for joint tenderness. Neurological: normal cognition and motor skills. PAIN ASSESSMENT: VITALS: BP 102/48 Pulse 59 Temp (Src) 96.3 (Oral) Resp 18 Ht 5' 6 (1.68m) Wt 180 lb 1.9 oz (81.7kg) SpO2 100% BMI 29.09 kg/(m^2). Diagnostic tests reviewed for today's visit: Lab Value Units Date High Low HB 12.8 g/dL 07/08/2024 17.0 13.0 HCT 39.9 % 07/08/2024 51.0 39.0 WBC 7.28 k/uL 07/08/2024 11.00 3.70 PLT 211 k/uL 07/08/2024 400 150 NA 135 mmol/L 05/10/2024 144 136 K 4.0 mmol/L 05/10/2024 5.1 3.7 GLUC 99 mg/dL 05/10/2024 99 74 BUN 16 mg/dL 05/10/2024 24 9 CREAT 1.20 mg/dL 05/10/2024 1.22 0.73 PTSEC 12.4 sec 03/20/2024 13.0 9.7 INR 1.2 no uni* 03/20/2024 1.3 0.9 APTT No results within date range. ALT 73 U/L 05/10/2024 54 10 AST 47 U/L 05/10/2024 40 14 TBILI 0.6 mg/dL 05/10/2024 1.3 0.2 TSH No results within date range. Lab Value Units Date High Low HCGQT No results within date range. UHCG No results within date range. HCG, BODY* No results within date range. Lab Value Units Date High Low ABORHD No results within date range. ABSCREEN No results within date range. No results found for: HBA1C Recent Results (from the past 8760 hour(s)) ECG COMPLETE Collection Time: 07/08/24 9:16 AM Result Value Ventricular Rate 60 Atrial Rate 60 P-R Interval 206 QRS Duration 138 QT Interval 496 QTC Calculation (Bazett) 496 Calculated R Oxford -21 Calculated T Oxford 71 Impression AV DUAL-PACED RHYTHM ABNORMAL ECG Recent Results (from the past 79885 hour(s)) ECHO Collection Time: 05/02/24 6:13 AM Impression CONCLUSIONS: - Technically difficult exam due to body habitus, suboptimal positioning and no access to contrast. - Exam indication: hypotension/sepsis - The left ventricle is mildly dilated. Left ventricular systolic function is severely decreased. EF = 20 5% (visual est.) Grade I left ventricular diastolic dysfunction. - The right ventricle is normal in size. Right ventricular systolic function is normal. - Exam was compared with the prior echocardiographic exam performed on 03/21/24 There is no significant change. * * * Final * * * Instructions Given to Patient: Instructions located in the after visit summary. Patient given verbal and written preop instructions and voices comprehension and compliance. SIGNATURE: Rod Salas APRN.CNP PATIENT NAME: Shawna Hernandes DATE: July 08, 2024 TIME: 3:33 PM PAGER/CONTACT #[facility] of Present illness Narrative* Escobar Givens MD - 07/08/2024 12:12 PM EST [facility] PROGRESS NOTE Patient name: Shawna Hernandes Date of : 1945 CHIEF COMPLAINT: Percutaneous cholecystostomy HISTORY OF PRESENT ILLNESS: Shawna Hernandes is a 79 year old male with a PMHx of BPH, HTN, Afib s/p ICD, HFrEF (15% on 03/21), CAD s/p stents (03/12/23, on asa and plavix), CKD, and COPD who originally presented on 03/21 with acute cholecystitis and underwent placement of percutaneous cholecystostomy drain, last perc roula drain exchange with IR on 06/16. Today, he reports he is doing well overall. He has had no fevers, chills, or recurrence in cholangitis symptoms. He has been tolerating a diet; intermittent nausea and vomiting, last episode yesterday. Having regular bowel movements. No further pain. Cholecystostomy tube is draining around 100cc clear bilious output per day. Current home medications: Current Outpatient Medications Medication Sig carvedilol (COREG) 12.5 mg tablet Take 12.5 mg by mouth two times a day with meals. amiodarone (PACERONE) 200 mg tablet Take 1 tablet by mouth once daily. aspirin 81 mg chewable tablet Take 1 tablet by mouth once daily. atorvastatin (LIPITOR) 80 mg tablet Take 1 tablet by mouth once daily. bumetanide (BUMEX) 0.5 mg tablet Take 1 tablet by mouth once daily. (Patient taking differently: Take 2 mg by mouth once daily.) clopidogrel (PLAVIX) 75 mg tablet Take 1 tablet by mouth once daily. empagliflozin (JARDIANCE) 10 mg tablet Take 1 tablet by mouth daily with breakfast. levothyroxine (SYNTHROID) 50 mcg tablet Take 1 tablet by mouth daily before breakfast. melatonin 1 mg tablet Take 1 tablet by mouth daily at bedtime. mexiletine (MEXITIL) 150 mg capsule Take 1 capsule by mouth three times a day. pantoprazole DR (PROTONIX) 40 mg tablet Take 1 tablet by mouth two times a day. sacubitril-valsartan (ENTRESTO) 24-26 mg tablet Take 1 tablet by mouth two times a day. senna (SENOKOT) 8.6 mg tab 1 tablet by ORAL/FEEDING TUBE route two times a day. No current facility-administered medications for this visit. PHYSICAL EXAM: There were no vitals taken for this visit. General: Seated in wheelchair. No acute distress. HEENT: Normocephalic. Atraumatic. Heart: Regular rate and rhythm. Lungs: Unlabored respirations on RA. Symmetric chest rise. Abdomen: Soft, nontender, nondistended. No rebound, guarding, or rigidity. Extremities: Warm and well-perfused. No gross deformity. No lower extremity edema. Neuro: Alert and oriented. Moves all extremities. ASSESSMENT & PLAN: Shawna Hernandes is a 79 year old male with a PMHx of BPH, HTN, Afib s/p ICD, HFrEF (15% on 03/21),CAD s/p stents (03/12/23, on asa and plavix), CKD, and COPD who originally presented on 03/21 with acute cholecystitis and underwent placement of percutaneous cholecystostomy drain, last perc roula drain exchange with IR on 06/16. Saw Cardiology today: Risks of Ischemic Events ... Ok to hold antiplatelet agents 1 week prior to surgery and restart as soon as safe from a bleeding perspective. Risk of Decompensated Heart Failure ... Ok to hold Entresto/Emplagliflozin perioperatively and restart as soon as feasible after surgery. Risk of arrhythmias ... I would recommend continuing his antiarrhythmic medications- amiodarone/mexiletine/carvedilol. If ICD disabled for surgery, please have defib pads placed/available intraoperatively. PLAN: - PACC visit today - Will need ERCP before the procedure planned on 07/[address] Bryant; will plan to direct admit afterwards. Surgery planned for 07/13 - lap, possible (high chance) open cholecystectomy. - Consented in clinic Patient seen and discussed with Joyce. Joanna Moseley MD General Surgery PGY-4 July 08, 2024 12:45 PM [facility] STAFF PHYSICIAN NOTE OF PERSONAL INVOLVEMENT IN CARE I have reviewed the progress note obtained and documented by the resident and I personally participated in the villela components. I have discussed the case and management of the patient's care. The following comments revise or confirm relevant villela components of the note. IMPRESSION: This is a 79 year old with Hx cholecystitis s/p perc roula tube and choledocholithiasis. Hx CAD, HFrEF. High risk for surgery. Tangible mortality risk but we have optimized him as best wecan. PLAN: ERCP, followed by lap possible open roula. D/w cardiology. Medical Decision Making: Problems: High: Chronic illness with severe change Data: Discussed management or test w/ external physician/QHCP/source Risk: High: Decision on elective major surgery w/ risk factors Medical Decision Making Level: 5 - High Escobar Givens MD documented in this encounter[facility]12-[facility] Nurse Note* Thalia White LPN - 07/08/2024 11:34 AM EST Reviewed and confirmed with patient that there were no changes in the the nursing assessment and vitals that were completed on 07/08/2024 during previous provider appointment. [facility]12-06-[facility] Nurse Note* Thalia White LPN - 07/08/2024 11:34 AM EST Reviewed and confirmed with patient that there were no changes in the the nursing assessment and vitals that were completed on 07/08/2024 during previous provider appointment. documented in this encounterMartins Ferry [facility]12-06-2024 History of Present illness Narrative* Jacobo Velez MD - 07/08/2024 9:30 AM EST Images from the original note were not included. [facility] [place] Artemio Ward Department of Cardiovascular Medicine SECTION OF CLINICAL CARDIOLOGY OUTPATIENT VISIT DATE July 08, 2024 OUTPATIENT VISIT TYPE CONSULTATION PRIMARY CARE PHYSICIAN: Agus Nation MD ([facility]) [address] [facility] [place] [address] CHIEF COMPLAINT: Preop cardiovascular risk stratification HISTORY OF PRESENT ILLNESS: Mr. Hernandes is a 79 year old male with a complicated past cardiovascular history including 1) ischemic cardiomyopathy/heart failure with reduced ejection fraction-last EF 20% 2) coronary artery disease with last PCI March 2023 (left main-ostial LCx, residual obstructive LAD disease) -PET stress May 2024 revealing no ischemia and scar in the LAD territory 3) ventricular tachycardia-status post TUBE LASER OPERATOR-D 4) reported paroxysmal atrial fibrillation Patient has a history of colitis/cholecystitis. He currently has a percutaneous nephrostomy tube placed. Plan for cholecystectomy. He is here for preoperative cardiovascular restratification. Patienthas had a rough course over the last 2 months. He was initially hospitalized and then subsequently at rehab for extended period time. Reassuringly, he has been at home for the last week. Gradually getting better. Denies any episodes of chest pain or pressure. No significant dyspnea, although his physical conditioning is still not back at baseline. Does use a wheelchair or walker to ambulate within the house. Last ICD shock May 27, 2024. He reports all his prior shocks were while he was awake. On review of some of his ICD interrogations, I note likely slow VT at 130 beats a minute. On review of his outpatient cardiology notes-he has been seeing electrophysiology. Although those notes are not available to me. Patient/family do not remember seeing electrophysiology. He is currently on amiodarone and mexiletine. NURSING INTAKE: Mr. Hernandes is a 79 year old male from [place], [place] here today for cardiovascular evaluation related to optimization prior to lap roula surgery. Shawna has a significant medical history of BPH, HTN, Afib s/p ICD, HFrEF (15% on 03/21), CAD s/p stents (03/12/23, on asa and plavix), CKD, and COPD. He reports the following symptoms -SOB (not new) -occasional dizziness/lightheadedness He denies chest pain, palpitations, syncope, PND, and edema. PAST MEDICAL HISTORY Diagnosis Date A-fib (HCC) CAD (coronary artery disease) PAST SURGICAL HISTORY Procedure Laterality Date PCI/STENT 03/12/2023 SOCIAL HISTORY Social History Tobacco Use Smoking status: Former Types: Cigarettes Smokeless tobacco: Never Tobacco comments: Quit 50+ years ago Vaping Use Vaping status: Never Used Substance Use Topics Alcohol use: Yes Comment: less than weekly, maybe once per year Drug use: Never FAMILY HISTORY Problem Relation Age of Onset Heart disease Father Heart disease Brother Heart disease Paternal Grandfather ALLERGIES: ALLERGIES No Known Allergies MEDICATIONS: carvedilol (COREG) 12.5 mg tablet Take 12.5 mg by mouth two times a day with meals. amiodarone (PACERONE) 200 mg tablet Take 1 tablet by mouth once daily. aspirin 81 mg chewable tablet Take 1 tablet by mouth once daily. atorvastatin (LIPITOR) 80 mg tablet Take 1 tablet by mouth once daily. bumetanide (BUMEX) 0.5 mg tablet Take 1 tablet by mouth once daily. (Patient taking differently: Take 2 mg by mouth once daily.) clopidogrel (PLAVIX) 75 mg tablet Take 1 tablet by mouth once daily. empagliflozin (JARDIANCE) 10 mg tablet Take 1 tablet by mouth daily with breakfast. levothyroxine (SYNTHROID) 50 mcg tablet Take 1 tablet by mouth daily before breakfast. melatonin 1 mg tablet Take 1 tablet by mouth daily at bedtime. mexiletine (MEXITIL) 150 mg capsule Take 1 capsule by mouth three times a day. pantoprazole DR (PROTONIX) 40 mg tablet Take 1 tablet by mouth two times a day. sacubitril-valsartan (ENTRESTO) 24-26 mg tablet Take 1 tablet by mouth two times a day. senna (SENOKOT) 8.6 mg tab 1 tablet by ORAL/FEEDING TUBE route two times a day. REVIEW OF SYSTEMS: GENERAL: Negative for: Weight loss or gain, Fever or Chills, Weakness and Sleep difficulties. HEENT: Negative for: Headache, Impaired Vision, Glasses, Hearing Impairment, Ringing in Ears, Nosebleeds, Poor dental care, Bleeding Gums, Dentures NECK: Negative for: Swelling, Pain, Stiffness RESPIRATORY: Negative for: Cough, Blood in Sputum, Shortness of breath, Wheezing, Apnea GASTROINTESTINAL: Negative for: Trouble swallowing, Heartburn, Change in bowel habits, Blood in stool, Dark black stools MUSCULOSKELETAL: Negative for: Muscle or joint pain, Stiffness , Joint swelling NEUROLOGIC/PSYCHIATRIC: Negative for: Weakness, Paralysis, Numbness, Tingling, Tremor, Nervousness,Depressed mood, Memory loss SKIN: Negative for: Rashes, Itching HEMATOLOGICAL/LYMPHATIC: Negative for: Easy bruising , Easy bleeding ENDOCRINE: Negative for: Heat or cold intolerance, Excessive sweating, Frequent urination, Frequentthirst PHYSICAL EXAMINATION: BP (!) 98/47 (BP Site: Right Arm) Pulse 60 Resp 16 Ht 167.6 cm (5' 6 ) Wt 79.8 kg (176 lb) SpO2 99% BMI 28.41 kg/m General: Well appearing, in no acute distress. Skin: No clubbing, no cyanosis. Neck: No jugular venous distention, no carotid bruits, carotids have a normal upstroke, no palpablethyromegaly. Lungs: Clear to auscultation bilaterally, no wheezing or rhonchi. Heart: Regular rhythm, PMI not displaced, S1, S2 normal, no S3, no S4, no heaves, no rub and no murmur. Extremities: No peripheral edema . Grade 2+ distal pulses bilaterally. Neuro: Oriented to person, place and time, alert, cooperative, gait coordinated. CARDIOVASCULAR MEDICINE TESTING: Electrocardiogram: AV dual paced rhythm. NM PET/CT CARDIAC VIABILITY 05/06/2024 CONCLUSIONS: 1. PET Perfusion Study: Abnormal. 2. No evidence of ischemia. 3. No evidence of hibernation. 4. There is evidence of a large (>20%) scar in the territory of the LAD. 5. Left ventricle is moderately dilated. The left ventricle systolic function is severely decreased. 6. Right ventricle is normal in size. The right ventricle systolic function is normal. 7. This is a high risk scan due to area of scar. Gated Stress TOF:SC:CTAC Gated Rest TOF:SC:CTAC LVEF % 20 32 Last ECHO Result Conclusion ECHO Collected: 05/02/2024 6:13 AM (Final result) Impression: CONCLUSIONS: - Technically difficult exam due to body habitus, suboptimal positioning and no access to contrast. - Exam indication: hypotension/sepsis - The left ventricle is mildly dilated. Left ventricular systolic function is severely decreased. EF = 20 5% (visual est.) Grade I left ventricular diastolic dysfunction. - The right ventricle is normal in size. Right ventricular systolic function is normal. - Exam was compared with the prior echocardiographic exam performed on 03/21/24 There is no significant change. * * * Final * * * Last EKG Result Conclusion ECG COMPLETE Collected: 07/08/2024 9:16 AM (Preliminary result) Impression: AV DUAL-PACED RHYTHM ABNORMAL ECG Last CT Result Conclusion CT CHEST WO IVCON Exam End: 03/20/2024 9:04 PM (Final result) Impression: IMPRESSION: Small right pleural effusion with right basilar consolidation/atelectasis. Additional findings as detailed Management Technician: DILLAN Transcribe Date/Time: Mar 20 2024 9:30P Dictated by : FCO MILTON MD This examination was interpreted and the report reviewed and electronically signed by: FCO MILTON MD on Mar 20 2024 9:47PM EST IMPRESSION: Mr. Hernandes is a 79 year old male with a complicated cardiac history including coronary artery disease, ischemic cardiomyopathy and ventricular tachycardia who is here for preoperative cardiovascular restratification. Given the patient's cardiac history, his perioperative cardiovascular risks are going to be elevated. However, he is otherwise medically optimized and these risks are largely non-modifiable. In lightof that, I think it would be most prudent to consider going ahead with the cholecystectomy with close perioperative cardiovascular monitoring. Risks of Ischemic Events Patient has significant coronary disease. However, reassuringly -his recent PET stress does not reveal any ischemia. His last percutaneous intervention was greater than 1 year ago. He does not have any active ischemia symptoms. A cholescystecptomy is otherwise a low cardiac risk surgery and I wouldestimate his risk of ACS to be still less than 1% (NSQIP). Ok to hold antiplatelet agents 1 week prior to surgery and restart as soon as safe from a bleeding perspective. Risk of Decompensated Heart Failure Given his reduced EF and history of ischemic cardiomyopathy, patient will be at a risk for volume overload perioperatively. Would be judicious with any fluid administration. Patient may benefit from short hospital admission (~ 48 hours) after the surgery. Ok to hold Entresto/Emplagliflozin perioperatively and restart as soon as feasible after surgery. Risk of arrhythmias While patient has a history of ventricular tachycardia, this is always been slow VT-likely scar mediated. This has not resulted in hemodynamic compromise for him. This has been going on for years. Hewill certainly be at risk for this perioperatively. No obvious procedure to meaningfully reduce this risk preoperatively. I would recommend continuing his antiarrhythmic medications-amiodarone/mexiletine/carvedilol. If ICD disabled for surgery, please have defib pads placed/available intraoperatively. In the upcoming months, will have him get a second opinion from our Electrophysiology here. I personally interviewed, confirmed and edited the above information as obtained by others. CONTACT INFORMATION: Jacobo Velez MD, MS, FACC, FSVM, FACP, RPVI [facility] Department of Cardiovascular Medicine [address], [place] [address] Appointments: (Cardiology); (Vascular Medicine) This note was dictated using a voice recognition software. Please excuse any inadvertent typographical/grammatical/syntax errors that may have escaped the final proofread. Please don't hesitate to contact my office for any clarification. documented in this encounterMart[facility]12-06-2024 [facility] Telephone encounter Note* Telephone Encounter - Mary Diaz RN - 07/04/2024 2:21 PM EST 07/04 called patient x 4, no answer. Phone cuts off, no voice mail. Mary Diaz RN [facility] Work Phone: [phone]) 985-410312-02-2024 Miscellaneous Notes* Telephone Encounter - Mary Diaz RN - 07/04/2024 2:21 PM EST 07/04 called patient x 4, no answer. Phone cuts off, no voice mail. Mary Diaz RN * Telephone Encounter - Macy Lane MA - 07/01/2024 2:34 PM EST Scanned medication instructions fax into [employer] for review prior to upcoming surgery. Macy Lane MA documented in this encounterMartins [facility]erry [facility]11-29-2024 Telephone encounter Note * Telephone Encounter - Macy Lane MA - 07/01/2024 2:34 PM EST Scanned medication instructions fax into [employer] for review prior to upcoming surgery. Macy Lane MA [facility]11-22-2024 History of Present illness Narrative* Agus Nation DO - 06/24/2024 11:59 PM EST Patient Name: Shawna Hernandes Date of : 1945 Date of Service: 06/24/2024 Facility: [facility] Type of Visit: Skilled Visit Subjective Shawna Hernandes is a 79 y.o. male seen today at assisted facility for therapy visit. No new problems reported by staff or patient. He has a tentative discharge date of next Thursday. [facility]. He occasionally uses tylenol for headache. He is ambulating to the bathroom on his own. He is participating in therapy. Allergies: Adhesive Code Status: FULL CODE BP 96/61 Pulse 60 Physical Exam Constitutional: General: He is not in acute distress. Comments: He is in room any recliner watching TV. Pleasant Cardiovascular: Rate and Rhythm: Normal rate and regular rhythm. Heart sounds: Normal heart sounds. Pulmonary: Effort: No respiratory distress. Breath sounds: Normal breath sounds. No wheezing or rales. Abdominal: General: Bowel sounds are normal. Palpations: Abdomen is soft. Tenderness: There is no abdominal tenderness. Musculoskeletal: Right lower le+ Pitting Edema present. Left lower le+ Pitting Edema present. Comments: With compression hose Neurological: Mental Status: He is alert. Psychiatric: Behavior: Behavior is cooperative. Summary / Assessment / Plan 1. Choledocholithiasis 2. Chronic systolic congestive heart failure (CMS-HCC) 3. Coronary artery disease involving [place] coronary artery of [place] heart without angina pectoris Finish therapy. Continue current regimen. F/U with specialists at [facility]. F/U in office within 14 days of discharge. ELECTRONICALLY SIGNED BY: Agus Nation DO documented in this encounterTriHealth [facility]24 NoteAdena [facility] System11-22-2024 History of Present illness Narrative* Mary Diaz RN - 06/24/2024 12:41 PM EST RN Pre Visit Questionnaire for upcoming PACC appointment PROCEDURE : LAPAROSCOPIC CHOLECYSTECTOMY POSSIBLE OPEN SURGEON : Escobar Givens MD PROCEDURE DATE : 07/13 PACC APPT : 07/08 Do you see a archives technician, envelope folding machine adjuster, mosaic layer or other specialist within or outside of [facility]? SPECIALISTS: CARDIOLOGY: Continuous Drier Helper Dr. Ranjan Quiles MD ([facility]), Last office visit 05/27 PRIMARY CARE PHYSICIAN: Agus Nation DO OV 02/15/24 ([facility]) HTN AFIB, VT, ICD Ischemic cardiomyopathy CAD BOSSMAN to LM x 2 on 03/12/23 COPD Admit 05/01-05/10 for septic shock Are you on an anticoagulant PACC Anticoagulant: Yes Medication : Plavix (Clopidogrel) ASA 81 mg Have you been provided instructions: No Letter sent : 06/[address] Quiles requesting plavix hold x 5 days pre-op Anticoagulation recommendations : Found in scanned doc on 07/01 Provider : Dr Quiles Anticoagulation instructions : hold plavix 5 days pre-op Implanted Devices: PPM/AICD Last interrogation: 05/04/24, Type of device/Flower Arranger: Defibrillator/[employer], Battery life: 1yr , Pacemaker dependency: no, Location of CIED generator in body: right upper chest, and Surgical site: abdomen Most recent EK05/27/24 Most recent ECHO : 05/02/24 Most recent STRESS TEST PET/STRESS 05/06/24 Most recent CARDIAC CATH: 03/12/23 procedure note Most recent DEVICE CHECK: 05/04/24 Most recent PET/CT CARDIAC viability 05/06/24: Scan on 05/27/2024: ECG 12 Lead NM PET/CT CARDIAC PERF REST/STRESS (Order #[id number]) on 05/06/2024 - Order Result History Report -Result Edited NM PET/CT CARDIAC VIABILITY (Order #[id number]) on 05/06/2024 - Order Result History Report - ResultEdited Any new changes in your symptoms since you last saw your specialist? Unknown- patient unavailable during this review. Are you a Pre Diabetic/Diabetic/Weight loss/CHF medications Yes Prediabetes/DM Oral/ Injectable Medication Instructions - Empagliflozin/Jardiance -please HOLD 3 DAYS PRIOR TO SURGERY Insulin Medication Instructions Lispro - Please take the following medications at your usual dose the day before surgery. Dialysis No Skilled Facility Resident: Unknown-patient unavailable during this review. Any recent hospitalizations outside of [facility]? Unknown-patient unavailable during this review. RN PRE-PACC visit completed by [facility] chart review. Patient was unavailable during this review. 07/04 no ans SIGNATURE: Mary Diaz RN PATIENT NAME: Shawna Hernandes DATE: June 24, 2024 TIME: 12:41 PM PAGER/CONTACT PHONE: documented in this encounterMartins Ferry Hospital11-15-2024 History of Present illness Narrative* Agus Nation, DO - 06/17/2024 11:59 PM EST Patient Name: Shawna Hernandes Date of : 1945 Date of Service: 06/17/2024 Facility: [facility] Type of Visit: Skilled Visit Subjective Shawna Hernandes is a 79 y.o. male seen today at assisted facility for therapy visit. No new problems reported by staff or patient. He saw the surgeon who said they did not think there were anymore stones in bile duct and may pull tube but he still has it in. Denies CP, SOB or defibrillator discharging. Appetite is good and he isn't nauseated. He is participating in therapy. He is able to go to the bathroom by himself now. Allergies: Adhesive BP 101/59 Pulse 60 Temp 36.7 C (98.1 F) Resp 16 SpO2 95% Physical Exam Constitutional: General: He is not in acute distress. Comments: He is in room any recliner watching TV. Pleasant Cardiovascular: Rate and Rhythm: Normal rate and regular rhythm. Pulmonary: Effort: No respiratory distress. Breath sounds: Normal breath sounds. No wheezing or rales. Abdominal: General: Bowel sounds are normal. Palpations: Abdomen is soft. Tenderness: There is no abdominal tenderness. Comments: Tube draining green bile fluid Musculoskeletal: Right lower le+ Pitting Edema present. Left lower le+ Pitting Edema present. Comments: With compression has Neurological: Mental Status: He is alert. Psychiatric: Behavior: Behavior is cooperative. Summary / Assessment / Plan 1. Choledocholithiasis 2. Acute cholecystitis 3. Chronic systolic congestive heart failure (CMS-HCC) 4. Coronary artery disease involving [place] coronary artery of [place] heart without angina pectoris Medically stable. Continue therapy to reach maximum improvement. ELECTRONICALLY SIGNED BY: Agus Nation DO documented in this encounterTriHealth [facility]11-12-2024 Telephone encounter Note* Telephone Encounter - Ranjan Bryant MD - 06/14/2024 7:34 AM EST With brigitte [facility]11-12-2024 Miscellaneous Notes* Telephone Encounter - Ranjan Bryant MD - 06/14/2024 7:34 AM EST With brigitte documented in this encounterMartins Ferry Hospital11-08-2024 History of Present illness Narrative* Agus Nation DO - 06/10/2024 11:59 PM EST Patient Name: Shawna Hernandes Date of : 1945 Date of Service: 06/12/2024 Facility: [facility] Type of Visit: Skilled Visit Subjective Shawna Hernandes is a 79 y.o. male seen today at assisted facility for therapy visit. Shawna has been nauseated this afternoon and evening. He did not eat much of his dinner. He had an antacid around 3:30 and then a Zofran around dinner time. He ate breakfast and lunch earlier today. Hesaw the surgeon on Thursday and goes back again this coming Thursday. They think there is another stone in there. They may do a conventional surgery which is easier heart. He denies pain. His defibrillator has not discharged recently. He is participating in therapy and may go home soon. Allergies: Adhesive BP 106/69 Pulse 60 Temp 36.4 C (97.6 F) Resp 16 Wt 85.5 kg (188 lb 9.6 oz) SpO2 96% BMI30.44 kg/m Physical Exam Constitutional: General: He is not in acute distress. Comments: He is in room any recliner watching TV. Pleasant Cardiovascular: Rate and Rhythm: Normal rate and regular rhythm. Pulmonary: Effort: No respiratory distress. Breath sounds: Normal breath sounds. No wheezing or rales. Abdominal: General: Bowel sounds are normal. Palpations: Abdomen is soft. Tenderness: There is no abdominal tenderness. Comments: Tbe draining green bile fluid Musculoskeletal: Right lower le+ Pitting Edema present. Left lower le+ Pitting Edema present. Comments: With compression has Neurological: Mental Status: He is alert. Psychiatric: Behavior: Behavior is cooperative. Assessment/Plan Summary / Assessment / Plan 1. Acute cholecystitis 2. Chronic systolic congestive heart failure (CMS-HCC) 3. Ischemic cardiomyopathy 4. Nausea Use p.r.n. antiemetics and antacids. Monitor for new symptoms. Otherwise stable. Continue current regimen. All medications reviewed and are medically necessary ELECTRONICALLY SIGNED BY: Agus Nation DO documented in this encounterTriHealth [facility]11-05-2024 Telephone encounter Note* Telephone Encounter - Yolande Nielson RN - 06/07/2024 4:04 PM EST Patient was seen today for a surgical consult. He was scheduled for surgery on 07/13. He will have preops on 07/08 while he is here to see his archives technician. I left a message with the facility's staff for the nurse to call me back to discuss surgery date. Left my cell phone number [facility]11-05-2024 Miscellaneous Notes* Telephone Encounter - Yolande Nielson RN - 06/07/2024 4:04 PM EST Patient was seen today for a surgical consult. He was scheduled for surgery on 07/13. He will have preops on 07/08 while he is here to see his archives technician. I left a message with the facility's staff for the nurse to call me back to discuss surgery date. Left my cell phone number [facility] of Present illness Narrative* Escobar Givens MD - 06/07/2024 10:25 AM EST [facility] PROGRESS NOTE Patient name: Shawna Hernandes Date of : 1945 CHIEF COMPLAINT: Cholecystitis s/p percutaneous cholecystostomy HISTORY OF PRESENT ILLNESS: Shawna Hernandes is a 79 year old male with a PMHx of BPH, HTN, Afib s/p ICD, HFrEF (15% on 03/21), CAD s/p stents (03/12/23, on asa and plavix), CKD, and COPD who originally presented on 03/21 with acute cholecystitis and underwent placement of percutaneous cholecystostomy drain. He was readmitted from 05/01-05/10 for septic shock secondary to ascending cholangitis where he underwent perc roula drain exchange with IR on 05/05. During this procedure, he was found to have obstructed flow from the CBD to the duodenum. The case was discussed with Dr. Bryant who felt that the decreased flow was related to inflammation from the gallbladder and decreased bile flow so ERCP was not done. He was discharged on a course of ciprofloxacin and augmentin. During that admission, patient had cardiology evaluation and patient risk stratification for surgery was initiated with a PET stress test showing no ischemia. At that time, cardiology reported an elevated but not prohibitiverisk for proceeding with cholecystectomy. Since discharge, he has been doing well. He has had no fevers, chills, or recurrence in cholangitissymptoms. He has been tolerating a diet with no nausea or vomiting. Having regular bowel movements.No further pain. He does continue to have bilious output in his drain that gets emptied every shift. Current home medications: Current Outpatient Medications Medication Sig acetaminophen (TYLENOL) 500 mg tablet Take 2 tablets by mouth every 8 hours as needed for pain. insulin lispro 100 unit/mL injection Inject 0-5 Units subcutaneously with meals and at bedtime. (Patient not taking: Reported on 06/07/2024) amiodarone (PACERONE) 200 mg tablet Take 1 tablet by mouth once daily. aspirin 81 mg chewable tablet Take 1 tablet by mouth once daily. atorvastatin (LIPITOR) 80 mg tablet Take 1 tablet by mouth once daily. bumetanide (BUMEX) 0.5 mg tablet Take 1 tablet by mouth once daily. calcium carbonate (TUMS) 500 mg chew Take 2 tablets by mouth two times a day as needed. clopidogrel (PLAVIX) 75 mg tablet Take 1 tablet by mouth once daily. empagliflozin (JARDIANCE) 10 mg tablet Take 1 tablet by mouth daily with breakfast. ipratropium-albuterol (DUONEB) 0.5 mg-3 mg(2.5 mg base)/3 mL nebu Inhale 3 mL as instructed every 4hours as needed for wheezing/shortness of breath. levothyroxine (SYNTHROID) 50 mcg tablet Take 1 tablet by mouth daily before breakfast. melatonin 1 mg tablet Take 1 tablet by mouth daily at bedtime. mexiletine (MEXITIL) 150 mg capsule Take 1 capsule by mouth three times a day. ondansetron orally disintegrating (ZOFRAN ODT) 4 mg disintegrating tablet Take 1-2 tablets by mouthevery 8 hours as needed for nausea/vomiting. pantoprazole DR (PROTONIX) 40 mg tablet Take 1 tablet by mouth two times a day. sacubitril-valsartan (ENTRESTO) 24-26 mg tablet Take 1 tablet by mouth two times a day. senna (SENOKOT) 8.6 mg tab 1 tablet by ORAL/FEEDING TUBE route two times a day. No current facility-administered medications for this visit. PHYSICAL EXAM: BP 105/58 Pulse 60 Temp (Src) 96.6 (Temporal) Resp 16 Wt 186 lb 11.7 oz (84.7kg) SpO2 100% General: Seated in bedside wheelchair. No acute distress. HEENT: Normocephalic. Atraumatic. Heart: Regular rate. Lungs: Unlabored respirations on room air. Symmetric chest rise. Abdomen: Soft, nontender, nondistended. Perc roula drain in place with bilious output. Extremities: Warm and well-perfused. No gross deformity. No lower extremity edema. Neuro: Alert and oriented. Moves all extremities. DATA REVIEW: Recent Labs: 05/10: Tbili 0.6, ALP 161, ALT 73, AST 74 Imaging: CT AP 03/21: IMPRESSION: Acute cholecystitis, similar to CT 03/16/2024. No organized pericholecystic collection. CT AP 05/01: IMPRESSION: No acute finding in the abdomen and pelvis. Decompressed gallbladder with cholecystostomy tube in place and improved pericholecystic inflammatory changes since 03/20/2024. No pericholecystic fluid collection. RUQ US 05/06: IMPRESSION: Gallbladder collapsed around the cholecystostomy tube with persistent gallbladder wall irregularity. ASSESSMENT & PLAN: Shawna Hernandes is a 79 year old male with a PMHx of BPH, HTN, Afib s/p ICD, HFrEF (15% on 03/21),CAD s/p stents (03/12/23, on asa and plavix), CKD, and COPD who originally presented on 03/21 with acute cholecystitis and underwent placement of percutaneous cholecystostomy drain. He was readmitted from 05/01- 05/10 for septic shock secondary to ascending cholangitis where he underwent perc roula drain exchange with IR on 05/05. During this procedure, he was found to have obstructed flow from the CBDto the duodenum. The case was discussed with Dr. Bryant who felt that the decreased flow was related to inflammation from the gallbladder and decreased bile flow so ERCP was not done. He has been doing well since then with no recurrence in symptoms. Perc roula drain does continue to have bilious drainage suggesting that the cystic duct is patent but there is likely still a distal CBD obstruction. We discussed that the next step would be to proceed with cholecystectomy. Given the CBD filling defect, patient would need either ERCP before the procedure or IOC. Will likely plan to admit the patient 2 days prior to surgery for the ERCP and then proceed with cholecystectomy. Prior to surgery, will have the patient see cardiology and anesthesiology for evaluation and pre-operative clearance. Patient seen and discussed with Dr. Givens. Alejandra Moran MD General Surgery Resident, PGY-1 06/07/2024 [facility] STAFF PHYSICIAN NOTE OF PERSONAL INVOLVEMENT IN CARE I have reviewed the progress note obtained and documented by the resident and I personally participated in the villela components. I have discussed the case and management of the patient's care. The following comments revise or confirm relevant villela components of the note. IMPRESSION: This is a 79 year old with history of acute cholecystitis with perc roula tube in place. Direct review of last cholangiogram suspicious for choledocholithiasis. Severe cardiac comorbidities that make him high risk for surgery PLAN: Proceed with tube change He has follow up with cardiology Will need CBD clearance (discuss with Dr. Bryant re pre-op ERCP v intra-op CBD clearance) Schedule for lap, possible (high chance) open cholecystectomy Pre-op bowel prep- colon seems drawn into inflammatory process Medical Decision Making: Problems: High: Illness/injury w/ threat to life/body function and Chronic illness with severe change Data: Unique test result(s) reviewed: 1 Risk: High: High risk from testing/treatment Medical Decision Making Level: 5 - High Escobar Givens MD documented in this [facility] History of Present illness Narrative* Agus Nation, - 06/03/2024 11:59 PM EDT Patient Name: Shawna Hernandes Date of : 1945 Date of Service: 06/03/2024 Facility: [facility] Type of Visit: Skilled Visit Subjective Shawna Hernandes is a 79 y.o. male seen today at assisted facility for therapy visit. Nurses report that he has had increased anxiety in the evenings and nighttime. He says he is sleeping well. His defibrillator went off 3 times last Thursday but none since. He saw a archives technician and there was not much more they can do. He sees the surgeon on Thursday in [place] to discuss next steps. He is participating in therapy. He feels he is getting stronger. His appetite is okay. He denies pain. Allergies: Adhesive BP 108/67 Pulse 60 Temp 36.5 C (97.7 F) Resp 16 SpO2 96% Physical Exam Vitals reviewed. Constitutional: General: He is not in acute distress. Comments: Pleasant, cooperative in his room and recliner watching TV Cardiovascular: Rate and Rhythm: Normal rate and regular rhythm. Pulmonary: Effort: Pulmonary effort is normal. No respiratory distress. Breath sounds: Normal breath sounds. No wheezing, rhonchi or rales. Abdominal: General: Bowel sounds are normal. Palpations: Abdomen is soft. Tenderness: There is abdominal tenderness. Comments: Tube draining dark green fluid Musculoskeletal: Right lower le+ Pitting Edema present. Left lower le+ Pitting Edema present. Comments: With compression hose on Neurological: Mental Status: He is alert. Psychiatric: Behavior: Behavior is cooperative. Assessment/Plan Summary / Assessment / Plan 1. Acute cholecystitis 2. Chronic systolic congestive heart failure (CMS-HCC) 3. Presence of automatic cardioverter/defibrillator (AICD) 4. Ischemic cardiomyopathy Continue therapy to reach maximum improvement. Continue other orders as directed. He defers anxiolytic medication Follow up with specialists. ELECTRONICALLY SIGNED BY: Agus Nation DO documented in this encounterTri[facility] History of Present illness Narrative* Ranjan Quiles MD - 05/27/2024 2:20 PM EDT Subjective Shawna Hernandes is a 79 y.o. male Chief Complaint Follow-up HPI Patient is in the office for follow-up accompanied by his [facility] where [facility] is [facility] after admission to the [facility] for septic shock and acute cholecystitis, he is stillpending surgery which will be scheduled in the near future. He is currently stable from the cardiacstandpoint but had AICD discharge today likely caused by ventricular tachycardia. He is already on amiodarone and mexiletine. He has lower extremity edema and his diuretic therapy was intensified. His heart rate in the upper 80s and because of this I will increase his carvedilol up to 18.75 mg twice daily. His pressure is good enough to tolerate the increase in the medicine. He denies any angina and no orthopnea PND, no fever and no abdominal pain nausea or vomiting. ASSESSMENT AND PLAN: 1. Ischemic cardiomyopathy stage C, functional class II. Ejection fraction 15- 20% by echocardiogramNovember 2022, cardiac catheterization March 2023 revealed severe three-vessel disease and medical therapy was recommended. Due to increase in heart rate and his lower extremity edema I increased the carvedilol and Bumex 2. Automated implantable cardioverter defibrillator in place, AICD discharge happened today with noconsequences. He will be evaluated in the pacemaker clinic to assess the nature of the shot. 3. Hyperlipidemia, on statin therapy. Will continue to follow lipid profile 4. High-risk medications with amiodarone and mexiletine, which will be monitored closely. No toxicities 5. Acute cholecystitis leading to septic shock recently requiring prolonged therapy at the [facility] with surgery pending in the near future 6. Remote history of atrial fibrillation with amiodarone now on board to reduce the chances of thisbecoming affective. 7. Class I obesity. Encouraged the patient to drop his weight further with diet and exercise. 8. Stage III chronic kidney disease being monitored, creatinine April 2024 1.2 mg/dL Review of Systems All other systems reviewed and are negative. Vitals: 05/27/24 1425 BP: 116/62 BP Location: Right arm Patient Position: Sitting Pulse: 86 Weight: 86.6 kg (191 lb) Height: 1.676 m (5' 6 ) EKG done in office today Objective Physical Exam Constitutional: Appearance: Normal appearance. HENT: Nose: Nose normal. Neck: Vascular: No carotid bruit. Cardiovascular: Rate and Rhythm: Normal rate. Pulses: Normal pulses. Heart sounds: Normal heart sounds. Pulmonary: Effort: Pulmonary effort is normal. Abdominal: General: Bowel sounds are normal. Palpations: Abdomen is soft. Musculoskeletal: General: Normal range of motion. Cervical back: Normal range of motion. Right lower le+ Edema present. Left lower le+ Edema present. Skin: General: Skin is warm and dry. Neurological: General: No focal deficit present. Mental Status: He is alert. Psychiatric: Mood and Affect: Mood normal. Behavior: Behavior normal. Thought Content: Thought content normal. Judgment: Judgment normal. Allergies Patient has no known allergies. Current Medications Current Outpatient Medications: acetaminophen (Tylenol) 500 mg tablet, Take by mouth every 6 hours if needed for mild pain (1 - 3)., Disp: , Rfl: albuterol 5 mg/mL nebulizer solution, Take 0.5 mL (2.5 mg) by nebulization every 6 hours if needed for wheezing., Disp: , Rfl: amiodarone (Pacerone) 200 mg tablet, take 1 tablet by mouth daily, Disp: 90 tablet, Rfl: 1 aspirin 81 mg EC tablet, Take 1 tablet (81 mg) by mouth once daily., Disp: , Rfl: atorvastatin (Lipitor) 80 mg tablet, take 1 tablet by mouth daily, Disp: 90 tablet, Rfl: 3 clopidogrel (Plavix) 75 mg tablet, Take 1 tablet (75 mg) by mouth once daily., Disp: 90 tablet, Rfl: 3 Jardiance 10 mg, Take 1 tablet (10 mg) by mouth once daily in the morning. Take before meals., Disp: , Rfl: levothyroxine (Synthroid, Levoxyl) 50 mcg tablet, Take 1 tablet (50 mcg) by mouth once daily. as directed, Disp: 90 tablet, Rfl: 1 melatonin 1 mg tablet,chewable, Chew., Disp: , Rfl: mexiletine (Mexitil) 150 mg capsule, Take 1 capsule (150 mg) by mouth 3 times a day., Disp: 270 capsule, Rfl: 3 nitroglycerin (Nitrostat) 0.4 mg SL tablet, Place 1 tablet (0.4 mg) under the tongue every 5 minutes if needed for chest pain., Disp: , Rfl: ondansetron (Zofran) 4 mg tablet, Take 1 tablet (4 mg) by mouth every 8 hours if needed for nausea or vomiting., Disp: , Rfl: pantoprazole (ProtoNix) 20 mg EC tablet, Take 1 tablet (20 mg) by mouth 2 times a day., Disp: , Rfl: sacubitriL-valsartan (Entresto) 49-51 mg tablet, Take 1 tablet by mouth 2 times a day., Disp: 180 tablet, Rfl: 3 bumetanide (Bumex) 1 mg tablet, Take 2 tablets (2 mg) by mouth once daily., Disp: 180 tablet, Rfl: 3 carvedilol (Coreg) 12.5 mg tablet, Take 1.5 tablets by mouth twice a day, Disp: 60 tablet, Rfl: 11 carvedilol (Coreg) 25 mg tablet, Take 0.5 tablets (12.5 mg) by mouth 2 times a day., Disp: , Rfl: magnesium oxide (Mag-Ox) 400 mg (241.3 mg magnesium) tablet, TAKE 1 TABLET EVERY DAY WITH FOOD, Disp: 90 tablet, Rfl: 0 Assessment/Plan 1. AICD discharge 2. Chronic systolic heart failure 3. Paroxysmal ventricular tachycardia (Multi) 4. Cardiomyopathy, ischemic bumetanide (Bumex) 1 mg tablet 5. High risk medication use 6. Essential hypertension, benign bumetanide (Bumex) 1 mg tablet carvedilol (Coreg) 12.5 mg tablet 7. Paroxysmal atrial fibrillation (Multi) Follow Up In Cardiology ECG 12 Lead 8. Never smoked cigarettes 9. BMI 30.0-30.9,adult 10. Cholecystitis 11. Bilateral lower extremity edema 12. 3-vessel coronary artery disease 13. Dyslipidemia 14. Obesity, Class I, BMI 30-34.9 15. Stage 3a chronic kidney disease (Multi) Scribe Attestation By signing my name below, I, Frannie Mejia RN , Scribe attest that this documentation has been prepared under the direction and in the presence of Ranjan Quiles MD. Provider Attestation - Scribe documentation All medical record entries made by the Scribe were at my direction and personally dictated by me. Ihave reviewed the chart and agree that the record accurately reflects my personal performance of the history, physical exam, discussion and plan. documented in this [facility] Work Phone: [phone]) 750-100810-25-2024 Instructions* Patient Instructions* Frannie Bergman RN - 05/27/2024 2:20 PM EDT Please bring all medicines, vitamins, and herbal supplements with you when you come to the office. Prescriptions will not be filled unless you are compliant with your follow up appointments or have a follow up appointment scheduled as per instruction of your physician. Refills should be requested at the time of your visit. Fall Prevention Education Given BMI was above normal measurement. Current weight: 86.6 kg (191 lb) Weight change since last visit (-) denotes wt loss -13.2 lbs Weight loss needed to achieve BMI 25: 36.4 Lbs Weight loss needed to achieve BMI 30: 5.5 Lbs Provided instructions on dietary changes Provided instructions on exercise. Pacemaker/Defibrillator follow up per routine documented in this [facility] Work Phone: [phone]) 708-698610-23-2024 Hospital Discharge instructions Patient Education 05/25/2024 11:53:18 Benign Prostatic Hyperplasia Benign Prostatic Hyperplasia Benign prostatic hyperplasia (BPH) is an enlarged prostate gland that is caused by the normal agingprocess. The prostate may get bigger as a man gets older. The condition is not caused by cancer. The prostate is a walnut-sized gland that is involved in the production of semen. It is located in front of the rectum and below the bladder. The bladder stores urine. The urethra carries stored urine ou t of the body. An enlarged prostate can press on the urethra. This can make it harder to pass urine. The buildup of urine in the bladder can cause infection. Back pressure and infection may progress to bladder damage and kidney (renal) failure. What are the causes? This condition is part of the normal aging process. However, not all men develop problems from thiscondition. If the prostate enlarges away from the urethra, urine flow will not be blocked. If it enlarges toward the urethra and compresses it, there will be problems passing urine. What increases the risk? This condition is more likely to develop in men older than 50 years. What are the signs or symptoms? Symptoms of this condition include: Getting up often during the night to urinate. Needing to urinate frequently during the day. Difficulty starting urine flow. Decrease in size and strength of your urine stream. Leaking (dribbling) after urinating. Inability to pass urine. This needs immediate treatment. Inability to completely empty your bladder. Pain when you pass urine. This is more common if there is also an infection. Urinary tract infection (UTI). How is this diagnosed? This condition is diagnosed based on your medical history, a physical exam, and your symptoms. Tests will also be done, such as: A post-void bladder scan. This measures any amount of urine that may remain in your bladder after you finish urinating. A digital rectal exam. In a rectal exam, your health care provider checks your prostate by putting a lubricated, gloved finger into your rectum to feel the back of your prostate gland. This exam detects the size of your gland and any abnormal lumps or growths. An exam of your urine (urinalysis). A prostate specific antigen (PSA) screening. This is a blood test used to screen for prostate cancer. An ultrasound. This test uses sound waves to electronically produce a picture of your prostate gland. Your health care provider may refer you to a specialist in kidney and prostate diseases (urologist). How is this treated? Once symptoms begin, your health care provider will monitor your condition (active surveillance or watchful waiting). Treatment for this condition will depend on the severity of your condition. Treatment may include: Observation and yearly exams. This may be the only treatment needed if your condition and symptoms are mild. Medicines to relieve your symptoms, including: ?Medicines to shrink the prostate. ?Medicines to relax the muscle of the prostate. Surgery in severe cases. Surgery may include: ?Prostatectomy. In this procedure, the prostate tissue is removed completely through an open incision or with a laparoscope or robotics. ?Transurethral resection of the prostate (TURP). In this procedure, a tool is inserted through the opening at the tip of the penis (urethra). It is used to cut away tissue of the inner core of the prostate. The pieces are removed through the same opening of the penis. This removes the blockage. ?Transurethral incision (TUIP). In this procedure, small cuts are made in the prostate. This lessens the prostate's pressure on the urethra. ?Transurethral microwave thermotherapy (TUMT). This procedure uses microwaves to create heat. The heat destroys and removes a small amount of prostate tissue. ?Transurethral needle ablation (TUNA). This procedure uses radio frequencies to destroy and remove a small amount of prostate tissue. ?Interstitial laser coagulation (ILC). This procedure uses a laser to destroy and remove a small amount of prostate tissue. ?Transurethral electrovaporization (TUVP). This procedure uses electrodes to destroy and remove a small amount of prostate tissue. ?Prostatic urethral lift. This procedure inserts an implant to push the lobes of the prostate away from the urethra. Follow these instructions at home: Take atli-eux-xdgwraw and prescription medicines only as told by your health care provider. Monitor your symptoms for any changes. Contact your health care provider with any changes. Avoid drinking large amounts of liquid before going to bed or out in public. Avoid or reduce how much caffeine or alcohol you drink. Give yourself time when you urinate. Keep all follow-up visits. This is important. Contact a health care provider if: You have unexplained back pain. Your symptoms do not get better with treatment. You develop side effects from the medicine you are taking. Your urine becomes very dark or has a bad smell. Your lower abdomen becomes distended and you have trouble passing urine. Get help right away if: You have a fever or chills. You suddenly cannot urinate. You feel light-headed or very dizzy, or you faint. There are large amounts of blood or clots in your urine. Your urinary problems become hard to manage. You develop moderate to severe low back or flank pain. The flank is the side of your body between the ribs and the hip. These symptoms may be an emergency. Get help right away. Call 911. Do not wait to see if the symptoms will go away. Do not drive yourself to the hospital. Summary Benign prostatic hyperplasia (BPH) is an enlarged prostate that is caused by the normal aging process. It is not caused by cancer. An enlarged prostate can press on the urethra. This can make it hard to pass urine. This condition is more likely to develop in men older than 50 years. Get help right away if you suddenly cannot urinate. This information is not intended to replace advice given to you by your health care provider. Make sure you discuss any questions you have with your health care provider. Document Revised: 02/05/2022 Document Reviewed: 02/05/2022 [employer] Patient Education 2023 [employer]. Follow Up Care 05/20/2023 11:35:33 With:Vlad MINER, IRINA Batista, URO Address: [address] [place] [address] [phone] When: only if needed [facility] 10-23-2024 NotePatient Education Urology Benign Prostatic Hyperplasia Benign prostatic hyperplasia (BPH) is an enlarged prostate gland that is caused by the normal agingprocess. The prostate may get bigger as a man gets older. The condition is not caused by cancer. The prostate is a walnut-sized gland that is involved in the production of semen. It is located in front of the rectum and below the bladder. The bladder stores urine. The urethra carries stored urine ou t of the body. An enlarged prostate can press on the urethra. This can make it harder to pass urine. The buildup of urine in the bladder can cause infection. Back pressure and infection may progress to bladder damage and kidney (renal) failure. What are the causes? This condition is part of the normal aging process. However, not all men develop problems from thiscondition. If the prostate enlarges away from the urethra, urine flow will not be blocked. If it enlarges toward the urethra and compresses it, there will be problems passing urine. What increases the risk? This condition is more likely to develop in men older than 50 years. What are the signs or symptoms? Symptoms of this condition include: ??? Getting up often during the night to urinate. ??? Needing to urinate frequently during the day. ??? Difficulty starting urine flow. ??? Decrease in size and strength of your urine stream. ??? Leaking (dribbling) after urinating. ??? Inability to pass urine. This needs immediate treatment. ??? Inability to completely empty your bladder. ??? Pain when you pass urine. This is more common if there is also an infection. ??? Urinary tract infection (UTI). How is this diagnosed? This condition is diagnosed based on your medical history, a physical exam, and your symptoms. Tests will also be done, such as: ??? A post-void bladder scan. This measures any amount of urine that may remain in your bladder after you finish urinating. ??? A digital rectal exam. In a rectal exam, your health care provider checks your prostate by putting a lubricated, gloved finger into your rectum to feel the back of your prostate gland. This exam detects the size of your gland and any abnormal lumps or growths. ??? An exam of your urine (urinalysis). ??? A prostate specific antigen (PSA) screening. This is a blood test used to screen for prostate cancer. ??? An ultrasound. This test uses sound waves to electronically produce a picture of your prostate gland. Your health care provider may refer you to a specialist in kidney and prostate diseases (urologist). How is this treated? Once symptoms begin, your health care provider will monitor your condition (active surveillance or watchful waiting). Treatment for this condition will depend on the severity of your condition. Treatment may include: ??? Observation and yearly exams. This may be the only treatment needed if your condition and symptoms are mild. ??? Medicines to relieve your symptoms, including: ? Medicines to shrink the prostate. ? Medicines to relax the muscle of the prostate. ??? Surgery in severe cases. Surgery may include: ? Prostatectomy. In this procedure, the prostate tissue is removed completely through an open incision or with a laparoscope or robotics. ? Transurethral resection of the prostate (TURP). In this procedure, a tool is inserted through theopening at the tip of the penis (urethra). It is used to cut away tissue of the inner core of the prostate. The pieces are removed through the same opening of the penis. This removes the blockage. ? Transurethral incision (TUIP). In this procedure, small cuts are made in the prostate. This lessens the prostate's pressure on the urethra. ? Transurethral microwave thermotherapy (TUMT). This procedure uses microwaves to create heat. The heat destroys and removes a small amount of prostate tissue. ? Transurethral needle ablation (TUNA). This procedure uses radio frequencies to destroy and removea small amount of prostate tissue. ? Interstitial laser coagulation (ILC). This procedure uses a laser to destroy and remove a small amount of prostate tissue. ? Transurethral electrovaporization (TUVP). This procedure uses electrodes to destroy and remove a small amount of prostate tissue. ? Prostatic urethral lift. This procedure inserts an implant to push the lobes of the prostate awayfrom the urethra. Follow these instructions at home: ??? Take qrot-eax-zczffhs and prescription medicines only as told by your health care provider. ??? Monitor your symptoms for any changes. Contact your health care provider with any changes. ??? Avoid drinking large amounts of liquid before going to bed or out in public. ??? Avoid or reduce how much caffeine or alcohol you drink. ??? Give yourself time when you urinate. ??? Keep all follow-up visits. This is important. Contact a health care provider if: ??? You have unexplained back pain. ??? Your symptoms do not get (more content not included)...[facility]10-18-2024 History of Present illness Narrative* Agus Nation, DO - 05/20/2024 11:59 PM EDT Patient Name: Shawna Hernandes Date of : 1945 Date of Service: 05/20/2024 Facility: [facility] Type of Visit: Skilled Visit Subjective Shawna Hernandes is a 79 y.o. male seen today at assisted facility for therapy visit. Shawna is participating in therapy and improving. No new problems reported by staff or patient. Pain is adequately controlled. He has just a little at T- tube site. Appetite okay. BMs normal. Drain with green bile fluid. No CP or SOB. Allergies: Adhesive Code Status: FULL CODE BP 144/80 Pulse 74 Temp 36.6 C (97.8 F) Resp 16 SpO2 96% Physical Exam Vitals reviewed. Constitutional: General: He is not in acute distress. Appearance: He is not ill-appearing. Comments: He is sitting in his chair watching TV HENT: Head: Normocephalic. Eyes: General: No scleral icterus. Cardiovascular: Rate and Rhythm: Normal rate and regular rhythm. Pulses: Normal pulses. Heart sounds: Normal heart sounds. No murmur heard. Pulmonary: Effort: No respiratory distress. Breath sounds: Normal breath sounds. No wheezing, rhonchi or rales. Abdominal: General: Bowel sounds are normal. There is no distension. Palpations: Abdomen is soft. There is no mass. Tenderness: There is no abdominal tenderness. Hernia: No hernia is present. Comments: Tube draining green watery fluid Musculoskeletal: Cervical back: Neck supple. Right lower le+ Pitting Edema present. Left lower le+ Pitting Edema present. Comments: Wearing DRAKE hose Lymphadenopathy: Cervical: No cervical adenopathy. Neurological: General: No focal deficit present. Mental Status: He is alert and oriented to person, place, and time. Psychiatric: Mood and Affect: Mood and affect normal. Speech: Speech normal. Behavior: Behavior is cooperative. Summary / Assessment / Plan 1. Acute cholecystitis 2. Presence of automatic cardioverter/defibrillator (AICD) 3. Chronic obstructive pulmonary disease, unspecified COPD type ([facility]) 4. 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 Chronic systolic congestive heart failure ([facility]) 6. Paroxysmal atrial fibrillation ([facility]) 7. Anemia in chronic kidney disease (CODE) 8. Stage 3b chronic kidney disease ([facility]) 9. Ischemic cardiomyopathy He is medically stable. Continue therapy and other orders. Will follow ELECTRONICALLY SIGNED BY: Agus Nation DO documented in this encounterClermont County HospitalStudio [id number] History of Present illness Narrative* Agus Nation DO - 05/11/2024 11:59 PM EDT Patient Name: Shawna Hernandes Date of : 1945 Date of Service: 05/11/2024 Facility: [facility] Type of Visit: Admission H&P Subjective Shawna Hernandes is a 79 y.o. male seen today at assisted facility for No chief complaint on file. . HPI Past Medical History: Diagnosis Date Arthritis Disease of thyroid gland Hypertension Lumbosacral radiculopathy at S1 moderate B/L by EMG Myocardial infarction ([facility] [place] Schatzki's ring 10/21/2023 Stroke ([facility] [place] Past Surgical History: Procedure Laterality Date CARDIAC CATHETERIZATION CARDIAC SURGERY ESOPHAGOGASTRODUODENOSCOPY 10/20/2023 Dr. Kelley TONSILLECTOMY Family History Problem Relation Age of Onset Dementia Mother in her early 90s Heart attack Father 50 Heart disease Sister High Cholesterol Sister Heart disease Brother stents Heart disease Brother CABG-in his 60s Heart disease Paternal Grandfather Current Outpatient Medications Medication Sig Dispense Refill amiodarone (PACERONE) 200 mg tablet Take 1 tablet (200 mg total) by mouth in the morning. aspirin 81 mg Take 1 tablet (81 mg total) by mouth in the morning. 150 tablet 2 atorvastatin (LIPITOR) 80 mg tablet b complex vitamins tablet Take 1 tablet by mouth in the morning. biotin (BIOTIN) 5 mg capsule Take 1 capsule (5 mg total) by mouth in the morning. 30 capsule 0 bumetanide (BUMEX) 1 mg tablet carvediloL (COREG) 25 mg tablet Take 1 tablet (25 mg total) by mouth in the morning and 1 tablet (25 mg total) before bedtime. clopidogreL (PLAVIX) 75 mg tablet Take 1 tablet (75 mg total) by mouth in the morning. 90 tablet 3 empagliflozin (JARDIANCE) 10 mg tablet tablet take 1 tablet by mouth IN THE MORNING 30 tablet 5 famotidine (PEPCID) 20 mg tablet Take 1 tablet (20 mg total) by mouth in the morning and 1 tablet (20 mg total) before bedtime. folic acid (FOLVITE) 400 MCG tablet Take 1 tablet (400 mcg total) by mouth in the morning. 100 tablet 3 levothyroxine (SYNTHROID, LEVOTHROID) 50 MCG tablet magnesium oxide (MAGOX) 400 mg tablet Take 1 tablet (400 mg total) by mouth in the morning. mexiletine (MEXITIL) 150 mg capsule Take 1 capsule (150 mg total) by mouth 3 (three) times a day. nitroglycerin (NITROSTAT) 0.[address] 1 tablet (0.4 mg total) under the tongue every 5 (five) minutes as needed for chest pain. 25 tablet 3 omega 7-jka-jkc-fish oil 60-90-500 mg capsule,delayed release(DR/EC) Take 1 capsule by mouth in themorning and 1 capsule before bedtime. 100 capsule 0 pantoprazole (PROTONIX) 20 mg EC tablet take 1 tablet by mouth every morning 30 tablet 1 promethazine (PHENERGAN) 25 mg tablet Take 1 tablet (25 mg total) by mouth every 6 (six) hours as needed for nausea or vomiting. 30 tablet 1 sacubitriL-valsartan (ENTRESTO) 49-51 mg tablet Take 1 tablet by mouth in the morning and 1 tablet before bedtime. sodium chloride (NORMAL SALINE FLUSH) injection Infuse 10 mL into a venous catheter in the morning and 10 mL before bedtime. 1000 mL 1 spironolactone (ALDACTONE) 25 mg tablet Take 0.5 tablets (12.5 mg total) by mouth. vit A,C and V-zgcfrb-rgxphjqf (EYE HEALTH PLUS LUTEIN) 300 mcg-200 mg-27 mg-2 mg tablet Take 1 tablet by mouth in the morning. No current facility-administered medications for this visit. Allergies: Adhesive Code Status: FULL CODE The following portions of the patient's history were reviewed and updated as appropriate: allergies, current medications, past family history, past medical history, past social history, past surgicalhistory, problem list, and medication reconciliation was completed including current medication andpost discharge medication. Review of Systems Objective BP 112/68 Pulse 76 Temp 36.8 C (98.3 F) Wt 84 kg (185 lb 3.2 oz) SpO2 97% BMI 29.89 kg/m Physical Exam Vitals reviewed. Exam conducted with a charge loader present (). Constitutional: General: He is not in acute distress. Appearance: He is not ill-appearing. HENT: Head: Normocephalic. Eyes: General: No scleral icterus. Cardiovascular: Rate and Rhythm: Normal rate and regular rhythm. Pulses: Normal pulses. Heart sounds: Normal heart sounds. No murmur heard. Pulmonary: Effort: No respiratory distress. Breath sounds: Normal breath sounds. No wheezing, rhonchi or rales. Abdominal: General: Bowel sounds are normal. There is no distension. Palpations: Abdomen is soft. There is no mass. Tenderness: There is no abdominal tenderness. Hernia: No hernia is present. Comments: Tube draining green watery bile Musculoskeletal: Cervical back: Neck supple. Right lower leg: No edema. Left lower leg: No edema. Lymphadenopathy: Cervical: No cervical adenopathy. Neurological: General: No focal deficit present. Mental Status: He is alert and oriented to person, place, and time. Psychiatric: Attention and Perception: Attention normal. Mood and Affect: Mood and affect normal. Speech: Speech normal. Behavior: Behavior normal. Behavior is cooperative. Thought Content: Thought content normal. Cognition and Memory: Cognition normal. Judgment: Judgment normal. Assessment/Plan Summary / Assessment / Plan 1. Acute cholecystitis 2. Chronic obstructive pulmonary disease, unspecified COPD type ([facility]) 3. Hypertensive heart and chronic kidney disease with heart failure and stage 1 through stage 4 chronic kidney disease, or chronic kidney disease ([facility]-HCC) 4. Chronic systolic congestive heart failure ([facility]-HCC) 5. Anemia in chronic kidney disease (CODE) 6. Stage 3b chronic kidney disease ([facility]-HCC) 7. Paroxysmal atrial fibrillation ([facility]-HCC) 8. Hyperlipidemia, unspecified hyperlipidemia type 9. Ischemic cardiomyopathy 10. BPH with obstruction/lower urinary tract symptoms 11. Personal history of transient ischemic attack (TIA), and cerebral infarction without residual deficits 12. Presence of automatic cardioverter/defibrillator (AICD) Admit to [facility] for therapies. Continue current regimen. F/U with surgeon as directed Full code. Fair rehab potential. Will follow ELECTRONICALLY SIGNED BY: Agus Nation DO documented in this encounterTriHealth [facility] Note [facility]10-06-[facility]-04-[facility]-04-20[facility]10-03-2024 Telephone encounter Note* Telephone Encounter - Tia Saldivar - 05/05/2024 4:16 PM EDT CURRENT INPT SCHD 06/14 [facility]10-03-2024 Miscellaneous Notes* Telephone Encounter - Tia Saldivar - 05/05/2024 4:16 PM EDT CURRENT INPT SCHD 06/14 * Telephone Encounter - Moni Acevedo RN - 05/05/2024 3:36 PM EDT Tube Exchange Appointment Request Form Person filling out this form: Moni Acevedo RN Date: May 05, 2024 Time: 3:38 PM Patient Name: Shawna Hernandes Patient What type of tube is this? Biliary (tube in bile ducts) Does this tube need exchanged? Yes, How many weeks? 6 weeks Per physician direction, does this need to be physician specific? No Does this patient require MATY? No Per physician, can this exchange be done in the region? No, Main campus If the patient has an already existing exchange appointment can that one be cancelled? Yes Any other pertinent information needed for schedulers?n/a documented in this encounterMartins Ferry Hospital10-03-2024 Telephone encounter Note * Telephone Encounter - Moni Acevedo RN - 05/05/2024 3:36 PM EDT Tube Exchange Appointment Request Form Person filling out this form: Moni Acevedo RN Date: May 05, 2024 Time: 3:38 PM Patient Name: Shawna Hernandes Patient What type of tube is this? Biliary (tube in bile ducts) Does this tube need exchanged? Yes, How many weeks? 6 weeks Per physician direction, does this need to be physician specific? No Does this patient require MATY? No Per physician, can this exchange be done in the region? No, Main campus If the patient has an already existing exchange appointment can that one be cancelled? Yes Any other pertinent information needed for schedulers?n/a [facility]10-03-2024 Miscellaneous Notes* Telephone Encounter - Faith Booth - 05/05/2024 10:42 AM EDT NEED TCM * Telephone Encounter - Faith Booth - 05/05/2024 10:42 AM EDT LM on VM * Telephone Encounter - Faith Booth - 05/05/2024 10:42 AM EDT [facility] is getting [facility] and [facility], [facility] * Telephone Encounter - Agus Nation DO - 05/05/2024 10:42 AM EDT Yes but we can wait to see when he gets discharge from [facility] * Telephone Encounter - Faith Booth - 05/05/2024 10:42 AM EDT Notified documented in this encounterTriHealth [facility]10-[facility]-2024 Telephone encounter Note* Telephone Encounter - Faith Booth - 05/05/2024 10:42 AM EDT NEED TCM [facility]10-03-2024 Telephone encounter Note* Telephone Encounter - Faith Booth - 05/05/2024 10:42 AM EDT LM on VM [facility]10-03-2024 Telephone encounter Note* Telephone Encounter - Faith Booth - 05/05/2024 10:42 AM EDT [facility] do you want a TCM after [facility]? [facility] Telephone encounter Note* Telephone Encounter - Agus Nation DO - 05/05/2024 10:42 AM EDT Yes but we can wait to see when he gets discharge from [facility]10-03-2024 Telephone encounter Note* Telephone Encounter - Faith Booth - 05/05/2024 10:42 AM EDT Notified [facility]10-03-2024 [facility]10-02-2024 Miscellaneous Notes* Telephone Encounter - Amanda Avina CMA - 05/04/2024 1:59 PM EDT Torsten called to say that the family informed her that he is currently a non admit at [facility] and that the pharmacy did receive the order for flushes but they currently have it on hold due to him being in the [facility]. documented in this encounterTriHealth [facility]10-02-2024 Telephone encounter Note* Telephone Encounter - Amanda Avina CMA - 05/04/2024 1:59 PM EDT Torsten called to say that the family informed her that he is currently a non admit at [facility] and that the pharmacy did receive the order for flushes but they currently have it on hold due to him being in the [facility]. [facility]10-02-2024 [facility]10-01-2024 Note [facility]10-01-2024 [facility] System09-30-2024 NoteA[facility]09-24-2024 Telephone encounter Note* Telephone Encounter - Michael Del Toro RN - 04/26/2024 10:21 AM EDT You are scheduled for a Biliary Tube Change, On 05/02/2024. You are to arrive at 10:30 am and Report to [facility] Radiology Outpatient [id number]: You can expect to be here for 2-4 hours. Diet: Do not eat any solid food after MIDNIGHT the day of/night before your procedure. You may drink clear liquids until 9:30 a.m., which means black coffee, apple juice, black tea, or water only. Medications: Ok to take your cardiac, blood pressure, anti-seizure, and chronic pain medications with a sip of water, please take prior to arrival. Bring your current medication list. RADIOLOGY RECOMMENDS THESE MEDICATION RESTRICTIONS: Are you taking any of following medications? Plavix and Jardiance. IF ok with your Prescribing Provider: You do not need to stop Plavix prior to this procedure. Stop Jardiance, oral hypoglycemic, the day of this procedure Labs: Lab-work needs to be drawn? No. Family Resource Coordinator/Transportation: How will you be arriving for your procedure? Private car. You will need a responsible adult to accompany you to and from the procedure. Your hazmat tanker driver is required to stay with you until you are taken into the procedure room. If you have any further questions, please call [phone]. [facility]09-24-2024 Miscellaneous Notes* Telephone Encounter - Michael Del Toro RN - 04/26/2024 10:21 AM EDT You are scheduled for a Biliary Tube Change, On 05/02/2024. You are to arrive at 10:30 am and Report to [facility] Radiology Outpatient [id number]: You can expect to be here for 2-4 hours. Diet: Do not eat any solid food after MIDNIGHT the day of/night before your procedure. You may drink clear liquids until 9:30 a.m., which means black coffee, apple juice, black tea, or water only. Medications: Ok to take your cardiac, blood pressure, anti-seizure, and chronic pain medications with a sip of water, please take prior to arrival. Bring your current medication list. RADIOLOGY RECOMMENDS THESE MEDICATION RESTRICTIONS: Are you taking any of following medications? Plavix and Jardiance. IF ok with your Prescribing Provider: You do not need to stop Plavix prior to this procedure. Stop Jardiance, oral hypoglycemic, the day of this procedure Labs: Lab-work needs to be drawn? No. Family Resource Coordinator/Transportation: How will you be arriving for your procedure? Private car. You will need a responsible adult to accompany you to and from the procedure. Your hazmat tanker driver is required to stay with you until you are taken into the procedure room. If you have any further questions, please call [phone]. documented in this encounterMartins Ferry Hospital09-16-2024 Telephone encounter Note * Telephone Encounter - Katarina De Leon RN - 04/18/2024 9:48 AM EDT SERVICE DATE: April 18, 2024 SERVICE TIME: 949 SERVICE: Interventional Radiology IMPRESSION/RECOMMENDATIONS [facility] was contacted today for follow up s/p placement of Biliary catheter(s) for Shawna. Nurse states: - Biliary drain(s) to gravity drainage with reported good output. Color sierra bilious. - Nurses flushing. He does state discomfort if flushed rapidly. Instructed to flush slower and callif meeting resistance. - Discussed signs and symptoms of infection. - Reviewed how to manage common tube related problems and emergency situations. - Emergency telephone contact information reviewed. - Reviewed dressing change and tube flushing. - Tube care supplies adequate - Routine tube change to be scheduled. 05/02/2024 BILIARY TUBE CARE INSTRUCTIONS: 1) Leave drain to gravity at all times 2) Remove bag at luer lock connection and gently flush drain with 5ml NS every other day 3) Gently cleanse area around drain insertion site with warm soap and water, rinse, pat dry and apply clean dry dressing every other day and prn wet or soiled 4) If questions or concerns were to arise please call interventional radiology nurse line at M-F 7am - 3:30 am. After hours please call or and ask the flat folding machine operator to page the interventional campus president special education resource teacher. Biliary Tube At Home Care Instructions: These instructions explain what you or your healthcare risk control consultant need to do to continue your care at home for the biliary tube Please go over these instructions with your nurse and healthcare risk control consultant. If you are not sure about something, please ask. Watch for the following: Redness, drainage, foul odor, or swelling on the skin around the tube site Abdominal pain Nausea or vomiting Change in color of your stool to a very light or grayish white Shaking chills Temperature above 100.4 F or 38 C Increasing jaundice (yellowing of the skin and eyes) or very dark urine If you have any of the above signs or symptoms, follow these steps: If the tube is capped, uncap and attach the tube to a drainage bag. Be sure the drainage bag is below the level of the tube site. If your tube is already attached to a drainage bag, remove your dressing and check to see if the tube is kinked. If the tube is kinked, straighten the tube until fluid begins to flow. If fluid does not drain after removing the kink in the tube, you may need to gently flush the tube as directed. If the above steps do not relieve the signs and symptoms, call your doctor or go to the nearest emergency department. Bathing and showering guidelines (in regards to the biliary tube): You may shower DO NOT swim or soak in water Site care (in regards to the biliary tube): Keep the dressing that is over the tube site clean and dry You may have a stitch holding your tube in placed. If the stitch breaks, call your doctor. Your tube may have a lock that holds it in place internally. DO NOT OPEN THE LOCK. Your dressing should be changed every other day or sooner if it becomes wet, soiled, falls off, or unless instructed othewise. It is easier if someone helps you change the dressing. Always keep the bag below the tube site to allow proper drainage by gravity. It is important that the tube remain in the proper position, does not become kinked, or that the holes in the tube do not become blocked. For step by step instructions to change dressing please refer to your [facility] at- home instructions After Placement of a Biliary tube provided to you by the [facility]. Flush each biliary tube with 5 cc/ml of normal saline (about half) of the pre- filled syringe every other day. If you experience discomfort during the flushing, you may be flushing too rapidly. Slow the flushing. If the pain persists, stop flushing. Do not reuses syringes The cap on the end of the tube should be changed weekly Please refer to the YouTube video for biliary drain care instructions and demonstrations: https://youtu.be/masBbNq_NgU Diet Recommendations (in regards to the biliary tube): It is recommended you replace the fluids lost through your drainage bag by drinking equal amounts of electrolyte-enriched sports drinks. Drink at least 6 to 8 glasses of fluid per day while your tube is in place. Activity and Exercise: (in regards to the biliary tube): Avoid laying or sleeping on the same side as the tube to prevent kinking of the tube You may resume your normal activities 24 hours after placement of the biliary tube. Interventional Radiology Appointment Reminders: For routine concerns please call Interventional Radiology nurse triage line [phone], Thursday - Thursday 7:30 a.m. - 4 p.m. After hours please call and ask for Interventional Radiology Fellow special education resource teacher, pager [phone]. In the event of acute symptoms report directly to local emergency department and notify the Department of Interventional Radiology after the fact. Your tube needs to be changed regularly to reduce the risk of infection and for proper drainage. (IR will contact you to arrange for routine exchange) Please contact the Interventional Radiology outpatient scheduling department at [phone] (option 1) if you need to change or reschedule any of these appointments.ge or schedule an appointment with interventional radiology please call scheduling at I spent 15 minutes today with this patient comprising of education and answering questions/concerns. [facility]09-16-2024 Miscellaneous Notes* Telephone Encounter - Katarina De [place] RN - 04/18/2024 9:48 AM EDT SERVICE DATE: April 18, 2024 SERVICE TIME: 949 SERVICE: Interventional Radiology IMPRESSION/RECOMMENDATIONS [facility] was contacted today for follow up s/p placement of Biliary catheter(s) for Shawna. Nurse states: - Biliary drain(s) to gravity drainage with reported good output. Color sierra bilious. - Nurses flushing. He does state discomfort if flushed rapidly. Instructed to flush slower and callif meeting resistance. - Discussed signs and symptoms of infection. - Reviewed how to manage common tube related problems and emergency situations. - Emergency telephone contact information reviewed. - Reviewed dressing change and tube flushing. - Tube care supplies adequate - Routine tube change to be scheduled. 05/02/2024 BILIARY TUBE CARE INSTRUCTIONS: 1) Leave drain to gravity at all times 2) Remove bag at luer lock connection and gently flush drain with 5ml NS every other day 3) Gently cleanse area around drain insertion site with warm soap and water, rinse, pat dry and apply clean dry dressing every other day and prn wet or soiled 4) If questions or concerns were to arise please call interventional radiology nurse line at M-F 7am - 3:30 am. After hours please call or and ask the flat folding machine operator to page the interventional campus president special education resource teacher. Biliary Tube At Home Care Instructions: These instructions explain what you or your healthcare risk control consultant need to do to continue your care at home for the biliary tube Please go over these instructions with your nurse and healthcare risk control consultant. If you are not sure about something, please ask. Watch for the following: Redness, drainage, foul odor, or swelling on the skin around the tube site Abdominal pain Nausea or vomiting Change in color of your stool to a very light or grayish white Shaking chills Temperature above 100.4 F or 38 C Increasing jaundice (yellowing of the skin and eyes) or very dark urine If you have any of the above signs or symptoms, follow these steps: If the tube is capped, uncap and attach the tube to a drainage bag. Be sure the drainage bag is below the level of the tube site. If your tube is already attached to a drainage bag, remove your dressing and check to see if the tube is kinked. If the tube is kinked, straighten the tube until fluid begins to flow. If fluid does not drain after removing the kink in the tube, you may need to gently flush the tube as directed. If the above steps do not relieve the signs and symptoms, call your doctor or go to the nearest emergency department. Bathing and showering guidelines (in regards to the biliary tube): You may shower DO NOT swim or soak in water Site care (in regards to the biliary tube): Keep the dressing that is over the tube site clean and dry You may have a stitch holding your tube in placed. If the stitch breaks, call your doctor. Your tube may have a lock that holds it in place internally. DO NOT OPEN THE LOCK. Your dressing should be changed every other day or sooner if it becomes wet, soiled, falls off, or unless instructed othewise. It is easier if someone helps you change the dressing. Always keep the bag below the tube site to allow proper drainage by gravity. It is important that the tube remain in the proper position, does not become kinked, or that the holes in the tube do not become blocked. For step by step instructions to change dressing please refer to your [facility] at- home instructions After Placement of a Biliary tube provided to you by the [facility]. Flush each biliary tube with 5 cc/ml of normal saline (about half) of the pre- filled syringe every other day. If you experience discomfort during the flushing, you may be flushing too rapidly. Slow the flushing. If the pain persists, stop flushing. Do not reuses syringes The cap on the end of the tube should be changed weekly Please refer to the YouTube video for biliary drain care instructions and demonstrations: https://youtu.be/masBbNq_NgU Diet Recommendations (in regards to the biliary tube): It is recommended you replace the fluids lost through your drainage bag by drinking equal amounts of electrolyte-enriched sports drinks. Drink at least 6 to 8 glasses of fluid per day while your tube is in place. Activity and Exercise: (in regards to the biliary tube): Avoid laying or sleeping on the same side as the tube to prevent kinking of the tube You may resume your normal activities 24 hours after placement of the biliary tube. Interventional Radiology Appointment Reminders: For routine concerns please call Interventional Radiology nurse triage line [phone], Thursday - Thursday 7:30 a.m. - 4 p.m. After hours please call and ask for Interventional Radiology Fellow special education resource teacher, pager [phone]. In the event of acute symptoms report directly to local emergency department and notify the Department of Interventional Radiology after the fact. Your tube needs to be changed regularly to reduce the risk of infection and for proper drainage. (IR will contact you to arrange for routine exchange) Please contact the Interventional Radiology outpatient scheduling department at [phone] (option 1) if you need to change or reschedule any of these appointments.ge or schedule an appointment with interventional radiology please call scheduling at I spent 15 minutes today with this patient comprising of education and answering questions/concerns. documented in this encounterMart[facility] Telephone encounter Note * Telephone Encounter - Katarina De [place] RN - 04/08/2024 10:45 AM EDT Interventional Radiology Follow Up Call Attempted to reach Shawna today for follow up from their tube placement. Unable to reach them at thistime. Message left with phone number to return the call. [facility]09-06-2024 Miscellaneous Notes* Telephone Encounter - Katarina De [place] RN - 04/08/2024 10:45 AM EDT Interventional Radiology Follow Up Call Attempted to reach Shawna today for follow up from their tube placement. Unable to reach them at thistime. Message left with phone number to return the call. documented in this encounterMart[facility]erry [facility]08-28-2024 [facility]-28-[facility] History of Present illness Narrative* Paris Boyce - 03/30/2024 2:36 PM EDT IRB#[id number] LARY- PI: Dr. Bettencourt Study explained/reviewed with patient. Study related follow-up requirements were discussed. Patient declined participation - does not want to return for visits at [facility]. Paris Aj [id number] documented in this encounterMartins Ferry Hospital08-28-2024 [facility]08-27-2024 Telephone encounter Note* Telephone Encounter - Yolande Nielson RN - 03/29/2024 1:17 PM EDT Left a VM that I have cancelled his 04/15 appt. and I will reschedule it on the same day that he will see cardiology. To be scheduled after his 05/02 IR appt. I have sent the request to the schedulers as well, and cancelled his 04/15 appt. [facility]08-27-2024 Miscellaneous Notes* Telephone Encounter - Yolande Nielson RN - 03/29/2024 1:17 PM EDT Left a VM that I have cancelled his 04/15 appt. and I will reschedule it on the same day that he will see cardiology. To be scheduled after his 05/02 IR appt. I have sent the request to the schedulers as well, and cancelled his 04/15 appt. documented in this encounterMartins Ferry Hospital08-27-2024 [facility]08-26-2024 NoteA[facility]08-25-2024 NoteA[facility]08-24-2024 [place] [address]-23-2024 NoteHNO ID: [id number] Author: KOBY WALSH RN Service: Nursing Author Type: Registered Nurse Type: Nursing Progress Note Filed: 03/25/2024 17:27 Note Text: Other: 1247 - msg LIP to clarify accu-check order. 1727 - pg for heartburnAdena Health System08-23-2024 NoteAden[facility]08-22-2024 [place] [address]-21-2024 NoteAdena [facility] System08-20-2024 NoteA[facility] System08-20-2024 Note [facility]-20[facility] Telephone encounter Note* Telephone Encounter - Liane Giles - 03/22/2024 7:45 AM EDT Received Tube exchange request and we will schedule this pt in 6 wks for a tube change and it will be at [place] or [place] (instead of [facility] or [facility]) since he is closer to those facility. [facility]08-20-2024 Miscellaneous Notes* Telephone Encounter - Liane Giles - 03/22/2024 7:45 AM EDT Received Tube exchange request and we will schedule this pt in 6 wks for a tube change and it will be at [place] or [place] (instead of [facility] or [facility]) since he is closer to those facility. * Telephone Encounter - Lois Palafox RN - 03/21/2024 10:41 PM EDT Tube Exchange Appointment Request Form Person filling out this form: Lois Palafox RN Date: March 21, 2024 Time: 10:41 PM Patient Name: Shawna Hernandes Patient What type of tube is this? Cholecystostomy (tube in gall bladder) Does this tube need exchanged? Yes, How many weeks? 6 to 8 weeks Per physician direction, does this need to be physician specific? No Does this patient require MATY? No Per physician, can this exchange be done in the region? Yes, Rayna Hancock ( [facility] ) If the patient has an already existing exchange appointment can that one be cancelled? N/a Any other pertinent information needed for schedulers? n/a documented in this encounterMartins Ferry Hospital08-19-2024 Telephone encounter Note * Telephone Encounter - Lois Palafox RN - 03/21/2024 10:41 PM EDT Tube Exchange Appointment Request Form Person filling out this form: Lois Palafox RN Date: March 21, 2024 Time: 10:41 PM Patient Name: Shawna Hernandes Patient What type of tube is this? Cholecystostomy (tube in gall bladder) Does this tube need exchanged? Yes, How many weeks? 6 to 8 weeks Per physician direction, does this need to be physician specific? No Does this patient require MATY? No Per physician, can this exchange be done in the region? Yes, Rayna Hancock ( [facility] ) If the patient has an already existing exchange appointment can that one be cancelled? N/a Any other pertinent information needed for schedulers? n/a [facility]08-19-2024 [facility]08-19-2024 Note [facility]08-19-2024 NoteA[facility]08-17-2024 Progress note Author Shakir Tsai [facility] March 19, 2024 6:56pm Note Date/Time March 19, 2024 11 :09am [facility] [address] [place] [address] Hospitalist Progress Note Signed Patient: Shawna Hernandes MR#: [id number] : 1945 Acct:[id number] Age/Sex: 79 / M Adm Date: 4 Loc: 3T Room: [address] [place] [address] Type: ADM IN Attending Dr: Shakir Tsai DO Copies to: ~ Date of Service: 03/19/2024 Subjective Subjective Narrative: Mr Shawna Hernandes is a?with a 79M PMHx of GERD, TIA, HLD, HTN, CHF, [place] s/p biventricular pacemaker defibrillator who presented to ED with severe abdominal pain. Pt continues for have improvement. This morning he says he have very minimal if any pain at rest. He is still slightly tender to palpation of the R side of his abdomen and epigastric region. He was able to have a bowel movement and he says that it helped his pain slightly. He feels hydrated today for the first time. Acute problems: 1. Abdominal Pain: - Continue pain and antinausea medications - GI consult; potential Ultrasound, no EGD - Protonix 40mg BID - Pepcid 20mg BID - Viscous lidocaine PRN - Repeat CT; inflammatory changes of gallbladder, hepatic flexure and duodenum; wall thickening of gallbladder and duodenum - Blood culture pending - WBC decreased to 18 - AST 56, ALT 105 have both decreased - Continue Rocephin and Flagyl 2. Hypotension - BP 120/73 this AM - Cortisol AM 32 - TSH 0.34, T3 2.18, T4 2.15; pt is treated with levothyroxine for hypothyroidism and this could explain abnormal values - cautiously reinstitute BP medications Chronic conditions requiring attention while inpatient: continue home meds unless otherwise listed below. Additional plans below. - HTN - HLD - CHF - GERD - TIA DVT PPx: SCDs Diet: Regular Diet CODE STATUS: Full Code Dispo: Admitted to medical floor for observation Plan of care Discussed with:?the medical team, the patient Exam Physical Exam Vital Signs: Temp Pulse Resp BP Pulse Ox O2 Del Method 97.9 F 62 16 120/73 95 Room Air 03/19/24 08:48 03/19/24 08:48 03/19/24 08:48 03/19/24 08:48 03/19/24 08:48 03/19/24 08:48 Narrative: GENERAL: ill-appearing, fatigued, pale HEENT: NC/AT, EOMI, PERRL, conjunctiva clear CARDIOVASCULAR: Regular rate and regular rhythm, no murmurs RESPIRATORY: nonlabored work of breathing on room air, slight wheeze b/l, symmetric chest rise ABDOMEN: Soft, tender in epigastric region and RLQ to light palpation, no guarding or rigidity BACK: No midline or paraspinal tenderness EXTREMITIES: moving all extremities. Well-perfused. Sensation intact. No edema NEURO: Cranial nerves grossly intact, no focal neurologic signs PSYCHIATRIC: Good eye contact, appropriate mood and affect Objective Lab Results 03/19/24 12:13 03/19/24 12:13 Microbiology Results Microbiology 03/16/24 14:56 Blood - Right Antecubital Blood Culture - Preliminary No Growth 2 Days 03/16/24 15:04 Blood - Right Hand Blood Culture - Preliminary No Growth 2 Days Meds Allergies and Active Meds Allergies No Known Allergies Allergy (Verified 03/14/24 08:51) Active Meds: Active Medications Generic Name Dose Route Start Last Admin Trade Name Freq PRN Reason Stop Dose Admin Amiodarone HCl 200 mg 03/15/24 09:00 03/16/24 09:08 Amiodarone 200 Mg Tablet PO 03/15/25 08:59 Not Given QAM MEGHA Aspirin 81 mg 03/15/24 09:00 03/19/24 08:49 Aspirin 81 Mg Tablet.Dr PO 03/15/25 08:59 81 mg QAM MEGHA Administration Docusate Sodium 100 mg 03/17/24 21:00 03/19/24 08:49 Docusate 100 Mg Capsule PO 03/17/25 20:59 Not Given BID MEGHA Famotidine 20 mg 03/14/24 21:00 03/19/24 08:49 Famotidine/Pf 20 Mg/2 Ml Vial IV-PUSH 03/14/25 20:59 20 mg Q12HR MEGHA Administration Ceftriaxone Sodium 2 gm in 50 mls @ 100 mls/hr 03/16/24 14:00 03/18/24 14:53 Rocephin IV 100 mls/hr Q24H MEGHA Administration Metronidazole 500 mg in 100 mls @ 100 mls/hr 03/16/24 14:00 03/19/24 06:07 Flagyl IV 100 mls/hr Q8H MEGHA Administration Levothyroxine Sodium 50 mcg 03/15/24 06:30 03/19/24 06:04 Levothyroxine 50 Mcg Tablet PO 03/15/25 06:29 50 mcg DAILY@0630 MEGHA Administration Lidocaine HCl 15 ml 03/14/24 17:47 Lidocaine 2% Viscous 15 Ml Udc MUCOUS MEM 03/14/25 17:46 Q4H PRN indigestion/pain Mexiletine HCl 150 mg 03/14/24 22:00 03/19/24 08:49 Mexiletine 150 Mg Capsule PO 03/14/25 21:59 150 mg TID MEGHA Administration Pantoprazole Sodium 40 mg 03/14/24 21:00 03/19/24 08:49 Pantoprazole 40 Mg Vial IV-PUSH 03/14/25 20:59 40 mg BID MEGHA Administration Polyethylene Glycol 17 gm 03/17/24 21:00 03/19/24 08:49 Polyethylene Glycol 3350 17 Gm Powd.Pack PO 03/17/25 20:59 Not Given BID MEGHA Sennosides 8.8 mg 03/17/24 21:00 03/19/24 08:49 Sennosides Syrup 8.8 Mg/5 Ml Udc PO 03/17/25 20:59 Not Given BID MEGHA Sodium Chloride 0 ml 03/14/24 08:50 03/19/24 08:50 Sodium Chloride 0.9 % 10 Ml Syringe IV-PUSH 03/14/25 08:49 10 ml PRN PRN Administration Flush Sodium Chloride 10 ml 03/14/24 14:59 03/19/24 08:50 Sodium Chloride 0.9 % 10 Ml Syringe IV-PUSH 03/14/25 14:58 10 ml PRN PRN Administration Flush Sodium Chloride 10 ml 03/14/24 17:05 03/19/24 08:49 Sodium Chloride 0.9 % 10 Ml Vial.Pf INJECTION 03/14/25 17:04 10 ml PRN PRN Administration Dilution Sodium Chloride 10 ml 03/14/24 17:05 03/18/24 21:31 Sodium Chloride 0.9 % 10 Ml Syringe IV-PUSH 03/14/25 17:04 10 ml PRN PRN Administration Flush Sodium Chloride 10 ml 03/14/24 17:47 03/16/24 07:44 Sodium Chloride 0.9 % 10 Ml Vial.Pf INJECTION 03/14/25 17:46 10 ml PRN PRN Administration To dilute Pepcid A&P - Hospitalist Assessment/Plan (1) Hypotension: (2) Intractable abdominal pain: (3) Nausea: Plan see above <Statement entered by Shakir Tsai DO - 03/19/24 18:56> I personally saw and examined patient at the bedside this afternoon. Case was discussed and coordinated with student Dr. Castillo and agree with management as noted therein. Documented By: Shakir Tsai DO 03/19/24 09 39 Signed By: <Electronically signed by Shakir Tsai DO> 03/19/24 [address] [facility] Work Phone: 1(101) 503-132508-16-2024 Progress note Author Shakir Tsai [facility] March 18, 2024 5:15pm Note Date/Time March 18, 2024 11 :18am [facility] [address] [place] [address] Hospitalist Progress Note Signed with Addenda Patient: Shawna Hernandes MR#: [id number] : 1945 Acct:[id number] Age/Sex: 79 / M Adm Date: 4 Loc: Room: [address] [place] [address] Type: ADM IN Attending Dr: Shakir Tsai DO Copies to: ~ ADDENDUM1 Disregard previous addendum entered in error: I personally saw and examined the patient at the bedside this afternoon. Case was discussed and coordinated in conjunction with student Dr. Velazquez. Agree with management as noted therein. Patient is accepted for transfer to [facility] under general surgery services. Medically he is responding well to antibiotic therapy with improvement in blood pressure and overall clinical appearance today. He still moved his bowels and has ongoing intermittent abdominal discomfort primarily in the lower right quadrant. Addendum Documented By: Shakir Tsai DO 03/18/241714 Addendum Signed By: <Electronically signed by Shakir Tsai DO> 03/18/241714 Date of Service: 03/18/2024 Subjective Subjective Narrative: Mr Shawna Hernandes is a?with a 79M PMHx of GERD, TIA, HLD, HTN, CHF, [place] s/p biventricular pacemaker defibrillator who presented to ED with severe abdominal pain. On Hospital day #3 pt is feeling much improved. He is sitting up in bed when assessed, talking, and making jokes which is a big improvement from previous days. He says he has been wanting to get out of bed more and sit in his chair. He says his pain is 3/10 today and he denies nausea and vomiting. The pain is still 8/10 when he coughs or has a hiccup. He still has a dry cough and wheezingand says he feels dehydrated even with drinking and continued fluids. His abdomen is photographer still to palpation in epigastric region and diffusely along R side. He says he feels like he has to have a bowel movement but has been unable to. He has been eating much better since yesterday. Acute problems: 1. Abdominal Pain: - Continue pain and antinausea medications - GI consult; potential Ultrasound, no EGD - Protonix 40mg BID - Bentyl 20mg TID - Pepcid 20mg BID - Viscous lidocaine PRN - Consider laxative for constipation; methylnaltrexone, senna, miralax - Repeat CT; inflammatory changes of gallbladder, hepatic flexure and duodenum; wall thickening of gallbladder and duodenum - Blood culture pending - WBC decreased to 18 - AST 56, ALT 105 have both decreased - Continue Rocephin and Flagyl 2. Hypotension - BP 116/73 this AM - Fluid resuscitation with LR - Cortisol AM 32 - TSH 0.34, T3 2.18, T4 2.15; pt is treated with levothyroxine for hypothyroidism and this could explain abnormal values - cautiously reinstitute BP medications Chronic conditions requiring attention while inpatient: continue home meds unless otherwise listed below. Additional plans below. - HTN - HLD - CHF - GERD - TIA DVT PPx: SCDs Diet: Regular Diet CODE STATUS: Full Code Dispo: Admitted to medical floor for observation Plan of care Discussed with:?the medical team, the patient Exam Physical Exam Vital Signs: Temp Pulse Resp BP Pulse Ox O2 Del Method 98 F 63 16 116/73 94 L Room Air 03/18/24 08:46 03/18/24 08:46 03/18/24 08:46 03/18/24 08:46 03/18/24 08:46 03/18/24 08:46 Narrative: GENERAL: ill-appearing, fatigued, pale HEENT: NC/AT, EOMI, PERRL, conjunctiva clear CARDIOVASCULAR: Regular rate and regular rhythm, no murmurs RESPIRATORY: nonlabored work of breathing on room air, slight wheeze b/l, symmetric chest rise ABDOMEN: Soft, minimally distended, slight guarding, minimally rigid, tender in epigastric region and RLQ to light palpation, BACK: No midline or paraspinal tenderness EXTREMITIES: moving all extremities. Well-perfused. Sensation intact. No edema NEURO: Cranial nerves grossly intact, no focal neurologic signs PSYCHIATRIC: Good eye contact, appropriate mood and affect Objective Lab Results 03/18/24 05:43 03/18/24 05:43 Microbiology Results Microbiology 03/16/24 14:56 Blood - Right Antecubital Blood Culture - Preliminary No Growth 1 Day 03/16/24 15:04 Blood - Right Hand Blood Culture - Preliminary No Growth 1 Day Meds Allergies and Active Meds Allergies No Known Allergies Allergy (Verified 03/14/24 08:51) Active Meds: Active Medications Generic Name Dose Route Start Last Admin Trade Name Freq PRN Reason Stop Dose Admin Amiodarone HCl 200 mg 03/15/24 09:00 03/16/24 09:08 Amiodarone 200 Mg Tablet PO 03/15/25 08:59 Not Given QAM MEGHA Aspirin 81 mg 03/15/24 09:00 03/18/24 08:50 Aspirin 81 Mg Tablet.Dr PO 03/15/25 08:59 81 mg QAM MEGHA Administration Docusate Sodium 100 mg 03/17/24 21:00 03/18/24 08:50 Docusate 100 Mg Capsule PO 03/17/25 20:59 100 mg BID MEGHA Administration Famotidine 20 mg 03/14/24 21:00 03/18/24 08:50 Famotidine/Pf 20 Mg/2 Ml Vial IV-PUSH 03/14/25 20:59 20 mg Q12HR MEGHA Administration Ceftriaxone Sodium 2 gm in 50 mls @ 100 mls/hr 03/16/24 14:00 03/17/24 14:57 Rocephin IV 100 mls/hr Q24H MEGHA Administration Metronidazole 500 mg in 100 mls @ 100 mls/hr 03/16/24 14:00 03/18/24 06:50 Flagyl IV 100 mls/hr Q8H MEGHA Administration Levothyroxine Sodium 50 mcg 03/15/24 06:30 03/18/24 06:50 Levothyroxine 50 Mcg Tablet PO 03/15/25 06:29 50 mcg DAILY@0630 MEGHA Administration Lidocaine HCl 15 ml 03/14/24 17:47 Lidocaine 2% Viscous 15 Ml Udc MUCOUS MEM 03/14/25 17:46 Q4H PRN indigestion/pain Mexiletine HCl 150 mg 03/14/24 22:00 03/18/24 08:58 Mexiletine 150 Mg Capsule PO 03/14/25 21:59 150 mg TID MEGHA Administration Pantoprazole Sodium 40 mg 03/14/24 21:00 03/18/24 08:50 Pantoprazole 40 Mg Vial IV-PUSH 03/14/25 20:59 40 mg BID MEGHA Administration Polyethylene Glycol 17 gm 03/17/24 21:00 03/18/24 08:50 Polyethylene Glycol 3350 17 Gm Powd.Pack PO 03/17/25 20:59 17 gm BID MEGHA Administration Sennosides 8.8 mg 03/17/24 21:00 03/18/24 08:50 Sennosides Syrup 8.8 Mg/5 Ml Udc PO 03/17/25 20:59 8.8 mg BID MEGHA Administration Sodium Chloride 0 ml 03/14/24 08:50 03/17/24 21:25 Sodium Chloride 0.9 % 10 Ml Syringe IV-PUSH 03/14/25 08:49 10 ml PRN PRN Administration Flush Sodium Chloride 10 ml 03/14/24 14:59 Sodium Chloride 0.9 % 10 Ml Syringe IV-PUSH 03/14/25 14:58 PRN PRN Flush Sodium Chloride 10 ml 03/14/24 17:05 03/16/24 07:44 Sodium Chloride 0.9 % 10 Ml Vial.Pf INJECTION 03/14/25 17:04 10 ml PRN PRN Administration Dilution Sodium Chloride 10 ml 03/14/24 17:05 03/17/24 21:25 Sodium Chloride 0.9 % 10 Ml Syringe IV-PUSH 03/14/25 17:04 10 ml PRN PRN Administration Flush Sodium Chloride 10 ml 03/14/24 17:47 03/16/24 07:44 Sodium Chloride 0.9 % 10 Ml Vial.Pf INJECTION 03/14/25 17:46 10 ml PRN PRN Administration To dilute Pepcid A&P - Hospitalist Assessment/Plan (1) Hypotension: (2) Intractable abdominal pain: (3) Nausea: Plan see above <Statement entered by Shakir Tsai DO - 03/18/24 17:13> I personally saw and examined the patient at the bedside this afternoon. Case was discussed and coordinated in conjunction with student Dr. Velazquez. Agree with management as noted therein. Patient still has some O2 requirement. Will check chemistries, BNP normal and chest x-ray again tomorrow to optimize fluid dynamics prior to discharge. Medically stable for discharge at any time when assisted facility is coordinated Documented By: Shakir Tsai DO 03/18/24 11 03 Signed By: <Electronically signed by Shakir Tsai DO> 03/18/24 1719 [facility] Work Phone: [phone]) 138-874608-15-2024 Progress note Author Shakir Tsai [facility] March 17, 2024 9:42pm Note Date/Time March 17, 2024 9: 42pm [facility] [address] [place] [address] Event Note Signed Patient: Shawna Hernandes MR#: [id number] : 1945 Acct:[id number] Age/Sex: 79 / M Adm Date: 4 Loc: Room: [address] [place] [address] Type: ADM IN Attending Dr: Shakir Tsai DO Copies to: DO Shakir Suárez DO~ Status Event Note Event Note DATE OF EVENT: 03/17/24 EVENT DETAILS: Spoke with [facility] transfer center this evening. General surgery Dr. Salo Lraios has accepted the patient for transfer. Will continue MedSurg management remained hemodynamically unchanged this afternoon. No hypoxia presently but some tachypnea and intermittent wheezes noted. Follow a.m. labs. He is medically ready for transfer whenever bed becomes available. I spoke to the patient's and primary contact listed this evening. Updated her on planfor transfer initiation. TIME W/PATIENT (# MINS): 20 Documented By: Shakir Tsai DO 03/17/24 21 39 Signed By: <Electronically signed by Shakir Tsai DO> 03/17/24 7739 [facility] Work Phone: 1(290) 865-695308-15-2024 Consult note Author Perry Nails [facility] March 17, 2024 7:33pm Note Date/Time March 17, 2024 7: 27pm [facility] [address] [place] [address] General Surgery Consult Note Signed Patient: Shawna Hernandes MR#: [id number] : 1945 Acct:[id number] Age/Sex: 79 / M Adm Date: 4 Loc: Room: [address] [place] [address] Type: ADM IN Attending Dr: Shakir Tsai DO Copies to: MD Agus Hodges DO Michael R. Frings, DO~ History of Present Illness Date of consult: 03/17/2024 Requesting/Attending Provider: Shakir Tsai DO History of present illness: Patient is a 79-year-old male whom consultation is obtained regarding cholecystitis and sepsis. Patient developed right upper abdominal pain. He denies vomiting. Patient then developed evidence of early sepsis. CT scan shows inflammation around the gallbladder, duodenum and hepatic flexure. There is also some thickening of the gallbladder. Currently, patient states he does have some right upper quadrant pain but is notas severe as when he came into denies previous history of similar pain. Patient has significant serious medical problems. He has cardiac dysfunction with an ejection fraction of 15%. Also has significant pulmonary hypertension. He does get short of breath easily and complains currently of wheezing. Review of Systems Cardiovascular Cardiovascular: Denies chest pain Respiratory Respiratory: Reports dyspnea Gastrointestinal Gastrointestinal: Reports abdominal pain and Denies vomiting Neurologic Neurologic: Denies syncope COUNTS INCLUDE 234 BEDS AT THE [facility] Medical History Defibrillator discharge TBI (traumatic brain injury) Neuropathy TIA (transient ischemic attack) Macular degeneration BPH (benign prostatic hyperplasia) Cardiomyopathy Hyperlipemia Hypertension CHF (congestive heart failure) History of myocardial infarction Surgical History Status post biventricular pacemaker History of vasectomy History of phacoemulsification of cataract of both eyes with intraocular lens implantation History of tonsillectomy History of cystoscopy History of hernia surgery History of cardiac catheterization AICD (automatic cardioverter/defibrillator) present Family History Father Myocardial infarction Mother Hypertension Brother History of heart surgery Brother Heart disease Sister Hypertension Thyroid disease Sister Hypertension Thyroid disease Brother Hypertension Legacy FamHx Relation: Brother(s) Heart disease Legacy FamHx Relation: Brother(s) Father Heart disease 50 yrs Mother 89 yrs Sister Hypertension Heart disease Social History Smoking Status: Former smoker Tobacco Type: cigarettes Substance Use Type: None Substance Abuse Comment: rarely Social History Comments: He admits that he did smoke but it was 50 years ago andat that time he only smoked for 3 years and it was a pipe only and that he did not inhale. Rarely drank any alcohol. Allergies & Medications Medications and Allergies Allergies No Known Allergies Allergy (Verified 03/14/24 08:51) Home Medications aspirin 81 mg tablet,delayed release 81 mg PO QAM 11/15/17 [History Confirmed 03/14/24] bumetanide 1 mg tablet 1 mg PO QAM 11/15/17 [History Confirmed 03/14/24] nitroglycerin 0.4 mg sublingual tablet (Nitrostat) 0.4 mg sublingual DIRECTEDPRN Chest Pain 11/15/17 [History Confirmed 03/14/24] biotin 5 mg capsule 5 mg PO QAM 09/02/19 [History Confirmed 03/14/24] vit A 300 mcg-C 200 mg-E 27 mg-lutein 2 mg and minerals tablet (Eye Health Plus Lutein) 1 tab PO QAM 09/02/19 [History Confirmed 03/14/24] vitamin B complex 1 cap PO QAM 09/02/19 [History Confirmed 03/14/24] atorvastatin 80 mg tablet 80 mg PO QAM 08/13/22 [History Confirmed 03/14/24] clopidogrel 75 mg tablet 75 mg PO QAM 08/13/22 [History Confirmed 03/14/24] levothyroxine 50 mcg tablet 50 mcg PO QAM 08/13/22 [History Confirmed 03/14/24] empagliflozin 10 mg tablet (Jardiance) 10 mg PO DAILY 11/21/22 [History Confirmed 03/14/24] spironolactone 25 mg tablet 25 mg PO QAM 30 days #30 tabs 11/25/22 [Rx Confirmed 03/14/24] amiodarone 100 mg tablet 200 mg PO QAM 04/17/23 [History Confirmed 03/14/24] magnesium oxide 400 mg (241.3 mg magnesium) tablet 400 mg PO DAILY 04/17/23 [History Confirmed 03/14/24] mexiletine 150 mg capsule 150 mg PO TID 04/17/23 [History Confirmed 03/14/24] ascorbate calcium (vitamin C) 500 mg tablet 500 mg PO DAILY 02/19/24 [History Confirmed 03/14/24] carvedilol 12.5 mg tablet 12.5 mg PO BID 02/19/24 [History Confirmed 03/14/24] pantoprazole 40 mg tablet,delayed release 40 mg PO DAILY 30 days #30 tabs 02/19/24 [Rx Confirmed 03/14/24] sacubitril 49 mg-valsartan 51 mg tablet (Entresto) 1 tab PO BID 02/19/24 [History Confirmed 03/14/24] Active Medications Amiodarone HCl (Amiodarone 200 Mg Tablet) [facility] Stop: 03/15/25 08:59 Last Admin: 03/16/24 09:08 Dose: Not Given Aspirin (Aspirin 81 Mg Tablet.) [address] [facility] Stop: 03/15/25 08:59 Last Admin: 03/17/24 09:07 Dose: 81 mg Docusate Sodium (Docusate 100 Mg Capsule) 100 mg PO BID [facility] Stop: 03/17/25 20:59 Famotidine (Famotidine/Pf 20 Mg/2 Ml Vial) 20 mg IV-PUSH Q12HR [facility] Stop: 03/14/25 20:59 Last Admin: 03/17/24 09:07 Dose: 20 mg Lactated Ringer's (Lactated Ringers) 1,000 mls @ 150 mls/hr IV .Q6H40M [facility] Stop: 03/15/25 20:59 Last Admin: 03/17/24 13:09 Dose: 150 mls/hr Ceftriaxone Sodium (Rocephin) 2 gm in 50 mls @ 100 mls/hr IV Q24H [facility] Last Admin: 03/17/24 14:57 Dose: 100 mls/hr Metronidazole (Flagyl) 500 mg in 100 mls @ 100 mls/hr IV Q8H [facility] Last Admin: 03/17/24 14:57 Dose: 100 mls/hr Levothyroxine Sodium (Levothyroxine 50 Mcg Tablet) 50 mcg PO DAILY@0630 [facility] Stop: 03/15/25 06:29 Last Admin: 03/17/24 05:57 Dose: 50 mcg Lidocaine HCl (Lidocaine 2% Viscous 15 Ml Udc) 15 ml MUCOUS MEM Q4H PRN PRN Reason: indigestion/pain Stop: 03/14/25 17:46 Mexiletine HCl (Mexiletine 150 Mg Capsule) 150 mg PO TID MEGHA Stop: 03/14/25 21:59 Last Admin: 03/17/24 13:13 Dose: 150 mg Pantoprazole Sodium (Pantoprazole 40 Mg Vial) 40 mg IV-PUSH BID [facility] Stop: 03/14/25 20:59 Last Admin: 03/17/24 09:07 Dose: 40 mg Polyethylene Glycol (Polyethylene Glycol 3350 17 Gm Powd.Pack) 17 gm PO BID [facility] Stop: 03/17/25 20:59 Sennosides (Sennosides Syrup 8.8 Mg/5 Ml Udc) 8.8 mg PO BID [facility] Stop: 03/17/25 20:59 Sodium Chloride (Sodium Chloride 0.9 % 10 Ml Syringe) 0 ml IV-PUSH PRN PRN PRN Reason: Flush Stop: 03/14/25 08:49 Last Admin: 03/16/24 21:07 Dose: 10 ml Sodium Chloride (Sodium Chloride 0.9 % 10 Ml Syringe) 10 ml IV-PUSH PRN PRN PRN Reason: Flush Stop: 03/14/25 14:58 Sodium Chloride (Sodium Chloride 0.9 % 10 Ml Vial.Pf) 10 ml INJECTION PRN PRN PRN Reason: Dilution Stop: 03/14/25 17:04 Last Admin: 03/16/24 07:44 Dose: 10 ml Sodium Chloride (Sodium Chloride 0.9 % 10 Ml Syringe) 10 ml IV-PUSH PRN PRN PRN Reason: Flush Stop: 03/14/25 17:04 Last Admin: 03/16/24 21:07 Dose: 10 ml Sodium Chloride (Sodium Chloride 0.9 % 10 Ml Vial.Pf) 10 ml INJECTION PRN PRN PRN Reason: To dilute Pepcid Stop: 03/14/25 17:46 Last Admin: 03/16/24 07:44 Dose: 10 ml Exam Physical Exam Vital Signs: Temp Pulse Resp BP Pulse Ox O2 Del Method 97.2 F L 62 16 104/68 95 Room Air 08/15/24 15:04 03/17/24 15:04 03/17/24 15:04 03/17/24 15:04 03/17/24 15:04 03/17/24 15:04 Const General: cooperative Eyes Sclera: sclerae normal (Anicteric) Resp Effort & Inspection: audible wheezes GI Inspection: distended Palpation: soft, no guarding and tender in the RUQ Neuro General: patient alert and patient awake Results - Gen. Surgery Pain Assessment Abdomen: Pain Description: Constant and Aching Pain Intensity: 4 Intake and Output 24 hour I&O: Intake & Output 03/17/24 03/17/24 03/17/24 07:59 15:59 23:59 Intake Total 1320 / 1320 1000 / 2320 450 / 2770 Output Total 500 / 500 400 / 900 Balance 820 / 820 1000 / 1820 50 / 1870 Weight 96.2 kg Labs 03/17/24 07:18 03/17/24 07:18 Laboratory Results - last 72 hr 03/17/24 07:18: Corrected WBC 20.0 H, Uncorrected WBC Count 20.0 H, RBC 3.26 L, Hgb 11.0 L, Hct 32.5 L, MCV 99.6, MCH 33.9, MCHC 34.0, RDW 14.2, Plt Count 135 L, MPV 9.7, Neut % (Auto) 89.6, Lymph % (Auto) 2.5, Rush % (Auto) 7.3, Eos % (Auto) 0.2, Baso % (Auto) 0.4, Nucleat RBC Rel Count 0.1, Neut # (Auto) 17.9 H, Lymph # (Auto) 0.5 L, Rush # (Auto) 1.5 H, Eos # (Auto) 0.0, Baso # (Auto) 0.1, PHA Creatinine Clear 38.04, Sodium 133 L, Potassium 3.9, Chloride 104, Carbon Dioxide 22.0, Anion Gap 10.9, BUN 38 H, Creatinine 1.80 H, Est GFR (CKD-EPI) 38.052, Glucose 95, Lactic Acid 1.1, Calcium 8.0 L, Total Bilirubin 0.7, Direct Bilirubin 0.20 H, Indirect Bilirubin 0.5, AST 61 H, ALT 137 H, Alkaline Phosphatase 49, Total Protein 5.5 L, Albumin 2.9 L, Globulin 2.6, Albumin/Globulin Ratio 1.1, Total Cortisol 32.0 03/16/24 18:35: Lactic Acid 2.4 H* 03/16/24 14:57: B-Natriuretic Peptide 208.0 H 03/16/24 14:56: Corrected WBC 24.3 H, Uncorrected WBC Count 24.3 H, RBC 3.33 L, Hgb 11.2 L, Hct 33.6 L, MCV 100.7, MCH 33.7, MCHC 33.5, RDW 14.1, Plt Count 138 L, MPV 9.8, Neut % (Auto) 93.6, Lymph % (Auto) 1.7, Rush % (Auto) 4.5, Eos % (Auto) 0.1, Baso % (Auto) 0.1, Nucleat RBC Rel Count 0.0, Neut # (Auto) 22.8 H, Lymph # (Auto) 0.4 L, Rush # (Auto) 1.1 H, Eos # (Auto) 0.0, Baso # (Auto) 0.0, PT 14.9 H, INR 1.3, APTT 27.5, PHA Creatinine Clear 34.00, Sodium 132 L, Potassium 3.9, Chloride 101, Carbon Dioxide 23.3, Anion Gap 11.6, BUN 39 H, Creatinine 2.01 H, Est GFR (CKD- EPI) 33.332, Glucose 141 H, Lactic Acid 2.4 H*, Calcium 8.1 L, Magnesium 2.3, Total Bilirubin 1.1 H, Direct Bilirubin 0.40 H, Indirect Bilirubin 0.7, AST 101 H, ALT 188 H, Alkaline Phosphatase 49, Total Protein 5.8 L, Albumin 3.2 L, Globulin 2.6, Albumin/Globulin Ratio 1.2 03/16/24 06:14: Corrected WBC 24.7 H, Uncorrected WBC Count 24.7 H, RBC 3.22 L, Hgb 10.9 L, Hct 32.6 L, MCV 101.3 H, MCH 34.0, MCHC 33.6, RDW 14.1, Plt Count 130 L, MPV 10.3 H, Neut % (Auto) 89.0, Lymph % (Auto) 1.9, Rush % (Auto) 8.9, Eos % (Auto) 0.1, Baso % (Auto) 0.1, Nucleat RBC Rel Count 0.0, Neut # (Auto) 22.0 H, Lymph # (Auto) 0.5 L, Rush # (Auto) 2.2 H, Eos # (Auto) 0.0, Baso # (Auto) 0.0, PHA Creatinine Clear 34.87, Sodium 134 L, Potassium 4.3, Chloride 103, Carbon Dioxide 24.1, Anion Gap 11.2, BUN 37 H, Creatinine 1.96 H, Est GFR (CKD-EPI) 34.355, Glucose 95, Calcium 8.1 L, Lipase 5.0 L 03/15/24 05:59: PT 12.8, INR 1.1, APTT 26.1, Lactic Acid 1.7, Total Bilirubin 1.1 H, Direct Bilirubin 0.30 H, Indirect Bilirubin 0.8, AST 61 H, ALT 94 H, Alkaline Phosphatase 52, Total Protein 6.0 L, Albumin 3.5, Globulin 2.5, Albumin/Globulin Ratio 1.4, Free T4 2.15 H, Free T3 2.18 L, TSH 3rd Generation 0.34 L, Total Cortisol 37.1 Microbiology Microbiology - Results from entire visit 03/16/24 14:56 Blood - Right Antecubital Blood Culture - Preliminary No Growth 1 Day 03/16/24 15:04 Blood - Right Hand Blood Culture - Preliminary No Growth 1 Day A&P - General Surgery (1) Cholecystitis: (2) Sepsis: Qualifiers: Sepsis type: sepsis due to unspecified organism Sepsis acute organ dysfunction status: unspecified Qualified Code(s): A41.9 - Sepsis, unspecified organism (3) Ischemic cardiomyopathy: (4) Pulmonary hypertension: Plan Patient had right upper quadrant pain. With possible acute cholecystitis and evidence of sepsis, patient likely requires cholecystectomy. However, with the patient's poor cardiac ejection fraction and pulm hypertension, surgery is more appropriately performed at a tertiary care center. Patient would prefer the [facility]. Documented By: Perry Nails MD 03/17/241925 Signed By: <Electronically signed by MD Perry Nails> 03/17/241932 [facility] Work Phone: 1(307) 701-530908-15-2024 Progress note Author Shakir Tsai [facility] March 17, 2024 7:27pm Note Date/Time March 17, 2024 11 :38am [facility] [address] [place] [address] Hospitalist Progress Note Signed Patient: Shawna Hernandes MR#: [id number] : 1945 Acct:[id number] Age/Sex: 79 / M Adm Date: 4 Loc: 3T Room: [address] [place] [address] Type: ADM IN Attending Dr: Shakir Tsai DO Copies to: ~ Date of Service: 03/17/2024 Subjective Subjective Narrative: Mr Shawna Hernandes is a?with a 79M PMHx of GERD, TIA, HLD, HTN, CHF, [place] s/p biventricular pacemaker defibrillator who presented to ED with severe abdominal pain. On Hospital day #3 pt is feeling the same as previous days. The pain has continued to stay in the right lower quadrant. It still feels like a spasm, but he says it starts in his back and moves around his right side and to the front of his abdomen. He says he is always having a high level of constant pain however. He rates it as a 9/10. This morning he also has a dry cough. Continues to deny nausea, odynophagia, or dry heaving. He reports that he has not had a BM since admission and feels it is due to the pain. Acute problems: 1. Abdominal Pain: - Continue pain and antinausea medications - GI consult; potential Ultrasound, no EGD - Protonix 40mg BID - Bentyl 20mg TID - Pepcid 20mg BID - Viscous lidocaine PRN - Consider laxative for constipation - Repeat CT; inflammatory changes of gallbladder, hepatic flexure and duodenum; wall thickening of gallbladder and duodenum - Blood culture pending - WBC decreased to 20 from 25 - AST 61, ALT 137 have both decreased - Continue Rocephin and Flagyl 2. Hypotension - BP 120/68 this AM - Fluid resuscitation with LR - Cortisol AM 37.1 - TSH 0.34, T3 2.18, T4 2.15; pt is treated with levothyroxine for hypothyroidism and this could explain abnormal values - cautiously reinstitute BP medications Chronic conditions requiring attention while inpatient: continue home meds unless otherwise listed below. Additional plans below. - HTN - HLD - CHF - GERD - TIA DVT PPx: SCDs Diet: Regular Diet CODE STATUS: Full Code Dispo: Admitted to medical floor for observation Plan of care Discussed with:?the medical team, the patient Exam Physical Exam Vital Signs: Temp Pulse Resp BP Pulse Ox O2 Del Method 98.1 F 65 16 120/68 94 L Room Air 03/17/24 09:03 03/17/24 09:03 03/17/24 09:03 03/17/24 09:03 03/17/24 09:03 03/17/24 09:03 Narrative: GENERAL: ill-appearing, fatigued, pale HEENT: NC/AT, EOMI, PERRL, conjunctiva clear CARDIOVASCULAR: Regular rate and regular rhythm, no murmurs RESPIRATORY: nonlabored work of breathing on room air, clear to auscultation bilaterally, symmetric chest rise ABDOMEN: Soft, minimally distended, slight guarding, minimally rigid, tender in epigastric region and RLQ to light palpation, BACK: No midline or paraspinal tenderness EXTREMITIES: moving all extremities. Well-perfused. Sensation intact. No edema NEURO: Cranial nerves grossly intact, no focal neurologic signs PSYCHIATRIC: Good eye contact, appropriate mood and affect Objective Lab Results 03/17/24 07:18 03/17/24 07:18 Meds Allergies and Active Meds Allergies No Known Allergies Allergy (Verified 03/14/24 08:51) Active Meds: Active Medications Generic Name Dose Route Start Last Admin Trade Name Freq PRN Reason Stop Dose Admin Amiodarone HCl 200 mg 03/15/24 09:00 03/16/24 09:08 Amiodarone 200 Mg Tablet PO 03/15/25 08:59 Not Given QAM MEGHA Aspirin 81 mg 03/15/24 09:00 03/17/24 09:07 Aspirin 81 Mg Tablet.Dr PO 03/15/25 08:59 81 mg QAM MEGHA Administration Dicyclomine HCl 20 mg 03/15/24 22:00 03/17/24 09:07 Dicyclomine 20 Mg Tablet PO 03/15/25 21:59 20 mg TID.AC.HS MEGHA Administration Famotidine 20 mg 03/14/24 21:00 03/17/24 09:07 Famotidine/Pf 20 Mg/2 Ml Vial IV-PUSH 03/14/25 20:59 20 mg Q12HR MEGHA Administration Lactated Ringer's 1,000 mls @ 150 mls/hr 03/15/24 21:00 03/17/24 05:57 Lactated Ringers IV 03/15/25 20:59 150 mls/hr .Q6H40M MEGHA Administration Ceftriaxone Sodium 2 gm in 50 mls @ 100 mls/hr 03/16/24 14:00 03/16/24 15:46 Rocephin IV Infused Q24H MEGHA Infusion Metronidazole 500 mg in 100 mls @ 100 mls/hr 03/16/24 14:00 03/17/24 06:01 Flagyl IV 100 mls/hr Q8H MEGHA Administration Levothyroxine Sodium 50 mcg 03/15/24 06:30 03/17/24 05:57 Levothyroxine 50 Mcg Tablet PO 03/15/25 06:29 50 mcg DAILY@0630 MEGHA Administration Lidocaine HCl 15 ml 03/14/24 17:47 Lidocaine 2% Viscous 15 Ml Udc MUCOUS MEM 03/14/25 17:46 Q4H PRN indigestion/pain Mexiletine HCl 150 mg 03/14/24 22:00 03/17/24 09:07 Mexiletine 150 Mg Capsule PO 03/14/25 21:59 150 mg TID MEGHA Administration Pantoprazole Sodium 40 mg 03/14/24 21:00 03/17/24 09:07 Pantoprazole 40 Mg Vial IV-PUSH 03/14/25 20:59 40 mg BID MEGHA Administration Sodium Chloride 0 ml 03/14/24 08:50 03/16/24 21:07 Sodium Chloride 0.9 % 10 Ml Syringe IV-PUSH 03/14/25 08:49 10 ml PRN PRN Administration Flush Sodium Chloride 10 ml 03/14/24 14:59 Sodium Chloride 0.9 % 10 Ml Syringe IV-PUSH 03/14/25 14:58 PRN PRN Flush Sodium Chloride 10 ml 03/14/24 17:05 03/16/24 07:44 Sodium Chloride 0.9 % 10 Ml Vial.Pf INJECTION 03/14/25 17:04 10 ml PRN PRN Administration Dilution Sodium Chloride 10 ml 03/14/24 17:05 03/16/24 21:07 Sodium Chloride 0.9 % 10 Ml Syringe IV-PUSH 03/14/25 17:04 10 ml PRN PRN Administration Flush Sodium Chloride 10 ml 03/14/24 17:47 03/16/24 07:44 Sodium Chloride 0.9 % 10 Ml Vial.Pf INJECTION 03/14/25 17:46 10 ml PRN PRN Administration To dilute Pepcid A&P - Hospitalist Assessment/Plan (1) Hypotension: (2) Intractable abdominal pain: (3) Nausea: Plan see above <Statement entered by Shakir Tsai DO - 03/17/24 19:27> I personally saw and examined the patient at the bedside this afternoon. Case was discussed and coordinated in conjunction with student Dr. Velazquez. Agree with management as noted therein. Patient's objective parameters of progressing sepsis and liver dysfunction are all technically trending in a positive direction however ultimately it is questionable if antibiotics alone could appropriately provide definitive treatment to a point of discharge and follow-up. He is not bacteremic on day 1 of blood cultures and leukocytosis is downtrending. He has been afebrile and abdomen is not significantly rigid or guarded. He is constipated and I have stopped Lamictal, started laxatives and stool softeners, one-time Relistor for opioid-induced component of constipation. Will repeat an echocardiogram to assess his overall dysfunction which even if improved still represents high risk of anesthesia. operative therapy would need to be at higher level care. I discussed this with the patient and his significant other at the bedside extensively this afternoon. He does not necessitate a higher level of care transfer to progressive or intensive care at the moment and is tolerating IV fluid hydration quite well without any hypoxia or respiratory distress. He still clinically is dehydrated appearing but is making good urine and renal function is preserved we will continue to monitor these parameters. I will reach out to [facility] to discuss with general surgery and initiate what will likely be a necessary transfer. Explained to family that often accepting physician is easily obtained but that bed availability and delay of transfer is quite common if not acutely ill. Documented By: Shakir Tsai DO 03/17/24 10 42 Signed By: <Electronically signed by Shakir Tsai DO> 03/17/241926 [facility] Work Phone: 1([phone]) 472-498308-14-2024 Progress note Author Shakir Tsai [facility] March 16, 2024 5:14pm Note Date/Time March 16, 2024 11 :41am [facility] [address] [place] [address] Hospitalist Progress Note Signed Patient: Shawna Hernandes MR#: [id number] : 1945 Acct:[id number] Age/Sex: 79 / M Adm Date: 4 Loc: 3T Room: [address] [place] [address] Type: ADM IN Attending Dr: Shakir Tsai DO Copies to: ~ Date of Service: 03/16/2024 Subjective Subjective Narrative: Mr Sahwna Hernandes is a?with a 79M PMHx of GERD, TIA, HLD, HTN, CHF, [place] s/p biventricular pacemaker defibrillator who presented to ED with severe abdominal pain. On Hospital day #2 pt is feeling the same as yesterday. The pain has moved down to right lower quadrant. Says it almost feels like it spasms and the pain comes on strong sometimes and then lowers back down. The pain overall is still constant. He denies any odynophagia or nausea with eating. He has not had any dry-heaving since yesterday. Acute problems: 1. Severe Sepsis secondary to Cholecystitis - Continue pain and antinausea medications - GI consult; potential Ultrasound, no EGD - Protonix 40mg BID - Bentyl 20mg TID - Pepcid 20mg BID - Viscous lidocaine PRN - Repeat CT results pending 2. Hypotension - Fluid resuscitation with LR - Cortisol AM 37.1 - TSH 0.34, T3 2.18, T4 2.15; pt is treated with levothyroxine for hypothyroidism and this could explain abnormal values - cautiously reinstitute BP medications Chronic conditions requiring attention while inpatient: continue home meds unless otherwise listed below. Additional plans below. - HTN - HLD - CHF - GERD - TIA DVT PPx: SCDs Diet: Regular Diet CODE STATUS: Full Code Dispo: Admitted to medical floor for observation Plan of care Discussed with:?the medical team, the patient Exam Physical Exam Vital Signs: Temp Pulse Resp BP Pulse Ox O2 Del Method 98.0 F 60 18 102/68 94 L Room Air 03/16/24 11:20 03/16/24 11:20 03/16/24 11:20 03/16/24 11:20 03/16/24 11:20 03/16/24 11:20 Narrative: GENERAL: ill-appearing, fatigued, pale HEENT: NC/AT, EOMI, PERRL, conjunctiva clear CARDIOVASCULAR: Regular rate and regular rhythm, no murmurs RESPIRATORY: nonlabored work of breathing on room air, clear to auscultation bilaterally, symmetric chest rise ABDOMEN: Soft, minimally distended, slight guarding, minimally rigid, tender in epigastric region and RLQ to light palpation, BACK: No midline or paraspinal tenderness EXTREMITIES: moving all extremities. Well-perfused. Sensation intact. No edema NEURO: Cranial nerves grossly intact, no focal neurologic signs PSYCHIATRIC: Good eye contact, appropriate mood and affect Objective Lab Results 03/16/24 14:56 03/16/24 14:56 Meds Allergies and Active Meds Allergies No Known Allergies Allergy (Verified 03/14/24 08:51) Active Meds: Active Medications Generic Name Dose Route Start Last Admin Trade Name Freq PRN Reason Stop Dose Admin Amiodarone HCl 200 mg 03/15/24 09:00 03/16/24 09:08 Amiodarone 200 Mg Tablet PO 03/15/25 08:59 Not Given QAM MEGHA Aspirin 81 mg 03/15/24 09:00 03/16/24 09:08 Aspirin 81 Mg Tablet. PO 03/15/25 08:59 Not Given QAM MEGHA Dicyclomine HCl 20 mg 03/15/24 22:00 03/16/24 11:15 Dicyclomine 20 Mg Tablet PO 03/15/25 21:59 20 mg TID.AC.HS MEGHA Administration Famotidine 20 mg 03/14/24 21:00 03/16/24 09:08 Famotidine/Pf 20 Mg/2 Ml Vial IV-PUSH 03/14/25 20:59 Not Given Q12HR MEGHA Lactated Ringer's 1,000 mls @ 150 mls/hr 03/15/24 21:00 03/16/24 11:15 Lactated Ringers IV 03/15/25 20:59 150 mls/hr .[id number] MEGHA Administration Levothyroxine Sodium 50 mcg 03/15/24 06:30 03/16/24 06:15 Levothyroxine 50 Mcg Tablet PO 08/13/25 06:29 50 mcg DAILY@0630 MEGHA Administration Lidocaine HCl 15 ml 03/14/24 17:47 Lidocaine 2% Viscous 15 Ml Udc MUCOUS MEM 03/14/25 17:46 Q4H PRN indigestion/pain Mexiletine HCl 150 mg 03/14/24 22:00 03/16/24 09:08 Mexiletine 150 Mg Capsule PO 03/14/25 21:59 Not Given TID MEGHA Pantoprazole Sodium 40 mg 03/14/24 21:00 03/16/24 09:08 Pantoprazole 40 Mg Vial IV-PUSH 03/14/25 20:59 Not Given BID MEGHA Sodium Chloride 0 ml 03/14/24 08:50 03/14/24 12:32 Sodium Chloride 0.9 % 10 Ml Syringe IV-PUSH 03/14/25 08:49 10 ml PRN PRN Administration Flush Sodium Chloride 10 ml 03/14/24 14:59 Sodium Chloride 0.9 % 10 Ml Syringe IV-PUSH 03/14/25 14:58 PRN PRN Flush Sodium Chloride 10 ml 03/14/24 17:05 03/16/24 07:44 Sodium Chloride 0.9 % 10 Ml Vial.Pf INJECTION 03/14/25 17:04 10 ml PRN PRN Administration Dilution Sodium Chloride 10 ml 03/14/24 17:05 Sodium Chloride 0.9 % 10 Ml Syringe IV-PUSH 03/14/25 17:04 PRN PRN Flush Sodium Chloride 10 ml 03/14/24 17:47 03/16/24 07:44 Sodium Chloride 0.9 % 10 Ml Vial.Pf INJECTION 03/14/25 17:46 10 ml PRN PRN Administration To dilute Pepcid A&P - Hospitalist Assessment/Plan (1) Hypotension: (2) Intractable abdominal pain: (3) Nausea: Plan see above <Statement entered by Shakir Tsai, - 03/16/24 16:01> % Examined patient at the bedside this afternoon. Case was discussed and coordinated in conjunction with student Dr. Velazquez. I agree with management asnoted therein. Patient's pain has been difficult to elucidate since admission with varying manifestations different areas described sometimes pulsating, sometimes sharp and sudden onset. He also had a esophageal dilation and endorsed upper esophageal odynophagia type of pain as well. Initially midepigastric comfort now has seemed to transition more to a lower right quadrant abdominal pain. He has remained afebrile but was somewhat shaky yesterday and lower tenderness was elicited. Subsequent repeat CT with oral contrast today shows the same large gallbladder however this time notable for wall thickening and edema concerning for colitis. His white blood cell count today spiked significantly to 24.7. H&H down to 9.04/2032.6% without any bleeding. No diarrhea. No vomiting. She is complaints of abdominal pain and spasms. Platelets 130. He is visibly tachypneic but reports some shortness of breath, cough, chest pain or dizziness. He has been on telemetry and pacer pacemaker was interrogated and reportedly functional. All of this in conjunction led to a subsequent stat sepsis workup with blood cultures drawn this afternoon. Broad-spectrum antibiotics with Rocephin and Flagyl were initiated. Mild thrombocytopenia is noted subsequentlyelected against treating with Zosyn. Patient is a bit pale and ill-appearing overall and despite aggressive IV hydration he has lower blood pressures and drymucous membranes on examination. Continue lactated Ringer's. His repeat labs this afternoon show a stable CBC, uptrending INR to 1.3 and stable sodium 132, kidney function but some lactic acid elevation of 2.4. His total bilirubin is stable at 1.1, indirect bilirubin 0.7, direct 0.4. AST and ALT have both up trended going from 61 -> 101 and 94 -> 188 respectively. Alkaline phosphatase remains within normal limits at 49. The patient has some tenderness more so elicited in the lower abdomen but no rigidity or signs of an acute abdomen. We will continue aggressive antibiotic therapy for presumed sepsis from cholecystitis. Monitor for ascending cholangitis. I have consulted general surgery on a routine basis and did discuss the case with them this afternoon. Ultimately with his significant cardiovascular history severe pulmonary hypertension, LV ejection fraction 10 to15% associated congestive hepatopathy has surgical risk if ultimately warranted for this is extremely high and would likely necessitate transfer. Documented By: Shakir Tsai DO 03/16/24 11 32 Signed By: <Electronically signed by Shakir Tsai DO> 03/16/24 278[address] [facility] Work Phone: 1(603) 223-539108-13-2024 Progress note Author Shakir Tsai [facility] March 15, 2024 8:54pm Note Date/Time March 15, 2024 11 :24am [facility] [address] [place] [address] Hospitalist Progress Note Signed Patient: Shawna Hernandes MR#: [id number] : 1945 Acct:[id number] Age/Sex: 79 / M Adm Date: 4 Loc: Room: [address] [place] [address] Type: ADM IN Attending Dr: Shakir Tsai DO Copies to: ~ Date of Service: 03/15/2024 Subjective Subjective Narrative: Mr Shawna Hernandes is a?with a 79M PMHx of GERD, TIA, HLD, HTN, CHF, MN s/p biventricular pacemaker defibrillator who presented to ED with severe abdominal pain. On Hospital day #1 pt is feeling the same as yesterday. He says the abdominal pain is a 7/10 and is very slightly better than yesterday. he says the pain medications are not helping. Yesterday afternoon the pain transitioned to almostlike heartburn but he says it is now back to sharp and constant. The pain is still localized to the epigastric region and does not radiate. He was able to eat a small meal yesterday. The pain didn't change and he endorses nausea but novomiting. He says he has still been dry heaving but it has decreased since yesterday. He is currently NPO awaiting GI consult. His BP was still low this AM at 91/53. Upon questioning the pt says he is usually around 88 systolic and he takes his BP 3-4x daily. He says that it is usually pretty low in the AM and then slowly increases throughout the day. His O2 sat was lower this am at 94% but pt denies any SOB or discomfort with breathing. Acute problems: 1. Abdominal Pain: - Continue pain and antinausea medications - GI consult - Protonix 40mg BID - Consider repeat CT with PO/IV contrast 2. Hypotension - Fluid resuscitation - Cortisol AM pending - TSH 0.34, T3 2.18, T4 2.15; pt is treated with levothyroxine for hypothyroidism and this could explain abnormal values - cautiously reinstitute BP medications Chronic conditions requiring attention while inpatient: continue home meds unless otherwise listed below. Additional plans below. - HTN - HLD - CHF - GERD - TIA DVT PPx: SCDs Diet: Regular Diet CODE STATUS: Full Code Dispo: Admitted to medical floor for observation Plan of care Discussed with:?the medical team, the patient Exam Physical Exam Vital Signs: Temp Pulse Resp BP Pulse Ox O2 Del Method 97.8 F 60 16 91/53 L 94 L Room Air 03/15/24 05:47 03/15/24 05:47 03/15/24 05:47 03/15/24 05:47 03/15/24 05:47 03/15/24 05:52 Narrative: GENERAL: ill-appearing, fatigued, pale HEENT: NC/AT, EOMI, PERRL, conjunctiva clear CARDIOVASCULAR: Regular rate and regular rhythm, no murmurs RESPIRATORY: nonlabored work of breathing on room air, clear to auscultation bilaterally, symmetric chest rise ABDOMEN: Soft, minimally distended, tender in epigastric region to light palpation and RLQ to deep palpation BACK: No midline or paraspinal tenderness EXTREMITIES: moving all extremities well. Well-perfused. Sensation intact. No edema NEURO: Cranial nerves grossly intact, no focal neurologic signs PSYCHIATRIC: Good eye contact, appropriate mood and affect Objective Lab Results 03/14/24 11:36 03/14/24 11:36 Meds Allergies and Active Meds Allergies No Known Allergies Allergy (Verified 03/14/24 08:51) Active Meds: Active Medications Generic Name Dose Route Start Last Admin Trade Name Freq PRN Reason Stop Dose Admin Amiodarone HCl 200 mg 03/15/24 09:00 03/15/24 09:08 Amiodarone 200 Mg Tablet PO 03/15/25 08:59 200 mg QAM MEGHA Administration Aspirin 81 mg 03/15/24 09:00 03/15/24 09:08 Aspirin 81 Mg Tablet.Dr PO 03/15/25 08:59 81 mg QAM MEGHA Administration Dicyclomine HCl 20 mg 03/14/24 21:46 Dicyclomine 20 Mg Tablet PO 03/14/25 21:45 TID.AC.HS PRN Cramping Famotidine 20 mg 03/14/24 21:00 03/15/24 09:08 Famotidine/Pf 20 Mg/2 Ml Vial IV-PUSH 03/14/25 20:59 20 mg Q12HR MEGHA Administration Levothyroxine Sodium 50 mcg 08/13/24 06:30 03/15/24 05:50 Levothyroxine 50 Mcg Tablet PO 03/15/25 06:29 50 mcg DAILY@0630 MEGHA Administration Lidocaine HCl 15 ml 03/14/24 17:47 Lidocaine 2% Viscous 15 Ml Udc MUCOUS MEM 03/14/25 17:46 Q4H PRN indigestion/pain Mexiletine HCl 150 mg 03/14/24 22:00 03/15/24 09:08 Mexiletine 150 Mg Capsule PO 03/14/25 21:59 150 mg TID MEGHA Administration Pantoprazole Sodium 40 mg 03/14/24 21:00 03/15/24 09:26 Pantoprazole 40 Mg Vial IV-PUSH 03/14/25 20:59 40 mg BID MEGHA Administration Sodium Chloride 0 ml 03/14/24 08:50 03/14/24 12:32 Sodium Chloride 0.9 % 10 Ml Syringe IV-PUSH 03/14/25 08:49 10 ml PRN PRN Administration Flush Sodium Chloride 10 ml 03/14/24 14:59 Sodium Chloride 0.9 % 10 Ml Syringe IV-PUSH 03/14/25 14:58 PRN PRN Flush Sodium Chloride 10 ml 03/14/24 17:05 03/15/24 09:26 Sodium Chloride 0.9 % 10 Ml Vial.Pf INJECTION 03/14/25 17:04 10 ml PRN PRN Administration Dilution Sodium Chloride 10 ml 03/14/24 17:05 Sodium Chloride 0.9 % 10 Ml Syringe IV-PUSH 03/14/25 17:04 PRN PRN Flush Sodium Chloride 10 ml 03/14/24 17:47 03/15/24 09:08 Sodium Chloride 0.9 % 10 Ml Vial.Pf INJECTION 03/14/25 17:46 10 ml PRN PRN Administration To dilute Pepcid A&P - Hospitalist Assessment/Plan (1) Hypotension: (2) Intractable abdominal pain: (3) Nausea: Plan see above <Statement entered by Shakir Tsai DO - 03/15/24 20:54> I personally saw examined patient at the bedside this evening. Case was discussed and coordinated conjunction with student Dr. Velazquez. I agree with management as noted therein. Despite holding most of the patient's home antihypertensive meds he is still relatively hypotensive. He has some ongoing oral intake and questionable relation of p.o. intake to his symptoms. No EGD per GI with no further recommendations, signed off. This evening he describes a pulsating type of pain in his upper and sometimes lower abdomen and at the bedside does exhibit some rigidity/tremors at moments. During this sort of symptom he has more lower abdominal pain and I am able to elicit tenderness. He has no significant rigidity or guarding. Agreeable to further IV hydration, symptomatic care and to attempt treatment with Bentyl thisevening for what seems to be more spasm type of pain this evening. He has mild LFT elevation that could be hypotensive injury and/or chronic cardiac congestion with right-sided failure. Continue IV fluids and follow labs. Consider echocardiogram if cardiac symptoms develop. No hypoxia or cardiac symptoms presently. With ongoing intractable pain and no explanation for this I will order an abdominal CT tomorrow with IV contrast and p.o. contrast for better visualization of obstructive or hepatic pathology not seen on initial CTA imaging. With low blood pressure low flow state and mesenteric ischemia cannot totally be excluded. Documented By: Shakir Tsai DO 03/15/24 09 46 Signed By: <Electronically signed by Shakir Tsai DO> 03/15/242053 [facility] Work Phone: 1(461) 861-728308-13-2024 Consult note Author Darek Kelley [facility] March 15, 2024 1:26pm Note Date/Time March 15, 2024 1: 25pm [facility] [address] [place] [address] Gastroenterology Consult Note Signed Patient: Shawna Hernandes MR#: [id number] : 1945 Acct:[id number] Age/Sex: 79 / M Adm Date: 4 Loc: Room: [address] [place] [address] Type: ADM IN Attending Dr: Shakir Tsai DO Copies to: MD Agus Murcia DO Michael R. Frings, DO~ HPI Data of Consult Date of Consultation: 03/15/24 Requesting Physician: Shakir Tsai DO Consult Narrative History of present illness: Mr. Hernandes is a 79 year old male admitted with abdominal pain, who we are consulted for abdominal pain. The patient follows in our GI office locally, have recent EGD notable for a minor Schatzki's ring but otherwise unremarkable. He states he has had 2 episodes of sharp epigastric abdominal pain. He recentlyhad his PPI reduced. No change in his bowel habits. Slight elevation in his white count. Other labs are chronically altered and stable. CTA did not show any significant findings. cc:: CC: Shakir Tsai DO COUNTS INCLUDE 234 BEDS AT THE [facility] Medical History Defibrillator discharge TBI (traumatic brain injury) Neuropathy TIA (transient ischemic attack) Macular degeneration BPH (benign prostatic hyperplasia) Cardiomyopathy Hyperlipemia Hypertension CHF (congestive heart failure) History of myocardial infarction Surgical History Status post biventricular pacemaker History of vasectomy History of phacoemulsification of cataract of both eyes with intraocular lens implantation History of tonsillectomy History of cystoscopy History of hernia surgery History of cardiac catheterization AICD (automatic cardioverter/defibrillator) present Family History Father Myocardial infarction Mother Hypertension Brother History of heart surgery Brother Heart disease Sister Hypertension Thyroid disease Sister Hypertension Thyroid disease Brother Hypertension Legacy FamHx Relation: Brother(s) Heart disease Legacy FamHx Relation: Brother(s) Father Heart disease 50 yrs Mother 89 yrs Sister Hypertension Heart disease Social History Smoking Status: Former smoker Tobacco Type: cigarettes Substance Use Type: None Substance Abuse Comment: rarely Social History Comments: He admits that he did smoke but it was 50 years ago andat that time he only smoked for 3 years and it was a pipe only and that he did not inhale. Rarely drank any alcohol. Meds Medications and Allergies Allergies No Known Allergies Allergy (Verified 03/14/24 08:51) Home Medications aspirin 81 mg tablet,delayed release 81 mg PO QAM 11/15/17 [History Confirmed 03/14/24] bumetanide 1 mg tablet 1 mg PO QAM 11/15/17 [History Confirmed 03/14/24] nitroglycerin 0.4 mg sublingual tablet (Nitrostat) 0.4 mg sublingual DIRECTEDPRN Chest Pain 11/15/17 [History Confirmed 03/14/24] biotin 5 mg capsule 5 mg PO QAM 09/02/19 [History Confirmed 03/14/24] vit A 300 mcg-C 200 mg-E 27 mg-lutein 2 mg and minerals tablet (Eye Health Plus Lutein) 1 tab PO QAM 09/02/19 [History Confirmed 03/14/24] vitamin B complex 1 cap PO QAM 09/02/19 [History Confirmed 03/14/24] atorvastatin 80 mg tablet 80 mg PO QAM 08/13/22 [History Confirmed 03/14/24] clopidogrel 75 mg tablet 75 mg PO QAM 08/13/22 [History Confirmed 03/14/24] levothyroxine 50 mcg tablet 50 mcg PO QAM 08/13/22 [History Confirmed 03/14/24] empagliflozin 10 mg tablet (Jardiance) 10 mg PO DAILY 11/21/22 [History Confirmed 03/14/24] spironolactone 25 mg tablet 25 mg PO QAM 30 days #30 tabs 11/25/22 [Rx Confirmed 03/14/24] amiodarone 100 mg tablet 200 mg PO QAM 04/17/23 [History Confirmed 03/14/24] magnesium oxide 400 mg (241.3 mg magnesium) tablet 400 mg PO DAILY 04/17/23 [History Confirmed 03/14/24] mexiletine 150 mg capsule 150 mg PO TID 04/17/23 [History Confirmed 03/14/24] ascorbate calcium (vitamin C) 500 mg tablet 500 mg PO DAILY 02/19/24 [History Confirmed 03/14/24] carvedilol 12.5 mg tablet 12.5 mg PO BID 02/19/24 [History Confirmed 03/14/24] pantoprazole 40 mg tablet,delayed release 40 mg PO DAILY 30 days #30 tabs 02/19/24 [Rx Confirmed 03/14/24] sacubitril 49 mg-valsartan 51 mg tablet (Entresto) 1 tab PO BID 02/19/24 [History Confirmed 03/14/24] Exam Physical Exam Vital Signs: Temp Pulse Resp BP Pulse Ox O2 Del Method 97.6 F 60 17 101/64 93 L Room Air 03/15/24 11:53 03/15/24 11:53 03/15/24 11:53 03/15/24 11:53 03/15/24 11:53 03/15/24 11:53 Const General: no acute distress and well developed HEENT Head: normocephalic and atraumatic Mouth: moist mucous membranes Eyes Sclera: sclerae normal (no scleral icterus) EOM: EOM intact bilaterally Neck Other: trachea midline Resp Effort & Inspection: normal respiratory effort and able to speak in complete sentences GI Inspection: normal to inspection and non-distended Palpation: soft and nontender Skin General: turgor normal and no jaundice Neuro General: patient alert and patient oriented x3 Psych Appearance: grossly normal Mental Status: mental status grossly normal Results - Gastroenterology Labs Labs: Laboratory Results - last 24 hr 03/14/24 03/14/24 03/15/24 12:48 14:11 05:59 PT 12.8 INR 1.1 APTT 26.1 Lactic Acid 1.3 1.7 Total Bilirubin 1.1 H Direct Bilirubin 0.30 H Indirect Bilirubin 0.8 AST 61 H ALT 94 H Alkaline Phosphatase 52 Total Protein 6.0 L Albumin 3.5 Globulin 2.5 Albumin/Globulin Ratio 1.4 Free T4 2.15 H Free T3 2.18 L TSH 3rd Generation 0.34 L Total Cortisol 37.1 Urine Color Yellow Urine Appearance Clear Urine pH 6.0 Ur Specific [place] 1.028 Urine Protein Negative Urine Glucose (UA) >=1000 H Urine Ketones Negative Urine Occult Blood Negative Urine Nitrite Negative Urine Bilirubin Negative Urine Urobilinogen Normal Ur Leukocyte Esterase Negative A&P - Gastroenterology Assessment/Plan (1) Intractable abdominal pain: (2) Hypotension: Plan I would recommend increasing his PPI back to twice daily dosing. Can consider right upper quadrant ultrasound and if this is positive for cholecystitis would need surgical consultation. Further workup of abdominal pain per primary team, he does not need repeat endoscopic evaluation at this time. He should follow-upwith his regular 6-month outpatient GI visit. Like you for this consult, little further to add from a GI standpoint. I will peripherally follow Documented By: Darek Kelley MD 03/15/24 1615 Signed By: <Electronically signed by Darek Kelley MD> 03/15/24 1329 [facility] Work Phone: 1(122) 285-971808-13-2024 History and physical note Author Shakir Tsai [facility] March 14, 2024 10:43pm Note Date/Time March 14, 2024 5: 42pm [facility] [address] [place] [address] Hospitalist H&P Signed Patient: Shawna Hernandes MR#: [id number] : 1945 Acct:[id number] Age/Sex: 79 / M Adm Date: 4 Loc: Room: [address] [place] [address] Type: ADM INOo Attending Dr: Shakir Tsai DO Copies to: Agus Nation,DO Shakir Tsai, DO~ HPI DATE OF EXAMINATION: 03/14/24 CHIEF COMPLAINT: Abdominal Pain HISTORY OF PRESENT ILLNESS: Mr Shawna Hernandes is a?with a 79M PMHx of GERD, TIA, HLD, HTN, CHF, [place] s/p biventricular pacemaker defibrillator who presented to ED with severe abdominal pain. Pt states the pain started at 3 am. He rates it as 8/10 and says it is constant and has not let up since it first started. The pain is located right in the middle of his abdomen under the bottom of his sternum in the epigastric region. The pain doesn't radiate. At the moment he says the pain feels similar to when he has really bad heartburn. He denies vomiting but says he is nauseated and hasbeen dry heaving on and off since the pain started. He did not try any medications at home for the pain. Moving around and changing positions does not change the level of pain. He denies sick contacts or eating anything out of the ordinary. He says two nights ago he had a very small episode of the same pain that occurred randomly but he didn't think anything of it at the time because itwent away quickly. He denies CP, palpitations, SOB, cough. He has not noticed any red in his urine or dark stool. His abdomen is mildly tender to palpation inthe hypogastric and epigastric region. He says he has been urinating normally but has not had a BM since yesterday which is unusual. He was very cold while inthe ER and was laying under 4-5 blankets when assessed. ED course significant for Abd/Pelvis CTA without significant findings and EKG with pending results. Initial lab work reveals mild anemia that is stable from previous admissions. Neutrophils are increased to 10.6. Troponin and lactic acidwithin normal limits. Pt is admitted to the floor for observation. Acute problems: 1. Abdominal Pain: - Continue pain and antinausea medications - Consider GI consult - Protonix 40mg BID 2. Hypotension - Fluid resuscitation - Cortisol AM - TSH, T3, T4 in AM - cautiously reinstitute BP medications Chronic conditions requiring attention while inpatient: continue home meds unless otherwise listed below. Additional plans below. - HTN - HLD - CHF - GERD - TIA DVT PPx: SCDs Diet: Regular Diet CODE STATUS: Full Code Dispo: Admitted to medical floor for observation Plan of care Discussed with:?the medical team, the patient Review of Systems Review of Systems All other systems reviewed & are negative unless noted below or in HPI COUNTS INCLUDE 234 BEDS AT THE [facility] Medical History Defibrillator discharge TBI (traumatic brain injury) Neuropathy TIA (transient ischemic attack) Macular degeneration BPH (benign prostatic hyperplasia) Cardiomyopathy Hyperlipemia Hypertension CHF (congestive heart failure) History of myocardial infarction Surgical History Status post biventricular pacemaker History of vasectomy History of phacoemulsification of cataract of both eyes with intraocular lens implantation History of tonsillectomy History of cystoscopy History of hernia surgery History of cardiac catheterization AICD (automatic cardioverter/defibrillator) present Family History Father Myocardial infarction Mother Hypertension Brother History of heart surgery Brother Heart disease Sister Hypertension Thyroid disease Sister Hypertension Thyroid disease Brother Hypertension Legacy FamHx Relation: Brother(s) Heart disease Legacy FamHx Relation: Brother(s) Father Heart disease 50 yrs Mother 89 yrs Sister Hypertension Heart disease Social History Smoking Status: Never smoker Tobacco Type: cigarettes Substance Use Type: None Substance Abuse Comment: rarely Social History Comments: He admits that he did smoke but it was 50 years ago andat that time he only smoked for 3 years and it was a pipe only and that he did not inhale. Rarely drank any alcohol. Meds Medications and Allergies Allergies No Known Allergies Allergy (Verified 03/14/24 08:51) Home Medications aspirin 81 mg tablet,delayed release 81 mg PO QAM 11/15/17 [History Confirmed 03/14/24] bumetanide 1 mg tablet 1 mg PO QAM 11/15/17 [History Confirmed 03/14/24] nitroglycerin 0.4 mg sublingual tablet (Nitrostat) 0.4 mg sublingual DIRECTEDPRN Chest Pain 11/15/17 [History Confirmed 03/14/24] biotin 5 mg capsule 5 mg PO QAM 09/02/19 [History Confirmed 03/14/24] vit A 300 mcg-C 200 mg-E 27 mg-lutein 2 mg and minerals tablet (Eye Health Plus Lutein) 1 tab PO QAM 09/02/19 [History Confirmed 03/14/24] vitamin B complex 1 cap PO QAM 09/02/19 [History Confirmed 03/14/24] atorvastatin 80 mg tablet 80 mg PO QAM 08/13/22 [History Confirmed 03/14/24] clopidogrel 75 mg tablet 75 mg PO QAM 08/13/22 [History Confirmed 03/14/24] levothyroxine 50 mcg tablet 50 mcg PO QAM 08/13/22 [History Confirmed 03/14/24] empagliflozin 10 mg tablet (Jardiance) 10 mg PO DAILY 11/21/22 [History Confirmed 03/14/24] spironolactone 25 mg tablet 25 mg PO QAM 30 days #30 tabs 11/25/22 [Rx Confirmed 03/14/24] amiodarone 100 mg tablet 200 mg PO QAM 04/17/23 [History Confirmed 03/14/24] magnesium oxide 400 mg (241.3 mg magnesium) tablet 400 mg PO DAILY 04/17/23 [History Confirmed 03/14/24] mexiletine 150 mg capsule 150 mg PO TID 04/17/23 [History Confirmed 03/14/24] ascorbate calcium (vitamin C) 500 mg tablet 500 mg PO DAILY 02/19/24 [History Confirmed 03/14/24] carvedilol 12.5 mg tablet 12.5 mg PO BID 02/19/24 [History Confirmed 03/14/24] pantoprazole 40 mg tablet,delayed release 40 mg PO DAILY 30 days #30 tabs 02/19/24 [Rx Confirmed 03/14/24] sacubitril 49 mg-valsartan 51 mg tablet (Entresto) 1 tab PO BID 02/19/24 [History Confirmed 03/14/24] Exam Physical Exam Vital Signs: Temp Pulse Resp BP Pulse Ox O2 Del Method 97.4 F L 60 18 89/52 L 97 Room Air 03/14/24 08:48 03/14/24 15:36 03/14/24 15:36 03/14/24 15:36 03/14/24 15:36 03/14/24 15:36 Narrative: GENERAL: ill-appearing, fatigued, pale HEENT: NC/AT, EOMI, PERRL, conjunctiva clear CARDIOVASCULAR: Regular rate and regular rhythm, no murmurs RESPIRATORY: nonlabored work of breathing on room air, clear to auscultation bilaterally, symmetric chest rise ABDOMEN: Soft, minimally distended, tender in hypogastric and epigastric region BACK: No midline or paraspinal tenderness EXTREMITIES: moving all extremities well. Well-perfused. Sensation intact. No edema NEURO: Cranial nerves grossly intact, no focal neurologic signs PSYCHIATRIC: Good eye contact, appropriate mood and affect Results - Hospitalist H&P Lab Results Labs: Laboratory Last Values Corrected WBC 12.0 X10E3/uL (4.1-10.5) H 03/14/24 11:36 Uncorrected WBC Count 12.0 x10E3/uL (4.1-10.5) H 03/14/24 11:36 RBC 3.82 X10E6/uL (3.90-5.60) L 03/14/24 11:36 Hgb 12.9 g/dL (13.0-17.0) L 03/14/24 11:36 Hct 38.1 % (38.8-50.0) L 03/14/24 11:36 MCV 99.7 fl (83.5-101) 03/14/24 11:36 MCH 33.7 pg (27.5-35.2) 03/14/24 11:36 MCHC 33.9 g/dL (32.5-35.6) 03/14/24 11:36 RDW 13.9 % (12.0-14.8) 03/14/24 11:36 Plt Count 179 x10E3/uL (150-450) 03/14/24 11:36 MPV 10.0 fl (6.6-10.1) 03/14/24 11:36 Neut % (Auto) 88.9 % (.) 03/14/24 11:36 Lymph % (Auto) 4.6 % (.) 03/14/24 11:36 Rush % (Auto) 5.8 % (.) 03/14/24 11:36 Eos % (Auto) 0.5 % (.) 03/14/24 11:36 Baso % (Auto) 0.2 % (.) 03/14/24 11:36 Nucleat RBC Rel Count 0.0 /100 WBC (0-0.5) 03/14/24 11:36 Neut # (Auto) 10.6 x10E3/uL (1.8-7.7) H 03/14/24 11:36 Lymph # (Auto) 0.6 x10E3/uL (1.00-4.8) L 03/14/24 11:36 Rush # (Auto) 0.7 x10E3/uL (0.0-0.8) 03/14/24 11:36 Eos # (Auto) 0.1 x10E3/uL (0.0-0.45) 03/14/24 11:36 Baso # (Auto) 0.0 x10E3/uL (0.0-0.2) 03/14/24 11:36 Monocyte Dist Width 16.99 % (0.00-20.00) 03/14/24 11:36 PHA Creatinine Clear 30.90 03/14/24 11:36 Sodium 136 mmol/L (136-145) 03/14/24 11:36 Potassium 4.7 mmol/L (3.5-5.1) 03/14/24 11:36 Chloride 101 mmol/L (98-107) 03/14/24 11:36 Carbon Dioxide 27.2 mmol/L (21.0-31.0) 03/14/24 11:36 Anion Gap 12.5 mEq/L (6.0-15.0) 03/14/24 11:36 BUN 35 mg/dL (7-25) H 03/14/24 11:36 Creatinine 2.16 mg/dL (0.70-1.30) H 03/14/24 11:36 Est GFR (CKD-EPI) 30.574 mL/Min 03/14/24 11:36 Glucose 152 mg/dL (70-100) H 03/14/24 11:36 Lactic Acid 1.3 mmol/L (0.5-2.2) 03/14/24 12:48 Calcium 8.7 mg/dL (8.6-10.3) 03/14/24 11:36 Total Bilirubin 0.9 mg/dl (0.3-1.0) 03/14/24 11:36 Direct Bilirubin 0.20 mg/dL (0.03-0.18) H 03/14/24 11:36 Indirect Bilirubin 0.7 mg/dL 03/14/24 11:36 AST 33 U/L (13-39) 03/14/24 11:36 ALT 58 U/L (7-52) H 03/14/24 11:36 Alkaline Phosphatase 58 U/L (34-104) 03/14/24 11:36 Troponin I High Sens 8.0 pg/mL (0.0-20.0) 03/14/24 11:36 Total Protein 6.6 gm/dL (6.4-8.9) 03/14/24 11:36 Albumin 3.9 gm/dL (3.5-5.7) 03/14/24 11:36 Globulin 2.7 gm/dL 03/14/24 11:36 Albumin/Globulin Ratio 1.4 03/14/24 11:36 Lipase 15.0 U/L (11.0-82.0) 03/14/24 11:36 Urine Color Yellow (Yellow) 03/14/24 14:11 Urine Appearance Clear (Clear) 03/14/24 14:11 Urine pH 6.0 (5.0-9.0) 03/14/24 14:11 Ur Specific [place] 1.028 (1.001-1.030) 03/14/24 14:11 Urine Protein Negative mg/dL (Negative) 03/14/24 14:11 Urine Glucose (UA) >=1000 mg/dL (Normal) H 03/14/24 14:11 Urine Ketones Negative (Negative) 03/14/24 14:11 Urine Occult Blood Negative (Negative) 03/14/24 14:11 Urine Nitrite Negative (Negative) 03/14/24 14:11 Urine Bilirubin Negative (Negative) 03/14/24 14:11 Urine Urobilinogen Normal mg/dL (Normal) 03/14/24 14:11 Ur Leukocyte Esterase Negative (Negative) 03/14/24 14:11 Assessment & Plan Assessment/Plan (1) Hypotension: (2) Intractable abdominal pain: (3) Nausea: Plan see above IP vs OBS Justification Based on differential dx, clinical care plan, and risk of adverse events, if untreated, in my clinical judgement this patient requires an acute care setting as: OBSERVATION because of an expectation of an under 2 midnight stay. Estimated length of stay (# of days): 2 <Statement entered by Shakir Tsai DO - 03/14/24 22:43> I personally saw examined patient at the bedside this evening. Case was discussed with earlier this evening with student Dr. Velazquez and I agree with management as noted therein. The patient has generally low blood pressure and ongoing pain. His abdomen is not acute in nature with no guarding or rigidity but he describes this discomfort as quite severe still despite medicating in theER. I will provide him IV Dilaudid this evening symptomatically and an additional liter of fluid for his relatively low blood pressure despite IV hydration. He has no other signs of infection or sepsis. A.m. cortisol and other causes of low blood pressure will be evaluated. Chronic antihypertensive medications provided for heart failure will be placed on hold as these 2 could be also still exhibiting affect. He he also states lately the previously noted dysphagia has flared up as well along with heartburn symptoms but these are different from the severe onset of upper abdominal pain prompting him to come in today. Will consult GI for consideration for any recommendations and consideration of endoscopy if warranted. I have added Bentyl for any abdominal spasms type of pain. Could consider repeat CT with p.o./IV contrast if abdomen is worsening and clinical appearance are more rigid. Documented By: Shakir Tsai DO 03/14/24 15 56 Signed By: <Electronically signed by Shakir Tsai DO> 03/14/24 2217 [facility] Work Phone: [phone]) 826-960705-24-2024 History of Present illness Narrative* Ranjan Quiles MD - 12/25/2023 9:20 AM EDT Subjective Shawna Hernandes is a 78 y.o. male Chief Complaint Follow-up HPI Patient is in the office for follow-up after recent visit to the emergency department for 5 AICD shocks. I communicated with the emergency department physicians at the time and I recommended adding mexiletine 150 mg 3 times daily to present dose amiodarone. He tolerated this regimen well and has had no further events. He wants to go back to rehab which I approved. EKG today revealed AV sequentialpacemaker. He has no orthopnea PND and no symptoms of dyspnea on mild activities. Apart from class I obesity physical examination was unremarkable. His medical regimen was reviewed with him and his . I am told by his that the insurance is not going to cover mexiletine. I indicated to her that this is the only medicine we can use and it is generic and we will try to convince his insuranceto approve the medicine. ASSESSMENT AND PLAN: 1. Ischemic cardiomyopathy stage C, functional class II. Ejection fraction 15- 20% by echocardiogramApr2022, cardiac catheterization March 2023 revealed severe three-vessel disease and medical therapy was recommended. Currently stable on uptitration of heart failure therapy. Will maintain current therapy for systolic heart failure which has been well-tolerated. 2. Automated implantable cardioverter defibrillator in place with recent multiple discharges which were appropriate for ventricular tachycardia. He has been on amiodarone and mexiletine was added recently after multiple shocks which so far has worked very well. He continues to follow with electrophysiology. Will maintain stable electrolytes and magnesium level. No change in medical therapy is recommended 3. Hyperlipidemia, on statin therapy. Will continue to follow lipid profile 4. High-risk medications with amiodarone and mexiletine, which will be monitored closely. No toxicities 5. Patient will benefit from return to cardiac rehab phase 3 which was approved. 6. Remote history of atrial fibrillation with amiodarone now on board to reduce the chances of thisbecoming affective. 7. Class I obesity. Encouraged the patient to drop his weight further with diet and exercise. 8. Stage III chronic kidney disease being monitored 9. Recurrent symptomatic ventricular tachycardia requiring multiple AICD discharges. Continue amiodarone and mexiletine Ranjan Quiles MD, FACC Review of Systems All other systems reviewed and are negative. Vitals: 12/25/23 0937 BP: 120/82 BP Location: Left arm Patient Position: Sitting Pulse: 60 Weight: 92.6 kg (204 lb 3.2 oz) Height: 1.727 m (5' 8 ) EKG done in office today Objective Physical Exam Constitutional: Appearance: Normal appearance. HENT: Nose: Nose normal. Neck: Vascular: No carotid bruit. Cardiovascular: Rate and Rhythm: Normal rate. Pulses: Normal pulses. Heart sounds: Normal heart sounds. Pulmonary: Effort: Pulmonary effort is normal. Abdominal: General: Bowel sounds are normal. Palpations: Abdomen is soft. Musculoskeletal: General: Normal range of motion. Cervical back: Normal range of motion. Right lower leg: No edema. Left lower leg: No edema. Skin: General: Skin is warm and dry. Neurological: General: No focal deficit present. Mental Status: He is alert. Psychiatric: Mood and Affect: Mood normal. Behavior: Behavior normal. Thought Content: Thought content normal. Judgment: Judgment normal. Allergies Patient has no known allergies. Current Medications Current Outpatient Medications: amiodarone (Pacerone) 200 mg tablet, take 1 tablet by mouth daily, Disp: 90 tablet, Rfl: 1 ascorbic acid (Vitamin C) 1,000 mg tablet, Take 1 tablet (1,000 mg) by mouth once daily., Disp: , Rfl: aspirin 81 mg EC tablet, Take 1 tablet (81 mg) by mouth once daily., Disp: , Rfl: atorvastatin (Lipitor) 80 mg tablet, take 1 tablet by mouth daily, Disp: 90 tablet, Rfl: 3 beta carotene (vitamin A) 3,000 mcg (10,000 unit) capsule, Take 1 capsule (10,000 Units) by mouth once daily., Disp: , Rfl: biotin 5 mg tablet, Take 1 tablet (5 mg) by mouth once daily., Disp: , Rfl: bumetanide (Bumex) 1 mg tablet, take 1 tablet by mouth daily, Disp: 90 tablet, Rfl: 3 carvedilol (Coreg) 25 mg tablet, Take 1 tablet (25 mg) by mouth 2 times a day., Disp: , Rfl: clopidogrel (Plavix) 75 mg tablet, Take 1 tablet (75 mg) by mouth once daily., Disp: , Rfl: ergocalciferol, vitamin D2, (VITAMIN D2 ORAL), Take 1 capsule by mouth once daily., Disp: , Rfl: fish oil concentrate (Townsend-3) 120-180 mg capsule, Take 1 capsule (1 g) by mouth 2 times a day., Disp: , Rfl: folic acid (Folvite) 400 mcg tablet, Take 1 tablet (400 mcg) by mouth once daily., Disp: , Rfl: Jardiance 10 mg, Take 1 tablet (10 mg) by mouth once daily in the morning. Take before meals., Disp: , Rfl: levothyroxine (Synthroid, Levoxyl) 50 mcg tablet, take 1 tablet by mouth daily as directed, Disp: 90 tablet, Rfl: 3 lutein 6 mg capsule, Take 1 capsule by mouth once daily., Disp: , Rfl: magnesium oxide (Mag-Ox) 400 mg (241.3 mg magnesium) tablet, Take 1 tablet (400 mg) by mouth once daily. Take with food., Disp: , Rfl: mexiletine (Mexitil) 150 mg capsule, Take 1 capsule (150 mg) by mouth 3 times a day., Disp: , Rfl: nitroglycerin (Nitrostat) 0.4 mg SL tablet, Place 1 tablet (0.4 mg) under the tongue every 5 minutes if needed for chest pain., Disp: , Rfl: pantoprazole (ProtoNix) 20 mg EC tablet, Take 1 tablet (20 mg) by mouth 2 times a day., Disp: , Rfl: sacubitriL-valsartan (Entresto) 49-51 mg tablet, Take 1 tablet by mouth 2 times a day., Disp: 180 tablet, Rfl: 3 spironolactone (Aldactone) 25 mg tablet, Take 1 tablet (25 mg) by mouth once daily., Disp: , Rfl: vitamin B complex (SUPER B-50 COMPLEX ORAL), Take 1 tablet by mouth once daily., Disp: , Rfl: vitamin E 180 mg (400 unit) capsule, Take 1 capsule (400 Units) by mouth once daily., Disp: , Rfl: Assessment/Plan 1. Atrial fibrillation, unspecified type (Multi) 2. Cardiomyopathy, ischemic 3. Congestive heart failure, unspecified HF chronicity, unspecified heart failure type (Multi) 4. Essential hypertension, benign 5. BMI 31.0-31.9,adult 6. Never smoked cigarettes 7. High risk medication use Scribe Attestation By signing my name below, Jocelyne Florentino LPN, Scribe attest that this documentation has been prepared under the direction and in the presence of Ranjan Quiles MD. Provider Attestation - Scribe documentation All medical record entries made by the Scribe were at my direction and personally dictated by me. Venancio reviewed the chart and agree that the record accurately reflects my personal performance of the history, physical exam, discussion and plan. [facility] Work Phone: [phone]) 576-474805-24-2024 Instructions* Patient Instructions* Jocelyne Gaytan LPN - 12/25/2023 9:20 AM EDT Please bring all medicines, vitamins, and herbal supplements with you when you come to the office. Prescriptions will not be filled unless you are compliant with your follow up appointments or have a follow up appointment scheduled as per instruction of your physician. Refills should be requested at the time of your visit. Follow up with Pacemaker clinic as scheduled. [facility] Work Phone: [phone]) 377-346005-07-2024 History of Present illness Narrative* Agus Nation DO - 12/08/2023 9:40 AM EDT Subjective SUBJECTIVE: Patient ID: Shawna Hernandes is a 78 y.o. male who presents for a Medicare Annual Wellness exam. HPI The following portions of the patient's history were reviewed and updated as appropriate: allergies, current medications, past family history, past medical history, past social history, past surgicalhistory and problem list. AWV FLOWSHEET : Lifestyle Assessment Do you smoke or use smokeless tobacco?: No If you smoke or use smokeless tobacco, are you ready to quit?: NA Are you exposed to secondhand smoke?: No On average, how many drinks of alcohol do you consume in a week?: 1 or less Do you exercise for 30 or more minutes on average at least 3 days a week?: Always Do you have any tooth, denture, or oral problems?: No Do you snore or has anyone told you that you snore?: No Do you try to eat a balanced diet?: Yes Do you experience leakage of urine, also known as urinary incontinence?: (!) Sometimes Do you have difficulty performing any of these activities? (check all that apply): (!) Walking Fall Risk Fall Risk Assessment Completed?: Yes Have you fallen in the past year?: (!) Yes How many times?: 1 Were you injured?: No Are you worried about falling?: (!) Yes Do you feel unsteady when standing or walking?: (!) Yes Risk Stratification: Moderate Risk Depression Screening Little interest or pleasure in doing things: Not at all Feeling down, depressed, or hopeless: Not at all Trouble falling or staying asleep, or sleeping too much: Not at all Feeling tired or having little energy: Not at all Poor appetite or overeating: Not at all Feeling bad about yourself - or that you are a failure or have let yourself or your family down: Not at all Trouble concentrating on things, such as reading the newspaper or watching television: Not at all Moving or speaking so slowly that other people could have noticed. Or the opposite - being so fidgety or restless that you have been moving around a lot more than usual: Not at all Thoughts that you would be better off , or of hurting yourself in some way: Not at all PEG Scale Safety Assessment Do you have throw rugs on the floor?: No Do you feel safe at your home?: Yes Do you feel unsteady when walking?: (!) Yes Are you having difficulty with driving?: No Do you have trouble seeing?: (!) Yes What assistive device do you use? (check all that apply): (!) Cane, Walker, Wheelchair, Bath bar/seat, Raised toilet seat Hearing Assessment Do you strain or struggle to hear/understand conversations?: No Do you have trouble hearing the television or radio when others do not?: No Does your family ever voice concerns about your hearing?: No Do you wear hearing aid/s?: No Personal Health During the past 4 weeks, how would you rate your overall health?: Good Do you understand how to take all of your medications?: Yes How confident are you that you can control and manage most of your health problems?: (!) Somewhat confident In the past 12 months, how many times have you been hospitalized?: None End of Life Planning Do you have a living will?: (!) No Do you have a durable power of collections attorney?: (!) No Cognitive Screening Do you have trouble remembering or recalling facts or events?: (!) Yes Do family members or caregivers report that you have difficulty remembering things?: (!) Yes 6-Cit: Abnormal REVIEW OF SYSTEMS: Review of Systems Objective PHYSICAL EXAMINATION: Vitals: 12/08/23 0932 Weight: 92.2 kg (203 lb 4.8 oz) Height: 167.6 cm (5' 6 ) Physical Exam Assessment/Plan ASSESSMENT/PLAN Encounter Diagnoses Name Primary? Medicare annual wellness visit, subsequent Yes Screening for depression Health maintenance discussed. Depression screen was negative. At least 3 minute spent administering and discussing Cognitive evaluation revealed impairment. He was encouraged to come back for a further evaluation. He does not have advanced directives in place. He was encouraged to do so. Return in about 1 year (around 12/07/2024). [facility] History of Present illness Narrative * Ranjan Quiles MD - 10/01/2023 10:40 AM EST Subjective Shawna Hernandes is a 78 y.o. male Chief Complaint Follow-up HPI Shawna is in the office with his for follow-up for the problems noted below. He had 1 fall recently with minor injury after he stumbled on the sidewalk. He had no indications of decompensated heart failure, AICD discharge, volume overload, dyspnea on exertion or chest pain. He has no side effectof current medications. He tolerated the increasing doses of Entresto with no significant drop in the blood pressure. His blood pressure reading at home are actually better than our office reading. His examination was only remarkable for class I obesity. He is on amiodarone and his EKG demonstratedsequential atrial ventricular pacemaker rhythm. ASSESSMENT AND PLAN: 1. Ischemic cardiomyopathy stage C, functional class II. Ejection fraction 15- 20% by echocardiogramApr2022, cardiac catheterization March 2023 revealed severe three-vessel disease and medical therapy was recommended. Currently stable on uptitration of heart failure therapy. Will increase Entresto up to 49/50 mg twice daily and leave the rest of his medications as is. 2. Automated implantable cardioverter defibrillator for prevention purposes, being monitored. No recent discharge from the device 3. Hyperlipidemia, on statin therapy. 4. High-risk medications with amiodarone, which will be monitored closely. No toxicities 5. At risk for fall, education to prevent falls was provided 6. Remote history of atrial fibrillation with amiodarone now on board to reduce the chances of thisbecoming affective. 7. Class I obesity. Encouraged the patient to drop his weight further with diet and exercise. 8. Stage III chronic kidney disease being monitored Ranjan Quiles MD, [facility] Review of Systems Respiratory: Positive for shortness of breath. Neurological: Positive for dizziness. Vitals: 10/01/23 1101 BP: 100/60 BP Location: Left arm Patient Position: Sitting Pulse: 60 Weight: 91.6 kg (202 lb) Height: 1.676 m (5' 6 ) EKG done in office today Objective Physical Exam Constitutional: Appearance: Normal appearance. HENT: Nose: Nose normal. Neck: Vascular: No carotid bruit. Cardiovascular: Rate and Rhythm: Normal rate. Pulses: Normal pulses. Heart sounds: Normal heart sounds. Pulmonary: Effort: Pulmonary effort is normal. Abdominal: General: Bowel sounds are normal. Palpations: Abdomen is soft. Musculoskeletal: General: Normal range of motion. Cervical back: Normal range of motion. Right lower leg: No edema. Left lower leg: No edema. Skin: General: Skin is warm and dry. Neurological: General: No focal deficit present. Mental Status: He is alert. Psychiatric: Mood and Affect: Mood normal. Behavior: Behavior normal. Thought Content: Thought content normal. Judgment: Judgment normal. Allergies Patient has no known allergies. Current Medications Current Outpatient Medications: amiodarone (Pacerone) 200 mg tablet, Take 1 tablet (200 mg) by mouth once daily., Disp: , Rfl: ascorbic acid (Vitamin C) 1,000 mg tablet, Take 1 tablet (1,000 mg) by mouth once daily., Disp: , Rfl: aspirin 81 mg EC tablet, Take 1 tablet (81 mg) by mouth once daily., Disp: , Rfl: atorvastatin (Lipitor) 80 mg tablet, Take 1 tablet (80 mg) by mouth once daily., Disp: , Rfl: beta carotene (vitamin A) 3,000 mcg (10,000 unit) capsule, Take 1 capsule (10,000 Units) by mouth once daily., Disp: , Rfl: biotin 5 mg tablet, Take 1 tablet (5 mg) by mouth once daily., Disp: , Rfl: bumetanide (Bumex) 1 mg tablet, take 1 tablet by mouth daily, Disp: 90 tablet, Rfl: 3 carvedilol (Coreg) 25 mg tablet, Take 1 tablet (25 mg) by mouth 2 times a day., Disp: , Rfl: ergocalciferol, vitamin D2, (VITAMIN D2 ORAL), Take 1 capsule by mouth once daily., Disp: , Rfl: famotidine (Pepcid) 20 mg tablet, Take 1 tablet (20 mg) by mouth twice a day., Disp: , Rfl: fish oil concentrate (Townsend-3) 120-180 mg capsule, Take 1 capsule (1 g) by mouth 2 times a day., Disp: , Rfl: folic acid (Folvite) 400 mcg tablet, Take 1 tablet (400 mcg) by mouth once daily., Disp: , Rfl: Jardiance 10 mg, Take 1 tablet (10 mg) by mouth once daily in the morning. Take before meals., Disp: , Rfl: levothyroxine (Synthroid, Levoxyl) 50 mcg tablet, Take 1 tablet (50 mcg) by mouth once daily in themorning. Take before meals., Disp: , Rfl: lutein 6 mg capsule, Take 1 capsule by mouth once daily., Disp: , Rfl: magnesium oxide (Mag-Ox) 400 mg (241.3 mg magnesium) tablet, Take 1 tablet (400 mg) by mouth once daily. Take with food., Disp: , Rfl: mexiletine (Mexitil) 150 mg capsule, Take 1 capsule (150 mg) by mouth 3 times a day., Disp: , Rfl: nitroglycerin (Nitrostat) 0.4 mg SL tablet, Place 1 tablet (0.4 mg) under the tongue every 5 minutes if needed for chest pain., Disp: , Rfl: pantoprazole (ProtoNix) 20 mg EC tablet, Take 1 tablet (20 mg) by mouth once daily., Disp: , Rfl: spironolactone (Aldactone) 25 mg tablet, Take 1 tablet (25 mg) by mouth once daily., Disp: , Rfl: vitamin B complex (SUPER B-50 COMPLEX ORAL), Take 1 tablet by mouth once daily., Disp: , Rfl: vitamin E 180 mg (400 unit) capsule, Take 1 capsule (400 Units) by mouth once daily., Disp: , Rfl: sacubitriL-valsartan (Entresto) 49-51 mg tablet, Take 1 tablet by mouth 2 times a day., Disp: 180 tablet, Rfl: 3 Assessment/Plan 1. Congestive heart failure, unspecified HF chronicity, unspecified heart failure type (CMS/HCC) sacubitriL-valsartan (Entresto) 49-51 mg tablet Follow Up In Cardiology 2. Cardiomyopathy, ischemic sacubitriL-valsartan (Entresto) 49-51 mg tablet 3. Atrial fibrillation, unspecified type (CMS/HCC) ECG 12 Lead 4. Class 1 obesity with body mass index (BMI) of 32.0 to 32.9 in adult, unspecified obesity type, unspecified whether serious comorbidity present 5. Never smoked cigarettes 6. AICD (automatic cardioverter/defibrillator) present 7. Paroxysmal ventricular tachycardia (CMS/HCC) 8. High risk medication use 9. Dyslipidemia Scribe Attestation By signing my name below, I, Maicol Hanson LPN attest that this documentation has been prepared under the direction and in the presence of Ranjan Quiles MD. Provider Attestation - Scribe documentation All medical record entries made by the Scribe were at my direction and personally dictated by me. Ihave reviewed the chart and agree that the record accurately reflects my personal performance of the history, physical exam, discussion and plan. documented in this [facility] Work Phone: [phone]) 791-313502-29-2024 Instructions* Patient Instructions* Ida Morelos LPN - 10/01/2023 10:40 AM EST BMI was above normal measurement. Current weight: 91.6 kg (202 lb) Weight change since last visit (-) denotes wt loss -4 lbs Weight loss needed to achieve BMI 25: 47.4 Lbs Weight loss needed to achieve BMI 30: 16.5 Lbs Provided instructions on dietary changes Provided instructions on exercise. Please bring all medicines, vitamins, and herbal supplements with you when you come to the office. Prescriptions will not be filled unless you are compliant with your follow up appointments or have a follow up appointment scheduled as per instruction of your physician. Refills should be requested at the time of your visit. Fall Prevention Education Given [facility] Work Phone: [phone]) 296-506202-16-2024 History of Present illness Narrative* CATHERINE Everett - 09/18/2023 12:[address] Nation recommends Protonix which won't interfere with his plavix. He can stop the H2 toi while on this and we will send him to GI for intervention. CATHERINE Everett 09/18/23 1220 [facility] History of Present illness Narrative* CATHERINE Everett - 08/27/2023 3:30 PM EST [address] [facility] [id number] Patient: Shawna Hernandes Date of : 1945 Encounter Date: 08/27/2023 History of Present Illness: The patient is a 78 y.o. male, an established patient, and is here for Chief Complaint Patient presents with Sore Throat Couple years . HPI Patient has had trouble swallowing intermittently for several years but in the last 1 month it has gotten much worse. Patient does not remember any intervention/testing in the past several years for the difficulty swallowing. Patient also feels like he has heartburn as he has a dull ache or pressure in his lower sternal area that does not radiate and occurs after he eats. He feels like food gets stuck in his throat and he has to swallow over a lump at times. He does report to intermittent nausea and vomiting and he vomits a few times per week. He is very nauseated and although he took his Phenergan before the appointment he is vomiting during the appointment, vomit is of light yellow color. 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 Sweet and is to have MRI of cervical spine due to weakness and numbness in lower extremities, he has also had prostate surgery for BPH with obstruction. Patient denies any recent falls or chest pain with activity. Problem List Items Addressed This Visit None Visit Diagnoses Esophageal dysphagia - Primary Relevant Orders Fluoroscopy upper GI with esophagus Gastroesophageal reflux disease, unspecified whether esophagitis present Bilious vomiting with nausea Past Medical, Family, and Social History Update: The following portions of the patient's history were reviewed and updated as appropriate: allergies, current medications, past family history, past medical history, past social history, past surgicalhistory and problem list. Past Medical History: Diagnosis Date Arthritis Disease of thyroid gland Hypertension Myocardial infarction ([facility]) Stroke ([facility] [place] Past Surgical History: Procedure Laterality Date CARDIAC CATHETERIZATION CARDIAC SURGERY TONSILLECTOMY Current Outpatient Medications Medication Sig Dispense Refill amiodarone (PACERONE) 200 mg tablet Take 1 tablet (200 mg total) by mouth in the morning. aspirin 81 mg Take 1 tablet (81 mg total) by mouth in the morning. 150 tablet 2 atorvastatin (LIPITOR) 80 mg tablet b complex vitamins tablet Take 1 tablet by mouth in the morning. biotin (BIOTIN) 5 mg capsule Take 1 capsule (5 mg total) by mouth in the morning. 30 capsule 0 bumetanide (BUMEX) 1 mg tablet carvediloL (COREG) 25 mg tablet Take 1 tablet (25 mg total) by mouth in the morning and 1 tablet (25 mg total) before bedtime. clopidogreL (PLAVIX) 75 mg tablet TAKE ONE TABLET BY MOUTH DAILY 90 tablet 1 folic acid (FOLVITE) 400 MCG tablet Take 1 tablet (400 mcg total) by mouth in the morning. 100 tablet 3 JARDIANCE 10 mg tablet tablet take 1 tablet by mouth IN THE MORNING 30 tablet 5 levothyroxine (SYNTHROID, LEVOTHROID) 50 MCG tablet magnesium oxide (MAGOX) 400 mg tablet Take 1 tablet (400 mg total) by mouth in the morning. mexiletine (MEXITIL) 150 mg capsule Take 1 capsule (150 mg total) by mouth 3 (three) times a day. nitroglycerin (NITROSTAT) 0.[address] 1 tablet (0.4 mg total) under the tongue every 5 (five) minutes as needed for chest pain. 25 tablet 3 omega 3-wgc-iko-fish oil 60-90-500 mg capsule,delayed release(DR/EC) Take 1 capsule by mouth in themorning and 1 capsule before bedtime. 100 capsule 0 promethazine (PHENERGAN) 25 mg tablet Take 1 tablet (25 mg total) by mouth every 6 (six) hours as needed for nausea or vomiting. 30 tablet 1 sacubitriL-valsartan (ENTRESTO) 24-26 mg tablet Take 1 tablet by mouth in the morning and 1 tablet before bedtime. 1 in AM and 2 in PM. SF 5000 PLUS 1.1 % cream apply A THIN RUBBON and BRUSH ONCE at bedtime DO NOT EAT, DRINK, ... (REFER TO PRESCRIPTION NOTES). spironolactone (ALDACTONE) 25 mg tablet Take 0.5 tablets (12.5 mg total) by mouth. vit A,C and N-pzdzod-sxdrdgzu (EYE HEALTH PLUS LUTEIN) 300 mcg-200 mg-27 mg-2 mg tablet Take 1 tablet by mouth in the morning. benzonatate (TESSALON PERLES) 100 mg capsule Take 1 capsule (100 mg total) by mouth 3 (three) timesa day as needed for cough. (Patient not taking: Reported on 08/27/2023) 30 capsule 2 famotidine (PEPCID) 20 mg tablet Take 1 tablet (20 mg total) by mouth in the morning and 1 tablet (20 mg total) before bedtime. 60 tablet 1 No current facility-administered medications for this visit. (All medications reviewed and updated by provider since last office visit or hospitalization) Allergies: Patient has no known allergies. Tobacco History: Social History Tobacco Use Smoking Status Former Types: Pipe Smokeless Tobacco Never Tobacco Comments 2 years smoked pipe (If patient a smoker, smoking cessation counseling offered) Social History: Social History Substance and Sexual Activity Alcohol Use Yes Review of Systems: Review of Systems Constitutional: Negative for fatigue and unexpected weight change. HENT: Positive for sore throat. Respiratory: Negative. Cardiovascular: Positive for chest pain (Likely associated with heartburn after eating). Gastrointestinal: Positive for abdominal distention (Gas and bloating), abdominal pain, nausea and vomiting. Neurological: Positive for weakness and numbness. Negative for dizziness and syncope. Physical Exam: BP 114/58 (BP Site: Left Arm, BP Postition: Sitting) Pulse 60 Temp 36.1 C (97 F) (Temporal) Ht 167.6 cm (5' 6 ) Wt 89.8 kg (198 lb) SpO2 97% BMI 31.96 kg/m Physical Exam Vitals reviewed. Land Manager present: here with . Constitutional: General: He is in acute distress (While vomiting a few times during appointment). Appearance: Normal appearance. HENT: Head: Normocephalic and atraumatic. Cardiovascular: Rate and Rhythm: Normal rate and regular rhythm. Heart sounds: Normal heart sounds. Pulmonary: Effort: Pulmonary effort is normal. Breath sounds: Normal breath sounds. Abdominal: General: Bowel sounds are normal. There is no distension. Palpations: Abdomen is soft. Tenderness: There is abdominal tenderness (Left upper quadrant). There is no guarding. Comments: Patient declines getting up on table for abdominal exam as he is very nauseated Musculoskeletal: Right lower leg: Edema (Trace) present. Left lower leg: Edema (Trace) present. Neurological: General: No focal deficit present. Mental Status: He is alert and oriented to person, place, and time. Gait: Gait abnormal (Ambulating with a wheeled walker). Psychiatric: Mood and Affect: Mood normal. Behavior: Behavior normal. Assessment and Plan: Shawna was seen today for sore throat. Diagnoses and all orders for this visit: Esophageal dysphagia - Fluoroscopy upper GI with esophagus; Future Gastroesophageal reflux disease, unspecified whether esophagitis present Bilious vomiting with nausea Other orders - famotidine (PEPCID) 20 mg tablet; Take 1 tablet (20 mg total) by mouth in the morning and 1 tablet (20 mg total) before bedtime. Follow-up: Symptoms of globus sensation, gas and sternal aching may relate to GERD so will start him on Pepcidas PPIs interact with his Plavix. He should follow anti- reflux precautions and we will also get upper GI study with fluoroscopy for the dysphagia. He may continue use Phenergan for nausea and he should stay well hydrated. If he is unable to stay well hydrated he should go to the ER. Treatment at follow-up depending on results. Patient would like upper GI performed a [facility]. One undiagnosed new problem with uncertain prognosis and prescription drug management, review of multiple consult notes and labs. CATHERINE EVERETT APRN-CNP 08/27/232024 documented in this encounterTri[facility] History of Present illness Narrative* Ranjan Quiles MD - 06/23/2023 10:30 AM EST Subjective Shawna Hernandes is a 78 y.o. male Chief Complaint Hypertension HPI Patient is in the office for titration of heart failure therapy. Since his last visit and the increase in the Entresto up to 49/51 mg in the evening and morning dose of 24/26 mg he has done fairly well. His pressure is marginal and he has occasional hypotension and because of this I will leave his present dose unchallenged for now. ROS Visit Vitals BP 98/60 (BP Location: Left arm, Patient Position: Sitting) Pulse 64 Ht 1.676 m (5' 6 ) Wt 93.4 kg (206 lb) BMI 33.25 kg/m BSA 2.09 m Objective Physical Exam Current Medications Current Outpatient Medications: amiodarone (Pacerone) 200 mg tablet, Take 1 tablet (200 mg) by mouth once daily., Disp: , Rfl: aspirin 81 mg EC tablet, Take 1 tablet (81 mg) by mouth once daily., Disp: , Rfl: atorvastatin (Lipitor) 80 mg tablet, Take 1 tablet (80 mg) by mouth once daily., Disp: , Rfl: bumetanide (Bumex) 1 mg tablet, Take 1 tablet (1 mg) by mouth once daily., Disp: , Rfl: carvedilol (Coreg) 25 mg tablet, Take 1 tablet (25 mg) by mouth 2 times a day., Disp: , Rfl: clopidogrel (Plavix) 75 mg tablet, Take 1 tablet (75 mg) by mouth once daily., Disp: , Rfl: fish oil concentrate (Townsend-3) 120-180 mg capsule, Take 1 capsule (1 g) by mouth 2 times a day., Disp: , Rfl: folic acid (Folvite) 400 mcg tablet, Take 1 tablet (400 mcg) by mouth once daily., Disp: , Rfl: Jardiance 10 mg, Take 1 tablet (10 mg) by mouth once daily in the morning. Take before meals., Disp: , Rfl: levothyroxine (Synthroid, Levoxyl) 50 mcg tablet, Take 1 tablet (50 mcg) by mouth once daily in themorning. Take before meals., Disp: , Rfl: magnesium oxide (Mag-Ox) 400 mg (241.3 mg magnesium) tablet, Take 1 tablet (400 mg) by mouth once daily. Take with food., Disp: , Rfl: mexiletine (Mexitil) 150 mg capsule, Take 1 capsule (150 mg) by mouth 3 times a day., Disp: , Rfl: nitroglycerin (Nitrostat) 0.4 mg SL tablet, Place 1 tablet (0.4 mg) under the tongue every 5 minutes if needed for chest pain., Disp: , Rfl: sacubitriL-valsartan (Entresto) 24-26 mg tablet, Take 1 tablet by mouth 2 times a day. One tablet in morning and 2 tablets in the evening., Disp: 180 tablet, Rfl: 3 spironolactone (Aldactone) 25 mg tablet, Take 1 tablet (25 mg) by mouth once daily., Disp: , Rfl: Assessment/Plan 1. Congestive heart failure, unspecified HF chronicity, unspecified heart failure type (CMS/HCC) Follow Up In Cardiology 2. Cardiomyopathy, ischemic Follow Up In Cardiology documented in [facility] Work Phone: 1(326) 812-820811-21-2023 Instructions* Patient Instructions* Angela Reynolds LPN - 06/23/2023 10:30 AM EST Fe follow up as scheduled Same medications documented in [facility]Fort [facility] Work Phone: [phone]) 155-168210-24-2023 History of Present illness Narrative* Ranjan Quiles MD - 05/26/2023 10:30 AM EDT Subjective Shawna Hernandes is a 78 y.o. male Chief Complaint blood pressure check with ortho's HPI Patient is in the office for titration of Entresto for heart failure. His pressure is acceptable and further titration of Entresto was implemented increasing the evening dose up to 49/51 mg and keeping the morning dose at 24/26 mg. He will come back in 4 weeks for further titration if possible. He was advised to report to me any symptoms suggestive of hypotension that could require further adjustments of his medications. ROS There were no vitals taken for this visit. Objective Physical Exam Current Medications Current Outpatient Medications: amiodarone (Pacerone) 200 mg tablet, Take 1 tablet (200 mg) by mouth once daily., Disp: , Rfl: aspirin 81 mg EC tablet, Take 1 tablet (81 mg) by mouth once daily., Disp: , Rfl: atorvastatin (Lipitor) 80 mg tablet, Take 1 tablet (80 mg) by mouth once daily., Disp: , Rfl: bumetanide (Bumex) 1 mg tablet, Take 1 tablet (1 mg) by mouth once daily., Disp: , Rfl: carvedilol (Coreg) 25 mg tablet, Take 1 tablet (25 mg) by mouth 2 times a day., Disp: , Rfl: clopidogrel (Plavix) 75 mg tablet, Take 1 tablet (75 mg) by mouth once daily., Disp: , Rfl: fish oil concentrate (Townsend-3) 120-180 mg capsule, Take 1 capsule (1 g) by mouth 2 times a day., Disp: , Rfl: folic acid (Folvite) 400 mcg tablet, Take 1 tablet (400 mcg) by mouth once daily., Disp: , Rfl: Jardiance 10 mg, Take 1 tablet (10 mg) by mouth once daily in the morning. Take before meals., Disp: , Rfl: levothyroxine (Synthroid, Levoxyl) 50 mcg tablet, Take 1 tablet (50 mcg) by mouth once daily in themorning. Take before meals., Disp: , Rfl: magnesium oxide (Mag-Ox) 400 mg (241.3 mg magnesium) tablet, Take 1 tablet (400 mg) by mouth once daily. Take with food., Disp: , Rfl: mexiletine (Mexitil) 150 mg capsule, Take 1 capsule (150 mg) by mouth 3 times a day., Disp: , Rfl: nitroglycerin (Nitrostat) 0.4 mg SL tablet, Place 1 tablet (0.4 mg) under the tongue every 5 minutes if needed for chest pain., Disp: , Rfl: sacubitriL-valsartan (Entresto) 24-26 mg tablet, Take 1 tablet by mouth 2 times a day., Disp: , Rfl: spironolactone (Aldactone) 25 mg tablet, Take 1 tablet (25 mg) by mouth once daily., Disp: , Rfl: Assessment/Plan No diagnosis found. documented in this [facility] Work Phone: [phone]) 103-869310-18-2023 Hospital Discharge instructions Patient Education 05/20/2023 11:21:10 Benign Prostatic Hyperplasia Benign Prostatic Hyperplasia Benign prostatic hyperplasia (BPH) is an enlarged prostate gland that is caused by the normal agingprocess. The prostate may get bigger as a man gets older. The condition is not caused by cancer. The prostate is a walnut-sized gland that is involved in the production of semen. It is located in front of the rectum and below the bladder. The bladder stores urine. The urethra carries stored urine ou t of the body. An enlarged prostate can press on the urethra. This can make it harder to pass urine. The buildup of urine in the bladder can cause infection. Back pressure and infection may progress to bladder damage and kidney (renal) failure. What are the causes? This condition is part of the normal aging process. However, not all men develop problems from thiscondition. If the prostate enlarges away from the urethra, urine flow will not be blocked. If it enlarges toward the urethra and compresses it, there will be problems passing urine. What increases the risk? This condition is more likely to develop in men older than 50 years. What are the signs or symptoms? Symptoms of this condition include: Getting up often during the night to urinate. Needing to urinate frequently during the day. Difficulty starting urine flow. Decrease in size and strength of your urine stream. Leaking (dribbling) after urinating. Inability to pass urine. This needs immediate treatment. Inability to completely empty your bladder. Pain when you pass urine. This is more common if there is also an infection. Urinary tract infection (UTI). How is this diagnosed? This condition is diagnosed based on your medical history, a physical exam, and your symptoms. Tests will also be done, such as: A post-void bladder scan. This measures any amount of urine that may remain in your bladder after you finish urinating. A digital rectal exam. In a rectal exam, your health care provider checks your prostate by putting a lubricated, gloved finger into your rectum to feel the back of your prostate gland. This exam detects the size of your gland and any abnormal lumps or growths. An exam of your urine (urinalysis). A prostate specific antigen (PSA) screening. This is a blood test used to screen for prostate cancer. An ultrasound. This test uses sound waves to electronically produce a picture of your prostate gland. Your health care provider may refer you to a specialist in kidney and prostate diseases (urologist). How is this treated? Once symptoms begin, your health care provider will monitor your condition (active surveillance or watchful waiting). Treatment for this condition will depend on the severity of your condition. Treatment may include: Observation and yearly exams. This may be the only treatment needed if your condition and symptoms are mild. Medicines to relieve your symptoms, including: ?Medicines to shrink the prostate. ?Medicines to relax the muscle of the prostate. Surgery in severe cases. Surgery may include: ?Prostatectomy. In this procedure, the prostate tissue is removed completely through an open incision or with a laparoscope or robotics. ?Transurethral resection of the prostate (TURP). In this procedure, a tool is inserted through the opening at the tip of the penis (urethra). It is used to cut away tissue of the inner core of the prostate. The pieces are removed through the same opening of the penis. This removes the blockage. ?Transurethral incision (TUIP). In this procedure, small cuts are made in the prostate. This lessens the prostate's pressure on the urethra. ?Transurethral microwave thermotherapy (TUMT). This procedure uses microwaves to create heat. The heat destroys and removes a small amount of prostate tissue. ?Transurethral needle ablation (TUNA). This procedure uses radio frequencies to destroy and remove a small amount of prostate tissue. ?Interstitial laser coagulation (ILC). This procedure uses a laser to destroy and remove a small amount of prostate tissue. ?Transurethral electrovaporization (TUVP). This procedure uses electrodes to destroy and remove a small amount of prostate tissue. ?Prostatic urethral lift. This procedure inserts an implant to push the lobes of the prostate away from the urethra. Follow these instructions at home: Take umqy-lcg-kumxted and prescription medicines only as told by your health care provider. Monitor your symptoms for any changes. Contact your health care provider with any changes. Avoid drinking large amounts of liquid before going to bed or out in public. Avoid or reduce how much caffeine or alcohol you drink. Give yourself time when you urinate. Keep all follow-up visits. This is important. Contact a health care provider if: You have unexplained back pain. Your symptoms do not get better with treatment. You develop side effects from the medicine you are taking. Your urine becomes very dark or has a bad smell. Your lower abdomen becomes distended and you have trouble passing urine. Get help right away if: You have a fever or chills. You suddenly cannot urinate. You feel light-headed or very dizzy, or you faint. There are large amounts of blood or clots in your urine. Your urinary problems become hard to manage. You develop moderate to severe low back or flank pain. The flank is the side of your body between the ribs and the hip. These symptoms may be an emergency. Get help right away. Call 911. Do not wait to see if the symptoms will go away. Do not drive yourself to the hospital. Summary Benign prostatic hyperplasia (BPH) is an enlarged prostate that is caused by the normal aging process. It is not caused by cancer. An enlarged prostate can press on the urethra. This can make it hard to pass urine. This condition is more likely to develop in men older than 50 years. Get help right away if you suddenly cannot urinate. This information is not intended to replace advice given to you by your health care provider. Make sure you discuss any questions you have with your health care provider. Document Revised: 02/05/2022 Document Reviewed: 02/05/2022 Elsevier Patient Education 2022 [employer]. Follow Up Care 04/03/2023 15:19:06 With:Vlad MINER, Jyoti Jaramillo, URL, URO Address: When:Within 1 Year(s) Comments:w/PSA F&T [facility] Nancy 08-11-2023 Progress note Author W Gianni [facility] March 13, 2023 11:51am Note Date/Time March 13, 2023 11 :51am [facility] [address] [place] [address] Cardiology Progress Note Signed Patient: Shawna Hernandes MR#: [id number] : 1945 Acct:[id number] Age/Sex: 78 / M Adm Date: 3 Loc: Room: [address] [place] [address] Type: ADM IN Attending Dr: Bro Henry MD Copies to: ~ Date of Service: 03/13/2023 Subjective Principal diagnosis: Sustained monomorphic ventricular tachycardia Interval history: Stable status post PCI unprotected left main yesterday going into the large circumflex x 2 BOSSMAN with IVUS guidance without complications. Right radial access site is stable with excellent pulse and no hematoma; patient is up ambulating with physical therapy in the room. He remains in a regular biventricular paced rhythm without any recurrence of ventricular tachycardia He can be discharged today on current therapies including clopidogrel and aspirin probably lifelong to follow-up with Drs. Dign and Sushila within the next 2 to 4 weeks Exam Physical Exam Vital Signs: Temp Pulse Resp BP Pulse Ox O2 Del Method O2 Flow Rate 97.9 F 66 20 109/60 94 L Room Air 4 03/12/23 14:30 03/13/23 08:00 03/13/23 08:00 03/13/23 08:00 03/13/23 08:00 03/13/23 08:00 03/09/23 13:19 Objective Labs 03/13/23 04:22 03/13/23 04:22 Labs: Laboratory Results - last 24 hr 03/13/23 03/13/23 03/13/23 04:22 04:22 04:22 Corrected WBC 9.0 Uncorrected WBC Count 9.0 RBC 3.67 L Hgb 12.1 L Hct 35.7 L MCV 97.2 MCH 32.9 MCHC 33.9 RDW 14.1 Plt Count 137 L MPV 9.9 Neut % (Auto) 75.3 Lymph % (Auto) 8.9 Rush % (Auto) 11.8 Eos % (Auto) 3.5 Baso % (Auto) 0.5 Nucleat RBC Rel Count 0.0 Neut # (Auto) 6.8 Lymph # (Auto) 0.8 L Rush # (Auto) 1.1 H Eos # (Auto) 0.3 Baso # (Auto) 0.0 PHA Creatinine Clear 47.85 Sodium 133 L Potassium 4.1 Chloride 111 H Carbon Dioxide 22.8 Anion Gap 3.3 L BUN 23 Creatinine 1.40 H Est GFR (CKD-EPI) 51.766 Glucose 89 Calcium 8.0 L Troponin I High Sens 470.0 H* A&P - Cardiology (1) Ventricular tachycardia: Assessment/Problem Details: Sustained monomorphic ventricular tachycardia. He appears to have responded to lidocaine with no recurrence. This would suggest there may be an ischemic substrate. Mexiletine may be worth consideration. In regards to the arrhythmia, though, we will intensify and/or increase the aggressiveness of the antitachycardia pacing algorithm with a change from burst pacing to scanning. This may, in the future, be effective at restoring and maintaining sinus rhythm. Code(s): I47.20 - Ventricular tachycardia, unspecified Status: Acute (2) Coronary artery disease: Assessment/Problem Details: Complex in nature. Patient believes he predominantly has scar not in need of revascularization. Will defer to Dr. Archer in this regard. Code(s): I25.10 - Atherosclerotic heart disease of [place] coronary artery without angina pectoris Status: Chronic Plan Reprogramming defibrillator today. Discontinue intravenous lidocaine. Discontinue armboard. Initiate physical therapy. Will defer to interventional cardiology in regards to additional therapeutic interventions. Documented By: Naga Archer DO 03/13/23 115 Signed By: <Electronically signed by Naga Archer DO> 03/13/23 1151 [facility] Work Phone: [phone]) 587-886608-11-2023 Progress note Author Alexis Child [facility] March 13, 2023 10:34am Note Date/Time March 13, 2023 10 :34am [facility] [address] [place] [id number] Progress Note Signed Patient: Shawna Hernandes MR#: [id number] : 1945 Acct:[id number] Age/Sex: 78 / M Adm Date: 3 Loc: Room: [address] [place] [address] Type: ADM IN Attending Dr: Bro Henry MD Copies to: ~ Date of Service: 03/13/2023 Progress Narrative Note PROGRESS NOTE Progress Note: Patient is status post drug-eluting stent x 2 to the distal left main and proximal left circumflex. He is sitting in chair on room air with no respiratory complaints no chest pain. He is overall stable. We will follow peripherally as needed. Documented By: Alexis Child MD 3 1032 Signed By: <Electronically signed by MD Alexis Child> 03/13/23 1034 [facility] Work Phone: [phone]) 150-145008-10-2023 Procedure [facility]08-10-2023 Procedure [facility]08-10-2023 Progress note Author Bro Henry [facility] March 12, 2023 11:59am Note Date/Time March 12, 2023 11 :53am [facility] [address] [place] [id number] Hospitalist Progress Note Signed Patient: Shawna Hernandes MR#: [id number] : 1945 Acct:[id number] Age/Sex: 78 / M Adm Date: 3 Loc: 4C Room: [address] [place] [address] Type: ADM IN Attending Dr: Bro Henry MD Copies to: ~ Date of Service: 03/12/2023 Subjective Subjective Narrative: No acute events noted overnight. Patient feels well, denies any chest pain or shortness of breath symptoms. He is eating and drinking well. Eagerly anticipating cardiac cath and PCI today. Exam Physical Exam Vital Signs: Temp Pulse Resp BP Pulse Ox O2 Del Method O2 Flow Rate 97.9 F 60 12 119/65 94 L Room Air 4 03/12/23 08:00 03/12/23 08:00 03/12/23 08:00 03/12/23 08:00 03/12/23 08:00 03/12/23 08:00 03/09/23 13:19 Narrative: Constitutional: Elderly WM, standing at bedside, pleasant, calm HEENT: Moist mucous membranes, neck supple, no JVD Cardiovascular: RRR, no M/R/G, normal S1 and S2 Respiratory: Clear to auscultation bilaterally, no wheezes, rales or rhonchi GI: Soft, obese abdomen, nontender to palpation, normoactive bowel sounds, no rebound tenderness or guarding : Deferred Extremities: No clubbing, cyanosis or edema Neuro: AAOx3, no focal deficits Skin: No rashes or lesions noted upon anterior inspection Psych: Calm, cooperative and conversant Objective Lab Results 03/12/23 04:57 03/12/23 04:57 Meds Allergies and Active Meds Allergies No Known Allergies Allergy (Verified 03/09/23 10:53) Active Meds: Active Medications Generic Name Dose Route Start Last Admin Trade Name Suryaq PRN Reason Stop Dose Admin Aspirin 81 mg 03/12/23 09:00 03/12/23 09:00 Aspirin 81 Mg Tablet. PO 03/11/24 08:59 81 mg QAM MEGHA Administration Atorvastatin Calcium 80 mg 03/10/23 09:00 03/12/23 09:00 Atorvastatin 80 Mg Tablet PO 03/09/24 08:59 80 mg QAM MEGHA Administration Carvedilol 6.25 mg 03/11/23 21:00 03/12/23 09:00 Carvedilol 6.25 Mg Tablet PO 03/10/24 20:59 6.25 mg BID MEGHA Administration Clopidogrel Bisulfate 75 mg 03/10/23 09:00 03/12/23 09:00 Clopidogrel Bisulfate 75 Mg Tablet PO 03/09/24 08:59 75 mg QAM MEGHA Administration Empagliflozin 10 mg 03/12/23 09:00 03/12/23 09:01 Empagliflozin 10 Mg Tablet PO 03/11/24 08:59 10 mg DAILY MEGHA Administration Folic Acid 1 mg 03/12/23 09:00 03/12/23 09:00 Folic Acid 1 Mg Tablet PO 03/11/24 08:59 1 mg QAM MEGHA Administration Heparin Sodium (Porcine) 5,000 unit 03/10/23 22:00 03/12/23 06:46 Heparin 5,000 Unit/Ml Vial SUBCUT 03/09/24 21:59 5,000 unit Q8HR MEGHA Administration Dextrose/Sodium Chloride 1,000 mls @ 100 mls/hr 03/12/23 14:00 5 % Dextrose-0.45 % Nacl IV 03/11/24 13:59 .Q10H MEGHA Levothyroxine Sodium 50 mcg 03/10/23 06:30 03/12/23 06:46 Levothyroxine 50 Mcg Tablet PO 03/09/24 06:29 50 mcg DAILY@0630 MEGHA Administration Miscellaneous Information 1 each 03/12/23 09:23 Consult To Pharmacy MISCELLANE 03/11/24 09:22 .PHACONSULT PRN ZZ.Pharmacy Consult Protocol Nitroglycerin 0.4 mg 03/11/23 12:12 Nitroglycerin 0.4 Mg Tab.Subl SUBLINGUAL 03/10/24 12:11 DIRECTED PRN Chest Pain Potassium Chloride 40 meq 03/12/23 09:23 Potassium Chloride Er 20 Meq Tab.Er.Prt PO STAT PRN Hypokalemia Sodium Chloride 0 ml 03/09/23 10:53 03/09/23 12:25 Sodium Chloride 0.9 % 10 Ml Syringe IV-PUSH 03/08/24 10:52 10 ml PRN PRN Administration Flush Sodium Chloride 0 ml 03/10/23 09:12 Sodium Chloride 0.9 % 10 Ml Syringe IV-PUSH 03/09/24 09:11 PRN PRN Flush Sodium Chloride 0 ml 03/12/23 09:23 Sodium Chloride 0.9 % 10 Ml Syringe IV-PUSH 03/11/24 09:22 PRN PRN Flush Vitamin D 25 mcg 03/12/23 09:00 03/12/23 09:01 Cholecalciferol 25 Mcg (1,000 Units) Tablet PO 03/11/24 08:59 25 mcg QAM MEGHA Administration A&P - Hospitalist Assessment/Plan (1) Wide-complex tachycardia: (2) Hypotension: (3) Elevated troponin: (4) Chronic kidney disease, stage 3: (5) Chronic HFrEF (heart failure with reduced ejection fraction): (6) Coronary artery disease: Plan 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 tach Chronic heart failure reduced ejection fraction Coronary artery disease History of [place] Stable. Patient is status post biventricular AICD 6 weeks ago. ICD/pacemaker settings adjusted during this hospitalization. Lidocaine drip remains discontinued. No major arrhythmia overnight. Dr. Archer discussed case with EP cardiology, and plan is for PCI to occur today. -Cardiology for PCI today -Continue ASA, Plavix, statin, beta-toi -Entresto, amiodarone, spironolactone still on hold; defer to cardiology for reinitiation Other chronic medical conditions noted below, continue home regimens unless otherwise specified: TIA Peripheral neuropathy Macular degeneration Hypertension Hyperlipidemia CODE STATUS: Full code Documented By: Bro Henry MD 3 1143 Signed By: <Electronically signed by Bro Henry MD> 03/12/23 1159 [facility] Work Phone: [phone]) [phone] Progress note Author W Gianni [facility] March 11, 2023 7:53pm Note Date/Time March 11, 2023 7:5 3pm [facility] [address] [place] [address] Cardiology Progress Note Signed Patient: Shawna Hernandes MR#: [id number] : 1945 Acct:[id number] Age/Sex: 78 / M Adm Date: 3 Loc: Room: [address] [place] [address] Type: ADM IN Attending Dr: Hawa Sharma MD Copies to: ~ Date of Service: 03/11/2023 Subjective Principal diagnosis: Sustained monomorphic ventricular tachycardia Interval history: Discussed case with Jah Eddy and Toña yesterday and today, and discussed case with patient and extensively yesterday and again this evening. Risks, benefits and alternatives and informed decision making process for 30 minutes performed in total with cardiac team and patient and . It appears the LAD is a chronic infarct vessel with extensive anterolateral and anteroseptal scar from 1994 with no previous intervention other than heart catheterization following thrombolytic therapy at that time. The circumflex remains potentially a viable vessel as does the RCA. The circumflex is a large vessel again jeopardized by the left main disease; essentially single-vessel disease (as LAD is a nonviable vessel). Because of this and the thought that this may be ischemic provoking thus provoking arrhythmia; revascularization of the left main in order to protect the circumflex appears to be a reasonable option and agreed upon by all. Patient and acknowledged the potential high risk nature of unprotected leftmain intervention (again LAD is nonviable). Surgical intervention is not an option as agreed upon by the cardiology team. Patient and do not want transfer to a tertiary care facility. Therefore we will proceed with PCI of the left main either afternoon depending on the scheduling Total of 30 minutes of nonprocedural critical care time were devoted to consultation with the above physicians, patient and Patient is currently off lidocaine, remaining in a biventricular paced sinus rhythm, without angina or heart failure at this time Exam Physical Exam Vital Signs: Temp Pulse Resp BP Pulse Ox O2 Del Method O2 Flow Rate 98.1 F 60 21 126/69 96 Room Air 4 03/11/23 16:00 03/11/23 16:00 03/11/23 16:00 03/11/23 16:00 03/11/23 16:00 03/11/23 16:00 03/09/23 13:19 Objective Labs 03/11/23 04:12 03/11/23 06:02 Labs: Laboratory Results - last 24 hr 03/11/23 03/11/23 03/11/23 04:12 04:12 06:02 Corrected WBC 7.4 Uncorrected WBC Count 7.4 RBC 3.80 L Hgb 12.5 L Hct 36.8 L MCV 96.8 MCH 32.8 MCHC 33.9 RDW 14.1 Plt Count 153 MPV 9.7 Neut % (Auto) 65.0 Lymph % (Auto) 17.7 Rush % (Auto) 13.2 Eos % (Auto) 3.5 Baso % (Auto) 0.6 Nucleat RBC Rel Count 0.1 Neut # (Auto) 4.8 Lymph # (Auto) 1.3 Rush # (Auto) 1.0 H Eos # (Auto) 0.3 Baso # (Auto) 0.0 PHA Creatinine Clear 39.88 Sodium 135 L Potassium 4.2 Chloride 105 Carbon Dioxide 22.6 Anion Gap N/A BUN 29 H Creatinine 1.70 H Est GFR (CKD-EPI) 41.007 Glucose 85 Calcium 7.9 L A&P - Cardiology (1) Ventricular tachycardia: Assessment/Problem Details: Sustained monomorphic ventricular tachycardia. He appears to have responded to lidocaine with no recurrence. This would suggest there may be an ischemic substrate. Mexiletine may be worth consideration. In regards to the arrhythmia, though, we will intensify and/or increase the aggressiveness of the antitachycardia pacing algorithm with a change from burst pacing to scanning. This may, in the future, be effective at restoring and maintaining sinus rhythm. Code(s): I47.20 - Ventricular tachycardia, unspecified Status: Acute (2) Coronary artery disease: Assessment/Problem Details: Complex in nature. Patient believes he predominantly has scar not in need of revascularization. Will defer to Dr. Archer in this regard. Code(s): I25.10 - Atherosclerotic heart disease of [place] coronary artery without angina pectoris Status: Chronic Plan Reprogramming defibrillator today. Discontinue intravenous lidocaine. Discontinue armboard. Initiate physical therapy. Will defer to interventional cardiology in regards to additional therapeutic interventions. Documented By: Naga Archer DO 03/11/231946 Signed By: <Electronically signed by Naga Archer DO> 03/11/231952 [facility] Work Phone: [phone] Progress note Author Hawa Sharma [facility] March 11, 2023 11:44am Note Date/Time March 11, 2023 11: 44am [facility] [address] [place] [address] Hospitalist Progress Note Signed Patient: Shawna Hernandes MR#: [id number] : 1945 Acct:[id number] Age/Sex: 78 / M Adm Date: 3 Loc: Room: [address] [place] [address] Type: ADM IN Attending Dr: Hawa Sharma MD Copies to: ~ Date of Service: 03/11/2023 Subjective Subjective Narrative: Patient examined at bedside with no overnight event. Currently denies any complaint. As per cardiology note plan to discuss case with Dr. Ding and Dr. Conti and to make final decision. Dr. Max will be adjusting his pacemakerfor aggressive antitachycardia pacing. Exam Physical Exam Vital Signs: Temp Pulse Resp BP Pulse Ox O2 Del Method O2 Flow Rate 97.6 F 60 18 124/59 L 98 Room Air 4 03/11/23 08:00 03/11/23 11:00 03/11/23 11:00 03/11/23 11:00 03/11/23 11:00 03/11/23 11:00 03/09/23 13:19 Const Orientation: alert, awake and oriented x3 Resp Effort & Inspection: normal respiratory effort and able to speak in complete sentences Auscultation: no rales, no rhonchi and no wheezes Cardio Rate: regular rate Rhythm: regular rhythm Heart Sounds: S1 normal and S2 normal GI Palpation: soft, not firm, no guarding and nontender Neuro General: patient alert, patient awake, patient oriented x3, moves all extremities and no focal motor deficits Cranial Nerves: CN's II-XII intact bilaterally Cognition: normal cognition Speech: speech normal Motor: muscle tone normal throughout and strength 5/5 throughout Sensory Exam: no sensory deficits noted Extrem General: no clubbing, cyanosis or edema and no calf tenderness Objective Lab Results 03/11/23 04:12 03/11/23 06:02 Meds Allergies and Active Meds Allergies No Known Allergies Allergy (Verified 03/09/23 10:53) Active Meds: Active Medications Generic Name Dose Route Start Last Admin Trade Name Suryaq PRN Reason Stop Dose Admin Aspirin 81 mg 03/12/23 09:00 Aspirin 81 Mg Tablet. PO 03/11/24 08:59 QAM MEGHA Atorvastatin Calcium 80 mg 03/10/23 09:00 03/11/23 08:13 Atorvastatin 80 Mg Tablet PO 03/09/24 08:59 [facility] Administration Clopidogrel Bisulfate 75 mg 03/10/23 09:00 03/11/23 08:13 Clopidogrel Bisulfate 75 Mg Tablet PO 03/09/24 08:59 75 mg QAM MEGHA Administration Folic Acid 1 mg 03/12/23 09:00 Folic Acid 1 Mg Tablet PO 03/11/24 08:59 QAM [facility] Heparin Sodium (Porcine) 5,000 unit 03/10/23 22:00 03/11/23 05:39 Heparin 5,000 Unit/Ml Vial SUBCUT 03/09/24 21:59 5,000 unit Q8HR MEGHA Administration Levothyroxine Sodium 50 mcg 03/10/23 06:30 03/11/23 05:39 Levothyroxine 50 Mcg Tablet PO 03/09/24 06:29 50 mcg DAILY@0630 MEGHA Administration Sodium Chloride 0 ml 03/09/23 10:53 03/09/23 12:25 Sodium Chloride 0.9 % 10 Ml Syringe IV-PUSH 03/08/24 10:52 10 ml PRN PRN Administration Flush Sodium Chloride 0 ml 03/10/23 09:12 Sodium Chloride 0.9 % 10 Ml Syringe IV-PUSH 03/09/24 09:11 PRN PRN Flush Vitamin D 25 mcg 03/12/23 09:00 Cholecalciferol 25 Mcg (1,000 Units) Tablet PO 03/11/24 08:59 QAM [facility] A&P - Hospitalist Assessment/Plan (1) Wide-complex tachycardia: (2) Hypotension: (3) Elevated troponin: (4) Chronic kidney disease, stage 3: (5) Chronic HFrEF (heart failure with reduced ejection fraction): (6) Coronary artery disease: Plan Patient was placed on lidocaine drip which has been discontinued and cleared by cardiology to be transferred to stepdown unit. Dr. Archer will be discussing with his electrophysiology Dr. Ding and Dr. Conti. Patient denies having chest pain shortness of breath. His blood pressure has improved. Continue aspirin, Plavix, statin resume low-dose beta-toi. Entresto, amiodarone and spironolactone on hold and will defer to cardiology regarding continuation of this medication depending upon his renal function and blood pressure. 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 Conti by Dr. Archer. Documented By: Hawa Sharma MD 03/11/23 1140 Signed By: <Electronically signed by Hawa Sharma MD> 03/11/23 1144 [facility] Work Phone: [phone]) [phone] Progress note Author Rojelio Max [facility] March 11, 2023 10:19am Note Date/Time March 11, 2023 10: 19am [facility] [address] [place] [address] Cardiology Progress Note Signed Patient: Shawna Hernandes MR#: [id number] : 1945 Acct:[id number] Age/Sex: 78 / M Adm Date: 3 Loc: Room: [address] [place] [address] Type: ADM IN Attending Dr: Hawa Sharma MD Copies to: ~ Date of Service: 03/11/2023 Subjective Principal diagnosis: Sustained monomorphic ventricular tachycardia Interval history: Patient underwent angiographic evaluation yesterday. Dr. Archer plans to discuss the anatomic findings with Dr. Andino (the primary archives technician) as well as Dr. Ding (his carbon sequestration plant engineer). The patient did, though, after admission have another episode of slow monomorphic ventricular tachycardia rate 150 bpm. Antitachycardia pacing was insufficient. Because of this we will modify the ventricular tachycardia therapy zone to include scanning of the ventricular arrhythmia which is more aggressive and may be effective at restoring and maintaining rhythm without defibrillator shock. In regards to his anatomy the patient understands he has severe disease and an ejection fraction of 15%. He describes what sounds like a viability study performed after his previous angiogram and consequently he believes that intervention and/or revascularization to be of little benefit. I will defer to Dr. Archer and others in this regard. Exam Physical Exam Vital Signs: Temp Pulse Resp BP Pulse Ox O2 Del Method O2 Flow Rate 97.6 F 60 16 115/59 L 98 Room Air 4 03/11/23 08:00 03/11/23 08:00 03/11/23 08:00 03/11/23 08:00 03/11/23 08:00 03/11/23 08:00 03/09/23 13:19 HEENT Head: normal to inspection Ears: hearing grossly normal bilaterally Nose: external nose normal and nares normal Face and sinus: normal facial exam Mouth: oral mucosae normal and tongue normal Eyes Conjunctivae: conjunctivae normal Sclera: sclerae normal Neck Neck: normal visual inspection Carotids: normal carotid upstroke Lymphatic: no lymphadenopathy noted Chest Chest palpation & inspection: normal inspection of the chest Resp Effort & Inspection: normal respiratory effort Auscultation: clear to auscultation bilaterally Cardio Rate: regular rate Rhythm: regular rhythm Heart Sounds: S1 normal and S2 normal GI Inspection: normal to inspection Palpation: soft Skin General: no rashes or lesions noted Neuro General: patient alert, patient awake and patient oriented x3 Cognition: normal cognition Motor: muscle tone normal throughout Sensory Exam: no sensory deficits noted Objective Labs 03/11/23 04:12 03/11/23 06:02 Labs: Laboratory Results - last 24 hr 03/11/23 03/11/23 03/11/23 04:12 04:12 06:02 Corrected WBC 7.4 Uncorrected WBC Count 7.4 RBC 3.80 L Hgb 12.5 L Hct 36.8 L MCV 96.8 MCH 32.8 MCHC 33.9 RDW 14.1 Plt Count 153 MPV 9.7 Neut % (Auto) 65.0 Lymph % (Auto) 17.7 Rush % (Auto) 13.2 Eos % (Auto) 3.5 Baso % (Auto) 0.6 Nucleat RBC Rel Count 0.1 Neut # (Auto) 4.8 Lymph # (Auto) 1.3 Rush # (Auto) 1.0 H Eos # (Auto) 0.3 Baso # (Auto) 0.0 PHA Creatinine Clear 39.88 Sodium 135 L Potassium 4.2 Chloride 105 Carbon Dioxide 22.6 Anion Gap N/A BUN 29 H Creatinine 1.70 H Est GFR (CKD-EPI) 41.007 Glucose 85 Calcium 7.9 L A&P - Cardiology (1) Ventricular tachycardia: Assessment/Problem Details: Sustained monomorphic ventricular tachycardia. He appears to have responded to lidocaine with no recurrence. This would suggest there may be an ischemic substrate. Mexiletine may be worth consideration. In regards to the arrhythmia, though, we will intensify and/or increase the aggressiveness of the antitachycardia pacing algorithm with a change from burst pacing to scanning. This may, in the future, be effective at restoring and maintaining sinus rhythm. Code(s): I47.20 - Ventricular tachycardia, unspecified Status: Acute (2) Coronary artery disease: Assessment/Problem Details: Complex in nature. Patient believes he predominantly has scar not in need of revascularization. Will defer to Dr. Archer in this regard. Code(s): I25.10 - Atherosclerotic heart disease of [place] coronary artery without angina pectoris Status: Chronic Plan Reprogramming defibrillator today. Discontinue intravenous lidocaine. Discontinue armboard. Initiate physical therapy. Will defer to interventional cardiology in regards to additional therapeutic interventions. Documented By: Rojelio Max MD 1016 Signed By: <Electronically signed by MD Rojelio Max> 03/11/23 1019 [facility] Work Phone: [phone]) 332-104408-09-2023 Progress note Author Katherine Lobato [facility] March 11, 2023 10:11am Note Date/Time March 11, 2023 10: 12am [facility] [address] [place] [id number] Progress Note Signed Patient: Shawna Hernandes MR#: [id number] : 1945 Acct:[id number] Age/Sex: 78 / M Adm Date: 3 Loc: Room: [address] [place] [address] Type: ADM IN Attending Dr: Hawa Sharma MD Copies to: ~ Date of Service: 03/11/2023 Progress Narrative Note PROGRESS NOTE Progress Note: Patient was discussed during critical care rounds, cardiac cath findings were reviewed, severe ischemic cardiomyopathy with EF of 10%, left main and LAD lesions noted, recommendations per interventional cardiology were reviewed as well. Patient is clinically stable without recurrent arrhythmias over the last 24 hours, remaining on lidocaine drip Documented By: Katherine Lobato MD 03/11/231010 Signed By: <Electronically signed by Katherine Lobato MD> 03/11/23 1011 [facility] Work Phone: [phone]) [phone] Progress note Author Hawa Sharma [facility] March 10, 2023 5:27pm Note Date/Time March 10, 2023 5:2 7pm [facility] [address] [place] [id number] Hospitalist Progress Note Signed Patient: Shawna Hernandes MR#: [id number] : 1945 Acct:[id number] Age/Sex: 78 / M Adm Date: 3 Loc: Room: [address] [place] [address] Type: ADM IN Attending Dr: Hawa Sharma MD Copies to: ~ Date of Service: 03/10/2023 Subjective Subjective Narrative: Patient examined at bedside with no overnight event and currently denies any complaint. He underwent cardiac catheterization which showed severe left main and proximal LAD. As per cardiology they will be discussing with electrophysiology to consider viability study with MRI versus proceeding with high risk PCI. Exam Physical Exam Vital Signs: Temp Pulse Resp BP Pulse Ox O2 Del Method O2 Flow Rate 97.5 F L 60 22 114/62 97 Room Air 4 03/10/23 12:00 03/10/23 14:00 03/10/23 14:00 03/10/23 14:00 03/10/23 12:00 03/10/23 14:00 03/09/23 13:19 Const Orientation: alert, awake and oriented x3 Resp Effort & Inspection: normal respiratory effort and able to speak in complete sentences Auscultation: no rales, no rhonchi and no wheezes Cardio Rate: regular rate Rhythm: regular rhythm Heart Sounds: S1 normal and S2 normal GI Palpation: soft, not firm, no guarding and nontender Neuro General: patient alert, patient awake, patient oriented x3, moves all extremities and no focal motor deficits Cranial Nerves: CN's II-XII intact bilaterally Cognition: normal cognition Speech: speech normal Motor: muscle tone normal throughout and strength 5/5 throughout Sensory Exam: no sensory deficits noted Extrem General: no clubbing, cyanosis or edema and no calf tenderness Objective Lab Results 03/10/23 05:18 03/10/23 05:18 Meds Allergies and Active Meds Allergies No Known Allergies Allergy (Verified 03/09/23 10:53) Active Meds: Active Medications Generic Name Dose Route Start Last Admin Trade Name Freq PRN Reason Stop Dose Admin Atorvastatin Calcium 80 mg 03/10/23 09:00 03/10/23 10:29 Atorvastatin 80 Mg Tablet PO 03/09/24 08:59 80 mg QAM MEGHA Administration Clopidogrel Bisulfate 75 mg 03/10/23 09:00 03/10/23 10:29 Clopidogrel Bisulfate 75 Mg Tablet PO 03/09/24 08:59 75 mg QAM MEGHA Administration Lidocaine HCl/Dextrose 2,000 mg in 500 mls @ 15 mls/hr 03/09/23 19:45 03/09/23 19:54 Xylocaine In Dextrose IV 03/08/24 19:44 1 mg/min .Q24H MEGHA 15 mls/hr Administration Protocol 1 MG/MIN Dextrose/Sodium Chloride 1,000 mls @ 60 mls/hr 03/10/23 16:15 5 % Dextrose-0.45 % Nacl IV 03/10/23 19:14 .[id number] MEGHA Levothyroxine Sodium 50 mcg 03/10/23 06:30 03/10/23 06:38 Levothyroxine 50 Mcg Tablet PO 03/09/24 06:29 50 mcg DAILY@0630 [facility] Administration Miscellaneous Information 1 each 03/10/23 16:07 Consult To Pharmacy MISCELLANE 03/09/24 16:06 .PHACONSULT PRN ZZ.Pharmacy Consult Protocol Potassium Chloride 40 meq 03/10/23 09:12 Potassium Chloride Er 20 Meq Tab.Er.Prt PO STAT PRN Hypokalemia Sodium Chloride 0 ml 03/09/23 10:53 03/09/23 12:25 Sodium Chloride 0.9 % 10 Ml Syringe IV-PUSH 03/08/24 10:52 10 ml PRN PRN Administration Flush Sodium Chloride 0 ml 03/10/23 09:12 Sodium Chloride 0.9 % 10 Ml Syringe IV-PUSH 03/09/24 09:11 PRN PRN Flush A&P - Hospitalist Assessment/Plan (1) Wide-complex tachycardia: (2) Hypotension: (3) Elevated troponin: (4) Chronic kidney disease, stage 3: (5) Chronic HFrEF (heart failure with reduced ejection fraction): (6) Coronary artery disease: Plan Patient admitted artery catheterization which showed severe left main and proximal LAD disease. As per cardiology note they will be discussing with his carbon sequestration plant engineer regarding viability study versus high risk PCI. Paced rhythm on telemetry. Continue Plavix, statin levothyroxine. Heparin for DVT prophylaxis. Continue to monitor in the ICU given his presentation of malignantarrhythmia with severe coronary artery disease and ischemic cardiomyopathy. Documented By: Hawa Sharma MD 03/10/231721 Signed By: <Electronically signed by Hawa Sharma MD> 03/10/231726 [facility] Work Phone: [phone]) 880-836108-08-2023 [facility] Progress note Author Katherine Lobato [facility] March 10, 2023 12:15pm Note Date/Time March 10, 2023 12: 15pm [facility] [address] [place] [address] Progress Note Signed Patient: Shawna Hernandes MR#: [id number] : 1945 Acct:[id number] Age/Sex: 78 / M Adm Date: 3 Loc: Room: [address] [place] [address] Type: ADM IN Attending Dr: Hawa Sharma MD Copies to: ~ Date of Service: 03/10/2023 Progress Narrative Note PROGRESS NOTE Progress Note: Patient was discussed during critical care rounds, admitted for unstable ventricular arrhythmias patient has known history of ischemic cardiomyopathy andis status post AICD placement 20 years ago, settings were adjusted and his AICD was interrogated, and was observed overnight when he developed recurrent V. tach, plan is for invasive cardiac evaluation per cardiology. Patient otherwiseis doing well now hemodynamically stable on room air continue observation for now Documented By: Katherine Lobato MD 03/10/231213 Signed By: <Electronically signed by Katherine Lobato MD> 03/10/23 [facility] Work Phone: [phone]) 538-847208-07-2023 Consult note Author Rojelio Max [facility] March 09, 2023 5:35pm Note Date/Time March 09, 2023 5:3 5pm [facility] [address] [place] [address] Cardiology Consult Note Signed Patient: Shawna Hernandes MR#: [id number] : 1945 Acct:[id number] Age/Sex: 78 / M Adm Date: 3 Loc: Room: [address] [place] [address] Type: ADM IN Attending Dr: Hawa Sharma MD Copies to: DO Hawa Suárez MD William Patrick McGuinn, MD~ Cardiology HPI History of Present Illness Consult Date: 03/09/23 Reason for Consult: Sustained monomorphic ventricular tachycardia with hemodynamic collapse HPI: Mr. Hernandes is a 78 year old male seen for the above He is an individual with severe ischemic cardiomyopathy ejection fraction 15%. He presented to the emergency room with weakness fatigue shortness of breath lightheadedness and dizziness. He was found to be in a slow sustained monomorphic ventricular tachycardia rate 125 bpm with profound hypotension. Because of this the emergency room physician cardioverted him to sinus rhythm and he is seen now in an atrial ventricular paced rhythm. The patient has a long history of ischemic cardiomyopathy. His first defibrillator implant was approximately 20 years ago and this is his fifth implant device. He recently has had no anginal symptoms and despite the tachyarrhythmia today had not had anginal symptomatology that is preceded previous infarctions. His heart failure symptomatology, as well, has been dramatically improved ever since his upgrade of his defibrillator from a dual-chamber to a biventricular pacemaker defibrillator and he states that his functional status has improved dramatically. Today felt ill but he was in ventricular tachycardia He now feels back to baseline. He denies angina dyspnea or any lasting sequelaefrom this event. I have taken the liberty of reprogramming his device. I discovered he had 2 zones. Both zones consisted of a variety of defibrillator shocks with no antitachycardia pacing and the minimum detection rate for previous programming was 140 bpm. I reprogrammed the device to treat any tachyarrhythmia in excess of 120 bpm with multiple bursts of antitachycardia pacing followed by appropriate shocks. I explained to the patient and his that I have made these changes and they are happy in this regard. Review of Systems Review of Systems All other systems reviewed & are negative unless noted below or in HPI Constitutional Constitutional: Reports system reviewed and no additional complaints, except as documented Eyes Eyes: Reports system reviewed and no additional complaints, except as documented ENT Ears, Nose, Mouth, and Throat: Reports system reviewed and no additional complaints, except as documented Cardiovascular Cardiovascular: Reports as per HPI Respiratory Respiratory: Reports system reviewed and no additional complaints, except as documented Gastrointestinal Gastrointestinal: Reports system reviewed and no additional complaints, except as documented Genitourinary Genitourinary: Reports system reviewed and no additional complaints, except as documented Musculoskeletal Musculoskeletal: Reports system reviewed and no additional complaints, except asdocumented Integumentary/Breasts Skin/Breast: Reports system reviewed and no additional complaints, except as documented Neurologic Neurologic: Reports system reviewed and no additional complaints, except as documented Psychiatric Psychiatric: Reports system reviewed and no additional complaints, except as documented Endocrine Endocrine: Reports system reviewed and no additional complaints, except as documented Hematologic/Lymphatic Hematologic/Lymphatic: Reports system reviewed and no additional complaints, except as documented Allergic/Immunologic Allergic/Immunologic: Reports system reviewed and no additional complaints, except as documented PMFSH Vaccinated for COVID-19?: Yes Medical History (Updated 03/09/23 @ 17:35 by Rojelio Max MD) BPH (benign prostatic hyperplasia) Cardiomyopathy CHF (congestive heart failure) History of myocardial infarction Hyperlipemia Hypertension Macular degeneration Neuropathy FEET TIA (transient ischemic attack) X 2 Surgical History AICD (automatic cardioverter/defibrillator) present History of cardiac catheterization History of cystoscopy WITH ROTORUTER History of hernia surgery History of phacoemulsification of cataract of both eyes with intraocular lens implantation History of tonsillectomy History of vasectomy Status post biventricular pacemaker Family History Father Myocardial infarction Mother Hypertension Brother History of heart surgery Brother Heart disease Sister Hypertension Thyroid disease Sister Hypertension Thyroid disease Social History Smoking Status: Former smoker Tobacco Type: pipe Substance Use Type: None Social History Comments: He admits that he did smoke but it was 50 years ago andat that time he only smoked for 3 years and it was a pipe only and that he did not inhale. Rarely drank any alcohol. Meds Medications and Allergies Allergies No Known Allergies Allergy (Verified 03/09/23 10:53) Home Medications aspirin 81 mg tablet,delayed release 81 mg PO QAM 11/15/17 [History Confirmed 03/09/23] bumetanide 1 mg tablet 1 mg PO QAM 11/15/17 [History Confirmed 03/09/23] folic acid 400 mcg tablet 400 mcg PO QAM 11/15/17 [History Confirmed 03/09/23] nitroglycerin 0.4 mg sublingual tablet (Nitrostat) 0.4 mg sublingual DIRECTEDPRN Chest Pain 11/15/17 [History Confirmed 03/09/23] biotin 5 mg capsule 5 mg PO QAM 09/02/19 [History Confirmed 03/09/23] cholecalciferol (vitamin D3) 50 mcg (2,000 unit) tablet (Vitamin D3) 1,000 unit PO QAM 09/02/19 [History Confirmed 03/09/23] omega 5-nuj-ndq-fish oil 1,000 mg (120 mg-180 mg) capsule (Fish Oil) 1 cap PO BID 09/02/19 [History Confirmed 03/09/23] vit A 300 mcg-C 200 mg-E 27 mg-lutein 2 mg and minerals tablet (Eye Health Plus Lutein) 1 tab PO QAM 09/02/19 [History Confirmed 03/09/23] vitamin B complex 1 cap PO QAM 09/02/19 [History Confirmed 03/09/23] atorvastatin 80 mg tablet 80 mg PO QAM 08/13/22 [History Confirmed 03/09/23] carvedilol 25 mg tablet 25 mg PO BID 08/13/22 [History Confirmed 03/09/23] clopidogrel 75 mg tablet 75 mg PO QAM 08/13/22 [History Confirmed 03/09/23] levothyroxine 50 mcg tablet 50 mcg PO QAM 08/13/22 [History Confirmed 03/09/23] empagliflozin 10 mg tablet (Jardiance) 10 mg PO DAILY 11/21/22 [History Confirmed 03/09/23] amiodarone 100 mg tablet 100 mg PO QAM 30 days #30 tabs 11/25/22 [Rx Confirmed 03/09/23] sacubitril 24 mg-valsartan 26 mg tablet (Entresto) 1 tab PO BID 30 days #60 tabs11/25/22 [Rx Confirmed 03/09/23] spironolactone 25 mg tablet 25 mg PO QAM 30 days #30 tabs 11/25/22 [Rx Confirmed 03/09/23] Exam Physical Exam Vital Signs: Temp Pulse Resp BP Pulse Ox O2 Del Method O2 Flow Rate 98.0 F 60 20 112/61 98 Room Air 4 03/09/23 16:36 03/09/23 16:36 03/09/23 16:36 03/09/23 16:36 03/09/23 16:36 03/09/23 16:36 03/09/23 13:19 HEENT Head: normal to inspection Ears: hearing grossly normal bilaterally Nose: external nose normal and nares normal Face and sinus: normal facial exam Mouth: oral mucosae normal and tongue normal Eyes Conjunctivae: conjunctivae normal Sclera: sclerae normal Neck Neck: normal visual inspection Carotids: normal carotid upstroke Lymphatic: no lymphadenopathy noted Chest Chest palpation & inspection: normal inspection of the chest Resp Effort & Inspection: normal respiratory effort Auscultation: clear to auscultation bilaterally Cardio Rate: regular rate Rhythm: regular rhythm Heart Sounds: S1 normal and S2 normal GI Inspection: normal to inspection Palpation: soft Skin General: no rashes or lesions noted Neuro General: patient alert, patient awake and patient oriented x3 Cognition: normal cognition Motor: muscle tone normal throughout Sensory Exam: no sensory deficits noted Results Labs 03/09/23 11:09 03/09/23 11:09 Lab results: Cardiac Enzymes 03/09/23 03/09/23 Range/Units 11:09 11:09 Total Creatine Kinase 44 (30-223) U/L B-Natriuretic Peptide 1602.0 H (5-100) pg/mL CBC 03/09/23 Range/Units 11:09 RBC 4.37 (3.90-5.60) X10E6/uL Hgb 14.2 (13.0-17.0) g/dL Hct 42.4 (38.8-50.0) % Plt Count 197 (150-450) x10E3/uL Neut # (Auto) 8.3 H (1.8-7.7) x10E3/uL Lymph # (Auto) 1.1 (1.00-4.8) x10E3/uL Rush # (Auto) 0.9 H (0.0-0.8) x10E3/uL Eos # (Auto) 0.3 (0.0-0.45) x10E3/uL Baso # (Auto) 0.1 (0.0-0.2) x10E3/uL Comprehensive Metabolic Panel 03/09/23 Range/Units 11:09 Sodium 134 L (136-145) mmol/L Potassium 4.6 (3.5-5.1) mmol/L Chloride 104 (98-107) mmol/L Carbon Dioxide 24.8 (21.0-31.0) mmol/L BUN 36 H (7-25) mg/dL Creatinine 1.98 H (0.70-1.30) mg/dL Glucose 151 H (70-100) mg/dL Calcium 9.0 (8.6-10.3) mg/dL Intake and Output 03/09/23 03/09/23 03/09/23 07:59 15:59 23:59 Intake Total 550 / 550 Output Total 200 / 675 475 / 675 Balance 350 / -125 -475 / -125 Intake: IV 550 / 550 Magnesium Sulf 2Gm-*Swfi* 2 gm 50 / 50 In 50 ml @ 200 mls/hr IV ONCE ONE Rx#:[id number] Sodium Chloride 0.9% 1,000 ml 500 / 500 500 ml @ 999 mls/hr IV .Q31M ONE Rx#:[id number] Output: Urine 200 / 675 475 / 675 Other: # Voids 1 Weight 98.05 kg 97.9 kg Patient Weight 03/09/23 23:59 Weight 97.9 kg Lab 03/09/23 11:09 PT 12.1 INR 1.0 APTT 27.6 A&P - Cardiology (1) Ventricular tachycardia: Assessment/Problem Details: Sustained monomorphic ventricular tachycardia as above. Made appropriate deviceprogramming changes to mitigate future events such as this. Code(s): I47.20 - Ventricular tachycardia, unspecified (2) Chronic HFrEF (heart failure with reduced ejection fraction): Assessment/Problem Details: Well compensated, and dramatically improved following the implementation of biventricular pacing Code(s): I50.22 - Chronic systolic (congestive) heart failure (3) Coronary artery disease: Assessment/Problem Details: Stable with no manifestations of ischemia Code(s): I25.10 - Atherosclerotic heart disease of [place] coronary artery without angina pectoris Plan Observe overnight for sequelae of this event. If none, probable discharge tomorrow Documented By: Rojelio Max MD 1730 Signed By: <Electronically signed by MD Rojelio Max> 03/09/23 1735 [facility] Work Phone: 1(575) 356-119908-07-2023 History and physical note Author Hawa Sharma [facility] March 09, 2023 2:23pm Note Date/Time March 09, 2023 2:2 3pm [facility] [address] [place] [address] Hospitalist H&P Signed Patient: Shawna Hernandes MR#: [id number] : 1945 Acct:[id number] Age/Sex: 78 / M Adm Date: 3 Loc: ER Room: Type: [facility] ER Attending Dr: Copies to: Agus Nation,DO Pino Rand, DO Hawa Sharma MD~ HPI DATE OF EXAMINATION: 03/09/23 CHIEF COMPLAINT: Dizziness and hypotension. HISTORY OF PRESENT ILLNESS: Patient is a pleasant 78-year-old male with past medical history of nonischemic cardiomyopathy with EF of 15 to 20% as per echo done in 11/23, hypertension, hyperlipidemia and hypothyroidism. Presented to ER with complaint of dizziness and increased heart rate. He underwent biventricular AICD placement around 6 weeks ago at [place] by Dr Ding and as per the patient discharges medications were adjusted. He has been doing fairly well with significant improvement in symptoms after getting biventricular pacemaker. Yesterday he noticed feeling dizzy with some shortness of breath. He checked his pulse and noted to be heartrate in 120s. Earlier today he received a call from [facility] and was told to go to the emergency room since his heart rate has been too high as detected by his pacemaker. The emergency room he was noted to be hypotensive blood pressure in 60s systolic as per the ER physician noted to be in wide-complex tachycardia. Case was discussed with archives technician by ER physician and he was shocked and has been in paced rhythm with heart rate in 60s now. Interrogation of the pacemakershowed cutoff for heart rate was 175 to trigger defibrillation. Cardiology recommended to start amiodarone drip and patient will be admitted to ICU for close monitoring. On examination he was lying flat comfortably with no signs ofrespiratory distress on room air. He denies any chest pain or shortness of breath. He does feel little drowsy after receiving IV Versed. He denies recentinfection, fever, chills, cough or chest pain and has been doing fairly well after placement of biventricular pacer. The ER his labs showed BNP of 1602 and creatinine 1.98. Review of Systems Review of Systems All other systems reviewed & are negative unless noted below or in HPI COUNTS INCLUDE 234 BEDS AT THE [facility] Medical History BPH (benign prostatic hyperplasia) Cardiomyopathy CHF (congestive heart failure) History of myocardial infarction Hyperlipemia Hypertension Macular degeneration TIA (transient ischemic attack) Surgical History AICD (automatic cardioverter/defibrillator) present History of cardiac catheterization History of cystoscopy History of hernia surgery History of phacoemulsification of cataract of both eyes with intraocular lens implantation History of tonsillectomy History of vasectomy Family History Father Myocardial infarction Mother Hypertension Brother History of heart surgery Brother Heart disease Sister Hypertension Thyroid disease Sister Hypertension Thyroid disease Social History Smoking Status: Never smoker Tobacco Type: pipe Substance Use Type: None Social History Comments: He admits that he did smoke but it was 50 years ago andat that time he only smoked for 3 years and it was a pipe only and that he did not inhale. Rarely drank any alcohol. Meds Medications and Allergies Allergies No Known Allergies Allergy (Verified 03/09/23 10:53) Home Medications aspirin 81 mg tablet,delayed release 81 mg PO QAM 11/15/17 [History Confirmed 03/09/23] bumetanide 1 mg tablet 1 mg PO QAM 11/15/17 [History Confirmed 03/09/23] folic acid 400 mcg tablet 400 mcg PO QAM 11/15/17 [History Confirmed 03/09/23] nitroglycerin 0.4 mg sublingual tablet (Nitrostat) 0.4 mg sublingual DIRECTEDPRN Chest Pain 11/15/17 [History Confirmed 03/09/23] biotin 5 mg capsule 5 mg PO QAM 09/02/19 [History Confirmed 03/09/23] cholecalciferol (vitamin D3) 50 mcg (2,000 unit) tablet (Vitamin D3) 1,000 unit PO QAM 09/02/19 [History Confirmed 03/09/23] omega 1-gae-emx-fish oil 1,000 mg (120 mg-180 mg) capsule (Fish Oil) 1 cap PO BID 09/02/19 [History Confirmed 03/09/23] vit A 300 mcg-C 200 mg-E 27 mg-lutein 2 mg and minerals tablet (Eye Health Plus Lutein) 1 tab PO QAM 09/02/19 [History Confirmed 03/09/23] vitamin B complex 1 cap PO QAM 09/02/19 [History Confirmed 03/09/23] atorvastatin 80 mg tablet 80 mg PO QAM 08/13/22 [History Confirmed 03/09/23] carvedilol 25 mg tablet 25 mg PO BID 08/13/22 [History Confirmed 03/09/23] clopidogrel 75 mg tablet 75 mg PO QAM 08/13/22 [History Confirmed 03/09/23] levothyroxine 50 mcg tablet 50 mcg PO QAM 08/13/22 [History Confirmed 03/09/23] empagliflozin 10 mg tablet (Jardiance) 10 mg PO DAILY 11/21/22 [History Confirmed 03/09/23] amiodarone 100 mg tablet 100 mg PO QAM 30 days #30 tabs 11/25/22 [Rx Confirmed 03/09/23] sacubitril 24 mg-valsartan 26 mg tablet (Entresto) 1 tab PO BID 30 days #60 tabs11/25/22 [Rx Confirmed 03/09/23] spironolactone 25 mg tablet 25 mg PO QAM 30 days #30 tabs 11/25/22 [Rx Confirmed 03/09/23] Exam Physical Exam Vital Signs: Temp Pulse Resp BP Pulse Ox O2 Del Method O2 Flow Rate 97.4 F L 60 14 90/58 L 99 Nasal Cannula 4 03/09/23 10:53 03/09/23 13:19 03/09/23 12:56 03/09/23 13:19 03/09/23 13:19 03/09/23 13:19 03/09/23 13:19 Const Orientation: alert, awake and oriented x3 HEENT Head: normal to inspection, no palpable skull fracture, normocephalic and atraumatic Eyes Pupils: PERRL EOM: EOM intact bilaterally and No nystagmus Neck Neck: normal visual inspection and full ROM Resp Effort & Inspection: normal respiratory effort and able to speak in complete sentences Auscultation: no rales, no rhonchi and no wheezes Cardio Rate: regular rate Rhythm: regular rhythm Heart Sounds: S1 normal and S2 normal GI Palpation: soft, not firm, no guarding and nontender Neuro General: patient alert, patient awake, patient oriented x3, moves all extremities and no focal motor deficits Cranial Nerves: CN's II-XII intact bilaterally Cognition: normal cognition Speech: speech normal Motor: muscle tone normal throughout and strength 5/5 throughout Sensory Exam: no sensory deficits noted Extrem General: no clubbing, cyanosis or edema and no calf tenderness Psych Appearance: grossly normal Results Lab Results Labs: Laboratory Last Values Corrected WBC 10.7 X10E3/uL (4.1-10.5) H 03/09/23 11:09 Uncorrected WBC Count 10.7 x10E3/uL (4.1-10.5) H 03/09/23 11:09 RBC 4.37 X10E6/uL (3.90-5.60) 03/09/23 11:09 Hgb 14.2 g/dL (13.0-17.0) 03/09/23 11:09 Hct 42.4 % (38.8-50.0) 03/09/23 11:09 MCV 97.0 fl (83.5-101) 03/09/23 11:09 MCH 32.4 pg (27.5-35.2) 03/09/23 11:09 MCHC 33.4 g/dL (32.5-35.6) 03/09/23 11:09 RDW 14.4 % (12.0-14.8) 03/09/23 11:09 Plt Count 197 x10E3/uL (150-450) 03/09/23 11:09 MPV 10.0 fl (6.6-10.1) 03/09/23 11:09 Neut % (Auto) 77.5 % (.) 03/09/23 11:09 Lymph % (Auto) 10.7 % (.) 03/09/23 11:09 Rush % (Auto) 8.7 % (.) 03/09/23 11:09 Eos % (Auto) 2.6 % (.) 03/09/23 11:09 Baso % (Auto) 0.5 % (.) 03/09/23 11:09 Nucleat RBC Rel Count 0.1 /100 WBC (0-0.5) 03/09/23 11:09 Neut # (Auto) 8.3 x10E3/uL (1.8-7.7) H 03/09/23 11:09 Lymph # (Auto) 1.1 x10E3/uL (1.00-4.8) 03/09/23 11:09 Rush # (Auto) 0.9 x10E3/uL (0.0-0.8) H 03/09/23 11:09 Eos # (Auto) 0.3 x10E3/uL (0.0-0.45) 03/09/23 11:09 Baso # (Auto) 0.1 x10E3/uL (0.0-0.2) 03/09/23 11:09 Monocyte Dist Width 18.22 % (0.00-20.00) 03/09/23 11:09 PT 12.1 Seconds (9.0-12.9) 03/09/23 11:09 INR 1.0 03/09/23 11:09 APTT 27.6 Seconds (25.1-36.5) 03/09/23 11:09 PHA Creatinine Clear 34.25 03/09/23 11:09 Sodium 134 mmol/L (136-145) L 03/09/23 11:09 Potassium 4.6 mmol/L (3.5-5.1) 03/09/23 11:09 Chloride 104 mmol/L (98-107) 03/09/23 11:09 Carbon Dioxide 24.8 mmol/L (21.0-31.0) 03/09/23 11:09 Anion Gap 9.8 mEq/L (6.0-15.0) 03/09/23 11:09 BUN 36 mg/dL (7-25) H 03/09/23 11:09 Creatinine 1.98 mg/dL (0.70-1.30) H 03/09/23 11:09 Est GFR (CKD-EPI) 34.151 mL/Min 03/09/23 11:09 Glucose 151 mg/dL (70-100) H 03/09/23 11:09 Calcium 9.0 mg/dL (8.6-10.3) 03/09/23 11:09 Magnesium 2.4 mg/dL (1.9-2.7) 03/09/23 11:09 Total Creatine Kinase 44 U/L (30-223) 03/09/23 11:09 Troponin I High Sens 31.5 pg/mL (0.0-20.0) H 03/09/23 11:09 B-Natriuretic Peptide 1602.0 pg/mL (5-100) H 03/09/23 11:09 Urine Color Yellow (Yellow) 03/09/23 13:39 Urine Appearance Clear (Clear) 03/09/23 13:39 Urine pH 5.5 (5.0-9.0) 03/09/23 13:39 Ur Specific [place] 1.016 (1.001-1.030) 03/09/23 13:39 Urine Protein Negative mg/dL (Negative) 03/09/23 13:39 Urine Glucose (UA) >=1000 mg/dL (Normal) H 03/09/23 13:39 Urine Ketones Negative (Negative) 03/09/23 13:39 Urine Occult Blood Negative (Negative) 03/09/23 13:39 Urine Nitrite Negative (Negative) 03/09/23 13:39 Urine Bilirubin Negative (Negative) 03/09/23 13:39 Urine Urobilinogen Normal mg/dL (Normal) 03/09/23 13:39 Ur Leukocyte Esterase Negative (Negative) 03/09/23 13:39 Assessment & Plan Assessment/Plan (1) Wide-complex tachycardia: (2) Hypotension: (3) Elevated troponin: (4) Chronic kidney disease, stage 3: (5) Chronic HFrEF (heart failure with reduced ejection fraction): Plan Patient presented to ER with complaint of dizziness and increased heart rate. In the ER he was found to have wide-complex tachycardia and hypotension requireddefibrillation. Currently in paced rhythm with heart rate in the 60s and denieschest pain or shortness of breath. Cardiology recommended starting amiodarone drip and will be admitted to ICU for close monitoring. As per previous cardiology note he had a cath done which showed mild coronary disease. Consult cardiology to further evaluate. Continue to monitor in ICU due to risk of developing malignant arrhythmia. Continue amiodarone drip. I will hold Entresto due to blood pressure on the lower side. Continue aspirin, statin and other home medications. DVT prophylaxis. IP vs OBS Justification Based on differential dx, clinical care plan, and risk of adverse events, if untreated, in my clinical judgement this patient requires an acute care setting as: INPATIENT because of an expectation of an over 2 midnight stay. Estimated length of stay (# of days): 2 Documented By: Hawa Sharma MD 03/09/23 1413 Signed By: <Electronically signed by Hawa Sharma MD> 03/09/23 1423 [facility] Work Phone: 1(290) 925-302405-17-2023 NotePre-procedure Verification and Time Out: Pre-Procedure Verification and Time Out Procedure Locationprocedure area HUDDLE - Pre-procedure Verificationcompleted TIME OUT - Final Verificationcompleted immediately prior to procedure start DEBRIEFcompleted General Information: Anesthesia Critical Care: Non-Anesthesia Date/Time of Procedure: 17-May-2023 00:00 Post-Procedure Diagnosis: Chronic systolic heart failure; LBBB Procedure Name: Biventricular ICD implant (right side); DFT; Venogram (left and right); Lead revision (left side); ICD explant (left side) Findings: grossly normal anatomy Procedure performed by: sd Ross Furnace Operator(s): none Estimated Blood Loss (mL): none Specimen: no Indication(s): Chronic systolic heart failure; LBBB Informed Consent: written consent obtained Procedure Details: Procedure Details: Summary: Successful implant biventricular cardioverter defibrillator (right side). Satisfactory energy safety margin for ventricular defibrillation. The pacing and sensing thresholds were satisfactory. Appropriate detection and treatment of ventricular fibrillation by patient's device. 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 3.The patient should continue with the present medications. Discharge: 1.The patient recovered uneventfully from the effects of conscious sedation. The patient left the EP laboratory in stable condition and was transferred to the telemetry unit and will receive an additional dose of antibiotic. Follow up: 1.The patient will remain in the hospital overnight for telemetry monitoring and observation, with anticipated discharge on the following day. The patient should be alert for bleeding, swelling, or signs of infection. The patient should call the carbon sequestration plant engineer immediately if symptoms recur, or for any problems. The patient and family ( with HIPAA consent) has been instructed accordingly. 2.Follow up with [facility] office in seven days for post-operative wound assessment. 3.Follow up with [facility] in six weeks for routine device analysis and reprogramming if necessary. Remote monitoring will be instituted if possible. Procedures: Pocket opened. Single chamber cardioverter defibrillator explantation (left). Lead disconnection. Lead revision (left) . Pocket revision (left) Successful LV lead implantation (right side). Successful RA and RV lead implant (right side). Biventricular cardioverter defibrillator implantation (right side). Device testing. Ventricular defibrillation threshold testing. Pre operative device analysis. Patient history: Please refer to the detailed history and physical on the patient's medical chart. Diagnosis Chronic systolic heart failure; LBBB Procedure narrative: The risks, benefits, and alternatives to the procedure and sedation were explained to the patient, and informed consent was obtained. The patient was in the fasting state. A grounding pad was placed. Self-adhesive anterior-posterior defibrillation pads were applied. A ZOLL defibrillator was used for monitoring and the defibrillator waveform was set to biphasic. The patient was set up for continuous monitoring of surface 12 lead ECG and pulse oximetry. Blood pressure was monitored. The procedure was performed under IV conscious sedation supplemented with intermittent deep sedation. The upper chest was prepped and draped in the usual sterile fashion. Local anesthesia: After preoperative IV antibiotic was completely infused, subcutaneous tissues just medial to the left deltopectoral area then right deltopectoral area, were infiltrated with Lidocaine 1 % and Marcaine 0.25% for local anesthesia. 1. The device was analyzed and reprogrammed. 2.Under fluoroscopic guidance, using a #15 scalpel, the subcutaneous left infraclavicular pocket was meticulously opened with an incision lateral the previous one. The appearance of the pocket was normal. 3.A single chamber cardioverter defibrillator was detached from the leads and explanted. 4.The existing leads were disconnected from the generator and visually inspected. The leads appeared intact, pacing and sensing thresholds were measured and were found to be satisfactory. 5.The left cephalic vein was identified, the distal end was tied off, and using Dang scissors, a venotomy was created. 6.The cephalic vein was too small to accommodate the lead, therefore a wire was advanced. The wire would not advance centrally. A wholey wire would not advance centrally either. Complex - 120 minutes, access and approach change from left side to right side Venogram showed that the subclavian vein was occluded. Colla (more content not included)...[facility]05-17-2023 NoteHistory & Physical Reviewed: I have reviewed the History and Physical dated: 28-Nov-2022 History and Physical reviewed and relevant findings noted. Patient examined to review pertinent physical findings.: No significant changes Home Medications Reviewed: no changes noted Allergies Reviewed: no changes noted Airway/Sedation Assessment: Emotional Statuscalm Neurologicalert & oriented x 3 Respiratoryclear to auscultation Cardiovascularrhythm & rate regular GI/GUsoft, nontender Pulsespresent: Pedal Left, Pedal Right, Radial Left, Radial Right Mouth Opening OKyes Neck Flexibility OKyes Loose Teethno Oropharyngeal ClassificationClass II ASA PS ClassificationASA III Sedation Planmoderate sedation Consent: COVID-19 Consent: COVID-19 Risk ConsentSurgeon has reviewed villela risks related to the risk of karen COVID-19 and if they contract COVID-19 what the risks are. Electronic Signatures: Rose Ding) (Signed 17-Dec-2022 09:18) Authored: History & Physical Reviewed, Airway/Sedation, Consent, Note Completion Last Updated: 17-Dec-2022 09:18 by Rose Ding)[facility] 12-17-2022 History and physical note* Rose Ding MD - 12/17/2022 9:12 AM EDT History & Physical Reviewed: I have reviewed the History and Physical dated: 28-Nov-2022 History and Physical reviewed and relevant findings noted. Patient examined to review pertinent physical findings.: No significant changes Home Medications Reviewed: no changes noted Allergies Reviewed: no changes noted Airway/Sedation Assessment: Emotional Status calm Neurologic alert & oriented x 3 Respiratory clear to auscultation Cardiovascular rhythm & rate regular GI/ soft, nontender Pulses present: Pedal Left, Pedal Right, Radial Left, Radial Right Mouth Opening OK yes Neck Flexibility OK yes Loose Teeth no Oropharyngeal Classification Class II ASA PS Classification ASA III Sedation Plan moderate sedation Consent: COVID-19 Consent: COVID-19 Risk Consent Surgeon has reviewed villela risks related to the risk of karen COVID-19 and if they contract COVID-19 what the risks are. Electronic Signatures: Rose Ding) (Signed 17-Dec-2022 09:18) Authored: History & Physical Reviewed, Airway/Sedation, Consent, Note Completion Last Updated: 17-Dec-2022 09:18 by Rose Ding) [facility] Work Phone: 1(184) 826-481805-17-2023 History and physical note* Rose Ding MD - 12/17/2022 9:12 AM EDT History & Physical Reviewed: I have reviewed the History and Physical dated: 28-Nov-2022 History and Physical reviewed and relevant findings noted. Patient examined to review pertinent physical findings.: No significant changes Home Medications Reviewed: no changes noted Allergies Reviewed: no changes noted Airway/Sedation Assessment: Emotional Status calm Neurologic alert & oriented x 3 Respiratory clear to auscultation Cardiovascular rhythm & rate regular GI/ soft, nontender Pulses present: Pedal Left, Pedal Right, Radial Left, Radial Right Mouth Opening OK yes Neck Flexibility OK yes Loose Teeth no Oropharyngeal Classification Class II ASA PS Classification ASA III Sedation Plan moderate sedation Consent: COVID-19 Consent: COVID-19 Risk Consent Surgeon has reviewed villela risks related to the risk of karen COVID-19 and if they contract COVID-19 what the risks are. Electronic Signatures: Rose Ding) (Signed 17-Dec-2022 09:18) Authored: History & Physical Reviewed, Airway/Sedation, Consent, Note Completion Last Updated: 17-Dec-2022 09:18 by Rose Ding) [facility] Work Phone: 1(402) 578-757203-13-2023 Hospital Discharge instructions Patient Education 10/13/2022 11:39:47 Benign Prostatic Hyperplasia Benign Prostatic Hyperplasia Benign prostatic hyperplasia (BPH) is an enlarged prostate gland that is caused by the normal agingprocess and not by cancer. The prostate is a walnut-sized gland that is involved in the production of semen. It is located in front of the rectum and below the bladder. The bladder stores urine and the urethra is the tube that carries the urine out of the body. The prostate may get bigger as a man gets older. An enlarged prostate can press on the urethra. This can make it harder to pass urine. The build-up of urine in the bladder can cause infection. Back pressure and infection may progress to bladder damage and kidney (renal) failure. What are the causes? This condition is part of a normal aging process. However, not all men develop problems from this condition. If the prostate enlarges away from the urethra, urine flow will not be blocked. If it enlarges toward the urethra and compresses it, there will be problems passing urine. What increases the risk? This condition is more likely to develop in men over the age of 50 years. What are the signs or symptoms? Symptoms of this condition include: Getting up often during the night to urinate. Needing to urinate frequently during the day. Difficulty starting urine flow. Decrease in size and strength of your urine stream. Leaking (dribbling) after urinating. Inability to pass urine. This needs immediate treatment. Inability to completely empty your bladder. Pain when you pass urine. This is more common if there is also an infection. Urinary tract infection (UTI). How is this diagnosed? This condition is diagnosed based on your medical history, a physical exam, and your symptoms. Tests will also be done, such as: A post-void bladder scan. This measures any amount of urine that may remain in your bladder after you finish urinating. A digital rectal exam. In a rectal exam, your health care provider checks your prostate by putting a lubricated, gloved finger into your rectum to feel the back of your prostate gland. This exam detects the size of your gland and any abnormal lumps or growths. An exam of your urine (urinalysis). A prostate specific antigen (PSA) screening. This is a blood test used to screen for prostate cancer. An ultrasound. This test uses sound waves to electronically produce a picture of your prostate gland. Your health care provider may refer you to a specialist in kidney and prostate diseases (urologist). How is this treated? Once symptoms begin, your health care provider will monitor your condition (active surveillance or watchful waiting). Treatment for this condition will depend on the severity of your condition. Treatment may include: Observation and yearly exams. This may be the only treatment needed if your condition and symptoms are mild. Medicines to relieve your symptoms, including: ?Medicines to shrink the prostate. ?Medicines to relax the muscle of the prostate. Surgery in severe cases. Surgery may include: ?Prostatectomy. In this procedure, the prostate tissue is removed completely through an open incision or with a laparoscope or robotics. ?Transurethral resection of the prostate (TURP). In this procedure, a tool is inserted through the opening at the tip of the penis (urethra). It is used to cut away tissue of the inner core of the prostate. The pieces are removed through the same opening of the penis. This removes the blockage. ?Transurethral incision (TUIP). In this procedure, small cuts are made in the prostate. This lessens the prostate's pressure on the urethra. ?Transurethral microwave thermotherapy (TUMT). This procedure uses microwaves to create heat. The heat destroys and removes a small amount of prostate tissue. ?Transurethral needle ablation (TUNA). This procedure uses radio frequencies to destroy and remove a small amount of prostate tissue. ?Interstitial laser coagulation (ILC). This procedure uses a laser to destroy and remove a small amount of prostate tissue. ?Transurethral electrovaporization (TUVP). This procedure uses electrodes to destroy and remove a small amount of prostate tissue. ?Prostatic urethral lift. This procedure inserts an implant to push the lobes of the prostate away from the urethra. Follow these instructions at home: Take mjjf-iwj-dsccvjo and prescription medicines only as told by your health care provider. Monitor your symptoms for any changes. Contact your health care provider with any changes. Avoid drinking large amounts of liquid before going to bed or out in public. Avoid or reduce how much caffeine or alcohol you drink. Give yourself time when you urinate. Keep all follow-up visits as told by your health care provider. This is important. Contact a health care provider if: You have unexplained back pain. Your symptoms do not get better with treatment. You develop side effects from the medicine you are taking. Your urine becomes very dark or has a bad smell. Your lower abdomen becomes distended and you have trouble passing your urine. Get help right away if: You have a fever or chills. You suddenly cannot urinate. You feel lightheaded, or very dizzy, or you faint. There are large amounts of blood or clots in the urine. Your urinary problems become hard to manage. You develop moderate to severe low back or flank pain. The flank is the side of your body between the ribs and the hip. These symptoms may represent a serious problem that is an emergency. Do not wait to see if the symptoms will go away. Get medical help right away. Call your local emergency services (911 in the [place] Do not drive yourself to the hospital. Summary Benign prostatic hyperplasia (BPH) is an enlarged prostate that is caused by the normal aging process and not by cancer. An enlarged prostate can press on the urethra. This can make it hard to pass urine. This condition is part of a normal aging process and is more likely to develop in men over the age of 50 years. Get help right away if you suddenly cannot urinate. This information is not intended to replace advice given to you by your health care provider. Make sure you discuss any questions you have with your health care provider. Document Released: 07/20/2006 Document Revised: 06/14/2019 Document Reviewed: 08/24/2017 [employer] Patient Education 2020 [employer]. Follow Up Care 09/29/2022 10:54:44 With:SANTO MINER, Kar Nielson, URL Address: [address] [place] [id number]- When:6 months Comments:No labs [facility] 02-27-2023 Hospital Discharge instructions Patient Education 09/29/2022 10:10:47 Transurethral Resection of the Prostate, Care After Transurethral Resection of the Prostate, Care After This sheet gives you information about how to care for yourself after your procedure. Your health care provider may also give you more specific instructions. If you have problems or questions, contact your health care provider. What can I expect after the procedure? After the procedure, it is common to have: Mild pain in your lower abdomen. Soreness or mild discomfort in your penis from having the catheter inserted during the procedure. A feeling of urgency when you need to urinate. A small amount of blood in your urine. You may notice some small blood clots in your urine. These are normal. Follow these instructions at home: Medicines Take szhg-emc-ydqgpjo and prescription medicines only as told by your health care provider. If you were prescribed an antibiotic medicine, take it as told by your health care provider. Do notstop taking the antibiotic even if you start to feel better. Ask your health care provider if the medicine prescribed to you: ?Requires you to avoid driving or using heavy machinery. ?Can cause constipation. You may need to take actions to prevent or treat constipation, such as: ?Take glfn-djv-ipuhmvn or prescription medicines. ?Eat foods that are high in fiber, such as fresh fruits and vegetables, whole grains, and beans. ?Limit foods that are high in fat and processed sugars, such as fried or sweet foods. Do not drive for 24 hours if you were given a sedative during your procedure. Activity Return to your normal activities as told by your health care provider. Ask your health care provider what activities are safe for you. Do not lift anything that is heavier than 10 lb (4.5 kg), or the limit that you are told, for 3 weeks after the procedure or until your health care provider says that it is safe. Avoid intense physical activity for as long as told by your health care provider. Avoid sitting for a long time without moving. Get up and move around one or more times every few hours. This helps to prevent blood clots. You may increase your physical activity gradually as you start to feel better. Lifestyle Do not drink alcohol for as long as told by your health care provider. This is especially importantif you are taking prescription pain medicines. Do not engage in sexual activity until your health care provider says that you can do this. General instructions Do not take baths, swim, or use a hot tub until your health care provider approves. Drink enough fluid to keep your urine pale yellow. Urinate as soon as you feel the need to. Do not try to hold your urine for long periods of time. If your health care provider approves, you may take a stool softener for 2 3 weeks to prevent you from straining to have a bowel movement. Wear compression stockings as told by your health care provider. These stockings help to prevent blood clots and reduce swelling in your legs. Keep all follow-up visits as told by your health care provider. This is important. Contact a health care provider if you have: Difficulty urinating. A fever. Pain that gets worse or does not improve with medicine. Blood in your urine that does not go away after 1 week of resting and drinking more fluids. Swelling in your penis or testicles. Get help right away if: You are unable to urinate. You are having more blood clots in your urine instead of fewer. You have: ?Large blood clots. ?A lot of blood in your urine. ?Pain in your back or lower abdomen. ?Pain or swelling in your legs. ?Chills and you are shaking. ?Difficulty breathing or shortness of breath. Summary After the procedure, it is common to have a small amount of blood in your urine. Avoid heavy lifting and intense physical activity for as long as told by your health care provider. Urinate as soon as you feel the need to. Do not try to hold your urine for long periods of time. Keep all follow-up visits as told by your health care provider. This is important. This information is not intended to replace advice given to you by your health care provider. Make sure you discuss any questions you have with your health care provider. Document Released: 07/20/2006 Document Revised: 11/09/2019 Document Reviewed: 04/20/2019 [employer] Patient Education 2020 [employer]. Follow Up Care 07/18/2022 09:24:37 With:SANTO MINER, Kar Nielson, URL Address: [address] [place] [address]- When:2 to 4 weeks Comments:PVR [facility] 02-09-2023 Consult note Author Marli Fermin [facility] September 11, 2022 2:08am Note Date/Time September 10, 2022 6 :37pm [facility] [address] [place], [place] [id number] Hospitalist Consult Note Signed Patient: Shawna Hernandes MR#: [id number] : 1945 Acct:[id number] Age/Sex: 77 / M Adm Date: 3 Loc: Room: [address] [place] [address] Type: REG SDC Attending Dr: Kar Blanchard MD Copies to: Agus Nation,MD Kar Montgomery MD~ HPI DATE OF CONSULTATION: 09/10/22 REQUESTING PROVIDER: Kar Blanchard Consult Narrative Reason for Consult: HTN, HLD, CAD, HF HPI: This is a pleasant 77M with PMH of HTN, HLD, HFrEF, CAD s/p MN, ICM s/p AICD, TIAs, BPH, MO(BMI >35) who was admitted for post op observation after elective TURP. hospitalist service has been consulted for the medical management of HTN,HLD, CAD, HF He has a history of HF and AICD . He had MN in the past but no stenting. He also had multiple TIAs . He doesn't follow any diet at home but try to avoid salt. The patient is doing well after the surgery. He has chronic SOB . There is no worsening SOB or chest pain Review of Systems Review of Systems Review of systems: Ten Systems reviewed with the patient, all negative except what stated in the [facility] PMF[facility] Vaccinated for COVID-19?: Yes Medical History (Updated 09/11/22 @ 01:13 by Marli Fermin MD) BPH (benign prostatic hyperplasia) Cardiomyopathy CHF (congestive heart failure) History of myocardial infarction Hyperlipemia Hypertension Macular degeneration TIA (transient ischemic attack) Surgical History AICD (automatic cardioverter/defibrillator) present History of cardiac catheterization History of cystoscopy History of hernia surgery History of phacoemulsification of cataract of both eyes with intraocular lens implantation History of tonsillectomy History of vasectomy Family History Father Myocardial infarct Mother Hypertension Brother History of heart surgery Brother Heart disease Sister Hypertension Thyroid disease Sister Hypertension Thyroid disease Social History Smoking Status: Former smoker Tobacco Type: pipe Substance Use Type: None Social History Comments: He admits that he did smoke but it was 50 years ago andat that time he only smoked for 3 years and it was a pipe only and that he did not inhale. Rarely drank any alcohol. Meds Medications and Allergies Allergies No Known Allergies Allergy (Verified 08/13/22 11:20) Home Medications aspirin 81 mg tablet,delayed release 81 mg PO QAM 11/15/17 [History Confirmed 09/10/22] bumetanide 1 mg tablet 1 mg PO QAM 11/15/17 [History Confirmed 09/10/22] folic acid 400 mcg tablet 400 mcg PO QAM 11/15/17 [History Confirmed 09/10/22] nitroglycerin 0.4 mg sublingual tablet (Nitrostat) 0.4 mg sublingual DIRECTEDPRN Chest Pain 11/15/17 [History Confirmed 09/10/22] spironolactone 25 mg tablet 12.5 mg PO QAM 11/15/17 [History Confirmed 09/10/22] amiodarone 200 mg tablet 200 mg PO QAM 09/02/19 [History Confirmed 09/10/22] biotin 5 mg capsule 5 mg PO QAM 09/02/19 [History Confirmed 09/10/22] cholecalciferol (vitamin D3) 50 mcg (2,000 unit) tablet (Vitamin D3) 1,000 unit PO QAM 09/02/19 [History Confirmed 09/10/22] omega 4-mmx-onk-fish oil 1,000 mg (120 mg-180 mg) capsule (Fish Oil) 1 cap PO BID 09/02/19 [History Confirmed 09/10/22] sacubitril 97 mg-valsartan 103 mg tablet (Entresto) 1 tab PO BID 09/02/19 [History Confirmed 09/10/22] vit A 300 mcg-C 200 mg-E 27 mg-lutein 2 mg and minerals tablet (Eye Health Plus Lutein) 1 tab PO QAM 09/02/19 [History Confirmed 09/10/22] vitamin B complex 1 cap PO QAM 09/02/19 [History Confirmed 09/10/22] atorvastatin 80 mg tablet 80 mg PO QAM 08/13/22 [History Confirmed 09/10/22] carvedilol 25 mg tablet 25 mg PO BID 08/13/22 [History Confirmed 09/10/22] clopidogrel 75 mg tablet 75 mg PO QAM 08/13/22 [History Confirmed 09/10/22] levothyroxine 50 mcg tablet 50 mcg PO QAM 08/13/22 [History Confirmed 09/10/22] Active Medications: Active Medications Generic Name Dose Route Start Last Admin Trade Name Suryaq PRN Reason Stop Dose Admin Amiodarone HCl 200 mg 09/11/22 09:00 Amiodarone 200 Mg Tablet PO 09/11/23 08:59 QAM [facility] Aspirin 81 mg 09/11/22 09:00 Aspirin 81 Mg Tablet. PO 09/11/23 08:59 QAM [facility] Atorvastatin Calcium 80 mg 09/11/22 09:00 Atorvastatin 80 Mg Tablet PO 09/11/23 08[facility] Bumetan[facility] 1 mg 09/11/22 09:00 Bumetanide 1 Mg Tablet PO 09/11/23 08:59 QAM [facility] Carvedilol 25 mg 09/10/22 21:00 Carvedilol 25 Mg Tablet PO 09/10/23 20:59 BID MEGHA Clopidogrel Bisulfate 75 mg 09/11/22 09:00 Clopidogrel Bisulfate 75 Mg Tablet PO 09/11/23 08:59 QAM MEG[facility] Hyoscyamine 0.125 mg 09/10/22 15:30 Hyoscyamine Sulfate 0.125 Mg Tab.Rapdis SUBLINGUAL 09/10/23 15:29 Q4H PRN Bladder spasms Lactated Ringer's 1,000 mls @ 20 mls/hr 09/10/22 11:13 09/10/22 15:32 Lactated Ringers IV 09/11/22 11:12 20 mls/hr .Q24H ONE Infusion Sodium Chloride 1,000 mls @ 75 mls/hr 09/10/22 15:30 09/10/22 17:32 0.9% Sodium Chloride 1,000 Ml IV 09/10/23 15:29 75 mls/hr .[id number] MEGHA Administration Levothyroxine Sodium 50 mcg 09/11/22 09:00 Levothyroxine 50 Mcg Tablet PO 09/11/23 08:59 QAM MEGHA Nitroglycerin 0.4 mg 09/10/22 18:35 Nitroglycerin 0.4 Mg Tab.Subl SUBLINGUAL 09/10/23 18:34 DIRECTED PRN Chest Pain Oxycodone/Acetaminophen 1 tab 09/10/22 15:30 Oxycodone/Acetaminophen 5-325 Mg Tablet PO Q4H PRN Moderate Pain Promethazine HCl 12.5 mg 09/10/22 15:30 Promethazine 25 Mg/Ml Vial IV-PUSH 09/10/23 15:29 Q4H PRN Nausea Sacubitril/Valsartan 1 tab 09/10/22 21:00 Sacubitril/Valsartan 97-103mg 1 Tab Tablet PO 09/10/23 20:59 BID [facility] Sodium Chloride 0 ml 09/10/22 11:13 Sodium Chloride 0.9 % 10 Ml Syringe IV-PUSH 09/10/23 11:12 PRN PRN Flush Sodium Chloride 0 ml 09/10/22 11:13 Sodium Chloride 0.9 % 10 Ml Syringe IV-PUSH 09/10/23 11:12 PRN PRN Flush Sodium Chloride 10 ml 09/10/22 15:30 Sodium Chloride 0.9 % 10 Ml Vial.Pf INJECTION 09/10/23 15:29 PRN PRN Promethazine Dilution Spironolactone 12.5 mg 09/11/22 09:00 Spironolactone 12.5 Mg Tablet PO 09/11/23 08:59 QAM MEGHA Exam Physical Exam Vital Signs: Temp Pulse Resp BP Pulse Ox O2 Del Method O2 Flow Rate 36.6 C 50 L 21 120/63 100 Room Air 8 09/10/22 18:00 09/10/22 18:00 09/10/22 18:00 09/10/22 18:00 09/10/22 18:00 09/10/22 18:22 09/10/22 15:37 Narrative: GEN: Pleasant, Cooperative, Not in acute distress. NECK: Supple, ? JVD LUNGS: CTA. normal respiratory effort. CV: S1S2 nl, ? M/R/G ABD: Soft, ND, NT, + BS, ? rebound/guarding, ?CVA tenderness, ? HSM EXT: No edema in LE bilaterally, no calf muscle tenderness. NEURO: ? FND PSYCH: nl affect, AOx3. Results Lab Results Labs: Laboratory Results - last 72 hr 09/10/22 11:35: PT 13.2 H, INR 1.1, APTT 28.0 A&P - Hospitalist Assessment/Plan (1) Hypertension: (2) Hyperlipidemia: (3) AICD (automatic cardioverter/defibrillator) present: (4) Coronary artery disease: (5) CHF (congestive heart failure): Plan HF/HTN/HLD/CAD Continue home ASA, Coreg, Entresto, Aldactone and statin Check BMP, CBC DVT Px Per primary team Plan of care Discussed with: the medical team, the patient Thank you very much for allowing me to participate in the care of this very pleasant patient. Documented By: Marli Fermin MD 09/10/22 9888 Signed By: <Electronically signed by Marli Fermin MD> 09/11/22 0208 [facility] Work Phone: [phone] 780-239510-03-2022 Hospital Discharge instructions Patient Education 05/05/2022 11:59:08 Benign Prostatic Hyperplasia Benign Prostatic Hyperplasia Benign prostatic hyperplasia (BPH) is an enlarged prostate gland that is caused by the normal agingprocess and not by cancer. The prostate is a walnut-sized gland that is involved in the production of semen. It is located in front of the rectum and below the bladder. The bladder stores urine and the urethra is the tube that carries the urine out of the body. The prostate may get bigger as a man gets older. An enlarged prostate can press on the urethra. This can make it harder to pass urine. The build-up of urine in the bladder can cause infection. Back pressure and infection may progress to bladder damage and kidney (renal) failure. What are the causes? This condition is part of a normal aging process. However, not all men develop problems from this condition. If the prostate enlarges away from the urethra, urine flow will not be blocked. If it enlarges toward the urethra and compresses it, there will be problems passing urine. What increases the risk? This condition is more likely to develop in men over the age of 50 years. What are the signs or symptoms? Symptoms of this condition include: Getting up often during the night to urinate. Needing to urinate frequently during the day. Difficulty starting urine flow. Decrease in size and strength of your urine stream. Leaking (dribbling) after urinating. Inability to pass urine. This needs immediate treatment. Inability to completely empty your bladder. Pain when you pass urine. This is more common if there is also an infection. Urinary tract infection (UTI). How is this diagnosed? This condition is diagnosed based on your medical history, a physical exam, and your symptoms. Tests will also be done, such as: A post-void bladder scan. This measures any amount of urine that may remain in your bladder after you finish urinating. A digital rectal exam. In a rectal exam, your health care provider checks your prostate by putting a lubricated, gloved finger into your rectum to feel the back of your prostate gland. This exam detects the size of your gland and any abnormal lumps or growths. An exam of your urine (urinalysis). A prostate specific antigen (PSA) screening. This is a blood test used to screen for prostate cancer. An ultrasound. This test uses sound waves to electronically produce a picture of your prostate gland. Your health care provider may refer you to a specialist in kidney and prostate diseases (urologist). How is this treated? Once symptoms begin, your health care provider will monitor your condition (active surveillance or watchful waiting). Treatment for this condition will depend on the severity of your condition. Treatment may include: Observation and yearly exams. This may be the only treatment needed if your condition and symptoms are mild. Medicines to relieve your symptoms, including: ?Medicines to shrink the prostate. ?Medicines to relax the muscle of the prostate. Surgery in severe cases. Surgery may include: ?Prostatectomy. In this procedure, the prostate tissue is removed completely through an open incision or with a laparoscope or robotics. ?Transurethral resection of the prostate (TURP). In this procedure, a tool is inserted through the opening at the tip of the penis (urethra). It is used to cut away tissue of the inner core of the prostate. The pieces are removed through the same opening of the penis. This removes the blockage. ?Transurethral incision (TUIP). In this procedure, small cuts are made in the prostate. This lessens the prostate's pressure on the urethra. ?Transurethral microwave thermotherapy (TUMT). This procedure uses microwaves to create heat. The heat destroys and removes a small amount of prostate tissue. ?Transurethral needle ablation (TUNA). This procedure uses radio frequencies to destroy and remove a small amount of prostate tissue. ?Interstitial laser coagulation (ILC). This procedure uses a laser to destroy and remove a small amount of prostate tissue. ?Transurethral electrovaporization (TUVP). This procedure uses electrodes to destroy and remove a small amount of prostate tissue. ?Prostatic urethral lift. This procedure inserts an implant to push the lobes of the prostate away from the urethra. Follow these instructions at home: Take splk-[id number] and prescription medicines only as told by your health care provider. Monitor your symptoms for any changes. Contact your health care provider with any changes. Avoid drinking large amounts of liquid before going to bed or out in public. Avoid or reduce how much caffeine or alcohol you drink. Give yourself time when you urinate. Keep all follow-up visits as told by your health care provider. This is important. Contact a health care provider if: You have unexplained back pain. Your symptoms do not get better with treatment. You develop side effects from the medicine you are taking. Your urine becomes very dark or has a bad smell. Your lower abdomen becomes distended and you have trouble passing your urine. Get help right away if: You have a fever or chills. You suddenly cannot urinate. You feel lightheaded, or very dizzy, or you faint. There are large amounts of blood or clots in the urine. Your urinary problems become hard to manage. You develop moderate to severe low back or flank pain. The flank is the side of your body between the ribs and the hip. These symptoms may represent a serious problem that is an emergency. Do not wait to see if the symptoms will go away. Get medical help right away. Call your local emergency services (911 in the [place] Do not drive yourself to the hospital. Summary Benign prostatic hyperplasia (BPH) is an enlarged prostate that is caused by the normal aging process and not by cancer. An enlarged prostate can press on the urethra. This can make it hard to pass urine. This condition is part of a normal aging process and is more likely to develop in men over the age of 50 years. Get help right away if you suddenly cannot urinate. This information is not intended to replace advice given to you by your health care provider. Make sure you discuss any questions you have with your health care provider. Document Released: 07/20/2006 Document Revised: 06/14/2019 Document Reviewed: 08/24/2017 [employer] Patient Education 2020 [employer]. Follow Up Care 05/02/2021 11:42:29 With:SANTO MINER, Kar Nielson, URL Address: [address] [place] [address]- When: Unknown [facility] Discharge summary Author Bro Henry [facility] March 13, 2023 1:35pm Note Date/Time March 13, 2023 12 :24pm [facility] [address] [place] [address] Discharge Summary Signed Patient: Shawna Hernandes MR#: [id number] : 1945 Acct:[id number] Age/Sex: 78 / M Adm Date: 3 Loc: Room: 7A9204-[address]: Bro Henry MD Copies to: DO Bro Suárez MD~ Providers Date of Discharge: 03/13/23 Discharging Provider: Bro Henry Primary Care Provider: Agus Nation Consults: 03/09/23 14:25 Consult to Cardiology Routine Consult to Pulmonology Routine 03/11/23 10:13 Consult to Physical Therapy Routine OT [Consult to Occupational Therapy] Routine Discharge Diagnosis (1) Sustained ventricular tachycardia: (2) Monomorphic ventricular tachycardia: (3) Coronary artery disease: (4) Ischemic cardiomyopathy: (5) AICD (automatic cardioverter/defibrillator) present: (6) Chronic HFrEF (heart failure with reduced ejection fraction): (7) Chronic kidney disease, stage 3: Final Diagnosis Final Discharge Diagnosis: As above Summary Hospital Course Hospital course: Mr. Hernandes is a 78yo M with PMH of ischemic cardiomyopathy with EF of 15 to 20%, HTN, HLD, hypothyroidism who presents to the emergency department with dizziness and tachycardia. Patient had biventricular AICD placement around 6 weeks prior at [facility] per Dr. Ding. He was told to go into the emergency department when his pacemaker company told him that his heart rate had been too fast for too long. In the emergency dept, patient's blood pressure was 60 systolic and he did require synchronized cardioversion. Patient has a prolongedcardiac history and has had 5 ICD/pacemaker devices implanted previously. He was admitted to ICU given this history and unstable monomorphic V. tach on presentation. Cardiology consulted for further inpatient management. Patient'spacemaker was was reprogrammed to have a minimum detection rate for tachyarrhythmia greater than 120 bpm when it was previously 140. He underwent cardiac catheterization, as there was concern that his tachyarrhythmia could have an ischemic etiology. He was observed to have severe left main and proximal LAD disease. Options were discussed with patient, who did not prefer transfer to a tertiary care facility. He was offered high risk PCI here at [facility]. He was maintained on IV lidocaine infusion in the interim. He underwent second cardiac catheterization on 03/12/2023, and underwent 2 drug- eluting stent placement. Patient tolerated the procedure without complication. Home cardiac regimen optimized prior to patient's discharge: Aspirin, Plavix, amiodarone, bumetanide, Coreg, Entresto, Jardiance. 35 minutes spent coordinating the discharge of this patient Time Spent with Patient Time spent providing/coordinating discharge services (# min): 35 Surgeries and Procedures Operation Date: 03/10/23 15:00 Actual Procedures p CL LHC & COR Angio - W Shaq Archer DO Operation Date: 03/12/23 13:30 Actual Procedures p CL Ivus Initial Vessel - W Shaq Archer DO p CL Stent 1st Vessel LM BOSSMAN - W Shaq Archer DO p CL Closure Device Placement 0 - W Shaq Archer DO Diagnostic Studies Completed and Pending Studies Pending studies at discharge: 03/12/23 14:25 CPR cardiac rehab ed Routine 03/13/23 05:00 ECG 12 lead ECG IN AM Labs on day of discharge: 03/13/23 04:22: Troponin I High Sens 470.0 H* 03/13/23 04:22: PHA Creatinine Clear 47.85, Sodium 133 L, Potassium 4.1, Chloride 111 H, Carbon Dioxide 22.8, Anion Gap 3.3 L, BUN 23, Creatinine 1.40 H,Est GFR (CKD- EPI) 51.766, Glucose 89, Calcium 8.0 L 03/13/23 04:22: Corrected WBC 9.0, Uncorrected WBC Count 9.0, RBC 3.67 L, Hgb 12.1 L, Hct 35.7 L, MCV 97.2, MCH 32.9, MCHC 33.9, RDW 14.1, Plt Count 137 L, MPV 9.9, Neut % (Auto) 75.3, Lymph % (Auto) 8.9, Rush % (Auto) 11.8, Eos % (Auto) 3.5, Baso % (Auto) 0.5, Nucleat RBC Rel Count 0.0, Neut # (Auto) 6.8, Lymph # (Auto) 0.8 L, Rush # (Auto) 1.1 H, Eos # (Auto) 0.3, Baso # (Auto) 0.0 Exam Physical Exam Vital Signs: Temp Pulse Resp BP Pulse Ox O2 Del Method O2 Flow Rate 97.9 F 60 20 139/67 94 L Room Air 4 03/12/23 14:30 03/13/23 12:00 03/13/23 12:00 03/13/23 12:00 03/13/23 12:00 03/13/23 12:00 03/09/23 13:19 Narrative: Constitutional: Elderly WM, standing at bedside, pleasant, calm HEENT: Moist mucous membranes, neck supple, no JVD Cardiovascular: RRR, no M/R/G, normal S1 and S2 Respiratory: Clear to auscultation bilaterally, no wheezes, rales or rhonchi GI: Soft, obese abdomen, nontender to palpation, normoactive bowel sounds, no rebound tenderness or guarding : Deferred Extremities: No clubbing, cyanosis or edema Neuro: AAOx3, no focal deficits Skin: No rashes or lesions noted upon anterior inspection Psych: Calm, cooperative and conversant Discharge Plan Discharge Plan Patient Dis[place] [facility] [place]: Other Comment: Please follow Angioplasty discharge instructions for activity restrictions Diet: Low-Sodium and Low-Cholesterol Additional Instructions: Home health to manage: - PT/OT to eval and treat - Monitor VS routine - Cardiac assessments - Dx. Ventricular tachycardia, CHF - CHF assessments/education - Fall precautions - high fall risk - Routine skin assessments/care DISCHARGE INSTRUCTIONS FOR ANGIOPLASTY/CORONARY/PERIPHERAL/STENT IMPLANT FOR ADULT ANTICOAGULATION -Since the greatest risk of a blood clot forming with the stent occurs in the first 2-3 weeks after implantation, you will need to take anticoagulants for at least 12-18 months. ANTICOAGULATION MEDICATION Aspirin 81mg once a day, Clopidogrel (Plavix) 75mg one tablet STATIN MEDICATION Atorvastatin (Lipitor) 80 mg Drug-Eluting Stent (BOSSMAN) DO NOT discontinue Plavix/Aspirin during the first few months regardless of whatyou are advised by your family doctor or pharmacist, without first calling the archives technician who implanted the stent. If you require pain relief during this time, please take only ACETAMINOPHEN (TYLENOL)- NO additional aspirin or ibuprofen. DISCHARGE ACTIVITIES ARE FOLLOWS: First week after discharge: -Take it easy at home, no strenuous activity. -Do not lift or pull objects over 10-15 pounds, including children, and groceries for four weeks. If puncture site is at wrist do NOT lift more than three pounds for three days. - May walk up stairs. -May shower. -No excessive scrubbing of the affected site (groin). -May ride in car. -May resume sexual intercourse after 1-2 weeks. -No MRI for 12 days. -May drive in 4-7 days. -If puncture site is at the wrist do not manipulate the wrist for 24 hours, and no soaking wrist for three days. Second Week: -May take a bath -May start walking 3 times a week for 15-20 minutes at a leisurely pace. You should be able to carry on a conversation comfortably without feeling winded. -No strenuous activity as in jogging, running, weight lifting, stair steppers, etc. until the archives technician approves these activities. Check with the archives technician on your first follow-up visit. CALL YOUR PHYSICIAN at [phone]: -If bleeding should occur from the catheter insertion site- apply pressure to the site then immediately call us. -Report any fever, redness, drainage, increased swelling, or firmness at the catheter insertion site. Some bruising or slight swelling may be present at thetime of discharge. -Should arm or leg become cold, numb, white, or blue, contact the archives technician immediately. -IF you should experience episodes of angina, e.g. chest discomfort, heaviness, tightness, pressure burning with or without radiation to the neck, jaw, arms or back- use 1 Nitrostat tablet under your tongue every 5-10 minutes and up to three tablets. IF NO RELIEF, CALL 911 or GO TO THE NEAREST EMERGENCY ROOM. -Please notify our office if you have recurrent angina. -[Cardiac Rehab Education Provided. Participation in the Cardiopulmonary Rehabilitation program is recommended. Please call Central Scheduling at [phone] to schedule your appointment.] The attending archives technician or [facility] nurse clinician should provide you with specific instructions regarding activity, diet, medications, and further follow up for you. Follow the medication instructions provided on your discharge. If the dosages and instructions on this sheet differ from the dosage and instructions on the bottle, follow the instructions on the bottle. [facility] is not responsible for incorrect prescription information provided by thepatient during their visit. Do not stop your medications without consulting your health care provider. Please take the list with you to your next doctor's appointment. Instructions: Coronary Angioplasty (DC), Coronary Stenting (DC), Angina (DC), Chest Pain (DC), Drug Eluting Stents Prescriptions: New carvedilol 6.25 mg Tablet 6.25 mg PO BID 30 Days Qty: 60 12RF Continued biotin 5 mg Capsule 5 mg PO QAM vitamin B complex Capsule 1 cap PO QAM Eye Health Plus Lutein 1,000 unit-200 mg-60 unit-2 mg Tablet 1 tab PO QAM cholecalciferol (vitamin D3) [Vitamin D3] 2,000 unit Tablet 1,000 unit PO QAM omega 2-ish-wfl-fish oil [Fish Oil] 1,000 mg (120 mg-180 mg) Capsule 1 cap PO BID atorvastatin 80 mg tablet 80 mg PO QAM levothyroxine 50 mcg tablet 50 mcg PO QAM clopidogrel 75 mg tablet 75 mg PO QAM Jardiance 10 mg tablet 10 mg PO DAILY spironolactone 25 mg Tablet 25 mg PO QAM 30 Days Qty: 30 12RF Rx Instructions: 1/2 tab every day amiodarone 100 mg Tablet 100 mg PO QAM 30 Days Qty: 30 12RF Entresto 24-26 mg Tablet 1 tab PO BID 30 Days Qty: 60 3RF folic acid 400 mcg Tablet 400 mcg PO QAM aspirin 81 mg Tablet,Delayed Release (Dr/Ec) 81 mg PO QAM nitroglycerin [Nitrostat] 0.4 mg Tablet, Sublingual 0.4 mg Sublingual DIRECTED PRN (Reason: Chest Pain) bumetanide 1 mg tablet 1 mg PO QAM Patient Comments: Discontinued carvedilol 25 mg tablet 25 mg PO BID Other Ambulatory Orders: Initiate Home Health (Routine) Timeframe: 1 Day Location: Determined by Patient Ordered By: Bro Henry Initiate Home Health (Routine) Timeframe: 1 Day Location: Determined by Patient Ordered By: Bro Henry Follow Up: Ranjan Quiles MD [Active Staff] - 04/01/23 9:30 am Agus Nation DO [Primary Care Provider] - 03/20/23 11:20 am (Post hospital appointment. Please call to reschedule if needed.) Documented By: Bro Henry MD 3 1223 Signed By: <Electronically signed by Bro Henry MD> 03/13/23 1335 [facility] Work Phone: Evaluation + Plan note Future Appointments Appointment Date:07/02/2022 07:45:00 AM Scheduled Provider: Location:[facility] Appointment Type:Urology CALL PAT FT Appointment Date:07/09/2022 08:15:00 AM Scheduled Provider: Location:[facility] Appointment Type:Urology FT [facility] Evaluation + Plan note Future Appointments Appointment Date:10/13/2022 10:30:00 AM Scheduled Provider:Kar BLANCHARD MD Location:[facility] Appointment Type:URO Office Visit [facility] Evaluation + Plan note Future Appointments Appointment Date:04/20/2023 11:00:00 AM Scheduled Provider:Kar BLANCHARD MD Location:[facility] Appointment Type:URO Office Visit [facility] Evaluation + Plan note Future Appointments Appointment Date:05/25/2024 10:45:00 AM Scheduled Provider:Jyoti Chu MD Location:[facility] Appointment Type:URO Office Visit Diagnostic Tests Pending * PSA Free & Total 05/20/23 [facility] evaluation noteNo assessment information available [facility] Work Phone: Evaluation note* Diagnosis Onset Date Resolution Status CHF (congestive heart failure) acute AICD (automatic cardioverter/defibrillator) present chronic Coronary artery disease etl informatica architect luna Hyperlipidemia chronic Hypertension chronic [facility] Work Phone: Evaluation note* Diagnosis Onset Date Resolution Status CHF (congestive heart failure) acute AICD (automatic cardioverter/defibrillator) present chronic Coronary artery disease etl informatica architect luna Hyperlipidemia chronic Hypertension chronic LEA (acute kidney injury) ac barrow Dizziness acute Elevated troponin acute Hypotension acute [facility] Work Phone: Evaluation note* Diagnosis Onset Date Resolution Status CHF (congestive heart failure) acute AICD (automatic cardioverter/defibrillator) present chronic Coronary artery disease etl informatica architect luna Hyperlipidemia chronic Hypertension chronic Acute on chronic systolic heart failure, NYHA class 3 acute LEA (acute kidney injury) ac barrow Dizziness acute Elevated troponin acute Hypotension acute Left bundle branch block acu te Monomorphic ventricular tachycardia acute AICD (automatic cardioverter/defibrillator) present chronic [facility] Work Phone: Evaluation note* Diagnosis Onset Date Resolution Status Acute on chronic systolic heart failure, NYHA class 3 acute LEA (acute kidney injury) ac barrow Dizziness acute Elevated troponin acute Hypotension acute Left bundle branch block acu te Monomorphic ventricular tachycardia acute AICD (automatic cardioverter/defibrillator) present chronic [facility] Work Phone: Evaluation note* Diagnosis Onset Date Resolution Status Chronic HFrEF (heart failure with reduced ejection fraction) acute Chronic kidney disease, stage 3 acute Elevated troponin acute Hypotension acute Tachyarrhythmia acute Ventricular tachycardia acut e Wide-complex tachycardia acu te Coronary artery disease etl informatica architect luna [facility] Work Phone: Evaluation note* Diagnosis Congestive heart failure, unspecified HF chronicity, unspecified heart failure type (CMS/HCC) Cardiomyopathy, ischemic Other specified forms of chronic ischemic heart disease Essential hypertension, benign documented in this encounter [facility] Work Phone: Evaluation note* Diagnosis Chronic systolic (congestive) heart failure (CMS/HCC) Encounter for adjustment and management of automatic implantable cardiac defibrillator Hypertensive heart disease with heart failure (CMS/HCC) Unspecified hypertensive heart disease with heart failure Left bundle-branch block, unspecified Obesity, unspecified Body mass index (BMI) 33.0-33.9, adult Pulmonary hypertension, unspecified (CMS/HCC) Personal history of nicotine dependence assisted (current) use of aspirin documented in this encounter [facility] Work Phone: Evaluation note* Diagnosis Congestive heart failure, unspecified HF chronicity, unspecified heart failure type (CMS/HCC) Cardiomyopathy, ischemic Other specified forms of chronic ischemic heart disease documented in this encounter [facility] Work Phone: Evaluation note* Diagnosis Esophageal dysphagia- Primary Dysphagia, pharyngoesophageal phase Gastroesophageal reflux disease, unspecified whether esophagitis present Bilious vomiting with nausea [facility] Diagnosis Esophageal dysphagia Dysphagia, pharyngoesophageal phase [facility]* Diagnosis Esophageal motility disorder- Primary Dyskinesia of esophagus [facility]* Diagnosis Congestive heart failure, unspecified HF chronicity, unspecified heart failure type (CMS/HCC)- Primary Cardiomyopathy, ischemic Other specified forms of chronic ischemic heart disease Atrial fibrillation, unspecified type (CMS/HCC) Class 1 obesity with body mass index (BMI) of 32.0 to 32.9 in adult, unspecified obesity type, unspecified whether serious comorbidity present Never smoked cigarettes AICD (automatic cardioverter/defibrillator) present Automatic implantable cardiac defibrillator in situ Paroxysmal ventricular tachycardia (CMS/HCC) Paroxysmal ventricular tachycardia High risk medication use Dyslipidemia Other and unspecified hyperlipidemia documented in this encounter [facility] Work Phone: Evaluation note* Diagnosis Onset Date Resolution Status Belching acute Dyspepsia acute Dysphagia acute Nausea acute [facility] Work Phone: Evaluation note* Diagnosis Paroxysmal ventricular tachycardia (Multi)- Primary Paroxysmal ventricular tachycardia Atrial fibrillation, unspecified type (Multi) Cardiomyopathy, ischemic Other specified forms of chronic ischemic heart disease Congestive heart failure, unspecified HF chronicity, unspecified heart failure type (Multi) Essential hypertension, benign BMI 31.0-31.9,adult Never smoked cigarettes High risk medication use Dyslipidemia Other and unspecified hyperlipidemia AICD discharge Stage 3b chronic kidney disease (Multi) documented in this encounter [facility] Work Phone: Evaluation note* Diagnosis Onset Date Resolution Status Belching acute Schatzki's ring acute [facility] Work Phone: Evaluation note* Diagnosis Onset Date Resolution Status Belching acute Schatzki's ring acute Cervical back pain with evidence of disc disease acute Compression fracture of lumbar vertebra acute Compression fracture of thoracic vertebra acute Lumbar back pain acute [facility] Work Phone: Evaluation note* Diagnosis Onset Date Resolution Status Belching acute Schatzki's ring acute Cervical back pain with evidence of disc disease acute Compression fracture of lumbar vertebra acute Compression fracture of thoracic vertebra acute Lumbar back pain acute Hypotension acute Intractable abdominal pain a cute Nausea acute [facility] Work Phone: Evaluation note* Diagnosis Onset Date Resolution Status Belching acute Schatzki's ring acute Cervical back pain with evidence of disc disease acute Compression fracture of lumbar vertebra acute Compression fracture of thoracic vertebra acute Lumbar back pain acute Cholecystitis acute Hypotension acute Intractable abdominal pain a cute Ischemic cardiomyopathy acut e Nausea acute Pulmonary hypertension acute Sepsis acute [facility] Work Phone: Evaluation note* Diagnosis Coronary artery disease involving [place] coronary artery of [place] heart without angina pectoris- Primary [facility]stitis [facility] Onset Date Resolution Status Belching acute Schatzki's ring acute Cervical back pain with evidence of disc disease acute Compression fracture of lumbar vertebra acute Compression fracture of thoracic vertebra acute Lumbar back pain acute Cholecystitis acute Hypotension acute Ischemic cardiomyopathy acut e Pulmonary hypertension acute Sepsis acute [facility] Work Phone: Evaluation note* Diagnosis Coronary artery disease, unspecified vessel or lesion type, unspecified whether angina present, unspecified whether [place] or transplanted heart- Primary Acute [facility]olecystitis [facility] AICD discharge- Primary Chronic systolic heart failure Paroxysmal ventricular tachycardia (Multi) Paroxysmal ventricular tachycardia Cardiomyopathy, ischemic Other specified forms of chronic ischemic heart disease High risk medication use Essential hypertension, benign Paroxysmal atrial fibrillation (Multi) Atrial fibrillation Never smoked cigarettes BMI 30.0-30.9,adult Cholecystitis Cholecystitis, unspecified Bilateral lower extremity edema 3-vessel coronary artery disease Dyslipidemia Other and unspecified hyperlipidemia Obesity, Class I, BMI 30-34.9 Stage 3a chronic kidney disease (Multi) documented in this encounter [facility] Work Phone: Evaluation note* Diagnosis Acute cholecystitis- Primary Chronic obstructive pulmonary disease, unspecified COPD type ([facility]) Hypertensive heart and chronic kidney disease with heart failure and stage 1 through stage 4 chronic kidney disease, or chronic kidney disease (CMS-HCC) Chronic systolic congestive heart failure (CMS-HCC) Anemia in chronic kidney disease (CODE) Stage 3b chronic kidney disease (CMS-HCC) Paroxysmal atrial fibrillation (CMS-HCC) Atrial fibrillation Hyperlipidemia, unspecified hyperlipidemia type Ischemic cardiomyopathy Other specified forms of chronic ischemic heart disease BPH with obstruction/lower urinary tract symptoms Personal history of transient ischemic attack (TIA), and cerebral infarction without residual deficits Presence of automatic cardioverter/defibrillator (AICD) Automatic implantable cardiac defibrillator in situ [facility] Diagnosis Acute cholecystitis- Primary Presence of automatic cardioverter/defibrillator (AICD) Automatic implantable cardiac defibrillator in situ Chronic obstructive pulmonary disease, unspecified COPD type (CMS-HCC) Hypertensive heart and chronic kidney disease with heart failure and stage 1 through stage 4 chronic kidney disease, or chronic kidney disease (CMS-HCC) Chronic systolic congestive heart failure (CMS-HCC) Paroxysmal atrial fibrillation (CMS-HCC) Atrial fibrillation Anemia in chronic kidney disease (CODE) Stage 3b chronic kidney disease (CMS-HCC) Ischemic cardiomyopathy Other specified forms of chronic ischemic heart disease [facility]* Diagnosis Preoperative examination- Primary Preoperative examination, unspecified Acute cholecystitis Sepsis, due to unspecified organism, unspecified whether acute organ dysfunction present (HCC) Preoperative examination Preoperative examination, unspecified Acute cholecystitis [facility] Diagnosis Acute cholecystitis- Primary Chronic systolic congestive heart failure (CMS-HCC) Presence of automatic cardioverter/defibrillator (AICD) Automatic implantable cardiac defibrillator in situ Ischemic cardiomyopathy Other specified forms of chronic ischemic heart disease [facility]* Diagnosis Acute cholecystitis- Primary Chronic systolic congestive heart failure (CMS-HCC) Ischemic cardiomyopathy Other specified forms of chronic ischemic heart disease Nausea Nausea alone [facility] Diagnosis Chronic congestive heart failure, unspecified heart failure type (CMS-HCC) [facility]* Diagnosis Choledocholithiasis- Primary Calculus of bile duct without mention of cholecystitis or obstruction Preoperative examination Preoperative examination, unspecified Acute cholecystitis [facility] Diagnosis Acute cholecystitis- Primary Preoperative examination Preoperative examination, unspecified Acute cholecystitis Acute cholecystitis [facility] Diagnosis Choledocholithiasis- Primary Calculus of bile duct without mention of cholecystitis or obstruction Acute cholecystitis Chronic systolic congestive heart failure ([facility]) Coronary artery disease involving [place] coronary artery of [place] heart without angina pectoris [facility] Diagnosis Choledocholithiasis- Primary Calculus of bile duct without mention of cholecystitis or obstruction Chronic systolic congestive heart failure ([facility]) Coronary artery disease involving [place] coronary artery of [place] heart without angina pectoris documented [facility] Diagnosis Paroxysmal atrial fibrillation ([facility])- Primary Atrial fibrillation Coronary artery disease involving [place] coronary artery of [place] heart without angina pectoris Heart failure with reduced ejection fraction (HFrEF, <= 40%) ([facility]) VT (ventricular tachycardia) ([facility]) Paroxysmal ventricular tachycardia Preoperative examination Preoperative examination, unspecified Acute cholecystitis Acute cholecystitis documented in this encounter [facility] note* Diagnosis Preoperative examination- Primary Preoperative examination, unspecified Acute cholecystitis History of TIA (transient ischemic attack) Transient ischemic attack (TIA), and cerebral infarction without residual deficits Primary hypertension Unspecified essential hypertension Hyperlipidemia, unspecified hyperlipidemia type HFrEF (heart failure with reduced ejection fraction) ([facility]) Heart failure, unspecified Ischemic cardiomyopathy Other specified forms of chronic ischemic heart disease Atrial fibrillation, unspecified type ([facility]) V-tach ([facility]) Paroxysmal ventricular tachycardia ICD (implantable cardioverter-defibrillator) in place Automatic implantable cardiac defibrillator in situ Coronary artery disease involving [place] coronary artery of [place] heart without angina pectoris Hypothyroidism, unspecified type Gastroesophageal reflux disease, unspecified whether esophagitis present Preoperative examination Preoperative examination, unspecified Acute cholecystitis Acute cholecystitis * Assessment & Plan Note - Rod Salas APRN.CNP - 07/08/2024 3:27 PM EST Associated Problem(s): GERD (gastroesophageal reflux disease) Stable on Pantoprazole 40 mg BID. * Assessment & Plan Note - Rod Salas APRN.CNP - 07/08/2024 3:27 PM EST Associated Problem(s): Hypothyroidism Stable on Levothyroxine 50 mcg daily. * Assessment & Plan Note - Rod Salas APRN.CNP - 07/08/2024 3:25 PM EST Associated Problem(s): Coronary artery disease involving [place] coronary artery of [place] heart without angina pectoris CAD s/p cardiac stents in 2022. Stable on Aspirin 81 mg, Atorvastatin 80 mg, and Plavix 75 mg daily. Follows with Cardiology, patient had a pre-op evaluation with Dr. Velez today, 07/08/24. Per note, Patient has significant coronary disease. However, reassuringly -his recent PET stress does not reveal any ischemia. His last percutaneous intervention was greater than 1 year ago. He does not have any active ischemia symptoms. A cholescystecptomy is otherwise a low cardiac risk surgery and I would estimate his risk of ACS to be still less than 1% (NSQIP). Ok to hold antiplatelet agents 1 week prior to surgery and restart as soon as safe from a bleeding perspective. * Assessment & Plan Note - Rod Salas APRN.CNP - 07/08/2024 3:24 PM EST Associated Problem(s): ICD (implantable cardioverter-defibrillator) in place Type of device/[employer]: [employer], cardiac resynchronization therapy - defibrillator Last interrogation: 05/04/24 Pacemaker dependency: No Surgical site: Abdomen Location of CIED generator in body: left upper chest wall Follows with Cardiology, patient had a pre-op evaluation with Dr. Velez today, 07/08/24. Per note, Risk of arrhythmias While patient has a history of ventricular tachycardia, this is always been slow VT-likely scar mediated. This has not resulted in hemodynamic compromise for him. This has been going on for years. Hewill certainly be at risk for this perioperatively. No obvious procedure to meaningfully reduce this risk preoperatively. I would recommend continuing his antiarrhythmic medications-amiodarone/mexiletine/carvedilol. If ICD disabled for surgery, please have defib pads placed/available intraoperatively. * Assessment & Plan Note - Rod Salas APRN.CNP - 07/08/2024 3:21 PM EST Associated Problem(s): V-tach (HCC) Hx of V-tach. Follows with Cardiology, patient had a pre-op evaluation with Dr. Velez today, 07/08/24. Per note, Risk of arrhythmias While patient has a history of ventricular tachycardia, this is always been slow VT-likely scar mediated. This has not resulted in hemodynamic compromise for him. This has been going on for years. Hewill certainly be at risk for this perioperatively. No obvious procedure to meaningfully reduce this risk preoperatively. I would recommend continuing his antiarrhythmic medications-amiodarone/mexiletine/carvedilol. If ICD disabled for surgery, please have defib pads placed/available intraoperatively. * Assessment & Plan Note - Rod Salas APRN.CNP - 07/08/2024 3:20 PM EST Associated Problem(s): A-fib (HCC) Stable on Amiodarone 200 mg daily and Carvedilol 12.5 mg BID. ECG 07/08/24 showed AV dual-paced rhythm. * Assessment & Plan Note - Rod Salas APRN.CNP - 07/08/2024 3:18 PM EST Associated Problem(s): Ischemic cardiomyopathy Echo 05/02/24 showed - The left ventricle is mildly dilated. Left ventricular systolic function is severely decreased. EF = 20 5% (visual est.) Grade I left ventricular diastolic dysfunction. S/p pacemaker/defibrillator placement. * Assessment & Plan Note - Rod Salas APRN.CNP - 07/08/2024 3:18 PM EST Associated Problem(s): HFrEF (heart failure with reduced ejection fraction) (HCC) Stable on Bumetanide daily, Carvedilol BID, Entresto BID, Jardiance 10 mg daily. Echo 05/02/24 showed - The left ventricle is mildly dilated. Left ventricular systolic function is severely decreased. EF = 20 5% (visual est.) Grade I left ventricular diastolic dysfunction. Follows with Cardiology, patient had a pre-op evaluation with Dr. Velez today, 07/08/24. Per note, Risk of Decompensated Heart Failure Given his reduced EF and history of ischemic cardiomyopathy, patient will be at a risk for volume overload perioperatively. Would be judicious with any fluid administration. Patient may benefit from short hospital admission (~ 48 hours) after the surgery. Ok to hold Entresto/Emplagliflozin perioperatively and restart as soon as feasible after surgery. * Assessment & Plan Note - Rod Salas APRN.CNP - 07/08/2024 3:15 PM EST Associated Problem(s): HLD (hyperlipidemia) Stable on Atorvastatin 80 mg daily. * Assessment & Plan Note - Rod Salas APRN.CNP - 07/08/2024 3:15 PM EST Associated Problem(s): HTN (hypertension) Stable on Carvedilol 12.5 mg BID. BP today 102/48. * Assessment & Plan Note - Rod Salas APRN.CNP - 07/08/2024 3:14 PM EST Associated Problem(s): History of TIA (transient ischemic attack) Patient states hx of mini-strokes several years ago. No residual. [facility] Diagnosis Choledocholithiasis with acute cholecystitis- Primary Calculus of bile duct with acute cholecystitis without mention of obstruction Preoperative examination- Primary Preoperative examination, unspecified Acute cholecystitis History of TIA (transient ischemic attack) Transient ischemic attack (TIA), and cerebral infarction without residual deficits Primary hypertension Unspecified essential hypertension Hyperlipidemia, unspecified hyperlipidemia type HFrEF (heart failure with reduced ejection fraction) (HCC) Heart failure, unspecified Ischemic cardiomyopathy Other specified forms of chronic ischemic heart disease Atrial fibrillation, unspecified type (HCC) V-tach (HCC) Paroxysmal ventricular tachycardia ICD (implantable cardioverter-defibrillator) in place Automatic implantable cardiac defibrillator in situ Coronary artery disease involving [place] coronary artery of [place] heart without angina pectoris Hypothyroidism, unspecified type Gastroesophageal reflux disease, unspecified whether esophagitis present Preoperative examination Preoperative examination, unspecified Acute cholecystitis Acute cholecystitis documented in this encounter [facility] note* Diagnosis Preoperative examination- Primary Preoperative examination, unspecified Acute cholecystitis History of TIA (transient ischemic attack) Transient ischemic attack (TIA), and cerebral infarction without residual deficits Primary hypertension Unspecified essential hypertension Hyperlipidemia, unspecified hyperlipidemia type HFrEF (heart failure with reduced ejection fraction) (HCC) Heart failure, unspecified Ischemic cardiomyopathy Other specified forms of chronic ischemic heart disease Atrial fibrillation, unspecified type (HCC) V-tach (HCC) Paroxysmal ventricular tachycardia ICD (implantable cardioverter-defibrillator) in place Automatic implantable cardiac defibrillator in situ Coronary artery disease involving [place] coronary artery of [place] heart without angina pectoris Hypothyroidism, unspecified type Gastroesophageal reflux disease, unspecified whether esophagitis present VT (ventricular tachycardia) (HCC)- Primary Paroxysmal ventricular tachycardia [facility] Diagnosis S/P cholecystectomy- Primary Other acquired absence of organ Choledocholithiasis Calculus of bile duct without mention of cholecystitis or obstruction [facility]* Diagnosis History of cholecystectomy- Primary Other acquired absence of organ Choledocholithiasis Calculus of bile duct without mention of cholecystitis or obstruction Chronic systolic congestive heart failure (CMS-HCC) Coronary artery disease involving [place] coronary artery of [place] heart without angina pectoris documented [facility]* Diagnosis S/P cholecystectomy- Primary Other acquired absence of organ Chronic systolic congestive heart failure ([facility]) Bradycardia Other specified cardiac dysrhythmias Diarrhea, unspecified type Coronary artery disease involving [place] coronary artery of [place] heart without angina pectoris documented [facility]* Diagnosis Paroxysmal atrial fibrillation (Multi) Atrial fibrillation High risk medication use Cardiomyopathy, ischemic Other specified forms of chronic ischemic heart disease Coronary artery disease involving [place] coronary artery of [place] heart without angina pectoris Congestive heart failure, unspecified HF chronicity, unspecified heart failure type AICD (automatic cardioverter/defibrillator) present Automatic implantable cardiac defibrillator in situ Essential hypertension Unspecified essential hypertension Mixed hyperlipidemia BMI 29.0-29.9,adult documented in this encounter [facility] Work Phone: Evaluation note* Diagnosis Medicare annual wellness visit, subsequent- Primary Screening for depression [facility]* Diagnosis Nausea- Primary Nausea alone Chronic congestive heart failure, unspecified heart failure type ([facility]) documented [facility] N[facility]ative* He is referred here by Dr. Quiles for electrophysiology evaluation of device * The patient and are here to discuss upgrade of device. * He reports that he had his first device deployed in the . There was a problem with the lead and he was sent to the [facility]. The lead was extracted and new lead was occluded. His currentlead was implanted in 2003. His current device was implanted in 2009 * He has had recurrent ER visits and hospitalizations for acute decompensated heart failure. Most recently is acute on chronic heart for hospitalization was 03/26/2023. With diuresis he felt. better. * The patient denies any lightheadedness, near syncope, syncope, palpitation, chest discomfort, orthopnea, paroxysmal nocturnal dyspnea, or edema now. * The device site is well-healed and unchanged. The patient denies any redness, swelling, or drainageof the site. * See ROS, PMH, FMH, and surgical history for details. * Personal review of ECG and cardiac data reviewed * Outside records: * [facility] hospitalization November 2022. Acute decompensated heart failure * Echocardiogram November 2022. LVEF 15 to 20%. Severe dilation of left atrium. Mild to moderate mitral vegetation. Mild TR. Pulmonary hypertension with RVSP 5060 mmHg. * Device Check: [facility] device clinic. [employer] 8102 telogen ICD. 0 VT.. 45% ventricular pacing. Estimate longevity device 2 years. * ECG: Today. Normal sinus rhythm. Left bundle branch block. QRS duration 150 ms. Left axis deviation. QTc 409 ms. * Second ECG performed due to shortness of breath. Atrial fibrillation. Appropriate pacing. Left axisdeviation. Paced QT interval 600 ms. Paced QRS 230 ms * See signed ECG and check /Paceart. * Imp / Plan * Nonischemic cardiomyopathy. LVEF 15 to 20%. QRS 150 ms of left bundle branch block at baseline and 230 ms with ventricular pacing. Repeat hospitalizations for acute on chronic heart failure. Most recent hospitalization earlier this month. NYHA IIIc heart failure. Also with underlying sinus bradycardia and paroxysmal atrial fibrillation. Plan for upgrade to atrial biventricular defibrillator. Model of device and heart reviewed with patient and family. All questions answered. Consented. * Preoperative cardiac evaluation. Shared decision making. [employer] decision tool used. * Chronic systolic heart failure. NYHA IIIc heart failure. Reviewed medications. Continue medications. * Mild to moderate coronary disease by remote catheterization. No ischemia by last stress test. * Paroxysmal atrial fibrillation. Currently in rhythm. Previously received amiodarone. * Acute on chronic kidney insufficiency. Follows with primary care physician * History of sustained ventricular tachycardia. Reviewed medications. On amiodarone. Lab work as per [place] office. * Hyperlipidemia. Chronic. Stable. Reviewed blood work. * Hypertension. Chronic. Stable. Reviewed medications. * Overweight. * Caffeine use. Discussed behavior modification and decrease caffeine intake to 1 caffeinated beverage daily. * AHA recommendations for exercise, diet, and behavioral modification reviewed with pt. * The patient and I and discussed the mechanism of arrhythmia, congestive heart failure, heart model, types of defibrillator, upgrade to biventricular defibrillator, i preoperative cardiac evaluation, ndications for and types of medications, discussion if and what medication refills needed, treatment options, risks, benefits, and imponderables. [place] [employer] lifestyle changes and behavioral modification discussed. All questions answered in detail. Counseling over 50% visit regarding above. Patient appreciative of care. * Depression screen * Normal /Abnormal depression screening noted and reviewed with patient. Referred to primary physician for follow- up. * Grammar * Please excuse grammatical or dictation errors as software dictation application being used. -[facility]Melissa [address] DO Work Phone: History of Present illness Narrative* He is here for electrophysiology follow-up. * The patient and present to review his device. * He denies any arrhythmia symptoms. * He feels much better after stent placement. * The patient denies any lightheadedness, near syncope, syncope, palpitation, chest discomfort, orthopnea, paroxysmal nocturnal dyspnea, or edema now. * His activity tolerance has increased. * The device site continues to be well-healed and unchanged. The patient denies any redness, swelling, or drainage of the site. * See ROS, PMH, FMH, and surgical history for details. * Personal review of ECG and cardiac data reviewed * Outside records: * Cardiac catheterization March [address] Archer for left main and proximal LAD stenting. * OV with Dr. Quiles December 2022 * [facility] hospitalization November 2022. Acute decompensated heart failure * Echocardiogram November 2022. LVEF 15 to 20%. Severe dilation of left atrium. Mild to moderate mitral vegetation. Mild TR. Pulmonary hypertension with RVSP 5060 mmHg. * Device Check: Today.. [employer] 8 G247 BiV ICD. Recurrent VT VF requiring ATP and or shock.10 NSVT. 90% atrial pacing. 97% biventricular pacing. Estimate longevity device 11 years. * ECG: Today. Appropriate sensing and biventricular pacing. Normal axis. Corrected QT interval 500. * Chest x-ray pending * See signed ECG and check /Paceart. * Imp / Plan * Nonischemic cardiomyopathy. LVEF 15 to 20%. QRS 150 ms of left bundle branch block at baseline and 230 ms with ventricular pacing. Repeat hospitalizations for acute on chronic heart failure. Most recent hospitalization earlier this month. NYHA IIIc heart failure. Status post upgrade of defibrillator to biventricular defibrillator. Current device is [employer] G24 7 biventricular defibrillator. Reviewed device check in detail. Discussed with patient and family. Normal device function. Ordered device checks. Discontinue arm binder * Chronic systolic heart failure. NYHA IIIc heart failure. Reviewed medications. Continue medications. * CAD. Chronic. Recent stents for VT. Discussed with Dr. Archer regarding stent of left main and LAD. * Paroxysmal atrial fibrillation. No recent episodes of atrial fibrillation. Monitor burden of A-fib by device. * Acute on chronic kidney insufficiency. Follows with primary care physician * Current sustained ventricular tachycardia and ventricular fibrillation. Reviewed medications. Will increase amiodarone to 200 mg daily. Follow-up in [place] office for amiodarone screening laboratories. Prescription sent. * Hyperlipidemia. Chronic. Stable. Reviewed last blood work. * Hypertension. Chronic. Stable. Reviewed medications. * Overweight. * Caffeine use. Discussed behavior modification and decrease caffeine intake to 1 caffeinated beverage daily. * AHA recommendations for exercise, diet, and behavioral modification reviewed with pt. * The patient and I and discussed the mechanism of arrhythmia, sustained ventricular tachycardia, amiodarone, potential for consideration for VT ablation in the future if significant recurrences of A-fib and if modification of scar needed catheterization, congestive heart failure, biventricular d efibrillator, indication for and types of medications, discussion if and what medication refills needed, treatment options, risks, benefits, and imponderables. [place] [employer] lifestyle changes and behavioral modification discussed. All questions answered in detail. Counseling over 50% visit regarding above. Patient appreciative of care. * Depression screen * Normal /Abnormal depression screening noted and reviewed with patient. Referred to primary physician for follow- up. * Grammar * Please excuse grammatical or dictation errors as software dictation application being used. [facility] [address] DO Work Phone: Hospital course Narrative No data available for this section [facility] Discharge instructionsAmbulatory Orders* Initiate Home Health Time Frame: 1 Day, Location: Determined By Patient * Initiate Home Health Time Frame: 1 Day, Location: Determined By Patient Additional Instructions Home health to manage: - PT/OT to eval and treat - Monitor VS routine - Cardiac assessments - Dx. Ventricular tachycardia, CHF - CHF assessments/education - Fall precautions - high fall risk - Routine skin assessments/care DISCHARGE INSTRUCTIONS FOR ANGIOPLASTY/CORONARY/PERIPHERAL/STENT IMPLANT FOR ADULT ANTICOAGULATION -Since the greatest risk of a blood clot forming with the stent occurs in the first 2-3 weeks after implantation, you will need to take anticoagulants for at least 12-18 months. ANTICOAGULATION MEDICATION Aspirin 81mg once a day, Clopidogrel (Plavix) 75mg one tablet STATIN MEDICATION Atorvastatin (Lipitor) 80 mg Drug-Eluting Stent (BOSSMAN) DO NOT discontinue Plavix/Aspirin during the first few months regardless of what you are advised by your family doctor or pharmacist, without first calling the archives technician who implanted the stent. If you require pain relief during this time, please take only ACETAMINOPHEN (TYLENOL)- NO additional aspirin or ibuprofen. DISCHARGE ACTIVITIES ARE FOLLOWS: First week after discharge: -Take it easy at home, no strenuous activity. -Do not lift or pull objects over 10-15 pounds, including children, and groceries for four weeks. If puncture site is at wrist do NOT lift more than three pounds for three days. - May walk up stairs. -May shower. -No excessive scrubbing of the affected site (groin). -May ride in car. -May resume sexual intercourse after 1-2 weeks. -No MRI for 12 days. -May drive in 4-7 days. -If puncture site is at the wrist do not manipulate the wrist for 24 hours, and no soaking wrist for three days. Second Week: -May take a bath -May start walking 3 times a week for 15-20 minutes at a leisurely pace. You should be able to carry on a conversation comfortably without feeling winded. -No strenuous activity as in jogging, running, weight lifting, stair steppers, etc. until the archives technician approves these activities. Check with the archives technician on your first follow-up visit. CALL YOUR PHYSICIAN at [phone]: -If bleeding should occur from the catheter insertion site- apply pressure to the site then immediately call us. -Report any fever, redness, drainage, increased swelling, or firmness at the catheter insertion site. Some bruising or slight swelling may be present at the time of discharge. -Should arm or leg become cold, numb, white, or blue, contact the archives technician immediately. -IF you should experience episodes of angina, e.g. chest discomfort, heaviness, tightness, pressure burning with or without radiation to the neck, jaw, arms or back- use 1 Nitrostat tablet under your tongue every 5-10 minutes and up to three tablets. IF NO RELIEF, CALL 911 or GO TO THE NEAREST EMERGENCY ROOM. -Please notify our office if you have recurrent angina. -[Cardiac Rehab Education Provided. Participation in the Cardiopulmonary Rehabilitation program is recommended. Please call Central Scheduling at [phone] to schedule your appointment.] The attending archives technician or [facility] nurse clinician should provide you with specific instructions regarding activity, diet, medications, and further follow up for you. Follow the medication instructions provided on your discharge. If the dosages and instructions on this sheet differ from the dosage and instructions on the bottle, follow the instructions on the bottle. [facility] is not responsible for incorrect prescription information provided by the patient during their visit. Do not stop your medications without consulting your health care provider. Please take the list with you to your next doctor's appointment.[facility] Work Phone: Hospital Discharge instructions Additional Instructions Follow-up with your primary care doctor Return to ED if develop worsening symptoms or concernsSum[facility] Work Phone: Hospital Discharge instructions Additional Instructions Follow-up with your primary care doctor and your archives technician on Thursday Take your Coreg as prescribed Take the amiodarone 400mg twice a day for 1 week and then back to your 200mg in the morning regimen Return to the follow-up worsening symptoms or concernsSum[facility] Work Phone: Hospital Discharge instructionsAmbulatory Orders* Referral to Speech/PT/OT (PT/OT/SP) Location: None [facility] Work Phone: Instructions* Attachments The following attachments cannot be sent through Care Everywhere. * Dysphagia ([place]) * Esophagram ([place]) * Acid Reflux and GERD in Adults Discharge Instructions ([place]) documented in this encounterProAirbnb SystemInstructionsNot on file documented in this encounterProAirbnb SystemInstructionsNot on file documented in this encounterProAirbnb SystemInstructionsNot on file documented in this encounterProAirbnb SystemInstructionsNot on file documented in this encounterProAirbnb SystemInstructionsNot on file documented in this encounterProAirbnb SystemInstructionsNot on file documented in this encounterProAirbnb SystemInstructionsNot on file documented in this encounterProAirbnb SystemInstructionsNot on file documented in this encounterProMedica Health SystemInstructionsNot on file documented in this encounterProMedica Health SystemInstructionsNot on file documented in this encounterProMedica Health SystemInstructionsNot on file documented in this encounterProMedica Health SystemInstructionsNot on file documented in this encounterProMedica Health SystemInstructionsNot on file documented in this encounterProMedica Health SystemInstructionsNot on file documented in this encounterProMedica Health SystemInstructionsNot on file documented in this encounterProMedica Health SystemInstructionsNot on file documented in this encounterProMedica Health SystemInstructionsNot on file documented in this encounterProMedica Health SystemInstructionsNot on file documented in this encounterProMedica Health SystemInstructionsNot on file documented in this encounterProMedica Health SystemInstructionsNot on file documented in this encounterProMedica Health SystemProgress note No data available for this section [facility] Reason for referral (narrative)* Consultation (Routine) - Authorized Specialty Diagnoses / Procedures Referred By Jann t Referred To Contact Cardiology Diagnoses Congestive heart failure, unspecified HF chronicity, unspecified heart failure type (CMS/HCC) Cardiomyopathy, ischemic Procedures Follow Up In Cardiology Ranjan Quiles MD [address] [place] [address] [facility], [address] [address] Referral ID Status Reason Start Date Expiration Date V isits Requested Visits Authorized [id number] Authorized 05/26/2023 05/25/2024 1 1 * Medications - Pending Review Specialty Diagnoses / Procedures Referred By Jann jarvis Referred To Contact Diagnoses Congestive heart failure, unspecified HF chronicity, unspecified heart failure type (CMS/HCC) Cardiomyopathy, ischemic Ranjan Quiles MD [address], [address] [address] Referral ID Status Reason Start Date Expiration Date V isits Requested Visits Authorized [id number] Pending Review 1 1 [facility] Work Phone: Reason for referral (narrative)* Consultation (Routine) - Pending Review Specialty Diagnoses / Procedures Referred By Contac t Referred To Contact Gastroenterology Diagnoses Esophageal motility disorder Lois Nguyễn APRN-COMMUNITY OUTREACH DIRECTOR [address] [place] [address] Darek Kelley MD [address] , [facility] [address] [place] [address] Referral ID Status Reason Start Date Expiration Date Visits Requested Visits Authorized [id number] Pending Review Specialty Services Required 09/18/2023 09/17/2024 1 1 [facility] ([facility] Consultation (Routine) - Authorized Specialty Diagnoses / Procedures Referred By Contac t Referred To Contact Cardiology Diagnoses Congestive heart failure, unspecified HF chronicity, unspecified heart failure type (CMS/HCC) Procedures Follow Up In Cardiology Ranjan Quiles MD [address] [facility] 2, [address] [address] Ranjan Quiles MD [address] [facility] 2, [facility] [address] [place] [address] Referral ID Status Reason Start Date Expiration Date V isits Requested Visits Authorized [id number] Authorized 10/01/2023 09/30/2024 1 1 * Cardiovascular (Routine) - Authorized Specialty Diagnoses / Procedures Referred By Contac t Referred To Contact Diagnoses Atrial fibrillation, unspecified type (CMS/HCC) Procedures ECG 12 Lead Ranjan Quiles MD [address] [facility], [facility] [address] [place] [address] Referral ID Status Reason Start Date Expiration Date V isits Requested Visits Authorized [id number] Authorized 10/01/2023 09/30/2024 1 1 [facility] Work Phone: reason for referral (narrative)* Consultation (Routine) - Authorized Specialty Diagnoses / Procedures Referred By Contac t Referred To Contact Cardiac Rehabilitation Diagnoses Congestive heart failure, unspecified HF chronicity, unspecified heart failure type (Multi) Ranjan Quiles MD [address] [facility] 2, [place] [address] [place] [address] Referral ID Status Reason Start Date Expiration Date Visits Requested Visits Authorized [id number] Authorized Specialty Services Required 12/25/2023 12/24/2024 1 1 * Cardiovascular (Routine) - Authorized Specialty Diagnoses / Procedures Referred By Contac t Referred To Contact Diagnoses Atrial fibrillation, unspecified type (Multi) Procedures ECG 12 Lead aRnjan Quiles MD [address] [facility] 2, [address] [address] Referral ID Status Reason Start Date Expiration Date V isits Requested Visits Authorized [id number] Authorized 12/25/2023 12/24/2024 1 1 [facility] Work Phone: reason for referral (narrative)* Outpatient Procedure (Routine) - Authorized Specialty Diagnoses / Procedures Referred By Contac t Referred To Contact [facility] Diagnoses Coronary artery disease, unspecified vessel or lesion type, unspecified whether angina present, unspecified whether [place] or transplanted heart Procedures ECG COMPLETE ECG ROUTINE ECG W/LEAST 12 LDS W/I&R Jacobo Velez MD [address] [place] [address] [facility] [place] [address] Referral ID Status Reason Start Date Expiration Date Visits Requested Visits Authorized [id number] Authorized Auto-Generat ed Referral 04/15/2024 04/15/2025 1 1 [facility] for referral (narrative)* Outpatient Procedure (Routine) - Authorized Specialty Diagnoses / Procedures Referred By Contac t Referred To Contact DIGESTIVE DISEASE [facility]TI Diagnoses Choledocholithiasis Procedures ERCP ERCP DX COLLECTION SPECIMEN BRUSHING/WASHING Ranjan Bryant MD [address] [place] [address] [place] [address] Referral ID Status Reason Start Date Expiration Date Visits Requested Visits Authorized [id number] Authorized Auto-Generat ed Referral 4 06/14/2025 1 1 [facility] for referral (narrative)* Outpatient Procedure (Routine) - Authorized Specialty Diagnoses / Procedures Referred By Contac t Referred To Contact [facility] Diagnoses VT (ventricular tachycardia) (HCC) Procedures ECG COMPLETE ECG ROUTINE ECG W/LEAST 12 LDS W/I&R Kady Contreras MD [address] [place], [place] [address] [place] [address] Referral ID Status Reason Start Date Expiration Date Visits Requested Visits Authorized [id number] Authorized Auto-Generat ed Referral 4 07/18/2025 1 1 [facility] Summary Purpose Family History Unknown Family Member Name Dates Details Family history of acute myoc ardial infarction: Father(V17.3, Z82.49) Status:Active Unknown Family Member Name Dates Details Family history of acute myoc ardial infarction: Father(V17.3, Z82.49) Status:Active Unknown Family Member Name Dates Details Family history of acute myoc ardial infarction: Father(V17.3, Z82.49) Status:Active Unknown Family Member Name Dates Details Family history of acute myoc ardial infarction: Father(V17.3, Z82.49) Status:Active Unknown Family Member Name Dates Details Family history of acute myoc ardial infarction: Father(V17.3, Z82.49) Status:Active Unknown Family Member Name Dates Details Family history of acute myoc ardial infarction: Father(V17.3, Z82.49) Status:Active Unknown Family Member Name Dates Details Family history of acute myoc ardial infarction: Father(V17.3, Z82.49) Status:Active Unknown Family Member Name Dates Details Family history of acute myoc ardial infarction: Father(V17.3, Z82.49) Status:Active Unknown Family Member Name Dates Details Family history of acute myoc ardial infarction: Father(V17.3, Z82.49) Status:Active Unknown Family Member Name Dates Details Family history of acute myoc ardial infarction: Father(V17.3, Z82.49) Status:Active Unknown Family Member Name Dates Details Family history of acute myoc ardial infarction: Father(V17.3, Z82.49) Status:Active Unknown Family Member Name Dates Details Family history of acute myoc ardial infarction: Father(V17.3, Z82.49) Status:Active Unknown Family Member Name Dates Details Family history of acute myoc ardial infarction: Father(V17.3, Z82.49) Status:Active Unknown Family Member Name Dates Details Family history of acute myoc ardial infarction: Father(V17.3, Z82.49) Status:Active Unknown Family Member Name Dates Details Family history of acute myoc ardial infarction: Father(V17.3, Z82.49) Status:Active Unknown Family Member Name Dates Details Family history of acute myoc ardial infarction: Father(V17.3, Z82.49) Status:Active Unknown Family Member Name Dates Details Family history of acute myoc ardial infarction: Father(V17.3, Z82.49) Status:Active Unknown Family Member Name Dates Details Family history of acute myoc ardial infarction: Father(V17.3, Z82.49) Status:Active Unknown Family Member Name Dates Details Family history of acute myoc ardial infarction: Father(V17.3, Z82.49) Status:Active Unknown Family Member Name Dates Details Family history of acute myoc ardial infarction: Father(V17.3, Z82.49) Status:Active Unknown Family Member Name Dates Details Family history of acute myoc ardial infarction: Father(V17.3, Z82.49) Status:Active Relationship Condition Age at Onset Recorded Date/T rajesh father Myocardial infarction Unknown Not Specified Hypertension Unknown brother History of heart surgery Unknown brother Heart disease Unknown sister Hypertension Unknown Disorder of thyroid Unknown Unknown Family Member Name Dates Details Family history of acute myoc ardial infarction: Father(V17.3, Z82.49) Status:Active Unknown Family Member Name Dates Details Family history of acute myoc ardial infarction: Father(V17.3, Z82.49) Status:Active Unknown Family Member Name Dates Details Family history of acute myoc ardial infarction: Father(V17.3, Z82.49) Status:Active Unknown Family Member Name Dates Details Family history of acute myoc ardial infarction: Father(V17.3, Z82.49) Status:Active Unknown Family Member Name Dates Details Family history of acute myoc ardial infarction: Father(V17.3, Z82.49) Status:Active Unknown Family Member Name Dates Details Family history of acute myoc ardial infarction: Father(V17.3, Z82.49) Status:Active Unknown Family Member Name Dates Details Family history of acute myoc ardial infarction: Father(V17.3, Z82.49) Status:Active Unknown Family Member Name Dates Details Family history of acute myoc ardial infarction: Father(V17.3, Z82.49) Status:Active Unknown Family Member Name Dates Details Family history of acute myoc ardial infarction: Father(V17.3, Z82.49) Status:Active Unknown Family Member Name Dates Details Family history of acute myoc ardial infarction: Father(V17.3, Z82.49) Status:Active Unknown Family Member Name Dates Details Family history of acute myoc ardial infarction: Father(V17.3, Z82.49) Status:Active Unknown Family Member Name Dates Details Family history of acute myoc ardial infarction: Father(V17.3, Z82.49) Status:Active Unknown Family Member Name Dates Details Family history of acute myoc ardial infarction: Father(V17.3, Z82.49) Status:Active Relationship Condition Age at Onset Recorded Date/T rajesh father Myocardial infarction Unknown Not Specified Hypertension Unknown brother History of heart surgery Unknown brother Heart disease Unknown sister Hypertension Unknown Disorder of thyroid Unknown brother Hypertension Unknown Heart disease Unknown father Heart disease Unknown Unknown Not Specified Unknown Relationship Condition Age at Onset Recorded Date/T rajesh father Myocardial infarction Unknown mother Hypertension Unknown brother History of heart surgery Unknown brother Heart disease Unknown sister Hypertension Unknown Disorder of thyroid Unknown brother Hypertension Unknown Heart disease Unknown father Heart disease Unknown Unknown mother Unknown Advance Directives Advance Directive Response Recorded Date/ Time Advance Directives No May 17, 2017 10:05am Advance Directive Response Recorded Date/ Time Advance Directives No May 17, 2017 9:05am Documents on File Type Date Recorded 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 Advance Directive(s) 05/03/2024 2:49 PM Advance Directive(s) 05/03/2024 12:37 PM Date Activated Date Inactivated Comments 05/01/2024 12:32 PM Question Answer Comments Full Code Order Discussed With: Patient Documents on File Type Date Recorded 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 Advance Directive(s) 05/03/2024 2:49 PM Advance Directive(s) 05/03/2024 12:37 PM Date Activated Date Inactivated Comments 05/01/2024 12:32 PM Question Answer Comments Full Code Order Discussed With: Patient Date Activated Date Inactivated Comments 05/01/2024 12:32 PM 05/10/2024 8:55 PM Date Activated Date Inactivated Comments 05/01/2024 12:32 PM 05/10/2024 8:55 PM Date Activated Date Inactivated Comments 07/13/2024 12:11 PM Date Activated Date Inactivated Comments 05/01/2024 12:32 PM 05/10/2024 8:55 PM Question Answer Comments Full Code Order Discussed With: Patient Chief Complaint SHAWNA HERNANDES is being seen for a 6 month follow-up of.* SHAWNA HERNANDES is being seen for a 6 month follow-up of. * Patient is in the office for follow-up for the problems noted below. His main complaint is dyspnea on exertion that has progressed since last visit. He was noted to be hypertensive and has gained 13 pounds with mild lower extremity edema while taking Bumex 1 mg daily. He has no AICD discharges and denies any angina and has been compliant medical therapy. His device check shows no concern. His labs have been followed periodically and his renal function has not progressed. His lung sounds normal his cardiac exam was normal and he has 1+ bilateral lower extremity edema * ASSESSMENT AND PLAN: * 1. Ischemic cardiomyopathy stage C, functional class II. Ejection fraction 24% by nuclear imaging testing March 2018 He will remain on Entresto and carvedilol along with the Aldactone as prescribed.He utilizes Bumex as well.due to hypertension will maximize Coreg at 25 mg twice daily. I warned the patient that potentially the next few days he may feel more tired due to higher dose of Coreg but that should subside. He will come back in few weeks for blood pressure check and to ensure improvement * 2. Automated implantable cardioverter defibrillator for prevention purposes, being monitored. No recent discharge from the device * 3. Hyperlipidemia, on statin therapy. His lipid Profile has been under control. * 4. High-risk medications with amiodarone, which will be monitored closely. * 5. History of hypertension, presently uncontrolled. Coreg dose was increased * 6. Remote history of atrial fibrillation with amiodarone now on board to reduce the chances of thisbecoming affective. * 8. Obesity. Encouraged the patient to drop his weight further with diet and exercise. He gained 13 pounds since last visit * 9. March 2018 nuclear stress test revealed no indication of myocardial ischemia. But with extensive myocardial infarction * 10. Stage III chronic kidney disease being monitored * 11. 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 * Patient is in the office for hypertension management. Since he was last seen in the office and increase of the Coreg up to 25 mg twice daily his blood pressure is under control. He has mild fatigue which is expected. No further changes are needed and the patient scheduled follow-up with me in the office in few months [place] [facility] [place] in [place]* Pt sent message via the portal. * Subject: Prescription renewal * Body: Please send a new prescription for Spironolactone 25 mg to [facility]. The present one has . Thank you. * To Dr. Ranjan Quiles MD to sign * SHAWNA HERNANDES is being seen for a 6 month follow-up of hypertension. * Patient is in the office for follow-up for the problems noted below. Since he was last seen in the office 6 months ago his pressure has become under very good control by increasing the Coreg. His AICD interrogation has demonstrated no abnormalities in his amiodarone surveillance testing was reviewed with him with no concerns noted. He does have stage III chronic kidney disease which has not been progressive. He is active and is able to function around his house but he takes breaks every hour when he works in the yard. His weight is down several pounds from last visit but more work is needed on his weight. His examination was unremarkable and his EKG today revealed sinus rhythm with IVCD. * ASSESSMENT AND PLAN: * 1. Ischemic cardiomyopathy stage C, functional class II. Ejection fraction 24% by nuclear imaging testing March 2018, his cardiac catheterization 1995 revealed 50% LAD stenosis with no prior interventions.. He will remain on Entresto and carvedilol along with the Aldactone as prescribed. * 2. Automated implantable cardioverter defibrillator for prevention purposes, being monitored. No recent discharge from the device * 3. Hyperlipidemia, on statin therapy. His lipid Profile has been under control. * 4. High-risk medications with amiodarone, which will be monitored closely. * 5. History of hypertension, presently controlled. * 6. Remote history of atrial fibrillation with amiodarone now on board to reduce the chances of thisbecoming affective. * 7. Obesity. Encouraged the patient to drop his weight further with diet and exercise. He gained 13 pounds since last visit * 8. March 2018 nuclear stress test revealed no indication of myocardial ischemia. But with extensive myocardial infarction * 9. Stage III chronic kidney disease being monitored * Ranjan Quiles MD, [facility] * Enclosed you will find an order form to have your testing completed at a facility of your choice. It is necessary for you to have lab work. These tests are needed if you are on one of the following medications: Cordarone, Pacerone, or Amiodarone. * If you are unable to have these test done please contact our office at [phone] and press option #4 so that we may assist you in the problems. * Thank you for your compliance with this testing. * The Staff * [facility] * Please have done March [place] [facility] [place] due in patient visit states needs a device upgrade* SHAWNA HERNANDES is being seen for a 2 week follow-up of BP/OV, Entresto adjustment. * Patient is in the office accompanied by his after recent discharge from the hospital for decompensated heart failure and we adjusted his heart failure therapy and reduce the amount of both Coregand Entresto. He is doing well and scheduled to have upgrade of his AICD to biventricular device on17 Dec 2022 at [facility] with Dr. Ding. He has occasional dizzinesswhich is positional due to soft blood pressure readings. His systolic blood pressure remains less than 100 mmHg. Advised patient to call me back from home with the exact amount of Entresto and Coreg he is on, no change in medical therapy will be made at this time. We cannot titrate his heart failure therapy at the present time. * Enclosed you will find an order form to have your testing completed at a facility of your choice. It is necessary for you to have lab work. These tests are needed if you are on one of the following medications: Cordarone, Pacerone, or Amiodarone. * If you are unable to have these test done please contact our office at [phone] and press option #4 so that we may assist you in the problems. * Thank you for your compliance with this testing. * The Staff * [facility] * Please have done April 2023 Patient presented today for a 6 month follow up.Patient presented today for a 6 month follow up. Chief Complaint and Reason for Visit Chief Complaint vt Chief Complaint vt I48.91;Z79.899;R97.20;N40.1 Chief Complaint See order Chief Complaint See order vt Chief Complaint See order vt See order Reason for Visit CHF (congestive hear t failure) AICD (automatic cardioverter/defibrillator) present Coronary artery disease Hyperlipidemia Hypertension Chief Complaint See order i48.91 z79.899 vt Reason for Visit CHF (congestive hear t failure) AICD (automatic cardioverter/defibrillator) present Coronary artery disease Hyperlipidemia Hypertension Chief Complaint See order i48.91 z79.899 vt Shortness of Breath Reason for Visit CHF (congestive hear t failure) AICD (automatic cardioverter/defibrillator) present Coronary artery disease Hyperlipidemia Hypertension LEA (acute kidney injury) Dizziness Elevated troponin Hypotension Chief Complaint See order i48.91 z79.899 vt Shortness of Breath Acute kidney injury Reason for Visit CHF (congestive hear t failure) AICD (automatic cardioverter/defibrillator) present Coronary artery disease Hyperlipidemia Hypertension Acute on chronic systolic heart failure, NYHA class 3 LEA (acute kidney injury) Dizziness Elevated troponin Hypotension Left bundle branch block Monomorphic ventricular tachycardia AICD (automatic cardioverter/defibrillator) present Chief Complaint i48.91 z79.899 vt Shortness of Breath CHF N17.9 I48.91 Reason for Visit Acute on chronic sys tolic heart failure, NYHA class 3 LEA (acute kidney injury) Dizziness Elevated troponin Hypotension Left bundle branch block Monomorphic ventricular tachycardia AICD (automatic cardioverter/defibrillator) present Chief Complaint heart issues,high he art rate Reason for Visit Chronic HFrEF (heart failure with reduced ejection fraction) Chronic kidney disease, stage 3 Elevated troponin Hypotension Tachyarrhythmia Ventricular tachycardia Wide-complex tachycardia Coronary artery disease Chief Complaint heart issues,high he art rate elevated blood pressure, difibrillator went off Reason for Visit Chronic HFrEF (heart failure with reduced ejection fraction) Chronic kidney disease, stage 3 Elevated troponin Hypotension Tachyarrhythmia Ventricular tachycardia Wide-complex tachycardia Coronary artery disease Chief Complaint heart issues,high he art rate elevated blood pressure, difibrillator went off Dizzy Nausea Headache I48.91 Z79.899 Reason for Visit Chronic HFrEF (heart failure with reduced ejection fraction) Chronic kidney disease, stage 3 Elevated troponin Hypotension Tachyarrhythmia Ventricular tachycardia Wide-complex tachycardia Coronary artery disease Chief Complaint I48.91 Z79.899 R97.20 shakey Chief Complaint shakey g62.9 Chief Complaint shakey g62.9 r13.19 Chief Complaint g62.9 r13.19 r25.1 r26.81 [address]19[address] NATION ESOPHAGEAL MOBILITY DISORDER G45.9 unsteadiness,lumbar,tremor,neuropathy Dysphagia Dysphagia Reason for Visit Belching Dyspepsia Dysphagia Nausea Chief Complaint r13.19 r25.1 r26.81 w19.[address]xa g95[address] NATION ESOPHAGEAL MOBILITY DISORDER G45.9 Dysphagia Dysphagia unsteadiness,lumbar,tremor,neuropathy Defibrillator shock Reason for Visit Belching Dyspepsia Dysphagia Nausea Chief Complaint r25.1 r26.81 w19.xxx a g95.[address] NATION ESOPHAGEAL MOBILITY DISORDER G45.9 Dysphagia Dysphagia Defibrillator shock unsteadiness,lumbar,tremor,neuropathy Reason for Visit Belching Dyspepsia Dysphagia Nausea Chief Complaint Defibrillator shock unsteadiness,lumbar,tremor,neuropathy dizziness Chief Complaint Defibrillator shock unsteadiness,lumbar,tremor,neuropathy dizziness follow up Reason for Visit Belching Schatzki's ring Chief Complaint Defibrillator shock unsteadiness,lumbar,tremor,neuropathy dizziness follow up Reason for Visit Belching Schatzki's ring Cervical back pain with evidence of disc disease Compression fracture of lumbar vertebra Compression fracture of thoracic vertebra Lumbar back pain Chief Complaint Defibrillator shock unsteadiness,lumbar,tremor,neuropathy dizziness follow up m54.50 m54.2 Reason for Visit Belching Schatzki's ring Cervical back pain with evidence of disc disease Compression fracture of lumbar vertebra Compression fracture of thoracic vertebra Lumbar back pain Chief Complaint unsteadiness,lumbar, tremor,neuropathy dizziness follow up m54.50 m54.2 LBP neck pain abd pain Reason for Visit Belching Schatzki's ring Cervical back pain with evidence of disc disease Compression fracture of lumbar vertebra Compression fracture of thoracic vertebra Lumbar back pain Hypotension Intractable abdominal pain Nausea Chief Complaint dizziness follow up m54.50 m54.2 LBP neck pain abd pain abd pain Reason for Visit Belching Schatzki's ring Cervical back pain with evidence of disc disease Compression fracture of lumbar vertebra Compression fracture of thoracic vertebra Lumbar back pain Cholecystitis Hypotension Intractable abdominal pain Ischemic cardiomyopathy Nausea Pulmonary hypertension Sepsis Chief Complaint dizziness follow up m54.50 m54.2 LBP neck pain abd pain abd pain Reason for Visit Belching Schatzki's ring Cervical back pain with evidence of disc disease Compression fracture of lumbar vertebra Compression fracture of thoracic vertebra Lumbar back pain Cholecystitis Hypotension Ischemic cardiomyopathy Pulmonary hypertension Sepsis Reason for Referral Specialty Diagnoses / Procedures Referred By Contac t Referred To Contact Diagnoses VT (ventricular tachycardia) (HCC) Procedures CONSULT TO ELECTROPHYSIOLOGY OFFICE/OUTPATIENT [facility] 60 MINUTES Jacobo Velez MD [address] [place] [address] Referral ID Status Reason Start Date Expiration Date Visits Requested Visits Authorized [id number] Authorized PCP Requested Referral 07/08/2024 07/08/2025 1 1 Specialty Diagnoses / Procedures Referred By Contac t Referred To Contact [facility] Procedures CARDIOVASCULAR MEDICINE OP FOLLOW UP APPT ORDER Jacobo Velez MD [address] [place] [address] [facility] [place] [address] [facility] [place] [id number] Referral ID Status Reason Start Date Expiration Date Visits Requested Visits Authorized [id number] Ref Not Required PCP Requested Referral 07/08/2024 07/08/2025 1 1 Specialty Diagnoses / Procedures Referred By Contac t Referred To Contact Diagnoses Preoperative examination Acute cholecystitis Procedures REFER TO [facility] - PREOPERATIVE OPTIMIZATION OFFICE/OUTPATIENT [facility] 60 MINUTES Escobar Givens MD [address] [place] [address] Referral ID Status Reason Start Date Expiration Date Visits Requested Visits Authorized [id number] Authorized PCP Requested Referral 06/07/2024 06/07/2025 1 1 Specialty Diagnoses / Procedures Referred By Contac t Referred To Contact Cardiology Diagnoses Coronary artery disease involving [place] coronary artery of [place] heart without angina pectoris Procedures CONSULT TO CARDIOLOGY OFFICE/OUTPATIENT [facility] 60 MINUTES Escobar Givens MD [address] [place] [address] Referral ID Status Reason Start Date Expiration Date Visits Requested Visits Authorized [id number] Authorized PCP Requested Referral 03/26/2024 03/26/2025 1 1 Specialty Diagnoses / Procedures Referred By Contac t Referred To Contact Diagnoses Esophageal dysphagia Procedures Fluoroscopy upper GI with esophagus Lois Nguyễn, LANCE CREWMEMBER-COMMUNITY OUTREACH DIRECTOR [address] [place] [address] Referral ID Status Reason Start Date Expiration Date V isits Requested Visits Authorized [id number] Pending Review 08/27/2023 08/26/2024 1 1 Additional Source Comments (unrecognized sect ion and content) No Status Records FoundNo Status Records FoundNo Status Records FoundNo Status Records FoundNo Status Records FoundNo Status Records FoundNo Status Records FoundNo Status Records FoundNo Status Records FoundNo Status Records FoundNo Status Records FoundNo Status Records FoundNo Status Records FoundNo Status Records Found INFORMATION SOURCE (unrecogn ized section and content) DATE CREATED AUTHOR 03/04/2018 [facility] DATE CREATED AUTHOR AUTHOR'S ORGANIZ ATION 10/19/2021 [facility] DATE CREATED AUTHOR AUTHOR'S ORGANIZ ATION 03/07/2022 [facility] DATE CREATED AUTHOR AUTHOR'S ORGANIZ ATION 04/02/2023 [facility] DATE CREATED AUTHOR AUTHOR'S ORGANIZ ATION 04/14/2023 [facility] DATE CREATED AUTHOR AUTHOR'S ORGANIZ ATION 06/20/2023 [facility] DATE CREATED AUTHOR AUTHOR'S ORGANIZ ATION 01/20/2024 [facility] DATE CREATED AUTHOR AUTHOR'S ORGANIZ ATION 02/17/2024 [facility] DATE CREATED AUTHOR AUTHOR'S ORGANIZ ATION 02/19/2024 [facility] DATE CREATED AUTHOR AUTHOR'S ORGANIZ ATION 04/28/2024 [facility] DATE CREATED AUTHOR AUTHOR'S ORGANIZ ATION 05/26/2024 [facility] DATE CREATED AUTHOR AUTHOR'S ORGANIZ ATION 08/17/2024 [facility] DATE CREATED AUTHOR AUTHOR'S ORGANIZ ATION 08/18/2024 [facility] DATE CREATED AUTHOR AUTHOR'S ORGANIZ ATION 09/07/2024 [facility] Care Teams (unrecognized sec tion and content) Team Status: Active Member Role Status Dates Agus Nation DO Primary Care Provider Active Team Status: Inactive Member Role Status Dates Agus Nation DO Primary Care Provider Active Start: September 03, 2024 End: September 06, 2024 Pino Rand DO Emergency Provider Active Sta rt: September 03, 2024 End: September 06, 2024 Tani Solano DO Admit Provider Active Start: September 03, 2024 End: September 06, 2024 Kalie Sweet MD Other Provider Active Start : September 03, 2024 End: September 06, 2024 Taty Mena RN Other Provider Active Star t: September 03, 2024 End: September 06, 2024 Naga Archer DO Other Provider Active Start : September 03, 2024 End: September 06, 2024 Ranjan Quiles MD Other Provider Active Start: September 03, 2024 End: September 06, 2024 Rojelio Max MD Other Provider Active Start: September 03, 2024 End: September 06, 2024 Kamilla Bradley MD Other Provider Active St art: September 03, 2024 End: September 06, 2024 Dewayne Perez MD Other Provider Active Start: September 03, 2024 End: September 06, 2024 Lucille Lopez APRN Other Provider Active Start : September 03, 2024 End: September 06, 2024 Ora Orellana MD Other Provider Active Start: ebruary 2024 End: September 06, 2024 Michael Hawthorne MD Other Provider Active Start: September 03, 2024 End: September 06, 2024 Melissa Yeboah MD Other Provider Active Start: ebruary 2024 End: September 06, 2024 Kecia Cary [facility] Other Provider Active Sta rt: September 03, 2024 End: September 06, 2024 Marli Fermin MD Attending Provider Active St art: September 03, 2024 End: September 06, 2024 Team Status: Active Member Role Status Dates Agus Nation DO Primary Care Provider Active Start: September 03, 2024 Pino Rand DO Emergency Provider Active Sta rt: September 03, 2024 Tani Solano DO Admit Provider, Other Provider Act dajuan Start: September 03, 2024 Kalie Sweet MD Other Provider Active Start : September 03, 2024 Lizzy Laguerre MD Attending Provider, Other Provider Active Start: September 03, 2024 Team Status: Active Member Role Status Dates Agus Nation DO Primary Care Provider Active Start: September 01, 2024 Pino Rand DO Emergency Provider Active Sta rt: September 01, 2024 Tani Solano DO Admit Provider, Atte nding Provider Active Start: September 01, 2024 Team Status: Inactive Member Role Status Dates Agusraphael Quilesng , DO Primary Care Provider Active Ranjan Quiles MD Attending Provider Active Team Status: Inactive Member Role Status Dates Agusraphael Harrisonlong , DO Primary Care Provider Active Ranjan Quiles MD Attending Provider Active Kar Blanchard MD Other Provider Active Team Status: Inactive Member Role Status Dates Agusraphael Harrisonlong , DO Primary Care Provider Active Kar Blanchard MD Attending Provider Active Team Status: Inactive Member Role Status Dates Agusraphael Quilesng , DO Primary Care Provider Active Kar Blanchard MD Attending Provider Active Marli Fermin MD Other Provider Active Team Status: Inactive Member Role Status Dates Agusraphael Quilesng , DO Primary Care Provider Active Rojelio Max MD Attending Provider Active Team Status: Active Member Role Status Dates Agusraphael Quilesng , DO Primary Care Provider Active Laureano Taylor Jr, MD Emergency Provider Active Jennifer Mena MD Admit Provider, Attending Provide r Active Team Status: Inactive Member Role Status Dates Agusraphael Quilesng , DO Primary Care Provider Active Laureano Taylor Jr, MD Emergency Provider Active Jennifer Mena MD Admit Provider Active Shakir Tsai DO Attending Provider Active Team Status: Inactive Member Role Status Dates Agusraphael Nation , DO Primary Care Provider Active Rose Ding MD Attending Provider Active Team Status: Inactive Member Role Status Dates Agusraphael Quilesng , DO Primary Care Provider Active Pino Rand , Emergency Provider Active Hawa Sharma MD Admit Provider Active Katherine Lobato MD Other Provider Active Bro Henry MD Attending Provider Active Team Status: Inactive Member Role Status Dates Agusraphael Quilesng , DO Primary Care Provider Active Praful Yi , DO Emergency Provider Active Team Status: Inactive Member Role Status Dates Agusraphael Nation , DO Primary Care Provider Active Preston Daley PA-C Emergency Provider Active Tone Cabinet Assembler Relationship Specialty Start Date End Date Agus Nation DO [address], [place] [address] PCP - General 08/03/99 Tone Cabinet Assembler Relationship Specialty Start Date End Date Agus Nation DO [address], [place] [address] PCP - General 08/03/99 Tone Cabinet Assembler Relationship Specialty Start Date End Date Agus Nation DO [address], [place] [address] PCP - General 08/03/99 Team Status: Inactive Member Role Status Dates Agus HarrisonDO haley Primary Care Provider Active Jyoti Chu MD Attending Provider Active Team Status: Inactive Member Role Status Dates Agus Christyhaley Primary Care Provider Active Marito Powers APRN Emergency Provider Active Tone Cabinet Assembler Relationship Specialty Start Date End Date Agus Nation DO [address], [place] [address] PCP - General Family Medicine 07/31/22 Team Status: Inactive Member Role Status Dates Agus HarrisonranjitDO saumya Primary Care Provider Active Start: July 21, 2023 End: July 21, 2023 Marito Powers APRN Emergency Provider Active Start: July 21, 2023 End: July 21, 2023 Team Status: Inactive Member Role Status Dates Agus Nation DO Primary Care Provider Active Start: August 28, 2023 End: August 28, 2023 Kalie Sweet MD Attending Provider Active S tart: August 28, 2023 End: August 28, 2023 Team Status: Inactive Member Role Status Dates Agus HarrisonranjitDO saumya Primary Care Provider Active Start: September 16, 2023 End: September 16, 2023 LARRY Haynes SUPERVISOR DEHYDROGENATION-C Attending Provider Active Start: September 16, 2023 End: September 16, 2023 Tone Cabinet Assembler Relationship Specialty Start Date End Date Agus Nation DO [address], [place] [address] PCP - General Family Medicine 07/31/22 Tone Cabinet Assembler Relationship Specialty Start Date End Date Agus Nation DO [address], [place] [address] PCP - General Family Medicine 07/31/22 Tone Cabinet Assembler Relationship Specialty Start Date End Date Agus Nation DO [address], [place] [address] PCP - General Family Medicine 07/31/22 Tone Cabinet Assembler Relationship Specialty Start Date End Date Agus Nation DO [address], [place] [address] PCP - General 08/03/99 Team Status: Inactive Member Role Status Dates Agus Nation DO Primary Care Provider Active Start: October 06, 2023 End: October 06, 2023 MICHELLE Boykin Attending Provider Active Start: October 06, 2023 End: October 06, 2023 Team Status: Inactive Member Role Status Dates Agus Nation DO Primary Care Provider Active Start: October 13, 2023 End: October 13, 2023 Darek Kelley MD Attending Provider Active S tart: October 13, 2023 End: October 13, 2023 Team Status: Active Member Role Status Dates Agus Nation DO Primary Care Provider Active Start: October 15, 2023 MICHELLE Boykin Attending Provider Active Start: October 15, 2023 Team Status: Inactive Member Role Status Dates Agus Nation DO Primary Care Provider Active Start: October 20, 2023 End: October 20, 2023 Darek Kelley MD Attending Provider Active S tart: October 20, 2023 End: October 20, 2023 Team Status: Active Member Role Status Dates Agus Nation DO Primary Care Provider Active Start: October 20, 2023 Darek eKlley MD Attending Provider, Other Provider Active Start: October 20, 2023 Tone Cabinet Assembler Relationship Specialty Start Date End Date Agus Nation DO [address], [place] [address] PCP - General Family Medicine 07/31/22 Team Status: Active Member Role Status Dates Agus Nation DO Primary Care Provider Active Start: December 10, 2023 MICHELLE Boykin Attending Provider Active Start: December 10, 2023 Team Status: Inactive Member Role Status Dates Praful Yi DO Emergency Provider Active Sta rt: December 11, 2023 End: December 11, 2023 Agus Nation DO Primary Care Provider Active Start: December 11, 2023 End: December 11, 2023 Tone Cabinet Assembler Relationship Specialty Start Date End Date Agus Nation DO [address], [place] [address] PCP - General 08/03/99 Team Status: Inactive Member Role Status Dates Agus Nation DO Primary Care Provider Active Start: December 17, 2023 End: December 17, 2023 MICHELLE Boykin Attending Provider Active Start: December 17, 2023 End: December 17, 2023 Team Status: Inactive Member Role Status Dates Agus Nation DO Primary Care Provider Active Start: February 08, 2024 End: February 08, 2024 Preston Daley PA-C Emergency Provider Active Start: February 08, 2024 End: February 08, 2024 Team Status: Inactive Member Role Status Dates Agus Nation DO Primary Care Provider Active Start: February 19, 2024 End: February 19, 2024 Darek Kelley MD Attending Provider Active S tart: February 19, 2024 End: February 19, 2024 Team Status: Inactive Member Role Status Dates Agus Nation DO Primary Care Provider Active Start: March 03, 2024 End: March 03, 2024 Barbara Oneill APRN Attending Provider Active Start: March 03, 2024 End: March 03, 2024 Team Status: Active Member Role Status Dates Agus Nation DO Primary Care Provider Active Start: March 10, 2024 Barbara Oneill APRN Attending Provider Active Start: March 10, 2024 Team Status: Active Member Role Status Dates Agus Nation DO Primary Care Provider Active Start: March 14, 2024 Osvaldo Vizcarra DO Emergency Provider Active Start: March 14, 2024 Cuca Edge DO RES Active Start: March 14, 2024 Shakir Tsai DO Admit Provider, Atte nding Provider Active Start: March 14, 2024 Team Status: Inactive Member Role Status Dates Agus Nation DO Primary Care Provider Active Start: March 15, 2024 End: March 20, 2024 Osvaldo Vizcarra DO Emergency Provider Active Start: March 15, 2024 End: March 20, 2024 Cuca Edge DO RES Active Start: March 15, 2024 End: March 20, 2024 Shakir Tsai , Admit Provider, Atte nding Provider Active Start: March 15, 2024 End: March 20, 2024 Darek Kelley MD Other Provider Active Start : March 15, 2024 End: March 20, 2024 Perry Nails MD Other Provider Active Start: March 15, 2024 End: March 20, 2024 Team Status: Active Member Role Status Dates Agus Nation DO Primary Care Provider Active Start: March 15, 2024 Osvaldo Vizcarra DO Emergency Provider Active Start: March 15, 2024 Cuca Edge DO RES Active Start: March 15, 2024 Shakir Tsai DO Admit Provider, Othe r Provider Active Start: March 15, 2024 Darek Kelley MD Attending Provider, Other Provider Active Start: March 15, 2024 Team Status: Inactive Member Role Status Dates Agus Nation DO Primary Care Provider Active Start: March 10, 2024 End: March 10, 2024 Barbara Oneill APRN Attending Provider Active Start: March 10, 2024 End: March 10, 2024 Tone Cabinet Assembler Relationship Specialty Start Date End Date Agus Nation DO [address] [place] [address] PCP - General Family Medicine 04/06/24 Tone Cabinet Assembler Relationship Specialty Start Date End Date Agus Nation DO [address] [place] [address] PCP - General Family Medicine 04/06/24 Tone Cabinet Assembler Relationship Specialty Start Date End Date Agus Nation DO [address] [place] [address] PCP - General Family Medicine 04/06/24 Tone Cabinet Assembler Relationship Specialty Start Date End Date Agus Nation DO [address] [place] [address] PCP - General Family Medicine 07/31/22 Tone Cabinet Assembler Relationship Specialty Start Date End Date Agus Nation DO [address] [place] [address] PCP - General Family Medicine 07/31/22 Tone Cabinet Assembler Relationship Specialty Start Date End Date Agus Nation DO [address] [place] [address] PCP - General Family Medicine 04/06/24 Tone Cabinet Assembler Relationship Specialty Start Date End Date Agus Nation DO [address] [place] [address] PCP - General Family Medicine 04/06/24 Tone Cabinet Assembler Relationship Specialty Start Date End Date Agus Nation DO [address] [place] [address] PCP - General Family Medicine 07/31/22 Tone Cabinet Assembler Relationship Specialty Start Date End Date Agus Nation DO PCP - General 08/03/99 Rose Ding MD [address] [facility] [address] [place] [address] Continuous Drier Helper Cardiology 03/24/24 Tone Cabinet Assembler Relationship Specialty Start Date End Date Agus Nation DO [address], [place] [address] PCP - General Family Medicine 07/31/22 Tone Cabinet Assembler Relationship Specialty Start Date End Date Agus Nation DO [address], [place] [address] PCP - General Family Medicine 07/31/22 Tone Cabinet Assembler Relationship Specialty Start Date End Date Agus Nation DO [address], [place] [address] PCP - General Family Medicine 07/31/22 Tone Cabinet Assembler Relationship Specialty Start Date End Date Agus Nation DO [address] [place] [address] PCP - General Family Medicine 04/06/24 Tone Cabinet Assembler Relationship Specialty Start Date End Date ChristyranjitAgus kerns DO [address] [place] [address] PCP - General Family Medicine 04/06/24 Tone Cabinet Assembler Relationship Specialty Start Date End Date Agus Nation DO [address] [place] [address] PCP - General Family Medicine 07/31/22 Tone Cabinet Assembler Relationship Specialty Start Date End Date Agus Nation DO [address] [place] [address] PCP - General Family Medicine 04/06/24 Tone Cabinet Assembler Relationship Specialty Start Date End Date Agus Nation DO [address] [place] [address] PCP - General Family Medicine 04/06/24 Tone Cabinet Assembler Relationship Specialty Start Date End Date Agus Nation DO [address] [place] [address] PCP - General Family Medicine 07/31/22 Tone Cabinet Assembler Relationship Specialty Start Date End Date Agus Nation DO [address] [place] [address] PCP - General Family Medicine 04/06/24 Tone Cabinet Assembler Relationship Specialty Start Date End Date Agus Nation DO [address] [place] [address] PCP - General Family Medicine 04/06/24 Tone Cabinet Assembler Relationship Specialty Start Date End Date Agus Nation DO [address] [place] [address] PCP - General Family Medicine 04/06/24 Tone Cabinet Assembler Relationship Specialty Start Date End Date Agus Nation DO [address] [place] [address] PCP - General Family Medicine 04/06/24 Jacobo Velez MD [address] [place], [place] [id number] Primary Staff Physician Vascular Medicine 07/08/24 Tone Cabinet Assembler Relationship Specialty Start Date End Date Agus Nation DO [address] [place] [address] PCP - General Family Medicine 04/06/24 Jacobo Velez MD [address] [place], [place] [id number] Primary Staff Physician Vascular Medicine 07/08/24 Tone Cabinet Assembler Relationship Specialty Start Date End Date Agus Nation DO [address] [place] [address] PCP - General Family Medicine 04/06/24 Jacobo Velez MD [address] [place], [place] [id number] Primary Staff Physician Vascular Medicine 07/08/24 Tone Cabinet Assembler Relationship Specialty Start Date End Date Agus Nation DO [address] [place] [address] PCP - General Family Medicine 04/06/24 Jacobo Velez MD [address] [place] [address] Primary Staff Physician Vascular Medicine 07/08/24 Tone Cabinet Assembler Relationship Specialty Start Date End Date Agus Nation DO [address] [place] [address] PCP - General Family Medicine 04/06/24 Jacobo Velez MD [address] [place] [address] Primary Staff Physician Vascular Medicine 07/08/24 Tone Cabinet Assembler Relationship Specialty Start Date End Date Agus Nation DO [address] [place] [address] PCP - General Family Medicine 04/06/24 Jacobo Velez MD [address] [place] [address] Primary Staff Physician Vascular Medicine 07/08/24 Tone Cabinet Assembler Relationship Specialty Start Date End Date Agus Nation DO [address] [place] [address] PCP - General Family Medicine 07/31/22 Tone Cabinet Assembler Relationship Specialty Start Date End Date Agus Nation DO [address] [place] [address] PCP - General Family Medicine 07/31/22 Tone Cabinet Assembler Relationship Specialty Start Date End Date RiosAgus PCP - General 08/03/99 Rose Ding MD [address] [facility] [address] [place] [address], [place] [id number] Continuous Drier Helper Cardiology 03/24/24 Tone Cabinet Assembler Relationship Specialty Start Date End Date Agus Nation Michel [address] [place] [address] PCP - General Family Medicine 07/31/22 Tone Cabinet Assembler Relationship Specialty Start Date End Date Agus Nation DO [address] [place] [address] PCP - General Family Medicine 07/31/22 Tone Cabinet Assembler Relationship Specialty Start Date End Date Agus Natino DO [address] [place] [address] PCP - General Family Medicine 07/31/22 Tone Cabinet Assembler Relationship Specialty Start Date End Date Agus Nation DO [address] [place] [address] PCP - General Family Medicine 07/31/22 Tone Cabinet Assembler Relationship Specialty Start Date End Date Agus Nation DO [address] [place] [address] PCP - General Family Medicine 07/31/22 Tone Cabinet Assembler Relationship Specialty Start Date End Date Agus Nation DO [address] [facility] [place] [address] PCP - General Family Medicine 07/31/22 Goals (unrecognized section and content) Goals may be documented in a n alternate sectionGoals may be documented in an alternate section No data available for this sectionGoals may be documented in an alternate sectionGoals may be documented in an alternate section No data available for this section No data available for this section No data available for this sectionGoals may be documented in an alternate sectionNot on filedocumented as of this encounterGoals may be documented in an alternate sectionGoals may be documented in an alternate sectionNot on filedocumented as of this encounterNot on filedocumented as of this encounterNot on filedocumented as of this encounterNot on filedocumented as of this encounterGoals may be documented in an alternate sectionGoals may be documented in an alternate sectionGoals may be documented in an alternate sectionGoals may be documented in an alternate sectionNot on filedocumented as of this encounterNot on filedocumented as of this encounterNot on filedocumented as of this encounter No data available for this sectionNot on filedocumented as of this encounterNot on filedocumented as of this encounterNot on filedocumented as of this encounterNot on filedocumented as of this encounterNot on filedocumented as of this encounterNot on filedocumented as of this encounterNot on filedocumented as of this encounterNot on filedocumented as of this encounterNot on filedocumented as of this encounterNot on filedocumented as of this encounterNot on filedocumented as of this encounterNot on filedocumented as of this encounterNot on filedocumented as of this encounterNot on filedocumented as of this encounterGoals may be documented in an alternate sectionNot on filedocumented as of this encounterNot on filedocumented as of this encounterNot on filedocumented as of this encounterNot on filedocumented as of this encounterNot on filedocumented as of this encounterNot on filedocumented as of this encounterNot on filedocumented as of this encounter Reason for Visit (unrecogniz ed section and content) Reason Comments blood pressure check with ortho's Reason Comments Other [facility] TOÑA UPGRADE TO BI-V ICD WITH POCKET REVISION/ICD-10 Chronic systolic (congestive) heart failure/ ICD-10 Encntr for adjust and mgmt of automatic implntbl card defib Reason Comments Hypertension Specialty Diagnoses / Procedures Referred By Contac t Referred To Contact Cardiology Diagnoses Congestive heart failure, unspecified HF chronicity, unspecified heart failure type (CMS/HCC) Cardiomyopathy, ischemic Procedures Follow Up In Cardiology Ranjan Quiles MD [address] [facility] [address] [place] [address] Referral ID Status Reason Start Date Expiration Date V isits Requested Visits Authorized [id number] Authorized 05/26/2023 05/25/2024 1 1 Reason Comments Sore Throat Couple years Reason Comments Follow-up 6 months Specialty Diagnoses / Procedures Referred By Contac t Referred To Contact Diagnoses Atrial fibrillation, unspecified type (CMS/HCC) Procedures ECG 12 Lead Ranjan Quiles MD [address] [facility] [address] [place] [address] Referral ID Status Reason Start Date Expiration Date V isits Requested Visits Authorized [id number] Authorized 10/01/2023 09/30/2024 1 1 Reason Comments Med Refill Reason Comments [place] [facility] [place], defibr illator problem Specialty Diagnoses / Procedures Referred By Contac t Referred To Contact Diagnoses Atrial fibrillation, unspecified type (Multi) Procedures ECG 12 Lead Ranjan Quiles MD [address] [facility] [address] [place] [address] Referral ID Status Reason Start Date Expiration Date V isits Requested Visits Authorized [id number] Authorized 12/25/2023 12/24/2024 1 1 Specialty Diagnoses / Procedures Referred By Contac t Referred To Contact HOSP INPATIENT Diagnoses Cholecystitis Cholecystis Procedures EVAL AND TREAT - PT [facility] [address] [place] [address] Referral ID Status Reason Start Date Expiration Date Visits Re quested Visits Authorized [id number] 1 1 Reason Comments IR Inpatient Tube Appointment Request Reason Comments Appointment Reason Comments Research IRB#[id number] LARY-HF Reason Comments IR Outpatient Tube Appointment Request Specialty Diagnoses / Procedures Referred By Contac t Referred To Contact [facility] INPATIENT Diagnoses Sepsis (HCC) Septic Shock Procedures NA [facility] [address] [place] [address] Referral ID Status Reason Start Date Expiration Date Visits Re quested Visits Authorized [id number] 1 1 Reason Comments Follow-up Specialty Diagnoses / Procedures Referred By Contac t Referred To Contact Diagnoses Atrial fibrillation, unspecified type (Multi) Procedures ECG 12 Lead Ranjan Quiles MD [address] [facility] [address] [place] [address] Phone: tel: fax: Referral ID Status Reason Start Date Expiration Date V isits Requested Visits Authorized [id number] Authorized 05/27/2024 05/27/2025 1 1 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 [place] [address] Referral ID Status Reason Start Date Expiration Date V isits Requested Visits Authorized [id number] Closed PCP Requested Referral 06/07/2024 06/07/2025 1 1 Reason Comments Established Patient Specialty Diagnoses / Procedures Referred By Contac t Referred To Contact [facility] INPATIENT Diagnoses Choledocholithiasis Procedures [facility] [address] [place] [address] Referral ID Status Reason Start Date Expiration Date Visits Re quested Visits Authorized [id number] 1 1 Reason Comments Follow-up 3 month Specialty Diagnoses / Procedures Referred By Contac t Referred To Contact Cardiology Diagnoses Atrial fibrillation, unspecified type (Multi) Procedures Follow Up In Cardiology Ranjan Quiles MD [address] [facility] [address] [place] [address] Phone: tel: fax: Ranjan Quiles MD [address] [facility], [facility] [address] [place] [address] Phone: tel: fax: Referral ID Status Reason Start Date Expiration Date V isits Requested Visits Authorized [id number] Authorized 05/27/2024 05/27/2025 1 1 Reason Onset Date Comments Med Refill 12/08/2023 Reason Comments Medicare annual wellness Reason Onset Date Comments Med Refill 09/12/2024 Source Comments (unrecognize d section and content) In the event this informatio n is protected by the Federal Confidentiality of Alcohol and Drug Abuse Patient Records regulations: The Federal rules restrict any use of the information to criminally investigate or prosecute any alcohol or drug abuse patient.[facility] the event this information is protected by the Federal Confidentiality of Alcohol and Drug Abuse Patient Records regulations: The Federal rules restrict any use of the information to criminally investigate or prosecute any alcohol or drug abuse patient.[facility]In the event this information is protected by the Federal Confidentiality of Alcohol and Drug Abuse Patient Records regulations: The Federal rules restrict any use of the information to criminally investigate or prosecute any alcohol or drug abuse patient.[facility] the event this information is protected by the Federal Confidentiality of Alcohol and Drug Abuse Patient Records regulations: The Federal rules restrict any use of the information to criminally investigate or prosecute any alcohol or drug abuse patient.[facility] the event this information is protected by the Federal Confidentiality of Alcohol and Drug Abuse Patient Records regulations: The Federal rules restrict any use of the information to criminally investigate or prosecute any alcohol or drug abuse patient.[facility] the event this information is protected by the Federal Confidentiality of Alcohol and Drug Abuse Patient Records regulations: The Federal rules restrict any use of the information to criminally investigate or prosecute any alcohol or drug abuse patient.[facility] the event this information is protected by the Federal Confidentiality of Alcohol and Drug Abuse Patient Records regulations: The Federal rules restrict any use of the information to criminally investigate or prosecute any alcohol or drug abuse patient.[facility] the event this information is protected by the Federal Confidentiality of Alcohol and Drug Abuse Patient Records regulations: The Federal rules restrict any use of the information to criminally investigate or prosecute any alcohol or drug abuse patient.[facility]In the event this information is protected by the Federal Confidentiality of Alcohol and Drug Abuse Patient Records regulations: The Federal rules restrict any use of the information to criminally investigate or prosecute any alcohol or drug abuse patient.[facility] the event this information is protected by the Federal Confidentiality of Alcohol and Drug Abuse Patient Records regulations: The Federal rules restrict any use of the information to criminally investigate or prosecute any alcohol or drug abuse patient.[facility] the event this information is protected by the Federal Confidentiality of Alcohol and Drug Abuse Patient Records regulations: The Federal rules restrict any use of the information to criminally investigate or prosecute any alcohol or drug abuse patient.[facility] the event this information is protected by the Federal Confidentiality of Alcohol and Drug Abuse Patient Records regulations: The Federal rules restrict any use of the information to criminally investigate or prosecute any alcohol or drug abuse patient.[facility] the event this information is protected by the Federal Confidentiality of Alcohol and Drug Abuse Patient Records regulations: The Federal rules restrict any use of the information to criminally investigate or prosecute any alcohol or drug abuse patient.[facility] the event this information is protected by the Federal Confidentiality of Alcohol and Drug Abuse Patient Records regulations: The Federal rules restrict any use of the information to criminally investigate or prosecute any alcohol or drug abuse patient.[facility] the event this information is protected by the Federal Confidentiality of Alcohol and Drug Abuse Patient Records regulations: The Federal rules restrict any use of the information to criminally investigate or prosecute any alcohol or drug abuse patient.[facility] the event this information is protected by the Federal Confidentiality of Alcohol and Drug Abuse Patient Records regulations: The Federal rules restrict any use of the information to criminally investigate or prosecute any alcohol or drug abuse patient.[facility] the event this information is protected by the Federal Confidentiality of Alcohol and Drug Abuse Patient Records regulations: The Federal rules restrict any use of the information to criminally investigate or prosecute any alcohol or drug abuse patient.[facility] the event this information is protected by the Federal Confidentiality of Alcohol and Drug Abuse Patient Records regulations: The Federal rules restrict any use of the information to criminally investigate or prosecute any alcohol or drug abuse patient.[facility] HospitalIn the event this information is protected by the Federal Confidentiality of Alcohol and Drug Abuse Patient Records regulations: The Federal rules restrict any use of the information to criminally investigate or prosecute any alcohol or drug abuse patient.[facility] HospitalIn the event this information is protected by the Federal Confidentiality of Alcohol and Drug Abuse Patient Records regulations: The Federal rules restrict any use of the information to criminally investigate or prosecute any alcohol or drug abuse patient.[facility] the event this information is protected by the Federal Confidentiality of Alcohol and Drug Abuse Patient Records regulations: The Federal rules restrict any use of the information to criminally investigate or prosecute any alcohol or drug abuse patient.[facility] HospitalIn the event this information is protected by the Federal Confidentiality of Alcohol and Drug Abuse Patient Records regulations: The Federal rules restrict any use of the information to criminally investigate or prosecute any alcohol or drug abuse patient.[facility] HospitalIn the event this information is protected by the Federal Confidentiality of Alcohol and Drug Abuse Patient Records regulations: The Federal rules restrict any use of the information to criminally investigate or prosecute any alcohol or drug abuse patient.[facility] HospitalIn the event this information is protected by the Federal Confidentiality of Alcohol and Drug Abuse Patient Records regulations: The Federal rules restrict any use of the information to criminally investigate or prosecute any alcohol or drug abuse patient.[facility] FOR RECORDS PERTAINING TO PATIENTS WHO ARE OR HAVE BEEN ENROLLED IN A CHEMICAL DEPENDENCY/SUBSTANCEABUSE PROGRAM, SOME INFORMATION MAY BE OMITTED. This clinical summary was aggregated from multiple sources. Caution should be exercised in using it in the provision of clinical care. This summary normalizes information from multiple sources, and as a consequence, information in this document may materially change the coding, format and clinical context of patient data. In addition, data may be omitted in some cases. CLINICAL DECISIONS SHOULD BE BASED ON THE PRIMARY CLINICAL RECORDS. [facility]. provides no warranty or guarantee of the accuracy or completeness of information in this document.
[2024-09-17] MEDS: 0.9 % SODIUM CHLORIDE 1,000 ML 125 ML IV (03:09)
[2024-09-17] MEDS: ONDANSETRON PF 4 MG/2 ML VIAL IV (03:09)
[2024-09-17 03:25] LABS: Basophils Percent Auto 0.5 % (0.2-2.0); Eosinophils Absolute Auto 0.2 10^3/uL (0.0-0.7); Eosinophils Percent Auto 2.6 % (0.9-7.0); Hematocrit 35.3 % (42.0-54.0); Hemoglobin 11.7 g/dL (14.0-18.0); Immature Granulocytes Abs Auto 0.02 10^3/uL (0.00-0.03); Immature Granulocytes Pct Auto 0.3 % (0.0-0.5); Lymphocytes Absolute Auto 1.2 10^3/uL (1.2-3.8); Mean Corpuscular HGB Conc 33.1 g/dL (29.9-35.2); Mean Corpuscular Volume 102.6 fL (80.0-94.0); Mean Platelet Volume 11.7 fL (9.5-13.5); Monocytes Absolute Auto 0.9 10^3/uL (0.3-0.8); Monocytes Percent Auto 11.7 % (1.7-12.0); Neutrophils Absolute Auto 5.4 10^3/uL (1.4-6.5); Neutrophils Percent Auto 68.9 % (43.0-75.0); Platelet Count 236 10^3/uL (150-450); Red Blood Count 3.44 10^6/uL (4.70-6.10); Red Cell Distribution Width 14.9 % (11.0-15.0); White Blood Count 7.8 10^3/uL (4.0-11.0)
[2024-09-17 03:49] LABS: Alanine Aminotransferase 48 U/L (16-63); Alkaline Phosphatase 83 U/L (46-116); Anion Gap 11.7; Aspartate Amino Transferase 40 U/L (15-37); BUN Creatinine Ratio 13.8; Bilirubin Direct 0.2 mg/dL (0.0-0.2); Bilirubin Total 0.6 mg/dL (0.2-1.0); Calcium 8.4 mg/dL (8.5-10.1); Carbon Dioxide 29.1 mmol/L (21.0-32.0); Chloride 102 mmol/L (98-107); Estimated GFR (African America >60 (>=60 mL/min/1.73m^2); Estimated GFR (Non-African Ame 50 (>=60 mL/min/1.73m^2); Globulin 3.1 g/dL; Glucose 105 mg/dL (74-106); Potassium 3.8 mmol/L (3.5-5.1); Sodium 139 mmol/L (136-145); Total Protein 6.1 g/dL (6.4-8.2)
[2024-09-17 05:02] LABS: Bilirubin Urine NEGATIVE (NEGATIVE); Blood Urine NEGATIVE (NEGATIVE); Clarity Urine CLEAR (CLEAR); Color Urine YELLOW (YELLOW); Glucose Urine UA >=1000 mg/dL (NEGATIVE); Ketones Urine NEGATIVE (NEGATIVE); Leukocyte Esterase Urine NEGATIVE (NEGATIVE); Nitrite Urine NEGATIVE (NEGATIVE); Protein Urine NEGATIVE (NEG/TRACE); pH Urine 6.5 (5.0-9.0)
[2024-09-17 05:03] LABS: Urine Microscopic Indicated NO
--- NOTE | 2024-09-17 05:03 | PC.NURSE ---
Update to the [facility] staff at 0712
--- NOTE | 2024-09-17 06:09 | PC.NURSE ---
Report given to Nelda at [facility].
== END 2024-09-17 06:42 | disposition home or self-care (01) ==
PROVIDERS: Emergency Provider Emergency Medicine; PCP Family Medicine
DX: K29.70 Gastritis, unspecified, without bleeding (principal); Z90.49 Acquired absence of other specified parts of digestive tract; I50.22 Chronic systolic (congestive) heart failure; Z95.810 Presence of automatic (implantable) cardiac defibrillator; I48.0 Paroxysmal atrial fibrillation; E03.9 Hypothyroidism, unspecified
CPT/HCPCS: 36415; 74176; 80048; 80076; 81003; 83605; 83690; 85025; 96361; 96374; 99284; J2405